=== PATIENT | female | born 1995 | race Caucasian/White ===

== ENCOUNTER 2023-06-13 19:16 | Outpatient (REF) | payer OTHER, SELFPAY ==
[2023-06-19 10:20] LABS: Age Gdln ACOG Testing Note (.); IGP, rfx Aptima HPV ASCU Note (.)
== END 2023-06-13 19:17 | disposition home or self-care (01) ==
LOC: LAB 19:16
PROVIDERS: Visit Provider Obstetrics & Gynecology
DX: Z12.4 Encounter for screening for malignant neoplasm of cervix (principal); Z11.51 Encounter for screening for human papillomavirus (HPV)
CPT/HCPCS: G0145

== ENCOUNTER 2023-06-26 14:54 | Outpatient (OUT) | payer OTHER, SELFPAY ==
[2023-06-28 16:10] LABS: AFP Value 50.2 ng/mL (.); Insulin Dep Diabetes No (.); Maternal Age At EDD 29.8 yr (.); OSBR Risk 1 IN 10000 (.); Results Report (.)
== END 2023-06-26 14:55 | disposition home or self-care (01) ==
PROVIDERS: Visit Provider Obstetrics & Gynecology
DX: Z34.92 Encounter for supervision of normal pregnancy, unspecified, second trimester (principal)
CPT/HCPCS: 36415; 82105

== ENCOUNTER 2023-06-27 13:20 | Outpatient (OUT) | payer OTHER, SELFPAY ==
--- NOTE | 2023-06-27 13:21 | US_ITS ---
[address] [address] Patient Name: PAU GRIDER MRN: [id number] date: 1995 Sex: F Assigned Patient Location: US Current Patient Location: US Accession/Order Number: [id number] Exam Date: 06/27/2023 13:35 Report Date: 06/27/2023 16:06 At the request of: GEO SIERRA Procedure: US OB anatomy EXAMINATION: US OB anatomy, US OB transvaginal HISTORY: SECOND TRIMESER Z34.92 COMPARISON: No relevant comparison available. TECHNIQUE: Transabdominal sonographic examination was performed for obstetrical and evaluation. FINDINGS: Number: 1 Heart Rate: 147.0 bpm H.B. /min Amniotic Fluid Volume: Subjectively normal Placental Location: ANTERIOR with lower margin 3.6 cm from os. Cervix Length: 4 cm , closed. ANATOMY: Normal Structures -cerebellum, choroid plexus, cisterna magna, lateral cerebral ventricles, orbits, midline falx, hard palate, four-chamber heart, stomach, kidneys, bladder, umbilical cord insertion into abdomen, three-vessel cord, cervical spine, thoracic spine, lumbar spine, sacral spine, right upper extremity, left upper extremity, right lower extremity, left lower extremity. SUBOPTIMALLY SEEN: Cardiac outflow tracts. ABNORMALITIES: None BIOMETRY: BPD: 4.2 cm 18 weeks 5 days HC: 16.5 cm 19 weeks 1 days AC: 14.2 cm 19 weeks 4 days FL: 3.0 cm 19 weeks 2 days EFW:288.1 grams; 67% FL/AC: 21.1 FL/BPD: 71.2 HC/AC: 1.2 GESTATIONAL AGE: Age by EDC: 19 weeks 0 days BELL by EDC: 11/21/2023 Age by current US: 19 weeks 1 days BELL by current US: 11/20/2023 US/US OB anatomy IMPRESSION: 1. Single live intrauterine with growth detailed above. 2. Suboptimal visualization of the cardiac outflow tracts. Electronically authenticated by: ROXY TOBIAS Date: 06/27/2023 16:06
--- NOTE | 2023-06-27 13:23 | US_ITS ---
[address] [address] Patient Name: PAU GRIDER MRN: [id number] date: 1995 Sex: F Assigned Patient Location: US Current Patient Location: US Accession/Order Number: [id number] Exam Date: 06/27/2023 13:30 Report Date: 06/27/2023 16:06 At the request of: GEO SIERRA Procedure: US OB transvaginal EXAMINATION: US OB anatomy, US OB transvaginal HISTORY: SECOND TRIMESER Z34.92 COMPARISON: No relevant comparison available. TECHNIQUE: Transabdominal sonographic examination was performed for obstetrical and evaluation. FINDINGS: Number: 1 Heart Rate: 147.0 bpm H.B. /min Amniotic Fluid Volume: Subjectively normal Placental Location: ANTERIOR with lower margin 3.6 cm from os. Cervix Length: 4 cm , closed. ANATOMY: Normal Structures -cerebellum, choroid plexus, cisterna magna, lateral cerebral ventricles, orbits, midline falx, hard palate, four-chamber heart, stomach, kidneys, bladder, umbilical cord insertion into abdomen, three-vessel cord, cervical spine, thoracic spine, lumbar spine, sacral spine, right upper extremity, left upper extremity, right lower extremity, left lower extremity. SUBOPTIMALLY SEEN: Cardiac outflow tracts. ABNORMALITIES: None BIOMETRY: BPD: 4.2 cm 18 weeks 5 days HC: 16.5 cm 19 weeks 1 days AC: 14.2 cm 19 weeks 4 days FL: 3.0 cm 19 weeks 2 days EFW:288.1 grams; 67% FL/AC: 21.1 FL/BPD: 71.2 HC/AC: 1.2 GESTATIONAL AGE: Age by EDC: 19 weeks 0 days BELL by EDC: 11/21/2023 Age by current US: 19 weeks 1 days BELL by current US: 11/20/2023 US/US OB transvaginal IMPRESSION: 1. Single live intrauterine with growth detailed above. 2. Suboptimal visualization of the cardiac outflow tracts. Electronically authenticated by: ROXY TOBIAS Date: 06/27/2023 16:06
== END 2023-06-27 13:21 | disposition home or self-care (01) ==
LOC: US 13:20
PROVIDERS: Visit Provider Obstetrics & Gynecology
DX: Z34.92 Encounter for supervision of normal pregnancy, unspecified, second trimester (principal); Z3A.19 19 weeks gestation of pregnancy
CPT/HCPCS: 76805; 76817

== ENCOUNTER 2023-07-24 13:54 | Outpatient (OUT) | payer OTHER, SELFPAY ==
--- NOTE | 2023-07-24 13:55 | US_ITS ---
The [address] [address] Patient Name: PAU GRIDER MRN: [id number] date: 1995 Sex: F Assigned Patient Location: US Current Patient Location: US Accession/Order Number: [id number] Exam Date: 07/24/2023 14:00 Report Date: 07/24/2023 15:14 At the request of: GEO SIERRA Procedure: US OB incomplete anatomy EXAM: US OB incomplete anatomy HISTORY: ENCOUNTER FOR ANATOMY Z36.2 COMPARISON: Ultrasound OB anatomy 06/27/2023 TECHNIQUE: Percutaneous ultrasound. FINDINGS: Presentation: Cephalic Heart rate: 144 bpm Amniotic fluid: Subjectively normal Anatomy: Four-chamber heart, RVOT, LVOT GA: 22 weeks 6 days BELL: 11/21/2023 US/US OB incomplete anatomy IMPRESSION: 1. Single live intrauterine . 2. Adequate visualization of the four-chamber heart and cardiac outflow tracts; no appreciable abnormality. Electronically authenticated by: ROXY TOBIAS Date: 07/24/2023 15:14
== END 2023-07-24 13:55 | disposition home or self-care (01) ==
LOC: US 13:54
PROVIDERS: Visit Provider Obstetrics & Gynecology
DX: Z36.2 Encounter for other antenatal screening follow-up (principal)
CPT/HCPCS: 76815

== ENCOUNTER 2023-08-15 09:24 | Outpatient (OUT) | payer OTHER, SELFPAY ==
[2023-08-15 11:18] LABS: Basophils Percent Auto 0.2 % (0.2-2.0); Eosinophils Absolute Auto 0.2 10^3/uL (0.0-0.7); Eosinophils Percent Auto 1.5 % (0.9-7.0); Hematocrit 33.8 % (36.0-48.0); Hemoglobin 10.5 g/dL (12.0-16.0); Immature Granulocytes Abs Auto 0.08 10^3/uL (0.00-0.03); Immature Granulocytes Pct Auto 0.7 % (0.0-0.5); Lymphocytes Absolute Auto 1.7 10^3/uL (1.2-3.8); Lymphocytes Percent Auto 15.6 % (20.5-60.0); Mean Corpuscular HGB Conc 31.1 g/dL (29.9-35.2); Mean Corpuscular Hemoglobin 28.4 pg (26.7-34.0); Mean Corpuscular Volume 91.4 fL (81.0-99.0); Mean Platelet Volume 10.6 fL (9.5-13.5); Monocytes Absolute Auto 0.6 10^3/uL (0.3-0.8); Monocytes Percent Auto 5.6 % (1.7-12.0); Neutrophils Absolute Auto 8.3 10^3/uL (1.4-6.5); Neutrophils Percent Auto 76.4 % (43.0-75.0); Platelet Count 272 10^3/uL (150-450); Red Cell Distribution Width 13.1 % (11.0-15.0); White Blood Count 10.9 10^3/uL (4.0-11.0)
[2023-08-15 11:47] LABS: Glucose 1 Hour 113 mg/dL
== END 2023-08-15 09:25 | disposition home or self-care (01) ==
LOC: LAB 09:25
PROVIDERS: Visit Provider Physician Assistant
DX: Z34.92 Encounter for supervision of normal pregnancy, unspecified, second trimester (principal)
CPT/HCPCS: 36415; 82950; 85025; 86850; 86900; 86901

== ENCOUNTER 2023-09-20 13:20 | Observation (INO) | payer OTHER, SELFPAY ==
--- NOTE | 2023-09-20 13:24 | US_ITS ---
[address] [address] Patient Name: PAU GRIDER MRN: [id number] date: 1995 Sex: F Assigned Patient Location: [facility] Current Patient Location: Accession/Order Number: [id number] Exam Date: 09/20/2023 13:32 Report Date: 09/20/2023 14:41 At the request of: GEO SIERRA Procedure: US OB amniotic fluid vol EXAMINATION: US OB amniotic fluid vol HISTORY: leaking fluid COMPARISON: Ultrasound OB incomplete anatomy 07/24/2023 TECHNIQUE: Limited sonographic examination for amniotic fluid volume FINDINGS: Presentation: Cephalic Amniotic fluid volume: 14.5 cm (normal range) Heart rate: 142 bpm GA: 31 weeks 1 day BELL: 11/21/2023 US/US OB amniotic fluid vol IMPRESSION: 1. Single live intrauterine . 2. Normal amniotic fluid volume. Electronically authenticated by: ROXY TOBIAS Date: 09/20/2023 14:41
[2023-09-20 13:36] VITALS: BP 125/68; PULSE 123
[2023-09-20 13:52] LABS: Bilirubin Urine NEGATIVE (NEGATIVE); Blood Urine NEGATIVE (NEGATIVE); Clarity Urine CLEAR (CLEAR); Color Urine LT. YELLOW (YELLOW); Glucose Urine UA NEGATIVE (NEGATIVE); Ketones Urine NEGATIVE (NEGATIVE); Leukocyte Esterase Urine MODERATE (NEGATIVE); Nitrite Urine NEGATIVE (NEGATIVE); Protein Urine NEGATIVE (NEG/TRACE); Specific Gravity Urine 1.015 (1.005-1.025); Urine Microscopic Indicated YES; Urobilinogen Urine 0.2 EU/dL (0.2-1.0)
[2023-09-20 13:58] LABS: Amnisure NEGATIVE (NEGATIVE)
[2023-09-20 14:04] LABS: Bacteria Urine SMALL #/HPF (NONE SEEN); Cast Seen? NONE SEEN #/LPF (NONE SEEN); Crystals Seen? None Seen #/HPF (None Seen); Mucus Urine NONE SEEN (NONE SEEN); RBC Urine 0-2 #/HPF (0-2); Squamous Epithelial Cell Urine MODERATE #/LPF (NONE/RARE); Urine Culture Indicated YES
== END 2023-09-20 14:30 | disposition home or self-care (01) ==
LOC: FBC 13:21
PROVIDERS: Admitting Provider Obstetrics & Gynecology; Visit Provider Obstetrics & Gynecology
DX: Z03.71 Encounter for suspected problem with amniotic cavity and membrane ruled out (principal); Z3A.31 31 weeks gestation of pregnancy
CPT/HCPCS: 59025; 76815; 81001; 84112; 87086; G0378; G0379

== ENCOUNTER 2023-09-25 13:02 | Outpatient (OUT) | payer OTHER, SELFPAY ==
--- NOTE | 2023-09-25 13:04 | US_ITS ---
[address] [address] Patient Name: PAU GRIDER MRN: [id number] date: 1995 Sex: F Assigned Patient Location: US Current Patient Location: US Accession/Order Number: [id number] Exam Date: 09/25/2023 13:04 Report Date: 09/25/2023 20:58 At the request of: GEO SIERRA Procedure: US OB growth PROCEDURE: US OB growth HISTORY: SIZE INCONSISTENT WITH DATES COMPARISON: None. TECHNIQUE: Transabdominal sonographic examination was performed for obstetrical and evaluation. FINDINGS: Number: 1 Heart Rate: 136.0 bpm H.B. /min Amniotic Fluid Volume: 12.3 cm, largest pocket 3.6 cm position: Cephalic presentation, longitudinal lie Placental Location: Anterior BIOMETRY: BPD: 8.2 cm 33 weeks 0 days , 74% HC: 30.4 cm 33 weeks 5 days, 65% AC:29.2 cm 33 weeks 2 days , 84% FL: 6.2 cm 32 weeks 2 days , 47% EFW: 2088.0 grams 4 lbs. 10 oz., 75% FL/AC: 21.3 FL/BPD: 75.9 HC/AC: 1.0 GESTATIONAL AGE: Age by EDC: 31 weeks 6 days BELL by EDC: 11/21/2023 Ultrasound Age: 33 weeks 1 days Ultrasound BELL: 11/12/2023 US/US OB growth IMPRESSION: Normal interval growth *Reference: [facility] Practice Guideline for the performance of Obstetric Ultrasound Examinations, August 26, 2007. Electronically authenticated by: AMNA VALLADARES Date: 09/25/2023 20:58
== END 2023-09-25 13:03 | disposition home or self-care (01) ==
LOC: US 13:02
PROVIDERS: Visit Provider Obstetrics & Gynecology
DX: O26.843 Uterine size-date discrepancy, third trimester (principal); Z3A.33 33 weeks gestation of pregnancy
CPT/HCPCS: 76816

== ENCOUNTER 2023-10-16 13:20 | Outpatient (OUT) | payer OTHER, SELFPAY ==
--- NOTE | 2023-10-16 13:23 | US_ITS ---
[address] [address] Patient Name: PAU GRIDER MRN: [id number] date: 1995 Sex: F Assigned Patient Location: US Current Patient Location: US Accession/Order Number: [id number] Exam Date: 10/16/2023 13:23 Report Date: 10/16/2023 15:31 At the request of: GEO SIERRA Procedure: US OB growth EXAMINATION: US OB growth HISTORY: SIZE INCONSISTENT WITH DATES COMPARISON: Ultrasound OB growth 09/25/2023 FINDINGS: Heart Rate: 145.0 bpm Number: 1.0 Position: CEPHALIC Amniotic Fluid Volume: 13.3 cm Maximum Vertical Pocket: 5.7 cm BIOMETRY: BPD: 8.8 cm cm; 35 weeks 3 days; 69% HC: 32.1 cmcm; 36 weeks 1 days ; 49% AC: 33.1 cm cm; 37 weeks 0 days; 96% FL: 6.9 cm cm; 35 weeks 2 days; 55% EFW: 2906.4 grams; 85% FL/AC: 20.8 FL/BPD: 78.4 HC/AC: 1.0 GESTATIONAL AGE: Age by EDC: 34 weeks 6 days BELL by EDC: 11/21/2023 Age by US: 36 weeks 0 days BELL by US: 11/13/2023 US/US OB growth IMPRESSION: 1. Single live intrauterine with growth detailed above. Electronically authenticated by: ROXY TOBIAS Date: 10/16/2023 15:31
== END 2023-10-16 13:21 | disposition home or self-care (01) ==
LOC: US 13:20
PROVIDERS: Visit Provider Obstetrics & Gynecology
DX: O26.843 Uterine size-date discrepancy, third trimester (principal); Z3A.34 34 weeks gestation of pregnancy
CPT/HCPCS: 76816

== ENCOUNTER 2023-10-24 19:47 | Outpatient (REF) | payer OTHER, SELFPAY | END 2023-10-24 19:48 | disposition home or self-care (01) | LOC: LAB 19:47 | PROVIDERS: Visit Provider Obstetrics & Gynecology | DX: Z34.93 Encounter for supervision of normal pregnancy, unspecified, third trimester (principal) | CPT/HCPCS: 87081 ==

== ENCOUNTER 2023-10-27 13:00 | Observation (INO) | payer OTHER, SELFPAY ==
[2023-10-27 13:15] VITALS: BP 111/63; PULSE 120
--- NOTE | 2023-10-27 15:16 | P.OBPN_ITS ---
OB - PN: Subj Subjective Patient comments: other (STATES HAVING CONTRACTIONS HOWEVER NOT PAINFUL. HAD RECENT INTERCOURSE) Exam Constitutional Vital Signs, click to edit/add: Last Vital Signs Pulse 120 H 10/27/23 13:15 BP 111/63 10/27/23 13:15 Documenting provider has reviewed patient's vital signs: yes Common normals: no apparent distress and oriented x3 General appearance: comfortable HENMT Common normals: normocephalic and head/scalp atraumatic Eye Pupil: PERRL and accommodation reflex normal Neck & C-Spine Common normals: full ROM and supple Respiratory Common normals: normal respiratory effort Cardio Common normals: regular rate and regular rhythm GI Common normals: Normal to inspection, nondistended, normoactive bowel sounds present, soft to palpation and non-tender Common normals: no CVA tenderness Extremity Common normals: normal to inspection, full ROM and no calf tenderness Neuro Common normals: CN's II-XII intact bilaterally Sensorium/orientation: oriented to person, oriented to place and oriented to time Psych Common normals: mental status grossly normal, thought process normal, cooperative and affect normal OB - PN: A/P Assessment and Plan (1) and not yet delivered: Assessment and Plan: PRIOR CS, 36.6 WEEKS, TRIAGE PATIENT FOR CONTRACTIONS, HISTORY OF CS, PLANS REPEAT CS AT [address] SIERRA, HAD RECENT INTERCOURSE, CERVIX NOT CHANGING (2) Irregular contractions: Assessment and Plan: AWAITING URINALYSIS RESULTS, CONTRACTIONS IRREGULAR AND NOT PAINFUL AND NOT CHANGING CERVIX. FHR REASSURRING Plan EXPLAINED THE ETIOLOGY OF CONTRACTIONS WHEN NOT RELATED TO LABOR. WILL IV HYDRATE AND GIVE TERBUTALINE 20 MCG TIMES TWO 20 MIN APART. LIKELY CONTRACTIONS FROM RECENT INTERCOURSE HOWEVER NOT CHANGING CERVIX. WILL TREAT RESULTS OF URIN ALYSIS INDICATED. WILL SEND HOME IF CONTRACTIONS LESS THAN 6 IN ONE HOUR Time Spent with Patient Time: Total time spent is greater than 50% in coordination of care (as documented) at patient's floor/unit and/or counseling patient: Total time spent with greater than 50% in coordination of care (as documented) at patient's floor/unit and/or counseling patient: less than 15 minutes
[2023-10-27] MEDS: 0.9 % SODIUM CHLORIDE 1,000 ML 999 ML IV (15:28)
[2023-10-27] MEDS: TERBUTALINE SULFATE 1 MG/ML VIAL 0.25 MG SUBQ (15:30)
--- NOTE | 2023-10-27 15:36 | PC.NURSE ---
1515: Dr Metcalf at bedside and talks with patient and significant other about plan of care. Patient admits to intercourse last night and orders received from physician and reviewed with patient. 1525: IV started on 1st attempt in left AC and 1000 ml NS infusing at 999 ml/hr per infusion pump. 1530: Terbutaline 0.25mg sq right arm. 1538: up to bathroom and voids.
[2023-10-27 16:03] VITALS: BP 132/69; PULSE 125
--- NOTE | 2023-10-27 16:12 | PC.NURSE ---
1555: patient refuses subsequent doses of terbutaline and HR 125- not given.
== END 2023-10-27 17:20 | disposition home or self-care (01) ==
PROVIDERS: Admitting Provider Obstetrics & Gynecology; Visit Provider Obstetrics & Gynecology
DX: O47.9 False labor, unspecified (principal); Z3A.00 Weeks of gestation of pregnancy not specified
CPT/HCPCS: 59025; 96372; G0378; G0379

== ENCOUNTER 2023-11-02 12:50 | Inpatient (IN) | payer OTHER, SELFPAY ==
[2023-11-02] VITALS (33 sets, daily range): BP systolic 102–145; BP diastolic 56–80; PULSE 79–141; RESP 14–23; TEMP 36.2–36.8; O2SAT 96–100
[2023-11-02 13:25] LABS: Bilirubin Urine NEGATIVE (NEGATIVE); Blood Urine NEGATIVE (NEGATIVE); Clarity Urine SL CLOUDY (CLEAR); Color Urine LT. YELLOW (YELLOW); Glucose Urine UA 100 mg/dL (NEGATIVE); Ketones Urine NEGATIVE (NEGATIVE); Leukocyte Esterase Urine MODERATE (NEGATIVE); Nitrite Urine NEGATIVE (NEGATIVE); Protein Urine NEGATIVE (NEG/TRACE); Specific Gravity Urine <=1.005 (1.005-1.025); Urobilinogen Urine 0.2 EU/dL (0.2-1.0)
[2023-11-02 13:28] LABS: Urine Microscopic Indicated YES
[2023-11-02 13:33] LABS: Bacteria Urine MODERATE #/HPF (NONE SEEN); Cast Seen? NONE SEEN #/LPF (NONE SEEN); Crystals Seen? None Seen #/HPF (None Seen); Mucus Urine NONE SEEN (NONE SEEN); RBC Urine 0-2 #/HPF (0-2); Squamous Epithelial Cell Urine MODERATE #/LPF (NONE/RARE); Urine Culture Indicated YES; WBC Urine 20-50 #/HPF (NONE SEEN)
[2023-11-02 13:50] LABS: Amphetamine Screen Urine NEGATIVE (NEGATIVE); Barbiturates Screen Urine NEGATIVE (NEGATIVE); Benzodiazepines Screen Urine NEGATIVE (NEGATIVE); Buprenorphine Screen Urine NEGATIVE (NEGATIVE); Cannabinoid Screen Urine NEGATIVE (NEGATIVE); Cocaine Screen Urine NEGATIVE (NEGATIVE); Methadone Screen Urine NEGATIVE (NEGATIVE); Methamphetamines Screen Urine NEGATIVE (NEGATIVE); Opiate Screen Urine NEGATIVE (NEGATIVE); Oxycodone Screen Urine NEGATIVE (NEGATIVE); Phencyclidine Screen Urine NEGATIVE (NEGATIVE); Tricyclic Antidepressant Urine NEGATIVE (NEGATIVE)
[2023-11-02 14:03] LABS: Basophils Percent Auto 0.2 % (0.2-2.0); Eosinophils Percent Auto 0.2 % (0.9-7.0); Hematocrit 35.5 % (36.0-48.0); Hemoglobin 11.1 g/dL (12.0-16.0); Immature Granulocytes Abs Auto 0.06 10^3/uL (0.00-0.03); Immature Granulocytes Pct Auto 0.5 % (0.0-0.5); Lymphocytes Absolute Auto 1.9 10^3/uL (1.2-3.8); Lymphocytes Percent Auto 15.3 % (20.5-60.0); Mean Corpuscular HGB Conc 31.3 g/dL (29.9-35.2); Mean Corpuscular Hemoglobin 25.9 pg (26.7-34.0); Mean Corpuscular Volume 82.8 fL (81.0-99.0); Mean Platelet Volume 10.9 fL (9.5-13.5); Monocytes Absolute Auto 0.6 10^3/uL (0.3-0.8); Monocytes Percent Auto 5.2 % (1.7-12.0); Neutrophils Absolute Auto 9.5 10^3/uL (1.4-6.5); Neutrophils Percent Auto 78.6 % (43.0-75.0); Platelet Count 302 10^3/uL (150-450); Red Blood Count 4.29 10^6/uL (4.20-5.40); Red Cell Distribution Width 14.6 % (11.0-15.0); White Blood Count 12.1 10^3/uL (4.0-11.0)
[2023-11-02] MEDS: 0.9 % SODIUM CHLORIDE 1,000 ML 1000 ML IV (14:08)
[2023-11-02] MEDS: CITRIC ACID/SODIUM CITRATE 30 ML SOLUTION ORACIT SHOHL'S SOLN PO (14:09)
[2023-11-02] MEDS: FAMOTIDINE/PF 20 MG/2 ML VIAL IV (14:10)
[2023-11-02] MEDS: METOCLOPRAMIDE HCL 10 MG/2 ML VIAL IVP (14:10)
[2023-11-02] MEDS: CEFAZOLIN SODIUM/DEXTROSE,ISO 2 GM/50 ML PIGGYBACK IV ×2 (14:16→21:01)
[2023-11-02] MEDS: LACTATED RINGER'S SOLUTION 1,000 ML 50 ML IV (15:04)
--- NOTE | 2023-11-02 15:18 | PM.ONB ---
Brief Operative Note Date of procedure: 11/02/23 Pre-op diagnosis: iup at 37 3/7wks, previous c/s, active labor Post-op diagnosis: same as pre-op Procedure: NAME OF PROCEDURE: [ section ] PROCEDURE: Patient was taken back to the Operating Room where she was given a spinal anesthesia with Duramorph without difficulty. She was prepped and draped in the normal sterile fashion. A Pfannenstiel skin incision was then made 2 cm above the symphysis pubis and carried down to underlying rectus fascia using a Bovie. The fascia was incised in the midline and extended laterally using Page scissors. Two Isabel clamps were placed on the superior aspect of the fascia and dissected off the underlying rectus muscles. The same was performed on the inferior aspect as well. The muscles were then in the midline. Peritoneum was identified and entered bluntly. The peritoneum was then extended superiorly and inferiorly with good visualization of the bladder. The bladder blade was inserted. A low transverse incision was made on the patient's uterus and extended laterally digitally. The infant was then delivered atraumatically after the bladder blade was removed in the cephalic position. The cord was clamped and cut. Cord blood was obtained. The infant was handed off to awaiting team. The patient's placenta was spontaneously delivered. The uterus was then exteriorized. The uterus was cleared of all clots and debris. The bladder blade was reinserted. The patient's uterine incision was closed using #0 Vicryl in a running lock fashion. Excellent hemostasis was assured. The uterus was then returned to the patient's abdomen. The patient's abdomen was copiously irrigated using warm saline. Peritoneal gutters were cleared of all clots and debris. Again excellent hemostasis was assured. The patient's peritoneum was closed using 3-0 Vicryl in a running fashion. The patient's fascia was closed using #0 Vicryl in a running fashion. The patient's skin was closed using 4-0 Vicryl subcuticularly. The patient tolerated the procedure well. Sponge, lap, and needle counts were correct x2. The patient was taken to the Recovery Room in stable condition. Anesthesia: spinal Surgeon: Clyde Nelson Grain Cleaner And Transfer Operator: Homa Hsieh Estimated blood loss (mL): 600 Pathology: none sent Condition: stable Disposition: floor
--- NOTE | 2023-11-02 15:24 | P.OBPRC_ITS ---
Procedure Pre-op/Post-op diagnoses: Pre-Op/Post-Op Diagnoses Operation Date: 11/02/23 14:30 <No data on this case meets the specified criteria> Procedure: Procedures Operation Date: 11/02/23 14:30 Actual Procedure Side Surgeon p Not Applicable Clyde Nelson DO Correctional Therapy Teacher: Homa Hsieh Estimated blood loss (mL): 575 Disposition: PACU Anesthesia type: Spinal
[2023-11-02] MEDS: BUPIVACAINE HCL 0.5% PF 50 MG/10 ML VIAL 20 ML INJ (15:36)
[2023-11-02] MEDS: OXYTOCIN/0.9 % SODIUM CHLORIDE 20 UNITS/1,000 ML PLAST..BAG 200 UNIT IV (16:06)
--- NOTE | 2023-11-02 18:02 | PC.NURSE ---
Valentine catheter placed in OR per OR staff.
[2023-11-02] MEDS: KETOROLAC TROMETHAMINE 30 MG/ML VIAL IVP (18:12)
--- NOTE | 2023-11-02 20:54 | PC.NURSE ---
1918- OB care provider notified of pt request for medications for anxiety. orders for 20mg Celexa PO daily given. orders confirmed and read back.
[2023-11-03] VITALS (8 sets, daily range): BP systolic 106–135; BP diastolic 72–88; PULSE 86–101; RESP 16–18; TEMP 36.5–37.2; O2SAT 100
[2023-11-03] MEDS: KETOROLAC TROMETHAMINE 30 MG/ML VIAL IVP ×2 (00:10→06:35)
[2023-11-03 06:04] LABS: Basophils Percent Auto 0.2 % (0.2-2.0); Eosinophils Absolute Auto 0.1 10^3/uL (0.0-0.7); Eosinophils Percent Auto 0.4 % (0.9-7.0); Hematocrit 28.9 % (36.0-48.0); Hemoglobin 8.8 g/dL (12.0-16.0); Immature Granulocytes Abs Auto 0.12 10^3/uL (0.00-0.03); Immature Granulocytes Pct Auto 0.7 % (0.0-0.5); Lymphocytes Absolute Auto 3.4 10^3/uL (1.2-3.8); Lymphocytes Percent Auto 18.4 % (20.5-60.0); Mean Corpuscular HGB Conc 30.4 g/dL (29.9-35.2); Mean Corpuscular Hemoglobin 25.7 pg (26.7-34.0); Mean Corpuscular Volume 84.3 fL (81.0-99.0); Mean Platelet Volume 10.8 fL (9.5-13.5); Monocytes Absolute Auto 1.6 10^3/uL (0.3-0.8); Monocytes Percent Auto 8.9 % (1.7-12.0); Neutrophils Percent Auto 71.4 % (43.0-75.0); Platelet Count 291 10^3/uL (150-450); Red Blood Count 3.43 10^6/uL (4.20-5.40); Red Cell Distribution Width 14.6 % (11.0-15.0); White Blood Count 18.2 10^3/uL (4.0-11.0)
[2023-11-03] MEDS: DOCUSATE SODIUM 100 MG CAPSULE PO ×2 (08:42→21:09)
--- NOTE | 2023-11-03 11:14 | PM.OBPN ---
OB - PN: Subj Subjective Patient comments: no complaints and pain well controlled [place] status: doing well Exam Constitutional Vital Signs, click to edit/add: Last Vital Signs Temp 98.5 F 11/03/23 05:45 Pulse 86 11/03/23 05:45 Resp 16 11/03/23 08:45 BP 126/86 11/03/23 08:44 Pulse Ox 100 11/03/23 08:45 O2 Del Method Room Air 11/03/23 08:45 Documenting provider has reviewed patient's vital signs: yes Common normals: no apparent distress Respiratory Common normals: normal respiratory effort and clear to auscultation bilaterally Cardio Common normals: regular rate and regular rhythm GI Common normals: Normal to inspection, nondistended, normoactive bowel sounds present Extremity Common normals: no calf tenderness Results Labs Labs: Short CBC 11/02/23 11/03/23 Range/Units 13:56 05:56 WBC 12.1 H 18.2 H (4.0-11.0) 10^3/uL Hgb 11.1 L 8.8 L (12.0-16.0) g/dL Hct 35.5 L 28.9 L (36.0-48.0) % Plt Count 302 291 (150-450) 10^3/uL Urine 11/02/23 Range/Units 12:55 Urine Color Lt. yellow (YELLOW) Urine Clarity Sl cloudy (CLEAR) Urine pH 6.0 (5.0-9.0) Ur Specific [place] <=1.005 A (1.005-1.025) Urine Protein Negative (NEG/TRACE) mg/dL Urine Glucose (UA) 100 A (NEGATIVE) mg/dL OB - PN: A/P Plan - day: 1 Plan: routine postop care Time Spent with Patient Time: Total time spent is greater than 50% in coordination of care (as documented) at patient's floor/unit and/or counseling patient: Total time spent with greater than 50% in coordination of care (as documented) at patient's floor/unit and/or counseling patient: less than 15 minutes
[2023-11-03] MEDS: IBUPROFEN 400 MG TABLET 800 MG PO ×2 (13:15→21:09)
--- NOTE | 2023-11-03 18:57 | RESP.RT ---
done per nursing
--- NOTE | 2023-11-03 19:07 | PC.NURSE ---
Report given to Prema Ibarra RN
[2023-11-03] MEDS: ACETAMINOPHEN 500 MG TABLET 1000 MG PO (22:49)
[2023-11-04] MEDS: IBUPROFEN 400 MG TABLET 800 MG PO ×2 (05:32→13:22)
[2023-11-04] MEDS: DOCUSATE SODIUM 100 MG CAPSULE PO (08:17)
[2023-11-04] MEDS: ACETAMINOPHEN 500 MG TABLET 1000 MG PO (10:05)
[2023-11-04 10:31] VITALS: BP 119/75; RESP 18; TEMP 36.6; O2SAT 100
--- NOTE | 2023-11-04 12:06 | P.OBPN_ITS ---
OB - PN: Subj Subjective Patient comments: no complaints and pain well controlled [place] status: doing well Exam Constitutional Vital Signs, click to edit/add: Last Vital Signs Temp 97.9 F 11/04/23 10:31 Pulse 101 H 11/03/23 22:39 Resp 18 11/04/23 10:31 BP 119/75 11/04/23 10:31 Pulse Ox 100 11/04/23 10:31 O2 Del Method Room Air 11/04/23 10:31 Documenting provider has reviewed patient's vital signs: yes Common normals: no apparent distress Respiratory Common normals: normal respiratory effort and clear to auscultation bilaterally Cardio Common normals: regular rate and regular rhythm GI Common normals: Normal to inspection, nondistended, normoactive bowel sounds present Extremity Common normals: normal to inspection and no calf tenderness OB - PN: A/P Plan - day: 2 Plan: routine postop care, discharge home and follow up 6 weeks Time Spent with Patient Time: Total time spent is greater than 50% in coordination of care (as documented) at patient's floor/unit and/or counseling patient: Total time spent with greater than 50% in coordination of care (as documented) at patient's floor/unit and/or counseling patient: less than 15 minutes
--- NOTE | 2023-11-09 | DS_ITS ---
DISCHARGE DATE: 11/09/2023 PRIMARY DIAGNOSES: 1. Intrauterine at 37 3/7 weeks. 2. Previous . 3. Active labor. PROCEDURE: section. HOSPITAL COURSE: As expected. Please see chart for full details. LABORATORY DATA: Please see chart. COMPLICATIONS: None. DISCHARGE CONDITION: Stable. CONSULTATION: Anesthesia. DISCHARGE INSTRUCTIONS: 1. Diet: Regular. 2. Medications: a. Percocet 5/325 one to two p.o. every 4-6 hours p.r.n. pain. b. Motrin 800 one p.o. every 8 hours p.r.n. pain. 3. Followup in one week. Restrictions: Pelvic rest for 6 weeks. No heavy lifting[address] May drive when pain free and no longer on narcotics. MTDD
== END 2023-11-04 14:00 | disposition home or self-care (01) | DRG 540 ==
PROVIDERS: Admitting Provider Obstetrics & Gynecology; Visit Provider Obstetrics & Gynecology
PROC: 10D00Z1 Extraction of Products of Conception, Low, Open Approach (ICD-10-PCS; CPT 59514; principal; 2023-11-02 14:30)
DX: O34.211 Maternal care for low transverse scar from previous cesarean delivery (principal); O75.82 Onset (spontaneous) of labor after 37 completed weeks of gestation but before 39 completed weeks gestation, with delivery by (planned) cesarean section; Z3A.37 37 weeks gestation of pregnancy; Z37.0 Single live birth; O99.344 Other mental disorders complicating childbirth; F41.9 Anxiety disorder, unspecified; F32.A Depression, unspecified
CPT/HCPCS: 36415; 59025; 59050; 80307; 81001; 85025; 86850; 86900; 86901; 87086; 94667; 96374; 96375; 96376

== ENCOUNTER 2024-04-07 14:25 | Outpatient (RCR) | payer OTHER, SELFPAY ==
[2024-04-07 16:08] LABS: HCG Quantitative <1 mIU/mL
[2024-04-09 13:55] LABS: HCG Quantitative <1 mIU/mL
== END 2024-04-25 08:43 | disposition home or self-care (01) ==
LOC: LAB 14:25
PROVIDERS: PCP Family Medicine; Visit Provider Obstetrics & Gynecology
DX: N92.6 Irregular menstruation, unspecified (principal)
CPT/HCPCS: 36415; 84702

== ENCOUNTER 2024-04-09 11:39 | Outpatient (OUT) | payer OTHER, SELFPAY ==
--- NOTE | 2024-04-09 11:44 | US_ITS ---
[address] [address] Patient Name: PAU GRIDER MRN: [id number] date: 1995 Sex: F Assigned Patient Location: [facility] Current Patient Location: LAB Accession/Order Number: [id number] Exam Date: 04/09/2024 11:45 Report Date: 04/09/2024 13:22 At the request of: GEO SIERRA Procedure: US pelvis transvaginal EXAMINATION: US pelvis transvaginal HISTORY: MISSED MENSES COMPARISON: No relevant comparison available. FINDINGS: Transvaginal images No intrauterine or ectopic The uterus is normal in size, contour and myometrial echotexture measuring 10.1 x 4.2 x 8.0 cm. No focal myometrial mass The right ovary is normal in appearance measuring 3.2 x 1.8 x 2.7 cm. Normal color flow The left ovary is not visualized No free fluid US/US pelvis transvaginal IMPRESSION: Nonvisualization of the left ovary No intrauterine or ectopic in the visualized pelvis Electronically authenticated by: AMNA VALLADARES Date: 04/09/2024 13:22
--- OUTSIDE RECORDS SUMMARY | 2024-04-09 11:59 | XMS_ITS | CCD ---
Author Organization [facility] Care Team Providers Care Speech And Language Tutor Name Role Phone Unavailable Primary Care Provider Unavailabl e POOL, REMA E Attending Unavailable POOL, REMA E Admitting Unavailable OBRIEN, CONCETTA WELLS Admitting Unavailabl e OBRIEN, CONCETTA WELLS Attending Unavailabl e OBRIEN, CONCETTA WELLS Attending Unavailabl e OBRIEN, CONCETTA WELLS Admitting Unavailabl e ALIDA ALCALA Attending Unavailable CAITIE, CHANELL Attending Unavailable JOANN, XENA Attending Unavailable STAR NÚÑEZ Attending Unavailable FREDC, DR ALLRED Primary Care Unavailable BELLA, DR CARMELA Templeton Admitting Unavailabl e REINECK, DR CARMELA Templeton Attending Unavailabl e GRECHNY ., MEÑO BAUTISTA Consulting Unavailabl e MARKER ., DR LUA Admitting Unavailable MARKER ., DR LUA Attending Unavailable MARKER ., DR LUA Consulting Unavailable MISC, DR ALLRED Primary Care Unavailable JANICE KAUFMAN Consulting Unavailable REQUEST, NONE LISTED Primary Care Unavaila ble RIGO ., DR GUARDADO Admitting Unavailable RIGO ., DR GUARDADO Attending Unavailable REQUEST, NONE LISTED Primary Care Unavaila ble RIGO ., DR GUARDADO Consulting Unavailable RIGO ., DR GUARDADO Admitting Unavailable RIGO ., DR GUARDADO Attending Unavailable MISC, DR ALLRED Primary Care Unavailable RIGO ., DR GUARDADO Admitting Unavailable RIGO ., DR GUARDADO Attending Unavailable RIGO ., DR GUARDADO Consulting Unavailable MISC, DR ALLRED Primary Care Unavailable RIGO ., DR GUARDADO Admitting Unavailable RIGO ., DR GUARDADO Attending Unavailable RIGO ., DR GUARDADO Consulting Unavailable MISC, DR ALLRED Primary Care Unavailable RIGO ., DR GUARDADO Admitting Unavailable RIGO ., DR GUARDADO Attending Unavailable VALERA, DR AMNA Ames Consulting Unavailable RIGO ., DR GUARDADO Consulting Unavailable REQUEST, DR NONE LISTED Primary Care Unavaila ble RIGO ., DR GUARDADO Admitting Unavailable RIGO ., DR GUARDADO Attending Unavailable REQUEST, DR NONE LISTED Primary Care Unavaila ble RIGO ., DR GUARDADO Consulting Unavailable RIGO ., DR GUARDADO Admitting Unavailable RIGO ., DR GUARDADO Attending Unavailable RIGO ., DR GUARDADO Consulting Unavailable REQUEST, DR NONE LISTED Primary Care Unavaila ble RIGO ., DR GUARDADO Admitting Unavailable RIGO ., DR GUARDADO Attending Unavailable ZIEBER, DR ROXY Thomas Consulting Unavailable REQUEST, DR NONE LISTED Consulting Unavaila ble PAY ., DR ACUNA Admitting Unavailable REQUEST, NONE LISTED Primary Care Unavaila ble PAY ., DR ACUNA Attending Unavailable PAY ., DR ACUNA Consulting Unavailable LEIF, MARYCRUZ Consulting Unavailable JEANETH, ANANT Consulting Unavailable BLAINE, DR AMNA Ames Consulting Unavailable MARIO ., ARSH Admitting Unavailable MARIO ., ARSH Attending Unavailable [facility] [place] Primary Care Unavailable MARIO ., ARSH Consulting Unavailable RIGO, GEO Attending Unavailable JYOTHI, SINA Attending Unavailable MIGUEL CARBONE Attending Unavailable RIGO, GEO Attending Unavailable JYOTHI, SINA Attending Unavailable RIGO, GEO Attending Unavailable RIGO, GEO Attending Unavailable RIGO, GEO Attending Unavailable JYOTHI, SINA Attending Unavailable Allergies Allergy Classification Reported Allergen(s) Allergy Type Date of Onset Reaction(s) Facility Latex (5 sources) Latex Substance Allergy 1 [facility] (1 source) Latex Propensity to adverse reactions to drug [address] [facility] Work Phone: (1 source) Latex Drug allergy (disorder) [facility] Repository Medications Current Medications Medication Drug Class(es) Dates Sig (Normalized) Sig (Original) Calcium Carbonate Antacid (TUMS PO) (5 sources) Calcium Carbonat e Antacid (TUMS PO) Take by mouth 0 Active calcium chloride 0.0014 meq/ml / potassium chloride 0.004 meq/ml / sodium chloride 0.103 meq/ml / sodium lactate 0.028 meq/ml injectable solution (1 source) Start: 05-18-2021 lactated ringers infusion cephalexin 500 mg oral capsule (3 sources) Cephalosporin Antibacterial Start: 02-28-2021 End: 03-07-2021 take 1 capsule by mouth three times daily cephALEXin (KEFLEX) 500 MG capsule Take 1 capsule by mouth 3 times daily for 7 days 21 capsule 0 02/28/2021 03/07/2021 Active take 1 capsule by mouth twice da kaila cephALEXin (KEFLEX) 500 MG capsule Take 500 mg by mouth 2 times daily 0 Active 2 ml famotidine 10 mg/ml injection (1 source) Histamine-2 Receptor Antagonist Start: 04-14-2021 End: 04-14-2021 famotidine (PEPCID) injection 20 mg Start: 04-14-2021 End: 04-14-2021 famotidine (PEPCID) injectio n 20 mg Vit-Fe Fumarate-FA ( VITAMIN PO) (5 sources) take 1 tablet by mouth once daily Vit-Fe Fumarate-FA ( VITAMIN PO) Take 1 tablet by mouth daily 0 Active 1 ml promethazine hydrochloride 25 mg/ml injection (1 source) Phenothiazine Start: 04-14-2021 End: 04-14-2021 promethazine (PHENERGAN) injection 12.5 mg Start: 04-14-2021 End: 04-14-2021 promethazine (PHENERGAN) inj ection 12.5 mg 50 ml sodium chloride 9 mg/m l injection (1 source) Start: 04-14-2021 End: 04-14-2021 0.9 % sodium chloride bolus Start: 04-14-2021 End: 04-14-2021 0.9 % sodium chloride bolus Completed/Discontinued Medications Medication Drug Class(es) Dates Sig (Normalized) Sig (Original) acetaminophen 500 mg oral tablet (1 source) Start: 05-18-2021 End: 05-18-2021 acetaminophen (TYLENOL) tablet 1,000 mg ceFAZolin 2000 mg injection (1 source) Cephalosporin Antibacterial Start: 05-18-2021 End: 05-18-2021 ceFAZolin (ANCEF) 2000 mg in dextrose 3 % 50 mL IVPB (duplex) 2 ml ondansetron 2 mg/ml injection (1 source) Serotonin-3 Receptor Antagonist Start: 05-18-2021 End: 05-18-2021 ondansetron (ZOFRAN) injection 4 mg Problems Active Problems Problem Classification Problem Date Documented Da te Episodic/Chronic Abdominal pain (7 sources) Abdominal pain; Translations: [Unspecified abdominal pain] Onset: 07-06-2022 Episodic Anxiety disorders (1 source) Anxiety disorder, unspecified; Translations: [ANXIETY DISORDER UNSPECIFIED] Onset: 10-11-2022 Chronic Esophageal disorders (1 source) Gastro-esophageal reflux disease without esophagitis; Translations: [GERD WITHOUT ESOPHAGITIS] Onset: 10-11-2022 Chronic Menstrual disorders (5 sources) Irregular menstruation, unspecified; Translations: [IRREGULAR MENSTRUATION UNSPECIFIED] Onset: 04-06-2023 Chronic Other complications of (1 source) Nausea and vomiting; Translations: [Vomiting of , unspecified] Episodic Other complications of (3 sources) Reduced movement; Translations: [Decreased movements, unspecified trimester, not applicable or unspecified] Onset: 05-24-2021 Episodic Other complications of (3 sources) Other specified related conditions, first trimester; Translations: [OTH SPEC PREG RELATED COND 1ST TRI] Onset: 04-13-2023 Episodic Other complications of (1 source) related conditions, unspecified, first trimester; Translations: [ RELATED COND UNS 1ST TRI] Onset: 04-16-2023 Episodic Other connective tissue disease (1 source) Swelling of lower limb; Translations: [Other specified soft tissue disorders] Episodic Other and delivery including normal (6 sources) Intrauterine ; Translations: [Encounter for supervision of other normal , first trimester] Onset: 04-16-2023 Episodic Residual codes; unclassified (1 source) 8 weeks gestation of ; Translations: [8 WEEKS GESTATION OF ] Onset: 04-16-2023 Episodic Past or Other Problems Problem Classification Problem Date Documented Da te Episodic/Chronic Hemorrhage during ; abruptio placenta; placenta previa (3 sources) Hemorrhage in early , unspecified; Translations: [HEMORRHAGE EARLY UNS] Onset: 10-13-2022 Episodic Immunizations and screening for infectious disease (1 source) Encounter for screening for human papillomavirus (HPV); Translations: [ENC SCREENING HUMAN PAPILLOMAVIRUS] Onset: 07-06-2022 Episodic Nonspecific chest pain (4 sources) Chest pain, unspecified; Translations: [CHEST PAIN UNSPECIFIED] Onset: 10-09-2022 Episodic Other complications of (1 source) Other specified related conditions, unspecified trimester; Translations: [OTH SPEC PREG RELATED COND UNS TRI] Onset: 10-11-2022 Episodic Other complications of (1 source) Unspecified infection of urinary tract in , unspecified trimester; Translations: [UNS INF URINARY TRACT PREG UNS TRI] Onset: 10-11-2022 Episodic Other complications of (1 source) Other mental disorders complicating , unspecified trimester; Translations: [OTH MENTAL D/O COMP PREG UNS TRI] Onset: 10-11-2022 Episodic Other complications of (1 source) Diseases of the digestive system complicating , unspecified trimester; Translations: [DZ DIGESTIVE SYS COMP PREG UNS TRI] Onset: 10-11-2022 Episodic Other gastrointestinal disorders (1 source) Constipation, unspecified; Translations: [CONSTIPATION UNSPECIFIED] Onset: 09-15-2022 Episodic Other screening for suspected conditions (not mental disorders or infectious disease) (5 sources) Encounter for test, result negative; Translations: [Encounter for screening for malignant neoplasm of cervix] Onset: 07-04-2022 Episodic Ovarian cyst (5 sources) Unspecified ovarian cyst, unspecified side; Translations: [Unspecified ovarian cyst, left side] Onset: 07-06-2022 Episodic Residual codes; unclassified (1 source) Weeks of gestation of not specified; Translations: [WEEKS GESTATION NOT SPEC] Onset: 10-11-2022 Episodic Spontaneous (1 source) Complete or unspecified spontaneous without complication; Translations: [COMPLETE/UNS SPONT AB W/O COMP] Onset: 10-16-2022 Episodic Urinary tract infections (2 sources) Urinary tract infectious disease; Translations: [Urinary tract infection, site not specified] Onset: 10-11-2022 Episodic Results Test Name Value Interpretation Reference Range Facility HEP B SURFACE ANTIGEN SCREEN on 04-18-2023 HBsAg Screen Negative Normal Negative [facility] Comment on above: Performed By: #### H BSANS #### [facility] [address] [address] [address] Josh Jacinto HEPATITIS C VIRUS AB W/ REFL EX QUANTon 04-18-2023 HCV AB Non-Reactive Normal Non Reactive [facility] Comment on above: Performed By: #### H CVPCRR #### [facility] [address] [address] [address] Josh Jacinto HIV 1 AND 2 WITH REFLEXon HIV Screen 4th Generation wRfx Non-Reactive Normal Non Reactive [facility] Comment on above: Result Comment: HIV Negative HIV-1/HIV-2 antibodies and HIV-1 p24 antigen were NOT detected. There is no laboratory evidence of HIV infection. Performed By: #### B OX #### [facility] [address] [place] [address] Dr. Josh Jacinto RPR QUANTon 04-18-2023 Rapid Plasma Reagin, Quant Non-Reactive Normal NonRea<1:1 [facility] Comment on above: Result Comment: Plea se Note: This test does not meet current guidelines for screening and diagnosis of syphilis. This test is intended for following treatment response in patients being treated for syphilis infection. To screen for syphilis infection, a reflex cascade that includes both RPR and a treponema-specific assay should be utilized, such as Treponema pallidum (Syphilis) Screening Davison (371810) or Rapid Plasma Reagin (RPR) Test With Reflex to Quantitative RPR and Confirmatory Treponema pallidum Antibodies (641267). Performed By: #### B OX #### [facility] [address] [place] [address] Dr. Josh Jacinto RUBELLA AB IGGon 04-18-2023 Rubella Antibodies, IgG 1.84 index Normal Immune >0.99 [facility] Comment on above: Result Comment: Non- immune <0.90 Equivocal 0.90 - 0.99 Immune >0.99 Performed By: #### H CGSUB #### [facility] [address] [place] [address] Dr. Josh Jacinto BOX TEST SENT OUTon 04-16-20 23 SENT TO REF LAB 04/17/2023 Normal [facility] Comment on above: Performed By: #### B OX #### [facility] [address] [place] [address] Dr. Josh Jacinto CBC AUTO DIFFon 04-16-2023 BASO # 0.0 103/ul Normal 0.0-0.1 [facility] Comment on above: Performed By: #### B OX #### [facility] [address] [place] [address] Dr. Josh Jacinto Basophils/100 WBC (Bld) 0.2 % Normal 0.2-2.0 [facility] Comment on above: Performed By: #### B OX #### [facility] [address] [place] [address] Dr. Josh Jacinto EO # 0.1 103/ul Normal 0.0-0.7 [facility] Comment on above: Performed By: #### B OX #### [facility] [address] [place] [address] Dr. Josh Jacinto Eosinophils/100 WBC (Bld) 0.6 % Critically low 0.9-7.0 [facility] Comment on above: Performed By: #### B OX #### [facility] [address] [place] [address] Dr. Josh Jacinto Erythrocyte distribution width (RBC) [Ratio] 13.4 % Normal 11.0-15.0 [facility] Comment on above: Performed By: #### B OX #### [facility] [address] [place] [address] Dr. Josh Jacinto Hematocrit (Bld) [Volume fraction] 36.9 % Normal 36.0-48.0 [facility] Comment on above: Performed By: #### B OX #### [facility] [address] [place] [address] Dr. Josh Jacinto Hemoglobin (Bld) [Mass/Vol] 12.4 g/dL Normal 12.0-16.0 [facility] Comment on above: Performed By: #### B OX #### [facility] [address] [place] [address] Dr. Josh Jacinto IG # 0.02 10e3/ul Normal 0.00-0.03 [facility] Comment on above: Performed By: #### B OX #### [facility] [address] [place] [address] Dr. Josh Jacinto IG % 0.2 % Normal 0.0-0.5 [facility] Comment on above: Performed By: #### B OX #### [facility] [address] [place] [address] Dr. Josh Jacinto LYMPH # 2.3 103/ul Normal 1.2-3.8 [facility] Comment on above: Performed By: #### B OX #### [facility] [address] [place] [address] Dr. Josh Jacinto Lymphocytes/100 WBC (Bld) 19.4 % Critically low 20.5-60.0 [facility] Comment on above: Performed By: #### B OX #### [facility] [address] [place] [address] Dr. Josh Jacinto MANUAL DIFF REQ NO Normal [facility] Comment on above: Performed By: #### B OX #### [facility] [address] [place] [address] Dr. Josh Jacinto MCH (RBC) [Entitic mass] 29.6 pg Normal 26.7-34.0 [facility] Comment on above: Performed By: #### B OX #### [facility] [address] [place] [address] Dr. Josh Jacinto MCHC (RBC) [Mass/Vol] 33.6 g/dL Normal 29.9-35.2 [facility] Comment on above: Performed By: #### B OX #### [facility] [address] [place] [address] Dr. Josh Jacinto MCV (RBC) [Entitic vol] 88.1 fL Normal 81.0-99.0 [facility] Comment on above: Performed By: #### B OX #### [facility] [address] [place] [address] Dr. Josh Jacinto MONO # 0.6 103/ul Normal 0.3-0.8 [facility] Comment on above: Performed By: #### B OX #### [facility] [address] [place] [address] Dr. Josh Jacinto Monocytes/100 WBC (Bld) 5.1 % Normal 1.7-12.0 [facility] Comment on above: Performed By: #### B OX #### [facility] [address] [place] [address] Dr. Josh Jacinto NEUT # 9.0 103/ul Critically high 1.4-6.5 [facility] Comment on above: Performed By: #### B OX #### [facility] [address] [place] [address] Dr. Josh Jacinto Neutrophils/100 WBC (Bld) 74.5 % Normal 43.0-75.0 [facility] Comment on above: Performed By: #### B OX #### [facility] [address] [place] [address] Dr. Josh Jacinto Platelet mean volume (Bld) [Entitic vol] 10.1 fL Normal 9.5-13.5 [facility] Comment on above: Performed By: #### B OX #### [facility] [address] [place] [address] Dr. Josh Jacinto PLT 337 103/ul Normal 150-450 [facility] Comment on above: Performed By: #### B OX #### [facility] [address] [place] [address] Dr. Josh Jacinto RBC 4.19 106/ul Critically low 4.20-5.40 [facility] Comment on above: Performed By: #### B OX #### [facility] [address] [place] [address] Dr. Josh Jacinto WBC 12.0 103/ul Critically high 4.0-11.0 [facility] Comment on above: Performed By: #### B OX #### [facility] [address] [place] [address] Dr. Josh Jacinto CULTURE URINEon 04-16-2023 CULTURE URINE Culture Observations: NO GROWTH. Normal [facility] Comment on above: Performed By: #### H CGSUB #### [facility] [address] [place] [address] Dr. Josh Jacinto GLYCOHEMOGLOBIN A1Con 2022 ADA RECOMMENDATION SEE BELOW Normal [facility] Comment on above: Result Comment: ADA RECOMMENDED LIMIT 4.0 - 6.0 ADA THERAPEUTIC TARGET < 7.0 ACTION SUGGESTED > 7.0 Performed By: #### H CVPCRR #### [facility] [address] [place] [address] Dr. Josh Jacinto Glucose [Mass/Vol] 91 mg/dL Normal [facility] Comment on above: Performed By: #### H CVPCRR #### [facility] [address] [address] [address] Josh Jacinto HbA1c (Bld) [Mass fraction] 4.8 % Normal 4.5-6.2 [facility] Comment on above: Performed By: #### H CVPCRR #### [facility] [address] [address] [address] Josh Jacinto TSHon 04-16-2023 TSH 1.700 uIU/mL Normal 0.358-3.[address] [facility] Comment on above: Performed By: #### H CGSUB #### [facility] [address] [place] [address] Dr. Josh Jacinto TYPE AND SCREENon 04-16-2023 TYPE AND SCREEN Negative Normal [facility] Comment on above: Performed By: #### H CGSUB #### [facility] [address] [place] [address] Dr. Josh Jacinto US PREG TVon 04-13-2023 US PREG TV EXAMINATION: US PREG TV HISTORY: Pain TECHNIQUE: Grayscale and color Doppler sonographic evaluation of the uterus and adnexa was performed utilizing a transvaginal approach only. COMPARISON: 04/06/2023 FINDINGS: Uterus: Size: Normal Orientation:Antevert ed Intrauterine Gestational Sac: Present Yolk Sac: Present Pole: Present. Seadrift-rump length measures 2.1 cm, 8 weeks 5 days with BELL 11/18/2023. Cardiac Activity: Present Subchorionic hemorrhage: none Cervix: Closed Right adnexa:Normal Left adnexa:Not visualized. Free fluid:None . _ IMPRESSION: 1. Single, living, intrauterine with estimated age of 8 weeks 2 days by prior ultrasound. Age by today's ultrasound is concordant with age by prior exam. 2. No gross complication. Electronically authenticated by: ANANT ERIC Date: 2023-04-13 20:47 Normal [facility] US PREG TVon 04-06-2023 US PREG TV EXAMINATION: US PREG TV HISTORY: Missed period COMPARISON: No relevant comparison available. FINDINGS: GESTATIONAL SAC: Present and normal appearing. YOLK SAC: Present and normal appearing. POLE: Present and normal appearing. CARDIAC: Present. UTERUS: Normal size and appearance. OVARIES: Right: Normal. Left: Normal. CERVIX: 4.3 cm in length and closed. CUL-DE-SAC: Normal. OTHER: None. AGE BY LMP: 8 weeks 3 days BELL BY LMP: 11/13/2023 AGE BY US CRL: 7 weeks 2 days BELL BY US CRL: 11/21/2023 IMPRESSION: 1. Single live intrauterine . Electronically authenticated by: ROXY TOBIAS Date: 2023-04-06 10:05 Normal [facility] CBC AUTO DIFFon 10-13-2022 BASO # 0.0 103/ul Normal 0.0-0.1 [facility] Comment on above: Performed By: #### H CVPCRR #### [facility] [address] [address] [address] Josh Jacinto Basophils/100 WBC (Bld) 0.4 % Normal 0.2-2.0 [facility] Comment on above: Performed By: #### H CVPCRR #### [facility] [address] [address] [address] Josh Jacinto EO # 0.1 103/ul Normal 0.0-0.7 [facility] Comment on above: Performed By: #### H CVPCRR #### [facility] [address] [address] [address] Josh Jacinto Eosinophils/100 WBC (Bld) 1.2 % Normal 0.9-7.0 [facility] Comment on above: Performed By: #### H CVPCRR #### [facility] [address] [address] [address] Josh Jacinto Erythrocyte distribution width (RBC) [Ratio] 12.7 % Normal 11.0-15.0 [facility] Comment on above: Performed By: #### H CVPCRR #### [facility] [address] [place] [address] Dr. Josh Jacinto Hematocrit (Bld) [Volume fraction] 39.3 % Normal 36.0-48.0 [facility] Comment on above: Performed By: #### H CVPCRR #### [facility] [address] [place] [address] Dr. Josh Jacinto Hemoglobin (Bld) [Mass/Vol] 13.1 g/dL Normal 12.0-16.0 [facility] Comment on above: Performed By: #### H CVPCRR #### [facility] [address] [place] [address] Dr. Josh Jacinto IG # 0.02 10e3/ul Normal 0.00-0.03 [facility] Comment on above: Performed By: #### H CVPCRR #### [facility] [address] [place] [address] Dr. Josh Jacinto IG % 0.3 % Normal 0.0-0.5 [facility] Comment on above: Performed By: #### H CVPCRR #### [facility] [address] [place] [address] Dr. Josh Jacinto LYMPH # 2.1 103/ul Normal 1.2-3.8 [facility] Comment on above: Performed By: #### H CVPCRR #### [facility] [address] [place] [address] Dr. Josh Jacinto Lymphocytes/100 WBC (Bld) 28.8 % Normal 20.5-60.0 [facility] Comment on above: Performed By: #### H CVPCRR #### [facility] [address] [place] [address] Dr. Josh Jacinto MANUAL DIFF REQ NO Normal [facility] Comment on above: Performed By: #### H CVPCRR #### [facility] [address] [place] [address] Dr. Josh Jacinto MCH (RBC) [Entitic mass] 28.9 pg Normal 26.7-34.0 [facility] Comment on above: Performed By: #### H CVPCRR #### [facility] [address] [place] [address] Dr. Josh Jacinto MCHC (RBC) [Mass/Vol] 33.3 g/dL Normal 29.9-35.2 [facility] Comment on above: Performed By: #### H CVPCRR #### [facility] [address] [place] [address] Dr. Josh Jacinto MCV (RBC) [Entitic vol] 86.6 fL Normal 81.0-99.0 [facility] Comment on above: Performed By: #### H CVPCRR #### [facility] [address] [place] [address] Dr. Josh Jacinto MONO # 0.6 103/ul Normal 0.3-0.8 [facility] Comment on above: Performed By: #### H CVPCRR #### [facility] [address] [place] [address] Dr. Josh Jacinto Monocytes/100 WBC (Bld) 8.7 % Normal 1.7-12.0 [facility] [facility] Comment on above: Performed By: #### H CVPCRR #### [facility] [address] [place] [address] Dr. Josh Jacinto NEUT # 4.4 103/ul Normal 1.4-6.5 [facility] Comment on above: Performed By: #### H CVPCRR #### [facility] [address] [place] [address] Dr. Josh Jacinto Neutrophils/100 WBC (Bld) 60.6 % Normal 43.0-75.0 [facility] Comment on above: Performed By: #### H CVPCRR #### [facility] [address] [place] [address] Dr. Josh Jacinto Platelet mean volume (Bld) [Entitic vol] 10.0 fL Normal 9.5-13.5 [facility] Comment on above: Performed By: #### H CVPCRR #### [facility] [address] [address] [address] Josh Jacinto PLT 327 103/ul Normal 150-450 [facility] Comment on above: Performed By: #### H CVPCRR #### [facility] [address] [place] [address] Dr. Josh Jacinto RBC 4.54 106/ul Normal 4.20-5.40 [facility] Comment on above: Performed By: #### H CVPCRR #### [facility] [address] [place] [address] Dr. Josh Jacinto WBC 7.2 103/ul Normal 4.0-11.0 [facility] Comment on above: Performed By: #### H CVPCRR #### [facility] [address] [place] [address] Dr. Josh Jacinto ER URINE PROFILEon 2 Bilirubin Ql (U) Negative Normal NEGATIVE [facility] Comment on above: Performed By: #### H CVPCRR #### [facility] [address] [place] [address] Dr. Josh Jacinto Clarity (U) CLEAR Normal CLEAR [facility] Comment on above: Performed By: #### H CVPCRR #### [facility] [address] [place] [address] Dr. Josh Jacinto Color (U) LT. YELLOW Normal YELLOW [facility] Comment on above: Performed By: #### H CVPCRR #### [facility] [address] [place] [address] Dr. Josh GALLEGOS A micrscopic examination will be performed if indicated. Normal [facility] Comment on above: Performed By: #### H CVPCRR #### [facility] [address] [place] [address] Dr. Josh Jacinto Glucose Ql (U) Negative Normal NEGATIVE [facility] Comment on above: Performed By: #### H CVPCRR #### [facility] [address] [place] [address] Dr. Josh Jacinto Hemoglobin Ql (U) LARGE Abnormal NEGATIVE [facility] Comment on above: Performed By: #### H CVPCRR #### [facility] [address] [place] [address] Dr. Josh Jacinto Ketones Ql (U) Negative Normal NEGATIVE [facility] Comment on above: Performed By: #### H CVPCRR #### [facility] [address] [place] [address] Dr. Josh Jacinto LEUKOCYTES Negative Normal NEGATIVE [facility] Comment on above: Performed By: #### H CVPCRR #### [facility] [address] [place] [address] Dr. Josh Jacinto Nitrite Ql (U) Negative Normal NEGATIVE [facility] Comment on above: Performed By: #### H CVPCRR #### [facility] [address] [place] [address] Dr. Josh Jacinto pH (U) 6.5 [pH] Normal 5-9 [facility] Comment on above: Performed By: #### H CVPCRR #### [facility] [address] [place] [address] Dr. Josh Jacinto SPEC GRAVITY 1.010 Normal 1.005-<=1.025 [facility] Comment on above: Performed By: #### H CVPCRR #### [facility] [address] [place] [address] Dr. Josh Jacinto UA PROTEIN Negative Normal NEGATIVE/ TRACE [facility] Comment on above: Performed By: #### H CVPCRR #### [facility] [address] [place] [address] Dr. Josh Jacinto UR MICRO IND INDICATED Normal [facility] Comment on above: Performed By: #### H CVPCRR #### [facility] [address] [place] [address] Dr. Josh Jacinto Urobilinogen Qn (U) 0.2 {Pio'U}/dL Normal 0.2 - 1. 0 [facility] Comment on above: Performed By: #### H CVPCRR #### [facility] [address] [place] [address] Dr. Josh Jacinto PREG QUANT HCGon 10-13-2022 HCG QUANT 4 mIU/mL Normal [facility] Comment on above: Performed By: #### P REGQNT #### [facility] [address] [place] [address] Dr. Josh Jacinto HCG RANGE SEE BELOW Normal [facility] Comment on above: Result Comment: 5-50 0.2-1 WEEK 50-500 1-2 WEEKS 100-5,000 2-3 WEEKS 500-10,000 3-4 WEEKS 1,000-50,000 4-5 WEEKS 10,000-100,000 5-6 WEEKS 15,000-200,000 6-8 WEEKS 10,000-100,000 2-3 MONTHS Performed By: #### P REGQNT #### [facility] [address] [place] [address] Dr. Josh Jacinto PROTIMEon 10-13-2022 INR Coag (PPP) [Relative time] 1.29 {INR} Normal [facility] Comment on above: Performed By: #### H CVPCRR #### [facility] [address] [place] [address] Dr. Josh Jacinto INR GUIDELINES SEE BELOW Normal [facility] Comment on above: Result Comment: PASCUAL RED INR: 2.0 - 3.0 CONDITIONS NOT LISTED BELOW 2.5 - 3.5 FOR PROSTHETIC HEART VALVE REPLACEMENT 2.5 - 3.5 RECURRENT THROMBOSIS Performed By: #### H CVPCRR #### [facility] [address] [place] [address] Dr. Josh Jacinto PT Coag (PPP) [Time] 13.7 s Critically high 9.0-11.6 [facility] Comment on above: Performed By: #### H CVPCRR #### [facility] [address] [place] [address] Dr. Josh Jacinto PTTon 10-13-2022 aPTT Coag (Bld) [Time] 25.1 s Normal 22.3-36.2 [facility] Comment on above: Performed By: #### H CVPCRR #### [facility] [address] [place] [address] Dr. Josh Jacinto URINE MICROSCOPIC ONLYon BACTERIA NONE SEEN Normal NONE SEEN The [facility] Comment on above: Performed By: #### H CVPCRR #### [facility] [address] [place] [address] Dr. Josh Jacinto Bacteria identified Cx Nom (U) NOT INDICATED Normal [facility] Comment on above: Performed By: #### H CVPCRR #### [facility] [address] [place] [address] Dr. Josh Jacinto CAST NONE SEEN Normal NONE SEEN The [facility] Comment on above: Performed By: #### H CVPCRR #### [facility] [address] [place] [address] Dr. Josh Jacinto Crystals LM Nom (Urine sed) NONE SEEN Normal NONE SEEN The [facility] Comment on above: Performed By: #### H CVPCRR #### [facility] [address] [place] [address] Dr. Josh Jacinto Epithelial cells LM Ql (Urine sed) MODERATE Abnormal NONE SEEN /RARE [facility] Comment on above: Performed By: #### H CVPCRR #### [facility] [address] [place] [address] Dr. Josh Jacinto MUCOUS NONE SEEN Normal NONE SEEN The [facility] Comment on above: Performed By: #### H CVPCRR #### [facility] [address] [place] [address] Dr. Josh Jacinto RBC 10-20 Abnormal 0-2 [facility] Comment on above: Performed By: #### H CVPCRR #### [facility] [address] [place] [address] Dr. Josh Jacinto WBC 0-2 Abnormal NONE SEEN The [facility] Comment on above: Performed By: #### H CVPCRR #### [facility] [address] [place] [address] Dr. Josh Jacinto US PREG TVon 10-13-2022 US PREG TV EXAMINATION: US PREG TV HISTORY: Ectopic COMPARISON: 07/04/2022 FINDINGS: Transvaginal images No intrauterine or ectopic is observed Uterus is normal in size, contour and echotexture, anteverted. The right ovary measures 2.7 x 2.2 x 1.5 cm. Normal color and Doppler ultrasound. The left ovary measures 2.8 x 1.6 x 1.6 cm. Area of hypoechogenicity measuring 1.2 cm possibly functional cyst The cervix is closed measuring 4.6 cm in length IMPRESSION: No intrauterine or ectopic identified. Correlate with quantitative beta hCG Electronically authenticated by: AMNA VALLADARES Date: 2022-10-13 08:40 Normal [facility] CBC AUTO DIFFon 10-09-2022 BASO # 0.0 103/ul Normal 0.0-0.1 [facility] Comment on above: Performed By: #### H CVPCRR #### [facility] [address] [place] [address] Dr. Josh Jacinto Basophils/100 WBC (Bld) 0.3 % Normal 0.2-2.0 [facility] Comment on above: Performed By: #### H CVPCRR #### [facility] [address] [place] [address] Dr. Josh Jacinto EO # 0.0 103/ul Normal 0.0-0.7 [facility] Comment on above: Performed By: #### H CVPCRR #### [facility] [address] [place] [address] Dr. Josh Jacinto Eosinophils/100 WBC (Bld) 0.4 % Critically low 0.9-7.0 [facility] Comment on above: Performed By: #### H CVPCRR #### [facility] [address] [place] [address] Dr. Josh Jacinto Erythrocyte distribution width (RBC) [Ratio] 12.7 % Normal 11.0-15.0 [facility] Comment on above: Performed By: #### H CVPCRR #### [facility] [address] [place] [address] Dr. Josh Jacinto Hematocrit (Bld) [Volume fraction] 39.0 % Normal 36.0-48.0 [facility] Comment on above: Performed By: #### H CVPCRR #### [facility] [address] [place] [address] Dr. Josh Jacinto Hemoglobin (Bld) [Mass/Vol] 13.1 g/dL Normal 12.0-16.0 [facility] Comment on above: Performed By: #### H CVPCRR #### [facility] [address] [address] [address] Josh Jacinto IG # 0.03 10e3/ul Normal 0.00-0.03 [facility] Comment on above: Performed By: #### H CVPCRR #### [facility] [address] [address] [address] Josh Jacinto IG % 0.3 % Normal 0.0-0.5 [facility] Comment on above: Performed By: #### H CVPCRR #### [facility] [address] [address] [address] Josh Jacinto LYMPH # 2.0 103/ul Normal 1.2-3.8 [facility] Comment on above: Performed By: #### H CVPCRR #### [facility] [address] [place] [address] Dr. Josh Jacinto Lymphocytes/100 WBC (Bld) 18.4 % Critically low 20.5-60.0 [facility] Comment on above: Performed By: #### H CVPCRR #### [facility] [address] [address] [address] Josh Jacinto MANUAL DIFF REQ NO Normal [facility] Comment on above: Performed By: #### H CVPCRR #### [facility] [address] [address] [address] Josh Jacinto MCH (RBC) [Entitic mass] 29.0 pg Normal 26.7-34.0 [facility] Comment on above: Performed By: #### H CVPCRR #### [facility] [address] [address] [address] Josh Jacinto MCHC (RBC) [Mass/Vol] 33.6 g/dL Normal 29.9-35.2 [facility] Comment on above: Performed By: #### H CVPCRR #### [facility] [address] [address] [address] Josh Jacinto MCV (RBC) [Entitic vol] 86.5 fL Normal 81.0-99.0 [facility] Comment on above: Performed By: #### H CVPCRR #### [facility] [address] [address] [address] Josh Jacinto MONO # 0.8 103/ul Normal 0.3-0.8 [facility] Comment on above: Performed By: #### H CVPCRR #### [facility] [address] [place] [address] Dr. Josh Jacinto Monocytes/100 WBC (Bld) 7.1 % Normal 1.7-12.0 [facility] Comment on above: Performed By: #### H CVPCRR #### [facility] [address] [place] [address] Dr. Josh Jacinto NEUT # 8.1 103/ul Critically high 1.4-6.5 [facility] Comment on above: Performed By: #### H CVPCRR #### [facility] [address] [place] [address] Dr. Josh Jacinto Neutrophils/100 WBC (Bld) 73.5 % Normal 43.0-75.0 [facility] Comment on above: Performed By: #### H CVPCRR #### [facility] [address] [place] [address] Dr. Josh Jacinto Platelet mean volume (Bld) [Entitic vol] 10.4 fL Normal 9.5-13.5 [facility] Comment on above: Performed By: #### H CVPCRR #### [facility] [address] [place] [address] Dr. Josh Jacinto PLT 329 103/ul Normal 150-450 [facility] Comment on above: Performed By: #### H CVPCRR #### [facility] [address] [place] [address] Dr. Josh Jacinto RBC 4.51 106/ul Normal 4.20-5.40 [facility] Comment on above: Performed By: #### H CVPCRR #### [facility] [address] [place] [address] Dr. Josh Jacinto WBC 11.0 103/ul Normal 4.0-11.0 [facility] Comment on above: Performed By: #### H CVPCRR #### [facility] [address] [place] [address] Dr. Jsoh Jacinto CULTURE URINEon 10-09-2022 CULTURE URINE Culture Observations: NO GROWTH. Normal [facility] Comment on above: Performed By: #### H CGSUB #### [facility] [address] [place] [address] Dr. Josh Jacinto ER URINE PROFILEon Bilirubin Ql (U) Negative Normal NEGATIVE [facility] Comment on above: Performed By: #### H CVPCRR #### [facility] [address] [place] [address] Dr. Josh Jacinto Clarity (U) CLEAR Normal CLEAR [facility] Comment on above: Performed By: #### H CVPCRR #### [facility] [address] [place] [address] Dr. Josh Jacinto Color (U) LT. YELLOW Normal YELLOW [facility] Comment on above: Performed By: #### H CVPCRR #### [facility] [address] [place] [address] Dr. Josh Jacinto ERUAHD A micrscopic examination will be performed if indicated. Normal [facility] Comment on above: Performed By: #### H CVPCRR #### [facility] [address] [place] [address] Dr. Josh Jacinto Glucose Ql (U) Negative Normal NEGATIVE [facility] Comment on above: Performed By: #### H CVPCRR #### [facility] [address] [place] [address] Dr. Josh Jacinto Hemoglobin Ql (U) TRACE-LYSED Abnormal NEGATIVE [facility] Comment on above: Performed By: #### H CVPCRR #### [facility] [address] [place] [address] Dr. Josh Jacinto Ketones Ql (U) Negative Normal NEGATIVE [facility] Comment on above: Performed By: #### H CVPCRR #### [facility] [address] [place] [address] Dr. Josh Jacinto LEUKOCYTES SMALL Abnormal NEGATIVE [facility] Comment on above: Performed By: #### H CVPCRR #### [facility] [address] [place] [address] Dr. Josh Jacinto Nitrite Ql (U) Negative Normal NEGATIVE [facility] Comment on above: Performed By: #### H CVPCRR #### [facility] [address] [place] [address] Dr. Josh Jacinto pH (U) 6.0 [pH] Normal 5-9 [facility] Comment on above: Performed By: #### H CVPCRR #### [facility] [address] [place] [address] Dr. Josh Jacinto SPEC GRAVITY 1.015 Normal 1.005-<=1.025 [facility] Comment on above: Performed By: #### H CVPCRR #### [facility] [address] [place] [address] Dr. Josh Jacinto UA PROTEIN Negative Normal NEGATIVE/ TRACE [facility] Comment on above: Performed By: #### H CVPCRR #### [facility] [address] [place] [address] Dr. Josh Jacinto UR MICRO IND INDICATED Normal [facility] Comment on above: Performed By: #### H CVPCRR #### [facility] [address] [place] [address] Dr. Josh Jacinto Urobilinogen Qn (U) 0.2 {Pio'U}/dL Normal 0.2 - 1. 0 [facility] Comment on above: Performed By: #### H CVPCRR #### [facility] [address] [place] [address] Dr. oJsh Jacinto LIPASEon 10-09-2022 Lipase [Catalytic activity/Vol] 128.0 U/L Normal 73.0-393.0 [facility] Comment on above: Performed By: #### C MP, LIPA, HSTROPN #### [facility] [address] [place] [address] Dr. Josh Jacinto MONOon 10-09-2022 Monocytes (Bld) [#/Vol] Negative Normal NEGATIVE [facility] Comment on above: Performed By: #### B OX #### [facility] [address] [address] [address] Josh Jacinto PREG HCG QUALon 10-09-2022 , QUAL Positive Abnormal NEGATIVE [facility] Comment on above: Performed By: #### B OX #### [facility] [address] [address] [address] Josh Jacinto PROF 14(COMP METB)on 022 Albumin [Mass/Vol] 3.6 g/dL Normal 3.4-5.0 [facility] Comment on above: Performed By: #### C MP, LIPA, HSTROPN #### [facility] [address] [place] [address] Dr. Josh Jacinto Albumin/Globulin [Mass ratio] 0.9 {ratio} Normal [facility] Comment on above: Performed By: #### C MP, LIPA, HSTROPN #### [facility] [address] [place] [address] Dr. Josh Jacinto ALP [Catalytic activity/Vol] 94 U/L Normal 46-116 [facility] Comment on above: Performed By: #### C MP, LIPA, HSTROPN #### [facility] [address] [place] [address] Dr. Josh Jacinto ALT [Catalytic activity/Vol] 22 U/L Normal 14-59 [facility] Comment on above: Performed By: #### C MP, LIPA, HSTROPN #### [facility] [address] [place] [address] Dr. Josh Jacinto Anion gap [Moles/Vol] 10.9 mmol/L Normal [facility] Comment on above: Performed By: #### C MP, LIPA, HSTROPN #### [facility] [address] [place] [address] Dr. Josh Jacinto AST [Catalytic activity/Vol] 13 U/L Critically low 15-37 [facility] Comment on above: Performed By: #### C MP, LIPA, HSTROPN #### [facility] [address] [place] [address] Dr. Josh Jacinto Bilirubin [Mass/Vol] 0.1 mg/dL Critically low 0.2-1.0 [facility] Comment on above: Performed By: #### C MP, LIPA, HSTROPN #### [facility] [address] [place] [address] Dr. Josh Jacinto Calcium [Mass/Vol] 9.0 mg/dL Normal 8.5-10.1 [facility] Comment on above: Performed By: #### C MP, LIPA, HSTROPN #### [facility] [address] [place] [address] Dr. Josh Jacinto Chloride [Moles/Vol] 105 mmol/L Normal 98-107 [facility] Comment on above: Performed By: #### C MP, LIPA, HSTROPN #### [facility] [address] [place] [address] Dr. Josh Jacinto CO2 [Moles/Vol] 23.5 mmol/L Normal 21.0-32.0 [facility] Comment on above: Performed By: #### C MP, LIPA, HSTROPN #### [facility] [address] [place] [address] Dr. Josh Jacinto Creatinine [Mass/Vol] 0.68 mg/dL Normal 0.55-1.02 [facility] Comment on above: Performed By: #### C MP, LIPA, HSTROPN #### [facility] [address] [place] [address] Dr. Josh Jacinto EGFR-AF BENINESE >60 Normal >=60 [facility] Comment on above: Performed By: #### C MP, LIPA, HSTROPN #### [facility] [address] [place] [address] Dr. Josh Jacinto EGFR-NON AF BENINESE >60 Normal >=60 [facility] Comment on above: Performed By: #### C MP, LIPA, HSTROPN #### [facility] [address] [place] [address] Dr. Josh Jacinto Globulin (S) [Mass/Vol] 4.1 g/dL Normal [facility] Comment on above: Performed By: #### C MP, LIPA, HSTROPN #### [facility] [address] [address] [address] Josh Jacinto Glucose [Mass/Vol] 98 mg/dL Normal 74-106 [facility] Comment on above: Performed By: #### C MP, LIPA, HSTROPN #### [facility] [address] [address] [address] Josh Jacinto Potassium [Moles/Vol] 3.4 mmol/L Critically low 3.5-5.1 [facility] Comment on above: Performed By: #### C MP, LIPA, HSTROPN #### [facility] [address] [place] [address] Dr. Josh Jacinto Protein [Mass/Vol] 7.7 g/dL Normal 6.4-8.2 [facility] Comment on above: Performed By: #### C MP, LIPA, HSTROPN #### [facility] [address] [place] [address] Dr. Josh Jacinto Sodium [Moles/Vol] 136 mmol/L Normal 136-145 [facility] Comment on above: Performed By: #### C MP, LIPA, HSTROPN #### [facility] [address] [place] [address] Dr. Josh Jacinto Urea nitrogen [Mass/Vol] 14.0 mg/dL Normal 7.0-18.0 [facility] Comment on above: Performed By: #### C MP, LIPA, HSTROPN #### [facility] [address] [address] [address] Josh Jacinto Urea nitrogen/Creatinine [Mass ratio] 20.6 mg/mg Normal [facility] Comment on above: Performed By: #### C MP, LIPA, HSTROPN #### [facility] [address] [place] [address] Dr. Josh Jacinto TROPONIN, HIGH SENSITIVITYon 10-09-2022 HSTROP <4.0 Normal 4.0-51.3 [facility] Comment on above: Result Comment: CUT- OFF POINTS HAVE BEEN ESTABLISHED BASED ON THE FOURTH UNIVERSAL DEFINITIONS OF MYOCARDIAL INFARCTION. THE UPPER REFERENCE LIMIT (URL) OF TROPONIN, DEFINED THE 99TH PERCENTILE OF cTnI DISTRIBUTION IN A REFERENCE POPULATION, HAS BEEN CONFIRMED THE DECISION THRESHOLD FOR [place] DIAGNOSIS. Performed By: #### C MP, LIPA, HSTROPN #### [facility] [address] [place] [address] Dr. Josh Jacinto URINE MICROSCOPIC ONLYon BACTERIA TRACE Abnormal NONE SEEN [facility] [facility] Comment on above: Performed By: #### H CVPCRR #### [facility] [address] [place] [address] Dr. Josh Jacinto Bacteria identified Cx Nom (U) INDICATED Normal The [facility] Comment on above: Performed By: #### H CVPCRR #### [facility] [address] [place] [address] Dr. Josh Jacinto CAST NONE SEEN Normal NONE SEEN [facility] Comment on above: Performed By: #### H CVPCRR #### [facility] [address] [place] [address] Dr. Josh Jacinto Crystals LM Nom (Urine sed) NONE SEEN Normal NONE SEEN [facility] Comment on above: Performed By: #### H CVPCRR #### [facility] [address] [place] [address] Dr. Josh Jacinto Epithelial cells LM Ql (Urine sed) MODERATE Abnormal NONE SEEN /RARE The [facility] Comment on above: Performed By: #### H CVPCRR #### [facility] [address] [place] [address] Dr. Josh Jacinto MUCOUS NONE SEEN Normal NONE SEEN The [facility] Comment on above: Performed By: #### H CVPCRR #### [facility] [address] [place] [address] Dr. Josh Jacinto RBC NONE SEEN Abnormal 0-2 The [facility] Comment on above: Performed By: #### H CVPCRR #### [facility] [address] [place] [address] Dr. Josh Jacinto WBC 2-5 Abnormal NONE SEEN The [facility] Comment on above: Performed By: #### H CVPCRR #### [facility] [address] [address] [address] Josh SANCHEZ URINE PROFILEon 2 Bilirubin Ql (U) Negative Normal NEGATIVE The [facility] Comment on above: Performed By: #### P REGU, ERUR #### [facility] [address] [address] [address] Josh Jacinto Clarity (U) CLEAR Normal CLEAR The [facility] Comment on above: Performed By: #### P REGU, ERUR #### [facility] [address] [address] [address] Josh Jacinto Color (U) LT. YELLOW Normal YELLOW The [facility] Comment on above: Performed By: #### P REGU, ERUR #### [facility] [address] [place] [address] Dr. Josh BELCHERD A micrscopic examination will be performed if indicated. Normal The [facility] Comment on above: Performed By: #### P REGU, ERUR #### [facility] [address] [address] [address] Josh Jacinto Glucose Ql (U) Negative Normal NEGATIVE The [facility] Comment on above: Performed By: #### P REGU, ERUR #### [facility] [address] [place] [address] Dr. Josh Jacinto Hemoglobin Ql (U) Negative Normal NEGATIVE The [facility] Comment on above: Performed By: #### P REGU, ERUR #### [facility] [address] [address] [address] Josh Jacinto Ketones Ql (U) Negative Normal NEGATIVE The [facility] Comment on above: Performed By: #### P REGU, ERUR #### [facility] [address] [place] [address] Dr. Josh Jacinto LEUKOCYTES Negative Normal NEGATIVE The [facility] Comment on above: Performed By: #### P REGU, ERUR #### [facility] [address] [place] [address] Dr. Josh Jacinto Nitrite Ql (U) Negative Normal NEGATIVE The [facility] Comment on above: Performed By: #### P REGU, ERUR #### [facility] [address] [place] [address] Dr. Josh Jacinto pH (U) 6.0 [pH] Normal 5-9 [facility] Comment on above: Performed By: #### P REGU, ERUR #### [facility] [address] [place] [address] Dr. Josh Jacinto SPEC GRAVITY 1.010 Normal 1.005-<=1.025 The [facility] Comment on above: Performed By: #### P REGU, ERUR #### [facility] [address] [place] [address] Dr. Josh Jacinto UA PROTEIN Negative Normal NEGATIVE/ TRACE The [facility] Comment on above: Performed By: #### P REGU, ERUR #### [facility] [address] [place] [address] Dr. Josh Jacinto UR MICRO IND NOT INDICATED Normal The [facility] Comment on above: Performed By: #### P REGU, ERUR #### [facility] [address] [place] [address] Dr. Josh Jacinto Urobilinogen Qn (U) 0.2 {Pio'U}/dL Normal 0.2 - 1. 0 [facility] Comment on above: Performed By: #### P REGU, ERUR #### [facility] [address] [place] [address] Dr. Josh Jacinto URon 09-14-2022 , QUAL Negative Normal NEGATIVE The [facility] Comment on above: Performed By: #### P REGU, ERUR #### [facility] [address] [place] [address] Dr. Josh Jacinto XR ABD FLAT UP_PA Edgard 09-14 XR ABD FLAT UP_PA CH EXAM: XR ABD FLAT SIGNAL OR CH HISTORY: CONSTIPATION, UNSPECIFIED COMPARISON: 12/19/2021 TECHNIQUE AND FINDINGS: PA view of the chest. Supine and upright views of the abdomen. Cardiomediastinal silhouette appears within normal limits. Lungs and pleural spaces are clear. Gas throughout the bowel loops without significant distention seen. Gas and stool in the colon. Moderate colonic stool burden. No evidence of pneumoperitoneum. No pathologic calcifications detected. Osseous structures appear grossly intact. Developmental vertebral body deformities suggested at the thoracolumbar junction. IMPRESSION: No acute findings in the chest. Moderate colonic stool burden. Nonspecific, likely nonobstructive bowel gas pattern. No free air detected. If concern persists, consider follow-up radiographs and/or CT. Electronically authenticated by: JANICE KAUFMAN Date: 2022-09-14 02:39 Normal [facility] PAP ACOG PANEL 2: 20 to 28on 07-10-2022 . . Normal [facility] Comment on above: Performed By: #### H CGSUB #### [facility] [address] [place] [address] Dr. Josh Jacinto Age Gdln ACOG Testing 20- [facility] Comment on above: Performed By: #### H CGSUB #### [facility] [address] [address] [address] Josh Jacinto DIAGNOSIS: Comment [facility] Comment on above: Result Comment: NEGA TIVE FOR INTRAEPITHELIAL LESION OR MALIGNANCY. Performed By: #### H CGSUB #### [facility] [address] [address] [address] Josh Jacinto Methodology: Comment [facility] Comment on above: Result Comment: This liquid based ThinPrep(R) pap test was screened with the use of an image guided system. Performed By: #### H CGSUB #### [facility] [address] [address] [address] Josh Jacinto Note: Comment [facility] Comment on above: Result Comment: The Pap smear is a screening test designed to aid in the detection of premalignant and malignant conditions of the uterine cervix. It is not a diagnostic procedure and should not be used as the sole means of detecting cervical cancer. Both false-positive and false-negative reports do occur. . Performed By: #### H CGSUB #### [facility] [address] [place] [address] Dr. Josh Jacinto Performed by: Comment Normal The [facility] Comment on above: Result Comment: Aurora Salazar, Classified Advertising Supervisor (ASCP) Performed By: #### H CGSUB #### [facility] [address] [address] [address] Josh Jacinto Reflex Criteria: Comment Normal [facility] Comment on above: Result Comment: The HPV DNA reflex criteria were not met with this specimen result therefore, no HPV testing was performed. . Performed By: #### H CGSUB #### [facility] [address] [place], [place] [address] Dr. Josh Jacinto Specimen adequacy: Comment Normal [facility] Comment on above: Result Comment: Sati sfactory for evaluation. Endocervical and/or squamous metaplastic cells (endocervical component) are present. Performed By: #### H CGSUB #### [facility] [address] [address] [address] Josh Jacinto HCG-BETA SUBUNIT QUANTon hCG,Beta Subunit,Qnt,Serum <1 Normal [facility] Comment on above: Result Comment: Fema le (Non-) 0 - 5 (Postmenopausal) 0 - 8 . Female () Weeks of Gestation 3 6 - 71 4 10 - 750 5 203 - 4838 6 158 - 42668 7 [phone] 8 [phone] 9 [phone] 10 31165 -[phone] 12 [phone] 14 36774 - 48169 15 35238 - 56570 16 0468 - 75654 17 5300 - [phone] 18 [phone] Liana ECLIA methodology Performed By: #### H CGSUB #### [facility] [address] [address] [address] Josh Jacinto US PELVIS AND TRANSVAGon US PELVIS AND TRANSVAG EXAMINATION: US PELVIS AND TRANSVAG HISTORY: Pelvic and perineal pain COMPARISON: 07/07/2021 FINDINGS: Transabdominal images The uterus is normal in size, contour and echotexture measuring 8.2 x 6.0 x 4.3 cm. Anteverted. No focal myometrial mass The endometrium measures 9 mm, normal. The right ovary is normal in appearance measuring 2.8 x 2.7 x 1.3 cm. Normal color and Doppler flow. The left ovary measures 3.8 x 1.8 x 1.7 cm. 7 mm area of hypoechogenicity with mild peripheral hypervascularity IMPRESSION: 7 mm cystic area in the left ovary with mild peripheral hypervascularity. I favor a functional cyst over ectopic . Correlate with serial quantitative beta hCG Electronically authenticated by: AMNA VALLADARES Date: 2022-07-05 16:12 Normal [facility] Cult,Urineon 05-19-2021 Cult,Urine Specimen Description .CLEAN CATCH URINE Special Requests NOT REPORTED Culture NO SIGNIFICANT GROWTH Report Status FINAL 05/19/2021 Normal [facility] Comment on above: Performed By: #### S [facility] #### [facility] [employer] [address] [place] [address] [employer]: Collin De La Fuente MD Microscopic UrinalysisOrdere d By: Concetta Obrien on 05-18-2021 - [facility] [employer] Work Phone: Amorphous, UA NOT REPORTED None [facility] Work Phone: Bacteria, UA 2+ Abnormal None [facility] Work Phone: Casts UA NOT REPORTED /LPF [facility] Work Phone: Crystals, UA NOT REPORTED None /HPF [facility] Work Phone: Epithelial Cells UA 5 TO 10 [facility] [employer] Work Phone: Interpretation and review of laboratory results Abnormal [facility] [employer] Work Phone: Mucus, UA 1+ Abnormal None [facility] Work Phone: Other Observations UA NOT REPORTED NOT REQ. M [facility] [employer] Work Phone: RBC, UA None [facility] Work Phone: Renal Epithelial, UA NOT REPORTED 0 /HPF [facility] Work Phone: Trichomonas, UA NOT REPORTED None [facility] [employer] Work Phone: WBC, UA 10 TO 20 [facility] [employer] Work Phone: Yeast, UA NOT REPORTED None [facility] [employer] Work Phone: [facility] Work Phone: UrinalysisOrdered By: Concetta Obrien on 05-18-2021 Bilirubin Urine Negative NEGATIVE [facility] Work Phone: Color, UA YELLOW YELLOW [facility] Work Phone: Glucose, Ur Negative NEGATIVE [facility] Work Phone: Interpretation and review of laboratory results Abnormal [facility] Work Phone: Ketones Ql (U) Negative NEGATIVE [facility] Work Phone: Leukocyte esterase Test strip Ql (U) SMALL Abnormal NEGATIVE [facility] [email or web address] Phone: Nitrite, Urine Negative NEGATIVE [facility] Work Phone: pH, UA 6.0 [facility] [employer] Work Phone: Protein, UA Negative NEGATIVE [facility] Work Phone: Specific [place], UA >1.030 High [facility] Work Phone: Turbidity UA SLIGHTLY CLOUDY Abnormal CLEAR [facility] Work Phone: Urinalysis Comments NOT REPORTED [facility] [employer] Work Phone: Urine Hgb Negative NEGATIVE [facility] Work Phone: Urobilinogen, Urine Normal Normal [facility] Work Phone: [facility] Work Phone: Urinalysis, Routineon 2020 Bilirubin, SemiQt,Ur Negative Normal NEG [facility] Comment on above: Performed By: #### S [facility] #### [facility] [employer] [facility] [place] [address] [employer]: Collin De La Fuente MD Blood, Urine Negative Normal NEG [facility] Comment on above: Performed By: #### S WCGP #### [address] [address] [employer]: Collin De La Fuente MD Clarity (U) SLIGHTLY CLOUDY Abnormal CLEAR [facility] Comment on above: Performed By: #### S WCGP #### [address] [address] [employer]: Collin De La Fuente MD Color (U) YELLOW Normal YEL [facility] Comment on above: Performed By: #### S WCGP #### [address] [address] [employer]: Collin De La Fuente MD Glucose Ql (U) Negative Normal NEG [facility] Comment on above: Performed By: #### S WCGP #### [address] [address] [employer]: Collin De La Fuente MD Ketones Ql (U) Negative Normal NEG [facility] Comment on above: Performed By: #### S WCGP #### [address] [address] [employer]: Collin De La Fuente MD Leukocyte esterase Test strip Ql (U) SMALL Abnormal NEG [facility] Comment on above: Performed By: #### S WCGP #### [address] [address] [employer]: Collin De La Fuente MD Nitrite,Ur Negative Normal NEG [facility] Comment on above: Performed By: #### S WCGP #### [address] [address] [employer]: Collin De La Fuente MD PH,Ur 6.0 Normal 5.0-9.0 [facility] Comment on above: Performed By: #### S WCGP #### [address] [address] [employer]: Collin De La Fuente MD Protein Ql (U) Negative Normal NEG [facility] Comment on above: Performed By: #### S WCGP #### [address] [address] [employer]: Collin De La Fuente MD Spec. [place],Ur >1.030 High 1.010-1.020 [facility] Comment on above: Performed By: #### S WCGP #### [address] [address] [employer]: Collin De La Fuente MD Urobilinogen,Ur Normal Normal NORM [facility] Comment on above: Performed By: #### S WCGP #### [address] [address] [employer]: Collin De La Fuente MD Comment NOT REPORTED Normal [facility] Comment on above: Performed By: #### S WCGP #### [address] [address] [employer]: Collin De La Fuente MD Urinalysis,Microon 1 ----- Normal [facility] Comment on above: Performed By: #### S WCGP #### [address] [address] [employer]: Collin De La Fuente MD Bacteria 2+ Abnormal [facility] Comment on above: Performed By: #### S WCGP #### [address] [address] [employer]: Collin De La Fuente MD Epithelial cells LM Ql (Urine sed) 5 TO 10 Normal 0-25 [facility] Comment on above: Performed By: #### S WCGP #### [address] [address] [employer]: Collin De La Fuente MD Mucus Strands 1+ Abnormal NONE [facility] Comment on above: Performed By: #### S WCGP #### [facility] [employer] [facility] [place] [address] [employer] Tender: Collin De La Fuente MD Urine RBC's None Normal 0-2 [facility] Comment on above: Performed By: #### S WCGP #### [address] [place] [address] [employer]ender: Collin De La Fuente MD Urine WBC's 10 TO 20 Normal 0-5 [facility] Comment on above: Performed By: #### S WCGP #### [address] [address] [employer]: Collin De La Fuente MD Amorphous sediment LM Ql (Urine sed) NOT REPORTED Normal NONE [facility] Comment on above: Performed By: #### S WCGP #### [address] [address] [employer]: Collin De La Fuente MD Casts NOT REPORTED Normal [facility] Comment on above: Performed By: #### S WCGP #### [address] [address] [employer]: Collin De La Fuente MD Crystals LM Nom (Urine sed) NOT REPORTED Normal [facility] Comment on above: Performed By: #### S WCGP #### [address] [address] [employer]: Collin De La Fuente MD Epithelial, Renal NOT REPORTED Normal 0 [facility] Comment on above: Performed By: #### S WCGP #### [address] [address] [employer]: Collin De La Fuente MD Other Observations NOT REPORTED [facility] Comment on above: Performed By: #### S WCGP #### [address] [address] [employer] Tender: Collin De La Fuente MD Trichomonas NOT REPORTED Normal NONE [facility] Comment on above: Performed By: #### S WCGP #### [facility] [address] [place], [place] [id number] [employer] Tender: Collin De La Fuente MD Yeast NOT REPORTED Normal NONE [facility] Comment on above: Performed By: #### S WCGP #### [facility] [address] [place], [place] [id number] [employer] Tender: Collin De La Fuente MD Basic Metab w/rfx MGon 04-14 (cont.) Normal [facility] Comment on above: Result Comment: Aver age GFR for 20-29 years old: 116 mL/min/1.73sq m Chronic Kidney Disease: <60 mL/min/1.73sq m Kidney failure: <15 mL/min/1.73sq m eGFR calculated using average adult body mass. Additional eGFR calculator available at: http://www.Hashgo/multiple_crcl_2011.htm Performed By: #### B MPX, LIP, LIVP, CDP #### [facility] [address] [place] [address] Dynam[employer] Tender: Amna Clements MD Anion gap [Moles/Vol] 12 mmol/L Normal - [facility] Comment on above: Performed By: #### B MPX, LIP, LIVP, CDP #### [address] [place] [address] Dynam[employer] Tender: Amna Clements MD BUN/CRE Ratio 19 Normal - [facility] Comment on above: Performed By: #### B MPX, LIP, LIVP, CDP #### [facility] [address] [place] [address] Dynam[employer] Tender: Amna Clements MD Calcium [Mass/Vol] 8.8 mg/dL Normal 8.6-10.4 [facility] Comment on above: Performed By: #### B MPX, LIP, LIVP, CDP #### [facility] [address] [place] [id number] Dynam[employer] Tender: Amna Clements MD Chloride [Moles/Vol] 101 mmol/L Normal 98-107 [facility] Comment on above: Performed By: #### B MPX, LIP, LIVP, CDP #### [facility] [address] [place], [place] [id number] Dynam[employer] Tender: Amna Clements MD CO2 [Moles/Vol] 23 mmol/L Normal 20-31 [facility] Comment on above: Performed By: #### B MPX, LIP, LIVP, CDP #### [facility] [address] [place], [place] [address] Dynam[employer] Tender: Amna Clements MD Creatinine [Mass/Vol] 0.47 mg/dL Low 0.50-0.90 [facility] Comment on above: Performed By: #### B MPX, LIP, LIVP, CDP #### [facility] [address] [place], [place] [address] Dynam[employer] Tender: Amna Clements MD GFR, Amer >60 Normal >60 [facility] Comment on above: Performed By: #### B MPX, LIP, LIVP, CDP #### [facility] [address] [place], [place] [address] Dynamo Tender: Amna Clements MD GFR,non Amer >60 Normal >60 [facility] Comment on above: Performed By: #### B MPX, LIP, LIVP, CDP #### [facility] [address] [place], [place] [address] Dynamo Tender: Amna Clements MD Glucose [Mass/Vol] 106 mg/dL High 70-99 [facility] Comment on above: Performed By: #### B MPX, LIP, LIVP, CDP #### [facility] [address] [place], [place] [address] Dynam[employer] Tender: Amna Clements MD Potassium [Moles/Vol] 3.7 mmol/L Normal 3.7-5.3 [facility] Comment on above: Performed By: #### B MPX, LIP, LIVP, CDP #### [facility] [address] [place] [address] Dynamo Tender: Amna Clements MD Sodium [Moles/Vol] 136 mmol/L Normal 135-144 [facility] Comment on above: Performed By: #### B MPX, LIP, LIVP, CDP #### [facility] [address] [place] [address] Dynamo Tender: Amna Clements MD Staging: Normal [facility] Comment on above: Result Comment: Stag e 1: Some kidney damage normal GFR Stage 2: Mild kidney damage GFR 60-89 Stage 3: Moderate kidney damage GFR 30-59 Stage 4: Severe kidney damage GFR 15-29 Stage 5: Severe kidney damage GFR <15 ESRD - chronic treatment by dialysis or transplant Performed By: #### B MPX, LIP, LIVP, CDP #### [address] [place] [address] Dynamo Tender: Amna Clements MD Urea nitrogen [Mass/Vol] 9 mg/dL Normal - [facility] Comment on above: Performed By: #### B MPX, LIP, LIVP, CDP #### [facility] [address] [place] [address] Dynamo Tender: Amna Clements MD Basic Metabolic Panel w/ Ref ladi to MGOrdered By: Xena Lopez on 04-14-2021 Anion gap [Moles/Vol] 12 mmol/L 9 - 17 mmol/L [facility] Work Phone: Calcium [Mass/Vol] 8.8 mg/dL 8.6 - 10. 4 mg/dL [facility] [email or web address] Phone: Chloride [Moles/Vol] 101 mmol/L 98 - 10 7 mmol/L [facility] Work Phone: CO2 [Moles/Vol] 23 mmol/L 20 - 31 mmol/L [facility] [employer] Phone: Creatinine [Mass/Vol] 0.47 mg/dL Low 0.50 - 0.90 mg/dL [facility] [employer] Phone: GFR >60 >60 mL/min [facility] [employer] Phone: GFR Non- >60 >60 mL/min [facility] [employer] Work Phone: Glucose [Mass/Vol] 106 mg/dL High 70 - 99 mg/dL [facility] [employer] Work Phone: Interpretation and review of laboratory results Abnormal [facility] [employer] Phone: Potassium [Moles/Vol] 3.7 mmol/L 3.7 - 5.3 mmol/L [facility] [employer] Phone: Sodium [Moles/Vol] 136 mmol/L 135 - 144 mmol/L [facility] [employer] Phone: Urea nitrogen (BldV) [Mass/Vol] 9 mg/dL 6 - 20 mg/dL [facility] [email or web address] Phone: Urea nitrogen/Creatinine (Bld) [Mass ratio] 19 [facility] [employer] Work Phone: CBC Auto DifferentialOrdered By: Xena Lopez on 04-14-2021 Absolute Eos # 0.00 [facility] Work Phone: Absolute Immature Granulocyte 0.[address] [facility] Work Phone: Absolute Lymph # 2.00 [facility] Work Phone: Absolute Inyo # 1.78 High [facility] Work Phone: Basophils (Bld) [#/Vol] 0.00 10*3/uL [facility] [employer] Work Phone: Basophils/100 WBC (Bld) 0 % 0 - 2 % M [facility] [employer] Work Phone: Differential Type NOT REPORTED [employer] Phone: Eosinophils/100 WBC (Bld) 0 % Low 1 - 4 % [employer] Phone: Hematocrit (Bld) [Volume fraction] 38.4 % 36.3 - 47.1 % [employer] Phone: Hemoglobin.gastrointesti nal spec 1 Ql (Stl) 12.5 g/dL 11.9 - 15.1 g/dL [employer] Phone: Immature granulocytes/100 WBC (Bld) 0 % 0 [employer] Phone: Interpretation and review of laboratory results Abnormal [employer] Phone: Lymphocytes/100 WBC (Bld) 9 % Low 24 - 43 % [employer] Phone: MCH (RBC) [Entitic mass] 29.6 pg 25. 2 - 33.5 pg [employer] Phone: MCHC (RBC) [Mass/Vol] 32.6 g/dL 28.4 - 34.8 g/dL [employer] Phone: MCV (RBC) [Entitic vol] 91.0 fL 82.6 - 102.9 fL [employer] Phone: Monocytes/100 WBC (Bld) 8 % 3 - 12 % M [facility] Phone: Morphology Hay (Bld) [Interp] Normal [facility] Phone: NRBC Automated 0.0 0.0 per 100 WBC [employer] Phone: Platelet distribution width (Bld) [Ratio] 13.4 % 11.8 - 14.4 % [employer] Phone: Platelet Estimate NOT REPORTED [employer] Phone: Platelet mean volume (Bld) [Entitic vol] 10.2 fL 8.1 - 13.5 fL [employer] Phone: Platelets (Bld) [#/Vol] 321 10*3/uL [employer] Phone: RBC (Bld) [#/Vol] 4.22 10*6/uL 3.95 - 5.1 1 m/uL [employer] Phone: RBC (Bld) [#/Vol] NOT REPORTED [employer] Phone: Segmented neutrophils/100 WBC (Bld) 83 % High 36 - 65 % [employer] Work Phone: Segs Absolute 18.42 High [employer] Work Phone: WBC (Bld) [#/Vol] 22.2 10*3/uL High [employer] Phone: WBC (Bld) [#/Vol] NOT REPORTED [employer] Phone: [employer] Phone: CBC with Diffon 04-14-2021 Abs. Basophil 0.00 k/uL Normal 0.0-0.2 [facility] Comment on above: Performed By: #### S WCGP #### [facility] [address] [place] [address] [employer]: Collin De La Fuente MD Abs.Imm.Granulocyte 0.00 k/uL Normal 0.00-0.30 [facility] Comment on above: Performed By: #### S WCGP #### [facility] [place] [address] [employer]: Collin De La Fuente MD Abs.Neutrophil (Seg) 18.42 k/uL High 1.50-8.10 [facility] Comment on above: Performed By: #### S WCGP #### [facility] [place] [address] [employer]: Collin De La Fuente MD Basophils/100 WBC (Bld) 0 % Normal 0-2 [facility] Comment on above: Performed By: #### S WCGP #### [address] [address] [employer]: Collin De La Fuente MD Eosinophils (Bld) [#/Vol] 0.00 10*3/uL Normal 0.00-0.44 [facility] Comment on above: Performed By: #### S WCGP #### [address] [address] [employer]: Collin De La Fuente MD Eosinophils/100 WBC (Bld) 0 % Low 1-4 [facility] Comment on above: Performed By: #### S WCGP #### [address] [address] [employer]: Collin De La Fuente MD Immature granulocytes/100 WBC (Bld) 0 % Normal 0 [facility] Comment on above: Performed By: #### S WCGP #### [address] [address] [employer]: Collin De La Fuente MD Lymphocytes (Bld) [#/Vol] 2.00 10*3/uL Normal 1.10-3.70 [facility] Comment on above: Performed By: #### S WCGP #### [address] [address] [employer]: Collin De La Fuente MD Lymphocytes/100 WBC (Bld) 9 % Low 24-43 [facility] Comment on above: Performed By: #### S WCGP #### [address] [address] [employer]: Collin De La Fuente MD Monocytes (Bld) [#/Vol] 1.78 10*3/uL High 0.10-1.20 [facility] Comment on above: Performed By: #### S WCGP #### [address] [address] [employer]: Collin De La Fuente MD Monocytes/100 WBC (Bld) 8 % Normal 3-12 M [facility] Comment on above: Performed By: #### S WCGP #### [address] [address] [employer]: Collin De La Fuente MD Morphology Hay (Bld) [Interp] Normal Normal [facility] Comment on above: Performed By: #### S WCGP #### [address] [address] [employer]: Collin De La Fuente MD Neutrophil (Seg) 83 % High 36-65 [facility] Comment on above: Performed By: #### S WCGP #### [address] [address] [employer]: Collin De La Fuente MD Erythrocyte distribution width (RBC) [Ratio] 13.4 % Normal 11.8-14.4 [facility] Comment on above: Performed By: #### S WCGP #### [address] [address] [employer]: Collin De La Fuente MD Hematocrit (Bld) [Volume fraction] 38.4 % Normal 36.3-47.1 [facility] Comment on above: Performed By: #### S WCGP #### [address] [address] [employer]: Collin De La Fuente MD Hemoglobin (Bld) [Mass/Vol] 12.5 g/dL Normal 11.9-15.1 [facility] Comment on above: Performed By: #### S WCGP #### [address] [address] [employer]: Collin De La Fuente MD MCH (RBC) [Entitic mass] 29.6 pg Normal 25.2-33.5 [facility] Comment on above: Performed By: #### S WCGP #### [address] [address] [employer]: Collin De La Fuente MD MCHC (RBC) [Mass/Vol] 32.6 g/dL Normal 28.4-34.8 [facility] Comment on above: Performed By: #### S WCGP #### [address] [address] [employer]: Collin De La Fuente MD MCV (RBC) [Entitic vol] 91.0 fL Normal 82.6-102.9 [facility] Comment on above: Performed By: #### S WCGP #### [address] [address] [employer]: Collin De La Fuente MD NRBC Automated 0.0 per 100 WBC Normal 0.0 [facility] Comment on above: Performed By: #### S WCGP #### [address] [address] [employer]: Collin De La Fuente MD Platelet mean volume (Bld) [Entitic vol] 10.2 fL Normal 8.1-13.5 [facility] Comment on above: Performed By: #### S WCGP #### [address] [address] [employer]: Collin De La Fuente MD Platelets (Bld) [#/Vol] 321 10*3/uL Normal 138-453 [facility] Comment on above: Performed By: #### S WCGP #### [address] [address] [employer]: Collin De La Fuente MD RBC (Bld) [#/Vol] 4.22 10*6/uL Normal 3.95-5.11 [facility] Comment on above: Performed By: #### S WCGP #### [address] [address] [employer]: Collin De La Fuente MD WBC (Bld) [#/Vol] 22.2 10*3/uL High 3.5-11.3 [facility] Comment on above: Performed By: #### S WCGP #### [facility] [address] [place] [address] [employer]: Collin De La Fuente MD Auto Diff Performed NOT REPORTED Normal [facility] Comment on above: Performed By: #### S WCGP #### [facility] [address] [place] [address] [employer]: Collin De La Fuente MD Platelet Estimate NOT REPORTED Normal [facility] Comment on above: Performed By: #### S WCGP #### [facility] [address] [place] [address] [employer]: Collin De La Fuente MD RBC morphology finding Nom (Bld) NOT REPORTED Normal [facility] Comment on above: Performed By: #### S WCGP #### [facility] [address] [place] [address] [employer]: Collin De La Fuente MD WBC Morphology NOT REPORTED Normal [facility] Comment on above: Performed By: #### S WCGP #### [facility] [address] [place] [address] [employer]: Collin De La Fuente MD Hepatic Function PanelOrdere d By: Xena Lopez on 04-14-2021 Albumin [Mass/Vol] 3.7 g/dL 3.5 - 5.2 g/dL [employer] Phone: Albumin/Globulin [Mass ratio] 1.1 {ratio} [facility] Phone: ALP (Bld) [Catalytic activity/Vol] 68 U/L 35 - 104 U/L [facility] Phone: ALT [Catalytic activity/Vol] 36 U/L High 5 - 33 U/L [facility] Phone: AST [Catalytic activity/Vol] 37 U/L High <32 [employer] Phone: Bilirubin [Mass/Vol] mg/dL Low 0.3 - 1 .2 mg/dL [employer] Phone: Bilirubin, Indirect CANNOT BE CALCULATED 0.00 - 1.00 mg/dL [employer] Phone: Bilirubin.indirect [Mass/Vol] mg/dL <0.31 mg/dL [employer] Phone: Free PSA/Total PSA [Mass fraction] 7.0 g/dL 6.4 - 8.3 g/dL [employer] Phone: Globulin NOT REPORTED 1.5 - 3.8 g/dL [employer] Phone: Interpretation and review of laboratory results Abnormal [employer] Phone: [employer] Phone: Laboratory - Chemistry and C hemistry - challengeOrdered By: Xena Lopez on 04-14-2021 GFR/1.73 sq M.predicted MDRD (S/P/Bld) [Vol rate/Area] [employer] Phone: Comment on above: Average GFR for 20-2 9 years old: 116 mL/min/1.73sq m Chronic Kidney Disease: <60 mL/min/1.73sq m Kidney failure: <15 mL/min/1.73sq m eGFR calculated using average adult body mass. Additional eGFR calculator available at: http://[email or web address].LLUSTRE/multiple_crcl_2011.htm Stage 1: Some kidney damage normal GFR Stage 2: Mild kidney damage GFR 60-89 Stage 3: Moderate kidney damage GFR 30-59 Stage 4: Severe kidney damage GFR 15-29 Stage 5: Severe kidney damage GFR <15 ESRD - chronic treatment by dialysis or transplant Lipaseon 04-14-2021 Lipase [Catalytic activity/Vol] 40 U/L Normal 13-60 [facility] Comment on above: Performed By: #### B MPX, LIP, LIVP, CDP #### [facility] [address] [place] [address] [employer]: Amna Clements MD LipaseOrdered By: Brandy on 04-14-2021 Lipase [Catalytic activity/Vol] 40 U/L 13 - 60 U/L [facility] Work Phone: Liver Profileon 04-14-2021 Bilirubin [Mass/Vol] mg/dL Low 0.3-1.2 [facility] Comment on above: Performed By: #### B MPX, LIP, LIVP, CDP #### [facility] [address] [place] [address] [place] [address] [employer]: Amna Clements MD Bilirubin, Indirect CANNOT BE CALCULATED Normal 0.00-1 .00 [facility] Comment on above: Performed By: #### B MPX, LIP, LIVP, CDP #### [address] [place] [address] [employer]: Amna Clements MD Albumin [Mass/Vol] 3.7 g/dL Normal 3.5-5.2 [facility] Comment on above: Performed By: #### B MPX, LIP, LIVP, CDP #### [facility] [address] [place] [address] [place] [address] [employer]: Amna Clements MD Albumin/Glob Ratio 1.1 Normal 1.0-2.5 [facility] Comment on above: Performed By: #### B MPX, LIP, LIVP, CDP #### [facility] [address] [place] [address] [place] [address] [employer]: Amna Clements MD Alkaline Phos 68 U/L Normal 35-104 [facility] Comment on above: Performed By: #### B MPX, LIP, LIVP, CDP #### [facility] [address] [place] [address] [place], [place] [phone] [employer]: Amna Clements MD ALT [Catalytic activity/Vol] 36 U/L High 5-33 [facility] Comment on above: Performed By: #### B MPX, LIP, LIVP, CDP #### [facility] [address] [place], [place] [phone] [employer]: Amna Clements MD AST [Catalytic activity/Vol] 37 U/L High <32 [facility] Comment on above: Performed By: #### B MPX, LIP, LIVP, CDP #### [facility] [address] [place], [place] [phone] [employer]: Amna Clements MD Bilirubin.indirect [Mass/Vol] mg/dL Normal <0.31 [facility] Comment on above: Performed By: #### B MPX, LIP, LIVP, CDP #### [address] [place], [place] [phone] [employer]: Amna Clements MD Protein [Mass/Vol] 7.0 g/dL Normal 6.4-8.3 [facility] Comment on above: Performed By: #### B MPX, LIP, LIVP, CDP #### [facility] [address] [place] [address] [place] [place], [place] [phone] [employer]: Amna Clements MD Globulin Fraction NOT REPORTED Normal 1.5-3.8 [facility] Comment on above: Performed By: #### B MPX, LIP, LIVP, CDP #### [address] [place], [place] [phone] [employer]: Amna Clements MD Microscopic UrinalysisOrdere d By: Xena Lopez on 04-14-2021 - [facility] Work Phone: Amorphous, UA NOT REPORTED None [facility] Work Phone: Bacteria, UA TRACE Abnormal None [facility] Work Phone: Casts UA NOT REPORTED /LPF [facility] Work Phone: Crystals, UA NOT REPORTED None /HPF [facility] Work Phone: Epithelial Cells UA [address] [facility] Phone: Interpretation and review of laboratory results Abnormal [facility] Phone: Mucus, UA TRACE Abnormal None [facility] Phone: Other Observations UA NOT REPORTED NOT REQ. M [facility] [employer] Work Phone: RBC, UA 0 TO 2 [facility] [employer] Work Phone: Renal Epithelial, UA NOT REPORTED 0 /HPF [facility] [employer] Work Phone: Trichomonas, UA NOT REPORTED None [facility] Work Phone: WBC, UA 0 TO 2 [facility] [employer] Phone: Yeast, UA NOT REPORTED None [facility] [employer] Phone: [facility] [employer] Phone: No Panel InformationOrdered By: Xena Lopez on 04-14-2021 [facility] Phone: UA w/Reflex Cultureon 2020 Bilirubin, SemiQt,Ur Negative Normal NEG [facility] Comment on above: Performed By: #### S WCGP #### [facility] [address] [place] [phone] [employer]: Collin De La Fuente MD Blood, Urine Negative Normal NEG [facility] Comment on above: Performed By: #### S WCGP #### [employer] [address] [place] [address] [phone] [employer]: Collin De La Fuente MD Clarity (U) CLEAR Normal CLEAR [facility] Comment on above: Performed By: #### S WCGP #### [facility] [address] [place] [address] [employer]: Collin De La Fuente MD Color (U) YELLOW Normal YEL [facility] Comment on above: Performed By: #### S WCGP #### [facility] [address] [place] [address] [place] [address] [employer]: Collin De La Fuente MD Glucose Ql (U) Negative Normal NEG [facility] Comment on above: Performed By: #### S WCGP #### [address] [address] [employer]: Collin De La Fuente MD Ketones Ql (U) TRACE Abnormal NEG [facility] Comment on above: Performed By: #### S WCGP #### [address] [address] [employer]: Collin De La Fuente MD Leukocyte esterase Test strip Ql (U) Negative Normal NEG [facility] Comment on above: Performed By: #### S WCGP #### [address] [address] [employer]: Collin De La Fuente MD Nitrite,Ur Negative Normal NEG [facility] Comment on above: Performed By: #### S WCGP #### [address] [address] [employer]: Collin De La Fuente MD PH,Ur 5.5 Normal 5.0-9.0 [facility] Comment on above: Performed By: #### S WCGP #### [address] [address] [employer]: Collin De La Fuente MD Protein Ql (U) TRACE Abnormal NEG [facility] Comment on above: Performed By: #### S WCGP #### [address] [address] [employer]: Collin De La Fuente MD Spec. [place],Ur >1.030 High 1.010-1.020 [facility] Comment on above: Performed By: #### S WCGP #### [address] [address] [employer]: Collin De La Fuente MD Urobilinogen,Ur Normal Normal NORM [facility] Comment on above: Performed By: #### S WCGP #### [facility] [address] [place], [place] [phone] [employer]: Collin De La Fuente MD Comment NOT REPORTED Normal [facility] Comment on above: Performed By: #### S WCGP #### [facility] [address] [place], [place] [phone] [employer]: Collin De La Fuente MD Urinalysis Reflex to Culture Ordered By: Xena Lopez on 04-14-2021 Bilirubin Urine Negative NEGATIVE [facility] Work Phone: Color, UA YELLOW YELLOW [facility] [employer] Work Phone: Glucose, Ur Negative NEGATIVE [facility] Work Phone: Interpretation and review of laboratory results Abnormal [facility] [employer] Work Phone: Ketones Ql (U) TRACE Abnormal NEGATIVE [facility] Work Phone: Leukocyte esterase Test strip Ql (U) Negative NEGATIVE [facility] Work Phone: Nitrite, Urine Negative NEGATIVE [facility] Work Phone: pH, UA 5.5 [facility] [employer] Work Phone: Protein, UA TRACE Abnormal NEGATIVE [facility] [email or web address] Phone: Specific [place], UA >1.030 High [facility] [employer] Work Phone: Turbidity UA CLEAR CLEAR [facility] Work Phone: Urinalysis Comments NOT REPORTED [facility] [employer] Work Phone: Urine Hgb Negative NEGATIVE [facility] Work Phone: Urobilinogen, Urine Normal Normal [facility] Work Phone: [facility] Work Phone: Urinalysis,Microon ----- Normal [facility] Comment on above: Performed By: #### U MICAO, UA #### [facility] [address] [place], [place] [phone] [employer]: Amna Clements MD Bacteria TRACE Abnormal [facility] Comment on above: Performed By: #### U MICAO, UA #### [facility] [address] [place], [place] [phone] [employer]: Amna Celments MD Epithelial cells LM Ql (Urine sed) 10 TO 20 Normal 0-25 [facility] Comment on above: Performed By: #### U MICAO, UA #### [facility] [address] [place], [place] 2007883 [employer]: Amna Clements MD Mucus Strands TRACE Abnormal NONE [facility] Comment on above: Performed By: #### U MICAO, UA #### [facility] [address] [place] [address] [place] [place], [place] [phone] [employer]: Amna Clements MD Urine RBC's 0 TO 2 Normal 0-2 [facility] Comment on above: Performed By: #### U MICAO, UA #### [facility] [address] [place] [address] [place], [place] [phone] [employer]: Amna Clements MD Urine WBC's 0 TO 2 Normal 0-5 [facility] Comment on above: Performed By: #### U MICAO, UA #### [facility] [address] [place], [place] [phone] [employer]: Amna Clements MD Amorphous sediment LM Ql (Urine sed) NOT REPORTED Normal [facility] Comment on above: Performed By: #### U MICAO, UA #### [facility] [address] [place], [place] [phone] [employer]: Amna Clements MD Casts NOT REPORTED Normal [facility] Comment on above: Performed By: #### U MICAO, UA #### [facility] [address] [place] [address] [employer]: Amna Clements MD Crystals LM Nom (Urine sed) NOT REPORTED Normal [facility] Comment on above: Performed By: #### U MICAO, UA #### [facility] [address] [place] [address] [employer]: Amna Clements MD Epithelial, Renal NOT REPORTED Normal [address] [place] [address] Comment on above: Performed By: #### U MICAO, UA #### [facility] [address] [place] [address] [employer]: Amna Clements MD Other Observations NOT REPORTED [facility] Comment on above: Performed By: #### U MICAO, UA #### [facility] [address] [place] [address] [place] [address] [employer]: Amna Clements MD Trichomonas NOT REPORTED Normal [facility] Comment on above: Performed By: #### U MICAO, UA #### [facility] [address] [place], [place] [phone] [employer]: Amna Clements MD Yeast NOT REPORTED Normal [facility] Comment on above: Performed By: #### U MICAO, UA #### [facility] [address] [place] [address] [place] [place], [place] [phone] [employer]: Amna Clements MD D-Dimer Teston 03-24-2021 D-Dimer Test 0.44 mg/L FEU Normal 0.00-0.59 [facility] Comment on above: Result Comment: When combined with a low clinical probability, a D dimer value of <0.50 mg/L FEU is considered negative for DVT and PE (negative predictive value of 98%, sensitivity of 97%). If this test is not being used to help rule out DVT and PE, then the following reference range should be utilized: 0.00 - 0.59 mg/L FEU. The D-Dimer assay is intended for use as an aid in the diagnosis of venous thromboembolism (DVT and PE) and the results should be interpreted in conjunction with the patient's medical history, clinical presentation, and other findings. Elevated levels of D-dimer activity can be seen in any state of coagulation activation and is not recommended in patients with therapeutic dose anticoagulant therapy for >24 hours, fibrinolytic therapy within the previous 7 days, trauma or surgery within the previous 4 weeks, disseminated malignancies, aortic aneurysm, sepsis, severe infections, pneumonia, severe skin infections, liver cirrhosis, advanced age, coronary disease, diabetes, and . A very low percentage of patients with DVT may yield D-dimer results below the cutoff of 0.5 mg/L FEU. This is known to be more prevalent in patients with distal DVT. Performed By: #### S [facility] #### [facility] [address] [place] [address] [employer]: Collin De La Fuente MD D-Dimer, QuantitativeOrdered By: Star Núñez on 03-23-2021 D-Dimer, Quant 0.44 [employer] [facility] Work Phone: Comment on above: When combined with a low clinical probability, a D dimer value of <0.50 mg/L FEU is considered negative for DVT and PE (negative predictive value of 98%, sensitivity of 97%). If this test is not being used to help rule out DVT and PE, then the following reference range should be utilized: 0.00 - 0.59 mg/L FEU. The D-Dimer assay is intended for use as an aid in the diagnosis of venous thromboembolism (DVT and PE) and the results should be interpreted in conjunction with the patient's medical history, clinical presentation, and other findings. Elevated levels of D-dimer activity can be seen in any state of coagulation activation and is not recommended in patients with therapeutic dose anticoagulant therapy for >24 hours, fibrinolytic therapy within the previous 7 days, trauma or surgery within the previous 4 weeks, disseminated malignancies, aortic aneurysm, sepsis, severe infections, pneumonia, severe skin infections, liver cirrhosis, advanced age, coronary disease, diabetes, and . A very low percentage of patients with DVT may yield D-dimer results below the cutoff of 0.5 mg/L FEU. This is known to be more prevalent in patients with distal DVT. Chlamydia/GC,DNA Ampon 03-11 Chlamydia Probe Negative Normal NEG [facility] Comment on above: Result Comment: CHLA MYDIA TRACHOMATIS DNA not detected by nucleic acid amplification. This test is intended for medical purposes only and is not valid for the evaluation of suspected sexual abuse or for other forensic purposes. In certain contexts, culture may be required to meet applicable laws and regulations for diagnosis of C. trachomatis and N. gonorrhoeae infections. Per 2014 CDC recommendations, this test does not include confirmation of positive results by an alternative nucleic acid target. Performed By: #### S WCGP #### [address] [phone] [employer]: Collin De La Fuente MD Gonorrhea Probe Negative Normal [facility] Comment on above: Result Comment: NEIS SERIA GONORRHOEAE DNA not detected by nucleic acid amplification. This test is intended for medical purposes only and is not valid for the evaluation of suspected sexual abuse or for other forensic purposes. In certain contexts, culture may be required to meet applicable laws and regulations for diagnosis of C. trachomatis and N. gonorrhoeae infections. Per 2014 CDC recommendations, this test does not include confirmation of positive results by an alternative nucleic acid target. Performed By: #### S WCGP #### [address] [id number] [employer]: Collin De La Fuente MD Cult,Urineon 03-11-2021 Cult,Urine Specimen Description .CLEAN CATCH URINE Special Requests NOT REPORTED Culture NO SIGNIFICANT GROWTH Report Status FINAL 03/11/2021 Normal [facility] Comment on above: Performed By: #### U #### [address] [id number] [employer]: Collin De La Fuente MD [facility] [address] [place] [address] [place] [address] [employer]: Amna Clements MD HCG, ,Urineon 03-10 Beta HCG ( test) Ql (U) Positive Abnormal [facility] Comment on above: Result Comment: If HCG results do not concur with clinical observations, additional testing to confirm result is recommended. This test is not labeled for use as a tumor marker. [facility] has confirmed the use of plasma for this test. This has not been cleared or approved by the U.S. Food and Drug Administration. The FDA has determined that such clearance is not necessary. Performed By: #### S WCGP #### [address] [place] [address] [employer]: Collin De La Fuente MD Trichomonas/Wet Prepon 03-10 Trichomonas/Wet Prep Specimen Descriptio n .VAGINA Special Requests NOT REPORTED Direct Exam NO TRICHOMONAS SEEN NO YEAST OBSERVED RARE CLUE CELLS SEEN Report Status FINAL 03/10/2021 Normal [facility] Comment on above: Performed By: #### W P #### [facility] [address] [place] [address] Dynamo Tender: Amna Clements MD UA w/Reflex Cultureon 2020 Acetoacetic Acid,Ur Negative Normal NEG [facility] Comment on above: Performed By: #### S WCGP #### [address] [address] Dynamo Tender: Collin De La Fuente MD Bilirubin, SemiQt,Ur Negative Normal NEG [facility] Comment on above: Performed By: #### S WCGP #### [address] [address] Dynamo Tender: Collin De La Fuente MD Color (U) [facility]LLOW [facility] Comment on above: Performed By: #### S WCGP #### [address] [address] Dynamo Tender: Collin De La Fuente MD Glucose Ql (U) Negative Normal NEG [facility] in [facility] Comment on above: Performed By: #### S WCGP #### [address] [address] Dynamo Tender: Collin De La Fuente MD Hemoglobin, Ur Negative Normal NEG [facility] Comment on above: Performed By: #### S WCGP #### [address] [address] Dynamo Tender: Collin De La Fuente MD Leukocyte esterase Test strip Ql (U) LARGE Abnormal NEG [facility] Comment on above: Performed By: #### S WCGP #### [address] [address] Dynamo Tender: Collin De La Fuente MD Nitrite,Ur Negative Normal NEG [facility] Comment on above: Performed By: #### S WCGP #### [address] [address] Dynamo Tender: Collin De La Fuente MD PH,Ur 7.5 Normal 5.0-9.0 [facility] Comment on above: Performed By: #### S WCGP #### [address] [address] Dynamo Tender: Collin De La Fuente MD Protein Ql (U) Negative Normal NEG [facility] Comment on above: Performed By: #### S WCGP #### [address] [address] Dynamo Tender: Collin De La Fuente MD Spec. [place],Ur 1.020 Normal 1.010-1.020 [facility] Comment on above: Performed By: #### S WCGP #### [address] [address] Dynamo Tender: Collin De La Fuente MD Turbidity CLOUDY Abnormal CLEAR [facility] Comment on above: Performed By: #### S WCGP #### [address] [address] Dynamo Tender: Collin De La Fuente MD Urobilinogen,Ur Normal Normal NORM [facility] Comment on above: Performed By: #### S WCGP #### [address] [address] Dynamo Tender: Collin De La Fuente MD Comment NOT REPORTED Normal [facility] Comment on above: Performed By: #### S WCGP #### [facility] [employer] [address] [place] [address] Dynamo Tender: Collin De La Fuente MD Urinalysis,Microon 1 ----- Normal [facility] Comment on above: Performed By: #### S WCGP #### [address] [address] Dynamo Tender: Collin De La Fuente MD Amorphous sediment LM Ql (Urine sed) 1+ Abnormal NONE [facility] Comment on above: Performed By: #### S WCGP #### [address] [address] Dynamo Tender: Collin De La Fuente MD Bacteria 3+ Abnormal NONE [facility] Comment on above: Performed By: #### S WCGP #### [address] [address] Dynamo Tender: Collin De La Fuente MD Epithelial cells LM Ql (Urine sed) 20 TO 50 Normal 0-25 [facility] Comment on above: Performed By: #### S WCGP #### [address] [address] Dynamo Tender: Collin De La Fuente MD Urine RBC's None Normal 0-2 [facility] Comment on above: Performed By: #### S WCGP #### [facility] [employer] [address] [place] [address] Dynamo Tender: Collin De La Fuente MD Urine WBC's 10 TO 20 Normal 0-5 [facility] Comment on above: Performed By: #### S WCGP #### [facility] [employer] [address] [place] [address] Dynamo Tender: Collin De La Fuente MD Casts NOT REPORTED Normal [facility] Comment on above: Performed By: #### S WCGP #### [facility] [employer] [address] [place] [address] Dynamo Tender: Collin De La Fuente MD Crystals LM Nom (Urine sed) NOT REPORTED Normal NONE [facility] Comment on above: Performed By: #### S WCGP #### [address] [address] Dynamo Tender: Collin De La Fuente MD Epithelial, Renal NOT REPORTED Normal 0 [facility] Comment on above: Performed By: #### S WCGP #### [address] [address] Dynamo Tender: Collin De La Fuente MD Mucus Strands NOT REPORTED Normal NONE [facility] Comment on above: Performed By: #### S WCGP #### [address] [address] Dynamo Tender: Collin De La Fuente MD Other Observations NOT REPORTED Normal NREQ [facility] Comment on above: Performed By: #### S WCGP #### [address] [address] Dynamo Tender: Collin De La Fuente MD Trichomonas NOT REPORTED Normal NONE [facility] Comment on above: Performed By: #### S WCGP #### [address] [address] Dynamo Tender: Collin De La Fuente MD Yeast NOT REPORTED Normal [facility] Comment on above: Performed By: #### S WCGP #### [address] [address] Dynamo Tender: Collin De La Fuente MD Cult,Urineon 03-02-2021 Cult,Urine Specimen Description .CLEAN CATCH URINE Special Requests NOT REPORTED Culture NO SIGNIFICANT GROWTH Report Status FINAL 03/02/2021 Normal [facility] Comment on above: Performed By: #### U RC #### [address] [address] Dynamo Tender: Collin De La Fuente MD [facility] [address] [place] [address] Dynamo Tender: Amna Clements MD C. Trachomatis, External Res ultOrdered By: Historical Provider on 03-01-2021 C. Trachomatis, External Result Negative [facility] [employer] Work Phone: Comment on above: William Joel RN/confirmed with Igor Kinsey RN N. Gonorrhoeae, External Res ultOrdered By: Historical Provider on 03-01-2021 N. Gonorrhoeae, External Result Negative [facility] [employer] Work Phone: Comment on above: William Joel RN/confirmed with Igor Kinsey RN No Panel InformationOrdered By: Historical Provider on 03-01-[facility]: Microscopic Urinalysison Amorphous, UA NOT REPORTED None [facility] Work Phone: Bacteria, UA NOT REPORTED None [facility] Work Phone: Casts UA NOT REPORTED /LPF [facility] [employer] Work Phone: Crystals, UA NOT REPORTED None /HPF [facility] Work Phone: Epithelial Cells UA 50 TO 100 [facility] [employer] Work Phone: Mucus, UA NOT REPORTED None [facility] [employer] Work Phone: Other Observations UA NOT REPORTED NOT REQ. M [facility] [employer] Work Phone: RBC (U) [#/Vol] [address] [facility] Work Phone: Renal Epithelial, UA NOT REPORTED 0 /HPF [facility] Work Phone: Trichomonas, UA NOT REPORTED None [facility] Work Phone: WBC, UA 20 TO 50 [facility] [employer] Work Phone: Yeast, UA NOT REPORTED None [facility] [employer] Work Phone: - [facility] [employer] Work Phone: Otheron 02-28-2021 Living intrauterine with an estimated gestational age of 13 weeks and 1 day by current ultrasound [employer] Phone: Dario, Mh[employer] Incoming Radiant Results From [employer] - 02/28/2021 1:48 PM EDT EXAMINATION: TRANSABDOMINAL FIRST TRIMESTER OBSTETRIC PELVIC ULTRASOUND WITH COLOR DOPPLER FLOW; ULTRASOUND OF THE SCROTUM/TESTICLES WITH COLOR DOPPLER FLOW EVALUATION 02/28/2021 TECHNIQUE: TRANSABDOMINAL PELVIC ULTRASOUND WITH COLOR DOPPLER FLOW COMPARISON: None HISTORY: ORDERING SYSTEM PROVIDED HISTORY: LLQ pain, h/o ovarian cysts, 14 weeks TECHNOLOGIST PROVIDED HISTORY: LLQ pain, h/o ovarian cysts, 14 weeks FINDINGS: Uterus: Uterus is unremarkable in appearance measuring 12.1 x 9.6 x 8.7 cm Gestational Sac(s): Single normal appearing gestational sac. No evidence of subchorionic hemorrhage. Yolk Sac: Not present. Placenta is noted posteriorly to the right. Pole: Single pole Seadrift Rump Length: 6.8 cm Heart Rate: 160 beats per minute Right ovary: Right ovary is normal in appearance measuring 2.4 x 2.8 x 0.9 cm Left ovary: Left ovary is normal in appearance measuring 2.3 x 1.7 x 1.3 cm Free fluid: No free fluid Measurements: Estimated gestational age by current ultrasound: 13 weeks 1 day Estimated gestational by LMP/prior ultrasound: 13 weeks 6 days Estimated Due Date: 09/04/2021, 08/30/2021 respectively IMPRESSION: Living intrauterine with an estimated gestational age of 13 weeks and 1 day by current ultrasound [employer] Phone: EXAMINATION: TRANSABDOMINAL FIRST TRIMESTER OBSTETRIC PELVIC ULTRASOUND WITH COLOR DOPPLER FLOW; ULTRASOUND OF THE SCROTUM/TESTICLES WITH COLOR DOPPLER FLOW EVALUATION 02/28/2021 TECHNIQUE: TRANSABDOMINAL PELVIC ULTRASOUND WITH COLOR DOPPLER FLOW COMPARISON: None HISTORY: ORDERING SYSTEM PROVIDED HISTORY: LLQ pain, h/o ovarian cysts, 14 weeks TECHNOLOGIST PROVIDED HISTORY: LLQ pain, h/o ovarian cysts, 14 weeks FINDINGS: Uterus: Uterus is unremarkable in appearance measuring 12.1 x 9.6 x 8.7 cm Gestational Sac(s): Single normal appearing gestational sac. No evidence of subchorionic hemorrhage. Yolk Sac: Not present. Placenta is noted posteriorly to the right. Pole: Single pole Seadrift Rump Length: 6.8 cm Heart Rate: 160 beats per minute Right ovary: Right ovary is normal in appearance measuring 2.4 x 2.8 x 0.9 cm Left ovary: Left ovary is normal in appearance measuring 2.3 x 1.7 x 1.3 cm Free fluid: No free fluid Measurements: Estimated gestational age by current ultrasound: 13 weeks 1 day Estimated gestational by LMP/prior ultrasound: 13 weeks 6 days Estimated Due Date: 09/04/2021, 08/30/2021 respectively [facility] [employer] Work Phone: US DUP ABD PEL RETRO SCROT L IMITEDon 02-28-2021 US DUP ABD PEL RETRO SCROT LIMITED EXAMINATION: TRANSABDOMINAL FIRST TRIMESTER OBSTETRIC PELVIC ULTRASOUND WITH COLOR DOPPLER FLOW; ULTRASOUND OF THE SCROTUM/TESTICLES WITH COLOR DOPPLER FLOW EVALUATION 02/28/2021 TECHNIQUE: TRANSABDOMINAL PELVIC ULTRASOUND WITH COLOR DOPPLER FLOW COMPARISON: None HISTORY: ORDERING SYSTEM PROVIDED HISTORY: LLQ pain, h/o ovarian cysts, 14 weeks TECHNOLOGIST PROVIDED HISTORY: LLQ pain, h/o ovarian cysts, 14 weeks FINDINGS: Uterus: Uterus is unremarkable in appearance measuring 12.1 x 9.6 x 8.7 cm Gestational Sac(s): Single normal appearing gestational sac. No evidence of subchorionic hemorrhage. Yolk Sac: Not present. Placenta is noted posteriorly to the right. Pole: Single pole Seadrift Rump Length: 6.8 cm Heart Rate: 160 beats per minute Right ovary: Right ovary is normal in appearance measuring 2.4 x 2.8 x 0.9 cm Left ovary: Left ovary is normal in appearance measuring 2.3 x 1.7 x 1.3 cm Free fluid: No free fluid Measurements: Estimated gestational age by current ultrasound: 13 weeks 1 day Estimated gestational by LMP/prior ultrasound: 13 weeks 6 days Estimated Due Date: 09/04/2021, 08/30/2021 respectively IMPRESSION: Living intrauterine with an estimated gestational age of 13 weeks and 1 day by current ultrasound Interpreted by: Mariano Min MD Signed by: Mariano Min MD 02/28/21 Final result Normal [facility] US OB LESS THAN 14 WEEKS SIN GLE OR FIRST GESTATIONon 02-28-2021 US OB LESS THAN 14 WEEKS SINGLE OR FIRST GESTATION EXAMINATION: TRANSABDOMINAL FIRST TRIMESTER OBSTETRIC PELVIC ULTRASOUND WITH COLOR DOPPLER FLOW; ULTRASOUND OF THE SCROTUM/TESTICLES WITH COLOR DOPPLER FLOW EVALUATION 02/28/2021 TECHNIQUE: TRANSABDOMINAL PELVIC ULTRASOUND WITH COLOR DOPPLER FLOW COMPARISON: None HISTORY: ORDERING SYSTEM PROVIDED HISTORY: LLQ pain, h/o ovarian cysts, 14 weeks TECHNOLOGIST PROVIDED HISTORY: LLQ pain, h/o ovarian cysts, 14 weeks FINDINGS: Uterus: Uterus is unremarkable in appearance measuring 12.1 x 9.6 x 8.7 cm Gestational Sac(s): Single normal appearing gestational sac. No evidence of subchorionic hemorrhage. Yolk Sac: Not present. Placenta is noted posteriorly to the right. Pole: Single pole Seadrift Rump Length: 6.8 cm Heart Rate: 160 beats per minute Right ovary: Right ovary is normal in appearance measuring 2.4 x 2.8 x 0.9 cm Left ovary: Left ovary is normal in appearance measuring 2.3 x 1.7 x 1.3 cm Free fluid: No free fluid Measurements: Estimated gestational age by current ultrasound: 13 weeks 1 day Estimated gestational by LMP/prior ultrasound: 13 weeks 6 days Estimated Due Date: 09/04/2021, 08/30/2021 respectively IMPRESSION: Living intrauterine with an estimated gestational age of 13 weeks and 1 day by current ultrasound Interpreted by: Mariano Min MD Signed by: Mariano Min MD 02/28/21 Final result Normal [facility] Urinalysis, Routineon 2020 Acetoacetic Acid,Ur Negative Normal NEG [facility] Comment on above: Performed By: #### U NILAM UA #### [facility] [address] [place] [address] Dynamo Tender: Amna Clements MD Bilirubin, SemiQt,Ur Negative Normal NEG [facility] Comment on above: Performed By: #### U NILAM UA #### [facility] [address] [place] [address] Dynamo Tender: Amna Clements MD Color (U) YELLOW Normal YEL [facility] Comment on above: Performed By: #### U NILAM UA #### [facility] [address] [place] [address] [address] [place], [place] [id number] Dynamo Tender: Amna Clements MD Glucose Ql (U) Negative Normal NEG [facility] Comment on above: Performed By: #### U MICAO, UA #### [facility] [address] [place] [address] [address]. [place], [place] [phone] Dynamo Tender: Amna Clements MD Hemoglobin, Ur Negative Normal NEG [facility] Comment on above: Performed By: #### U MICAO, UA #### [facility] [address] [place] [address] [place] [address] Dynamo Tender: Amna Clements MD Leukocyte esterase Test strip Ql (U) MODERATE Abnormal NEG [facility] Comment on above: Performed By: #### U MICAO, UA #### [address] [place], [place] [phone] Dynamo Tender: Amna Clements MD Nitrite,Ur Negative Normal NEG [facility] Comment on above: Performed By: #### U MICAO, UA #### [address] [place], [place] [phone] Dynamo Tender: Amna Clements MD PH,Ur 7.5 Normal 5.0-9.0 [facility] Comment on above: Performed By: #### U MICAO, UA #### [facility] [address] [place] [address] Dr. [place], [facility] Dynamo Tender: Amna Clements MD Protein Ql (U) Negative Normal NEG [facility] Comment on above: Performed By: #### U MICAO, UA #### [facility] [address] [place] [address] [address] [place], [place] [phone] Dynamo Tender: Amna Clements MD Spec. [place],Ur 1.020 Normal 1.010-1.020 [facility] Comment on above: Performed By: #### U MICAO, UA #### [facility] [address] [place] [address] [place] [address] Dynamo Tender: Amna Clements MD Turbidity CLEAR Normal CLEAR [facility] Comment on above: Performed By: #### U MICAO, UA #### [facility] [address] [place], [place] [phone] Dynamo Tender: Amna Clements MD Urobilinogen,Ur Normal Normal NORM [facility] Comment on above: Performed By: #### U MICAO, UA #### [facility] [address] [place], [place] [phone] Dynamo Tender: Amna Clements MD Comment NOT REPORTED Normal [facility] Comment on above: Performed By: #### U MICAO, UA #### [facility] [address] [place] [address] Dynamo Tender: Amna Clements MD Urinalysis, reflex to micros copicon 02-28-2021 Bilirubin Urine Negative [facility]IVE [facility] Work Phone: Color, UA YELLOW YELLOW [facility] Work Phone: Glucose, Ur Negative NEGATIVE [facility] Work Phone: Interpretation and review of laboratory results Abnormal [facility] Work Phone: Ketones Ql (U) Negative NEGATIVE [facility] Work Phone: Leukocyte esterase Test strip Ql (U) MODERATE Abnormal NEGATIVE [facility] Work Phone: Nitrite, Urine Negative NEGATIVE [facility] Work Phone: pH, UA 7.[address] [facility] Work Phone: Protein (U) [Mass/Vol] Negative NEGATIVE [facility] Work Phone: Specific [place], UA 1.020 [facility] Work Phone: Turbidity UA CLEAR CLEAR [facility] Work Phone: Urinalysis Comments NOT REPORTED [facility] Work Phone: Urine Hgb Negative NEGATIVE [facility] [email or web address] Phone: Urobilinogen, Urine Normal Normal [facility] [email or web address] Phone: Urinalysis,Microon 1 ----- Normal [facility] Comment on above: Performed By: #### U MICAO, UA #### [facility] [address] [place], [place] 9547783 Dynamo Tender: Amna Clements MD Epithelial cells LM Ql (Urine sed) 50 TO 100 Normal 0-25 [facility] Comment on above: Performed By: #### U ROSAO, UA #### [facility] [address] [place] [address] Dynamo Tender: Amna Clements MD Urine RBC's 0 TO 2 Normal 0-2 [facility] Comment on above: Performed By: #### U MICAO, UA #### [address] [place], [place] [phone] Dynamo Tender: Amna Clements MD Urine WBC's 20 TO 50 Normal 0-5 [facility] Comment on above: Performed By: #### U MICAO, UA #### [facility] [address] [place], [place] [phone] Dynamo Tender: Amna Clements MD Amorphous sediment LM Ql (Urine sed) NOT REPORTED Normal [facility] Comment on above: Performed By: #### U MICAO, UA #### [facility] [address] [place] [address] Dr. [place], [place] [phone] Dynamo Tender: Amna Clements MD Bacteria NOT REPORTED Normal [facility] Comment on above: Performed By: #### U MICAO, UA #### [facility] [address] [place], [place] [phone] Dynamo Tender: Amna Clements MD Casts NOT REPORTED Normal [facility] Comment on above: Performed By: #### U ROSAO, UA #### [facility] [address] [place], [place] [phone] Dynamo Tender: Amna Clements MD Crystals LM Nom (Urine sed) NOT REPORTED Normal [facility] Comment on above: Performed By: #### U ROSAO, UA #### [facility] [address] [place], [place] [phone] Dynamo Tender: Amna Clements MD Epithelial, Renal NOT REPORTED Normal 0 [facility] Comment on above: Performed By: #### U ROSAO, UA #### [facility] [address] [place], [place] [phone] Dynamo Tender: Amna Clements MD Mucus Strands NOT REPORTED Normal NONE [facility] Comment on above: Performed By: #### U ROSAO, UA #### [facility] [address] [place], [place] [phone] Dynamo Tender: Amna Clements MD Other Observations NOT REPORTED Normal NREQ [facility] Comment on above: Performed By: #### U ROSAO, UA #### [facility] [address] [place], [place] [phone] Dynamo Tender: Amna Clements MD Trichomonas NOT REPORTED Normal NONE [facility] Comment on above: Performed By: #### U ROSAO, UA #### [facility] [address] [place], [place] [phone] Dynamo Tender: Amna Clements MD Yeast NOT REPORTED Normal [facility] Comment on above: Performed By: #### U ROSAO, UA #### [facility] [address] [place] [address] Dynamo Tender: Amna Clements MD ABO, External ResultOrdered By: Historical Provider on 02-17-2021 ABO, External Result AB [facility] Work Phone: Comment on above: R Homecroft RN/confirmed with Igor Kinsey RN HIV, External ResultOrdered By: Historical Provider on 02-17-2021 HIV, External Result Non-Reactive [employer] Phone: Comment on above: William Joel RN/confirmed with Igor Kinsey RN Hepatitis B, External Result Ordered By: Historical Provider on 02-17-2021 Hep B, External Result Negative [employer] Phone: Comment on above: William Joel RN/confirmed with Igor Kinsey RN Hepatitis C Antibody, Bunch Maker al ResultOrdered By: Historical Provider on 02-17-2021 Hepatitis C Antibody, External Result Negative [employer] Phone: Comment on above: William Joel RN/confirmed with Igor Kinsey RN No Panel InformationOrdered By: Historical Provider on 02-17-2021 [employer] Phone: RPR, External LabOrdered By: Historical Provider on 02-17-2021 RPR, External Result Non-Reactive [employer] Phone: Comment on above: William Joel RN/confirmed with Igor Kinsey RN Rh Factor, External ResultOr dered By: Historical Provider on 02-17-2021 Rh Factor, External Result Positive [employer] Phone: Comment on above: William Joel RN/confirmed with Igor Kinsey RN Rubella Titer, External Resu ltOrdered By: Historical Provider on 02-17-2021 Rubella Titer, External Result immune [employer] Phone: Comment on above: William Joel RN/confirmed with Igor Kinsey RN Vital Signs Date Time Vital Sign Value Performing Clinician Leydi carter 06-16-2021 23:58-0400 Diastolic blood pressure 62 mm[Hg] Concetta Obrien APRN - CN Work Phone: [employer] Phone: 06-16-2021 23:58-0400 Heart rate 91 /min Concetta Obrien CHART READER - CNM Work Phone: [employer] Phone: 06-16-2021 23:58-0400 Respiratory rate 16 /min Concetta Obrien CHART READER - CNM Work Phone: [employer] Work Phone: 06-16-2021 23:58-0400 Systolic blood pressure 107 mm[Hg] Concetta Obrien CHART READER - CNM Work Phone: [employer] Work Phone: 06-16-2021 20:33-0400 Body temperature 97.7 [degF] Concetta Obrien CHART READER - CNM Work Phone: [employer] Work Phone: 05-24-2021 23:40-0400 Body temperature 97.9 [degF] Rema Pool CHART READER - CNM Work Phone: [employer] Work Phone: 05-24-2021 23:40-0400 Respiratory rate 20 /min Rema Pool CHART READER - CNM Work Phone: [employer] Work Phone: 05-24-2021 23:32-0400 Diastolic blood pressure 70 mm[Hg] Rema Pool CHART READER - CNM Work Phone: [employer] Work Phone: 05-24-2021 23:32-0400 Heart rate 109 /min Rema Pool CHART READER - CNM Work Phone: [employer] Work Phone: 05-24-2021 23:32-0400 Systolic blood pressure 120 mm[Hg] Rema Pool CHART READER - CNM Work Phone: [employer] Work Phone: 05-18-2021 08:59-0400 Diastolic blood pressure 55 mm[Hg] Concetta Obrien CHART READER - CNM Work Phone: [employer] Work Phone: 05-18-2021 08:59-0400 Heart rate 100 /min Concetta Gonzalez CNM Work Phone: [employer] Work Phone: 05-18-2021 08:59-0400 Systolic blood pressure 102 mm[Hg] Concetta Gonzalez CNM Work Phone: [employer] Work Phone: 05-18-2021 06:45-0400 Body height 154.9 cm Concetta Gonzalez [employer] Work Phone: [employer] Work Phone: 05-18-2021 06:45-0400 Body mass index (BMI) [Ratio] 29.29 kg/m2 Concetta Gonzalez CNM Work Phone: [employer] Work Phone: 05-18-2021 06:45-0400 Body weight 70.31 kg Concetta Gonzalez CNM Work Phone: [employer] Work Phone: 05-18-2021 06:41-0400 Body temperature 98.4 [degF] Concetta Gonzalez CNM Work Phone: [employer] Work Phone: 05-18-2021 06:41-0400 Respiratory rate 20 /min Concetta Gonzalez CNM Work Phone: [employer] Work Phone: 04-14-2021 03:30-0400 Diastolic blood pressure 65 mm[Hg] Xena Andes DO Work Phone: [employer] Work Phone: 04-14-2021 03:30-0400 SaO2% (BldA) [Mass fraction] 100 % Xena Andes DO Work Phone: [employer] Work Phone: 04-14-2021 03:30-0400 Systolic blood pressure 107 mm[Hg] Xena Andes DO Work Phone: [employer] Work Phone: 04-14-2021 01:57-0400 Heart rate 108 /min Xena Andes DO Work Phone: [employer] Work Phone: 04-14-2021 01:35-0400 Respiratory rate 16 /min Xena Andes DO Work Phone: [employer] Work Phone: 04-14-2021 01:33-0400 Body temperature 97.7 [degF] Xena Andes DO Work Phone: [employer] Work Phone: 03-23-2021 21:13-0400 Body temperature 97.59 [degF] Star Núñez MD Work Phone: [employer] Work Phone: 03-23-2021 21:13-0400 Diastolic blood pressure 70 mm[Hg] Star Núñez MD Work Phone: [employer] Work Phone: 03-23-2021 21:13-0400 Heart rate 98 /min Star Núñez MD Work Phone: [employer] Work Phone: 03-23-2021 21:13-0400 Respiratory rate 16 /min Star Núñez MD Work Phone: [employer] Work Phone: 03-23-2021 21:13-0400 SaO2% (BldA) [Mass fraction] 98 % Star Núñez MD Work Phone: [employer] Work Phone: 03-23-2021 21:13-0400 Systolic blood pressure 119 mm[Hg] Star Núñez MD Work Phone: [employer] Work Phone: 02-28-2021 12:28-0400 Body Temperature 97.81 [degF] Chanell Blood [employer] Phone: 02-28-2021 12:28-0400 BP Diastolic 72 mm[Hg] Chanell [employer] Phone: 02-28-2021 12:28-0400 BP Systolic 124 mm[Hg] Chanell [employer] Phone: 02-28-2021 12:28-0400 Pulse (Heart Rate) 97 /min Chanell [employer] Phone: 02-28-2021 12:28-0400 Pulse Oximetry 100 % Chanell [employer] Phone: 02-28-2021 12:28-0400 Respiratory Rate 15 /min Chanell [employer] Phone: Encounters Encounter Date Encounter Type Care Provider Facility Start: 03-20-2024 End: 03-20-2024 ambulatory GEO RIGO Not Available Start: 01-21-2024 End: 01-21-2024 ambulatory GEO RIGO Not Available Start: 01-15-2024 End: 01-16-2024 ambulatory MIGUEL CARBONE Not Available Start: 12-13-2023 End: 12-13-2023 ambulatory SINA JYOTHI Not Available Start: 11-08-2023 End: 11-08-2023 ambulatory SINA JYOTHI Not Available Start: 10-31-2023 End: 10-31-2023 ambulatory GEO RIGO Not Available Start: 10-24-2023 End: 10-24-2023 ambulatory GEO RIGO Not Available Start: 10-16-2023 End: 10-16-2023 ambulatory SINA JYOTHI Not Available Start: 10-10-2023 End: 10-10-2023 ambulatory GEO RIGO Not Available Start: 04-16-2023 End: 04-16-[address] NONE LISTED REQUEST Facility: Start: 04-16-2023 End: 04-17-[address] NONE LISTED REQUEST Facility: Start: 04-13-2023 End: 04-13-[address] KALPANA TAPIA . Facility:[facility] Start: 04-06-2023 End: 04-07-[address] GEO SIERRA . Facility:[facility] Start: 01-10-2023 ambulatory NONE LISTED REQUEST Facility:[facility] Start: 10-26-[address] NONE LISTED REQUEST Facility:[facility] Start: 10-13-2022 End: 10-13-[address] AMNA VALLADARES Facility:[facility] Start: 10-09-2022 End: 10-09-[address] DOCTOR BUCHANAN Facility:[facility] Start: 09-14-2022 End: 09-14-[address] CHANELL HOLLOWAY . Facility:[facility] Start: 07-07-2022 End: 07-08-[address] ALLRED MISC Facility:[facility] Start: 07-04-2022 End: 07-04-[address] ALLRED MISC Facility:[facility] Start: 07-04-2022 End: 07-05-[address] ALLRED MISC Facility:[facility] Start: 06-16-2021 End: 06-17-[address] [facility] Start: 06-16-2021 End: 06-17-2021 Subsequent hospital visit by physician Concetta Obrien CHART READER - CNM Work Phone: [facility] Labor and Delivery Start: 05-25-2021 End: 05-25-[address] [facility] Start: 05-24-2021 End: 05-25-2021 Subsequent hospital visit by physician Rema Dumont CHART READER - CNM Work Phone: [facility] Labor and Delivery Start: 05-18-2021 End: 05-18-2021 [facility] Start: 05-18-2021 End: 05-18-2021 Subsequent hospital visit by physician Concetta Obrien CHART READER - CNM Work Phone: [facility] Labor and Delivery Start: 04-14-2021 End: 04-14-2021 [facility] Start: 04-14-2021 End: 04-14-2021 Emergency department patient visit Xena Andbrian DO Work Phone: [facility] ED Comment on above: Nausea and vomiting during (Primary Dx) Start: 03-23-2021 End: 03-24-2021 Emergency department patient visit STAR NÚÑEZ [facility] Start: 03-23-2021 End: 03-23-2021 Emergency department patient visit Star Núñez MD Work Phone: [facility] ED Comment on above: Leg swelling (Primar y Dx) Start: 03-10-2021 End: 03-10-2021 Emergency department patient visit ALIDA ALCALA [facility] Start: 02-28-2021 End: 02-28-2021 Emergency department patient visit CHANELL BLOOD [facility] Start: 02-28-2021 End: 02-28-2021 Emergency department patient visit Chanell Blood Work Phone: [facility] ED Comment on above: Abdominal pain, unsp ecified abdominal location (Primary Dx); Urinary tract infection without hematuria, site unspecified; Intrauterine Procedures Date Procedure Procedure Detail Performing Clinician Start: 05-18-2021 Urinalysis microscop ic only Concetta Obrien CHART READER - CNM Work Phone: Start: 05-18-2021 Urnls dip stick/tabl et rgnt auto w/o microscopy Concetta Obrien CHART READER - CNM Work Phone: Start: 04-14-2021 Assay of lipase Xena And DO Work Phone: Start: 04-14-2021 BASIC METABOLIC PANE L W/ REFLEX TO MG FOR LOW K Xena Andes DO Work Phone: Start: 04-14-2021 Hepatic function panel Xena And DO Work Phone: Start: 04-14-2021 Urinalysis microscop ic only Xena Andes DO Work Phone: Start: 04-14-2021 Urnls dip stick/tabl et rgnt auto w/o microscopy Xena And DO Work Phone: Start: 03-23-2021 Fibrin dgradj produc ts d-dimer quantitative Star Núñez MD Work Phone: Start: 03-01-2021 C. TRACHOMATIS, EXTE RNAL RESULT Historical Provider Start: 03-01-2021 N. GONORRHOEAE, EXTE RNAL RESULT Historical Provider Start: 02-28-2021 Dup-scan artl cosmo abdl/pel/scrot&/rpr orgn lmt Chanell Blood Work Phone: Start: 02-28-2021 Us uterus 1 4 wk transabdl 11/26 gestat Chanell Blood Work Phone: Start: 02-28-2021 Urinalysis microscop ic only Chanell Blood Work Phone: Start: 02-28-2021 Urnls dip stick/tabl et rgnt auto w/o microscopy Chanell Blood Work Phone: Start: 02-17-2021 ABO, EXTERNAL RESULT Hi delioical Provider Start: 02-17-2021 HEPATITIS B, EXTERNA L RESULT Historical Provider Start: 02-17-2021 HEPATITIS C ANTIBODY , EXTERNAL RESULT Historical Provider Start: 02-17-2021 HIV, EXTERNAL RESULT Hi delioical Provider Start: 02-17-2021 RH FACTOR, EXTERNAL RESULT Historical Provider Start: 02-17-2021 RPR, EXTERNAL RESULT Hi storical Provider Start: 02-17-2021 RUBELLA TITER, EXTER NAL RESULT Historical Provider Plan of Treatment Date Care Activity Detail Author Start: 05-16-2023 DTaP/Tdap/Td vaccine (2 - Td or Tdap) DTaP/Tdap/Td vaccine (2 - Td or Tdap) [employer] Phone: Start: 05-16-2023 DTaP/Tdap/Td vaccine (2 - Td) DTaP/Tdap/Td vaccine (2 - Td) [employer] Phone: Start: 07-27-2021 Influenza vaccination M [employer] Phone: Start: 03-23-2021 End: 03-23-2022 VL DUP LOWER EXTREMITY VENOUS BILATERAL VL DUP LOWER EXTREMITY VENOUS BILATERAL Imaging Routine Leg swelling Expected: 03/23/2021, Expires: 03/23/2022 [employer] Phone: Comment on above: Expected: 03/23/2021 , Expires: 03/23/2022 Start: 2015 Screening for malign ant neoplasm of cervix Cervical cancer screen [employer] Phone: Start: 2010 COVID-19 Vaccine (1) COVID-19 Vaccin e (1) [employer] Phone: Start: 2009 HIV screening HIV screen [facility] Work Phone: Start: 2006 COVID-19 Vaccine (1) COVID-19 Vaccin e (1) [employer] Phone: Start: 1995 Varicella vaccine (1 of 2 - 2-dose childhood series) Varicella vaccine (1 of 2 - 2-dose childhood series) [employer] Phone: Start: 1994 Hepatitis C screening Hepatitis C sc reen [employer] Phone: End: 05-18-2021 Bacteria identified in Urine by Culture Urine culture Microbiology Routine One Time for 1 Occurrences starting 05/18/2021 until 05/18/2021 [employer] Phone: Comment on above: One Time for 1 Occur rences starting 05/18/2021 until 05/18/2021 End: 02-28-2021 CBC Auto Differential CBC Auto Differential Lab STAT One Time for 1 Occurrences starting 02/28/2021 until 02/28/2021 [employer] Phone: Comment on above: One Time for 1 Occur rences starting 02/28/2021 until 02/28/2021 End: 02-28-2021 Comprehensive Metabolic Panel w/ Reflex to MG Comprehensive Metabolic Panel w/ Reflex to MG Lab STAT One Time for 1 Occurrences starting 02/28/2021 until 02/28/2021 [employer] Phone: Comment on above: One Time for 1 Occur rences starting 02/28/2021 until 02/28/2021 End: 02-28-2021 Culture, Urine Culture, Urine Microbiology Routine One Time for 1 Occurrences starting 02/28/2021 until 02/28/2021 [employer] Phone: Comment on above: One Time for 1 Occur rences starting 02/28/2021 until 02/28/2021 [facility]: Comment on above: As directed - RT (CA N) until discontinued starting 05/18/2021 As directed - RT (CA N) until discontinued starting 05/24/2021 As directed - RT (CA N) until discontinued starting 06/16/2021 End: 05-18-2021 SVE SVE Point of Care Testing Routine One Time for 1 Occurrences starting 05/18/2021 until 05/18/2021 [employer] Phone: Comment on above: One Time for 1 Occur rences starting 05/18/2021 until 05/18/2021 End: 05-24-2021 SVE SVE Point of Care Testing Routine One Time for 1 Occurrences starting 05/24/2021 until 05/24/2021 [employer] Phone: Comment on above: One Time for 1 Occur rences starting 05/24/2021 until 05/24/2021 End: 06-16-2021 SVE SVE Point of Care Testing Routine One Time for 1 Occurrences starting 06/16/2021 until 06/16/2021 [employer] Phone: Comment on above: One Time for 1 Occur rences starting 06/16/2021 until 06/16/2021 Payers Date Payer Category Payer Unknown [id number] 2.16.8 [id number] 1994 Unknown [id number] 2.16.8 [id number] 1994 Unknown [id number] 2.16.8 40.1.108831.3.579.2.173 1994 Unknown [id number] 2.16.8 40.1.059653.3.579.2.173 1994 Unknown [id number] 2.16.8 40.1.787879.3.579.2.173 1994 Unknown [id number] 2.16.8 40.1.298260.3.579.2.173 1994 Unknown [id number] 2.16.8 40.1.827092.3.579.2.173 1994 Unknown [id number] 2.16.84 0.1.443415.3.579.2.593 1994 Unknown [id number] 2.16.84 0.1.181951.3.579.2.593 1994 Unknown [id number] 2.16.84 0.1.270152.3.579.2.593 1994 Unknown [id number] 2.16.84 0.1.913168.3.579.2.593 1994 Unknown [id number] 2.16.84 0.1.863003.3.579.2.593 1994 Unknown [id number] 2.16.84 0.1.707039.3.579.2.593 1994 Unknown [id number] 2.16.84 0.1.435930.3.579.2.593 1994 Unknown [id number] 2.16.84 0.1.449622.3.579.2.593 1994 Unknown [id number] 2.16.84 0.1.642035.3.579.2.593 1994 Unknown [id number] 2.16.84 0.1.610178.3.579.2.593 1994 Unknown [id number] 2.16.84 0.1.515868.3.579.2.593 1994 Unknown [id number] 2.16.84 0.1.549610.3.579.2.593 1994 Unknown [id number] 2.16.84 0.1.205233.3.579.2.9 1994 Unknown [id number] 2.16.84 0.1.452248.3.579.2.9 1994 Unknown [id number] 2.16.84 0.1.689811.3.579.2.1258 1994 Unknown [id number] 2.16.84 0.1.333802.3.579.2.9 1994 Unknown [id number] 2.16.840 .1.016257.3.579.2.9 1994 Unknown [id number] 2.16.840 .1.525603.3.579.2.9 1994 Unknown [id number] 2.16.840 .1.851147.3.579.2.9 1994 Unknown [id number] 2.16.840 .1.576300.3.579.2.9 1994 Unknown [id number] 2.16.840. 1.513687.3.579.2.9 1959 Self-pay [id number] 1959 Unknown [id number] 1. [id number] Social History Date Type Detail Facility Start: 02-28-2021 End: 06-16-2021 Tobacco smoking status [facility] Never smoker [employer] Phone: Start: 02-28-2021 End: 06-16-2021 Tobacco use and exposure Never used [employer] Phone: Start: 1994 [facility] Assigned At [facility]: Exposure to SARS-CoV -2 (event) Not sure [employer] Phone: Start: 12-07-2020 [employer] Work Phone: Start: 05-18-2021 End: 06-16-2021 Alcohol intake Ex-drinker (finding) Shani [facility] Work Phone: History of Present illness Narrative 06-17-2021 Allyson Joel RN - 06/17/2021 12:10 AM Allyson Torres RN - 06/17/2021 12:02 AM Allyson Torres RN - 06/16/2021 8:50 PM EDAllyson Coelho RN - 06/16/2021 8:45 PM EDT Note Date & Type Note Facility 06-17-2021 History of Present illness Narrative Discharge instructions reviewed with patient. Patient verbalized understanding and denies any questions. Discharge papers signed and then given to patient. Patient discharged home from unit accompanied by significant other with understanding of follow up care. No signs of distress noted. Radha Obrien CNM updated via telephone on pt, EFM, and TOCO. Orders received to discharge home. [facility] notified via telephone requesting pt's blood type information. States they will fax over after receiving HIPPA release via fax. Radha Obrien CNM in department. Updated on pt. Orders received. Pt presents to department after hitting left side of stomach on corner of kitchen counter at home at 8:00PM. Pt states pain was 4/10 and is not uncomfortable, not painful, and tender. Denies bleeding and leaking of fluid after hit. States she did have pink/red bleeding this morning described as spotting when wiping . Pt contacted her provider who told her to come be seen if it worsened and it has not. Pt oriented to room 200, provides urine specimen and is placed on monitor. documented in this encounter [employer] Phone: History of Present illness Narrative 05-18-2021 Erinn Simms RN - 05/18/2021 10:06 AM EDT Note Date & Type Note Facility 05-18-2021 History of Present illness Narrative Obstetrical outpatient discharge instructions explained to pt, pt v.u. 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 documented in this encounter [employer] Phone: Hospital Discharge instructions 03-23-2021 Instructions Note Date & Type Note Facility 03-23-2021 Hospital Discharg e instructions Star Núñez MD - 03/23/2021 Please take all medications as prescribed. Please follow up with your primary care physician by calling today, or as soon as possible, for the first available appointment. If you do not have a primary care physician, please contact a physician or clinic listed below today to establish care. Please return to the emergency department IMMEDIATELY if you develop uncontrolled fevers, uncontrolled vomiting, change in symptoms, worsening of symptoms, or ANY other concerns. documented in this encounter [employer] Phone: Evaluation note Note Date & Type Note Facility Evaluation note Diagnosis Leg swelling- Primary Swelling of limb documented in this encounter [employer] Phone: Evaluation note Note Date & Type Note Facility Evaluation note Diagnosis Nausea and vomiting during - Primary documented in this encounter [employer] Phone: Evaluation note Note Date & Type Note Facility Evaluation note Diagnosis Decreased movement affecting management of mother, antepartum documented in this encounter [employer] Phone: Hospital Discharge instructions Attachments Note Date & Type Note Facility Hospital Discharge instructions The following attachments cannot be sent through Care Everywhere.: Hyperemesis Gravidarum (Jordanian)Nausea and Vomiting (Jordanian)documented in this encounter [employer] Phone: Hospital Discharge instructions Instructions Note Date & Type Note Facility Hospital Discharge instructions Erinn Simms RN - 05/18/[address] Liss Dumont CNM Dr. Alondra Obrien CN [address] [facility] [address] [facility] [address] [place] [address] Alondra Carrillo CN [address] [facility] [address] [phone] Therese Villatoro, MSN, CHART READER, CNM [facility] [address] [facility] [address] [address] Reynoso [address] [facility] [address] Concetta Rob CNM [address] [place] [address] [place] [address] Gabbie Junior CNM [address] [place] [address] [place] [address] [phone] ACTIVITY LIMITATIONS: ( x )Up and about as desired and tolerated ( )Up to bathroom only ( x )Lay on either side ( x )Avoid heavy lifting or exercise ( )No sex ( )No nipple stimulation ( )Complet bedrest ( )Avoid using stairs ( x )Increase fluids DRINK AT LEAST eight-8oz. Glasses of water daily. Call your Doctor if: ( )Contractions are every 5 minutes apart (from start of one to the start of the next contraction) lasting 60 seconds for at least 1 hour, strong enough you can not walk or talk through the contraction and regular. ( x )Bag of water breaks ( x )Vaginal bleeding (x )Unusual pain occurs (x )Decreased movement ( x ) labor: If you have 4 contractions in an hour Keep your scheduled follow up appointment. IN CASE OF EMERGENCY CONTACT LABOR AND DELIVERY . 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 KEFLEX TO BE TAKEN AT 2:30PM FOR FIRST DOSE. documented in this encounter [employer] Work Phone: Hospital Discharge instructions Instructions Note Date & Type Note Facility Hospital Discharge instructions Fiona Gilliland RN - 05/25/[address] Liss Dumont CN Dr. Alondra Obrien CNM [address] [facility] [address] [facility] [address] [address] Alondra Carrillo CN [address] [facility] [address] [phone] Therese Villatoro, MSN, CHART READER, CNM [facility] [address] [facility] [address] [address] Reynoso [address] [facility] [address] Concetta Rob CNM [address] [place] [address] Gabbie Junior CNM [address] [place] [address] [place] [address] [phone] ACTIVITY LIMITATIONS: ( x )Up and about as desired and tolerated ( )Up to bathroom only ( )Lay on either side ( )Avoid heavy lifting or exercise ( )No sex ( )No nipple stimulation ( )Complet bedrest ( )Avoid using stairs ( x )Increase fluids DRINK AT LEAST eight-8oz. Glasses of water daily. Call your Doctor if: ( )Contractions are every 5 minutes apart (from start of one to the start of the next contraction) lasting 60 seconds for at least 1 hour, strong enough you can not walk or talk through the contraction and regular. ( x )Bag of water breaks (x )Vaginal bleeding (x )Unusual pain occurs ( x )Decreased movement ( x ) labor: If you have 4 contractions in an hour Keep your scheduled follow up appointment. Or call for a follow up on . IN CASE OF EMERGENCY CONTACT LABOR AND DELIVERY . documented in this encounter [employer] Phone: Hospital Discharge instructions Instructions Note Date & Type Note Facility Hospital Discharge instructions Allyson Joel RN - 06/17/[address] Liss Dumont [facility] Dr. Alondra Obrien [facility] [address] [facility] [address] [facility] [address] [address] Alondra Carrillo [facility] [address] [facility] [address] [phone] ACTIVITY LIMITATIONS: ( x )Up and about as desired and tolerated ( )Up to bathroom only ( )Lay on either side ( )Avoid heavy lifting or exercise ( )No sex ( )No nipple stimulation ( )Complete bedrest ( )Avoid using stairs ( x )Increase fluids DRINK AT LEAST eight-8oz. Glasses of water daily. Call your Doctor if: ( x )Bag of water breaks ( x )Vaginal bleeding ( x )Unusual pain occurs ( x )Decreased movement ( x ) labor: If you have 4 contractions in an hour Keep your scheduled follow up appointment. IN CASE OF EMERGENCY CONTACT LABOR AND DELIVERY . documented in this encounter [employer] Phone: Discharge Instructions * Instructions* Chanell Blood MD - 02/28/2021 Take Keflex as directed until complete. Make sure to stay well-hydrated. Follow- up with your OB. Seek medical attention immediately for any worsening pain or any other acute concerns. * Attachments The following attachments cannot be sent through Care Everywhere. * Abdominal Pain (Jordanian) * : PROM: General Info (Jordanian) * UTI (Urinary Tract Infection): Female (Jordanian) documented in this encounter Assessments Diagnosis Abdominal pain, unspecified abdominal location- Primary Urinary tract infection without hematuria, site unspecified Intrauterine Reason for Referral Status Reason Specialty Diagnoses / Procedures Referre d By Contact Referred To Contact [facility] Diagnoses Leg swelling Procedures VL DUP LOWER EXTREMITY VENOUS BILATERAL Star Núñez MD [address] [place] [address] Advance Directives No Advanced Directives Records FoundLatest Code Status on File Code Status Date Activated Date Inactivated Comments Full Code 05/18/2021 6:36 AM Latest Code Status on File Code Status Date Activated Date Inactivated Comments Full Code 05/24/2021 11:37 PM Full Code 05/18/2021 6:36 AM 05/18/2021 12:55 PM Latest Code Status on File Code Status Date Activated Date Inactivated Comments Full Code 06/16/2021 8:46 PM Full Code 05/24/2021 11:37 PM 05/25/2021 3:20 AM Summary Purpose Family History No Family History Records FoundNo Family History Records FoundNo Family History Records Found Additional Source Comments Reason for Visit (unrecogniz ed section and content) Reason Comments Abdominal Pain 14 weeks lo wer abd pain, Heartburn Reason Comments Leg Swelling left upper, onset to day with redness and swelling. 17 weeks OB. Reason Comments Abdominal Pain epigastric, onset 30 after eating sandwich. Took tums with no relief. With emesis. 20 weeks OB. Reason Comments Abdominal Pain Nausea & Vomiting Reason Comments Decreased Movement Reason Comments Abdominal Pain Ordered Prescriptions (unrec ognized section and content) Prescription Sig Dispensed Refills Start Date End Da te cephALEXin (KEFLEX) 500 MG capsule Take 1 capsule by mouth 3 times daily for 7 days 21 capsule 0 02/28/2021 03/07/2021 Scheduled Active and Recently Administ ered Medications (unrecognized section and content) Medication Order 04/12/2021 04/13/2021 04/14/2021 0.9 % sodium chloride bolus (COMPLETED) 1,000 mL, Intravenous, at 1,000 mL/hr, Administer over 1 Hours, ONCE, On Margarita 04/14/21 at 0200, For 1 dose 0218 (New Bag - Prov ider: Lorena Vega RN)0318 (Stopped - Provider: Mikaela Stern RN) famotidine (PEPCID) injection 20 mg (COMPLETED) 20 mg, Intravenous, ONCE, On Margarita 04/14/21 at 0200, For 1 dose, Administer over 2 minutes. 0219 (Given - Provid er: Lorena Vega RN) promethazine (PHENERGAN) injection 12.5 mg (COMPLETED) 12.5 mg, Intravenous, ONCE, On Margarita 04/14/21 at 0200, For 1 dose, Recommended route is IM. For IV administration, dilute to 10ml with normal saline. Must be administered over at least 10 minutes. 0218 (Given - Provid er: Lorena Vega, CARLOS) Scheduled Medication Order 05/16/2021 05/17/2021 05/18/2021 acetaminophen (TYLENOL) tablet 1,000 mg (COMPLETED) 1,000 mg, Oral, ONCE, On Sun05/18/21 at 0830, For 1 dose, Maximum dose of acetaminophen is 4000 mg from all sources in 24 hours. 0833 (Given - Provid er: Martha Tatum RN) ceFAZolin (ANCEF) 2000 mg in dextrose 3 % 50 mL IVPB (duplex) (COMPLETED) 2,000 mg, Intravenous, ONCE, 1 dose, On Sun05/18/21 at 0830 0837 (New Bag - Prov ider: Martha Tatum RN)0908 (Stopped - Provider: Erinn Simms, CARLOS) ondansetron (ZOFRAN) injection 4 mg (COMPLETED) 4 mg, Intravenous, ONCE, On Sun05/18/21 at 0830, For 1 dose 0835 (Given - Provid er: Martha Tatum RN) Continuous Medication Order 05/16/2021 05/17/2021 05/18/2021 lactated ringers infusion Intravenous, at 999 mL/hr, CONTINUOUS, Starting on Sun05/18/21 at 0830 0820 (New Bag - Prov ider: Martha Tatum RN)0950 (Stopped - Provider: Erinn Simms, CARLOS) INFORMATION SOURCE (unrecogn ized section and content) DATE CREATED AUTHOR 06/19/2021 [facility] DATE CREATED AUTHOR AUTHOR'S ORGANIZ ATION 05/07/2023 [facility] DATE CREATED AUTHOR AUTHOR'S ORGANIZ ATION 03/21/2024 [facility] FOR RECORDS PERTAINING TO PATIENTS WHO ARE OR HAVE BEEN ENROLLED IN A CHEMICAL DEPENDENCY/SUBSTANCEABUSE PROGRAM, SOME INFORMATION MAY BE OMITTED. This clinical summary was aggregated from multiple sources. Caution should be exercised in using it in the provision of clinical care. This summary normalizes information from multiple sources, and as a consequence, information in this document may materially change the coding, format and clinical context of patient data. In addition, data may be omitted in some cases. CLINICAL DECISIONS SHOULD BE BASED ON THE PRIMARY CLINICAL RECORDS. [facility]. provides no warranty or guarantee of the accuracy or completeness of information in this document.
== END 2024-04-09 11:40 | disposition home or self-care (01) ==
LOC: NOMS 11:40
PROVIDERS: PCP Family Medicine; Visit Provider Obstetrics & Gynecology
DX: N92.6 Irregular menstruation, unspecified (principal)
CPT/HCPCS: 76830

== ENCOUNTER 2024-05-15 16:38 | Outpatient (RCR) | payer OTHER, SELFPAY ==
[2024-05-15 17:29] LABS: HCG Quantitative 289 mIU/mL
[2024-05-17 13:42] LABS: HCG Quantitative 528 mIU/mL
== END 2024-05-25 23:59 | disposition home or self-care (01) ==
LOC: LAB 16:38
PROVIDERS: PCP Family Medicine; Visit Provider Obstetrics & Gynecology
DX: N92.6 Irregular menstruation, unspecified (principal)
CPT/HCPCS: 36415; 84702

== ENCOUNTER 2024-06-19 13:23 | Outpatient (OUT) | payer OTHER, SELFPAY ==
--- NOTE | 2024-06-19 13:24 | US_ITS ---
[address] [address] Patient Name: PAU GRIDER MRN: [id number] date: 1995 Sex: F Assigned Patient Location: [facility] Current Patient Location: [facility] Accession/Order Number: [id number] Exam Date: 06/19/2024 13:24 Report Date: 06/19/2024 14:13 At the request of: GEO SIERRA Procedure: US OB transvaginal EXAMINATION: US OB transvaginal HISTORY: MISSED MENSES COMPARISON: No relevant comparison available. FINDINGS: Wahl intrauterine gestation Gestational sac: 3.66 cm, 8 weeks 6 days CRL: 2.34 cm, 9 weeks 0 days Yolk sac: 3.6 mm. Heart rate: 176 bpm Uterus is normal, anteverted, anteflexed The ovaries are not visualized The cervix is closed, 4.2 cm Clinical age: Unknown Ultrasound age: 9 weeks 0 days Ultrasound BELL: 01/22/2025 US/US OB transvaginal IMPRESSION: Viable wahl intrauterine gestation measuring 9 weeks 0 days Electronically authenticated by: AMNA VALLADARES Date: 06/19/2024 14:13
--- OUTSIDE RECORDS SUMMARY | 2024-06-19 13:28 | XMS_ITS | CCD ---
Author Organization [facility] Care Team Providers Care Store Receiver Name Role Phone Unavailable Primary Care Provider Unavailabl e POOL, REMA E Attending Unavailable POOL, REMA E Admitting Unavailable JADON, RICHAR WELLS Admitting Unavailabl e OBRIEN, RICHAR WELLS Attending Unavailabl e OBRIEN, RICHAR WELLS Attending Unavailabl e OBRIEN, RICHAR WELLS Admitting Unavailabl e ALIDA ALCALA Attending Unavailable CAITIE, MECHE Attending Unavailable CISCO LOPEZ Attending Unavailable LIDIA NÚÑEZ Attending Unavailable FREDC, DR ALLRED Primary Care Unavailable REINECK, DR CARMELA [place] Admitting Unavailabl e REINECK, [...] Unavailable RIGO ., DR GUARDADO Attending Unavailable [place], DR AMNA Ames Consulting Unavailable RIGO ., [...] DR ROXY Thomas Consulting Unavailable REQUEST, DR JUANIS LISTED Consulting Unavaila ble PAY ., DR ACUNA Admitting Unavailable REQUEST, DR NONE LISTED Primary Care Unavaila ble PAY ., DR ACUNA Attending Unavailable PAY ., DR ACUNA Consulting Unavailable LEIF, MARYCRUZ Consulting Unavailable JEANETH, ANANT Consulting Unavailable BLAINE, DR AMNA Ames Consulting Unavailable MARIO ., ARSH Admitting Unavailable MARIO ., ARSH Attending Unavailable [facility], DR ALLRED Primary Care Unavailable MARIO ., ARSH Consulting Unavailable RIGO, GEO Attending Unavailable JYOTHI, SINA Attending Unavailable JYOTHI, SINA Attending Unavailable MIGUEL CARBONE Attending Unavailable RIGO, GEO Attending Unavailable RIGO, GEO Attending Unavailable RIGO, GEO Attending Unavailable RIGO, GEO Attending Unavailable JYOTHI, SINA Attending Unavailable RIGO, GEO Attending Unavailable Allergies Allergy Classification Reported Allergen(s) Allergy Type Date of Onset Reaction(s) Facility Latex (5 sources) Latex Substance Allergy 1 [facility] (1 source) Latex Propensity to adverse reactions to drug 1 [facility] Work Phone: (1 source) Latex Drug allergy (disorder) [facility] Repository Medications Current Medications Medication Drug [...] HBsAg Screen Negative Normal Negative [facility] Comment on above: Performed By: #### H BSANS #### [facility] [address] [place] [address] Dr. Josh Jacinto HEPATITIS C VIRUS AB W/ REFL EX QUANTon 04-18-2023 HCV AB Non-Reactive Normal Non Reactive [facility] Comment on above: Performed By: #### H CVPCRR #### [facility] [address] [place] [address] Dr. Josh Jacinto HIV 1 AND 2 WITH REFLEXon HIV Screen 4th Generation wRfx Non-Reactive Normal Non Reactive [facility] Comment on above: Result Comment: HIV Negative HIV-1/HIV-2 antibodies and HIV-1 p24 antigen were NOT detected. There is no laboratory evidence of HIV infection. Performed By: #### B OX #### [facility] [address] [place] [address] Dr. Josh Jacinto RPR QUANTon 04-18-2023 Rapid Plasma Reagin, Quant Non-Reactive Normal NonRea<1:1 [facility] Comment on above: Result Comment: Plea se Note: This test does not meet current guidelines for screening and diagnosis of syphilis. This test is intended for following treatment response in patients being treated for syphilis infection. To screen for syphilis infection, a reflex cascade that includes both RPR and a treponema-specific assay should be utilized, such as Treponema pallidum (Syphilis) Screening [place] (084689) or Rapid Plasma Reagin (RPR) Test With Reflex to Quantitative RPR and Confirmatory Treponema pallidum Antibodies (195281). Performed By: #### B OX #### [facility] [address] [place] [address] Dr. Josh Jacinto RUBELLA AB IGGon 04-18-2023 Rubella Antibodies, IgG 1.84 index Normal Immune >0.99 [facility] Comment on above: Result Comment: Non- immune <0.90 Equivocal 0.90 - 0.99 Immune >0.99 Performed By: #### H CGSUB #### [facility] [address] [place] [address] Dr. Josh Jacinto BOX TEST SENT OUTon 04-16-20 23 SENT TO REF LAB 04/17/2023 Normal [facility] Comment on above: Performed By: #### B OX #### [facility] [address] [place] [address] Dr. Josh Jacinto CBC AUTO DIFFon 04-16-2023 BASO # 0.0 103/ul Normal 0.0-0.1 [facility] Comment on above: Performed By: #### B OX #### [facility] [address] [address] [address] Josh Jacinto Basophils/100 WBC (Bld) 0.2 % Normal 0.2-2.0 [facility] Comment on above: Performed By: #### B OX #### [facility] [address] [address] [address] Josh Jacinto EO # 0.1 103/ul Normal 0.0-0.7 [facility] Comment on above: Performed By: #### B OX #### [facility] [address] [place] [address] Dr. Josh Jacinto Eosinophils/100 WBC (Bld) 0.6 % Critically low 0.9-7.0 [facility] Comment on above: Performed By: #### B OX #### [facility] [address] [place] [address] Dr. Josh Jacinto Erythrocyte distribution width (RBC) [Ratio] 13.4 % Normal 11.0-15.0 [facility] Comment on above: Performed By: #### B OX #### [facility] [address] [place] [address] Dr. Josh Jacinto Hematocrit (Bld) [Volume fraction] 36.9 % Normal 36.0-48.0 [facility] Comment on above: Performed By: #### B OX #### [facility] [address] [place] [address] Dr. Josh Jacinto Hemoglobin (Bld) [Mass/Vol] 12.4 g/dL Normal 12.0-16.0 [facility] Comment on above: Performed By: #### B OX #### [facility] [address] [place] [address] Dr. Josh Jacinto IG # 0.02 10e3/ul Normal 0.00-0.03 [facility] Comment on above: Performed By: #### B OX #### [facility] [address] [place] [address] Dr. Josh Jacinto IG % 0.2 % Normal 0.0-0.5 [facility] Comment on above: Performed By: #### B OX #### [facility] [address] [place] [address] Dr. Josh Jacinto LYMPH # 2.3 103/ul Normal 1.2-3.8 [facility] Comment on above: Performed By: #### B OX #### [facility] [address] [place] [address] Dr. Josh Jacinto Lymphocytes/100 WBC (Bld) 19.4 % Critically low 20.5-60.0 [facility] Comment on above: Performed By: #### B OX #### [facility] [address] [place] [address] Dr. Josh Jacinto MANUAL DIFF REQ NO Normal [facility] Comment on above: Performed By: #### B OX #### [facility] [address] [place] [address] Dr. Josh Jacinto MCH (RBC) [Entitic mass] 29.6 pg Normal 26.7-34.0 [facility] Comment on above: Performed By: #### B OX #### [facility] [address] [place] [address] Dr. Josh Jacinto MCHC (RBC) [Mass/Vol] 33.6 g/dL Normal 29.9-35.2 [facility] Comment on above: Performed By: #### B OX #### [facility] [address] [place] [address] Dr. Josh Jacinto MCV (RBC) [Entitic vol] 88.1 fL Normal 81.0-99.0 [facility] Comment on above: Performed By: #### B OX #### [facility] [address] [place] [address] Dr. Josh Jacinto MONO # 0.6 103/ul Normal 0.3-0.8 [facility] Comment on above: Performed By: #### B OX #### [facility] [address] [place] [address] Dr. Josh Jacinto Monocytes/100 WBC (Bld) 5.1 % Normal 1.7-12.0 [facility] Comment on above: Performed By: #### B OX #### [facility] [address] [place] [address] Dr. Josh Jacinto NEUT # 9.0 103/ul Critically high 1.4-6.5 [facility] Comment on above: Performed By: #### B OX #### [facility] [address] [place] [address] Dr. Josh Jacinto Neutrophils/100 WBC (Bld) 74.5 % Normal 43.0-75.0 [facility] Comment on above: Performed By: #### B OX #### [facility] [address] [place] [address] Dr. Josh Jacinto Platelet mean volume (Bld) [Entitic vol] 10.1 fL Normal 9.5-13.5 [facility] Comment on above: Performed By: #### B OX #### [facility] [address] [place] [address] Dr. Josh Jacinto PLT 337 103/ul Normal 150-450 [facility] Comment on above: Performed By: #### B OX #### [facility] [address] [place] [address] Dr. Josh Jacinto RBC 4.19 106/ul Critically low 4.20-5.40 [facility] Comment on above: Performed By: #### B OX #### [facility] [address] [place] [address] Dr. Josh Jacinto WBC 12.0 103/ul Critically high 4.0-11.0 [facility] Comment on above: Performed By: #### B OX #### [facility] [address] [place] [address] Dr. Josh Jacinto CULTURE URINEon 04-16-2023 CULTURE URINE Culture Observations: NO GROWTH. Normal [facility] Comment on above: Performed By: #### H CGSUB #### [facility] [address] [place] [address] Dr. Josh Jacinto GLYCOHEMOGLOBIN A1Con 2022 ADA RECOMMENDATION SEE BELOW Normal [facility] Comment on above: Result Comment: ADA RECOMMENDED LIMIT 4.0 - 6.0 ADA THERAPEUTIC TARGET < 7.0 ACTION SUGGESTED > 7.0 Performed By: #### H CVPCRR #### [facility] [address] [address] [address] Josh Jacinto Glucose [Mass/Vol] 91 mg/dL Normal [facility] Comment on above: Performed By: #### H CVPCRR #### [facility] [address] [place] [address] Dr. Josh Jacinto HbA1c (Bld) [Mass fraction] 4.8 % Normal 4.5-6.2 [facility] Comment on above: Performed By: #### H CVPCRR #### [facility] [address] [place] [address] Dr. Josh Jacinto TSHon 04-16-2023 TSH 1.700 uIU/mL Normal 0.358-3.740 [facility] Comment on above: Performed By: #### H CGSUB #### [facility] [address] [place] [address] Dr. Josh Jacinto TYPE AND SCREENon 04-16-2023 TYPE AND SCREEN Negative Normal [facility] Comment on above: Performed By: #### H CGSUB #### [facility] [address] [place] [address] Dr. Josh Jacinto US PREG TVon 04-13-2023 US PREG TV EXAMINATION: US PREG TV HISTORY: Pain TECHNIQUE: Grayscale and color Doppler sonographic evaluation of the uterus and adnexa was performed utilizing a transvaginal approach only. COMPARISON: 04/06/2023 FINDINGS: Uterus: Size: Normal Orientation:Antevert ed Intrauterine Gestational Sac: Present Yolk Sac: Present Pole: Present. Despard-rump length measures 2.1 cm, 8 weeks 5 [...] by: ANANT ERIC Date: 2023-04-13 20:47 Normal [facility] US PREG TVon 04-06-2023 US PREG [...] by: ROXY TOBIAS Date: 2023-04-06 10:05 Normal [facility] CBC AUTO DIFFon 10-13-2022 BASO # 0.0 103/ul Normal 0.0-0.1 [facility] Comment on above: Performed By: #### H CVPCRR #### [facility] [address] [place] [address] Dr. oJsh Jacinto Basophils/100 WBC (Bld) 0.4 % Normal 0.2-2.0 [facility] Comment on above: Performed By: #### H CVPCRR #### [facility] [address] [place] [address] Dr. Josh Jacinto EO # 0.1 103/ul Normal 0.0-0.7 [facility] Comment on above: Performed By: #### H CVPCRR #### [facility] [address] [place] [address] Dr. Josh Jacinto Eosinophils/100 WBC (Bld) 1.2 % Normal 0.9-7.0 [facility] Comment on above: Performed By: #### H CVPCRR #### [facility] [address] [place] [address] Dr. Josh Jacinto Erythrocyte distribution width (RBC) [Ratio] 12.7 % Normal 11.0-15.0 [facility] Comment on above: Performed By: #### H CVPCRR #### [facility] [address] [place] [address] Dr. Josh Jacinto Hematocrit (Bld) [Volume fraction] 39.3 % Normal 36.0-48.0 [facility] Comment on above: Performed By: #### H CVPCRR #### [facility] [address] [place] [address] Dr. Josh Jacinto Hemoglobin (Bld) [Mass/Vol] 13.1 g/dL Normal 12.0-16.0 [facility] Comment on above: Performed By: #### H CVPCRR #### [facility] [address] [place] [address] Dr. Josh Jacinto IG # 0.02 10e3/ul Normal 0.00-0.03 [facility] Comment on above: Performed By: #### H CVPCRR #### [facility] [address] [place] [address] Dr. Josh Jacinto IG % 0.3 % Normal 0.0-0.5 [facility] Comment on above: Performed By: #### H CVPCRR #### [facility] [address] [place] [address] Dr. Josh Jacinto LYMPH # 2.1 103/ul Normal 1.2-3.8 [facility] Comment on above: Performed By: #### H CVPCRR #### [facility] [address] [place] [address] Dr. Josh Jacinto Lymphocytes/100 WBC (Bld) 28.8 % Normal 20.5-60.0 [facility] Comment on above: Performed By: #### H CVPCRR #### [facility] [address] [place] [address] Dr. Josh Jacinto MANUAL DIFF REQ NO Normal [facility] Comment on above: Performed By: #### H CVPCRR #### [facility] [address] [place] [address] Dr. Josh Jacinto MCH (RBC) [Entitic mass] 28.9 pg Normal 26.7-34.0 [facility] Comment on above: Performed By: #### H CVPCRR #### [facility] [address] [place] [address] Dr. Josh Jacinto MCHC (RBC) [Mass/Vol] 33.3 g/dL Normal 29.9-35.2 [facility] Comment on above: Performed By: #### H CVPCRR #### [facility] [address] [place] [address] Dr. Josh Jacinto MCV (RBC) [Entitic vol] 86.6 fL Normal 81.0-99.0 [facility] Comment on above: Performed By: #### H CVPCRR #### [facility] [address] [place] [address] Dr. Josh Jacinto MONO # 0.6 103/ul Normal 0.3-0.8 [facility] Comment on above: Performed By: #### H CVPCRR #### [facility] [address] [place] [address] Dr. Josh Jacinto Monocytes/100 WBC (Bld) 8.7 % Normal 1.7-12.0 [facility] Comment on above: Performed By: #### H CVPCRR #### [facility] [address] [place] [address] Dr. Josh Jacinto NEUT # 4.4 103/ul Normal 1.4-6.5 [facility] Comment on above: Performed By: #### H CVPCRR #### [facility] [address] [place] [address] Dr. Josh Jacinto Neutrophils/100 WBC (Bld) 60.6 % Normal 43.0-75.0 [facility] Comment on above: Performed By: #### H CVPCRR #### [facility] [address] [place] [address] Dr. Josh Jacinto Platelet mean volume (Bld) [Entitic vol] 10.0 fL Normal 9.5-13.5 [facility] Comment on above: Performed By: #### H CVPCRR #### [facility] [address] [place] [address] Dr. Josh Jacinto PLT 327 103/ul Normal 150-450 [facility] Comment on above: Performed By: #### H CVPCRR #### [facility] [address] [place] [address] Dr. Josh Jacinto RBC 4.54 106/ul Normal 4.20-5.40 [facility] Comment on above: Performed By: #### H CVPCRR #### [facility] [address] [place] [address] Dr. Josh Jacinto WBC 7.2 103/ul Normal 4.0-11.0 [facility] Comment on above: Performed By: #### H CVPCRR #### [facility] [address] [place] [address] Dr. Josh Jacinto ER URINE PROFILEon 2 Bilirubin Ql (U) Negative Normal NEGATIVE [facility] Comment on above: Performed By: #### H CVPCRR #### [facility] [address] [place] [address] Dr. Josh Jacinto Clarity (U) CLEAR Normal CLEAR [facility] Comment on above: Performed By: #### H CVPCRR #### [facility] [address] [place] [address] Dr. Josh Jacinto Color (U) LT. YELLOW Normal YELLOW [facility] Comment on above: Performed By: #### H CVPCRR #### [facility] [address] [place] [address] Dr. Josh Jacinto ERUEdd A micrscopic examination will be performed if indicated. Normal [facility] Comment on above: Performed By: #### H CVPCRR #### [facility] [address] [place] [address] Dr. Josh Jacinto Glucose Ql (U) Negative Normal NEGATIVE [facility] Comment on above: Performed By: #### H CVPCRR #### [facility] [address] [place] [address] Dr. Josh Jacinto Hemoglobin Ql (U) LARGE Abnormal NEGATIVE The [facility] Comment on above: Performed By: #### H CVPCRR #### [facility] [address] [address] [address] Josh Jacinto Ketones Ql (U) Negative Normal NEGATIVE [facility] Comment on above: Performed By: #### H CVPCRR #### [facility] [address] [place] [address] Dr. Josh Jacinto LEUKOCYTES Negative Normal NEGATIVE [facility] Comment on above: Performed By: #### H CVPCRR #### [facility] [address] [place] [address] Dr. Josh Jacinto Nitrite Ql (U) Negative Normal NEGATIVE [facility] Comment on above: Performed By: #### H CVPCRR #### [facility] [address] [place] [address] Dr. Josh Jacinto pH (U) 6.5 [pH] Normal 5-9 [facility] Comment on above: Performed By: #### H CVPCRR #### [facility] [address] [address] [address] Josh Jacinto SPEC GRAVITY 1.010 Normal 1.005-<=1.025 [facility] Comment on above: Performed By: #### H CVPCRR #### [facility] [address] [place] [address] Dr. Josh Jacinto UA PROTEIN Negative Normal NEGATIVE/ TRACE [facility] Comment on above: Performed By: #### H CVPCRR #### [facility] [address] [place] [address] Dr. Josh Jacinto UR MICRO IND INDICATED Normal [facility] Comment on above: Performed By: #### H CVPCRR #### [facility] [address] [place] [address] Dr. Josh Jacinto Urobilinogen Qn (U) 0.2 {Pio'U}/dL Normal 0.2 - 1. 0 [facility] Comment on above: Performed By: #### H CVPCRR #### [facility] [address] [place] [address] Dr. Josh Jacinto PREG QUANT HCGon 10-13-2022 HCG QUANT 4 mIU/mL Normal [facility] Comment on above: Performed By: #### P REGQNT #### [facility] [address] [place] [address] Dr. Josh Jacinto HCG RANGE SEE BELOW Normal [facility] Comment on above: Result Comment: 5-50 0.2-1 WEEK 50-500 1-2 WEEKS 100-5,000 2-3 WEEKS 500-10,000 3-4 WEEKS 1,000-50,000 4-5 WEEKS 10,000-100,000 5-6 WEEKS 15,000-200,000 6-8 WEEKS 10,000-100,000 2-3 MONTHS Performed By: #### P REGQNT #### [facility] [address] [place] [address] Dr. Josh Jacinto PROTIMEon 10-13-2022 INR Coag (PPP) [Relative time] 1.29 {INR} Normal [facility] Comment on above: Performed By: #### H CVPCRR #### [facility] [address] [place] [address] Dr. Josh Jacinto INR GUIDELINES SEE BELOW Normal [facility] Comment on above: Result Comment: PASCUAL RED INR: 2.0 - 3.0 CONDITIONS NOT LISTED BELOW 2.5 - 3.5 FOR PROSTHETIC HEART VALVE REPLACEMENT 2.5 - 3.5 RECURRENT THROMBOSIS Performed By: #### H CVPCRR #### [facility] [address] [place] [address] Dr. Josh Jacinto PT Coag (PPP) [Time] 13.7 s Critically high 9.0-11.6 [facility] Comment on above: Performed By: #### H CVPCRR #### [facility] [address] [place] [address] Dr. Josh Jacinto PTTon 10-13-2022 aPTT Coag (Bld) [Time] 25.1 s Normal 22.3-36.2 [facility] Comment on above: Performed By: #### H CVPCRR #### [facility] [address] [place] [address] Dr. Josh Jacinto URINE MICROSCOPIC ONLYon BACTERIA NONE SEEN Normal NONE SEEN [facility] Comment on above: Performed By: #### H CVPCRR #### [facility] [address] [place] [address] Dr. Josh Jacinto Bacteria identified Cx Nom (U) NOT INDICATED Normal [facility] Comment on above: Performed By: #### H CVPCRR #### [facility] [address] [place] [address] Dr. Josh Jacinto CAST NONE SEEN Normal NONE SEEN [facility] Comment on above: Performed By: #### H CVPCRR #### [facility] [address] [place] [address] Dr. Josh Jacinto Crystals LM Nom (Urine sed) NONE SEEN Normal NONE SEEN [facility] Comment on above: Performed By: #### H CVPCRR #### [facility] [address] [place] [address] Dr. Josh Jacinto Epithelial cells LM Ql (Urine sed) MODERATE Abnormal NONE SEEN /RARE [facility] Comment on above: Performed By: #### H CVPCRR #### [facility] [address] [place] [address] Dr. Josh Jacinto MUCOUS NONE SEEN Normal NONE SEEN [facility] Comment on above: Performed By: #### H CVPCRR #### [facility] [address] [place] [address] Dr. Josh Jacinto RBC 10-20 Abnormal 0-2 [facility] Comment on above: Performed By: #### H CVPCRR #### [facility] [address] [place] [address] Dr. Josh Jacinto WBC 0-2 Abnormal NONE SEEN [facility] Comment on above: Performed By: #### H CVPCRR #### [facility] [address] [place] [address] Dr. Josh Jacinto US PREG TVon 10-13-2022 [...] AMNA VALLADARES Date: 2022-10-13 08:40 Normal [facility] CBC AUTO DIFFon 10-09-2022 BASO # 0.0 103/ul Normal 0.0-0.1 [facility] Comment on above: Performed By: #### H CVPCRR #### [facility] [address] [place] [address] Dr. Josh Jacinto Basophils/100 WBC (Bld) 0.3 % Normal 0.2-2.0 [facility] Comment on above: Performed By: #### H CVPCRR #### [facility] [address] [place] [address] Dr. Josh Jacinto EO # 0.0 103/ul Normal 0.0-0.7 [facility] Comment on above: Performed By: #### H CVPCRR #### [facility] [address] [place] [address] Dr. Josh Jacinto Eosinophils/100 WBC (Bld) 0.4 % Critically low 0.9-7.0 [facility] Comment on above: Performed By: #### H CVPCRR #### [facility] [address] [place] [address] Dr. Josh Jacinto Erythrocyte distribution width (RBC) [Ratio] 12.7 % Normal 11.0-15.0 [facility] Comment on above: Performed By: #### H CVPCRR #### [facility] [address] [place] [address] Dr. Josh Jacinto Hematocrit (Bld) [Volume fraction] 39.0 % Normal 36.0-48.0 [facility] Comment on above: Performed By: #### H CVPCRR #### [facility] [address] [place] [address] Dr. Josh Jacinto Hemoglobin (Bld) [Mass/Vol] 13.1 g/dL Normal 12.0-16.0 [facility] Comment on above: Performed By: #### H CVPCRR #### [facility] [address] [place] [address] Dr. Josh Jacinto IG # 0.03 10e3/ul Normal 0.00-0.03 [facility] Comment on above: Performed By: #### H CVPCRR #### [facility] [address] [place] [address] Dr. Josh Jacinto IG % 0.3 % Normal 0.0-0.5 [facility] Comment on above: Performed By: #### H CVPCRR #### [facility] [address] [place] [address] Dr. Josh Jacinto LYMPH # 2.0 103/ul Normal 1.2-3.8 [facility] Comment on above: Performed By: #### H CVPCRR #### [facility] [address] [place] [address] Dr. Josh Jacinto Lymphocytes/100 WBC (Bld) 18.4 % Critically low 20.5-60.0 [facility] Comment on above: Performed By: #### H CVPCRR #### [facility] [address] [place] [address] Dr. Josh Jacinto MANUAL DIFF REQ NO Normal [facility] Comment on above: Performed By: #### H CVPCRR #### [facility] [address] [place] [address] Dr. Josh Jacinto MCH (RBC) [Entitic mass] 29.0 pg Normal 26.7-34.0 [facility] Comment on above: Performed By: #### H CVPCRR #### [facility] [address] [place] [address] Dr. Josh Jacinto MCHC (RBC) [Mass/Vol] 33.6 g/dL Normal 29.9-35.2 [facility] Comment on above: Performed By: #### H CVPCRR #### [facility] [address] [place] [address] Dr. Josh Jacinto MCV (RBC) [Entitic vol] 86.5 fL Normal 81.0-99.0 [facility] Comment on above: Performed By: #### H CVPCRR #### [facility] [address] [place] [address] Dr. Josh Jacinto MONO # 0.8 103/ul Normal 0.3-0.8 [facility] Comment on above: Performed By: #### H CVPCRR #### [facility] [address] [place] [address] Dr. Josh Jacinto Monocytes/100 WBC (Bld) 7.1 % Normal 1.7-12.0 [facility] Comment on above: Performed By: #### H CVPCRR #### [facility] [address] [place] [address] Dr. Josh Jacinto NEUT # 8.1 103/ul Critically high 1.4-6.5 [facility] Comment on above: Performed By: #### H CVPCRR #### [facility] [address] [place] [address] Dr. Josh Jacinto Neutrophils/100 WBC (Bld) 73.5 % Normal 43.0-75.0 [facility] Comment on above: Performed By: #### H CVPCRR #### [facility] [address] [place] [address] Dr. Josh Jacinto Platelet mean volume (Bld) [Entitic vol] 10.4 fL Normal 9.5-13.5 [facility] Comment on above: Performed By: #### H CVPCRR #### [facility] [address] [place] [address] Dr. Josh Jacitno PLT 329 103/ul Normal 150-450 [facility] Comment on above: Performed By: #### H CVPCRR #### [facility] [address] [place] [address] Dr. Josh Jacinto RBC 4.51 106/ul Normal 4.20-5.40 [facility] Comment on above: Performed By: #### H CVPCRR #### [facility] [address] [place] [address] Dr. Josh Jacinto WBC 11.0 103/ul Normal 4.0-11.0 [facility] Comment on above: Performed By: #### H CVPCRR #### [facility] [address] [place] [address] Dr. Josh Jacinto CULTURE URINEon 10-09-2022 CULTURE URINE Culture Observations: NO GROWTH. Normal [facility] Comment on above: Performed By: #### H CGSUB #### [facility] [address] [place] [address] Dr. Josh Jacinto ER URINE PROFILEon Bilirubin Ql (U) Negative Normal NEGATIVE [facility] Comment on above: Performed By: #### H CVPCRR #### [facility] [address] [place] [address] Dr. Josh Jacinto Clarity (U) CLEAR Normal CLEAR [facility] Comment on above: Performed By: #### H CVPCRR #### [facility] [address] [place] [address] Dr. Josh Jacinto Color (U) LT. YELLOW Normal YELLOW [facility] Comment on above: Performed By: #### H CVPCRR #### [facility] [address] [place] [address] Dr. Josh LOWEEdd A micrscopic examination will be performed if indicated. Normal [facility] Comment on above: Performed By: #### H CVPCRR #### [facility] [address] [place] [address] Dr. Josh Jacinto Glucose Ql (U) Negative Normal NEGATIVE [facility] Comment on above: Performed By: #### H CVPCRR #### [facility] [address] [place] [address] Dr. Josh Jacinto Hemoglobin Ql (U) TRACE-LYSED Abnormal NEGATIVE [facility] Comment on above: Performed By: #### H CVPCRR #### [facility] [address] [place] [address] Dr. Josh Jacinto Ketones Ql (U) Negative Normal NEGATIVE [facility] Comment on above: Performed By: #### H CVPCRR #### [facility] [address] [place] [address] Dr. Josh Jacinto LEUKOCYTES SMALL Abnormal NEGATIVE [facility] Comment on above: Performed By: #### H CVPCRR #### [facility] [address] [place] [address] Dr. Josh Jacinto Nitrite Ql (U) Negative Normal NEGATIVE [facility] Comment on above: Performed By: #### H CVPCRR #### [facility] [address] [place] [address] Dr. Josh Jacinto pH (U) 6.0 [pH] Normal 5-9 [facility] Comment on above: Performed By: #### H CVPCRR #### [facility] [address] [place] [address] Dr. Josh Jacinto SPEC GRAVITY 1.015 Normal 1.005-<=1.025 [facility] Comment on above: Performed By: #### H CVPCRR #### [facility] [address] [place] [address] Dr. Josh Jacinto UA PROTEIN Negative Normal NEGATIVE/ TRACE [facility] Comment on above: Performed By: #### H CVPCRR #### [facility] [address] [place] [address] Dr. Josh Jacinto UR MICRO IND INDICATED Normal [facility] Comment on above: Performed By: #### H CVPCRR #### [facility] [address] [place] [address] Dr. Josh Jacinto Urobilinogen Qn (U) 0.2 {Pio'U}/dL Normal 0.2 - 1. 0 [facility] Comment on above: Performed By: #### H CVPCRR #### [facility] [address] [place] [address] Dr. Josh Jacinto LIPASEon 10-09-2022 Lipase [Catalytic activity/Vol] 128.0 U/L Normal 73.0-393.0 [facility] Comment on above: Performed By: #### C MP, LIPA, HSTROPN #### [facility] [address] [place] [address] Dr. Josh Jacinto MONOon 10-09-2022 Monocytes (Bld) [#/Vol] Negative Normal NEGATIVE [facility] Comment on above: Performed By: #### B OX #### [facility] [address] [place] [address] Dr. Josh Jacinto PREG HCG QUALon 10-09-2022 , QUAL Positive Abnormal NEGATIVE [facility] Comment on above: Performed By: #### B OX #### [facility] [address] [place] [address] Dr. Josh Jacinto PROF 14(COMP METB)on 022 Albumin [Mass/Vol] 3.6 g/dL Normal 3.4-5.0 [facility] Comment on above: Performed By: #### C MP, LIPA, HSTROPN #### [facility] [address] [place] [address] Dr. Josh Jacinto Albumin/Globulin [Mass ratio] 0.9 {ratio} Normal [facility] Comment on above: Performed By: #### C MP, LIPA, HSTROPN #### [facility] [address] [place] [address] Dr. Josh Jacinto ALP [Catalytic activity/Vol] 94 U/L Normal 46-116 [facility] Comment on above: Performed By: #### C MP, LIPA, HSTROPN #### [facility] [address] [place] [address] Dr. Josh Jacinto ALT [Catalytic activity/Vol] 22 U/L Normal 14-59 [facility] Comment on above: Performed By: #### C MP, LIPA, HSTROPN #### [facility] [address] [place] [address] Dr. Josh Jacinto Anion gap [Moles/Vol] 10.9 mmol/L Normal [facility] Comment on above: Performed By: #### C MP, LIPA, HSTROPN #### [facility] [address] [place] [address] Dr. Josh Jacinto AST [Catalytic activity/Vol] 13 U/L Critically low 15-37 [facility] Comment on above: Performed By: #### C MP, LIPA, HSTROPN #### [facility] [address] [place] [address] Dr. Josh Jacinto Bilirubin [Mass/Vol] 0.1 mg/dL Critically low 0.2-1.0 [facility] Comment on above: Performed By: #### C MP, LIPA, HSTROPN #### [facility] [address] [place] [address] Dr. Josh Jacinto Calcium [Mass/Vol] 9.0 mg/dL Normal 8.5-10.1 [facility] Comment on above: Performed By: #### C MP, LIPA, HSTROPN #### [facility] [address] [place] [address] Dr. Josh Jacinto Chloride [Moles/Vol] 105 mmol/L Normal 98-107 [facility] Comment on above: Performed By: #### C MP, LIPA, HSTROPN #### [facility] [address] [place] [address] Dr. Josh Jacinto CO2 [Moles/Vol] 23.5 mmol/L Normal 21.0-32.0 [facility] Comment on above: Performed By: #### C MP, LIPA, HSTROPN #### [facility] [address] [place] [address] Dr. Josh Jacinto Creatinine [Mass/Vol] 0.68 mg/dL Normal 0.55-1.02 [facility] Comment on above: Performed By: #### C MP, LIPA, HSTROPN #### [facility] [address] [place] [address] Dr. Josh Jacinto EGFR-AF HONDURAN >60 Normal >=60 [facility] Comment on above: Performed By: #### C MP, LIPA, HSTROPN #### [facility] [address] [place] [address] Dr. Josh Jacinto EGFR-NON AF HONDURAN >60 Normal >=60 [facility] Comment on above: Performed By: #### C MP, LIPA, HSTROPN #### [facility] [address] [place] [address] Dr. Josh Jacinto Globulin (S) [Mass/Vol] 4.1 g/dL Normal [facility] Comment on above: Performed By: #### C MP, LIPA, HSTROPN #### [facility] [address] [address] [address] Josh Jacinto Glucose [Mass/Vol] 98 mg/dL Normal 74-106 [facility] Comment on above: Performed By: #### C MP, LIPA, HSTROPN #### [facility] [address] [address] [address] Josh Jacinto Potassium [Moles/Vol] 3.4 mmol/L Critically low 3.5-5.1 [facility] Comment on above: Performed By: #### C MP, LIPA, HSTROPN #### [facility] [address] [place] [address] Dr. Josh Jacinto Protein [Mass/Vol] 7.7 g/dL Normal 6.4-8.2 [facility] Comment on above: Performed By: #### C MP, LIPA, HSTROPN #### [facility] [address] [address] [address] Josh Jacinto Sodium [Moles/Vol] 136 mmol/L Normal 136-145 [facility] Comment on above: Performed By: #### C MP, LIPA, HSTROPN #### [facility] [address] [place] [address] Dr. Josh Jacinto Urea nitrogen [Mass/Vol] 14.0 mg/dL Normal 7.0-18.0 [facility] Comment on above: Performed By: #### C MP, LIPA, HSTROPN #### [facility] [address] [address] [address] Josh Jacinto Urea nitrogen/Creatinine [Mass ratio] 20.6 mg/mg Normal [facility] Comment on above: Performed By: #### C MP, LIPA, HSTROPN #### [facility] [address] [address] [address] Josh Jacinto TROPONIN, HIGH SENSITIVITYon 10-09-2022 HSTROP <4.0 Normal 4.0-51.3 [facility] Comment on above: Result Comment: CUT- OFF POINTS HAVE BEEN ESTABLISHED BASED ON THE FOURTH UNIVERSAL DEFINITIONS OF MYOCARDIAL INFARCTION. THE UPPER REFERENCE LIMIT (URL) OF TROPONIN, DEFINED THE 99TH PERCENTILE OF cTnI DISTRIBUTION IN A REFERENCE POPULATION, HAS BEEN CONFIRMED THE DECISION THRESHOLD FOR [place] DIAGNOSIS. Performed By: #### C MP, LIPA, HSTROPN #### [facility] [address] [place] [address] Dr. Josh Jacinto URINE MICROSCOPIC ONLYon BACTERIA TRACE Abnormal NONE SEEN [facility] Comment on above: Performed By: #### H CVPCRR #### [facility] [address] [place] [address] Dr. Josh Jacinto Bacteria identified Cx Nom (U) INDICATED Normal [facility] Comment on above: Performed By: #### H CVPCRR #### [facility] [address] [place] [address] Dr. Josh Jacinto CAST NONE SEEN Normal NONE SEEN [facility] Comment on above: Performed By: #### H CVPCRR #### [facility] [address] [place] [address] Dr. Josh Jacinto Crystals LM Nom (Urine sed) NONE SEEN Normal NONE SEEN [facility] Comment on above: Performed By: #### H CVPCRR #### [facility] [address] [place] [address] Dr. Josh Jacinto Epithelial cells LM Ql (Urine sed) MODERATE Abnormal NONE SEEN /RARE [facility] Comment on above: Performed By: #### H CVPCRR #### [facility] [address] [place] [address] Dr. Josh Jacinto MUCOUS NONE SEEN Normal NONE SEEN [facility] Comment on above: Performed By: #### H CVPCRR #### [facility] [address] [place] [address] Dr. Josh Jacinto RBC NONE SEEN Abnormal 0-2 [facility] Comment on above: Performed By: #### H CVPCRR #### [facility] [address] [place], [place] [id number] Dr. Josh Jacinto WBC 2-5 Abnormal NONE SEEN [facility] Comment on above: Performed By: #### H CVPCRR #### [facility] [address] [place] [address] Dr. Josh Jacinto ER URINE PROFILEon 2 Bilirubin Ql (U) Negative Normal NEGATIVE [facility] Comment on above: Performed By: #### P REGU, ERUR #### [facility] [address] [place] [address] Dr. Josh Jacinto Clarity (U) CLEAR Normal CLEAR [facility] Comment on above: Performed By: #### P REGU, ERUR #### [facility] [address] [place] [address] Dr. Josh Jacinto Color (U) LT. YELLOW Normal YELLOW [facility] Comment on above: Performed By: #### P REGU, ERUR #### [facility] [address] [place] [address] Dr. Josh Jacinto ERUAHD A micrscopic examination will be performed if indicated. Normal [facility] Comment on above: Performed By: #### P REGU, ERUR #### [facility] [address] [place] [address] Dr. Josh Jacinto Glucose Ql (U) Negative Normal NEGATIVE [facility] Comment on above: Performed By: #### P REGU, ERUR #### [facility] [address] [place] [address] Dr. Josh Jacinto Hemoglobin Ql (U) Negative Normal NEGATIVE The [facility] Comment on above: Performed By: #### P REGU, ERUR #### [facility] [address] [place] [address] Dr. Josh Jacinto Ketones Ql (U) Negative Normal NEGATIVE [facility] Comment on above: Performed By: #### P REGU, ERUR #### [facility] [address] [place] [address] Dr. Josh Jacinto LEUKOCYTES Negative Normal NEGATIVE [facility] Comment on above: Performed By: #### P REGU, ERUR #### [facility] [address] [place] [address] Dr. Josh Jacinto Nitrite Ql (U) Negative Normal NEGATIVE [facility] Comment on above: Performed By: #### P REGU, ERUR #### [facility] [address] [place] [address] Dr. Josh Jacinto pH (U) 6.0 [pH] Normal 5-9 [facility] Comment on above: Performed By: #### P REGU, ERUR #### [facility] [address] [place] [address] Dr. Josh Jacinto SPEC GRAVITY 1.010 Normal 1.005-<=1.025 [facility] Comment on above: Performed By: #### P REGU, ERUR #### [facility] [address] [place] [address] Dr. Josh Jacinto UA PROTEIN Negative Normal NEGATIVE/ TRACE [facility] Comment on above: Performed By: #### P REGU, ERUR #### [facility] [address] [place] [address] Dr. Josh Jacinto UR MICRO IND NOT INDICATED Normal [facility] Comment on above: Performed By: #### P REGU, ERUR #### [facility] [address] [place] [address] Dr. Josh Jacinto Urobilinogen Qn (U) 0.2 {Pio'U}/dL Normal 0.2 - 1. 0 [facility] Comment on above: Performed By: #### P REGU, ERUR #### [facility] [address] [place] [address] Dr. Josh Jacinto URon 09-14-2022 , QUAL Negative Normal NEGATIVE [facility] Comment on above: Performed By: #### P REGU, ERUR #### [facility] [address] [place] [address] Dr. Josh Jacinto XR ABD FLAT UP_PA [...] KAUFMAN Date: 2022-09-14 02:39 Normal [facility] PAP ACOG PANEL 2: 20 to 28on 07-10-2022 . . Normal [facility] Comment on above: Performed By: #### H CGSUB #### [facility] [address] [address] [address] Josh Jacinto Age Gdln ACOG Testing - Normal [facility] Comment on above: Performed By: #### H CGSUB #### [facility] [address] [address] [address] Josh Jacinto DIAGNOSIS: Comment [facility] Comment on above: Result Comment: NEGA TIVE FOR INTRAEPITHELIAL LESION OR MALIGNANCY. Performed By: #### H CGSUB #### [facility] [address] [address] [address] Josh Jacinto Methodology: Comment Normal [facility] Comment on above: Result Comment: This liquid based ThinPrep(R) pap test was screened with the use of an image guided system. Performed By: #### H CGSUB #### [facility] [address] [address] [address] Josh Jacinto Note: Comment Normal [facility] Comment on above: Result Comment: The Pap smear is a screening test designed to aid in the detection of premalignant and malignant conditions of the uterine cervix. It is not a diagnostic procedure and should not be used as the sole means of detecting cervical cancer. Both false-positive and false-negative reports do occur. . Performed By: #### H CGSUB #### [facility] [address] [address] [address] Josh Jacinto Performed by: Comment Normal [facility] Comment on above: Result Comment: Aurora Salazar, Sporting Goods Salesperson (ASCP) Performed By: #### H CGSUB #### [facility] [address] [place] [address] Dr. Josh Jacinto Reflex Criteria: Comment Normal [facility] Comment on above: Result Comment: The HPV DNA reflex criteria were not met with this specimen result therefore, no HPV testing was performed. . Performed By: #### H CGSUB #### [facility] [address] [address] [address] Josh Jacinto Specimen adequacy: Comment Normal [facility] Comment on above: Result Comment: Sati sfactory for evaluation. Endocervical and/or squamous metaplastic cells (endocervical component) are present. Performed By: #### H CGSUB #### [facility] [address] [place] [address] Dr. Josh Jacinto HCG-BETA SUBUNIT QUANTon hCG,Beta Subunit,Qnt,Serum <1 Normal [facility] Comment on above: Result Comment: Fema le (Non-) 0 - 5 (Postmenopausal) 0 - 8 . Female () Weeks of Gestation 3 6 - 71 4 10 - 750 5 217 - 7138 6 158 - 73713 7 [phone] 8 [phone] 9 [phone] 10 [phone] 12 [phone] 14 95628 - 43279 15 88913 - 51890 16 [phone] 17 [phone] - [phone] 18 [phone] Liana ECLIA methodology Performed By: #### H CGSUB #### [facility] [address] [place] [address] Dr. Josh Jacinto US PELVIS AND TRANSVAGon [...] VALLADARES Date: 2022-07-05 16:12 Normal [facility] Cult,Urineon 05-19-2021 Cult,Urine Specimen Description .CLEAN CATCH URINE Special Requests NOT REPORTED Culture NO SIGNIFICANT GROWTH Report Status FINAL 05/19/2021 Normal [facility] Comment on above: Performed By: #### [facility] #### [address] [place] [address] Microbiology Lab Analyst: Collin De La Fuente MD Microscopic UrinalysisOrdere d By: Richar Obrien on 05-18-2021 - [facility] [email or web address] Work Phone: Amorphous, UA NOT REPORTED None [facility] Work Phone: Bacteria, UA 2+ Abnormal None [facility] Work Phone: Casts UA NOT REPORTED /LPF [facility] Work Phone: Crystals, UA NOT REPORTED None /HPF [facility] Work Phone: Epithelial Cells UA 5 TO 10 [facility] Work Phone: Interpretation and review of laboratory results Abnormal [facility] Work Phone: Mucus, UA 1+ Abnormal None [facility] [employer] Phone: Other Observations UA NOT REPORTED NOT REQ. [facility] [email or web address] Work Phone: RBC, UA None [facility] Work Phone: Renal Epithelial, UA NOT REPORTED 0 /HPF [facility] [email or web address] Work Phone: Trichomonas, UA NOT REPORTED None [facility] Work Phone: WBC, UA 10 TO 20 [facility] [email or web address] Work Phone: Yeast, UA NOT REPORTED None [facility] [email or web address] Work Phone: [facility] Work Phone: UrinalysisOrdered By: Richar Obrien on 05-18-2021 Bilirubin Urine Negative NEGATIVE [facility] Work Phone: Color, UA YELLOW YELLOW [facility] Work Phone: Glucose, Ur Negative NEGATIVE [facility] Work Phone: Interpretation and review of laboratory results Abnormal [facility] Work Phone: Ketones Ql (U) Negative NEGATIVE [facility] Work Phone: Leukocyte esterase Test strip Ql (U) SMALL Abnormal NEGATIVE [facility] Work Phone: Nitrite, Urine Negative NEGATIVE [facility] Work Phone: pH, UA 6.0 [facility] [email or web address] Work Phone: Protein, UA Negative NEGATIVE [facility] Work Phone: Specific [place], UA >1.030 [facility] [email or web address] Work Phone: Turbidity UA SLIGHTLY CLOUDY Abnormal CLEAR [facility] Work Phone: Urinalysis Comments NOT REPORTED [facility] [email or web address] Work Phone: Urine Hgb Negative NEGATIVE [facility] Work Phone: Urobilinogen, Urine Normal Normal [facility] Work Phone: [facility] Work Phone: Urinalysis, Routineon 2020 Bilirubin, SemiQt,Ur Negative Normal NEG [facility] Comment on above: Performed By: #### S [facility] #### [facility] [address] [place] [address] Microbiology Lab Analyst: Collin De La Fuente MD Blood, Urine Negative Normal NEG [facility] Comment on above: Performed By: #### S WCGP #### [address] [address] Microbiology Lab Analyst: Collin De La Fuente MD Clarity (U) SLIGHTLY CLOUDY Abnormal CLEAR [facility] Comment on above: Performed By: #### S WCGP #### [address] [address] Microbiology Lab Analyst: Collin De La Fuente MD Color (U) YELLOW Normal YEL [facility] Comment on above: Performed By: #### S WCGP #### [address] [address] Microbiology Lab Analyst: Collin De La Fuente MD Glucose Ql (U) Negative Normal NEG [facility] Comment on above: Performed By: #### S WCGP #### [address] [address] Microbiology Lab Analyst: Collin De La Fuente MD Ketones Ql (U) Negative Normal NEG [facility] Comment on above: Performed By: #### S WCGP #### [address] [address] Microbiology Lab Analyst: Collin De La Fuente MD Leukocyte esterase Test strip Ql (U) SMALL Abnormal NEG [facility] Comment on above: Performed By: #### S WCGP #### [address] [address] Microbiology Lab Analyst: Collin De La Fuente MD Nitrite,Ur Negative Normal NEG [facility] Comment on above: Performed By: #### S WCGP #### [address] [address] Microbiology Lab Analyst: Collin De La Fuente MD PH,Ur 6.0 Normal 5.0-9.0 [facility] Comment on above: Performed By: #### S WCGP #### [address] [place] [address] Microbiology Lab Analyst: Collin De La Fuente MD Protein Ql (U) Negative Normal NEG [facility] Comment on above: Performed By: #### S WCGP #### [address] [address] Microbiology Lab Analyst: Collin De La Fuente MD Spec. [place],Ur >1.030 High 1.010-1.020 [facility] Comment on above: Performed By: #### S WCGP #### [address] [address] Microbiology Lab Analyst: Collin De La Fuente MD Urobilinogen,Ur Normal Normal NORM [facility] Comment on above: Performed By: #### S WCGP #### [address] [address] Microbiology Lab Analyst: Collin De La Fuente MD Comment NOT REPORTED Normal [facility] Comment on above: Performed By: #### S WCGP #### [address] [address] Microbiology Lab Analyst: Collin De La Fuente MD Urinalysis,Microon 1 ----- Normal [facility] Comment on above: Performed By: #### S WCGP #### [address] [address] Microbiology Lab Analyst: Collin De La Fuente MD Bacteria 2+ Abnormal NONE [facility] Comment on above: Performed By: #### S WCGP #### [address] [address] Microbiology Lab Analyst: Collin De La Fuente MD Epithelial cells LM Ql (Urine sed) 5 TO 10 Normal 0-25 [facility] Comment on above: Performed By: #### S WCGP #### [address] [address] Microbiology Lab Analyst: Collin De La Fuente MD Mucus Strands 1+ Abnormal NONE [facility] Comment on above: Performed By: #### S WCGP #### [facility] [place] [address] Microbiology Lab Analyst: Collin De La Fuente MD Urine RBC's None Normal 0-2 [facility] Comment on above: Performed By: #### S WCGP #### [facility] [place] [address] Microbiology Lab Analyst: Collin De La Fuente MD Urine WBC's 10 TO 20 Normal 0-5 [facility] Comment on above: Performed By: #### S WCGP #### [address] [address] Microbiology Lab Analyst: Collin De La Fuente MD Amorphous sediment LM Ql (Urine sed) NOT REPORTED Normal NONE [facility] Comment on above: Performed By: #### S WCGP #### [address] [address] Microbiology Lab Analyst: Collin De La Fuente MD Casts NOT REPORTED Normal [facility] Comment on above: Performed By: #### S WCGP #### [address] [address] Microbiology Lab Analyst: Collin De La Fuente MD Crystals LM Nom (Urine sed) NOT REPORTED Normal NONE [facility] Comment on above: Performed By: #### S WCGP #### [address] [address] Microbiology Lab Analyst: Collin De La Fuente MD Epithelial, Renal NOT REPORTED Normal 0 [facility] Comment on above: Performed By: #### S WCGP #### [facility] [address] [place] [address] Microbiology Lab Analyst: Collin De La Fuente MD Other Observations NOT REPORTED [facility] Comment on above: Performed By: #### S WCGP #### [facility] [address] [place] [address] Microbiology Lab Analyst: Collin De La Fuente MD Trichomonas NOT REPORTED Normal NONE [facility] Comment on above: Performed By: #### S WCGP #### [facility] [address] [place], [place] [phone] Microbiology Lab Analyst: Collin De La Fuente MD Yeast NOT REPORTED Normal NONE [facility] Comment on above: Performed By: #### S WCGP #### [facility] [address] [place], [place] [phone] Microbiology Lab Analyst: Collin De La Fuente MD Basic Metab w/rfx MGon 04-14 (cont.) Normal [facility] Comment on above: Result Comment: Aver age GFR for 20-29 years old: 116 mL/min/1.73sq m Chronic Kidney Disease: <60 mL/min/1.73sq m Kidney failure: <15 mL/min/1.73sq m eGFR calculated using average adult body mass. Additional eGFR calculator available at: http://www.[employer]/multiple_crcl_2012.htm Performed By: #### B MPX, LIP, LIVP, CDP #### [address] [place] [address] Microbiology Lab Analyst: Amna Clements MD Anion gap [Moles/Vol] 12 mmol/L Normal - [facility] Comment on above: Performed By: #### B MPX, LIP, LIVP, CDP #### [address] [place] [address] Microbiology Lab Analyst: Amna Clements MD BUN/CRE Ratio 19 Normal - [facility] Comment on above: Performed By: #### B MPX, LIP, LIVP, CDP #### [facility] [address] [place] [address] Microbiology Lab Analyst: Amna Clements MD Calcium [Mass/Vol] 8.8 mg/dL Normal 8.6-10.4 [facility] Comment on above: Performed By: #### B MPX, LIP, LIVP, CDP #### [facility] [address] [place], [place] 1055183 Microbiology Lab Analyst: Amna Clements MD Chloride [Moles/Vol] 101 mmol/L Normal 98-107 [facility] Comment on above: Performed By: #### B MPX, LIP, LIVP, CDP #### [facility] [address] [place], [place] [phone] Microbiology Lab Analyst: Amna Clements MD CO2 [Moles/Vol] 23 mmol/L Normal 20-31 [facility] Comment on above: Performed By: #### B MPX, LIP, LIVP, CDP #### [facility] [address] [place], [place] [phone] Microbiology Lab Analyst: Amna Clements MD Creatinine [Mass/Vol] 0.47 mg/dL Low 0.50-0.90 [facility] Comment on above: Performed By: #### B MPX, LIP, LIVP, CDP #### [facility] [address] [place], [place] [phone] Microbiology Lab Analyst: Amna Clements MD GFR, Amer >60 Normal >60 [facility] Comment on above: Performed By: #### B MPX, LIP, LIVP, CDP #### [facility] [address] [place], [place] [phone] Microbiology Lab Analyst: Amna Clements MD GFR,non Amer >60 Normal >60 [facility] Comment on above: Performed By: #### B MPX, LIP, LIVP, CDP #### [facility] [address] [place], [place] [phone] Microbiology Lab Analyst: Amna Clements MD Glucose [Mass/Vol] 106 mg/dL High 70-99 [facility] Comment on above: Performed By: #### B MPX, LIP, LIVP, CDP #### [facility] [address] [place] [address] Microbiology Lab Analyst: Amna Clements MD Potassium [Moles/Vol] 3.7 mmol/L Normal 3.7-5.3 [facility] Comment on above: Performed By: #### B MPX, LIP, LIVP, CDP #### [facility] [address] [place] [address] Microbiology Lab Analyst: Amna Clements MD Sodium [Moles/Vol] 136 mmol/L Normal 135-144 [facility] Comment on above: Performed By: #### B MPX, LIP, LIVP, CDP #### [facility] [address] [place] [address] Microbiology Lab Analyst: Amna Clements MD Staging: Normal [facility] Comment on above: Result Comment: Stag e 1: Some kidney damage normal GFR Stage 2: Mild kidney damage GFR 60-89 Stage 3: Moderate kidney damage GFR 30-59 Stage 4: Severe kidney damage GFR 15-29 Stage 5: Severe kidney damage GFR <15 ESRD - chronic treatment by dialysis or transplant Performed By: #### B MPX, LIP, LIVP, CDP #### [facility] [address] [place] [address] Microbiology Lab Analyst: Amna Clements MD Urea nitrogen [Mass/Vol] 9 mg/dL Normal 6-20 [facility] Comment on above: Performed By: #### B MPX, LIP, LIVP, CDP #### [facility] [address] [place] [address] Microbiology Lab Analyst: Amna Clements MD Basic Metabolic Panel w/ Ref ladi to MGOrdered By: Cisco Lopez on 04-14-2021 Anion gap [Moles/Vol] 12 mmol/L 9 - 17 mmol/L [facility] [employer] Phone: Calcium [Mass/Vol] 8.8 mg/dL 8.6 - 10. 4 mg/dL [facility] [employer] Phone: Chloride [Moles/Vol] 101 mmol/L 98 - 10 7 mmol/L [facility] Work Phone: CO2 [Moles/Vol] 23 mmol/L 20 - 31 mmol/L [facility] [employer] Phone: Creatinine [Mass/Vol] 0.47 mg/dL Low 0.50 - 0.90 mg/dL [facility] [email or web address] Work Phone: GFR >60 >60 mL/min [facility] [email or web address] Work Phone: GFR Non- >60 >60 mL/min [facility] [email or web address] Work Phone: Glucose [Mass/Vol] 106 mg/dL High 70 - 99 mg/dL [facility] [email or web address] Work Phone: Interpretation and review of laboratory results Abnormal [facility] [employer] Phone: Potassium [Moles/Vol] 3.7 mmol/L 3.7 - 5.3 mmol/L [facility] Work Phone: Sodium [Moles/Vol] 136 mmol/L 135 - 144 mmol/L [facility] [email or web address] Work Phone: Urea nitrogen (BldV) [Mass/Vol] 9 mg/dL 6 - 20 mg/dL [facility] [employer] Phone: Urea nitrogen/Creatinine (Bld) [Mass ratio] 19 [facility] [email or web address] Work Phone: CBC Auto DifferentialOrdered By: Cisco Lopez on 04-14-2021 Absolute Eos # 0.00 [facility] Work Phone: Absolute Immature Granulocyte 0.00 [facility] Work Phone: Absolute Lymph # 2.00 [facility] Work Phone: Absolute Crenshaw # 1.78 High [facility] Work Phone: Basophils (Bld) [#/Vol] 0.00 10*3/uL [facility] [email or web address] Work Phone: Basophils/100 WBC (Bld) 0 % 0 - 2 % M [employer] Phone: Differential Type NOT REPORTED [email or web address] Phone: Eosinophils/100 WBC (Bld) 0 % Low 1 - 4 % [email or web address] Phone: Hematocrit (Bld) [Volume fraction] 38.4 % 36.3 - 47.1 % [email or web address] Phone: Hemoglobin.gastrointesti nal spec 1 Ql (Stl) 12.5 g/dL 11.9 - 15.1 g/dL [email or web address] Phone: Immature granulocytes/100 WBC (Bld) 0 % 0 [email or web address] Phone: Interpretation and review of laboratory results Abnormal [email or web address] Phone: Lymphocytes/100 WBC (Bld) 9 % Low 24 - 43 % [email or web address] Phone: MCH (RBC) [Entitic mass] 29.6 pg 25. 2 - 33.5 pg [email or web address] Phone: MCHC (RBC) [Mass/Vol] 32.6 g/dL 28.4 - 34.8 g/dL [email or web address] Phone: MCV (RBC) [Entitic vol] 91.0 fL 82.6 - 102.9 fL [email or web address] Phone: Monocytes/100 WBC (Bld) 8 % 3 - 12 % M [employer] Phone: Morphology Hay (Bld) [Interp] Normal [email or web address] Phone: NRBC Automated 0.0 0.0 per 100 WBC [email or web address] Phone: Platelet distribution width (Bld) [Ratio] 13.4 % 11.8 - 14.4 % [email or web address] Phone: Platelet Estimate NOT REPORTED [email or web address] Phone: Platelet mean volume (Bld) [Entitic vol] 10.2 fL 8.1 - 13.5 fL [employer] Work Phone: Platelets (Bld) [#/Vol] 321 10*3/uL [email or web address] Phone: RBC (Bld) [#/Vol] 4.22 10*6/uL 3.95 - 5.1 1 m/uL [employer] Work Phone: RBC (Bld) [#/Vol] NOT REPORTED [email or web address] Phone: Segmented neutrophils/100 WBC (Bld) 83 % High 36 - 65 % [employer] Work Phone: Segs Absolute 18.42 High [facility]no Work Phone: WBC (Bld) [#/Vol] 22.2 10*3/uL High [email or web address] Phone: WBC (Bld) [#/Vol] NOT REPORTED [email or web address] Phone: [employer] Work Phone: CBC with Diffon 04-14-2021 Abs. Basophil 0.00 k/uL Normal 0.0-0.2 [facility] Comment on above: Performed By: #### S WCGP #### [facility] [address] [place] [address] Microbiology Lab Analyst: Collin De La Fuente MD Abs.Imm.Granulocyte 0.00 k/uL Normal 0.00-0.30 [facility] Comment on above: Performed By: #### S WCGP #### [facility] [address] [place] [address] Microbiology Lab Analyst: Collin De La Fuente MD Abs.Neutrophil (Seg) 18.42 k/uL High 1.50-8.10 [facility] Comment on above: Performed By: #### S WCGP #### [facility] [place], [place] [phone] Microbiology Lab Analyst: Collin De La Fuente MD Basophils/100 WBC (Bld) 0 % Normal 0-2 M [facility] Comment on above: Performed By: #### S WCGP #### [address] [address] Microbiology Lab Analyst: Collin De La Fuente MD Eosinophils (Bld) [#/Vol] 0.00 10*3/uL Normal 0.00-0.44 [facility] Comment on above: Performed By: #### S WCGP #### [address] [address] Microbiology Lab Analyst: Collin De La Fuente MD Eosinophils/100 WBC (Bld) 0 % Low 1-4 [facility] Comment on above: Performed By: #### S WCGP #### [address] [address] Microbiology Lab Analyst: Collin De La Fuente MD Immature granulocytes/100 WBC (Bld) 0 % Normal 0 [facility] Comment on above: Performed By: #### S WCGP #### [address] [address] Microbiology Lab Analyst: Collin De La Fuente MD Lymphocytes (Bld) [#/Vol] 2.00 10*3/uL Normal 1.10-3.70 [facility] Comment on above: Performed By: #### S WCGP #### [address] [address] Microbiology Lab Analyst: Collin De La Fuente MD Lymphocytes/100 WBC (Bld) 9 % Low 24-43 [facility] Comment on above: Performed By: #### S WCGP #### [address] [address] Microbiology Lab Analyst: Collin De La Fuente MD Monocytes (Bld) [#/Vol] 1.78 10*3/uL High 0.10-1.20 [facility] Comment on above: Performed By: #### S WCGP #### [address] [address] Microbiology Lab Analyst: Collin De La Fuente MD Monocytes/100 WBC (Bld) 8 % Normal 3-12 [facility] Comment on above: Performed By: #### S WCGP #### [facility] [address] [place] [address] Microbiology Lab Analyst: Collin De La Fuente MD Morphology Hay (Bld) [Interp] Normal Normal [facility] Comment on above: Performed By: #### S WCGP #### [address] [address] Microbiology Lab Analyst: Collin De La Fuente MD Neutrophil (Seg) 83 % High 36-65 [facility] Comment on above: Performed By: #### S WCGP #### [address] [address] Microbiology Lab Analyst: Collin De La Fuente MD Erythrocyte distribution width (RBC) [Ratio] 13.4 % Normal 11.8-14.4 [facility] Comment on above: Performed By: #### S WCGP #### [address] [address] Microbiology Lab Analyst: Collin De La Fuente MD Hematocrit (Bld) [Volume fraction] 38.4 % Normal 36.3-47.1 [facility] Comment on above: Performed By: #### S WCGP #### [address] [address] Microbiology Lab Analyst: Collin De La Fuente MD Hemoglobin (Bld) [Mass/Vol] 12.5 g/dL Normal 11.9-15.1 [facility] Comment on above: Performed By: #### S WCGP #### [address] [address] Microbiology Lab Analyst: Collin De La Fuente MD MCH (RBC) [Entitic mass] 29.6 pg Normal 25.2-33.5 [facility] Comment on above: Performed By: #### S WCGP #### [address] [address] Microbiology Lab Analyst: Collin D eLa Fuente MD MCHC (RBC) [Mass/Vol] 32.6 g/dL Normal 28.4-34.8 [facility] Comment on above: Performed By: #### S WCGP #### [address] [address] Microbiology Lab Analyst: Collin De La Fuente MD MCV (RBC) [Entitic vol] 91.0 fL Normal 82.6-102.9 [facility] Comment on above: Performed By: #### S WCGP #### [address] [address] Microbiology Lab Analyst: Collin De La Fuente MD NRBC Automated 0.0 per 100 WBC Normal 0.0 [facility] Comment on above: Performed By: #### S WCGP #### [address] [address] Microbiology Lab Analyst: Collin De La Fuente MD Platelet mean volume (Bld) [Entitic vol] 10.2 fL Normal 8.1-13.5 [facility] Comment on above: Performed By: #### S WCGP #### [address] [address] Microbiology Lab Analyst: Collin De La Fuente MD Platelets (Bld) [#/Vol] 321 10*3/uL Normal 138-453 [facility] Comment on above: Performed By: #### S WCGP #### [address] [address] Microbiology Lab Analyst: Collin De La Fuente MD RBC (Bld) [#/Vol] 4.22 10*6/uL Normal 3.95-5.11 [facility] Comment on above: Performed By: #### S WCGP #### [address] [address] Microbiology Lab Analyst: Collin De La Fuente MD WBC (Bld) [#/Vol] 22.2 10*3/uL High 3.5-11.3 [facility] Comment on above: Performed By: #### S WCGP #### [facility] [address] [place] [address] Microbiology Lab Analyst: Collin De La Fuente MD Auto Diff Performed NOT REPORTED Normal [facility] Comment on above: Performed By: #### S WCGP #### [facility] [place] [address] Microbiology Lab Analyst: Collin De La Fuente MD Platelet Estimate NOT REPORTED Normal [facility] Comment on above: Performed By: #### S WCGP #### [facility] [place] [address] Microbiology Lab Analyst: Collin De La Fuente MD RBC morphology finding Nom (Bld) NOT REPORTED Normal [facility] Comment on above: Performed By: #### S WCGP #### [facility] [address] [place] [address] Microbiology Lab Analyst: Collin De La Fuente MD WBC Morphology NOT REPORTED Normal [facility] Comment on above: Performed By: #### S WCGP #### [facility] [address] [place] [address] Microbiology Lab Analyst: Collin De La Fuente MD Hepatic Function PanelOrdere d By: Cisco Lopez on 04-14-2021 Albumin [Mass/Vol] 3.7 g/dL 3.5 - 5.2 g/dL [facility] Phone: Albumin/Globulin [Mass ratio] 1.1 {ratio} [facility] Phone: ALP (Bld) [Catalytic activity/Vol] 68 U/L 35 - 104 U/L [email or web address] Phone: ALT [Catalytic activity/Vol] 36 U/L High 5 - 33 U/L [facility] Phone: AST [Catalytic activity/Vol] 37 U/L High <32 [email or web address] Phone: Bilirubin [Mass/Vol] mg/dL Low 0.3 - 1 .2 mg/dL [email or web address] Phone: Bilirubin, Indirect CANNOT BE CALCULATED 0.00 - 1.00 mg/dL [email or web address] Phone: Bilirubin.indirect [Mass/Vol] mg/dL <0.31 mg/dL [email or web address] Phone: Free PSA/Total PSA [Mass fraction] 7.0 g/dL 6.4 - 8.3 g/dL [email or web address] Phone: Globulin NOT REPORTED 1.5 - 3.8 g/dL [email or web address] Phone: Interpretation and review of laboratory results Abnormal [email or web address] Phone: [email or web address] Phone: Laboratory - Chemistry and C hemistry - challengeOrdered By: Cisco Lopez on 04-14-2021 GFR/1.73 sq M.predicted MDRD (S/P/Bld) [Vol rate/Area] [email or web address] Phone: Comment on above: Average GFR for 20-2 9 years old: 116 mL/min/1.73sq m Chronic Kidney Disease: <60 mL/min/1.73sq m Kidney failure: <15 mL/min/1.73sq m eGFR calculated using average adult body mass. Additional eGFR calculator available at: http://www.[employer]/multiple_crcl_2011.htm Stage 1: Some kidney damage normal GFR Stage 2: Mild kidney damage GFR 60-89 Stage 3: Moderate kidney damage GFR 30-59 Stage 4: Severe kidney damage GFR 15-29 Stage 5: Severe kidney damage GFR <15 ESRD - chronic treatment by dialysis or transplant Lipaseon 04-14-2021 Lipase [Catalytic activity/Vol] 40 U/L Normal 13-60 [facility] Comment on above: Performed By: #### B MPX, LIP, LIVP, CDP #### [facility] [address] [place], [place] [phone] Microbiology Lab Analyst: Amna Clements MD LipaseOrdered By: Brandy on 04-14-2021 Lipase [Catalytic activity/Vol] 40 U/L 13 - 60 U/L [facility] Work Phone: Liver Profileon 04-14-2021 Bilirubin [Mass/Vol] mg/dL Low 0.3-1.2 [facility] Comment on above: Performed By: #### B MPX, LIP, LIVP, CDP #### [facility] [address] [place], [place] [phone] Microbiology Lab Analyst: Amna Clements MD Bilirubin, Indirect CANNOT BE CALCULATED Normal 0.00-1 .00 [facility] Comment on above: Performed By: #### B MPX, LIP, LIVP, CDP #### [facility] [address] [place] [address] [address] [place], [place] [phone] Microbiology Lab Analyst: Amna Clements MD Albumin [Mass/Vol] 3.7 g/dL Normal 3.5-5.2 [facility] Comment on above: Performed By: #### B MPX, LIP, LIVP, CDP #### [facility] [address] [place] [address] [place] [place], [place] [phone] Microbiology Lab Analyst: Amna Clements MD Albumin/Glob Ratio 1.1 Normal 1.0-2.5 [facility] Comment on above: Performed By: #### B MPX, LIP, LIVP, CDP #### [facility] [address] [place] [address] [place] [place], [place] [phone] Microbiology Lab Analyst: Amna Clements MD Alkaline Phos 68 U/L Normal 35-104 [facility] Comment on above: Performed By: #### B MPX, LIP, LIVP, CDP #### [facility] [address] [place], [place] [phone] Microbiology Lab Analyst: Amna Clements MD ALT [Catalytic activity/Vol] 36 U/L High 5-33 [facility] Comment on above: Performed By: #### B MPX, LIP, LIVP, CDP #### [facility] [address] [place], [place] [phone] Microbiology Lab Analyst: Amna Clements MD AST [Catalytic activity/Vol] 37 U/L High <32 [facility] Comment on above: Performed By: #### B MPX, LIP, LIVP, CDP #### [facility] [address] [place], [place] [phone] Microbiology Lab Analyst: Amna Clements MD Bilirubin.indirect [Mass/Vol] mg/dL Normal <0.31 [facility] Comment on above: Performed By: #### B MPX, LIP, LIVP, CDP #### [facility] [address] [place], [place] [phone] Microbiology Lab Analyst: Amna Clements MD Protein [Mass/Vol] 7.0 g/dL Normal 6.4-8.3 [facility] Comment on above: Performed By: #### B MPX, LIP, LIVP, CDP #### [address] [place], [place] [address]83 Microbiology Lab Analyst: Amna Clements MD Globulin Fraction NOT REPORTED Normal 1.5-3.8 [facility] Comment on above: Performed By: #### B MPX, LIP, LIVP, CDP #### [address] [place], [place] [phone] Microbiology Lab Analyst: Amna Clements MD Microscopic UrinalysisOrdere d By: Cisco Lopez on 04-14-2021 - [facility] Work Phone: Amorphous, UA NOT REPORTED None [facility] Work Phone: Bacteria, UA TRACE Abnormal None [facility] Work Phone: Casts UA NOT REPORTED /LPF [facility] Work Phone: Crystals, UA NOT REPORTED None /HPF [facility] Work Phone: Epithelial Cells UA 10 TO 20 [facility] Work Phone: Interpretation and review of laboratory results Abnormal [facility] Work Phone: Mucus, UA TRACE Abnormal None [facility] Work Phone: Other Observations UA NOT REPORTED NOT REQ. M [facility] [email or web address] Work Phone: RBC, UA 0 TO 2 [facility] Work Phone: Renal Epithelial, UA NOT REPORTED 0 /[facility] Work Phone: Trichomonas, UA NOT REPORTED None [facility] [employer] Work Phone: WBC, UA 0 TO 2 [facility] [email or web address] Work Phone: Yeast, UA NOT REPORTED None [facility] [email or web address] Work Phone: [facility] [email or web address] Work Phone: No Panel InformationOrdered By: Cisco Lopez on 04-14-2021 [facility] [email or web address] Work Phone: UA w/Reflex Cultureon 2020 Bilirubin, SemiQt,Ur Negative Normal NEG [facility] Comment on above: Performed By: #### S WCGP #### [facility] [address] [place] [address] [id number] Microbiology Lab Analyst: Collin De La Fuente MD Blood, Urine Negative Normal NEG [facility] Comment on above: Performed By: #### S WCGP #### [facility] [address] [place] [address] [phone] Microbiology Lab Analyst: Collin De La Fuente MD Clarity (U) CLEAR Normal CLEAR [facility] Comment on above: Performed By: #### S WCGP #### [facility] [address] [place] [address] [phone] Microbiology Lab Analyst: Collin De La Fuente MD Color (U) YELLOW Normal YEL [facility] Comment on above: Performed By: #### S WCGP #### [facility] [address] [place] [address] Microbiology Lab Analyst: Collin De La Fuente MD Glucose Ql (U) Negative Normal NEG [facility] Comment on above: Performed By: #### S WCGP #### [address] [address] Microbiology Lab Analyst: Collin De La Fuente MD Ketones Ql (U) TRACE Abnormal NEG [facility] in Hospital Comment on above: Performed By: #### S WCGP #### [address] [address] Microbiology Lab Analyst: Collin De La Fuente MD Leukocyte esterase Test strip Ql (U) Negative Normal NEG [facility] Comment on above: Performed By: #### S WCGP #### [address] [address] Microbiology Lab Analyst: Collin De La Fuente MD Nitrite,Ur Negative Normal NEG [facility] Comment on above: Performed By: #### S WCGP #### [address] [address] Microbiology Lab Analyst: Collin De La Fuente MD PH,Ur 5.5 Normal 5.0-9.0 [facility] Comment on above: Performed By: #### S WCGP #### [address] [address] Microbiology Lab Analyst: Collin De La Fuente MD Protein Ql (U) TRACE Abnormal NEG [facility] in Hospital Comment on above: Performed By: #### S WCGP #### [address] [address] Microbiology Lab Analyst: Collin De La Fuente MD Spec. [place],Ur >1.030 High 1.010-1.020 [facility] Comment on above: Performed By: #### S WCGP #### [address] [address] Microbiology Lab Analyst: Collin De La Fuente MD Urobilinogen,Ur Normal Normal NORM [facility] Comment on above: Performed By: #### S WCGP #### [facility] [address] [place], [place] [phone] Microbiology Lab Analyst: Collin De La Fuente MD Comment NOT REPORTED Normal [facility] Comment on above: Performed By: #### S WCGP #### [facility] [address] [place], [place] [phone] Microbiology Lab Analyst: Collin De La Fuente MD Urinalysis Reflex to Culture Ordered By: Cisco Lopez on 04-14-2021 Bilirubin Urine Negative NEGATIVE [facility] Work Phone: Color, UA YELLOW YELLOW [facility] [email or web address] Work Phone: Glucose, Ur Negative NEGATIVE [facility] [employer] Phone: Interpretation and review of laboratory results Abnormal [facility] [employer] Phone: Ketones Ql (U) TRACE Abnormal NEGATIVE [facility] Work Phone: Leukocyte esterase Test strip Ql (U) Negative NEGATIVE [facility] [employer] Phone: Nitrite, Urine Negative NEGATIVE [facility] Work Phone: pH, UA 5.5 [facility] [employer] Phone: Protein, UA TRACE Abnormal NEGATIVE [facility] [employer] Phone: Specific [place], UA >1.030 High [facility] [employer] Phone: Turbidity UA CLEAR CLEAR [facility] [employer] Phone: Urinalysis Comments NOT REPORTED [facility] [email or web address] Work Phone: Urine Hgb Negative NEGATIVE [facility] [employer] Phone: Urobilinogen, Urine Normal Normal [facility] [employer] Phone: [facility] [employer] Phone: Urinalysis,Microon 1 ----- Normal [facility] Comment on above: Performed By: #### U MICAO, UA #### [facility] [address] [place], [place] [phone] Microbiology Lab Analyst: Amna Clements MD Bacteria TRACE Abnormal NONE [facility] Comment on above: Performed By: #### U MICAO, UA #### [facility] [address] [place], [id number] Microbiology Lab Analyst: Amna Clements MD Epithelial cells LM Ql (Urine sed) 10 TO 20 Normal 0-25 [facility] Comment on above: Performed By: #### U ROSAO, UA #### [facility] [address] [place], [id number] Microbiology Lab Analyst: Amna Clements MD Mucus Strands TRACE Abnormal [facility] Comment on above: Performed By: #### U ROSAO, UA #### [facility] [address] [place], [id number] Microbiology Lab Analyst: Amna Clements MD Urine RBC's 0 TO 2 Normal 0-2 [facility] Comment on above: Performed By: #### U MICAO, UA #### [facility] [address] [place], [place] [phone] Microbiology Lab Analyst: Amna Clements MD Urine WBC's 0 TO 2 Normal 0-5 [facility] Comment on above: Performed By: #### U MICAO, UA #### [facility] [address] [place], [place] [phone] Microbiology Lab Analyst: Amna Clements MD Amorphous sediment LM Ql (Urine sed) NOT REPORTED Normal [facility] Comment on above: Performed By: #### U MICAO, UA #### [facility] [address] [place], [place] [phone] Microbiology Lab Analyst: Amna Clements MD Casts NOT REPORTED Normal [facility] Comment on above: Performed By: #### U MICAO, UA #### [facility] [address] [place] [address] Microbiology Lab Analyst: Amna Clements MD Crystals LM Nom (Urine sed) NOT REPORTED Normal [facility] Comment on above: Performed By: #### U MICAO, UA #### [facility] [address] [place] [address] Microbiology Lab Analyst: Amna Clements MD Epithelial, Renal NOT REPORTED Normal 0 [facility] Comment on above: Performed By: #### U MICAO, UA #### [facility] [address] [place], [place] [phone] Microbiology Lab Analyst: Amna Clements MD Other Observations NOT REPORTED [facility] Comment on above: Performed By: #### U MICAO, UA #### [facility] [address] [place] [address] Microbiology Lab Analyst: Amna Clements MD Trichomonas NOT REPORTED Normal [facility] Comment on above: Performed By: #### U MICAO, UA #### [facility] [address] [place] [address] Microbiology Lab Analyst: Amna Clemenst MD Yeast NOT REPORTED Normal [facility] Comment on above: Performed By: #### U MICAO, UA #### [facility] [address] [place] [address] Microbiology Lab Analyst: Amna Clements MD D-Dimer Teston 03-24-2021 D-Dimer Test 0.44 mg/L FEU Normal 0.00-0.59 [facility] Comment on above: Result Comment: When [...] with distal DVT. Performed By: #### S [facility] #### [facility] [address] [place] [address] Microbiology Lab Analyst: Collin De La Fuente MD D-Dimer, QuantitativeOrdered By: Lidia Núñez on 03-23-2021 D-Dimer, Quant 0.44 [employer] [facility] Work Phone: Comment on above: When [...] Ampon 03-11 Chlamydia Probe Negative Normal NEG [facility] Comment on above: Result Comment: CHLA [...] target. Performed By: #### S WCGP #### [address] [place], [place] [phone] Microbiology Lab Analyst: Collin De La Fuente MD Gonorrhea Probe Negative Normal [facility] Comment on above: Result Comment: NEIS [...] target. Performed By: #### S WCGP #### [address] [place], [place] [phone] Microbiology Lab Analyst: Collin De La Fuente MD Cult,Urineon 03-11-2021 Cult,Urine Specimen Description .CLEAN CATCH URINE Special Requests NOT REPORTED Culture NO SIGNIFICANT GROWTH Report Status FINAL 03/11/2021 Normal [facility] Comment on above: Performed By: #### U RC #### [id number] [place] [address] Microbiology Lab Analyst: Collin De La Fuente MD [address] [place] [address] Microbiology Lab Analyst: Amna Clements MD HCG, ,Urineon 03-10 Beta HCG ( test) Ql (U) Positive Abnormal NEG [facility] Comment on above: Result Comment: If HCG results do not concur with clinical observations, additional testing to confirm result is recommended. This test is not labeled for use as a tumor marker. [facility] has confirmed the use of plasma for this test. This has not been cleared or approved by the U.S. Food and Drug Administration. The FDA has determined that such clearance is not necessary. Performed By: #### S WCGP #### [address] [place] [address] Microbiology Lab Analyst: Collin De La Fuente MD Trichomonas/Wet Prepon 03-10 Trichomonas/Wet Prep Specimen Descriptio n .VAGINA Special Requests NOT REPORTED Direct Exam NO TRICHOMONAS SEEN NO YEAST OBSERVED RARE CLUE CELLS SEEN Report Status FINAL 03/10/2021 Normal [facility] Comment on above: Performed By: #### W P #### [facility] [address] [place] [address] Microbiology Lab Analyst: Amna Clements MD UA w/Reflex Cultureon 2020 Acetoacetic Acid,Ur Negative Normal NEG [facility] Comment on above: Performed By: #### S WCGP #### [address] [address] Microbiology Lab Analyst: Collin De La Fuente MD Bilirubin, SemiQt,Ur Negative Normal NEG [facility] Comment on above: Performed By: #### S WCGP #### [address] [address] Microbiology Lab Analyst: Collin De La Fuente MD Color (U) YELLOW Normal YEL [facility] Comment on above: Performed By: #### S WCGP #### [address] [address] Microbiology Lab Analyst: Collin De La Fuente MD Glucose Ql (U) Negative Normal NEG [facility] Comment on above: Performed By: #### S WCGP #### [address] [address] Microbiology Lab Analyst: Collin De La Fuente MD Hemoglobin, Ur Negative Normal NEG [facility] Comment on above: Performed By: #### S WCGP #### [address] [address] Microbiology Lab Analyst: Collin De La Fuente MD Leukocyte esterase Test strip Ql (U) LARGE Abnormal NEG [facility] Comment on above: Performed By: #### S WCGP #### [address] [address] Microbiology Lab Analyst: Collin De La Fuente MD Nitrite,Ur Negative Normal NEG [facility] Comment on above: Performed By: #### S WCGP #### [address] [address] Microbiology Lab Analyst: Collin De La Fuente MD PH,Ur 7.5 Normal 5.0-9.0 [facility] Comment on above: Performed By: #### S WCGP #### [address] [address] Microbiology Lab Analyst: Collin De La uFente MD Protein Ql (U) Negative Normal NEG [facility] Comment on above: Performed By: #### S WCGP #### [address] [address] Microbiology Lab Analyst: Collin De La Fuente MD Spec. [place],Ur 1.020 Normal 1.010-1.020 [facility] Comment on above: Performed By: #### S WCGP #### [address] [address] Microbiology Lab Analyst: Collin De La Fuente MD Turbidity CLOUDY Abnormal CLEAR [facility] Comment on above: Performed By: #### S WCGP #### [address] [address] Microbiology Lab Analyst: Collin De La Fuente MD Urobilinogen,Ur Normal Normal NORM [facility] Comment on above: Performed By: #### S WCGP #### [address] [address] Microbiology Lab Analyst: Collin De La Fuente MD Comment NOT REPORTED Normal [facility] Comment on above: Performed By: #### S WCGP #### [address] [address] Microbiology Lab Analyst: Collin De La Fuente MD Urinalysis,Microon 1 ----- Normal [facility] Comment on above: Performed By: #### S WCGP #### [address] [address] Microbiology Lab Analyst: Collin De La Fuente MD Amorphous sediment LM Ql (Urine sed) 1+ Abnormal NONE [facility] Comment on above: Performed By: #### S WCGP #### [address] [address] Microbiology Lab Analyst: Collin De La Fuente MD Bacteria 3+ Abnormal NONE [facility] Comment on above: Performed By: #### S WCGP #### [address] [address] Microbiology Lab Analyst: Collin De La Fuente MD Epithelial cells LM Ql (Urine sed) 20 TO 50 Normal 0-25 [facility] Comment on above: Performed By: #### S WCGP #### [address] [address] Microbiology Lab Analyst: Collin De La Fuente MD Urine RBC's None Normal 0-2 [facility] Comment on above: Performed By: #### S WCGP #### [address] [address] Microbiology Lab Analyst: Collin De La Fuente MD Urine WBC's 10 TO 20 Normal 0-5 [facility] Comment on above: Performed By: #### S WCGP #### [address] [address] Microbiology Lab Analyst: Collin De La Fuente MD Casts NOT REPORTED Normal [facility] Comment on above: Performed By: #### S WCGP #### [address] [address] Microbiology Lab Analyst: Collin De La Fuente MD Crystals LM Nom (Urine sed) NOT REPORTED Normal NONE [facility] Comment on above: Performed By: #### S WCGP #### [facility] [address] [place] [address] Microbiology Lab Analyst: Collin De La Fuente MD Epithelial, Renal NOT REPORTED Normal 0 [facility] Comment on above: Performed By: #### S WCGP #### [facility] [address] [place] [address] Microbiology Lab Analyst: Collin De La Fuente MD Mucus Strands NOT REPORTED Normal NONE [facility] Comment on above: Performed By: #### S WCGP #### [address] [address] Microbiology Lab Analyst: Collin De La Fuente MD Other Observations NOT REPORTED Normal NREQ [facility] Comment on above: Performed By: #### S WCGP #### [address] [address] Microbiology Lab Analyst: Collin De La Fuente MD Trichomonas NOT REPORTED Normal NONE [facility] Comment on above: Performed By: #### S WCGP #### [address] [place] [address] Microbiology Lab Analyst: Collin De La Fuente MD Yeast NOT REPORTED Normal [facility] Comment on above: Performed By: #### S WCGP #### [address] [address] Microbiology Lab Analyst: Collin De La Fuente MD Cult,Urineon 03-02-2021 Cult,Urine Specimen Description .CLEAN CATCH URINE Special Requests NOT REPORTED Culture NO SIGNIFICANT GROWTH Report Status FINAL 03/02/2021 Normal [facility] Comment on above: Performed By: #### U RC #### [address] [address] Microbiology Lab Analyst: Collin De La Fuente MD [facility] [address] [place] [address] Microbiology Lab Analyst: Amna Clements MD C. Trachomatis, External Res ultOrdered By: Historical Provider on 03-01-2021 C. Trachomatis, External Result Negative [facility] [email or web address] Work Phone: Comment on above: William Joel RN/confirmed with Igor Kinsey RN N. Gonorrhoeae, External Res ultOrdered By: Historical Provider on 03-01-2021 N. Gonorrhoeae, External Result Negative [facility] [email or web address] Work Phone: Comment on above: William Joel RN/confirmed with Igor Kinsey RN No Panel InformationOrdered By: Historical Provider on 03-01-2021 [facility] Work Phone: Microscopic Urinalysison Amorphous, UA NOT REPORTED None [facility] Work Phone: Bacteria, UA NOT REPORTED None [facility] Work Phone: Casts UA NOT REPORTED /LPF [facility] [email or web address] Work Phone: Crystals, UA NOT REPORTED None /[facility] Work Phone: Epithelial Cells UA 50 TO 100 [facility] [email or web address] Work Phone: Mucus, UA NOT REPORTED None [facility] [email or web address] Work Phone: Other Observations UA NOT REPORTED NOT REQ. [facility] [email or web address] Work Phone: RBC (U) [#/Vol] 0 TO 2 [facility] Work Phone: Renal Epithelial, UA NOT REPORTED 0 /[facility] Work Phone: Trichomonas, UA NOT REPORTED None [facility] Work Phone: WBC, UA 20 TO 50 [facility] [email or web address] Work Phone: Yeast, UA NOT REPORTED None [facility] Work Phone: - [facility] Work Phone: Otheron 02-28-2021 Living intrauterine with an estimated gestational age of 13 weeks and 1 day by current ultrasound [email or web address] Phone: Dario, Mhpn Incoming Radiant Results From [employer] - 02/28/2021 1:48 PM EDT EXAMINATION: TRANSABDOMINAL [...] posteriorly to the right. Pole: Single pole Despard Rump Length: 6.8 cm Heart Rate: 160 [...] weeks and 1 day by current ultrasound [email or web address] Phone: EXAMINATION: TRANSABDOMINAL FIRST TRIMESTER OBSTETRIC PELVIC [...] posteriorly to the right. Pole: Single pole Despard Rump Length: 6.8 cm Heart Rate: 160 [...] days Estimated Due Date: 09/04/2021, 08/30/2021 respectively [employer] Phone: US DUP ABD PEL RETRO SCROT [...] posteriorly to the right. Pole: Single pole Despard Rump Length: 6.8 cm Heart Rate: 160 [...] Mariano Min MD 02/28/21 Final result Normal [facility] US OB LESS THAN 14 WEEKS SIN [...] posteriorly to the right. Pole: Single pole Despard Rump Length: 6.8 cm Heart Rate: 160 [...] Mariano Min MD 02/28/21 Final result Normal [facility] Urinalysis, Routineon 2020 Acetoacetic Acid,Ur Negative Normal NEG [facility] Comment on above: Performed By: #### U NILAM UA #### [facility] [address] [place] [address] Microbiology Lab Analyst: Amna Clements MD Bilirubin, SemiQt,Ur Negative Normal NEG [facility] Comment on above: Performed By: #### U NILAM UA #### [facility] [address] [place] [address] Microbiology Lab Analyst: Amna Clements MD Color (U) YELLOW Normal YEL [facility] Comment on above: Performed By: #### U NILAM UA #### [facility] [address] [place], [place] [phone] Microbiology Lab Analyst: Amna Clements MD Glucose Ql (U) Negative Normal NEG [facility] in Hospital Comment on above: Performed By: #### U MICAO, UA #### [facility] [address] [place], [place] 5606083 Microbiology Lab Analyst: Amna Clements MD Hemoglobin, Ur Negative Normal NEG [facility] Comment on above: Performed By: #### U MICAO, UA #### [facility] [address] [place] [address] Dr. [place], [place] [phone] Microbiology Lab Analyst: Amna Clements MD Leukocyte esterase Test strip Ql (U) MODERATE Abnormal NEG [facility] Comment on above: Performed By: #### U MICAO, UA #### [facility] [address] [place] [address] Dr[address] [place], [place] [phone] Microbiology Lab Analyst: Amna Clements MD Nitrite,Ur Negative Normal NEG [facility] Comment on above: Performed By: #### U MICAO, UA #### [facility] [address] [place] [address] Dr. [place], [place] 6567583 Microbiology Lab Analyst: Amna Clements MD PH,Ur 7.5 Normal 5.0-9.0 [facility] Comment on above: Performed By: #### U MICAO, UA #### [facility] [address] [place] [address] Dr. [place], [place] [phone] Microbiology Lab Analyst: Amna Clements MD Protein Ql (U) Negative Normal NEG [facility] in Hospital Comment on above: Performed By: #### U MICAO, UA #### [facility] [address] [place] [address] Dr[address] [place], [place] 4051483 Microbiology Lab Analyst: Amna Clements MD Spec. [place],Ur 1.020 Normal 1.010-1.020 [facility] Comment on above: Performed By: #### U MICAO, UA #### [facility] [address] [place], [place] 0249783 Microbiology Lab Analyst: Amna Clements MD Turbidity CLEAR Normal CLEAR [facility] Comment on above: Performed By: #### U MICAO, UA #### [facility] [address] [place], [place] 3014283 Microbiology Lab Analyst: Amna Clements MD Urobilinogen,Ur Normal Normal NORM [facility] Comment on above: Performed By: #### U MICAO, UA #### [facility] [address] [place], [place] 0420583 Microbiology Lab Analyst: Amna Clements MD Comment NOT REPORTED Normal [facility] Comment on above: Performed By: #### U MICAO, UA #### [facility] [address] [place], [place] 4486183 Microbiology Lab Analyst: Amna Clements MD Urinalysis, reflex to micros copicon 02-28-2021 Bilirubin Urine Negative NEGATIVE [facility] Work Phone: Color, UA YELLOW YELLOW [facility] Work Phone: Glucose, Ur Negative NEGATIVE [facility] Work Phone: Interpretation and review of laboratory results Abnormal [facility] Work Phone: Ketones Ql (U) Negative NEGATIVE [facility] Work Phone: Leukocyte esterase Test strip Ql (U) MODERATE Abnormal NEGATIVE [facility] Work Phone: Nitrite, Urine Negative NEGATIVE [facility] Work Phone: pH, UA 7.5 [facility] Work Phone: Protein (U) [Mass/Vol] Negative NEGATIVE [facility] Work Phone: Specific [place], UA 1.020 [facility] Work Phone: Turbidity UA CLEAR CLEAR [facility] Work Phone: Urinalysis Comments NOT REPORTED [facility] [email or web address] Work Phone: Urine Hgb Negative NEGATIVE [facility] [employer] Phone: Urobilinogen, Urine Normal Normal [facility] [employer] Phone: Urinalysis,Microon 1 ----- Normal [facility] Comment on above: Performed By: #### U MICAO, UA #### [facility] [address] [place] [address] Microbiology Lab Analyst: Amna Clements MD Epithelial cells LM Ql (Urine sed) 50 TO 100 Normal 0-25 [facility] Comment on above: Performed By: #### U MICAO, UA #### [facility] [address] [place] [address] Microbiology Lab Analyst: Amna Clements MD Urine RBC's 0 TO 2 Normal 0-2 [facility] Comment on above: Performed By: #### U MICAO, UA #### [facility] [address] [place], [place] 9683583 Microbiology Lab Analyst: Amna Clements MD Urine WBC's 20 TO 50 Normal 0-5 [facility] Comment on above: Performed By: #### U MICAO, UA #### [facility] [address] [place] [address] Microbiology Lab Analyst: Amna Clements MD Amorphous sediment LM Ql (Urine sed) NOT REPORTED Normal [facility] Comment on above: Performed By: #### U MICAO, UA #### [facility] [address] [place], [place] 468[address]83 Microbiology Lab Analyst: Amna Clements MD Bacteria NOT REPORTED Normal [facility] Comment on above: Performed By: #### U MICAO, UA #### [facility] [address] [place], [place] [phone] Microbiology Lab Analyst: Amna Clements MD Casts NOT REPORTED Normal [facility] Comment on above: Performed By: #### U NILAM, UA #### [facility] [address] [place], [place] 4503783 Microbiology Lab Analyst: Amna Clements MD Crystals LM Nom (Urine sed) NOT REPORTED Normal NONE [facility] Comment on above: Performed By: #### U NILAM, UA #### [facility] [address] [place], [place] [id number] Microbiology Lab Analyst: Amna Clements MD Epithelial, Renal NOT REPORTED Normal 0 [facility] Comment on above: Performed By: #### U NILAM, UA #### [facility] [address] [place], [place] [id number] Microbiology Lab Analyst: Amna Clements MD Mucus Strands NOT REPORTED Normal NONE [facility] Comment on above: Performed By: #### U NILAM, UA #### [facility] [address] [place], [place] [id number] Microbiology Lab Analyst: Amna Clements MD Other Observations NOT REPORTED Normal NREQ [facility] Comment on above: Performed By: #### U NILAM, UA #### [facility] [address] [place], [place] [id number] Microbiology Lab Analyst: Amna Clements MD Trichomonas NOT REPORTED Normal NONE [facility] Comment on above: Performed By: #### U NILAM, UA #### [facility] [address] [place], [place] [id number] Microbiology Lab Analyst: Amna Clements MD Yeast NOT REPORTED Normal NONE [facility] Comment on above: Performed By: #### U NILAM, UA #### [facility] [address] [place] [address] Microbiology Lab Analyst: Amna Clements MD ABO, External ResultOrdered By: Historical Provider on 02-17-2021 ABO, External Result AB [facility] Work Phone: Comment on above: William Joel RN/confirmed with Igor Kinsey RN HIV, External ResultOrdered By: Historical Provider on 02-17-2021 HIV, External Result Non-Reactive [facility] Phone: Comment on above: William Joel RN/confirmed with Igor Kinsey RN Hepatitis B, External Result Ordered By: Historical Provider on 02-17-2021 Hep B, External Result Negative [facility] Phone: Comment on above: William Joel RN/confirmed with Igor Kinsey RN Hepatitis C Antibody, Certified Surgical Technologist al ResultOrdered By: Historical Provider on 02-17-2021 Hepatitis C Antibody, External Result Negative [email or web address] Phone: Comment on above: William Joel RN/confirmed with Igor Kinsey RN No Panel InformationOrdered By: Historical Provider on 02-17-2021 [email or web address] Phone: RPR, External LabOrdered By: Historical Provider on 02-17-2021 RPR, External Result Non-Reactive [facility] Phone: Comment on above: William Joel RN/confirmed with Igor Kinsey RN Rh Factor, External ResultOr dered By: Historical Provider on 02-17-2021 Rh Factor, External Result Positive [email or web address] Phone: Comment on above: William Joel RN/confirmed with Igor Kinsey RN Rubella Titer, External Resu ltOrdered By: Historical Provider on 02-17-2021 Rubella Titer, External Result immune [email or web address] Phone: Comment on above: William Joel RN/confirmed with Igor Kinsey RN Vital Signs Date Time Vital Sign Value Performing Clinician Faci raul 06-16-2021 23:58-0400 Diastolic blood pressure 62 mm[Hg] Richar Obrien APRN - CNM Work Phone: [email or web address] Phone: 06-16-2021 23:58-0400 Heart rate 91 /min Richar Obrien APRN - CNM Work Phone: [email or web address] Phone: 06-16-2021 23:58-0400 Respiratory rate 16 /min Richar Obrien EMERGENCY PLANNER - CNM Work Phone: [employer] Work Phone: 06-16-2021 23:58-0400 Systolic blood pressure 107 mm[Hg] Richar Obrien EMERGENCY PLANNER - CNM Work Phone: [employer] Work Phone: 06-16-2021 20:33-0400 Body temperature 97.7 [degF] Richar Obrien EMERGENCY PLANNER - CNM Work Phone: [employer] Work Phone: 05-24-2021 23:40-0400 Body temperature 97.9 [degF] Rema Pool EMERGENCY PLANNER - CNM Work Phone: [employer] Work Phone: 05-24-2021 23:40-0400 Respiratory rate 20 /min Rema Pool EMERGENCY PLANNER - CNM Work Phone: [employer] Work Phone: 05-24-2021 23:32-0400 Diastolic blood pressure 70 mm[Hg] Rema Pool EMERGENCY PLANNER - CNM Work Phone: [employer] Work Phone: 05-24-2021 23:32-0400 Heart rate 109 /min Rema Pool EMERGENCY PLANNER - CNM Work Phone: [employer] Work Phone: 05-24-2021 23:32-0400 Systolic blood pressure 120 mm[Hg] Rema Pool EMERGENCY PLANNER - CNM Work Phone: [employer] Work Phone: 05-18-2021 08:59-0400 Diastolic blood pressure 55 mm[Hg] Richar Obrien EMERGENCY PLANNER - CNM Work Phone: [employer] Work Phone: 05-18-2021 08:59-0400 Heart rate 100 /min Richar Obrien APRN - [employer] Work Phone: [employer] Work Phone: 05-18-2021 08:59-0400 Systolic blood pressure 102 mm[Hg] Richar Obrien APRN - [facility] Work Phone: [employer] Work Phone: 05-18-2021 06:45-0400 Body height 154.9 cm Richar Obrien APRN - [facility] Work Phone: [employer] Work Phone: 05-18-2021 06:45-0400 Body mass index (BMI) [Ratio] 29.29 kg/m2 Richar Gonzalez [facility] Work Phone: [employer] Work Phone: 05-18-2021 06:45-0400 Body weight 70.31 kg Richar Gonzalez CNM Work Phone: [employer] Work Phone: 05-18-2021 06:41-0400 Body temperature 98.4 [degF] Richar Gonzalez CNYinka Work Phone: [employer] Work Phone: 05-18-2021 06:41-0400 Respiratory rate 20 /min Richar Gonzalez CNM Work Phone: [employer] Work Phone: 04-14-2021 03:30-0400 Diastolic blood pressure 65 mm[Hg] Cisco Andes DO Work Phone: [employer] Work Phone: 04-14-2021 03:30-0400 SaO2% (BldA) [Mass fraction] 100 % Cisco Andes DO Work Phone: [employer] Work Phone: 04-14-2021 03:30-0400 Systolic blood pressure 107 mm[Hg] Cisco Andes DO Work Phone: [employer] Work Phone: 04-14-2021 01:57-0400 Heart rate 108 /min Cisco Andes DO Work Phone: [employer] Work Phone: 04-14-2021 01:35-0400 Respiratory rate 16 /min Cisco Andes DO Work Phone: [employer] Work Phone: 04-14-2021 01:33-0400 Body temperature 97.7 [degF] Cisco Andes DO Work Phone: [employer] Work Phone: 03-23-2021 21:13-0400 Body temperature 97.59 [degF] Lidia Núñez MD Work Phone: [employer] Work Phone: 03-23-2021 21:13-0400 Diastolic blood pressure 70 mm[Hg] Lidia Núñez MD Work Phone: [employer] Work Phone: 03-23-2021 21:13-0400 Heart rate 98 /min Lidia Núñez MD Work Phone: [employer] Work Phone: 03-23-2021 21:13-0400 Respiratory rate 16 /min Lidia Núñez MD Work Phone: [employer] Work Phone: 03-23-2021 21:13-0400 SaO2% (BldA) [Mass fraction] 98 % Lidia Núñez MD Work Phone: [employer] Work Phone: 03-23-2021 21:13-0400 Systolic blood pressure 119 mm[Hg] Lidia Núñez MD Work Phone: [email or web address] Phone: 02-28-2021 12:28-0400 Body Temperature 97.81 [degF] Meche Blood [email or web address] Phone: 02-28-2021 12:28-0400 BP Diastolic 72 mm[Hg] [facility] [employer] Phone: 02-28-2021 12:28-0400 BP Systolic 124 mm[Hg] [facility] [employer] Phone: 02-28-2021 12:28-0400 Pulse (Heart Rate) 97 /min [facility] [employer] Phone: 02-28-2021 12:28-0400 Pulse Oximetry 100 % [facility] [employer] Phone: 02-28-2021 12:28-0400 Respiratory Rate 15 /min [facility] [employer] Phone: Encounters Encounter Date Encounter Type Care Provider Facility Start: 05-06-2024 End: 05-06-2024 ambulatory GEO RIGO Not Available Start: 03-20-2024 End: 03-20-2024 ambulatory GEO RIGO Not Available Start: 01-21-2024 End: 01-21-2024 ambulatory GEO RIGO Not Available Start: 01-15-2024 End: 01-15-2024 ambulatory MIGUEL CARBONE Not Available Start: 12-13-2023 [...] End: 04-16-[address] NONE LISTED REQUEST Facility:[facility] Start: 04-16-2023 End: 04-17-[address] NONE LISTED REQUEST Facility:[facility] Start: 04-13-2023 End: 04-13-[address] KALPANA TAPIA . Facility:[facility] Start: 04-06-2023 End: 04-07-[address] GEO SIERRA . Facility:[facility] Start: 01-10-[address] NONE LISTED REQUEST Facility:[facility] Start: 10-26-[address] NONE LISTED REQUEST Facility:[facility] Start: 10-13-2022 End: 10-13-[address] AMNA VALLADARES Facility:[facility] Start: 10-09-2022 End: 10-09-[address] DOCTOR BUCHANAN Facility:[facility] Start: 09-14-2022 End: 09-14-[address] MECHE HOLLOWAY . Facility:[facility] Start: 07-07-2022 End: 07-08-[address] DOCTOR BUCHANAN Facility:[facility] Start: 07-04-2022 End: 07-04-[address] DOCTOR BUCHANAN Facility:[facility] Start: 07-04-2022 End: 07-05-[address] DOCTOR BUCHANAN Facility:[facility] Start: 06-16-2021 End: 06-17-2021 [facility] [place] [facility] Start: 06-16-2021 End: 06-17-2021 Subsequent hospital visit by physician Richar Obrien APRN - [facility]inka Work Phone: [facility] Start: 05-25-2021 End: 05-25-2021 ambulatory [facility] [place] [facility] Start: 05-24-2021 End: 05-25-2021 Subsequent hospital visit by physician Rema Tapia EMERGENCY PLANNER - CNM Work Phone: [facility] Start: 05-18-2021 End: 05-18-2021 ambulatory [facility] [place] [facility] Start: 05-18-2021 End: 05-18-2021 Subsequent hospital visit by physician Richar Obrien EMERGENCY PLANNER - CNM Work Phone: [facility] Start: 04-14-2021 End: 04-14-2021 Emergency department patient visit CISCO LOPEZ [facility] Start: 04-14-2021 End: 04-14-2021 Emergency department patient visit Cisco Lopez DO Work Phone: [facility] ED Comment on above: Nausea and vomiting during (Primary Dx) Start: 03-23-2021 End: 03-24-2021 Emergency department patient visit LIDIA NÚÑEZ [facility] Start: 03-23-2021 End: 03-23-2021 Emergency department patient visit Lidia Núñez MD Work Phone: [facility] ED Comment on above: Leg swelling (Primar y Dx) Start: 03-10-2021 End: 03-10-2021 Emergency department patient visit ALIDA R ALCALA [facility] Start: 02-28-2021 End: 02-28-2021 Emergency department patient visit MECHE BLOOD [facility] Start: 02-28-2021 End: 02-28-2021 Emergency department patient visit Meche Blood Work Phone: [facility] ED Comment on above: Abdominal pain, unsp ecified abdominal location (Primary Dx); Urinary tract infection without hematuria, site unspecified; Intrauterine Procedures Date Procedure Procedure Detail Performing Clinician Start: 05-18-2021 Urinalysis microscop ic only Richar Obrien EMERGENCY PLANNER - CNM Work Phone: Start: 05-18-2021 Urnls dip stick/tabl et rgnt auto w/o microscopy Richar Obrien EMERGENCY PLANNER - CNM Work Phone: Start: 04-14-2021 Assay of lipase Cisco Andes DO Work Phone: Start: 04-14-2021 BASIC METABOLIC PANE L W/ REFLEX TO MG FOR LOW K Cisoc Andes DO Work Phone: Start: 04-14-2021 Hepatic function panel Cisco Andes DO Work Phone: Start: 04-14-2021 Urinalysis microscop ic only Cisco Andes DO Work Phone: Start: 04-14-2021 Urnls dip stick/tabl et rgnt auto w/o microscopy Cisco Lopez DO Work Phone: Start: 03-23-2021 Fibrin dgradj produc ts d-dimer quantitative Lidia Núñez MD Work Phone: Start: 03-01-2021 C. TRACHOMATIS, EXTE RNAL RESULT Historical Provider Start: 03-01-2021 N. GONORRHOEAE, EXTE RNAL RESULT Historical Provider Start: 02-28-2021 Dup-scan artl cosmo abdl/pel/scrot&/rpr orgn lmt [facility] Work Phone: Start: 02-28-2021 Us uterus 1 4 wk transabdl 11/26 gestat [facility] Blood Work Phone: Start: 02-28-2021 Urinalysis microscop ic only [facility] Work Phone: Start: 02-28-2021 Urnls dip stick/tabl et rgnt auto w/o microscopy [facility] Work Phone: Start: 02-17-2021 ABO, EXTERNAL RESULT Hi rosaura Provider Start: 02-17-2021 HEPATITIS B, EXTERNA L RESULT Historical Provider Start: 02-17-2021 HEPATITIS C ANTIBODY , EXTERNAL RESULT Historical Provider Start: 02-17-2021 HIV, EXTERNAL RESULT Hi rosaura Provider Start: 02-17-2021 RH FACTOR, EXTERNAL RESULT Historical Provider Start: 02-17-2021 RPR, EXTERNAL RESULT Hi delioical Provider Start: 02-17-2021 RUBELLA TITER, EXTER NAL RESULT Historical Provider Plan of Treatment Date Care Activity Detail Author Start: 05-16-2023 DTaP/Tdap/Td vaccine (2 - Td or Tdap) DTaP/Tdap/Td vaccine (2 - Td or Tdap) [employer] Work Phone: Start: 05-16-2023 DTaP/Tdap/Td vaccine (2 - Td) DTaP/Tdap/Td vaccine (2 - Td) [email or web address] Phone: Start: 07-27-2021 [facility] Phone: Start: 03-23-2021 End: 03-23-2022 VL DUP LOWER EXTREMITY VENOUS BILATERAL VL DUP LOWER EXTREMITY VENOUS BILATERAL Imaging Routine Leg swelling Expected: 03/23/2021, Expires: 03/23/2022 [email or web address] Phone: Comment on above: Expected: 03/23/2021 , Expires: 03/23/2022 Start: 2015 Screening for malign ant neoplasm of cervix Cervical cancer screen [email or web address] Phone: Start: 2010 COVID-19 Vaccine (1) COVID-19 Vaccin e (1) [email or web address] Phone: Start: 2009 HIV screening HIV screen [employer] [facility] Work Phone: Start: 2006 COVID-19 Vaccine (1) COVID-19 Vaccin e (1) [email or web address] Phone: Start: 1995 Varicella vaccine (1 of 2 - 2-dose childhood series) Varicella vaccine (1 of 2 - 2-dose childhood series) [email or web address] Phone: Start: 1994 Hepatitis C screening Hepatitis C sc [facility] [email or web address] Phone: End: 05-18-2021 Bacteria identified in Urine by Culture Urine culture Microbiology Routine One Time for 1 Occurrences starting 05/18/2021 until 05/18/2021 [email or web address] Phone: Comment on above: One Time for 1 Occur rences starting 05/18/2021 until 05/18/2021 End: 02-28-2021 CBC Auto Differential CBC Auto Differential Lab STAT One Time for 1 Occurrences starting 02/28/2021 until 02/28/2021 [email or web address] Phone: Comment on above: One Time for 1 Occur rences starting 02/28/2021 until 02/28/2021 End: 02-28-2021 Comprehensive Metabolic Panel w/ Reflex to MG Comprehensive Metabolic Panel w/ Reflex to MG Lab STAT One Time for 1 Occurrences starting 02/28/2021 until 02/28/2021 [email or web address] Phone: Comment on above: One Time for 1 Occur rences starting 02/28/2021 until 02/28/2021 End: 02-28-2021 Culture, Urine Culture, Urine Microbiology Routine One Time for 1 Occurrences starting 02/28/2021 until 02/28/2021 [email or web address] Phone: Comment on above: One Time for 1 Occur rences starting 02/28/2021 until 02/28/2021 Nonrebreather mask oxygen [employer] Phone: Comment on above: As directed - RT ([place] N) until discontinued starting 05/18/2021 As directed - RT ([place] N) until discontinued starting 05/24/2021 As directed - RT ([place] N) until discontinued starting 06/16/2021 End: 05-18-2021 SVE SVE Point of Care Testing Routine One Time for 1 Occurrences starting 05/18/2021 until 05/18/2021 [email or web address] Phone: Comment on above: One Time for 1 Occur rences starting 05/18/2021 until 05/18/2021 End: 05-24-2021 SVE SVE Point of Care Testing Routine One Time for 1 Occurrences starting 05/24/2021 until 05/24/2021 [email or web address] Phone: Comment on above: One Time for 1 Occur rences starting 05/24/2021 until 05/24/2021 End: 06-16-2021 SVE SVE Point of Care Testing Routine One Time for 1 Occurrences starting 06/16/2021 until 06/16/2021 [email or web address] Phone: Comment on above: One Time for 1 Occur rences starting 06/16/2021 until 06/16/2021 Payers Date Payer Category Payer Unknown [id number] 2.16.8 [id number] 1994 Unknown [id number] 2.16.8 40.1.075922.3.579.2.173 1994 Unknown [id number] 2.16.8 40.1.054676.3.579.2.173 1994 Unknown [id number] 2.16.8 40.1.243513.3.579.2.173 1994 Unknown [id number] 2.16.8 40.1.385926.3.579.2.173 1994 Unknown [id number] 2.16.8 40.1.593409.3.579.2.173 1994 Unknown [id number] 2.16.8 40.1.451394.3.579.2.173 1994 Unknown [id number] 2.16.84 0.1.575940.3.579.2.593 1994 Unknown [id number] 2.16.84 0.1.751934.3.579.2.593 1994 Unknown [id number] 2.16.84 0.1.258877.3.579.2.593 1994 Unknown [id number] 2.16.84 0.1.012452.3.579.2.593 1994 Unknown [id number] 2.16.84 0.1.734582.3.579.2.593 1994 Unknown [id number] 2.16.84 0.1.109505.3.579.2.593 1994 Unknown [id number] 2.16.84 0.1.311331.3.579.2.593 1994 Unknown [id number] 2.16.84 0.1.841354.3.579.2.593 1994 Unknown [id number] 2.16.84 0.1.534990.3.579.2.593 1994 Unknown [id number] 2.16.84 0.1.683278.3.579.2.593 1994 Unknown [id number] 2.16.84 0.1.461714.3.579.2.593 1994 Unknown [id number] 2.16.84 0.1.899807.3.579.2.593 1994 Unknown [id number] 2.16.84 0.1.544441.3.579.2.1259 1994 Unknown [id number] 2.16.84 0.1.131621.3.579.2.1259 1994 Unknown [id number] 2.16.84 0.1.093703.3.579.2.9 1994 Unknown [id number] 2.16.84 0.1.898811.3.579.2.9 1994 Unknown [id number] 2.16.84 0.1.775852.3.579.2.1259 1994 Unknown [id number] 2.16.840 .1.567247.3.579.2.9 1994 Unknown [id number] 2.16.840 .1.836725.3.579.2.1259 1994 Unknown [id number] 2.16.840 .1.346620.3.579.2.9 1994 Unknown [id number] 2.16.840 .1.720619.3.579.2.9 1994 Unknown [id number] 2.16.840. 1.485105.3.579.2.1259 1959 Self-pay [id number] 1959 Unknown [id number] 1. 2.840.511718.1.13.239.2.7.3.423628.315 Social History Date Type Detail Facility Start: 02-28-2021 End: 06-16-2021 Tobacco smoking status [facility] Never smoker [email or web address] Phone: Start: 02-28-2021 End: 06-16-2021 Tobacco use and exposure Never used [email or web address] Phone: Start: 1995 Sex Assigned At Not on file [facility] Phone: Exposure to SARS-CoV -2 (event) Not sure [facility] Phone: Start: 12-07-2020 [employer] [facility] Work Phone: Start: 05-18-2021 End: 06-16-2021 Alcohol intake Ex-drinker (finding) [employer] Work Phone: History of Present illness Narrative 06-17-2021 Allyson Joel RN - 06/17/2021 12:10 AM EDTAllyson Joel RN - 06/17/2021 12:02 AM EDAllyson Coelho RN - 06/16/2021 8:50 PM EDTAllyson Joel RN - 06/16/2021 8:45 PM EDT Note [...] and TOCO. Orders received to discharge home. [facility] notified via telephone requesting pt's blood type [...] placed on monitor. documented in this encounter [email or web address] Phone: History of Present illness Narrative 05-18-2021 Erinn Simms RN - 05/18/2021 10:06 AM EDT Note Date & Type Note Facility 05-18-2021 History of Present illness Narrative Obstetrical outpatient discharge instructions explained to pt, pt v.u. Pt instructed to bulk picker keflex and zofran prescriptions at [facility] in [place], pt v.u. documented in this encounter [email or web address] Phone: Hospital Discharge instructions 03-23-2021 Instructions Note Date & Type Note Facility 03-23-2021 Hospital Discharg e instructions Lidia Núñez MD - 03/23/2021 Please take all [...] ANY other concerns. documented in this encounter [email or web address] Phone: Evaluation note Note Date & Type Note Facility Evaluation note Diagnosis Leg swelling- Primary Swelling of limb documented in this encounter [email or web address] Phone: Evaluation note Note Date & Type Note Facility Evaluation note Diagnosis Nausea and vomiting during - Primary documented in this encounter [email or web address] Phone: Evaluation note Note Date & Type Note Facility Evaluation note Diagnosis Decreased movement affecting management of mother, antepartum documented in this encounter [email or web address] Phone: Hospital Discharge instructions Attachments Note Date & Type Note Facility Hospital Discharge instructions The following attachments cannot be sent through Care Everywhere.: Hyperemesis Gravidarum (Beninese)Nausea and Vomiting (Beninese)documented in this encounter [email or web address] Phone: Hospital Discharge instructions Instructions Note Date & Type Note Facility Hospital Discharge instructions Erinn Simms RN - 05/18/[address] Liss Tapia [facility] Dr. Alondra Obrien CN [address] [facility] [address] [facility] [address] [place] [address] [place] [address] Alondra Carrillo CN [address] [facility] [address] [phone] Therese Villatoro, MSN, EMERGENCY PLANNER, CNM [place] [id number] . [facility] [address] [address] Reynoso [address] [facility] [address] Richar Rob CN [address] [place] [address] [place] [address] Gabbie Junior CNM [address] [place] [address] [place] [address] [phone] ACTIVITY LIMITATIONS: ( x )Up and about [...] OF EMERGENCY CONTACT LABOR AND DELIVERY . 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 TODAY AND TAKE PRESCRIBED. KEFLEX TO BE TAKEN AT 2:30PM FOR FIRST DOSE. documented in this encounter [email or web address] Phone: Hospital Discharge instructions Instructions Note Date & Type Note Facility Hospital Discharge instructions Fiona Gilliland RN - 05/25/[address] Liss Tapia [facility] Dr. Alondra Obrien CN [address] [facility] [address] [facility] [address] [place] [address] Alondra CHENEY Rhoda Lorena CN [address] [facility] [address] [phone] Therese Villatoro, MSN, EMERGENCY PLANNER, CNM [facility] [address] [facility] [address] [address] Reynoso [address] [facility] [address] Richar Rob CN [address] [place] [address] [place] [address] Gabbie Junior CN [address] [place] [address] [place] [address] [phone] ACTIVITY LIMITATIONS: ( x )Up and about [...] AND DELIVERY . documented in this encounter [email or web address] Phone: Hospital Discharge instructions Instructions Note Date & Type Note Facility Hospital Discharge instructions Allyson Joel RN - 06/17/[address] Liss Tapia [facility] Dr. Alondra Obrien [facility] [address] [facility] [address] [facility] [address] [place] [address] Alondra Carrillo [facility] [address] [facility] [address] [phone] ACTIVITY LIMITATIONS: ( x )Up and about [...] AND DELIVERY . documented in this encounter [email or web address] Phone: Discharge Instructions * Instructions* Meche Blood MD - 02/28/2021 Take Keflex as directed until complete. Make sure to stay well-hydrated. Follow- up with your OB. Seek medical attention immediately for any worsening pain or any other acute concerns. * Attachments The following attachments cannot be sent through Care Everywhere. * Abdominal Pain (Beninese) * : PROM: General Info (Beninese) * UTI (Urinary Tract Infection): Female (Beninese) documented in this encounter Assessments Diagnosis Abdominal pain, unspecified abdominal location- Primary Urinary tract infection without hematuria, site unspecified Intrauterine Reason for Referral Status Reason Specialty Diagnoses / Procedures Referre d By Contact Referred To Contact [facility] Diagnoses Leg swelling Procedures VL DUP LOWER EXTREMITY VENOUS BILATERAL Lidia Núñez MD [address] [place] [address] Advance Directives No Advanced Directives Records FoundLatest [...] OB. Reason Comments Abdominal Pain epigastric, onset 23 30 after eating sandwich. Took tums with [...] minutes. 0218 (Given - Provid er: Lorena Vega RN) Scheduled Medication Order 05/16/2021 05/17/2021 05/18/2021 acetaminophen [...] Martha Tatum RN)0950 (Stopped - Provider: Erinn Simms RN) INFORMATION SOURCE (unrecogn ized section and content) DATE CREATED AUTHOR 06/19/2021 [facility] DATE CREATED AUTHOR AUTHOR'S ORGANIZ ATION 05/07/2023 [facility] DATE CREATED AUTHOR AUTHOR'S ORGANIZ ATION 05/07/2024 [facility] [...] BE BASED ON THE PRIMARY CLINICAL RECORDS. [facility] [employer] provides no warranty or guarantee of the accuracy or completeness of information in this document.
== END 2024-06-19 13:24 | disposition home or self-care (01) ==
LOC: NOMS 13:23
PROVIDERS: PCP Family Medicine; Visit Provider Obstetrics & Gynecology
DX: Z34.91 Encounter for supervision of normal pregnancy, unspecified, first trimester (principal); Z3A.09 9 weeks gestation of pregnancy; N92.6 Irregular menstruation, unspecified
CPT/HCPCS: 76817

== ENCOUNTER 2024-06-26 16:54 | Outpatient (OUT) | payer OTHER, SELFPAY ==
--- OUTSIDE RECORDS SUMMARY | 2024-06-26 17:12 | XMS_ITS | CCD ---
Author Organization [facility] Care Team Providers Care Telephone Answering Service Operator Name Role Phone Unavailable Primary Care Provider [...] Unavailable RIGO ., DR GUARDADO Attending Unavailable [place], DR AMNA Ames Consulting Unavailable RIGO ., [...] Admitting Unavailable MARIO ., ARSH Attending Unavailable [facility], DR ALLRED Primary Care Unavailable MARIO ., [...] Latex (5 sources) Latex Substance Allergy [address] [facility] (1 source) Latex Propensity to adverse reactions to drug 1 [facility] Work Phone: (1 source) Latex Drug allergy (disorder) [facility] Medications Current Medications Medication Drug Class(es) [...] on 04-18-2023 HBsAg Screen Negative Normal Negative [facility] Comment on above: Performed By: #### H BSANS #### [facility] [address] [place] [address] Dr. Josh Jacinto HEPATITIS C VIRUS AB W/ REFL EX QUANTon 04-18-2023 HCV AB Non-Reactive Normal Non Reactive [facility] Comment on above: Performed By: #### H CVPCRR #### [facility] [address] [place] [address] Dr. Josh Jacinto HIV 1 AND 2 WITH REFLEXon HIV Screen 4th Generation wRfx Non-Reactive Normal Non Reactive [facility] Comment on above: Result Comment: HIV Negative HIV-1/HIV-2 antibodies and HIV-1 p24 antigen were NOT detected. There is no laboratory evidence of HIV infection. Performed By: #### B OX #### [facility] [address] [place] [address] Dr. Josh Jacinto RPR QUANTon 04-18-2023 Rapid Plasma Reagin, Quant Non-Reactive Normal NonRea<1:1 [facility] Comment on above: Result Comment: Plea se Note: This test does not meet current guidelines for screening and diagnosis of syphilis. This test is intended for following treatment response in patients being treated for syphilis infection. To screen for syphilis infection, a reflex cascade that includes both RPR and a treponema-specific assay should be utilized, such as Treponema pallidum (Syphilis) Screening [place] (290507) or Rapid Plasma Reagin (RPR) Test With Reflex to Quantitative RPR and Confirmatory Treponema pallidum Antibodies (191911). Performed By: #### B OX #### [facility] [address] [place] [address] Dr. Josh Jacinto RUBELLA AB IGGon 04-18-2023 Rubella Antibodies, IgG 1.84 index Normal Immune >0.99 [facility] Comment on above: Result Comment: Non- immune <0.90 Equivocal 0.90 - 0.99 Immune >0.99 Performed By: #### H CGSUB #### [facility] [address] [place] [address] Dr. Josh Jacinto BOX TEST SENT OUTon 04-16-20 23 SENT TO REF LAB 04/17/2023 Normal [facility] Comment on above: Performed By: #### B OX #### [facility] [address] [place] [address] Dr. Josh Jacinto CBC AUTO DIFFon 04-16-2023 BASO # 0.0 103/ul Normal 0.0-0.1 [facility] Comment on above: Performed By: #### B OX #### [facility] [address] [address] [address] Josh Jacinto Basophils/100 WBC (Bld) 0.2 % Normal 0.2-2.0 [facility] Comment on above: Performed By: #### B OX #### [facility] [address] [address] [address] Josh Jacinto EO # 0.1 103/ul Normal 0.0-0.7 [facility] Comment on above: Performed By: #### B OX #### [facility] [address] [place] [address] Dr. Jsoh Jacinto Eosinophils/100 WBC (Bld) 0.6 % Critically low 0.9-7.0 [facility] Comment on above: Performed By: #### B OX #### [facility] [address] [place] [address] Dr. Josh Jacinto Erythrocyte distribution width (RBC) [Ratio] 13.4 % Normal 11.0-15.0 [facility] Comment on above: Performed By: #### B OX #### [facility] [address] [place] [address] Dr. Josh Jacinto Hematocrit (Bld) [Volume fraction] 36.9 % Normal 36.0-48.0 [facility] Comment on above: Performed By: #### B OX #### [facility] [address] [place] [address] Dr. Josh Jacinto Hemoglobin (Bld) [Mass/Vol] 12.4 g/dL Normal 12.0-16.0 [facility] Comment on above: Performed By: #### B OX #### [facility] [address] [place] [address] Dr. Josh Jacinto IG # 0.02 10e3/ul Normal 0.00-0.03 [facility] Comment on above: Performed By: #### B OX #### [facility] [address] [place] [address] Dr. Josh Jacinto IG % 0.2 % Normal 0.0-0.5 [facility] Comment on above: Performed By: #### B OX #### [facility] [address] [place] [address] Dr. Josh Jacinto LYMPH # 2.3 103/ul Normal 1.2-3.8 [facility] Comment on above: Performed By: #### B OX #### [facility] [address] [place] [address] Dr. Josh Jacinto Lymphocytes/100 WBC (Bld) 19.4 % Critically low 20.5-60.0 [facility] Comment on above: Performed By: #### B OX #### [facility] [address] [place] [address] Dr. Josh Jacinto MANUAL DIFF REQ NO Normal [facility] Comment on above: Performed By: #### B OX #### [facility] [address] [place] [address] Dr. Josh Jacinto MCH (RBC) [Entitic mass] 29.6 pg Normal 26.7-34.0 [facility] Comment on above: Performed By: #### B OX #### [facility] [address] [place] [address] Dr. Josh Jacinto MCHC (RBC) [Mass/Vol] 33.6 g/dL Normal 29.9-35.2 [facility] Comment on above: Performed By: #### B OX #### [facility] [address] [place] [address] Dr. Josh Jacinto MCV (RBC) [Entitic vol] 88.1 fL Normal 81.0-99.0 [facility] Comment on above: Performed By: #### B OX #### [facility] [address] [place] [address] Dr. Josh Jacinto MONO # 0.6 103/ul Normal 0.3-0.8 [facility] Comment on above: Performed By: #### B OX #### [facility] [address] [place] [address] Dr. Josh Jacinto Monocytes/100 WBC (Bld) 5.1 % Normal 1.7-12.0 [facility] Comment on above: Performed By: #### B OX #### [facility] [address] [place] [address] Dr. Josh Jacinto NEUT # 9.0 103/ul Critically high 1.4-6.5 [facility] Comment on above: Performed By: #### B OX #### [facility] [address] [place] [address] Dr. Josh Jacinto Neutrophils/100 WBC (Bld) 74.5 % Normal 43.0-75.0 [facility] Comment on above: Performed By: #### B OX #### [facility] [address] [place] [address] Dr. Josh Jacinto Platelet mean volume (Bld) [Entitic vol] 10.1 fL Normal 9.5-13.5 [facility] Comment on above: Performed By: #### B OX #### [facility] [address] [place] [address] Dr. Josh Jacinto PLT 337 103/ul Normal 150-450 [facility] Comment on above: Performed By: #### B OX #### [facility] [address] [place] [address] Dr. Josh Jacinto RBC 4.19 106/ul Critically low 4.20-5.40 [facility] Comment on above: Performed By: #### B OX #### [facility] [address] [place] [address] Dr. Josh Jacinto WBC 12.0 103/ul Critically high 4.0-11.0 [facility] Comment on above: Performed By: #### B OX #### [facility] [address] [place] [address] Dr. Josh Jacinto CULTURE URINEon 04-16-2023 CULTURE URINE Culture Observations: NO GROWTH. Normal [facility] Comment on above: Performed By: #### H CGSUB #### [facility] [address] [place] [address] Dr. Josh Jacinto GLYCOHEMOGLOBIN A1Con 2022 ADA RECOMMENDATION SEE BELOW Normal [facility] Comment on above: Result Comment: ADA RECOMMENDED LIMIT 4.0 - 6.0 ADA THERAPEUTIC TARGET < 7.0 ACTION SUGGESTED > 7.0 Performed By: #### H CVPCRR #### [facility] [address] [address] [address] Josh Jacinto Glucose [Mass/Vol] 91 mg/dL Normal [facility] Comment on above: Performed By: #### H CVPCRR #### [facility] [address] [place] [address] Dr. Josh Jacinto HbA1c (Bld) [Mass fraction] 4.8 % Normal 4.5-6.2 [facility] Comment on above: Performed By: #### H CVPCRR #### [facility] [address] [place] [address] Dr. Josh Jacinto TSHon 04-16-2023 TSH 1.700 uIU/mL Normal 0.358-3.740 [facility] Comment on above: Performed By: #### H CGSUB #### [facility] [address] [place] [address] Dr. Josh Jacinto TYPE AND SCREENon 04-16-2023 TYPE AND SCREEN Negative Normal [facility] Comment on above: Performed By: #### H CGSUB #### [facility] [address] [place] [address] Dr. Josh Jacinto US PREG TVon 04-13-2023 US PREG TV EXAMINATION: US PREG TV HISTORY: Pain TECHNIQUE: Grayscale and color Doppler sonographic evaluation of the uterus and adnexa was performed utilizing a transvaginal approach only. COMPARISON: 04/06/2023 FINDINGS: Uterus: Size: Normal Orientation:Antevert ed Intrauterine Gestational Sac: Present Yolk Sac: Present Pole: Present. [place]-rump length measures 2.1 cm, 8 weeks 5 [...] ANANT ERIC Date: 2023-04-13 20:47 Normal [facility] US PREG TVon 04-06-2023 US PREG TV [...] ROXY TOBIAS Date: 2023-04-06 10:05 Normal [facility] CBC AUTO DIFFon 10-13-2022 BASO # 0.0 103/ul Normal 0.0-0.1 [facility] Comment on above: Performed By: #### H CVPCRR #### [facility] [address] [place] [address] Dr. Josh Jacinto Basophils/100 WBC (Bld) 0.4 % Normal 0.2-2.0 [facility] Comment on above: Performed By: #### H CVPCRR #### [facility] [address] [place] [address] Dr. Josh Jacinto EO # 0.1 103/ul Normal 0.0-0.7 [facility] Comment on above: Performed By: #### H CVPCRR #### [facility] [address] [place] [address] Dr. Josh Jacinto Eosinophils/100 WBC (Bld) 1.2 % Normal 0.9-7.0 [facility] Comment on above: Performed By: #### H CVPCRR #### [facility] [address] [place] [address] Dr. Josh Jacinto Erythrocyte distribution width (RBC) [Ratio] 12.7 % Normal 11.0-15.0 [facility] Comment on above: Performed By: #### H CVPCRR #### [facility] [address] [place] [address] Dr. Josh Jacinto Hematocrit (Bld) [Volume fraction] 39.3 % Normal 36.0-48.0 [facility] Comment on above: Performed By: #### H CVPCRR #### [facility] [address] [place] [address] Dr. Josh Jacinto Hemoglobin (Bld) [Mass/Vol] 13.1 g/dL Normal 12.0-16.0 [facility] Comment on above: Performed By: #### H CVPCRR #### [facility] [address] [place] [address] Dr. Josh Jacinto IG # 0.02 10e3/ul Normal 0.00-0.03 [facility] Comment on above: Performed By: #### H CVPCRR #### [facility] [address] [place] [address] Dr. Josh Jacinto IG % 0.3 % Normal 0.0-0.5 [facility] Comment on above: Performed By: #### H CVPCRR #### [facility] [address] [place] [address] Dr. Josh Jacinto LYMPH # 2.1 103/ul Normal 1.2-3.8 [facility] Comment on above: Performed By: #### H CVPCRR #### [facility] [address] [place] [address] Dr. Josh Jacinto Lymphocytes/100 WBC (Bld) 28.8 % Normal 20.5-60.0 [facility] Comment on above: Performed By: #### H CVPCRR #### [facility] [address] [place] [address] Dr. Josh Jacinto MANUAL DIFF REQ NO Normal [facility] Comment on above: Performed By: #### H CVPCRR #### [facility] [address] [place] [address] Dr. Josh Jacinto MCH (RBC) [Entitic mass] 28.9 pg Normal 26.7-34.0 [facility] Comment on above: Performed By: #### H CVPCRR #### [facility] [address] [place] [address] Dr. Josh Jacinto MCHC (RBC) [Mass/Vol] 33.3 g/dL Normal 29.9-35.2 [facility] Comment on above: Performed By: #### H CVPCRR #### [facility] [address] [place] [address] Dr. Josh Jacinto MCV (RBC) [Entitic vol] 86.6 fL Normal 81.0-99.0 [facility] Comment on above: Performed By: #### H CVPCRR #### [facility] [address] [place] [address] Dr. Josh Jacinto MONO # 0.6 103/ul Normal 0.3-0.8 [facility] Comment on above: Performed By: #### H CVPCRR #### [facility] [address] [place] [address] Dr. Josh Jacinto Monocytes/100 WBC (Bld) 8.7 % Normal 1.7-12.0 [facility] Comment on above: Performed By: #### H CVPCRR #### [facility] [address] [place] [address] Dr. Josh Jacinto NEUT # 4.4 103/ul Normal 1.4-6.5 [facility] Comment on above: Performed By: #### H CVPCRR #### [facility] [address] [place] [address] Dr. Josh Jacinto Neutrophils/100 WBC (Bld) 60.6 % Normal 43.0-75.0 [facility] Comment on above: Performed By: #### H CVPCRR #### [facility] [address] [place] [address] Dr. Josh Jacinto Platelet mean volume (Bld) [Entitic vol] 10.0 fL Normal 9.5-13.5 [facility] Comment on above: Performed By: #### H CVPCRR #### [facility] [address] [place] [address] Dr. Josh Jacinto PLT 327 103/ul Normal 150-450 [facility] Comment on above: Performed By: #### H CVPCRR #### [facility] [address] [place] [address] Dr. Josh Jacinto RBC 4.54 106/ul Normal 4.20-5.40 [facility] Comment on above: Performed By: #### H CVPCRR #### [facility] [address] [place] [address] Dr. Josh Jacinto WBC 7.2 103/ul Normal 4.0-11.0 [facility] Comment on above: Performed By: #### H CVPCRR #### [facility] [address] [place] [address] Dr. Josh Jacinto ER URINE PROFILEon 2 Bilirubin Ql (U) Negative Normal NEGATIVE [facility] Comment on above: Performed By: #### H CVPCRR #### [facility] [address] [place] [address] Dr. Josh Jacinto Clarity (U) CLEAR Normal CLEAR [facility] Comment on above: Performed By: #### H CVPCRR #### [facility] [address] [place] [address] Dr. Josh Jacinto Color (U) LT. YELLOW Normal YELLOW [facility] Comment on above: Performed By: #### H CVPCRR #### [facility] [address] [place] [address] Dr. Josh Jacinto ERUEdd A micrscopic examination will be performed if indicated. Normal [facility] Comment on above: Performed By: #### H CVPCRR #### [facility] [address] [place] [address] Dr. Josh Jacinto Glucose Ql (U) Negative Normal NEGATIVE [facility] Comment on above: Performed By: #### H CVPCRR #### [facility] [address] [place] [address] Dr. Josh Jacinto Hemoglobin Ql (U) LARGE Abnormal NEGATIVE [facility] Comment on above: Performed By: #### H CVPCRR #### [facility] [address] [address] [address] Josh Jacinto Ketones Ql (U) Negative Normal NEGATIVE [facility] Comment on above: Performed By: #### H CVPCRR #### [facility] [address] [place] [address] Dr. Josh Jacinto LEUKOCYTES Negative Normal NEGATIVE [facility] Comment on above: Performed By: #### H CVPCRR #### [facility] [address] [place] [address] Dr. Josh Jacinto Nitrite Ql (U) Negative Normal NEGATIVE [facility] Comment on above: Performed By: #### H CVPCRR #### [facility] [address] [place] [address] Dr. Josh Jacinto pH (U) 6.5 [pH] Normal 5-9 [facility] Comment on above: Performed By: #### H CVPCRR #### [facility] [address] [address] [address] Josh Jacinto SPEC GRAVITY 1.010 Normal 1.005-<=1.025 [facility] Comment on above: Performed By: #### H CVPCRR #### [facility] [address] [place] [address] Dr. Josh Jacinto UA PROTEIN Negative Normal NEGATIVE/ TRACE [facility] Comment on above: Performed By: #### H CVPCRR #### [facility] [address] [place] [address] Dr. Josh Jacinto UR MICRO IND INDICATED Normal [facility] Comment on above: Performed By: #### H CVPCRR #### [facility] [address] [place] [address] Dr. Josh Jacinto Urobilinogen Qn (U) 0.2 {Pio'U}/dL Normal 0.2 - 1. 0 [facility] Comment on above: Performed By: #### H CVPCRR #### [facility] [address] [place] [address] Dr. Josh Jacinto PREG QUANT HCGon 10-13-2022 HCG QUANT 4 mIU/mL Normal [facility] Comment on above: Performed By: #### P REGQNT #### [facility] [address] [place] [address] Dr. Josh Jacinto HCG RANGE SEE BELOW Normal [facility] Comment on above: Result Comment: 5-50 0.2-1 WEEK 50-500 1-2 WEEKS 100-5,000 2-3 WEEKS 500-10,000 3-4 WEEKS 1,000-50,000 4-5 WEEKS 10,000-100,000 5-6 WEEKS 15,000-200,000 6-8 WEEKS 10,000-100,000 2-3 MONTHS Performed By: #### P REGQNT #### [facility] [address] [place] [address] Dr. Josh Jacinto PROTIMEon 10-13-2022 INR Coag (PPP) [Relative time] 1.29 {INR} Normal [facility] Comment on above: Performed By: #### H CVPCRR #### [facility] [address] [place] [address] Dr. Josh Jacinto INR GUIDELINES SEE BELOW Normal [facility] Comment on above: Result Comment: PASCUAL RED INR: 2.0 - 3.0 CONDITIONS NOT LISTED BELOW 2.5 - 3.5 FOR PROSTHETIC HEART VALVE REPLACEMENT 2.5 - 3.5 RECURRENT THROMBOSIS Performed By: #### H CVPCRR #### [facility] [address] [place] [address] Dr. Josh Jacinto PT Coag (PPP) [Time] 13.7 s Critically high 9.0-11.6 [facility] Comment on above: Performed By: #### H CVPCRR #### [facility] [address] [place] [address] Dr. Josh Jacinto PTTon 10-13-2022 aPTT Coag (Bld) [Time] 25.1 s Normal 22.3-36.2 [facility] Comment on above: Performed By: #### H CVPCRR #### [facility] [address] [place] [address] Dr. Josh Jacinto URINE MICROSCOPIC ONLYon BACTERIA NONE SEEN Normal NONE SEEN [facility] Comment on above: Performed By: #### H CVPCRR #### [facility] [address] [place] [address] Dr. Josh Jacinto Bacteria identified Cx Nom (U) NOT INDICATED Normal [facility] Comment on above: Performed By: #### H CVPCRR #### [facility] [address] [place] [address] Dr. Josh Jacinto CAST NONE SEEN Normal NONE SEEN [facility] Comment on above: Performed By: #### H CVPCRR #### [facility] [address] [place] [address] Dr. Josh Jacinto Crystals LM Nom (Urine sed) NONE SEEN Normal NONE SEEN [facility] Comment on above: Performed By: #### H CVPCRR #### [facility] [address] [place] [address] Dr. Josh Jacinto Epithelial cells LM Ql (Urine sed) MODERATE Abnormal NONE SEEN /RARE [facility] Comment on above: Performed By: #### H CVPCRR #### [facility] [address] [place] [address] Dr. Josh Jacinto MUCOUS NONE SEEN Normal NONE SEEN [facility] Comment on above: Performed By: #### H CVPCRR #### [facility] [address] [place] [address] Dr. Josh Jacinto RBC 10-20 Abnormal 0-2 [facility] Comment on above: Performed By: #### H CVPCRR #### [facility] [address] [place] [address] Dr. Josh Jacinto WBC 0-2 Abnormal NONE SEEN [facility] Comment on above: Performed By: #### H CVPCRR #### [facility] [address] [place] [address] Dr. Josh Jacinto US PREG TVon 10-13-2022 [...] AMNA VALLADARES Date: 2022-10-13 08:40 Normal [facility] CBC AUTO DIFFon 10-09-2022 BASO # 0.0 103/ul Normal 0.0-0.1 [facility] Comment on above: Performed By: #### H CVPCRR #### [facility] [address] [place] [address] Dr. Josh Jacinto Basophils/100 WBC (Bld) 0.3 % Normal 0.2-2.0 [facility] Comment on above: Performed By: #### H CVPCRR #### [facility] [address] [place] [address] Dr. Josh Jacinto EO # 0.0 103/ul Normal 0.0-0.7 [facility] Comment on above: Performed By: #### H CVPCRR #### [facility] [address] [place] [address] Dr. Josh Jacinto Eosinophils/100 WBC (Bld) 0.4 % Critically low 0.9-7.0 [facility] Comment on above: Performed By: #### H CVPCRR #### [facility] [address] [place] [address] Dr. Josh Jacinto Erythrocyte distribution width (RBC) [Ratio] 12.7 % Normal 11.0-15.0 [facility] Comment on above: Performed By: #### H CVPCRR #### [facility] [address] [place] [address] Dr. Josh Jcainto Hematocrit (Bld) [Volume fraction] 39.0 % Normal 36.0-48.0 [facility] Comment on above: Performed By: #### H CVPCRR #### [facility] [address] [place] [address] Dr. Josh Jacinto Hemoglobin (Bld) [Mass/Vol] 13.1 g/dL Normal 12.0-16.0 [facility] Comment on above: Performed By: #### H CVPCRR #### [facility] [address] [place] [address] Dr. Josh Jacinto IG # 0.03 10e3/ul Normal 0.00-0.03 [facility] Comment on above: Performed By: #### H CVPCRR #### [facility] [address] [place] [address] Dr. Josh Jacinto IG % 0.3 % Normal 0.0-0.5 [facility] Comment on above: Performed By: #### H CVPCRR #### [facility] [address] [place] [address] Dr. Josh Jacinto LYMPH # 2.0 103/ul Normal 1.2-3.8 [facility] Comment on above: Performed By: #### H CVPCRR #### [facility] [address] [place] [address] Dr. Josh Jacinto Lymphocytes/100 WBC (Bld) 18.4 % Critically low 20.5-60.0 [facility] Comment on above: Performed By: #### H CVPCRR #### [facility] [address] [place] [address] Dr. Josh Jacinto MANUAL DIFF REQ NO Normal [facility] Comment on above: Performed By: #### H CVPCRR #### [facility] [address] [place] [address] Dr. Josh Jacinto MCH (RBC) [Entitic mass] 29.0 pg Normal 26.7-34.0 [facility] Comment on above: Performed By: #### H CVPCRR #### [facility] [address] [place] [address] Dr. Josh Jacinto MCHC (RBC) [Mass/Vol] 33.6 g/dL Normal 29.9-35.2 [facility] Comment on above: Performed By: #### H CVPCRR #### [facility] [address] [place] [address] Dr. Josh Jacinto MCV (RBC) [Entitic vol] 86.5 fL Normal 81.0-99.0 [facility] Comment on above: Performed By: #### H CVPCRR #### [facility] [address] [place] [address] Dr. Josh Jacinto MONO # 0.8 103/ul Normal 0.3-0.8 [facility] [place] Comment on above: Performed By: #### H CVPCRR #### [facility] [address] [place] [address] Dr. Josh Jacinto Monocytes/100 WBC (Bld) 7.1 % Normal 1.7-12.0 [facility] Comment on above: Performed By: #### H CVPCRR #### [facility] [address] [place] [address] Dr. Josh Jacinto NEUT # 8.1 103/ul Critically high 1.4-6.5 [facility] Comment on above: Performed By: #### H CVPCRR #### [facility] [address] [place] [address] Dr. Josh Jacinto Neutrophils/100 WBC (Bld) 73.5 % Normal 43.0-75.0 [facility] Comment on above: Performed By: #### H CVPCRR #### [facility] [address] [place] [address] Dr. Josh Jacinto Platelet mean volume (Bld) [Entitic vol] 10.4 fL Normal 9.5-13.5 [facility] Comment on above: Performed By: #### H CVPCRR #### [facility] [address] [place] [address] Dr. Josh Jacinto PLT 329 103/ul Normal 150-450 [facility] Comment on above: Performed By: #### H CVPCRR #### [facility] [address] [place] [address] Dr. Josh Jacinto RBC 4.51 106/ul Normal 4.20-5.40 [facility] Comment on above: Performed By: #### H CVPCRR #### [facility] [address] [place] [address] Dr. Josh Jacinto WBC 11.0 103/ul Normal 4.0-11.0 [facility] Comment on above: Performed By: #### H CVPCRR #### [facility] [address] [place] [address] Dr. Josh Jacinto CULTURE URINEon 10-09-2022 CULTURE URINE Culture Observations: NO GROWTH. Normal [facility] Comment on above: Performed By: #### H CGSUB #### [facility] [address] [place] [address] Dr. Josh Jacinto ER URINE PROFILEon Bilirubin Ql (U) Negative Normal NEGATIVE [facility] Comment on above: Performed By: #### H CVPCRR #### [facility] [address] [place] [address] Dr. Josh Jacinto Clarity (U) CLEAR Normal CLEAR [facility] Comment on above: Performed By: #### H CVPCRR #### [facility] [address] [place] [address] Dr. Josh Jacinto Color (U) LT. YELLOW Normal YELLOW [facility] Comment on above: Performed By: #### H CVPCRR #### [facility] [address] [place] [address] Dr. Josh LOWEEdd A micrscopic examination will be performed if indicated. Normal [facility] Comment on above: Performed By: #### H CVPCRR #### [facility] [address] [place] [address] Dr. Josh Jacinto Glucose Ql (U) Negative Normal NEGATIVE [facility] Comment on above: Performed By: #### H CVPCRR #### [facility] [address] [place] [address] Dr. Josh Jacinto Hemoglobin Ql (U) TRACE-LYSED Abnormal NEGATIVE [facility] Comment on above: Performed By: #### H CVPCRR #### [facility] [address] [place] [address] Dr. Josh Jacinto Ketones Ql (U) Negative Normal NEGATIVE [facility] Comment on above: Performed By: #### H CVPCRR #### [facility] [address] [place] [address] Dr. Josh Jacinto LEUKOCYTES SMALL Abnormal NEGATIVE [facility] Comment on above: Performed By: #### H CVPCRR #### [facility] [address] [place] [address] Dr. Josh Jacinto Nitrite Ql (U) Negative Normal NEGATIVE [facility] Comment on above: Performed By: #### H CVPCRR #### [facility] [address] [place] [address] Dr. Josh Jacinto pH (U) 6.0 [pH] Normal 5-9 [facility] Comment on above: Performed By: #### H CVPCRR #### [facility] [address] [place] [address] Dr. Josh Jacinto SPEC GRAVITY 1.015 Normal 1.005-<=1.025 [facility] Comment on above: Performed By: #### H CVPCRR #### [facility] [address] [place] [address] Dr. Josh Jacinto UA PROTEIN Negative Normal NEGATIVE/ TRACE [facility] Comment on above: Performed By: #### H CVPCRR #### [facility] [address] [place] [address] Dr. Josh Jacinto UR MICRO IND INDICATED Normal [facility] Comment on above: Performed By: #### H CVPCRR #### [facility] [address] [place] [address] Dr. Josh Jacinto Urobilinogen Qn (U) 0.2 {Pio'U}/dL Normal 0.2 - 1. 0 [facility] Comment on above: Performed By: #### H CVPCRR #### [facility] [address] [place] [address] Dr. Josh Jacinto LIPASEon 10-09-2022 Lipase [Catalytic activity/Vol] 128.0 U/L Normal 73.0-393.0 [facility] Comment on above: Performed By: #### C MP, LIPA, HSTROPN #### [facility] [address] [place] [address] Dr. Josh Jacinto MONOon 10-09-2022 Monocytes (Bld) [#/Vol] Negative Normal NEGATIVE T [facility] Comment on above: Performed By: #### B OX #### [facility] [address] [place] [address] Dr. Josh Jacinto PREG HCG QUALon 10-09-2022 , QUAL Positive Abnormal NEGATIVE [facility] Comment on above: Performed By: #### B OX #### [facility] [address] [place] [address] Dr. Josh Jacinto PROF 14(COMP METB)on 022 Albumin [Mass/Vol] 3.6 g/dL Normal 3.4-5.0 [facility] Comment on above: Performed By: #### C MP, LIPA, HSTROPN #### [facility] [address] [place] [address] Dr. Josh Jacinto Albumin/Globulin [Mass ratio] 0.9 {ratio} Normal [facility] Comment on above: Performed By: #### C MP, LIPA, HSTROPN #### [facility] [address] [place] [address] Dr. Josh Jacinto ALP [Catalytic activity/Vol] 94 U/L Normal 46-116 [facility] Comment on above: Performed By: #### C MP, LIPA, HSTROPN #### [facility] [address] [place] [address] Dr. Josh Jacinto ALT [Catalytic activity/Vol] 22 U/L Normal 14-59 [facility] Comment on above: Performed By: #### C MP, LIPA, HSTROPN #### [facility] [address] [place] [address] Dr. Josh Jacinto Anion gap [Moles/Vol] 10.9 mmol/L Normal [facility] Comment on above: Performed By: #### C MP, LIPA, HSTROPN #### [facility] [address] [place] [address] Dr. Josh Jacinto AST [Catalytic activity/Vol] 13 U/L Critically low 15-37 [facility] Comment on above: Performed By: #### C MP, LIPA, HSTROPN #### [facility] [address] [place] [address] Dr. Josh Jacinto Bilirubin [Mass/Vol] 0.1 mg/dL Critically low 0.2-1.0 [facility] Comment on above: Performed By: #### C MP, LIPA, HSTROPN #### [facility] [address] [place] [address] Dr. Josh Jacinto Calcium [Mass/Vol] 9.0 mg/dL Normal 8.5-10.1 [facility] Comment on above: Performed By: #### C MP, LIPA, HSTROPN #### [facility] [address] [place] [address] Dr. Josh Jacinto Chloride [Moles/Vol] 105 mmol/L Normal 98-107 [facility] Comment on above: Performed By: #### C MP, LIPA, HSTROPN #### [facility] [address] [place] [address] Dr. Josh Jacinto CO2 [Moles/Vol] 23.5 mmol/L Normal 21.0-32.0 [facility] Comment on above: Performed By: #### C MP, LIPA, HSTROPN #### [facility] [address] [place] [address] Dr. Josh Jacinto Creatinine [Mass/Vol] 0.68 mg/dL Normal 0.55-1.02 [facility] Comment on above: Performed By: #### C MP, LIPA, HSTROPN #### [facility] [address] [place] [address] Dr. Josh Jacinto EGFR-AF ITALIAN >60 Normal >=60 [facility] Comment on above: Performed By: #### C MP, LIPA, HSTROPN #### [facility] [address] [place] [address] Dr. Josh Jacinto EGFR-NON AF ITALIAN >60 Normal >=60 [facility] Comment on above: Performed By: #### C MP, LIPA, HSTROPN #### [facility] [address] [place] [address] Dr. Josh Jacinto Globulin (S) [Mass/Vol] 4.1 g/dL Normal T [facility] Comment on above: Performed By: #### C MP, LIPA, HSTROPN #### [facility] [address] [address] [address] Josh Jacinto Glucose [Mass/Vol] 98 mg/dL Normal 74-106 [facility] Comment on above: Performed By: #### C MP, LIPA, HSTROPN #### [facility] [address] [address] [address] Josh Jacinto Potassium [Moles/Vol] 3.4 mmol/L Critically low 3.5-5.1 [facility] Comment on above: Performed By: #### C MP, LIPA, HSTROPN #### [facility] [address] [place] [address] Dr. Josh Jacinto Protein [Mass/Vol] 7.7 g/dL Normal 6.4-8.2 [facility] Comment on above: Performed By: #### C MP, LIPA, HSTROPN #### [facility] [address] [address] [address] Josh Jacinto Sodium [Moles/Vol] 136 mmol/L Normal 136-145 [facility] Comment on above: Performed By: #### C MP, LIPA, HSTROPN #### [facility] [address] [place] [address] Dr. Josh Jacinto Urea nitrogen [Mass/Vol] 14.0 mg/dL Normal 7.0-18.0 [facility] Comment on above: Performed By: #### C MP, LIPA, HSTROPN #### [facility] [address] [address] [address] Josh Jacinto Urea nitrogen/Creatinine [Mass ratio] 20.6 mg/mg Normal [facility] Comment on above: Performed By: #### C MP, LIPA, HSTROPN #### [facility] [address] [address] [address] Josh Jacinto TROPONIN, HIGH SENSITIVITYon 10-09-2022 HSTROP <4.0 Normal 4.0-51.3 [facility] Comment on above: Result Comment: CUT- OFF POINTS HAVE BEEN ESTABLISHED BASED ON THE FOURTH UNIVERSAL DEFINITIONS OF MYOCARDIAL INFARCTION. THE UPPER REFERENCE LIMIT (URL) OF TROPONIN, DEFINED THE 99TH PERCENTILE OF cTnI DISTRIBUTION IN A REFERENCE POPULATION, HAS BEEN CONFIRMED THE DECISION THRESHOLD FOR SC DIAGNOSIS. Performed By: #### C MP, LIPA, HSTROPN #### [facility] [address] [place] [address] Dr. Josh Jacinto URINE MICROSCOPIC ONLYon BACTERIA TRACE Abnormal NONE SEEN [facility] Comment on above: Performed By: #### H CVPCRR #### [facility] [address] [place] [address] Dr. Josh Jacinto Bacteria identified Cx Nom (U) INDICATED Normal [facility] Comment on above: Performed By: #### H CVPCRR #### [facility] [address] [place] [address] Dr. Josh Jacinto CAST NONE SEEN Normal NONE SEEN [facility] Comment on above: Performed By: #### H CVPCRR #### [facility] [address] [place] [address] Dr. Josh Jacinto Crystals LM Nom (Urine sed) NONE SEEN Normal NONE SEEN [facility] Comment on above: Performed By: #### H CVPCRR #### [facility] [address] [place] [address] Dr. Josh Jacinto Epithelial cells LM Ql (Urine sed) MODERATE Abnormal NONE SEEN /RARE [facility] Comment on above: Performed By: #### H CVPCRR #### [facility] [address] [place] [address] Dr. Josh Jacinto MUCOUS NONE SEEN Normal NONE SEEN [facility] Comment on above: Performed By: #### H CVPCRR #### [facility] [address] [place] [address] Dr. Josh Jacinto RBC NONE SEEN Abnormal 0-2 [facility] Comment on above: Performed By: #### H CVPCRR #### [facility] [address] [place], [place] [id number] Dr. Josh Jacinto WBC 2-5 Abnormal NONE SEEN [facility] Comment on above: Performed By: #### H CVPCRR #### [facility] [address] [place] [address] Dr. Josh Jacinto ER URINE PROFILEon 2 Bilirubin Ql (U) Negative Normal NEGATIVE [facility] Comment on above: Performed By: #### P REGU, ERUR #### [facility] [address] [place] [address] Dr. Josh Jacinto Clarity (U) CLEAR Normal CLEAR [facility] Comment on above: Performed By: #### P REGU, ERUR #### [facility] [address] [place] [address] Dr. Josh Jacinto Color (U) LT. YELLOW Normal YELLOW [facility] Comment on above: Performed By: #### P REGU, ERUR #### [facility] [address] [place] [address] Dr. Josh Jacinto ERUAHD A micrscopic examination will be performed if indicated. Normal [facility] Comment on above: Performed By: #### P REGU, ERUR #### [facility] [address] [place] [address] Dr. Josh Jacinto Glucose Ql (U) Negative Normal NEGATIVE [facility] Comment on above: Performed By: #### P REGU, ERUR #### [facility] [address] [place] [address] Dr. Josh Jacinto Hemoglobin Ql (U) Negative Normal NEGATIVE [facility] Comment on above: Performed By: #### P REGU, ERUR #### [facility] [address] [place] [address] Dr. Josh Jacinto Ketones Ql (U) Negative Normal NEGATIVE [facility] Comment on above: Performed By: #### P REGU, ERUR #### [facility] [address] [place] [address] Dr. Josh Jacinto LEUKOCYTES Negative Normal NEGATIVE [facility] Comment on above: Performed By: #### P REGU, ERUR #### [facility] [address] [place] [address] Dr. Josh Jacinto Nitrite Ql (U) Negative Normal NEGATIVE [facility] Comment on above: Performed By: #### P REGU, ERUR #### [facility] [address] [place] [address] Dr. Josh Jacinto pH (U) 6.0 [pH] Normal 5-9 [facility] Comment on above: Performed By: #### P REGU, ERUR #### [facility] [address] [place] [address] Dr. Josh Jacinto SPEC GRAVITY 1.010 Normal 1.005-<=1.025 [facility] Comment on above: Performed By: #### P REGU, ERUR #### [facility] [address] [place] [address] Dr. Josh Jacinto UA PROTEIN Negative Normal NEGATIVE/ TRACE [facility] Comment on above: Performed By: #### P REGU, ERUR #### [facility] [address] [place] [address] Dr. Josh Jacinto UR MICRO IND NOT INDICATED Normal [facility] Comment on above: Performed By: #### P REGU, ERUR #### [facility] [address] [place] [address] Dr. Josh Jacinto Urobilinogen Qn (U) 0.2 {Poi'U}/dL Normal 0.2 - 1. 0 [facility] Comment on above: Performed By: #### P REGU, ERUR #### [facility] [address] [place] [address] Dr. Josh Jacinto URon 09-14-2022 , QUAL Negative Normal NEGATIVE [facility] Comment on above: Performed By: #### P REGU, ERUR #### [facility] [address] [place] [address] Dr. Josh Jacinto XR ABD FLAT UP_PA [...] by: JANICE KAUFMAN Date: 2022-09-14 02:39 Normal [facility] PAP ACOG PANEL 2: 20 to 28on 07-10-2022 . . Normal [facility] Comment on above: Performed By: #### H CGSUB #### [facility] [address] [address] [address] Josh Jacinto Age Gdln ACOG Testing - Normal [facility] Comment on above: Performed By: #### H CGSUB #### [facility] [address] [address] [address] Josh Jacinto DIAGNOSIS: Comment [facility] Comment on above: Result Comment: NEGA TIVE FOR INTRAEPITHELIAL LESION OR MALIGNANCY. Performed By: #### H CGSUB #### [facility] [address] [address] [address] Josh Jacinto Methodology: Comment Normal [facility] Comment on above: Result Comment: This liquid based ThinPrep(R) pap test was screened with the use of an image guided system. Performed By: #### H CGSUB #### [facility] [address] [address] [address] Josh Jacinto Note: Comment Normal [facility] Comment on above: Result Comment: The Pap smear is a screening test designed to aid in the detection of premalignant and malignant conditions of the uterine cervix. It is not a diagnostic procedure and should not be used as the sole means of detecting cervical cancer. Both false-positive and false-negative reports do occur. . Performed By: #### H CGSUB #### [facility] [address] [address] [address] Josh Jacinto Performed by: Comment Normal [facility] Comment on above: Result Comment: Aurora Salazar, Transit Planning Director (ASCP) Performed By: #### H CGSUB #### [facility] [address] [place] [address] Dr. Josh Jacinto Reflex Criteria: Comment Normal [facility] Comment on above: Result Comment: The HPV DNA reflex criteria were not met with this specimen result therefore, no HPV testing was performed. . Performed By: #### H CGSUB #### [facility] [address] [address] [address] Josh Jacinto Specimen adequacy: Comment Normal [facility] Comment on above: Result Comment: Sati sfactory for evaluation. Endocervical and/or squamous metaplastic cells (endocervical component) are present. Performed By: #### H CGSUB #### [facility] [address] [place] [address] Dr. Josh Jacinto HCG-BETA SUBUNIT QUANTon hCG,Beta Subunit,Qnt,Serum <1 Normal [facility] Comment on above: Result Comment: Fema le (Non-) 0 - 5 (Postmenopausal) 0 - 8 . Female () Weeks of Gestation 3 6 - 71 4 10 - 750 5 217 - 7138 6 158 - 57925 7 [phone] -[id number] 8 80936 -165711 9 80055 -[phone] 10 42709 -651568 12 36133 -[phone] 14 33006 - 92734 15 01657 - 58566 16 5516 - 03156 17 8827 - 51310 18 1705 - 11384 Liana ECLIA methodology Performed By: #### H CGSUB #### [facility] [address] [place] [address] Dr. Josh Jacinto US PELVIS AND TRANSVAGon [...] by: AMNA VALLADARES Date: 2022-07-05 16:12 Normal [facility] Cult,Urineon 05-19-2021 Cult,Urine Specimen Description .CLEAN CATCH URINE Special Requests NOT REPORTED Culture NO SIGNIFICANT GROWTH Report Status FINAL 05/19/2021 [facility] Comment on above: Performed By: #### S [facility] #### [employer] [address] [place] [address] Rural Carrier: Collin De La Fuente MD Microscopic UrinalysisOrdere d By: Richar Obrien on 05-18-2021 - [facility] [employer] Work Phone: Amorphous, UA NOT REPORTED None [facility] Work Phone: Bacteria, UA 2+ Abnormal None [facility] Work Phone: Casts UA NOT REPORTED /LPF [facility] Work Phone: Crystals, UA NOT REPORTED None /HPF [facility] Work Phone: Epithelial Cells UA 5 TO 10 [facility] Work Phone: Interpretation and review of laboratory results Abnormal [facility] Work Phone: Mucus, UA 1+ Abnormal None [facility] [employer] Phone: Other Observations UA NOT REPORTED NOT REQ. [facility] [employer] Work Phone: RBC, UA None [facility] Work Phone: Renal Epithelial, UA NOT REPORTED 0 /HPF [facility] [employer] Work Phone: Trichomonas, UA NOT REPORTED None [facility] Work Phone: WBC, UA 10 TO 20 [facility] [employer] Work Phone: Yeast, UA NOT REPORTED None [facility] [employer] Work Phone: [facility] Work Phone: UrinalysisOrdered By: Richar Obrien on 05-18-2021 Bilirubin Urine Negative NEGATIVE [facility] Work Phone: Color, UA YELLOW YELLOW [facility] Work Phone: Glucose, Ur Negative NEGATIVE [facility] Work Phone: Interpretation and review of laboratory results Abnormal [facility] Work Phone: Ketones Ql (U) Negative NEGATIVE [facility] Work Phone: Leukocyte esterase Test strip Ql (U) SMALL Abnormal NEGATIVE [facility] Work Phone: Nitrite, Urine Negative NEGATIVE [facility] Work Phone: pH, UA 6.0 [facility] [employer] Work Phone: Protein, UA Negative NEGATIVE [facility] Work Phone: Specific [place], UA >1.030 High [facility] [employer] Work Phone: Turbidity UA SLIGHTLY CLOUDY Abnormal CLEAR [facility] Work Phone: Urinalysis Comments NOT REPORTED [facility] [employer] Work Phone: Urine Hgb Negative NEGATIVE [facility] Work Phone: Urobilinogen, Urine Normal Normal [facility] Work Phone: [facility] Work Phone: Urinalysis, Routineon 2020 Bilirubin, SemiQt,Ur Negative Normal NEG [facility] Comment on above: Performed By: #### S [facility] #### [facility] [address] [place] [address] Rural Carrier: Collin De La Fuente MD Blood, Urine Negative Normal NEG [facility] Comment on above: Performed By: #### S [facility] #### [address] [address] Rural Carrier: Collin De La Fuente MD Clarity (U) SLIGHTLY CLOUDY Abnormal CLEAR [facility] Comment on above: Performed By: #### S [facility] #### [address] [address] Rural Carrier: Collin De La Fuente MD Color (U) YELLOW Normal [facility] Comment on above: Performed By: #### S [facility] #### [address] [address] Rural Carrier: Collin De La Fuente MD Glucose Ql (U) Negative Normal NEG [facility] in [facility] Comment on above: Performed By: #### S [facility] #### [address] [address] Rural Carrier: Coliln De La Fuente MD Ketones Ql (U) Negative Normal NEG [facility] Comment on above: Performed By: #### S [facility] #### [address] [address] Rural Carrier: Collin De La Fuente MD Leukocyte esterase Test strip Ql (U) SMALL Abnormal NEG [facility] Comment on above: Performed By: #### S [facility] #### [address] [address] Rural Carrier: Collin De La Fuente MD Nitrite,Ur Negative Normal NEG [facility] Comment on above: Performed By: #### S [facility] #### [address] [address] Rural Carrier: Collin De La Fuente MD PH,Ur 6.0 Normal 5.0-9.0 [facility] Comment on above: Performed By: #### S [facility] #### [address] [place] [address] Rural Carrier: Collin De La Fuente MD Protein Ql (U) Negative Normal NEG [facility] in [facility] Comment on above: Performed By: #### S [facility] #### [address] [address] Rural Carrier: Collin De La Fuente MD Spec. [place],Ur >1.030 High 1.010-1.020 [facility] Comment on above: Performed By: #### S [facility] #### [address] [address] Rural Carrier: Collin De La Fuente MD Urobilinogen,Ur Normal Normal NORM [facility] Comment on above: Performed By: #### S [facility] #### [address] [address] Rural Carrier: Collin De La Fuente MD Comment NOT REPORTED [facility] Comment on above: Performed By: #### S [facility] #### [address] [address] Rural Carrier: Collin De La Fuente MD Urinalysis,Microon 1 ----- Normal [facility] Comment on above: Performed By: #### S [facility] #### [address] [address] Rural Carrier: Collin De La Fuente MD Bacteria 2+ Abnormal NONE [facility] Comment on above: Performed By: #### S [facility] #### [address] [address] Rural Carrier: Collin De La Fuente MD Epithelial cells LM Ql (Urine sed) 5 TO 10 Normal 0-25 [facility] Comment on above: Performed By: #### S [facility] #### [address] [address] Rural Carrier: Collin De La Fuente MD Mucus Strands 1+ Abnormal NONE [facility] Comment on above: Performed By: #### S WCGP #### [facility] [place] [address] Rural Carrier: Collin De La Fuente MD Urine RBC's None Normal 0-2 [facility] Comment on above: Performed By: #### S WCGP #### [facility] [place] [address] Rural Carrier: Collin De La Fuente MD Urine WBC's 10 TO 20 Normal 0-5 [facility] Comment on above: Performed By: #### S WCGP #### [address] [address] Rural Carrier: Collin De La Fuente MD Amorphous sediment LM Ql (Urine sed) NOT REPORTED Normal NONE [facility] Comment on above: Performed By: #### S WCGP #### [address] [address] Rural Carrier: Collin De La Fuente MD Casts NOT REPORTED Normal [facility] Comment on above: Performed By: #### S WCGP #### [address] [address] Rural Carrier: Collin De La Feunte MD Crystals LM Nom (Urine sed) NOT REPORTED Normal NONE [facility] Comment on above: Performed By: #### S WCGP #### [address] [address] Rural Carrier: Collin De La Fuente MD Epithelial, Renal NOT REPORTED Normal 0 [facility] Comment on above: Performed By: #### S WCGP #### [facility] [address] [place] [address] Rural Carrier: Collin De La Fuente MD Other Observations NOT REPORTED Normal [facility] Comment on above: Performed By: #### S WCGP #### [facility] [address] [place] [phone] Rural Carrier: Collin De La Fuente MD Trichomonas NOT REPORTED Normal NONE [facility] Comment on above: Performed By: #### S WCGP #### [facility] [address] [place], [place] [phone] Rural Carrier: Collin De La Fuente MD Yeast NOT REPORTED Normal NONE [facility] Comment on above: Performed By: #### S WCGP #### [facility] [address] [place], [place] [phone] Rural Carrier: Collin De La Fuente MD Basic Metab w/rfx MGon 04-14 (cont.) Normal [facility] Comment on above: Result Comment: Aver age GFR for 20-29 years old: 116 mL/min/1.73sq m Chronic Kidney Disease: <60 mL/min/1.73sq m Kidney failure: <15 mL/min/1.73sq m eGFR calculated using average adult body mass. Additional eGFR calculator available at: http://www.Rewardpod/multiple_crcl_2012.htm Performed By: #### B MPX, LIP, LIVP, CDP #### [address] [place] [address] Rural Carrier: Amna Clements MD Anion gap [Moles/Vol] 12 mmol/L Normal - [facility] Comment on above: Performed By: #### B MPX, LIP, LIVP, CDP #### [address] [place] [address] Rural Carrier: Amna Clements MD BUN/CRE Ratio 19 Normal - [facility] Comment on above: Performed By: #### B MPX, LIP, LIVP, CDP #### [facility] [address] [place] [address] Rural Carrier: Amna Clements MD Calcium [Mass/Vol] 8.8 mg/dL Normal 8.6-10.4 [facility] Comment on above: Performed By: #### B MPX, LIP, LIVP, CDP #### [facility] [address] [place], [place] [phone] Rural Carrier: Amna Clements MD Chloride [Moles/Vol] 101 mmol/L Normal 98-107 [facility] Comment on above: Performed By: #### B MPX, LIP, LIVP, CDP #### [facility] [address] [place], [place] [phone] Rural Carrier: Amna Clements MD CO2 [Moles/Vol] 23 mmol/L Normal 20-31 [facility] Comment on above: Performed By: #### B MPX, LIP, LIVP, CDP #### [facility] [address] [place], [place] [phone] Rural Carrier: Amna Clements MD Creatinine [Mass/Vol] 0.47 mg/dL Low 0.50-0.90 [facility] Comment on above: Performed By: #### B MPX, LIP, LIVP, CDP #### [facility] [address] [place], [place] [phone] Rural Carrier: Amna Clements MD GFR, Amer >60 Normal >[address] [facility] Comment on above: Performed By: #### B MPX, LIP, LIVP, CDP #### [facility] [address] [place], [place] [phone] Rural Carrier: Amna Clements MD GFR,non Amer >60 Normal >60 [facility] Comment on above: Performed By: #### B MPX, LIP, LIVP, CDP #### [facility] [address] [place], [place] [phone] Rural Carrier: Amna Clements MD Glucose [Mass/Vol] 106 mg/dL High 70-99 [facility] Comment on above: Performed By: #### B MPX, LIP, LIVP, CDP #### [facility] [address] [place] [address] Rural Carrier: Amna Clements MD Potassium [Moles/Vol] 3.7 mmol/L Normal 3.7-5.3 [facility] Comment on above: Performed By: #### B MPX, LIP, LIVP, CDP #### [facility] [address] [place] [address] Rural Carrier: Amna Clements MD Sodium [Moles/Vol] 136 mmol/L Normal 135-144 [facility] Comment on above: Performed By: #### B MPX, LIP, LIVP, CDP #### [facility] [address] [place] [address] Rural Carrier: Amna Clements MD Staging: Normal [facility] Comment on above: Result Comment: Stag e 1: Some kidney damage normal GFR Stage 2: Mild kidney damage GFR 60-89 Stage 3: Moderate kidney damage GFR 30-59 Stage 4: Severe kidney damage GFR 15-29 Stage 5: Severe kidney damage GFR <15 ESRD - chronic treatment by dialysis or transplant Performed By: #### B MPX, LIP, LIVP, CDP #### [facility] [address] [place] [address] Rural Carrier: Amna Clements MD Urea nitrogen [Mass/Vol] 9 mg/dL Normal 6-20 [facility] Comment on above: Performed By: #### B MPX, LIP, LIVP, CDP #### [facility] [address] [place] [address] Rural Carrier: Amna Clements MD Basic Metabolic Panel w/ Ref ladi to MGOrdered By: Cisco Lopez on 04-14-2021 Anion gap [Moles/Vol] 12 mmol/L 9 - 17 mmol/L [facility] [employer] Phone: Calcium [Mass/Vol] 8.8 mg/dL 8.6 - 10. 4 mg/dL [facility] [employer] Phone: Chloride [Moles/Vol] 101 mmol/L 98 - 10 7 mmol/L [facility] Work Phone: CO2 [Moles/Vol] 23 mmol/L 20 - 31 mmol/L [facility] [employer] Phone: Creatinine [Mass/Vol] 0.47 mg/dL Low 0.50 - 0.90 mg/dL [facility] [employer] Work Phone: GFR >60 >60 mL/min [facility] [employer] Work Phone: GFR Non- >60 >60 mL/min [facility] [employer] Work Phone: Glucose [Mass/Vol] 106 mg/dL High 70 - 99 mg/dL [facility] [employer] Work Phone: Interpretation and review of laboratory results Abnormal [facility] [employer] Phone: Potassium [Moles/Vol] 3.7 mmol/L 3.7 - 5.3 mmol/L [facility] Work Phone: Sodium [Moles/Vol] 136 mmol/L 135 - 144 mmol/L [facility] [employer] Work Phone: Urea nitrogen (BldV) [Mass/Vol] 9 mg/dL 6 - 20 mg/dL [facility] [employer] Phone: Urea nitrogen/Creatinine (Bld) [Mass ratio] 19 [facility] [employer] Work Phone: CBC Auto DifferentialOrdered By: Cisco Lopez on 04-14-2021 Absolute Eos # 0.00 [facility] Work Phone: Absolute Immature Granulocyte 0.00 [facility] Work Phone: Absolute Lymph # 2.00 [facility] Work Phone: Absolute [place] # 1.78 High [facility] Work Phone: Basophils (Bld) [#/Vol] 0.00 10*3/uL [facility] [employer] Work Phone: Basophils/100 WBC (Bld) 0 % 0 - 2 % M [employer] Phone: Differential Type NOT REPORTED [employer] Phone: Eosinophils/100 WBC (Bld) 0 % Low 1 - 4 % [employer] Phone: Hematocrit (Bld) [Volume fraction] 38.4 % 36.3 - 47.1 % [employer] Phone: Hemoglobin.gastrointesti nal spec 1 Ql (Stl) 12.5 g/dL 11.9 - 15.1 g/dL [employer] Phone: Immature granulocytes/100 WBC (Bld) 0 % 0 [employer] Phone: Interpretation and review of laboratory results Abnormal [employer] Phone: Lymphocytes/100 WBC (Bld) 9 % Low 24 - 43 % [employer] Phone: MCH (RBC) [Entitic mass] 29.6 pg 25. 2 - 33.5 pg [employer] Phone: MCHC (RBC) [Mass/Vol] 32.6 g/dL 28.4 - 34.8 g/dL [employer] Phone: MCV (RBC) [Entitic vol] 91.0 fL 82.6 - 102.9 fL [employer] Phone: Monocytes/100 WBC (Bld) 8 % 3 - 12 % M [employer] Phone: Morphology Hay (Bld) [Interp] Normal [employer] Phone: NRBC Automated 0.0 0.0 per 100 WBC [employer] Phone: Platelet distribution width (Bld) [Ratio] 13.4 % 11.8 - 14.4 % [employer] Phone: Platelet Estimate NOT REPORTED [employer] Phone: Platelet mean volume (Bld) [Entitic vol] 10.2 fL 8.1 - 13.5 fL [employer] Work Phone: Platelets (Bld) [#/Vol] 321 10*3/uL [employer] Phone: RBC (Bld) [#/Vol] 4.22 10*6/uL 3.95 - 5.1 1 m/uL [employer] Work Phone: RBC (Bld) [#/Vol] NOT REPORTED [employer] Phone: Segmented neutrophils/100 WBC (Bld) 83 % High 36 - 65 % [employer] Work Phone: Segs Absolute 18.42 High [employer] Work Phone: WBC (Bld) [#/Vol] 22.2 10*3/uL High [employer] Phone: WBC (Bld) [#/Vol] NOT REPORTED [employer] Phone: [employer] Work Phone: CBC with Diffon 04-14-2021 Abs. Basophil 0.00 k/uL Normal 0.0-0.2 [facility] Comment on above: Performed By: #### S WCGP #### [facility] [address] [place] [address] Rural Carrier: Collin De La Fuente MD Abs.Imm.Granulocyte 0.00 k/uL Normal 0.00-0.30 [facility] Comment on above: Performed By: #### S WCGP #### [facility] [address] [place] [address] Rural Carrier: Collin De La Fuente MD Abs.Neutrophil (Seg) 18.42 k/uL High 1.50-8.10 [facility] Comment on above: Performed By: #### S WCGP #### [facility] [place], [place] [phone] Rural Carrier: Collin De La Fuente MD Basophils/100 WBC (Bld) 0 % Normal 0-2 M [facility] Comment on above: Performed By: #### S WCGP #### [address] [address] Rural Carrier: Collin De La Fuente MD Eosinophils (Bld) [#/Vol] 0.00 10*3/uL Normal 0.00-0.44 [facility] Comment on above: Performed By: #### S WCGP #### [address] [address] Rural Carrier: Collin De La Fuente MD Eosinophils/100 WBC (Bld) 0 % Low 1-4 [facility] Comment on above: Performed By: #### S WCGP #### [address] [address] Rural Carrier: Collin De La Fuente MD Immature granulocytes/100 WBC (Bld) 0 % Normal 0 [facility] Comment on above: Performed By: #### S WCGP #### [address] [address] Rural Carrier: Collin De La Fuente MD Lymphocytes (Bld) [#/Vol] 2.00 10*3/uL Normal 1.10-3.70 [facility] Comment on above: Performed By: #### S WCGP #### [address] [address] Rural Carrier: Collin De La Fuente MD Lymphocytes/100 WBC (Bld) 9 % Low 24-43 [facility] Comment on above: Performed By: #### S WCGP #### [address] [address] Rural Carrier: Collin De La Fuente MD Monocytes (Bld) [#/Vol] 1.78 10*3/uL High 0.10-1.20 [facility] Comment on above: Performed By: #### S WCGP #### [address] [address] Rural Carrier: Collin De La Fuente MD Monocytes/100 WBC (Bld) 8 % Normal 3-12 M [facility] Comment on above: Performed By: #### S WCGP #### [facility] [address] [place] [address] Rural Carrier: Collin De La Fuente MD Morphology Hay (Bld) [Interp] Normal Normal [facility] Comment on above: Performed By: #### S WCGP #### [address] [address] Rural Carrier: Collin De La Fuente MD Neutrophil (Seg) 83 % High 36-[address] [facility] Comment on above: Performed By: #### S WCGP #### [address] [address] Rural Carrier: Collin De La Fuente MD Erythrocyte distribution width (RBC) [Ratio] 13.4 % Normal 11.8-14.4 [facility] Comment on above: Performed By: #### S WCGP #### [address] [address] Rural Carrier: Collin De La Fuente MD Hematocrit (Bld) [Volume fraction] 38.4 % Normal 36.3-47.1 [facility] Comment on above: Performed By: #### S WCGP #### [address] [address] Rural Carrier: Collin De La Fuente MD Hemoglobin (Bld) [Mass/Vol] 12.5 g/dL Normal 11.9-15.1 [facility] Comment on above: Performed By: #### S WCGP #### [address] [address] Rural Carrier: Collin De La Fuente MD MCH (RBC) [Entitic mass] 29.6 pg Normal 25.2-33.5 [facility] Comment on above: Performed By: #### S WCGP #### [address] [address] Rural Carrier: Collin De La Fuente MD MCHC (RBC) [Mass/Vol] 32.6 g/dL Normal 28.4-34.8 [facility] Comment on above: Performed By: #### S WCGP #### [address] [address] Rural Carrier: Collin De La Fuente MD MCV (RBC) [Entitic vol] 91.0 fL Normal 82.6-102.9 [facility] Comment on above: Performed By: #### S WCGP #### [address] [address] Rural Carrier: Collin De La Fuente MD NRBC Automated 0.0 per 100 WBC Normal 0.0 [facility] Comment on above: Performed By: #### S WCGP #### [address] [address] Rural Carrier: Collin De La Fuente MD Platelet mean volume (Bld) [Entitic vol] 10.2 fL Normal 8.1-13.5 [facility] Comment on above: Performed By: #### S WCGP #### [address] [address] Rural Carrier: Collin De La Fuente MD Platelets (Bld) [#/Vol] 321 10*3/uL Normal 138-453 [facility] Comment on above: Performed By: #### S WCGP #### [address] [address] Rural Carrier: Collin De La Fuente MD RBC (Bld) [#/Vol] 4.22 10*6/uL Normal 3.95-5.11 [facility] Comment on above: Performed By: #### S WCGP #### [address] [address] Rural Carrier: Collin De La Fuente MD WBC (Bld) [#/Vol] 22.2 10*3/uL High 3.5-11.3 [facility] Comment on above: Performed By: #### S WCGP #### [facility] [address] [place] [address] Rural Carrier: Collin De La Fuente MD Auto Diff Performed NOT REPORTED Normal [facility] Comment on above: Performed By: #### S WCGP #### [facility] [place] [address] Rural Carrier: Collin De La Fuente MD Platelet Estimate NOT REPORTED Normal [facility] Comment on above: Performed By: #### S WCGP #### [facility] [place] [address] Rural Carrier: Collin De La Fuente MD RBC morphology finding Nom (Bld) NOT REPORTED Normal [facility] Comment on above: Performed By: #### S WCGP #### [facility] [address] [place] [address] Rural Carrier: Collin De La Fuente MD WBC Morphology NOT REPORTED Normal [facility] Comment on above: Performed By: #### S WCGP #### [facility] [address] [place] [address] Rural Carrier: Collin De La Fuente MD Hepatic Function PanelOrdere d By: Cisco Lopez on 04-14-2021 Albumin [Mass/Vol] 3.7 g/dL 3.5 - 5.2 g/dL [facility] Phone: Albumin/Globulin [Mass ratio] 1.1 {ratio} [facility] Phone: ALP (Bld) [Catalytic activity/Vol] 68 U/L 35 - 104 U/L [employer] Phone: ALT [Catalytic activity/Vol] 36 U/L High 5 - 33 U/L [facility] Phone: AST [Catalytic activity/Vol] 37 U/L High <32 [employer] Phone: Bilirubin [Mass/Vol] mg/dL Low 0.3 - 1 .2 mg/dL [employer] Phone: Bilirubin, Indirect CANNOT BE CALCULATED 0.00 - 1.00 mg/dL [employer] Phone: Bilirubin.indirect [Mass/Vol] mg/dL <0.31 mg/dL [employer] Phone: Free PSA/Total PSA [Mass fraction] 7.0 g/dL 6.4 - 8.3 g/dL [employer] Phone: Globulin NOT REPORTED 1.5 - 3.8 g/dL [employer] Phone: Interpretation and review of laboratory results Abnormal [employer] Phone: [employer] Phone: Laboratory - Chemistry and C hemistry - challengeOrdered By: Cisco Lopez on 04-14-2021 GFR/1.73 sq M.predicted MDRD (S/P/Bld) [Vol rate/Area] [employer] Phone: Comment on above: Average GFR for 20-2 9 years old: 116 mL/min/1.73sq m Chronic Kidney Disease: <60 mL/min/1.73sq m Kidney failure: <15 mL/min/1.73sq m eGFR calculated using average adult body mass. Additional eGFR calculator available at: http://www.[employer].Mixify/multiple_crcl_2011.htm Stage 1: Some kidney damage normal GFR Stage 2: Mild kidney damage GFR 60-89 Stage 3: Moderate kidney damage GFR 30-59 Stage 4: Severe kidney damage GFR 15-29 Stage 5: Severe kidney damage GFR <15 ESRD - chronic treatment by dialysis or transplant Lipaseon 04-14-2021 Lipase [Catalytic activity/Vol] 40 U/L Normal 13-60 [facility] Comment on above: Performed By: #### B MPX, LIP, LIVP, CDP #### [facility] [address] [place], [place] [phone] Rural Carrier: Amna Clements MD LipaseOrdered By: Brandy on 04-14-2021 Lipase [Catalytic activity/Vol] 40 U/L 13 - 60 U/L [facility] Work Phone: Liver Profileon 04-14-2021 Bilirubin [Mass/Vol] mg/dL Low 0.3-1.2 [facility] Comment on above: Performed By: #### B MPX, LIP, LIVP, CDP #### [facility] [address] [place], [place] [phone] Rural Carrier: Amna Clements MD Bilirubin, Indirect CANNOT BE CALCULATED Normal 0.00-1 .00 [facility] Comment on above: Performed By: #### B MPX, LIP, LIVP, CDP #### [facility] [address] [place] [address] [place] [place], [place] [phone] Rural Carrier: Amna Clements MD Albumin [Mass/Vol] 3.7 g/dL Normal 3.5-5.2 [facility] Comment on above: Performed By: #### B MPX, LIP, LIVP, CDP #### [facility] [address] [place] [address] [place] [place], [place] [phone] Rural Carrier: Amna Clements MD Albumin/Glob Ratio 1.1 Normal 1.0-2.5 [facility] Comment on above: Performed By: #### B MPX, LIP, LIVP, CDP #### [facility] [address] [place] [address] Dr[address] [place], [place] [phone] Rural Carrier: Amna Clements MD Alkaline Phos 68 U/L Normal 35-104 [facility] Comment on above: Performed By: #### B MPX, LIP, LIVP, CDP #### [facility] [address] [place], [place] [phone] Rural Carrier: Amna Clements MD ALT [Catalytic activity/Vol] 36 U/L High 5-33 [facility] Comment on above: Performed By: #### B MPX, LIP, LIVP, CDP #### [facility] [address] [place], [place] [phone] Rural Carrier: Amna Clements MD AST [Catalytic activity/Vol] 37 U/L High <32 [facility] Comment on above: Performed By: #### B MPX, LIP, LIVP, CDP #### [facility] [address] [place], [place] [phone] Rural Carrier: Amna Clements MD Bilirubin.indirect [Mass/Vol] mg/dL Normal <0.31 [facility] Comment on above: Performed By: #### B MPX, LIP, LIVP, CDP #### [facility] [address] [place], [place] [phone] Rural Carrier: Amna Clements MD Protein [Mass/Vol] 7.0 g/dL Normal 6.4-8.3 [facility] Comment on above: Performed By: #### B MPX, LIP, LIVP, CDP #### [address] [place], [place] [phone] Rural Carrier: Amna Clements MD Globulin Fraction NOT REPORTED Normal 1.5-3.8 [facility] Comment on above: Performed By: #### B MPX, LIP, LIVP, CDP #### [address] [place], [place] [phone] Rural Carrier: Amna Clements MD Microscopic UrinalysisOrdere d By: Cisco Lopez on 04-14-2021 - [facility] Work Phone: Amorphous, UA NOT REPORTED None [facility] Work Phone: Bacteria, UA TRACE Abnormal None [facility] Work Phone: Casts UA NOT REPORTED /LPF [facility] Work Phone: Crystals, UA NOT REPORTED None /HPF [facility] Work Phone: Epithelial Cells UA 10 TO 20 [facility] Work Phone: Interpretation and review of laboratory results Abnormal [facility] Work Phone: Mucus, UA TRACE Abnormal None [facility] Work Phone: Other Observations UA NOT REPORTED NOT REQ. M [facility] [employer] Work Phone: RBC, UA 0 TO 2 [facility] Work Phone: Renal Epithelial, UA NOT REPORTED 0 /HPF [facility] Work Phone: Trichomonas, UA NOT REPORTED None [facility] [employer] Work Phone: WBC, UA 0 TO 2 [facility] [employer] Work Phone: Yeast, UA NOT REPORTED None [facility] [employer] Work Phone: [facility] [employer] Work Phone: No Panel InformationOrdered By: Cisco Lopez on 04-14-2021 [facility] [employer] Work Phone: UA w/Reflex Cultureon 2020 Bilirubin, SemiQt,Ur Negative Normal NEG [facility] Comment on above: Performed By: #### S WCGP #### [employer] [address] [place] [phone] Rural Carrier: Collin De La Fuente MD Blood, Urine Negative Normal NEG [facility] Comment on above: Performed By: #### S WCGP #### [employer] [address] [place] [phone] Rural Carrier: Collin De La Fuente MD Clarity (U) CLEAR Normal CLEAR [facility] Comment on above: Performed By: #### S WCGP #### [facility] [address] [place] [phone] Rural Carrier: Collin De La Fuente MD Color (U) YELLOW Normal YEL [facility] Comment on above: Performed By: #### S WCGP #### [facility] [address] [place] [address] Rural Carrier: Collin De La Fuente MD Glucose Ql (U) Negative Normal NEG [facility] Comment on above: Performed By: #### S WCGP #### [address] [address] Rural Carrier: Collin De La Fuente MD Ketones Ql (U) TRACE Abnormal NEG [facility] in Hospital Comment on above: Performed By: #### S WCGP #### [address] [address] Rural Carrier: Collin De La Fuente MD Leukocyte esterase Test strip Ql (U) Negative Normal NEG [facility] Comment on above: Performed By: #### S WCGP #### [address] [address] Rural Carrier: Collin De La Fuente MD Nitrite,Ur Negative Normal NEG [facility] Comment on above: Performed By: #### S WCGP #### [address] [address] Rural Carrier: Collin De La Fuente MD PH,Ur 5.5 Normal 5.0-9.0 [facility] Comment on above: Performed By: #### S WCGP #### [address] [address] Rural Carrier: Collin De La Fuente MD Protein Ql (U) TRACE Abnormal NEG [facility] in Hospital Comment on above: Performed By: #### S WCGP #### [address] [address] Rural Carrier: Collin De La Fuente MD Spec. [place],Ur >1.030 High 1.010-1.020 [facility] Comment on above: Performed By: #### S WCGP #### [address] [address] Rural Carrier: Collin De La Fuente MD Urobilinogen,Ur Normal Normal NORM [facility] Comment on above: Performed By: #### S WCGP #### [employer] [address] [place], [place] [phone] Rural Carrier: Collin De La Fuente MD Comment NOT REPORTED Normal [facility] Comment on above: Performed By: #### S WCGP #### [facility] [address] [place], [place] [phone] Rural Carrier: Collin De La Fuente MD Urinalysis Reflex to Culture Ordered By: Cisco Lopez on 04-14-2021 Bilirubin Urine Negative NEGATIVE [facility] Work Phone: Color, UA YELLOW YELLOW [facility] [employer] Work Phone: Glucose, Ur Negative NEGATIVE [facility] [employer] Phone: Interpretation and review of laboratory results Abnormal [facility] [employer] Phone: Ketones Ql (U) TRACE Abnormal NEGATIVE [facility] Work Phone: Leukocyte esterase Test strip Ql (U) Negative NEGATIVE [facility] [employer] Phone: Nitrite, Urine Negative NEGATIVE [facility] Work Phone: pH, UA 5.5 [facility] [employer] Phone: Protein, UA TRACE Abnormal NEGATIVE [facility] [employer] Phone: Specific [place], UA >1.030 High [facility] [employer] Phone: Turbidity UA CLEAR CLEAR [facility] [employer] Phone: Urinalysis Comments NOT REPORTED [facility] [employer] Work Phone: Urine Hgb Negative NEGATIVE [facility] [employer] Phone: Urobilinogen, Urine Normal Normal [facility] [employer] Phone: [facility] [employer] Phone: Urinalysis,Microon 1 ----- Normal [facility] Comment on above: Performed By: #### U MICAO, UA #### [facility] [address] [place], [place] [phone] Rural Carrier: Amna Clements MD Bacteria TRACE Abnormal NONE [facility] Comment on above: Performed By: #### U MICAO, UA #### [facility] [address] [place], [facility] Rural Carrier: Amna Clements MD Epithelial cells LM Ql (Urine sed) 10 TO 20 Normal 0-25 [facility] Comment on above: Performed By: #### U ROSAO, UA #### [facility] [address] [place], [facility] Rural Carrier: Amna Clements MD Mucus Strands TRACE Abnormal [facility] Comment on above: Performed By: #### U ROSAO, UA #### [facility] [address] [place], [facility] Rural Carrier: Amna Clements MD Urine RBC's 0 TO 2 Normal 0-2 [facility] Comment on above: Performed By: #### U MICAO, UA #### [facility] [address] [place], [place] 255[address]83 Rural Carrier: Amna Clements MD Urine WBC's 0 TO 2 Normal 0-5 [facility] Comment on above: Performed By: #### U MICAO, UA #### [facility] [address] [place], [place] 5332383 Rural Carrier: Amna Clements MD Amorphous sediment LM Ql (Urine sed) NOT REPORTED Normal [facility] Comment on above: Performed By: #### U MICAO, UA #### [facility] [address] [place], [place] 401[address]83 Rural Carrier: Amna Clements MD Casts NOT REPORTED Normal [facility] Comment on above: Performed By: #### U MICAO, UA #### [facility] [address] [place] [address] Rural Carrier: Amna Clements MD Crystals LM Nom (Urine sed) NOT REPORTED Normal [facility] Comment on above: Performed By: #### U MICAO, UA #### [facility] [address] [place] [address] Rural Carrier: Amna Clements MD Epithelial, Renal NOT REPORTED Normal 0 [facility] Comment on above: Performed By: #### U MICAO, UA #### [facility] [address] [place], [place] 898[address]83 Rural Carrier: Amna Clements MD Other Observations NOT REPORTED Normal [facility] Comment on above: Performed By: #### U MICAO, UA #### [facility] [address] [place] [address] Rural Carrier: Amna Clements MD Trichomonas NOT REPORTED Normal [facility] Comment on above: Performed By: #### U MICAO, UA #### [facility] [address] [place] [address] Rural Carrier: Amna Clements MD Yeast NOT REPORTED Normal [facility] Comment on above: Performed By: #### U MICAO, UA #### [facility] [address] [place] [address] Rural Carrier: Amna Clements MD D-Dimer Teston 03-24-2021 D-Dimer Test 0.44 mg/L FEU Normal 0.00-0.59 [facility] Comment on above: Result Comment: When combined [...] with distal DVT. Performed By: #### S [facility] #### [employer] [address] [place] [address] Rural Carrier: Collin De La Fuente MD D-Dimer, QuantitativeOrdered By: Lidia Núñez on 03-23-2021 D-Dimer, Quant 0.44 [employer] [facility] Work Phone: Comment on above: When combined [...] Ampon 03-11 Chlamydia Probe Negative Normal NEG [facility] Comment on above: Result Comment: CHLA MYDIA [...] target. Performed By: #### S [facility] #### [id number] [place], [place] [id number] Rural Carrier: Collin De La Fuente MD Gonorrhea Probe Negative Normal [facility] Comment on above: Result Comment: NEIS [...] target. Performed By: #### S [facility] #### [id number] [place], [place] 326[address]08 Rural Carrier: Collin De La Fuente MD Cult,Urineon 03-11-2021 Cult,Urine Specimen Description .CLEAN CATCH URINE Special Requests NOT REPORTED Culture NO SIGNIFICANT GROWTH Report Status FINAL 03/11/2021 Normal [facility] Comment on above: Performed By: #### U RC #### [address] [place] [address] Rural Carrier: Collin De La Fuente MD [address] [place] [address] Rural Carrier: Amna Clements MD HCG, ,Urineon 03-10 Beta HCG ( test) Ql (U) Positive Abnormal NEG [facility] Comment on above: Result Comment: If HCG results do not concur with clinical observations, additional testing to confirm result is recommended. This test is not labeled for use as a tumor marker. [facility] has confirmed the use of plasma for this test. This has not been cleared or approved by the U.S. Food and Drug Administration. The FDA has determined that such clearance is not necessary. Performed By: #### S [facility] #### [address] [place] [address] Rural Carrier: Collin De La Fuente MD Trichomonas/Wet Prepon 03-10 Trichomonas/Wet Prep Specimen Descriptio n .VAGINA Special Requests NOT REPORTED Direct Exam NO TRICHOMONAS SEEN NO YEAST OBSERVED RARE CLUE CELLS SEEN Report Status FINAL 03/10/2021 Normal [facility] Comment on above: Performed By: #### W P #### [facility] [address] [place] [address] Rural Carrier: Amna Clements MD UA w/Reflex Cultureon 2020 Acetoacetic Acid,Ur Negative Normal NEG [facility] Comment on above: Performed By: #### S [facility] #### [address] [address] Rural Carrier: Collin De La Fuente MD Bilirubin, SemiQt,Ur Negative Normal NEG [facility] Comment on above: Performed By: #### S W[facility]P #### [address] [address] Rural Carrier: Collin De La Fuente MD Color (U) YELLOW Normal Y[facility] Comment on above: Performed By: #### S W[facility]P #### [address] [address] Rural Carrier: Collin De La Fuente MD Glucose Ql (U) Negative Normal NEG [facility] Comment on above: Performed By: #### S WCGP #### [address] [address] Rural Carrier: Collin De La Fuente MD Hemoglobin, Ur Negative Normal NEG [facility] Comment on above: Performed By: #### S [facility] #### [address] [address] Rural Carrier: Collin De La Fuente MD Leukocyte esterase Test strip Ql (U) LARGE Abnormal NEG [facility] Comment on above: Performed By: #### S [facility] #### [address] [address] Rural Carrier: Collin De La Fuente MD Nitrite,Ur Negative Normal NEG [facility] Comment on above: Performed By: #### S WCGP #### [address] [address] Rural Carrier: Collin De La Fuente MD PH,Ur 7.5 Normal 5.0-9.0 [facility] Comment on above: Performed By: #### S WCGP #### [address] [address] Rural Carrier: Collin De La Fuente MD Protein Ql (U) Negative Normal NEG [facility] Comment on above: Performed By: #### S WCGP #### [address] [address] Rural Carrier: Collin De La Fuente MD Spec. [place],Ur 1.020 Normal 1.010-1.020 [facility] Comment on above: Performed By: #### S WCGP #### [address] [address] Rural Carrier: Collin De La Fuente MD Turbidity CLOUDY Abnormal CLEAR [facility] Comment on above: Performed By: #### S W[facility] #### [address] [address] Rural Carrier: Collin De La Fuente MD Urobilinogen,Ur Normal Normal NORM [facility] Comment on above: Performed By: #### S WCGP #### [address] [address] Rural Carrier: Collin De La Fuente MD Comment NOT REPORTED Normal [facility] Comment on above: Performed By: #### S WCGP #### [address] [address] Rural Carrier: Collin De La Fuente MD Urinalysis,Microon 1 ----- Normal [facility] Comment on above: Performed By: #### S WCGP #### [address] [address] Rural Carrier: Collin De La Fuente MD Amorphous sediment LM Ql (Urine sed) 1+ Abnormal NONE [facility] Comment on above: Performed By: #### S WCGP #### [address] [address] Rural Carrier: Collin De La Fuente MD Bacteria 3+ Abnormal NONE [facility] Comment on above: Performed By: #### S W[facility]P #### [address] [address] Rural Carrier: Collin De La Fuente MD Epithelial cells LM Ql (Urine sed) 20 TO 50 Normal 0-25 [facility] Comment on above: Performed By: #### S WCGP #### [address] [address] Rural Carrier: Collin De La Fuente MD Urine RBC's None Normal 0-2 [facility] Comment on above: Performed By: #### S WCGP #### [address] [address] Rural Carrier: Collin De La Fuente MD Urine WBC's 10 TO 20 Normal 0-5 [facility] Comment on above: Performed By: #### S WCGP #### [address] [address] Rural Carrier: Collin De La Fuente MD Casts NOT REPORTED Normal [facility] Comment on above: Performed By: #### S WCGP #### [address] [address] Rural Carrier: Collin De La Fuente MD Crystals LM Nom (Urine sed) NOT REPORTED Normal NONE [facility] Comment on above: Performed By: #### S WCGP #### [facility] [address] [place] [address] Rural Carrier: Collin De La Fuente MD Epithelial, Renal NOT REPORTED Normal 0 [facility] Comment on above: Performed By: #### S WCGP #### [facility] [address] [place] [address] Rural Carrier: Collin De La Fuente MD Mucus Strands NOT REPORTED Normal NONE [facility] Comment on above: Performed By: #### S WCGP #### [address] [address] Rural Carrier: Collin De La Fuente MD Other Observations NOT REPORTED Normal NREQ [facility] Comment on above: Performed By: #### S WCGP #### [address] [address] Rural Carrier: Collin De La Fuente MD Trichomonas NOT REPORTED Normal NONE [facility] Comment on above: Performed By: #### S WCGP #### [address] [place] [address] Rural Carrier: Collin De La Fuente MD Yeast NOT REPORTED Normal [facility] Comment on above: Performed By: #### S WCGP #### [address] [address] Rural Carrier: Collin De La Fuente MD Cult,Urineon 03-02-2021 Cult,Urine Specimen Description .CLEAN CATCH URINE Special Requests NOT REPORTED Culture NO SIGNIFICANT GROWTH Report Status FINAL 03/02/2021 Normal [facility] Comment on above: Performed By: #### U RC #### [address] [address] Rural Carrier: Collin De La Fuente MD [facility] [address] [place] [address] Rural Carrier: Amna Clements MD C. Trachomatis, External Res ultOrdered By: Historical Provider on 03-01-2021 C. Trachomatis, External Result Negative [facility] [employer] Work Phone: Comment on above: William Joel RN/confirmed with Igor Kinsey RN N. Gonorrhoeae, External Res ultOrdered By: Historical Provider on 03-01-2021 N. Gonorrhoeae, External Result Negative [facility] [employer] Work Phone: Comment on above: William Joel RN/confirmed with Igor Kinsey RN No Panel InformationOrdered By: Historical Provider on 03-01-2021 [facility]: Microscopic Urinalysison Amorphous, UA NOT REPORTED None [facility] Work Phone: Bacteria, UA NOT REPORTED None [facility] Work Phone: Casts UA NOT REPORTED /LPF [facility] [employer] Work Phone: Crystals, UA NOT REPORTED None /HPF [facility] Work Phone: Epithelial Cells UA 50 TO 100 [facility] [employer] Work Phone: Mucus, UA NOT REPORTED None [facility] [employer] Work Phone: Other Observations UA NOT REPORTED NOT REQ. M [facility] Work Phone: RBC (U) [#/Vol] 0 TO 2 [facility] Work Phone: Renal Epithelial, UA NOT REPORTED 0 /HPF [facility] Work Phone: Trichomonas, UA NOT REPORTED None [facility] Work Phone: WBC, UA 20 TO 50 [facility] [employer] Work Phone: Yeast, UA NOT REPORTED None [facility] Work Phone: - [facility] Work Phone: Otheron 02-28-2021 Living intrauterine with an estimated gestational age of 13 weeks and 1 day by current ultrasound [employer] Phone: Dario, Mhpn Incoming Radiant Results From [employer] - 02/28/2021 1:48 PM EDT EXAMINATION: TRANSABDOMINAL [...] posteriorly to the right. Pole: Single pole [place] Rump Length: 6.8 cm Heart Rate: 160 [...] weeks and 1 day by current ultrasound [employer] Phone: EXAMINATION: TRANSABDOMINAL FIRST TRIMESTER OBSTETRIC PELVIC [...] posteriorly to the right. Pole: Single pole [place] Rump Length: 6.8 cm Heart Rate: 160 [...] days Estimated Due Date: 09/04/2021, 08/30/2021 respectively [employer] Phone: US DUP ABD PEL RETRO SCROT [...] posteriorly to the right. Pole: Single pole [place] Rump Length: 6.8 cm Heart Rate: 160 [...] Mariano Min MD 02/28/21 Final result [facility] US OB LESS THAN 14 WEEKS [...] posteriorly to the right. Pole: Single pole [place] Rump Length: 6.8 cm Heart Rate: 160 [...] Mariano Min MD 02/28/21 Final result [facility] Urinalysis, Routineon 2020 Acetoacetic Acid,Ur Negative Normal NEG [facility] Comment on above: Performed By: #### U NILAM UA #### [facility] [address] [place] [address] Rural Carrier: Amna Clements MD Bilirubin, SemiQt,Ur Negative Normal NEG [facility] Comment on above: Performed By: #### U NILAM UA #### [facility] [address] [place] [address] Rural Carrier: Amna Clements MD Color (U) YELLOW Normal YEL [facility] Comment on above: Performed By: #### U NILAM UA #### [facility] [address] [place], [place] [phone] Rural Carrier: Amna Clements MD Glucose Ql (U) Negative Normal NEG [facility] Comment on above: Performed By: #### U MICAO, UA #### [facility] [address] [place], [place] 5570483 Rural Carrier: Amna Clements MD Hemoglobin, Ur Negative Normal NEG [facility] Comment on above: Performed By: #### U MICAO, UA #### [facility] [address] [place] [address] [place] [place], [place] 9379483 Rural Carrier: Amna Clements MD Leukocyte esterase Test strip Ql (U) MODERATE Abnormal NEG [facility] Comment on above: Performed By: #### U MICAO, UA #### [facility] [address] [place] [address] [place] [place], [place] [address]83 Rural Carrier: Amna Clements MD Nitrite,Ur Negative Normal NEG [facility] Comment on above: Performed By: #### U MICAO, UA #### [facility] [address] [place] [address] [place]. [place], [place] 3943383 Rural Carrier: Amna Clements MD PH,Ur 7.5 Normal 5.0-9.0 [facility] Comment on above: Performed By: #### U MICAO, UA #### [facility] [address] [place] [address] Dr. [place], [place] 5009483 Rural Carrier: Amna Clements MD Protein Ql (U) Negative Normal NEG [facility] Comment on above: Performed By: #### U MICAO, UA #### [facility] [address] [place] [address] [place]. [place], [place] 1277083 Rural Carrier: Amna Clements MD Spec. [place],Ur 1.020 Normal 1.010-1.020 [facility] Comment on above: Performed By: #### U MICAO, UA #### [facility] [address] [place], [place] 57[address]83 Rural Carrier: Amna Clements MD Turbidity CLEAR Normal CLEAR [facility] Comment on above: Performed By: #### U MICAO, UA #### [facility] [address] [place], [place] 7914483 Rural Carrier: Amna Clements MD Urobilinogen,Ur Normal Normal NORM [facility] Comment on above: Performed By: #### U MICAO, UA #### [facility] [address] [place], [place] [phone] Rural Carrier: Amna Clements MD Comment NOT REPORTED Normal [facility] Comment on above: Performed By: #### U MICAO, UA #### [facility] [address] [place], [place] 990[address]83 Rural Carrier: Amna Clements MD Urinalysis, reflex to micros copicon 02-28-2021 Bilirubin Urine Negative NEGATIVE [facility] Work Phone: Color, UA YELLOW YELLOW [facility] Work Phone: Glucose, Ur Negative NEGATIVE [facility] Work Phone: Interpretation and review of laboratory results Abnormal [facility] Work Phone: Ketones Ql (U) Negative NEGATIVE [facility] Work Phone: Leukocyte esterase Test strip Ql (U) MODERATE Abnormal NEGATIVE [facility] Work Phone: Nitrite, Urine Negative NEGATIVE [facility] Work Phone: pH, UA 7.5 [facility] Work Phone: Protein (U) [Mass/Vol] Negative NEGATIVE [facility] Work Phone: Specific [place], UA 1.020 [facility] Work Phone: Turbidity UA CLEAR CLEAR [facility] Work Phone: Urinalysis Comments NOT REPORTED [facility] [employer] Work Phone: Urine Hgb Negative NEGATIVE [facility] [employer] Phone: Urobilinogen, Urine Normal Normal [facility] [employer] Phone: Urinalysis,Microon 1 ----- Normal [facility] Comment on above: Performed By: #### U MICAO, UA #### [facility] [address] [place] [address] Rural Carrier: Amna Clements MD Epithelial cells LM Ql (Urine sed) 50 TO 100 Normal 0-25 [facility] Comment on above: Performed By: #### U MICAO, UA #### [facility] [address] [place] [address] Rural Carrier: Amna Clements MD Urine RBC's 0 TO 2 Normal 0-2 [facility] Comment on above: Performed By: #### U MICAO, UA #### [facility] [address] [place], [place] 2925483 Rural Carrier: Amna Clements MD Urine WBC's 20 TO 50 Normal 0-5 [facility] Comment on above: Performed By: #### U MICAO, UA #### [facility] [address] [place] [address] Rural Carrier: Amna Clements MD Amorphous sediment LM Ql (Urine sed) NOT REPORTED Normal [facility] Comment on above: Performed By: #### U MICAO, UA #### [facility] [address] [place], [place] 3358783 Rural Carrier: Amna Clements MD Bacteria NOT REPORTED Normal [facility] Comment on above: Performed By: #### U MICAO, UA #### [facility] [address] [place], [place] 8575883 Rural Carrier: Amna Clements MD Casts NOT REPORTED [facility] Comment on above: Performed By: #### U NILAM, UA #### [facility] [address] [place], [place] [address] Rural Carrier: Amna Clements MD Crystals LM Nom (Urine sed) NOT REPORTED Normal NONE [facility] Comment on above: Performed By: #### U NILAM, UA #### [facility] [address] [place], [place] 144[address]83 Rural Carrier: Amna Clements MD Epithelial, Renal NOT REPORTED Normal 0 [facility] Comment on above: Performed By: #### U NILAM, UA #### [facility] [address] [place], [place] 7823483 Rural Carrier: Amna Clements MD Mucus Strands NOT REPORTED Normal NONE [facility] Comment on above: Performed By: #### U NILAM, UA #### [facility] [address] [place], [place] [address] Rural Carrier: Amna Clements MD Other Observations NOT REPORTED Normal NREQ [facility] Comment on above: Performed By: #### U NILAM, UA #### [facility] [address] [place], [place] [address] Rural Carrier: Amna Clements MD Trichomonas NOT REPORTED Normal NONE [facility] Comment on above: Performed By: #### U NILAM, UA #### [facility] [address] [place], [place] 524[address] Rural Carrier: Amna Clements MD Yeast NOT REPORTED Normal NONE [facility] Comment on above: Performed By: #### U NILAM, UA #### [facility] [address] [place] [address] Rural Carrier: Amna Clements MD ABO, External ResultOrdered By: Historical Provider on 02-17-2021 ABO, External Result AB [facility] Work Phone: Comment on above: William Joel RN/confirmed with Igor Kinsey RN HIV, External ResultOrdered By: Historical Provider on 02-17-2021 HIV, External Result Non-Reactive [employer] Phone: Comment on above: William Joel RN/confirmed with Igor Kinsey RN Hepatitis B, External Result Ordered By: Historical Provider on 02-17-2021 Hep B, External Result Negative [employer] Phone: Comment on above: William Joel RN/confirmed with Igor Kinsey RN Hepatitis C Antibody, Analytic Programmer al ResultOrdered By: Historical Provider on 02-17-2021 Hepatitis C Antibody, External Result Negative [employer] Phone: Comment on above: William Joel RN/confirmed with Igor Kinsey RN No Panel InformationOrdered By: Historical Provider on 02-17-2021 [employer] Phone: RPR, External LabOrdered By: Historical Provider on 02-17-2021 RPR, External Result Non-Reactive [employer] Phone: Comment on above: William Joel RN/confirmed with Igor Kinsey RN Rh Factor, External ResultOr dered By: Historical Provider on 02-17-2021 Rh Factor, External Result Positive [employer] Phone: Comment on above: William Joel RN/confirmed with Igor Kinsey RN Rubella Titer, External Resu ltOrdered By: Historical Provider on 02-17-2021 Rubella Titer, External Result immune [employer] Phone: Comment on above: William Joel RN/confirmed with Igor Kinsey RN Vital Signs Date Time Vital Sign Value Performing Clinician Faci raul 06-16-2021 23:58-0400 Diastolic blood pressure 62 mm[Hg] Richar Obrien APRN - CNM Work Phone: [employer] Phone: 06-16-2021 23:58-0400 Heart rate 91 /min Richar Obrien APRN - CNM Work Phone: [employer] Phone: 06-16-2021 23:58-0400 Respiratory rate 16 /min Richar Obrien DOUBLE CUT SAWYER - CNM Work Phone: [employer] Work Phone: 06-16-2021 23:58-0400 Systolic blood pressure 107 mm[Hg] Richar Obrien DOUBLE CUT SAWYER - CNM Work Phone: [employer] Work Phone: 06-16-2021 20:33-0400 Body temperature 97.7 [degF] Richar Obrien DOUBLE CUT SAWYER - CNM Work Phone: [employer] Work Phone: 05-24-2021 23:40-0400 Body temperature 97.9 [degF] Rema Pool DOUBLE CUT SAWYER - CNM Work Phone: [employer] Work Phone: 05-24-2021 23:40-0400 Respiratory rate 20 /min Rema Pool DOUBLE CUT SAWYER - CNM Work Phone: [employer] Work Phone: 05-24-2021 23:32-0400 Diastolic blood pressure 70 mm[Hg] Rema Pool DOUBLE CUT SAWYER - CNM Work Phone: [employer] Work Phone: 05-24-2021 23:32-0400 Heart rate 109 /min Rema Pool DOUBLE CUT SAWYER - CNM Work Phone: [employer] Work Phone: 05-24-2021 23:32-0400 Systolic blood pressure 120 mm[Hg] Rema Pool DOUBLE CUT SAWYER - CNM Work Phone: [employer] Work Phone: 05-18-2021 08:59-0400 Diastolic blood pressure 55 mm[Hg] Richar Obrien DOUBLE CUT SAWYER - CNM Work Phone: [employer] Work Phone: 05-18-2021 08:59-0400 Heart rate 100 /min Richar Obrien APRN - [employer] Work Phone: [employer] Work Phone: 05-18-2021 08:59-0400 Systolic blood pressure 102 mm[Hg] Richar Obrien APRN - [employer] Work Phone: [employer] Work Phone: 05-18-2021 06:45-0400 Body height 154.9 cm Richar Obrien APRN - [employer] Work Phone: [employer] Work Phone: 05-18-2021 06:45-0400 Body mass index (BMI) [Ratio] 29.29 kg/m2 Richar Gonzalez CNYinka Work Phone: [employer] Work Phone: 05-18-2021 06:45-0400 Body weight 70.31 kg Richar Gonzalez CNM Work Phone: [employer] Work Phone: 05-18-2021 06:41-0400 Body temperature 98.4 [degF] Richar Gonzalez CNYinka Work Phone: [employer] Work Phone: 05-18-2021 06:41-0400 Respiratory rate 20 /min Richar Gonzalez CNM Work Phone: [employer] Work Phone: 04-14-2021 03:30-0400 Diastolic blood pressure 65 mm[Hg] Cisco Andes DO Work Phone: [employer] Work Phone: 04-14-2021 03:30-0400 SaO2% (BldA) [Mass fraction] 100 % Cisco Andes DO Work Phone: [employer] Work Phone: 04-14-2021 03:30-0400 Systolic blood pressure 107 mm[Hg] Cisco Andes DO Work Phone: [employer] Work Phone: 04-14-2021 01:57-0400 Heart rate 108 /min Cisco Andes DO Work Phone: [employer] Work Phone: 04-14-2021 01:35-0400 Respiratory rate 16 /min Cisco Andes DO Work Phone: [employer] Work Phone: 04-14-2021 01:33-0400 Body temperature 97.7 [degF] Cisco Andes DO Work Phone: [employer] Work Phone: 03-23-2021 21:13-0400 Body temperature 97.59 [degF] Lidia Núñez MD Work Phone: [employer] Work Phone: 03-23-2021 21:13-0400 Diastolic blood pressure 70 mm[Hg] Lidia Núñez MD Work Phone: [employer] Work Phone: 03-23-2021 21:13-0400 Heart rate 98 /min Lidia Núñez MD Work Phone: [employer] Work Phone: 03-23-2021 21:13-0400 Respiratory rate 16 /min Lidia Núñez MD Work Phone: [employer] Work Phone: 03-23-2021 21:13-0400 SaO2% (BldA) [Mass fraction] 98 % Lidia Núñez MD Work Phone: [employer] Work Phone: 03-23-2021 21:13-0400 Systolic blood pressure 119 mm[Hg] Lidia Núñez MD Work Phone: [employer] Phone: 02-28-2021 12:28-0400 Body Temperature 97.81 [degF] [facility] Blood [employer] Phone: 02-28-2021 12:28-0400 BP Diastolic 72 mm[Hg] [facility] [employer] Phone: 02-28-2021 12:28-0400 BP Systolic 124 mm[Hg] [facility] [employer] Phone: 02-28-2021 12:28-0400 Pulse (Heart Rate) 97 /min [facility] [employer] Phone: 02-28-2021 12:28-0400 Pulse Oximetry 100 % [facility] [employer] Phone: 02-28-2021 12:28-0400 Respiratory Rate 15 /min [facility] [employer] Phone: Encounters Encounter Date Encounter Type Care [...] Subsequent hospital visit by physician Rema Tapia [employer] - CNM Work Phone: [facility] Start: 05-18-2021 End: 05-18-2021 [facility] Start: 05-18-2021 End: 05-18-2021 Subsequent hospital visit by physician Richar Obrien [employer] - CNM Work Phone: [facility] Start: 04-14-2021 End: 04-14-2021 Emergency department [facility] Start: 04-14-2021 End: 04-14-2021 Emergency department patient visit Cisco Lopez DO Work Phone: [facility] Comment on above: Nausea and vomiting during (Primary Dx) Start: 03-23-2021 End: 03-24-2021 Emergency department patient visit LIDIA N[facility] Start: 03-23-2021 End: 03-23-2021 Emergency department patient visit Lidia Núñez MD Work Phone: [facility] Comment on above: Leg swelling (Primar y Dx) Start: 03-10-2021 End: 03-10-2021 Emergency department patient visit ALIDA R ALCAL[facility] Start: 02-28-2021 End: 02-28-2021 Emergency department patient visit MECHE BLO[facility] Start: 02-28-2021 End: 02-28-2021 Emergency department patient visit Meche Blood Work Phone: [facility] Comment on above: Abdominal pain, unsp ecified abdominal location (Primary Dx); Urinary tract infection without hematuria, site unspecified; Intrauterine Procedures Date Procedure Procedure Detail Performing Clinician Start: 05-18-2021 Urinalysis microscop ic only Richar Obrien [employer] - CNM Work Phone: Start: 05-18-2021 Urnls dip stick/tabl et rgnt auto w/o microscopy Richar Obrien [employer] - CNM Work Phone: Start: 04-14-2021 Assay of lipase Cisco Andes DO Work Phone: Start: 04-14-2021 BASIC METABOLIC PANE L W/ REFLEX TO MG FOR LOW K Cisco Andes DO Work Phone: Start: 04-14-2021 Hepatic [...] DTaP/Tdap/Td vaccine (2 - Td or Tdap) [employer] Work Phone: Start: 05-16-2023 DTaP/Tdap/Td vaccine (2 - Td) DTaP/Tdap/Td vaccine (2 - Td) [employer] Phone: Start: 07-27-2021 [facility] Start: 03-23-2021 End: 03-23-2022 VL DUP LOWER EXTREMITY VENOUS BILATERAL VL DUP LOWER EXTREMITY VENOUS BILATERAL Imaging Routine Leg swelling Expected: 03/23/2021, Expires: 03/23/2022 [employer] Phone: Comment on above: Expected: 03/23/2021 , Expires: 03/23/2022 Start: 2015 Screening for malign ant neoplasm of cervix Cervical cancer screen [employer] Phone: Start: 2010 COVID-19 Vaccine (1) COVID-19 Vaccin e (1) [employer] Phone: Start: 2009 HIV screening HIV screen [employer] [facility] Work Phone: Start: 2006 COVID-19 Vaccine (1) COVID-19 Vaccin e (1) [employer] Phone: Start: 1995 Varicella vaccine (1 of 2 - 2-dose childhood series) Varicella vaccine (1 of 2 - 2-dose childhood series) [employer] Phone: Start: 1994 Hepatitis C screening Hepatitis C [facility] Phone: End: 05-18-2021 Bacteria identified in Urine by Culture Urine culture Microbiology Routine One Time for 1 Occurrences starting 05/18/2021 until 05/18/2021 [employer] Phone: Comment on above: One Time for 1 Occur rences starting 05/18/2021 until 05/18/2021 End: 02-28-2021 CBC Auto Differential CBC Auto Differential Lab STAT One Time for 1 Occurrences starting 02/28/2021 until 02/28/2021 [employer] Phone: Comment on above: One Time for 1 Occur rences starting 02/28/2021 until 02/28/2021 End: 02-28-2021 Comprehensive Metabolic Panel w/ Reflex to MG Comprehensive Metabolic Panel w/ Reflex to MG Lab STAT One Time for 1 Occurrences starting 02/28/2021 until 02/28/2021 [employer] Phone: Comment on above: One Time for 1 Occur rences starting 02/28/2021 until 02/28/2021 End: 02-28-2021 Culture, Urine Culture, Urine Microbiology Routine One Time for 1 Occurrences starting 02/28/2021 until 02/28/2021 [employer] Phone: Comment on above: One Time for 1 Occur rences starting 02/28/2021 until 02/28/2021 Nonrebreather mask oxygen [employer] Phone: Comment on above: As directed - RT (ND N) until discontinued starting 05/18/2021 As directed - RT (ND N) until discontinued starting 05/24/2021 As directed - RT (ND N) until discontinued starting 06/16/2021 End: 05-18-2021 SVE SVE Point of Care Testing Routine One Time for 1 Occurrences starting 05/18/2021 until 05/18/2021 [employer] Phone: Comment on above: One Time for 1 Occur rences starting 05/18/2021 until 05/18/2021 End: 05-24-2021 SVE SVE Point of Care Testing Routine One Time for 1 Occurrences starting 05/24/2021 until 05/24/2021 [employer] Phone: Comment on above: One Time for 1 Occur rences starting 05/24/2021 until 05/24/2021 End: 06-16-2021 SVE SVE Point of Care Testing Routine One Time for 1 Occurrences starting 06/16/2021 until 06/16/2021 [employer] Phone: Comment on above: One Time for 1 Occur rences starting 06/16/2021 until 06/16/2021 Payers Date Payer Category Payer Unknown [id number] 2.16.8 [id number] 1994 Unknown [id number] 2.16.8 40.1.437584.3.579.2.173 1994 Unknown [id number] 2.16.8 40.1.261295.3.579.2.173 1994 Unknown [id number] 2.16.8 40.1.099046.3.579.2.173 1994 Unknown [id number] 2.16.8 40.1.912097.3.579.2.173 1994 Unknown [id number] 2.16.8 40.1.015016.3.579.2.173 1994 Unknown [id number] 2.16.8 40.1.856513.3.579.2.173 1994 Unknown [id number] 2.16.84 0.1.822302.3.579.2.593 1994 Unknown [id number] 2.16.84 0.1.387889.3.579.2.593 1994 Unknown [id number] 2.16.84 0.1.093862.3.579.2.593 1994 Unknown [id number] 2.16.84 0.1.716359.3.579.2.593 1994 Unknown [id number] 2.16.84 0.1.406359.3.579.2.593 1994 Unknown [id number] 2.16.84 0.1.210155.3.579.2.593 1994 Unknown [id number] 2.16.84 0.1.294086.3.579.2.593 1994 Unknown [id number] 2.16.84 0.1.284032.3.579.2.593 1994 Unknown [id number] 2.16.84 0.1.991032.3.579.2.593 1994 Unknown [id number] 2.16.84 0.1.140933.3.579.2.593 1994 Unknown [id number] 2.16.84 0.1.090723.3.579.2.593 1994 Unknown [id number] 2.16.84 0.1.560566.3.579.2.593 1994 Unknown [id number] 2.16.84 0.1.921951.3.579.2.1259 1994 Unknown [id number] 2.16.84 0.1.270489.3.579.2.1259 1994 Unknown [id number] 2.16.84 0.1.166239.3.579.2.9 1994 Unknown [id number] 2.16.84 0.1.391134.3.579.2.9 1994 Unknown [id number] 2.16.84 0.1.880083.3.579.2.1259 1994 Unknown [id number] 2.16.840 .1.663479.3.579.2.9 1994 Unknown [id number] 2.16.840 .1.063028.3.579.2.1259 1994 Unknown [id number] 2.16.840 .1.112372.3.579.2.9 1994 Unknown [id number] 2.16.840 .1.952348.3.579.2.9 1994 Unknown [id number] 2.16.840. 1.953875.3.579.2.1259 1959 Self-pay [id number] 1959 Unknown [id number] 1. 2.840.[id number] Social History Date Type Detail Facility Start: 02-28-2021 End: 06-16-2021 Tobacco smoking status [facility] Never smoker [employer] Phone: Start: 02-28-2021 End: 06-16-2021 Tobacco use and exposure Never used [employer] Phone: Start: 1995 Sex Assigned At Not on file [facility]: Exposure to SARS-CoV -2 (event) Not sure [facility] Phone: Start: 12-07-2020 Shani NavigatorMD Work Phone: Start: 05-18-2021 End: 06-16-2021 Alcohol intake Ex-drinker (finding) [employer] Work Phone: History of Present illness Narrative [...] and TOCO. Orders received to discharge home. [facility] notified via telephone requesting pt's blood [...] placed on monitor. documented in this encounter [employer] Phone: History of Present illness Narrative 05-18-2021 Erinn Simms RN - 05/18/2021 10:06 AM EDT Note Date & Type Note Facility 05-18-2021 History of Present illness Narrative Obstetrical outpatient discharge instructions explained to pt, pt v.u. Pt instructed to brain picker keflex and zofran prescriptions at [facility] in [place], pt v.u. documented in this encounter [facility] Phone: Hospital Discharge instructions 03-23-2021 Instructions Note [...] ANY other concerns. documented in this encounter [employer] Phone: Evaluation note Note Date & Type Note Facility Evaluation note Diagnosis Leg swelling- Primary Swelling of limb documented in this encounter [employer] Phone: Evaluation note Note Date & Type Note Facility Evaluation note Diagnosis Nausea and vomiting during - Primary documented in this encounter [employer] Phone: Evaluation note Note Date & Type Note Facility Evaluation note Diagnosis Decreased movement affecting management of mother, antepartum documented in this encounter [facility] Phone: Hospital Discharge instructions Attachments Note Date & Type Note Facility Hospital Discharge instructions The following attachments cannot be sent through Care Everywhere.: Hyperemesis Gravidarum (Armenian)Nausea and Vomiting (Armenian)documented in this encounter [facility] Phone: Hospital Discharge instructions Instructions Note Date & Type Note Facility Hospital Discharge instructions Erinn Simms RN - 05/18/[address] Liss Tapia [facility] Dr. Alondra Obrien CN [address] [facility] [address] [facility] [address] Alondra Carrillo CN [address] [place] [address] [phone] Therese Villatoro, MSN, [employer], CNM [place] [id number] . [facility] [address] [address] [facility] [address] Richar Rob CN [address] [place] [address] [place] [address] Gabbie Junior CNM [address] [place] [address] [place] [address] [phone] ACTIVITY LIMITATIONS: ( x )Up and about [...] OF EMERGENCY CONTACT LABOR AND DELIVERY . BOOKER PRESCRIPTIONS AT [facility] TODAY AND TAKE PRESCRIBED. KEFLEX TO BE TAKEN AT 2:30PM FOR FIRST DOSE. documented in this encounter [facility] Phone: Hospital Discharge instructions Instructions Note Date & Type Note Facility Hospital Discharge instructions Fiona Gilliland RN - 05/25/[address] Liss Tapia [facility] Dr. Alondra Obrien CN [address] [facility] [address] [facility] [address] Alondra CHENEY Rhoda Lorena CN [address] [place] [address] [phone] Therese Villatoro, MSN, [employer], CNM [facility] [address] [facility] [address] [address] [facility] [address] Richar Rob CN [address] [place] [address] [place] [address] Gabbie Junior CN [address] [place] [address] [place] [address] [phone] ACTIVITY LIMITATIONS: ( x )Up and about [...] AND DELIVERY . documented in this encounter [employer] Phone: Hospital Discharge instructions Instructions Note Date & Type Note Facility Hospital Discharge instructions Allyson Joel RN - 06/17/[address] iLss Tapia [facility] Dr. Alondra Obrien [facility] [address] [facility] [address] [facility] [address] Alondra Carrillo [facility] [address] [place] [address] [phone] ACTIVITY LIMITATIONS: ( x )Up and about [...] AND DELIVERY . documented in this encounter [employer] Phone: Discharge Instructions * Instructions* Meche Blood MD - 02/28/2021 Take Keflex as directed until complete. Make sure to stay well-hydrated. Follow- up with your OB. Seek medical attention immediately for any worsening pain or any other acute concerns. * Attachments The following attachments cannot be sent through Care Everywhere. * Abdominal Pain (Armenian) * : PROM: General Info (Armenian) * UTI (Urinary Tract Infection): Female (Armenian) documented in this encounter Assessments Diagnosis Abdominal pain, unspecified abdominal location- Primary Urinary tract infection without hematuria, site unspecified Intrauterine Reason for Referral Status Reason Specialty Diagnoses / Procedures Referre d By Contact Referred To Contact [facility] Diagnoses Leg swelling Procedures VL DUP LOWER EXTREMITY VENOUS BILATERAL Lidia Núñez MD [address] [place] [address] Advance Directives No Advanced Directives Records FoundLatest [...] dose 0835 (Given - Provid er: Martha Tatmu RN) Continuous Medication Order 05/16/2021 05/17/2021 05/18/2021 lactated ringers infusion Intravenous, at 999 mL/hr, CONTINUOUS, Starting on Sun05/18/21 at 0830 0820 (New Bag - Prov ider: Martha Tatum RN)0950 (Stopped - Provider: Erinn Simms RN) INFORMATION SOURCE (unrecogn ized section and content) DATE CREATED AUTHOR 06/19/2021 [facility] DATE CREATED AUTHOR AUTHOR'S ORGANIZ ATION 05/07/2023 [facility] DATE CREATED AUTHOR AUTHOR'S ORGANIZ ATION 05/07/2024 [facility] FOR RECORDS PERTAINING TO PATIENTS WHO ARE [...] BE BASED ON THE PRIMARY CLINICAL RECORDS. [facility] [employer] provides no warranty or guarantee of the accuracy or completeness of information in this document.
== END 2024-06-26 16:55 | disposition home or self-care (01) ==
PROVIDERS: Visit Provider Physician Assistant
DX: Z34.81 Encounter for supervision of other normal pregnancy, first trimester (principal)
CPT/HCPCS: 83036; 86592; 86762; 86803; 86850; 86900; 86901; 87086; 87340; 87389

== ENCOUNTER 2024-06-30 16:57 | Outpatient (OUT) | payer OTHER, SELFPAY ==
--- OUTSIDE RECORDS SUMMARY | 2024-06-30 17:03 | XMS_ITS | CCD ---
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 Name Role Phone Unavailable Primary Care Provider [...] Unavailable RIGO ., DR GUARDADO Attending Unavailable [place], DR AMNA [employer] Unavailable RIGO ., [...] Admitting Unavailable MARIO ., ARSH Attending Unavailable [facility], DR ALLRED Primary Care Unavailable MARIO ., [...] Latex (5 sources) Latex Substance Allergy 1 [facility] (1 source) Latex Propensity to adverse reactions to drug 1 [facility] Work Phone: (1 source) Latex Drug allergy (disorder) [facility] Medications Current Medications Medication Drug Class(es) [...] on 04-18-2023 HBsAg Screen Negative Normal Negative [facility] Comment on above: Performed By: #### H BSANS #### [facility] [address] [place] [address] Dr. Josh Jacinto HEPATITIS C VIRUS AB W/ REFL EX QUANTon 04-18-2023 HCV AB Non-Reactive Normal Non Reactive [facility] Comment on above: Performed By: #### H CVPCRR #### [facility] [address] [place] [address] Dr. Josh Jacinto HIV 1 AND 2 WITH REFLEXon HIV Screen 4th Generation wRfx Non-Reactive Normal Non Reactive [facility] Comment on above: Result Comment: HIV Negative HIV-1/HIV-2 antibodies and HIV-1 p24 antigen were NOT detected. There is no laboratory evidence of HIV infection. Performed By: #### B OX #### [facility] [address] [place] [address] Dr. Josh Jacinto RPR QUANTon 04-18-2023 Rapid Plasma Reagin, Quant Non-Reactive Normal NonRea<1:1 [facility] Comment on above: Result Comment: Plea se Note: This test does not meet current guidelines for screening and diagnosis of syphilis. This test is intended for following treatment response in patients being treated for syphilis infection. To screen for syphilis infection, a reflex cascade that includes both RPR and a treponema-specific assay should be utilized, such as Treponema pallidum (Syphilis) Screening [place] (774473) or Rapid Plasma Reagin (RPR) Test With Reflex to Quantitative RPR and Confirmatory Treponema pallidum Antibodies (585099). Performed By: #### B OX #### [facility] [address] [place] [address] Dr. Josh Jacinto RUBELLA AB IGGon 04-18-2023 Rubella Antibodies, IgG 1.84 index Normal Immune >0.99 [facility] Comment on above: Result Comment: Non- immune <0.90 Equivocal 0.90 - 0.99 Immune >0.99 Performed By: #### H CGSUB #### [facility] [address] [place] [address] Dr. Josh Jacinto BOX TEST SENT OUTon 04-16-20 23 SENT TO REF LAB 04/17/[address] [facility] Comment on above: Performed By: #### B OX #### [facility] [address] [place] [address] Dr. Josh Jacinto CBC AUTO DIFFon 04-16-2023 BASO # 0.0 103/ul Normal 0.0-0.1 [facility] Comment on above: Performed By: #### B OX #### [facility] [address] [address] [address] Josh Jacinto Basophils/100 WBC (Bld) 0.2 % Normal 0.2-2.0 [facility] Comment on above: Performed By: #### B OX #### [facility] [address] [address] [address] Josh Jacinto EO # 0.1 103/ul Normal 0.0-0.7 [facility] Comment on above: Performed By: #### B OX #### [facility] [address] [place] [address] Dr. Josh Jacinto Eosinophils/100 WBC (Bld) 0.6 % Critically low 0.9-7.0 [facility] Comment on above: Performed By: #### B OX #### [facility] [address] [place] [address] Dr. Josh Jacinto Erythrocyte distribution width (RBC) [Ratio] 13.4 % Normal 11.0-15.0 [facility] Comment on above: Performed By: #### B OX #### [facility] [address] [place] [address] Dr. Josh Jacinto Hematocrit (Bld) [Volume fraction] 36.9 % Normal 36.0-48.0 [facility] Comment on above: Performed By: #### B OX #### [facility] [address] [place] [address] Dr. Josh Jacinto Hemoglobin (Bld) [Mass/Vol] 12.4 g/dL Normal 12.0-16.0 [facility] Comment on above: Performed By: #### B OX #### [facility] [address] [place] [address] Dr. Josh Jacinto IG # 0.02 10e3/ul Normal 0.00-0.03 [facility] Comment on above: Performed By: #### B OX #### [facility] [address] [place] [address] Dr. Josh Jacinto IG % 0.2 % Normal 0.0-0.5 [facility] Comment on above: Performed By: #### B OX #### [facility] [address] [place] [address] Dr. Josh Jacinto LYMPH # 2.3 103/ul Normal 1.2-3.8 [facility] Comment on above: Performed By: #### B OX #### [facility] [address] [place] [address] Dr. Josh Jacinto Lymphocytes/100 WBC (Bld) 19.4 % Critically low 20.5-60.0 [facility] Comment on above: Performed By: #### B OX #### [facility] [address] [place] [address] Dr. Josh Jaicnto MANUAL DIFF REQ NO Normal [facility] Comment on above: Performed By: #### B OX #### [facility] [address] [place] [address] Dr. Josh Jacinto MCH (RBC) [Entitic mass] 29.6 pg Normal 26.7-34.0 [facility] Comment on above: Performed By: #### B OX #### [facility] [address] [place] [address] Dr. Josh Jacinto MCHC (RBC) [Mass/Vol] 33.6 g/dL Normal 29.9-35.2 [facility] Comment on above: Performed By: #### B OX #### [facility] [address] [place] [address] Dr. Josh Jacinto MCV (RBC) [Entitic vol] 88.1 fL Normal 81.0-99.0 [facility] Comment on above: Performed By: #### B OX #### [facility] [address] [place] [address] Dr. Josh Jacinto MONO # 0.6 103/ul Normal 0.3-0.8 [facility] Comment on above: Performed By: #### B OX #### [facility] [address] [place] [address] Dr. Josh Jacinto Monocytes/100 WBC (Bld) 5.1 % Normal 1.7-12.0 [facility] Comment on above: Performed By: #### B OX #### [facility] [address] [place] [address] Dr. Josh Jacinto NEUT # 9.0 103/ul Critically high 1.4-6.5 [facility] Comment on above: Performed By: #### B OX #### [facility] [address] [place] [address] Dr. Josh Jacinto Neutrophils/100 WBC (Bld) 74.5 % Normal 43.0-75.0 [facility] Comment on above: Performed By: #### B OX #### [facility] [address] [place] [address] Dr. Josh Jacinto Platelet mean volume (Bld) [Entitic vol] 10.1 fL Normal 9.5-13.5 [facility] Comment on above: Performed By: #### B OX #### [facility] [address] [place] [address] Dr. Josh Jacinto PLT 337 103/ul Normal 150-450 [facility] Comment on above: Performed By: #### B OX #### [facility] [address] [place] [address] Dr. Josh Jacinto RBC 4.19 106/ul Critically low 4.20-5.40 [facility] Comment on above: Performed By: #### B OX #### [facility] [address] [place] [address] Dr. Josh Jacinto WBC 12.0 103/ul Critically high 4.0-11.0 [facility] Comment on above: Performed By: #### B OX #### [facility] [address] [place] [address] Dr. Josh Jacinto CULTURE URINEon 04-16-2023 CULTURE URINE Culture Observations: NO GROWTH. Normal [facility] Comment on above: Performed By: #### H CGSUB #### [facility] [address] [place] [address] Dr. Josh Jacinto GLYCOHEMOGLOBIN A1Con 2022 [facility] RECOMMENDATION SEE BELOW Normal [facility] Comment on above: Result Comment: ADA RECOMMENDED LIMIT 4.0 - 6.0 [facility] THERAPEUTIC TARGET < 7.0 ACTION SUGGESTED > 7.0 Performed By: #### H CVPCRR #### [facility] [address] [address] [address] Josh Jacinto Glucose [Mass/Vol] 91 mg/dL Normal [facility] Comment on above: Performed By: #### H CVPCRR #### [facility] [address] [place] [address] Dr. Josh Jacinto HbA1c (Bld) [Mass fraction] 4.8 % Normal 4.5-6.2 [facility] Comment on above: Performed By: #### H CVPCRR #### [facility] [address] [place] [address] Dr. Josh Jacinto TSHon 04-16-2023 TSH 1.700 uIU/mL Normal 0.358-3.740 [facility] Comment on above: Performed By: #### H CGSUB #### [facility] [address] [place] [address] Dr. Josh Jacinto TYPE AND SCREENon 04-16-2023 TYPE AND SCREEN Negative Normal [facility] Comment on above: Performed By: #### H CGSUB #### [facility] [address] [place] [address] Dr. Josh Jacinto US PREG TVon 04-13-2023 US PREG TV EXAMINATION: US PREG TV HISTORY: Pain TECHNIQUE: Grayscale and color Doppler sonographic evaluation of the uterus and adnexa was performed utilizing a transvaginal approach only. COMPARISON: 04/06/2023 FINDINGS: Uterus: Size: Normal Orientation:Antevert ed Intrauterine Gestational Sac: Present Yolk Sac: Present Pole: Present. [place]-rump length measures 2.1 cm, 8 weeks 5 [...] ANANT ERIC Date: 2023-04-13 20:47 Normal [facility] US PREG TVon 04-06-2023 US PREG TV [...] ROXY TOBIAS Date: 2023-04-06 10:05 Normal [facility] CBC AUTO DIFFon 10-13-2022 BASO # 0.0 103/ul Normal 0.0-0.1 [facility] Comment on above: Performed By: #### H CVPCRR #### [facility] [address] [place] [address] Dr. Josh Jacinto Basophils/100 WBC (Bld) 0.4 % Normal 0.2-2.0 [facility] Comment on above: Performed By: #### H CVPCRR #### [facility] [address] [place] [address] Dr. Josh Jacinto EO # 0.1 103/ul Normal 0.0-0.7 [facility] Comment on above: Performed By: #### H CVPCRR #### [facility] [address] [place] [address] Dr. Josh Jacinto Eosinophils/100 WBC (Bld) 1.2 % Normal 0.9-7.0 [facility] Comment on above: Performed By: #### H CVPCRR #### [facility] [address] [place] [address] Dr. Josh Jacinto Erythrocyte distribution width (RBC) [Ratio] 12.7 % Normal 11.0-15.0 [facility] Comment on above: Performed By: #### H CVPCRR #### [facility] [address] [place] [address] Dr. Josh Jacinto Hematocrit (Bld) [Volume fraction] 39.3 % Normal 36.0-48.0 [facility] Comment on above: Performed By: #### H CVPCRR #### [facility] [address] [place] [address] Dr. Josh Jacinto Hemoglobin (Bld) [Mass/Vol] 13.1 g/dL Normal 12.0-16.0 [facility] Comment on above: Performed By: #### H CVPCRR #### [facility] [address] [place] [address] Dr. Josh Jacinto IG # 0.02 10e3/ul Normal 0.00-0.03 [facility] Comment on above: Performed By: #### H CVPCRR #### [facility] [address] [place] [address] Dr. Josh Jacinto IG % 0.3 % Normal 0.0-0.5 [facility] Comment on above: Performed By: #### H CVPCRR #### [facility] [address] [place] [address] Dr. Josh Jacinto LYMPH # 2.1 103/ul Normal 1.2-3.8 [facility] Comment on above: Performed By: #### H CVPCRR #### [facility] [address] [place] [address] Dr. Josh Jacinto Lymphocytes/100 WBC (Bld) 28.8 % Normal 20.5-60.0 [facility] Comment on above: Performed By: #### H CVPCRR #### [facility] [address] [place] [address] Dr. Josh Jacinto MANUAL DIFF REQ NO Normal The [facility] Comment on above: Performed By: #### H CVPCRR #### [facility] [address] [place] [address] Dr. Josh Jacinto MCH (RBC) [Entitic mass] 28.9 pg Normal 26.7-34.0 [facility] Comment on above: Performed By: #### H CVPCRR #### [facility] [address] [place] [address] Dr. Josh Jacinto MCHC (RBC) [Mass/Vol] 33.3 g/dL Normal 29.9-35.2 [facility] Comment on above: Performed By: #### H CVPCRR #### [facility] [address] [place] [address] Dr. Josh Jacinto MCV (RBC) [Entitic vol] 86.6 fL Normal 81.0-99.0 [facility] Comment on above: Performed By: #### H CVPCRR #### [facility] [address] [place] [address] Dr. Josh Jacinto MONO # 0.6 103/ul Normal 0.3-0.8 [facility] Comment on above: Performed By: #### H CVPCRR #### [facility] [address] [place] [address] Dr. Josh Jacinto Monocytes/100 WBC (Bld) 8.7 % Normal 1.7-12.0 [facility] Comment on above: Performed By: #### H CVPCRR #### [facility] [address] [place] [address] Dr. Josh Jacinto NEUT # 4.4 103/ul Normal 1.4-6.5 [facility] Comment on above: Performed By: #### H CVPCRR #### [facility] [address] [place] [address] Dr. Josh Jacinto Neutrophils/100 WBC (Bld) 60.6 % Normal 43.0-75.0 [facility] Comment on above: Performed By: #### H CVPCRR #### [facility] [address] [place] [address] Dr. Josh Jacinto Platelet mean volume (Bld) [Entitic vol] 10.0 fL Normal 9.5-13.5 [facility] Comment on above: Performed By: #### H CVPCRR #### [facility] [address] [place] [address] Dr. Josh Jacinto PLT 327 103/ul Normal 150-450 [facility] Comment on above: Performed By: #### H CVPCRR #### [facility] [address] [place] [address] Dr. Josh Jacinto RBC 4.54 106/ul Normal 4.20-5.40 [facility] Comment on above: Performed By: #### H CVPCRR #### [facility] [address] [place] [address] Dr. Josh Jacinto WBC 7.2 103/ul Normal 4.0-11.0 [facility] Comment on above: Performed By: #### H CVPCRR #### [facility] [address] [place] [address] Dr. Josh Jacinto ER URINE PROFILEon 2 Bilirubin Ql (U) Negative Normal NEGATIVE [facility] Comment on above: Performed By: #### H CVPCRR #### [facility] [address] [place] [address] Dr. Josh Jacinto Clarity (U) CLEAR Normal CLEAR [facility] Comment on above: Performed By: #### H CVPCRR #### [facility] [address] [place] [address] Dr. Josh Jacinto Color (U) LT. YELLOW Normal YELLOW [facility] Comment on above: Performed By: #### H CVPCRR #### [facility] [address] [place] [address] Dr. Josh Jacinto ERUEdd A micrscopic examination will be performed if indicated. Normal [facility] Comment on above: Performed By: #### H CVPCRR #### [facility] [address] [place] [address] Dr. Josh Jacinto Glucose Ql (U) Negative Normal NEGATIVE [facility] Comment on above: Performed By: #### H CVPCRR #### [facility] [address] [place] [address] Dr. Josh Jacinto Hemoglobin Ql (U) LARGE Abnormal NEGATIVE [facility] Comment on above: Performed By: #### H CVPCRR #### [facility] [address] [address] [address] Josh Jacinto Ketones Ql (U) Negative Normal NEGATIVE [facility] Comment on above: Performed By: #### H CVPCRR #### [facility] [address] [place] [address] Dr. Josh Jacinto LEUKOCYTES Negative Normal NEGATIVE [facility] Comment on above: Performed By: #### H CVPCRR #### [facility] [address] [place] [address] Dr. Josh Jacinto Nitrite Ql (U) Negative Normal NEGATIVE [facility] Comment on above: Performed By: #### H CVPCRR #### [facility] [address] [place] [address] Dr. Josh Jacinto pH (U) 6.5 [pH] Normal 5-9 [facility] Comment on above: Performed By: #### H CVPCRR #### [facility] [address] [address] [address] Josh Jacinto SPEC GRAVITY 1.010 Normal 1.005-<=1.025 [facility] Comment on above: Performed By: #### H CVPCRR #### [facility] [address] [place] [address] Dr. Josh Jacinto UA PROTEIN Negative Normal NEGATIVE/ TRACE [facility] Comment on above: Performed By: #### H CVPCRR #### [facility] [address] [place] [address] Dr. Josh Jacinto UR MICRO IND INDICATED Normal [facility] Comment on above: Performed By: #### H CVPCRR #### [facility] [address] [place] [address] Dr. Josh Jacinto Urobilinogen Qn (U) 0.2 {Pio'U}/dL Normal 0.2 - 1. 0 [facility] Comment on above: Performed By: #### H CVPCRR #### [facility] [address] [place] [address] Dr. Josh Jacinto PREG QUANT HCGon 10-13-2022 HCG QUANT 4 mIU/mL Normal [facility] Comment on above: Performed By: #### P REGQNT #### [facility] [address] [place] [address] Dr. Josh Jacinto HCG RANGE SEE BELOW Normal [facility] Comment on above: Result Comment: 5-50 0.2-1 WEEK 50-500 1-2 WEEKS 100-5,000 2-3 WEEKS 500-10,000 3-4 WEEKS 1,000-50,000 4-5 WEEKS 10,000-100,000 5-6 WEEKS 15,000-200,000 6-8 WEEKS 10,000-100,000 2-3 MONTHS Performed By: #### P REGQNT #### [facility] [address] [place] [address] Dr. Josh Jacinto PROTIMEon 10-13-2022 INR Coag (PPP) [Relative time] 1.29 {INR} Normal [facility] Comment on above: Performed By: #### H CVPCRR #### [facility] [address] [place] [address] Dr. Josh Jacinto INR GUIDELINES SEE BELOW Normal [facility] Comment on above: Result Comment: PASCUAL RED INR: 2.0 - 3.0 CONDITIONS NOT LISTED BELOW 2.5 - 3.5 FOR PROSTHETIC HEART VALVE REPLACEMENT 2.5 - 3.5 RECURRENT THROMBOSIS Performed By: #### H CVPCRR #### [facility] [address] [place] [address] Dr. Josh Jacinto PT Coag (PPP) [Time] 13.7 s Critically high 9.0-11.6 [facility] Comment on above: Performed By: #### H CVPCRR #### [facility] [address] [place] [address] Dr. Josh Jacinto PTTon 10-13-2022 aPTT Coag (Bld) [Time] 25.1 s Normal 22.3-36.2 Th [facility] Comment on above: Performed By: #### H CVPCRR #### [facility] [address] [place] [address] Dr. Josh Jacinto URINE MICROSCOPIC ONLYon BACTERIA NONE SEEN Normal NONE SEEN [facility] Comment on above: Performed By: #### H CVPCRR #### [facility] [address] [place] [address] Dr. Josh Jacinto Bacteria identified Cx Nom (U) NOT INDICATED Normal [facility] Comment on above: Performed By: #### H CVPCRR #### [facility] [address] [place] [address] Dr. Josh Jacinto CAST NONE SEEN Normal NONE SEEN [facility] Comment on above: Performed By: #### H CVPCRR #### [facility] [address] [place] [address] Dr. Josh Jacinto Crystals LM Nom (Urine sed) NONE SEEN Normal NONE SEEN [facility] Comment on above: Performed By: #### H CVPCRR #### [facility] [address] [place] [address] Dr. Josh Jacinto Epithelial cells LM Ql (Urine sed) MODERATE Abnormal NONE SEEN /RARE [facility] Comment on above: Performed By: #### H CVPCRR #### [facility] [address] [place] [address] Dr. Josh Jacinto MUCOUS NONE SEEN Normal NONE SEEN [facility] Comment on above: Performed By: #### H CVPCRR #### [facility] [address] [place] [address] Dr. Josh Jacinto RBC 10-20 Abnormal 0-2 [facility] Comment on above: Performed By: #### H CVPCRR #### [facility] [address] [place] [address] Dr. Josh Jacinto WBC 0-2 Abnormal NONE SEEN [facility] Comment on above: Performed By: #### H CVPCRR #### [facility] [address] [place] [address] Dr. Josh Jacinto US PREG TVon 10-13-2022 [...] AMNA VALLADARES Date: 2022-10-13 08:40 Normal [facility] CBC AUTO DIFFon 10-09-2022 BASO # 0.0 103/ul Normal 0.0-0.1 [facility] Comment on above: Performed By: #### H CVPCRR #### [facility] [address] [place] [address] Dr. Josh Jacinto Basophils/100 WBC (Bld) 0.3 % Normal 0.2-2.0 [facility] Comment on above: Performed By: #### H CVPCRR #### [facility] [address] [place] [address] Dr. Josh Jacinto EO # 0.0 103/ul Normal 0.0-0.7 [facility] Comment on above: Performed By: #### H CVPCRR #### [facility] [address] [place] [address] Dr. Josh Jacinto Eosinophils/100 WBC (Bld) 0.4 % Critically low 0.9-7.0 [facility] Comment on above: Performed By: #### H CVPCRR #### [facility] [address] [place] [address] Dr. Josh Jacinto Erythrocyte distribution width (RBC) [Ratio] 12.7 % Normal 11.0-15.0 [facility] Comment on above: Performed By: #### H CVPCRR #### [facility] [address] [place] [address] Dr. Josh Jacinto Hematocrit (Bld) [Volume fraction] 39.0 % Normal 36.0-48.0 [facility] Comment on above: Performed By: #### H CVPCRR #### [facility] [address] [place] [address] Dr. Josh Jacinto Hemoglobin (Bld) [Mass/Vol] 13.1 g/dL Normal 12.0-16.0 [facility] Comment on above: Performed By: #### H CVPCRR #### [facility] [address] [place] [address] Dr. Josh Jacinto IG # 0.03 10e3/ul Normal 0.00-0.03 [facility] Comment on above: Performed By: #### H CVPCRR #### [facility] [address] [place] [address] Dr. Josh Jacinto IG % 0.3 % Normal 0.0-0.5 [facility] Comment on above: Performed By: #### H CVPCRR #### [facility] [address] [place] [address] Dr. Josh Jacinto LYMPH # 2.0 103/ul Normal 1.2-3.8 [facility] Comment on above: Performed By: #### H CVPCRR #### [facility] [address] [place] [address] Dr. Josh Jacinto Lymphocytes/100 WBC (Bld) 18.4 % Critically low 20.5-60.0 [facility] Comment on above: Performed By: #### H CVPCRR #### [facility] [address] [place] [address] Dr. Josh Jacinto MANUAL DIFF REQ NO Normal [facility] Comment on above: Performed By: #### H CVPCRR #### [facility] [address] [place] [address] Dr. Josh Jacinto MCH (RBC) [Entitic mass] 29.0 pg Normal 26.7-34.0 [facility] Comment on above: Performed By: #### H CVPCRR #### [facility] [address] [place] [address] Dr. Josh Jacinto MCHC (RBC) [Mass/Vol] 33.6 g/dL Normal 29.9-35.2 [facility] Comment on above: Performed By: #### H CVPCRR #### [facility] [address] [place] [address] Dr. Josh Jacinto MCV (RBC) [Entitic vol] 86.5 fL Normal 81.0-99.0 [facility] Comment on above: Performed By: #### H CVPCRR #### [facility] [address] [place] [address] Dr. Josh Jacinto MONO # 0.8 103/ul Normal 0.3-0.8 [facility] Comment on above: Performed By: #### H CVPCRR #### [facility] [address] [place] [address] Dr. Josh Jacinto Monocytes/100 WBC (Bld) 7.1 % Normal 1.7-12.0 [facility] Comment on above: Performed By: #### H CVPCRR #### [facility] [address] [place] [address] Dr. Josh Jacinto NEUT # 8.1 103/ul Critically high 1.4-6.5 [facility] Comment on above: Performed By: #### H CVPCRR #### [facility] [address] [place] [address] Dr. Josh Jacinto Neutrophils/100 WBC (Bld) 73.5 % Normal 43.0-75.0 [facility] Comment on above: Performed By: #### H CVPCRR #### [facility] [address] [place] [address] Dr. Josh Jacinto Platelet mean volume (Bld) [Entitic vol] 10.4 fL Normal 9.5-13.5 [facility] Comment on above: Performed By: #### H CVPCRR #### [facility] [address] [place] [address] Dr. Josh Jacinto PLT 329 103/ul Normal 150-450 [facility] Comment on above: Performed By: #### H CVPCRR #### [facility] [address] [place] [address] Dr. Josh Jacinto RBC 4.51 106/ul Normal 4.20-5.40 [facility] Comment on above: Performed By: #### H CVPCRR #### [facility] [address] [place] [address] Dr. Josh Jacinto WBC 11.0 103/ul Normal 4.0-11.0 [facility] Comment on above: Performed By: #### H CVPCRR #### [facility] [address] [place] [address] Dr. Josh Jacinto CULTURE URINEon 10-09-2022 CULTURE URINE Culture Observations: NO GROWTH. Normal [facility] Comment on above: Performed By: #### H CGSUB #### [facility] [address] [place] [address] Dr. Josh Jacinto ER URINE PROFILEon Bilirubin Ql (U) Negative Normal NEGATIVE [facility] Comment on above: Performed By: #### H CVPCRR #### [facility] [address] [place] [address] Dr. Josh Jacinto Clarity (U) CLEAR Normal CLEAR [facility] Comment on above: Performed By: #### H CVPCRR #### [facility] [address] [place] [address] Dr. Josh Jacinto Color (U) LT. YELLOW Normal YELLOW [facility] Comment on above: Performed By: #### H CVPCRR #### [facility] [address] [place] [address] Dr. Josh LOWEEdd A micrscopic examination will be performed if indicated. Normal [facility] Comment on above: Performed By: #### H CVPCRR #### [facility] [address] [place] [address] Dr. Josh Jacinto Glucose Ql (U) Negative Normal NEGATIVE [facility] Comment on above: Performed By: #### H CVPCRR #### [facility] [address] [place] [address] Dr. Josh Jacinto Hemoglobin Ql (U) TRACE-LYSED Abnormal NEGATIVE [facility] Comment on above: Performed By: #### H CVPCRR #### [facility] [address] [place] [address] Dr. Josh Jacinto Ketones Ql (U) Negative Normal NEGATIVE [facility] Comment on above: Performed By: #### H CVPCRR #### [facility] [address] [place] [address] Dr. Josh Jacinto LEUKOCYTES SMALL Abnormal NEGATIVE [facility] Comment on above: Performed By: #### H CVPCRR #### [facility] [address] [place] [address] Dr. Josh Jacinto Nitrite Ql (U) Negative Normal NEGATIVE [facility] Comment on above: Performed By: #### H CVPCRR #### [facility] [address] [place] [address] Dr. Josh Jacinto pH (U) 6.0 [pH] Normal 5-9 [facility] Comment on above: Performed By: #### H CVPCRR #### [facility] [address] [place] [address] Dr. Josh Jacinto SPEC GRAVITY 1.015 Normal 1.005-<=1.025 [facility] Comment on above: Performed By: #### H CVPCRR #### [facility] [address] [place] [address] Dr. Josh Jacinto UA PROTEIN Negative Normal NEGATIVE/ TRACE [facility] Comment on above: Performed By: #### H CVPCRR #### [facility] [address] [place] [address] Dr. Josh Jacinto UR MICRO IND INDICATED Normal [facility] Comment on above: Performed By: #### H CVPCRR #### [facility] [address] [place] [address] Dr. Josh Jacinto Urobilinogen Qn (U) 0.2 {Pio'U}/dL Normal 0.2 - 1. 0 [facility] Comment on above: Performed By: #### H CVPCRR #### [facility] [address] [place] [address] Dr. Josh Jacinto LIPASEon 10-09-2022 Lipase [Catalytic activity/Vol] 128.0 U/L Normal 73.0-393.0 [facility] Comment on above: Performed By: #### C MP, LIPA, HSTROPN #### [facility] [address] [place] [address] Dr. Josh Jacinto MONOon 10-09-2022 Monocytes (Bld) [#/Vol] Negative Normal NEGATIVE T [facility] Comment on above: Performed By: #### B OX #### [facility] [address] [place] [address] Dr. Josh Jacinto PREG HCG QUALon 10-09-2022 , QUAL Positive Abnormal NEGATIVE [facility] Comment on above: Performed By: #### B OX #### [facility] [address] [place] [address] Dr. Josh Jacinto PROF 14(COMP METB)on 022 Albumin [Mass/Vol] 3.6 g/dL Normal 3.4-5.0 [facility] Comment on above: Performed By: #### C MP, LIPA, HSTROPN #### [facility] [address] [place] [address] Dr. Josh Jacinto Albumin/Globulin [Mass ratio] 0.9 {ratio} Normal [facility] Comment on above: Performed By: #### C MP, LIPA, HSTROPN #### [facility] [address] [place] [address] Dr. Josh Jacinto ALP [Catalytic activity/Vol] 94 U/L Normal 46-116 [facility] Comment on above: Performed By: #### C MP, LIPA, HSTROPN #### [facility] [address] [place] [address] Dr. Josh Jacinto ALT [Catalytic activity/Vol] 22 U/L Normal 14-59 [facility] Comment on above: Performed By: #### C MP, LIPA, HSTROPN #### [facility] [address] [place] [address] Dr. Josh Jacinto Anion gap [Moles/Vol] 10.9 mmol/L Normal [facility] Comment on above: Performed By: #### C MP, LIPA, HSTROPN #### [facility] [address] [place] [address] Dr. Josh Jacinto AST [Catalytic activity/Vol] 13 U/L Critically low 15-37 [facility] Comment on above: Performed By: #### C MP, LIPA, HSTROPN #### [facility] [address] [place] [address] Dr. Josh Jacinto Bilirubin [Mass/Vol] 0.1 mg/dL Critically low 0.2-1.0 [facility] Comment on above: Performed By: #### C MP, LIPA, HSTROPN #### [facility] [address] [place] [address] Dr. Josh Jacinto Calcium [Mass/Vol] 9.0 mg/dL Normal 8.5-10.1 [facility] Comment on above: Performed By: #### C MP, LIPA, HSTROPN #### [facility] [address] [place] [address] Dr. Josh Jacinto Chloride [Moles/Vol] 105 mmol/L Normal 98-107 [facility] Comment on above: Performed By: #### C MP, LIPA, HSTROPN #### [facility] [address] [place] [address] Dr. Josh Jacinto CO2 [Moles/Vol] 23.5 mmol/L Normal 21.0-32.0 The [facility] Comment on above: Performed By: #### C MP, LIPA, HSTROPN #### [facility] [address] [place] [address] Dr. Josh Jacinto Creatinine [Mass/Vol] 0.68 mg/dL Normal 0.55-1.02 [facility] Comment on above: Performed By: #### C MP, LIPA, HSTROPN #### [facility] [address] [place] [address] Dr. Josh Jacinto EGFR-AF SOUTH KOREAN >60 Normal >=60 [facility] Comment on above: Performed By: #### C MP, LIPA, HSTROPN #### [facility] [address] [place] [address] Dr. Josh Jacinto EGFR-NON AF SOU[place] KOREAN >60 Normal >=60 [facility] Comment on above: Performed By: #### C MP, LIPA, HSTROPN #### [facility] [address] [place] [address] Dr. Josh Jacinto Globulin (S) [Mass/Vol] 4.1 g/dL Normal T [facility] Comment on above: Performed By: #### C MP, LIPA, HSTROPN #### [facility] [address] [address] [address] Josh Jacitno Glucose [Mass/Vol] 98 mg/dL Normal 74-106 [facility] Comment on above: Performed By: #### C MP, LIPA, HSTROPN #### [facility] [address] [address] [address] Josh Jacinto Potassium [Moles/Vol] 3.4 mmol/L Critically low 3.5-5.1 [facility] Comment on above: Performed By: #### C MP, LIPA, HSTROPN #### [facility] [address] [place] [address] Dr. Josh Jacinto Protein [Mass/Vol] 7.7 g/dL Normal 6.4-8.2 [facility] Comment on above: Performed By: #### C MP, LIPA, HSTROPN #### [facility] [address] [address] [address] Josh Jacinto Sodium [Moles/Vol] 136 mmol/L Normal 136-145 [facility] Comment on above: Performed By: #### C MP, LIPA, HSTROPN #### [facility] [address] [place] [address] Dr. Josh Jacinto Urea nitrogen [Mass/Vol] 14.0 mg/dL Normal 7.0-18.0 [facility] Comment on above: Performed By: #### C MP, LIPA, HSTROPN #### [facility] [address] [address] [address] Josh Jacinto Urea nitrogen/Creatinine [Mass ratio] 20.6 mg/mg Normal [facility] Comment on above: Performed By: #### C MP, LIPA, HSTROPN #### [facility] [address] [address] [address] Josh Jacinto TROPONIN, HIGH SENSITIVITYon 10-09-2022 HSTROP <4.0 Normal 4.0-51.3 [facility] Comment on above: Result Comment: CUT- OFF POINTS HAVE BEEN ESTABLISHED BASED ON THE FOURTH UNIVERSAL DEFINITIONS OF MYOCARDIAL INFARCTION. THE UPPER REFERENCE LIMIT (URL) OF TROPONIN, DEFINED THE 99TH PERCENTILE OF cTnI DISTRIBUTION IN A REFERENCE POPULATION, HAS BEEN CONFIRMED THE DECISION THRESHOLD FOR DE DIAGNOSIS. Performed By: #### C MP, LIPA, HSTROPN #### [facility] [address] [place] [address] Dr. oJsh Jacinto URINE MICROSCOPIC ONLYon BACTERIA TRACE Abnormal NONE SEEN [facility] Comment on above: Performed By: #### H CVPCRR #### [facility] [address] [place] [address] Dr. Josh Jacinto Bacteria identified Cx Nom (U) INDICATED Normal [facility] Comment on above: Performed By: #### H CVPCRR #### [facility] [address] [place] [address] Dr. Josh Jacinto CAST NONE SEEN Normal NONE SEEN [facility] Comment on above: Performed By: #### H CVPCRR #### [facility] [address] [place] [address] Dr. Josh Jacinto Crystals LM Nom (Urine sed) NONE SEEN Normal NONE SEEN [facility] Comment on above: Performed By: #### H CVPCRR #### [facility] [address] [place] [address] Dr. Josh Jacinto Epithelial cells LM Ql (Urine sed) MODERATE Abnormal NONE SEEN /RARE [facility] Comment on above: Performed By: #### H CVPCRR #### [facility] [address] [place] [address] Dr. Josh Jacinto MUCOUS NONE SEEN Normal NONE SEEN [facility] Comment on above: Performed By: #### H CVPCRR #### [facility] [address] [place] [address] Dr. Josh Jacinto RBC NONE SEEN Abnormal 0-2 [facility] Comment on above: Performed By: #### H CVPCRR #### [facility] [address] [place], [place] [id number] Dr. Josh Jacinto WBC 2-5 Abnormal NONE SEEN [facility] Comment on above: Performed By: #### H CVPCRR #### [facility] [address] [place] [address] Dr. Josh Jacinto ER URINE PROFILEon 2 Bilirubin Ql (U) Negative Normal NEGATIVE [facility] Comment on above: Performed By: #### P REGU, ERUR #### [facility] [address] [place] [address] Dr. Josh Jacinto Clarity (U) CLEAR Normal CLEAR [facility] Comment on above: Performed By: #### P REGU, ERUR #### [facility] [address] [place] [address] Dr. Josh Jacinto Color (U) LT. YELLOW Normal YELLOW [facility] Comment on above: Performed By: #### P REGU, ERUR #### [facility] [address] [place] [address] Dr. Josh Jacinto ERUAHD A micrscopic examination will be performed if indicated. Normal [facility] Comment on above: Performed By: #### P REGU, ERUR #### [facility] [address] [place] [address] Dr. Josh Jacinto Glucose Ql (U) Negative Normal NEGATIVE [facility] Comment on above: Performed By: #### P REGU, ERUR #### [facility] [address] [place] [address] Dr. Josh Jacinto Hemoglobin Ql (U) Negative Normal NEGATIVE The [facility] Comment on above: Performed By: #### P REGU, ERUR #### [facility] [address] [place] [address] Dr. Josh Jacinto Ketones Ql (U) Negative Normal NEGATIVE [facility] Comment on above: Performed By: #### P REGU, ERUR #### [facility] [address] [place] [address] Dr. Josh Jacinto LEUKOCYTES Negative Normal NEGATIVE [facility] Comment on above: Performed By: #### P REGU, ERUR #### [facility] [address] [place] [address] Dr. Josh Jacinto Nitrite Ql (U) Negative Normal NEGATIVE [facility] Comment on above: Performed By: #### P REGU, ERUR #### [facility] [address] [place] [address] Dr. Josh Jacinto pH (U) 6.0 [pH] Normal 5-9 [facility] Comment on above: Performed By: #### P REGU, ERUR #### [facility] [address] [place] [address] Dr. Josh Jacinto SPEC GRAVITY 1.010 Normal 1.005-<=1.[address] [facility] Comment on above: Performed By: #### P REGU, ERUR #### [facility] [address] [place] [address] Dr. Josh Jacinto UA PROTEIN Negative Normal NEGATIVE/ TRACE [facility] Comment on above: Performed By: #### P REGU, ERUR #### [facility] [address] [place] [address] Dr. Josh Jacinto UR MICRO IND NOT INDICATED Normal The [facility] Comment on above: Performed By: #### P REGU, ERUR #### [facility] [address] [place] [address] Dr. Josh Jacinto Urobilinogen Qn (U) 0.2 {Pio'U}/dL Normal 0.2 - 1. 0 [facility] Comment on above: Performed By: #### P REGU, ERUR #### [facility] [address] [place] [address] Dr. Josh Jacinto URon 09-14-2022 , QUAL Negative Normal NEGATIVE The [facility] Comment on above: Performed By: #### P REGU, ERUR #### [facility] [address] [place] [address] Dr. Josh Jacinto XR ABD FLAT UP_PA [...] by: JANICE KAUFMAN Date: 2022-09-14 02:39 Normal [facility] PAP ACOG PANEL 2: 20 to 28on 07-10-2022 . . Normal [facility] Comment on above: Performed By: #### H CGSUB #### [facility] [address] [address] [address] Josh Jacinto Age Gdln ACOG Testing - Normal [facility] Comment on above: Performed By: #### H CGSUB #### [facility] [address] [address] [address] Josh Jacinto DIAGNOSIS: Comment [facility] Comment on above: Result Comment: NEGA TIVE FOR INTRAEPITHELIAL LESION OR MALIGNANCY. Performed By: #### H CGSUB #### [facility] [address] [address] [address] Josh Jacinto Methodology: Comment Normal [facility] Comment on above: Result Comment: This liquid based ThinPrep(R) pap test was screened with the use of an image guided system. Performed By: #### H CGSUB #### [facility] [address] [address] [address] Josh Jacinto Note: Comment Normal [facility] Comment on above: Result Comment: The Pap smear is a screening test designed to aid in the detection of premalignant and malignant conditions of the uterine cervix. It is not a diagnostic procedure and should not be used as the sole means of detecting cervical cancer. Both false-positive and false-negative reports do occur. . Performed By: #### H CGSUB #### [facility] [address] [address] [address] Josh Jacinto Performed by: Comment Normal [facility] Comment on above: Result Comment: Aurora Salazar, Manager [employer] (ASCP) Performed By: #### H CGSUB #### [facility] [address] [place] [address] Dr. Josh Jacinto Reflex Criteria: Comment Normal [facility] Comment on above: Result Comment: The HPV DNA reflex criteria were not met with this specimen result therefore, no HPV testing was performed. . Performed By: #### H CGSUB #### [facility] [address] [address] [address] Josh Jacinto Specimen adequacy: Comment Normal [facility] Comment on above: Result Comment: Sati sfactory for evaluation. Endocervical and/or squamous metaplastic cells (endocervical component) are present. Performed By: #### H CGSUB #### [facility] [address] [place] [address] Dr. Josh Jacinto HCG-BETA SUBUNIT QUANTon hCG,Beta Subunit,Qnt,Serum <1 Normal [facility] Comment on above: Result Comment: Fema le (Non-) 0 - 5 (Postmenopausal) 0 - 8 . Female () Weeks of Gestation 3 6 - 71 4 10 - 750 5 217 - 7138 6 158 - 53813 7 [phone] 8 [phone] 10 [phone] 12 [phone] 14 19105 - 37095 15 85229 - 49751 16 6544 - [phone] 17 [phone] 18 [phone] Liana ECLIA methodology Performed By: #### H CGSUB #### [facility] [address] [place] [address] Dr. Josh Jacinto US PELVIS AND TRANSVAGon [...] by: AMNA VALLADARES Date: 2022-07-05 16:12 Normal [facility] Cult,Urineon 05-19-2021 Cult,Urine Specimen Description .CLEAN CATCH URINE Special Requests NOT REPORTED Culture NO SIGNIFICANT GROWTH Report Status FINAL 05/19/2021 Normal [facility] Comment on above: Performed By: #### S [facility] #### [employer] [address] [place] [address] Dial Painter: Collin De La Fuente MD Microscopic UrinalysisOrdere d By: Richar Obrien on 05-18-2021 - [facility] [employer] Work Phone: Amorphous, UA NOT REPORTED None [facility] Work Phone: Bacteria, UA 2+ Abnormal None [facility] Work Phone: Casts UA NOT REPORTED /LPF [facility] Work Phone: Crystals, UA NOT REPORTED None /HPF [facility] Work Phone: Epithelial Cells UA 5 TO 10 [facility] Work Phone: Interpretation and review of laboratory results Abnormal [facility] Work Phone: Mucus, UA 1+ Abnormal None [facility] [employer] Phone: Other Observations UA NOT REPORTED NOT REQ. M [facility] [employer] Work Phone: RBC, UA None [facility] Work Phone: Renal Epithelial, UA NOT REPORTED 0 /HPF [facility] [employer] Work Phone: Trichomonas, UA NOT REPORTED None [facility] Work Phone: WBC, UA 10 TO 20 [facility] [employer] Work Phone: Yeast, UA NOT REPORTED None [facility] [employer] Work Phone: [facility] Work Phone: UrinalysisOrdered By: Richar Obrien on 05-18-2021 Bilirubin Urine Negative NEGATIVE [facility] Work Phone: Color, UA YELLOW YELLOW [facility] Work Phone: Glucose, Ur Negative NEGATIVE [facility] Work Phone: Interpretation and review of laboratory results Abnormal [facility] Work Phone: Ketones Ql (U) Negative NEGATIVE [facility] Work Phone: Leukocyte esterase Test strip Ql (U) SMALL Abnormal NEGATIVE [facility] Work Phone: Nitrite, Urine Negative NEGATIVE [facility] Work Phone: pH, UA 6.0 [facility] [employer] Work Phone: Protein, UA Negative NEGATIVE [facility] Work Phone: Specific Valera, UA >1.030 High [facility] [employer] Work Phone: Turbidity UA SLIGHTLY CLOUDY Abnormal CLEAR [facility] Work Phone: Urinalysis Comments NOT REPORTED [facility] [employer] Work Phone: Urine Hgb Negative NEGATIVE [facility] Work Phone: Urobilinogen, Urine Normal Normal [facility] Work Phone: [facility] Work Phone: Urinalysis, Routineon 2020 Bilirubin, SemiQt,Ur Negative Normal NEG [facility] Comment on above: Performed By: #### S [facility] #### [facility] [address] [place] [address] Dial Painter: Collin De La Fuente MD Blood, Urine Negative Normal NEG [facility] Comment on above: Performed By: #### S WCGP #### [address] [address] Dial Painter: Collin De La Fuente MD Clarity (U) SLIGHTLY CLOUDY Abnormal CLEAR [facility] Comment on above: Performed By: #### S WCGP #### [address] [address] Dial Painter: Collin De La Fuente MD Color (U) YELLOW Normal YEL [facility] Comment on above: Performed By: #### S WCGP #### [address] [address] Dial Painter: Collin De La Fuente MD Glucose Ql (U) Negative Normal NEG [facility] Comment on above: Performed By: #### S WCGP #### [address] [address] Dial Painter: Collin De La Fuente MD Ketones Ql (U) Negative Normal NEG [facility] Comment on above: Performed By: #### S WCGP #### [address] [address] Dial Painter: Collin De La Fuente MD Leukocyte esterase Test strip Ql (U) SMALL Abnormal NEG [facility] Comment on above: Performed By: #### S WCGP #### [address] [address] Dial Painter: Collin De La Fuente MD Nitrite,Ur Negative Normal NEG [facility] Comment on above: Performed By: #### S WCGP #### [address] [address] Dial Painter: Collin De La Fuente MD PH,Ur 6.0 Normal 5.0-9.0 [facility] Comment on above: Performed By: #### S WCGP #### [address] [place] [address] Dial Painter: Collin De La Fuente MD Protein Ql (U) Negative Normal NEG [facility] Comment on above: Performed By: #### S WCGP #### [address] [address] Dial Painter: Collin De La Fuente MD Spec. Valera,Ur >1.030 High 1.010-1.020 [facility] Comment on above: Performed By: #### S WCGP #### [address] [address] Dial Painter: Collin De La Fuente MD Urobilinogen,Ur Normal Normal NORM [facility] Comment on above: Performed By: #### S WCGP #### [address] [address] Dial Painter: Collin De La Fuente MD Comment NOT REPORTED Normal [facility] Comment on above: Performed By: #### S WCGP #### [address] [address] Dial Painter: Collin De La Fuente MD Urinalysis,Microon 1 ----- Normal [facility] Comment on above: Performed By: #### S WCGP #### [address] [address] Dial Painter: Collin De La Fuente MD Bacteria 2+ Abnormal NONE [facility] Comment on above: Performed By: #### S WCGP #### [address] [address] Dial Painter: Collin De La Fuente MD Epithelial cells LM Ql (Urine sed) 5 TO 10 Normal 0-25 [facility] Comment on above: Performed By: #### S WCGP #### [address] [address] Dial Painter: Collin De La Fuente MD Mucus Strands 1+ Abnormal NONE [facility] Comment on above: Performed By: #### S WCGP #### [facility] [employer] [facility] [place] [address] Dial Painter: Collin De La Fuente MD Urine RBC's None Normal 0-2 [facility] Comment on above: Performed By: #### S WCGP #### [facility] [place] [address] Dial Painter: Collin De La Fuente MD Urine WBC's 10 TO 20 Normal 0-5 [facility] Comment on above: Performed By: #### S WCGP #### [address] [address] Dial Painter: Collin De La Fuente MD Amorphous sediment LM Ql (Urine sed) NOT REPORTED Normal NONE [facility] Comment on above: Performed By: #### S WCGP #### [address] [address] Dial Painter: Collin De La Fuente MD Casts NOT REPORTED Normal [facility] Comment on above: Performed By: #### S WCGP #### [address] [address] Dial Painter: Collin De La Fuente MD Crystals LM Nom (Urine sed) NOT REPORTED Normal NONE [facility] Comment on above: Performed By: #### S WCGP #### [address] [address] Dial Painter: Collin De La Fuente MD Epithelial, Renal NOT REPORTED Normal 0 [facility] Comment on above: Performed By: #### S WCGP #### [facility] [employer] [address] [place] [address] Dial Painter: Collin De La Fuente MD Other Observations NOT REPORTED [facility] Comment on above: Performed By: #### S WCGP #### [facility] [employer] [address] [place] [address] Dial Painter: Collin De La Fuente MD Trichomonas NOT REPORTED Normal NONE [facility] Comment on above: Performed By: #### S WCGP #### [facility] [address] [place], [place] [id number] Dial Painter: Collin De La Fuente MD Yeast NOT REPORTED Normal NONE [facility] Comment on above: Performed By: #### S WCGP #### [facility] [address] [place], [place] [id number] Dial Painter: Collin De La Fuente MD Basic Metab w/rfx MGon 04-14 (cont.) Normal [facility] Comment on above: Result Comment: Aver age GFR for 20-29 years old: 116 mL/min/1.73sq m Chronic Kidney Disease: <60 mL/min/1.73sq m Kidney failure: <15 mL/min/1.73sq m eGFR calculated using average adult body mass. Additional eGFR calculator available at: http://www.[employer]/multiple_crcl_2012.htm Performed By: #### B MPX, LIP, LIVP, CDP #### [address] [place] [address] Dial Painter: Amna Clements MD Anion gap [Moles/Vol] 12 mmol/L Normal - [facility] Comment on above: Performed By: #### B MPX, LIP, LIVP, CDP #### [address] [place] [address] Dial Painter: Amna Clements MD BUN/CRE Ratio 19 Normal - [facility] Comment on above: Performed By: #### B MPX, LIP, LIVP, CDP #### [facility] [address] [place] [address] Dial Painter: Amna Clements MD Calcium [Mass/Vol] 8.8 mg/dL Normal 8.6-10.4 [facility] Comment on above: Performed By: #### B MPX, LIP, LIVP, CDP #### [facility] [address] [place], [place] [id number] Dial Painter: Amna Clements MD Chloride [Moles/Vol] 101 mmol/L Normal 98-107 [facility] [facility] Comment on above: Performed By: #### B MPX, LIP, LIVP, CDP #### [facility] [address] [place], [place] [id number] Dial Painter: Amna Clements MD CO2 [Moles/Vol] 23 mmol/L Normal 20-31 [facility] Comment on above: Performed By: #### B MPX, LIP, LIVP, CDP #### [facility] [address] [place], [place] [id number] Dial Painter: Amna Clements MD Creatinine [Mass/Vol] 0.47 mg/dL Low 0.50-0.90 [facility] Comment on above: Performed By: #### B MPX, LIP, LIVP, CDP #### [facility] [address] [place], [place] [id number] Dial Painter: Amna Clements MD GFR, Amer >60 Normal >60 [facility] Comment on above: Performed By: #### B MPX, LIP, LIVP, CDP #### [facility] [address] [place], [place] [phone] Dial Painter: Amna Clements MD GFR,non Amer >60 Normal >60 [facility] Comment on above: Performed By: #### B MPX, LIP, LIVP, CDP #### [facility] [address] [place], [place] [id number] Dial Painter: Amna Clements MD Glucose [Mass/Vol] 106 mg/dL High 70-99 [facility] Comment on above: Performed By: #### B MPX, LIP, LIVP, CDP #### [facility] [address] [place] [address] Dial Painter: Amna Clements MD Potassium [Moles/Vol] 3.7 mmol/L Normal 3.7-5.3 [facility] Comment on above: Performed By: #### B MPX, LIP, LIVP, CDP #### [facility] [address] [place] [address] Dial Painter: Amna Clements MD Sodium [Moles/Vol] 136 mmol/L Normal 135-144 [facility] Comment on above: Performed By: #### B MPX, LIP, LIVP, CDP #### [facility] [address] [place] [address] Dial Painter: Amna Clements MD Staging: Normal [facility] Comment on above: Result Comment: Stag e 1: Some kidney damage normal GFR Stage 2: Mild kidney damage GFR 60-89 Stage 3: Moderate kidney damage GFR 30-59 Stage 4: Severe kidney damage GFR 15-29 Stage 5: Severe kidney damage GFR <15 ESRD - chronic treatment by dialysis or transplant Performed By: #### B MPX, LIP, LIVP, CDP #### [facility] [address] [place] [address] Dial Painter: Amna Clements MD Urea nitrogen [Mass/Vol] 9 mg/dL Normal 6-20 [facility] Comment on above: Performed By: #### B MPX, LIP, LIVP, CDP #### [facility] [address] [place] [address] Dial Painter: Amna Clements MD Basic Metabolic Panel w/ Ref ladi to MGOrdered By: Cisco Lopez on 04-14-2021 Anion gap [Moles/Vol] 12 mmol/L 9 - 17 mmol/L [facility] [employer] Phone: Calcium [Mass/Vol] 8.8 mg/dL 8.6 - 10. 4 mg/dL [facility] [employer] Phone: Chloride [Moles/Vol] 101 mmol/L 98 - 10 7 mmol/L [facility] Work Phone: CO2 [Moles/Vol] 23 mmol/L 20 - 31 mmol/L [facility] [employer] Phone: Creatinine [Mass/Vol] 0.47 mg/dL Low 0.50 - 0.90 mg/dL [facility] [employer] Work Phone: GFR >60 >60 mL/min [facility] [employer] Work Phone: GFR Non- >60 >60 mL/min [facility] [employer] Work Phone: Glucose [Mass/Vol] 106 mg/dL High 70 - 99 mg/dL [facility] [employer] Work Phone: Interpretation and review of laboratory results Abnormal [facility] [employer] Phone: Potassium [Moles/Vol] 3.7 mmol/L 3.7 - 5.3 mmol/L [facility] Work Phone: Sodium [Moles/Vol] 136 mmol/L 135 - 144 mmol/L [facility] [employer] Work Phone: Urea nitrogen (BldV) [Mass/Vol] 9 mg/dL 6 - 20 mg/dL [facility] [employer] Phone: Urea nitrogen/Creatinine (Bld) [Mass ratio] 19 [facility] [employer] Work Phone: CBC Auto DifferentialOrdered By: Cisco Lopez on 04-14-2021 Absolute Eos # 0.00 [facility] Work Phone: Absolute Immature Granulocyte 0.00 [facility] Work Phone: Absolute Lymph # 2.00 [facility] [employer] Work Phone: Absolute [place] # 1.78 High [facility] Work Phone: Basophils (Bld) [#/Vol] 0.00 10*3/uL [facility] [employer] Work Phone: Basophils/100 WBC (Bld) 0 % 0 - 2 % M [employer] Phone: Differential Type NOT REPORTED [employer] Phone: Eosinophils/100 WBC (Bld) 0 % Low 1 - 4 % [employer] Phone: Hematocrit (Bld) [Volume fraction] 38.4 % 36.3 - 47.1 % [employer] Phone: Hemoglobin.gastrointesti nal spec 1 Ql (Stl) 12.5 g/dL 11.9 - 15.1 g/dL [employer] Phone: Immature granulocytes/100 WBC (Bld) 0 % 0 [employer] Phone: Interpretation and review of laboratory results Abnormal [employer] Phone: Lymphocytes/100 WBC (Bld) 9 % Low 24 - 43 % [employer] Phone: MCH (RBC) [Entitic mass] 29.6 pg 25. 2 - 33.5 pg [employer] Phone: MCHC (RBC) [Mass/Vol] 32.6 g/dL 28.4 - 34.8 g/dL [employer] Phone: MCV (RBC) [Entitic vol] 91.0 fL 82.6 - 102.9 fL [employer] Phone: Monocytes/100 WBC (Bld) 8 % 3 - 12 % M [employer] Phone: Morphology Hay (Bld) [Interp] Normal [employer] Phone: NRBC Automated 0.0 0.0 per 100 WBC [employer] Phone: Platelet distribution width (Bld) [Ratio] 13.4 % 11.8 - 14.4 % [employer] Phone: Platelet Estimate NOT REPORTED [employer] Phone: Platelet mean volume (Bld) [Entitic vol] 10.2 fL 8.1 - 13.5 fL [employer] Work Phone: Platelets (Bld) [#/Vol] 321 10*3/uL [employer] Phone: RBC (Bld) [#/Vol] 4.22 10*6/uL 3.95 - 5.1 1 m/uL [employer] Work Phone: RBC (Bld) [#/Vol] NOT REPORTED [employer] Phone: Segmented neutrophils/100 WBC (Bld) 83 % High 36 - 65 % [employer] Work Phone: Segs Absolute 18.42 High [employer] Work Phone: WBC (Bld) [#/Vol] 22.2 10*3/uL High [employer] Phone: WBC (Bld) [#/Vol] NOT REPORTED [employer] Phone: [employer] Work Phone: CBC with Diffon 04-14-2021 Abs. Basophil 0.00 k/uL Normal 0.0-0.2 [facility] Comment on above: Performed By: #### S WCGP #### [facility] [address] [place] [address] Dial Painter: Collin De La Fuente MD Abs.Imm.Granulocyte 0.00 k/uL Normal 0.00-0.30 [facility] Comment on above: Performed By: #### S WCGP #### [facility] [address] [place] [address] Dial Painter: Collin De La Fuente MD Abs.Neutrophil (Seg) 18.42 k/uL High 1.50-8.10 [facility] Comment on above: Performed By: #### S WCGP #### [facility] [place], [place] [id number] Dial Painter: Collin De La Fuente MD Basophils/100 WBC (Bld) 0 % Normal 0-2 M [facility] Comment on above: Performed By: #### S WCGP #### [address] [address] Dial Painter: Collin De La Fuente MD Eosinophils (Bld) [#/Vol] 0.00 10*3/uL Normal 0.00-0.44 [facility] Comment on above: Performed By: #### S WCGP #### [address] [address] Dial Painter: Collin De La Fuente MD Eosinophils/100 WBC (Bld) 0 % Low 1-4 [facility] Comment on above: Performed By: #### S WCGP #### [address] [address] Dial Painter: Collin De La Fuente MD Immature granulocytes/100 WBC (Bld) 0 % Normal 0 [facility] Comment on above: Performed By: #### S WCGP #### [address] [address] Dial Painter: Collin De La Fuente MD Lymphocytes (Bld) [#/Vol] 2.00 10*3/uL Normal 1.10-3.70 [facility] Comment on above: Performed By: #### S WCGP #### [address] [address] Dial Painter: Collin De La Fuente MD Lymphocytes/100 WBC (Bld) 9 % Low 24-43 [facility] Comment on above: Performed By: #### S WCGP #### [address] [address] Dial Painter: Collin De La Fuente MD Monocytes (Bld) [#/Vol] 1.78 10*3/uL High 0.10-1.20 [facility] Comment on above: Performed By: #### S WCGP #### [address] [address] Dial Painter: Collin De La Fuente MD Monocytes/100 WBC (Bld) 8 % Normal 3-12 M [facility] Comment on above: Performed By: #### S WCGP #### [facility] [address] [place] [address] Dial Painter: Collin De La Fuente MD Morphology Hay (Bld) [Interp] Normal Normal [facility] Comment on above: Performed By: #### S WCGP #### [address] [address] Dial Painter: Collin De La Fuente MD Neutrophil (Seg) 83 % High 36-65 [facility] Comment on above: Performed By: #### S WCGP #### [address] [address] Dial Painter: Collin De La Fuente MD Erythrocyte distribution width (RBC) [Ratio] 13.4 % Normal 11.8-14.4 [facility] Comment on above: Performed By: #### S WCGP #### [address] [address] Dial Painter: Collin De La Fuente MD Hematocrit (Bld) [Volume fraction] 38.4 % Normal 36.3-47.1 [facility] Comment on above: Performed By: #### S WCGP #### [address] [address] Dial Painter: Collin De La Fuente MD Hemoglobin (Bld) [Mass/Vol] 12.5 g/dL Normal 11.9-15.1 [facility] Comment on above: Performed By: #### S WCGP #### [address] [address] Dial Painter: Collin De La Fuente MD MCH (RBC) [Entitic mass] 29.6 pg Normal 25.2-33.5 [facility] Comment on above: Performed By: #### S WCGP #### [address] [address] Dial Painter: Collin De La Fuente MD MCHC (RBC) [Mass/Vol] 32.6 g/dL Normal 28.4-34.8 [facility] Comment on above: Performed By: #### S WCGP #### [address] [address] Dial Painter: Collin De La Fuente MD MCV (RBC) [Entitic vol] 91.0 fL Normal 82.6-102.9 [facility] Comment on above: Performed By: #### S WCGP #### [address] [address] Dial Painter: Collin De La Fuente MD NRBC Automated 0.0 per 100 WBC Normal 0.0 [facility] Comment on above: Performed By: #### S WCGP #### [address] [address] Dial Painter: Collin De La Fuente MD Platelet mean volume (Bld) [Entitic vol] 10.2 fL Normal 8.1-13.5 [facility] Comment on above: Performed By: #### S WCGP #### [address] [address] Dial Painter: Collin De La Fuente MD Platelets (Bld) [#/Vol] 321 10*3/uL Normal 138-453 [facility] Comment on above: Performed By: #### S WCGP #### [address] [address] Dial Painter: Collin De La Fuente MD RBC (Bld) [#/Vol] 4.22 10*6/uL Normal 3.95-5.11 [facility] Comment on above: Performed By: #### S WCGP #### [address] [address] Dial Painter: Collin De La Fuente MD WBC (Bld) [#/Vol] 22.2 10*3/uL High 3.5-11.3 [facility] Comment on above: Performed By: #### S WCGP #### [facility] [address] [place] [address] Dial Painter: Collin De La Fuente MD Auto Diff Performed NOT REPORTED Normal [facility] Comment on above: Performed By: #### S WCGP #### [facility] [place] [address] Dial Painter: Collin De La Fuente MD Platelet Estimate NOT REPORTED Normal [facility] Comment on above: Performed By: #### S WCGP #### [facility] [employer] [facility] [place] [address] Dial Painter: Collin De La Fuente MD RBC morphology finding Nom (Bld) NOT REPORTED Normal [facility] Comment on above: Performed By: #### S WCGP #### [facility] [address] [place] [address] Dial Painter: Collin De La Fuente MD WBC Morphology NOT REPORTED Normal [facility] Comment on above: Performed By: #### S WCGP #### [facility] [employer] [address] [place] [address] Dial Painter: Collin De La Fuente MD Hepatic Function PanelOrdere d By: Cisco Lopez on 04-14-2021 Albumin [Mass/Vol] 3.7 g/dL 3.5 - 5.2 g/dL [facility] Phone: Albumin/Globulin [Mass ratio] 1.1 {ratio} [facility] Phone: ALP (Bld) [Catalytic activity/Vol] 68 U/L 35 - 104 U/L [employer] Phone: ALT [Catalytic activity/Vol] 36 U/L High 5 - 33 U/L [facility] Phone: AST [Catalytic activity/Vol] 37 U/L High <32 [employer] Phone: Bilirubin [Mass/Vol] mg/dL Low 0.3 - 1 .2 mg/dL [employer] Phone: Bilirubin, Indirect CANNOT BE CALCULATED 0.00 - 1.00 mg/dL [employer] Phone: Bilirubin.indirect [Mass/Vol] mg/dL <0.31 mg/dL [employer] Phone: Free PSA/Total PSA [Mass fraction] 7.0 g/dL 6.4 - 8.3 g/dL [employer] Phone: Globulin NOT REPORTED 1.5 - 3.8 g/dL [employer] Phone: Interpretation and review of laboratory results Abnormal [employer] Phone: [employer] Phone: Laboratory - Chemistry and C hemistry - challengeOrdered By: Cisco Lopez on 04-14-2021 GFR/1.73 sq M.predicted MDRD (S/P/Bld) [Vol rate/Area] [employer] Phone: Comment on above: Average GFR for 20-2 9 years old: 116 mL/min/1.73sq m Chronic Kidney Disease: <60 mL/min/1.73sq m Kidney failure: <15 mL/min/1.73sq m eGFR calculated using average adult body mass. Additional eGFR calculator available at: http://www.[employer]/multiple_crcl_2011.htm Stage 1: Some kidney damage normal GFR Stage 2: Mild kidney damage GFR 60-89 Stage 3: Moderate kidney damage GFR 30-59 Stage 4: Severe kidney damage GFR 15-29 Stage 5: Severe kidney damage GFR <15 ESRD - chronic treatment by dialysis or transplant Lipaseon 04-14-2021 Lipase [Catalytic activity/Vol] 40 U/L Normal 13-60 [facility] Comment on above: Performed By: #### B MPX, LIP, LIVP, CDP #### [facility] [address] [place], [place] [phone] Dial Painter: Amna Clements MD LipaseOrdered By: Brandy on 04-14-2021 Lipase [Catalytic activity/Vol] 40 U/L 13 - 60 U/L [facility] Work Phone: Liver Profileon 04-14-2021 Bilirubin [Mass/Vol] mg/dL Low 0.3-1.2 [facility] Comment on above: Performed By: #### B MPX, LIP, LIVP, CDP #### [facility] [address] [place], [place] [phone] Dial Painter: Amna Clements MD Bilirubin, Indirect CANNOT BE CALCULATED Normal 0.00-1 .00 [facility] Comment on above: Performed By: #### B MPX, LIP, LIVP, CDP #### [facility] [address] [place] [address] Dr. [place], [place] [phone] Dial Painter: Amna Clements MD Albumin [Mass/Vol] 3.7 g/dL Normal 3.5-5.2 [facility] Comment on above: Performed By: #### B MPX, LIP, LIVP, CDP #### [facility] [address] [place] [address] Dr[address] [place], [place] [phone] Dial Painter: Amna Clements MD Albumin/Glob Ratio 1.1 Normal 1.0-2.5 [facility] Comment on above: Performed By: #### B MPX, LIP, LIVP, CDP #### [facility] [address] [place] [address] [place] [place], [place] [phone] Dial Painter: Amna Clements MD Alkaline Phos 68 U/L Normal 35-104 [facility] Comment on above: Performed By: #### B MPX, LIP, LIVP, CDP #### [facility] [address] [place], [place] [phone] Dial Painter: Amna Clements MD ALT [Catalytic activity/Vol] 36 U/L High 5-33 [facility] Comment on above: Performed By: #### B MPX, LIP, LIVP, CDP #### [facility] [address] [place], [place] [phone] Dial Painter: Amna Clements MD AST [Catalytic activity/Vol] 37 U/L High <32 [facility] Comment on above: Performed By: #### B MPX, LIP, LIVP, CDP #### [facility] [address] [place], [place] [phone] Dial Painter: Amna Clements MD Bilirubin.indirect [Mass/Vol] mg/dL Normal <0.31 [facility] Comment on above: Performed By: #### B MPX, LIP, LIVP, CDP #### [facility] [address] [place], [place] [phone] Dial Painter: Amna Clements MD Protein [Mass/Vol] 7.0 g/dL Normal 6.4-8.3 [facility] Comment on above: Performed By: #### B MPX, LIP, LIVP, CDP #### [address] [place], [place] [phone] Dial Painter: Amna Clements MD Globulin Fraction NOT REPORTED Normal 1.5-3.8 [facility] Comment on above: Performed By: #### B MPX, LIP, LIVP, CDP #### [address] [place], [place] [address]83 Dial Painter: Amna Clements MD Microscopic UrinalysisOrdere d By: Cisco Lopez on 04-14-2021 - [facility] Work Phone: Amorphous, UA NOT REPORTED None [facility] Work Phone: Bacteria, UA TRACE Abnormal None [facility] Work Phone: Casts UA NOT REPORTED /LPF [facility] Work Phone: Crystals, UA NOT REPORTED None /HPF [facility] Work Phone: Epithelial Cells UA 10 TO 20 [facility] Work Phone: Interpretation and review of laboratory results Abnormal [facility] Work Phone: Mucus, UA TRACE Abnormal None [facility] Work Phone: Other Observations UA NOT REPORTED NOT REQ. M [facility] [employer] Work Phone: RBC, UA 0 TO 2 [facility] Work Phone: Renal Epithelial, UA NOT REPORTED 0 /HPF Me [facility] Work Phone: Trichomonas, UA NOT REPORTED None [facility] [employer] Work Phone: WBC, UA 0 TO 2 [facility] [employer] Work Phone: Yeast, UA NOT REPORTED None [facility] [employer] Work Phone: [facility] [employer] Work Phone: No Panel InformationOrdered By: Cisco Lopez on 04-14-2021 [facility] [employer] Work Phone: UA w/Reflex Cultureon 2020 Bilirubin, SemiQt,Ur Negative Normal NEG [facility] Comment on above: Performed By: #### S WCGP #### [employer] [address] [place] [phone] Dial Painter: Collin De La Fuente MD Blood, Urine Negative Normal NEG [facility] Comment on above: Performed By: #### S WCGP #### [employer] [address] [place] [phone] Dial Painter: Collin De La Fuente MD Clarity (U) CLEAR Normal CLEAR [facility] Comment on above: Performed By: #### S WCGP #### [facility] [address] [place] [phone] Dial Painter: Collin De La Fuente MD Color (U) YELLOW Normal YEL [facility] Comment on above: Performed By: #### S WCGP #### [facility] [address] [place] [address] Dial Painter: Collin De La Fuente MD Glucose Ql (U) Negative [facility]G [facility] Comment on above: Performed By: #### S WCGP #### [address] [address] Dial Painter: Collin De La Fuente MD Ketones Ql (U) TRACE Abnormal NEG [facility] in Hospital Comment on above: Performed By: #### S WCGP #### [address] [address] Dial Painter: Collin De La Fuente MD Leukocyte esterase Test strip Ql (U) Negative Normal NEG [facility] Comment on above: Performed By: #### S WCGP #### [address] [address] Dial Painter: Collin De La Fuente MD Nitrite,Ur Negative Normal NEG [facility] Comment on above: Performed By: #### S WCGP #### [address] [address] Dial Painter: Collin De La Fuente MD PH,Ur 5.5 Normal 5.0-9.0 [facility] Comment on above: Performed By: #### S WCGP #### [address] [address] Dial Painter: Collin De La Fuente MD Protein Ql (U) TRACE Abnormal NEG [facility] in Hospital Comment on above: Performed By: #### S WCGP #### [address] [address] Dial Painter: Collin De La Fuente MD Spec. Valera,Ur >1.030 High 1.010-1.020 [facility] Comment on above: Performed By: #### S WCGP #### [address] [address] Dial Painter: Collin De La Fuente MD Urobilinogen,Ur Normal Normal NORM [facility] Comment on above: Performed By: #### S WCGP #### [employer] [address] [place], [place] [phone] Dial Painter: Collin De La Fuente MD Comment NOT REPORTED Normal [facility] Comment on above: Performed By: #### S WCGP #### [facility] [address] [place], [place] [phone] Dial Painter: Collin De La Fuente MD Urinalysis Reflex to Culture Ordered By: Cisco Lopez on 04-14-2021 Bilirubin Urine Negative NEGATIVE [facility] Work Phone: Color, UA YELLOW YELLOW [facility] [employer] Work Phone: Glucose, Ur Negative NEGATIVE [facility] [employer] Phone: Interpretation and review of laboratory results Abnormal [facility] [employer] Phone: Ketones Ql (U) TRACE Abnormal NEGATIVE [facility] Work Phone: Leukocyte esterase Test strip Ql (U) Negative NEGATIVE [facility] [employer] Phone: Nitrite, Urine Negative NEGATIVE [facility] Work Phone: pH, UA 5.5 [facility] [employer] Phone: Protein, UA TRACE Abnormal NEGATIVE [facility] [employer] Phone: Specific Valera, UA >1.030 High [facility] [employer] Phone: Turbidity UA CLEAR CLEAR [facility] [employer] Phone: Urinalysis Comments NOT REPORTED [facility] [employer] Work Phone: Urine Hgb Negative NEGATIVE [facility] [employer] Phone: Urobilinogen, Urine Normal Normal [facility] [employer] Phone: [facility] [employer] Phone: Urinalysis,Microon 1 ----- Normal [facility] Comment on above: Performed By: #### U MICAO, UA #### [facility] [address] [place], [place] [phone] Dial Painter: Aman Clements MD Bacteria TRACE Abnormal NONE [facility] Comment on above: Performed By: #### U MICAO, UA #### [facility] [address] [place], [facility]83 Dial Painter: Amna Clements MD Epithelial cells LM Ql (Urine sed) 10 TO 20 Normal 0-25 [facility] Comment on above: Performed By: #### U ROSAO, UA #### [facility] [address] [place], [facility]83 Dial Painter: Amna Clements MD Mucus Strands TRACE Abnormal [facility] Comment on above: Performed By: #### U ROSAO, UA #### [facility] [address] [place], [facility]83 Dial Painter: Amna Clements MD Urine RBC's 0 TO 2 Normal 0-2 [facility] Comment on above: Performed By: #### U MICAO, UA #### [facility] [address] [place], [place] [phone] Dial Painter: Amna Clements MD Urine WBC's 0 TO 2 Normal 0-5 [facility] Comment on above: Performed By: #### U MICAO, UA #### [facility] [address] [place], [place] [phone] Dial Painter: Amna Clements MD Amorphous sediment LM Ql (Urine sed) NOT REPORTED Normal [facility] Comment on above: Performed By: #### U MICAO, UA #### [facility] [address] [place], [place] [phone] Dial Painter: Amna Clements MD Casts NOT REPORTED Normal [facility] Comment on above: Performed By: #### U MICAO, UA #### [facility] [address] [place] [address] Dial Painter: Amna Clements MD Crystals LM Nom (Urine sed) NOT REPORTED Normal [facility] Comment on above: Performed By: #### U MICAO, UA #### [facility] [address] [place] [address] Dial Painter: Amna Clements MD Epithelial, Renal NOT REPORTED Normal 0 [facility] Comment on above: Performed By: #### U MICAO, UA #### [facility] [address] [place], [place] [phone] Dial Painter: Amna Clements MD Other Observations NOT REPORTED [facility] above: Performed By: #### U MICAO, UA #### [facility] [address] [place] [address] Dial Painter: Amna Clements MD Trichomonas NOT REPORTED Normal [facility] Comment on above: Performed By: #### U MICAO, UA #### [facility] [address] [place] [address] Dial Painter: Amna Clements MD Yeast NOT REPORTED Normal [facility] Comment on above: Performed By: #### U MICAO, UA #### [facility] [address] [place] [address] Dial Painter: Amna Clements MD D-Dimer Teston 03-24-2021 D-Dimer Test 0.44 mg/L FEU Normal 0.00-0.59 [facility] Comment on above: Result Comment: When [...] with distal DVT. Performed By: #### S [facility] #### [employer] [address] [place], [place] [id number] Dial Painter: Collin De La Fuente MD D-Dimer, QuantitativeOrdered By: Lidia Núñez on 03-23-2021 D-Dimer, Quant 0.44 [employer] [facility] Work Phone: Comment on above: When [...] Ampon 03-11 Chlamydia Probe Negative Normal NEG [facility] Comment on above: Result Comment: CHLA [...] target. Performed By: #### S WCGP #### [address] [place], [place] [id number] Dial Painter: Collin De La Fuente MD Gonorrhea Probe Negative Normal [facility] Comment on above: Result Comment: NEIS SERIA [...] target. Performed By: #### S WCGP #### [address] [place], [place] [id number] Dial Painter: Collin De La Fuente MD Cult,Urineon 03-11-2021 Cult,Urine Specimen Description .CLEAN CATCH URINE Special Requests NOT REPORTED Culture NO SIGNIFICANT GROWTH Report Status FINAL 03/11/2021 Normal [facility] Comment on above: Performed By: #### U RC #### [address] [place] [address] Dial Painter: Collin De La Fuente MD [address] [place] [address] Dial Painter: Amna Clements MD HCG, ,Urineon 03-10 Beta HCG ( test) Ql (U) Positive Abnormal NEG [facility] Comment on above: Result Comment: If HCG results do not concur with clinical observations, additional testing to confirm result is recommended. This test is not labeled for use as a tumor marker. [facility] has confirmed the use of plasma for this test. This has not been cleared or approved by the U.S. Food and Drug Administration. The FDA has determined that such clearance is not necessary. Performed By: #### S WCGP #### [address] [place] [address] Dial Painter: Collin De La Fuente MD Trichomonas/Wet Prepon 03-10 Trichomonas/Wet Prep Specimen Descriptio n .VAGINA Special Requests NOT REPORTED Direct Exam NO TRICHOMONAS SEEN NO YEAST OBSERVED RARE CLUE CELLS SEEN Report Status FINAL 03/10/2021 Normal [facility] Comment on above: Performed By: #### W P #### [facility] [address] [place] [address] Dial Painter: Amna Clements MD UA w/Reflex Cultureon 2020 Acetoacetic Acid,Ur Negative Normal NEG [facility] Comment on above: Performed By: #### S WCGP #### [address] [address] Dial Painter: Collin De La Fuente MD Bilirubin, SemiQt,Ur Negative Normal NEG [facility] Comment on above: Performed By: #### S WCGP #### [address] [address] Dial Painter: Collin De La Fuente MD Color (U) YELLOW Normal YEL [facility] Comment on above: Performed By: #### S WCGP #### [address] [address] Dial Painter: Collin De La Fuente MD Glucose Ql (U) Negative Normal NEG [facility] in [facility] Comment on above: Performed By: #### S WCGP #### [address] [address] Dial Painter: Collin De La Fuente MD Hemoglobin, Ur Negative Normal NEG [facility] in [facility] Comment on above: Performed By: #### S WCGP #### [address] [address] Dial Painter: Collin De La Fuente MD Leukocyte esterase Test strip Ql (U) LARGE Abnormal NEG [facility] Comment on above: Performed By: #### S WCGP #### [address] [address] Dial Painter: Collin De La Fuente MD Nitrite,Ur Negative Normal NEG [facility] Comment on above: Performed By: #### S WCGP #### [address] [address] Dial Painter: Collin De La Fuente MD PH,Ur 7.5 Normal 5.0-9.0 [facility] Comment on above: Performed By: #### S WCGP #### [address] [address] Dial Painter: Collin De La Fuente MD Protein Ql (U) Negative Normal NEG [facility] Comment on above: Performed By: #### S WCGP #### [address] [address] Dial Painter: Collin De La Fuente MD Spec. Valera,Ur 1.020 Normal 1.010-1.020 [facility] Comment on above: Performed By: #### S WCGP #### [address] [address] Dial Painter: Collin De La Fuente MD Turbidity CLOUDY Abnormal CLEAR [facility] Comment on above: Performed By: #### S WCGP #### [address] [address] Dial Painter: Collin De La Fuente MD Urobilinogen,Ur Normal Normal NORM [facility] Comment on above: Performed By: #### S WCGP #### [address] [address] Dial Painter: Collin De La Fuente MD Comment NOT REPORTED Normal [facility] Comment on above: Performed By: #### S WCGP #### [address] [address] Dial Painter: Collin De La Fuente MD Urinalysis,Microon 1 ----- Normal [facility] Comment on above: Performed By: #### S WCGP #### [address] [address] Dial Painter: Collin De La Fuente MD Amorphous sediment LM Ql (Urine sed) 1+ Abnormal NONE [facility] Comment on above: Performed By: #### S WCGP #### [address] [address] Dial Painter: Collin De La Fuente MD Bacteria 3+ Abnormal NONE [facility] Comment on above: Performed By: #### S WCGP #### [address] [address] Dial Painter: Collin De La Fuente MD Epithelial cells LM Ql (Urine sed) 20 TO 50 Normal 0-25 [facility] Comment on above: Performed By: #### S WCGP #### [address] [address] Dial Painter: Collin De La Fuente MD Urine RBC's None Normal 0-2 [facility] Comment on above: Performed By: #### S WCGP #### [address] [address] Dial Painter: Collin De La Fuente MD Urine WBC's 10 TO 20 Normal 0-5 [facility] Comment on above: Performed By: #### S WCGP #### [address] [address] Dial Painter: Collin De La Fuente MD Casts NOT REPORTED Normal [facility] Comment on above: Performed By: #### S WCGP #### [address] [address] Dial Painter: Collin De La Fuente MD Crystals LM Nom (Urine sed) NOT REPORTED Normal NONE [facility] Comment on above: Performed By: #### S WCGP #### [facility] [address] [place] [address] Dial Painter: Collin De La Fuente MD Epithelial, Renal NOT REPORTED Normal 0 [facility] Comment on above: Performed By: #### S WCGP #### [facility] [address] [place] [address] Dial Painter: Collin De La Fuente MD Mucus Strands NOT REPORTED Normal NONE [facility] Comment on above: Performed By: #### S WCGP #### [address] [address] Dial Painter: Collin De La Fuente MD Other Observations NOT REPORTED Normal NREQ [facility] Comment on above: Performed By: #### S WCGP #### [address] [address] Dial Painter: Collin De La Fuente MD Trichomonas NOT REPORTED Normal NONE [facility] Comment on above: Performed By: #### S WCGP #### [address] [place] [address] Dial Painter: Collin De La Fuente MD Yeast NOT REPORTED Normal [facility] Comment on above: Performed By: #### S WCGP #### [address] [address] Dial Painter: Collin De La Fuente MD Cult,Urineon 03-02-2021 Cult,Urine Specimen Description .CLEAN CATCH URINE Special Requests NOT REPORTED Culture NO SIGNIFICANT GROWTH Report Status FINAL 03/02/2021 Normal [facility] Comment on above: Performed By: #### U RC #### [address] [address] Dial Painter: Collin De La Fuente MD [facility] [address] [place] [address] Dial Painter: Amna Clements MD C. Trachomatis, External Res ultOrdered By: Historical Provider on 03-01-2021 C. Trachomatis, External Result Negative [facility] [employer] Work Phone: Comment on above: William Joel RN/confirmed with Igor Kinsey RN N. Gonorrhoeae, External Res ultOrdered By: Historical Provider on 03-01-2021 N. Gonorrhoeae, External Result Negative [facility] [employer] Work Phone: Comment on above: William Joel RN/confirmed with Igor Kinsey RN No Panel InformationOrdered By: Historical Provider on 03-01-[address] [facility]: Microscopic Urinalysison Amorphous, UA NOT REPORTED None [facility] Work Phone: Bacteria, UA NOT REPORTED None [facility] Work Phone: Casts UA NOT REPORTED /LPF [facility] [employer] Work Phone: Crystals, UA NOT REPORTED None /HPF [facility] Work Phone: Epithelial Cells UA 50 TO 100 [facility] [employer] Work Phone: Mucus, UA NOT REPORTED None [facility] [employer] Work Phone: Other Observations UA NOT REPORTED NOT REQ. M [facility] [employer] Work Phone: RBC (U) [#/Vol] 0 TO [address] [facility] Work Phone: Renal Epithelial, UA NOT REPORTED 0 /HPF [facility] Work Phone: Trichomonas, UA NOT REPORTED None [facility] Work Phone: WBC, UA 20 TO 50 [facility] [employer] Work Phone: Yeast, UA NOT REPORTED None [facility] Work Phone: - [facility] Work Phone: Otheron 02-28-2021 Living intrauterine with an estimated gestational age of 13 weeks and 1 day by current ultrasound [employer] Phone: Dario, Mhpn Incoming Radiant Results From [employer] - 02/28/2021 1:48 PM EDT EXAMINATION: TRANSABDOMINAL [...] posteriorly to the right. Pole: Single pole [place] Rump Length: 6.8 cm Heart Rate: 160 [...] weeks and 1 day by current ultrasound [employer] Phone: EXAMINATION: TRANSABDOMINAL FIRST TRIMESTER OBSTETRIC PELVIC [...] posteriorly to the right. Pole: Single pole [place] Rump Length: 6.8 cm Heart Rate: 160 [...] days Estimated Due Date: 09/04/2021, 08/30/2021 respectively [employer] Phone: US DUP ABD PEL RETRO SCROT [...] posteriorly to the right. Pole: Single pole [place] Rump Length: 6.8 cm Heart Rate: 160 [...] Mariano Min MD 02/28/21 Final result Normal [facility] US OB LESS THAN 14 [...] posteriorly to the right. Pole: Single pole [place] Rump Length: 6.8 cm Heart Rate: 160 [...] Mariano Min MD 02/28/21 Final result Normal [facility] Urinalysis, Routineon 2020 Acetoacetic Acid,Ur Negative Normal NEG [facility] Comment on above: Performed By: #### U NILAM UA #### [facility] [address] [place] [address] Dial Painter: Amna Clements MD Bilirubin, SemiQt,Ur Negative Normal NEG [facility] Comment on above: Performed By: #### U NILAM UA #### [facility] [address] [place] [address] Dial Painter: Amna Clements MD Color (U) YELLOW Normal YEL [facility] Comment on above: Performed By: #### U NILAM UA #### [facility] [address] [place], [place] [id number] Dial Painter: Amna Clements MD Glucose Ql (U) Negative Normal NEG [facility] Comment on above: Performed By: #### U MICAO, UA #### [facility] [address] [place], [place] [id number] Dial Painter: Amna Clements MD Hemoglobin, Ur Negative Normal NEG [facility] Comment on above: Performed By: #### U MICAO, UA #### [facility] [address] [place] [address] Dr. [place], [place] [id number] Dial Painter: Amna Clements MD Leukocyte esterase Test strip Ql (U) MODERATE Abnormal NEG [facility] Comment on above: Performed By: #### U MICAO, UA #### [facility] [address] [place] [address] Dr. [place], [place] [id number] Dial Painter: Amna Clements MD Nitrite,Ur Negative Normal NEG [facility] Comment on above: Performed By: #### U MICAO, UA #### [facility] [address] [place] [address] Dr. [place], [place] [id number] Dial Painter: Amna Clements MD PH,Ur 7.5 Normal 5.0-9.0 [facility] Comment on above: Performed By: #### U MICAO, UA #### [facility] [address] [place] [address] Dr. [place], [place] [id number] Dial Painter: Amna Clements MD Protein Ql (U) Negative Normal NEG [facility] Comment on above: Performed By: #### U MICAO, UA #### [facility] [address] [place] [address] Dr. [place], [place] [id number] Dial Painter: Amna Clements MD Spec. Valera,Ur 1.020 Normal 1.010-1.020 [facility] Comment on above: Performed By: #### U MICAO, UA #### [facility] [address] [place], [place] [id number] Dial Painter: Amna Clements MD Turbidity CLEAR Normal CLEAR [facility] Comment on above: Performed By: #### U MICAO, UA #### [facility] [address] [place], [place] [id number] Dial Painter: Amna Clements MD Urobilinogen,Ur Normal Normal NORM [facility] Comment on above: Performed By: #### U MICAO, UA #### [facility] [address] [place], [place] [id number] Dial Painter: Amna Clements MD Comment NOT REPORTED Normal [facility] Comment on above: Performed By: #### U MICAO, UA #### [facility] [address] [place], [place] [id number] Dial Painter: Amna Clements MD Urinalysis, reflex to micros [employer]icon 02-28-2021 Bilirubin Urine Negative NEGATIVE [facility] Work Phone: Color, UA YELLOW YELLOW [facility] Work Phone: Glucose, Ur Negative NEGATIVE [facility] Work Phone: Interpretation and review of laboratory results Abnormal [facility] Work Phone: Ketones Ql (U) Negative NEGATIVE [facility] Work Phone: Leukocyte esterase Test strip Ql (U) MODERATE Abnormal NEGATIVE [facility] Work Phone: Nitrite, Urine Negative NEGATIVE [facility] Work Phone: pH, UA 7.5 [facility] Work Phone: Protein (U) [Mass/Vol] Negative NEGATIVE [facility] Work Phone: Specific Valera, UA 1.020 [facility] Work Phone: Turbidity UA CLEAR CLEAR [facility] Work Phone: Urinalysis Comments NOT REPORTED [facility] [employer] Work Phone: Urine Hgb Negative NEGATIVE [facility] [employer] Phone: Urobilinogen, Urine Normal Normal [facility] [employer] Phone: Urinalysis,Microon 1 ----- Normal [facility] Comment on above: Performed By: #### U MICAO, UA #### [facility] [address] [place] [address] Dial Painter: Amna Clements MD Epithelial cells LM Ql (Urine sed) 50 TO 100 Normal 0-25 [facility] Comment on above: Performed By: #### U MICAO, UA #### [facility] [address] [place] [address] Dial Painter: Amna Clements MD Urine RBC's 0 TO 2 Normal 0-2 [facility] Comment on above: Performed By: #### U MICAO, UA #### [facility] [address] [place], [place] [phone] Dial Painter: Amna Clements MD Urine WBC's 20 TO 50 Normal 0-5 [facility] Comment on above: Performed By: #### U MICAO, UA #### [facility] [address] [place] [address] Dial Painter: Amna Clements MD Amorphous sediment LM Ql (Urine sed) NOT REPORTED Normal [facility] Comment on above: Performed By: #### U MICAO, UA #### [facility] [address] [place], [place] [phone] Dial Painter: Amna Clements MD Bacteria NOT REPORTED Normal [facility] Comment on above: Performed By: #### U MICAO, UA #### [facility] [address] [place], [place] [phone] Dial Painter: Amna Clements MD Casts NOT REPORTED Normal [facility] Comment on above: Performed By: #### U NILAM, UA #### [facility] [address] [place], [place] [phone] Dial Painter: Amna Clements MD Crystals LM Nom (Urine sed) NOT REPORTED Normal NONE [facility] Comment on above: Performed By: #### U NILAM, UA #### [facility] [address] [place], [place] [phone] Dial Painter: Amna Clements MD Epithelial, Renal NOT REPORTED Normal 0 [facility] Comment on above: Performed By: #### U NILAM, UA #### [facility] [address] [place], [place] [phone] Dial Painter: Amna Clements MD Mucus Strands NOT REPORTED Normal NONE [facility] Comment on above: Performed By: #### U NILAM, UA #### [facility] [address] [place], [place] [phone] Dial Painter: Amna Clements MD Other Observations NOT REPORTED Normal NREQ [facility] Comment on above: Performed By: #### U NILAM, UA #### [facility] [address] [place], [place] [phone] Dial Painter: Amna Clements MD Trichomonas NOT REPORTED Normal NONE [facility] Comment on above: Performed By: #### U NILAM, UA #### [facility] [address] [place], [place] [phone] Dial Painter: Amna Clements MD Yeast NOT REPORTED Normal NONE [facility] Comment on above: Performed By: #### U NILAM, UA #### [facility] [address] [place] [address] Dial Painter: Amna Clements MD ABO, External ResultOrdered By: Historical Provider on 02-17-2021 ABO, External Result AB [facility] Work Phone: Comment on above: William Joel RN/confirmed with Igor Kinsey RN HIV, External ResultOrdered By: Historical Provider on 02-17-2021 HIV, External Result Non-Reactive [employer] Phone: Comment on above: William Joel RN/confirmed with Igor Kinsey RN Hepatitis B, External Result Ordered By: Historical Provider on 02-17-2021 Hep B, External Result Negative [employer] Phone: Comment on above: William Joel RN/confirmed with Igor Kinsey RN Hepatitis C Antibody, Photograph Mounter al ResultOrdered By: Historical Provider on 02-17-2021 Hepatitis C Antibody, External Result Negative [employer] Phone: Comment on above: William Joel RN/confirmed with Igor Kinsey RN No Panel InformationOrdered By: Historical Provider on 02-17-2021 [employer] Phone: RPR, External LabOrdered By: Historical Provider on 02-17-2021 RPR, External Result Non-Reactive [employer] Phone: Comment on above: William Joel RN/confirmed with Igor Kinsey RN Rh Factor, External ResultOr dered By: Historical Provider on 02-17-2021 Rh Factor, External Result Positive [employer] Phone: Comment on above: William Joel RN/confirmed with Igor Kinsey RN Rubella Titer, External Resu ltOrdered By: Historical Provider on 02-17-2021 Rubella Titer, External Result immune [employer] Phone: Comment on above: William Joel RN/confirmed with Igor Kinsey RN Vital Signs Date Time Vital Sign Value Performing Clinician Faci raul 06-16-2021 23:58-0400 Diastolic blood pressure 62 mm[Hg] Richar Obrien APRN - CNM Work Phone: [employer] Phone: 06-16-2021 23:58-0400 Heart rate 91 /min Richar Obrien APRN - CNM Work Phone: [employer] Phone: 06-16-2021 23:58-0400 Respiratory rate 16 /min Richar Obrien DIE DRAWING CHECKER - CNM Work Phone: [employer] Work Phone: 06-16-2021 23:58-0400 Systolic blood pressure 107 mm[Hg] Richar Obrien DIE DRAWING CHECKER - CNM Work Phone: [employer] Work Phone: 06-16-2021 20:33-0400 Body temperature 97.7 [degF] Richar Obrien DIE DRAWING CHECKER - CNM Work Phone: [employer] Work Phone: 05-24-2021 23:40-0400 Body temperature 97.9 [degF] Rema Pool DIE DRAWING CHECKER - CNM Work Phone: [employer] Work Phone: 05-24-2021 23:40-0400 Respiratory rate 20 /min Rema Pool DIE DRAWING CHECKER - CNM Work Phone: [employer] Work Phone: 05-24-2021 23:32-0400 Diastolic blood pressure 70 mm[Hg] Rema Pool DIE DRAWING CHECKER - CNM Work Phone: [employer] Work Phone: 05-24-2021 23:32-0400 Heart rate 109 /min Rema Pool DIE DRAWING CHECKER - CNM Work Phone: [employer] Work Phone: 05-24-2021 23:32-0400 Systolic blood pressure 120 mm[Hg] Rema Pool DIE DRAWING CHECKER - CNM Work Phone: [employer] Work Phone: 05-18-2021 08:59-0400 Diastolic blood pressure 55 mm[Hg] Richar Obrien DIE DRAWING CHECKER - CNM Work Phone: [employer] Work Phone: 05-18-2021 08:59-0400 Heart rate 100 /min Richar Obrien APRN - [employer] Work Phone: [employer] Work Phone: 05-18-2021 08:59-0400 Systolic blood pressure 102 mm[Hg] Richar Obrien APRN - [employer] Work Phone: [employer] Work Phone: 05-18-2021 06:45-0400 Body height 154.9 cm Richar Obrien APRN - [employer] Work Phone: [employer] Work Phone: 05-18-2021 06:45-0400 Body mass index (BMI) [Ratio] 29.29 kg/m2 Richar Gonzalez [employer] Work Phone: [employer] Work Phone: 05-18-2021 06:45-0400 Body weight 70.31 kg Richar Gonzalez CNM Work Phone: [employer] Work Phone: 05-18-2021 06:41-0400 Body temperature 98.4 [degF] Richar Gonzalez [employer] Work Phone: [employer] Work Phone: 05-18-2021 06:41-0400 Respiratory rate 20 /min Richar Gonzalez CNM Work Phone: [employer] Work Phone: 04-14-2021 03:30-0400 Diastolic blood pressure 65 mm[Hg] Cisco Andes DO Work Phone: [employer] Work Phone: 04-14-2021 03:30-0400 SaO2% (BldA) [Mass fraction] 100 % Cisco Andes DO Work Phone: [employer] Work Phone: 04-14-2021 03:30-0400 Systolic blood pressure 107 mm[Hg] Cisco Andes DO Work Phone: [employer] Work Phone: 04-14-2021 01:57-0400 Heart rate 108 /min Cisco Andes DO Work Phone: [employer] Work Phone: 04-14-2021 01:35-0400 Respiratory rate 16 /min Cisco Andes DO Work Phone: [employer] Work Phone: 04-14-2021 01:33-0400 Body temperature 97.7 [degF] Cisco Andes DO Work Phone: [employer] Work Phone: 03-23-2021 21:13-0400 Body temperature 97.59 [degF] Lidia Núñez MD Work Phone: [employer] Work Phone: 03-23-2021 21:13-0400 Diastolic blood pressure 70 mm[Hg] Lidia Núñez MD Work Phone: [employer] Work Phone: 03-23-2021 21:13-0400 Heart rate 98 /min Lidia Núñez MD Work Phone: [employer] Work Phone: 03-23-2021 21:13-0400 Respiratory rate 16 /min Lidia Núñez MD Work Phone: [employer] Work Phone: 03-23-2021 21:13-0400 SaO2% (BldA) [Mass fraction] 98 % Lidia Núñez MD Work Phone: [employer] Work Phone: 03-23-2021 21:13-0400 Systolic blood pressure 119 mm[Hg] Lidia Núñez MD Work Phone: [employer] Phone: 02-28-2021 12:28-0400 Body Temperature 97.81 [degF] Meche Blood [employer] Phone: 02-28-2021 12:28-0400 BP Diastolic 72 mm[Hg] [facility] [employer] Phone: 02-28-2021 12:28-0400 BP Systolic 124 mm[Hg] [facility] [employer] Phone: 02-28-2021 12:28-0400 Pulse (Heart Rate) 97 /min [facility] [employer] Phone: 02-28-2021 12:28-0400 Pulse Oximetry 100 % [facility] [employer] Phone: 02-28-2021 12:28-0400 Respiratory Rate 15 /min [facility] Phone: Encounters Encounter Date Encounter Type Care [...] Subsequent hospital visit by physician Rema Tapia DIE DRAWING CHECKER - CNM Work Phone: [facility] Start: 05-18-2021 End: 05-18-2021 [facility] [place] [facility] Start: 05-18-2021 End: 05-18-2021 Subsequent hospital visit by physician Richar Obrien DIE DRAWING CHECKER - CNM Work Phone: [facility] Start: 04-14-2021 End: 04-14-2021 Emergency department patient visit CISCO LOPEZ [facility] Start: 04-14-2021 End: 04-14-2021 Emergency department patient visit Cisco Lopez DO Work Phone: [facility] ED Comment on above: Nausea and vomiting during (Primary Dx) Start: 03-23-2021 End: 03-24-2021 Emergency department patient visit LIDIA NÚÑEZ [facility] Start: 03-23-2021 End: 03-23-2021 Emergency department patient visit Lidia Núñez MD Work Phone: [facility] ED Comment on above: Leg swelling (Primar y Dx) Start: 03-10-2021 End: 03-10-2021 Emergency department patient visit ALIDA R ALCALA [facility] Start: 02-28-2021 End: 02-28-2021 Emergency department patient visit MECHE BLOOD [facility] Start: 02-28-2021 End: 02-28-2021 Emergency department patient visit Meche Blood Work Phone: [facility] ED Comment on above: Abdominal pain, unsp ecified abdominal location (Primary Dx); Urinary tract infection without hematuria, site unspecified; Intrauterine Procedures Date Procedure Procedure Detail Performing Clinician Start: 05-18-2021 Urinalysis microscop ic only Richar Obrien DIE DRAWING CHECKER - CNM Work Phone: Start: 05-18-2021 Urnls dip stick/tabl et rgnt auto w/o microscopy Richar Obrien DIE DRAWING CHECKER - CNM Work Phone: Start: 04-14-2021 Assay [...] DTaP/Tdap/Td vaccine (2 - Td or Tdap) [employer] Work Phone: Start: 05-16-2023 DTaP/Tdap/Td vaccine (2 - Td) DTaP/Tdap/Td vaccine (2 - Td) [employer]: Start: 07-27-2021 [facility] Start: 03-23-2021 End: 03-23-2022 VL DUP LOWER EXTREMITY VENOUS BILATERAL VL DUP LOWER EXTREMITY VENOUS BILATERAL Imaging Routine Leg swelling Expected: 03/23/2021, Expires: 03/23/2022 [employer]: Comment on above: Expected: 03/23/2021 , Expires: 03/23/2022 Start: 2015 Screening for malign ant neoplasm of cervix Cervical cancer screen [employer]: Start: 2010 COVID-19 Vaccine (1) COVID-19 Vaccin e (1) [employer]: Start: 2009 HIV screening HIV screen [facility] Work Phone: Start: 2006 COVID-19 Vaccine (1) COVID-19 Vaccin e (1) [employer]: Start: 1995 Varicella vaccine (1 of 2 - 2-dose childhood series) Varicella vaccine (1 of 2 - 2-dose childhood series) [employer]: Start: 1994 Hepatitis C screening Hepatitis C [facility] [employer]: End: 05-18-2021 Bacteria identified in Urine by Culture Urine culture Microbiology Routine One Time for 1 Occurrences starting 05/18/2021 until 05/18/2021 [employer]: Comment on above: One Time for 1 Occur rences starting 05/18/2021 until 05/18/2021 End: 02-28-2021 CBC Auto Differential CBC Auto Differential Lab STAT One Time for 1 Occurrences starting 02/28/2021 until 02/28/2021 [employer]: Comment on above: One Time for 1 Occur rences starting 02/28/2021 until 02/28/2021 End: 02-28-2021 Comprehensive Metabolic Panel w/ Reflex to MG Comprehensive Metabolic Panel w/ Reflex to MG Lab STAT One Time for 1 Occurrences starting 02/28/2021 until 02/28/2021 [employer]: Comment on above: One Time for 1 Occur rences starting 02/28/2021 until 02/28/2021 End: 02-28-2021 Culture, Urine Culture, Urine Microbiology Routine One Time for 1 Occurrences starting 02/28/2021 until 02/28/2021 [employer]: Comment on above: One Time for 1 Occur rences starting 02/28/2021 until 02/28/2021 Nonrebreather mask oxygen [employer] Phone: Comment on above: As directed - RT (MT N) until discontinued starting 05/18/2021 As directed - RT (MT N) until discontinued starting 05/24/2021 As directed - RT (MT N) until discontinued starting 06/16/2021 End: 05-18-2021 SVE SVE Point of Care Testing Routine One Time for 1 Occurrences starting 05/18/2021 until 05/18/2021 [employer]: Comment on above: One Time for 1 Occur rences starting 05/18/2021 until 05/18/2021 End: 05-24-2021 SVE SVE Point of Care Testing Routine One Time for 1 Occurrences starting 05/24/2021 until 05/24/2021 [employer]: Comment on above: One Time for 1 Occur rences starting 05/24/2021 until 05/24/2021 End: 06-16-2021 SVE SVE Point of Care Testing Routine One Time for 1 Occurrences starting 06/16/2021 until 06/16/2021 [employer]: Comment on above: One Time for 1 Occur rences starting 06/16/2021 until 06/16/2021 Payers Date Payer Category Payer Unknown [id number] 2.16.8 [id number] 1994 Unknown [id number] 2.16.8 40.1.929595.3.579.2.173 1994 Unknown [id number] 2.16.8 40.1.938888.3.579.2.173 1994 Unknown [id number] 2.16.8 40.1.080095.3.579.2.173 1994 Unknown [id number] 2.16.8 40.1.050854.3.579.2.173 1994 Unknown [id number] 2.16.8 40.1.950521.3.579.2.173 1994 Unknown [id number] 2.16.8 40.1.863601.3.579.2.173 1994 Unknown [id number] 2.16.84 0.1.867301.3.579.2.593 1994 Unknown [id number] 2.16.84 0.1.415967.3.579.2.593 1994 Unknown [id number] 2.16.84 0.1.849045.3.579.2.593 1994 Unknown [id number] 2.16.84 0.1.540359.3.579.2.593 1994 Unknown [id number] 2.16.84 0.1.472838.3.579.2.593 1994 Unknown [id number] 2.16.84 0.1.524501.3.579.2.593 1994 Unknown [id number] 2.16.84 0.1.682831.3.579.2.593 1994 Unknown [id number] 2.16.84 0.1.482246.3.579.2.593 1994 Unknown [id number] 2.16.84 0.1.223391.3.579.2.593 1994 Unknown [id number] 2.16.84 0.1.163971.3.579.2.593 1994 Unknown [id number] 2.16.84 0.1.798785.3.579.2.593 1994 Unknown [id number] 2.16.84 0.1.902630.3.579.2.593 1994 Unknown [id number] 2.16.84 0.1.220390.3.579.2.1259 1994 Unknown [id number] 2.16.84 0.1.581238.3.579.2.1259 1994 Unknown [id number] 2.16.84 0.1.756884.3.579.2.9 1994 Unknown [id number] 2.16.84 0.1.969720.3.579.2.9 1994 Unknown [id number] 2.16.84 0.1.008157.3.579.2.1259 1994 Unknown [id number] 2.16.840 .1.119386.3.579.2.9 1994 Unknown [id number] 2.16.840 .1.489809.3.579.2.1259 1994 Unknown [id number] 2.16.840 .1.831184.3.579.2.9 1994 Unknown [id number] 2.16.840 .1.918020.3.579.2.9 1994 Unknown [id number] 2.16.840. 1.808280.3.579.2.1259 1959 Self-pay [id number] 1959 Unknown [id number] 1. 2.840.111730.1.13.239.2.7.3.045038.315 Social History Date Type Detail Facility Start: 02-28-2021 End: 06-16-2021 Tobacco smoking status [facility] Never smoker [employer]: Start: 02-28-2021 End: 06-16-2021 Tobacco use and exposure Never used [employer]: Start: 1994 [facility]igned [facility] Exposure to SARS-CoV -2 (event) Not sure [facility]: Start: 12-07-2020 [employer] Work Phone: Start: 05-18-2021 End: 06-16-2021 Alcohol intake Ex-drinker (finding) [employer] Work Phone: History of Present illness Narrative [...] and TOCO. Orders received to discharge home. [facility] notified via telephone requesting pt's blood [...] placed on monitor. documented in this encounter [employer]: History of Present illness Narrative 05-18-2021 Erinn Simms RN - 05/18/2021 10:06 AM EDT Note Date & Type Note Facility 05-18-2021 History of Present illness Narrative Obstetrical outpatient discharge instructions explained to pt, pt v.u. Pt instructed to fruit or nut picker keflex and zofran prescriptions at [facility] in [place], pt v.u. documented in this encounter [employer]: Hospital Discharge instructions 03-23-2021 Instructions Note [...] ANY other concerns. documented in this encounter [employer]: Evaluation note Note Date & Type Note Facility Evaluation note Diagnosis Leg swelling- Primary Swelling of limb documented in this encounter [employer]: Evaluation note Note Date & Type Note Facility Evaluation note Diagnosis Nausea and vomiting during - Primary documented in this encounter [employer]: Evaluation note Note Date & Type Note Facility Evaluation note Diagnosis Decreased movement affecting management of mother, antepartum documented in this encounter [employer]: Hospital Discharge instructions Attachments Note Date & Type Note Facility Hospital Discharge instructions The following attachments cannot be sent through Care Everywhere.: Hyperemesis Gravidarum (Macanese)Nausea and Vomiting (Macanese)documented in this encounter [employer]: Hospital Discharge instructions Instructions Note Date & Type Note Facility Hospital Discharge instructions Erinn Simms RN - 05/18/[address] Liss Tapia [facility] Dr. Alondra Obrien CN [address] [facility] [address] [facility] [address] [place] [address] [address] Alondra Carrillo [address] [facility] [address] [phone] Therese Villatoro, MSN, DIE DRAWING CHECKER, CNM [place] [id number] . [facility] [address] [address] [facility] [address] Richar Rob CN [address] [place] [address] [place] [address] Gabbie Junior CNM [address] [place] [address] [place] [address] [phone] ACTIVITY LIMITATIONS: ( x )Up and about [...] OF EMERGENCY CONTACT LABOR AND DELIVERY . 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 KEFLEX TO BE TAKEN AT 2:30PM FOR FIRST DOSE. documented in this encounter [employer]: Hospital Discharge instructions Instructions Note Date & Type Note Facility Hospital Discharge instructions Fiona Gilliland RN - 05/25/[address] Liss Tapia [facility] Dr. Alondra Obrien CN [address] [facility] [address] [facility] [address] [place] Alondra CHENEY Rhoda Lorena [address] [facility] [address] [phone] Therese Villatoro, MSN, DIE DRAWING CHECKER, CNM [facility] [address] [facility] [address] [address] [facility] [address] Richar Rob CN [address] [place] [place] [address] [place] [address] Gabbie Junior CN [address] [place] [address] [place] [address] [phone] ACTIVITY LIMITATIONS: ( x )Up and about [...] AND DELIVERY . documented in this encounter [employer]: Hospital Discharge instructions Instructions Note Date & Type Note Facility Hospital Discharge instructions Allyson Joel RN - 06/17/[address] Liss Tapia [facility] Dr. Alondra Obrien [facility] [address] [facility] [address] [facility] [address] [place] [address] [place] [address] Alondra Carrillo [facility] [address] [facility] [address] [phone] ACTIVITY LIMITATIONS: ( x )Up and about [...] AND DELIVERY . documented in this encounter [employer]: Discharge Instructions * Instructions* Meche Blood MD - 02/28/2021 Take Keflex as directed until complete. Make sure to stay well-hydrated. Follow- up with your OB. Seek medical attention immediately for any worsening pain or any other acute concerns. * Attachments The following attachments cannot be sent through Care Everywhere. * Abdominal Pain (Macanese) * : PROM: General Info (Macanese) * UTI (Urinary Tract Infection): Female (Macanese) documented in this encounter Assessments Diagnosis Abdominal pain, unspecified abdominal location- Primary Urinary tract infection without hematuria, site unspecified Intrauterine Reason for Referral Status Reason Specialty Diagnoses / Procedures Referre d By Contact Referred To Contact [facility] Diagnoses Leg swelling Procedures VL DUP LOWER EXTREMITY VENOUS BILATERAL Lidia Núñez MD [address] [place] [address] Advance Directives No Advanced Directives Records FoundLatest [...] CREATED AUTHOR AUTHOR'S ORGANIZ ATION 05/07/2023 [facility] DATE CREATED AUTHOR AUTHOR'S ORGANIZ ATION 05/07/2024 [facility] dical Specialists [facility] FOR RECORDS PERTAINING TO PATIENTS WHO [...] BE BASED ON THE PRIMARY CLINICAL RECORDS. [facility] [employer] provides no warranty or guarantee of the accuracy or completeness of information in this document.
[2024-06-30 17:35] LABS: Basophils Percent Auto 0.1 % (0.2-2.0); Eosinophils Absolute Auto 0.2 10^3/uL (0.0-0.7); Eosinophils Percent Auto 1.2 % (0.9-7.0); Hematocrit 35.2 % (36.0-48.0); Hemoglobin 11.8 g/dL (12.0-16.0); Immature Granulocytes Abs Auto 0.07 10^3/uL (0.00-0.03); Immature Granulocytes Pct Auto 0.5 % (0.0-0.5); Mean Corpuscular HGB Conc 33.5 g/dL (29.9-35.2); Mean Corpuscular Volume 83.6 fL (81.0-99.0); Mean Platelet Volume 10.6 fL (9.5-13.5); Monocytes Percent Auto 7.1 % (1.7-12.0); Neutrophils Absolute Auto 9.5 10^3/uL (1.4-6.5); Neutrophils Percent Auto 69.1 % (43.0-75.0); Platelet Count 364 10^3/uL (150-450); Red Blood Count 4.21 10^6/uL (4.20-5.40); Red Cell Distribution Width 14.6 % (11.0-15.0); White Blood Count 13.7 10^3/uL (4.0-11.0)
[2024-06-30 17:47] LABS: Estimated Average Glucose 103 mg/dL; Glycohemoglobin A1C 5.2 % (4.5-6.2)
[2024-07-02 06:10] LABS: HBsAg Screen Negative (Negative); HCV Ab Non Reactive (Non Reactive); HIV Ab/p24 Ag Screen Non Reactive (Non Reactive); Rubella Antibodies, IgG 1.82 index (Immune >0.99)
[2024-07-02 12:12] LABS: Rapid Plasma Reagin, Quant Non Reactive titer (NonRea<1:1)
== END 2024-06-30 16:58 | disposition home or self-care (01) ==
LOC: LAB 16:57
PROVIDERS: Visit Provider Physician Assistant
DX: N92.6 Irregular menstruation, unspecified (principal); Z36.0 Encounter for antenatal screening for chromosomal anomalies
CPT/HCPCS: 36415; 83036; 85025; 86592; 86762; 86803; 86850; 86900; 86901; 87340; 87389

== ENCOUNTER 2024-08-18 17:01 | Outpatient (OUT) | payer OTHER, SELFPAY ==
--- OUTSIDE RECORDS SUMMARY | 2024-08-18 17:26 | XMS_ITS | CCD ---
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 Role Phone Unavailable Primary Care Provider [...] Unavailable RIGO ., DR GUARDADO Attending Unavailable RADISSON, DR AMNA Ames Consulting Unavailable RIGO ., [...] Admitting Unavailable MARIO ., ARSH Attending Unavailable [facility] [place]RED Primary Care Unavailable MARIO ., ARSH Consulting Unavailable RIGO, GEO Attending Unavailable JYOTHI, SINA Attending Unavailable MIGUEL CARBONE Attending Unavailable RIGO, GEO Attending Unavailable JYOTHISINA Attending Unavailable RIGO, GEO Attending Unavailable RIGO, GEO Attending Unavailable RIGO, GEO Attending Unavailable RIGO, GEO Attending Unavailable RIGO, GEO Attending Unavailable MIGUEL CARBONE Attending Unavailable JYOTHI, SINA Attending Unavailable Allergies Allergy Classification Reported Allergen(s) Allergy Type Date of Onset Reaction(s) Facility Latex (5 sources) Latex Substance Allergy 1 [facility] (1 source) Latex Propensity to adverse reactions to drug 1 [facility] Work Phone: (1 source) Latex Drug allergy (disorder) [facility] Repository Medications Current Medications Medication Drug [...] on 04-18-2023 HBsAg Screen Negative Normal Negative [facility] Comment on above: Performed By: #### H BSANS #### [facility] [address] [place] [address] Dr. Josh Jacinto HEPATITIS C VIRUS AB W/ REFL EX QUANTon 04-18-2023 HCV AB Non-Reactive Normal Non Reactive [facility] Comment on above: Performed By: #### H CVPCRR #### [facility] [address] [place] [address] Dr. Josh Jacinto HIV 1 AND 2 WITH REFLEXon HIV Screen 4th Generation wRfx Non-Reactive Normal Non Reactive [facility] Comment on above: Result Comment: HIV Negative HIV-1/HIV-2 antibodies and HIV-1 p24 antigen were NOT detected. There is no laboratory evidence of HIV infection. Performed By: #### B OX #### [facility] [address] [place] [address] Dr. Josh Jacinto RPR QUANTon 04-18-2023 Rapid Plasma Reagin, Quant Non-Reactive Normal NonRea<1:[address] [facility] Comment on above: Result Comment: [place] philip Note: This test does not meet current guidelines for screening and diagnosis of syphilis. This test is intended for following treatment response in patients being treated for syphilis infection. To screen for syphilis infection, a reflex cascade that includes both RPR and a treponema-specific assay should be utilized, such as Treponema pallidum (Syphilis) Screening [place] (650248) or Rapid Plasma Reagin (RPR) Test With Reflex to Quantitative RPR and Confirmatory Treponema pallidum Antibodies (745071). Performed By: #### B OX #### [facility] [address] [place] [address] Dr. Josh Jacinto RUBELLA AB IGGon 04-18-2023 Rubella Antibodies, IgG 1.84 index Normal Immune >0.99 [facility] Comment on above: Result Comment: Non- immune <0.90 Equivocal 0.90 - 0.99 Immune >0.99 Performed By: #### H CGSUB #### [facility] [address] [place] [address] Dr. Josh Jacinto BOX TEST SENT OUTon 04-16-20 23 SENT TO REF LAB 04/17/2023 Normal [facility] Comment on above: Performed By: #### B OX #### [facility] [address] [place] [address] Dr. Josh Jacinto CBC AUTO DIFFon 04-16-2023 BASO # 0.0 103/ul Normal 0.0-0.[address] [facility] Comment on above: Performed By: #### B OX #### [facility] [address] [place] [address] Dr. Josh Jacinto Basophils/100 WBC (Bld) 0.2 % Normal 0.2-2.0 [facility] Comment on above: Performed By: #### B OX #### [facility] [address] [place] [address] Dr. Josh Jacinto EO # 0.1 103/ul Normal 0.0-0.[address] [facility] Comment on above: Performed By: #### B OX #### [facility] [address] [place] [address] Dr. Josh Jacinto Eosinophils/100 WBC (Bld) 0.6 % Critically low 0.9-7.[address] [facility] Comment on above: Performed By: #### B OX #### [facility] [address] [place] [address] Dr. Josh Jacinto Erythrocyte distribution width (RBC) [Ratio] 13.4 % Normal 11.0-15.[address] [facility] Comment on above: Performed By: #### B OX #### [facility] [address] [place] [address] Dr. Josh Jacinto Hematocrit (Bld) [Volume fraction] 36.9 % Normal 36.0-48.[address] [facility] Comment on above: Performed By: #### B OX #### [facility] [address] [place] [address] Dr. Josh Jacinto Hemoglobin (Bld) [Mass/Vol] 12.4 g/dL Normal 12.0-16.[address] [facility] Comment on above: Performed By: #### B OX #### [facility] [address] [place] [address] Dr. Josh Jacinto IG # 0.02 10e3/ul Normal 0.00-0.[address] [facility] Comment on above: Performed By: #### B OX #### [facility] [address] [place] [address] Dr. Josh Jacinto IG % 0.2 % Normal 0.0-0.[address] [facility] Comment on above: Performed By: #### B OX #### [facility] [address] [place] [address] Dr. Josh Jacinto LYMPH # 2.3 103/ul Normal 1.2-3.[address] [facility] Comment on above: Performed By: #### B OX #### [facility] [address] [place] [address] Dr. Josh Jacinto Lymphocytes/100 WBC (Bld) 19.4 % Critically low 20.5-60.[address] [facility] Comment on above: Performed By: #### B OX #### [facility] [address] [place] [address] Dr. Josh Jacinto MANUAL DIFF REQ NO Normal [facility] Comment on above: Performed By: #### B OX #### [facility] [address] [place] [address] Dr. Josh Jacinto MCH (RBC) [Entitic mass] 29.6 pg Normal 26.7-34.[address] [facility] Comment on above: Performed By: #### B OX #### [facility] [address] [place] [address] Dr. Josh Jacinto MCHC (RBC) [Mass/Vol] 33.6 g/dL Normal 29.9-35.[address] [facility] Comment on above: Performed By: #### B OX #### [facility] [address] [place] [address] Dr. Josh Jacinto MCV (RBC) [Entitic vol] 88.1 fL Normal 81.0-99.0 [facility] Comment on above: Performed By: #### B OX #### [facility] [address] [place] [address] Dr. Josh Jacinto MONO # 0.6 103/ul Normal 0.3-0.[address] [facility] Comment on above: Performed By: #### B OX #### [facility] [address] [place] [address] Dr. Josh Jacinto Monocytes/100 WBC (Bld) 5.1 % Normal 1.7-12.0 [facility] Comment on above: Performed By: #### B OX #### [facility] [address] [address] [address] Josh Jacinto NEUT # 9.0 103/ul Critically high 1.4-6.5 [facility] Comment on above: Performed By: #### B OX #### [facility] [address] [address] [address] Josh Jacinto Neutrophils/100 WBC (Bld) 74.5 % Normal 43.0-75.[address] [facility] Comment on above: Performed By: #### B OX #### [facility] [address] [address] [address] Josh Jacinto Platelet mean volume (Bld) [Entitic vol] 10.1 fL Normal 9.5-13.[address] [facility] Comment on above: Performed By: #### B OX #### [facility] [address] [place] [address] Dr. Josh Jacinto PLT 337 103/ul Normal 150-[address] [facility] Comment on above: Performed By: #### B OX #### [facility] [address] [place] [address] Dr. Josh Jacinto RBC 4.19 106/ul Critically low 4.20-5.40 [facility] Comment on above: Performed By: #### B OX #### [facility] [address] [place] [address] Dr. Josh Jacinto WBC 12.0 103/ul Critically high 4.0-11.0 [facility] Comment on above: Performed By: #### B OX #### [facility] [address] [place] [address] Dr. Josh Jacinto CULTURE URINEon 04-16-2023 CULTURE URINE Culture Observations: NO GROWTH. Normal [facility] Comment on above: Performed By: #### H CGSUB #### [facility] [address] [place] [address] Dr. Josh Jacinto GLYCOHEMOGLOBIN A1Con 2022 ADA RECOMMENDATION SEE BELOW Normal [facility] Comment on above: Result Comment: ADA RECOMMENDED LIMIT 4.0 - 6.0 ADA THERAPEUTIC TARGET < 7.0 ACTION SUGGESTED > 7.0 Performed By: #### H CVPCRR #### [facility] [address] [address] [address] Josh Jacinto Glucose [Mass/Vol] 91 mg/dL Normal [facility] Comment on above: Performed By: #### H CVPCRR #### [facility] [address] [address] [address] Josh Jacinto HbA1c (Bld) [Mass fraction] 4.8 % Normal 4.5-6.[address] [facility] Comment on above: Performed By: #### H CVPCRR #### [facility] [address] [address] [address] Josh Jacinto TSHon 04-16-2023 TSH 1.700 uIU/mL Normal 0.358-3.740 [facility] Comment on above: Performed By: #### H CGSUB #### [facility] [address] [place] [address] Dr. Josh Jacinto TYPE AND SCREENon 04-16-2023 TYPE AND SCREEN Negative Normal [facility] Comment on above: Performed By: #### H CGSUB #### [facility] [address] [place] [address] Dr. Josh Jacinto US PREG TVon 04-13-2023 US PREG TV EXAMINATION: US PREG TV HISTORY: Pain TECHNIQUE: Grayscale and color Doppler sonographic evaluation of the uterus and adnexa was performed utilizing a transvaginal approach only. COMPARISON: 04/06/2023 FINDINGS: Uterus: Size: Normal Orientation:Antevert ed Intrauterine Gestational Sac: Present Yolk Sac: Present Pole: Present. [place]-rump length measures 2.1 cm, 8 weeks 5 [...] ANANT ERIC Date: 2023-04-13 20:47 Normal [facility] US PREG TVon 04-06-2023 US PREG [...] ROXY TOBIAS Date: 2023-04-06 10:05 Normal [facility] CBC AUTO DIFFon 10-13-2022 BASO # 0.0 103/ul Normal 0.0-0.[address] [facility] Comment on above: Performed By: #### H CVPCRR #### [facility] [address] [place] [address] Dr. Josh Jacinto Basophils/100 WBC (Bld) 0.4 % Normal 0.2-2.0 [facility] Comment on above: Performed By: #### H CVPCRR #### [facility] [address] [place] [address] Dr. Josh Jacinto EO # 0.1 103/ul Normal 0.0-0.[address] [facility] Comment on above: Performed By: #### H CVPCRR #### [facility] [address] [place] [address] Dr. Josh Jacinto Eosinophils/100 WBC (Bld) 1.2 % Normal 0.9-7.[address] [facility] Comment on above: Performed By: #### H CVPCRR #### [facility] [address] [place] [address] Dr. Josh Jacinto Erythrocyte distribution width (RBC) [Ratio] 12.7 % Normal 11.0-15.[address] [facility] Comment on above: Performed By: #### H CVPCRR #### [facility] [address] [place] [address] Dr. Josh Jacinto Hematocrit (Bld) [Volume fraction] 39.3 % Normal 36.0-48.[address] [facility] Comment on above: Performed By: #### H CVPCRR #### [facility] [address] [place] [address] Dr. Josh Jacinto Hemoglobin (Bld) [Mass/Vol] 13.1 g/dL Normal 12.0-16.[address] [facility] Comment on above: Performed By: #### H CVPCRR #### [facility] [address] [place] [address] Dr. Josh Jacinto IG # 0.02 10e3/ul Normal 0.00-0.[address] [facility] Comment on above: Performed By: #### H CVPCRR #### [facility] [address] [place] [address] Dr. Josh Jacinto IG % 0.3 % Normal 0.0-0.[address] [facility] Comment on above: Performed By: #### H CVPCRR #### [facility] [address] [place] [address] Dr. Josh Jacinto LYMPH # 2.1 103/ul Normal 1.2-3.8 [facility] Comment on above: Performed By: #### H CVPCRR #### [facility] [address] [place] [address] Dr. Josh Jacinto Lymphocytes/100 WBC (Bld) 28.8 % Normal 20.5-60.0 [facility] Comment on above: Performed By: #### H CVPCRR #### [facility] [address] [place] [address] Dr. Josh Jacinto MANUAL DIFF REQ NO Normal [facility] Comment on above: Performed By: #### H CVPCRR #### [facility] [address] [place] [address] Dr. Josh Jacinto MCH (RBC) [Entitic mass] 28.9 pg Normal 26.7-34.[address] [facility] Comment on above: Performed By: #### H CVPCRR #### [facility] [address] [place] [address] Dr. Josh Jacinto MCHC (RBC) [Mass/Vol] 33.3 g/dL Normal 29.9-35.[address] [facility] Comment on above: Performed By: #### H CVPCRR #### [facility] [address] [place] [address] Dr. Josh Jacinto MCV (RBC) [Entitic vol] 86.6 fL Normal 81.0-99.0 [facility] Comment on above: Performed By: #### H CVPCRR #### [facility] [address] [place] [address] Dr. Josh Jacinto MONO # 0.6 103/ul Normal 0.3-0.[address] [facility] Comment on above: Performed By: #### H CVPCRR #### [facility] [address] [place] [address] Dr. Josh Jacinto Monocytes/100 WBC (Bld) 8.7 % Normal 1.7-12.0 [facility] Comment on above: Performed By: #### H CVPCRR #### [facility] [address] [place] [address] Dr. Josh Jacinto NEUT # 4.4 103/ul Normal 1.4-6.[address] [facility] Comment on above: Performed By: #### H CVPCRR #### [facility] [address] [place] [address] Dr. Josh Jacinto Neutrophils/100 WBC (Bld) 60.6 % Normal 43.0-75.[address] [facility] Comment on above: Performed By: #### H CVPCRR #### [facility] [address] [place] [address] Dr. Josh Jacinto Platelet mean volume (Bld) [Entitic vol] 10.0 fL Normal 9.5-13.[address] [facility] Comment on above: Performed By: #### H CVPCRR #### [facility] [address] [place] [address] Dr. Josh Jacinto PLT 327 103/ul Normal 150-450 [facility] Comment on above: Performed By: #### H CVPCRR #### [facility] [address] [place] [address] Dr. Josh Jacinto RBC 4.54 106/ul Normal 4.20-5.[address] [facility] Comment on above: Performed By: #### H CVPCRR #### [facility] [address] [place] [address] Dr. Josh Jacinto WBC 7.2 103/ul Normal 4.0-11.[address] [facility] Comment on above: Performed By: #### H CVPCRR #### [facility] [address] [place] [address] Dr. Josh Jacinto ER URINE PROFILEon 2 Bilirubin Ql (U) Negative Normal NEGATIVE [facility] Comment on above: Performed By: #### H CVPCRR #### [facility] [address] [place] [address] Dr. Josh Jacinto Clarity (U) CLEAR Normal CLEAR [facility] Comment on above: Performed By: #### H CVPCRR #### [facility] [address] [place] [address] Dr. Jsoh Jacinto Color (U) LT. YELLOW Normal YELLOW [facility] Comment on above: Performed By: #### H CVPCRR #### [facility] [address] [place] [address] Dr. Josh Jacinto ERUJAMAL A micrscopic examination will be performed if indicated. Normal [facility] Comment on above: Performed By: #### H CVPCRR #### [facility] [address] [place] [address] Dr. Josh Jacinto Glucose Ql (U) Negative Normal NEGATIVE [facility] Comment on above: Performed By: #### H CVPCRR #### [facility] [address] [place] [address] Dr. Josh Jacinto Hemoglobin Ql (U) LARGE Abnormal NEGATIVE [facility] Comment on above: Performed By: #### H CVPCRR #### [facility] [address] [address] [address] Josh Jacinto Ketones Ql (U) Negative Normal NEGATIVE [facility] Comment on above: Performed By: #### H CVPCRR #### [facility] [address] [place] [address] Dr. Josh Jacinto LEUKOCYTES Negative Normal NEGATIVE [facility] Comment on above: Performed By: #### H CVPCRR #### [facility] [address] [address] [address] Josh Jacinto Nitrite Ql (U) Negative Normal NEGATIVE [facility] Comment on above: Performed By: #### H CVPCRR #### [facility] [address] [place] [address] Dr. Josh Jacinto pH (U) 6.5 [pH] Normal 5-[address] [facility] Comment on above: Performed By: #### H CVPCRR #### [facility] [address] [place] [address] Dr. Josh Jacinto SPEC GRAVITY 1.010 Normal 1.005-<=1.025 [facility] Comment on above: Performed By: #### H CVPCRR #### [facility] [address] [place] [address] Dr. Josh Jacinto UA PROTEIN Negative Normal NEGATIVE/ TRACE [facility] Comment on above: Performed By: #### H CVPCRR #### [facility] [address] [address] [address] Josh Jacinto UR MICRO IND INDICATED Normal [facility] Comment on above: Performed By: #### H CVPCRR #### [facility] [address] [place] [address] Dr. Josh Jacinto Urobilinogen Qn (U) 0.2 {Pio'U}/dL Normal 0.2 - 1. [address] [facility] Comment on above: Performed By: #### H CVPCRR #### [facility] [address] [place] [address] Dr. Josh Jacinto PREG QUANT HCGon 10-13-2022 HCG QUANT 4 mIU/mL Normal [facility] Comment on above: Performed By: #### P REGQNT #### [facility] [address] [place] [address] Dr. Josh Jacinto HCG RANGE SEE BELOW Normal [facility] Comment on above: Result Comment: 5-50 0.2-1 WEEK 50-500 1-2 WEEKS 100-5,000 2-3 WEEKS 500-10,000 3-4 WEEKS 1,000-50,000 4-5 WEEKS 10,000-100,000 5-6 WEEKS 15,000-200,000 6-8 WEEKS 10,000-100,000 2-3 MONTHS Performed By: #### P REGQNT #### [facility] [address] [place] [address] Dr. Josh Jacinto PROTIMEon 10-13-2022 INR Coag (PPP) [Relative time] 1.29 {INR} Normal [facility] Comment on above: Performed By: #### H CVPCRR #### [facility] [address] [place] [address] Dr. Josh Jacinto INR GUIDELINES SEE BELOW Normal [facility] Comment on above: Result Comment: PASCUAL RED INR: 2.0 - 3.0 CONDITIONS NOT LISTED BELOW 2.5 - 3.5 FOR PROSTHETIC HEART VALVE REPLACEMENT 2.5 - 3.5 RECURRENT THROMBOSIS Performed By: #### H CVPCRR #### [facility] [address] [place] [address] Dr. Josh Jacinto PT Coag (PPP) [Time] 13.7 s Critically high 9.0-11.[address] [facility] Comment on above: Performed By: #### H CVPCRR #### [facility] [address] [place] [address] Dr. Josh Jacinto PTTon 10-13-2022 aPTT Coag (Bld) [Time] 25.1 s Normal 22.3-36.2 Th [facility] Comment on above: Performed By: #### H CVPCRR #### [facility] [address] [place] [address] Dr. Josh Jacinto URINE MICROSCOPIC ONLYon BACTERIA NONE SEEN Normal NONE SEEN [facility] Comment on above: Performed By: #### H CVPCRR #### [facility] [address] [place] [address] Dr. Josh Jacinto Bacteria identified Cx Nom (U) NOT INDICATED Normal [facility] Comment on above: Performed By: #### H CVPCRR #### [facility] [address] [place] [address] Dr. Josh Jacinto CAST NONE SEEN Normal NONE SEEN [facility] Comment on above: Performed By: #### H CVPCRR #### [facility] [address] [place] [address] Dr. Josh Jacinto Crystals LM Nom (Urine sed) NONE SEEN Normal NONE SEEN [facility] Comment on above: Performed By: #### H CVPCRR #### [facility] [address] [place] [address] Dr. Josh Jacinto Epithelial cells LM Ql (Urine sed) MODERATE Abnormal NONE SEEN /RARE [facility] Comment on above: Performed By: #### H CVPCRR #### [facility] [address] [place] [address] Dr. Josh Jacinto MUCOUS NONE SEEN Normal NONE SEEN [facility] Comment on above: Performed By: #### H CVPCRR #### [facility] [address] [place] [address] Dr. Josh Jacinto RBC 10-20 Abnormal 0-2 [facility] Comment on above: Performed By: #### H CVPCRR #### [facility] [address] [place] [address] Dr. Josh Jacinto WBC 0-2 Abnormal NONE SEEN [facility] Comment on above: Performed By: #### H CVPCRR #### [facility] [address] [place] [address] Dr. Josh Jacinto US PREG TVon 10-13-2022 [...] AMNA VALLADARES Date: 2022-10-13 08:40 Normal [facility] CBC AUTO DIFFon 10-09-2022 BASO # 0.0 103/ul Normal 0.0-0.[address] [facility] Comment on above: Performed By: #### H CVPCRR #### [facility] [address] [place] [address] Dr. Josh Jacinto Basophils/100 WBC (Bld) 0.3 % Normal 0.2-2.0 [facility] Comment on above: Performed By: #### H CVPCRR #### [facility] [address] [place] [address] Dr. Josh Jacinto EO # 0.0 103/ul Normal 0.0-0.[address] [facility] Comment on above: Performed By: #### H CVPCRR #### [facility] [address] [place] [address] Dr. Josh Jacinto Eosinophils/100 WBC (Bld) 0.4 % Critically low 0.9-7.[address] [facility] Comment on above: Performed By: #### H CVPCRR #### [facility] [address] [place] [address] Dr. Josh Jacinto Erythrocyte distribution width (RBC) [Ratio] 12.7 % Normal 11.0-15.[address] [facility] Comment on above: Performed By: #### H CVPCRR #### [facility] [address] [place] [address] Dr. Josh Jacinto Hematocrit (Bld) [Volume fraction] 39.0 % Normal 36.0-48.[address] [facility] Comment on above: Performed By: #### H CVPCRR #### [facility] [address] [place] [address] Dr. Josh Jacinto Hemoglobin (Bld) [Mass/Vol] 13.1 g/dL Normal 12.0-16.[address] [facility] Comment on above: Performed By: #### H CVPCRR #### [facility] [address] [place] [address] Dr. Josh Jacinto IG # 0.03 10e3/ul Normal 0.00-0.[address] [facility] Comment on above: Performed By: #### H CVPCRR #### [facility] [address] [place] [address] Dr. Josh Jacinto IG % 0.3 % Normal 0.0-0.[address] [facility] Comment on above: Performed By: #### H CVPCRR #### [facility] [address] [place] [address] Dr. Josh Jacinto LYMPH # 2.0 103/ul Normal 1.2-3.[address] [facility] Comment on above: Performed By: #### H CVPCRR #### [facility] [address] [place] [address] Dr. Josh Jacinto Lymphocytes/100 WBC (Bld) 18.4 % Critically low 20.5-60.[address] [facility] Comment on above: Performed By: #### H CVPCRR #### [facility] [address] [place] [address] Dr. Josh Jacinto MANUAL DIFF REQ NO Normal [facility] Comment on above: Performed By: #### H CVPCRR #### [facility] [address] [place] [address] Dr. Josh Jacinto MCH (RBC) [Entitic mass] 29.0 pg Normal 26.7-34.[address] [facility] Comment on above: Performed By: #### H CVPCRR #### [facility] [address] [place] [address] Dr. Josh Jacinto MCHC (RBC) [Mass/Vol] 33.6 g/dL Normal 29.9-35.2 [facility] Comment on above: Performed By: #### H CVPCRR #### [facility] [address] [place] [address] Dr. Josh Jacinto MCV (RBC) [Entitic vol] 86.5 fL Normal 81.0-99.0 [facility] Comment on above: Performed By: #### H CVPCRR #### [facility] [address] [place] [address] Dr. Josh Jacinto MONO # 0.8 103/ul Normal 0.3-0.[address] [facility] Comment on above: Performed By: #### H CVPCRR #### [facility] [address] [place] [address] Dr. Josh Jacinto Monocytes/100 WBC (Bld) 7.1 % Normal 1.7-12.0 [facility] Comment on above: Performed By: #### H CVPCRR #### [facility] [address] [place] [address] Dr. Josh Jacinto NEUT # 8.1 103/ul Critically high 1.4-6.5 [facility] Comment on above: Performed By: #### H CVPCRR #### [facility] [address] [place] [address] Dr. Josh Jacinto Neutrophils/100 WBC (Bld) 73.5 % Normal 43.0-75.[address] [facility] Comment on above: Performed By: #### H CVPCRR #### [facility] [address] [place] [address] Dr. Josh Jacinto Platelet mean volume (Bld) [Entitic vol] 10.4 fL Normal 9.5-13.[address] [facility] Comment on above: Performed By: #### H CVPCRR #### [facility] [address] [place] [address] Dr. Josh Jacinto PLT 329 103/ul Normal 150-450 [facility] Comment on above: Performed By: #### H CVPCRR #### [facility] [address] [place] [address] Dr. Josh Jacinto RBC 4.51 106/ul Normal 4.20-5.[address] [facility] Comment on above: Performed By: #### H CVPCRR #### [facility] [address] [place] [address] Dr. Josh Jacinto WBC 11.0 103/ul Normal 4.0-11.[address] [facility] Comment on above: Performed By: #### H CVPCRR #### [facility] [address] [place] [address] Dr. Josh Jacinto CULTURE URINEon 10-09-2022 CULTURE URINE Culture Observations: NO GROWTH. Normal [facility] Comment on above: Performed By: #### H CGSUB #### [facility] [address] [place] [address] Dr. Josh Jacinto ER URINE PROFILEon Bilirubin Ql (U) Negative Normal NEGATIVE [facility] Comment on above: Performed By: #### H CVPCRR #### [facility] [address] [place] [address] Dr. Josh Jacinto Clarity (U) CLEAR Normal CLEAR [facility] Comment on above: Performed By: #### H CVPCRR #### [facility] [address] [place] [address] Dr. Josh Jacinto Color (U) LT. YELLOW Normal YELLOW [facility] Comment on above: Performed By: #### H CVPCRR #### [facility] [address] [place] [address] Dr. Josh GALLEGOS A micrscopic examination will be performed if indicated. Normal [facility] Comment on above: Performed By: #### H CVPCRR #### [facility] [address] [place] [address] Dr. Josh Jacinto Glucose Ql (U) Negative Normal NEGATIVE [facility] Comment on above: Performed By: #### H CVPCRR #### [facility] [address] [place] [address] Dr. Josh Jacinto Hemoglobin Ql (U) TRACE-LYSED Abnormal NEGATIVE [facility] Comment on above: Performed By: #### H CVPCRR #### [facility] [address] [place] [address] Dr. Josh Jacinto Ketones Ql (U) Negative Normal NEGATIVE [facility] Comment on above: Performed By: #### H CVPCRR #### [facility] [address] [place] [address] Dr. Josh Jacinto LEUKOCYTES SMALL Abnormal NEGATIVE [facility] Comment on above: Performed By: #### H CVPCRR #### [facility] [address] [place] [address] Dr. Josh Jacinto Nitrite Ql (U) Negative Normal NEGATIVE [facility] Comment on above: Performed By: #### H CVPCRR #### [facility] [address] [place] [address] Dr. Josh Jacinto pH (U) 6.0 [pH] Normal 5-[address] [facility] Comment on above: Performed By: #### H CVPCRR #### [facility] [address] [place] [address] Dr. Josh Jacinto SPEC GRAVITY 1.015 Normal 1.005-<=1.025 [facility] Comment on above: Performed By: #### H CVPCRR #### [facility] [address] [place] [address] Dr. Josh Jacinto UA PROTEIN Negative Normal NEGATIVE/ TRACE [facility] Comment on above: Performed By: #### H CVPCRR #### [facility] [address] [place] [address] Dr. Josh Jacinto UR MICRO IND INDICATED Normal [facility] Comment on above: Performed By: #### H CVPCRR #### [facility] [address] [place] [address] Dr. Josh Jacinto Urobilinogen Qn (U) 0.2 {Pio'U}/dL Normal 0.2 - 1. [address] [facility] Comment on above: Performed By: #### H CVPCRR #### [facility] [address] [place] [address] Dr. Josh Jacinto LIPASEon 10-09-2022 Lipase [Catalytic activity/Vol] 128.0 U/L Normal 73.0-393.[address] [facility] Comment on above: Performed By: #### C MP, LIPA, HSTROPN #### [facility] [address] [place] [address] Dr. Josh Jacinto MONOon 10-09-2022 Monocytes (Bld) [#/Vol] Negative Normal NEGATIVE [facility] Comment on above: Performed By: #### B OX #### [facility] [address] [address] [address] Josh Jacinto PREG HCG QUALon 10-09-2022 , QUAL Positive Abnormal NEGATIVE [facility] Comment on above: Performed By: #### B OX #### [facility] [address] [address] [address] Josh Jacinto PROF 14(COMP METB)on 022 Albumin [Mass/Vol] 3.6 g/dL Normal 3.4-5.0 [facility] Comment on above: Performed By: #### C MP, LIPA, HSTROPN #### [facility] [address] [place] [address] Dr. Josh Jacinto Albumin/Globulin [Mass ratio] 0.9 {ratio} Normal [facility] Comment on above: Performed By: #### C MP, LIPA, HSTROPN #### [facility] [address] [address] [address] Josh Jacinto ALP [Catalytic activity/Vol] 94 U/L Normal 46-[address] [facility] Comment on above: Performed By: #### C MP, LIPA, HSTROPN #### [facility] [address] [address] [address] Josh Jacinto ALT [Catalytic activity/Vol] 22 U/L Normal 14-[address] [facility] Comment on above: Performed By: #### C MP, LIPA, HSTROPN #### [facility] [address] [address] [address] Josh Jacinto Anion gap [Moles/Vol] 10.9 mmol/L Normal [facility] Comment on above: Performed By: #### C MP, LIPA, HSTROPN #### [facility] [address] [address] [address] Josh Jacinto AST [Catalytic activity/Vol] 13 U/L Critically low 15-[address] [facility] Comment on above: Performed By: #### C MP, LIPA, HSTROPN #### [facility] [address] [address] [address] Josh Jacinto Bilirubin [Mass/Vol] 0.1 mg/dL Critically low 0.2-1.[address] [facility] Comment on above: Performed By: #### C MP, LIPA, HSTROPN #### [facility] [address] [address] [address] Josh Jacinto Calcium [Mass/Vol] 9.0 mg/dL Normal 8.5-10.1 [facility] Comment on above: Performed By: #### C MP, LIPA, HSTROPN #### [facility] [address] [place] [address] Dr. Josh Jacinto Chloride [Moles/Vol] 105 mmol/L Normal 98-107 [facility] Comment on above: Performed By: #### C MP, LIPA, HSTROPN #### [facility] [address] [place] [address] Dr. Josh Jacinto CO2 [Moles/Vol] 23.5 mmol/L Normal 21.0-32.0 [facility] Comment on above: Performed By: #### C MP, LIPA, HSTROPN #### [facility] [address] [place] [address] Dr. Josh Jacinto Creatinine [Mass/Vol] 0.68 mg/dL Normal 0.55-1.02 [facility] Comment on above: Performed By: #### C MP, LIPA, HSTROPN #### [facility] [address] [place] [address] Dr. Josh Jacinto EGFR-AF PAKISTANI >60 Normal >=60 [facility] Comment on above: Performed By: #### C MP, LIPA, HSTROPN #### [facility] [address] [place] [address] Dr. Josh Jacinto EGFR-NON AF PAKISTANI >60 Normal >=60 [facility] Comment on above: Performed By: #### C MP, LIPA, HSTROPN #### [facility] [address] [address] [address] Josh Jacinto Globulin (S) [Mass/Vol] 4.1 g/dL Normal [facility] Comment on above: Performed By: #### C MP, LIPA, HSTROPN #### [facility] [address] [address] [address] Josh Jacinto Glucose [Mass/Vol] 98 mg/dL Normal 74-106 [facility] Comment on above: Performed By: #### C MP, LIPA, HSTROPN #### [facility] [address] [place] [address] Dr. Josh Jacinto Potassium [Moles/Vol] 3.4 mmol/L Critically low 3.5-5.[address] [facility] Comment on above: Performed By: #### C MP, LIPA, HSTROPN #### [facility] [address] [place] [address] Dr. Josh Jacinto Protein [Mass/Vol] 7.7 g/dL Normal 6.4-8.2 [facility] Comment on above: Performed By: #### C MP, LIPA, HSTROPN #### [facility] [address] [place] [address] Dr. Josh Jacinto Sodium [Moles/Vol] 136 mmol/L Normal 136-145 [facility] Comment on above: Performed By: #### C MP, LIPA, HSTROPN #### [facility] [address] [place] [address] Dr. Josh Jacinto Urea nitrogen [Mass/Vol] 14.0 mg/dL Normal 7.0-18.[address] [facility] Comment on above: Performed By: #### C MP, LIPA, HSTROPN #### [facility] [address] [place] [address] Dr. Josh Jacinto Urea nitrogen/Creatinine [Mass ratio] 20.6 mg/mg Normal [facility] Comment on above: Performed By: #### C MP, LIPA, HSTROPN #### [facility] [address] [place] [address] Dr. Josh Jacinto TROPONIN, HIGH SENSITIVITYon 10-09-2022 HSTROP <4.0 Normal 4.0-51.3 [facility] Comment on above: Result Comment: CUT- OFF POINTS HAVE BEEN ESTABLISHED BASED ON THE FOURTH UNIVERSAL DEFINITIONS OF MYOCARDIAL INFARCTION. THE UPPER REFERENCE LIMIT (URL) OF TROPONIN, DEFINED THE 99TH PERCENTILE OF cTnI DISTRIBUTION IN A REFERENCE POPULATION, HAS BEEN CONFIRMED THE DECISION THRESHOLD FOR [place] DIAGNOSIS. Performed By: #### C MP, LIPA, HSTROPN #### [facility] [address] [place] [address] Dr. Josh Jacinto URINE MICROSCOPIC ONLYon BACTERIA TRACE Abnormal NONE SEEN [facility] Comment on above: Performed By: #### H CVPCRR #### [facility] [address] [place] [address] Dr. Josh Jacinto Bacteria identified Cx Nom (U) INDICATED Normal [facility] Comment on above: Performed By: #### H CVPCRR #### [facility] [address] [place] [address] Dr. Josh Jacinto CAST NONE SEEN Normal NONE SEEN [facility] Comment on above: Performed By: #### H CVPCRR #### [facility] [address] [place] [address] Dr. Josh Jacinto Crystals LM Nom (Urine sed) NONE SEEN Normal NONE SEEN [facility] Comment on above: Performed By: #### H CVPCRR #### [facility] [address] [place] [address] Dr. Josh Jacinto Epithelial cells LM Ql (Urine sed) MODERATE Abnormal NONE SEEN /RARE [facility] Comment on above: Performed By: #### H CVPCRR #### [facility] [address] [place] [address] Dr. Josh Jacinto MUCOUS NONE SEEN Normal NONE SEEN [facility] Comment on above: Performed By: #### H CVPCRR #### [facility] [address] [place] [address] Dr. Josh Jacinto RBC NONE SEEN Abnormal 0-2 [facility] Comment on above: Performed By: #### H CVPCRR #### [facility] [address] [address] [address] Josh Jacinto WBC 2-5 Abnormal NONE SEEN [facility] Comment on above: Performed By: #### H CVPCRR #### [facility] [address] [place] [address] Dr. Josh Jacinto ER URINE PROFILEon 2 Bilirubin Ql (U) Negative Normal NEGATIVE [facility] Comment on above: Performed By: #### P REGU, ERUR #### [facility] [address] [place] [address] Dr. Josh Jacinto Clarity (U) CLEAR Normal CLEAR [facility] Comment on above: Performed By: #### P REGU, ERUR #### [facility] [address] [place] [address] Dr. Josh Jacinto Color (U) LT. YELLOW Normal YELLOW [facility] Comment on above: Performed By: #### P REGU, ERUR #### [facility] [address] [place] [address] Dr. Josh Jacinto ERUAHD A micrscopic examination will be performed if indicated. Normal [facility] Comment on above: Performed By: #### P REGU, ERUR #### [facility] [address] [place] [address] Dr. Josh Jacinto Glucose Ql (U) Negative Normal NEGATIVE [facility] Comment on above: Performed By: #### P REGU, ERUR #### [facility] [address] [address] [address] Josh Jacinto Hemoglobin Ql (U) Negative Normal NEGATIVE [facility] Comment on above: Performed By: #### P REGU, ERUR #### [facility] [address] [address] [address] Josh Jacinto Ketones Ql (U) Negative Normal NEGATIVE [facility] Comment on above: Performed By: #### P REGU, ERUR #### [facility] [address] [place] [address] Dr. Josh Jacinto LEUKOCYTES Negative Normal NEGATIVE [facility] Comment on above: Performed By: #### P REGU, ERUR #### [facility] [address] [address] [address] Josh Jacinto Nitrite Ql (U) Negative Normal NEGATIVE [facility] Comment on above: Performed By: #### P REGU, ERUR #### [facility] [address] [address] [address] Josh Jacinto pH (U) 6.0 [pH] Normal 5-9 [facility] Comment on above: Performed By: #### P REGU, ERUR #### [facility] [address] [address] [address] Josh Jacinto SPEC GRAVITY 1.010 Normal 1.005-<=1.025 [facility] Comment on above: Performed By: #### P REGU, ERUR #### [facility] [address] [place] [address] Dr. Josh Jacinto UA PROTEIN Negative Normal NEGATIVE/ TRACE [facility] Comment on above: Performed By: #### P REGU, ERUR #### [facility] [address] [address] [address] Josh Jacinto UR MICRO IND NOT INDICATED Normal [facility] Comment on above: Performed By: #### P REGU, ERUR #### [facility] [address] [place] [address] Dr. Josh Jacinto Urobilinogen Qn (U) 0.2 {Pio'U}/dL Normal 0.2 - 1. [address] [facility] Comment on above: Performed By: #### P REGU, ERUR #### [facility] [address] [place] [address] Dr. Josh Jacinto URon 09-14-2022 , QUAL Negative Normal NEGATIVE [facility] Comment on above: Performed By: #### P REGU, ERUR #### [facility] [address] [place] [address] Dr. Josh Jacinto XR ABD FLAT UP_PA [...] by: JANICE KAUFMAN Date: 2022-09-14 02:[address] [facility] PAP ACOG PANEL 2: 20 to 28on 07-10-2022 . . Normal [facility] Comment on above: Performed By: #### H CGSUB #### [facility] [address] [address] [address] Josh Jacinto Age Gdln ACOG Testing 20- Normal [facility] Comment on above: Performed By: #### H CGSUB #### [facility] [address] [address] [address] Josh Jacinto DIAGNOSIS: Comment Normal [facility] Comment on above: Result Comment: NEGA TIVE FOR INTRAEPITHELIAL LESION OR MALIGNANCY. Performed By: #### H CGSUB #### [facility] [address] [address] [address] Josh Jacinto Methodology: Comment Normal [facility] Comment on above: Result Comment: This liquid based ThinPrep(R) pap test was screened with the use of an image guided system. Performed By: #### H CGSUB #### [facility] [address] [address] [address] Josh Jacinto Note: Comment Normal [facility] Comment on above: Result Comment: The Pap smear is a screening test designed to aid in the detection of premalignant and malignant conditions of the uterine cervix. It is not a diagnostic procedure and should not be used as the sole means of detecting cervical cancer. Both false-positive and false-negative reports do occur. . Performed By: #### H CGSUB #### [facility] [address] [address] [address] Josh Jacinto Performed by: Comment Normal [facility] Comment on above: Result Comment: Aurora Salazar, Reconstructive Dentist (ASCP) Performed By: #### H CGSUB #### [facility] [address] [place] [address] Dr. Josh Jacinto Reflex Criteria: Comment Normal [facility] Comment on above: Result Comment: The HPV DNA reflex criteria were not met with this specimen result therefore, no HPV testing was performed. . Performed By: #### H CGSUB #### [facility] [address] [place] [address] Dr. Josh Jacinto Specimen adequacy: Comment Normal [facility] Comment on above: Result Comment: Sati sfactory for evaluation. Endocervical and/or squamous metaplastic cells (endocervical component) are present. Performed By: #### H CGSUB #### [facility] [address] [place] [address] Dr. Josh Jacinto HCG-BETA SUBUNIT QUANTon hCG,Beta Subunit,Qnt,Serum <[address] [facility] Comment on above: Result Comment: Fema le (Non-) 0 - 5 (Postmenopausal) 0 - 8 . Female () Weeks of Gestation 3 6 - 71 4 10 - 750 5 217 - 7138 6 158 - 79629 7 [phone] -[phone] 8 [phone] 9 [phone] 10 [phone] -[phone] 12 [phone] -[phone] 14 66646 - 91986 15 85651 - 48805 16 6815 - 11531 17 [phone] - [phone] 18 [phone] - [phone] Liana ECLIA methodology Performed By: #### H CGSUB #### [facility] [address] [place] [address] Dr. Josh Jacinto US PELVIS AND TRANSVAGon [...] by: AMNA VALLADARES Date: 2022-07-05 16:[address] [facility] Cult,Urineon 05-19-2021 Cult,Urine Specimen Description .CLEAN CATCH URINE Special Requests NOT REPORTED Culture NO SIGNIFICANT GROWTH Report Status FINAL 05/19/2021 Normal [facility] Comment on above: Performed By: #### [facility] [place] #### [facility] [address] [place] [address] Customer Service Clerk: Collin De La Fuente MD Microscopic UrinalysisOrdere d By: Richar Obrien on 05-18-2021 - [employer] Work Phone: Amorphous, UA NOT REPORTED None [facility] Work Phone: Bacteria, UA 2+ Abnormal None [facility] [employer] Phone: Casts UA NOT REPORTED /LPF [facility] [employer] Work Phone: Crystals, UA NOT REPORTED None /HPF [facility] Work Phone: Epithelial Cells UA [address] [facility] [employer] Work Phone: Interpretation and review of laboratory results Abnormal [facility] [employer] Work Phone: Mucus, UA 1+ Abnormal None [facility] Phone: Other Observations UA NOT REPORTED NOT REQ. [facility] [employer] Work Phone: RBC, UA None [facility] [employer] Work Phone: Renal Epithelial, UA NOT REPORTED 0 /HPF [facility] Work Phone: Trichomonas, UA NOT REPORTED None [facility] Work Phone: WBC, UA 10 TO 20 [facility] Work Phone: Yeast, UA NOT REPORTED None [facility] Work Phone: [facility] Work Phone: UrinalysisOrdered By: Richar Obrien on 05-18-2021 Bilirubin Urine Negative NEGATIVE [facility] Work Phone: Color, UA YELLOW YELLOW [facility] Work Phone: Glucose, Ur Negative NEGATIVE [facility] Work Phone: Interpretation and review of laboratory results Abnormal [facility] Work Phone: Ketones Ql (U) Negative NEGATIVE [facility] Work Phone: Leukocyte esterase Test strip Ql (U) SMALL Abnormal NEGATIVE [facility] Work Phone: Nitrite, Urine Negative NEGATIVE [facility] Work Phone: pH, UA 6.0 [facility] Work Phone: Protein, UA Negative NEGATIVE [facility] Work Phone: Specific [place], UA >1.030 High [facility] Work Phone: Turbidity UA SLIGHTLY CLOUDY Abnormal CLEAR [facility] Work Phone: Urinalysis Comments NOT REPORTED [facility] [employer] Work Phone: Urine Hgb Negative NEGATIVE [facility] Work Phone: Urobilinogen, Urine Normal Normal [facility] Work Phone: [facility] Work Phone: Urinalysis, Routineon 2020 Bilirubin, SemiQt,Ur Negative Normal NEG [facility] Comment on above: Performed By: #### S WC #### [employer] [address] [place] [address] Customer Service Clerk: Collin De La Fuente MD Blood, Urine Negative Normal NEG [facility] Comment on above: Performed By: #### S WCGP #### [address] [address] Customer Service Clerk: Collin De La Fuente MD Clarity (U) SLIGHTLY CLOUDY Abnormal CLEAR [facility] Comment on above: Performed By: #### S WCGP #### [address] [address] Customer Service Clerk: Collin De La Fuente MD Color (U) YELLOW Normal YEL [facility] Comment on above: Performed By: #### S WCGP #### [address] [address] Customer Service Clerk: Collin De La Fuente MD Glucose Ql (U) Negative Normal NEG [facility] Comment on above: Performed By: #### S WCGP #### [address] [address] Customer Service Clerk: Collin De La Fuente MD Ketones Ql (U) Negative Normal NEG [facility] Comment on above: Performed By: #### S WCGP #### [address] [address] Customer Service Clerk: Collin De La Fuente MD Leukocyte esterase Test strip Ql (U) SMALL Abnormal NEG [facility] Comment on above: Performed By: #### S WCGP #### [address] [address] Customer Service Clerk: Collin De La Fuente MD Nitrite,Ur Negative Normal [facility] Comment on above: Performed By: #### S WCGP #### [address] [address] Customer Service Clerk: Collin De La Fuente MD PH,Ur 6.0 Normal 5.0-9.0 [facility] Comment on above: Performed By: #### S WCGP #### [address] [place] [address] Customer Service Clerk: Collin De La Fuente MD Protein Ql (U) Negative Normal NEG [facility] Comment on above: Performed By: #### S WCGP #### [address] [address] Customer Service Clerk: Collin De La Fuente MD Spec. [place],Ur >1.030 High 1.010-1.020 [facility] Comment on above: Performed By: #### S WCGP #### [address] [address] Customer Service Clerk: Collin De La Fuente MD Urobilinogen,Ur Normal Normal NORM [facility] Comment on above: Performed By: #### S WCGP #### [address] [address] Customer Service Clerk: Collin De La Fuente MD Comment NOT REPORTED Normal [facility] Comment on above: Performed By: #### S WCGP #### [address] [address] Customer Service Clerk: Collin De La Fuente MD Urinalysis,Microon 1 ----- Normal [facility] Comment on above: Performed By: #### S WCGP #### [address] [address] Customer Service Clerk: Collin De La Fuente MD Bacteria 2+ Abnormal NONE [facility] Comment on above: Performed By: #### S WCGP #### [address] [address] Customer Service Clerk: Collin De La Fuente MD Epithelial cells LM Ql (Urine sed) 5 TO 10 Normal 0-25 [facility] Comment on above: Performed By: #### S WCGP #### [address] [address] Customer Service Clerk: Collin De La Fuente MD Mucus Strands 1+ Abnormal NONE [facility] Comment on above: Performed By: #### S WCGP #### [address] [address] Customer Service Clerk: Collin De La Fuente MD Urine RBC's None Normal 0-2 [facility] Comment on above: Performed By: #### S WCGP #### [address] [address] Customer Service Clerk: Collin De La Fuente MD Urine WBC's 10 TO 20 Normal 0-5 [facility] Comment on above: Performed By: #### S WCGP #### [address] [address] Customer Service Clerk: Collin De La Fuente MD Amorphous sediment LM Ql (Urine sed) NOT REPORTED Normal NONE [facility] Comment on above: Performed By: #### S WCGP #### [address] [address] Customer Service Clerk: Collin De La Fuente MD Casts NOT REPORTED Normal [facility] Comment on above: Performed By: #### S WCGP #### [address] [address] Customer Service Clerk: Collin De La Fuente MD Crystals LM Nom (Urine sed) NOT REPORTED Normal [facility] Comment on above: Performed By: #### S WCGP #### [address] [address] Customer Service Clerk: Collin De La Fuente MD Epithelial, Renal NOT REPORTED Normal 0 [facility] Comment on above: Performed By: #### S WCGP #### [address] [address] Customer Service Clerk: Collin De La Fuente MD Other Observations NOT REPORTED Normal NREQ [facility] Comment on above: Performed By: #### S WCGP #### [address] [phone] Customer Service Clerk: Collin De La Fuente MD Trichomonas NOT REPORTED Normal NONE [facility] Comment on above: Performed By: #### S WCGP #### [facility] [address] [place], [place] [phone] Customer Service Clerk: Collin De La Fuente MD Yeast NOT REPORTED Normal NONE [facility] Comment on above: Performed By: #### S WCGP #### [facility] [address] [place], [place] [phone] Customer Service Clerk: Collin De La Fuente MD Basic Metab w/rfx MGon 04-14 (cont.) Normal [facility] Comment on above: Result Comment: Aver age GFR for 20-29 years old: 116 mL/min/1.73sq m Chronic Kidney Disease: <60 mL/min/1.73sq m Kidney failure: <15 mL/min/1.73sq m eGFR calculated using average adult body mass. Additional eGFR calculator available at: http://www.eToro/multiple_crcl_2012.htm Performed By: #### B MPX, LIP, LIVP, CDP #### [address] [place] [address] Customer Service Clerk: Amna Clements MD Anion gap [Moles/Vol] 12 mmol/L Normal 9-17 [facility] Comment on above: Performed By: #### B MPX, LIP, LIVP, CDP #### [address] [place] [address] Customer Service Clerk: Amna Clements MD BUN/CRE Ratio 19 Normal -20 [facility] Comment on above: Performed By: #### B MPX, LIP, LIVP, CDP #### [address] [place] [address] Customer Service Clerk: Amna Clements MD Calcium [Mass/Vol] 8.8 mg/dL Normal 8.6-10.4 [facility] Comment on above: Performed By: #### B MPX, LIP, LIVP, CDP #### [facility] [address] [place] [address] Customer Service Clerk: Amna Clements MD Chloride [Moles/Vol] 101 mmol/L Normal 98-107 [facility] Comment on above: Performed By: #### B MPX, LIP, LIVP, CDP #### [facility] [address] [place], [place] [phone] Customer Service Clerk: Amna Clements MD CO2 [Moles/Vol] 23 mmol/L Normal 20-31 [facility] Comment on above: Performed By: #### B MPX, LIP, LIVP, CDP #### [address] [place], [place] [phone] Customer Service Clerk: Amna Clements MD Creatinine [Mass/Vol] 0.47 mg/dL Low 0.50-0.90 [facility] Comment on above: Performed By: #### B MPX, LIP, LIVP, CDP #### [address] [place], [place] [phone] Customer Service Clerk: Amna Clements MD GFR, Amer >60 Normal >60 [facility] Comment on above: Performed By: #### B MPX, LIP, LIVP, CDP #### [facility] [address] [place] [address] [address] [place], [place] [phone] Customer Service Clerk: Amna Clements MD GFR,non Amer >60 Normal >60 [facility] Comment on above: Performed By: #### B MPX, LIP, LIVP, CDP #### [facility] [address] [place] [address] Customer Service Clerk: Amna Clements MD Glucose [Mass/Vol] 106 mg/dL High 70-99 [facility] Comment on above: Performed By: #### B MPX, LIP, LIVP, CDP #### [facility] [address] [place] [address] Customer Service Clerk: Amna Clements MD Potassium [Moles/Vol] 3.7 mmol/L Normal 3.7-5.3 [facility] Comment on above: Performed By: #### B MPX, LIP, LIVP, CDP #### [address] [place] [address] Customer Service Clerk: Amna Clements MD Sodium [Moles/Vol] 136 mmol/L Normal 135-144 [facility] Comment on above: Performed By: #### B MPX, LIP, LIVP, CDP #### [address] [place] [address] Customer Service Clerk: Amna Clements MD Staging: Normal [facility] Comment on above: Result Comment: Stag e 1: Some kidney damage normal GFR Stage 2: Mild kidney damage GFR 60-89 Stage 3: Moderate kidney damage GFR 30-59 Stage 4: Severe kidney damage GFR 15-29 Stage 5: Severe kidney damage GFR <15 ESRD - chronic treatment by dialysis or transplant Performed By: #### B MPX, LIP, LIVP, CDP #### [address] [place] [address] Customer Service Clerk: Amna Clements MD Urea nitrogen [Mass/Vol] 9 mg/dL Normal 6-20 [facility] Comment on above: Performed By: #### B MPX, LIP, LIVP, CDP #### [address] [place] [address] Customer Service Clerk: Amna Clements MD Basic Metabolic Panel w/ Ref ladi to MGOrdered By: Cisco Lopez on 04-14-2021 Anion gap [Moles/Vol] 12 mmol/L 9 - 17 mmol/L [facility] Work Phone: Calcium [Mass/Vol] 8.8 mg/dL 8.6 - 10. 4 mg/dL [facility] Work Phone: Chloride [Moles/Vol] 101 mmol/L 98 - 10 7 mmol/L [facility] Work Phone: CO2 [Moles/Vol] 23 mmol/L 20 - 31 mmol/L [facility] Work Phone: Creatinine [Mass/Vol] 0.47 mg/dL Low 0.50 - 0.90 mg/dL [facility] Work Phone: GFR >60 >60 mL/min [facility] [employer] Work Phone: GFR Non- >60 >60 mL/min [facility] Work Phone: Glucose [Mass/Vol] 106 mg/dL High 70 - 99 mg/dL [facility] Work Phone: Interpretation and review of laboratory results Abnormal [facility] Work Phone: Potassium [Moles/Vol] 3.7 mmol/L 3.7 - 5.3 mmol/L [facility] Work Phone: Sodium [Moles/Vol] 136 mmol/L 135 - 144 mmol/L [facility] Work Phone: Urea nitrogen (BldV) [Mass/Vol] 9 mg/dL 6 - 20 mg/dL [facility] Work Phone: Urea nitrogen/Creatinine (Bld) [Mass ratio] 19 [facility] Work Phone: CBC Auto DifferentialOrdered By: Cisco Lopez on 04-14-2021 Absolute Eos # 0.00 [facility] Work Phone: Absolute Immature Granulocyte 0.00 [facility] Work Phone: Absolute Lymph # 2.00 [facility] Work Phone: Absolute Prentiss # 1.[address] [facility] Work Phone: Basophils (Bld) [#/Vol] 0.00 10*3/uL [facility] Work Phone: Basophils/100 WBC (Bld) 0 % 0 - 2 % M [facility] Phone: Differential Type NOT REPORTED [facility] Phone: Eosinophils/100 WBC (Bld) 0 % Low 1 - 4 % [facility] Phone: Hematocrit (Bld) [Volume fraction] 38.4 % 36.3 - 47.1 % [facility] Phone: Hemoglobin.gastrointesti nal spec 1 Ql (Stl) 12.5 g/dL 11.9 - 15.1 g/dL [facility] Phone: Immature granulocytes/100 WBC (Bld) 0 % 0 [facility] Phone: Interpretation and review of laboratory results Abnormal [facility] Phone: Lymphocytes/100 WBC (Bld) 9 % Low 24 - 43 % [facility] Phone: MCH (RBC) [Entitic mass] 29.6 pg 25. 2 - 33.5 pg [facility] Phone: MCHC (RBC) [Mass/Vol] 32.6 g/dL 28.4 - 34.8 g/dL [facility] Phone: MCV (RBC) [Entitic vol] 91.0 fL 82.6 - 102.9 fL [facility] Phone: Monocytes/100 WBC (Bld) 8 % 3 - 12 % M [employer] Work Phone: Morphology Hay (Bld) [Interp] Normal [facility] Phone: NRBC Automated 0.0 0.0 per 100 WBC [facility] Phone: Platelet distribution width (Bld) [Ratio] 13.4 % 11.8 - 14.4 % [facility] Phone: Platelet Estimate NOT REPORTED [facility] Phone: Platelet mean volume (Bld) [Entitic vol] 10.2 fL 8.1 - 13.5 fL [facility] Phone: Platelets (Bld) [#/Vol] 321 10*3/uL [facility] Phone: RBC (Bld) [#/Vol] 4.22 10*6/uL 3.95 - 5.1 1 m/uL [employer] Work Phone: RBC (Bld) [#/Vol] NOT REPORTED [facility] Phone: Segmented neutrophils/100 WBC (Bld) 83 % High 36 - 65 % [facility] Phone: Segs Absolute 18.42 High [employer] Work Phone: WBC (Bld) [#/Vol] 22.2 10*3/uL High [facility] Phone: WBC (Bld) [#/Vol] NOT REPORTED [facility] Phone: [facility] Phone: CBC with Diffon 04-14-2021 Abs. Basophil 0.00 k/uL Normal 0.0-0.2 [facility] Comment on above: Performed By: #### S WCGP #### [employer] [facility] [place] [address] Customer Service Clerk: Collin De La Fuente MD Abs.Imm.Granulocyte 0.00 k/uL Normal 0.00-0.30 [facility] Comment on above: Performed By: #### S WCGP #### [employer] [address] [place] [address] Customer Service Clerk: Collin De La Fuente MD Abs.Neutrophil (Seg) 18.42 k/uL High 1.50-8.10 [facility] Comment on above: Performed By: #### S WCGP #### [employer] [address] [place] [address] Customer Service Clerk: Collin De La Fuente MD Basophils/100 WBC (Bld) 0 % Normal 0-2 [facility] Comment on above: Performed By: #### S WCGP #### [address] [address] Customer Service Clerk: Collin De La Fuente MD Eosinophils (Bld) [#/Vol] 0.00 10*3/uL Normal 0.00-0.44 [facility] Comment on above: Performed By: #### S WCGP #### [address] [address] Customer Service Clerk: Collin De La Fuente MD Eosinophils/100 WBC (Bld) 0 % Low 1-4 [facility] Comment on above: Performed By: #### S WCGP #### [place] [address] Customer Service Clerk: Collin De La Fuente MD Immature granulocytes/100 WBC (Bld) 0 % Normal 0 [facility] Comment on above: Performed By: #### S WCGP #### [address] [address] Customer Service Clerk: Collin De La Fuente MD Lymphocytes (Bld) [#/Vol] 2.00 10*3/uL Normal 1.10-3.70 [facility] Comment on above: Performed By: #### S WCGP #### [address] [address] Customer Service Clerk: Collin De La Fuente MD Lymphocytes/100 WBC (Bld) 9 % Low 24-43 [facility] Comment on above: Performed By: #### S WCGP #### [address] [address] Customer Service Clerk: Collin De La Fuente MD Monocytes (Bld) [#/Vol] 1.78 10*3/uL High 0.10-1.20 [facility] Comment on above: Performed By: #### S WCGP #### [address] [address] Customer Service Clerk: Collin De La Fuente MD Monocytes/100 WBC (Bld) 8 % Normal 3-12 M [facility] Comment on above: Performed By: #### S WCGP #### [address] [address] Customer Service Clerk: Collin De La Fuente MD Morphology Hay (Bld) [Interp] Normal Normal [facility] Comment on above: Performed By: #### S WCGP #### [address] [address] Customer Service Clerk: Collin De La Fuente MD Neutrophil (Seg) 83 % High 36-65 [facility] Comment on above: Performed By: #### S WCGP #### [address] [address] Customer Service Clerk: Collin De La Fuente MD Erythrocyte distribution width (RBC) [Ratio] 13.4 % Normal 11.8-14.4 [facility] Comment on above: Performed By: #### S WCGP #### [address] [address] Customer Service Clerk: Collin De La Fuente MD Hematocrit (Bld) [Volume fraction] 38.4 % Normal 36.3-47.1 [facility] Comment on above: Performed By: #### S WCGP #### [address] [address] Customer Service Clerk: Collin De La Fuente MD Hemoglobin (Bld) [Mass/Vol] 12.5 g/dL Normal 11.9-15.1 [facility] Comment on above: Performed By: #### S WCGP #### [address] [address] Customer Service Clerk: Collin De La Fuente MD MCH (RBC) [Entitic mass] 29.6 pg Normal 25.2-33.5 [facility] Comment on above: Performed By: #### S WCGP #### [address] [address] Customer Service Clerk: Collin De La Fuente MD MCHC (RBC) [Mass/Vol] 32.6 g/dL Normal 28.4-34.8 [facility] Comment on above: Performed By: #### S WCGP #### [address] [address] Customer Service Clerk: Collin De La Fuente MD MCV (RBC) [Entitic vol] 91.0 fL Normal 82.6-102.9 [facility] Comment on above: Performed By: #### S WCGP #### [address] [address] Customer Service Clerk: Collin De La Fuente MD NRBC Automated 0.0 per 100 WBC Normal 0.0 [facility] Comment on above: Performed By: #### S WCGP #### [address] [address] Customer Service Clerk: Collin De La Fuente MD Platelet mean volume (Bld) [Entitic vol] 10.2 fL Normal 8.1-13.5 [facility] Comment on above: Performed By: #### S WCGP #### [address] [address] Customer Service Clerk: Collin De La Fuente MD Platelets (Bld) [#/Vol] 321 10*3/uL Normal 138-453 [facility] Comment on above: Performed By: #### S WCGP #### [address] [address] Customer Service Clerk: Collin De La Fuente MD RBC (Bld) [#/Vol] 4.22 10*6/uL Normal 3.95-5.11 [facility] Comment on above: Performed By: #### S WCGP #### [address] [address] Customer Service Clerk: Collin De La Fuente MD WBC (Bld) [#/Vol] 22.2 10*3/uL High 3.5-11.3 [facility] Comment on above: Performed By: #### S WCGP #### [facility] [address] [place] [address] Customer Service Clerk: Collin De La Fuente MD Auto Diff Performed NOT REPORTED Normal [facility] Comment on above: Performed By: #### S WCGP #### [facility] [address] [place] [address] Customer Service Clerk: Collin De La Fuente MD Platelet Estimate NOT REPORTED Normal [facility] Comment on above: Performed By: #### S WCGP #### [facility] [address] [place] [address] Customer Service Clerk: Collin De La Fuente MD RBC morphology finding Nom (Bld) NOT REPORTED Normal [facility] Comment on above: Performed By: #### S WCGP #### [facility] [address] [place] [address] Customer Service Clerk: Collin De La Fuente MD WBC Morphology NOT REPORTED Normal [facility] Comment on above: Performed By: #### S WCGP #### [facility] [address] [place] [address] Customer Service Clerk: Collin De La Fuente MD Hepatic Function PanelOrdere d By: Cisco Lopez on 04-14-2021 Albumin [Mass/Vol] 3.7 g/dL 3.5 - 5.2 g/dL [facility] Phone: Albumin/Globulin [Mass ratio] 1.1 {ratio} [facility] Phone: ALP (Bld) [Catalytic activity/Vol] 68 U/L 35 - 104 U/L [facility] Phone: ALT [Catalytic activity/Vol] 36 U/L High 5 - 33 U/L [facility] Phone: AST [Catalytic activity/Vol] 37 U/L High <32 [facility] Phone: Bilirubin [Mass/Vol] mg/dL Low 0.3 - 1 .2 mg/dL [facility] Phone: Bilirubin, Indirect CANNOT BE CALCULATED 0.00 - 1.00 mg/dL [facility] Phone: Bilirubin.indirect [Mass/Vol] mg/dL <0.31 mg/dL [facility] Phone: Free PSA/Total PSA [Mass fraction] 7.0 g/dL 6.4 - 8.3 g/dL [facility] Phone: Globulin NOT REPORTED 1.5 - 3.8 g/dL [facility] Phone: Interpretation and review of laboratory results Abnormal [facility] Phone: [facility] Phone: Laboratory - Chemistry and C hemistry - challengeOrdered By: Cisco Lopez on 04-14-2021 GFR/1.73 sq M.predicted MDRD (S/P/Bld) [Vol rate/Area] [facility] Phone: Comment on above: Average GFR for 20-2 9 years old: 116 mL/min/1.73sq m Chronic Kidney Disease: <60 mL/min/1.73sq m Kidney failure: <15 mL/min/1.73sq m eGFR calculated using average adult body mass. Additional eGFR calculator available at: http://www.[employer]Works/multiple_crcl_2012.htm Stage 1: Some kidney damage normal GFR Stage 2: Mild kidney damage GFR 60-89 Stage 3: Moderate kidney damage GFR 30-59 Stage 4: Severe kidney damage GFR 15-29 Stage 5: Severe kidney damage GFR <15 ESRD - chronic treatment by dialysis or transplant Lipaseon 04-14-2021 Lipase [Catalytic activity/Vol] 40 U/L Normal 13-60 [facility] Comment on above: Performed By: #### B MPX, LIP, LIVP, CDP #### [facility] [address] [place], [place] [phone] Customer Service Clerk: Amna Clements MD LipaseOrdered By: Brandy on 04-14-2021 Lipase [Catalytic activity/Vol] 40 U/L 13 - 60 U/L [facility] Work Phone: Liver Profileon 04-14-2021 Bilirubin [Mass/Vol] mg/dL Low 0.3-1.2 [facility] Comment on above: Performed By: #### B MPX, LIP, LIVP, CDP #### [facility] [address] [place], [place] [phone] Customer Service Clerk: Amna Clements MD Bilirubin, Indirect CANNOT BE CALCULATED Normal 0.00-1 .00 [facility] Comment on above: Performed By: #### B MPX, LIP, LIVP, CDP #### [facility] [address] [place] [address] [address] [place], [place] [phone] Customer Service Clerk: Amna Clements MD Albumin [Mass/Vol] 3.7 g/dL Normal 3.5-5.2 [facility] Comment on above: Performed By: #### B MPX, LIP, LIVP, CDP #### [address] [place], [place] [phone] Customer Service Clerk: Amna Clements MD Albumin/Glob Ratio 1.1 Normal 1.0-2.5 [facility] Comment on above: Performed By: #### B MPX, LIP, LIVP, CDP #### [facility] [address] [place], [place] [phone] Customer Service Clerk: Amna Clements MD Alkaline Phos 68 U/L Normal 35-104 [facility] Comment on above: Performed By: #### B MPX, LIP, LIVP, CDP #### [facility] [address] [place] [address] Customer Service Clerk: Amna Clements MD ALT [Catalytic activity/Vol] 36 U/L High 5-33 [facility] Comment on above: Performed By: #### B MPX, LIP, LIVP, CDP #### [address] [place] [address] Customer Service Clerk: Amna Clements MD AST [Catalytic activity/Vol] 37 U/L High <32 [facility] Comment on above: Performed By: #### B MPX, LIP, LIVP, CDP #### [address] [place], [place] [phone] Customer Service Clerk: Amna Clements MD Bilirubin.indirect [Mass/Vol] mg/dL Normal <0.31 [facility] Comment on above: Performed By: #### B MPX, LIP, LIVP, CDP #### [address] [place] [address] Customer Service Clerk: Amna Clements MD Protein [Mass/Vol] 7.0 g/dL Normal 6.4-8.3 [facility] Comment on above: Performed By: #### B MPX, LIP, LIVP, CDP #### [address] [place] [address] Customer Service Clerk: Amna Clements MD Globulin Fraction NOT REPORTED Normal 1.5-3.8 [facility] Comment on above: Performed By: #### B MPX, LIP, LIVP, CDP #### [address] [place], [place] [phone] Customer Service Clerk: Amna Clements MD Microscopic UrinalysisOrdere d By: Cisco Lopez on 04-14-2021 - [facility] Work Phone: Amorphous, UA NOT REPORTED None [facility] Work Phone: Bacteria, UA TRACE Abnormal None [facility] Work Phone: Casts UA NOT REPORTED /LPF [facility] Work Phone: Crystals, UA NOT REPORTED None /HPF [facility] Work Phone: Epithelial Cells UA 10 TO 20 [facility] Work Phone: Interpretation and review of laboratory results Abnormal [facility] Work Phone: Mucus, UA TRACE Abnormal None [facility] Work Phone: Other Observations UA NOT REPORTED NOT REQ. [facility] Work Phone: RBC, UA 0 TO 2 [facility] Work Phone: Renal Epithelial, UA NOT REPORTED 0 /HPF Me [facility] Work Phone: Trichomonas, UA NOT REPORTED None [facility] Work Phone: WBC, UA 0 TO 2 [facility] Work Phone: Yeast, UA NOT REPORTED None [facility] Work Phone: [facility] Work Phone: No Panel InformationOrdered By: Cisco Lopez on 04-14-[address] [facility] [employer] Work Phone: UA w/Reflex Cultureon 2020 Bilirubin, SemiQt,Ur Negative Normal NEG [facility] Comment on above: Performed By: #### S WCGP #### [employer] [address] [place], [place] [phone] Customer Service Clerk: Collin De La Fuente MD Blood, Urine Negative Normal NEG [facility] Comment on above: Performed By: #### S WCGP #### [facility] [facility] [address] [place] [address] Customer Service Clerk: Collin De La Fuente MD Clarity (U) CLEAR Normal CLEAR [facility] Comment on above: Performed By: #### S WCGP #### [facility] [place], [place] [phone] Customer Service Clerk: Collin De La Fuente MD Color (U) YELLOW Normal YEL [facility] Comment on above: Performed By: #### S WCGP #### [address] [address] Customer Service Clerk: Collin De La Fuente MD Glucose Ql (U) Negative Normal NEG [facility] Comment on above: Performed By: #### S WCGP #### [address] [address] Customer Service Clerk: Collin De La Fuente MD Ketones Ql (U) TRACE Abnormal NEG [facility] in Hospital Comment on above: Performed By: #### S WCGP #### [address] [address] Customer Service Clerk: Collin De La Fuente MD Leukocyte esterase Test strip Ql (U) Negative Normal NEG [facility] Comment on above: Performed By: #### S WCGP #### [address] [address] Customer Service Clerk: Collin De La Fuente MD Nitrite,Ur Negative Normal NEG [facility] Comment on above: Performed By: #### S WCGP #### [address] [address] Customer Service Clerk: Collin De La Fuente MD PH,Ur 5.5 Normal 5.0-9.0 [facility] Comment on above: Performed By: #### S WCGP #### [address] [address] Customer Service Clerk: Collin De La Fuente MD Protein Ql (U) TRACE Abnormal NEG [facility] in Hospital Comment on above: Performed By: #### S WCGP #### [address] [address] Customer Service Clerk: Collin De La Fuente MD Spec. [place],Ur >1.030 High 1.010-1.020 [facility] Comment on above: Performed By: #### S WCGP #### [facility] [address] [phone] Customer Service Clerk: Collin De La Fuente MD Urobilinogen,Ur Normal Normal NORM [facility] Comment on above: Performed By: #### S WCGP #### [facility] [address] [place], [place] [phone] Customer Service Clerk: Collin De La Fuente MD Comment NOT REPORTED Normal [facility] Comment on above: Performed By: #### S WCGP #### [facility] [address] [place] [address] Customer Service Clerk: Collin De La Fuente MD Urinalysis Reflex to Culture Ordered By: Cisco Lopez on 04-14-2021 Bilirubin Urine Negative NEGATIVE [facility] Work Phone: Color, UA YELLOW YELLOW [facility] [employer] Work Phone: Glucose, Ur Negative NEGATIVE [facility] Work Phone: Interpretation and review of laboratory results Abnormal [facility] Work Phone: Ketones Ql (U) TRACE Abnormal NEGATIVE [facility] Work Phone: Leukocyte esterase Test strip Ql (U) Negative NEGATIVE [facility] Phone: Nitrite, Urine Negative NEGATIVE [facility] Work Phone: pH, UA 5.[address] [facility] Work Phone: Protein, UA TRACE Abnormal NEGATIVE [facility] Work Phone: Specific [place], UA >1.030 High [facility] [employer] Work Phone: Turbidity UA CLEAR CLEAR [facility] Work Phone: Urinalysis Comments NOT REPORTED [facility] Work Phone: Urine Hgb Negative NEGATIVE [facility] Work Phone: Urobilinogen, Urine Normal Normal [facility] [employer] Phone: [facility] Work Phone: Urinalysis,Microon 05-20-202 1 ----- Normal [facility] Comment on above: Performed By: #### U ROSAO, UA #### [facility] [address] [place], [place] [phone] Customer Service Clerk: Amna Clements MD Bacteria TRACE Abnormal NONE [facility] Comment on above: Performed By: #### U ROSAO, UA #### [facility] [address] [place], [place] [phone] Customer Service Clerk: Amna Clements MD Epithelial cells LM Ql (Urine sed) 10 TO 20 Normal 0-25 [facility] Comment on above: Performed By: #### U ROSAO, UA #### [address] [place] [address] Customer Service Clerk: Amna Clements MD Mucus Strands TRACE Abnormal [facility] Comment on above: Performed By: #### U ROSAO, UA #### [facility] [address] [place] [address] Dr. [place], [place] [phone] Customer Service Clerk: Amna Clements MD Urine RBC's 0 TO 2 Normal 0-2 [facility] Comment on above: Performed By: #### U MICAO, UA #### [address] [place] [address] Customer Service Clerk: Amna Clements MD Urine WBC's 0 TO 2 Normal 0-5 [facility] Comment on above: Performed By: #### U MICAO, UA #### [facility] [address] [place] [address] Customer Service Clerk: Amna Clements MD Amorphous sediment LM Ql (Urine sed) NOT REPORTED Normal [facility] Comment on above: Performed By: #### U MICAO, UA #### [facility] [address] [place] [address] [place] [place], [place] [phone] Customer Service Clerk: Amna Clements MD Casts NOT REPORTED Normal [facility] Comment on above: Performed By: #### U MICAO, UA #### [facility] [address] [place] [address] Customer Service Clerk: Amna Clements MD Crystals LM Nom (Urine sed) NOT REPORTED Normal [facility] Comment on above: Performed By: #### U MICAO, UA #### [facility] [address] [place], [facility] Customer Service Clerk: Amna Clements MD Epithelial, Renal NOT REPORTED Normal 0 [facility] Comment on above: Performed By: #### U ROSAO, UA #### [facility] [address] [place] [address] Customer Service Clerk: Amna Clements MD Other Observations NOT REPORTED Normal NREQ [facility] Comment on above: Performed By: #### U ROSAO, UA #### [facility] [address] [place] [address] Customer Service Clerk: Amna Clements MD Trichomonas NOT REPORTED Normal [facility] Comment on above: Performed By: #### U ROSAO, UA #### [facility] [address] [place] [address] Customer Service Clerk: Amna Clements MD Yeast NOT REPORTED Normal [facility] Comment on above: Performed By: #### U ROSAO, UA #### [facility] [address] [place] [address] Customer Service Clerk: Amna Clements MD D-Dimer Teston 03-24-2021 D-Dimer Test 0.44 mg/L FEU Normal 0.00-0.59 [facility] Comment on above: Result Comment: When combined [...] with distal DVT. Performed By: #### S [facility] #### [facility] [address] [place], [place] [phone] Customer Service Clerk: Collin De La Fuente MD D-Dimer, QuantitativeOrdered By: Lidia Núñez on 03-23-2021 D-Dimer, Quant 0.44 [employer] [facility] Work Phone: Comment on above: When combined [...] Ampon 03-11 Chlamydia Probe Negative Normal NEG [facility] Comment on above: Result Comment: CHLA MYDIA [...] target. Performed By: #### S WCGP #### [address] [phone] Customer Service Clerk: Collin De La Fuente MD Gonorrhea Probe Negative Normal [facility] Comment on above: Result Comment: NEIS [...] target. Performed By: #### S WCGP #### [address] [phone] Customer Service Clerk: Collin De La Fuente MD Cult,Urineon 03-11-2021 Cult,Urine Specimen Description .CLEAN CATCH URINE Special Requests NOT REPORTED Culture NO SIGNIFICANT GROWTH Report Status FINAL 03/11/2021 Normal [facility] Comment on above: Performed By: #### U RC #### [address] [address] Customer Service Clerk: Collin De La Fuente MD [facility] [address] [place] [address] [place] [address] Customer Service Clerk: Amna Clements MD HCG, ,Urineon 03-10 Beta HCG ( test) Ql (U) Positive Abnormal NEG [facility] Comment on above: Result Comment: If HCG results do not concur with clinical observations, additional testing to confirm result is recommended. This test is not labeled for use as a tumor marker. [facility] has confirmed the use of plasma for this test. This has not been cleared or approved by the U.S. Food and Drug Administration. The FDA has determined that such clearance is not necessary. Performed By: #### S WCGP #### [address] [place], [place] [phone] Customer Service Clerk: Collin De La Fuente MD Trichomonas/Wet Prepon 03-10 Trichomonas/Wet Prep Specimen Descriptio n .VAGINA Special Requests NOT REPORTED Direct Exam NO TRICHOMONAS SEEN NO YEAST OBSERVED RARE CLUE CELLS SEEN Report Status FINAL 03/10/2021 Normal [facility] Comment on above: Performed By: #### W P #### [facility] [address] [place] [address] Customer Service Clerk: Amna Clements MD UA w/Reflex Cultureon 2020 Acetoacetic Acid,Ur Negative Normal NEG [facility] Comment on above: Performed By: #### S WCGP #### [address] [phone] Customer Service Clerk: Collin De La Fuente MD Bilirubin, SemiQt,Ur Negative Normal [facility] Comment on above: Performed By: #### S WCGP #### [address] [phone] Customer Service Clerk: Collin De La Fuente MD Color (U) YELLOW Normal [facility] Comment on above: Performed By: #### S WCGP #### [address] [phone] Customer Service Clerk: Collin De La Fuente MD Glucose Ql (U) Negative Normal [facility] Comment on above: Performed By: #### S WCGP #### [address] [phone] Customer Service Clerk: Collin De La Fuente MD Hemoglobin, Ur Negative Normal NEG [facility] Comment on above: Performed By: #### S WCGP #### [address] [address] Customer Service Clerk: Collin De La Fuente MD Leukocyte esterase Test strip Ql (U) LARGE Abnormal NEG [facility] Comment on above: Performed By: #### S WCGP #### [address] [address] Customer Service Clerk: Collin De La Fuente MD Nitrite,Ur Negative Normal NEG [facility] Comment on above: Performed By: #### S WCGP #### [address] [address] Customer Service Clerk: Collin De La Fuente MD PH,Ur 7.5 Normal 5.0-9.0 [facility] Comment on above: Performed By: #### S WCGP #### [address] [address] Customer Service Clerk: Collin De La Fuente MD Protein Ql (U) Negative Normal NEG [facility] in Hospital Comment on above: Performed By: #### S WCGP #### [address] [address] Customer Service Clerk: Collin De La Fuente MD Spec. [place],Ur 1.020 Normal 1.010-1.020 [facility] Comment on above: Performed By: #### S WCGP #### [address] [address] Customer Service Clerk: Collin De La Fuente MD Turbidity CLOUDY Abnormal CLEAR [facility] Comment on above: Performed By: #### S WCGP #### [address] [address] Customer Service Clerk: Collin De La Fuente MD Urobilinogen,Ur Normal Normal NORM [facility] Comment on above: Performed By: #### S WCGP #### [address] [address] Customer Service Clerk: Collin De La Fuente MD Comment NOT REPORTED Normal [facility] Comment on above: Performed By: #### S WCGP #### [address] [address] Customer Service Clerk: Collin De La Fuente MD Urinalysis,Microon 1 ----- Normal [facility] Comment on above: Performed By: #### S WCGP #### [address] [address] Customer Service Clerk: Collin De La Fuente MD Amorphous sediment LM Ql (Urine sed) 1+ Abnormal NONE [facility] Comment on above: Performed By: #### S WCGP #### [address] [address] Customer Service Clerk: Collin De La Fuente MD Bacteria 3+ Abnormal NONE [facility] Comment on above: Performed By: #### S WCGP #### [address] [address] Customer Service Clerk: Collin De La Fuente MD Epithelial cells LM Ql (Urine sed) 20 TO 50 Normal 0-25 [facility] Comment on above: Performed By: #### S WCGP #### [address] [address] Customer Service Clerk: Collin De La Fuente MD Urine RBC's None Normal 0-2 [facility] Comment on above: Performed By: #### S WCGP #### [facility] [address] [place] [address] Customer Service Clerk: Collin De La Fuente MD Urine WBC's 10 TO 20 Normal 0-5 [facility] Comment on above: Performed By: #### S WCGP #### [address] [address] Customer Service Clerk: Collin De La Fuente MD Casts NOT REPORTED Normal [facility] Comment on above: Performed By: #### S WCGP #### [facility] [address] [place] [address] Customer Service Clerk: Collin De La Fuente MD Crystals LM Nom (Urine sed) NOT REPORTED Normal [facility] Comment on above: Performed By: #### S WCGP #### [facility] [address] [place] [address] Customer Service Clerk: Collin De La Fuente MD Epithelial, Renal NOT REPORTED Normal [address] [place] [address] Comment on above: Performed By: #### S WCGP #### [facility] [address] [place] [address] Customer Service Clerk: Collin De La Fuente MD Mucus Strands NOT REPORTED Normal [facility] Comment on above: Performed By: #### S WCGP #### [address] [address] Customer Service Clerk: Collin De La Fuente MD Other Observations NOT REPORTED Normal NREQ [facility] Comment on above: Performed By: #### S WCGP #### [address] [place] [address] Customer Service Clerk: Collin De La Fuente MD Trichomonas NOT REPORTED Normal [facility] Comment on above: Performed By: #### S WCGP #### [facility] [address] [place] [address] Customer Service Clerk: Collin De La Fuente MD Yeast NOT REPORTED Normal [facility] Comment on above: Performed By: #### S WCGP #### [facility] [address] [place] [address] Customer Service Clerk: Collin De La Fuente MD Cult,Urineon 03-02-2021 Cult,Urine Specimen Description .CLEAN CATCH URINE Special Requests NOT REPORTED Culture NO SIGNIFICANT GROWTH Report Status FINAL 03/02/2021 Normal [facility] Comment on above: Performed By: #### U RC #### [address] [address] Customer Service Clerk: Collin De La Fuente MD [facility] [address] [place] [address] Customer Service Clerk: Amna Clements MD C. Trachomatis, External Res ultOrdered By: Historical Provider on 03-01-2021 C. Trachomatis, External Result Negative [facility] [employer] Work Phone: Comment on above: William Joel RN/confirmed with Igor Kinsey RN N. Gonorrhoeae, External Res ultOrdered By: Historical Provider on 03-01-2021 N. Gonorrhoeae, External Result Negative [facility] Work Phone: Comment on above: William Joel RN/confirmed with Igor Kinsey RN No Panel InformationOrdered By: Historical Provider on 03-01-2021 [facility] Work Phone: Microscopic Urinalysison Amorphous, UA NOT REPORTED None [facility] Work Phone: Bacteria, UA NOT REPORTED None [facility] Work Phone: Casts UA NOT REPORTED /LPF [facility] Work Phone: Crystals, UA NOT REPORTED None /HPF [facility] Work Phone: Epithelial Cells UA [address] [facility] Work Phone: Mucus, UA NOT REPORTED None [facility] Work Phone: Other Observations UA NOT REPORTED NOT REQ. [facility] Work Phone: RBC (U) [#/Vol] 0 TO 2 [facility] Work Phone: Renal Epithelial, UA NOT REPORTED 0 /HPF [facility] Work Phone: Trichomonas, UA NOT REPORTED None [facility] Work Phone: WBC, UA [address] [facility] Work Phone: Yeast, UA NOT REPORTED None [facility] Work Phone: - [facility] Work Phone: Otheron 02-28-2021 Living intrauterine with an estimated gestational age of 13 weeks and 1 day by current ultrasound Cursogram Phone: Dario, Mhpn Incoming Radiant Results From [employer] - 02/28/2021 1:48 PM EDT EXAMINATION: TRANSABDOMINAL [...] posteriorly to the right. Pole: Single pole [place] Rump Length: 6.8 cm Heart Rate: 160 [...] weeks and 1 day by current ultrasound [facility] Phone: EXAMINATION: TRANSABDOMINAL FIRST TRIMESTER OBSTETRIC PELVIC [...] posteriorly to the right. Pole: Single pole [place] Rump Length: 6.8 cm Heart Rate: 160 [...] days Estimated Due Date: 09/04/2021, 08/30/2021 respectively [facility] Phone: US DUP ABD PEL RETRO SCROT [...] posteriorly to the right. Pole: Single pole [place] Rump Length: 6.8 cm Heart Rate: 160 [...] Mariano Min MD 02/28/21 Final result Normal [facility] US OB LESS THAN 14 [...] posteriorly to the right. Pole: Single pole [place] Rump Length: 6.8 cm Heart Rate: 160 [...] Mariano Min MD 02/28/21 Final result Normal [facility] Urinalysis, Routineon 2020 Acetoacetic Acid,Ur Negative Normal NEG [facility] Comment on above: Performed By: #### U MICAO, UA #### [facility] [address] [place] [address] Customer Service Clerk: Amna Clements MD Bilirubin, SemiQt,Ur Negative Normal NEG [facility] Comment on above: Performed By: #### U MICAO, UA #### [facility] [address] [place] [address] Customer Service Clerk: Amna Clements MD Color (U) YELLOW Normal YEL [facility] Comment on above: Performed By: #### U MICAO, UA #### [facility] [address] [place], [place] [phone] Customer Service Clerk: Amna Clements MD Glucose Ql (U) Negative Normal NEG [facility] in Hospital Comment on above: Performed By: #### U MICAO, UA #### [facility] [address] [place], [place] 6460083 Customer Service Clerk: Amna Clements MD Hemoglobin, Ur Negative Normal NEG [facility] in Hospital Comment on above: Performed By: #### U MICAO, UA #### [facility] [address] [place] [address] [place]. [place], [place] [phone] Customer Service Clerk: Amna Clements MD Leukocyte esterase Test strip Ql (U) MODERATE Abnormal NEG [facility] Comment on above: Performed By: #### U MICAO, UA #### [facility] [address] [place] [address] [place] [address] Customer Service Clerk: Amna Clements MD Nitrite,Ur Negative Normal NEG [facility] Comment on above: Performed By: #### U MICAO, UA #### [facility] [address] [place] [address] [place] [place], [place] 3227983 Customer Service Clerk: Amna Clements MD PH,Ur 7.5 Normal 5.0-9.0 [facility] Comment on above: Performed By: #### U MICAO, UA #### [facility] [address] [place] [address] Dr. [place], [place] [phone] Customer Service Clerk: Amna Clements MD Protein Ql (U) Negative Normal NEG [facility] in Hospital Comment on above: Performed By: #### U MICAO, UA #### [facility] [address] [place], [place] 0752783 Customer Service Clerk: Amna Clements MD Spec. [place],Ur 1.020 Normal 1.010-1.020 [facility] Comment on above: Performed By: #### U MICAO, UA #### [facility] [address] [place] [address] Customer Service Clerk: Amna Clements MD Turbidity CLEAR Normal CLEAR [facility] Comment on above: Performed By: #### U MICAO, UA #### [facility] [address] [place], [place] 2990383 Customer Service Clerk: Amna Clements MD Urobilinogen,Ur Normal Normal NORM [facility] Comment on above: Performed By: #### U MICAO, UA #### [facility] [address] [place], [place] [phone] Customer Service Clerk: Amna Clements MD Comment NOT REPORTED Normal [facility] Comment on above: Performed By: #### U MICAO, UA #### [facility] [address] [place] [address] Customer Service Clerk: Amna Clements MD Urinalysis, reflex to micros copicon 02-28-2021 Bilirubin Urine Negative NEGATIVE [facility] Work Phone: Color, UA YELLOW YELLOW [facility] Work Phone: Glucose, Ur Negative NEGATIVE [facility] Work Phone: Interpretation and review of laboratory results Abnormal [facility] [employer] Phone: Ketones Ql (U) Negative NEGATIVE [facility] Work Phone: Leukocyte esterase Test strip Ql (U) MODERATE Abnormal NEGATIVE [facility] [employer] Phone: Nitrite, Urine Negative NEGATIVE [facility] Work Phone: pH, UA 7.5 [facility] Work Phone: Protein (U) [Mass/Vol] Negative NEGATIVE [facility] [employer] Work Phone: Specific [place], UA 1.020 [facility] [employer] Phone: Turbidity UA CLEAR CLEAR [facility] [employer] Phone: Urinalysis Comments NOT REPORTED [facility] [employer] Work Phone: Urine Hgb Negative NEGATIVE [facility] Phone: Urobilinogen, Urine Normal Normal [facility] [employer] Phone: Urinalysis,Microon 1 ----- Normal [facility] Comment on above: Performed By: #### U MICAO, UA #### [facility] [address] [place], [place] [phone] Customer Service Clerk: Amna Clements MD Epithelial cells LM Ql (Urine sed) 50 TO 100 Normal 0-25 [facility] Comment on above: Performed By: #### U MICAO, UA #### [facility] [address] [place], [place] [phone] Customer Service Clerk: Amna Clements MD Urine RBC's 0 TO 2 Normal 0-2 [facility] Comment on above: Performed By: #### U MICAO, UA #### [facility] [address] [place], [place] 0661283 Customer Service Clerk: Amna Clements MD Urine WBC's 20 TO 50 Normal 0-5 [facility] Comment on above: Performed By: #### U MICAO, UA #### [facility] [address] [place], [place] 7673083 Customer Service Clerk: Amna Clements MD Amorphous sediment LM Ql (Urine sed) NOT REPORTED Normal [facility] Comment on above: Performed By: #### U MICAO, UA #### [facility] [address] [place] [place] [address] Customer Service Clerk: Amna Clements MD Bacteria NOT REPORTED Normal [facility] Comment on above: Performed By: #### U MICAO, UA #### [facility] [address] [place], [place] 06[address] Customer Service Clerk: Amna Clements MD Casts NOT REPORTED Normal [facility] Comment on above: Performed By: #### U ROSAO, UA #### [facility] [address] [place], [place] [phone] Customer Service Clerk: Amna Clements MD Crystals LM Nom (Urine sed) NOT REPORTED Normal NONE [facility] Comment on above: Performed By: #### U ROSAO, UA #### [facility] [address] [place] [address] Customer Service Clerk: Amna Clements MD Epithelial, Renal NOT REPORTED Normal 0 [facility] Comment on above: Performed By: #### U ROSAO, UA #### [facility] [address] [place], [place] 0508183 Customer Service Clerk: Amna Clements MD Mucus Strands NOT REPORTED Normal NONE [facility] Comment on above: Performed By: #### U ROSAO, UA #### [facility] [address] [place] [address] Customer Service Clerk: Amna Clements MD Other Observations NOT REPORTED Normal NREQ [facility] Comment on above: Performed By: #### U ROSAO, UA #### [facility] [address] [place] [address] Customer Service Clerk: Amna Clements MD Trichomonas NOT REPORTED Normal NONE [facility] [facility] Comment on above: Performed By: #### U MICAO, UA #### [facility] [address] [place] [address] Customer Service Clerk: Amna Clements MD Yeast NOT REPORTED Normal [facility] Comment on above: Performed By: #### U MICAO, UA #### [facility] [address] [place] [address] Customer Service Clerk: Amna Clements MD ABO, External ResultOrdered By: Historical Provider on 02-17-2021 ABO, External Result [facility] Phone: Comment on above: William Joel RN/confirmed with Igor Kinsey RN HIV, External ResultOrdered By: Historical Provider on 02-17-2021 HIV, External Result Non-Reactive [facility] Phone: Comment on above: William Joel RN/confirmed with Igor Kinsey RN Hepatitis B, External Result Ordered By: Historical Provider on 02-17-2021 Hep B, External Result Negative [facility] Phone: Comment on above: William Joel RN/confirmed with Igor Kinsey RN Hepatitis C Antibody, Track Car Operator al ResultOrdered By: Historical Provider on 02-17-2021 Hepatitis C Antibody, External Result Negative [facility] Phone: Comment on above: William Joel RN/confirmed with Igor Kinsey RN No Panel InformationOrdered By: Historical Provider on 02-17-2021 [facility] Phone: RPR, External LabOrdered By: Historical Provider on 02-17-2021 RPR, External Result Non-Reactive [facility] Phone: Comment on above: William Joel RN/confirmed with Igor Kinsey RN Rh Factor, External ResultOr dered By: Historical Provider on 02-17-2021 Rh Factor, External Result Positive [facility] Phone: Comment on above: iWlliam Joel RN/confirmed with Igor Kinsey RN Rubella Titer, External Resu ltOrdered By: Historical Provider on 02-17-2021 Rubella Titer, External Result immune [facility] Phone: Comment on above: William Joel RN/confirmed with Igor Kinsey RN Vital Signs Date Time Vital Sign Value Performing Clinician Leydi carter 06-16-2021 23:58-0400 Diastolic blood pressure 62 mm[Hg] Richar Obrien APRN - CN Work Phone: [facility] Phone: 06-16-2021 23:58-0400 Heart rate 91 /min Richar Obrien APRN - CNM Work Phone: [facility] Work Phone: 06-16-2021 23:58-0400 Respiratory rate 16 /min Richar Obrien IRON SETTER - CNM Work Phone: [facility] Work Phone: 06-16-2021 23:58-0400 Systolic blood pressure 107 mm[Hg] Richar Obrien IRON SETTER - CNM Work Phone: [facility] Work Phone: 06-16-2021 20:33-0400 Body temperature 97.7 [degF] Richar Obrien IRON SETTER - CNM Work Phone: [facility] Work Phone: 05-24-2021 23:40-0400 Body temperature 97.9 [degF] Rema Pool IRON SETTER - CNM Work Phone: [facility] Work Phone: 05-24-2021 23:40-0400 Respiratory rate 20 /min Rema Pool IRON SETTER - CNM Work Phone: [facility] Work Phone: 05-24-2021 23:32-0400 Diastolic blood pressure 70 mm[Hg] Rema Pool IRON SETTER - CNM Work Phone: [facility] Work Phone: 05-24-2021 23:32-0400 Heart rate 109 /min Rema Pool IRON SETTER - CNM Work Phone: [facility] Work Phone: 05-24-2021 23:32-0400 Systolic blood pressure 120 mm[Hg] Rema Pool IRON SETTER - CNM Work Phone: [facility] Work Phone: 05-18-2021 08:59-0400 Diastolic blood pressure 55 mm[Hg] Richar Obrien IRON SETTER - CNM Work Phone: [facility] Work Phone: 05-18-2021 08:59-0400 Heart rate 100 /min Richar Gonzalez CNM Work Phone: [facility] Work Phone: 05-18-2021 08:59-0400 Systolic blood pressure 102 mm[Hg] Richar Obrien APRN - CNYinka Work Phone: [facility] Work Phone: 05-18-2021 06:45-0400 Body height 154.9 cm Richar Gonzalez CNYinka Work Phone: [facility] Work Phone: 05-18-2021 06:45-0400 Body mass index (BMI) [Ratio] 29.29 kg/m2 Richar Gonzalez CNM Work Phone: [facility] Work Phone: 05-18-2021 06:45-0400 Body weight 70.31 kg Richar Gonzalez CNM Work Phone: [facility] Work Phone: 05-18-2021 06:41-0400 Body temperature 98.4 [degF] Richar Gonzalez CNYinka Work Phone: [facility] Work Phone: 05-18-2021 06:41-0400 Respiratory rate 20 /min Richar Gonzalez CNM Work Phone: [facility] Work Phone: 04-14-2021 03:30-0400 Diastolic blood pressure 65 mm[Hg] Cisco Andes DO Work Phone: [facility] Work Phone: 04-14-2021 03:30-0400 SaO2% (BldA) [Mass fraction] 100 % Cisco Andes DO Work Phone: [facility] Work Phone: 04-14-2021 03:30-0400 Systolic blood pressure 107 mm[Hg] Cisco Andes DO Work Phone: [facility] Work Phone: 04-14-2021 01:57-0400 Heart rate 108 /min Cisco Andes DO Work Phone: [facility] Work Phone: 04-14-2021 01:35-0400 Respiratory rate 16 /min Cisco Andes DO Work Phone: [facility] Work Phone: 04-14-2021 01:33-0400 Body temperature 97.7 [degF] Cisco Andes DO Work Phone: [facility] Work Phone: 03-23-2021 21:13-0400 Body temperature 97.59 [degF] Lidia Núñez MD Work Phone: [facility] Work Phone: 03-23-2021 21:13-0400 Diastolic blood pressure 70 mm[Hg] Lidia Núñez MD Work Phone: [facility] Work Phone: 03-23-2021 21:13-0400 Heart rate 98 /min Lidia Núñez MD Work Phone: [facility] Work Phone: 03-23-2021 21:13-0400 Respiratory rate 16 /min Lidia Núñez MD Work Phone: [facility] Work Phone: 03-23-2021 21:13-0400 SaO2% (BldA) [Mass fraction] 98 % Lidia Núñez MD Work Phone: [facility] Work Phone: 03-23-2021 21:13-0400 Systolic blood pressure 119 mm[Hg] Lidia Núñez MD Work Phone: [facility] Phone: 02-28-2021 12:28-0400 Body Temperature 97.81 [degF] Meche Blood [facility] Phone: 02-28-2021 12:28-0400 BP Diastolic 72 mm[Hg] Meche [facility] Phone: 02-28-2021 12:28-0400 BP Systolic 124 mm[Hg] Meche Blood [facility] Phone: 02-28-2021 12:28-0400 Pulse (Heart Rate) 97 /min [facility] [employer] Phone: 02-28-2021 12:28-0400 Pulse Oximetry 100 % [facility] [employer] Phone: 02-28-2021 12:28-0400 Respiratory Rate 15 /min Meche Blood [facility] Phone: Encounters Encounter Date Encounter Type Care Provider Facility Start: 08-13-2024 End: 08-13-2024 ambulatory MIGUEL CARBONE Not Available Start: 07-21-2024 End: 07-21-2024 ambulatory GEO RIGO Not Available Start: 06-19-2024 End: 06-19-2024 ambulatory GEO RIGO Not Available Start: 05-06-2024 End: 05-06-2024 ambulatory GEO RIGO Not Available Start: 03-20-2024 End: 03-20-2024 ambulatory GEO RIGO Not Available Start: 01-21-2024 End: 01-21-2024 ambulatory GEO RIGO Not Available Start: 01-15-2024 End: 01-15-2024 ambulatory MIGUEL COOPERER Not Available Start: 12-13-2023 End: 12-13-2023 ambulatory SINA ROE Not Available Start: 11-08-2023 End: 11-08-2023 ambulatory SINA JYOTHI Not Available Start: 10-31-2023 End: 10-31-2023 ambulatory GEO RIGO Not Available Start: 10-24-2023 End: 10-24-2023 ambulatory GEO SIERRA Not Available Start: 10-16-2023 End: 10-16-2023 ambulatory SINA ROE Not Available Start: 10-10-2023 End: 10-10-2023 ambulatory GEO SIERRA Not Available Start: 04-16-2023 End: 04-16-[address] NONE LISTED REQUEST Facility:[facility] Start: 04-16-2023 End: 04-17-[address] NONE LISTED REQUEST Facility:[facility] Start: 04-13-2023 End: 04-13-[address] KALPANA TAPIA . Facility:[facility] Start: 04-06-2023 End: 04-07-[address] GEO SIERRA . Facility:[facility] Start: 01-10-2023 ambulatory NONE LISTED REQUEST Facility:[facility] Start: 10-26-2022 ambulatory NONE LISTED REQUEST Facility:[facility] Start: 10-13-2022 End: [...] visit by physician Richar Obrien APRN - CNM [facility] Start: 05-25-2021 End: 05-25-2021 [facility]ulatory [facility] [place] [facility] Start: 05-24-2021 End: 05-25-2021 Subsequent hospital visit by physician Rema Tapia IRON SETTER - CNM Work Phone: [facility] Labor and Delivery Start: 05-18-2021 End: 05-18-2021 [facility] Start: 05-18-2021 End: 05-18-2021 Subsequent hospital visit by physician Richar Obrien APRN - CNYinka Work Phone: [facility] Labor and Delivery Start: 04-14-2021 End: 04-14-2021 Emergency department patient visit [facility] Start: 04-14-2021 End: 04-14-2021 Emergency department patient visit [facility] Work Phone: [facility] ED Comment on above: Nausea and vomiting during (Primary Dx) Start: 03-23-2021 End: 03-24-2021 Emergency department patient visit LIDIA [facility] Start: 03-23-2021 End: 03-23-2021 Emergency department patient visit Lidia Núñez MD Work Phone: [facility] ED Comment on above: Leg swelling (Primar y Dx) Start: 03-10-2021 End: 03-10-2021 Emergency department patient visit ALIDA ALCALA [facility] Start: 02-28-2021 End: 02-28-2021 Emergency department patient visit MECHE BLOOD [facility] Start: 02-28-2021 End: 02-28-2021 Emergency department patient visit Meche Caitie Work Phone: [facility] ED Comment on above: Abdominal pain, unsp ecified abdominal location (Primary Dx); Urinary tract infection without hematuria, site unspecified; Intrauterine Procedures Date Procedure Procedure Detail Performing Clinician Start: 05-18-2021 Urinalysis microscop ic only Richar Obrien APRN - CNM Work Phone: Start: 05-18-2021 Urnls dip stick/tabl et rgnt auto w/o microscopy Richar Obrien APRN - CNM Work Phone: Start: 04-14-2021 Assay of lipase Cisco Lopez Work Phone: Start: 04-14-2021 BASIC METABOLIC PANE L W/ REFLEX TO MG FOR LOW K Cisco Lopez DO Work Phone: Start: 04-14-2021 Hepatic function panel Cisco [employer] DO Work Phone: Start: 04-14-2021 Urinalysis microscop ic only Cisco [employer] DO Work Phone: Start: 04-14-2021 Urnls dip stick/tabl et rgnt auto w/o microscopy [employer] DO Work Phone: Start: 03-23-2021 Fibrin dgradj [...] Work Phone: Start: 02-17-2021 ABO, EXTERNAL RESULT Alexys kaplan Provider Start: 02-17-2021 HEPATITIS B, EXTERNA L RESULT Historical Provider Start: 02-17-2021 HEPATITIS C ANTIBODY , EXTERNAL RESULT Historical Provider Start: 02-17-2021 HIV, EXTERNAL RESULT Alexys kaplan Provider Start: 02-17-2021 RH FACTOR, EXTERNAL RESULT Historical Provider Start: 02-17-2021 RPR, EXTERNAL RESULT Hi rosaura Provider Start: 02-17-2021 RUBELLA TITER, EXTER NAL RESULT Historical Provider Plan of Treatment Date Care Activity Detail Author Start: 05-16-2023 DTaP/Tdap/Td vaccine (2 - Td or Tdap) DTaP/Tdap/Td vaccine (2 - Td or Tdap) [facility] Phone: Start: 05-16-2023 DTaP/Tdap/Td vaccine (2 - Td) DTaP/Tdap/Td vaccine (2 - Td) [facility] Phone: Start: 07-27-[address] [facility] Phone: Start: 03-23-2021 End: 03-23-2022 VL DUP LOWER EXTREMITY VENOUS BILATERAL VL DUP LOWER EXTREMITY VENOUS BILATERAL Imaging Routine Leg swelling Expected: 03/23/2021, Expires: 03/23/[address] [facility] Phone: Comment on above: Expected: 03/23/2021 , Expires: 03/23/2022 Start: 2015 Screening for malign ant neoplasm of cervix Cervical cancer screen [facility] Phone: Start: 2010 COVID-19 Vaccine (1) COVID-19 Vaccin e (1) [facility] Phone: Start: 2009 HIV screening [facility] screen [facility] Work Phone: Start: 2006 COVID-19 Vaccine (1) COVID-19 Vaccin e (1) [facility] Phone: Start: 1995 Varicella vaccine (1 of 2 - 2-dose childhood series) Varicella vaccine (1 of 2 - 2-dose childhood series) [facility] Phone: Start: 1994 Hepatitis C screening Hepatitis C sc reen [facility] Phone: End: 05-18-2021 Bacteria identified in Urine by Culture Urine culture Microbiology Routine One Time for 1 Occurrences starting 05/18/2021 until 05/18/2021 [facility] Phone: Comment on above: One Time for 1 Occur rences starting 05/18/2021 until 05/18/2021 End: 02-28-2021 CBC Auto Differential CBC Auto Differential Lab STAT One Time for 1 Occurrences starting 02/28/2021 until 02/28/2021 [facility] Phone: Comment on above: One Time for 1 Occur rences starting 02/28/2021 until 02/28/2021 End: 02-28-2021 Comprehensive Metabolic Panel w/ Reflex to MG Comprehensive Metabolic Panel w/ Reflex to MG Lab STAT One Time for 1 Occurrences starting 02/28/2021 until 02/28/2021 [facility] Phone: Comment on above: One Time for 1 Occur rences starting 02/28/2021 until 02/28/2021 End: 02-28-2021 Culture, Urine Culture, Urine Microbiology Routine One Time for 1 Occurrences starting 02/28/2021 until 02/28/2021 [facility] Phone: Comment on above: One Time for 1 Occur rences starting 02/28/2021 until 02/28/2021 Nonrebreather mask oxygen [facility] Phone: Comment on above: As directed - RT (WV N) until discontinued starting 05/18/2021 As directed - RT ([place] N) until discontinued starting 05/24/2021 As directed - RT ([place] N) until discontinued starting 06/16/2021 End: 05-18-2021 SVE SVE Point of Care Testing Routine One Time for 1 Occurrences starting 05/18/2021 until 05/18/2021 [facility] Phone: Comment on above: One Time for 1 Occur rences starting 05/18/2021 until 05/18/2021 End: 05-24-2021 SVE SVE Point of Care Testing Routine One Time for 1 Occurrences starting 05/24/2021 until 05/24/2021 [facility] Phone: Comment on above: One Time for 1 Occur rences starting 05/24/2021 until 05/24/2021 End: 06-16-2021 SVE SVE Point of Care Testing Routine One Time for 1 Occurrences starting 06/16/2021 until 06/16/2021 [facility] Phone: Comment on above: One Time for 1 Occur rences starting 06/16/2021 until 06/16/2021 Payers Date Payer Category Payer Unknown [id number] 2.16.8 [id number] 1994 Unknown [id number] 2.16.8 40.1.071691.3.579.2.173 1994 Unknown [id number] 2.16.8 40.1.222070.3.579.2.173 1994 Unknown [id number] 2.16.8 40.1.264786.3.579.2.173 1994 Unknown [id number] 2.16.8 40.1.580643.3.579.2.173 1994 Unknown [id number] 2.16.8 40.1.955614.3.579.2.173 1994 Unknown [id number] 2.16.8 40.1.581158.3.579.2.173 1994 Unknown [id number] 2.16.84 0.1.116309.3.579.2.593 1994 Unknown [id number] 2.16.84 0.1.110356.3.579.2.593 1994 Unknown [id number] 2.16.84 0.1.962247.3.579.2.593 1994 Unknown [id number] 2.16.84 0.1.574527.3.579.2.593 1994 Unknown [id number] 2.16.84 0.1.060756.3.579.2.593 1994 Unknown [id number] 2.16.84 0.1.777002.3.579.2.593 1994 Unknown [id number] 2.16.84 0.1.590589.3.579.2.593 1994 Unknown [id number] 2.16.84 0.1.664742.3.579.2.593 1994 Unknown [id number] 2.16.84 0.1.644206.3.579.2.593 1994 Unknown [id number] 2.16.84 0.1.053280.3.579.2.593 1994 Unknown [id number] 2.16.84 0.1.375028.3.579.2.593 1994 Unknown [id number] 2.16.84 0.1.693497.3.579.2.593 1994 Unknown [id number] 2.16.84 0.1.962783.3.579.2.125 1994 Unknown [id number] 2.16.84 0.1.681621.3.579.2.1259 1994 Unknown [id number] 2.16.84 0.1.675312.3.579.2.125 1994 Unknown [id number] 2.16.84 0.1.579560.3.579.2.1259 1994 Unknown [id number] 2.16.84 0.1.971531.3.579.2.1258 1994 Unknown [id number] 2.16.84 0.1.675537.3.579.2.1259 1994 Unknown [id number] 2.16.84 0.1.808632.3.579.2.125 1994 Unknown [id number] 2.16.84 0.1.439174.3.579.2.1259 1994 Unknown [id number] 2.16.840 .1.576443.3.579.2.1258 1994 Unknown [id number] 2.16.840 .1.250516.3.579.2.125 1994 Unknown [id number] 2.16.840 .1.151388.3.579.2.125 1994 Unknown [id number] 2.16.840 .1.537621.3.579.2.1259 1994 Unknown [id number] 2.16.840. 1.243646.3.579.2.1259 1959 Self-pay [id number] 1959 Unknown [id number] 1. 2.840.251600.1.13.239.2.7.3.082704.315 Social History Date Type Detail Facility Start: 02-28-2021 End: 06-16-2021 Tobacco smoking status DCIS Never smoker [facility] Phone: Start: 02-28-2021 End: 06-16-2021 Tobacco use and exposure Never used [facility] Phone: Start: 1995 Sex Assigned At Not on file [facility] Phone: Exposure to SARS-CoV -2 (event) Not sure [facility] Phone: Start: 12-07-2020 Cardio control Phone: Start: 05-18-2021 End: 06-16-2021 Alcohol intake Ex-drinker (finding) [facility] Phone: History of Present illness Narrative 06-17-2021 Allyson Joel RN - 06/17/2021 12:10 AM Allyson Torres RN - 06/17/2021 12:02 AM Allyson Torres RN - 06/16/2021 8:50 PM Allyson Torres RN - 06/16/2021 8:45 PM EDT Note [...] and TOCO. Orders received to discharge home. [facility] notified via telephone requesting pt's blood [...] placed on monitor. documented in this encounter [facility] Phone: History of Present illness Narrative 05-18-2021 Erinn Simms RN - 05/18/2021 10:06 AM EDT Note Date & Type Note Facility 05-18-2021 History of Present illness Narrative Obstetrical outpatient discharge instructions explained to pt, pt v.u. 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 documented in this encounter [facility] Phone: Hospital Discharge instructions 03-23-2021 Instructions Note [...] ANY other concerns. documented in this encounter [facility] Phone: Evaluation note Note Date & Type Note Facility Evaluation note Diagnosis Leg swelling- Primary Swelling of limb documented in this encounter [facility] Phone: Evaluation note Note Date & Type Note Facility Evaluation note Diagnosis Nausea and vomiting during - Primary documented in this encounter [facility] Phone: Evaluation note Note Date & Type Note Facility Evaluation note Diagnosis Decreased movement affecting management of mother, antepartum documented in this encounter [facility] Phone: Hospital Discharge instructions Attachments Note Date & Type Note Facility Hospital Discharge instructions The following attachments cannot be sent through Care Everywhere.: Hyperemesis Gravidarum (Bangladeshi)Nausea and Vomiting (Bangladeshi)documented in this encounter [facility] Phone: Hospital Discharge instructions Instructions Note Date & Type Note Facility Hospital Discharge instructions Erinn Simms RN - 05/18/[address] Liss Tapia [facility] Dr. Alondra Obrien CN [address] [facility] [address] [facility] [address] Alondra Carrillo [facility] [address] [facility] [address] [phone] Therese Villatoro, MSN, IRON SETTER, CNM [id number] Edgardo Power S [facility] [address] Richar Marleyjorgito CNM [address] [address] [place] [address] Gabbie Patrickr CN [address] [place] [address] [place] [address] [phone] ACTIVITY LIMITATIONS: ( x )Up and about [...] OF EMERGENCY CONTACT LABOR AND DELIVERY . WIRE ROLLER PRESCRIPTIONS AT [facility] TODAY AND TAKE PRESCRIBED. KEFLEX TO BE TAKEN AT 2:30PM FOR FIRST DOSE. documented in this encounter [facility] Phone: Hospital Discharge instructions Instructions Note Date & Type Note Facility Hospital Discharge instructions Fiona Gilliland, RN - 05/25/[address] Liss Tapia [facility] Dr. Alondra Obrien [facility] [address] [facility] [address] [address] Alondra Carrillo [facility] [address] [facility] [address] [phone] Therese Villatoro, MSN, IRON SETTER, CNM [facility] [address] [facility] [address] [address] [facility] [address] Richar Ayakajorgito CNM [address] [place], [place] [id number] Gabbie Junior CN [address] [place], [place] [address] [phone] ACTIVITY LIMITATIONS: ( x )Up and about [...] AND DELIVERY . documented in this encounter [facility] Phone: Hospital Discharge instructions Instructions Note Date & Type Note Facility Hospital Discharge instructions Allyson Joel RN - 06/17/[address] Liss Tapia [facility] Dr. Alondra Obrien [facility] [address] [facility] [address] [facility] [address] Alondra Carrillo [facility] [address] [facility] [address] [phone] ACTIVITY LIMITATIONS: ( x )Up and about [...] AND DELIVERY . documented in this encounter [facility] Phone: Discharge Instructions * Instructions* Meche Blood MD - 02/28/2021 Take Keflex as directed until complete. Make sure to stay well-hydrated. Follow- up with your OB. Seek medical attention immediately for any worsening pain or any other acute concerns. * Attachments The following attachments cannot be sent through Care Everywhere. * Abdominal Pain (Bangladeshi) * : PROM: General Info (Bangladeshi) * UTI (Urinary Tract Infection): Female (Bangladeshi) documented in this encounter Assessments Diagnosis Abdominal pain, unspecified abdominal location- Primary Urinary tract infection without hematuria, site unspecified Intrauterine Reason for Referral Status Reason Specialty Diagnoses / Procedures Referre d By Contact Referred To Contact Open Radiology Diagnoses Leg swelling Procedures VL DUP LOWER EXTREMITY VENOUS BILATERAL Lidia Núñez MD [address] [place] [address] Advance Directives No Advanced Directives Records FoundLatest [...] Margarita 04/14/21 at 0200, For 1 dose 021 (New Bag - Prov ider: Lorena Vega RN)317 (Stopped - Provider: Mikaela Stern RN) famotidine (PEPCID) injection 20 mg (COMPLETED) 20 mg, Intravenous, ONCE, On Margarita 04/14/21 at 0200, For 1 dose, Administer over 2 minutes. 218 (Given - Provid er: Lorena Vega RN) [...] mg from all sources in 24 hours. 33 (Given - Provid er: Martha Tatum RN) [...] pital DATE CREATED AUTHOR AUTHOR'S ORGANIZ ATION 08/16/2024 [facility] FOR RECORDS PERTAINING TO PATIENTS [...] BE BASED ON THE PRIMARY CLINICAL RECORDS. [employer] [facility]. provides no warranty or guarantee of the accuracy or completeness of information in this document.
[2024-08-21 00:07] LABS: AFP Value 37.4 ng/mL (.); Gest. Age on Collection Date 17.6 weeks (.); Gestat. Age Based On Ultrasound (.); Insulin Dep Diabetes No (.); OSBR Risk 1 IN 10000 (.); Results Report (.)
== END 2024-08-18 17:02 | disposition home or self-care (01) ==
LOC: LAB 17:03
PROVIDERS: Visit Provider Obstetrics & Gynecology
DX: Z34.92 Encounter for supervision of normal pregnancy, unspecified, second trimester (principal); Z36.1 Encounter for antenatal screening for raised alphafetoprotein level
CPT/HCPCS: 36415; 82105

== ENCOUNTER 2024-09-04 11:06 | Outpatient (OUT) | payer OTHER, SELFPAY ==
--- NOTE | 2024-09-04 11:09 | US_ITS ---
[address] [address] Patient Name: PAU GRIDER MRN: [id number] date: 1995 Sex: F Assigned Patient Location: [facility] Current Patient Location: Accession/Order Number: [id number] Exam Date: 09/04/2024 11:09 Report Date: 09/05/2024 04:08 At the request of: GEO SIERRA Procedure: US OB anatomy EXAMINATION: US OB anatomy, US OB cervical length HISTORY: ANATOMY COMPARISON: Ultrasound OB transvaginal 06/19/2024 TECHNIQUE: Transabdominal sonographic examination was performed for obstetrical and evaluation. FINDINGS: Number: 1 Heart Rate: 140 bpm Amniotic Fluid Volume: Subjectively normal Placental Location: POSTERIOR with lower margin 3.2 cm from os. Cervix Length: 4.43 cm ; closed. ANATOMY: Normal Structures -cerebellum, choroid plexus, cisterna magna, lateral cerebral ventricles, orbits, midline falx, hard palate, four-chamber heart, RVOT, LVOT, stomach, kidneys, bladder, umbilical cord insertion into abdomen, three-vessel cord, cervical spine, thoracic spine, lumbar spine, sacral spine, right upper extremity, left upper extremity, right lower extremity, left lower extremity. SUBOPTIMALLY SEEN: None ABNORMALITIES: None BIOMETRY: BPD: 4.38 cm; 19 weeks 2 days; 20.10 % HC: 16.98 cm; 19 weeks 4 days; 24.10 % AC: 14.48 cm; 19 weeks 6 days; 37.50 % FL: 3.30 cm; 20 weeks 2 days; 54 % EFW:299.33 g; 43.50 % FL/AC: 22.79 FL/BPD: 75.34 HC/AC: 1.17 GESTATIONAL AGE: Age by EDC: 20 weeks 0 days Age by current US: 19 weeks 5 days BELL by current US: 2025-01-24 BELL by EDC: 2025-01-22 US/US OB anatomy IMPRESSION: 1. Single live intrauterine with growth detailed above. Electronically authenticated by: ROXY TOBIAS Date: 09/05/2024 04:08
--- NOTE | 2024-09-04 11:09 | US_ITS ---
[address] [address] Patient Name: PAU GRIDER MRN: [id number] date: 1995 Sex: F Assigned Patient Location: [facility] Current Patient Location: Accession/Order Number: [id number] Exam Date: 09/04/2024 11:09 Report Date: 09/05/2024 04:08 At the request of: GEO SIERRA Procedure: US OB cervical length EXAMINATION: US OB anatomy, US OB cervical length HISTORY: ANATOMY COMPARISON: Ultrasound OB transvaginal 06/19/2024 TECHNIQUE: Transabdominal sonographic examination was performed for obstetrical and evaluation. FINDINGS: Number: 1 Heart Rate: 140 bpm Amniotic Fluid Volume: Subjectively normal Placental Location: POSTERIOR with lower margin 3.2 cm from os. Cervix Length: 4.43 cm ; closed. ANATOMY: Normal Structures -cerebellum, choroid plexus, cisterna magna, lateral cerebral ventricles, orbits, midline falx, hard palate, four-chamber heart, RVOT, LVOT, stomach, kidneys, bladder, umbilical cord insertion into abdomen, three-vessel cord, cervical spine, thoracic spine, lumbar spine, sacral spine, right upper extremity, left upper extremity, right lower extremity, left lower extremity. SUBOPTIMALLY SEEN: None ABNORMALITIES: None BIOMETRY: BPD: 4.38 cm; 19 weeks 2 days; 20.10 % HC: 16.98 cm; 19 weeks 4 days; 24.10 % AC: 14.48 cm; 19 weeks 6 days; 37.50 % FL: 3.30 cm; 20 weeks 2 days; 54 % EFW:299.33 g; 43.50 % FL/AC: 22.79 FL/BPD: 75.34 HC/AC: 1.17 GESTATIONAL AGE: Age by EDC: 20 weeks 0 days Age by current US: 19 weeks 5 days BELL by current US: 2025-01-24 BELL by EDC: 2025-01-22 US/US OB cervical length IMPRESSION: 1. Single live intrauterine with growth detailed above. Electronically authenticated by: ROXY TOBIAS Date: 09/05/2024 04:08
--- OUTSIDE RECORDS SUMMARY | 2024-09-04 11:20 | XMS_ITS | CCD ---
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 Name Role Phone Unavailable Primary Care Provider [...] Unavailable RIGO ., DR GUARDADO Attending Unavailable GREENVALE, DR AMNA Ames Consulting Unavailable RIGO ., [...] ACUNA Consulting Unavailable LEIF, MARYCRUZ Consulting Unavailable JAENETH, ANANT Consulting Unavailable BLAINE, DR AMNA Ames Consulting Unavailable MARIO ., ARSH Admitting Unavailable MARIO ., ARSH Attending Unavailable [facility], DR ALLRED Primary Care Unavailable MARIO ., [...] Latex (5 sources) Latex Substance Allergy 1 [facility] (1 source) Latex Propensity to adverse reactions to drug 1 [facility] Work Phone: (1 source) Latex Drug allergy (disorder) [facility] Repository Medications Current Medications Medication Drug Class(es) [...] 04-18-2023 HBsAg Screen Negative Normal Negative [facility] Comment on above: Performed By: #### H BSANS #### [facility] Laboratory [address] [place] [address] Dr. Josh Jacinto HEPATITIS C VIRUS AB W/ REFL EX QUANTon 04-18-2023 HCV AB Non-Reactive Normal Non Reactive [facility] Comment on above: Performed By: #### H CVPCRR #### [facility] Laboratory [address] [place] [address] Dr. Josh Jacinto HIV 1 AND 2 WITH REFLEXon HIV Screen 4th Generation wRfx Non-Reactive Normal Non Reactive [facility] Comment on above: Result Comment: HIV Negative HIV-1/HIV-2 antibodies and HIV-1 p24 antigen were NOT detected. There is no laboratory evidence of HIV infection. Performed By: #### B OX #### [facility] [address] [place] [address] Dr. Josh Jacinto RPR QUANTon 04-18-2023 Rapid Plasma Reagin, Quant Non-Reactive Normal NonRea<1:1 [facility] Comment on above: Result Comment: [place] philip Note: This test does not meet current guidelines for screening and diagnosis of syphilis. This test is intended for following treatment response in patients being treated for syphilis infection. To screen for syphilis infection, a reflex cascade that includes both RPR and a treponema-specific assay should be utilized, such as Treponema pallidum (Syphilis) Screening [place] (980853) or Rapid Plasma Reagin (RPR) Test With Reflex to Quantitative RPR and Confirmatory Treponema pallidum Antibodies (644946). Performed By: #### B OX #### [facility] [address] [place] [address] Dr. Josh Jacinto RUBELLA AB IGGon 04-18-2023 Rubella Antibodies, IgG 1.84 index Normal Immune >0.99 [facility] Comment on above: Result Comment: Non- immune <0.90 Equivocal 0.90 - 0.99 Immune >0.99 Performed By: #### H CGSUB #### [facility] [address] [place] [address] Dr. Josh Jacinto BOX TEST SENT OUTon 04-16-20 23 SENT TO REF LAB 04/17/[address] [facility] Comment on above: Performed By: #### B OX #### [facility] [address] [place] [address] Dr. Josh Jacinto CBC AUTO DIFFon 04-16-2023 BASO # 0.0 103/ul Normal 0.0-0.1 [facility] Comment on above: Performed By: #### B OX #### [facility] [address] [place] [address] Dr. Josh Jacinto Basophils/100 WBC (Bld) 0.2 % Normal 0.2-2.0 [facility] Comment on above: Performed By: #### B OX #### [facility] [address] [place] [address] Dr. Josh Jacinto EO # 0.1 103/ul Normal 0.0-0.7 [facility] Comment on above: Performed By: #### B OX #### [facility] [address] [place] [address] Dr. Josh Jacinto Eosinophils/100 WBC (Bld) 0.6 % Critically low 0.9-7.0 [facility] Comment on above: Performed By: #### B OX #### [facility] [address] [place] [address] Dr. Josh Jacinto Erythrocyte distribution width (RBC) [Ratio] 13.4 % Normal 11.0-15.0 [facility] Comment on above: Performed By: #### B OX #### [facility] [address] [place] [address] Dr. Josh Jacinto Hematocrit (Bld) [Volume fraction] 36.9 % Normal 36.0-48.0 [facility] Comment on above: Performed By: #### B OX #### [facility] [address] [place] [address] Dr. Josh Jacinto Hemoglobin (Bld) [Mass/Vol] 12.4 g/dL Normal 12.0-16.0 [facility] Comment on above: Performed By: #### B OX #### [facility] [address] [place] [address] Dr. Josh Jacinto IG # 0.02 10e3/ul Normal 0.00-0.03 [facility] Comment on above: Performed By: #### B OX #### [facility] [address] [place] [address] Dr. Josh Jacinto IG % 0.2 % Normal 0.0-0.5 [facility] Comment on above: Performed By: #### B OX #### [facility] [address] [place] [address] Dr. Josh Jacinto LYMPH # 2.3 103/ul Normal 1.2-3.8 [facility] Comment on above: Performed By: #### B OX #### [facility] [address] [place] [address] Dr. Josh Jacinto Lymphocytes/100 WBC (Bld) 19.4 % Critically low 20.5-60.0 [facility] Comment on above: Performed By: #### B OX #### [facility] [address] [place] [address] Dr. Josh Jacinto MANUAL DIFF REQ NO Normal [facility] Comment on above: Performed By: #### B OX #### [facility] [address] [place] [address] Dr. Josh Jacinto MCH (RBC) [Entitic mass] 29.6 pg Normal 26.7-34.0 [facility] Comment on above: Performed By: #### B OX #### [facility] [address] [place] [address] Dr. Josh Jacinto MCHC (RBC) [Mass/Vol] 33.6 g/dL Normal 29.9-35.2 [facility] Comment on above: Performed By: #### B OX #### [facility] [address] [place] [address] Dr. Josh Jacinto MCV (RBC) [Entitic vol] 88.1 fL Normal 81.0-99.0 [facility] Comment on above: Performed By: #### B OX #### [facility] [address] [place] [address] Dr. Josh Jacinto MONO # 0.6 103/ul Normal 0.3-0.8 [facility] Comment on above: Performed By: #### B OX #### [facility] [address] [place] [address] Dr. Josh Jacinto Monocytes/100 WBC (Bld) 5.1 % Normal 1.7-12.0 [facility] Comment on above: Performed By: #### B OX #### [facility] [address] [address] [address] Josh Jacinto NEUT # 9.0 103/ul Critically high 1.4-6.[address] [facility] Comment on above: Performed By: #### B OX #### [facility] [address] [address] [address] Josh Jacinto Neutrophils/100 WBC (Bld) 74.5 % Normal 43.0-75.0 [facility] Comment on above: Performed By: #### B OX #### [facility] [address] [address] [address] Josh Jacinto Platelet mean volume (Bld) [Entitic vol] 10.1 fL Normal 9.5-13.5 [facility] Comment on above: Performed By: #### B OX #### [facility] [address] [place] [address] Dr. Josh Jacinto PLT 337 103/ul Normal 150-450 [facility] Comment on above: Performed By: #### B OX #### [facility] [address] [place] [address] Dr. Josh Jacinto RBC 4.19 106/ul Critically low 4.20-5.40 [facility] Comment on above: Performed By: #### B OX #### [facility] [address] [place] [address] Dr. Josh Jacinto WBC 12.0 103/ul Critically high 4.0-11.0 [facility] Comment on above: Performed By: #### B OX #### [facility] [address] [place] [address] Dr. Josh Jacinto CULTURE URINEon 04-16-2023 CULTURE URINE Culture Observations: NO GROWTH. Normal [facility] Comment on above: Performed By: #### H CGSUB #### [facility] [address] [place] [address] Dr. Josh Jacinto GLYCOHEMOGLOBIN A1Con 2022 ADA RECOMMENDATION SEE BELOW Normal [facility] Comment on above: Result Comment: ADA RECOMMENDED LIMIT 4.0 - 6.0 ADA THERAPEUTIC TARGET < 7.0 ACTION SUGGESTED > 7.0 Performed By: #### H CVPCRR #### [facility] [address] [address] [address] Josh Jacinto Glucose [Mass/Vol] 91 mg/dL Normal [facility] Comment on above: Performed By: #### H CVPCRR #### [facility] [address] [address] [address] Josh Jacinto HbA1c (Bld) [Mass fraction] 4.8 % Normal 4.5-6.2 [facility] Comment on above: Performed By: #### H CVPCRR #### [facility] [address] [address] [address] Josh Jacinto TSHon 04-16-2023 TSH 1.700 uIU/mL Normal 0.358-3.740 [facility] Comment on above: Performed By: #### H CGSUB #### [facility] [address] [place] [address] Dr. Josh Jacinto TYPE AND SCREENon 04-16-2023 TYPE AND SCREEN Negative Normal [facility] Comment on above: Performed By: #### H CGSUB #### [facility] [address] [place] [address] Dr. Josh Jacinto US PREG TVon 04-13-2023 US PREG TV EXAMINATION: US PREG TV HISTORY: Pain TECHNIQUE: Grayscale and color Doppler sonographic evaluation of the uterus and adnexa was performed utilizing a transvaginal approach only. COMPARISON: 04/06/2023 FINDINGS: Uterus: Size: Normal Orientation:Antevert ed Intrauterine Gestational Sac: Present Yolk Sac: Present Pole: Present. [place]-rump length measures 2.1 cm, 8 weeks 5 [...] ANANT ERIC Date: 2023-04-13 20:47 Normal [facility] US PREG TVon 04-06-2023 US PREG TV [...] ROXY TOBIAS Date: 2023-04-06 10:05 Normal [facility] CBC AUTO DIFFon 10-13-2022 BASO # 0.0 103/ul Normal 0.0-0.1 [facility] Comment on above: Performed By: #### H CVPCRR #### [facility] [address] [place] [address] Dr. Josh Jacinto Basophils/100 WBC (Bld) 0.4 % Normal 0.2-2.0 [facility] Comment on above: Performed By: #### H CVPCRR #### [facility] [address] [place] [address] Dr. Josh Jacinto EO # 0.1 103/ul Normal 0.0-0.7 [facility] Comment on above: Performed By: #### H CVPCRR #### [facility] [address] [place] [address] Dr. Josh Jacinto Eosinophils/100 WBC (Bld) 1.2 % Normal 0.9-7.0 [facility] Comment on above: Performed By: #### H CVPCRR #### [facility] [address] [place] [address] Dr. Josh Jacinto Erythrocyte distribution width (RBC) [Ratio] 12.7 % Normal 11.0-15.0 [facility] Comment on above: Performed By: #### H CVPCRR #### [facility] [address] [place] [address] Dr. Josh Jacinto Hematocrit (Bld) [Volume fraction] 39.3 % Normal 36.0-48.0 [facility] Comment on above: Performed By: #### H CVPCRR #### [facility] [address] [place] [address] Dr. Josh Jacinto Hemoglobin (Bld) [Mass/Vol] 13.1 g/dL Normal 12.0-16.0 [facility] Comment on above: Performed By: #### H CVPCRR #### [facility] [address] [place] [address] Dr. Josh Jacinto IG # 0.02 10e3/ul Normal 0.00-0.03 [facility] Comment on above: Performed By: #### H CVPCRR #### [facility] [address] [place] [address] Dr. Josh Jacinto IG % 0.3 % Normal 0.0-0.5 [facility] Comment on above: Performed By: #### H CVPCRR #### [facility] [address] [place] [address] Dr. Josh Jacinto LYMPH # 2.1 103/ul Normal 1.2-3.8 [facility] Comment on above: Performed By: #### H CVPCRR #### [facility] [address] [place] [address] Dr. Josh Jacinto Lymphocytes/100 WBC (Bld) 28.8 % Normal 20.5-60.0 [facility] Comment on above: Performed By: #### H CVPCRR #### [facility] [address] [place] [address] Dr. Josh Jacinto MANUAL DIFF REQ NO Normal [facility] Comment on above: Performed By: #### H CVPCRR #### [facility] [address] [place] [address] Dr. Josh Jacinto MCH (RBC) [Entitic mass] 28.9 pg Normal 26.7-34.0 [facility] Comment on above: Performed By: #### H CVPCRR #### [facility] [address] [place] [address] Dr. Josh Jacinto MCHC (RBC) [Mass/Vol] 33.3 g/dL Normal 29.9-35.2 [facility] Comment on above: Performed By: #### H CVPCRR #### [facility] [address] [place] [address] Dr. Josh Jacinto MCV (RBC) [Entitic vol] 86.6 fL Normal 81.0-99.0 [facility] Comment on above: Performed By: #### H CVPCRR #### [facility] [address] [place] [address] Dr. Josh Jacinto MONO # 0.6 103/ul Normal 0.3-0.8 [facility] Comment on above: Performed By: #### H CVPCRR #### [facility] [address] [place] [address] Dr. Josh Jacinto Monocytes/100 WBC (Bld) 8.7 % Normal 1.7-12.0 [facility] Comment on above: Performed By: #### H CVPCRR #### [facility] [address] [place] [address] Dr. Josh Jacinto NEUT # 4.4 103/ul Normal 1.4-6.5 [facility] Comment on above: Performed By: #### H CVPCRR #### [facility] [address] [place] [address] Dr. Josh Jacinto Neutrophils/100 WBC (Bld) 60.6 % Normal 43.0-75.0 [facility] Comment on above: Performed By: #### H CVPCRR #### [facility] [address] [place] [address] Dr. Josh Jacinto Platelet mean volume (Bld) [Entitic vol] 10.0 fL Normal 9.5-13.5 [facility] Comment on above: Performed By: #### H CVPCRR #### [facility] [address] [place] [address] Dr. Josh Jacinto PLT 327 103/ul Normal 150-450 [facility] Comment on above: Performed By: #### H CVPCRR #### [facility] [address] [place] [address] Dr. Josh Jacinto RBC 4.54 106/ul Normal 4.20-5.40 [facility] Comment on above: Performed By: #### H CVPCRR #### [facility] [address] [place] [address] Dr. Josh Jacinto WBC 7.2 103/ul Normal 4.0-11.0 [facility] Comment on above: Performed By: #### H CVPCRR #### [facility] [address] [place] [address] Dr. Josh Jacinto ER URINE PROFILEon 2 Bilirubin Ql (U) Negative Normal NEGATIVE [facility] Comment on above: Performed By: #### H CVPCRR #### [facility] [address] [place] [address] Dr. Josh Jacinto Clarity (U) CLEAR Normal CLEAR [facility] Comment on above: Performed By: #### H CVPCRR #### [facility] [address] [place] [address] Dr. Josh Jacinto Color (U) LT. YELLOW Normal YELLOW [facility] Comment on above: Performed By: #### H CVPCRR #### [facility] [address] [place] [address] Dr. Josh Jacinto ERUJAMAL A micrscopic examination will be performed if indicated. Normal [facility] Comment on above: Performed By: #### H CVPCRR #### [facility] [address] [place] [address] Dr. Josh Jacinto Glucose Ql (U) Negative Normal NEGATIVE [facility] Comment on above: Performed By: #### H CVPCRR #### [facility] [address] [place] [address] Dr. Josh Jacinto Hemoglobin Ql (U) LARGE Abnormal NEGATIVE [facility] Comment on above: Performed By: #### H CVPCRR #### [facility] [address] [address] [address] Josh Jacinto Ketones Ql (U) Negative Normal NEGATIVE [facility] Comment on above: Performed By: #### H CVPCRR #### [facility] [address] [place] [address] Dr. Josh Jacitno LEUKOCYTES Negative Normal NEGATIVE [facility] Comment on above: Performed By: #### H CVPCRR #### [facility] [address] [address] [address] Josh Jacinto Nitrite Ql (U) Negative Normal NEGATIVE [facility] Comment on above: Performed By: #### H CVPCRR #### [facility] [address] [place] [address] Dr. Josh Jacinto pH (U) 6.5 [pH] Normal 5-9 [facility] Comment on above: Performed By: #### H CVPCRR #### [facility] [address] [place] [address] Dr. Josh Jacnito SPEC GRAVITY 1.010 Normal 1.005-<=1.025 [facility] Comment on above: Performed By: #### H CVPCRR #### [facility] [address] [place] [address] Dr. Josh Jacinto UA PROTEIN Negative Normal NEGATIVE/ TRACE [facility] Comment on above: Performed By: #### H CVPCRR #### [facility] [address] [address] [address] Josh Jacinto UR MICRO IND INDICATED Normal [facility] Comment on above: Performed By: #### H CVPCRR #### [facility] [address] [place] [address] Dr. Josh Jacinto Urobilinogen Qn (U) 0.2 {Pio'U}/dL Normal 0.2 - 1. 0 [facility] Comment on above: Performed By: #### H CVPCRR #### [facility] [address] [place] [address] Dr. Josh Jacinto PREG QUANT HCGon 10-13-2022 HCG QUANT 4 mIU/mL Normal [facility] Comment on above: Performed By: #### P REGQNT #### [facility] [address] [place] [address] Dr. Josh Jacinto HCG RANGE SEE BELOW Normal [facility] Comment on above: Result Comment: 5-50 0.2-1 WEEK 50-500 1-2 WEEKS 100-5,000 2-3 WEEKS 500-10,000 3-4 WEEKS 1,000-50,000 4-5 WEEKS 10,000-100,000 5-6 WEEKS 15,000-200,000 6-8 WEEKS 10,000-100,000 2-3 MONTHS Performed By: #### P REGQNT #### [facility] [address] [place] [address] Dr. Josh Jacinto PROTIMEon 10-13-2022 INR Coag (PPP) [Relative time] 1.29 {INR} Normal [facility] Comment on above: Performed By: #### H CVPCRR #### [facility] [address] [place] [address] Dr. Josh Jacinto INR GUIDELINES SEE BELOW Normal [facility] Comment on above: Result Comment: PASCUAL RED INR: 2.0 - 3.0 CONDITIONS NOT LISTED BELOW 2.5 - 3.5 FOR PROSTHETIC HEART VALVE REPLACEMENT 2.5 - 3.5 RECURRENT THROMBOSIS Performed By: #### H CVPCRR #### [facility] [address] [place] [address] Dr. Josh Jacinto PT Coag (PPP) [Time] 13.7 s Critically high 9.0-11.6 [facility] Comment on above: Performed By: #### H CVPCRR #### [facility] [address] [place] [address] Dr. Josh Jacinto PTTon 10-13-2022 aPTT Coag (Bld) [Time] 25.1 s Normal 22.3-36.2 Th [facility] Comment on above: Performed By: #### H CVPCRR #### [facility] [address] [place] [address] Dr. oJsh Jacinto URINE MICROSCOPIC ONLYon BACTERIA NONE SEEN Normal NONE SEEN [facility] Comment on above: Performed By: #### H CVPCRR #### [facility] [address] [place] [address] Dr. Josh Jacinto Bacteria identified Cx Nom (U) NOT INDICATED Normal [facility] Comment on above: Performed By: #### H CVPCRR #### [facility] [address] [place] [address] Dr. Josh Jacinto CAST NONE SEEN Normal NONE SEEN [facility] Comment on above: Performed By: #### H CVPCRR #### [facility] [address] [place] [address] Dr. Josh Jacinto Crystals LM Nom (Urine sed) NONE SEEN Normal NONE SEEN [facility] Comment on above: Performed By: #### H CVPCRR #### [facility] [address] [place] [address] Dr. Josh Jacinto Epithelial cells LM Ql (Urine sed) MODERATE Abnormal NONE SEEN /RARE [facility] Comment on above: Performed By: #### H CVPCRR #### [facility] [address] [place] [address] Dr. Josh Jacinto MUCOUS NONE SEEN Normal NONE SEEN [facility] Comment on above: Performed By: #### H CVPCRR #### [facility] [address] [place] [address] Dr. Josh Jacinto RBC 10-20 Abnormal 0-2 [facility] Comment on above: Performed By: #### H CVPCRR #### [facility] [address] [place] [address] Dr. Josh Jacinto WBC 0-2 Abnormal NONE SEEN [facility] Comment on above: Performed By: #### H CVPCRR #### [facility] [address] [place] [address] Dr. Josh Jacinto US PREG TVon 10-13-2022 [...] AMNA VALLADARES Date: 2022-10-13 08:40 Normal [facility] CBC AUTO DIFFon 10-09-2022 BASO # 0.0 103/ul Normal 0.0-0.1 [facility] Comment on above: Performed By: #### H CVPCRR #### [facility] [address] [place] [address] Dr. Josh Jacinto Basophils/100 WBC (Bld) 0.3 % Normal 0.2-2.0 [facility] [facility] Comment on above: Performed By: #### H CVPCRR #### [facility] [address] [place] [address] Dr. Josh Jacinto EO # 0.0 103/ul Normal 0.0-0.7 [facility] Comment on above: Performed By: #### H CVPCRR #### [facility] [address] [place] [address] Dr. Josh Jacinto Eosinophils/100 WBC (Bld) 0.4 % Critically low 0.9-7.0 [facility] Comment on above: Performed By: #### H CVPCRR #### [facility] [address] [place] [address] Dr. Josh Jacinto Erythrocyte distribution width (RBC) [Ratio] 12.7 % Normal 11.0-15.0 [facility] Comment on above: Performed By: #### H CVPCRR #### [facility] [address] [place] [address] Dr. Josh Jacinto Hematocrit (Bld) [Volume fraction] 39.0 % Normal 36.0-48.0 [facility] Comment on above: Performed By: #### H CVPCRR #### [facility] [address] [place] [address] Dr. Josh Jacinto Hemoglobin (Bld) [Mass/Vol] 13.1 g/dL Normal 12.0-16.0 [facility] Comment on above: Performed By: #### H CVPCRR #### [facility] [address] [place] [address] Dr. Josh Jacinto IG # 0.03 10e3/ul Normal 0.00-0.03 [facility] Comment on above: Performed By: #### H CVPCRR #### [facility] [address] [place] [address] Dr. Josh Jacinto IG % 0.3 % Normal 0.0-0.5 [facility] Comment on above: Performed By: #### H CVPCRR #### [facility] [address] [place] [address] Dr. Josh Jacinto LYMPH # 2.0 103/ul Normal 1.2-3.8 [facility] Comment on above: Performed By: #### H CVPCRR #### [facility] [address] [place] [address] Dr. Josh Jacinto Lymphocytes/100 WBC (Bld) 18.4 % Critically low 20.5-60.0 [facility] Comment on above: Performed By: #### H CVPCRR #### [facility] [address] [place] [address] Dr. Josh Jacinto MANUAL DIFF REQ NO Normal [facility] Comment on above: Performed By: #### H CVPCRR #### [facility] [address] [place] [address] Dr. Josh Jacinto MCH (RBC) [Entitic mass] 29.0 pg Normal 26.7-34.0 [facility] Comment on above: Performed By: #### H CVPCRR #### [facility] [address] [place] [address] Dr. Josh Jacinto MCHC (RBC) [Mass/Vol] 33.6 g/dL Normal 29.9-35.2 [facility] Comment on above: Performed By: #### H CVPCRR #### [facility] [address] [place] [address] Dr. Josh Jacinto MCV (RBC) [Entitic vol] 86.5 fL Normal 81.0-99.0 [facility] Comment on above: Performed By: #### H CVPCRR #### [facility] [address] [place] [address] Dr. Josh Jacinto MONO # 0.8 103/ul Normal 0.3-0.8 [facility] Comment on above: Performed By: #### H CVPCRR #### [facility] [address] [place] [address] Dr. Josh Jacinto Monocytes/100 WBC (Bld) 7.1 % Normal 1.7-12.0 [facility] Comment on above: Performed By: #### H CVPCRR #### [facility] [address] [place] [address] Dr. Josh Jacinto NEUT # 8.1 103/ul Critically high 1.4-6.5 [facility] Comment on above: Performed By: #### H CVPCRR #### [facility] [address] [place] [address] Dr. Josh Jacinto Neutrophils/100 WBC (Bld) 73.5 % Normal 43.0-75.0 [facility] Comment on above: Performed By: #### H CVPCRR #### [facility] [address] [place] [address] Dr. Josh Jacinto Platelet mean volume (Bld) [Entitic vol] 10.4 fL Normal 9.5-13.5 [facility] Comment on above: Performed By: #### H CVPCRR #### [facility] [address] [place] [address] Dr. Josh Jacinto PLT 329 103/ul Normal 150-450 [facility] Comment on above: Performed By: #### H CVPCRR #### [facility] [address] [place] [address] Dr. Josh Jacinto RBC 4.51 106/ul Normal 4.20-5.40 [facility] Comment on above: Performed By: #### H CVPCRR #### [facility] [address] [place] [address] Dr. Josh Jacinto WBC 11.0 103/ul Normal 4.0-11.0 [facility] Comment on above: Performed By: #### H CVPCRR #### [facility] [address] [place] [address] Dr. Josh Jacinto CULTURE URINEon 10-09-2022 CULTURE URINE Culture Observations: NO GROWTH. Normal [facility] Comment on above: Performed By: #### H CGSUB #### [facility] [address] [place] [address] Dr. Josh Jacinto ER URINE PROFILEon Bilirubin Ql (U) Negative Normal NEGATIVE [facility] Comment on above: Performed By: #### H CVPCRR #### [facility] [address] [place] [address] Dr. Josh Jacinto Clarity (U) CLEAR Normal CLEAR [facility] Comment on above: Performed By: #### H CVPCRR #### [facility] [address] [place] [address] Dr. Josh Jacinto Color (U) LT. YELLOW Normal YELLOW [facility] Comment on above: Performed By: #### H CVPCRR #### [facility] [address] [place] [address] Dr. Josh GALLEGOS A micrscopic examination will be performed if indicated. Normal [facility] Comment on above: Performed By: #### H CVPCRR #### [facility] [address] [place] [address] Dr. Josh Jacinto Glucose Ql (U) Negative Normal NEGATIVE [facility] Comment on above: Performed By: #### H CVPCRR #### [facility] [address] [place] [address] Dr. Josh Jacinto Hemoglobin Ql (U) TRACE-LYSED Abnormal NEGATIVE [facility] Comment on above: Performed By: #### H CVPCRR #### [facility] [address] [place] [address] Dr. Josh Jacinto Ketones Ql (U) Negative Normal NEGATIVE [facility] Comment on above: Performed By: #### H CVPCRR #### [facility] [address] [place] [address] Dr. Josh Jacinto LEUKOCYTES SMALL Abnormal NEGATIVE [facility] Comment on above: Performed By: #### H CVPCRR #### [facility] [address] [place] [address] Dr. Josh Jacinto Nitrite Ql (U) Negative Normal NEGATIVE [facility] Comment on above: Performed By: #### H CVPCRR #### [facility] [address] [place] [address] Dr. Josh Jacinto pH (U) 6.0 [pH] Normal 5-9 [facility] Comment on above: Performed By: #### H CVPCRR #### [facility] [address] [place] [address] Dr. Josh Jacinto SPEC GRAVITY 1.015 Normal 1.005-<=1.025 [facility] Comment on above: Performed By: #### H CVPCRR #### [facility] [address] [place] [address] Dr. Josh Jacinto UA PROTEIN Negative Normal NEGATIVE/ TRACE [facility] Comment on above: Performed By: #### H CVPCRR #### [facility] [address] [place] [address] Dr. Josh Jacinto UR MICRO IND INDICATED Normal [facility] Comment on above: Performed By: #### H CVPCRR #### [facility] [address] [place] [address] Dr. Josh Jacinto Urobilinogen Qn (U) 0.2 {Pio'U}/dL Normal 0.2 - 1. 0 [facility] Comment on above: Performed By: #### H CVPCRR #### [facility] [address] [place] [address] Dr. Josh Jacinto LIPASEon 10-09-2022 Lipase [Catalytic activity/Vol] 128.0 U/L Normal 73.0-393.0 [facility] Comment on above: Performed By: #### C MP, LIPA, HSTROPN #### [facility] [address] [place] [address] Dr. Josh Jacinto MONOon 10-09-2022 Monocytes (Bld) [#/Vol] Negative Normal NEGATIVE T [facility] Comment on above: Performed By: #### B OX #### [facility] [address] [address] [address] Josh Jacinto PREG HCG QUALon 10-09-2022 , QUAL Positive Abnormal NEGATIVE [facility] Comment on above: Performed By: #### B OX #### [facility] [address] [address] [address] Josh Jacinto PROF 14(COMP METB)on 022 Albumin [Mass/Vol] 3.6 g/dL Normal 3.4-5.0 [facility] Comment on above: Performed By: #### C MP, LIPA, HSTROPN #### [facility] [address] [place] [address] Dr. Josh Jacinto Albumin/Globulin [Mass ratio] 0.9 {ratio} Normal [facility] Comment on above: Performed By: #### C MP, LIPA, HSTROPN #### [facility] [address] [address] [address] Josh Jacinto ALP [Catalytic activity/Vol] 94 U/L Normal 46-116 [facility] Comment on above: Performed By: #### C MP, LIPA, HSTROPN #### [facility] [address] [address] [address] Josh Jacinto ALT [Catalytic activity/Vol] 22 U/L Normal 14-59 [facility] Comment on above: Performed By: #### C MP, LIPA, HSTROPN #### [facility] [address] [address] [address] Josh Jacinto Anion gap [Moles/Vol] 10.9 mmol/L Normal [facility] Comment on above: Performed By: #### C MP, LIPA, HSTROPN #### [facility] [address] [address] [address] Josh Jacinto AST [Catalytic activity/Vol] 13 U/L Critically low 15-37 [facility] Comment on above: Performed By: #### C MP, LIPA, HSTROPN #### [facility] [address] [address] [address] Josh Jacinto Bilirubin [Mass/Vol] 0.1 mg/dL Critically low 0.2-1.0 [facility] Comment on above: Performed By: #### C MP, LIPA, HSTROPN #### [facility] [address] [address] [address] Josh Jacinto Calcium [Mass/Vol] 9.0 mg/dL Normal 8.5-10.1 [facility] Comment on above: Performed By: #### C MP, LIPA, HSTROPN #### [facility] [address] [place] [address] Dr. Josh Jacinto Chloride [Moles/Vol] 105 mmol/L Normal 98-107 [facility] Comment on above: Performed By: #### C MP, LIPA, HSTROPN #### [facility] [address] [place] [address] Dr. Josh Jacinto CO2 [Moles/Vol] 23.5 mmol/L Normal 21.0-32.[address] [facility] Comment on above: Performed By: #### C MP, LIPA, HSTROPN #### [facility] [address] [place] [address] Dr. Josh Jacinto Creatinine [Mass/Vol] 0.68 mg/dL Normal 0.55-1.02 [facility] Comment on above: Performed By: #### C MP, LIPA, HSTROPN #### [facility] [address] [place] [address] Dr. Josh Jacinto EGFR-AF DOMINICAN >60 Normal >=[address] [facility] Comment on above: Performed By: #### C MP, LIPA, HSTROPN #### [facility] [address] [place] [address] Dr. Josh Jacinto EGFR-NON AF DOMINICAN >60 Normal >=60 [facility] Comment on above: Performed By: #### C MP, LIPA, HSTROPN #### [facility] [address] [address] [address] Josh Jacinto Globulin (S) [Mass/Vol] 4.1 g/dL Normal T [facility] Comment on above: Performed By: #### C MP, LIPA, HSTROPN #### [facility] [address] [address] [address] Josh Jacinto Glucose [Mass/Vol] 98 mg/dL Normal 74-106 [facility] Comment on above: Performed By: #### C MP, LIPA, HSTROPN #### [facility] [address] [place] [address] Dr. Josh Jacinto Potassium [Moles/Vol] 3.4 mmol/L Critically low 3.5-5.1 [facility] Comment on above: Performed By: #### C MP, LIPA, HSTROPN #### [facility] [address] [place] [address] Dr. Josh Jacinto Protein [Mass/Vol] 7.7 g/dL Normal 6.4-8.2 [facility] Comment on above: Performed By: #### C MP, LIPA, HSTROPN #### [facility] [address] [place] [address] Dr. Josh Jacinto Sodium [Moles/Vol] 136 mmol/L Normal 136-145 [facility] Comment on above: Performed By: #### C MP, LIPA, HSTROPN #### [facility] [address] [place] [address] Dr. Josh Jacinto Urea nitrogen [Mass/Vol] 14.0 mg/dL Normal 7.0-18.0 [facility] Comment on above: Performed By: #### C MP, LIPA, HSTROPN #### [facility] [address] [place] [address] Dr. Josh Jacinto Urea nitrogen/Creatinine [Mass ratio] 20.6 mg/mg Normal [facility] Comment on above: Performed By: #### C MP, LIPA, HSTROPN #### [facility] [address] [place] [address] Dr. Josh Jacinto TROPONIN, HIGH SENSITIVITYon 10-09-2022 HSTROP <4.0 Normal 4.0-51.3 [facility] Comment on above: Result Comment: CUT- OFF POINTS HAVE BEEN ESTABLISHED BASED ON THE FOURTH UNIVERSAL DEFINITIONS OF MYOCARDIAL INFARCTION. THE UPPER REFERENCE LIMIT (URL) OF TROPONIN, DEFINED THE 99TH PERCENTILE OF cTnI DISTRIBUTION IN A REFERENCE POPULATION, HAS BEEN CONFIRMED THE DECISION THRESHOLD FOR DE DIAGNOSIS. Performed By: #### C MP, LIPA, HSTROPN #### [facility] [address] [place] [address] Dr. Josh Jacinto URINE MICROSCOPIC ONLYon BACTERIA TRACE Abnormal NONE SEEN The [facility] Comment on above: Performed By: #### H CVPCRR #### [facility] [address] [place] [address] Dr. Josh Jacinto Bacteria identified Cx Nom (U) INDICATED Normal [facility] Comment on above: Performed By: #### H CVPCRR #### [facility] [address] [place] [address] Dr. Josh Jacinto CAST NONE SEEN Normal NONE SEEN [facility] Comment on above: Performed By: #### H CVPCRR #### [facility] [address] [place] [address] Dr. Josh Jacinto Crystals LM Nom (Urine sed) NONE SEEN Normal NONE SEEN The [facility] Comment on above: Performed By: #### H CVPCRR #### [facility] [address] [place] [address] Dr. oJsh Jacinto Epithelial cells LM Ql (Urine sed) MODERATE Abnormal NONE SEEN /RARE [facility] Comment on above: Performed By: #### H CVPCRR #### [facility] [address] [place] [address] Dr. Josh Jacinto MUCOUS NONE SEEN Normal NONE SEEN [facility] Comment on above: Performed By: #### H CVPCRR #### [facility] [address] [place] [address] Dr. Josh Jacinto RBC NONE SEEN Abnormal 0-2 [facility] Comment on above: Performed By: #### H CVPCRR #### [facility] [address] [address] [address] Josh Jacinto WBC 2-5 Abnormal NONE SEEN [facility] Comment on above: Performed By: #### H CVPCRR #### [facility] [address] [place] [address] Dr. Josh Jacinto ER URINE PROFILEon 2 Bilirubin Ql (U) Negative Normal NEGATIVE [facility] Comment on above: Performed By: #### P REGU, ERUR #### [facility] [address] [place] [address] Dr. Josh Jacinto Clarity (U) CLEAR Normal CLEAR [facility] Comment on above: Performed By: #### P REGU, ERUR #### [facility] [address] [place] [address] Dr. Josh Jacinto Color (U) LT. YELLOW Normal YELLOW [facility] Comment on above: Performed By: #### P REGU, ERUR #### [facility] [address] [place] [address] Dr. Josh Jacinto ERUAHD A micrscopic examination will be performed if indicated. Normal [facility] Comment on above: Performed By: #### P REGU, ERUR #### [facility] [address] [place] [address] Dr. Josh Jacinto Glucose Ql (U) Negative Normal NEGATIVE [facility] Comment on above: Performed By: #### P REGU, ERUR #### [facility] [address] [address] [address] Josh Jacinto Hemoglobin Ql (U) Negative Normal NEGATIVE [facility] Comment on above: Performed By: #### P REGU, ERUR #### [facility] [address] [address] [address] Josh Jacinto Ketones Ql (U) Negative Normal NEGATIVE [facility] Comment on above: Performed By: #### P REGU, ERUR #### [facility] [address] [place] [address] Dr. Josh Jacinto LEUKOCYTES Negative Normal NEGATIVE [facility] Comment on above: Performed By: #### P REGU, ERUR #### [facility] [address] [address] [address] Josh Jacinto Nitrite Ql (U) Negative Normal NEGATIVE [facility] Comment on above: Performed By: #### P REGU, ERUR #### [facility] [address] [address] [address] Josh Jacinto pH (U) 6.0 [pH] Normal 5-9 [facility] Comment on above: Performed By: #### P REGU, ERUR #### [facility] [address] [address] [address] Josh Jacinto SPEC GRAVITY 1.010 Normal 1.005-<=1.[address] [facility] Comment on above: Performed By: #### P REGU, ERUR #### [facility] [address] [place] [address] Dr. Josh Jacinto UA PROTEIN Negative Normal NEGATIVE/ TRACE [facility] Comment on above: Performed By: #### P REGU, ERUR #### [facility] [address] [address] [address] Josh Jacinto UR MICRO IND NOT INDICATED Normal [facility] Comment on above: Performed By: #### P REGU, ERUR #### [facility] [address] [place] [address] Dr. Josh Jacinto Urobilinogen Qn (U) 0.2 {Pio'U}/dL Normal 0.2 - 1. 0 [facility] Comment on above: Performed By: #### P REGU, ERUR #### [facility] [address] [place] [address] Dr. Josh Jacinto URon 09-14-2022 , QUAL Negative Normal NEGATIVE [facility] Comment on above: Performed By: #### P REGU, ERUR #### [facility] [address] [place] [address] Dr. Josh Jacinto XR ABD FLAT UP_PA [...] by: JANICE KAUFMAN Date: 2022-09-14 02:39 Normal [facility] PAP ACOG PANEL 2: 20 to 28on 07-10-2022 . . Normal [facility] Comment on above: Performed By: #### H CGSUB #### [facility] [address] [address] [address] Josh Jacinto Age Gdln ACOG Testing 20- Normal [facility] Comment on above: Performed By: #### H CGSUB #### [facility] [address] [address] [address] Josh Jacinto DIAGNOSIS: Comment Normal [facility] Comment on above: Result Comment: NEGA TIVE FOR INTRAEPITHELIAL LESION OR MALIGNANCY. Performed By: #### H CGSUB #### [facility] [address] [address] [address] Josh Jacinto Methodology: Comment Normal [facility] Comment on above: Result Comment: This liquid based ThinPrep(R) pap test was screened with the use of an image guided system. Performed By: #### H CGSUB #### [facility] [address] [address] [address] Josh Jacinto Note: Comment Normal [facility] Comment on above: Result Comment: The Pap smear is a screening test designed to aid in the detection of premalignant and malignant conditions of the uterine cervix. It is not a diagnostic procedure and should not be used as the sole means of detecting cervical cancer. Both false-positive and false-negative reports do occur. . Performed By: #### H CGSUB #### [facility] [address] [address] [address] Josh Jacinto Performed by: Comment Normal [facility] Comment on above: Result Comment: Aurora Salazar, Sales Department Manager (ASCP) Performed By: #### H CGSUB #### [facility] [address] [place] [address] Dr. Josh Jacinto Reflex Criteria: Comment Normal [facility] Comment on above: Result Comment: The HPV DNA reflex criteria were not met with this specimen result therefore, no HPV testing was performed. . Performed By: #### H CGSUB #### [facility] [address] [place] [address] Dr. Josh Jacinto Specimen adequacy: Comment Normal [facility] Comment on above: Result Comment: Sati sfactory for evaluation. Endocervical and/or squamous metaplastic cells (endocervical component) are present. Performed By: #### H CGSUB #### [facility] [address] [place] [address] Dr. Josh Jacinto HCG-BETA SUBUNIT QUANTon hCG,Beta Subunit,Qnt,Serum <1 Normal [facility] Comment on above: Result Comment: Fema le (Non-) 0 - 5 (Postmenopausal) 0 - 8 . Female () Weeks of Gestation 3 6 - 71 4 10 - 750 5 217 - 7138 6 158 - 61446 7 [phone] -[id number] 8 [phone] -[id number] 9 [phone] -[phone] 10 58634 -[phone] 12 13375 -[phone] 14 24429 - 40893 15 58200 - 37772 16 6285 - [id number] 17 2018 - [id number] 18 1564 - 92570 Liana ECLIA methodology Performed By: #### H CGSUB #### [facility] Laboratory [address] [place] [address] Dr. Josh Jacinto US PELVIS AND TRANSVAGon [...] by: AMNA VALLADARES Date: 2022-07-05 16:12 Normal [facility] Cult,Urineon 05-19-2021 Cult,Urine Specimen Description .CLEAN CATCH URINE Special Requests NOT REPORTED Culture NO SIGNIFICANT GROWTH Report Status FINAL 05/19/2021 Normal [facility] Comment on above: Performed By: #### S [facility] #### [facility] [employer] [address] [place] [address] Cloud Subject Matter Expert: Collin De La Fuente MD Microscopic UrinalysisOrdere d By: Richar Obrien on 05-18-2021 - [employer] Work Phone: Amorphous, UA NOT REPORTED None [facility] Work Phone: Bacteria, UA 2+ Abnormal None [facility] [employer] Phone: Casts UA NOT REPORTED /LPF [facility] [employer] Work Phone: Crystals, UA NOT REPORTED None /HPF [facility] Work Phone: Epithelial Cells UA 5 TO 10 [facility] [employer] Work Phone: Interpretation and review of laboratory results Abnormal [facility] [employer] Work Phone: Mucus, UA 1+ Abnormal None [facility] Phone: Other Observations UA NOT REPORTED NOT REQ. M [facility] [employer] Work Phone: RBC, UA None [facility] [employer] Work Phone: Renal Epithelial, UA NOT REPORTED 0 /HPF [facility] Work Phone: Trichomonas, UA NOT REPORTED None [facility] Work Phone: WBC, UA 10 TO 20 [facility] Work Phone: Yeast, UA NOT REPORTED None [facility] Work Phone: [facility] Work Phone: UrinalysisOrdered By: Richar Obrien on 05-18-2021 Bilirubin Urine Negative NEGATIVE [facility] Work Phone: Color, UA YELLOW YELLOW [facility] Work Phone: Glucose, Ur Negative NEGATIVE [facility] Work Phone: Interpretation and review of laboratory results Abnormal [facility] Work Phone: Ketones Ql (U) Negative NEGATIVE [facility] Work Phone: Leukocyte esterase Test strip Ql (U) SMALL Abnormal NEGATIVE [facility] Work Phone: Nitrite, Urine Negative NEGATIVE [facility] Work Phone: pH, UA 6.0 [facility] Work Phone: Protein, UA Negative NEGATIVE [facility] Work Phone: Specific [place], UA >1.030 High [facility] Work Phone: Turbidity UA SLIGHTLY CLOUDY Abnormal CLEAR [facility] Work Phone: Urinalysis Comments NOT REPORTED [facility] [employer] Work Phone: Urine Hgb Negative NEGATIVE [facility] Work Phone: Urobilinogen, Urine Normal Normal [facility] Work Phone: [facility] Work Phone: Urinalysis, Routineon 2020 Bilirubin, SemiQt,Ur Negative Normal NEG [facility] Comment on above: Performed By: #### S WC #### [employer] [address] [place] [address] Cloud Subject Matter Expert: Collin De La Fuente MD Blood, Urine Negative Normal NEG [facility] Comment on above: Performed By: #### S W[facility] #### [address] [address] Cloud Subject Matter Expert: Collin De La Fuente MD Clarity (U) SLIGHTLY CLOUDY Abnormal CLEAR [facility] Comment on above: Performed By: #### S WCGP #### [address] [address] Cloud Subject Matter Expert: Collin De La Fuente MD Color (U) YELLOW Normal YEL [facility] Comment on above: Performed By: #### S WCGP #### [address] [address] Cloud Subject Matter Expert: Collin De La Fuente MD Glucose Ql (U) Negative Normal NEG [facility] Comment on above: Performed By: #### S WCGP #### [address] [address] Cloud Subject Matter Expert: Collin De La Fuente MD Ketones Ql (U) Negative Normal NEG [facility] Comment on above: Performed By: #### S WCGP #### [address] [address] Cloud Subject Matter Expert: Collin De La Fuente MD Leukocyte esterase Test strip Ql (U) SMALL Abnormal NEG [facility] Comment on above: Performed By: #### S WCGP #### [address] [address] Cloud Subject Matter Expert: Collin De La Fuente MD Nitrite,Ur Negative Normal [facility] Comment on above: Performed By: #### S WCGP #### [address] [address] Cloud Subject Matter Expert: Collin De La Fuente MD PH,Ur 6.0 Normal 5.0-9.0 [facility] Comment on above: Performed By: #### S WCGP #### [id number] [place] [address] Cloud Subject Matter Expert: Collin De La Fuente MD Protein Ql (U) Negative Normal NEG [facility] Comment on above: Performed By: #### S WCGP #### [address] [address] Cloud Subject Matter Expert: Collin De La Fuente MD Spec. [place],Ur >1.030 High 1.010-1.020 [facility] Comment on above: Performed By: #### S WCGP #### [address] [address] Cloud Subject Matter Expert: Collin De La Fuente MD Urobilinogen,Ur Normal Normal NORM [facility] Comment on above: Performed By: #### S WCGP #### [address] [address] Cloud Subject Matter Expert: Collin De La Fuente MD Comment NOT REPORTED Normal [facility] Comment on above: Performed By: #### S WCGP #### [address] [address] Cloud Subject Matter Expert: Collin De La Fuente MD Urinalysis,Microon 1 ----- Normal [facility] Comment on above: Performed By: #### S WCGP #### [address] [address] Cloud Subject Matter Expert: Collin De La Fuente MD Bacteria 2+ Abnormal NONE [facility] Comment on above: Performed By: #### S WCGP #### [address] [address] Cloud Subject Matter Expert: Collin De La Fuente MD Epithelial cells LM Ql (Urine sed) 5 TO 10 Normal 0-25 [facility] Comment on above: Performed By: #### S WCGP #### [address] [address] Cloud Subject Matter Expert: Collin De La Fuente MD Mucus Strands 1+ Abnormal NONE [facility] Comment on above: Performed By: #### S WCGP #### [address] [address] Cloud Subject Matter Expert: Collin De La Fuente MD Urine RBC's None Normal 0-2 [facility] Comment on above: Performed By: #### S WCGP #### [address] [address] Cloud Subject Matter Expert: Collin De La Fuente MD Urine WBC's 10 TO 20 Normal 0-5 [facility] Comment on above: Performed By: #### S WCGP #### [address] [address] Cloud Subject Matter Expert: Collin De La Fuente MD Amorphous sediment LM Ql (Urine sed) NOT REPORTED Normal NONE [facility] Comment on above: Performed By: #### S WCGP #### [address] [address] Cloud Subject Matter Expert: Collin De La Fuente MD Casts NOT REPORTED Normal [facility] Comment on above: Performed By: #### S WCGP #### [address] [address] Cloud Subject Matter Expert: Collin De La Fuente MD Crystals LM Nom (Urine sed) NOT REPORTED Normal [facility] Comment on above: Performed By: #### S WCGP #### [address] [address] Cloud Subject Matter Expert: Collin De La Fuente MD Epithelial, Renal NOT REPORTED Normal 0 [facility] Comment on above: Performed By: #### S WCGP #### [address] [address] Cloud Subject Matter Expert: Collin De La Fuente MD Other Observations NOT REPORTED Normal NREQ [facility] Comment on above: Performed By: #### S WCGP #### [address] [id number] Cloud Subject Matter Expert: Collin De La Fuente MD Trichomonas NOT REPORTED Normal NONE [facility] Comment on above: Performed By: #### S WCGP #### [facility] [address] [place], [place] [id number] Cloud Subject Matter Expert: Collin De La Fuente MD Yeast NOT REPORTED Normal NONE [facility] Comment on above: Performed By: #### S WCGP #### [facility] [address] [place], [place] [id number] Cloud Subject Matter Expert: Collin De La Fuente MD Basic Metab w/rfx MGon 04-14 (cont.) Normal [facility] Comment on above: Result Comment: Aver age GFR for 20-29 years old: 116 mL/min/1.73sq m Chronic Kidney Disease: <60 mL/min/1.73sq m Kidney failure: <15 mL/min/1.73sq m eGFR calculated using average adult body mass. Additional eGFR calculator available at: http://www.[employer]/multiple_crcl_2012.htm Performed By: #### B MPX, LIP, LIVP, CDP #### [address] [place] [address] Cloud Subject Matter Expert: Amna Clements MD Anion gap [Moles/Vol] 12 mmol/L Normal 9-17 [facility] Comment on above: Performed By: #### B MPX, LIP, LIVP, CDP #### [address] [place] [address] Cloud Subject Matter Expert: Amna Clements MD BUN/CRE Ratio 19 Normal -20 [facility] Comment on above: Performed By: #### B MPX, LIP, LIVP, CDP #### [address] [place] [address] Cloud Subject Matter Expert: Amna Clements MD Calcium [Mass/Vol] 8.8 mg/dL Normal 8.6-10.4 [facility] Comment on above: Performed By: #### B MPX, LIP, LIVP, CDP #### [facility] [address] [place] [address] Cloud Subject Matter Expert: Amna Clements MD Chloride [Moles/Vol] 101 mmol/L Normal 98-107 [facility] Comment on above: Performed By: #### B MPX, LIP, LIVP, CDP #### [facility] [address] [place], [place] [address] Cloud Subject Matter Expert: Amna Clements MD CO2 [Moles/Vol] 23 mmol/L Normal 20-31 [facility] Comment on above: Performed By: #### B MPX, LIP, LIVP, CDP #### [address] [place], [place] [phone] Cloud Subject Matter Expert: Amna Clements MD Creatinine [Mass/Vol] 0.47 mg/dL Low 0.50-0.90 [facility] Comment on above: Performed By: #### B MPX, LIP, LIVP, CDP #### [address] [place], [place] [id number] Cloud Subject Matter Expert: Amna Clements MD GFR, Amer >60 Normal >60 [facility] Comment on above: Performed By: #### B MPX, LIP, LIVP, CDP #### [facility] [address] [place] [address] Dr[place], [place] [id number] Cloud Subject Matter Expert: Amna Clements MD GFR,non Amer >60 Normal >60 [facility] Comment on above: Performed By: #### B MPX, LIP, LIVP, CDP #### [facility] [address] [place] [address] Cloud Subject Matter Expert: Amna Clements MD Glucose [Mass/Vol] 106 mg/dL High 70-99 [facility] Comment on above: Performed By: #### B MPX, LIP, LIVP, CDP #### [facility] [address] [place] [address] Cloud Subject Matter Expert: Amna Clements MD Potassium [Moles/Vol] 3.7 mmol/L Normal 3.7-5.3 [facility] Comment on above: Performed By: #### B MPX, LIP, LIVP, CDP #### [address] [place] [address] Cloud Subject Matter Expert: Amna Clements MD Sodium [Moles/Vol] 136 mmol/L Normal 135-144 [facility] Comment on above: Performed By: #### B MPX, LIP, LIVP, CDP #### [address] [place] [address] Cloud Subject Matter Expert: Amna Clements MD Staging: Normal [facility] Comment on above: Result Comment: Stag e 1: Some kidney damage normal GFR Stage 2: Mild kidney damage GFR 60-89 Stage 3: Moderate kidney damage GFR 30-59 Stage 4: Severe kidney damage GFR 15-29 Stage 5: Severe kidney damage GFR <15 ESRD - chronic treatment by dialysis or transplant Performed By: #### B MPX, LIP, LIVP, CDP #### [address] [place] [address] Cloud Subject Matter Expert: Amna Clements MD Urea nitrogen [Mass/Vol] 9 mg/dL Normal 6-20 [facility] Comment on above: Performed By: #### B MPX, LIP, LIVP, CDP #### [address] [place] [address] Cloud Subject Matter Expert: Amna Clements MD Basic Metabolic Panel w/ Ref ladi to MGOrdered By: Cisco Lopez on 04-14-2021 Anion gap [Moles/Vol] 12 mmol/L 9 - 17 mmol/L [facility] Work Phone: Calcium [Mass/Vol] 8.8 mg/dL 8.6 - 10. 4 mg/dL [facility] Work Phone: Chloride [Moles/Vol] 101 mmol/L 98 - 10 7 mmol/L [facility] Work Phone: CO2 [Moles/Vol] 23 mmol/L 20 - 31 mmol/L [facility] Work Phone: Creatinine [Mass/Vol] 0.47 mg/dL Low 0.50 - 0.90 mg/dL [facility] Work Phone: GFR >60 >60 mL/min [facility] [employer] Work Phone: GFR Non- >60 >60 mL/min [facility] Work Phone: Glucose [Mass/Vol] 106 mg/dL High 70 - 99 mg/dL [facility] Work Phone: Interpretation and review of laboratory results Abnormal [facility] Work Phone: Potassium [Moles/Vol] 3.7 mmol/L 3.7 - 5.3 mmol/L [facility] Work Phone: Sodium [Moles/Vol] 136 mmol/L 135 - 144 mmol/L [facility] Work Phone: Urea nitrogen (BldV) [Mass/Vol] 9 mg/dL 6 - 20 mg/dL [facility] Work Phone: Urea nitrogen/Creatinine (Bld) [Mass ratio] 19 [facility] Work Phone: CBC Auto DifferentialOrdered By: Cisco Lopez on 04-14-2021 Absolute Eos # 0.00 [facility] Work Phone: Absolute Immature Granulocyte 0.00 [facility] Work Phone: Absolute Lymph # 2.00 [facility] Work Phone: Absolute [place] # 1.78 High [facility] [employer] [facility] Work Phone: Basophils (Bld) [#/Vol] 0.00 10*3/uL [facility] Work Phone: Basophils/100 WBC (Bld) 0 % 0 - 2 % M [employer] Phone: Differential Type NOT REPORTED [employer] Phone: Eosinophils/100 WBC (Bld) 0 % Low 1 - 4 % [employer] Phone: Hematocrit (Bld) [Volume fraction] 38.4 % 36.3 - 47.1 % [employer] Phone: Hemoglobin.gastrointesti nal spec 1 Ql (Stl) 12.5 g/dL 11.9 - 15.1 g/dL [employer] Phone: Immature granulocytes/100 WBC (Bld) 0 % 0 [employer] Phone: Interpretation and review of laboratory results Abnormal [employer] Phone: Lymphocytes/100 WBC (Bld) 9 % Low 24 - 43 % [employer] Phone: MCH (RBC) [Entitic mass] 29.6 pg 25. 2 - 33.5 pg [employer] Phone: MCHC (RBC) [Mass/Vol] 32.6 g/dL 28.4 - 34.8 g/dL [employer] Phone: MCV (RBC) [Entitic vol] 91.0 fL 82.6 - 102.9 fL [employer] Phone: Monocytes/100 WBC (Bld) 8 % 3 - 12 % M [employer] Work Phone: Morphology Hay (Bld) [Interp] Normal [employer] Phone: NRBC Automated 0.0 0.0 per 100 WBC [employer] Phone: Platelet distribution width (Bld) [Ratio] 13.4 % 11.8 - 14.4 % [employer] Phone: Platelet Estimate NOT REPORTED [employer] Phone: Platelet mean volume (Bld) [Entitic vol] 10.2 fL 8.1 - 13.5 fL [employer] Phone: Platelets (Bld) [#/Vol] 321 10*3/uL [employer] Phone: RBC (Bld) [#/Vol] 4.22 10*6/uL 3.95 - 5.1 1 m/uL [employer] Work Phone: RBC (Bld) [#/Vol] NOT REPORTED [employer] Phone: Segmented neutrophils/100 WBC (Bld) 83 % High 36 - 65 % [employer] Phone: Segs Absolute 18.42 [employer] Work Phone: WBC (Bld) [#/Vol] 22.2 10*3/uL High [employer] Phone: WBC (Bld) [#/Vol] NOT REPORTED [employer] Phone: [employer] Phone: CBC with Diffon 04-14-2021 Abs. Basophil 0.00 k/uL Normal 0.0-0.2 [facility] Comment on above: Performed By: #### S WCGP #### [employer] [facility] [place] [address] Cloud Subject Matter Expert: Collin De La Fuente MD Abs.Imm.Granulocyte 0.00 k/uL Normal 0.00-0.30 [facility] Comment on above: Performed By: #### S WCGP #### [employer] [address] [place] [address] Cloud Subject Matter Expert: Collin De La Fuente MD Abs.Neutrophil (Seg) 18.42 k/uL High 1.50-8.10 [facility] Comment on above: Performed By: #### S WCGP #### [employer] [address] [place] [address] Cloud Subject Matter Expert: Collin De La Fuente MD Basophils/100 WBC (Bld) 0 % Normal 0-2 [facility] Comment on above: Performed By: #### S WCGP #### [address] [address] Cloud Subject Matter Expert: Collin De La Fuente MD Eosinophils (Bld) [#/Vol] 0.00 10*3/uL Normal 0.00-0.44 [facility] Comment on above: Performed By: #### S WCGP #### [address] [address] Cloud Subject Matter Expert: Collin De La Fuente MD Eosinophils/100 WBC (Bld) 0 % Low 1-4 [facility] Comment on above: Performed By: #### S WCGP #### [place] [address] Cloud Subject Matter Expert: Collin De La Fuente MD Immature granulocytes/100 WBC (Bld) 0 % Normal 0 [facility] Comment on above: Performed By: #### S WCGP #### [address] [address] Cloud Subject Matter Expert: Collin De La Fuente MD Lymphocytes (Bld) [#/Vol] 2.00 10*3/uL Normal 1.10-3.70 [facility] Comment on above: Performed By: #### S WCGP #### [address] [address] Cloud Subject Matter Expert: Collin De La Fuente MD Lymphocytes/100 WBC (Bld) 9 % Low 24-43 [facility] Comment on above: Performed By: #### S WCGP #### [address] [address] Cloud Subject Matter Expert: Collin De La Fuente MD Monocytes (Bld) [#/Vol] 1.78 10*3/uL High 0.10-1.20 [facility] Comment on above: Performed By: #### S WCGP #### [address] [address] Cloud Subject Matter Expert: Collin De La Fuente MD Monocytes/100 WBC (Bld) 8 % Normal 3-12 M [facility] Comment on above: Performed By: #### S WCGP #### [address] [address] Cloud Subject Matter Expert: Collin De La Fuente MD Morphology Hay (Bld) [Interp] Normal Normal [facility] Comment on above: Performed By: #### S WCGP #### [address] [address] Cloud Subject Matter Expert: Collin De La Fuente MD Neutrophil (Seg) 83 % High 36-65 [facility] Comment on above: Performed By: #### S WCGP #### [address] [address] Cloud Subject Matter Expert: Collin De La Fuente MD Erythrocyte distribution width (RBC) [Ratio] 13.4 % Normal 11.8-14.4 [facility] Comment on above: Performed By: #### S WCGP #### [address] [address] Cloud Subject Matter Expert: Collin De La Fuente MD Hematocrit (Bld) [Volume fraction] 38.4 % Normal 36.3-47.1 [facility] Comment on above: Performed By: #### S WCGP #### [address] [address] Cloud Subject Matter Expert: Collin De La Fuente MD Hemoglobin (Bld) [Mass/Vol] 12.5 g/dL Normal 11.9-15.1 [facility] Comment on above: Performed By: #### S WCGP #### [address] [address] Cloud Subject Matter Expert: Collin De La Fuente MD MCH (RBC) [Entitic mass] 29.6 pg Normal 25.2-33.5 [facility] Comment on above: Performed By: #### S WCGP #### [address] [address] Cloud Subject Matter Expert: Collin De La Fuente MD MCHC (RBC) [Mass/Vol] 32.6 g/dL Normal 28.4-34.8 [facility] Comment on above: Performed By: #### S WCGP #### [address] [address] Cloud Subject Matter Expert: Collin De La Fuente MD MCV (RBC) [Entitic vol] 91.0 fL Normal 82.6-102.9 [facility] Comment on above: Performed By: #### S WCGP #### [address] [address] Cloud Subject Matter Expert: Collin De La Fuente MD NRBC Automated 0.0 per 100 WBC Normal 0.0 [facility] Comment on above: Performed By: #### S WCGP #### [address] [address] Cloud Subject Matter Expert: Collin De La Fuente MD Platelet mean volume (Bld) [Entitic vol] 10.2 fL Normal 8.1-13.5 [facility] Comment on above: Performed By: #### S WCGP #### [address] [address] Cloud Subject Matter Expert: Collin De La Fuente MD Platelets (Bld) [#/Vol] 321 10*3/uL Normal 138-453 [facility] Comment on above: Performed By: #### S WCGP #### [address] [address] Cloud Subject Matter Expert: Collin De La Fuente MD RBC (Bld) [#/Vol] 4.22 10*6/uL Normal 3.95-5.11 [facility] Comment on above: Performed By: #### S WCGP #### [address] [address] Cloud Subject Matter Expert: Collin De La Fuente MD WBC (Bld) [#/Vol] 22.2 10*3/uL High 3.5-11.3 [facility] Comment on above: Performed By: #### S WCGP #### [facility] [address] [place] [address] Cloud Subject Matter Expert: Collin De La Fuente MD Auto Diff Performed NOT REPORTED Normal [facility] Comment on above: Performed By: #### S WCGP #### [facility] [address] [place] [address] Cloud Subject Matter Expert: Collin De La Fuente MD Platelet Estimate NOT REPORTED Normal [facility] Comment on above: Performed By: #### S WCGP #### [facility] [employer] [address] [place] [address] Cloud Subject Matter Expert: Collin De La Fuente MD RBC morphology finding Nom (Bld) NOT REPORTED Normal [facility] Comment on above: Performed By: #### S WCGP #### [facility] [address] [place] [address] Cloud Subject Matter Expert: Collin De La Fuente MD WBC Morphology NOT REPORTED Normal [facility] Comment on above: Performed By: #### S WCGP #### [facility] [address] [place] [address] Cloud Subject Matter Expert: Collin De La Fuente MD Hepatic Function PanelOrdere d By: Cisco Lopez on 04-14-2021 Albumin [Mass/Vol] 3.7 g/dL 3.5 - 5.2 g/dL [facility] Phone: Albumin/Globulin [Mass ratio] 1.1 {ratio} [employer] Phone: ALP (Bld) [Catalytic activity/Vol] 68 U/L 35 - 104 U/L [facility] Phone: ALT [Catalytic activity/Vol] 36 U/L High 5 - 33 U/L [facility] Phone: AST [Catalytic activity/Vol] 37 U/L High <32 [employer] Phone: Bilirubin [Mass/Vol] mg/dL Low 0.3 - 1 .2 mg/dL [employer] Phone: Bilirubin, Indirect CANNOT BE CALCULATED 0.00 - 1.00 mg/dL [employer] Phone: Bilirubin.indirect [Mass/Vol] mg/dL <0.31 mg/dL [employer] Phone: Free PSA/Total PSA [Mass fraction] 7.0 g/dL 6.4 - 8.3 g/dL [employer] Phone: Globulin NOT REPORTED 1.5 - 3.8 g/dL [employer] Phone: Interpretation and review of laboratory results Abnormal [employer] Phone: [employer] Phone: Laboratory - Chemistry and C hemistry - challengeOrdered By: Cisco Lopez on 04-14-2021 GFR/1.73 sq M.predicted MDRD (S/P/Bld) [Vol rate/Area] [employer] Phone: Comment on above: Average GFR for 20-2 9 years old: 116 mL/min/1.73sq m Chronic Kidney Disease: <60 mL/min/1.73sq m Kidney failure: <15 mL/min/1.73sq m eGFR calculated using average adult body mass. Additional eGFR calculator available at: http://www.[employer]/multiple_crcl_2012.htm Stage 1: Some kidney damage normal GFR Stage 2: Mild kidney damage GFR 60-89 Stage 3: Moderate kidney damage GFR 30-59 Stage 4: Severe kidney damage GFR 15-29 Stage 5: Severe kidney damage GFR <15 ESRD - chronic treatment by dialysis or transplant Lipaseon 04-14-2021 Lipase [Catalytic activity/Vol] 40 U/L Normal 13-60 [facility] Comment on above: Performed By: #### B MPX, LIP, LIVP, CDP #### [facility] [address] [place], [place] [id number] Cloud Subject Matter Expert: Amna Clements MD LipaseOrdered By: Brandy on 04-14-2021 Lipase [Catalytic activity/Vol] 40 U/L 13 - 60 U/L [facility] Work Phone: Liver Profileon 04-14-2021 Bilirubin [Mass/Vol] mg/dL Low 0.3-1.2 [facility] Comment on above: Performed By: #### B MPX, LIP, LIVP, CDP #### [facility] [address] [place], [place] [id number] Cloud Subject Matter Expert: Amna Clements MD Bilirubin, Indirect CANNOT BE CALCULATED Normal 0.00-1 .00 [facility] Comment on above: Performed By: #### B MPX, LIP, LIVP, CDP #### [facility] [address] [place] [address] [place] [place], [place] [phone] Cloud Subject Matter Expert: Amna Clements MD Albumin [Mass/Vol] 3.7 g/dL Normal 3.5-5.2 [facility] Comment on above: Performed By: #### B MPX, LIP, LIVP, CDP #### [address] [place], [place] [id number] Cloud Subject Matter Expert: Amna Clements MD Albumin/Glob Ratio 1.1 Normal 1.0-2.5 [facility] Comment on above: Performed By: #### B MPX, LIP, LIVP, CDP #### [facility] [address] [place], [place] [id number] Cloud Subject Matter Expert: Amna Clements MD Alkaline Phos 68 U/L Normal 35-104 [facility] Comment on above: Performed By: #### B MPX, LIP, LIVP, CDP #### [facility] [address] [place] [address] Cloud Subject Matter Expert: Amna Clements MD ALT [Catalytic activity/Vol] 36 U/L High 5-33 [facility] Comment on above: Performed By: #### B MPX, LIP, LIVP, CDP #### [address] [place] [address] Cloud Subject Matter Expert: Amna Clements MD AST [Catalytic activity/Vol] 37 U/L High <32 [facility] Comment on above: Performed By: #### B MPX, LIP, LIVP, CDP #### [address] [place], [place] [address] Cloud Subject Matter Expert: Amna Clements MD Bilirubin.indirect [Mass/Vol] mg/dL Normal <0.31 [facility] Comment on above: Performed By: #### B MPX, LIP, LIVP, CDP #### [address] [place] [address] Cloud Subject Matter Expert: Amna Clements MD Protein [Mass/Vol] 7.0 g/dL Normal 6.4-8.3 [facility] Comment on above: Performed By: #### B MPX, LIP, LIVP, CDP #### [address] [place] [address] Cloud Subject Matter Expert: Amna Clements MD Globulin Fraction NOT REPORTED Normal 1.5-3.8 [facility] Comment on above: Performed By: #### B MPX, LIP, LIVP, CDP #### [address] [place], [place] [address]383 Cloud Subject Matter Expert: Amna Clements MD Microscopic UrinalysisOrdere d By: Cisco Lopez on 04-14-2021 - [facility] Work Phone: Amorphous, UA NOT REPORTED None [facility] Work Phone: Bacteria, UA TRACE Abnormal None [facility] Work Phone: Casts UA NOT REPORTED /LPF [facility] Work Phone: Crystals, UA NOT REPORTED None /HPF [facility] Work Phone: Epithelial Cells UA 10 TO 20 [facility] Work Phone: Interpretation and review of laboratory results Abnormal [facility] Work Phone: Mucus, UA TRACE Abnormal None [facility] Work Phone: Other Observations UA NOT REPORTED NOT REQ. [facility] Work Phone: RBC, UA 0 TO 2 [facility] Work Phone: Renal Epithelial, UA NOT REPORTED 0 /HPF [facility] Work Phone: Trichomonas, UA NOT REPORTED None [facility] [employer] Work Phone: WBC, UA 0 TO 2 [facility] Work Phone: Yeast, UA NOT REPORTED None [facility] Work Phone: [facility] Work Phone: No Panel InformationOrdered By: Cisco Lopez on 04-14-2021 [facility] [employer] Work Phone: UA w/Reflex Cultureon 2020 Bilirubin, SemiQt,Ur Negative Normal NEG [facility] Comment on above: Performed By: #### S WCGP #### [employer] [address] [place], [place] [id number] Cloud Subject Matter Expert: Collin De La Fuente MD Blood, Urine Negative Normal NEG [facility] Comment on above: Performed By: #### S WCGP #### [employer] [address] [place] [address] Cloud Subject Matter Expert: Collin De La Fuente MD Clarity (U) CLEAR Normal CLEAR [facility] Comment on above: Performed By: #### S WCGP #### [employer] [facility] [place], [place] [address] Cloud Subject Matter Expert: Collin De La Fuente MD Color (U) YELLOW Normal YEL [facility] Comment on above: Performed By: #### S WCGP #### [address] [address] Cloud Subject Matter Expert: Collin De La Fuente MD Glucose Ql (U) Negative [facility]G [facility] Comment on above: Performed By: #### S WCGP #### [address] [address] Cloud Subject Matter Expert: Collin De La Fuente MD Ketones Ql (U) TRACE Abnormal NEG [facility] Hospital Comment on above: Performed By: #### S WCGP #### [address] [address] Cloud Subject Matter Expert: Collin De La Fuente MD Leukocyte esterase Test strip Ql (U) Negative Normal NEG [facility] Comment on above: Performed By: #### S WCGP #### [address] [address] Cloud Subject Matter Expert: Collin De La Fuente MD Nitrite,Ur Negative Normal NEG [facility] Comment on above: Performed By: #### S WCGP #### [address] [address] Cloud Subject Matter Expert: Collin De La Fuente MD PH,Ur 5.5 Normal 5.0-9.0 [facility] Comment on above: Performed By: #### S WCGP #### [address] [address] Cloud Subject Matter Expert: Collin De La Fuente MD Protein Ql (U) TRACE Abnormal NEG [facility] Comment on above: Performed By: #### S WCGP #### [address] [address] Cloud Subject Matter Expert: Collin De La Fuente MD Spec. [place],Ur >1.030 High 1.010-1.020 [facility] Comment on above: Performed By: #### S WCGP #### [facility] [address] [id number] Cloud Subject Matter Expert: Collin De La Fuente MD Urobilinogen,Ur Normal Normal NORM [facility] Comment on above: Performed By: #### S WCGP #### [facility] [address] [place], [place] [address] Cloud Subject Matter Expert: Collin De La Fuente MD Comment NOT REPORTED Normal [facility] Comment on above: Performed By: #### S WCGP #### [facility] [address] [place] [address] Cloud Subject Matter Expert: Collin De La Fuente MD Urinalysis Reflex to Culture Ordered By: Cisco Lopez on 04-14-2021 Bilirubin Urine Negative NEGATIVE [facility] Work Phone: Color, UA YELLOW YELLOW [facility] [employer] Work Phone: Glucose, Ur Negative NEGATIVE [facility] [employer] Work Phone: Interpretation and review of laboratory results Abnormal [facility] [employer] Work Phone: Ketones Ql (U) TRACE Abnormal NEGATIVE [facility] Work Phone: Leukocyte esterase Test strip Ql (U) Negative NEGATIVE [facility] [employer] Phone: Nitrite, Urine Negative NEGATIVE [facility] Work Phone: pH, UA 5.5 [facility] [employer] Work Phone: Protein, UA TRACE Abnormal NEGATIVE [facility] [employer] Work Phone: Specific [place], UA >1.030 High [facility] [employer] Work Phone: Turbidity UA CLEAR CLEAR [facility] [employer] Work Phone: Urinalysis Comments NOT REPORTED [place] [employer] Work Phone: Urine Hgb Negative NEGATIVE [facility] [employer] Work Phone: Urobilinogen, Urine Normal Normal [facility] [employer] Phone: [facility] [employer] Work Phone: Urinalysis,Microon 05-20-202 1 ----- Normal [facility] Comment on above: Performed By: #### U ROSAO, UA #### [facility] [address] [place], [place] [id number] Cloud Subject Matter Expert: Amna Clements MD Bacteria TRACE Abnormal NONE [facility] Comment on above: Performed By: #### U ROSAO, UA #### [facility] [address] [place], [place] [address] Cloud Subject Matter Expert: Amna Clements MD Epithelial cells LM Ql (Urine sed) 10 TO 20 Normal 0-25 [facility] Comment on above: Performed By: #### U ROSAO, UA #### [address] [place] [address] Cloud Subject Matter Expert: Amna Clements MD Mucus Strands TRACE Abnormal [facility] Comment on above: Performed By: #### U ROSAO, UA #### [facility] [address] [place] [address] Dr[place], [place] 6855183 Cloud Subject Matter Expert: Amna Clements MD Urine RBC's 0 TO 2 Normal 0-2 [facility] Comment on above: Performed By: #### U MICAO, UA #### [address] [place] [address] Cloud Subject Matter Expert: Amna Clements MD Urine WBC's 0 TO 2 Normal 0-5 [facility] Comment on above: Performed By: #### U MICAO, UA #### [facility] [address] [place] [address] Cloud Subject Matter Expert: Amna Clements MD Amorphous sediment LM Ql (Urine sed) NOT REPORTED Normal [facility] Comment on above: Performed By: #### U MICAO, UA #### [facility] [address] [place] [address] [place], [place] 3795683 Cloud Subject Matter Expert: Amna Clements MD Casts NOT REPORTED Normal [facility] Comment on above: Performed By: #### U MICAO, UA #### [facility] [address] [place] [address] Cloud Subject Matter Expert: Amna Clements MD Crystals LM Nom (Urine sed) NOT REPORTED Normal [facility] Comment on above: Performed By: #### U MICAO, UA #### [facility] [address] [place], [facility] Cloud Subject Matter Expert: Amna Clements MD Epithelial, Renal NOT REPORTED Normal 0 [facility] Comment on above: Performed By: #### U ROSAO, UA #### [facility] [address] [place] [address] Cloud Subject Matter Expert: Amna Clements MD Other Observations NOT REPORTED Normal NREQ [facility] Comment on above: Performed By: #### U ROSAO, UA #### [facility] [address] [place] [address] Cloud Subject Matter Expert: Amna Clements MD Trichomonas NOT REPORTED Normal [facility] Comment on above: Performed By: #### U ROSAO, UA #### [facility] [address] [place] [address] Cloud Subject Matter Expert: Amna Clements MD Yeast NOT REPORTED Normal [facility] Comment on above: Performed By: #### U ROSAO, UA #### [facility] [address] [place] [address] Cloud Subject Matter Expert: Amna Clements MD D-Dimer Teston 03-24-2021 D-Dimer Test 0.44 mg/L FEU Normal 0.00-0.59 [facility] Comment on above: Result Comment: When [...] with distal DVT. Performed By: #### S [facility] #### [employer] [address] [place], [place] [phone] Cloud Subject Matter Expert: Collin De La Fuente MD D-Dimer, QuantitativeOrdered By: Lidia Núñez on 03-23-2021 D-Dimer, Quant 0.44 [employer] [facility] Work Phone: Comment on above: When combined [...] Ampon 03-11 Chlamydia Probe Negative Normal NEG [facility] Comment on above: Result Comment: CHLA [...] target. Performed By: #### S WCGP #### [address] [id number] Cloud Subject Matter Expert: Collin De La Fuente MD Gonorrhea Probe Negative Normal [facility] Comment on above: Result Comment: NEIS [...] target. Performed By: #### S WCGP #### [address] [phone] Cloud Subject Matter Expert: Collin De La Fuente MD Cult,Urineon 03-11-2021 Cult,Urine Specimen Description .CLEAN CATCH URINE Special Requests NOT REPORTED Culture NO SIGNIFICANT GROWTH Report Status FINAL 03/11/2021 Normal [facility] Comment on above: Performed By: #### U RC #### [address] [address] Cloud Subject Matter Expert: Collin De La Fuente MD [facility] [address] [place] [address] [place] [address] Cloud Subject Matter Expert: Amna Clements MD HCG, ,Urineon 03-10 Beta HCG ( test) Ql (U) Positive Abnormal NEG [facility] Comment on above: Result Comment: If HCG results do not concur with clinical observations, additional testing to confirm result is recommended. This test is not labeled for use as a tumor marker. [facility] has confirmed the use of plasma for this test. This has not been cleared or approved by the U.S. Food and Drug Administration. The FDA has determined that such clearance is not necessary. Performed By: #### S WCGP #### [address] [place], [place] 4[address] Cloud Subject Matter Expert: Collin De La Fuente MD Trichomonas/Wet Prepon 03-10 Trichomonas/Wet Prep Specimen Descriptio n .VAGINA Special Requests NOT REPORTED Direct Exam NO TRICHOMONAS SEEN NO YEAST OBSERVED RARE CLUE CELLS SEEN Report Status FINAL 03/10/2021 Normal [facility] Comment on above: Performed By: #### W P #### [facility] [address] [place] [address] Cloud Subject Matter Expert: Amna Clements MD UA w/Reflex Cultureon 2020 Acetoacetic Acid,Ur Negative Normal NEG [facility] Comment on above: Performed By: #### S WCGP #### [address] [phone] Cloud Subject Matter Expert: Collin De La Fuente MD Bilirubin, SemiQt,Ur Negative Normal [facility] Comment on above: Performed By: #### S WCGP #### [address] [phone] Cloud Subject Matter Expert: Collin De La Fuente MD Color (U) YELLOW Normal [facility] Comment on above: Performed By: #### S WCGP #### [address] [phone] Cloud Subject Matter Expert: Collin De La Fuente MD Glucose Ql (U) Negative Normal [facility] Comment on above: Performed By: #### S WCGP #### [address] [id number] Cloud Subject Matter Expert: Collin De La Fuente MD Hemoglobin, Ur Negative Normal NEG [facility] Comment on above: Performed By: #### S WCGP #### [address] [address] Cloud Subject Matter Expert: Collin De La Fuente MD Leukocyte esterase Test strip Ql (U) LARGE Abnormal NEG [facility] Comment on above: Performed By: #### S WCGP #### [address] [address] Cloud Subject Matter Expert: Collin De La Fuente MD Nitrite,Ur Negative Normal NEG [facility] Comment on above: Performed By: #### S WCGP #### [address] [address] Cloud Subject Matter Expert: Collin De La Fuente MD PH,Ur 7.5 Normal 5.0-9.0 [facility] Comment on above: Performed By: #### S WCGP #### [address] [address] Cloud Subject Matter Expert: Collin De La Fuente MD Protein Ql (U) Negative Normal NEG [facility] Comment on above: Performed By: #### S WCGP #### [address] [address] Cloud Subject Matter Expert: Collin De La Fuente MD Spec. [place],Ur 1.020 Normal 1.010-1.020 [facility] Comment on above: Performed By: #### S WCGP #### [address] [address] Cloud Subject Matter Expert: Collin De La Fuente MD Turbidity CLOUDY Abnormal CLEAR [facility] Comment on above: Performed By: #### S WCGP #### [address] [address] Cloud Subject Matter Expert: Collin De La Fuente MD Urobilinogen,Ur Normal Normal NORM [facility] Comment on above: Performed By: #### S WCGP #### [address] [address] Cloud Subject Matter Expert: Collin De La Fuente MD Comment NOT REPORTED Normal [facility] Comment on above: Performed By: #### S WCGP #### [address] [address] Cloud Subject Matter Expert: Collin De La Fuente MD Urinalysis,Microon 1 ----- Normal [facility] Comment on above: Performed By: #### S WCGP #### [address] [address] Cloud Subject Matter Expert: Collin De La Fuente MD Amorphous sediment LM Ql (Urine sed) 1+ Abnormal NONE [facility] Comment on above: Performed By: #### S WCGP #### [address] [address] Cloud Subject Matter Expert: Collin De La Fuente MD Bacteria 3+ Abnormal NONE [facility] Comment on above: Performed By: #### S WCGP #### [address] [address] Cloud Subject Matter Expert: Collin De La Fuente MD Epithelial cells LM Ql (Urine sed) 20 TO 50 Normal 0-25 [facility] Comment on above: Performed By: #### S WCGP #### [address] [address] Cloud Subject Matter Expert: Collin De La Fuente MD Urine RBC's None Normal 0-2 [facility] Comment on above: Performed By: #### S WCGP #### [facility] [address] [place] [address] Cloud Subject Matter Expert: Collin De La Fuente MD Urine WBC's 10 TO 20 Normal 0-5 [facility] Comment on above: Performed By: #### S WCGP #### [address] [address] Cloud Subject Matter Expert: Collin De La Fuente MD Casts NOT REPORTED Normal [facility] Comment on above: Performed By: #### S WCGP #### [facility] [address] [place] [address] Cloud Subject Matter Expert: Collin De La Fuente MD Crystals LM Nom (Urine sed) NOT REPORTED Normal [facility] Comment on above: Performed By: #### S WCGP #### [facility] [address] [place] [address] Cloud Subject Matter Expert: Collin De La Fuente MD Epithelial, Renal NOT REPORTED Normal [address] [place] [address] Comment on above: Performed By: #### S WCGP #### [facility] [address] [place] [address] Cloud Subject Matter Expert: Collin De La Fuente MD Mucus Strands NOT REPORTED Normal [facility] Comment on above: Performed By: #### S WCGP #### [address] [address] Cloud Subject Matter Expert: Collin De La Fuente MD Other Observations NOT REPORTED Normal NREQ [facility] Comment on above: Performed By: #### S WCGP #### [id number] [place] [address] Cloud Subject Matter Expert: Collin De La Fuente MD Trichomonas NOT REPORTED Normal [facility] Comment on above: Performed By: #### S WCGP #### [facility] [address] [place] [address] Cloud Subject Matter Expert: Collin De La Fuente MD Yeast NOT REPORTED Normal [facility] Comment on above: Performed By: #### S WCGP #### [facility] [address] [place] [address] Cloud Subject Matter Expert: Collin De La Fuente MD Cult,Urineon 03-02-2021 Cult,Urine Specimen Description .CLEAN CATCH URINE Special Requests NOT REPORTED Culture NO SIGNIFICANT GROWTH Report Status FINAL 03/02/2021 Normal [facility] Comment on above: Performed By: #### U RC #### [address] [address] Cloud Subject Matter Expert: Collin De La Fuente MD [facility] [address] [place] [address] Cloud Subject Matter Expert: Amna Clements MD C. Trachomatis, External Res ultOrdered By: Historical Provider on 03-01-2021 C. Trachomatis, External Result Negative [facility] [employer] Work Phone: Comment on above: William Joel RN/confirmed with Igor Kinsey RN N. Gonorrhoeae, External Res ultOrdered By: Historical Provider on 03-01-2021 N. Gonorrhoeae, External Result Negative [facility] [employer] Work Phone: Comment on above: William Joel RN/confirmed with Igor Kinsey RN No Panel InformationOrdered By: Historical Provider on 03-01-2021 [facility] Work Phone: Microscopic Urinalysison Amorphous, UA NOT REPORTED None [facility] Work Phone: Bacteria, UA NOT REPORTED None [facility] Work Phone: Casts UA NOT REPORTED /LPF [facility] [employer] Work Phone: Crystals, UA NOT REPORTED None /HPF [facility] Work Phone: Epithelial Cells UA 50 TO 100 [facility] [employer] Work Phone: Mucus, UA NOT REPORTED None [facility] [employer] Work Phone: Other Observations UA NOT REPORTED NOT REQ. [facility] Work Phone: RBC (U) [#/Vol] 0 TO 2 [facility] Work Phone: Renal Epithelial, UA NOT REPORTED 0 /HPF [facility] Work Phone: Trichomonas, UA NOT REPORTED None [facility] Work Phone: WBC, UA 20 TO 50 [facility] [employer] Work Phone: Yeast, UA NOT REPORTED None [facility] [employer] Work Phone: - [facility] [employer] Work Phone: Otheron 02-28-2021 Living intrauterine with an estimated gestational age of 13 weeks and 1 day by current ultrasound [employer] Phone: Dario, Mhpn Incoming Radiant Results From [employer] - 02/28/2021 1:48 PM EDT EXAMINATION: TRANSABDOMINAL [...] posteriorly to the right. Pole: Single pole [place] Length: 6.8 cm Heart Rate: 160 [...] weeks and 1 day by current ultrasound [employer] Phone: EXAMINATION: TRANSABDOMINAL FIRST TRIMESTER OBSTETRIC PELVIC [...] posteriorly to the right. Pole: Single pole [place] Length: 6.8 cm Heart Rate: 160 [...] days Estimated Due Date: 09/04/2021, 08/30/2021 respectively [employer] Phone: US DUP ABD PEL RETRO SCROT [...] posteriorly to the right. Pole: Single pole [place] Length: 6.8 cm Heart Rate: 160 [...] Mariano Min MD 02/28/21 Final result Normal [facility] US OB LESS THAN 14 WEEKS SIN [...] posteriorly to the right. Pole: Single pole [place] Length: 6.8 cm Heart Rate: 160 [...] Mariano Min MD 02/28/21 Final result Normal [facility] Urinalysis, Routineon 2020 Acetoacetic Acid,Ur Negative Normal NEG [facility] Comment on above: Performed By: #### U MICAO, UA #### [facility] [address] [place] [address] Cloud Subject Matter Expert: Amna Clements MD Bilirubin, SemiQt,Ur Negative Normal NEG [facility] Comment on above: Performed By: #### U MICAO, UA #### [facility] [address] [place] [address] Cloud Subject Matter Expert: Amna Clements MD Color (U) YELLOW Normal YEL [facility] Comment on above: Performed By: #### U MICAO, UA #### [facility] [address] [place], [place] [phone] Cloud Subject Matter Expert: Amna Clements MD Glucose Ql (U) Negative Normal NEG [facility] Comment on above: Performed By: #### U MICAO, UA #### [facility] [address] [place], [place] 266[address] Cloud Subject Matter Expert: Amna Clements MD Hemoglobin, Ur Negative Normal NEG [facility] Comment on above: Performed By: #### U MICAO, UA #### [facility] [address] [place] [address] [place], [place] 6[address]83 Cloud Subject Matter Expert: Amna Clements MD Leukocyte esterase Test strip Ql (U) MODERATE Abnormal NEG [facility] Comment on above: Performed By: #### U MICAO, UA #### [facility] [address] [place] [address] [place] [address] Cloud Subject Matter Expert: Amna Clements MD Nitrite,Ur Negative Normal NEG [facility] Comment on above: Performed By: #### U MICAO, UA #### [facility] [address] [place] [address] [place], [place] 038[address]83 Cloud Subject Matter Expert: Amna Clements MD PH,Ur 7.5 Normal 5.0-9.0 [facility] Comment on above: Performed By: #### U MICAO, UA #### [facility] [address] [place] [address] [place], [place] 2966783 Cloud Subject Matter Expert: Amna Clements MD Protein Ql (U) Negative Normal NEG [facility] Comment on above: Performed By: #### U MICAO, UA #### [facility] [address] [place], [place] [address] Cloud Subject Matter Expert: Amna Clements MD Spec. [place],Ur 1.020 Normal 1.010-1.020 [facility] Comment on above: Performed By: #### U MICAO, UA #### [facility] [address] [place] [address] Cloud Subject Matter Expert: Amna Clements MD Turbidity CLEAR Normal CLEAR [facility] Comment on above: Performed By: #### U MICAO, UA #### [facility] [address] [place], [place] 479[address]83 Cloud Subject Matter Expert: Amna Clements MD Urobilinogen,Ur Normal Normal NORM [facility] Comment on above: Performed By: #### U MICAO, UA #### [facility] [address] [place], [place] [address] Cloud Subject Matter Expert: Amna Clements MD Comment NOT REPORTED Normal [facility] Comment on above: Performed By: #### U MICAO, UA #### [facility] [address] [place] [address] Cloud Subject Matter Expert: Amna Clements MD Urinalysis, reflex to micros copicon 02-28-2021 Bilirubin Urine Negative NEGATIVE [facility] Work Phone: Color, UA YELLOW YELLOW [facility] Work Phone: Glucose, Ur Negative NEGATIVE [facility] Work Phone: Interpretation and review of laboratory results Abnormal [facility] [employer] Phone: Ketones Ql (U) Negative NEGATIVE [facility] Work Phone: Leukocyte esterase Test strip Ql (U) MODERATE Abnormal NEGATIVE [facility] [employer] Phone: Nitrite, Urine Negative NEGATIVE [facility] Work Phone: pH, UA 7.5 [facility] Work Phone: Protein (U) [Mass/Vol] Negative NEGATIVE [facility] [employer] Work Phone: Specific [place], UA 1.020 [facility] [employer] Phone: Turbidity UA CLEAR CLEAR [facility] [employer] Phone: Urinalysis Comments NOT REPORTED [facility] [employer] Work Phone: Urine Hgb Negative NEGATIVE [facility] [employer] Phone: Urobilinogen, Urine Normal Normal [facility] [employer] Phone: Urinalysis,Microon 1 ----- Normal [facility] Comment on above: Performed By: #### U MICAO, UA #### [facility] [address] [place], [place] [id number] Cloud Subject Matter Expert: Amna Clements MD Epithelial cells LM Ql (Urine sed) 50 TO 100 Normal 0-25 [facility] Comment on above: Performed By: #### U MICAO, UA #### [facility] [address] [place], [place] [id number] Cloud Subject Matter Expert: Amna Clements MD Urine RBC's 0 TO 2 Normal 0-2 [facility] Comment on above: Performed By: #### U MICAO, UA #### [facility] [address] [place], [place] [id number] Cloud Subject Matter Expert: Amna Clements MD Urine WBC's 20 TO 50 Normal 0-5 [facility] Comment on above: Performed By: #### U MICAO, UA #### [facility] [address] [place], [place] [id number] Cloud Subject Matter Expert: Amna Clements MD Amorphous sediment LM Ql (Urine sed) NOT REPORTED Normal [facility] Comment on above: Performed By: #### U MICAO, UA #### [facility] [address] [place] [address] Cloud Subject Matter Expert: Amna Clements MD Bacteria NOT REPORTED Normal [facility] Comment on above: Performed By: #### U MICAO, UA #### [facility] [address] [place], [place] [id number] Cloud Subject Matter Expert: Amna Clements MD Casts NOT REPORTED Normal [facility] Comment on above: Performed By: #### U ROSAO, UA #### [facility] [address] [place], [place] [id number] Cloud Subject Matter Expert: Amna Clements MD Crystals LM Nom (Urine sed) NOT REPORTED Normal NONE [facility] Comment on above: Performed By: #### U ROSAO, UA #### [facility] [address] [place] [address] Cloud Subject Matter Expert: Amna Clements MD Epithelial, Renal NOT REPORTED Normal 0 [facility] Comment on above: Performed By: #### U ROSAO, UA #### [facility] [address] [place], [place] [address] Cloud Subject Matter Expert: Amna Clements MD Mucus Strands NOT REPORTED Normal NONE [facility] Comment on above: Performed By: #### U ROSAO, UA #### [facility] [address] [place] [address] Cloud Subject Matter Expert: Amna Clements MD Other Observations NOT REPORTED Normal NREQ [facility] Comment on above: Performed By: #### U ROSAO, UA #### [facility] [address] [place] [address] Cloud Subject Matter Expert: Amna Clements MD Trichomonas NOT REPORTED Normal NONE [facility] Comment on above: Performed By: #### U MICAO, UA #### [facility] [address] [place] [address] Cloud Subject Matter Expert: Amna Clements MD Yeast NOT REPORTED Normal [facility] Comment on above: Performed By: #### U MICAO, UA #### [facility] [address] [place] [address] Cloud Subject Matter Expert: Amna Clements MD ABO, External ResultOrdered By: Historical Provider on 02-17-2021 ABO, External Result AB [employer] Phone: Comment on above: William Joel RN/confirmed with Igor Kinsey RN HIV, External ResultOrdered By: Historical Provider on 02-17-2021 HIV, External Result Non-Reactive [employer] Phone: Comment on above: William Joel RN/confirmed with Igor Kinsey RN Hepatitis B, External Result Ordered By: Historical Provider on 02-17-2021 Hep B, External Result Negative [employer] Phone: Comment on above: Wililam Joel RN/confirmed with Igor Kinsey RN Hepatitis C Antibody, Gas Golf Cart Repairer al ResultOrdered By: Historical Provider on 02-17-2021 Hepatitis C Antibody, External Result Negative [employer] Phone: Comment on above: William Joel RN/confirmed with Igor Kinsey RN No Panel InformationOrdered By: Historical Provider on 02-17-2021 [employer] Phone: RPR, External LabOrdered By: Historical Provider on 02-17-2021 RPR, External Result Non-Reactive [employer] Phone: Comment on above: William Joel RN/confirmed with Igor Kinsey RN Rh Factor, External ResultOr dered By: Historical Provider on 02-17-2021 Rh Factor, External Result Positive [employer] Phone: Comment on above: William Joel RN/confirmed with Igor Kinsey RN Rubella Titer, External Resu ltOrdered By: Historical Provider on 02-17-2021 Rubella Titer, External Result immune [employer] Phone: Comment on above: William Joel RN/confirmed with Igor Kinsey RN Vital Signs Date Time Vital Sign Value Performing Clinician Leydi carter 06-16-2021 23:58-0400 Diastolic blood pressure 62 mm[Hg] Richar Obrien APRN - CN Work Phone: [employer] Phone: 06-16-2021 23:58-0400 Heart rate 91 /min Richar Obrien APRN - CNM Work Phone: [employer] Work Phone: 06-16-2021 23:58-0400 Respiratory rate 16 /min Richar Obrien MEDICARE SALES EXECUTIVE - CNM Work Phone: [employer] Work Phone: 06-16-2021 23:58-0400 Systolic blood pressure 107 mm[Hg] Richar Obrien MEDICARE SALES EXECUTIVE - CNM Work Phone: [employer] Work Phone: 06-16-2021 20:33-0400 Body temperature 97.7 [degF] Richar Obrien MEDICARE SALES EXECUTIVE - CNM Work Phone: [employer] Work Phone: 05-24-2021 23:40-0400 Body temperature 97.9 [degF] Rema Pool MEDICARE SALES EXECUTIVE - CNM Work Phone: [employer] Work Phone: 05-24-2021 23:40-0400 Respiratory rate 20 /min Rema Pool MEDICARE SALES EXECUTIVE - CNM Work Phone: [employer] Work Phone: 05-24-2021 23:32-0400 Diastolic blood pressure 70 mm[Hg] Rema Pool MEDICARE SALES EXECUTIVE - CNM Work Phone: [employer] Work Phone: 05-24-2021 23:32-0400 Heart rate 109 /min Rema Pool MEDICARE SALES EXECUTIVE - CNM Work Phone: [employer] Work Phone: 05-24-2021 23:32-0400 Systolic blood pressure 120 mm[Hg] Rema Pool MEDICARE SALES EXECUTIVE - CNM Work Phone: [employer] Work Phone: 05-18-2021 08:59-0400 Diastolic blood pressure 55 mm[Hg] Richar Obrien MEDICARE SALES EXECUTIVE - CNM Work Phone: [employer] Work Phone: 05-18-2021 08:59-0400 Heart rate 100 /min Richar Gonzalez CNM Work Phone: [employer] Work Phone: 05-18-2021 08:59-0400 Systolic blood pressure 102 mm[Hg] Richar Obrien APRN - CNYinka Work Phone: [employer] Work Phone: 05-18-2021 06:45-0400 Body height 154.9 cm Richar Gonzalez CNYinka Work Phone: [employer] Work Phone: 05-18-2021 06:45-0400 Body mass index (BMI) [Ratio] 29.29 kg/m2 Richar Gonzalez CNM Work Phone: [employer] Work Phone: 05-18-2021 06:45-0400 Body weight 70.31 kg Richar Gonzalez CNM Work Phone: [employer] Work Phone: 05-18-2021 06:41-0400 Body temperature 98.4 [degF] Richar Gonzalez CNYinka Work Phone: [employer] Work Phone: 05-18-2021 06:41-0400 Respiratory rate 20 /min Richar Gonzalez CNM Work Phone: [employer] Work Phone: 04-14-2021 03:30-0400 Diastolic blood pressure 65 mm[Hg] Cisco Andes DO Work Phone: [employer] Work Phone: 04-14-2021 03:30-0400 SaO2% (BldA) [Mass fraction] 100 % Cisco Andes DO Work Phone: [employer] Work Phone: 04-14-2021 03:30-0400 Systolic blood pressure 107 mm[Hg] Cisco Andes DO Work Phone: [employer] Work Phone: 04-14-2021 01:57-0400 Heart rate 108 /min Cisco Andes DO Work Phone: [employer] Work Phone: 04-14-2021 01:35-0400 Respiratory rate 16 /min Cisco Andes DO Work Phone: [employer] Work Phone: 04-14-2021 01:33-0400 Body temperature 97.7 [degF] Cisco Andes DO Work Phone: [employer] Work Phone: 03-23-2021 21:13-0400 Body temperature 97.59 [degF] Lidia Núñez MD Work Phone: [employer] Work Phone: 03-23-2021 21:13-0400 Diastolic blood pressure 70 mm[Hg] Lidia Núñez MD Work Phone: [employer] Work Phone: 03-23-2021 21:13-0400 Heart rate 98 /min Lidia Núñez MD Work Phone: [employer] Work Phone: 03-23-2021 21:13-0400 Respiratory rate 16 /min Lidia Núñez MD Work Phone: [employer] Work Phone: 03-23-2021 21:13-0400 SaO2% (BldA) [Mass fraction] 98 % Lidia Núñez MD Work Phone: [employer] Work Phone: 03-23-2021 21:13-0400 Systolic blood pressure 119 mm[Hg] Lidia Núñez MD Work Phone: [employer] Phone: 02-28-2021 12:28-0400 Body Temperature 97.81 [degF] Meche Blood [employer] Phone: 02-28-2021 12:28-0400 BP Diastolic 72 mm[Hg] [facility] [employer] Phone: 02-28-2021 12:28-0400 BP Systolic 124 mm[Hg] Meche Blood [employer] Phone: 02-28-2021 12:28-0400 Pulse (Heart Rate) 97 /min [facility] Phone: 02-28-2021 12:28-0400 Pulse Oximetry 100 % [facility] [employer] [facility] Phone: 02-28-2021 12:28-0400 Respiratory Rate 15 /min Meche Blood [employer] Phone: Encounters Encounter Date Encounter Type Care [...] Richar Obrien APRN - CNM Work Phone: [facility] Start: 05-25-2021 End: 05-25-2021 [facility] [place] [facility] Start: 05-24-2021 End: 05-25-2021 Subsequent hospital visit by physician Rema Tapia MEDICARE SALES EXECUTIVE - CNM Work Phone: [facility] Labor and Delivery Start: 05-18-2021 End: 05-18-2021 [facility] Start: 05-18-2021 End: 05-18-2021 Subsequent hospital visit by physician Richar Obrien APRN - CNYinka Work Phone: [facility] Labor and Delivery Start: 04-14-2021 End: 04-14-2021 Emergency department patient visit [facility] Start: 04-14-2021 End: 04-14-2021 Emergency department patient visit [facility] Work Phone: [facility] ED Comment on above: Nausea and vomiting during (Primary Dx) Start: 03-23-2021 End: 03-24-2021 Emergency department patient visit LID[facility] Start: 03-23-2021 End: 03-23-2021 Emergency department patient visit Lidia Núñez MD Work Phone: [facility] ED Comment on above: Leg swelling (Primar y Dx) Start: 03-10-2021 End: 03-10-2021 Emergency department patient visit ALIDA ALCALA [facility] Start: 02-28-2021 End: 02-28-2021 Emergency department patient visit MECHE BLOOD [facility] Start: 02-28-2021 End: 02-28-2021 Emergency department patient visit Meche Caitie Work Phone: [facility] ED Comment on above: Abdominal pain, unsp [...] Phone: Start: 04-14-2021 Hepatic function panel Cisco [employer] DO Work Phone: Start: 04-14-2021 Urinalysis microscop ic only Cisco [employer] DO Work Phone: Start: 04-14-2021 Urnls dip stick/tabl et rgnt auto w/o microscopy Cisco [employer] DO Work Phone: Start: 03-23-2021 Fibrin dgradj [...] DTaP/Tdap/Td vaccine (2 - Td or Tdap) [facility] [employer] Phone: Start: 05-16-2023 DTaP/Tdap/Td vaccine (2 - Td) DTaP/Tdap/Td vaccine (2 - Td) [facility] [employer] Phone: Start: 07-27-2021 Influenza vaccination [facility] [employer] Phone: Start: 03-23-2021 End: 03-23-2022 VL DUP LOWER EXTREMITY VENOUS BILATERAL VL DUP LOWER EXTREMITY VENOUS BILATERAL Imaging Routine Leg swelling Expected: 03/23/2021, Expires: 03/23/2022 [facility] [employer] Phone: Comment on above: Expected: 03/23/2021 , Expires: 03/23/2022 Start: 2015 Screening for malign ant neoplasm of cervix Cervical cancer screen [facility] [employer] Phone: Start: 2010 COVID-19 Vaccine (1) COVID-19 Vaccin e (1) [facility] [employer] Phone: Start: 2009 [facility] Work Phone: Start: 2006 COVID-19 Vaccine (1) COVID-19 Vaccin e (1) [facility] [employer] Phone: Start: 1995 Varicella vaccine (1 of 2 - 2-dose childhood series) Varicella vaccine (1 of 2 - 2-dose childhood series) [facility] [employer] Phone: Start: 1994 Hepatitis C screening Hepatitis C sc reen [facility] [employer] Phone: End: 05-18-2021 Bacteria identified in Urine by Culture Urine culture Microbiology Routine One Time for 1 Occurrences starting 05/18/2021 until 05/18/2021 [facility] Comment on above: One Time for 1 Occur rences starting 05/18/2021 until 05/18/2021 End: 02-28-2021 CBC Auto Differential CBC Auto Differential Lab STAT One Time for 1 Occurrences starting 02/28/2021 until 02/28/2021 [employer] Phone: Comment on above: One Time for 1 Occur rences starting 02/28/2021 until 02/28/2021 End: 02-28-2021 Comprehensive Metabolic Panel w/ Reflex to MG Comprehensive Metabolic Panel w/ Reflex to MG Lab STAT One Time for 1 Occurrences starting 02/28/2021 until 02/28/2021 [employer] Phone: Comment on above: One Time for 1 Occur rences starting 02/28/2021 until 02/28/2021 End: 02-28-2021 Culture, Urine Culture, Urine Microbiology Routine One Time for 1 Occurrences starting 02/28/2021 until 02/28/2021 [employer] Phone: Comment on above: One Time for 1 Occur rences starting 02/28/2021 until 02/28/2021 Nonrebreather mask oxygen [employer] Phone: Comment on above: As directed - RT ([place] N) until discontinued starting 05/18/2021 As directed - RT ([place] N) until discontinued starting 05/24/2021 As directed - RT ([place] N) until discontinued starting 06/16/2021 End: 05-18-2021 SVE SVE Point of Care Testing Routine One Time for 1 Occurrences starting 05/18/2021 until 05/18/2021 [employer] Phone: Comment on above: One Time for 1 Occur rences starting 05/18/2021 until 05/18/2021 End: 05-24-2021 SVE SVE Point of Care Testing Routine One Time for 1 Occurrences starting 05/24/2021 until 05/24/2021 [employer] Phone: Comment on above: One Time for 1 Occur rences starting 05/24/2021 until 05/24/2021 End: 06-16-2021 SVE SVE Point of Care Testing Routine One Time for 1 Occurrences starting 06/16/2021 until 06/16/2021 [employer] Phone: Comment on above: One Time for 1 Occur rences starting 06/16/2021 until 06/16/2021 Payers Date Payer Category Payer Unknown [id number] 2.16.8 [id number] 1994 Unknown [id number] 2.16.8 40.1.699619.3.579.2.173 1994 Unknown [id number] 2.16.8 40.1.237854.3.579.2.173 1994 Unknown [id number] 2.16.8 40.1.792342.3.579.2.173 1994 Unknown [id number] 2.16.8 40.1.105258.3.579.2.173 1994 Unknown [id number] 2.16.8 40.1.939160.3.579.2.173 1994 Unknown [id number] 2.16.8 40.1.505163.3.579.2.173 1994 Unknown [id number] 2.16.84 0.1.399940.3.579.2.593 1994 Unknown [id number] 2.16.84 0.1.730081.3.579.2.593 1994 Unknown [id number] 2.16.84 0.1.161592.3.579.2.593 1994 Unknown [id number] 2.16.84 0.1.581693.3.579.2.593 1994 Unknown [id number] 2.16.84 0.1.255600.3.579.2.593 1994 Unknown [id number] 2.16.84 0.1.787746.3.579.2.593 1994 Unknown [id number] 2.16.84 0.1.297200.3.579.2.593 1994 Unknown [id number] 2.16.84 0.1.249516.3.579.2.593 1994 Unknown [id number] 2.16.84 0.1.582655.3.579.2.593 1994 Unknown [id number] 2.16.84 0.1.747942.3.579.2.593 1994 Unknown [id number] 2.16.84 0.1.832351.3.579.2.593 1994 Unknown [id number] 2.16.84 0.1.215496.3.579.2.593 1994 Unknown [id number] 2.16.84 0.1.270527.3.579.2.125 1994 Unknown [id number] 2.16.84 0.1.616700.3.579.2.1259 1994 Unknown [id number] 2.16.84 0.1.334765.3.579.2.125 1994 Unknown [id number] 2.16.84 0.1.438837.3.579.2.1259 1994 Unknown [id number] 2.16.84 0.1.646014.3.579.2.1258 1994 Unknown [id number] 2.16.84 0.1.612649.3.579.2.1259 1994 Unknown [id number] 2.16.84 0.1.607974.3.579.2.125 1994 Unknown [id number] 2.16.84 0.1.082588.3.579.2.1259 1994 Unknown [id number] 2.16.840 .1.469671.3.579.2.1258 1994 Unknown [id number] 2.16.840 .1.695947.3.579.2.125 1994 Unknown [id number] 2.16.840 .1.198511.3.579.2.125 1994 Unknown [id number] 2.16.840 .1.840461.3.579.2.1259 1994 Unknown [id number] 2.16.840. 1.866159.3.579.2.1259 1959 Self-pay [id number] 1959 Unknown [id number] 1. [id number] Social History Date Type Detail Facility Start: 02-28-2021 End: 06-16-2021 Tobacco smoking status NEIS Never smoker [employer] Phone: Start: 02-28-2021 End: 06-16-2021 Tobacco use and exposure Never used [employer] Phone: Start: 1994 Sex Assigned At Not on file [employer] Phone: Exposure to SARS-CoV -2 (event) Not sure [employer] Phone: Start: 12-07-2020 [employer] Phone: Start: 05-18-2021 End: 06-16-2021 Alcohol intake Ex-drinker (finding) [employer] Phone: History of Present illness Narrative 06-17-2021 [...] and TOCO. Orders received to discharge home. [facility] notified via telephone requesting pt's blood type [...] placed on monitor. documented in this encounter [employer] Phone: History of Present illness Narrative 05-18-2021 Erinn Simms RN - 05/18/2021 10:06 AM EDT Note Date & Type Note Facility 05-18-2021 History of Present illness Narrative Obstetrical outpatient discharge instructions explained to pt, pt v.u. Pt instructed to sisal picker keflex and zofran prescriptions at [facility] in [place], pt v.u. documented in this encounter [employer] Phone: Hospital Discharge instructions 03-23-2021 Instructions Note [...] ANY other concerns. documented in this encounter [employer] Phone: Evaluation note Note Date & Type Note Facility Evaluation note Diagnosis Leg swelling- Primary Swelling of limb documented in this encounter [employer] Phone: Evaluation note Note Date & Type Note Facility Evaluation note Diagnosis Nausea and vomiting during - Primary documented in this encounter [employer] Phone: Evaluation note Note Date & Type Note Facility Evaluation note Diagnosis Decreased movement affecting management of mother, antepartum documented in this encounter [employer] Phone: Hospital Discharge instructions Attachments Note Date & Type Note Facility Hospital Discharge instructions The following attachments cannot be sent through Care Everywhere.: Hyperemesis Gravidarum (Cymraes)Nausea and Vomiting (Cymraes)documented in this encounter [employer] Phone: Hospital Discharge instructions Instructions Note Date & Type Note Facility Hospital Discharge instructions Erinn Simms RN - 05/18/[address] Liss Tapia [facility] Dr. Alondra Obrien CN [address] [facility] [address] [facility] [address] [address] Alondra Carrillo [facility] [address] [facility] [address] [phone] Therese Villatoro, MSN, MEDICARE SALES EXECUTIVE, CNM [id number] Edgardo Power [facility] [address] Richar Marleyjorgito CNM [address] [place] [address] Gabbie Patrickr CN [address] [place] [address] [phone] ACTIVITY LIMITATIONS: ( x )Up and about [...] OF EMERGENCY CONTACT LABOR AND DELIVERY . CLOUD SUBJECT MATTER EXPERT PRESCRIPTIONS AT [facility] TODAY AND TAKE PRESCRIBED. KEFLEX TO BE TAKEN AT 2:30PM FOR FIRST DOSE. documented in this encounter [employer] Phone: Hospital Discharge instructions Instructions Note Date & Type Note Facility Hospital Discharge instructions Fiona Gilliland, RN - 05/25/[address] Liss Tapia [facility] Dr. Alondra Obrein [facility] [address] [facility] [address] Alondra Carrillo [facility] [address] [facility] [address] [phone] Therese Villatoro, MSN, MEDICARE SALES EXECUTIVE, CNM [facility] [address] [facility] [address] [address] Reyn[address] [facility] [address] Richar Ayakajorgito CNM [address] [place], [place] [id number] Gabbie Junior CN [address] [place], [place] [address] [phone] ACTIVITY LIMITATIONS: ( x )Up and about [...] AND DELIVERY . documented in this encounter [employer] Phone: Hospital Discharge instructions Instructions Note Date & Type Note Facility Hospital Discharge instructions Allyson Joel RN - 06/17/[address] Liss Tapia [facility] Dr[address] Alondra Obrien [facility] [address] [facility] [address] [facility] [address] Alondra Carrillo [facility] [address] [facility] [address] [phone] ACTIVITY LIMITATIONS: ( x )Up and about [...] AND DELIVERY . documented in this encounter [employer] Phone: Discharge Instructions * Instructions* Meche Blood MD - 02/28/2021 Take Keflex as directed until complete. Make sure to stay well-hydrated. Follow- up with your OB. Seek medical attention immediately for any worsening pain or any other acute concerns. * Attachments The following attachments cannot be sent through Care Everywhere. * Abdominal Pain (Cymraes) * : PROM: General Info (Cymraes) * UTI (Urinary Tract Infection): Female (Cymraes) documented in this encounter Assessments Diagnosis Abdominal pain, unspecified abdominal location- Primary Urinary tract infection without hematuria, site unspecified Intrauterine Reason for Referral Status Reason Specialty Diagnoses / Procedures Referre d By Contact Referred To Contact [facility] Diagnoses Leg swelling Procedures VL DUP LOWER EXTREMITY VENOUS BILATERAL Lidia Núñez MD [address] [place] [address] Advance Directives No Advanced Directives Records FoundLatest [...] ider: Lorena Vega RN)[phone] (Stopped - Provider: Mikaeal Stern RN) famotidine (PEPCID) injection 20 mg [...] DATE CREATED AUTHOR AUTHOR'S ORGANIZ ATION 08/16/2024 [facility] FOR RECORDS PERTAINING TO PATIENTS [...] BE BASED ON THE PRIMARY CLINICAL RECORDS. [employer] [facility]. provides no warranty or guarantee of the accuracy or completeness of information in this document.
== END 2024-09-04 11:07 | disposition home or self-care (01) ==
LOC: NOMS 11:07
PROVIDERS: Visit Provider Obstetrics & Gynecology
DX: Z36.89 Encounter for other specified antenatal screening (principal); Z3A.20 20 weeks gestation of pregnancy
CPT/HCPCS: 76805; 76817

== ENCOUNTER 2024-10-15 15:33 | Outpatient (OUT) | payer OTHER, SELFPAY ==
[2024-10-15 16:13] LABS: Basophils Percent Auto 0.2 % (0.2-2.0); Eosinophils Absolute Auto 0.1 10^3/uL (0.0-0.7); Eosinophils Percent Auto 0.7 % (0.9-7.0); Hematocrit 31.2 % (36.0-48.0); Hemoglobin 9.6 g/dL (12.0-16.0); Immature Granulocytes Pct Auto 0.8 % (0.0-0.5); Lymphocytes Absolute Auto 1.9 10^3/uL (1.2-3.8); Lymphocytes Percent Auto 14.8 % (20.5-60.0); Mean Corpuscular HGB Conc 30.8 g/dL (29.9-35.2); Mean Corpuscular Hemoglobin 25.7 pg (26.7-34.0); Mean Corpuscular Volume 83.6 fL (81.0-99.0); Mean Platelet Volume 10.4 fL (9.5-13.5); Monocytes Absolute Auto 0.7 10^3/uL (0.3-0.8); Monocytes Percent Auto 5.4 % (1.7-12.0); Neutrophils Percent Auto 78.1 % (43.0-75.0); Platelet Count 337 10^3/uL (150-450); Red Blood Count 3.73 10^6/uL (4.20-5.40); Red Cell Distribution Width 14.5 % (11.0-15.0); White Blood Count 12.8 10^3/uL (4.0-11.0)
== END 2024-10-15 15:34 | disposition home or self-care (01) ==
LOC: LAB 15:34
PROVIDERS: Visit Provider Physician Assistant
DX: Z13.1 Encounter for screening for diabetes mellitus (principal); Z3A.25 25 weeks gestation of pregnancy
CPT/HCPCS: 36415; 85025

== ENCOUNTER 2024-11-11 15:35 | Outpatient (OUT) | payer OTHER, SELFPAY ==
--- OUTSIDE RECORDS SUMMARY | 2024-11-11 15:50 | XMS_ITS | CCD ---
Author Organization [facility] Care Team Providers Care Medical Sales Name Role Phone Unavailable Primary Care Provider Unavailabl e POOL, REMA E Attending Unavailable POOL, REMA E Admitting Unavailable OBRIEN, RICHAR WELLS Admitting Unavailabl e OBRIEN, RICHAR WELLS Attending Unavailabl e OBRIEN, RICHAR WELLS Attending Unavailabl e OBRIEN, RICHAR WELLS Admitting Unavailabl e ALCALANANETTE TRISTAN Attending Unavailable CAITIE, MECHE Attending Unavailable JOANN, CISCO Attending Unavailable LIDIA NÚÑEZ Attending Unavailable FREDC, DR ALLRED Primary Care Unavailable BELLA, DR CARMELA Templeton Admitting Unavailabl e REINECK, DR CARMELA [place]ton Attending Unavailabl e GRECHNY ., MEÑO BAUTISTA Consulting Unavailabl e MARKER ., DR LUA Admitting Unavailable MARKER ., DR LUA Attending Unavailable MARKER ., DR LUA Consulting Unavailable MISC, DR ALLRED Primary Care Unavailable JANICE KAUFMAN Consulting Unavailable REQUEST, DR OLIVAREZ LISTED Primary Care Unavaila ble RIGO ., DR GUARDADO Admitting Unavailable RIGO ., DR GUARDADO Attending Unavailable REQUEST, DR NONE LISTED Primary Care Unavaila ble RIGO ., DR GUARADDO Consulting Unavailable RIGO ., DR GUARDADO Admitting [...] Unavailable RIGO ., DR GUARDADO Attending Unavailable LIMA, DR AMNA Ames Consulting Unavailable RIGO ., [...] Admitting Unavailable MARIO ., ARSH Attending Unavailable [facility] [place], DR ALLRED Primary Care Unavailable MARIO ., ARSH Consulting Unavailable Rosie CHENEY, Jamila Porras Primary Care Provider [phone] Quynh Burnett Unavailable QUYNH ROE Attending Unavailable JAMILA VELEZ Attending Unavailable RIGO, CLYDE Attending Unavailable RIGO, CLYDE Attending Unavailable RIGO, CLYDE Attending Unavailable RIGO, CLYDE Attending Unavailable RIGO, CLYDE Attending Unavailable QUYNH ROE Attending Unavailable RIGO, CLYDE Attending Unavailable JAMILA VELEZ Attending Unavailable QUYNH ROE Attending Unavailable Allergies Allergy Classification Reported Allergen(s) Allergy Type Date of Onset Reaction(s) Facility Latex (5 sources) Latex Substance Allergy 1 Swelling [facility] (1 source) Latex Propensity to adverse reactions to drug 1 [facility] Work Phone: (1 source) Latex Drug allergy (disorder) [facility] (6 sources) Latex Propensity to adverse reactions 0 Hives, Swelling, Rash [facility] Work Phone: Medications Current Medications Medication Drug Class(es) Dates [...] 04-14-2021 famotidine (PEPCID) injectio n 20 mg polysaccharide iron complex 391 mg oral capsule (3 sources) Start: 10-15-2024 End: 11-14-2024 take 1 capsule by mouth once daily iron polysaccharides (ProFe) 391.3 (180 Fe) MG capsule Indications: Second trimester Take 1 capsule (391.3 mg) by mouth Daily 30 capsule 6 10/15/2024 11/14/2024 Active Vit-Fe Fumarate-FA ( VITAMIN PO) (5 sources) [...] WITHOUT ESOPHAGITIS] Onset: 10-11-2022 Chronic Menstrual disorders (11 sources) Irregular menstruation, unspecified; Translations: [Missed period] Onset: 04-06-2023 Chronic Other complications of (1 source) Nausea and vomiting; Translations: [Vomiting of , unspecified] Episodic Other complications of (3 sources) Other [...] disorders] Episodic Other and delivery including normal (8 sources) Intrauterine ; Translations: [Encounter for supervision of other normal , first trimester] Onset: 04-16-2023 Episodic Other screening for suspected conditions (not mental disorders or infectious disease) (7 sources) Encounter for test, result negative; Translations: [Encounter for screening for malignant neoplasm of cervix] Onset: 07-04-2022 Episodic Residual codes; unclassified (1 source) 8 weeks gestation of ; Translations: [8 WEEKS GESTATION OF ] Onset: 04-16-2023 Episodic Residual codes; unclassified (2 sources) Gestation period, 25 weeks; Translations: [25 weeks gestation of ] 10-15-2024 Episodic Past or Other Problems Problem Classification Problem Date Documented Da te Episodic/Chronic Cardiac dysrhythmias (6 sources) Intermittent palpitations; Translations: [Palpitations] Onset: 05-08-2024 05-08-2024 Episodic Hemorrhage during ; abruptio placenta; placenta previa (3 sources) Hemorrhage in early , unspecified; Translations: [HEMORRHAGE EARLY UNS] Onset: 10-13-2022 Episodic Immunizations and screening for infectious disease (1 source) Encounter for screening for human papillomavirus (HPV); Translations: [ENC SCREENING HUMAN PAPILLOMAVIRUS] Onset: 07-06-2022 Episodic Miscellaneous mental health disorders (6 sources) Anxiety about body function or health; Translations: [Other symptoms and signs involving emotional state] Onset: 05-08-2024 05-08-2024 Episodic Nonspecific chest pain (4 sources) Chest pain, unspecified; Translations: [CHEST PAIN UNSPECIFIED] Onset: 10-09-2022 Episodic Other complications of (9 sources) Reduced movement; Translations: [Decreased movements, unspecified trimester, not applicable or unspecified] Onset: 05-24-2021 Episodic Other complications of (1 source) Other [...] Translations: [CONSTIPATION UNSPECIFIED] Onset: 09-15-2022 Episodic Other gastrointestinal disorders (6 sources) Slow transit constipation; Translations: [Slow transit constipation] Onset: 05-08-2024 05-08-2024 Episodic Other injuries and conditions due to external causes (6 sources) Injury of abdomen; Translations: [Unspecified injury of abdomen, initial encounter] Onset: 05-08-2024 05-08-2024 Episodic Ovarian cyst (5 sources) Unspecified ovarian cyst, unspecified side; Translations: [Unspecified ovarian cyst, left side] Onset: 07-06-2022 Episodic Residual codes; unclassified (1 source) Weeks of gestation of not specified; Translations: [WEEKS GESTATION NOT SPEC] Onset: 10-11-2022 Episodic Residual codes; unclassified (6 sources) Gestation period, 29 weeks; Translations: [29 weeks gestation of ] Onset: 05-08-2024 05-08-2024 Episodic Spontaneous (1 source) Complete or unspecified spontaneous without complication; Translations: [COMPLETE/UNS SPONT AB W/O COMP] Onset: 10-16-2022 Episodic Urinary tract infections (2 sources) Urinary tract infectious disease; Translations: [Urinary tract infection, site not specified] Onset: 10-11-2022 Episodic Results Test Name Value Interpretation Reference Range Facility ALL CBC WITH AUTO DIFFon BASOPHILS ABSOLUTE AUTO 0 N [facility] Basophils/100 WBC (Bld) 0.2 % 0.2 - 2.0 % [facility] Eosinophils/100 WBC (Bld) 0.7 % Low 0.9 - 7.0 % [facility] Erythrocyte distribution width (RBC) [Ratio] 14.5 % 11.0 - 15.0 % [facility] Hematocrit (Bld) [Volume fraction] 31.2 % Low 36.0 - 48.0 % [facility] Hemoglobin (Bld) [Mass/Vol] 9.6 g/dL Low 12.0 - 16.0 g/dL [facility] IMMATURE GRANULOCYTES ABS AUTO 0.1 High [facility] Immature granulocytes/100 WBC (Bld) 0.8 % High 0.0 - 0.5 % [facility] Interpretation and review of laboratory results Abnormal [facility] LYMPHOCYTES ABSOLUTE AUTO 1.9 [facility] Lymphocytes/100 WBC (Bld) 14.8 % Low 20.5 - 60.0 % [facility] MCH (RBC) [Entitic mass] 25.7 pg Low 26.7 - 34.0 pg [facility] MCHC (RBC) [Mass/Vol] 30.8 g/dL 29.9 - 35.2 g/dL [facility] MCV (RBC) [Entitic vol] 83.6 fL 81.0 - 99.0 fL [facility] MONOCYTES ABSOLUTE AUTO 0.7 N [facility] Monocytes/100 WBC (Bld) 5.4 % 1.7 - 12.0 % [facility] NEUTROPHILS ABSOLUTE AUTO 10 High [facility] Neutrophils/100 WBC (Bld) 78.1 % High 43.0 - 75.0 % [facility] Platelet mean volume (Bld) [Entitic vol] 10.4 fL 9.5 - 13.5 fL [facility] TBH EO # 0.1 [facility] PLT 337 [facility] RBC 3.73 Low [facility] WBC 12.8 High [facility] Urinalysis macro (dipstick) panel (U)on 10-15-2024 Bilirubin, UA Negative Negative - 4(70) +++ mg/dL [facility] Blood, UA Negative Negative - 50 Cleve/mcL [facility] Clarity, UA Clear [facility] Color, UA Yellow [facility] Glucose, UA Negative Negative - 1999(110) ++++ mg/dL [facility] Interpretation and review of laboratory results Abnormal [facility] Ketones, UA Negative Negative - 160(16) ++++ mg/dL [facility] Leukocytes, UA Positive Negative - 500+++ Arun/mcL [facility] Comment on above: small Nitrite, UA Negative Negative - Positive [facility] pH, UA 7.5 5 - 9 [facility] Protein, UA Negative Negative - 1999(20) ++++ mg/dL [facility] Spec Grav, UA 1.015 1 - 1.03 [facility] Urobilinogen, UA 0.2 0.2 - 12 mg/dL [facility] HEP B SURFACE ANTIGEN SCREEN on 04-18-2023 HBsAg Screen Negative Normal Negative [facility] Comment on above: Performed By: #### H BSA #### [facility] [address] [address] [address] Josh Jacinto HEPATITIS C VIRUS AB W/ REFL EX QUANTon 04-18-2023 HCV AB Non-Reactive Normal Non Reactive [facility] Comment on above: Performed By: #### H CVPCRR #### [facility] [address] [address] [address] Josh Jacinto HIV 1 AND 2 WITH REFLEXon HIV Screen 4th Generation wRfx Non-Reactive Normal Non Reactive [facility] Comment on above: Result Comment: HIV Negative HIV-1/HIV-2 antibodies and HIV-1 p24 antigen were NOT detected. There is no laboratory evidence of HIV infection. Performed By: #### B OX #### [facility] [address] [place] [address] Dr. Josh Jacinto RPR QUANTon 04-18-2023 Rapid Plasma Reagin, Quant Non-Reactive Normal NonRea<1:1 [facility] Comment on above: Result Comment: Plea se Note: This test does not meet current guidelines for screening and diagnosis of syphilis. This test is intended for following treatment response in patients being treated for syphilis infection. To screen for syphilis infection, a reflex cascade that includes both RPR and a treponema-specific assay should be utilized, such as Treponema pallidum (Syphilis) Screening [place] (119144) or Rapid Plasma Reagin (RPR) Test With Reflex to Quantitative RPR and Confirmatory Treponema pallidum Antibodies (008245). Performed By: #### B OX #### [facility] [address] [place] [address] Dr. Josh Jacinto RUBELLA AB IGGon 04-18-2023 Rubella Antibodies, IgG 1.84 index Normal Immune >0.99 [facility] Comment on above: Result Comment: Non- immune <0.90 Equivocal 0.90 - 0.99 Immune >0.99 Performed By: #### H CGSUB #### [facility] [address] [place] [address] Dr. Josh Jacinto BOX TEST SENT OUTon 04-16-20 23 SENT TO REF LAB 04/17/2023 Normal [facility] Comment on above: Performed By: #### B OX #### [facility] [address] [place] [address] Dr. Josh Jacinto CBC AUTO DIFFon 04-16-2023 BASO # 0.0 103/ul Normal 0.0-0.1 [facility] Comment on above: Performed By: #### B OX #### [facility] [address] [place] [address] Dr. Josh Jacinto Basophils/100 WBC (Bld) 0.2 % Normal 0.2-2.0 [facility] Comment on above: Performed By: #### B OX #### [facility] [address] [place] [address] Dr. Josh Jacinto EO # 0.1 103/ul Normal 0.0-0.7 [facility] Comment on above: Performed By: #### B OX #### [facility] [address] [place] [address] Dr. Josh Jacinto Eosinophils/100 WBC (Bld) 0.6 % Critically low 0.9-7.0 [facility] Comment on above: Performed By: #### B OX #### [facility] [address] [place] [address] Dr. Josh Jacinto Erythrocyte distribution width (RBC) [Ratio] 13.4 % Normal 11.0-15.0 [facility] Comment on above: Performed By: #### B OX #### [facility] [address] [place] [address] Dr. Josh Jacinto Hematocrit (Bld) [Volume fraction] 36.9 % Normal 36.0-48.0 [facility] Comment on above: Performed By: #### B OX #### [facility] [address] [place] [address] Dr. Josh Jacinto Hemoglobin (Bld) [Mass/Vol] 12.4 g/dL Normal 12.0-16.0 [facility] Comment on above: Performed By: #### B OX #### [facility] [address] [place] [address] Dr. Josh Jacinto IG # 0.02 10e3/ul Normal 0.00-0.03 [facility] Comment on above: Performed By: #### B OX #### [facility] [address] [place] [address] Dr. Josh Jacinto IG % 0.2 % Normal 0.0-0.5 [facility] Comment on above: Performed By: #### B OX #### [facility] [address] [place] [address] Dr. Josh Jacinto LYMPH # 2.3 103/ul Normal 1.2-3.8 [facility] Comment on above: Performed By: #### B OX #### [facility] [address] [place] [address] Dr. Josh Jacinto Lymphocytes/100 WBC (Bld) 19.4 % Critically low 20.5-60.0 [facility] Comment on above: Performed By: #### B OX #### [facility] [address] [place] [address] Dr. Josh Jacinto MANUAL DIFF REQ NO Normal [facility] Comment on above: Performed By: #### B OX #### [facility] [address] [place] [address] Dr. Josh Jacinto MCH (RBC) [Entitic mass] 29.6 pg Normal 26.7-34.0 [facility] Comment on above: Performed By: #### B OX #### [facility] [address] [place] [address] Dr. Josh Jacinto MCHC (RBC) [Mass/Vol] 33.6 g/dL Normal 29.9-35.2 [facility] Comment on above: Performed By: #### B OX #### [facility] [address] [place] [address] Dr. Josh Jacinto MCV (RBC) [Entitic vol] 88.1 fL Normal 81.0-99.0 [facility] Comment on above: Performed By: #### B OX #### [facility] [address] [place] [address] Dr. Josh Jacinto MONO # 0.6 103/ul Normal 0.3-0.8 [facility] Comment on above: Performed By: #### B OX #### [facility] [address] [place] [address] Dr. Josh Jacinto Monocytes/100 WBC (Bld) 5.1 % Normal 1.7-12.0 [facility] Comment on above: Performed By: #### B OX #### [facility] [address] [address] [address] Josh Jacinto NEUT # 9.0 103/ul Critically high 1.4-6.5 [facility] Comment on above: Performed By: #### B OX #### [facility] [address] [address] [address] Josh Jacinto Neutrophils/100 WBC (Bld) 74.5 % Normal 43.0-75.0 [facility] Comment on above: Performed By: #### B OX #### [facility] [address] [address] [address] Josh Jacinto Platelet mean volume (Bld) [Entitic vol] 10.1 fL Normal 9.5-13.5 [facility] Comment on above: Performed By: #### B OX #### [facility] [address] [address] [address] Josh Jacinto PLT 337 103/ul Normal 150-450 [facility] Comment on above: Performed By: #### B OX #### [facility] [address] [address] [address] Josh Jacinto RBC 4.19 106/ul Critically low 4.20-5.40 [facility] Comment on above: Performed By: #### B OX #### [facility] [address] [address] [address] Josh Jacinto WBC 12.0 103/ul Critically high 4.0-11.0 [facility] Comment on above: Performed By: #### B OX #### [facility] [address] [address] [address] Josh Jacinto CULTURE URINEon 04-16-2023 CULTURE URINE Culture Observations: NO GROWTH. Normal [facility] Comment on above: Performed By: #### H CGSUB #### [facility] [address] [address] [address] Josh Jacinto GLYCOHEMOGLOBIN A1Con 2022 ADA RECOMMENDATION SEE BELOW Normal [facility] Comment on above: Result Comment: ADA RECOMMENDED LIMIT 4.0 - 6.0 ADA THERAPEUTIC TARGET < 7.0 ACTION SUGGESTED > 7.0 Performed By: #### H CVPCRR #### [facility] [address] [place] [address] Dr. Josh Jacinto Glucose [Mass/Vol] 91 mg/dL Normal [facility] Comment on above: Performed By: #### H CVPCRR #### [facility] [address] [place] [address] Dr. Josh Jacinto HbA1c (Bld) [Mass fraction] 4.8 % Normal 4.5-6.2 [facility] Comment on above: Performed By: #### H CVPCRR #### [facility] [address] [place] [address] Dr. Josh Jacinto TSHon 04-16-2023 TSH 1.700 uIU/mL Normal 0.358-3.740 [facility] Comment on above: Performed By: #### H CGSUB #### [facility] [address] [place] [address] Dr. Josh Jacinto TYPE AND SCREENon 04-16-2023 TYPE AND SCREEN Negative Normal [facility] Comment on above: Performed By: #### H CGSUB #### [facility] [address] [place] [address] Dr. Josh Jacinto US PREG TVon 04-13-2023 US PREG TV EXAMINATION: US PREG TV HISTORY: Pain TECHNIQUE: Grayscale and color Doppler sonographic evaluation of the uterus and adnexa was performed utilizing a transvaginal approach only. COMPARISON: 04/06/2023 FINDINGS: Uterus: Size: Normal Orientation:Antevert ed Intrauterine Gestational Sac: Present Yolk Sac: Present Pole: Present. [place]-rump length measures 2.1 cm, 8 weeks 5 [...] ANANT ERIC Date: 2023-04-13 20:47 Normal [facility] US PREG TVon 04-06-2023 US PREG TV [...] BY US CRL: 7 weeks 2 days EBLL BY US CRL: 11/21/2023 IMPRESSION: 1. Single live intrauterine . Electronically authenticated by: ROXY TOBIAS Date: 2023-04-06 10:05 Normal [facility] CBC AUTO DIFFon 10-13-2022 BASO # 0.0 103/ul Normal 0.0-0.1 [facility] Comment on above: Performed By: #### H CVPCRR #### [facility] [address] [place] [address] Dr. Josh Jacinto Basophils/100 WBC (Bld) 0.4 % Normal 0.2-2.0 [facility] Comment on above: Performed By: #### H CVPCRR #### [facility] [address] [address] [address] Josh Jacinto EO # 0.1 103/ul Normal 0.0-0.7 [facility] Comment on above: Performed By: #### H CVPCRR #### [facility] [address] [place] [address] Dr. Josh Jacinto Eosinophils/100 WBC (Bld) 1.2 % Normal 0.9-7.0 [facility] Comment on above: Performed By: #### H CVPCRR #### [facility] [address] [place] [address] Dr. Josh Jacinto Erythrocyte distribution width (RBC) [Ratio] 12.7 % Normal 11.0-15.0 [facility] Comment on above: Performed By: #### H CVPCRR #### [facility] [address] [place] [address] Dr. Josh Jacinto Hematocrit (Bld) [Volume fraction] 39.3 % Normal 36.0-48.0 [facility] Comment on above: Performed By: #### H CVPCRR #### [facility] [address] [place] [address] Dr. Josh Jacinto Hemoglobin (Bld) [Mass/Vol] 13.1 g/dL Normal 12.0-16.0 [facility] Comment on above: Performed By: #### H CVPCRR #### [facility] [address] [place] [address] Dr. Josh Jacinto IG # 0.02 10e3/ul Normal 0.00-0.03 [facility] Comment on above: Performed By: #### H CVPCRR #### [facility] [address] [place] [address] Dr. Josh Jacinto IG % 0.3 % Normal 0.0-0.5 [facility] Comment on above: Performed By: #### H CVPCRR #### [facility] [address] [place] [address] Dr. Josh Jacinto LYMPH # 2.1 103/ul Normal 1.2-3.8 [facility] Comment on above: Performed By: #### H CVPCRR #### [facility] [address] [place] [address] Dr. Josh Jacinto Lymphocytes/100 WBC (Bld) 28.8 % Normal 20.5-60.0 [facility] Comment on above: Performed By: #### H CVPCRR #### [facility] [address] [place] [address] Dr. Josh Jacinto MANUAL DIFF REQ NO Normal [facility] Comment on above: Performed By: #### H CVPCRR #### [facility] [address] [place] [address] Dr. Josh Jacinto MCH (RBC) [Entitic mass] 28.9 pg Normal 26.7-34.0 [facility] Comment on above: Performed By: #### H CVPCRR #### [facility] [address] [place] [address] Dr. Josh Jacinto MCHC (RBC) [Mass/Vol] 33.3 g/dL Normal 29.9-35.2 [facility] Comment on above: Performed By: #### H CVPCRR #### [facility] [address] [place] [address] Dr. Josh Jacinto MCV (RBC) [Entitic vol] 86.6 fL Normal 81.0-99.0 [facility] Comment on above: Performed By: #### H CVPCRR #### [facility] [address] [place] [address] Dr. Josh Jacinto MONO # 0.6 103/ul Normal 0.3-0.8 [facility] Comment on above: Performed By: #### H CVPCRR #### [facility] [address] [place] [address] Dr. Josh Jacinto Monocytes/100 WBC (Bld) 8.7 % Normal 1.7-12.0 [facility] Comment on above: Performed By: #### H CVPCRR #### [facility] [address] [place] [address] Dr. Josh Jacinto NEUT # 4.4 103/ul Normal 1.4-6.5 [facility] Comment on above: Performed By: #### H CVPCRR #### [facility] [address] [place] [address] Dr. Josh Jacinto Neutrophils/100 WBC (Bld) 60.6 % Normal 43.0-75.0 [facility] Comment on above: Performed By: #### H CVPCRR #### [facility] [address] [place] [address] Dr. Josh Jacinto Platelet mean volume (Bld) [Entitic vol] 10.0 fL Normal 9.5-13.5 [facility] Comment on above: Performed By: #### H CVPCRR #### [facility] [address] [place] [address] Dr. Josh Jacinto PLT 327 103/ul Normal 150-450 [facility] Comment on above: Performed By: #### H CVPCRR #### [facility] [address] [place] [address] Dr. Josh Jacinto RBC 4.54 106/ul Normal 4.20-5.40 [facility] Comment on above: Performed By: #### H CVPCRR #### [facility] [address] [place] [address] Dr. Josh Jacinto WBC 7.2 103/ul Normal 4.0-11.0 [facility] Comment on above: Performed By: #### H CVPCRR #### [facility] [address] [place] [address] Dr. Josh Jacinto ER URINE PROFILEon 2 Bilirubin Ql (U) Negative Normal NEGATIVE [facility] Comment on above: Performed By: #### H CVPCRR #### [facility] [address] [place] [address] Dr. Josh Jacinto Clarity (U) CLEAR Normal CLEAR [facility] Comment on above: Performed By: #### H CVPCRR #### [facility] [address] [place] [address] Dr. Josh Jacinto Color (U) LT. YELLOW Normal YELLOW [facility] Comment on above: Performed By: #### H CVPCRR #### [facility] [address] [place] [address] Dr. Josh Jacinto ERUAHD A micrscopic examination will be performed if indicated. Normal [facility] Comment on above: Performed By: #### H CVPCRR #### [facility] [address] [place] [address] Dr. Josh Jacinto Glucose Ql (U) Negative Normal NEGATIVE [facility] Comment on above: Performed By: #### H CVPCRR #### [facility] [address] [address] [address] Josh Jacinto Hemoglobin Ql (U) LARGE Abnormal NEGATIVE [facility] Comment on above: Performed By: #### H CVPCRR #### [facility] [address] [address] [address] Josh Jacinto Ketones Ql (U) Negative Normal NEGATIVE [facility] Comment on above: Performed By: #### H CVPCRR #### [facility] [address] [address] [address] Josh Jacinto LEUKOCYTES Negative Normal NEGATIVE [facility] Comment on above: Performed By: #### H CVPCRR #### [facility] [address] [address] [address] Josh Jacinto Nitrite Ql (U) Negative Normal NEGATIVE [facility] Comment on above: Performed By: #### H CVPCRR #### [facility] [address] [place] [address] Dr. Josh Jacinto pH (U) 6.5 [pH] Normal 5-9 [facility] Comment on above: Performed By: #### H CVPCRR #### [facility] [address] [place] [address] Dr. Josh Jacinto SPEC GRAVITY 1.010 Normal 1.005-<=1.025 [facility] Comment on above: Performed By: #### H CVPCRR #### [facility] [address] [place] [address] Dr. Josh Jacinto UA PROTEIN Negative Normal NEGATIVE/ TRACE [facility] Comment on above: Performed By: #### H CVPCRR #### [facility] [address] [place] [address] Dr. Josh Jacinto UR MICRO IND INDICATED Normal [facility] Comment on above: Performed By: #### H CVPCRR #### [facility] [address] [place] [address] Dr. Josh Jacinto Urobilinogen Qn (U) 0.2 {Pio'U}/dL Normal 0.2 - 1. 0 [facility] Comment on above: Performed By: #### H CVPCRR #### [facility] [address] [place] [address] Dr. Josh Jacinto PREG QUANT HCGon 10-13-2022 HCG QUANT 4 mIU/mL Normal [facility] Comment on above: Performed By: #### P REGQNT #### [facility] [address] [place] [address] Dr. Josh Jacinto HCG RANGE SEE BELOW Normal [facility] Comment on above: Result Comment: 5-50 0.2-1 WEEK 50-500 1-2 WEEKS 100-5,000 2-3 WEEKS 500-10,000 3-4 WEEKS 1,000-50,000 4-5 WEEKS 10,000-100,000 5-6 WEEKS 15,000-200,000 6-8 WEEKS 10,000-100,000 2-3 MONTHS Performed By: #### P REGQNT #### [facility] [address] [place] [address] Dr. Josh Jacinto PROTIMEon 10-13-2022 INR Coag (PPP) [Relative time] 1.29 {INR} Normal [facility] Comment on above: Performed By: #### H CVPCRR #### [facility] [address] [place] [address] Dr. Josh Jacinto INR GUIDELINES SEE BELOW Normal [facility] Comment on above: Result Comment: PASCUAL RED INR: 2.0 - 3.0 CONDITIONS NOT LISTED BELOW 2.5 - 3.5 FOR PROSTHETIC HEART VALVE REPLACEMENT 2.5 - 3.5 RECURRENT THROMBOSIS Performed By: #### H CVPCRR #### [facility] [address] [address] [address] Josh Jacinto PT Coag (PPP) [Time] 13.7 s Critically high 9.0-11.6 [facility] Comment on above: Performed By: #### H CVPCRR #### [facility] [address] [place] [address] Dr. Josh Jacinto PTTon 10-13-2022 aPTT Coag (Bld) [Time] 25.1 s Normal 22.3-36.2 Th [facility] Comment on above: Performed By: #### H CVPCRR #### [facility] [address] [place] [address] Dr. Josh Jacinto URINE MICROSCOPIC ONLYon BACTERIA NONE SEEN Normal NONE SEEN The [facility] Comment on above: Performed By: #### H CVPCRR #### [facility] [address] [place] [address] Dr. Josh Jacinto Bacteria identified Cx Nom (U) NOT INDICATED Normal [facility] Comment on above: Performed By: #### H CVPCRR #### [facility] [address] [place] [address] Dr. Josh Jacinto CAST NONE SEEN Normal NONE SEEN The [facility] Comment on above: Performed By: #### H CVPCRR #### [facility] [address] [place] [address] Dr. Josh Jacinto Crystals LM Nom (Urine sed) NONE SEEN Normal NONE SEEN The [facility] Comment on above: Performed By: #### H CVPCRR #### [facility] [address] [place] [address] Dr. Josh Jacinto Epithelial cells LM Ql (Urine sed) MODERATE Abnormal NONE SEEN /RARE The [facility] Comment on above: Performed By: #### H CVPCRR #### [facility] [address] [place] [address] Dr. Josh Jacinto MUCOUS NONE SEEN Normal NONE SEEN The [facility] Comment on above: Performed By: #### H CVPCRR #### [facility] [address] [place] [address] Dr. Josh Jacinto RBC 10-20 Abnormal 0-2 [facility] Comment on above: Performed By: #### H CVPCRR #### [facility] [address] [place] [address] Dr. Josh Jacinto WBC 0-2 Abnormal NONE SEEN The [facility] Comment on above: Performed By: #### H CVPCRR #### [facility] [address] [place] [address] Dr. Josh Jacinto US PREG TVon 10-13-2022 [...] AMNA VALLADARES Date: 2022-10-13 08:40 Normal [facility] CBC AUTO DIFFon 10-09-2022 BASO # 0.0 103/ul Normal 0.0-0.1 [facility] Comment on above: Performed By: #### H CVPCRR #### [facility] [address] [place] [address] Dr. Josh Jacinto Basophils/100 WBC (Bld) 0.3 % Normal 0.2-2.0 [facility] Comment on above: Performed By: #### H CVPCRR #### [facility] [address] [place] [address] Dr. Josh Jacinto EO # 0.0 103/ul Normal 0.0-0.7 [facility] Comment on above: Performed By: #### H CVPCRR #### [facility] [address] [place] [address] Dr. Josh Jacinto Eosinophils/100 WBC (Bld) 0.4 % Critically low 0.9-7.0 [facility] Comment on above: Performed By: #### H CVPCRR #### [facility] [address] [place] [address] Dr. Josh Jacinto Erythrocyte distribution width (RBC) [Ratio] 12.7 % Normal 11.0-15.0 [facility] Comment on above: Performed By: #### H CVPCRR #### [facility] [address] [place] [address] Dr. Josh Jacinto Hematocrit (Bld) [Volume fraction] 39.0 % Normal 36.0-48.0 [facility] Comment on above: Performed By: #### H CVPCRR #### [facility] [address] [place] [address] Dr. Josh Jacinto Hemoglobin (Bld) [Mass/Vol] 13.1 g/dL Normal 12.0-16.0 [facility] Comment on above: Performed By: #### H CVPCRR #### [facility] [address] [place] [address] Dr. Josh Jacinto IG # 0.03 10e3/ul Normal 0.00-0.03 [facility] Comment on above: Performed By: #### H CVPCRR #### [facility] [address] [place] [address] Dr. Josh Jacinto IG % 0.3 % Normal 0.0-0.5 [facility] Comment on above: Performed By: #### H CVPCRR #### [facility] [address] [place] [address] Dr. Josh Jacinto LYMPH # 2.0 103/ul Normal 1.2-3.8 [facility] Comment on above: Performed By: #### H CVPCRR #### [facility] [address] [place] [address] Dr. Josh Jacinto Lymphocytes/100 WBC (Bld) 18.4 % Critically low 20.5-60.0 [facility] Comment on above: Performed By: #### H CVPCRR #### [facility] [address] [place] [address] Dr. Josh Jacinto MANUAL DIFF REQ NO Normal [facility] Comment on above: Performed By: #### H CVPCRR #### [facility] [address] [place] [address] Dr. Josh Jacinto MCH (RBC) [Entitic mass] 29.0 pg Normal 26.7-34.0 [facility] Comment on above: Performed By: #### H CVPCRR #### [facility] [address] [place] [address] Dr. Josh Jacinto MCHC (RBC) [Mass/Vol] 33.6 g/dL Normal 29.9-35.2 [facility] Comment on above: Performed By: #### H CVPCRR #### [facility] [address] [place] [address] Dr. Josh Jacinto MCV (RBC) [Entitic vol] 86.5 fL Normal 81.0-99.0 [facility] Comment on above: Performed By: #### H CVPCRR #### [facility] [address] [place] [address] Dr. Josh Jacinto MONO # 0.8 103/ul Normal 0.3-0.8 [facility] Comment on above: Performed By: #### H CVPCRR #### [facility] [address] [place] [address] Dr. Josh Jacinto Monocytes/100 WBC (Bld) 7.1 % Normal 1.7-12.0 [facility] Comment on above: Performed By: #### H CVPCRR #### [facility] [address] [place] [address] Dr. Josh Jacinto NEUT # 8.1 103/ul Critically high 1.4-6.5 [facility] Comment on above: Performed By: #### H CVPCRR #### [facility] [address] [place] [address] Dr. Josh Jacinto Neutrophils/100 WBC (Bld) 73.5 % Normal 43.0-75.0 [facility] Comment on above: Performed By: #### H CVPCRR #### [facility] [address] [place] [address] Dr. Josh Jacinto Platelet mean volume (Bld) [Entitic vol] 10.4 fL Normal 9.5-13.5 [facility] Comment on above: Performed By: #### H CVPCRR #### [facility] [address] [place] [address] Dr. Josh Jacinto PLT 329 103/ul Normal 150-450 [facility] Comment on above: Performed By: #### H CVPCRR #### [facility] [address] [place] [address] Dr. Josh Jacinto RBC 4.51 106/ul Normal 4.20-5.40 [facility] Comment on above: Performed By: #### H CVPCRR #### [facility] [address] [place] [address] Dr. Josh Jacinto WBC 11.0 103/ul Normal 4.0-11.0 [facility] Comment on above: Performed By: #### H CVPCRR #### [facility] [address] [place] [address] Dr. Josh Jacinto CULTURE URINEon 10-09-2022 CULTURE URINE Culture Observations: NO GROWTH. Normal [facility] Comment on above: Performed By: #### H CGSUB #### [facility] [address] [place] [address] Dr. Josh Jacinto ER URINE PROFILEon Bilirubin Ql (U) Negative Normal NEGATIVE [facility] Comment on above: Performed By: #### H CVPCRR #### [facility] [address] [place] [address] Dr. Josh Jacinto Clarity (U) CLEAR Normal CLEAR [facility] Comment on above: Performed By: #### H CVPCRR #### [facility] [address] [place] [address] Dr. Josh Jacinto Color (U) LT. YELLOW Normal YELLOW [facility] Comment on above: Performed By: #### H CVPCRR #### [facility] [address] [place] [address] Dr. Josh GALLEGOS A micrscopic examination will be performed if indicated. Normal [facility] Comment on above: Performed By: #### H CVPCRR #### [facility] [address] [place] [address] Dr. Josh Jacinto Glucose Ql (U) Negative Normal NEGATIVE [facility] Comment on above: Performed By: #### H CVPCRR #### [facility] [address] [place] [address] Dr. Josh Jacinto Hemoglobin Ql (U) TRACE-LYSED Abnormal NEGATIVE [facility] Comment on above: Performed By: #### H CVPCRR #### [facility] [address] [place] [address] Dr. Josh Jacinto Ketones Ql (U) Negative Normal NEGATIVE [facility] Comment on above: Performed By: #### H CVPCRR #### [facility] [address] [place] [address] Dr. Josh Jacinto LEUKOCYTES SMALL Abnormal NEGATIVE [facility] Comment on above: Performed By: #### H CVPCRR #### [facility] [address] [place] [address] Dr. Josh Jacinto Nitrite Ql (U) Negative Normal NEGATIVE [facility] Comment on above: Performed By: #### H CVPCRR #### [facility] [address] [place] [address] Dr. Josh Jacinto pH (U) 6.0 [pH] Normal 5-9 [facility] Comment on above: Performed By: #### H CVPCRR #### [facility] [address] [place] [address] Dr. Josh Jacinto SPEC GRAVITY 1.015 Normal 1.005-<=1.025 [facility] Comment on above: Performed By: #### H CVPCRR #### [facility] [address] [place] [address] Dr. Josh Jacinto UA PROTEIN Negative Normal NEGATIVE/ TRACE [facility] Comment on above: Performed By: #### H CVPCRR #### [facility] [address] [place] [address] Dr. Josh Jacinto UR MICRO IND INDICATED Normal [facility] Comment on above: Performed By: #### H CVPCRR #### [facility] [address] [place] [address] Dr. Josh Jacinto Urobilinogen Qn (U) 0.2 {Pio'U}/dL Normal 0.2 - 1. 0 [facility] Comment on above: Performed By: #### H CVPCRR #### [facility] [address] [place] [address] Dr. Josh Jacinto LIPASEon 10-09-2022 Lipase [Catalytic activity/Vol] 128.0 U/L Normal 73.0-393.0 [facility] Comment on above: Performed By: #### C MP, LIPA, HSTROPN #### [facility] [address] [place] [address] Dr. Josh Jacinto MONOon 10-09-2022 Monocytes (Bld) [#/Vol] Negative Normal NEGATIVE [facility] Comment on above: Performed By: #### B OX #### [facility] [address] [place] [address] Dr. Josh Jacinto PREG HCG QUALon 10-09-2022 , QUAL Positive Abnormal NEGATIVE [facility] Comment on above: Performed By: #### B OX #### [facility] [address] [place] [address] Dr. Josh Jacinto PROF 14(COMP METB)on 022 Albumin [Mass/Vol] 3.6 g/dL Normal 3.4-5.0 [facility] Comment on above: Performed By: #### C MP, LIPA, HSTROPN #### [facility] [address] [place] [address] Dr. Josh Jacinto Albumin/Globulin [Mass ratio] 0.9 {ratio} Normal [facility] Comment on above: Performed By: #### C MP, LIPA, HSTROPN #### [facility] [address] [place] [address] Dr. Josh Jacinto ALP [Catalytic activity/Vol] 94 U/L Normal 46-116 [facility] Comment on above: Performed By: #### C MP, LIPA, HSTROPN #### [facility] [address] [place] [address] Dr. Josh Jacinto ALT [Catalytic activity/Vol] 22 U/L Normal 14-59 [facility] Comment on above: Performed By: #### C MP, LIPA, HSTROPN #### [facility] [address] [place] [address] Dr. Josh Jacinto Anion gap [Moles/Vol] 10.9 mmol/L Normal [facility] Comment on above: Performed By: #### C MP, LIPA, HSTROPN #### [facility] [address] [place] [address] Dr. Josh Jacinto AST [Catalytic activity/Vol] 13 U/L Critically low 15-37 [facility] Comment on above: Performed By: #### C MP, LIPA, HSTROPN #### [facility] [address] [address] [address] Josh Jacinto Bilirubin [Mass/Vol] 0.1 mg/dL Critically low 0.2-1.0 [facility] Comment on above: Performed By: #### C MP, LIPA, HSTROPN #### [facility] [address] [address] [address] Josh Jacinto Calcium [Mass/Vol] 9.0 mg/dL Normal 8.5-10.1 [facility] Comment on above: Performed By: #### C MP, LIPA, HSTROPN #### [facility] [address] [place] [address] Dr. Josh Jacinto Chloride [Moles/Vol] 105 mmol/L Normal 98-107 [facility] Comment on above: Performed By: #### C MP, LIPA, HSTROPN #### [facility] [address] [address] [address] Josh Jacinto CO2 [Moles/Vol] 23.5 mmol/L Normal 21.0-32.0 [facility] Comment on above: Performed By: #### C MP, LIPA, HSTROPN #### [facility] [address] [place] [address] Dr. Josh Jacinto Creatinine [Mass/Vol] 0.68 mg/dL Normal 0.55-1.02 [facility] Comment on above: Performed By: #### C MP, LIPA, HSTROPN #### [facility] [address] [address] [address] Josh Jacinto EGFR-AF MALIAN >60 Normal >=60 [facility] Comment on above: Performed By: #### C MP, LIPA, HSTROPN #### [facility] [address] [address] [address] Josh Jacinto EGFR-NON AF MALIAN >60 Normal >=60 [facility] Comment on above: Performed By: #### C MP, LIPA, HSTROPN #### [facility] [address] [address] [address] Josh Jacinto Globulin (S) [Mass/Vol] 4.1 g/dL Normal [facility] Comment on above: Performed By: #### C MP, LIPA, HSTROPN #### [facility] [address] [address] [address] Josh Jacinto Glucose [Mass/Vol] 98 mg/dL Normal 74-106 [facility] Comment on above: Performed By: #### C MP, LIPA, HSTROPN #### [facility] [address] [place] [address] Dr. Josh Jacinto Potassium [Moles/Vol] 3.4 mmol/L Critically low 3.5-5.1 [facility] Comment on above: Performed By: #### C MP, LIPA, HSTROPN #### [facility] [address] [place] [address] Dr. Josh Jacinto Protein [Mass/Vol] 7.7 g/dL Normal 6.4-8.2 [facility] Comment on above: Performed By: #### C MP, LIPA, HSTROPN #### [facility] [address] [place] [address] Dr. Josh Jacinto Sodium [Moles/Vol] 136 mmol/L Normal 136-145 [facility] Comment on above: Performed By: #### C MP, LIPA, HSTROPN #### [facility] [address] [place] [address] Dr. Josh Jacinto Urea nitrogen [Mass/Vol] 14.0 mg/dL Normal 7.0-18.0 [facility] Comment on above: Performed By: #### C MP, LIPA, HSTROPN #### [facility] [address] [place] [address] Dr. Josh Jacinto Urea nitrogen/Creatinine [Mass ratio] 20.6 mg/mg Normal [facility] Comment on above: Performed By: #### C MP, LIPA, HSTROPN #### [facility] [address] [place] [address] Dr. Josh Jacinto TROPONIN, HIGH SENSITIVITYon 10-09-2022 HSTROP <4.0 Normal 4.0-51.3 [facility] Comment on above: Result Comment: CUT- OFF POINTS HAVE BEEN ESTABLISHED BASED ON THE FOURTH UNIVERSAL DEFINITIONS OF MYOCARDIAL INFARCTION. THE UPPER REFERENCE LIMIT (URL) OF TROPONIN, DEFINED THE 99TH PERCENTILE OF cTnI DISTRIBUTION IN A REFERENCE POPULATION, HAS BEEN CONFIRMED THE DECISION THRESHOLD FOR IN DIAGNOSIS. Performed By: #### C MP, LIPA, HSTROPN #### [facility] [address] [place] [address] Dr. Josh Jacinto URINE MICROSCOPIC ONLYon BACTERIA TRACE Abnormal NONE SEEN The [facility] Comment on above: Performed By: #### H CVPCRR #### [facility] [address] [place] [address] Dr. Josh Jcainto Bacteria identified Cx Nom (U) INDICATED Normal [facility] Comment on above: Performed By: #### H CVPCRR #### [facility] [address] [place] [address] Dr. Josh Jacinto CAST NONE SEEN Normal NONE SEEN [facility] Comment on above: Performed By: #### H CVPCRR #### [facility] [address] [place] [address] Dr. Josh Jacinto Crystals LM Nom (Urine sed) NONE SEEN Normal NONE SEEN [facility] Comment on above: Performed By: #### H CVPCRR #### [facility] [address] [place] [address] Dr. Josh Jacinto Epithelial cells LM Ql (Urine sed) MODERATE Abnormal NONE SEEN /RARE [facility] Comment on above: Performed By: #### H CVPCRR #### [facility] [address] [place] [address] Dr. Josh Jacinto MUCOUS NONE SEEN Normal NONE SEEN [facility] Comment on above: Performed By: #### H CVPCRR #### [facility] [address] [place] [address] Dr. Josh Jacinto RBC NONE SEEN Abnormal 0-2 [facility] Comment on above: Performed By: #### H CVPCRR #### [facility] [address] [address] [address] Josh Jacinto WBC 2-5 Abnormal NONE SEEN [facility] Comment on above: Performed By: #### H CVPCRR #### [facility] [address] [place] [address] Dr. Josh Jacinto ER URINE PROFILEon 2 Bilirubin Ql (U) Negative Normal NEGATIVE [facility] Comment on above: Performed By: #### P REGU, ERUR #### [facility] [address] [place] [address] Dr. Josh Jacinto Clarity (U) CLEAR Normal CLEAR [facility] Comment on above: Performed By: #### P REGU, ERUR #### [facility] [address] [place] [address] Dr. Josh Jacinto Color (U) LT. YELLOW Normal YELLOW [facility] Comment on above: Performed By: #### P REGU, ERUR #### [facility] [address] [place] [address] Dr. Josh Jacinto ERUAHD A micrscopic examination will be performed if indicated. Normal [facility] Comment on above: Performed By: #### P REGU, ERUR #### [facility] [address] [place] [address] Dr. Josh Jacinto Glucose Ql (U) Negative Normal NEGATIVE [facility] Comment on above: Performed By: #### P REGU, ERUR #### [facility] [address] [place] [address] Dr. Josh Jacinto Hemoglobin Ql (U) Negative Normal NEGATIVE [facility] Comment on above: Performed By: #### P REGU, ERUR #### [facility] [address] [place] [address] Dr. Josh Jacinto Ketones Ql (U) Negative Normal NEGATIVE [facility] Comment on above: Performed By: #### P REGU, ERUR #### [facility] [address] [place] [address] Dr. Josh Jacinto LEUKOCYTES Negative Normal NEGATIVE [facility] Comment on above: Performed By: #### P REGU, ERUR #### [facility] [address] [address] [address] Josh Jacinto Nitrite Ql (U) Negative Normal NEGATIVE [facility] Comment on above: Performed By: #### P REGU, ERUR #### [facility] [address] [address] [address] Josh Jacinto pH (U) 6.0 [pH] Normal 5-9 [facility] Comment on above: Performed By: #### P REGU, ERUR #### [facility] [address] [address] [address] Josh Jacinto SPEC GRAVITY 1.010 Normal 1.005-<=1.025 [facility] Comment on above: Performed By: #### P REGU, ERUR #### [facility] [address] [place] [address] Dr. Josh Jacinto UA PROTEIN Negative Normal NEGATIVE/ TRACE [facility] Comment on above: Performed By: #### P REGU, ERUR #### [facility] [address] [address] [address] Josh Jacinto UR MICRO IND NOT INDICATED Normal [facility] Comment on above: Performed By: #### P REGU, ERUR #### [facility] [address] [place] [address] Dr. Josh Jacinto Urobilinogen Qn (U) 0.2 {Pio'U}/dL Normal 0.2 - 1. 0 [facility] Comment on above: Performed By: #### P REGU, ERUR #### [facility] [address] [address] [address] Josh Jacinto URon 09-14-2022 , QUAL Negative Normal NEGATIVE [facility] Comment on above: Performed By: #### P REGU, ERUR #### [facility] [address] [place] [address] Dr. Josh Jacinto XR ABD FLAT UP_PA [...] by: JANICE KAUFMAN Date: 2022-09-14 02:39 Normal [facility] PAP ACOG PANEL 2: 21 to 28on 07-10-2022 . . Normal [facility] Comment on above: Performed By: #### H CGSUB #### [facility] [address] [address] [address] Josh Jacinto Age Gdln ACOG Testing 21-29 Normal [facility] Comment on above: Performed By: #### H CGSUB #### [facility] [address] [address] [address] Josh Jacinto DIAGNOSIS: Comment Normal [facility] Comment on above: Result Comment: NEGA TIVE FOR INTRAEPITHELIAL LESION OR MALIGNANCY. Performed By: #### H CGSUB #### [facility] [address] [address] [address] Josh Jacinto Methodology: Comment Normal [facility] Comment on above: Result Comment: This liquid based ThinPrep(R) pap test was screened with the use of an image guided system. Performed By: #### H CGSUB #### [facility] [address] [address] [address] Josh Jacinto Note: Comment Normal [facility] Comment on above: Result Comment: The Pap smear is a screening test designed to aid in the detection of premalignant and malignant conditions of the uterine cervix. It is not a diagnostic procedure and should not be used as the sole means of detecting cervical cancer. Both false-positive and false-negative reports do occur. . Performed By: #### H CGSUB #### [facility] [address] [place] [address] Dr. Josh Jacinto Performed by: Comment Normal [facility] Comment on above: Result Comment: Aurora Salazar, Loom Cleaner (ASCP) Performed By: #### H CGSUB #### [facility] [address] [place] [address] Dr. Josh Jacinto Reflex Criteria: Comment Normal [facility] Comment on above: Result Comment: The HPV DNA reflex criteria were not met with this specimen result therefore, no HPV testing was performed. . Performed By: #### H CGSUB #### [facility] [address] [place] [address] Dr. Josh Jacinto Specimen adequacy: Comment Normal [facility] Comment on above: Result Comment: Sati sfactory for evaluation. Endocervical and/or squamous metaplastic cells (endocervical component) are present. Performed By: #### H CGSUB #### [facility] [address] [place] [address] Dr. Josh Jacinto HCG-BETA SUBUNIT QUANTon hCG,Beta Subunit,Qnt,Serum <1 [facility] Comment on above: Result Comment: Fema le (Non-) 0 - 5 (Postmenopausal) 0 - 8 . Female () Weeks of Gestation 3 6 - 71 4 10 - 750 5 217 - 7138 6 158 - 77363 7 [phone] 8 [phone] -[phone] 9 [phone] -[phone] 10 62221 -443225 12 94304 -169336 14 37839 - 19390 15 10418 - 01225 16 9496 - 48114 17 2741 - 32201 18 2180 - 00493 Liana ECLIA methodology Performed By: #### H CGSUB #### [facility] [address] [place] [address] Dr. Josh Jacinto US PELVIS AND TRANSVAGon [...] by: AMNA VALLADARES Date: 2022-07-05 16:12 Normal [facility] Cult,Urineon 05-19-2021 Cult,Urine Specimen Description .CLEAN CATCH URINE Special Requests NOT REPORTED Culture NO SIGNIFICANT GROWTH Report Status FINAL 05/19/2021 Normal [facility] Comment on above: Performed By: #### S WC #### [employer]) [facility] [place] [address] [employer] Production: Collin De La Fuente MD Microscopic UrinalysisOrdere d By: Richar Obrien on 05-18-2021 - [employer] Work Phone: Amorphous, UA NOT REPORTED None [employer] [facility] Work Phone: Bacteria, UA 2+ Abnormal None [facility] Work Phone: Casts UA NOT REPORTED /LPF [facility] Work Phone: Crystals, UA NOT REPORTED None /HPF [employer] [facility] Work Phone: Epithelial Cells UA 5 TO 10 [employer] Work Phone: Interpretation and review of laboratory results Abnormal [employer] Work Phone: Mucus, UA 1+ Abnormal None [employer] Work Phone: Other Observations UA NOT REPORTED NOT REQ. M [facility] [employer] Work Phone: RBC, UA None [employer] Work Phone: Renal Epithelial, UA NOT REPORTED 0 /HPF [facility] Work Phone: Trichomonas, UA NOT REPORTED None [facility] Work Phone: WBC, UA 10 TO 20 [facility] Work Phone: Yeast, UA NOT REPORTED None [facility] Work Phone: [facility] Work Phone: UrinalysisOrdered By: Richar Obrien on 05-18-2021 Bilirubin Urine Negative NEGATIVE [facility] Work Phone: Color, UA YELLOW YELLOW [facility] Work Phone: Glucose, Ur Negative NEGATIVE [facility] Work Phone: Interpretation and review of laboratory results Abnormal [facility] Work Phone: Ketones Ql (U) Negative NEGATIVE [facility] Work Phone: Leukocyte esterase Test strip Ql (U) SMALL Abnormal NEGATIVE [facility] Work Phone: Nitrite, Urine Negative NEGATIVE [facility] Work Phone: pH, UA 6.0 [facility] Work Phone: Protein, UA Negative NEGATIVE [facility] Work Phone: Specific [place], UA >1.030 High [facility] Work Phone: Turbidity UA SLIGHTLY CLOUDY Abnormal CLEAR [facility] Work Phone: Urinalysis Comments NOT REPORTED [facility] Work Phone: Urine Hgb Negative NEGATIVE [facility] Work Phone: Urobilinogen, Urine Normal Normal [facility] Work Phone: [facility] Work Phone: Urinalysis, Routineon 2020 Bilirubin, SemiQt,Ur Negative Normal NEG [facility] Comment on above: Performed By: #### S WCGP #### [address] [address] [employer]: Collin De La Fuente MD Blood, Urine Negative Normal NEG [facility] Comment on above: Performed By: #### S WCGP #### [address] [address] [employer] Production: Collin De La Fuente MD Clarity (U) SLIGHTLY CLOUDY Abnormal CLEAR [facility] Comment on above: Performed By: #### S WCGP #### [address] [address] [employer] Production: Collin De La Fuente MD Color (U) YELLOW Normal L [facility] Comment on above: Performed By: #### S WCGP #### [address] [address] [employer]: Collin De La Fuente MD Glucose Ql (U) Negative Normal NEG [facility] Comment on above: Performed By: #### S WCGP #### [address] [address] [employer]: Collin De La Fuente MD Ketones Ql (U) Negative Normal NEG [facility] Comment on above: Performed By: #### S WCGP #### [address] [address] [employer] Production: Collin De La Fuente MD Leukocyte esterase Test strip Ql (U) SMALL Abnormal NEG [facility] Comment on above: Performed By: #### S WCGP #### [address] [address] [employer]: Collin De La Fuente MD Nitrite,Ur Negative Normal [facility] Comment on above: Performed By: #### S WCGP #### [address] [address] [employer]: Collin De La Fuente MD PH,Ur 6.0 Normal 5.0-9.0 [facility] Comment on above: Performed By: #### S WCGP #### [address] [address] [employer]: Collin De La Fuente MD Protein Ql (U) Negative Normal NEG [facility] Comment on above: Performed By: #### S WCGP #### [address] [address] [employer]: Collin De La Fuente MD Spec. [place],Ur >1.030 High 1.010-1.020 [facility] Comment on above: Performed By: #### S WCGP #### [address] [address] [employer] Production: Collin De La Fuente MD Urobilinogen,Ur Normal Normal NORM [facility] Comment on above: Performed By: #### S WCGP #### [address] [address] [employer] Production: Collin De La Fuente MD Comment NOT REPORTED Normal [facility] Comment on above: Performed By: #### S WCGP #### [address] [address] [employer] Production: Collin De La Fuente MD Urinalysis,Microon 1 ----- Normal [facility] Comment on above: Performed By: #### S WCGP #### [address] [address] [employer] Production: Collin De La Fuente MD Bacteria 2+ Abnormal NONE [facility] Comment on above: Performed By: #### S WCGP #### [address] [address] [employer] Production: Collin De La Fuente MD Epithelial cells LM Ql (Urine sed) 5 TO 10 Normal 0-25 [facility] Comment on above: Performed By: #### S WCGP #### [address] [place] [address] [employer] Production: Collin De La Fuente MD Mucus Strands 1+ Abnormal NONE [facility] Comment on above: Performed By: #### S WCGP #### [facility] [address] [place] [address] [employer] Production: Collin De La Fuente MD Urine RBC's None Normal 0-2 [facility] Comment on above: Performed By: #### S WCGP #### [facility] [address] [place] [address] [employer] Production: Collin De La Fuente MD Urine WBC's 10 TO 20 Normal 0-5 [facility] Comment on above: Performed By: #### S WCGP #### [facility] [employer] [address] [place] [address] [employer] Production: Collin De La Fuente MD Amorphous sediment LM Ql (Urine sed) NOT REPORTED Normal NONE [facility] Comment on above: Performed By: #### S WCGP #### [facility] [employer] [address] [place] [address] [employer] Production: Collin De La Fuente MD Casts NOT REPORTED Normal [facility] Comment on above: Performed By: #### S WCGP #### [facility] [address] [place] [address] [employer] Production: Collin De La Fuente MD Crystals LM Nom (Urine sed) NOT REPORTED Normal NONE [facility] Comment on above: Performed By: #### S WCGP #### [facility] [address] [place] [address] [employer] Production: Collin De La Fuente MD Epithelial, Renal NOT REPORTED Normal 0 [facility] Comment on above: Performed By: #### S WCGP #### [facility] [address] [place] [address] [employer] Production: Collin De La Fuente MD Other Observations NOT REPORTED Normal NREQ [facility] Comment on above: Performed By: #### S WCGP #### [facility] [address] [place], [place] [id number] [employer] Production: Collin De La Fuente MD Trichomonas NOT REPORTED Normal NONE [facility] Comment on above: Performed By: #### S WCGP #### [facility] [address] [place], [place] [id number] [employer] Production: Collin De La Fuente MD Yeast NOT REPORTED Normal NONE [facility] Comment on above: Performed By: #### S WCGP #### [facility] [address] [place] [address] [employer] Production: Collin De La Fuente MD Basic Metab w/rfx MGon 04-14 (cont.) Normal [facility] Comment on above: Result Comment: Aver age GFR for 20-29 years old: 116 mL/min/1.73sq m Chronic Kidney Disease: <60 mL/min/1.73sq m Kidney failure: <15 mL/min/1.73sq m eGFR calculated using average adult body mass. Additional eGFR calculator available at: http://[email or web address].Z[employer] Imaging/multiple_crcl_2012.htm Performed By: #### B MPX, LIP, LIVP, CDP #### [facility] [address] [place] [address] [place] [address] [employer] Production: Amna Clements MD Anion gap [Moles/Vol] 12 mmol/L Normal - [facility] Comment on above: Performed By: #### B MPX, LIP, LIVP, CDP #### [facility] [address] [place] [address] [employer] Production: Amna Clements MD BUN/CRE Ratio 19 Normal - [facility] Comment on above: Performed By: #### B MPX, LIP, LIVP, CDP #### [facility] [address] [place] [address] [employer] Production: Amna Clements MD Calcium [Mass/Vol] 8.8 mg/dL Normal 8.6-10.4 [facility] Comment on above: Performed By: #### B MPX, LIP, LIVP, CDP #### [facility] [address] [place] [address] [employer] Production: Amna Clements MD Chloride [Moles/Vol] 101 mmol/L Normal 98-107 [facility] Comment on above: Performed By: #### B MPX, LIP, LIVP, CDP #### [facility] [address] [place], [place] [phone] [employer] Production: Amna Clements MD CO2 [Moles/Vol] 23 mmol/L Normal 20-31 [facility] Comment on above: Performed By: #### B MPX, LIP, LIVP, CDP #### [address] [place], [place] [phone] [employer] Production: Amna Clements MD Creatinine [Mass/Vol] 0.47 mg/dL Low 0.50-0.90 [facility] Comment on above: Performed By: #### B MPX, LIP, LIVP, CDP #### [address] [place], [place] [phone] [employer] Production: Amna Clements MD GFR, Amer >60 Normal >[address] [facility] Comment on above: Performed By: #### B MPX, LIP, LIVP, CDP #### [facility] [address] [place], [place] [address] [employer] Production: Amna Clements MD GFR,non Amer >60 Normal >60 [facility] Comment on above: Performed By: #### B MPX, LIP, LIVP, CDP #### [facility] [address] [place] [address] [employer] Production: Amna Clements MD Glucose [Mass/Vol] 106 mg/dL High 70-99 [facility] Comment on above: Performed By: #### B MPX, LIP, LIVP, CDP #### [facility] [address] [place] [address] [employer] Production: Amna Clements MD Potassium [Moles/Vol] 3.7 mmol/L Normal 3.7-5.3 [facility] Comment on above: Performed By: #### B MPX, LIP, LIVP, CDP #### [facility] [address] [place] [address] [employer] Production: Amna Clements MD Sodium [Moles/Vol] 136 mmol/L Normal 135-144 [facility] Comment on above: Performed By: #### B MPX, LIP, LIVP, CDP #### [address] [place] [address] [employer] Production: Amna Clements MD Staging: Normal [facility] Comment on above: Result Comment: Stag e 1: Some kidney damage normal GFR Stage 2: Mild kidney damage GFR 60-89 Stage 3: Moderate kidney damage GFR 30-59 Stage 4: Severe kidney damage GFR 15-29 Stage 5: Severe kidney damage GFR <15 ESRD - chronic treatment by dialysis or transplant Performed By: #### B MPX, LIP, LIVP, CDP #### [address] [place] [address] [employer] Production: Amna Clements MD Urea nitrogen [Mass/Vol] 9 mg/dL Normal -20 [facility] Comment on above: Performed By: #### B MPX, LIP, LIVP, CDP #### [address] [place] [address] [employer] Production: Amna Clements MD Basic Metabolic Panel w/ Ref ladi to MGOrdered By: Cisco Lopez on 04-14-2021 Anion gap [Moles/Vol] 12 mmol/L 9 - 17 mmol/L [facility] [employer] Phone: Calcium [Mass/Vol] 8.8 mg/dL 8.6 - 10. 4 mg/dL [facility] Work Phone: Chloride [Moles/Vol] 101 mmol/L 98 - 10 7 mmol/L [facility] [employer] Work Phone: CO2 [Moles/Vol] 23 mmol/L 20 - 31 mmol/L [facility] [email or web address] Phone: Creatinine [Mass/Vol] 0.47 mg/dL Low 0.50 - 0.90 mg/dL [facility] [employer] Work Phone: GFR >60 >60 mL/min [facility] [employer] Work Phone: GFR Non- >60 >60 mL/min [facility] [email or web address] Phone: Glucose [Mass/Vol] 106 mg/dL High 70 - 99 mg/dL [facility] [employer] Work Phone: Interpretation and review of laboratory results Abnormal [facility] [employer] Work Phone: Potassium [Moles/Vol] 3.7 mmol/L 3.7 - 5.3 mmol/L [facility] [employer] Work Phone: Sodium [Moles/Vol] 136 mmol/L 135 - 144 mmol/L [facility] [email or web address] Phone: Urea nitrogen (BldV) [Mass/Vol] 9 mg/dL 6 - 20 mg/dL [facility] [email or web address] Phone: Urea nitrogen/Creatinine (Bld) [Mass ratio] 19 [facility] [employer] Work Phone: CBC Auto DifferentialOrdered By: Cicso Lopez on 04-14-2021 [employer] # 0.00 [facility] Work Phone: Absolute Immature Granulocyte 0.00 [facility] [employer] Work Phone: Absolute Lymph # 2.00 [facility] Work Phone: [employer] [place] # 1.78 High [facility] [employer] Work Phone: Basophils (Bld) [#/Vol] 0.00 10*3/uL [email or web address] Phone: Basophils/100 WBC (Bld) 0 % 0 - 2 % M [employer] Phone: Differential Type NOT REPORTED [email or web address] Phone: Eosinophils/100 WBC (Bld) 0 % Low 1 - 4 % [email or web address] Phone: Hematocrit (Bld) [Volume fraction] 38.4 % 36.3 - 47.1 % [email or web address] Phone: Hemoglobin.gastrointest inal spec 1 Ql (Stl) 12.5 g/dL 11.9 - 15.1 g/dL [email or web address] Phone: Immature granulocytes/100 WBC (Bld) 0 % 0 [email or web address] Phone: Interpretation and review of laboratory results Abnormal [email or web address] Phone: Lymphocytes/100 WBC (Bld) 9 % Low 24 - 43 % [email or web address] Phone: MCH (RBC) [Entitic mass] 29.6 pg 25.2 - 33.5 pg [email or web address] Phone: MCHC (RBC) [Mass/Vol] 32.6 g/dL 28.4 - 34.8 g/dL [email or web address] Phone: MCV (RBC) [Entitic vol] 91.0 fL 82.6 - 102.9 fL [email or web address] Phone: Monocytes/100 WBC (Bld) 8 % 3 - 12 % M [employer] Phone: Morphology Hay (Bld) [Interp] Normal [email or web address] Phone: NRBC Automated 0.0 0.0 per 100 WBC [email or web address] Phone: Platelet distribution width (Bld) [Ratio] 13.4 % 11.8 - 14.4 % [email or web address] Phone: Platelet Estimate NOT REPORTED [email or web address] Phone: Platelet mean volume (Bld) [Entitic vol] 10.2 fL 8.1 - 13.5 fL [email or web address] Phone: Platelets (Bld) [#/Vol] 321 10*3/uL [email or web address] Phone: RBC (Bld) [#/Vol] 4.22 10*6/uL 3.95 - 5.1 1 m/uL [employer] Work Phone: RBC (Bld) [#/Vol] NOT REPORTED [email or web address] Phone: Segmented neutrophils/100 WBC (Bld) 83 % High 36 - 65 % [employer] Work Phone: Segs Absolute 18.42 [facility] [employer] Work Phone: WBC (Bld) [#/Vol] 22.2 10*3/uL High [employer] Work Phone: WBC (Bld) [#/Vol] NOT REPORTED [email or web address] Phone: [facility] Work Phone: CBC with Diffon 04-14-2021 Abs. Basophil 0.00 k/uL Normal 0.0-0.[address] [facility] Comment on above: Performed By: #### S WCGP #### [employer]) [facility] [place] [address] [employer] Production: Collin De La Fuente MD Abs.Imm.Granulocyte 0.00 k/uL Normal 0.00-0.30 [facility] Comment on above: Performed By: #### S WCGP #### [employer] (SAM) [address] [place] [address] [employer] Production: Collin De La Fuente MD Abs.Neutrophil (Seg) 18.42 k/uL High 1.50-8.10 [facility] Comment on above: Performed By: #### S WCGP #### [address] [address] [employer] Production: Collin De La Fuente MD Basophils/100 WBC (Bld) 0 % Normal 0-2 [facility] Comment on above: Performed By: #### S WCGP #### [address] [address] [employer] Production: Collin De La Fuente MD Eosinophils (Bld) [#/Vol] 0.00 10*3/uL Normal 0.00-0.44 [facility] Comment on above: Performed By: #### S WCGP #### [address] [address] [employer] Production: Collin De La Fuente MD Eosinophils/100 WBC (Bld) 0 % Low 1-4 [facility] Comment on above: Performed By: #### S WCGP #### [address] [address] [employer] Production: Collin De La Fuente MD Immature granulocytes/100 WBC (Bld) 0 % Normal 0 [facility] Comment on above: Performed By: #### S WCGP #### [address] [address] [employer] Production: Collin De La Fuente MD Lymphocytes (Bld) [#/Vol] 2.00 10*3/uL Normal 1.10-3.70 [facility] Comment on above: Performed By: #### S WCGP #### [address] [address] [employer] Production: Collin De La Fuente MD Lymphocytes/100 WBC (Bld) 9 % Low 24-43 [facility] Comment on above: Performed By: #### S WCGP #### [address] [address] [employer] Production: Collin De La Fuente MD Monocytes (Bld) [#/Vol] 1.78 10*3/uL High 0.10-1.20 [facility] Comment on above: Performed By: #### S WCGP #### [address] [address] [employer] Production: Collin De La Fuente MD Monocytes/100 WBC (Bld) 8 % Normal 3-12 M [facility] Comment on above: Performed By: #### S WCGP #### [address] [address] [employer] Production: Collin De La Fuente MD Morphology Hay (Bld) [Interp] Normal Normal [facility] Comment on above: Performed By: #### S WCGP #### [address] [address] [employer] Production: Collin De La Fuente MD Neutrophil (Seg) 83 % High 36-[address] [facility] Comment on above: Performed By: #### S WCGP #### [address] [address] [employer] Production: Collin De La Fuente MD Erythrocyte distribution width (RBC) [Ratio] 13.4 % Normal 11.8-14.4 [facility] Comment on above: Performed By: #### S WCGP #### [address] [address] [employer] Production: Collin De La Fuente MD Hematocrit (Bld) [Volume fraction] 38.4 % Normal 36.3-47.1 [facility] Comment on above: Performed By: #### S WCGP #### [address] [address] [employer] Production: Collin De La Fuente MD Hemoglobin (Bld) [Mass/Vol] 12.5 g/dL Normal 11.9-15.1 [facility] Comment on above: Performed By: #### S WCGP #### [address] [address] [employer] Production: Collin De La Fuente MD MCH (RBC) [Entitic mass] 29.6 pg Normal 25.2-33.5 [facility] Comment on above: Performed By: #### S WCGP #### [address] [address] [employer] Production: Collin De La Fuente MD MCHC (RBC) [Mass/Vol] 32.6 g/dL Normal 28.4-34.8 [facility] Comment on above: Performed By: #### S WCGP #### [address] [address] [employer] Production: Collin De La Fuente MD MCV (RBC) [Entitic vol] 91.0 fL Normal 82.6-102.9 [facility] Comment on above: Performed By: #### S WCGP #### [address] [address] [employer] Production: Collin De La Fuente MD NRBC Automated 0.0 per 100 WBC Normal 0.0 [facility] Comment on above: Performed By: #### S WCGP #### [address] [address] [employer] Production: Collin De La Fuente MD Platelet mean volume (Bld) [Entitic vol] 10.2 fL Normal 8.1-13.5 [facility] Comment on above: Performed By: #### S WCGP #### [address] [address] [employer] Production: Collin De La Fuente MD Platelets (Bld) [#/Vol] 321 10*3/uL Normal 138-453 [facility] Comment on above: Performed By: #### S WCGP #### [address] [address] [employer] Production: Collin De La Fuente MD RBC (Bld) [#/Vol] 4.22 10*6/uL Normal 3.95-5.11 [facility] Comment on above: Performed By: #### S WCGP #### [address] [place] [address] [employer] Production: Collin De La Fuente MD WBC (Bld) [#/Vol] 22.2 10*3/uL High 3.5-11.3 [facility] Comment on above: Performed By: #### S WCGP #### [facility] [address] [place] [address] [employer] Production: Collin De La Fuente MD Auto Diff Performed NOT REPORTED Normal [facility] Comment on above: Performed By: #### S WCGP #### [facility] [address] [place] [address] [employer] Production: Collin De La Fuente MD Platelet Estimate NOT REPORTED Normal [facility] Comment on above: Performed By: #### S WCGP #### [facility] [address] [place] [address] [employer] Production: Collin De La Fuente MD RBC morphology finding Nom (Bld) NOT REPORTED Normal [facility] Comment on above: Performed By: #### S WCGP #### [facility] [address] [place] [address] [employer] Production: Collin De La Fuente MD WBC Morphology NOT REPORTED Normal [facility] Comment on above: Performed By: #### S WCGP #### [facility] [address] [place] [address] [employer] Production: Collin De La Fuente MD Hepatic Function PanelOrdere d By: Cisco Lopez on 04-14-2021 Albumin [Mass/Vol] 3.7 g/dL 3.5 - 5.2 g/dL [email or web address] Phone: Albumin/Globulin [Mass ratio] 1.1 {ratio} [email or web address] Phone: ALP (Bld) [Catalytic activity/Vol] 68 U/L 35 - 104 [facility]/L [facility] Phone: ALT [Catalytic activity/Vol] 36 U/L High 5 - 33 U/L [email or web address] Phone: AST [Catalytic activity/Vol] 37 U/L High <32 [email or web address] Phone: Bilirubin [Mass/Vol] mg/dL Low 0.3 - 1 .2 mg/dL [email or web address] Phone: Bilirubin, Indirect CANNOT BE CALCULATED 0.00 - 1.00 mg/dL [email or web address] Phone: Bilirubin.indirect [Mass/Vol] mg/dL <0.31 mg/dL [email or web address] Phone: Free PSA/Total PSA [Mass fraction] 7.0 g/dL 6.4 - 8.3 g/dL [email or web address] Phone: Globulin NOT REPORTED 1.5 - 3.8 g/dL [email or web address] Phone: Interpretation and review of laboratory results Abnormal [email or web address] Phone: [email or web address] Phone: Laboratory - Chemistry and C hemistry - challengeOrdered By: Cisco Lopez on 04-14-2021 GFR/1.73 sq M.predicted MDRD (S/P/Bld) [Vol rate/Area] [email or web address] Phone: Comment on above: Average GFR for 20-2 9 years old: 116 mL/min/1.73sq m Chronic Kidney Disease: <60 mL/min/1.73sq m Kidney failure: <15 mL/min/1.73sq m eGFR calculated using average adult body mass. Additional eGFR calculator available at: http://[email or web address] Imaging/multiple_crcl_2012.htm Stage 1: Some kidney damage normal GFR Stage 2: Mild kidney damage GFR 60-89 Stage 3: Moderate kidney damage GFR 30-59 Stage 4: Severe kidney damage GFR 15-29 Stage 5: Severe kidney damage GFR <15 ESRD - chronic treatment by dialysis or transplant Lipaseon 04-14-2021 Lipase [Catalytic activity/Vol] 40 U/L Normal 13-60 [facility] Comment on above: Performed By: #### B MPX, LIP, LIVP, CDP #### [facility] [address] [place], [place] [phone] [employer] Production: Amna Clements MD LipaseOrdered By: Brandy on 04-14-2021 Lipase [Catalytic activity/Vol] 40 U/L 13 - 60 U/L [facility] Work Phone: Liver Profileon 04-14-2021 Bilirubin [Mass/Vol] mg/dL Low 0.3-1.2 [facility] Comment on above: Performed By: #### B MPX, LIP, LIVP, CDP #### [address] [place], [place] [phone] [employer] Production: Amna Clements MD Bilirubin, Indirect CANNOT BE CALCULATED Normal 0.00-1 .00 [facility] Comment on above: Performed By: #### B MPX, LIP, LIVP, CDP #### [facility] [address] [place] [address] [place] [place], [place] [phone] [employer] Production: Amna Clements MD Albumin [Mass/Vol] 3.7 g/dL Normal 3.5-5.2 [facility] Comment on above: Performed By: #### B MPX, LIP, LIVP, CDP #### [address] [place], [place] [phone] [employer] Production: Amna Clements MD Albumin/Glob Ratio 1.1 Normal 1.0-2.5 [facility] Comment on above: Performed By: #### B MPX, LIP, LIVP, CDP #### [facility] [address] [place], [place] [phone] [employer] Production: Amna Clements MD Alkaline Phos 68 U/L Normal 35-[address] [facility] Comment on above: Performed By: #### B MPX, LIP, LIVP, CDP #### [facility] [address] [place] [address] [employer] Operator Production: Amna Clements MD ALT [Catalytic activity/Vol] 36 U/L High 5-33 [facility] Comment on above: Performed By: #### B MPX, LIP, LIVP, CDP #### [facility] [address] [place] [address] [place] [address] [employer] Production: Amna Clements MD AST [Catalytic activity/Vol] 37 U/L High <32 [facility] Comment on above: Performed By: #### B MPX, LIP, LIVP, CDP #### [facility] [address] [place] [address] [place] [address] [employer] Production: Amna Clements MD Bilirubin.indirect [Mass/Vol] mg/dL Normal <0.31 [facility] Comment on above: Performed By: #### B MPX, LIP, LIVP, CDP #### [address] [place] [address] [employer] Production: Amna Clements MD Protein [Mass/Vol] 7.0 g/dL Normal 6.4-8.3 [facility] Comment on above: Performed By: #### B MPX, LIP, LIVP, CDP #### [address] [place] [address] [employer] Production: Amna Clements MD Globulin Fraction NOT REPORTED Normal 1.5-3.8 [facility] Comment on above: Performed By: #### B MPX, LIP, LIVP, CDP #### [facility] [address] [place] [address] [place] [address] [employer] Production: Amna Clements MD Microscopic UrinalysisOrdere d By: Cisco Lopez on 04-14-2021 - [facility] Work Phone: Amorphous, UA NOT REPORTED None [facility] Work Phone: Bacteria, UA TRACE Abnormal None [facility] Work Phone: Casts UA NOT REPORTED /LPF [facility] Work Phone: Crystals, UA NOT REPORTED None /HPF [facility] Work Phone: Epithelial Cells UA 10 TO 20 [facility] Work Phone: Interpretation and review of laboratory results Abnormal [facility] Work Phone: Mucus, UA TRACE Abnormal None [facility] [employer] Work Phone: Other Observations UA NOT REPORTED NOT REQ. M [facility] Work Phone: RBC, UA 0 TO 2 [facility] Work Phone: Renal Epithelial, UA NOT REPORTED 0 /HPF [facility] Work Phone: Trichomonas, UA NOT REPORTED None [facility] Work Phone: WBC, UA 0 TO 2 [facility] [employer] Work Phone: Yeast, UA NOT REPORTED None [facility] [employer] Work Phone: [facility] [employer] Work Phone: No Panel InformationOrdered By: Cisco Lopez on 04-14-2021 [facility] [employer] Work Phone: UA w/Reflex Cultureon 2020 Bilirubin, SemiQt,Ur Negative Normal NEG [facility] Comment on above: Performed By: #### S WCGP #### [employer] [address] [place] [phone] [employer]: Collin De La Fuente MD Blood, Urine Negative Normal NEG [facility] Comment on above: Performed By: #### S WCGP #### [employer]) [address] [place] [phone] [employer] Production: Collin De La Fuente MD Clarity (U) CLEAR Normal CLEAR [facility] Comment on above: Performed By: #### S WCGP #### [employer]) [address] [place] [phone] [employer] Production: Collin De La Fuente MD Color (U) YELLOW Normal YEL [facility] Comment on above: Performed By: #### S WCGP #### [address] [address] [employer] Production: oCllin De La Fuente MD Glucose Ql (U) Negative [facility]G [facility] Comment on above: Performed By: #### S WCGP #### [address] [address] [employer] Production: Collin De La Fuente MD Ketones Ql (U) TRACE Abnormal NEG [facility] Comment on above: Performed By: #### S WCGP #### [address] [address] [employer] Production: Collin De La Fuente MD Leukocyte esterase Test strip Ql (U) Negative Normal NEG [facility] Comment on above: Performed By: #### S WCGP #### [address] [address] [employer] Production: Collin De La Fuente MD Nitrite,Ur Negative Normal NEG [facility] Comment on above: Performed By: #### S WCGP #### [address] [address] [employer] Production: Collin De La Fuente MD PH,Ur 5.5 Normal 5.0-9.0 [facility] Comment on above: Performed By: #### S WCGP #### [address] [address] [employer] Production: Collin De La Fuente MD Protein Ql (U) TRACE Abnormal NEG [facility] Comment on above: Performed By: #### S WCGP #### [address] [address] [employer] Production: Collin De La Fuente MD Spec. [place],Ur >1.030 High 1.010-1.020 [facility] Comment on above: Performed By: #### S WCGP #### [facility] [address] [place] [address] [employer] Operator Production: Collin De La Fuente MD Urobilinogen,Ur Normal Normal NORM [facility] Comment on above: Performed By: #### S WCGP #### [facility] [address] [place] [address] [employer] Operator Production: Collin De La Fuente MD Comment NOT REPORTED Normal [facility] Comment on above: Performed By: #### S WCGP #### [facility] [address] [place] [address] [employer] Production: Collin De La Fuente MD Urinalysis Reflex to Culture Ordered By: Cisco Lopez on 04-14-2021 Bilirubin Urine Negative NEGATIVE [facility] Work Phone: Color, UA YELLOW YELLOW [facility] [employer] Work Phone: Glucose, Ur Negative NEGATIVE [facility] Work Phone: Interpretation and review of laboratory results Abnormal [facility] Work Phone: Ketones Ql (U) TRACE Abnormal NEGATIVE [facility] Work Phone: Leukocyte esterase Test strip Ql (U) Negative NEGATIVE [facility] Work Phone: Nitrite, Urine Negative NEGATIVE [facility] Work Phone: pH, UA 5.5 [facility] [employer] Work Phone: Protein, UA TRACE Abnormal NEGATIVE [facility] Work Phone: Specific [place], UA >1.030 High [facility] [employer] Work Phone: Turbidity UA CLEAR CLEAR [facility] [employer] Work Phone: Urinalysis Comments NOT REPORTED [facility] [employer] Work Phone: Urine Hgb Negative NEGATIVE [facility] Work Phone: Urobilinogen, Urine Normal Normal [facility] Work Phone: [facility] Work Phone: Urinalysis,Microon 1 ----- Normal [facility] Comment on above: Performed By: #### U MICAO, UA #### [facility] [address] [place], [place] [phone] [employer] Production: Amna Clements MD Bacteria TRACE Abnormal [facility] Comment on above: Performed By: #### U MICAO, UA #### [facility] [address] [place], [place] [phone] [employer] Production: Amna Clements MD Epithelial cells LM Ql (Urine sed) 10 TO 20 Normal 0-25 [facility] Comment on above: Performed By: #### U MICAO, UA #### [facility] [address] [place], [place] [phone] [employer] Production: Amna Clements MD Mucus Strands TRACE Abnormal [facility] Comment on above: Performed By: #### U MICAO, UA #### [facility] [address] [place], [place] [phone] [employer] Production: Amna Clements MD Urine RBC's 0 TO 2 Normal 0-2 [facility] Comment on above: Performed By: #### U MICAO, UA #### [facility] [address] [place] [address] [employer] Production: Amna Clements MD Urine WBC's 0 TO 2 Normal 0-5 [facility] Comment on above: Performed By: #### U MICAO, UA #### [facility] [address] [place] [address] [employer] Production: Amna Clements MD Amorphous sediment LM Ql (Urine sed) NOT REPORTED Normal [facility] Comment on above: Performed By: #### U MICAO, UA #### [facility] [address] [place], [place] [phone] [employer] Production: Amna Clements MD Casts NOT REPORTED Normal [facility] Comment on above: Performed By: #### U ROSAO, UA #### [facility] [address] [place], [place] [phone] [employer] Production: Amna Clements MD Crystals LM Nom (Urine sed) NOT REPORTED Normal [facility] Comment on above: Performed By: #### U ROSAO, UA #### [facility] [address] [place], [place] [phone] [employer] Production: Amna Clements MD Epithelial, Renal NOT REPORTED Normal 0 [facility] Comment on above: Performed By: #### U ROSAO, UA #### [facility] [address] [place], [place] [phone] [employer] Production: Amna Clements MD Other Observations NOT REPORTED Normal NREQ [facility] Comment on above: Performed By: #### U ROSAO, UA #### [facility] [address] [place], [place] [phone] [employer] Production: Amna Clements MD Trichomonas NOT REPORTED Normal [facility] Comment on above: Performed By: #### U ROSAO, UA #### [facility] [address] [place] [address] [employer] Production: Amna Clements MD Yeast NOT REPORTED Normal [facility] Comment on above: Performed By: #### U ROSAO, UA #### [facility] [address] [place], [place] [phone] [employer] Production: Amna Clements MD D-Dimer Teston 03-24-2021 D-Dimer Test 0.44 mg/L FEU Normal 0.00-0.59 [facility] Comment on above: Result Comment: When combined [...] with distal DVT. Performed By: #### S [facility] #### [employer]) [facility] [place] [address] [employer] Production: Collin De La Fuente MD D-Dimer, QuantitativeOrdered By: Lidia Núñez on 03-23-2021 D-Dimer, Quant 0.44 [employer] [facility] Work Phone: Comment on above: When [...] DVT. Chlamydia/GC,DNA Ampon 03-[address] [facility] Comment on above: Result Comment: CHLA MYDIA [...] target. Performed By: #### S WCGP #### [address] [address] [employer] Production: Collin De La Fuente MD Gonorrhea Probe Negative [facility] Comment on above: Result Comment: [...] nucleic acid target. Performed By: #### S WC #### [address] [phone] [employer] Production: Collin De La Fuente MD Cult,Urineon 03-11-2021 Cult,Urine Specimen Description .CLEAN CATCH URINE Special Requests NOT REPORTED Culture NO SIGNIFICANT GROWTH Report Status FINAL 03/11/2021 [facility] Comment on above: Performed By: #### U #### [address] [address] [employer] Production: Collin De La Fuente MD [facility] [address] [place] [address] [employer] Operator Production: Amna Clements MD HCG, ,Urineon 03-10 Beta HCG ( test) Ql (U) Positive Abnormal NEG [facility] Comment on above: Result Comment: If HCG results do not concur with clinical observations, additional testing to confirm result is recommended. This test is not labeled for use as a tumor marker. [facility] has confirmed the use of plasma for this test. This has not been cleared or approved by the U.[place]. Food and Drug Administration. The FDA has determined that such clearance is not necessary. Performed By: #### S WCGP #### [place] [place] [address] [employer] Production: Collin De La Fuente MD Trichomonas/Wet Prepon 03-10 Trichomonas/Wet Prep Specimen Descriptio n .VAGINA Special Requests NOT REPORTED Direct Exam NO TRICHOMONAS SEEN NO YEAST OBSERVED RARE CLUE CELLS SEEN Report Status FINAL 03/10/2021 Normal [facility] Comment on above: Performed By: #### W P #### [facility] [address] [place] [address] [employer] Production: Amna Clements MD UA w/Reflex Cultureon 2020 Acetoacetic Acid,Ur Negative Normal NEG [facility] Comment on above: Performed By: #### S WCGP #### [address] [address] [employer] Production: Collin De La Fuente MD Bilirubin, SemiQt,Ur Negative Normal NEG [facility] Comment on above: Performed By: #### S WCGP #### [address] [address] [employer] Production: Collin De La Fuente MD [facility] (U) [facility]LLOW [facility] Performed By: #### S WCGP #### [address] [address] [employer] Production: Collin De La Fuente MD Glucose Ql (U) Negative Normal NEG [facility] Comment on above: Performed By: #### S WCGP #### [address] [address] [employer] Production: Collin De La Fuente MD Hemoglobin, Ur Negative Normal NEG [facility] Comment on above: Performed By: #### S WCGP #### [address] [address] [employer] Production: Collin De La Fuente MD Leukocyte esterase Test strip Ql (U) LARGE Abnormal NEG [facility] Comment on above: Performed By: #### S WCGP #### [address] [address] [employer] Production: Collin De La Fuente MD Nitrite,Ur Negative Normal NEG [facility] Comment on above: Performed By: #### S WCGP #### [address] [address] [employer] Production: Collin De La Fuente MD PH,Ur 7.5 Normal 5.0-9.0 [facility] Comment on above: Performed By: #### S WCGP #### [address] [address] [employer] Production: Collin De La Fuente MD Protein Ql (U) Negative Normal NEG [facility] in Hospital Comment on above: Performed By: #### S WCGP #### [address] [address] [employer] Operator Production: Collin De La Fuente MD Spec. [place],Ur 1.020 Normal 1.010-1.020 [facility] Comment on above: Performed By: #### S WCGP #### [address] [address] [employer] Operator Production: Collin De La Fuente MD Turbidity CLOUDY Abnormal CLEAR [facility] Comment on above: Performed By: #### S WCGP #### [address] [address] [employer] Operator Production: Collin De La Fuente MD Urobilinogen,Ur Normal Normal NORM [facility] Comment on above: Performed By: #### S WCGP #### [facility] [employer] [facility] [place] [address] [employer] Operator Production: Collin De La Fuente MD Comment NOT REPORTED Normal [facility] Comment on above: Performed By: #### S WCGP #### [address] [address] [employer] Operator Production: Collin De La Fuente MD Urinalysis,Microon 1 ----- Normal [facility] Comment on above: Performed By: #### S WCGP #### [address] [address] [employer] Operator Production: Collin De La Fuente MD Amorphous sediment LM Ql (Urine sed) 1+ Abnormal NONE [facility] Comment on above: Performed By: #### S WCGP #### [address] [address] [employer] Production: Collin De La Fuente MD Bacteria 3+ Abnormal NONE [facility] Comment on above: Performed By: #### S WCGP #### [address] [address] [employer] Operator Production: Collin De La Fuente MD Epithelial cells LM Ql (Urine sed) 20 TO 50 Normal 0-25 [facility] Comment on above: Performed By: #### S WCGP #### [address] [address] [employer] Production: Collin De La Fuente MD Urine RBC's None Normal 0-2 [facility] Comment on above: Performed By: #### S WCGP #### [facility] [employer] [address] [place] [address] [employer] Operator Production: Collin De La Fuente MD Urine WBC's 10 TO 20 Normal 0-5 [facility] Comment on above: Performed By: #### S WCGP #### [address] [address] [employer] Operator Production: Collin De La Fuente MD Casts NOT REPORTED Normal [facility] Comment on above: Performed By: #### S WCGP #### [facility] [address] [place] [address] [employer] Operator Production: Collin De La Fuente MD Crystals LM Nom (Urine sed) NOT REPORTED Normal [facility] Comment on above: Performed By: #### S WCGP #### [facility] [address] [place] [address] [employer] Operator Production: Collin De La Fuente MD Epithelial, Renal NOT REPORTED Normal 0 [facility] Comment on above: Performed By: #### S WCGP #### [address] [address] Bar Machine Operator Production: Collin De La Fuente MD Mucus Strands NOT REPORTED Normal [facility] Comment on above: Performed By: #### S WCGP #### [address] [address] [employer] Machine Operator Production: Collin De La Fuente MD Other Observations NOT REPORTED Normal NREQ [facility] Comment on above: Performed By: #### S WCGP #### [address] [address] Bar Machine Operator Production: Collin De La Fuente MD Trichomonas NOT REPORTED Normal NONE [facility] Comment on above: Performed By: #### S WCGP #### [address] [place] [address] [employer] Operator Production: Collin De La Fuente MD Yeast NOT REPORTED Normal [facility] Comment on above: Performed By: #### S WCGP #### [address] [place] [address] [employer] Production: Collin De La Fuente MD Cult,Urineon 03-02-2021 Cult,Urine Specimen Description .CLEAN CATCH URINE Special Requests NOT REPORTED Culture NO SIGNIFICANT GROWTH Report Status FINAL 03/02/2021 Normal [facility] Comment on above: Performed By: #### U RC #### [facility] [employer] [address] [place] [address] [id number] [employer] Production: Collin De La Fuente MD [facility] [address] [address] Bar Machine Operator Production: Amna Clements MD C. Trachomatis, External Res ultOrdered By: Historical Provider on 03-01-2021 C. Trachomatis, External Result Negative [facility] [employer] Work Phone: Comment on above: William Joel RN/confirmed with Igor Kinsey RN N. Gonorrhoeae, External Res ultOrdered By: Historical Provider on 03-01-2021 N. Gonorrhoeae, External Result Negative [facility] [employer] Work Phone: Comment on above: William Joel RN/confirmed with Igor Kinsey RN No Panel InformationOrdered By: Historical Provider on 03-01-2021 [employer] Work Phone: Microscopic Urinalysison Amorphous, UA NOT REPORTED None [facility] Work Phone: Bacteria, UA NOT REPORTED None [facility] Work Phone: Casts UA NOT REPORTED /LPF [facility] [employer] Work Phone: Crystals, UA NOT REPORTED None /HPF [facility] Work Phone: Epithelial Cells UA 50 TO 100 [facility] Work Phone: Mucus, UA NOT REPORTED None [facility] Work Phone: Other Observations UA NOT REPORTED NOT REQ. [facility] Work Phone: RBC (U) [#/Vol] 0 TO 2 [facility] Work Phone: Renal Epithelial, UA NOT REPORTED 0 /HPF [facility] Work Phone: Trichomonas, UA NOT REPORTED None [facility] Work Phone: WBC, UA 20 TO 50 [facility] Work Phone: Yeast, UA NOT REPORTED None [facility] Work Phone: - [email or web address] Phone: Otheron 02-28-2021 Living intrauterine with an estimated gestational age of 13 weeks and 1 day by current ultrasound [email or web address] Phone: Dario, Mhpn Incoming Radiant Results From [employer] - 02/28/2021 1:48 PM EDT EXAMINATION: TRANSABDOMINAL [...] posteriorly to the right. Pole: Single pole [place] Rump Length: 6.8 cm Heart Rate: 160 [...] weeks and 1 day by current ultrasound [email or web address] Phone: EXAMINATION: TRANSABDOMINAL FIRST TRIMESTER OBSTETRIC PELVIC [...] posteriorly to the right. Pole: Single pole [place] Rump Length: 6.8 cm Heart Rate: 160 [...] days Estimated Due Date: 09/04/2021, 08/30/2021 respectively [email or web address] Phone: US DUP ABD PEL RETRO SCROT [...] posteriorly to the right. Pole: Single pole [place] Rump Length: 6.8 cm Heart Rate: 160 [...] Mariano Min MD 02/28/21 Final result Normal [facility] US OB LESS THAN 14 WEEKS [...] posteriorly to the right. Pole: Single pole [place] Rump Length: 6.8 cm Heart Rate: 160 [...] Mariano Min MD 02/28/21 Final result Normal [facility] Urinalysis, Routineon 2020 Acetoacetic Acid,Ur Negative Normal NEG [facility] Comment on above: Performed By: #### U MICAO, UA #### [facility] [address] [place] [address] [employer] Production: Amna Clements MD Bilirubin, SemiQt,Ur Negative Normal NEG [facility] Comment on above: Performed By: #### U MICAO, UA #### [facility] [address] [place] [address] [employer] Operator Production: Amna Clements MD Color (U) YELLOW Normal YEL [facility] Comment on above: Performed By: #### U MICAO, UA #### [facility] [address] [place] [address] Dr. [place], [place] [phone] [employer] Production: Amna Clements MD Glucose Ql (U) Negative Normal NEG [facility] in [facility] Comment on above: Performed By: #### U MICAO, UA #### [facility] [address] [place] [address] Dr. [place], [place] [phone] [employer] Production: Amna Clements MD Hemoglobin, Ur Negative Normal NEG [facility] Comment on above: Performed By: #### U MICAO, UA #### [address] [place], [place] [phone] [employer] Production: Amna Clements MD Leukocyte esterase Test strip Ql (U) MODERATE Abnormal NEG [facility] Comment on above: Performed By: #### U MICAO, UA #### [facility] [address] [place] [address] [place] [address] [employer] Production: Amna Clements MD Nitrite,Ur Negative Normal NEG [facility] Comment on above: Performed By: #### U MICAO, UA #### [facility] [address] [place] [address] Dr. [place], [place] [phone] [employer] Production: Amna Clements MD PH,Ur 7.5 Normal 5.0-9.0 [facility] Comment on above: Performed By: #### U MICAO, UA #### [facility] [address] [place] [address] Dr. [place], [place] [phone] [employer] Production: Amna Clements MD Protein Ql (U) Negative Normal NEG [facility] Comment on above: Performed By: #### U MICAO, UA #### [facility] [address] [place], [place] [phone] [employer] Production: Amna Clements MD Spec. [place],Ur 1.020 Normal 1.010-1.020 [facility] Comment on above: Performed By: #### U MICAO, UA #### [facility] [address] [place], [place] [phone] [employer] Operator Production: Amna Clements MD Turbidity CLEAR Normal CLEAR [facility] Comment on above: Performed By: #### U MICAO, UA #### [facility] [address] [place], [facility] [employer] Production: Amna Clements MD Urobilinogen,Ur Normal Normal NORM [facility] Comment on above: Performed By: #### U MICAO, UA #### [facility] [address] [place], [place] [phone] [employer] Production: Amna Clements MD Comment NOT REPORTED Normal [facility] Comment on above: Performed By: #### U MICAO, UA #### [facility] [address] [place], [facility] [employer] Production: Amna Clements MD Urinalysis, reflex to micros copicon 02-28-2021 Bilirubin Urine Negative NEGATIVE [facility] Work Phone: Color, UA YELLOW YELLOW [facility] Work Phone: Glucose, Ur Negative NEGATIVE [facility] Work Phone: Interpretation and review of laboratory results Abnormal [facility] Work Phone: Ketones Ql (U) Negative NEGATIVE [facility] Work Phone: Leukocyte esterase Test strip Ql (U) MODERATE Abnormal NEGATIVE [facility] Phone: Nitrite, Urine Negative NEGATIVE [facility] Work Phone: pH, UA 7.5 [facility] Work Phone: Protein (U) [Mass/Vol] Negative NEGATIVE [facility] Work Phone: Specific [place], UA 1.020 [facility] Work Phone: Turbidity UA CLEAR CLEAR [facility] [employer] Work Phone: Urinalysis Comments NOT REPORTED [facility] [employer] Work Phone: Urine Hgb Negative NEGATIVE [facility] [email or web address] Phone: Urobilinogen, Urine Normal Normal [facility] [email or web address] Phone: Urinalysis,Microon 1 ----- Normal [facility] Comment on above: Performed By: #### U MICAO, UA #### [facility] [address] [place] [address] [employer] Production: Amna Clements MD Epithelial cells LM Ql (Urine sed) 50 TO 100 Normal 0-25 [facility] Comment on above: Performed By: #### U ROSAO, UA #### [facility] [address] [place], [facility] [employer] Production: Amna Clements MD Urine RBC's 0 TO 2 Normal 0-2 [facility] Comment on above: Performed By: #### U ROSAO, UA #### [facility] [address] [place], [place] [phone] Bar [employer] Operator Production: Amna Clements MD Urine WBC's 20 TO 50 Normal 0-5 [facility] Comment on above: Performed By: #### U MICAO, UA #### [facility] [address] [place], [place] [phone] [employer] Production: Amna Clements MD Amorphous sediment LM Ql (Urine sed) NOT REPORTED Normal [facility] Comment on above: Performed By: #### U MICAO, UA #### [facility] [address] [address] Bar Machine Operator Production: Amna Clements MD Bacteria NOT REPORTED Normal [facility] Comment on above: Performed By: #### U MICAO, UA #### [facility] [address] [place] [address] [employer] Operator Production: Amna Clements MD Casts NOT REPORTED Normal [facility] Comment on above: Performed By: #### U MICAO, UA #### [facility] [address] [place] [address] [employer] Operator Production: Amna Clements MD Crystals LM Nom (Urine sed) NOT REPORTED Normal NONE [facility] Comment on above: Performed By: #### U MICAO, UA #### [facility] [address] [place] [address] Bar Machine Operator Production: Amna Clements MD Epithelial, Renal NOT REPORTED Normal 0 [facility] Comment on above: Performed By: #### U MICAO, UA #### [facility] [address] [place] [address] Bar Machine Operator Production: Amna Clements MD Mucus Strands NOT REPORTED Normal NONE [facility] Comment on above: Performed By: #### U MICAO, UA #### [facility] [address] [place] [address] [employer] Operator Production: Amna Clements MD Other Observations NOT REPORTED Normal NREQ [facility] Comment on above: Performed By: #### U MICAO, UA #### [facility] [address] [place] [address] [employer] Operator Production: Amna Clements MD Trichomonas NOT REPORTED Normal NONE [facility] Comment on above: Performed By: #### U MICAO, UA #### [facility] [address] [place] [address] [employer] Operator Production: Amna Clements MD Yeast NOT REPORTED Normal [facility] Comment on above: Performed By: #### U MICAO, UA #### [facility] [address] [place], [place] [phone] [employer] Production: Amna Clements MD ABO, External ResultOrdered By: Historical Provider on 02-17-2021 ABO, External Result AB [facility] [employer] Phone: Comment on above: William Joel RN/confirmed with Igor Kinsey RN HIV, External ResultOrdered By: Historical Provider on 02-17-2021 HIV, External Result Non-Reactive [employer] Phone: Comment on above: William Joel RN/confirmed with Igor Kinsey RN Hepatitis B, External Result Ordered By: Historical Provider on 02-17-2021 Hep B, External Result Negative [employer] Phone: Comment on above: William Joel RN/confirmed with Igor Kinsey RN Hepatitis C Antibody, Manager State al ResultOrdered By: Historical Provider on 02-17-2021 Hepatitis C Antibody, External Result Negative [email or web address] Phone: Comment on above: William Joel RN/confirmed with Igor Kinsey RN No Panel InformationOrdered By: Historical Provider on 02-17-2021 [email or web address] Phone: RPR, External LabOrdered By: Historical Provider on 02-17-2021 RPR, External Result Non-Reactive [employer] Phone: Comment on above: William Joel RN/confirmed with Igor Kinsey RN Rh Factor, External ResultOr dered By: Historical Provider on 02-17-2021 Rh Factor, External Result Positive [email or web address] Phone: Comment on above: William Joel RN/confirmed with Igor Kinsey RN Rubella Titer, External Resu ltOrdered By: Historical Provider on 02-17-2021 Rubella Titer, External Result immune [email or web address] Phone: Comment on above: William Joel RN/confirmed with Igor Kinsey RN Vital Signs Date Time Vital Sign Value Performing Clinician Facility 10-15-2024 15:16-0500 Body mass index (BMI) [Ratio] 31.93 kg/m2 Quynh WILDER Work Phone: [facility] 10-15-2024 15:16-0500 Body weight 76.66 kg Quynh WILDER Work Phone: [facility] 10-15-2024 15:16-0500 Diastolic blood pressure 72 mm[Hg] Quynh WILDER Work Phone: [facility] 10-15-2024 15:16-0500 Systolic blood pressure 120 mm[Hg] Quynh WILDER Work Phone: [facility] 06-16-2021 23:58-0400 Diastolic blood pressure 62 mm[Hg] Richar Obrien COLLET MAKER - CNM Work Phone: [employer] Work Phone: 06-16-2021 23:58-0400 Heart rate 91 /min Richar Obrien COLLET MAKER - CNM Work Phone: [employer] Work Phone: 06-16-2021 23:58-0400 Respiratory rate 16 /min Richar Obrien COLLET MAKER - CNM Work Phone: [employer] Work Phone: 06-16-2021 23:58-0400 Systolic blood pressure 107 mm[Hg] Richar Obrien COLLET MAKER - CNM Work Phone: [employer] Work Phone: 06-16-2021 20:33-0400 Body temperature 97.7 [degF] Richar Obrien COLLET MAKER - CNM Work Phone: [employer] Work Phone: 05-24-2021 23:40-0400 Body temperature 97.9 [degF] Rema Pool COLLET MAKER - CNM Work Phone: [employer] Work Phone: 05-24-2021 23:40-0400 Respiratory rate 20 /min Rema Pool COLLET MAKER - CNM Work Phone: [employer] Work Phone: 05-24-2021 23:32-0400 Diastolic blood pressure 70 mm[Hg] Rema Pool COLLET MAKER - CNM Work Phone: [employer] Work Phone: 05-24-2021 23:32-0400 Heart rate 109 /min Rema Tapia COLLET MAKER - CNM Work Phone: [employer] Work Phone: 05-24-2021 23:32-0400 Systolic blood pressure 120 mm[Hg] Rema Tapia COLLET MAKER - CNM Work Phone: [employer] Work Phone: 05-18-2021 08:59-0400 Diastolic blood pressure 55 mm[Hg] Richar Obrien COLLET MAKER - CNM Work Phone: [employer] Work Phone: 05-18-2021 08:59-0400 Heart rate 100 /min Richar Obrien APRN - CNM Work Phone: [employer] Work Phone: 05-18-2021 08:59-0400 Systolic blood pressure 102 mm[Hg] Richar Obrien APRN - CNM Work Phone: [employer] Work Phone: 05-18-2021 06:45-0400 Body height 154.9 cm Richar Obrien APRN - CNM Work Phone: [employer] Work Phone: 05-18-2021 06:45-0400 Body mass index (BMI) [Ratio] 29.29 kg/m2 Richar Obrien APRN - CNM Work Phone: [employer] Work Phone: 05-18-2021 06:45-0400 Body weight 70.31 kg Richar Obrien APRN - CNM Work Phone: [employer] Work Phone: 05-18-2021 06:41-0400 Body temperature 98.4 [degF] Richar Obrien APRN - CNM Work Phone: [employer] Work Phone: 05-18-2021 06:41-0400 Respiratory rate 20 /min Richar Obrien APRN - [facility] Work Phone: [employer] Work Phone: 04-14-2021 03:30-0400 Diastolic blood pressure 65 mm[Hg] Cisco Andes DO Work Phone: [employer] Work Phone: 04-14-2021 03:30-0400 SaO2% (BldA) [Mass fraction] 100 % Cisco Andes DO Work Phone: [employer] Work Phone: 04-14-2021 03:30-0400 Systolic blood pressure 107 mm[Hg] Cisco Andes DO Work Phone: [employer] Work Phone: 04-14-2021 01:57-0400 Heart rate 108 /min Cisco Andes DO Work Phone: [employer] Work Phone: 04-14-2021 01:35-0400 Respiratory rate 16 /min Cisco Andes DO Work Phone: [employer] Work Phone: 04-14-2021 01:33-0400 Body temperature 97.7 [degF] Cisco Andes DO Work Phone: [employer] Work Phone: 03-23-2021 21:13-0400 Body temperature 97.59 [degF] Lidia Núñez MD Work Phone: [employer] Work Phone: 03-23-2021 21:13-0400 Diastolic blood pressure 70 mm[Hg] Lidia Núñez MD Work Phone: [employer] Work Phone: 03-23-2021 21:13-0400 Heart rate 98 /min Lidia Núñez MD Work Phone: [employer] Work Phone: 03-23-2021 21:13-0400 Respiratory rate 16 /min Lidia Núñez MD Work Phone: [employer] Work Phone: 03-23-2021 21:13-0400 SaO2% (BldA) [Mass fraction] 98 % Lidia Núñez MD Work Phone: [employer] Work Phone: 03-23-2021 21:13-0400 Systolic blood pressure 119 mm[Hg] Lidia Núñez MD Work Phone: [email or web address] Phone: 02-28-2021 12:28-0400 Body Temperature 97.81 [degF] [email or web address] Phone: 02-28-2021 12:28-0400 BP Diastolic 72 mm[Hg] [employer] Phone: 02-28-2021 12:28-0400 BP Systolic 124 mm[Hg] [employer] Phone: 02-28-2021 12:28-0400 Pulse (Heart Rate) 97 /min [employer] Phone: 02-28-2021 12:28-0400 Pulse Oximetry 100 % [employer] Phone: 02-28-2021 12:28-0400 Respiratory Rate 15 /min [employer] Phone: Encounters Encounter Date Encounter Type Care Provider Facility Start: 10-15-2024 End: 10-15-2024 Office outpatient visit 15 minutes Quynh WILDER Work Phone: [facility] Comment on above: Second trimester pre gnancy; 25 weeks gestation of ; Diabetes mellitus screening Start: 10-15-2024 End: 10-15-2024 ambulatory QUYNH CHRISTINA Not Available Start: 10-15-2024 End: 10-15-2024 Bamboo flowsheet Quynh Roe PA Work Phone: [facility] Start: 10-15-2024 End: 10-15-2024 Bamboo flowsheet Quynh Christina PA Work Phone: [facility] Start: 10-15-2024 End: 10-15-2024 Clinisync Result Encounter Quynh WILDER Work Phone: [facility] External Department Unsolicited Start: 08-13-2024 End: 08-13-2024 ambulatory JAMILA VELEZ Not Available Start: 08-13-2024 End: 08-13-2024 Bamboo flowsheet Jamila Velez MD Work Phone: [facility] Start: 08-13-2024 End: 08-13-2024 Bamboo flowsheet Jamila Velez MD Work Phone: [facility] Start: 08-12-2024 End: 08-12-2024 Telephone encounter Jamila Velez MD Work Phone: [facility] Start: 07-21-2024 End: 07-21-2024 ambulatory CLYDE RIGO Not Available Start: 06-19-2024 End: 06-19-2024 ambulatory QUYNH CHRISTINA Not Available Start: 05-06-2024 End: 05-06-2024 ambulatory CLYDE RIGO Not Available Start: 03-20-2024 End: 03-20-2024 ambulatory CLYDE RIGO Not Available Start: 01-21-2024 End: 01-21-2024 ambulatory CLYDE RIGO Not Available Start: 01-15-2024 End: 01-15-2024 ambulatory JAMILA Chiquita ROSIE Not Available Start: 12-13-2023 End: 12-13-2023 ambulatory QUYNH CHRISTINA Not Available Start: 11-08-2023 End: 11-08-2023 ambulatory QUYNH CHRISTINA Not Available Start: 10-31-2023 End: 10-31-2023 ambulatory CLYDE RIGO Not Available Start: 10-24-2023 End: 10-24-2023 ambulatory CLYDE NELSON Not Available Start: 04-16-2023 End: 04-16-[address] NONE LISTED REQUEST Facility:[facility] Start: 04-16-2023 End: 04-17-[address] NONE LISTED REQUEST Facility:[facility] Start: 04-13-2023 End: 04-13-[address] KALPANA TAPIA . Facility:[facility] Start: 04-06-2023 End: 04-07-[address] CLYDE NELSON . Facility:[facility] Start: 01-10-[address] NONE LISTED REQUEST Facility:[facility] Start: 10-26-[address] NONE LISTED REQUEST Facility:[facility] Start: 10-13-2022 End: 10-13-[address] AMNA VALLADARES Facility:[facility] Start: 10-09-2022 End: 10-09-[address] DOCTOR BUCHANAN Facility:[facility] Start: 09-14-2022 End: 09-14-[address] MECHE HOLLOWAY . Facility:[facility] Start: 07-07-2022 End: 07-08-[address] ALLRED MISNic Facility:[facility] Start: 07-04-2022 End: 07-04-[address] DOCTOR BUCHANAN Facility:[facility] Start: 07-04-2022 End: 07-05-[address] DOCTOR BUCHANAN Facility:[facility] Start: 06-16-2021 End: 06-17-2021 [facility] Start: 06-16-2021 End: 06-17-2021 Subsequent hospital visit by physician Richar Gonzalez CNM Work Phone: [facility] Start: 05-25-2021 End: 05-25-2021 [facility]ulatory [facility] Start: 05-24-2021 End: 05-25-2021 Subsequent hospital visit by physician Rema Tapia APRN - [facility] Work Phone: [facility] Labor [facility] Delivery Start: 05-18-2021 End: 05-18-2021 ambulatory [facility] Start: 05-18-2021 End: 05-18-2021 Subsequent hospital visit by physician Richar Obrien APRN - [facility] Work Phone: [facility] Start: 04-14-2021 End: 04-14-2021 Emergency department patient visit [facility] Start: 04-14-2021 End: 04-14-2021 Emergency department patient visit [facility] Work Phone: [facility] ED Comment on above: Nausea and vomiting during (Primary Dx) Start: 03-23-2021 End: 03-24-2021 Emergency department patient visit LIDIA Muir [facility] Start: 03-23-2021 End: 03-23-2021 Emergency department patient visit Lidia Núñez MD Work Phone: [facility] ED Comment on above: Leg swelling (Primar y Dx) Start: 03-10-2021 End: 03-10-2021 Emergency department patient visit NANETTE ALCALA [facility] Start: 02-28-2021 End: 02-28-2021 Emergency department patient visit MECHE BLOOD [facility] Start: 02-28-2021 End: 02-28-2021 Emergency department patient visit Meche [place] Work Phone: [facility] ED Comment on above: Abdominal pain, unsp ecified abdominal location (Primary Dx); Urinary tract infection without hematuria, site unspecified; Intrauterine Procedures Date Procedure Procedure Detail Performing Clinician Start: 10-15-2024 ALL CBC WITH AUTO DIFF Quynh WILDER Work Phone: Start: 10-15-2024 Urnls dip stick/tabl et rgnt non-auto w/o micrscp Quynh WILDER Work Phone: Start: 06-13-2023 Microscopic observat ion [Identifier] in Cervix by Cyto stain Jamila Velez MD Work Phone: Start: 05-18-2021 Urinalysis microscop ic only Richar Obrien APRN - CNYinka Work Phone: Start: 05-18-2021 Urnls dip stick/tabl et rgnt auto w/o microscopy Richar Obrien APRN - CN Work Phone: Start: 04-14-2021 Assay of lipase DO Work Phone: Start: 04-14-2021 BASIC METABOLIC PANE L W/ REFLEX TO MG FOR LOW K [employer] And DO Work Phone: Start: 04-14-2021 Hepatic function panel DO Work Phone: Start: 04-14-2021 Urinalysis microscop ic only [employer] And DO Work Phone: Start: 04-14-2021 Urnls dip stick/tabl et rgnt auto w/o microscopy DO Work Phone: Start: 03-23-2021 Fibrin dgradj [...] Treatment Date Care Activity Detail Author Start: 06-13-2026 Screening for malign ant neoplasm of cervix [facility] Start: 11-05-2024 End: 11-05-2024 Patient encounter procedure 11/05/2024 2:30 PM EST Routine [facility] [address] [address] Clyde Nelson DO [address] Iris Iglesias, [facility] Start: 10-15-2024 End: 10-15-2024 Patient encounter procedure 10/15/2024 2:30 PM EST Routine [facility] [address] [address] Quynh Roe, MEÑO [address] [place], [facility] Arrived [facility] Comment on above: Arrived Start: 10-15-2024 End: 10-15-2025 CBC panel - Blood by Automated count CBC Lab Routine Diabetes mellitus screening Expected: 10/15/2024 (Approximate), Expires: 10/15/2025 [facility] Work Phone: Comment on above: Expected: 10/15/2024 (Approximate), Expires: 10/15/2025 Start: 10-15-2024 End: 10-15-2025 Measurement of glucose 1 hour after glucose challenge for glucose tolerance test Glucose tolerance, 1 hour Lab Routine Diabetes mellitus screening Expected: 10/15/2024 (Approximate), Expires: 10/15/2025 [facility] Healthcare Comment on above: Expected: 10/15/2024 (Approximate), Expires: 10/15/2025 Start: 09-04-2024 End: 09-04-2024 Professional / ancillary services management 09/04/2024 11:00 AM EDT Ancillary Procedure [facility] [address] [place] [address] [facility] Start: 07-27-2024 Influenza vaccination Influenza Vacc ine (#1) [facility] Start: 2024 Screening for malign ant neoplasm of cervix HPV/C[facility] Start: 05-16-2023 DTaP/Tdap/Td vaccine (2 - Td or Tdap) DTaP/Tdap/Td vaccine (2 - Td or Tdap) [facility] [email or web address] Phone: Start: 05-16-2023 DTaP/Tdap/Td vaccine (2 - Td) DTaP/Tdap/Td vaccine (2 - Td) [facility] [email or web address] Phone: Start: 07-27-2021 Influenza vaccination [facility] [email or web address] Phone: Start: 03-23-2021 End: 03-23-2022 VL DUP LOWER EXTREMITY VENOUS BILATERAL VL DUP LOWER EXTREMITY VENOUS BILATERAL Imaging Routine Leg swelling Expected: 03/23/2021, Expires: 03/23/2022 [facility] Comment on above: Expected: 03/23/2021 , Expires: 03/23/2022 Start: 2015 Screening for malign ant neoplasm of cervix [facility]ervical cancer [facility]: Start: 2010 COVID-19 Vaccine (1) COVID-19 Vaccin e (1) [facility] [email or web address] Phone: Start: 2009 HIV screening HIV screen [facility] Work Phone: Start: 2006 COVID-19 Vaccine (1) COVID-19 Vaccin e (1) [facility] [email or web address] Phone: Start: 1995 Varicella vaccine (1 of 2 - 2-dose childhood series) Varicella vaccine (1 of 2 - 2-dose childhood series) [facility] [email or web address] Phone: Start: 1994 Hepatitis C screening Hepatitis C sc reen [facility] [email or web address] Phone: End: 05-18-2021 Bacteria identified in Urine by Culture Urine culture Microbiology Routine One Time for 1 Occurrences starting 05/18/2021 until 05/18/2021 [email or web address] Phone: Comment on above: One Time for 1 Occur rences starting 05/18/2021 until 05/18/2021 End: 02-28-2021 CBC Auto Differential CBC Auto Differential Lab STAT One Time for 1 Occurrences starting 02/28/2021 until 02/28/2021 [email or web address] Phone: Comment on above: One Time for 1 Occur rences starting 02/28/2021 until 02/28/2021 End: 02-28-2021 Comprehensive Metabolic Panel w/ Reflex to MG Comprehensive Metabolic Panel w/ Reflex to MG Lab STAT One Time for 1 Occurrences starting 02/28/2021 until 02/28/2021 [email or web address] Phone: Comment on above: One Time for 1 Occur rences starting 02/28/2021 until 02/28/2021 End: 02-28-2021 Culture, Urine Culture, Urine Microbiology Routine One Time for 1 Occurrences starting 02/28/2021 until 02/28/2021 [email or web address] Phone: Comment on above: One Time for 1 Occur rences starting 02/28/2021 until 02/28/2021 Nonrebreather mask oxygen [email or web address] Phone: Comment on above: As directed - RT (MS N) until discontinued starting 05/18/2021 As directed - RT (MS N) until discontinued starting 05/24/2021 As directed - RT (MS N) until discontinued starting 06/16/2021 End: 05-18-2021 SVE SVE Point of Care Testing Routine One Time for 1 Occurrences starting 05/18/2021 until 05/18/2021 [email or web address] Phone: Comment on above: One Time for 1 Occur rences starting 05/18/2021 until 05/18/2021 End: 05-24-2021 SVE SVE Point of Care Testing Routine One Time for 1 Occurrences starting 05/24/2021 until 05/24/2021 [email or web address] Phone: Comment on above: One Time for 1 Occur rences starting 05/24/2021 until 05/24/2021 End: 06-16-2021 SVE SVE Point of Care Testing Routine One Time for 1 Occurrences starting 06/16/2021 until 06/16/2021 [email or web address] Phone: Comment on above: One Time for 1 Occur rences starting 06/16/2021 until 06/16/2021 Immunizations Immunization Date Immunization Notes Care Provider [facility] 09-03-2021 diphtheria, tetanus toxoids and pertussis vaccine Jamila Velez MD Work Phone: [facility] 05-16-2013 tetanus toxoid, redu harrison diphtheria toxoid, and acellular pertussis vaccine, adsorbed Jamila Velez MD Work Phone: [facility] 11-08-2012 influenza virus vacc ine, live, attenuated, for intranasal use Jamila Velez MD Work Phone: [facility] 11-08-2012 influenza virus vacc ine, unspecified formulation Jamila Velez MD Work Phone: [facility] Healthcare Payers Date Payer Category Payer Medicaid [employer] [place] [id number] 2021-Present [address] [place] [id number] 2021 Medicaid (Managed Care) [facility] MEDICAID [id number] 1994 Unknown [id number] 2.16.840.1.953150.3.579.2. 173 1994 Unknown [id number] 2.16.840.1.642270.3.579.2. 173 1994 Unknown [id number] 2.16.840.1.213383.3.579.2. 173 1994 Unknown [id number] 2.16.840.1.276913.3.579.2. 173 1994 Unknown [id number] 2.16.840.1.602377.3.579.2. 173 1994 Unknown [id number] 2.16.840.1.904165.3.579.2. 173 1994 Unknown [id number] 2.16.840.1.445301.3.579.2. 173 1994 Unknown [id number] 2.16.840.1.293027.3.579.2. 593 1994 Unknown [id number] 2.16.840.1.422342.3.579.2. 593 1994 Unknown [id number] 2.16.840.1.525699.3.579.2. 593 1994 Unknown [id number] 2.16.840.1.707818.3.579.2. 593 1994 Unknown [id number] 2.16.840.1.616436.3.579.2. 593 1994 Unknown [id number] 2.16.840.1.707585.3.579.2. 593 1994 Unknown [id number] 2.16.840.1.004184.3.579.2. 593 1994 Unknown [id number] 2.16.840.1.708193.3.579.2. 593 1994 Unknown [id number] 2.16.840.1.357865.3.579.2. 593 1994 Unknown [id number] 2.16.840.1.468687.3.579.2. 593 1994 Unknown [id number] 2.16.840.1.352264.3.579.2. 593 1994 Unknown [id number] 2.16.840.1.136862.3.579.2. 593 1994 Unknown [id number] 2.16.840.1.074309.3.579.2. 1259 1994 Unknown [id number] 2.16.840.1.231309.3.579.2. 125 1994 Unknown [id number] 2.16.840.1.890539.3.579.2. 1258 1994 Unknown [id number] 2.16.840.1.575063.3.579.2. 125 1994 Unknown [id number] 2.16.840.1.403747.3.579.2. 125 1994 Unknown [id number] 2.16.840.1.097715.3.579.2. 125 1994 Unknown [id number] 2.16.840.1.162187.3.579.2. 1258 1994 Unknown [id number] 2.16.840.1.830380.3.579.2. 1259 1994 Unknown [id number] 2.16.840.1.997485.3.579.2. 1258 1994 Unknown [id number] 2.16.840.1.838651.3.579.2. 125 1994 Unknown [id number] 2.16.840.1.742520.3.579.2. 1258 1994 Unknown [id number] 2.16.840.1.479621.3.579.2. 1259 1959 Self-pay [id number] 1959 Unknown [id number] 1.2.840.566566.1.13.239.2. 7.3.041032.315 Social History Date Type Detail Facility Start: 02-28-2021 End: 04-17-2023 Tobacco smoking status NHIS Never smoker [facility] Start: 02-28-2021 End: 04-17-2023 Tobacco use and exposure Never used [email or web address] Phone: Start: 1995 Sex Assigned At Not on file [employer] Work Phone: Exposure to SARS-CoV -2 (event) Not sure [email or web address] Phone: Start: 12-07-2020 [employer] Work Phone: Start: 05-18-2021 End: 06-16-2021 Alcohol intake Ex-drinker (finding) [email or web address] Phone: Start: 06-19-2024 End: 08-13-2024 Alcoholic beverage intake Lifetime non-drinker (finding) [facility] Start: 03-20-2024 End: 05-07-2024 History of Social function [facility] Start: 03-20-2024 End: 05-07-2024 Social connection and isolation panel [facility] Do you belong to any clubs or organizations such as baptist groups, unions, fraternal or athletic groups, or school groups? No [facility] Are you now , , , , never or living with a partner? Living with partner [facility] How often to you hav e a drink containing alcohol? Never [facility] How many standard dr inks containing alcohol do you have on a typical day? Patient does not drink [facility] How hard is it for y ou to pay for the very basics like food, housing, medical care, and heating Not very hard [facility] Do you feel stress - tense, restless, nervous, or anxious, or unable to sleep at night because your mind is troubled all the time - these days [OSQ] Only a little [facility] (I/We) worried wheth er (my/our) food would run out before (I/we) got money to buy more. Never true [facility] Start: 06-12-2023 Alcohol Comment Caffeine: none [facility] Clinical Notes 03-23-2021 to 10-15-2024 MEÑO Andrews - 10/15/2024 2:30 PM ESTTelephone Encounter - William Nieto - 08/12/2024 4:22 PM EDTTelephone Encounter - William Nieto - 08/12/2024 4:22 PM EDTInstructions Note Date & Type Note Facility 10-15-2024 History of Presen t illness Narrative Reason for Appointment: Patient ID: Erika Reid is a 29 y.o. female who presents for Routine Visit (Pt present today for OB visit. Pt has not been seen since 07/21/2024 at 13 weeks gestation. ) Patient presents today for Return OB appointment. MEDICATIONS No current outpatient medications ALLERGIES Allergies Allergen Reactions Latex Hives, Swelling and Rash Red, swells PROBLEMS Active Ambulatory Problems Diagnosis Date Noted 29 weeks gestation of 05/08/2024 Abdominal trauma 05/08/2024 Anxiety about health 05/08/2024 Decreased movement affecting management of mother, antepartum 05/24/2021 Intermittent palpitations 05/08/2024 Missed period 05/08/2024 Slow transit constipation 05/08/2024 Resolved Ambulatory Problems Diagnosis Date Noted No Resolved Ambulatory Problems Past Medical History: Diagnosis Date Anxiety Breast pain, left Depression (CMS/HCC) History of History of migraine headaches Lower back pain Overweight (BMI 25.0-29.9) Pain of ovary Pelvic pain in female HISTORY PAST MEDICAL HISTORY SOCIAL HISTORY Past Medical History: Diagnosis Date Anxiety Breast pain, left Depression (CMS/HCC) History of History of migraine headaches Lower back pain Overweight (BMI 25.0-29.9) Pain of ovary Pelvic pain in female Social History Tobacco Use Smoking status: Never Smokeless tobacco: Never Substance Use Topics Alcohol use: Never Comment: Caffeine: none Drug use: Never FAMILY HISTORY Family History Problem Relation Name Age of Onset Mental illness Mother Nanette Reid Migraines Mother Nanette Reid Other (headache) Mother Nanette Reid Breast cancer Mother Nanette Rangelarvincaleb stage 2 Asthma Mother Nanette Rangelraji Mental illness Father Migraines Sister Alexyia Packer Mental illness Sister Alexyia Packer Asthma Sister Alexyia Packer Mental illness Brother Tong Packer Migraines Brother Tong Packer Asthma Brother Tong Packer No Known Problems Son Asthma Brother Sami Packer SURGICAL HISTORY Past Surgical History: Procedure Laterality Date SECTION, LOW TRANSVERSE 08/31/2021 SECTION, LOW TRANSVERSE 11/02/2023 REVIEW OF SYSTEMS Review of Systems: Review of Systems Constitutional: Negative. HENT: Negative. Eyes: Negative. Respiratory: Negative. Cardiovascular: Negative. Gastrointestinal: Negative. Genitourinary: Negative. Musculoskeletal: Negative. Skin: Negative. Neurological: Negative. All other systems reviewed and are negative. Hematological: Negative. Endocrine: Negative. Allergic/Immunologic: Negative. OBJECTIVE Objective: Physical Exam Constitutional: Appearance: Normal appearance. She is normal weight. HENT: Head: Normocephalic. Cardiovascular: Rate and Rhythm: Normal rate. Pulses: Normal pulses. Pulmonary: Effort: Pulmonary effort is normal. Breath sounds: Normal breath sounds. Abdominal: Palpations: Abdomen is soft. Musculoskeletal: General: Normal range of motion. Neurological: General: No focal deficit present. Mental Status: She is alert and oriented to person, place, and time. Skin: Coloration: Skin is pale. Psychiatric: Mood and Affect: Mood normal. Behavior: Behavior normal. Thought Content: Thought content normal. Judgment: Judgment normal. Vitals and nursing note reviewed. Vitals: Estimated body mass index is 29.48 kg/m as calculated from the following: Height as of 08/13/24: 5' 1 . Weight as of 08/13/24: 156 lb. BP: No LMP recorded. Patient is . ASSESSMENT & PLAN ICD-10-CM 1. Second trimester Z34.92 POCT urinalysis dipstick manually resulted 2. 25 weeks gestation of Z3A.25 3. Diabetes mellitus screening Z13.1 CBC Glucose tolerance, 1 hour CBC Glucose tolerance, 1 hour Return OB: Patient presents today for a routine obstetrics appointment. Patient is currently 25w6d . Patient states she is doing well but has complaints of being tired due to current . Patient has verbalizes frequent movement. labor precautions was discussed/given and patient was instructed to perform kick counts three times a day. Patient states craving ice and appears pale. Pt given cbc and one hour glucose today, we will send in profe and follow up with pt with results Orders Placed This Encounter Procedures CBC Glucose tolerance, 1 hour POCT urinalysis dipstick manually resulted Follow Up: Patient is to return to office in 2 week for routine OB appointment. Documented by Vivian Murphy MA on behalf of: MEÑO Andrews documented in this encounter [facility] 08-12-2024 Telephone encount er Note Pt is on the phone.. she's 17 weeks pg, watery eyes, stuffy nose, runny nose, feels hot (but she's always hot with pg) She isnt sure what to do, since she can't take much with pg. She said she's hoping its just allergies but isnt sure. You are done for the day, but loren has the 5 pm open.. [place] Unless you have a recommendation? [facility] 08-12-2024 Miscellaneous Notes Formattin g of this note might be different from the original. Pt is on the phone.. she's 17 weeks pg, watery eyes, stuffy nose, runny nose, feels hot (but she's always hot with pg) She isnt sure what to do, since she can't take much with pg. She said she's hoping its just allergies but isnt sure. You are done for the day, but loren has the 5 pm open.. [place] Unless you have a recommendation? documented in this encounter [facility] 06-17-2021 History of Presen t illness Narrative Discharge instructions reviewed with patient. Patient verbalized understanding and denies any questions. Discharge papers signed and then given to patient. Patient discharged home from unit accompanied by significant other with understanding of follow up care. No signs of distress noted. Radha Obrien CNM updated via telephone on pt, EFM, and TOCO. Orders received to discharge home. [facility] notified via telephone requesting pt's [...] placed on monitor. documented in this encounter [email or web address] Phone: 05-18-2021 History of Presen t illness Narrative Obstetrical outpatient discharge instructions explained to pt, pt v.u. 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 documented in this encounter [email or web address] Phone: 03-23-2021 Hospital Discharg e Lidia Ibarra MD - 03/23/2021 Please take all medications [...] ANY other concerns. documented in this encounter [email or web address] Phone: Evaluation note Diagnosis Leg swelling- Primary Swelling of limb documented in this encounter [email or web address] Phone: evaluation note* Diagnosis Nausea and vomiting during - Primary documented in this encounter [email or web address] Phone: evaluation note* Diagnosis Decreased movement affecting management of mother, antepartum documented in this encounter [email or web address] Phone: evaluation note* Diagnosis Second trimester state, incidental 25 weeks gestation of Diabetes mellitus screening Screening for diabetes mellitus [facility]* Attachments The following attachments cannot be sent through Care Everywhere. * : Hyperemesis Gravidarum (Icelandic) * Nausea and Vomiting (Icelandic) [facility] Phone: Hospital Discharge instructions* Instructions* Erinn Simms RN - 05/18/[address] Liss Tapia [facility] Dr. Alondra Obrien CNM [address] [facility] [address] [place] [id number] [place] [address] Alondra Carrillo CN [address] [facility] [id number] [phone] Therese Villatoro, MSN, COLLET MAKER, CNM [facility] [address] [facility] [address] [address] Reyn[address] [facility] [address] Richar Rob CNM [address] [place] [address] Gabbie Sandi CNM [address] [place] [address] [phone] ACTIVITY LIMITATIONS: ( x )Up and about [...] OF EMERGENCY CONTACT LABOR AND DELIVERY . RN CARE TRANSITION PRESCRIPTIONS AT [facility] TODAY AND TAKE PRESCRIBED. KEFLEX TO BE TAKEN AT 2:30PM FOR FIRST DOSE. documented in this [facility] [employer] Work Phone: Hospital Discharge instructions* Instructions* Fiona Gilliland, RN - 05/25/[address] Liss Tapia [facility] Dr. Alondra Obrien CN [address] [facility] [address] [facility] [address] [address] Alondra Carrillo CN [address] [facility] [id number] [phone] Therese Villatoro, MSN, COLLET MAKER, CNM [facility] [address] [facility] [address] [address] [facility] [address] [facility] [address] Richar Rob CNM [address] [place] [address] [place] [address] Gabbie Junior CN [address] [place] [address] [place] [address] [phone] ACTIVITY LIMITATIONS: ( x )Up and about [...] LABOR AND DELIVERY . documented in this [facility] [employer] Work Phone: Hospital Discharge instructions* Instructions* Allyson Joel RN - 06/17/[address] Liss Tapia [facility] Dr. Alondra Obrien [facility] [address] [facility] [address] [facility] [address] [address] Alondra Carrillo [facility] [address] [facility] [address] [phone] ACTIVITY LIMITATIONS: ( x )Up and about [...] LABOR AND DELIVERY . documented in [facility] Phone: Discharge Instructions * Instructions* Meche Blood MD - 02/28/2021 Take Keflex as directed until complete. Make sure to stay well-hydrated. Follow- up with your OB. Seek medical attention immediately for any worsening pain or any other acute concerns. * Attachments The following attachments cannot be sent through Care Everywhere. * Abdominal Pain (Icelandic) * : PROM: General Info (Icelandic) * UTI (Urinary Tract Infection): Female (Icelandic) documented in this encounter Assessments Diagnosis Abdominal pain, unspecified abdominal location- Primary Urinary tract infection without hematuria, site unspecified Intrauterine Reason for Referral Status Reason Specialty Diagnoses / Procedures Referre d By Contact Referred To Contact [facility] Diagnoses Leg swelling Procedures VL DUP LOWER EXTREMITY VENOUS BILATERAL Lidia Núñez MD [address] [place] [address] Advance Directives Latest Code Status on File Code Status [...] Comments Decreased Movement Reason Comments Abdominal Pain Reason Comments Routine Visit Pt present today for OB visit. Pt has not been seen since 07/21/2024 at 13 weeks gestation. Ordered Prescriptions (unrec ognized section and content) [...] 2,000 mg, Intravenous, ONCE, 1 dose, On 05/18/21 at 0830 0837 (New Bag - Prov ider: Martha Tatum RN)0908 (Stopped - Provider: Erinn Simms RN) ondansetron (ZOFRAN) injection 4 mg (COMPLETED) 4 mg, Intravenous, ONCE, On Sun05/18/21 at 0830, For 1 dose 0835 (Given - Provid er: Martha Tatum, CARLOS) Continuous Medication Order 05/16/2021 05/17/2021 05/18/2021 lactated [...] pital DATE CREATED AUTHOR AUTHOR'S ORGANIZ ATION 10/18/2024 [facility] Care Teams (unrecognized sec tion and content) Medical Sales Relationship Specialty Start Date End Date Jamila Velez MD [address] [facility] [place] [address] PCP - General Family Medicine 04/03/23 Quynh Roe PA [address] [place] [address] [place] [address] PCP - [facility] 02/25/24 Medical Sales Relationship Specialty Start Date End Date Jamila Velez MD [address] [facility] [place] [address] PCP - General Family Medicine 04/03/23 Quynh Roe PA [address] [place] [address] [place] [address] PCP - [facility] 02/25/24 Medical Sales Relationship Specialty Start Date End Date Jamila Velez MD [address] [place] [address] PCP - General Family Medicine 04/03/23 Quynh Roe PA [address] [place] [address] [place] [address] PCP - [facility] 02/25/24 FOR RECORDS PERTAINING TO PATIENTS WHO ARE [...] BE BASED ON THE PRIMARY CLINICAL RECORDS. [facility]. provides no warranty or guarantee of the accuracy or completeness of information in this document.
[2024-11-11 16:01] LABS: Basophils Percent Auto 0.2 % (0.2-2.0); Eosinophils Absolute Auto 0.1 10^3/uL (0.0-0.7); Eosinophils Percent Auto 0.6 % (0.9-7.0); Hematocrit 30.1 % (36.0-48.0); Hemoglobin 9.2 g/dL (12.0-16.0); Immature Granulocytes Abs Auto 0.08 10^3/uL (0.00-0.03); Immature Granulocytes Pct Auto 0.6 % (0.0-0.5); Lymphocytes Absolute Auto 2.1 10^3/uL (1.2-3.8); Lymphocytes Percent Auto 17.2 % (20.5-60.0); Mean Corpuscular HGB Conc 30.6 g/dL (29.9-35.2); Mean Corpuscular Hemoglobin 24.8 pg (26.7-34.0); Mean Corpuscular Volume 81.1 fL (81.0-99.0); Mean Platelet Volume 10.5 fL (9.5-13.5); Monocytes Absolute Auto 0.8 10^3/uL (0.3-0.8); Monocytes Percent Auto 6.2 % (1.7-12.0); Neutrophils Absolute Auto 9.3 10^3/uL (1.4-6.5); Neutrophils Percent Auto 75.2 % (43.0-75.0); Platelet Count 350 10^3/uL (150-450); Red Blood Count 3.71 10^6/uL (4.20-5.40); Red Cell Distribution Width 15.1 % (11.0-15.0); White Blood Count 12.4 10^3/uL (4.0-11.0)
[2024-11-11 17:10] LABS: Estimated Average Glucose 117 mg/dL; Glycohemoglobin A1C 5.7 % (4.5-6.2)
== END 2024-11-11 15:36 | disposition home or self-care (01) ==
LOC: LAB 15:36
PROVIDERS: Visit Provider Obstetrics & Gynecology
DX: Z13.1 Encounter for screening for diabetes mellitus (principal)
CPT/HCPCS: 36415; 83036; 85025

== ENCOUNTER 2024-11-12 15:32 | Outpatient (OUT) | payer OTHER, SELFPAY ==
[2024-11-14 08:10] LABS: Transferrin 513 mg/dL (192-364)
== END 2024-11-12 15:33 | disposition home or self-care (01) ==
LOC: LAB 15:33
PROVIDERS: Visit Provider Physician Assistant
DX: O99.013 Anemia complicating pregnancy, third trimester (principal)
CPT/HCPCS: 36415; 82728; 84466

== ENCOUNTER 2024-12-17 07:33 | Outpatient (RCR) | payer OTHER, SELFPAY ==
[2024-12-04 10:15] VITALS: BP 129/90; PULSE 120; TEMP 36.6; O2SAT 99
[2024-12-04] MEDS: FERRIC CARBOXYMALTOSE 750 MG in 0.9 % SODIUM CHLORIDE 250 ML 795 MG IV (10:25)
[2024-12-04 11:18] VITALS: BP 115/78; PULSE 112
--- NOTE | 2024-12-04 11:19 | PC.NURSE ---
Pt here for Injectafer. Infusion tolerated w/o incident. Kept for 15 min observation post infusion with no s/s of reaction. Pt d/c'd in stable condition. Scheduled next for dose #2 of Injectafer.
[2024-12-17 14:26] LABS: Basophils Percent Auto 0.2 % (0.2-2.0); Eosinophils Absolute Auto 0.1 10^3/uL (0.0-0.7); Eosinophils Percent Auto 0.5 % (0.9-7.0); Hematocrit 34.8 % (36.0-48.0); Hemoglobin 10.5 g/dL (12.0-16.0); Immature Granulocytes Abs Auto 0.11 10^3/uL (0.00-0.03); Immature Granulocytes Pct Auto 1.1 % (0.0-0.5); Lymphocytes Absolute Auto 1.5 10^3/uL (1.2-3.8); Lymphocytes Percent Auto 14.6 % (20.5-60.0); Mean Corpuscular HGB Conc 30.2 g/dL (29.9-35.2); Mean Corpuscular Hemoglobin 25.1 pg (26.7-34.0); Mean Corpuscular Volume 83.1 fL (81.0-99.0); Mean Platelet Volume 10.5 fL (9.5-13.5); Monocytes Absolute Auto 0.6 10^3/uL (0.3-0.8); Monocytes Percent Auto 5.6 % (1.7-12.0); Neutrophils Absolute Auto 7.9 10^3/uL (1.4-6.5); Platelet Count 241 10^3/uL (150-450); Red Cell Distribution Width 22.8 % (11.0-15.0); White Blood Count 10.1 10^3/uL (4.0-11.0)
[2024-12-17 14:32] VITALS: BP 126/78; PULSE 114; TEMP 37; O2SAT 98
[2024-12-17 14:46] LABS: Red Blood Count 4.19 10^6/uL (4.20-5.40)
[2024-12-17 15:09] LABS: Alanine Aminotransferase 12 U/L (14-59); Albumin Globulin Ratio 0.6; Albumin Level 2.6 g/dL (3.4-5.0); Alkaline Phosphatase 81 U/L (46-116); Aspartate Amino Transferase 10 U/L (15-37); Bilirubin Direct <0.1 mg/dL (0.0-0.2); Bilirubin Total 0.2 mg/dL (0.2-1.0); Globulin 4.1 g/dL; Thyroid Stimulating Hormone 2.628 uIU/mL (0.358-3.740); Total Protein 6.7 g/dL (6.4-8.2)
[2024-12-18 05:09] LABS: HCV Antibody Non Reactive (Non Reactive)
[2024-12-18 17:07] LABS: Bile Acids 2.6 umol/L (0.0-10.0)
== END 2024-12-26 23:59 | disposition home or self-care (01) ==
LOC: INF 07:33
PROVIDERS: Visit Provider Obstetrics & Gynecology
DX: D50.9 Iron deficiency anemia, unspecified (principal); L29.9 Pruritus, unspecified
CPT/HCPCS: 36415; 80076; 82239; 84443; 85025; 86803; 96365; J1439

== ENCOUNTER 2024-12-18 13:00 | Outpatient (OUT) | payer OTHER, SELFPAY ==
[2024-12-18 14:10] LABS: Alanine Aminotransferase 11 U/L (14-59); Albumin Globulin Ratio 0.6; Albumin Level 2.5 g/dL (3.4-5.0); Alkaline Phosphatase 81 U/L (46-116); Aspartate Amino Transferase 9 U/L (15-37); Bilirubin Direct <0.1 mg/dL (0.0-0.2); Bilirubin Total 0.2 mg/dL (0.2-1.0); Globulin 4.2 g/dL; Total Protein 6.7 g/dL (6.4-8.2)
[2024-12-19 17:07] LABS: Bile Acids 1.7 umol/L (0.0-10.0)
== END 2024-12-18 13:01 | disposition home or self-care (01) ==
LOC: LAB 13:01
PROVIDERS: Visit Provider Obstetrics & Gynecology
DX: L29.9 Pruritus, unspecified (principal)
CPT/HCPCS: 36415; 80076; 82239

== ENCOUNTER 2024-12-24 06:59 | Outpatient (REF) | payer OTHER, SELFPAY ==
--- OUTSIDE RECORDS SUMMARY | 2024-12-25 07:03 | XMS_ITS | CCD ---
Author Organization [facility] Care Team Providers Care Entry Level Account Representative Name Role Phone Unavailable Primary Care Provider Unavailabl e POOL, REMA E Attending Unavailable POOL, REMA E Admitting Unavailable OBRIEN, RICHAR WELLS Admitting Unavailabl e OBRIEN, RICHAR WELLS Attending Unavailabl e OBRIEN, RICHAR WELLS Attending Unavailabl e OBRIEN, RICHAR WELLS Admitting Unavailabl e ALCLAANANETTE TRISTAN Attending Unavailable CAITIE, MECHE Attending Unavailable CISCO [...] DR OLIVAREZ LISTED Primary Care Unavaila ble LESLIE ., DR GUARDADO Admitting Unavailable LESLIE ., DR GUARDADO Attending Unavailable REQUEST, DR NONE LISTED Primary Care Unavaila ble LESLIE ., DR GUARDADO Consulting Unavailable LESLIE ., DR GUARDADO Admitting Unavailable LESLIE ., DR GUARDADO Attending Unavailable MISC, DR ALLRED Primary Care Unavailable LESLIE ., DR GUARDADO Admitting Unavailable LESLIE ., DR GUARDADO Attending Unavailable LESLIE ., DR GUARDADO Consulting Unavailable MISC, DR ALLRED Primary Care Unavailable LESLIE ., DR GUARDADO Admitting Unavailable LESLIE ., DR GUARDADO Attending Unavailable LESLIE ., DR GUARDADO Consulting Unavailable MISC, DR ALLRED Primary Care Unavailable LESLIE ., DR GUARDADO Admitting Unavailable LESLIE ., DR GUARDADO Attending Unavailable COEYMANS HOLLOW, DR AMNA Ames Consulting Unavailable LESLIE ., DR GUARDADO Consulting Unavailable REQUEST, DR NONE LISTED Primary Care Unavaila ble LESLIE ., DR GUARDADO Admitting Unavailable LESLIE ., DR GUARDADO Attending Unavailable REQUEST, DR NONE LISTED Primary Care Unavaila ble LESLIE ., DR GUARDADO Consulting Unavailable LESLIE ., DR GUARDADO Admitting Unavailable LESLIE ., DR GUARDADO Attending Unavailable LESLIE ., DR GUARDADO Consulting Unavailable REQUEST, DR NONE LISTED Primary Care Unavaila ble LESLIE ., DR GUARDADO Admitting Unavailable LESLIE ., DR GUARDADO Attending Unavailable ZIEBER, DR [...] Admitting Unavailable MARIO ., ARSH Attending Unavailable [facility] ALLRED Primary Care Unavailable MARIO ., ARSH Consulting Unavailable Rosie CHENEY, Jamila Porras Primary Care Provider Quynh Burnett Unavailable QUYNH VASQUEZ Attending Unavailable JAMILA VELEZ Attending Unavailable LESLIE, CLYDE Attending Unavailable LESLIE, CLYDE Attending Unavailable LESLIE, CLYDE Attending Unavailable LESLIE, CLYDE Attending Unavailable JAMILA VELEZ Attending Unavailable QUYNH VASQUEZ Attending Unavailable QUYNH VASQUEZ Attending Unavailable LESLIE, CLYDE Attending Unavailable Allergies Allergy Classification Reported Allergen(s) Allergy Type Date of Onset Reaction(s) Facility Latex (5 sources) Latex Substance Allergy 1 Swelling [facility] (1 source) Latex Propensity to adverse reactions to drug 1 [facility] Work Phone: (1 source) Latex Drug allergy (disorder) [facility] Repository (20 sources) Latex Propensity to adverse reactions 0 Hives, Swelling, Rash [facility] Work Phone: Medications Current Medications Medication Drug Class(es) Dates Sig (Normalized) Sig (Original) acetaminophen 500 mg oral tablet (4 sources) Start: 08-13-2024 End: 08-23-2024 take 1 tablet by mouth every six hours for pain acetaminophen (Tylenol Extra Strength) 500 MG tablet Indications: Acute non-recurrent maxillary sinusitis Take 1 tablet (500 mg) by mouth every 6 (six) hours if needed for mild pain for up to 10 days 40 tablet 08/13/2024 08/23/2024 Active Start: 05-18-2021 End: 05-18-2021 acetaminophen (TYLENOL) tabl et 1,000 mg amoxicillin 500 mg oral capsule (3 sources) Penicillin-class Antibacterial Start: 08-13-2024 End: 08-23-2024 take 1 capsule by mouth in the morning, then take 1 capsule by mouth in the evening, then take 1 capsule by mouth at bedtime amoxicillin (Amoxil) 500 MG capsule Indications: Acute non-recurrent maxillary sinusitis Take 1 capsule (500 mg) by mouth in the morning and 1 capsule (500 mg) in the evening and 1 capsule (500 mg) before bedtime. Do all this for 10 days. 30 capsule 08/13/2024 08/23/2024 Active Calcium Carbonate Antacid (TUMS PO) (5 sources) [...] by mouth 2 times daily 0 Active docusate sodium 100 mg oral capsule (10 sources) Start: 12-01-2024 take 1 capsule by mouth twice daily as needed for constipation docusate sodium (Colace) 100 MG capsule Indications: Constipation during in third trimester Take 1 capsule (100 mg) by mouth 2 (two) times a day as needed for constipation for up to 60 doses 60 capsule 5 12/01/2024 Active 2 ml famotidine 10 mg/ml injection (1 source) Histamine-2 Receptor Antagonist Start: 04-14-2021 End: 04-14-2021 famotidine (PEPCID) injection 20 mg Start: 04-14-2021 End: 04-14-2021 famotidine (PEPCID) injectio n 20 mg polysaccharide iron complex 391 mg oral capsule (18 sources) Start: 10-15-2024 End: 11-14-2024 take 1 capsule by mouth once daily iron polysaccharides (ProFe) 391.3 (180 Fe) MG capsule Indications: Second trimester Take 1 capsule (391.3 mg) by mouth Daily 30 capsule 6 10/15/2024 11/14/2024 Active take 1 capsule by mouth once david ly iron polysaccharides (Nu-Iron,Niferex) 150 MG capsule Take 1 capsule by mouth Daily Active Vit-Fe Fumarate-FA ( VITAMIN PO) (5 [...] Drug Class(es) Dates Sig (Normalized) Sig (Original) ceFAZolin 2000 mg injection (1 source) Cephalosporin Antibacterial Start: 05-18-2021 End: 05-18-2021 ceFAZolin (ANCEF) 2000 mg in dextrose 3 % 50 mL IVPB (duplex) 2 ml ondansetron 2 mg/ml injection (1 source) Serotonin-3 Receptor Antagonist Start: 05-18-2021 End: 05-18-2021 ondansetron (ZOFRAN) injection 4 mg Problems Active Problems Problem Classification Problem Date Documented Date Episodic/Chronic Abdominal pain (7 sources) Abdominal pain; Translations: [Unspecified abdominal pain] Onset: 07-06-2022 Episodic Anxiety disorders (1 source) Anxiety disorder, unspecified; Translations: [ANXIETY DISORDER UNSPECIFIED] Onset: 10-11-2022 Chronic Esophageal disorders (1 source) Gastro-esophageal reflux disease without esophagitis; Translations: [GERD WITHOUT ESOPHAGITIS] Onset: 10-11-2022 Chronic Immunizations and screening for infectious disease (3 sources) Encounter for screening for human papillomavirus (HPV); Translations: [Exposure to sexually transmissible disorder] Onset: 07-06-2022 12-24-2024 Episodic Menstrual disorders (20 sources) Irregular menstruation, unspecified; Translations: [Missed period] Onset: 04-06-2023 Chronic Other complications of (2 sources) Anemia of ; Translations: [Anemia complicating , third trimester] 11-12-2024 Chronic Other complications of (1 source) Nausea and vomiting; Translations: [Vomiting of , unspecified] Episodic Other complications of (3 sources) Other specified related conditions, first trimester; Translations: [OTH SPEC PREG RELATED COND 1ST TRI] Onset: 04-13-2023 Episodic Other complications of (1 source) related conditions, unspecified, first trimester; Translations: [ RELATED COND UNS 1ST TRI] Onset: 04-16-2023 Episodic Other complications of (2 sources) Excessive growth affecting management of mother; Translations: [Maternal care for excessive growth, third trimester, not applicable or unspecified] 11-12-2024 Episodic Other complications of (2 sources) Diseases of the digestive system complicating , third trimester; Translations: [Other current conditions classifiable elsewhere of mother, antepartum condition or complication] 12-01-2024 Episodic Other connective tissue disease (1 source) Swelling of lower limb; Translations: [Other specified soft tissue disorders] Episodic Other inflammatory condition of skin (2 sources) Pruritus, unspecified; Translations: [Unspecified pruritic disorder] 12-18-2024 Episodic Other and delivery including normal (18 sources) Intrauterine ; Translations: [Encounter for supervision of other normal , first trimester] Onset: 04-16-2023 Episodic Other screening for suspected conditions (not mental disorders or infectious disease) (11 sources) Encounter for test, result negative; Translations: [Encounter for screening for malignant neoplasm of cervix] Onset: 07-04-2022 Episodic Other upper respiratory infections (2 sources) Acute maxillary sinusitis; Translations: [Acute maxillary sinusitis, unspecified] 08-13-2024 Episodic Residual codes; unclassified (1 source) 8 weeks gestation of ; Translations: [8 WEEKS GESTATION OF ] Onset: 04-16-2023 Episodic Residual codes; unclassified (2 sources) Gestation period, 25 weeks; Translations: [25 weeks gestation of ] 10-15-2024 Episodic Residual codes; unclassified (2 sources) Gestation period, 32 weeks; Translations: [32 weeks gestation of ] 12-01-2024 Episodic Residual codes; unclassified (4 sources) Gestation period, 35 weeks; Translations: [35 weeks gestation of ] 12-18-2024 Episodic Unclassified (11 sources) OB Reminders Onset: 11-28-2024 11-28-2024 Past or Other Problems Problem Classification Problem Date Documented Da te Episodic/Chronic Cardiac dysrhythmias (20 sources) Intermittent palpitations; Translations: [Palpitations] Onset: 05-08-2024 05-08-2024 Episodic Hemorrhage during ; abruptio placenta; placenta previa (3 sources) Hemorrhage in early , unspecified; Translations: [HEMORRHAGE EARLY UNS] Onset: 10-13-2022 Episodic Miscellaneous mental health disorders (20 sources) Anxiety about body function or health; Translations: [Other symptoms and signs involving emotional state] Onset: 05-08-2024 05-08-2024 Episodic Nonspecific chest pain (4 sources) Chest pain, unspecified; Translations: [CHEST PAIN UNSPECIFIED] Onset: 10-09-2022 Episodic Other complications of (20 sources) Reduced movement; Translations: [Decreased movements, unspecified [...] UNSPECIFIED] Onset: 09-15-2022 Episodic Other gastrointestinal disorders (20 sources) Slow transit constipation; Translations: [Slow transit constipation] Onset: 05-08-2024 05-08-2024 Episodic Other injuries and conditions due to external causes (20 sources) Injury of abdomen; Translations: [Unspecified injury of abdomen, initial encounter] Onset: 05-08-2024 05-08-2024 Episodic Ovarian cyst (5 sources) Unspecified ovarian cyst, unspecified side; Translations: [Unspecified ovarian cyst, left side] Onset: 07-06-2022 Episodic Residual codes; unclassified (1 source) Weeks of gestation of not specified; Translations: [WEEKS GESTATION NOT SPEC] Onset: 10-11-2022 Episodic Residual codes; unclassified (20 sources) Gestation period, 29 weeks; Translations: [29 weeks gestation of ] Onset: 05-08-2024 05-08-2024 Episodic Spontaneous (1 source) Complete or unspecified spontaneous without complication; Translations: [COMPLETE/UNS SPONT AB W/O COMP] Onset: 10-16-2022 Episodic Urinary tract infections (2 sources) Urinary tract infectious disease; Translations: [Urinary tract infection, site not specified] Onset: 10-11-2022 Episodic Results Test Name Value Interpretation Reference Range Facility Urinalysis macro (dipstick) panel (U)on 12-24-2024 Bilirubin, UA Negative Negative - 4(70) +++ mg/dL [facility] Blood, UA Negative Negative - 50 Cleve/mcL [facility] Clarity, UA Clear [facility] Color, UA Yellow [facility] Glucose, UA Negative Negative - 2000(110) ++++ mg/dL [facility] Interpretation and review of laboratory results Abnormal [facility] Ketones, UA Negative Negative - 160(16) ++++ mg/dL [facility] Leukocytes, UA Negative Negative - 500+++ Arun/mcL [facility] Nitrite, UA Negative Negative - Positive [facility] pH, UA 7 5 - 9 [facility] Protein, UA Trace Negative - 2000(20) ++++ mg/dL [facility] Spec Grav, UA 1.025 1 - 1.03 [facility] Urobilinogen, UA 0.2 0.2 - 12 mg/dL [facility] HMHP LIVER PANELon Albumin [Mass/Vol] 2.5 g/dL Low 3.4 - 5.0 g/dL [facility] ALBUMIN GLOBULIN RATIO 0.6 NO [facility] ALP [Catalytic activity/Vol] 81 U/L 46 - 116 U/L [facility] ALT [Catalytic activity/Vol] 11 U/L Low 14 - 59 U/L [facility] AST [Catalytic activity/Vol] 9 U/L Low 15 - 37 U/L [facility] Bilirubin [Mass/Vol] 0.2 mg/dL 0.2 - 1 .0 mg/dL [facility] Bilirubin.indirect [Mass/Vol] mg/dL 0.0 - 0.2 mg/dL [facility] Globulin (S) [Mass/Vol] 4.2 g/dL [facility] Interpretation and review of laboratory results Abnormal [facility] Protein [Mass/Vol] 6.7 g/dL 6.4 - 8.2 g/dL [facility] ALL CBC WITH AUTO DIFFon BASOPHILS ABSOLUTE AUTO 0 [facility] Basophils/100 WBC (Bld) 0.2 % 0.2 - 2.0 % [facility] Eosinophils/100 WBC (Bld) 0.5 % Low 0.9 - 7.0 % [facility] Erythrocyte distribution width (RBC) [Ratio] 22.8 % High 11.0 - 15.0 % [facility] Hematocrit (Bld) [Volume fraction] 34.8 % Low 36.0 - 48.0 % [facility] Hemoglobin (Bld) [Mass/Vol] 10.5 g/dL Low 12.0 - 16.0 g/dL [facility] IMMATURE GRANULOCYTES ABS AUTO 0.11 High [facility] Immature granulocytes/100 WBC (Bld) 1.1 % High 0.0 - 0.5 % [facility] Interpretation and review of laboratory results Abnormal [facility] LYMPHOCYTES ABSOLUTE AUTO 1.5 [facility] Lymphocytes/100 WBC (Bld) 14.6 % Low 20.5 - 60.0 % [facility] MCH (RBC) [Entitic mass] 25.1 pg Low 26.7 - 34.0 pg [facility] MCHC (RBC) [Mass/Vol] 30.2 g/dL 29.9 - 35.2 g/dL [facility] MCV (RBC) [Entitic vol] 83.1 fL 81.0 - 99.0 fL [facility] WBC (Bld) 5.6 % 1.7 - 12.0 % [facility] NEUTROPHILS ABSOLUTE AUTO 7.9 High [facility] Neutrophils/100 WBC (Bld) 78 % High 43.0 - 75.0 % [facility] Platelet mean volume (Bld) [Entitic vol] 10.5 fL 9.5 - 13.5 fL [facility] TBH EO # 0.1 [facility] TBH PLT 241 [facility] TB RBC 4.19 Low [facility] Comment on above: 2+ ANISOCYTOSIS TBH WBC 10.1 [facility] US OB FOLLOW UP TRANSABDOMIN AL APPROACHon 12-01-2024 US OB FOLLOW UP TRANSABDOMINAL APPROACH TITLE OF EXAM: OB Ultrasound: REASON FOR EXAM: LGA. COMPARISON: None TECHNIQUE: Grayscale and M-mode Doppler imaging is performed. FINDINGS: heart rate: 165 bpm BABAK: 16.1 cm (8.4-24.4) BPD: 8.2 cm HC: 30.1 cm AC: 29.1 cm FL: 6.2 cm GA for sonogram: 32.9 wk (29.9-35.9) BELL: 01/22/2025 Weight Estimate: Weight: 2063 gm / 4 lbs, 8 oz (8594-8377 gm) [place] Normal: 2072 gm (9919-9498 gm) [place] Wt%: 49% for 32.6 wks Limited for: Growth Presentation: Cephalic Lie: Longitudinal Amniotic Fluid:16.1 cm Between 5th and 95 percentile Largest Fluid Pocket: 4.8 cm Heart rate: 165 bpm Other: Active fetus AUA 33 w, 0 d 50% IMPRESSION: Single live intrauterine gestation in cephalic position with estimated sonographic age of 32.9 weeks. This is concordant with provided clinical dates. *This report is generated using voice recognition reporting ([employer]). On occasion [employer] erroneously drops words from the report or replaces the spoken word with similar sounding words. Please call with any questions/concerns regarding this report.* Dictated and transcribed 12/01/24/dpd This report has been electronically signed and approved by the interpreting radiologist. Normal Not Available Comment on above: Order Comment: US OB SCAN FOR GROWTH Estimated Date of Delivery: 01/22/25 Gestational Age as of 11/12/2024: 32w1d Urinalysis macro (dipstick) panel (U)on 12-01-2024 Bilirubin, UA Negative Negative - 4(70) +++ mg/dL [facility] Blood, UA Negative Negative - 50 Cleve/mcL [facility] Clarity, UA Clear [facility] Color, UA Yellow [facility] Glucose, UA Negative Negative - 2000(110) ++++ mg/dL [facility] Interpretation and review of laboratory results Abnormal [facility] Ketones, UA Negative Negative - 160(16) ++++ mg/dL [facility] Leukocytes, UA Positive Negative - 500+++ Arun/mcL [facility] Comment on above: small Nitrite, UA Negative Negative - Positive [facility] pH, UA 7 5 - 9 [facility] Protein, UA Trace Negative - 2000(20) ++++ mg/dL [facility] Spec Grav, UA 1.02 1 - 1.03 [facility] Urobilinogen, UA 0.2 0.2 - 12 mg/dL [facility] FERRITINon 11-12-2024 Ferritin [Mass/Vol] 4 ng/mL Low 8.0 - 25 2.0 ng/mL [facility] Interpretation and review of laboratory results Abnormal [facility] ALL CBC WITH AUTO DIFFon BASOPHILS ABSOLUTE AUTO 0 [facility] Basophils/100 WBC (Bld) 0.2 % 0.2 - 2.0 % [facility] Eosinophils/100 WBC (Bld) 0.6 % Low 0.9 - 7.0 % [facility] Erythrocyte distribution width (RBC) [Ratio] 15.1 % High 11.0 - 15.0 % [facility] Hematocrit (Bld) [Volume fraction] 30.1 % Low 36.0 - 48.0 % [facility] Hemoglobin (Bld) [Mass/Vol] 9.2 g/dL Low 12.0 - 16.0 g/dL [facility] IMMATURE GRANULOCYTES ABS AUTO 0.08 High [facility] Immature granulocytes/100 WBC (Bld) 0.6 % High 0.0 - 0.5 % [facility] Interpretation and review of laboratory results Abnormal [facility] LYMPHOCYTES ABSOLUTE AUTO 2.1 [facility] Lymphocytes/100 WBC (Bld) 17.2 % Low 20.5 - 60.0 % [facility] MCH (RBC) [Entitic mass] 24.8 pg Low 26.7 - 34.0 pg [facility] MCHC (RBC) [Mass/Vol] 30.6 g/dL 29.9 - 35.2 g/dL [facility] MCV (RBC) [Entitic vol] 81.1 fL 81.0 - 99.0 fL [facility] MONOCYTES ABSOLUTE AUTO 0.8 [facility] Monocytes/100 WBC (Bld) 6.2 % 1.7 - 12.0 % [facility] NEUTROPHILS ABSOLUTE AUTO 9.3 High [facility] Neutrophils/100 WBC (Bld) 75.2 % High 43.0 - 75.0 % [facility] Platelet mean volume (Bld) [Entitic vol] 10.5 fL 9.5 - 13.5 fL [facility] TBH EO # 0.1 [facility] PLT 350 [facility] RBC 3.71 Low [facility] WBC 12.4 High [facility] ALL CBC WITH AUTO DIFFon BASOPHILS ABSOLUTE AUTO 0 [facility] Basophils/100 WBC (Bld) 0.2 % 0.2 - 2.0 % [facility] Eosinophils/100 WBC (Bld) 0.7 % Low 0.9 - 7.0 % [facility] Erythrocyte distribution width (RBC) [Ratio] 14.5 % 11.0 - 15.0 % [facility] Hematocrit (Bld) [Volume fraction] 31.2 % Low 36.0 - 48.0 % [facility] Hemoglobin (Bld) [Mass/Vol] 9.6 g/dL Low 12.0 - 16.0 g/dL [facility] IMMATURE GRANULOCYTES ABS AUTO 0.1 High [facility] Immature granulocytes/100 WBC (Bld) 0.8 % High 0.0 - 0.5 % [facility] Interpretation and review of laboratory results Abnormal [facility] LYMPHOCYTES ABSOLUTE AUTO 1.9 [facility] Lymphocytes/100 WBC (Bld) 14.8 % Low 20.5 - 60.0 % [facility] MCH (RBC) [Entitic mass] 25.7 pg Low 26.7 - 34.0 pg [facility] MCHC (RBC) [Mass/Vol] 30.8 g/dL 29.9 - 35.2 g/dL [facility] MCV (RBC) [Entitic vol] 83.6 fL 81.0 - 99.0 fL [facility] MONOCYTES ABSOLUTE AUTO 0.7 [facility] Monocytes/100 WBC (Bld) 5.4 % 1.7 - 12.0 % [facility] NEUTROPHILS ABSOLUTE AUTO 10 High [facility] Neutrophils/100 WBC (Bld) 78.1 % High 43.0 - 75.0 % [facility] Platelet mean volume (Bld) [Entitic vol] 10.4 fL 9.5 - 13.5 fL [facility] TBH EO # 0.1 [facility] TBH PLT 337 [facility] RBC 3.73 Low [facility] TB WBC 12.8 High [facility] Urinalysis macro (dipstick) panel (U)on 10-15-2024 Bilirubin, UA Negative Negative - 4(70) +++ mg/dL [facility] Blood, UA Negative Negative - 50 Cleve/mcL [facility] Clarity, UA Clear [facility] Color, UA Yellow [facility] Glucose, UA Negative Negative - 1999(110) ++++ mg/dL [facility] Interpretation and review of laboratory results Abnormal [facility] Ketones, UA Negative Negative - 160(16) ++++ mg/dL [facility] Leukocytes, UA Positive Negative - 500+++ Arun/mcL [facility] Comment on above: small Nitrite, UA Negative Negative - Positive [facility] pH, UA 7.5 5 - 9 [facility] Protein, UA Negative Negative - 1999(20) ++++ mg/dL [facility] Spec Grav, UA 1.015 1 - 1.03 [facility] Urobilinogen, UA 0.2 0.2 - 12 mg/dL [facility] AFP, SERUM, OPEN SPINA BIFID Aon 08-21-2024 AFP MOM 0.93 . [facility] AFP VALUE 37.4 ng/mL . [facility] COMMENT: Comment . [facility] Comment on above: Emperatriz Ward , Ph.D., [facility] Director References: Available Upon Request. Multiples Of Median Cutoffs For AFP Elevations Dia 2.5 Black 2.8 IDD 2.0 Twins 4.5 Abbreviation Definitions IDD - Insulin Dep Diabetes OSBR - Open Spina Bifida Risk For further inquiries contact [employer] [facility] at [phone]. This test was developed and its performance characteristics determined by [employer]. It has not been cleared or approved by the Food and Drug Administration. Performed at: [facility] [place] [address] [facility], [place], [place] [id number] Maintenance Service Technician: Ginny Brownlee [facility], Phone: [phone] GEST. AGE ON COLLECTION DATE 17.6 . weeks [facility] GESTAT. AGE BASED ON Ultrasound . [facility] Comment on above: 13.6 on 07/21/2024 Recalculations are not recommended when gestational dating by LMP and ultrasound are within 10 days. INSULIN DEP DIABETES No . [facility] INTERPRETATION Comment . [facility] Comment on above: Interpretation: Scre en Negative This result is screen negative for OSB. The AFP MoM calculated is based on the gestational age provided. MS-AFP can identify up to 80% of open neural tube defects. Closed neural tube defects and some open defects may not be detected by this test. This test does not screen for Down Syndrome or Trisomy 18. If screening for Down Syndrome or Trisomy 18 is desired, contact [facility] to discuss available options. The [employer] recommends amniocentesis be offered to women age 35 and older. [age] BELL [age] [facility] MULTIPLE GESTATION No . [facility] OSBR RISK [address] [place] [id number] . [facility] RACE . [facility] RESULTS Report . [facility] TEST RESULTS: Negative . [facility] WEIGHT 153 . lbs [facility] N N ULTRASOUND [id number] 4 13 N 1 Y 153 N N N N N White/ [facility] [facility] - Microbiology an d Antimicrobial susceptibilityon 08-19-2024 SARS-CoV-2 (COVID-19) RNA ARI+probe Ql (Unsp spec) Negative [facility] No Panel Informationon 08-19 FLU A Negative [facility] FLU B Negative [facility] Interpretation and review of laboratory results Normal [facility] Urinalysis macro (dipstick) panel (U)on 07-21-2024 Bilirubin, UA Negative Negative - 4(70) +++ mg/dL [facility] Blood, UA Negative Negative - 50 Cleve/mcL [facility] Clarity, UA Clear [facility] Color, UA Yellow [facility] Glucose, UA Negative Negative - 2000(110) ++++ mg/dL [facility] Interpretation and review of laboratory results Abnormal [facility] Ketones, UA Positive Negative - 160(16) ++++ mg/dL [facility] Comment on above: trace Leukocytes, UA Trace Negative - 500+++ Arun/mcL [facility] Nitrite, UA Negative Negative - Positive [facility] pH, UA 7.5 5 - 9 [facility] Protein, UA Negative Negative - 2000(20) ++++ mg/dL [facility] Spec Grav, UA 1.025 1 - 1.03 [facility] Urobilinogen, UA 0.2 0.2 - 12 mg/dL [facility] HEP B SURFACE ANTIGEN SCREEN on 04-18-2023 HBsAg Screen Negative Normal Negative [facility] Comment on above: Performed By: #### H BSANS #### [facility] [address] [place] [address] Dr. Josh Jacinto HEPATITIS C VIRUS AB W/ REFL EX QUANTon 04-18-2023 HCV AB Non-Reactive Normal Non Reactive [facility] Comment on above: Performed By: #### H CVPCRR #### [facility] [address] [place] [address] Dr. Josh Jacinto HIV 1 AND 2 WITH REFLEXon HIV Screen 4th Generation wRfx Non-Reactive Normal Non Reactive [facility] Comment on above: Result Comment: HIV Negative HIV-1/HIV-2 antibodies and HIV-1 p24 antigen were NOT detected. There is no laboratory evidence of HIV infection. Performed By: #### B OX #### [facility] [address] [place] [address] Dr. Josh Jacinto RPR QUANTon 04-18-2023 Rapid Plasma Reagin, Quant Non-Reactive Normal NonRea<1:1 [facility] Comment on above: Result Comment: Daxa philip Note: This test does not meet current guidelines for screening and diagnosis of syphilis. This test is intended for following treatment response in patients being treated for syphilis infection. To screen for syphilis infection, a reflex cascade that includes both RPR and a treponema-specific assay should be utilized, such as Treponema pallidum (Syphilis) Screening Capron (649653) or Rapid Plasma Reagin (RPR) Test With Reflex to Quantitative RPR and Confirmatory Treponema pallidum Antibodies (189745). Performed By: #### B OX #### [facility] [address] [place] [address] Dr. Josh Jacinto RUBELLA AB IGGon 04-18-2023 Rubella Antibodies, IgG 1.84 index Normal Immune >0.99 [facility] Comment on above: Result Comment: Non- immune <0.90 Equivocal 0.90 - 0.99 Immune >0.99 Performed By: #### H CGSUB #### [facility] [address] [place] [address] Dr. Josh Jacinto BOX TEST SENT OUTon 04-16-20 23 SENT TO REF LAB 04/17/2023 Normal [facility] Comment on above: Performed By: #### B OX #### [facility] [address] [place] [address] Dr. Josh Jacinto CBC AUTO DIFFon 04-16-2023 BASO # 0.0 103/ul Normal 0.0-0.1 [facility] Comment on above: Performed By: #### B OX #### [facility] [address] [place] [address] Dr. Josh Jacinto Basophils/100 WBC (Bld) 0.2 % Normal 0.2-2.0 [facility] Comment on above: Performed By: #### B OX #### [facility] [address] [place] [address] Dr. Josh Jacinto EO # 0.1 103/ul Normal 0.0-0.7 [facility] Comment on above: Performed By: #### B OX #### [facility] [address] [place] [address] Dr. Josh Jacinto Eosinophils/100 WBC (Bld) 0.6 % Critically low 0.9-7.0 [facility] Comment on above: Performed By: #### B OX #### [facility] [address] [place] [address] Dr. Josh Jacinto Erythrocyte distribution width (RBC) [Ratio] 13.4 % Normal 11.0-15.0 [facility] Comment on above: Performed By: #### B OX #### [facility] [address] [place] [address] Dr. Josh Jacinto Hematocrit (Bld) [Volume fraction] 36.9 % Normal 36.0-48.0 [facility] Comment on above: Performed By: #### B OX #### [facility] [address] [place] [address] Dr. Josh Jacinto Hemoglobin (Bld) [Mass/Vol] 12.4 g/dL Normal 12.0-16.0 [facility] Comment on above: Performed By: #### B OX #### [facility] [address] [place] [address] Dr. Josh Jacinto IG # 0.02 10e3/ul Normal 0.00-0.03 [facility] Comment on above: Performed By: #### B OX #### [facility] [address] [place] [address] Dr. Josh Jacinto IG % 0.2 % Normal 0.0-0.5 [facility] Comment on above: Performed By: #### B OX #### [facility] [address] [place] [address] Dr. Josh Jacinto LYMPH # 2.3 103/ul Normal 1.2-3.8 [facility] Comment on above: Performed By: #### B OX #### [facility] [address] [place] [address] Dr. Josh Jacinto Lymphocytes/100 WBC (Bld) 19.4 % Critically low 20.5-60.0 [facility] Comment on above: Performed By: #### B OX #### [facility] [address] [place] [address] Dr. Josh Jacinto MANUAL DIFF REQ NO Normal [facility] Comment on above: Performed By: #### B OX #### [facility] [address] [place] [address] Dr. Josh Jacinto MCH (RBC) [Entitic mass] 29.6 pg Normal 26.7-34.0 [facility] Comment on above: Performed By: #### B OX #### [facility] [address] [place] [address] Dr. Josh Jacinto MCHC (RBC) [Mass/Vol] 33.6 g/dL Normal 29.9-35.2 [facility] Comment on above: Performed By: #### B OX #### [facility] [address] [place] [address] Dr. Josh Jacinto MCV (RBC) [Entitic vol] 88.1 fL Normal 81.0-99.0 [facility] Comment on above: Performed By: #### B OX #### [facility] [address] [place] [address] Dr. Josh Jacinto MONO # 0.6 103/ul Normal 0.3-0.8 [facility] Comment on above: Performed By: #### B OX #### [facility] [address] [place] [address] Dr. Josh Jacinto Monocytes/100 WBC (Bld) 5.1 % Normal 1.7-12.0 [facility] Comment on above: Performed By: #### B OX #### [facility] [address] [place] [address] Dr. Josh Jacinto NEUT # 9.0 103/ul Critically high 1.4-6.[address] [facility] Comment on above: Performed By: #### B OX #### [facility] [address] [place] [address] Dr. Josh Jacinto Neutrophils/100 WBC (Bld) 74.5 % Normal 43.0-75.0 [facility] Comment on above: Performed By: #### B OX #### [facility] [address] [place] [address] Dr. Josh Jacinto Platelet mean volume (Bld) [Entitic vol] 10.1 fL Normal 9.5-13.5 [facility] Comment on above: Performed By: #### B OX #### [facility] [address] [place] [address] Dr. Josh Jacinto PLT 337 103/ul Normal 150-450 [facility] Comment on above: Performed By: #### B OX #### [facility] [address] [place] [address] Dr. Josh Jacinto RBC 4.19 106/ul Critically low 4.20-5.[address] [facility] Comment on above: Performed By: #### B OX #### [facility] [address] [place] [address] Dr. Josh Jacinto WBC 12.0 103/ul Critically high 4.0-11.0 [facility] Comment on above: Performed By: #### B OX #### [facility] [address] [place] [address] Dr. Josh Jacinto CULTURE URINEon 04-16-2023 CULTURE URINE Culture Observations: NO GROWTH. Normal [facility] Comment on above: Performed By: #### H CGSUB #### [facility] [address] [place] [address] Dr. Josh Jacinto GLYCOHEMOGLOBIN A1Con 2022 ADA RECOMMENDATION SEE BELOW Normal [facility] Comment on above: Result Comment: ADA RECOMMENDED LIMIT 4.0 - 6.0 ADA THERAPEUTIC TARGET < 7.0 ACTION SUGGESTED > 7.0 Performed By: #### H CVPCRR #### [facility] [address] [place] [address] Dr. Josh Jacinto Glucose [Mass/Vol] 91 mg/dL Normal [facility] Comment on above: Performed By: #### H CVPCRR #### [facility] [address] [place] [address] Dr. Josh Jacinto HbA1c (Bld) [Mass fraction] 4.8 % Normal 4.5-6.2 [facility] Comment on above: Performed By: #### H CVPCRR #### [facility] [address] [address] [address] Josh Jacinto TSHon 04-16-2023 TSH 1.700 uIU/mL Normal 0.358-3.740 [facility] Comment on above: Performed By: #### H CGSUB #### [facility] [id number] [address] Josh Jacinto TYPE AND SCREENon 04-16-2023 TYPE AND SCREEN Negative Normal [facility] Comment on above: Performed By: #### H CGSUB #### [facility] [id number] [address] Josh Jacinto US PREG TVon 04-13-2023 US PREG TV EXAMINATION: US PREG TV HISTORY: Pain TECHNIQUE: Grayscale and color Doppler sonographic evaluation of the uterus and adnexa was performed utilizing a transvaginal approach only. COMPARISON: 04/06/2023 FINDINGS: Uterus: Size: Normal Orientation:Antevert ed Intrauterine Gestational Sac: Present Yolk Sac: Present Pole: Present. [place]-rump length measures 2.1 cm, 8 weeks 5 [...] ANANT ERIC Date: 2023-04-13 20:47 Normal [facility] US PREG TVon 04-06-2023 US PREG [...] Single live intrauterine . Electronically authenticated by: ROXYKENNETH QUINTERODANIEL Date: 2023-04-06 10:05 Normal [facility] CBC AUTO DIFFon 10-13-2022 BASO # 0.0 103/ul Normal 0.0-0.1 [facility] Comment on above: Performed By: #### H CVPCRR #### [facility] [address] [place] [address] Dr. Josh Jacinto Basophils/100 WBC (Bld) 0.4 % Normal 0.2-2.0 [facility] Comment on above: Performed By: #### H CVPCRR #### [facility] [address] [place] [address] Dr. Josh Jacinto EO # 0.1 103/ul Normal 0.0-0.7 [facility] Comment on above: Performed By: #### H CVPCRR #### [facility] [address] [place] [address] Dr. Josh Jacinto Eosinophils/100 WBC (Bld) 1.2 % Normal 0.9-7.0 [facility] Comment on above: Performed By: #### H CVPCRR #### [facility] [address] [place] [address] Dr. Josh Jacinto Erythrocyte distribution width (RBC) [Ratio] 12.7 % Normal 11.0-15.0 [facility] Comment on above: Performed By: #### H CVPCRR #### [facility] [address] [place] [address] Dr. Josh Jacinto Hematocrit (Bld) [Volume fraction] 39.3 % Normal 36.0-48.0 [facility] Comment on above: Performed By: #### H CVPCRR #### [facility] [address] [place] [address] Dr. Josh Jacinto Hemoglobin (Bld) [Mass/Vol] 13.1 g/dL Normal 12.0-16.0 [facility] Comment on above: Performed By: #### H CVPCRR #### [facility] [address] [place] [address] Dr. Josh Jacinto IG # 0.02 10e3/ul Normal 0.00-0.03 [facility] Comment on above: Performed By: #### H CVPCRR #### [facility] [address] [place] [address] Dr. Josh Jacinto IG % 0.3 % Normal 0.0-0.5 [facility] Comment on above: Performed By: #### H CVPCRR #### [facility] [address] [place] [address] Dr. Josh Jacinto LYMPH # 2.1 103/ul Normal 1.2-3.8 [facility] Comment on above: Performed By: #### H CVPCRR #### [facility] [address] [place] [address] Dr. Josh Jacinto Lymphocytes/100 WBC (Bld) 28.8 % Normal 20.5-60.0 [facility] Comment on above: Performed By: #### H CVPCRR #### [facility] [address] [place] [address] Dr. Josh Jacinto MANUAL DIFF REQ NO Normal [facility] Comment on above: Performed By: #### H CVPCRR #### [facility] [address] [place] [address] Dr. Josh Jacinto MCH (RBC) [Entitic mass] 28.9 pg Normal 26.7-34.0 [facility] Comment on above: Performed By: #### H CVPCRR #### [facility] [address] [place] [address] Dr. Josh Jacinto MCHC (RBC) [Mass/Vol] 33.3 g/dL Normal 29.9-35.2 [facility] Comment on above: Performed By: #### H CVPCRR #### [facility] [address] [place] [address] Dr. Josh Jacinto MCV (RBC) [Entitic vol] 86.6 fL Normal 81.0-99.0 [facility] Comment on above: Performed By: #### H CVPCRR #### [facility] [address] [place] [address] Dr. Josh Jacinto MONO # 0.6 103/ul Normal 0.3-0.8 [facility] Comment on above: Performed By: #### H CVPCRR #### [facility] [address] [place] [address] Dr. Josh Jacinto Monocytes/100 WBC (Bld) 8.7 % Normal 1.7-12.0 [facility] Comment on above: Performed By: #### H CVPCRR #### [facility] [address] [place] [address] Dr. Josh Jacinto NEUT # 4.4 103/ul Normal 1.4-6.5 [facility] Comment on above: Performed By: #### H CVPCRR #### [facility] [address] [place] [address] Dr. Josh Jacinto Neutrophils/100 WBC (Bld) 60.6 % Normal 43.0-75.0 [facility] Comment on above: Performed By: #### H CVPCRR #### [facility] [address] [place] [address] Dr. Josh Jacinto Platelet mean volume (Bld) [Entitic vol] 10.0 fL Normal 9.5-13.5 [facility] Comment on above: Performed By: #### H CVPCRR #### [facility] [address] [place] [address] Dr. Josh Jacinto PLT 327 103/ul Normal 150-450 [facility] Comment on above: Performed By: #### H CVPCRR #### [facility] [address] [place] [address] Dr. Josh Jacinto RBC 4.54 106/ul Normal 4.20-5.40 [facility] Comment on above: Performed By: #### H CVPCRR #### [facility] [address] [place] [address] Dr. Josh Jacinto WBC 7.2 103/ul Normal 4.0-11.0 [facility] Comment on above: Performed By: #### H CVPCRR #### [facility] [address] [place] [address] Dr. Josh Jacinto ER URINE PROFILEon 2 Bilirubin Ql (U) Negative Normal NEGATIVE [facility] Comment on above: Performed By: #### H CVPCRR #### [facility] [address] [place] [address] Dr. Josh Jacinto Clarity (U) CLEAR Normal CLEAR [facility] Comment on above: Performed By: #### H CVPCRR #### [facility] [address] [place] [address] Dr. Josh Jacinto Color (U) LT. YELLOW Normal YELLOW [facility] Comment on above: Performed By: #### H CVPCRR #### [facility] [address] [place] [address] Dr. Josh LOWEEdd A micrscopic examination will be performed if indicated. Normal [facility] Comment on above: Performed By: #### H CVPCRR #### [facility] [address] [place] [address] Dr. Josh Jacinto Glucose Ql (U) Negative Normal NEGATIVE [facility] Comment on above: Performed By: #### H CVPCRR #### [facility] [address] [place] [address] Dr. Josh Jacinto Hemoglobin Ql (U) LARGE Abnormal NEGATIVE [facility] Comment on above: Performed By: #### H CVPCRR #### [facility] [address] [place] [address] Dr. Josh Jacinto Ketones Ql (U) Negative Normal NEGATIVE [facility] Comment on above: Performed By: #### H CVPCRR #### [facility] [address] [place] [address] Dr. Josh Jacinto LEUKOCYTES Negative Normal NEGATIVE [facility] Comment on above: Performed By: #### H CVPCRR #### [facility] [address] [place] [address] Dr. Josh Jacinto Nitrite Ql (U) Negative Normal NEGATIVE [facility] Comment on above: Performed By: #### H CVPCRR #### [facility] [address] [place] [address] Dr. Josh Jacinto pH (U) 6.5 [pH] Normal 5-9 [facility] Comment on above: Performed By: #### H CVPCRR #### [facility] [address] [place] [address] Dr. Josh Jacinto SPEC GRAVITY 1.010 Normal 1.005-<=1.[address] [facility] Comment on above: Performed By: #### H CVPCRR #### [facility] [address] [place] [address] Dr. Josh Jacinto UA PROTEIN Negative Normal NEGATIVE/ TRACE [facility] Comment on above: Performed By: #### H CVPCRR #### [facility] [address] [place] [address] Dr. Josh Jacinto UR MICRO IND INDICATED Normal [facility] Comment on above: Performed By: #### H CVPCRR #### [facility] [address] [place] [address] Dr. Josh Jacinto Urobilinogen Qn (U) 0.2 {Pio'U}/dL Normal 0.2 - 1. 0 [facility] Comment on above: Performed By: #### H CVPCRR #### [facility] [address] [place] [address] Dr. Josh Jacinto PREG QUANT HCGon 10-13-2022 HCG QUANT 4 mIU/mL Normal [facility] Comment on above: Performed By: #### P REGQNT #### [facility] [address] [place] [address] Dr. Josh Jacinto HCG RANGE SEE BELOW Normal [facility] Comment on above: Result Comment: 5-50 0.2-1 WEEK 50-500 1-2 WEEKS 100-5,000 2-3 WEEKS 500-10,000 3-4 WEEKS 1,000-50,000 4-5 WEEKS 10,000-100,000 5-6 WEEKS 15,000-200,000 6-8 WEEKS 10,000-100,000 2-3 MONTHS Performed By: #### P REGQNT #### [facility] [address] [place] [address] Dr. Josh Jacinto PROTIMEon 10-13-2022 INR Coag (PPP) [Relative time] 1.29 {INR} Normal [facility] Comment on above: Performed By: #### H CVPCRR #### [facility] [address] [place] [address] Dr. Josh Jacinto INR GUIDELINES SEE BELOW Normal [facility] Comment on above: Result Comment: PASCUAL RED INR: 2.0 - 3.0 CONDITIONS NOT LISTED BELOW 2.5 - 3.5 FOR PROSTHETIC HEART VALVE REPLACEMENT 2.5 - 3.5 RECURRENT THROMBOSIS Performed By: #### H CVPCRR #### [facility] [address] [place] [address] Dr. Josh Jacinto PT Coag (PPP) [Time] 13.7 s Critically high 9.0-11.6 [facility] Comment on above: Performed By: #### H CVPCRR #### [facility] [address] [place] [address] Dr. Josh Jacinto PTTon 10-13-2022 aPTT Coag (Bld) [Time] 25.1 s Normal 22.3-36.2 Th [facility] Comment on above: Performed By: #### H CVPCRR #### [facility] [address] [place] [address] Dr. Josh Jacinto URINE MICROSCOPIC ONLYon BACTERIA NONE SEEN Normal NONE SEEN [facility] Comment on above: Performed By: #### H CVPCRR #### [facility] [address] [place] [address] Dr. Josh Jacinto Bacteria identified Cx Nom (U) NOT INDICATED Normal [facility] Comment on above: Performed By: #### H CVPCRR #### [facility] [address] [place] [address] Dr. Josh Jacinto CAST NONE SEEN Normal NONE SEEN [facility] Comment on above: Performed By: #### H CVPCRR #### [facility] [address] [place] [address] Dr. Josh Jacinto Crystals LM Nom (Urine sed) NONE SEEN Normal NONE SEEN [facility] Comment on above: Performed By: #### H CVPCRR #### [facility] [address] [place] [address] Dr. Josh Jacinto Epithelial cells LM Ql (Urine sed) MODERATE Abnormal NONE SEEN /RARE [facility] Comment on above: Performed By: #### H CVPCRR #### [facility] [address] [place] [address] Dr. Josh Jacinto MUCOUS NONE SEEN Normal NONE SEEN [facility] Comment on above: Performed By: #### H CVPCRR #### [facility] [address] [place] [address] Dr. Josh Jacinto RBC 10-20 Abnormal 0-2 [facility] Comment on above: Performed By: #### H CVPCRR #### [facility] [address] [place] [address] Dr. Josh Jacinto WBC 0-2 Abnormal NONE SEEN [facility] Comment on above: Performed By: #### H CVPCRR #### [facility] [address] [place] [address] Dr. Josh Jacinto US PREG TVon 10-13-2022 [...] AMNA VALLADARES Date: 2022-10-13 08:40 Normal [facility] CBC AUTO DIFFon 10-09-2022 BASO # 0.0 103/ul Normal 0.0-0.1 [facility] Comment on above: Performed By: #### H CVPCRR #### [facility] [address] [place] [address] Dr. Josh Jacinto Basophils/100 WBC (Bld) 0.3 % Normal 0.2-2.0 [facility] Comment on above: Performed By: #### H CVPCRR #### [facility] [address] [place] [address] Dr. Josh Jacinto EO # 0.0 103/ul Normal 0.0-0.7 [facility] Comment on above: Performed By: #### H CVPCRR #### [facility] [address] [place] [address] Dr. Josh Jacinto Eosinophils/100 WBC (Bld) 0.4 % Critically low 0.9-7.0 [facility] Comment on above: Performed By: #### H CVPCRR #### [facility] [address] [place] [address] Dr. Josh Jacinto Erythrocyte distribution width (RBC) [Ratio] 12.7 % Normal 11.0-15.0 [facility] [facility] Comment on above: Performed By: #### H CVPCRR #### [facility] [address] [place] [address] Dr. Josh Jacinto Hematocrit (Bld) [Volume fraction] 39.0 % Normal 36.0-48.0 [facility] Comment on above: Performed By: #### H CVPCRR #### [facility] [address] [place] [address] Dr. Josh Jacinto Hemoglobin (Bld) [Mass/Vol] 13.1 g/dL Normal 12.0-16.0 [facility] Comment on above: Performed By: #### H CVPCRR #### [facility] [address] [place] [address] Dr. Josh Jacinto IG # 0.03 10e3/ul Normal 0.00-0.03 [facility] Comment on above: Performed By: #### H CVPCRR #### [facility] [address] [place] [address] Dr. Josh Jacinto IG % 0.3 % Normal 0.0-0.5 [facility] Comment on above: Performed By: #### H CVPCRR #### [facility] [address] [address] [address] Josh Jacinto LYMPH # 2.0 103/ul Normal 1.2-3.8 [facility] Comment on above: Performed By: #### H CVPCRR #### [facility] [address] [address] [address] Josh Jacinto Lymphocytes/100 WBC (Bld) 18.4 % Critically low 20.5-60.0 [facility] Comment on above: Performed By: #### H CVPCRR #### [facility] [address] [address] [address] Josh Jacinto MANUAL DIFF REQ NO Normal [facility] Comment on above: Performed By: #### H CVPCRR #### [facility] [address] [address] [address] Josh Jacinto MCH (RBC) [Entitic mass] 29.0 pg Normal 26.7-34.0 [facility] Comment on above: Performed By: #### H CVPCRR #### [facility] [address] [address] [address] Josh Jacinto MCHC (RBC) [Mass/Vol] 33.6 g/dL Normal 29.9-35.2 [facility] Comment on above: Performed By: #### H CVPCRR #### [facility] [address] [address] [address] Josh Jacinto MCV (RBC) [Entitic vol] 86.5 fL Normal 81.0-99.0 [facility] Comment on above: Performed By: #### H CVPCRR #### [facility] [address] [address] [address] oJsh Jacinto MONO # 0.8 103/ul Normal 0.3-0.8 [facility] Comment on above: Performed By: #### H CVPCRR #### [facility] [address] [address] [address] Josh Jacinto Monocytes/100 WBC (Bld) 7.1 % Normal 1.7-12.0 [facility] Comment on above: Performed By: #### H CVPCRR #### [facility] [address] [place] [address] Dr. Josh Jacinto NEUT # 8.1 103/ul Critically high 1.4-6.[address] [facility] Comment on above: Performed By: #### H CVPCRR #### [facility] [address] [place] [address] Dr. Josh Jacinto Neutrophils/100 WBC (Bld) 73.5 % Normal 43.0-75.0 [facility] Comment on above: Performed By: #### H CVPCRR #### [facility] [address] [place] [address] Dr. Josh Jacinto Platelet mean volume (Bld) [Entitic vol] 10.4 fL Normal 9.5-13.5 [facility] Comment on above: Performed By: #### H CVPCRR #### [facility] [address] [place] [address] Dr. Josh Jacinto PLT 329 103/ul Normal 150-450 [facility] Comment on above: Performed By: #### H CVPCRR #### [facility] [address] [place] [address] Dr. Josh Jacinto RBC 4.51 106/ul Normal 4.20-5.40 [facility] Comment on above: Performed By: #### H CVPCRR #### [facility] [address] [place] [address] Dr. Josh Jacinto WBC 11.0 103/ul Normal 4.0-11.0 [facility] Comment on above: Performed By: #### H CVPCRR #### [facility] [address] [place] [address] Dr. Josh Jacinto CULTURE URINEon 10-09-2022 CULTURE URINE Culture Observations: NO GROWTH. Normal [facility] Comment on above: Performed By: #### H CGSUB #### [facility] [address] [place] [address] Dr. Josh Jacinto ER URINE PROFILEon 11-14-202 2 Bilirubin Ql (U) Negative Normal NEGATIVE [facility] Comment on above: Performed By: #### H CVPCRR #### [facility] [address] [place] [address] Dr. Josh Jacinto Clarity (U) CLEAR Normal CLEAR [facility] Comment on above: Performed By: #### H CVPCRR #### [facility] [address] [place] [address] Dr. Josh Jacinto Color (U) LT. YELLOW Normal YELLOW [facility] Comment on above: Performed By: #### H CVPCRR #### [facility] [address] [place] [address] Dr. Josh Jacinto ERUAHD A micrscopic examination will be performed if indicated. Normal [facility] Comment on above: Performed By: #### H CVPCRR #### [facility] [address] [place] [address] Dr. Josh Jacinto Glucose Ql (U) Negative Normal NEGATIVE [facility] Comment on above: Performed By: #### H CVPCRR #### [facility] [address] [place] [address] Dr. Josh Jacinto Hemoglobin Ql (U) TRACE-LYSED Abnormal NEGATIVE [facility] Comment on above: Performed By: #### H CVPCRR #### [facility] [address] [place] [address] Dr. Josh Jacinto Ketones Ql (U) Negative Normal NEGATIVE [facility] Comment on above: Performed By: #### H CVPCRR #### [facility] [address] [place] [address] Dr. Josh Jacinto LEUKOCYTES SMALL Abnormal NEGATIVE [facility] Comment on above: Performed By: #### H CVPCRR #### [facility] [address] [place] [address] Dr. Josh Jacinto Nitrite Ql (U) Negative Normal NEGATIVE [facility] Comment on above: Performed By: #### H CVPCRR #### [facility] [address] [place] [address] Dr. Josh Jacinto pH (U) 6.0 [pH] Normal 5-9 [facility] Comment on above: Performed By: #### H CVPCRR #### [facility] [address] [place] [address] Dr. Josh Jacinto SPEC GRAVITY 1.015 Normal 1.005-<=1.[address] [facility] Comment on above: Performed By: #### H CVPCRR #### [facility] [address] [place] [address] Dr. Josh Jacinto UA PROTEIN Negative Normal NEGATIVE/ TRACE [facility] Comment on above: Performed By: #### H CVPCRR #### [facility] [address] [address] [address] Josh Jacinto UR MICRO IND INDICATED Normal [facility] Comment on above: Performed By: #### H CVPCRR #### [facility] [address] [place] [address] Dr. Josh Jacinto Urobilinogen Qn (U) 0.2 {Pio'U}/dL Normal 0.2 - 1. 0 [facility] Comment on above: Performed By: #### H CVPCRR #### [facility] [address] [place] [address] Dr. Josh Jacinto LIPASEon 10-09-2022 Lipase [Catalytic activity/Vol] 128.0 U/L Normal 73.0-393.0 [facility] Comment on above: Performed By: #### C MP, LIPA, HSTROPN #### [facility] [address] [place] [address] Dr. Josh Jacinto MONOon 10-09-2022 Monocytes (Bld) [#/Vol] Negative Normal NEGATIVE T [facility] Comment on above: Performed By: #### B OX #### [facility] [address] [place] [address] Dr. Josh Jacinto PREG HCG QUALon 10-09-2022 , QUAL Positive Abnormal NEGATIVE [facility] Comment on above: Performed By: #### B OX #### [facility] [address] [place] [address] Dr. Josh Jacinto PROF 14(COMP METB)on 11-14-2 022 Albumin [Mass/Vol] 3.6 g/dL Normal 3.4-5.0 [facility] Comment on above: Performed By: #### C MP LIPA, HSTROPN #### [facility] [address] [place] [address] Dr. Josh Jacinto Albumin/Globulin [Mass ratio] 0.9 {ratio} Normal [facility] Comment on above: Performed By: #### C MP LIPA, HSTROPN #### [facility] [address] [place] [address] Dr. Josh Jacinto ALP [Catalytic activity/Vol] 94 U/L Normal 46-116 [facility] Comment on above: Performed By: #### C MP, LIPA, HSTROPN #### [facility] [address] [place] [address] Dr. Josh Jacinto ALT [Catalytic activity/Vol] 22 U/L Normal 14-59 [facility] Comment on above: Performed By: #### C MP, LIPA, HSTROPN #### [facility] [address] [place] [address] Dr. Josh Jacinto Anion gap [Moles/Vol] 10.9 mmol/L Normal [facility] Comment on above: Performed By: #### C MP, LIPA, HSTROPN #### [facility] [address] [place] [address] Dr. Josh Jacinto AST [Catalytic activity/Vol] 13 U/L Critically low 15-37 [facility] Comment on above: Performed By: #### C MP, LIPA, HSTROPN #### [facility] [address] [place] [address] Dr. Josh Jacinto Bilirubin [Mass/Vol] 0.1 mg/dL Critically low 0.2-1.0 [facility] Comment on above: Performed By: #### C MP, LIPA, HSTROPN #### [facility] [address] [place] [address] Dr. Josh Jacinto Calcium [Mass/Vol] 9.0 mg/dL Normal 8.5-10.1 [facility] Comment on above: Performed By: #### C MP, LIPA, HSTROPN #### [facility] [address] [address] [address] Josh Jacinto Chloride [Moles/Vol] 105 mmol/L Normal 98-107 [facility] Comment on above: Performed By: #### C MP, LIPA, HSTROPN #### [facility] [address] [address] [address] Josh Jacinto CO2 [Moles/Vol] 23.5 mmol/L Normal 21.0-32.0 [facility] Comment on above: Performed By: #### C MP, LIPA, HSTROPN #### [facility] [address] [place] [address] Dr. Josh Jacinto Creatinine [Mass/Vol] 0.68 mg/dL Normal 0.55-1.02 [facility] Comment on above: Performed By: #### C MP, LIPA, HSTROPN #### [facility] [address] [address] [address] Josh Jacinto EGFR-AF BRUNEIAN >60 Normal >=60 [facility] Comment on above: Performed By: #### C MP, LIPA, HSTROPN #### [facility] [address] [place] [address] Dr. Josh Jacinto EGFR-NON AF BRUNEIAN >60 Normal >=60 [facility] Comment on above: Performed By: #### C MP, LIPA, HSTROPN #### [facility] [address] [address] [address] Josh Jacinto Globulin (S) [Mass/Vol] 4.1 g/dL Normal [facility] Comment on above: Performed By: #### C MP, LIPA, HSTROPN #### [facility] [address] [place] [address] Dr. Josh Jacinto Glucose [Mass/Vol] 98 mg/dL Normal 74-106 [facility] Comment on above: Performed By: #### C MP, LIPA, HSTROPN #### [facility] [address] [place] [address] Dr. Josh Jacinto Potassium [Moles/Vol] 3.4 mmol/L Critically low 3.5-5.1 [facility] Comment on above: Performed By: #### C MP, LIPA, HSTROPN #### [facility] [address] [address] [address] Josh Jacinto Protein [Mass/Vol] 7.7 g/dL Normal 6.4-8.2 [facility] Comment on above: Performed By: #### C MP, LIPA, HSTROPN #### [facility] [address] [address] [address] Josh Jacinto Sodium [Moles/Vol] 136 mmol/L Normal 136-145 [facility] Comment on above: Performed By: #### C MP, LIPA, HSTROPN #### [facility] [address] [address] [address] Josh Jacinto Urea nitrogen [Mass/Vol] 14.0 mg/dL Normal 7.0-18.0 [facility] Comment on above: Performed By: #### C MP, LIPA, HSTROPN #### [facility] [address] [address] [address] Josh Jacinto Urea nitrogen/Creatinine [Mass ratio] 20.6 mg/mg Normal [facility] Comment on above: Performed By: #### C MP, LIPA, HSTROPN #### [facility] [address] [address] [address] Josh Jacinto TROPONIN, HIGH SENSITIVITYon 10-09-2022 HSTROP <4.0 Normal 4.0-51.3 [facility] Comment on above: Result Comment: CUT- OFF POINTS HAVE BEEN ESTABLISHED BASED ON THE FOURTH UNIVERSAL DEFINITIONS OF MYOCARDIAL INFARCTION. THE UPPER REFERENCE LIMIT (URL) OF TROPONIN, DEFINED THE 99TH PERCENTILE OF cTnI DISTRIBUTION IN A REFERENCE POPULATION, HAS BEEN CONFIRMED THE DECISION THRESHOLD FOR [place] DIAGNOSIS. Performed By: #### C MP, LIPA, HSTROPN #### [facility] [address] [address] [address] Josh Jacinto URINE MICROSCOPIC ONLYon BACTERIA TRACE Abnormal NONE SEEN [facility] Comment on above: Performed By: #### H CVPCRR #### [facility] [address] [place] [address] Dr. Josh Jacinto Bacteria identified Cx Nom (U) INDICATED Normal [facility] Comment on above: Performed By: #### H CVPCRR #### [facility] [address] [place] [address] Dr. Josh Jacinto CAST NONE SEEN Normal NONE SEEN [facility] Comment on above: Performed By: #### H CVPCRR #### [facility] [address] [place] [address] Dr. Josh Jacinto Crystals LM Nom (Urine sed) NONE SEEN Normal NONE SEEN [facility] Comment on above: Performed By: #### H CVPCRR #### [facility] [address] [place] [address] Dr. Josh Jacinto Epithelial cells LM Ql (Urine sed) MODERATE Abnormal NONE SEEN /RARE [facility] Comment on above: Performed By: #### H CVPCRR #### [facility] [address] [place] [address] Dr. Josh Jacinto MUCOUS NONE SEEN Normal NONE SEEN [facility] Comment on above: Performed By: #### H CVPCRR #### [facility] [address] [place] [address] Dr. Josh Jacinto RBC NONE SEEN Abnormal 0-2 [facility] Comment on above: Performed By: #### H CVPCRR #### [facility] [address] [place] [address] Dr. Josh Jacinto WBC 2-5 Abnormal NONE SEEN [facility] Comment on above: Performed By: #### H CVPCRR #### [facility] [address] [place] [address] Dr. Josh Jacinto ER URINE PROFILEon 2 Bilirubin Ql (U) Negative Normal NEGATIVE [facility] Comment on above: Performed By: #### P REGU, ERUR #### [facility] [address] [place] [address] Dr. Josh Jacinto Clarity (U) CLEAR Normal CLEAR [facility] Comment on above: Performed By: #### P REGU, ERUR #### [facility] [address] [address] [address] Josh Jacinto Color (U) LT. YELLOW Normal YELLOW [facility] Comment on above: Performed By: #### P REGU, ERUR #### [facility] [address] [address] [address] Josh BELCHERD A micrscopic examination will be performed if indicated. Normal [facility] Comment on above: Performed By: #### P REGU, ERUR #### [facility] [address] [address] [address] Josh Jacinto Glucose Ql (U) Negative Normal NEGATIVE [facility] Comment on above: Performed By: #### P REGU, ERUR #### [facility] [address] [place] [address] Dr. Josh Jacinto Hemoglobin Ql (U) Negative Normal NEGATIVE [facility] Comment on above: Performed By: #### P REGU, ERUR #### [facility] [address] [address] [address] Josh Jacinto Ketones Ql (U) Negative Normal NEGATIVE [facility] Comment on above: Performed By: #### P REGU, ERUR #### [facility] [address] [place] [address] Dr. Josh Jacinto LEUKOCYTES Negative Normal NEGATIVE [facility] Comment on above: Performed By: #### P REGU, ERUR #### [facility] [address] [address] [address] Josh Jacinto Nitrite Ql (U) Negative Normal NEGATIVE [facility] Comment on above: Performed By: #### P REGU, ERUR #### [facility] [address] [address] [address] Josh Jacinto pH (U) 6.0 [pH] Normal 5-9 [facility] Comment on above: Performed By: #### P REGU, ERUR #### [facility] [address] [place] [address] Dr. Josh Jacinto SPEC GRAVITY 1.010 Normal 1.005-<=1.025 [facility] Comment on above: Performed By: #### P REGU, ERUR #### [facility] [address] [address] [address] Josh Jacinto UA PROTEIN Negative Normal NEGATIVE/ TRACE [facility] Comment on above: Performed By: #### P REGU, ERUR #### [facility] [address] [address] [address] Josh Jacinto UR MICRO IND NOT INDICATED Normal [facility] Comment on above: Performed By: #### P REGU, ERUR #### [facility] [address] [address] [address] Josh Jacinto Urobilinogen Qn (U) 0.2 {Poi'U}/dL Normal 0.2 - 1. 0 [facility] Comment on above: Performed By: #### P REGU, ERUR #### [facility] [address] [address] [address] Josh Jacinto URon 09-14-2022 , QUAL Negative Normal NEGATIVE [facility] Comment on above: Performed By: #### P REGU, ERUR #### [facility] [address] [place] [address] Dr. Josh Jacinto XR ABD FLAT UP_PA [...] follow-up radiographs and/or CT. Electronically authenticated by: JANIEC KAUFMAN Date: 2022-09-14 02:39 Normal [facility] PAP ACOG PANEL 2: 20 to 28on 07-10-2022 . . Normal [facility] Comment on above: Performed By: #### H CGSUB #### [facility] [address] [address] [address] Josh Jacinto Age Gdln ACOG Testing 20- Normal [facility] Comment on above: Performed By: #### H CGSUB #### [facility] [address] [address] [address] Josh Jacinto DIAGNOSIS: Comment [facility] Comment on above: Result Comment: NEGA TIVE FOR INTRAEPITHELIAL LESION OR MALIGNANCY. Performed By: #### H CGSUB #### [facility] [address] [address] [address] Josh Jacinto Methodology: Comment [facility] Comment on above: Result Comment: This liquid based ThinPrep(R) pap test was screened with the use of an image guided system. Performed By: #### H CGSUB #### [facility] [address] [address] [address] Josh Jacinto Note: Comment [facility] Comment on above: Result Comment: The Pap smear is a screening test designed to aid in the detection of premalignant and malignant conditions of the uterine cervix. It is not a diagnostic procedure and should not be used as the sole means of detecting cervical cancer. Both false-positive and false-negative reports do occur. . Performed By: #### H CGSUB #### [facility] [address] [address] [address] Josh Jacinto Performed by: Comment Normal [facility] Comment on above: Result Comment: Aurora Salazar Showroom Consultant (ASCP) Performed By: #### H CGSUB #### [facility] [address] [address] [address] Josh Jacinto Reflex Criteria: Comment [facility] Comment on above: Result Comment: The HPV DNA reflex criteria were not met with this specimen result therefore, no HPV testing was performed. . Performed By: #### H CGSUB #### [facility] [address] [place], [place] [address] Dr. Josh Jacinto Specimen adequacy: Comment Normal [facility] Comment on above: Result Comment: Sati sfactory for evaluation. Endocervical and/or squamous metaplastic cells (endocervical component) are present. Performed By: #### H CGSUB #### [facility] [address] [place], [place] [address] Dr. Josh Jacinto HCG-BETA SUBUNIT QUANTon hCG,Beta Subunit,Qnt,Serum <1 Normal [facility] Comment on above: Result Comment: Fema le (Non-) 0 - 5 (Postmenopausal) 0 - 8 . Female () Weeks of Gestation 3 6 - 71 4 10 - 750 5 614 - 1017 6 544 - 52509 7 [phone] -[phone] 8 76060 -[phone] 9 23112 -787285 10 81322 -274717 12 11608 -067612 14 03330 - 82140 15 93575 - 48141 16 9560 - 43257 17 3340 - 98144 18 9814 - 87354 Liana ECLIA methodology Performed By: #### H CGSUB #### [facility] [address] [place], [place] [address] Dr. Josh Jacinto US PELVIS AND TRANSVAGon [...] by: AMNA VALLADARES Date: 2022-07-05 16:12 Normal [facility] Cult,Urineon 05-19-2021 Cult,Urine Specimen Description .CLEAN CATCH URINE Special Requests NOT REPORTED Culture NO SIGNIFICANT GROWTH Report Status FINAL 05/19/[address] [facility] Comment on above: Performed By: #### [facility] #### [facility] [address] [place] [address] Maintenance Service Technician: Collin De La Fuente MD Microscopic UrinalysisOrdere d By: Richar Obrien on 05-18-2021 - [facility] Work Phone: Amorphous, UA NOT REPORTED None [facility] Work Phone: Bacteria, UA 2+ Abnormal None [facility] Work Phone: Casts UA NOT REPORTED /LPF [facility] Work Phone: Crystals, UA NOT REPORTED None /HPF [facility] Work Phone: Epithelial Cells UA 5 TO 10 [facility] Work Phone: Interpretation and review of laboratory results Abnormal [facility] Work Phone: Mucus, UA 1+ Abnormal None [facility] Work Phone: Other Observations UA NOT REPORTED NOT REQ. M [facility] Work Phone: RBC, UA None [facility] Work Phone: Renal Epithelial, UA NOT REPORTED 0 /HPF [facility] Work Phone: Trichomonas, UA NOT REPORTED None [facility] Work Phone: WBC, UA 10 TO 20 [facility] Work Phone: Yeast, UA NOT REPORTED None [facility] Work Phone: [facility] Work Phone: UrinalysisOrdered By: Richar Obrien on 05-18-2021 Bilirubin Urine Negative NEGATIVE [facility] Work Phone: Color, UA YELLOW YELLOW [facility] Work Phone: Glucose, Ur Negative NEGATIVE [facility] Work Phone: Interpretation and review of laboratory results Abnormal [facility] Work Phone: Ketones Ql (U) Negative NEGATIVE [facility] [facility] Work Phone: Leukocyte esterase Test strip Ql (U) SMALL Abnormal NEGATIVE [facility] Work Phone: Nitrite, Urine Negative NEGATIVE [facility] Work Phone: pH, UA 6.0 [facility] Work Phone: Protein, UA Negative NEGATIVE [facility] Work Phone: Specific Dunbar, UA >1.030 High [facility] Work Phone: Turbidity UA SLIGHTLY CLOUDY Abnormal CLEAR [facility] Work Phone: Urinalysis Comments NOT REPORTED [facility] Work Phone: Urine Hgb Negative NEGATIVE [facility] Work Phone: Urobilinogen, Urine Normal Normal [facility] Work Phone: [facility] Work Phone: Urinalysis, Routineon 2020 Bilirubin, SemiQt,Ur Negative Normal NEG [facility] Comment on above: Performed By: #### S WCGP #### [employer] [address] [place] [address] [phone] Maintenance Service Technician: Collin De La Fuente MD Blood, Urine Negative Normal NEG [facility] Comment on above: Performed By: #### S WCGP #### [employer] [address] [place] [address] [phone] Maintenance Service Technician: Collin De La Fuente MD Clarity (U) SLIGHTLY CLOUDY Abnormal CLEAR [facility] Comment on above: Performed By: #### S WCGP #### [employer] [address] [place] [address] [phone] Maintenance Service Technician: Collin De La Fuenet MD Color (U) YELLOW Normal YEL [facility] Comment on above: Performed By: #### S WCGP #### [address] [address] Maintenance Service Technician: Collin De La Fuente MD Glucose Ql (U) Negative Normal NEG [facility] Comment on above: Performed By: #### S WCGP #### [address] [address] Maintenance Service Technician: Collin De La Fuente MD Ketones Ql (U) Negative [facility] Comment on above: Performed By: #### S WCGP #### [address] [address] Maintenance Service Technician: Collin De La Fuente MD Leukocyte esterase Test strip Ql (U) SMALL Abnormal NEG [facility] Comment on above: Performed By: #### S WCGP #### [address] [address] Maintenance Service Technician: Collin De La Fuente MD Nitrite,Ur Negative Normal NEG [facility] Comment on above: Performed By: #### S WCGP #### [address] [address] Maintenance Service Technician: Collin De La Fuente MD PH,Ur 6.0 Normal 5.0-9.0 [facility] Comment on above: Performed By: #### S WCGP #### [address] [address] Maintenance Service Technician: Collin De La Fuente MD Protein Ql (U) Negative [facility]G [facility] Comment on above: Performed By: #### S WCGP #### [address] [address] Maintenance Service Technician: Collin De La Fuente MD Spec. Dunbar,Ur >1.030 High 1.010-1.020 [facility] [place] [facility] Comment on above: Performed By: #### S WCGP #### [address] [place] [address] Maintenance Service Technician: Collin De La Fuente MD Urobilinogen,Ur Normal Normal NORM [facility] Comment on above: Performed By: #### S WCGP #### [address] [address] Maintenance Service Technician: Collin De La Fuente MD Comment NOT REPORTED Normal [facility] Comment on above: Performed By: #### S WCGP #### [address] [address] Maintenance Service Technician: Collin De La Fuente MD Urinalysis,Microon 1 ----- Normal [facility] Comment on above: Performed By: #### S WCGP #### [address] [address] Maintenance Service Technician: Collin De La Fuente MD Bacteria 2+ Abnormal NONE [facility] Comment on above: Performed By: #### S WCGP #### [address] [address] Maintenance Service Technician: Collin De La Fuente MD Epithelial cells LM Ql (Urine sed) 5 TO 10 Normal 0-25 [facility] Comment on above: Performed By: #### S WCGP #### [address] [address] Maintenance Service Technician: Collin De La Fuente MD Mucus Strands 1+ Abnormal NONE [facility] Comment on above: Performed By: #### S WCGP #### [facility] [employer] [address] [place] [address] Maintenance Service Technician: Collin De La Fuente MD Urine RBC's None Normal 0-2 [facility] Comment on above: Performed By: #### S WCGP #### [address] [address] Maintenance Service Technician: Collin De La Fuente MD Urine WBC's 10 TO 20 Normal 0-5 [facility] Comment on above: Performed By: #### S WCGP #### [facility] [address] [place] [address] Maintenance Service Technician: Collin De La Fuente MD Amorphous sediment LM Ql (Urine sed) NOT REPORTED Normal NONE [facility] Comment on above: Performed By: #### S WCGP #### [facility] [address] [place] [address] Maintenance Service Technician: Collin De La Fuente MD Casts NOT REPORTED Normal [facility] Comment on above: Performed By: #### S WCGP #### [id number] [place] [address] Maintenance Service Technician: Collin De La Fuente MD Crystals LM Nom (Urine sed) NOT REPORTED Normal [facility] Comment on above: Performed By: #### S WCGP #### [address] [address] Maintenance Service Technician: Collin De La Fuente MD Epithelial, Renal NOT REPORTED Normal [address] [facility] Comment on above: Performed By: #### S WCGP #### [facility] [address] [place] [phone] Maintenance Service Technician: Collin De La Fuente MD Other Observations NOT REPORTED Normal [facility] Comment on above: Performed By: #### S WCGP #### [facility] [address] [place] [address] Maintenance Service Technician: Collin De La Fuente MD Trichomonas NOT REPORTED Normal NONE [facility] Comment on above: Performed By: #### S WCGP #### [facility] [employer] [address] [place] [address] Maintenance Service Technician: Collin De La Fuente MD Yeast NOT REPORTED Normal NONE [facility] Comment on above: Performed By: #### S WCGP #### [facility] [address] [place] [address] Maintenance Service Technician: Collin De La Fuente MD Basic Metab w/rfx MGon 04-14 (cont.) Normal [facility] Comment on above: Result Comment: Aver age GFR for 20-29 years old: 116 mL/min/1.73sq m Chronic Kidney Disease: <60 mL/min/1.73sq m Kidney failure: <15 mL/min/1.73sq m eGFR calculated using average adult body mass. Additional eGFR calculator available at: http://www.RedT/multiple_crcl_2011.htm Performed By: #### B MPX, LIP, LIVP, CDP #### [facility] [address] [place] [address] Maintenance Service Technician: Amna Clements MD Anion gap [Moles/Vol] 12 mmol/L Normal 9-17 [facility] Comment on above: Performed By: #### B MPX, LIP, LIVP, CDP #### [facility] [address] [place] [address] Maintenance Service Technician: Amna Clements MD BUN/CRE Ratio 19 Normal - [facility] Comment on above: Performed By: #### B MPX, LIP, LIVP, CDP #### [facility] [address] [place] [address] Maintenance Service Technician: Amna Clements MD Calcium [Mass/Vol] 8.8 mg/dL Normal 8.6-10.4 [facility] Comment on above: Performed By: #### B MPX, LIP, LIVP, CDP #### [facility] [address] [place] [address] Maintenance Service Technician: Amna Clements MD Chloride [Moles/Vol] 101 mmol/L Normal 98-107 [facility] Comment on above: Performed By: #### B MPX, LIP, LIVP, CDP #### [facility] [address] [place] [address] Maintenance Service Technician: Amna Clements MD CO2 [Moles/Vol] 23 mmol/L Normal 20-31 [facility] Comment on above: Performed By: #### B MPX, LIP, LIVP, CDP #### [facility] [address] [place], [place] [phone] Maintenance Service Technician: Amna Clements MD Creatinine [Mass/Vol] 0.47 mg/dL Low 0.50-0.90 [facility] Comment on above: Performed By: #### B MPX, LIP, LIVP, CDP #### [facility] [address] [place], [place] [phone] Maintenance Service Technician: Amna Clements MD GFR, Amer >60 Normal >60 [facility] Comment on above: Performed By: #### B MPX, LIP, LIVP, CDP #### [facility] [address] [place], [place] [phone] Maintenance Service Technician: Amna Clements MD GFR,non Amer >60 Normal >60 [facility] Comment on above: Performed By: #### B MPX, LIP, LIVP, CDP #### [facility] [address] [place], [place] [phone] Maintenance Service Technician: Amna Clements MD Glucose [Mass/Vol] 106 mg/dL High 70-99 [facility] Comment on above: Performed By: #### B MPX, LIP, LIVP, CDP #### [facility] [address] [place], [place] [phone] Maintenance Service Technician: Amna Clements MD Potassium [Moles/Vol] 3.7 mmol/L Normal 3.7-5.3 [facility] Comment on above: Performed By: #### B MPX, LIP, LIVP, CDP #### [facility] [address] [place], [place] [phone] Maintenance Service Technician: Amna Clements MD Sodium [Moles/Vol] 136 mmol/L Normal 135-144 [facility] Comment on above: Performed By: #### B MPX, LIP, LIVP, CDP #### [facility] [address] [place] [address] Maintenance Service Technician: Amna Clements MD Staging: Normal [facility] Comment on above: Result Comment: Stag e 1: Some kidney damage normal GFR Stage 2: Mild kidney damage GFR 60-89 Stage 3: Moderate kidney damage GFR 30-59 Stage 4: Severe kidney damage GFR 15-29 Stage 5: Severe kidney damage GFR <15 ESRD - chronic treatment by dialysis or transplant Performed By: #### B MPX, LIP, LIVP, CDP #### [facility] [address] [place] [address] Maintenance Service Technician: Amna Clements MD Urea nitrogen [Mass/Vol] 9 mg/dL Normal - [facility] Comment on above: Performed By: #### B MPX, LIP, LIVP, CDP #### [facility] [address] [place] [address] Maintenance Service Technician: Amna Clements MD Basic Metabolic Panel w/ Ref ladi to MGOrdered By: Cisco Lopez on 04-14-2021 Anion gap [Moles/Vol] 12 mmol/L 9 - 17 mmol/L [employer] Phone: Calcium [Mass/Vol] 8.8 mg/dL 8.6 - 10. 4 mg/dL [employer] Phone: Chloride [Moles/Vol] 101 mmol/L 98 - 10 7 mmol/L [employer] Phone: CO2 [Moles/Vol] 23 mmol/L 20 - 31 mmol/L [employer] Phone: Creatinine [Mass/Vol] 0.47 mg/dL Low 0.50 - 0.90 mg/dL [employer] Phone: GFR >60 >60 mL/min [email or web address] Phone: GFR Non- >60 >60 mL/min [employer] Phone: Glucose [Mass/Vol] 106 mg/dL High 70 - 99 mg/dL [facility] [employer] Work Phone: Interpretation and review of laboratory results Abnormal [facility] [email or web address] Phone: Potassium [Moles/Vol] 3.7 mmol/L 3.7 - 5.3 mmol/L [facility] [email or web address] Phone: Sodium [Moles/Vol] 136 mmol/L 135 - 144 mmol/L [facility] [employer] Work Phone: Urea nitrogen (BldV) [Mass/Vol] 9 mg/dL 6 - 20 mg/dL [facility] [email or web address] Phone: Urea nitrogen/Creatinine (Bld) [Mass ratio] 19 [facility] [employer] Work Phone: CBC Auto DifferentialOrdered By: Cisco Lopez on 04-14-2021 Absolute Eos # 0.00 [facility] Work Phone: Absolute Immature Granulocyte 0.00 [facility] [employer] Work Phone: Absolute Lymph # 2.00 [facility] Work Phone: Absolute [place] # 1.78 High [facility] Work Phone: Basophils (Bld) [#/Vol] 0.00 10*3/uL [facility] [employer] Work Phone: Basophils/100 WBC (Bld) 0 % 0 - 2 % M [facility] [employer] Work Phone: Differential Type NOT REPORTED [facility] [email or web address] Phone: Eosinophils/100 WBC (Bld) 0 % Low 1 - 4 % [facility] [email or web address] Phone: Hematocrit (Bld) [Volume fraction] 38.4 % 36.3 - 47.1 % [facility] [email or web address] Phone: Hemoglobin.gastrointest inal spec 1 Ql (Stl) 12.5 g/dL 11.9 - 15.1 g/dL [employer] Phone: Immature granulocytes/100 WBC (Bld) 0 % 0 [employer] Phone: Interpretation and review of laboratory results Abnormal [employer] Phone: Lymphocytes/100 WBC (Bld) 9 % Low 24 - 43 % [employer] Phone: MCH (RBC) [Entitic mass] 29.6 pg 25.2 - 33.5 pg [employer] Phone: MCHC (RBC) [Mass/Vol] 32.6 g/dL 28.4 - 34.8 g/dL [employer] Phone: MCV (RBC) [Entitic vol] 91.0 fL 82.6 - 102.9 fL [employer] Phone: Monocytes/100 WBC (Bld) 8 % 3 - 12 % M [employer] Phone: Morphology Hay (Bld) [Interp] Normal [employer] Phone: NRBC Automated 0.0 0.0 per 100 WBC [employer] Phone: Platelet distribution width (Bld) [Ratio] 13.4 % 11.8 - 14.4 % [employer] Phone: Platelet Estimate NOT REPORTED [employer] Phone: Platelet mean volume (Bld) [Entitic vol] 10.2 fL 8.1 - 13.5 fL [employer] Phone: Platelets (Bld) [#/Vol] 321 10*3/uL [employer] Phone: RBC (Bld) [#/Vol] 4.22 10*6/uL 3.95 - 5.1 1 m/uL [employer] Phone: RBC (Bld) [#/Vol] NOT REPORTED [employer] Phone: Segmented neutrophils/100 WBC (Bld) 83 % High 36 - 65 % [facility] [employer] Work Phone: Segs Absolute 18.42 High [facility] Work Phone: WBC (Bld) [#/Vol] 22.2 10*3/uL High [facility] [employer] Work Phone: WBC (Bld) [#/Vol] NOT REPORTED [facility] Work Phone: [facility] Work Phone: CBC with Diffon 04-14-2021 Abs. Basophil 0.00 k/uL Normal 0.0-0.2 [facility] Comment on above: Performed By: #### S WCGP #### [address] [address] Maintenance Service Technician: Collin De La Fuente MD Abs.Imm.Granulocyte 0.00 k/uL Normal 0.00-0.30 [facility] Comment on above: Performed By: #### S WCGP #### [address] [address] Maintenance Service Technician: Collin De La Fuente MD Abs.Neutrophil (Seg) 18.42 k/uL High 1.50-8.10 [facility] Comment on above: Performed By: #### S WCGP #### [address] [address] Maintenance Service Technician: Collin De La Fuente MD Basophils/100 WBC (Bld) 0 % Normal 0-2 [facility] Comment on above: Performed By: #### S WCGP #### [address] [address] Maintenance Service Technician: Collin De La Fuente MD Eosinophils (Bld) [#/Vol] 0.00 10*3/uL Normal 0.00-0.44 [facility] Comment on above: Performed By: #### S WCGP #### [address] [address] Maintenance Service Technician: Collin De La Fuente MD Eosinophils/100 WBC (Bld) 0 % Low 1-4 [facility] Comment on above: Performed By: #### S WCGP #### [address] [address] Maintenance Service Technician: Collin De La Fuente MD Immature granulocytes/100 WBC (Bld) 0 % Normal 0 [facility] Comment on above: Performed By: #### S WCGP #### [address] [address] Maintenance Service Technician: Collin De La Fuente MD Lymphocytes (Bld) [#/Vol] 2.00 10*3/uL Normal 1.10-3.70 [facility] Comment on above: Performed By: #### S WCGP #### [address] [address] Maintenance Service Technician: Collin De La Fuente MD Lymphocytes/100 WBC (Bld) 9 % Low 24-43 [facility] Comment on above: Performed By: #### S WCGP #### [address] [address] Maintenance Service Technician: Collin De La Fuente MD Monocytes (Bld) [#/Vol] 1.78 10*3/uL High 0.10-1.20 [facility] Comment on above: Performed By: #### S WCGP #### [address] [address] Maintenance Service Technician: Collin De La Fuente MD Monocytes/100 WBC (Bld) 8 % Normal 3-12 M [facility] Comment on above: Performed By: #### S WCGP #### [address] [address] Maintenance Service Technician: Collin De La Fuente MD Morphology Hay (Bld) [Interp] Normal Normal [facility] Comment on above: Performed By: #### S WCGP #### [address] [place] [address] Maintenance Service Technician: Collin De La Fuente MD Neutrophil (Seg) 83 % High 36-65 [facility] Comment on above: Performed By: #### S WCGP #### [address] [address] Maintenance Service Technician: Collin De La Fuente MD Erythrocyte distribution width (RBC) [Ratio] 13.4 % Normal 11.8-14.4 [facility] Comment on above: Performed By: #### S WCGP #### [address] [address] Maintenance Service Technician: Collin De La Fuente MD Hematocrit (Bld) [Volume fraction] 38.4 % Normal 36.3-47.1 [facility] Comment on above: Performed By: #### S WCGP #### [address] [address] Maintenance Service Technician: Collin De La Fuente MD Hemoglobin (Bld) [Mass/Vol] 12.5 g/dL Normal 11.9-15.1 [facility] Comment on above: Performed By: #### S WCGP #### [address] [address] Maintenance Service Technician: Collin De La Fuente MD MCH (RBC) [Entitic mass] 29.6 pg Normal 25.2-33.5 [facility] Comment on above: Performed By: #### S WCGP #### [address] [address] Maintenance Service Technician: Collin De La Fuente MD MCHC (RBC) [Mass/Vol] 32.6 g/dL Normal 28.4-34.8 [facility] Comment on above: Performed By: #### S WCGP #### [address] [address] Maintenance Service Technician: Collin De La Fuente MD MCV (RBC) [Entitic vol] 91.0 fL Normal 82.6-102.9 [facility] Comment on above: Performed By: #### S WCGP #### [facility] [address] [place] [address] Maintenance Service Technician: Collin De La Fuente MD NRBC Automated 0.0 per [address] [facility] Comment on above: Performed By: #### S WCGP #### [address] [address] Maintenance Service Technician: Collin De La Fuente MD Platelet mean volume (Bld) [Entitic vol] 10.2 fL Normal 8.1-13.5 [facility] Comment on above: Performed By: #### S WCGP #### [address] [address] Maintenance Service Technician: Collin De La Fuente MD Platelets (Bld) [#/Vol] 321 10*3/uL Normal 138-453 [facility] Comment on above: Performed By: #### S WCGP #### [address] [address] Maintenance Service Technician: Collin De La Fuente MD RBC (Bld) [#/Vol] 4.22 10*6/uL Normal 3.95-5.11 [facility] Comment on above: Performed By: #### S WCGP #### [address] [address] Maintenance Service Technician: Collin De La Fuente MD WBC (Bld) [#/Vol] 22.2 10*3/uL High 3.5-11.3 [facility] Comment on above: Performed By: #### S WCGP #### [address] [address] Maintenance Service Technician: Collin De La Fuente MD Auto Diff Performed NOT REPORTED Normal [facility] Comment on above: Performed By: #### S WCGP #### [address] [address] Maintenance Service Technician: Collin De La Fuente MD Platelet Estimate NOT REPORTED Normal [facility] Comment on above: Performed By: #### S WCGP #### [employer] [address] [place], [place] [phone] Maintenance Service Technician: Collin De La Fuente MD RBC morphology finding Nom (Bld) NOT REPORTED Normal [facility] Comment on above: Performed By: #### S WCGP #### [employer] [address] [place], [place] [phone] Maintenance Service Technician: Collin De La Fuente MD WBC Morphology NOT REPORTED Normal [facility] Comment on above: Performed By: #### S WCGP #### [facility] [employer] [address] [place], [place] [phone] Maintenance Service Technician: Collin De La Fuente MD Hepatic Function PanelOrdere d By: Cisco Lopez on 04-14-2021 Albumin [Mass/Vol] 3.7 g/dL 3.5 - 5.2 g/dL [employer] Phone: Albumin/Globulin [Mass ratio] 1.1 {ratio} [employer] Phone: ALP (Bld) [Catalytic activity/Vol] 68 U/L 35 - 104 U/L [employer] Phone: ALT [Catalytic activity/Vol] 36 U/L High 5 - 33 U/L [employer] Phone: AST [Catalytic activity/Vol] 37 U/L High <32 [employer] Phone: Bilirubin [Mass/Vol] mg/dL Low 0.3 - 1 .2 mg/dL [employer] Phone: Bilirubin, Indirect CANNOT BE CALCULATED 0.00 - 1.00 mg/dL [employer] Phone: Bilirubin.indirect [Mass/Vol] mg/dL <0.31 mg/dL [employer] Phone: Free PSA/Total PSA [Mass fraction] 7.0 g/dL 6.4 - 8.3 g/dL [employer] Phone: Globulin NOT REPORTED 1.5 - 3.8 g/dL [facility] Phone: Interpretation and review of laboratory results Abnormal [employer] Phone: [employer] Phone: Laboratory - Chemistry and C hemistry - challengeOrdered By: Cisco Lopez on 04-14-2021 GFR/1.73 sq M.predicted MDRD (S/P/Bld) [Vol rate/Area] [facility] Phone: Comment on above: Average GFR for 20-2 9 years old: 116 mL/min/1.73sq m Chronic Kidney Disease: <60 mL/min/1.73sq m Kidney failure: <15 mL/min/1.73sq m eGFR calculated using average adult body mass. Additional eGFR calculator available at: http://www.RedT/multiple_crcl_2012.htm Stage 1: Some kidney damage normal GFR Stage 2: Mild kidney damage GFR 60-89 Stage 3: Moderate kidney damage GFR 30-59 Stage 4: Severe kidney damage GFR 15-29 Stage 5: Severe kidney damage GFR <15 ESRD - chronic treatment by dialysis or transplant Lipaseon 04-14-2021 Lipase [Catalytic activity/Vol] 40 U/L Normal 13-60 [facility] Comment on above: Performed By: #### B MPX, LIP, LIVP, CDP #### [facility] [address] [place] [address] Maintenance Service Technician: Amna Clements MD LipaseOrdered By: Brandy on 04-14-2021 Lipase [Catalytic activity/Vol] 40 U/L 13 - 60 U/L [facility] Phone: Liver Profileon 04-14-2021 Bilirubin [Mass/Vol] mg/dL Low 0.3-1.2 [facility] Comment on above: Performed By: #### B MPX, LIP, LIVP, CDP #### [facility] [address] [place] [phone] Maintenance Service Technician: Amna Clements MD Bilirubin, Indirect CANNOT BE CALCULATED Normal 0.00-[address] [facility] Comment on above: Performed By: #### B MPX, LIP, LIVP, CDP #### [facility] [address] [place], [place] [phone] Maintenance Service Technician: Amna Clements MD Albumin [Mass/Vol] 3.7 g/dL Normal 3.5-5.2 [facility] Comment on above: Performed By: #### B MPX, LIP, LIVP, CDP #### [facility] [address] [place], [place] [phone] Maintenance Service Technician: Amna Clements MD Albumin/Glob Ratio 1.1 Normal 1.0-2.5 [facility] Comment on above: Performed By: #### B MPX, LIP, LIVP, CDP #### [facility] [address] [place], [place] [phone] Maintenance Service Technician: Amna Clements MD Alkaline Phos 68 U/L Normal 35-104 [facility] Comment on above: Performed By: #### B MPX, LIP, LIVP, CDP #### [facility] [address] [place] [address] [address] [place], [place] [phone] Maintenance Service Technician: Amna Clements MD ALT [Catalytic activity/Vol] 36 U/L High 5-33 [facility] Comment on above: Performed By: #### B MPX, LIP, LIVP, CDP #### [facility] [address] [place], [place] [phone] Maintenance Service Technician: Amna Clements MD AST [Catalytic activity/Vol] 37 U/L High <32 [facility] Comment on above: Performed By: #### B MPX, LIP, LIVP, CDP #### [facility] [address] [place], [place] [phone] Maintenance Service Technician: Amna Clements MD Bilirubin.indirect [Mass/Vol] mg/dL Normal <0.31 [facility] Comment on above: Performed By: #### B MPX, LIP, LIVP, CDP #### [facility] [address] [place] [address] Maintenance Service Technician: Amna Clements MD Protein [Mass/Vol] 7.0 g/dL Normal 6.4-8.3 [facility] Comment on above: Performed By: #### B MPX, LIP, LIVP, CDP #### [facility] [address] [place] [address] Maintenance Service Technician: Amna Clements MD Globulin Fraction NOT REPORTED Normal 1.5-3.8 [facility] Comment on above: Performed By: #### B MPX, LIP, LIVP, CDP #### [facility] [address] [place] [address] Maintenance Service Technician: Amna Clements MD Microscopic UrinalysisOrdere d By: Cisco Lopez on 04-14-2021 - [facility] Work Phone: Amorphous, UA NOT REPORTED None [facility] Work Phone: Bacteria, UA TRACE Abnormal None [facility] Work Phone: Casts UA NOT REPORTED /LPF [facility] Work Phone: Crystals, UA NOT REPORTED None /HPF [facility] Work Phone: Epithelial Cells UA 10 TO 20 [facility] Work Phone: Interpretation and review of laboratory results Abnormal [facility] Work Phone: Mucus, UA TRACE Abnormal None [facility] Work Phone: Other Observations UA NOT REPORTED NOT REQ. M [facility] Work Phone: RBC, UA 0 TO 2 [facility] Work Phone: Renal Epithelial, UA NOT REPORTED 0 /HPF [facility] [employer] Work Phone: Trichomonas, UA NOT REPORTED None [facility] Work Phone: WBC, UA 0 TO 2 [facility] [employer] Work Phone: Yeast, UA NOT REPORTED None [facility] [employer] Work Phone: [facility] [employer] Work Phone: No Panel InformationOrdered By: Cisco Lopez on 04-14-2021 [facility] [employer] Work Phone: UA w/Reflex Cultureon 2020 Bilirubin, SemiQt,Ur Negative Normal NEG [facility] Comment on above: Performed By: #### S WCGP #### [facility] [place] [address] Maintenance Service Technician: Collin De La Fuente MD Blood, Urine Negative Normal NEG [facility] Comment on above: Performed By: #### S WCGP #### [facility] [address] [place] [address] Maintenance Service Technician: Collin De La Fuente MD Clarity (U) CLEAR Normal CLEAR [facility] Comment on above: Performed By: #### S WCGP #### [facility] [place] [address] Maintenance Service Technician: Collin De La Fuente MD Color (U) YELLOW Normal YEL [facility] Comment on above: Performed By: #### S WCGP #### [employer] [address] [place] [address] Maintenance Service Technician: Collin De La Fuente MD Glucose Ql (U) Negative Normal NEG [facility] in Hospital Comment on above: Performed By: #### S WCGP #### [facility] [place] [address] Maintenance Service Technician: Collin De La Fuente MD Ketones Ql (U) TRACE Abnormal NEG [facility] in Hospital Comment on above: Performed By: #### S WCGP #### [id number] [place] [address] Maintenance Service Technician: Collin De La Fuente MD Leukocyte esterase Test strip Ql (U) Negative Normal NEG [facility] Comment on above: Performed By: #### S WCGP #### [address] [address] Maintenance Service Technician: Collin De La Fuente MD Nitrite,Ur Negative Normal NEG [facility] Comment on above: Performed By: #### S WCGP #### [address] [address] Maintenance Service Technician: Collin De La Fuente MD PH,Ur 5.5 Normal 5.0-9.0 [facility] Comment on above: Performed By: #### S WCGP #### [address] [address] Maintenance Service Technician: Collin De La Fuente MD Protein Ql (U) TRACE Abnormal NEG [facility] Comment on above: Performed By: #### S WCGP #### [address] [address] Maintenance Service Technician: Collin De La Fuente MD Spec. Dunbar,Ur >1.030 High 1.010-1.020 [facility] [place] [facility] Comment on above: Performed By: #### S WCGP #### [address] [address] Maintenance Service Technician: Collin De La Fuente MD Urobilinogen,Ur Normal Normal NORM [facility] Comment on above: Performed By: #### S WCGP #### [address] [address] Maintenance Service Technician: Collin De La Fuente MD Comment NOT REPORTED Normal [facility] Comment on above: Performed By: #### S WCGP #### [address] [address] Maintenance Service Technician: Collin De La Fuente MD Urinalysis Reflex to Culture Ordered By: Cisco Lopez on 04-14-2021 Bilirubin Urine Negative NEGATIVE [facility] Work Phone: Color, UA YELLOW YELLOW [facility] [employer] Work Phone: Glucose, Ur Negative NEGATIVE [facility] [employer] Work Phone: Interpretation and review of laboratory results Abnormal [facility] [employer] Work Phone: Ketones Ql (U) TRACE Abnormal NEGATIVE [facility] Work Phone: Leukocyte esterase Test strip Ql (U) Negative NEGATIVE [facility] [employer] Work Phone: Nitrite, Urine Negative NEGATIVE [facility] Work Phone: pH, UA 5.5 [facility] [employer] Work Phone: Protein, UA TRACE Abnormal NEGATIVE [facility] [employer] Work Phone: Specific Dunbar, UA >1.030 High [facility] Work Phone: Turbidity UA CLEAR CLEAR [facility] [employer] Work Phone: Urinalysis Comments NOT REPORTED [facility] Work Phone: Urine Hgb Negative NEGATIVE [facility] [employer] Work Phone: Urobilinogen, Urine Normal Normal [facility] [employer] Work Phone: [facility] [employer] Work Phone: Urinalysis,Microon 1 ----- Normal [facility] Comment on above: Performed By: #### U MICAO, UA #### [facility] [address] [place] [address] Maintenance Service Technician: Amna Clements MD Bacteria TRACE Abnormal NONE [facility] Comment on above: Performed By: #### U MICAO, UA #### [facility] [address] [place] [address] Maintenance Service Technician: Amna Clements MD Epithelial cells LM Ql (Urine sed) 10 TO 20 Normal 0-25 [facility] Comment on above: Performed By: #### U MICAO, UA #### [facility] [address] [place], [place] [phone] Maintenance Service Technician: Amna Clements MD Mucus Strands TRACE Abnormal [facility] Comment on above: Performed By: #### U MICAO, UA #### [facility] [address] [place], [place] [phone] Maintenance Service Technician: Amna Clements MD Urine RBC's 0 TO 2 Normal 0-2 [facility] Comment on above: Performed By: #### U ROSAO, UA #### [facility] [address] [place], [place] [phone] Maintenance Service Technician: Amna Clements MD Urine WBC's 0 TO 2 Normal 0-5 [facility] Comment on above: Performed By: #### U ROSAO, UA #### [facility] [address] [place], [place] [phone] Maintenance Service Technician: Amna Clements MD Amorphous sediment LM Ql (Urine sed) NOT REPORTED Normal [facility] Comment on above: Performed By: #### U MICAO, UA #### [facility] [address] [place], [place] [phone] Maintenance Service Technician: Amna Clements MD Casts NOT REPORTED Normal [facility] Comment on above: Performed By: #### U MICAO, UA #### [facility] [address] [place], [place] [phone] Maintenance Service Technician: Amna Clements MD Crystals LM Nom (Urine sed) NOT REPORTED Normal [facility] Comment on above: Performed By: #### U MICAO, UA #### [facility] [address] [place], [place] [phone] Maintenance Service Technician: Amna Clements MD Epithelial, Renal NOT REPORTED Normal 0 [facility] Comment on above: Performed By: #### U MICAO, UA #### [facility] [address] [place], [place] [phone] Maintenance Service Technician: Amna Clements MD Other Observations NOT REPORTED Normal NREQ [facility] Comment on above: Performed By: #### U MICAO, UA #### [facility] [address] [place], [place] [phone] Maintenance Service Technician: Amna Clements MD Trichomonas NOT REPORTED Normal [facility] Comment on above: Performed By: #### U MICAO, UA #### [facility] [address] [place] [address] Maintenance Service Technician: Amna Clements MD Yeast NOT REPORTED Normal [facility] Comment on above: Performed By: #### U MICAO, UA #### [facility] [address] [place], [place] [phone] Maintenance Service Technician: Amna Clements MD D-Dimer Teston 03-24-2021 D-Dimer Test 0.44 mg/L FEU Normal 0.00-0.59 [facility] Comment on above: Result Comment: When combined [...] with distal DVT. Performed By: #### S WCGP #### [facility] [employer] [address] [place] [address] Maintenance Service Technician: Collin De La Fuente MD D-Dimer, QuantitativeOrdered By: Lidia Núñez on 03-23-2021 D-Dimer, Quant 0.44 [facility] Work Phone: Comment on above: When [...] 03-11 Chlamydia Probe Negative Normal NEG [facility] Comment on above: Result Comment: CHLA MYDIA [...] target. Performed By: #### S WCGP #### [address] [address] Maintenance Service Technician: Collin De La Fuente MD Gonorrhea Probe Negative Normal NEG [facility] Comment on above: Result Comment: NEIS SERIA [...] target. Performed By: #### S WCGP #### [address] [address] Maintenance Service Technician: Collin De La Fuente MD Cult,Urineon 03-11-2021 Cult,Urine Specimen Description .CLEAN CATCH URINE Special Requests NOT REPORTED Culture NO SIGNIFICANT GROWTH Report Status FINAL 03/11/[address] [facility] Comment on above: Performed By: #### U RC #### [address] [address] Maintenance Service Technician: Collin De La Fuente MD [facility] [address] [place] [address] [place] [address] Maintenance Service Technician: Amna Clements MD HCG, ,Urineon 03-10 Beta HCG ( test) Ql (U) Positive Abnormal NEG [facility] Comment on above: Result Comment: If HCG results do not concur with clinical observations, additional testing to confirm result is recommended. This test is not labeled for use as a tumor marker. [facility] has confirmed the use of plasma for this test. This has not been cleared or approved by the U.S. Food and Drug Administration. The FDA has determined that such clearance is not necessary. Performed By: #### S WCGP #### [address] [address] Maintenance Service Technician: Collin De La Fuente MD Trichomonas/Wet Prepon 03-10 Trichomonas/Wet Prep Specimen Descriptio n .VAGINA Special Requests NOT REPORTED Direct Exam NO TRICHOMONAS SEEN NO YEAST OBSERVED RARE CLUE CELLS SEEN Report Status FINAL 03/10/[address] [facility] Comment on above: Performed By: #### W P #### [facility] [address] [place] [address] Maintenance Service Technician: Amna Clements MD UA w/Reflex Cultureon 2020 Acetoacetic Acid,Ur Negative Normal [facility] Comment on above: Performed By: #### S WCGP #### [address] [address] Maintenance Service Technician: Collin De La Fuente MD Bilirubin, SemiQt,Ur Negative Normal [facility] Comment on above: Performed By: #### S WCGP #### [address] [address] Maintenance Service Technician: Collin De La Fuente MD Color (U) YELLOW Normal YEL [facility] Comment on above: Performed By: #### S WCGP #### [address] [address] Maintenance Service Technician: Collin De La Fuente MD Glucose Ql (U) Negative Normal [facility] Comment on above: Performed By: #### S WCGP #### [address] [address] Maintenance Service Technician: Collin De La Fuente MD Hemoglobin, Ur Negative Normal [facility] Comment on above: Performed By: #### S WCGP #### [address] [address] Maintenance Service Technician: Collin De La Fuente MD Leukocyte esterase Test strip Ql (U) LARGE Abnormal [facility] Comment on above: Performed By: #### S WCGP #### [address] [address] Maintenance Service Technician: Collin De La Fuente MD Nitrite,Ur Negative Normal [facility] Comment on above: Performed By: #### S WCGP #### [address] [place] [address] Maintenance Service Technician: Collin De La Fuente MD PH,Ur 7.5 Normal 5.0-9.0 [facility] Comment on above: Performed By: #### S WCGP #### [address] [address] Maintenance Service Technician: Collin De La Fuente MD Protein Ql (U) Negative Normal NEG [facility] Comment on above: Performed By: #### S WCGP #### [address] [address] Maintenance Service Technician: Collin De La Fuente MD Spec. Dunbar,Ur 1.020 Normal 1.010-1.020 [facility] [place] [facility] Comment on above: Performed By: #### S WCGP #### [address] [address] Maintenance Service Technician: Collin De La Fuente MD Turbidity CLOUDY Abnormal CLEAR [facility] Comment on above: Performed By: #### S WCGP #### [address] [address] Maintenance Service Technician: Collin De La Fuente MD Urobilinogen,Ur Normal Normal NORM [facility] Comment on above: Performed By: #### S WCGP #### [address] [address] Maintenance Service Technician: Collin De La Fuente MD Comment NOT REPORTED Normal [facility] Comment on above: Performed By: #### S WCGP #### [address] [address] Maintenance Service Technician: Collin De La Fuente MD Urinalysis,Microon 1 ----- Normal [facility] Comment on above: Performed By: #### S WCGP #### [address] [address] Maintenance Service Technician: Collin De La Fuente MD Amorphous sediment LM Ql (Urine sed) 1+ Abnormal NONE [facility] Comment on above: Performed By: #### S WCGP #### [address] [address] Maintenance Service Technician: Collin De La Fuente MD Bacteria 3+ Abnormal NONE [facility] Comment on above: Performed By: #### S WCGP #### [address] [address] Maintenance Service Technician: Collin De La Fuente MD Epithelial cells LM Ql (Urine sed) 20 TO 50 Normal 0-25 [facility] Comment on above: Performed By: #### S WCGP #### [address] [address] Maintenance Service Technician: Collin De La Fuente MD Urine RBC's None Normal 0-2 [facility] Comment on above: Performed By: #### S WCGP #### [address] [address] Maintenance Service Technician: Collin De La Fuente MD Urine WBC's 10 TO 20 Normal 0-5 [facility] Comment on above: Performed By: #### S WCGP #### [address] [address] Maintenance Service Technician: Collin De La Fuente MD Casts NOT REPORTED Normal [facility] Comment on above: Performed By: #### S WCGP #### [address] [address] Maintenance Service Technician: Collin De La Fuente MD Crystals LM Nom (Urine sed) NOT REPORTED Normal [facility] Comment on above: Performed By: #### S WCGP #### [address] [address] Maintenance Service Technician: Collin De La Fuente MD Epithelial, Renal NOT REPORTED Normal 0 [facility] Comment on above: Performed By: #### S WCGP #### [address] [address] Maintenance Service Technician: Collin De La Fuente MD Mucus Strands NOT REPORTED Normal [facility] Comment on above: Performed By: #### S WCGP #### [facility] [address] [place] [address] Maintenance Service Technician: Collin De La Fuente MD Other Observations NOT REPORTED Normal [facility] Comment on above: Performed By: #### S WCGP #### [facility] [address] [place] [address] Maintenance Service Technician: Collin De La Fuente MD Trichomonas NOT REPORTED Normal [facility] Comment on above: Performed By: #### S WCGP #### [address] [address] Maintenance Service Technician: Collin De La Fuente MD Yeast NOT REPORTED Normal [facility] Comment on above: Performed By: #### S WCGP #### [address] [address] Maintenance Service Technician: Collin De La Fuente MD Cult,Urineon 03-02-2021 Cult,Urine Specimen Description .CLEAN CATCH URINE Special Requests NOT REPORTED Culture NO SIGNIFICANT GROWTH Report Status FINAL 03/02/[address] [facility] Comment on above: Performed By: #### U RC #### [address] [address] Maintenance Service Technician: Collin De La Fuente MD [facility] [address] [place] [address] [place] [address] Maintenance Service Technician: Amna Clements MD C. Trachomatis, External Res ultOrdered By: Historical Provider on 03-01-2021 C. Trachomatis, External Result Negative [facility] [email or web address] Phone: Comment on above: William Joel RN/confirmed with Igor Kinsey RN N. Gonorrhoeae, External Res ultOrdered By: Historical Provider on 03-01-2021 N. Gonorrhoeae, External Result Negative [facility] [email or web address] Phone: Comment on above: R [place] RN/confirmed with Igor Kinsey RN No Panel InformationOrdered By: Historical Provider on 03-01-2021 [place] Work Phone: Microscopic Urinalysison Amorphous, UA NOT REPORTED None [facility] Work Phone: Bacteria, UA NOT REPORTED None [facility] Work Phone: Casts UA NOT REPORTED /LPF [facility] Work Phone: Crystals, UA NOT REPORTED None /HPF [facility] Work Phone: Epithelial Cells UA 50 TO 100 [facility] Work Phone: Mucus, UA NOT REPORTED None [facility] [employer] Work Phone: Other Observations UA NOT REPORTED NOT REQ. M [facility] [employer] Work Phone: RBC (U) [#/Vol] 0 TO 2 [facility] Work Phone: Renal Epithelial, UA NOT REPORTED 0 /HPF [facility] Work Phone: Trichomonas, UA NOT REPORTED None [facility] [employer] Work Phone: WBC, UA 20 TO 50 [facility] [employer] Work Phone: Yeast, UA NOT REPORTED None [facility] [employer] Work Phone: - [facility] Work Phone: Otheron 02-28-2021 Living intrauterine with an estimated gestational age of 13 weeks and 1 day by current ultrasound [facility] Work Phone: Dario, Mhpn Incoming Radiant Results From [facility] - 02/28/2021 1:48 PM EDT EXAMINATION: TRANSABDOMINAL [...] posteriorly to the right. Pole: Single pole [place] Rump Length: 6.8 cm Heart Rate: 160 [...] weeks and 1 day by current ultrasound [employer] Phone: EXAMINATION: TRANSABDOMINAL FIRST TRIMESTER OBSTETRIC PELVIC [...] posteriorly to the right. Pole: Single pole [place] Rump Length: 6.8 cm Heart Rate: 160 [...] days Estimated Due Date: 09/04/2021, 08/30/2021 respectively [employer] Phone: US DUP ABD PEL RETRO SCROT [...] posteriorly to the right. Pole: Single pole [place] Rump Length: 6.8 cm Heart Rate: 160 [...] Mariano Min MD 02/28/[address] [facility] US OB LESS THAN 14 WEEKS [...] posteriorly to the right. Pole: Single pole [place] Rump Length: 6.8 cm Heart Rate: 160 [...] Mariano Min MD 02/28/[address] [facility] Urinalysis, Routineon 2020 Acetoacetic Acid,Ur Negative Normal NEG [facility] Comment on above: Performed By: #### U ROSAO, UA #### [facility] [address] [place] [address] [place] [address] Maintenance Service Technician: Amna Clements MD Bilirubin, SemiQt,Ur Negative Normal [facility] Comment on above: Performed By: #### U ROSAO, UA #### [facility] [address] [place] [address] [place] [address] Maintenance Service Technician: Amna Clements MD Color (U) YELLOW Normal YEL [facility] Comment on above: Performed By: #### U ROSAO, UA #### [facility] [address] [place], [place] [phone] Maintenance Service Technician: Amna Clements MD Glucose Ql (U) Negative Normal NEG [facility] Comment on above: Performed By: #### U ROSAO, UA #### [facility] [address] [place] [address] Maintenance Service Technician: Amna Clements MD Hemoglobin, Ur Negative Normal [facility] Comment on above: Performed By: #### U MICAO, UA #### [facility] [address] [place], [place] [address]83 Maintenance Service Technician: Amna Clements MD Leukocyte esterase Test strip Ql (U) MODERATE Abnormal NEG [facility] Comment on above: Performed By: #### U MICAO, UA #### [facility] [address] [place], [place] [phone] Maintenance Service Technician: Amna Clements MD Nitrite,Ur Negative Normal NEG [facility] Comment on above: Performed By: #### U MICAO, UA #### [facility] [address] [place], [place] [address] Maintenance Service Technician: Amna Clements MD PH,Ur 7.5 Normal 5.0-9.0 [facility] Comment on above: Performed By: #### U MICAO, UA #### [facility] [address] [place] [address] [address] [place], [place] 6[address]83 Maintenance Service Technician: Amna Clements MD Protein Ql (U) Negative Normal NEG [facility] Comment on above: Performed By: #### U MICAO, UA #### [address] [place], [place] [address]83 Maintenance Service Technician: Amna Clemetns MD Spec. Dunbar,Ur 1.020 Normal 1.010-1.020 [facility] [place] [facility] Comment on above: Performed By: #### U MICAO, UA #### [facility] [address] [place], [place] [phone] Maintenance Service Technician: Amna Clements MD Turbidity CLEAR Normal CLEAR [facility] Comment on above: Performed By: #### U MICAO, UA #### [facility] [address] [place], [place] [address]383 Maintenance Service Technician: Amna Clements MD Urobilinogen,Ur Normal Normal NORM [facility] Comment on above: Performed By: #### U MICAO, UA #### [facility] [address] [place] [address] Maintenance Service Technician: Amna Clements MD Comment NOT REPORTED Normal [facility] Comment on above: Performed By: #### U NILAM UA #### [facility] [address] [place] [address] Maintenance Service Technician: Amna Clements MD Urinalysis, reflex to micros copicon 02-28-2021 Bilirubin Urine Negative NEGATIVE [facility] Work Phone: Color, UA YELLOW YELLOW [facility] Work Phone: Glucose, Ur Negative NEGATIVE [facility] Work Phone: Interpretation and review of laboratory results Abnormal [facility] Work Phone: Ketones Ql (U) Negative NEGATIVE [facility] Work Phone: Leukocyte esterase Test strip Ql (U) MODERATE Abnormal NEGATIVE [facility] Work Phone: Nitrite, Urine Negative NEGATIVE [facility] Work Phone: pH, UA 7.5 [facility] Work Phone: Protein (U) [Mass/Vol] Negative NEGATIVE [facility] Work Phone: Specific Dunbar, UA 1.020 [facility] Work Phone: Turbidity UA CLEAR CLEAR [facility] Work Phone: Urinalysis Comments NOT REPORTED [facility] Work Phone: Urine Hgb Negative NEGATIVE [facility] Work Phone: Urobilinogen, Urine Normal Normal [facility] Work Phone: Urinalysis,Microon 1 ----- Normal [facility] Comment on above: Performed By: #### U NILAM UA #### [facility] [address] [place] [address] Maintenance Service Technician: Amna Clements MD Epithelial cells LM Ql (Urine sed) 50 TO 100 Normal 0-25 [facility] Comment on above: Performed By: #### U MICAO, UA #### [facility] [address] [place], [place] [id number] Maintenance Service Technician: Amna Clements MD Urine RBC's 0 TO 2 Normal 0-2 [facility] Comment on above: Performed By: #### U MICAO, UA #### [facility] [address] [place] [address] Maintenance Service Technician: Amna Clements MD Urine WBC's 20 TO 50 Normal 0-5 [facility] Comment on above: Performed By: #### U MICAO, UA #### [facility] [address] [place], [place] [id number] Maintenance Service Technician: Amna Clements MD Amorphous sediment LM Ql (Urine sed) NOT REPORTED Normal [facility] Comment on above: Performed By: #### U MICAO, UA #### [facility] [address] [place], [place] [id number] Maintenance Service Technician: Amna Clements MD Bacteria NOT REPORTED Normal [facility] Comment on above: Performed By: #### U MICAO, UA #### [facility] [address] [place], [place] [phone] Maintenance Service Technician: Amna Clements MD Casts NOT REPORTED Normal [facility] Comment on above: Performed By: #### U MICAO, UA #### [facility] [address] [place], [place] [id number] Maintenance Service Technician: Amna Clements MD Crystals LM Nom (Urine sed) NOT REPORTED Normal [facility] Comment on above: Performed By: #### U MICAO, UA #### [facility] [address] [place], [place] [id number] Maintenance Service Technician: Amna Clements MD Epithelial, Renal NOT REPORTED Normal 0 [facility] Comment on above: Performed By: #### U MICAO, UA #### [facility] [address] [place], [place] [phone] Maintenance Service Technician: Amna Clements MD Mucus Strands NOT REPORTED Normal NONE [facility] Comment on above: Performed By: #### U ROSAO, UA #### [facility] [address] [place] [address] Maintenance Service Technician: Amna Clements MD Other Observations NOT REPORTED Normal NREQ [facility] Comment on above: Performed By: #### U ROSAO, UA #### [facility] [address] [place] [address] Maintenance Service Technician: Amna Clements MD Trichomonas NOT REPORTED Normal NONE [facility] Comment on above: Performed By: #### U ROSAO, UA #### [facility] [address] [place], [place] [phone] Maintenance Service Technician: Amna Clements MD Yeast NOT REPORTED Normal NONE [facility] Comment on above: Performed By: #### U MICAO, UA #### [facility] [address] [place], [place] [phone] Maintenance Service Technician: Amna Clements MD ABO, External ResultOrdered By: Historical Provider on 02-17-2021 ABO, External Result AB [facility] [employer] Phone: Comment on above: William Joel RN/confirmed with Igor Kinsey RN HIV, External ResultOrdered By: Historical Provider on 02-17-2021 HIV, External Result Non-Reactive [facility] [email or web address] Phone: Comment on above: William Joel RN/confirmed with Igor Kinsey RN Hepatitis B, External Result Ordered By: Historical Provider on 02-17-2021 Hep B, External Result Negative [facility] [email or web address] Phone: Comment on above: William Joel RN/confirmed with Igor Kinsey RN Hepatitis C Antibody, Senior Materials Analyst al ResultOrdered By: Historical Provider on 02-17-2021 Hepatitis C Antibody, External Result Negative [employer] Phone: Comment on above: William Joel RN/confirmed with Igor Kinsey RN No Panel InformationOrdered By: Historical Provider on 02-17-2021 [employer] Phone: RPR, External LabOrdered By: Historical Provider on 02-17-2021 RPR, External Result Non-Reactive [employer] Phone: Comment on above: William Joel RN/confirmed with Igor Kinsey RN Rh Factor, External ResultOr dered By: Historical Provider on 02-17-2021 Rh Factor, External Result Positive [employer] Phone: Comment on above: William Joel RN/confirmed with Igor Kinsey RN Rubella Titer, External Resu ltOrdered By: Historical Provider on 02-17-2021 Rubella Titer, External Result immune [employer] Phone: Comment on above: William Joel RN/confirmed with Igor Kinsey RN Vital Signs Date Time Vital Sign Value Performing Clinician Facility 12-24-2024 15:37-0500 Body mass index (BMI) [Ratio] 33.33 kg/m2 [employer] Work Phone: [facility] 12-24-2024 15:37-0500 Body weight 80.02 kg [employer] Work Phone: [facility] 12-24-2024 15:37-0500 Diastolic blood pressure 84 mm[Hg] [employer] Work Phone: [facility] 12-24-2024 15:37-0500 Systolic blood pressure 120 mm[Hg] [employer] Work Phone: [facility] 12-18-2024 11:59-0500 Body mass index (BMI) [Ratio] 33.22 kg/m2 Quynh WILDER Work Phone: [facility] 12-18-2024 11:59-0500 Body weight 79.74 kg Quynh Christina PA Work Phone: [facility] 12-18-2024 11:59-0500 Diastolic blood pressure 74 mm[Hg] Quynh Christina PA Work Phone: [facility] 12-18-2024 11:59-0500 Systolic blood pressure 120 mm[Hg] Quynh [place] PA Work Phone: [facility] 12-01-2024 15:57-0500 Body mass index (BMI) [Ratio] 32.33 kg/m2 Clyde Leslie DO Work Phone: [facility] 12-01-2024 15:57-0500 Body weight 77.62 kg Clyde Leslie DO Work Phone: [facility] 12-01-2024 15:57-0500 Diastolic blood pressure 78 mm[Hg] Clyde Leslie DO Work Phone: [facility] 12-01-2024 15:57-0500 Systolic blood pressure 118 mm[Hg] Clyde Leslie DO Work Phone: [facility] 11-12-2024 15:02-0500 Body mass index (BMI) [Ratio] 32.31 kg/m2 Quynh Christina PA Work Phone: [facility] 11-12-2024 15:02-0500 Body weight 77.56 kg Quynh [place] PA Work Phone: [facility] 11-12-2024 15:02-0500 Diastolic blood pressure 72 mm[Hg] Quynh [place] PA Work Phone: [facility] 11-12-2024 15:02-0500 Systolic blood pressure 118 mm[Hg] Quynh Christina PA Work Phone: [facility] 10-15-2024 15:16-0500 Body mass index (BMI) [Ratio] 31.93 kg/m2 Quynh Christina PA Work Phone: [facility] 10-15-2024 15:16-0500 Body weight 76.66 kg Quynh Christina PA Work Phone: [facility] 10-15-2024 15:16-0500 Diastolic blood pressure 72 mm[Hg] Quynh WILDER Work Phone: [facility] 10-15-2024 15:16-0500 Systolic blood pressure 120 mm[Hg] Quynh WILDER Work Phone: [facility] 08-13-2024 16:03-0400 Body height 154.9 cm Jamila Velez MD Work Phone: [facility] 08-13-2024 16:03-0400 Body mass index (BMI) [Ratio] 29.48 kg/m2 Jamila Velez MD Work Phone: [facility] 08-13-2024 16:03-0400 Body weight 70.76 kg Jamila Velez MD Work Phone: [facility] 08-13-2024 16:03-0400 Diastolic blood pressure 78 mm[Hg] Jamila Velez MD Work Phone: [facility] 08-13-2024 16:03-0400 Heart rate 124 /min Jamila Velez MD Work Phone: [facility] 08-13-2024 16:03-0400 Respiratory rate 18 /min Jamila Velez MD Work Phone: [facility] 08-13-2024 16:03-0400 SaO2% (BldA) [Mass fraction] 99 % Jamila Velez MD Work Phone: [facility] 08-13-2024 16:03-0400 Systolic blood pressure 124 mm[Hg] Jamila Velez MD Work Phone: [facility] 07-21-2024 13:50-0400 Body mass index (BMI) [Ratio] 29.29 kg/m2 Clyde Leslie DO Work Phone: [facility] 07-21-2024 13:50-0400 Body weight 70.31 kg Clyde Leslie DO Work Phone: [facility] 07-21-2024 13:50-0400 Diastolic blood pressure 70 mm[Hg] Clyde Leslie DO Work Phone: [facility] 07-21-2024 13:50-0400 Systolic blood pressure 112 mm[Hg] Clyde Nelson DO Work Phone: [facility] 06-16-2021 23:58-0400 Diastolic blood pressure 62 mm[Hg] Richar Obrien HEAD STOCK TRANSFER CLERK - CNM Work Phone: [facility] Work Phone: 06-16-2021 23:58-0400 Heart rate 91 /min Richar Obrien HEAD STOCK TRANSFER CLERK - CNM Work Phone: [facility] Work Phone: 06-16-2021 23:58-0400 Respiratory rate 16 /min Richar Obrien HEAD STOCK TRANSFER CLERK - CNM Work Phone: [facility] Work Phone: 06-16-2021 23:58-0400 Systolic blood pressure 107 mm[Hg] Richar Obrien HEAD STOCK TRANSFER CLERK - CNM Work Phone: [facility] Work Phone: 06-16-2021 20:33-0400 Body temperature 97.7 [degF] Richar Obrien HEAD STOCK TRANSFER CLERK - CNM Work Phone: [facility] Work Phone: 05-24-2021 23:40-0400 Body temperature 97.9 [degF] Rema Pool HEAD STOCK TRANSFER CLERK - CNM Work Phone: [facility] Work Phone: 05-24-2021 23:40-0400 Respiratory rate 20 /min Rema Pool HEAD STOCK TRANSFER CLERK - CNM Work Phone: [facility] Work Phone: 05-24-2021 23:32-0400 Diastolic blood pressure 70 mm[Hg] Rema Pool HEAD STOCK TRANSFER CLERK - CNM Work Phone: [facility] Work Phone: 05-24-2021 23:32-0400 Heart rate 109 /min Rema Pool HEAD STOCK TRANSFER CLERK - CNM Work Phone: [facility] Work Phone: 05-24-2021 23:32-0400 Systolic blood pressure 120 mm[Hg] Rema Tapia HEAD STOCK TRANSFER CLERK - CNM Work Phone: [facility] Work Phone: 05-18-2021 08:59-0400 Diastolic blood pressure 55 mm[Hg] Richar Obrien HEAD STOCK TRANSFER CLERK - CNM Work Phone: [facility] Work Phone: 05-18-2021 08:59-0400 Heart rate 100 /min Richar Obrien HEAD STOCK TRANSFER CLERK - CNM Work Phone: [facility] Work Phone: 05-18-2021 08:59-0400 Systolic blood pressure 102 mm[Hg] Richar Obrien HEAD STOCK TRANSFER CLERK - CNM Work Phone: [facility] Work Phone: 05-18-2021 06:45-0400 Body height 154.9 cm Richar Obrien HEAD STOCK TRANSFER CLERK - CNM Work Phone: [facility] Work Phone: 05-18-2021 06:45-0400 Body mass index (BMI) [Ratio] 29.29 kg/m2 Richar Obrien HEAD STOCK TRANSFER CLERK - CNM Work Phone: [facility] Work Phone: 05-18-2021 06:45-0400 Body weight 70.31 kg Richar Obrien APRN - CNM Work Phone: [facility] Work Phone: 05-18-2021 06:41-0400 Body temperature 98.4 [degF] Richar Obrien APRN - CNM Work Phone: [facility] Work Phone: 05-18-2021 06:41-0400 Respiratory rate 20 /min Richar Obrien APRN - CNM Work Phone: [facility] Work Phone: 04-14-2021 03:30-0400 Diastolic blood pressure 65 mm[Hg] Cisco Andes DO Work Phone: [facility] Work Phone: 04-14-2021 03:30-0400 SaO2% (BldA) [Mass fraction] 100 % Cisco Andes DO Work Phone: [facility] Work Phone: 04-14-2021 03:30-0400 Systolic blood pressure 107 mm[Hg] Cisco Andes DO Work Phone: [facility] Work Phone: 04-14-2021 01:57-0400 Heart rate 108 /min Cisco Andes DO Work Phone: [facility] Work Phone: 04-14-2021 01:35-0400 Respiratory rate 16 /min Cisco Andes DO Work Phone: [facility] Work Phone: 04-14-2021 01:33-0400 Body temperature 97.7 [degF] Cisco Andes DO Work Phone: [facility] Work Phone: 03-23-2021 21:13-0400 Body temperature 97.59 [degF] Lidia Núñez MD Work Phone: [facility] Work Phone: 03-23-2021 21:13-0400 Diastolic blood pressure 70 mm[Hg] Lidia Núñez MD Work Phone: [facility] Work Phone: 03-23-2021 21:13-0400 Heart rate 98 /min Lidia Núñez MD Work Phone: [facility] Work Phone: 03-23-2021 21:13-0400 Respiratory rate 16 /min Lidia Núñez MD Work Phone: [facility] Work Phone: 03-23-2021 21:13-0400 SaO2% (BldA) [Mass fraction] 98 % Lidia Núñez MD Work Phone: [facility] Work Phone: 03-23-2021 21:13-0400 Systolic blood pressure 119 mm[Hg] Lidia Núñez MD Work Phone: [facility] Work Phone: 02-28-2021 12:28-0400 Body Temperature 97.81 [degF] [employer] Phone: 02-28-2021 12:28-0400 BP Diastolic 72 mm[Hg] [employer] Phone: 02-28-2021 12:28-0400 BP Systolic 124 mm[Hg] [employer] Phone: 02-28-2021 12:28-0400 Pulse (Heart Rate) 97 /min [employer] Phone: 02-28-2021 12:28-0400 Pulse Oximetry 100 % [employer] Phone: 02-28-2021 12:28-0400 Respiratory Rate 15 /min [employer] Phone: Encounters Encounter Date Encounter Type Care Provider Facility Start: 12-24-2024 End: 12-24-2024 Office outpatient visit 15 minutes Clyde Leslie DO Work Phone: [facility] Comment on above: Third trimester preg jose juan; 35 weeks gestation of ; STD exposure Start: 12-24-2024 End: 12-24-2024 Bamboo flowsheet Clyde Leslie DO Work Phone: [facility] Start: 12-24-2024 End: 12-24-2024 Bamboo flowsheet Clyde Leslie DO Work Phone: [facility] Start: 12-18-2024 End: 12-18-2024 Bamboo flowsheet Quynh WILDER Work Phone: [facility] Start: 12-18-2024 End: 12-18-2024 Bamboo flowsheet Quynh WILDER Work Phone: [facility] Start: 12-18-2024 End: 12-18-2024 Clinisync Result Encounter Clyde Leslie DO Work Phone: [facility] Unsolicited Start: 12-18-2024 End: 12-18-2024 ambulatory QUYNH VASQUEZ Not Available Start: 12-18-2024 End: 12-18-2024 Office outpatient visit 15 minutes Quynh WILDER Work Phone: [facility] Comment on above: Third trimester preg jose juan; 35 weeks gestation of ; Pruritus Start: 12-17-2024 End: 12-17-2024 Clinisync Result Encounter Clyde Leslie DO Work Phone: [facility] Unsolicited Start: 12-17-2024 End: 12-17-2024 Clinisync Result Encounter Clyde Leslie DO Work Phone: [facility] Unsolicited Start: 12-01-2024 End: 12-01-2024 Office outpatient visit 15 minutes Clyde Leslie DO Work Phone: [facility] Comment on above: 32 weeks gestation o f ; Third trimester ; Constipation during in third trimester Start: 12-01-2024 End: 12-01-2024 ambulatory CLYDE LESLIE Not Available Start: 12-01-2024 End: 12-01-2024 Bamboo flowsheet Clyde Leslie DO Work Phone: [facility] Start: 12-01-2024 End: 12-01-2024 Bamboo flowsheet Clyde Leslie DO Work Phone: [facility] Start: 11-12-2024 End: 11-12-2024 Office outpatient visit 15 minutes Quynh WILDER Work Phone: [facility] Comment on above: Third trimester preg jose juan; 29 weeks gestation of ; Anemia during in third trimester; Excessive growth affecting management of in third trimester, single or unspecified fetus Start: 11-12-2024 End: 11-12-2024 ambulatory QUYNH VASQUEZ Not Available Start: 11-12-2024 End: 11-12-2024 Bamboo flowsheet Quynh Vasquez PA Work Phone: [facility] Start: 11-12-2024 End: 11-12-2024 Bamboo flowsheet Quynh Vasquez PA Work Phone: [facility] Start: 11-12-2024 End: 11-12-2024 Clinisync Result Encounter Quynh WILDER Work Phone: [facility] External Department Unsolicited Start: 11-11-2024 End: 11-11-2024 Clinisync Result Encounter Clyde Leslie DO Work Phone: [facility] External Department Unsolicited Start: 11-11-2024 End: 11-11-2024 Clinisync Result Encounter Clyde Leslie DO Work Phone: [facility] External Department Unsolicited Start: 10-15-2024 End: 10-15-2024 Office outpatient visit 15 minutes Quynh WILDER Work Phone: [facility] Comment on above: Second trimester pre gnancy; 25 weeks gestation of ; Diabetes mellitus screening Start: 10-15-2024 End: 10-15-2024 ambulatory QUYNH VASQUEZ Not Available Start: 10-15-2024 End: 10-15-2024 Bamboo flowsheet Quynh Vasquez PA Work Phone: [facility] Start: 10-15-2024 End: 10-15-2024 Bamboo flowsheet Quynh WILDER Work Phone: [facility] Start: 10-15-2024 End: 10-15-2024 Clinisync Result Encounter Quynh WILDER Work Phone: [facility] Unsolicited Start: 08-18-2024 End: 08-21-2024 Clinisync Result Encounter Clyde Leslie DO Work Phone: [facility] Unsolicited Start: 08-18-2024 End: 08-21-2024 Clinisync Result Encounter Clyde Leslie DO Work Phone: [facility] Unsolicited Start: 08-13-2024 End: 08-13-2024 ambulatory JAMILA VELEZ Not Available Start: 08-13-2024 End: 08-13-2024 Office outpatient visit 15 minutes Jamila Velez MD Work Phone: [facility] Comment on above: Acute non-recurrent maxillary sinusitis (Primary Dx) Start: 08-13-2024 End: 08-13-2024 Bamboo flowsheet Jamila Velez MD Work Phone: [facility] Start: 08-13-2024 End: 08-13-2024 Bamboo flowsheet Jamila Velez MD Work Phone: [facility] Start: 08-12-2024 End: 08-12-2024 Telephone encounter Jamila Velez MD Work Phone: [facility] Start: 07-21-2024 End: 07-21-2024 Bamboo flowsheet Clyde Leslie DO Work Phone: [facility] Start: 07-21-2024 End: 07-21-2024 Bamboo flowsheet Clyde Leslie DO Work Phone: [facility] Start: 07-21-2024 End: 07-21-2024 ambulatory CLYDE LESLIE Not Available Start: 07-21-2024 End: 07-21-2024 Office outpatient visit 15 minutes Clyde Leslie DO Work Phone: [facility] Comment on above: Second trimester pre gnancy; Encounter for anatomic survey; Need for maternal serum alpha-protein (MSAFP) screening Start: 06-19-2024 End: 06-19-2024 ambulatory QUYNH VASQUEZ Not Available Start: 05-06-2024 End: 05-06-2024 ambulatory CLYDE NELSON Not Available Start: 03-20-2024 End: 03-20-2024 ambulatory CLYDE NELSON Not Available Start: 01-21-2024 End: 01-21-2024 ambulatory CLYDE NELSON Not Available Start: 01-15-2024 End: 01-15-2024 ambulatory JAMILA VELEZ Not Available Start: 04-16-2023 End: 04-16-2023 ambulatory [...] Subsequent hospital visit by physician Richar Obrien HEAD STOCK TRANSFER CLERK - CNM Work Phone: [facility] Start: 05-25-2021 End: 05-25-2021 [facility]ulatory [facility] [place] [facility] Start: 05-24-2021 End: 05-25-2021 Subsequent hospital visit by physician Rema Tapia HEAD STOCK TRANSFER CLERK - CNM Work Phone: [facility] Start: 05-18-2021 End: 05-18-2021 ambulatory RICHAR OBRIEN [facility] Start: 05-18-2021 End: 05-18-2021 Subsequent hospital visit by physician Richar Obrien HEAD STOCK TRANSFER CLERK - CNM Work Phone: [facility] Start: 04-14-2021 End: 04-14-2021 Emergency department patient visit [facility] Start: 04-14-2021 End: 04-14-2021 Emergency department patient visit [facility] Work Phone: [facility] Comment on above: Nausea and vomiting during (Primary Dx) Start: 03-23-2021 End: 03-24-2021 Emergency department patient visit LIDIA VICKSAIN [facility] Start: 03-23-2021 End: 03-23-2021 Emergency department patient visit Lidia Núñez MD Work Phone: [facility] Comment on above: Leg swelling (Primar y Dx) Start: 03-10-2021 End: 03-10-2021 Emergency department patient visit NANETTE ALCALA [facility] Start: 02-28-2021 End: 02-28-2021 Emergency department patient visit MECHE BLOOD [facility] Start: 02-28-2021 End: 02-28-2021 Emergency department patient visit Meche Blood Work Phone: [facility] Comment on above: Abdominal pain, unsp ecified abdominal location (Primary Dx); Urinary tract infection without hematuria, site unspecified; Intrauterine Procedures Date Procedure Procedure Detail Performing Clinician Start: 12-24-2024 Urnls dip stick/tabl et rgnt non-auto w/o micrscp Clyde Leslie DO Work Phone: Start: 12-18-2024 [facility] LIVER PANEL Clyde Leslie DO Work Phone: Start: 12-17-2024 ALL CBC WITH AUTO DIFF Clyde Leslie DO Work Phone: Start: 12-01-2024 Urnls dip stick/tabl et rgnt non-auto w/o micrscp Clyde Leslie DO Work Phone: Start: 11-12-2024 [facility] Quynh WILDER Work Phone: Start: 11-11-2024 ALL CBC WITH AUTO DIFF Clyde Leslie DO Work Phone: Start: 10-15-2024 ALL CBC WITH AUTO DIFF Quynh WILDER Work Phone: Start: 10-15-2024 Urnls dip stick/tabl et rgnt non-auto w/o micrscp Quynh WILDER Work Phone: Start: 08-19-2024 STATUS COVID-19/FLU Naomi Velez MD Work Phone: Start: 08-18-2024 AFP, SERUM, OPEN SPI NA BIFIDA Clyde Leslie DO Work Phone: Start: 07-21-2024 Urnls dip stick/tabl et rgnt non-auto w/o micrscp Clyde Leslie DO Work Phone: Start: 06-13-2023 Microscopic observat ion [Identifier] in Cervix by Cyto stain Clyde Leslie DO Work Phone: Start: 05-18-2021 Urinalysis microscop ic only Richar Obrien HEAD STOCK TRANSFER CLERK - CNM Work Phone: Start: 05-18-2021 Urnls dip stick/tabl et rgnt auto w/o microscopy Richar Obrien HEAD STOCK TRANSFER CLERK - CNM Work Phone: Start: 04-14-2021 Assay of lipase Cisco And DO Work Phone: Start: 04-14-2021 BASIC METABOLIC PANE L W/ REFLEX TO MG FOR LOW K Cisco And DO Work Phone: Start: 04-14-2021 Hepatic function panel Cisco And DO Work Phone: Start: 04-14-2021 Urinalysis microscop ic only Cisco Lopez DO Work Phone: Start: 04-14-2021 Urnls dip [...] Work Phone: Start: 02-17-2021 ABO, EXTERNAL RESULT Ny rosaura Provider Start: 02-17-2021 HEPATITIS B, EXTERNA [...] Screening for malign ant neoplasm of cervix [facility] Start: 12-31-2024 End: 12-31-2024 Patient encounter procedure 12/31/2024 2:50 PM EST Routine [facility] [address] [place] [address] Quynh Vasquez, PA [address] [place] [address] [facility] Start: 12-24-2024 End: 12-24-2024 Patient encounter procedure 12/24/2024 3:10 PM EST Routine [facility] [address] [phone] Clyde Nelson DO [address] [place], [place] [id number] [facility] Start: 12-24-2024 End: 12-24-2025 CULTURE, GROUP B STREP WITH SUSCEPTIBLITY CULTURE, GROUP B STREP WITH SUSCEPTIBLITY Lab Routine Third trimester Expected: 12/24/2024, Expires: 12/24/2025 [facility] Comment on above: Expected: 12/24/2024 , Expires: 12/24/2025 Start: 12-18-2024 End: 12-18-2025 Bile acids, total Bile acids, total Lab Routine Pruritus Expected: 12/18/2024 (Approximate), Expires: 12/18/2025 [facility] Comment on above: Expected: 12/18/2024 (Approximate), Expires: 12/18/2025 Start: 12-18-2024 End: 12-18-2025 Hepatic function 2000 panel - Serum or Plasma Hepatic function panel Lab Routine Pruritus Expected: 12/18/2024 (Approximate), Expires: 12/18/2025 [facility] Work Phone: Comment on above: Expected: 12/18/2024 (Approximate), Expires: 12/18/2025 Start: 12-18-2024 End: 12-18-2024 Patient encounter procedure 12/18/2024 11:00 AM EST Routine [facility] [address] [phone] Quynh Vasquez, PA [address] [place], [place] [id number] [facility] Start: 12-01-2024 End: 12-01-2024 Patient encounter procedure [facility] Comment on above: Arrived Start: 12-01-2024 End: 12-01-2024 Professional / ancillary services management 12/01/2024 3:00 PM EST Ancillary Procedure [facility] [address] [phone] [facility] Start: 11-12-2024 End: 11-12-2024 Patient encounter procedure [facility] Comment on above: Arrived Start: 11-12-2024 End: 11-12-2025 Transferrin [Mass/volume] in Serum or Plasma Transferrin Lab Routine Anemia during in third trimester Expected: 11/12/2024 (Approximate), Expires: 11/12/2025 [facility] Comment on above: Expected: 11/12/2024 (Approximate), Expires: 11/12/2025 Start: 11-12-2024 End: 11-12-2025 US for US OB SCAN FOR GROWTH Imaging Routine Excessive growth affecting management of in third trimester, single or unspecified fetus Expected: 11/12/2024 (Approximate), Expires: 11/12/2025 [facility] Comment on above: Expected: 11/12/2024 (Approximate), Expires: 11/12/2025 Start: 11-05-2024 End: 11-05-2024 Patient encounter procedure 11/05/2024 2:30 PM EST Routine [facility] [address] [phone] Clyde Nelson DO [address] [place] [address] [facility] Start: 10-15-2024 End: 10-15-2024 Patient encounter procedure 10/15/2024 2:30 PM EST Routine [facility] [address] [phone] Quynh Vasquez PA [address] [place], [place] [id number] Arrived [facility] Comment on above: Arrived Start: 10-15-2024 End: 10-15-2025 CBC panel - Blood by Automated count CBC Lab Routine Diabetes mellitus screening Expected: 10/15/2024 (Approximate), Expires: 10/15/2025 [facility] Healthcare Work Phone: Comment on above: Expected: 10/15/2024 (Approximate), Expires: 10/15/2025 Start: 10-15-2024 End: 10-15-2025 Measurement of glucose 1 hour after glucose challenge for glucose tolerance test Glucose tolerance, 1 hour Lab Routine Diabetes mellitus screening Expected: 10/15/2024 (Approximate), Expires: 10/15/2025 [facility] Comment on above: Expected: 10/15/2024 (Approximate), Expires: 10/15/2025 Start: 09-04-2024 End: 09-04-2024 Professional / ancillary services management 09/04/2024 11:00 AM EDT Ancillary Procedure [facility] [address] [place] [address] [place] [address] [facility] Start: 07-27-2024 Influenza vaccination Influenza Vacc ine (#1) [facility] Start: 07-21-2024 End: 08-21-2024 Alpha fetoprotein, maternal Alpha fetoprotein, maternal Lab Routine Need for maternal serum alpha-protein (MSAFP) screening Expected: 07/21/2024 (Approximate), Expires: 08/21/2024 [facility] Healthcare Work Phone: Comment on above: Expected: 07/21/2024 (Approximate), Expires: 08/21/2024 Start: 07-21-2024 End: 07-21-2025 US for US OB ANATOMY SINGLE W US OB CERVICAL LENGTH Imaging Routine Encounter for anatomic survey Expected: 07/21/2024 (Approximate), Expires: 07/21/2025 [facility] Comment on above: Expected: 07/21/2024 (Approximate), Expires: 07/21/2025 Start: 2024 Screening for malign ant neoplasm of cervix HPV/Cotest [facility] Start: 05-16-2023 DTaP/Tdap/Td vaccine (2 - Td or Tdap) DTaP/Tdap/Td vaccine (2 - Td or Tdap) [facility] [email or web address] Phone: Start: 05-16-2023 DTaP/Tdap/Td vaccine (2 - Td) DTaP/Tdap/Td vaccine (2 - Td) [facility] [employer] Phone: Start: 07-27-2021 Influenza vaccination [facility] [email or web address] Phone: Start: 03-23-2021 End: 03-23-2022 VL DUP LOWER EXTREMITY VENOUS BILATERAL VL DUP LOWER EXTREMITY VENOUS BILATERAL Imaging Routine Leg swelling Expected: 03/23/2021, Expires: 03/23/2022 [facility] [email or web address] Phone: Comment on above: Expected: 03/23/2021 , Expires: 03/23/2022 Start: 2015 Screening for malign ant neoplasm of cervix Cervical cancer screen [facility] [employer] Phone: Start: 2010 COVID-19 Vaccine (1) COVID-19 Vaccin e (1) [facility] [employer] Phone: Start: 2009 HIV screening HIV screen [facility] Work Phone: Start: 2006 COVID-19 Vaccine (1) COVID-19 Vaccin e (1) [facility] [employer] Phone: Start: 1995 Varicella vaccine (1 of 2 - 2-dose childhood series) Varicella vaccine (1 of 2 - 2-dose childhood series) [facility] [email or web address] Phone: Start: 1994 Hepatitis C screening Hepatitis C sc reen [facility] [email or web address] Phone: End: 05-18-2021 Bacteria identified in Urine by Culture Urine culture Microbiology Routine One Time for 1 Occurrences starting 05/18/2021 until 05/18/2021 [facility] Phone: Comment on above: One Time for 1 Occur rences starting 05/18/2021 until 05/18/2021 End: 02-28-2021 CBC Auto Differential CBC Auto Differential Lab STAT One Time for 1 Occurrences starting 02/28/2021 until 02/28/2021 [employer] Phone: Comment on above: One Time for 1 Occur rences starting 02/28/2021 until 02/28/2021 CHLAMYDIA TRACHOMATI S (GENITO/STI) CHLAMYDIA TRACHOMATIS (GENITO/STI) Lab Routine STD exposure Ordered: 12/24/2024 [employer] Comment on above: Ordered: 12/24/2024 End: 02-28-2021 Comprehensive Metabolic Panel w/ Reflex to MG Comprehensive Metabolic Panel w/ Reflex to MG Lab STAT One Time for 1 Occurrences starting 02/28/2021 until 02/28/2021 [employer] Phone: Comment on above: One Time for 1 Occur rences starting 02/28/2021 until 02/28/2021 End: 02-28-2021 Culture, Urine Culture, Urine Microbiology Routine One Time for 1 Occurrences starting 02/28/2021 until 02/28/2021 [employer] Phone: Comment on above: One Time for 1 Occur rences starting 02/28/2021 until 02/28/2021 Ferritin [Mass/volum e] in Serum or Plasma Ferritin Lab Routine Anemia during in third trimester Ordered: 11/12/2024 [employer] Work Phone: Comment on above: Ordered: 11/12/2024 Neisseria gonorrhoea e DNA [Presence] in Unspecified specimen by ARI with probe detection Neisseria gonorrhea DNA probe, direct Lab Routine STD exposure Ordered: 12/24/2024 [employer] Comment on above: Ordered: 12/24/2024 Nonrebreather mask oxygen [employer] Phone: Comment on above: As directed - RT (DE N) until discontinued starting 05/18/2021 As directed - RT (DE N) until discontinued starting 05/24/2021 As directed - RT (DE N) until discontinued starting 06/16/2021 SURESWAB(R) ADVANCED VAGINITIS PLUS, TMA SURESWAB(R) ADVANCED VAGINITIS PLUS, TMA Pathology and Cytology Routine STD exposure Ordered: 12/24/2024 [facility] [employer] Work Phone: Comment on above: Ordered: 12/24/2024 End: 05-18-2021 SVE SVE Point of Care Testing Routine One Time for 1 Occurrences starting 05/18/2021 until 05/18/2021 [employer] Phone: Comment on above: One Time for 1 Occur rences starting 05/18/2021 until 05/18/2021 End: 05-24-2021 SVE SVE Point of Care Testing Routine One Time for 1 Occurrences starting 05/24/2021 until 05/24/2021 [employer] Phone: Comment on above: One Time for 1 Occur rences starting 05/24/2021 until 05/24/2021 End: 06-16-2021 SVE SVE Point of Care Testing Routine One Time for 1 Occurrences starting 06/16/2021 until 06/16/2021 [employer] Phone: Comment on above: One Time for 1 Occur rences starting 06/16/2021 until 06/16/2021 Immunizations Immunization Date Immunization Notes Care Provider [facility] 09-03-2021 diphtheria, tetanus toxoids and pertussis vaccine [employer] Work Phone: [facility] 05-16-2013 tetanus toxoid, redu harrison diphtheria toxoid, and acellular pertussis vaccine, adsorbed [employer] Work Phone: [facility] 11-08-2012 influenza virus vacc ine, live, attenuated, for intranasal use [employer] Work Phone: [facility] 11-08-2012 influenza virus vacc ine, unspecified formulation [employer] Work Phone: [facility] Payers Date Payer Category Payer Medicaid [employer] [place] [employer] [id number] 2021-Present [address] [place] [id number] 2021 Medicaid (Managed Care) [facility] MEDICAID [id number] 1994 Unknown [id number] 2.16.840.1.376688.3.579.2. 173 1994 Unknown [id number] 2.16.840.1.801259.3.579.2. 173 1994 Unknown [id number] 2.16.840.1.760316.3.579.2. 173 1994 Unknown [id number] 2.16.840.1.179631.3.579.2. 173 1994 Unknown [id number] 2.16.840.1.529051.3.579.2. 173 1994 Unknown [id number] 2.16.840.1.789758.3.579.2. 173 1994 Unknown [id number] 2.16.840.1.127713.3.579.2. 173 1994 Unknown [id number] 2.16.840.1.073718.3.579.2. 593 1994 Unknown [id number] 2.16.840.1.693288.3.579.2. 593 1994 Unknown [id number] 2.16.840.1.380409.3.579.2. 593 1994 Unknown [id number] 2.16.840.1.290723.3.579.2. 593 1994 Unknown [id number] 2.16.840.1.493933.3.579.2. 593 1994 Unknown [id number] 2.16.840.1.858069.3.579.2. 593 1994 Unknown [id number] 2.16.840.1.163793.3.579.2. 593 1994 Unknown [id number] 2.16.840.1.242118.3.579.2. 593 1994 Unknown [id number] 2.16.840.1.209322.3.579.2. 593 1994 Unknown [id number] 2.16.840.1.819075.3.579.2. 593 1994 Unknown [id number] 2.16.840.1.041111.3.579.2. 593 1994 Unknown [id number] 2.16.840.1.932158.3.579.2. 593 1994 Unknown [id number] 2.16.840.1.583952.3.579.2. 125 1994 Unknown [id number] 2.16.840.1.802747.3.579.2. 1259 1994 Unknown [id number] 2.16.840.1.452239.3.579.2. 1259 1994 Unknown [id number] 2.16.840.1.954232.3.579.2. 1259 1994 Unknown [id number] 2.16.840.1.487353.3.579.2. 1259 1994 Unknown [id number] 2.16.840.1.956456.3.579.2. 1259 1994 Unknown [id number] 2.16.840.1.839886.3.579.2. 1259 1994 Unknown [id number] 2.16.840.1.835704.3.579.2. 1259 1994 Unknown [id number] 2.16.840.1.071334.3.579.2. 1259 1994 Unknown [id number] 2.16.840.1.661668.3.579.2. 1259 1994 Unknown [id number] 2.16.840.1.494680.3.579.2. 1259 1994 Unknown [id number] 2.16.840.1.784497.3.579.2. 1259 1959 Self-pay [id number] 1959 Unknown [id number] 1.2.840.862468.1.13.239.2. 7.3.363002.315 Social History Date Type Detail Facility Start: 02-28-2021 End: 04-17-2023 Tobacco smoking status [facility] Never smoker [facility] Start: 02-28-2021 End: 04-17-2023 Tobacco use and exposure Never used [employer] Phone: Start: 1994 Sex Assigned At Not on file [employer] Phone: Exposure to SARS-CoV -2 (event) Not sure [employer] Phone: Start: 12-07-2020 [employer] Phone: Start: 05-18-2021 End: 06-16-2021 Alcohol intake Ex-drinker (finding) [employer] Phone: Start: 08-13-2024 End: 12-18-2024 Alcoholic beverage intake Lifetime non-drinker (finding) [facility] Start: 05-07-2024 End: 08-13-2024 [facility] of [facility] Start: 05-07-2024 End: 08-13-2024 Social connection and isolation panel [facility] Do you belong to any clubs or organizations such as hoahaoism groups, unions, fraternal or athletic groups, or [...] Healthcare Start: 06-12-2023 Alcohol Comment Caffeine: none [facility] Goals Date Patient Goal Desired Activity /State Personal health goal Clinical Notes 03-23-2021 to 12-24-2024 Marixa Parra LPN - 12/24/2024 3:10 PM MEÑO Haddad - 12/18/2024 11:00 AM Jey Oneill LPN - 12/01/2024 3:30 PM MEÑO Haddad - 11/12/2024 2:40 PM MEÑO Haddad - 10/15/2024 2:30 PM EST Note Date & Type Note Facility 12-24-2024 History of Presen t illness Narrative Reason for Appointment: Patient ID: Erika Reid is a 29 y.o. female who presents for Routine Visit Patient presents today for Return OB appointment. MEDICATIONS Current Outpatient Medications Medication Instructions docusate sodium (COLACE) 100 mg, Oral, 2 times daily PRN iron polysaccharides (Nu-Iron,Niferex) 150 MG capsule 1 capsule, Daily ALLERGIES Allergies Allergen Reactions Latex Hives, Swelling [...] Mother Nanette Reid Other (headache) Mother Nanette Rowedaniel Breast cancer Mother Nanette Rangelraji stage 2 Asthma Mother Nanette Rowedaniel Mental illness Father Migraines Sister Viji Packer Mental illness Sister Viji Packer Asthma Sister Viji Packer Mental illness Brother Tong Packer Migraines [...] Exam Constitutional: Appearance: Normal appearance. She is well-developed. Genitourinary: Vulva normal. Cardiovascular: Rate and Rhythm: Normal rate and regular rhythm. Pulmonary: Effort: Pulmonary effort is normal. Breath sounds: Normal breath sounds. Abdominal: General: Bowel sounds are normal. There is no distension. Palpations: Abdomen is soft. Tenderness: There is no abdominal tenderness. There is no guarding or rebound. Musculoskeletal: General: No swelling. Normal range of motion. Right lower leg: No edema. Left lower leg: No edema. Neurological: Mental Status: She is alert and oriented to person, place, and time. Skin: General: Skin is warm and dry. Psychiatric: Mood and Affect: Mood normal. Behavior: Behavior normal. Vitals and nursing note reviewed. Exam conducted with a assembler installer structures present. Vitals: Estimated body mass index is 33.33 kg/m as calculated from the following: Height as of 24: 5' 1 . Weight as of this encounter: 176 lb 6.4 oz. BP: 120/84 No LMP recorded. Patient is . ASSESSMENT & PLAN ICD-10-CM 1. Third trimester Z34.93 POCT urinalysis dipstick manually resulted CULTURE, GROUP B STREP WITH SUSCEPTIBLITY CULTURE, GROUP B STREP WITH SUSCEPTIBLITY 2. 35 weeks gestation of Z3A.35 3. STD exposure Z20.2 SURESWAB(R) ADVANCED VAGINITIS PLUS, TMA CHLAMYDIA TRACHOMATIS (GENITO/STI) Neisseria gonorrhea DNA probe, direct Patient is doing well but has complaints of being tired and having maternal discomfort due to . Patient verbalized frequent movement and was instructed to perform kick counts three times per day. labor precautions were given, LARC consent was signed/declined, and GBS was obtained. Cervical check was performed and patient is 0cm dilated. Orders Placed This Encounter Procedures CHLAMYDIA TRACHOMATIS (GENITO/STI) Neisseria gonorrhea DNA probe, direct CULTURE, GROUP B STREP WITH SUSCEPTIBLITY POCT urinalysis dipstick manually resulted Follow Up: Patient is to return to office in 1 week for routine OB appointment Documented by Marixa Parra LPN on behalf of: Clyde Nelson DO documented in this encounter [facility] 12-18-2024 History of Presen t illness Narrative Reason for Appointment: Patient ID: Erika Reid is a 29 y.o. female who presents for Routine Visit Patient presents today for Return OB appointment. MEDICATIONS Current Outpatient Medications Medication Instructions docusate sodium (COLACE) 100 mg, Oral, 2 times daily PRN iron polysaccharides (Nu-Iron,Niferex) 150 MG capsule 1 capsule, Daily ALLERGIES Allergies Allergen Reactions Latex Hives, Swelling [...] Mother Nanette Reid Breast cancer Mother Nanette Reid stage 2 Asthma Mother Nanette [place] Mental illness Father Migraines Sister Alexaustina Packer Mental illness Sister Alexyia Packer Asthma Sister Alexyia Packer Mental illness Brother Tong Packer Migraines Brother Tong Packer Asthma Brother Tongzan ArceoPacker No Known Problems Son Asthma Brother Sami Packer SURGICAL HISTORY Past Surgical History: Procedure Laterality Date SECTION, LOW TRANSVERSE 08/31/2021 SECTION, LOW TRANSVERSE 11/02/2023 REVIEW OF SYSTEMS Review of Systems: Review of Systems OBJECTIVE Objective: OBGyn Exam Vitals: Estimated body mass index is 33.22 kg/m as calculated from the following: Height as of 08/13/24: 5' 1 . Weight as of this encounter: 175 lb 12.8 oz. BP: 120/74 No LMP recorded. Patient is . ASSESSMENT & PLAN ICD-10-CM 1. Third trimester Z34.93 2. 35 weeks gestation of Z3A.35 3. Pruritus L29.9 Hepatic function panel Bile acids, total Hepatic function panel Bile acids, total Patient presents today for a routine obstetrics appointment. Patient is currently 35w0d with a Estimated Date of Delivery: 01/22/25. Gave patient lab slip to have labs drawn. Pepcid and zrytec Documented by Richar Oneill LPN on behalf of: MEÑO Andrews documented in this encounter [facility] 12-01-2024 History of Presen t illness Narrative Reason for Appointment: Patient ID: Erika Reid is a 29 y.o. female who presents for Routine Visit Patient presents today for Return OB appointment. MEDICATIONS Current Outpatient Medications Medication Instructions docusate sodium (COLACE) 100 mg, Oral, 2 times daily PRN iron polysaccharides (Nu-Iron,Niferex) 150 MG capsule 1 capsule, Daily ALLERGIES Allergies Allergen Reactions Latex Hives, Swelling [...] Mother Nanette Reid Breast cancer Mother Nanette Reid stage 2 Asthma Mother Nanette Rangelraji Mental [...] SYSTEMS Review of Systems: Review of Systems All other systems reviewed and are negative. OBJECTIVE Objective: OBGyn Exam Vitals: Estimated body mass index is 32.33 kg/m as calculated from the following: Height as of 08/13/24: 5' 1 . Weight as of this encounter: 171 lb 1.9 oz. BP: 118/78 No LMP recorded. Patient is . ASSESSMENT & PLAN ICD-10-CM 1. 32 weeks gestation of Z3A.32 POCT urinalysis dipstick manually resulted 2. Third trimester Z34.93 POCT urinalysis dipstick manually resulted 3. Constipation during in third trimester O99.613 docusate sodium (Colace) 100 MG capsule K59.00 Patient presents today for a routine obstetrics appointment. Patient is currently 32w4d with a Estimated Date of Delivery: 01/22/25. Patient to contact pharmacy to refill ProFe, colace sent to pharmacy and nursing called [facility] Scheduling in regards to iron infusions. Patient to RTC in 2 weeks for routine OB appointment. Documented by Richar Oneill LPN on behalf of: Clyde Nelson DO documented in this encounter [facility] 11-12-2024 History of Presen t illness Narrative Reason for Appointment: Patient ID: Erika Reid is a 29 y.o. female who presents for Routine Visit Patient presents today for Return OB appointment. MEDICATIONS Current Outpatient Medications Medication Instructions iron polysaccharides (PROFE) 391.3 mg, Oral, Daily ALLERGIES Allergies Allergen Reactions Latex Hives, Swelling [...] illness Mother Nanette Reid Migraines Mother Nanette Rowedaniel Other (headache) Mother Nanette Rowedaniel Breast cancer Mother Nanette [place] stage 2 Asthma Mother Nanette Rangelraji Mental illness Father Migraines Sister Viji Packer Mental illness Sister Viji Castlevo Asthma Sister Alexsarah Castlevo Mental illness Brother Tong Packer Migraines Brother Tong Arceoalvo Asthma Brother Tong Packer No Known Problems [...] and oriented to person, place, and time. Psychiatric: Mood and Affect: Mood normal. Behavior: Behavior normal. Thought Content: Thought content normal. Judgment: Judgment normal. Vitals and nursing note reviewed. Vitals: Estimated body mass index is 32.31 kg/m as calculated from the following: Height as of 08/13/24: 5' 1 . Weight as of this encounter: 171 lb. BP: 118/72 No LMP recorded. Patient is . ASSESSMENT & PLAN ICD-10-CM 1. Third trimester Z34.93 CANCELED: POCT urinalysis dipstick manually resulted 2. 29 weeks gestation of Z3A.29 3. Anemia during in third trimester O99.013 Ferritin Transferrin Transferrin 4. Excessive growth affecting management of in third trimester, single or unspecified fetus O36.63X0 US OB SCAN FOR GROWTH Return OB: Patient presents today for a routine obstetrics appointment. Patient is currently 29w6d . Patient states she is doing well but has complaints of being tired due to current . Patient has verbalizes frequent movement. labor precautions was discussed/given and patient was instructed to perform kick counts three times a day. Patient will follow up and have ferritin levels checked, she agrees to infusion of necessary. HG last level on 10/15 9.6. pt admits to not taking profe as ordered Orders Placed This Encounter Procedures US OB SCAN FOR GROWTH Ferritin Transferrin Follow Up: Patient is to return to office in 2 week for routine OB appointment. Documented by MEÑO Andrews on behalf of: MEÑO Andrews documented in this encounter [facility] 10-15-2024 History of Presen t illness Narrative [...] Mother Nanette Reid Breast cancer Mother Nanette Rowedaniel stage 2 Asthma Mother Nanette Rangelraji Mental illness Father Migraines Sister Viji Castlevo Mental illness Sister Viji Castlevo Asthma Sister Viji Castlevo Mental illness Brother Tong Packer Migraines Brother Tong Arceoalvo Asthma Brother Tong Packer No Known Problems [...] of: MEÑO Andrews documented in this encounter [facility] 08-13-2024 History of Presen t illness Narrative Erika Reid is a 29 y.o. female presents with chief complaint of No chief complaint on file. HPI: HPI History of Present Illness The patient presents for evaluation of multiple medical concerns. She began feeling unwell on Sunday night, but reports an improvement in her condition today compared to yesterday. Her throat is no longer causing discomfort and her cough has lessened. She suspects a sinus infection due to the presence of mucus and difficulty breathing. She has not taken any medication for her symptoms. She experiences what she describes as a heart drop sensation, which occurs weekly. This was discussed with her OB-SURVEYOR'S ASSISTANT, who reassured her that it is a normal occurrence during . SOCIAL HISTORY The patient denies smoking. SUBJECTIVE: MEDICATIONS: Current Outpatient Medications Medication Instructions acetaminophen (TYLENOL EXTRA STRENGTH) 500 mg, Oral, Every 6 hours PRN amoxicillin (AMOXIL) 500 mg, Oral, 3 times daily REVIEW OF SYMPTOMS: Review of Systems OBJECTIVE: Visit Vitals BP 124/78 Pulse (!) 124 Resp 18 Ht 5' 1 Wt 156 lb SpO2 99% BMI 29.48 kg/m OB Status Smoking Status Never BSA 1.75 m Physical Exam Constitutional: Appearance: Normal appearance. She is normal weight. HENT: Head: Normocephalic and atraumatic. Right Ear: Tympanic membrane and ear canal normal. Left Ear: Tympanic membrane and ear canal normal. Nose: Congestion and rhinorrhea present. Mouth/Throat: Mouth: Mucous membranes are moist. Pharynx: Oropharyngeal exudate present. Eyes: Pupils: Pupils are equal, round, and reactive to light. Cardiovascular: Rate and Rhythm: Normal rate and regular rhythm. Heart sounds: No murmur heard. Pulmonary: Effort: Pulmonary effort is normal. Breath sounds: Normal breath sounds. No wheezing or rhonchi. Musculoskeletal: General: No swelling. Cervical back: Normal range of motion and neck supple. Right lower leg: No edema. Left lower leg: No edema. Lymphadenopathy: Cervical: No cervical adenopathy. Skin: General: Skin is warm and dry. Findings: No rash. Neurological: Mental Status: She is oriented to person, place, and time. Sensory: No sensory deficit. Gait: Gait normal. Psychiatric: Mood and Affect: Mood normal. Thought Content: Thought content normal. Judgment: Judgment normal. Neg covid testing ASSESSMENT AND PLAN: Assessment/Plan Assessment & Plan 1. Upper respiratory infection. Her COVID-19 and influenza tests returned negative results, suggesting a common cold that will resolve naturally over time. Amoxicillin 500 mg has been prescribed to address her sinus infection concerns. A prescription for Tylenol 500 mg has also been provided. She is advised to maintain adequate hydration and rest. Her lungs sound clear upon examination. 2. Palpitations. She reports experiencing occasional palpitations, described as feeling like a skipped beat, which last for a split second. Reassurance was provided regarding the transient nature of these palpitations, especially during . She is advised to monitor the frequency and duration of these episodes and to follow up if they become more frequent or last longer than a split second. documented in this encounter [facility] 08-12-2024 Telephone encounter Note Pt is on the phone.. she's 17 weeks pg, watery eyes, stuffy nose, runny nose, feels hot (but she's always hot with pg) She isnt sure what to do, since she can't take much with pg. She said she's hoping its just allergies but isnt sure. You are done for the day, but loren has the 5 pm open.. pt lives in [place]. Unless you have a recommendation? [facility] 08-12-2024 Miscellaneous Notes Pt is on the phone.. she's 17 weeks pg, watery eyes, stuffy nose, runny nose, feels hot (but she's always hot with pg) She isnt sure what to do, since she can't take much with pg. She said she's hoping its just allergies but isnt sure. You are done for the day, but loren has the 5 pm open.. pt lives in [place]. Unless you have a recommendation? documented in this encounter [facility] 07-21-2024 History of Presen t illness Narrative Reason for Appointment: Patient ID: Erika Reid is a 29 y.o. female who presents for Routine Visit Patient presents today for Return OB appointment. [...] Mother Nanette Reid Breast cancer Mother Nanette Rowedaniel stage 2 Asthma Mother Nanette Reid Mental illness Father Migraines Sister Viji Packer Mental illness Sister Viji Packer Asthma Sister Viji Packer Mental illness Brother Tong Packer Migraines Brother Tong Arceoalvo Asthma Brother Tong Packer No Known Problems Son Asthma Brother Sami Packer SURGICAL HISTORY Past Surgical History: Procedure Laterality Date SECTION, LOW TRANSVERSE 08/31/2021 SECTION, LOW TRANSVERSE 11/02/2023 REVIEW OF SYSTEMS Review of Systems: Review of Systems All other systems reviewed and are negative. OBJECTIVE Objective: OBGyn Exam Vitals: Estimated body mass index is 29.29 kg/m as calculated from the following: Height as of 05/06/24: 5' 1 . Weight as of this encounter: 155 lb. BP: 112/70 No LMP recorded. Patient is . ASSESSMENT & PLAN ICD-10-CM 1. Second trimester Z34.92 POCT urinalysis dipstick manually resulted 2. Encounter for anatomic survey Z36.89 US OB ANATOMY SINGLE W US OB CERVICAL LENGTH 3. Need for maternal serum alpha-protein (MSAFP) screening Z36.1 Alpha fetoprotein, maternal Alpha fetoprotein, maternal New OB: Patient presents today for 1st time obstetrics appointment with provider. Patient is currently 13w4d . Patients history has been reviewed in great detail including any potential risks. Patient stated she currently has no complaints. Expectations throughout regarding labs, ultrasounds, and appointments have been discussed with the patient in detail. It was reiterated that the patient is to drink 6-8 glasses of water a day, eat 6 small meals a day, do not consume raw or undercooked meat, and stay away from [facility]. Patient has been consulted regarding any further do's and don'ts of . Patient voiced understanding and all questions and concerns were answered. Pap and cultures at next appointment. Patient aware that she will be a repeat on 01/15/2025. Discussed patients recent swelling of lower extremities and that patient does not have any swelling at this time. Orders Placed This Encounter Procedures US OB ANATOMY SINGLE W US OB CERVICAL LENGTH Alpha fetoprotein, maternal POCT urinalysis dipstick manually resulted Follow Up: Patient is to return in 4 weeks for routine OB appointment. Documented by Richar Oneill LPN on behalf of: Clyde Nelson DO documented in this encounter [facility]-17-2021 History of Presen t illness [...] and TOCO. Orders received to discharge home. [facility] notified via telephone requesting pt's blood [...] placed on monitor. documented in this encounter [employer] Phone: 05-18-2021 History of Presen t illness Narrative Obstetrical outpatient discharge instructions explained to pt, pt v.u. Pt instructed to cigar packer and picker keflex and zofran prescriptions at [facility] in [place], pt v.u. documented in this encounter [employer] Phone: 03-23-2021 Hospital Discharg Lidia Moya MD - 03/23/2021 Please take all medications [...] ANY other concerns. documented in this encounter [employer] Phone: Evaluation note Diagnosis Leg swelling- Primary Swelling of limb documented in this encounter [employer] Phone: evaluation note* Diagnosis Nausea and vomiting during - Primary documented in this encounter [employer] Phone: evaluation note* Diagnosis Decreased movement affecting management of mother, antepartum documented in this encounter [employer] Phone: evaluation note* Diagnosis Second trimester state, incidental 25 weeks gestation of Diabetes mellitus screening Screening for diabetes mellitus documented in this encounter [facility]* Diagnosis Second trimester state, incidental Encounter for anatomic survey Need for maternal serum alpha-protein (MSAFP) screening documented in this encounter [facility] note* Diagnosis Third trimester state, incidental 29 weeks gestation of Anemia during in third trimester Excessive growth affecting management of in third trimester, single or unspecified fetus documented in this encounter [facility] HealthcareEvaluation note* Diagnosis Acute non-recurrent maxillary sinusitis- Primary documented in this encounter [facility] note* Diagnosis 32 weeks gestation of Third trimester state, incidental Constipation during in third trimester documented in this encounter [facility] note* Diagnosis Third trimester state, incidental 35 weeks gestation of Pruritus Unspecified pruritic disorder documented in this encounter [facility] Healthcare[facility] note* Diagnosis Third trimester state, incidental 35 weeks gestation of STD exposure [facility] Attachments The following attachments cannot be sent through Care Everywhere. * : Hyperemesis Gravidarum ([place]) * Nausea and Vomiting ([place]) documented in this encounterAdena Pike Medical CenterSpecific Media [facility] [employer] Phone: Hospital Discharge instructions* Instructions* Erinn Simms RN - 05/18/[address] Liss Tapia [facility] Dr. Alondra Obrien CN [address] [facility] [address] [facility] [address] [address] Alondra Carrillo [facility] [address] [facility] [address] [phone] Therese Villatoro, MSN, HEAD STOCK TRANSFER CLERK, CNM [facility] [address] [facility] [address] [address] Reynoso [facility] [address] [facility] [address] Richar Rob [facility] [address] [place] [place] [address] Gabbie Sandi CNM [address] [place] [address] [phone] ACTIVITY LIMITATIONS: ( x )Up and about [...] OF EMERGENCY CONTACT LABOR AND DELIVERY . 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 KEFLEX TO BE TAKEN AT 2:30PM FOR FIRST DOSE. documented in this [facility] Work Phone: Hospital Discharge instructions* Instructions* Fiona Gilliland, RN - 05/25/[address] Liss Tapia [facility] Dr. Alondra Obrien CN [address] [facility] [address] [facility] [address] [address] Alondra Carrillo CN [address] [facility] [id number] [phone] Therese Villatoro, MSN, HEAD STOCK TRANSFER CLERK, CNM [facility] [address] [facility] [address] [address] Reynoso [facility] [address] [facility] [id number] Richar Rob CNM [address] [place] [address] [place] [address] Gabbie Sandi CNM [address] [place] [address] [phone] ACTIVITY LIMITATIONS: ( x )Up and about [...] LABOR AND DELIVERY . documented in this [facility] [employer] Work Phone: Hospital Discharge instructions* Instructions* Allyson Joel, RN - 06/17/[address] Liss Tapia [facility] Dr. Alondra Obrien [facility] [address] [facility] [address] [facility] [address] [address] [address] Alondra Carrillo [facility] [address] [facility] [address] [phone] ACTIVITY LIMITATIONS: ( x )Up and about [...] LABOR AND DELIVERY . documented in this encounterAdena Pike Medical CenterDigital Loyalty System Phone: Discharge Instructions * Instructions* Meche Blood MD - 02/28/2021 Take Keflex as directed until complete. Make sure to stay well-hydrated. Follow- up with your OB. Seek medical attention immediately for any worsening pain or any other acute concerns. * Attachments The following attachments cannot be sent through Care Everywhere. * Abdominal Pain ([place]) * : PROM: General Info ([place]) * UTI (Urinary Tract Infection): Female ([place]) documented in this encounter Assessments Diagnosis Abdominal pain, unspecified abdominal location- Primary Urinary tract infection without hematuria, site unspecified Intrauterine Reason for Referral Status Reason Specialty Diagnoses / Procedures Referre d By Contact Referred To Contact [facility]iology Diagnoses Leg swelling Procedures VL DUP LOWER EXTREMITY VENOUS BILATERAL Lidia Núñez MD [address] [place] [id number] Advance Directives Latest Code Status on File [...] seen since 07/21/2024 at 13 weeks gestation. Reason Comments Routine Visit Ordered Prescriptions (unrec ognized section and content) [...] 0837 (New Bag - Prov ider: Martha Tatum, CARLOS)0908 (Stopped - Provider: Erinn Simms, RN) ondansetron (ZOFRAN) injection 4 mg (COMPLETED) 4 mg, Intravenous, ONCE, On Sun05/18/21 at 0830, For 1 dose 0835 (Given - Provid er: Martha Tatum, CARLOS) Continuous Medication Order 05/16/2021 05/17/2021 05/18/2021 lactated ringers infusion Intravenous, at 999 mL/hr, CONTINUOUS, Starting on Sun05/18/21 at 0830 0820 (New Bag - Prov ider: Martha Tatum RN)0950 (Stopped - Provider: Erinn Simms, RN) INFORMATION SOURCE (unrecogn ized section and content) DATE CREATED AUTHOR 06/19/2021 [facility] DATE CREATED AUTHOR AUTHOR'S ORGANIZ ATION 05/07/2023 [facility] DATE CREATED AUTHOR AUTHOR'S ORGANIZ ATION 12/20/2024 [facility] Care Teams (unrecognized sec tion and content) Entry Level Account Representative Relationship Specialty Start Date End Date Jamila Velez MD [address] [place] [address] PCP - General Family Medicine 04/03/23 Quynh Vasquez PA [address] [place] [address] [place] [address] PCP - [facility] 02/25/24 Entry Level Account Representative Relationship Specialty Start Date End Date Jamila Velez MD [address] [place] [address] PCP - General Family Medicine 04/03/23 Quynh Vasquez PA [address] [place], [place] [address] [address] PCP - [facility] 02/25/24 Entry Level Account Representative Relationship Specialty Start Date End Date Jamila Velez MD [address] [place] [address] PCP - General Family Medicine 04/03/23 Quynh Vasquez PA [address] [place] [address] [place] [address] PCP - [facility] 02/25/24 Entry Level Account Representative Relationship Specialty Start Date End Date Jamila Veelz MD [address] [place] [address] PCP - General Family Medicine 04/03/23 Quynh Vasquez PA [address] [place] [address] [place] [address] PCP - [facility] 02/25/24 Entry Level Account Representative Relationship Specialty Start Date End Date Jamila Velez MD [address] [facility] [place] [address] PCP - General Family [facility] 04/03/23 Quynh Vasquez PA [address] [place] [address] [place] [address] PCP - [facility] 02/25/24 Entry Level Account Representative Relationship Specialty Start Date End Date Jamila Velez MD [address] [facility] [place] [address] PCP - General Family Medicine 04/03/23 Quynh Vasquez PA [address] [place] [address] [place] [address] PCP - [facility] 02/25/24 Entry Level Account Representative Relationship Specialty Start Date End Date Jamila Velez MD [address] [place] [address] PCP - General Family Medicine 04/03/23 Quynh Vasquez PA [address] [place] [address] [place] [address] PCP - [facility] 02/25/24 Entry Level Account Representative Relationship Specialty Start Date End Date Jamila Velez MD [address] [facility] [address] PCP - General Family Medicine 04/03/23 Quynh Vasquez PA [address] [place] [address] [place] [address] PCP - [facility] 02/25/24 Entry Level Account Representative Relationship Specialty Start Date End Date Jamila Velez MD [address] [place] [address] PCP - General Family [facility] 04/03/23 Quynh Vasquez PA [address] [place] [address] [place] [address] PCP - [facility] 02/25/24 Entry Level Account Representative Relationship Specialty Start Date End Date Jamila Velez MD [address] [place] [address] PCP - General Family Medicine 04/03/23 Quynh Vasquez PA [address] [place], [place] [address] [place] [address] PCP - [facility] 02/25/24 FOR RECORDS PERTAINING TO PATIENTS [...] BE BASED ON THE PRIMARY CLINICAL RECORDS. [facility]. provides no warranty or guarantee of the accuracy or completeness of information in this document.
== END 2024-12-24 07:00 | disposition home or self-care (01) ==
LOC: LAB 06:59
PROVIDERS: Visit Provider Obstetrics & Gynecology
DX: Z34.93 Encounter for supervision of normal pregnancy, unspecified, third trimester (principal)
CPT/HCPCS: 36415; 87081

== ENCOUNTER 2025-01-06 14:48 | Inpatient (IN) | payer OTHER, SELFPAY ==
[2025-01-06] VITALS (34 sets, daily range): BP systolic 103–131; BP diastolic 57–77; PULSE 90–119; TEMP 36.3–37.1; O2SAT 93–100
[2025-01-06 15:43] LABS: Basophils Percent Auto 0.2 % (0.2-2.0); Eosinophils Percent Auto 0.4 % (0.9-7.0); Hematocrit 37.7 % (36.0-48.0); Hemoglobin 12.1 g/dL (12.0-16.0); Immature Granulocytes Abs Auto 0.09 10^3/uL (0.00-0.03); Immature Granulocytes Pct Auto 0.9 % (0.0-0.5); Lymphocytes Absolute Auto 1.2 10^3/uL (1.2-3.8); Mean Corpuscular HGB Conc 32.1 g/dL (29.9-35.2); Mean Corpuscular Hemoglobin 27.4 pg (26.7-34.0); Mean Corpuscular Volume 85.3 fL (81.0-99.0); Mean Platelet Volume 10.7 fL (9.5-13.5); Monocytes Absolute Auto 0.6 10^3/uL (0.3-0.8); Monocytes Percent Auto 6.4 % (1.7-12.0); Neutrophils Absolute Auto 7.6 10^3/uL (1.4-6.5); Neutrophils Percent Auto 80.1 % (43.0-75.0); Platelet Count 284 10^3/uL (150-450); Red Cell Distribution Width 23.8 % (11.0-15.0); White Blood Count 9.6 10^3/uL (4.0-11.0)
[2025-01-06 15:56] LABS: Red Blood Count 4.42 10^6/uL (4.20-5.40)
[2025-01-06 15:58] LABS: Amphetamine Screen Urine NEGATIVE (NEGATIVE); Barbiturates Screen Urine NEGATIVE (NEGATIVE); Benzodiazepines Screen Urine NEGATIVE (NEGATIVE); Buprenorphine Screen Urine NEGATIVE (NEGATIVE); Cannabinoid Screen Urine NEGATIVE (NEGATIVE); Cocaine Screen Urine NEGATIVE (NEGATIVE); Methadone Screen Urine NEGATIVE (NEGATIVE); Methamphetamines Screen Urine NEGATIVE (NEGATIVE); Opiate Screen Urine NEGATIVE (NEGATIVE); Oxycodone Screen Urine NEGATIVE (NEGATIVE); Phencyclidine Screen Urine NEGATIVE (NEGATIVE); Tricyclic Antidepressant Urine NEGATIVE (NEGATIVE)
[2025-01-06] MEDS: 0.9 % SODIUM CHLORIDE 1,000 ML 1000 ML IV ×2 (17:38→19:15)
[2025-01-06] MEDS: FAMOTIDINE/PF 20 MG/2 ML VIAL IV (18:50)
[2025-01-06] MEDS: METOCLOPRAMIDE HCL 10 MG/2 ML VIAL IVP (18:50)
[2025-01-06] MEDS: CITRIC ACID/SODIUM CITRATE 30 ML SOLUTION ORACIT SHOHL'S SOLN PO (18:50)
[2025-01-06] MEDS: CEFAZOLIN SODIUM/DEXTROSE,ISO 2 GM/50 ML PIGGYBACK IV (19:28)
--- NOTE | 2025-01-06 19:41 | PM.ONB ---
Brief Operative Note Date of procedure: 01/06/25 Pre-op diagnosis general: iup at 38wks, large amniotic debri suggestive of meconium, blood, etc Post-op diagnosis: same as pre-op Procedure: NAME OF PROCEDURE: [ section ] PROCEDURE: Patient was taken back to the Operating Room where she was given a spinal anesthesia with Duramorph without difficulty. She was prepped and draped in the normal sterile fashion. A Pfannenstiel skin incision was then made 2 cm above the symphysis pubis and carried down to underlying rectus fascia using a Bovie. The fascia was incised in the midline and extended laterally using Page scissors. Two Isabel clamps were placed on the superior aspect of the fascia and dissected off the underlying rectus muscles. The same was performed on the inferior aspect as well. The muscles were then in the midline. Peritoneum was identified and entered bluntly. The peritoneum was then extended superiorly and inferiorly with good visualization of the bladder. The bladder blade was inserted. A low transverse incision was made on the patient's uterus and extended laterally digitally. The was then delivered atraumatically after the bladder blade was removed in the cephalic position. The cord was clamped and cut. Cord blood was obtained. The infant was handed off to awaiting team. The patient's placenta was spontaneously delivered. The uterus was then exteriorized. The uterus was cleared of all clots and debris. The bladder blade was reinserted. The patient's uterine incision was closed using #0 Vicryl in a running lock fashion. Excellent hemostasis was assured. The uterus was then returned to the patient's abdomen. The patient's abdomen was copiously irrigated using warm saline. Peritoneal gutters were cleared of all clots and debris. Again excellent hemostasis was assured. The patient's peritoneum was closed using 3-0 Vicryl in a running fashion. The patient's fascia was closed using #0 Vicryl in a running fashion. The patient's skin was closed using 4-0 Vicryl subcuticularly. The patient tolerated the procedure well. Sponge, lap, and needle counts were correct x2. The patient was taken to the Recovery Room in stable condition. Anesthesia: spinal Surgeon: Clyde Nelson Hide Washer: Jo Ann Dennis Estimated blood loss (mL): 575 Pathology: other (placenta) Condition: stable Disposition: PACU
[2025-01-06] MEDS: LACTATED RINGER'S SOLUTION 1,000 ML 50 ML IV (20:05)
--- NOTE | 2025-01-06 20:40 | P.OBPRC_ITS ---
Procedure Pre-op/Post-op diagnoses: Pre-Op/Post-Op Diagnoses Operation Date: 01/06/25 19:30 <No data on this case meets the specified criteria> Procedure: Procedures Operation Date: 01/06/25 19:30 Actual Procedure Side Surgeon p REPEAT Not Applicable Clyde Nelson DO Director Of Rotc: Jo Ann Dennis Estimated blood loss (mL): 575 Disposition: PACU Anesthesia type: Spinal
[2025-01-07] VITALS (11 sets, daily range): BP systolic 93–108; BP diastolic 48–58; TEMP 36.6–36.8; O2SAT 99
[2025-01-07] MEDS: CEFAZOLIN SODIUM/DEXTROSE,ISO 2 GM/50 ML PIGGYBACK IV (01:18)
[2025-01-07] MEDS: KETOROLAC TROMETHAMINE 30 MG/ML VIAL IVP ×4 (03:22→23:07)
[2025-01-07] MEDS: ACETAMINOPHEN 500 MG TABLET 1000 MG PO ×3 (03:29→20:23)
[2025-01-07 06:38] LABS: Basophils Percent Auto 0.1 % (0.2-2.0); Eosinophils Percent Auto 0.2 % (0.9-7.0); Hematocrit 31.8 % (36.0-48.0); Hemoglobin 9.8 g/dL (12.0-16.0); Immature Granulocytes Abs Auto 0.14 10^3/uL (0.00-0.03); Lymphocytes Absolute Auto 1.6 10^3/uL (1.2-3.8); Lymphocytes Percent Auto 10.8 % (20.5-60.0); Mean Corpuscular HGB Conc 30.8 g/dL (29.9-35.2); Mean Corpuscular Hemoglobin 26.6 pg (26.7-34.0); Mean Corpuscular Volume 86.4 fL (81.0-99.0); Mean Platelet Volume 10.4 fL (9.5-13.5); Monocytes Absolute Auto 1.1 10^3/uL (0.3-0.8); Monocytes Percent Auto 7.8 % (1.7-12.0); Neutrophils Absolute Auto 11.5 10^3/uL (1.4-6.5); Neutrophils Percent Auto 80.1 % (43.0-75.0); Platelet Count 251 10^3/uL (150-450); Red Blood Count 3.68 10^6/uL (4.20-5.40); Red Cell Distribution Width 23.8 % (11.0-15.0); White Blood Count 14.3 10^3/uL (4.0-11.0)
--- NOTE | 2025-01-07 07:15 | W.PC.ACHO ---
Registration Status: ADM IN Primary Language: Mosotho Preferred Language: Mosotho Report received from Jeannine RN at 0710. Care assumed. Active Medications Generic Name Dose Route Start Last Admin Trade Name Freq PRN Reason Stop Dose Admin Acetaminophen 1,000 mg 01/06/25 22:00 01/07/25 03:29 Acetaminophen 500 Mg Tablet PO 01/08/25 22:01 1,000 mg Q8H JASPER Administration Al Hydroxide/Mg Hydroxide 2,400 mg 01/06/25 20:42 Magnesium Hydroxide 2,400 Mg/10 Ml Oral.Susp PO Q6H PRN Dyspepsia Diphenhydramine HCl 25 mg 01/06/25 20:42 Diphenhydramine Hcl 50 Mg/Ml Vial IV 01/07/25 20:42 Q6H PRN Itching Diphtheria/Pertussis/Tetanus Vacc 0.5 ml 01/08/25 09:00 Adacel Diph,Pertuss(Acell),Tet Vac/Pf 0.5 Ml Adult Syringe IM 01/08/25 09:01 .ONCE ONE Docusate Sodium 100 mg 01/07/25 09:00 Docusate Sodium 100 Mg Capsule PO BID [facility] Enoxaparin Sodium 40 mg 01/07/25 09:00 Enoxaparin Sodium 40 Mg/0.4 Ml Syringe SUBQ Q24H JASPER Oxytocin/Sodium Chloride 20 units in 1,000 mls @ 125 mls/hr 01/06/25 14:58 Pitocin 20 Unit/1,000 Ml-Ns IV Q8H PRN POST DELIVERY Lactated Ringer's 1,000 mls @ 50 mls/hr 01/06/25 20:30 01/06/25 20:05 Lactated Ringers IV 50 mls/hr .Q20H JASPER Administration Promethazine HCl 25 mg/ Sodium 51 mls @ 204 mls/hr 01/06/25 20:42 Chloride IV Q6H PRN Nausea And Vomiting Sodium Chloride 1,000 mls @ 125 mls/hr 01/06/25 20:42 Sodium Chloride 0.9% 1,000 Ml IV .Q8H PRN IF NOT TOLERATING PO FLUIDS OR Ibuprofen 800 mg 01/06/25 20:42 Ibuprofen 400 Mg Tablet PO Q8H PRN Pain Ibuprofen 800 mg 01/07/25 21:00 Ibuprofen 400 Mg Tablet PO Q6H JASPER Ketorolac Tromethamine 30 mg 01/06/25 20:42 Ketorolac Tromethamine 30 Mg/Ml Vial IVP 01/08/25 20:43 Q6H PRN Pain Ketorolac Tromethamine 30 mg 01/07/25 03:00 01/07/25 03:22 Ketorolac Tromethamine 30 Mg/Ml Vial IVP 01/07/25 15:01 30 mg Q6H JASPER Administration Nalbuphine HCl 10 mg 01/06/25 20:42 Nalbuphine Hcl 10 Mg/Ml Ampule IV 01/07/25 20:42 Q3H PRN Itching Ondansetron HCl 4 mg 01/06/25 20:42 Ondansetron Pf 4 Mg/2 Ml Vial IV Q6H PRN Nausea And Vomiting Ondansetron HCl 4 mg 01/06/25 20:42 Ondansetron 4 Mg Rapdis Tablet PO Q6H PRN Nausea And Vomiting Oxycodone HCl 5 mg 01/06/25 20:42 Oxycodone Hcl 5 Mg Tablet PO Q4H PRN Breakthrough Pain Oxycodone/Acetaminophen 1 tab 01/06/25 20:42 Oxycodone Hcl/Acetaminophen 5mg/325mg PO Q4H PRN Pain Scale 4-6 Oxycodone/Acetaminophen 2 tab 01/06/25 20:42 Oxycodone Hcl/Acetaminophen 5mg/325mg PO Q4H PRN Pain Scale 7-10 Senna 17.2 mg 01/06/25 20:00 Sennosides 8.6 Mg Tablet PO QHS PRN Constipation Simethicone 80 mg 01/06/25 20:42 Simethicone 80 Mg Tab.Chew PO QID PRN Abdominal Distention Diet Category Date Time Status Regular Consistency Diet Diet 01/06/25 20:42 Active IV Insertion/Site Date of IV Line Insertion [ 01/06/25 left Hand] IV Insertion Time [left Hand] 15:32 Neurology Patient orientation (short person,place,time,situation list) [place] coma scale total score 15 [place] coma scale total score 15 [place] coma scale total score 15 Respiratory Pulse Oximetry 94 Pulse Oximetry 93 Pulse Oximetry 94 Pulse Oximetry 96 Pulse Oximetry 97 Pulse Oximetry 96 Pulse Oximetry 96 Pulse Oximetry 98 Pulse Oximetry 98 Pulse Oximetry 98 Pulse Oximetry 97 Pulse Oximetry 98 Pulse Oximetry 98 Pulse Oximetry 97 Pulse Oximetry 98 Pulse Oximetry 98 Pulse Oximetry 100 Pulse Oximetry 100 Pulse Oximetry 100 Pulse Oximetry 100 Pulse Oximetry 95 Oxygen Delivery Method Room Air Oxygen Delivery Method Room Air Oxygen Delivery Method Room Air Oxygen Delivery Method Room Air Oxygen Delivery Method Room Air Oxygen Delivery Method Room Air Bowels Bowel Pattern No Bowel Movement Bowel Pattern No Bowel Movement Catheter Urinary Catheter Date of 01/06/25 Insertion [Urethral] Urinary Catheter Time of 19:45 Insertion [Urethral]
--- NOTE | 2025-01-07 08:04 | PM.OBPN ---
OB - PN: Subj Subjective Patient comments: no complaints and pain well controlled [place] status: doing well Exam Constitutional Vital Signs, click to edit/add: Last Vital Signs Temp 97.4 F L 01/06/25 21:01 Pulse 110 H 01/06/25 23:32 Resp 46 H 01/06/25 23:20 BP 93/56 01/07/25 05:25 Pulse Ox 94 L 01/06/25 22:25 O2 Del Method Room Air 01/07/25 04:30 Documenting provider has reviewed patient's vital signs: yes Common normals: no apparent distress Respiratory Common normals: clear to auscultation bilaterally Cardio Common normals: regular rate and regular rhythm GI Common normals: Normal to inspection, nondistended, normoactive bowel sounds present Extremity Common normals: no clubbing, cyanosis or edema and no calf tenderness Results Labs Labs: Short CBC 01/06/25 01/07/25 Range/Units 15:15 06:23 WBC 9.6 14.3 H (4.0-11.0) 10^3/uL Hgb 12.1 9.8 L (12.0-16.0) g/dL Hct 37.7 31.8 L (36.0-48.0) % Plt Count 284 251 (150-450) 10^3/uL Urinary Catheter Management Urinary Catheter Management Urethral: Cath placed during this visit: yes Urethral indwelling: No Insertion date: 01/06/25 Insertion time: 19:45 OB - PN: A/P Plan - day: 1 Plan: routine postop care Time Spent with Patient Time: Total time spent is greater than 50% in coordination of care (as documented) at patient's floor/unit and/or counseling patient: Total time spent with greater than 50% in coordination of care (as documented) at patient's floor/unit and/or counseling patient: less than 15 minutes
[2025-01-07] MEDS: ENOXAPARIN SODIUM 40 MG/0.4 ML SYRINGE SUBQ (09:26)
[2025-01-07] MEDS: DOCUSATE SODIUM 100 MG CAPSULE PO ×2 (09:30→20:23)
--- NOTE | 2025-01-07 13:47 | PC.NURSE ---
IV covered for pt shower.
[2025-01-07] MEDS: CALCIUM CARBONATE 500 MG (200MG ELEMENTAL) TAB CHEW PO (17:37)
--- NOTE | 2025-01-07 19:44 | W.PC.ACHO ---
Registration Status: ADM IN Primary Language: Belgian Preferred Language: Belgian Report given to Heidi GONZALEZ at 1915. Care relinquished. Active Medications Generic Name Dose Route Start Last Admin Trade Name Freq PRN Reason Stop Dose Admin Acetaminophen 1,000 mg 01/06/25 22:00 01/07/25 12:36 Acetaminophen 500 Mg Tablet PO 01/08/25 22:01 1,000 mg Q8H JASPER Administration Al Hydroxide/Mg Hydroxide 2,400 mg 01/06/25 20:42 Magnesium Hydroxide 2,400 Mg/10 Ml Oral.Susp PO Q6H PRN Dyspepsia Calcium Carbonate 500 mg 01/07/25 17:09 01/07/25 17:37 Calcium Carbonate 500 Mg (200mg Elemental) Tab Chew PO 500 mg TID PRN Administration Heartburn Diphenhydramine HCl 25 mg 01/06/25 20:42 Diphenhydramine Hcl 50 Mg/Ml Vial IV 01/07/25 20:42 Q6H PRN Itching Diphtheria/Pertussis/Tetanus Vacc 0.5 ml 01/08/25 09:00 Adacel Diph,Pertuss(Acell),Tet Vac/Pf 0.5 Ml Adult Syringe IM 01/08/25 09:01 .ONCE ONE Docusate Sodium 100 mg 01/07/25 09:00 01/07/25 09:30 Docusate Sodium 100 Mg Capsule PO 100 mg BID JASPER Administration Enoxaparin Sodium 40 mg 01/07/25 09:00 01/07/25 09:26 Enoxaparin Sodium 40 Mg/0.4 Ml Syringe SUBQ 40 mg Q24H JASPER Administration Oxytocin/Sodium Chloride 20 units in 1,000 mls @ 125 mls/hr 01/06/25 14:58 Pitocin 20 Unit/1,000 Ml-Ns IV Q8H PRN POST DELIVERY Lactated Ringer's 1,000 mls @ 50 mls/hr 01/06/25 20:30 01/06/25 20:05 Lactated Ringers IV 50 mls/hr .Q20H JASPER Administration Promethazine HCl 25 mg/ Sodium 51 mls @ 204 mls/hr 01/06/25 20:42 Chloride IV Q6H PRN Nausea And Vomiting Sodium Chloride 1,000 mls @ 125 mls/hr 01/06/25 20:42 Sodium Chloride 0.9% 1,000 Ml IV .Q8H PRN IF NOT TOLERATING PO FLUIDS OR Ibuprofen 800 mg 01/06/25 20:42 Ibuprofen 400 Mg Tablet PO Q8H PRN Pain Ibuprofen 800 mg 01/07/25 21:00 Ibuprofen 400 Mg Tablet PO Q6H JASPER Ketorolac Tromethamine 30 mg 01/06/25 20:42 Ketorolac Tromethamine 30 Mg/Ml Vial IVP 01/08/25 20:43 Q6H PRN Pain Nalbuphine HCl 10 mg 01/06/25 20:42 Nalbuphine Hcl 10 Mg/Ml Ampule IV 01/07/25 20:42 Q3H PRN Itching Ondansetron HCl 4 mg 01/06/25 20:42 Ondansetron Pf 4 Mg/2 Ml Vial IV Q6H PRN Nausea And Vomiting Ondansetron HCl 4 mg 01/06/25 20:42 Ondansetron 4 Mg Rapdis Tablet PO Q6H PRN Nausea And Vomiting Oxycodone HCl 5 mg 01/06/25 20:42 Oxycodone Hcl 5 Mg Tablet PO Q4H PRN Breakthrough Pain Oxycodone/Acetaminophen 1 tab 01/06/25 20:42 Oxycodone Hcl/Acetaminophen 5mg/325mg PO Q4H PRN Pain Scale 4-6 Oxycodone/Acetaminophen 2 tab 01/06/25 20:42 Oxycodone Hcl/Acetaminophen 5mg/325mg PO Q4H PRN Pain Scale 7-10 Senna 17.2 mg 01/06/25 20:00 Sennosides 8.6 Mg Tablet PO QHS PRN Constipation Simethicone 80 mg 01/06/25 20:42 Simethicone 80 Mg Tab.Chew PO QID PRN Abdominal Distention Diet Category Date Time Status Regular Consistency Diet Diet 01/06/25 20:42 Active Neurology [place] coma scale total score 15 [place] coma scale total score 15 [place] coma scale total score 15 Respiratory Pulse Oximetry 94 Pulse Oximetry 93 Pulse Oximetry 94 Pulse Oximetry 96 Pulse Oximetry 97 Pulse Oximetry 96 Pulse Oximetry 96 Pulse Oximetry 98 Pulse Oximetry 98 Pulse Oximetry 98 Pulse Oximetry 97 Pulse Oximetry 98 Pulse Oximetry 98 Pulse Oximetry 97 Pulse Oximetry 98 Pulse Oximetry 98 Pulse Oximetry 100 Pulse Oximetry 100 Pulse Oximetry 100 Pulse Oximetry 100 Oxygen Delivery Method Room Air Oxygen Delivery Method Room Air Oxygen Delivery Method Room Air Oxygen Delivery Method Room Air Oxygen Delivery Method Room Air Oxygen Delivery Method Room Air Oxygen Delivery Method Room Air Oxygen Delivery Method Room Air Bowels Bowel Pattern No Bowel Movement Bowel Pattern No Bowel Movement Bowel Pattern No Bowel Movement Renal Bladder Pattern Continent Bladder Pattern Continent Catheter Urinary Catheter Date of 01/06/25 Insertion [Urethral] Urinary Catheter Date of 01/06/25 Insertion [Urethral] Urinary Catheter Time of 19:45 Insertion [Urethral] Urinary Catheter Time of 19:45 Insertion [Urethral] Date Urinary Catheter Removed 01/07/25 [Urethral] Time Urinary Catheter 12:30 Discontinued [Urethral]
[2025-01-07] MEDS: SIMETHICONE 80 MG TAB.CHEW PO (21:57)
[2025-01-08] MEDS: ACETAMINOPHEN 500 MG TABLET 1000 MG PO ×2 (04:24→18:52)
[2025-01-08 08:19] VITALS: BP 98/67; TEMP 36.6
[2025-01-08] MEDS: ENOXAPARIN SODIUM 40 MG/0.4 ML SYRINGE SUBQ (08:19)
[2025-01-08] MEDS: IBUPROFEN 400 MG TABLET 800 MG PO ×3 (08:19→20:48)
[2025-01-08] MEDS: DOCUSATE SODIUM 100 MG CAPSULE PO ×2 (08:19→20:48)
--- NOTE | 2025-01-08 08:52 | P.OBPN_ITS ---
OB - PN: Subj Subjective Patient comments: no complaints [place] status: doing well [place] feeding status: breast and bottle feeding Exam Constitutional Vital Signs, click to edit/add: Last Vital Signs Temp 98.1 F 01/07/25 23:08 Pulse 110 H 01/06/25 23:32 Resp 16 01/07/25 23:08 BP 108/54 01/07/25 23:06 Pulse Ox 99 01/07/25 23:05 O2 Del Method Room Air 01/07/25 23:08 Documenting provider has reviewed patient's vital signs: yes Common normals: no apparent distress General appearance: cooperative Orientation/consciousness: Yes awake, Yes oriented to person, Yes oriented to place and Yes oriented to time HENMT Common normals: normocephalic Neck & C-Spine Common normals: full ROM Lymph Lymphatic: no lymphadenopathy noted Chest Common normals: inspection of chest normal Respiratory Common normals: normal respiratory effort Effort & inspection: able to speak in complete sentences Auscultation: clear to auscultation bilaterally Cardio Common normals: regular rate and regular rhythm Rate: regular rate Rhythm: regular rhythm GI Inspection: normal to inspection Auscultation: normoactive bowel sounds Palpation: soft Common normals: no CVA tenderness Back & Pelvis Common normals: no CVA tenderness Extremity Common normals: normal to inspection Neuro Common normals: oriented x3 Sensorium/orientation: awake, alert, oriented to person, oriented to place and oriented to time Psych Common normals: mental status grossly normal Attitude: calm Thought process: normal thought process Urinary Catheter Management Urinary Catheter Management Urethral: Cath placed during this visit: yes, but has since been removed by the nurse Urethral indwelling: No Insertion date: 01/06/25 Insertion time: 19:45 Removal date: 01/07/25 Removal time: 12:30 OB - PN: A/P Assessment and Plan (1) Delivery by section: Plan repeat section, plan to discharge home today Plan - day: 2 Plan: routine postop care Time Spent with Patient Time: Total time spent is greater than 50% in coordination of care (as documented) at patient's floor/unit and/or counseling patient: Total time spent with greater than 50% in coordination of care (as documented) at patient's floor/unit and/or counseling patient: less than 15 minutes
[2025-01-08 16:04] VITALS: BP 108/65; TEMP 36.7
[2025-01-08 16:53] VITALS: O2SAT 99
[2025-01-09 00:51] VITALS: BP 98/61
--- NOTE | 2025-01-09 07:46 | PM.OBPN ---
OB - PN: Subj Subjective Patient comments: no complaints and pain well controlled [place] status: doing well Exam Constitutional Vital Signs, click to edit/add: Last Vital Signs Temp 98.1 F 01/08/25 16:04 Pulse 110 H 01/06/25 23:32 Resp 18 01/08/25 16:53 BP 98/61 01/09/25 00:51 Pulse Ox 99 01/08/25 16:53 O2 Del Method Room Air 01/08/25 22:30 Documenting provider has reviewed patient's vital signs: yes Common normals: no apparent distress Respiratory Common normals: normal respiratory effort and clear to auscultation bilaterally Cardio Common normals: regular rate and regular rhythm GI Common normals: Normal to inspection, nondistended, normoactive bowel sounds present Extremity Common normals: no clubbing, cyanosis or edema and no calf tenderness Urinary Catheter Management Urinary Catheter Management Urethral: Cath placed during this visit: yes, but has since been removed by the nurse Urethral indwelling: No Insertion date: 01/06/25 Insertion time: 19:45 Removal date: 01/07/25 Removal time: 12:30 OB - PN: A/P Assessment and Plan (1) Delivery by section: Plan - day: 3 Plan: routine postop care, discharge home and other (fu 1wk) Time Spent with Patient Time: Total time spent is greater than 50% in coordination of care (as documented) at patient's floor/unit and/or counseling patient: Total time spent with greater than 50% in coordination of care (as documented) at patient's floor/unit and/or counseling patient: less than 15 minutes
[2025-01-09] MEDS: IBUPROFEN 400 MG TABLET 800 MG PO (07:51)
[2025-01-09] MEDS: DOCUSATE SODIUM 100 MG CAPSULE PO (07:51)
[2025-01-09 08:00] VITALS: BP 111/73; PULSE 85; TEMP 36.6
[2025-01-09] MEDS: ENOXAPARIN SODIUM 40 MG/0.4 ML SYRINGE SUBQ (09:46)
[2025-01-09] MEDS: ACETAMINOPHEN 500 MG TABLET 1000 MG PO (12:40)
== END 2025-01-09 13:12 | disposition home or self-care (01) | DRG 540 ==
PROVIDERS: Admitting Provider Obstetrics & Gynecology; Visit Provider Obstetrics & Gynecology
PROC: 10D00Z1 Extraction of Products of Conception, Low, Open Approach (ICD-10-PCS; CPT 59514; principal; 2025-01-06 19:30)
DX: O41.8X30 Other specified disorders of amniotic fluid and membranes, third trimester, not applicable or unspecified (principal); O34.211 Maternal care for low transverse scar from previous cesarean delivery; Z3A.38 38 weeks gestation of pregnancy; Z37.0 Single live birth
CPT/HCPCS: 36415; 51702; 80307; 85025; 86850; 86900; 86901; 88307; 94667; 94668; J0690; J1100; J1650; J1885; J2274; J2371; J2405; J2765; J3490

== ENCOUNTER 2025-09-22 16:14 | Outpatient (OUT) | payer OTHER, SELFPAY ==
--- OUTSIDE RECORDS SUMMARY | 2024-06-23 12:45 | XMS_ITS ---
Author Organization Formerly [facility] vices Address [address] [place] [id number] Care Team Providers Care Asp Developer Name Role Phone Roslyn Foster [phone] REASON FOR VISIT Recall (A) (30) Social History Sex Assigned At : Social History Observation Description Sex Assigned At Female Encounters Encounter Location Date Provider Diagnosis [facility] [address], [place] [id number] 06/23/2024 Roslyn Foster Plan Of Treatment No Information Progress Notes * Ho GRIDERTahirOB: [birth year] (30 yo F)Acc No.[id number]:06/23/2024 Patient:Erika STEINBERG :?Roslyn Foster OUMARDOB:1995???Age:29 Y ???Sex:FemaleDate:4Phone:[phone]:[address] [place], [place] [id number] Subjective: * Chief Complaints: * 1 . Recall (A) (30). * Medical History: Objective: * Vitals: Assessment: Plan: * Treatment: * Billing Information: * Visit Code: * Procedure Codes: * Electronic signature of Roslyn Foster DMD on 09/22/2025 at 12:59 PM EDTSign off status: Pending * Provider: Olena Foster DMD Date: 0 06/23/2024 Generated for Printing/Faxing/eTransmitting on:?09/22/2025 12:59 PM EDT
--- OUTSIDE RECORDS SUMMARY | 2025-09-22 14:50 | XMS_ITS | Encounter Summary ---
Author Organization [facility] Address [address] [facility] [place] [address] Care Team Providers Care Music Pastor Name Role Phone Jamila Velez MD Primary Care Provider [phone] Quynh Vasquez Unavailable Reason for Visit * ReasonCommentsmissed cycles Encounter Details DateTypeDepartmentCare Team (Latest Contact Info)Hgkishhvgwm13/28/2025 2:50 PM EDTOffice Visit [facility] [address] [place] [address] Clyde Nelson DO [address] [place] [address] Missed menses; PCOS (polycystic ovarian syndrome) Social History Tobacco UseTypesPacks/DayYears UsedDateSmoking Tobacco: NeverSmokeless Tobacco: NeverAlcohol UseStandard Drinks/WeekCommentsNever0 (1 standard drink = 0.6 oz pure alcohol)Caffeine: noneSocial Connection and Isolation PanelAnswerDate RecordedIn a typical week, how many times do you talk on the phone with family, friends, or neighbors?Once a week05/07/2024How often do you get together with friends or relatives?Once a week05/07/2024How often do you attend worship or hindu services?Never05/07/2024o you belong to any clubs or organizations such as worship groups, unions, fraternal or athletic groups, or school groups?No 05/07/2024How often do you attend meetings of the clubs or organizations you belong to?Never05/07/2024re you , , , , never , or living with a partner?Living with oqhxslg0205/07/2024UDIT-CAnswerDate RecordedQ1: How often do you have a drink containing alcohol?Never05/07/2024Q2: How many drinks containing alcohol do you have on a typical day when you are drinking?Patient does not drink05/07/2024Q3: How often do you have six or more drinks on one occasion?Never05/07/2024Overall Financial Resource Strain (CARDIA) AnswerDate RecordedHow hard is it for you to pay for the very basics like food, housing, medical care, and heating?Not very hard05/07/2024HQ-2AnswerDate RecordedPatient Health Questionnaire-2 Nvqvl896F[facility] [place] of Occupational Health - Occupational Stress QuestionnaireAnswerDate RecordedDo you feel stress - tense, restless, nervous, or anxious, or unable to sleep at night because yourmind is troubled all the time - these days?Only a gboagu3205/07/2024 Exercise Vital SignAnswerDate RecordedOn average, how many days per week do you engage in moderate to strenuous exercise (like a brisk walk)?4 days05/07/2024On average, how many minutes do you engage in exercise at this level?60 min 05/07/2024Hunger Vital SignAnswerDate RecordedWithin the past 12 months, you worried that your food would run out before you got the money to buymore.Never true05/07/2024Within the past 12 months, the food you bought just didn't last and you didn't have money to get more.Never true05/07/2024RAPARE - TransportationAnswerDate RecordedIn the past 12 months, has lack of transportation kept you from medical appointments or from getting medications?No 05/07/2024In the past 12 months, has lack of transportation kept you from meetings, work, or from getting things needed for daily living?No05/07/2024 Housing Stability Vital SignAnswerDate RecordedIn the last 12 months, was there a time when you were not able to pay the mortgage or rent on time?No05/07/2024 Number of Times Moved in the Last YearNot on file05/07/2024t any time in the past 12 months, were you homeless or living in a senior living (including now)?No 05/07/2024CommentsNoSex and Gender InformationValueDate RecordedSex Assigned at BirthNot on fileLegal MmdPlllvd24/15/2023 11:16 PM EDTGender IdentityNot on fileSexual OrientationNot on filedocumented as of this encounter Last Filed Vital Signs Vital SignReadingTime TakenCommentsBlood Vcsrywmw873/7009/22/2025 3:20 PM EDT Pulse--Temperature--Respiratory Rate--Oxygen Saturation--Inhaled Oxygen Concentration--Rqakyw12.1 kg (174 lb 6.4 oz)09/22/2025 3:20 PM EDTHeight--Body Mass Index32.9503 9:31 AM ESTdocumented in this encounter Progress Notes * Marixa Parra LPN - 09/22/2025 2:50 PM EDT Reason for Appointment: Patient ID: Erika Reid is a 30 y.o. female who presents for missed cycles Patient presents today for Acute Visit. and Consult appointment. MEDICATIONS No current outpatient medications ALLERGIES Allergies Allergen Reactions Latex Hives, Swelling and Rash Red, swells PROBLEMS Active Ambulatory Problems Diagnosis Date Noted 29 weeks gestation of ([facility]) 05/08/2024 Abdominal trauma 05/08/2024 Anxiety about health 05/08/2024 Decreased movement affecting management of mother, antepartum ([facility]) 05/24/2021 Intermittent palpitations 05/08/2024 Missed period 05/08/2024 Slow transit constipation 05/08/2024 Postoperative follow-up 02/03/2025 Resolved Ambulatory Problems Diagnosis Date Noted No Resolved Ambulatory Problems Past Medical History: Diagnosis Date Anxiety Breast pain, left Depression History of History of migraine headaches Lower back pain Overweight (BMI 25.0-29.9) Pain of ovary Pelvic pain in female HISTORY PAST MEDICAL HISTORY SOCIAL HISTORY Past Medical History: Diagnosis Date Anxiety Breast pain, left Depression History of History of migraine headaches Lower [...] Nanette Reid stage 2 Asthma Mother Nanette Reid Mental illness Father Migraines Sister Viji Packer Mental illness Sister Viji Packer Asthma Sister Viji Packer Mental illness Brother Tong Packer Migraines Brother Tong Packer Asthma Brother Tong Packer No Known Problems Son Asthma Brother Sami Packer SURGICAL HISTORY Past Surgical History: Procedure Laterality Date SECTION, CLASSIC 01/06/2025 SECTION, LOW TRANSVERSE 08/31/2021 SECTION, LOW TRANSVERSE 11/02/2023 REVIEW OF SYSTEMS Review of Systems: Review of Systems Constitutional: Negative. HENT: Negative. Eyes: Negative. Respiratory: Negative. Cardiovascular: Negative. Gastrointestinal: Negative. Genitourinary: Negative. Musculoskeletal: Negative. Skin: Negative. Neurological: Negative. All other systems reviewed and are negative. Hematological: Negative. Endocrine: Negative. Allergic/Immunologic: Negative. OBJECTIVE Objective: Physical Exam Constitutional: Appearance: Normal appearance. She is well-developed. Cardiovascular: Rate and Rhythm: Normal rate and [...] nursing note reviewed. Exam conducted with a fixed wing aircraft crew chief present. Vitals: Estimated body mass index is 32.95 kg/m?? as calculated from the following: Height as of 01/24/25: 5' 1 . Weight as of this encounter: 174 lb 6.4 oz. BP: 120/70 No LMP recorded (within months). Assessment/Plan ICD-10-CM 1. Missed menses N92.6 POCT , urine manually resulted hCG, quantitative, TSH T4, free CBC and differential Follicle stimulating hormone Luteinizing hormone Hemoglobin A1c DHEA-sulfate DHEA US Pelvis w/ TV Prolactin Estradiol Progesterone DHEA 2. PCOS (polycystic ovarian syndrome) E28.2 hCG, quantitative, TSH T4, free CBC and differential Follicle stimulating hormone Luteinizing hormone DHEA-sulfate DHEA US Pelvis w/ TV DHEA Pt presents with complaints of weight gain, tunnel vision no cycles for 3 months, spotting and brown discharge, pt only eating once a day. Pt given labs and ultrasound orders to have obtained. No hernia appreciated. Pt to return in 3-4 weeks for annual. Documented by Marixa Parra LPN on behalf of: Clyde Nelson DO documented in this encounter Plan of Treatment DateTypeDepartmentCare Team (Latest Contact Info)Lqdjvobatcj28/29/2025 2:30 PM EDTAncillary Procedure [facility] [address] [place] [address] 10/27/2025 1:40 PM ESTProcedure Visit [facility] [address] [place] [address] [place] [address] Clyde Nelson DO [address] [place], [place] [id number] NameTypePriorityAssociated DiagnosesOrder SchedulehCG, quantitative, LabRoutine Missed menses PCOS (polycystic ovarian syndrome) Ordered: 09/22/2025TSHLabRoutine Missed menses PCOS (polycystic ovarian syndrome) Ordered: 09/22/2025T4, freeLabRoutine Missed menses PCOS (polycystic ovarian syndrome) Ordered: 09/22/2025BC and differentialLabRoutine Missed menses PCOS (polycystic ovarian syndrome) Ordered: 09/22/2025Follicle stimulating hormoneLabRoutine Missed menses PCOS (polycystic ovarian syndrome) Ordered: 09/22/2025Luteinizing hormoneLabRoutine Missed menses PCOS (polycystic ovarian syndrome) Ordered: 09/22/2025Hemoglobin U2oZpvSxlbbpk Missed menses Ordered: 09/22/2025DHEA-sulfateLabRoutine Missed menses PCOS (polycystic ovarian syndrome) Ordered: 09/22/2025DHEALabRoutine Missed menses PCOS (polycystic ovarian syndrome) Expected: 09/22/2025 (Approximate), Expires: 09/22/2026US Pelvis w/ TVImaging Routine Missed menses PCOS (polycystic ovarian syndrome) Expected: 09/22/2025, Expires: 09/22/2026ProlactinLabRoutine Missed menses Ordered: 09/22/2025EstradiolLabRoutine Missed menses Ordered: 09/22/2025ProgesteroneLabRoutine Missed menses Ordered: 09/22/2025documented as of this encounter Goals GoalPatient Goal TypeAssociated ProblemsRecent ProgressPatient-Stated?Author Reminders Care PlanOB RemindersNoOpen Scheduling, Backgrounddocumented as of this encounter Procedures Procedure NamePriorityDate/TimeAssociated DiagnosisCommentsPOCT , URINE Qlrkitq1009/22/2025 3:33 PM EDT Missed menses documented in this encounter Results * POCT , urine manually resulted (09/22/2025 3:33 PM EDT)ComponentValue Ref RangeTest MethodAnalysis TimePerformed AtPathologist SignaturePreg Test, UrNegativeNegativeSpecimen (Source)Anatomical Location / LateralityCollection Method / VolumeCollection TimeReceived JscvVchqw88/28/2025 3:33 PM EDT Narrative Authorizing ProviderResult TypeResult StatusCorey Leslie DOPOINT OF CARE TEST ENTER/EDIT ORDERABLESFinal Result documented in this encounter Visit Diagnoses Diagnosis Missed menses PCOS (polycystic ovarian syndrome) Polycystic ovaries documented in this encounter Additional Health Concerns Active ProblemsNoted DateDiagnosed DateOB Fykcxrhae51/03/2025 documented as of this encounter Care Teams Team MemberRelationshipSpecialtyStart DateEnd Date Jamila Velez MD [address] [place] [address] [facility] - [facility] Quynh Vasquez PA [address] [place] [address] [place] [address] PCP - [facility]02/25/24documented as of this encounter
--- OUTSIDE RECORDS SUMMARY | 2025-09-22 16:19 | XMS_ITS | Clinical Summary ---
Author Organization [facility] Address [address] [place] [address] Care Team Providers Care Mortgage Analyst Name Role Phone Jamila Velez MD Primary Care Provider [phone] Quynh Vasquez Unavailable Allergies Active AllergyReactionsCriticalityNoted DateCommentsLatexHives,Swelling,RashLow 06/24/2020 Red, swells Medications MedicationSigDispense QuantityRefillsLast FilledStart DateEnd DateStatus docusate sodium (Colace) 100 MG capsule Indications:Constipation during in third trimester ([facility])Take 1 capsule (100 mg) by mouth 2 (two) times a day as needed for constipation for up to 60 doses 60 capsule Discontinued norethindrone-ethinyl estradiol (12/15) 1-20 MG-MCG tablet Indications:6 weeks follow-up ([facility])Take 1 tablet by mouth Daily Take 1 tablet by mouth daily 84 tablet Discontinued Active Problems ProblemNoted DateDiagnosed DatePostoperative follow-up weeks gestation of ([facility])05/08/2024bdominal bqxhbq2305/08/2024nxiety about hxphud7505/08/2024Intermittent ccaodogyyern69/13/2024Missed nccluf4505/08/2024 Slow transit laxshsikaztu45/13/2024ecreased movement affecting management of mother, antepartum ([facility])05/24/2021 Encounters DateTypeDepartmentCare YxroJetkobdurcw69/28/2025 2:50 PM EDTOffice Visit [facility] [address] [place] [phone] Clyde Nelson, Missed menses; PCOS (polycystic ovarian syndrome)5Bamboo flowsheet [facility] [address] [place] [address] Clyde Nelson, 08/04/2025Telephone [facility] [address] [place] [address] Allyssa Da Silva LPN from Last 3 Months Immunizations ImmunizationAdministration DatesNext PnrSEQ72Influenjp, nadja, intranasal 11/08/2012Tdap05/16/2013 Family History Medical HistoryRelationNameCommentsAsthmaBrother 1Felix MontalvoMental illness Brother 1Felix MontalvoMigrainesBrother 1Felix MontalvoAsthmaBrother 2Nathaniel MontalvoMental illnessFatherAsthmaMotherChristina ShertzerBreast cancerMother Nanette Gallowaytaangelika 2Mental illnessMotherChristina ShertzerMigrainesMother Nanette ShertzerheadacheMotherChristina ShertzerAsthmaSisterAlexyia Packer Mental illnessSisterAlexyia MontalvoMigrainesSisterAlexyia MontalvoNo Known ProblemsSonRelationNameStatusCommentsBrother 1Felix Montalvo4 brothersBrother 2 Sami MontalvoFatherAliveMotherChristina ShertzerAliveSisterAlexyia Packer 4 sistersSonAlive Social History Tobacco UseTypesPacks/DayYears UsedDateSmoking Tobacco: NeverSmokeless Tobacco: Never Tobacco Cessation:Counseling Given: Not Answered Alcohol UseStandard Drinks/WeekCommentsNever0 (1 standard drink = 0.6 oz pure alcohol)Caffeine: noneSocial Connection and Isolation PanelAnswerDate RecordedIn a typical week, how many times do you talk on the phone with family, friends, or neighbors?Once a week05/07/2024How often do you get together with friends or relatives?Once a week05/07/2024How often do you attend zoroastrian or mosque services?Never05/07/2024o you belong to any clubs or organizations such as zoroastrian groups, unions, fraternal or athletic groups, or school groups?No 05/07/2024How often do you attend meetings of the clubs or organizations you belong to?Never05/07/2024re you , , , , never , or living with a partner?Living with qfphrmu9905/07/2024UDIT-CAnswerDate RecordedQ1: How often do you have a [...] and heating?Not very hard05/07/2024HQ-2AnswerDate RecordedPatient Health Questionnaire-2 Rttld658[facility] [place] of Occup[facility] Health - Occupational Stress QuestionnaireAnswerDate RecordedDo you feel stress - tense, restless, nervous, or anxious, or unable to sleep at night because yourmind is troubled all the time - these days?Only a yxlmob6705/07/2024 Exercise Vital SignAnswerDate RecordedOn average, how many [...] were you homeless or living in a jail (including now)?No 05/07/2024CommentsNoSex and Gender InformationValueDate RecordedSex Assigned at BirthNot on fileLegal DlnLossza72/15/2023 11:16 PM EDTGender IdentityNot on fileSexual OrientationNot on file Last Filed Vital Signs Vital SignReadingTime TakenCommentsBlood Pavbsiji058/7010 3:20 PM EDT Ybddl8855 2:56 PM ZQRHaeyyysfjcg64 ??C (98.6 ??F)01/24/2025 9:31 AM EST Respiratory Wjeh8612 4:03 PM EDTOxygen Beqsozkbqf55%01/30/2025 2:56 PM ESTInhaled Oxygen Concentration--Cerfsn28.1 kg (174 lb 6.4 oz)09/22/2025 3:20 PM PLZHlxjwh996.9 cm (5' 1 )01/24/2025 9:31 AM ESTBody Mass Index32.9503 9:31 AM EST Plan of Treatment DateTypeDepartmentCare Team (Latest Contact Info)Bhqkyprcpla98/29/2025 2:30 PM EDTAncillary Procedure [facility] [address] [address] [place] [address] 10/27/2025 1:40 PM ESTProcedure Visit [facility] [address] [facility] [place] [address] Clyde Nelson, DO [address] [place] [address] Health MaintenanceDue DateLast DoneCommentsMMR Vaccines (1 of 1 - Standard series)12/06/2012Varicella Vaccines (1 of 2 - 13+ 2-dose series)12/06/2012 Hepatitis B Vaccines (1 of 3 - 19+ 3-dose series)2013HPV Vaccines (1 - 3- dose SCDM series)2021TaP/Tdap/Td Vaccines (3 - Td or Tdap)03/04/2022 09/03/2021, 05/16/2013HPV/Rxyovg684COVID-19 Vaccine ( - season) 2025Influenza Vaccine (#1)/Cervical Cancer Screening 06/13/2026Pap Smear/, 07/04/2022HIB VaccinesAged OutNo longer eligible based on patient's age to complete this topicHepatitis A VaccinesAged OutNo longer eligible based on patient's age to complete this topicIPV Vaccines Aged OutNo longer eligible based on patient's age to complete this topic Meningococcal B VaccineAged OutNo longer eligible based on patient's age to complete this topicMeningococcal VaccineAged OutNo longer eligible based on patient's age to complete this topicPneumococcal Vaccine: Pediatrics (0 to 5 Years) and At-Risk Patients (6 to 64 Years)Aged OutNo longer eligible based on patient's age to complete this topicRotavirus VaccinesAged OutNo longer eligible based on patient's age to complete this topic Goals GoalPatient Goal TypeAssociated ProblemsRecent ProgressPatient-Stated?Author Reminders Care PlanOB RemindersNoOpen Scheduling, Background Procedures Procedure NamePriorityDate/TimeAssociated DiagnosisCommentsPOCT , URINE Qitoubp2509/22/2025 3:33 PM EDT Missed menses PAP MHHOAXsgsugj38/19/2023 12:00 AM EDTfrom Last 3 Months or Most Recently Relevant to Health Maintenance Results * POCT , urine manually resulted (09/22/2025 3:33 PM EDT)ComponentValue Ref RangeTest MethodAnalysis TimePerformed AtPathologist SignaturePreg Test, UrNegativeNegativeSpecimen (Source)Anatomical Location / LateralityCollection Method / VolumeCollection TimeReceived CtpbAbucu64/28/2025 3:33 PM EDT Narrative Authorizing ProviderResult TypeResult StatusCorey Leslie DOPOINT OF CARE TEST ENTER/EDIT ORDERABLESFinal Result * Pap Smear (06/13/2023 12:00 AM EDT)Specimen (Source)Anatomical Location / LateralityCollection Method / VolumeCollection TimeReceived TimeSwabCervical swab / Unknown Narrative Authorizing ProviderResult TypeResult StatusHistorical Provider STEF CYTOLOGY ORDERABLESFinal ResultPerforming OrganizationAddressCity/State/ZIP CodePhone Number EXTERNAL LAB from Last 3 Months or Most Recently Relevant to Health Maintenance Additional Health Concerns Active ProblemsNoted DateDiagnosed DateOB Auhjqeasw79/03/2025 Insurance Care Teams Team MemberRelationshipSpecialtyStart DateEnd Date Jamila Velez MD [address] [facility] [place] [address] PCP - GeneralFamily Medicine04/03/23 Quynh Vasquez PA [address] [place] [address] [facility]02/25/24
--- OUTSIDE RECORDS SUMMARY | 2025-09-22 16:19 | XMS_ITS | Clinical Summary ---
Author Organization [facility] tem Address [id number] [address] [place] [address] Care Team Providers Care Power Plant Manager Name Role Phone No Pcp, No Pcp Primary Care Provider Unavailabl e Allergies Active AllergyReactionsCriticalityNoted OhabZztclzzlRidyjTmjsLqe94/30/2020 Medications No known medications Family History Medical HistoryRelationNameCommentsCervical cancerMaternal AuntMiscarriages / StillbirthsMaternal AuntCervical cancerMotherMiscarriages / StillbirthsMother Miscarriages / StillbirthsSisterRelationNameStatusCommentsMaternal AuntAlive MotherAliveSisterAlive Social History Tobacco UseTypesPacks/DayYears UsedDateSmoking Tobacco: NeverSmokeless Tobacco: Never Tobacco Cessation:Counseling Given: No Alcohol UseStandard Drinks/WeekCommentsNot Currently0 (1 standard drink = 0.6 oz pure alcohol)RARELYChildcareAnswerDate AbvjcnbvQllrycslxQmduohr31/12/2019 EmploymentAnswerDate JuqfsyhmBdlpebecwdVbzjlgq89/12/2019Purpose - LifeAnswerDate RecordedPurpose and direction in ajisKezjwpx38/11/2021CommentsNoSex and Gender InformationValueDate RecordedSex Assigned at BirthNot on fileLegal Sex Plxqeg8507/01/2015 11:48 AM EDTGender IdentityNot on fileSexual OrientationNot on file Last Filed Vital Signs Vital SignReadingTime TakenCommentsBlood Ukofdqfm877/7111 9:01 PM EST Ujgho88861/25/2020 8:27 PM WKFMaajceliosy88.7 ??C (98.1 ??F)10/20/2020 7:58 PM ESTRespiratory Ppsu3392 8:27 PM ESTOxygen Pfowsvjcrr24%10/20/2020 9:01 PM ESTInhaled Oxygen Concentration--Pxznwu55.4 kg (142 lb)10/20/2020 7:58 PM EST Bapwju888.9 cm (5' 1 )10/20/2020 7:58 PM ESTBody Mass Index26.8310/20/2020 7:58 PM EST Plan of Treatment Health MaintenanceDue DateLast DoneCommentsDepression Ybkbfyqfg07/09/2006Tobacco Hzycybwjb22/09/2006dult BMI Tuvairefu18/09/2012Pap Smear2015DTaP,Tdap and Td Vaccines (2 - Td or Tdap)Influenza Avwurpi6507/27/2025 11/08/2012 Medical Devices Not on file Insurance Care Teams Team MemberRelationshipSpecialtyStart DateEnd Date [place] [id number] [facility]
--- OUTSIDE RECORDS SUMMARY | 2025-09-22 16:19 | XMS_ITS | Clinical Summary ---
Author Organization [facility] Address [address], [address] [place] [address] Care Team Providers Care Agility Instructor Name Role Phone Unavailable Primary Care Provider Unavailabl e Allergies Active AllergyReactionsCriticalityNoted XqxkFiuodwzmLgidmQzbqgprh93/05/2021 Medications MedicationSigDispense QuantityRefillsLast FilledStart DateEnd DateStatus Vit-Fe Fumarate-FA ( VITAMIN PO) Take 1 tablet by mouth dailyActive Calcium Carbonate Antacid (TUMS PO) Take by mouthActive cephALEXin (KEFLEX) 500 MG capsule Take 500 mg by mouth 2 times dailyActive Active Problems ProblemNoted DateDiagnosed DateDecreased movement affecting management of mother, zeqbolzyic02/29/2021bdominal weeks gestation of Social History Tobacco UseTypesPacks/DayYears UsedDateSmoking Tobacco: NeverSmokeless Tobacco: NeverAlcohol UseStandard Drinks/WeekCommentsNot Currently0 (1 standard drink = 0.6 oz pure alcohol)CommentsNoSex and Gender InformationValueDate RecordedSex Assigned at BirthNot on fileLegal TauCebnyf22/10/2013 5:52 PM EST Gender IdentityNot on fileSexual OrientationNot on file Last Filed Vital Signs Vital SignReadingTime TakenCommentsBlood Gxinsrja092/6207 11:58 PM EDT Gcwrk1716 11:58 PM XEGAveabxtwjty65.5 ??C (97.7 ??F)06/16/2021 8:33 PM EDTRespiratory Ohip950706/16/2021 11:58 PM EDTOxygen Ktsdsneddw495%04/14/2021 3:30 AM EDTInhaled Oxygen Concentration--Wuodqo89.3 kg (155 lb)05/18/2021 6:45 AM EDT Usbfxe820.9 cm (5' 1 )05/18/2021 6:45 AM EDTBody Mass Index29.29005/18/2021 6:45 AM EDT Plan of Treatment Not on file Insurance Advance Directives * Full Code (Latest Code Status on File) Date ActivatedDate InactivatedComments06/16/2021 8:46 PM06/17/2021 2:19 AM * Full Code Date ActivatedDate InactivatedComments05/24/2021 11:37 PM05/25/2021 3:20 AM * Full Code Date ActivatedDate InactivatedComments05/18/2021 6:36 AM05/18/2021 12:55 PM
--- OUTSIDE RECORDS SUMMARY | 2025-09-22 16:19 | XMS_ITS | Encounter Summary ---
Author Organization [facility] Address [address] [place] [address] Care Team Providers Care Instructional Support Services Director Name Role Phone Jamila Velez MD Primary Care Provider [phone] Quynh Vasquez Unavailable Encounter Details DateTypeDepartmentCare Team (Latest Contact Info)Lyudndfgzan86/28/2025Bamboo flowsheet [facility] [address] [place] [address] Clyde Nelson DO [address] [place], [place] [id number] Social History Tobacco UseTypesPacks/DayYears UsedDateSmoking Tobacco: NeverSmokeless Tobacco: NeverAlcohol UseStandard Drinks/WeekCommentsNever0 (1 standard drink = 0.6 oz pure alcohol)Caffeine: noneSocial Connection and Isolation PanelAnswerDate RecordedIn a typical week, how many times do you talk on the phone with family, friends, or neighbors?Once a week05/07/2024How often do you get together with friends or relatives?Once a week05/07/2024How often do you attend orthodox or mu-ism services?Never4Do you belong to any clubs or organizations such as orthodox groups, unions, fraternal or athletic groups, or school groups?No 05/07/2024How often do you attend meetings of the clubs or organizations you belong to?Never05/07/2024re you , , , , never , or living with a partner?Living with xyywnsq5305/07/2024UDIT-CAnswerDate RecordedQ1: How often do you have a [...] and heating?Not very hard05/07/2024HQ-2AnswerDate RecordedPatient Health Questionnaire-2 [facility]922[facility] [place] [facility] - Occupational Stress QuestionnaireAnswerDate RecordedDo you feel stress - tense, restless, nervous, or anxious, or unable to sleep at night because yourmind is troubled all the time - these days?Only a eelsit0105/07/2024 Exercise Vital SignAnswerDate RecordedOn average, how many [...] Times Moved in the Last YearNot on file4At any time in the past 12 months, were you homeless or living in a care home (including now)?No 05/07/2024CommentsNoSex and Gender InformationValueDate RecordedSex Assigned at BirthNot on fileLegal QjqNrafct44/15/2023 11:16 PM EDTGender IdentityNot on fileSexual OrientationNot on filedocumented as of this encounter Plan of Treatment DateTypeDepartmentCare Team (Latest Contact Info)Kuhvmqicaur45/29/2025 2:30 PM EDTAncillary Procedure [facility] [address] [place] [address] 10/27/2025 1:40 PM ESTProcedure Visit [facility] [address] [place] [address] Clyde Nelson DO [address] [place], [place] [id number] documented as of this encounter Goals GoalPatient Goal TypeAssociated ProblemsRecent ProgressPatient-Stated?Author Reminders Care PlanOB RemindersNoOpen Scheduling, Backgrounddocumented as of this encounter Visit Diagnoses Not on filedocumented in this encounter Additional Health Concerns Active ProblemsNoted DateDiagnosed DateOB Rwffxstzr52/03/2025 documented as of this encounter Care Teams Team MemberRelationshipSpecialtyStart DateEnd Date Jamila Velez MD [address] [place] [address] [facility] Quynh Vasquez PA [address] [place], [place] [id number] PCP - [facility]02/25/24documented as of this encounter
--- OUTSIDE RECORDS SUMMARY | 2025-09-22 16:19 | XMS_ITS | Clinical Summary ---
Author Organization [facility] Address [address] [facility] [address] [place] [address] Care Team Providers Care State Farm Agent Team Member Name Role Phone Unavailable Primary Care Provider Unavailabl e Source Comments The following information is NOT included in Care Everywhere downloads:Psychiatric notes, ECG results, Cardiac Rehab notes, Pulmonary Function notes, data from SmartForms (includes but not limited toPregnancy data,audiograms, eye exams, pre-surgical evaluation notes, well-child exam data).[facility] Social History Tobacco UseTypesPacks/DayYears UsedDateSmoking Tobacco: Never Assessed CommentsUnknownSex and Gender InformationValueDate RecordedSex Assigned at Not on fileLegal ZrzDnmxmb07/10/2023 11:47 AM ESTGender IdentityNot on file Sexual OrientationNot on file Plan of Treatment Health MaintenanceDue DateLast DoneCommentsHIV Test2009Hepatitis C Mefvedzt89/09/2012Tdap Bsntpxf4401/04/2012Hepatitis A (HAV) Vaccine (optional start 19+ years)2013Hepatitis B (HBV) Vaccine (1 of 3 - 19+ 3-dose series) 2013Tetanus (Td or Tdap) Fcfuwma7901/04/2013Pap Smear2015HPV Vaccine (optional start 27-45 years)1COVID-19 Vaccine ( - 2024-26 season) 2025Influenza Vaccine (#1)2025Shingles (RZV) Vaccine (1 of 2) 2044MammographyDiscontinuedPneumococcal Vaccine(s)Aged OutNo longer eligible based on patient's age to complete this topic Insurance on file * Guarantor: Alejandro Reid TypeRelation to PatientDate of BirthPhone Billing AddressPersonal/[address]kw[address] [facility] [address] [place] [address]
--- OUTSIDE RECORDS SUMMARY | 2025-09-22 16:20 | XMS_ITS | CCD ---
Author Organization [facility] Care Team Providers Care Terrazzo Grinder Name Role Phone Unavailable Primary Care Provider [...] Unavailable LESLIE ., DR GUARDADO Attending Unavailable WHITMER, DR AMNA Ames Consulting Unavailable LESLIE ., [...] MARIO ., ARSH Attending Unavailable [facility] [place] ALLRED Primary Care Unavailable MARIO ., ARSH Consulting Unavailable Rosie CHENEY, Jamila Porras Primary Care Provider [phone] Quynh Burnett Unavailable CHRISTINA, QUYNH Attending Unavailable LESLIE, CLYDE Attending Unavailable CHRISTINA, QUYNH Attending Unavailable CHRISTINA, QUYNH Attending Unavailable CHRISTINA, QUYNH Referring Unavailable LESLIE, CLYDE Attending Unavailable ROSIE, JAMILA F Attending Unavailable ROSIE, JAMILA F Attending Unavailable CHRISTINA, QUYNH Attending Unavailable LESLIE, CLYDE Attending Unavailable LESLIE, CLYDE Attending Unavailable LESLIE, CLYDE Attending Unavailable LESLIE, CLYDE Attending Unavailable ROSIE, JAMILA F Attending Unavailable CHRISTINA, QUYNH Attending Unavailable CHRISTINA, QUYNH Attending Unavailable LESLIE, CLYDE Attending Unavailable Christina WILDER, Quynh Unavailable Allergies Allergy ClassificationReported Allergen(s)Allergy TypeDate of OnsetReaction(s) FacilityLatex (5 sources)LatexSubstance Pyuulqd08-87-2287LfyeiaeeRgyrh Health (1 source)LatexPropensity to adverse reactions to xywi21-83-7267[facility] Work Phone: (1 source)LatexDrug allergy (disorder)[facility] (20 sources)LatexPropensity to adverse uddwbspsi13-20-9097Hvgwb, Swelling, Rash [facility] Work Phone: Medications Current Medications MedicationDrug Class(es)DatesSig (Normalized)Sig (Original)acetaminophen 500 mg oral tablet (4 sources)Start: 08-13-2024 End: 25-98-9381lrnq 1 tablet by mouth every six hours for painacetaminophen (Tylenol Extra Strength) 500 MG tablet Indications: Acute non-recurrent maxillary sinusitis Take 1 tablet (500 mg) by mouth every 6 (six) hours if needed for mild pain for up to 10 days40 tablet 08/13/2024 08/23/2024 Active Start: 05-18-2021 End: 74-10-1135oeevnzxdrmdli (TYLENOL) tablet 1,000 mgamoxicillin 500 mg oral capsule (3 sources)Penicillin-class AntibacterialStart: 08-13-2024 End: 61-77-0078mlxo 1 capsule by mouth in the morning, then take 1 capsule by mouth in the evening, then take 1 capsule by mouth at bedtimeamoxicillin (Amoxil) 500 MG capsule Indications: Acute non-recurrent maxillary sinusitis Take 1 capsule (500 mg) by mouth in the morning and 1 capsule (500 mg) in the evening and 1 capsule (500 mg) before bedtime. Do all this for 10 days. 30 capsule 08/13/2024 08/23/2024 Activebenzonatate 200 mg oral capsule (3 sources)Non-narcotic AntitussiveStart: 01-22-2025 End: 64-99-8025jcej 1 capsule by mouth three times daily as needed for cough benzonatate (Tessalon) 200 MG capsule Indications: Acute bronchitis, unspecified organism Take 1 capsule (200 mg) by mouth 3 (three) times a day as needed for cough for up to 7 days Do not crush or chew. 20 capsule 01/22/2025 01/29/2025 ActiveCalcium Carbonate Antacid (TUMS PO) (5 sources)Calcium Carbonate Antacid (TUMS PO) Take by mouth 0 Activecalcium chloride 0.0014 meq/ml / potassium chloride 0.004 meq/ml / sodium chloride 0.103 meq/ml / sodium lactate 0.028 meq/ml injectable solution (1 source)Start: 16-23-0321wbgctrck ringers infusioncephalexin 500 mg oral capsule (6 sources)Cephalosporin AntibacterialStart: 01-30-2025 End: 19-51-1318xtdl 1 capsule by mouth in the morning, then take 1 capsule by mouth in the evening, then take 1 capsule by mouth at bedtimecephalexin (Keflex) 500 MG capsule Indications: Acute bronchitis, unspecified organism Take 1 capsul e (500 mg) by mouth in the morning and 1 capsule (500 mg) in the evening and 1 capsule (500 mg) before bedtime. Do all this for 10 days. 30 capsule 01/30/2025 02/09/2025 ActiveStart: 02-28-2021 End: 05-37-9497oark 1 capsule by mouth three times dailycephALEXin (KEFLEX) 500 MG capsule Take 1 capsule by mouth 3 times daily for 7 days 21 capsule 0 03/202103/07/2021 Activetake 1 capsule by mouth twice dailycephALEXin (KEFLEX) 500 MG capsule Take 500 mg by mouth 2 times daily 0 Active2 ml famotidine 10 mg/ml injection (1 source)Histamine-2 Receptor AntagonistStart: 04-14-2021 End: 71-40-5986vowdlkkjbg (PEPCID) injection 20 mgStart: 04-14-2021 End: 39-54-4754rtoofytflk (PEPCID) injection 20 mgmetroNIDAZOLE 500 mg oral tablet (2 sources)Nitroimidazole AntimicrobialStart: 12-25-2024 End: 06-45-8663tlvb 1 tablet by mouth in the morningmetroNIDAZOLE (Flagyl) 500 MG tablet Indications: BV (bacterial vaginosis) Take 1 tablet (500 mg) by mouth in the morning and 1 tablet (500 mg) before bedtime. Do all this for 7 days. Do not drink alcohol while taking this medication. 14 tablet 12/25/2024 01/01/2025 Activepolysaccharide iron complex 391 mg oral capsule (20 sources)Start: 10-15-2024 End: 90-88-4703hscl 1 capsule by mouth once dailyiron polysaccharides (ProFe) 391.3 (180 Fe) MG capsule Indications: Second trimester Take1 capsule (391.3 mg) by mouth Daily 30 capsule 6 10/15/2024 11/14/2024 Active End: 23-21-9172orcn 1 capsule by mouth once dailyiron polysaccharides (Nu- Iron,Niferex) 150 MG capsule Take 1 capsule by mouth Daily 02/16/2025 Disco ntinuedPrenatal Vit-Fe Fumarate-FA ( VITAMIN PO) (5 sources)take 1 tablet by mouth once dailyPrenatal Vit-Fe Fumarate-FA ( VITAMIN PO) Take 1 tablet by mouth daily 0 Active1 ml promethazine hydrochloride 25 mg/ml injection (1 source)PhenothiazineStart: 04-14-2021 End: 12-90-0510snrlywablhjv (PHENERGAN) injection 12.5 mgStart: 04-14-2021 End: 76-13-5502noylgltpuwtt (PHENERGAN) injection 12.5 mg50 ml sodium chloride 9 mg/ml injection (1 source)Start: 04-14-2021 End: .9 % sodium chloride bolusStart: 04-14-2021 End: .9 % sodium chloride bolusterconazole 4 mg/ml vaginal cream (2 sources)Azole AntifungalStart: 12-25-2024 End: 87-88-5308zbgkdjzstzu (Terazol 7) 0.4 % vaginal cream Indications: Yeast infection Insert 1 applicator into the vagina at bedtime for 7 days 45 g 12/25/2024 01/01/2025 Active Completed/Discontinued Medications MedicationDrug Class(es)DatesSig (Normalized)Sig (Original)ceFAZolin 2000 mg injection (1 source)Cephalosporin AntibacterialStart: 05-18-2021 End: 52-16-9903tkYQIiflo (ANCEF) 2000 mg in dextrose 3 % 50 mL IVPB (duplex) docusate sodium 100 mg oral capsule (20 sources)Start: 12-01-2024 End: 95-21-0425ujzw 1 capsule by mouth twice daily as needed for constipation docusate sodium (Colace) 100 MG capsule Indications: Constipation during in third trimester ([facility]) Take 1 capsule (100 mg) by mouth 2 (two) times a day as needed for constipation for up to 60 doses 60 capsule 5 12/01/2024 09/22/2025 DiscontinuedEthinyl Estradiol / Ferrous fumarate / Norethindrone (7 sources)EstrogenStart: 02-16-2025 End: 68-20-8504zmuo 1 tablet by mouth once daily, then take 1 tablet by mouth once dailynorethindrone-ethinyl estradiol (12/15) 1-20 MG-MCG tablet Indications: 6 weeks follow-up ([facility]) Take 1 tablet by mouth Daily Take 1 tablet by mouth daily 84 tablet 3 510/ DiscontinuedStart: 90-69-0407yhmp 1 tablet by mouth once daily, then take 1 tablet by mouth once dailynorethindrone-ethinyl estradiol (12/15) 1-20 MG-MCG tablet Indications: 6 weeks follow-up ([facility]) Take 1 tablet by mouth Daily Take 1 tablet by mouth daily 84 tablet 3 02/16/2025tiveStart: 02-16-2025 End: 35-38-2090ynmo 1 tablet by mouth once daily, then take 1 tablet by mouth once dailynorethindrone-ethinyl estradiol (12/15) 1-20 MG-MCG tablet Indications: 6 weeks follow-up Take 1 tablet by mouth Daily Take 1 tablet by mouth daily 84 tablet 3 02/16/2025 05/11/2025 Active2 ml ondansetron 2 mg/ml injection (1 source)Serotonin-3 Receptor AntagonistStart: 05-18-2021 End: 99-49-5999pcimpobvgru (ZOFRAN) injection 4 mg Problems Active Problems Problem ClassificationProblemDateDocumented DateEpisodic/ChronicAbdominal pain (7 sources)Abdominal pain; Translations: [Unspecified abdominal pain]Onset: 90-91-9808QztnmxleLggig bronchitis (2 sources)Acute bronchitis; Translations: [Acute bronchitis, unspecified] 45-02-9231TaeffvtqBxxjuwe disorders (1 source)Anxiety disorder, unspecified; Translations: [ANXIETY DISORDER UNSPECIFIED]Onset: 91-22-7811RxkyfmtQknmssfpfn and other anemia (1 source)Iron deficiency anemia due to blood loss; Translations: [Iron deficiency anemia secondary to blood loss (chronic)]86-76-7308FjegkitWjheguqwxz disorders (1 source)Gastro-esophageal reflux disease without esophagitis; Translations: [GERD WITHOUT ESOPHAGITIS]Onset: 21-35-7274PklfousDebizxkbfqntd and screening for infectious disease (3 sources)Encounter for screening for human papillomavirus (HPV); Translations: [Exposure to sexually transmissible disorder]Onset: 108452-95-3155Wcxrktlo Menstrual disorders (20 sources)Irregular menstruation, unspecified; Translations: [Missed period] Onset: 27-21-6552TrpviiuLyvcl complications of (2 sources)Anemia of ; Translations: [Anemia complicating , third trimester]96-93-3695YldjseyCvnxd complications of (1 source)Nausea and vomiting; Translations: [Vomiting of , unspecified]EpisodicOther complications of (3 sources)Other specified related conditions, first trimester; Translations: [OTH SPEC PREG RELATEDCOND TRI]Onset: 91-02-6445OtajofnnQhgfj complications of (1 source) related conditions, unspecified, first trimester; Translations: [ RELATED COND UNS TRI]Onset: 51-05-7348FjhezpuiEvqtd complications of (2 sources)Excessive growth affecting management of mother; Translations: [Maternal care for excessive growth, third trimester, not applicable or unspecified]65-38-6858OqhzfcdkTxvft complications of (2 sources)Diseases of the digestive system complicating , third trimester; Translations: [Other current conditions classifiable elsewhere of mother, antepartum condition or complication]04-02-6889EoatnhjbPouwk connective tissue disease (1 source)Swelling of lower limb; Translations: [Other specified soft tissue disorders]EpisodicOther endocrine disorders (2 sources)Polycystic ovary syndrome; Translations: [Polycystic ovarian syndrome]53-95-9299UncggwsUblde inflammatory condition of skin (2 sources)Pruritus, unspecified; Translations: [Unspecified pruritic disorder] 08-40-0515MujjqhlgJyqjo and delivery including normal (20 sources)Intrauterine ; Translations: [Encounter for supervision of other normal , first trimester]Onset: 36-09-5040LroretiqTnmes screening for suspected conditions (not mental disorders or infectious disease) (11 sources)Encounter for test, result negative; Translations: [Encounter for screening for malignantneoplasm of cervix]Onset: 07-04-2022 EpisodicOther upper respiratory infections (2 sources)Acute maxillary sinusitis; Translations: [Acute maxillary sinusitis, unspecified]01-55-4406ZldltiarRhdgiurupqvepn and other problems of amniotic cavity (2 sources)Premature rupture of membranes with problem; Translations: [Premature rupture of membranes, unspecified as to length of time between rupture and onset of labor, unspecified weeks of gestation]23-79-8207Iyidlhzn Residual codes; unclassified (1 source)8 weeks gestation of ; Translations: [8 WEEKS GESTATION OF ]Onset: 35-04-1530LfcljskjLrpoogcu codes; unclassified (2 sources)Gestation period, 25 weeks; Translations: [25 weeks gestation of ]42-62-3842UhfzwmctEgvzzmeh codes; unclassified (2 sources)Gestation period, 32 weeks; Translations: [32 weeks gestation of ]02-03-4491HcwwddesXzltvzvq codes; unclassified (4 sources)Gestation period, 35 weeks; Translations: [35 weeks gestation of ]52-77-0830NvzfkwpyBqzytetx codes; unclassified (2 sources)Gestation period, 36 weeks; Translations: [36 weeks gestation of ]12-58-9577HuoqwiddHyyuzxmp codes; unclassified (2 sources)Gestation period, 37 weeks; Translations: [37 weeks gestation of ]70-81-0061JqlzodeuXgekkianvppy (20 sources)OB RemindersOnset: 396778-33-1862 Past or Other Problems Problem ClassificationProblemDateDocumented DateEpisodic/ChronicCardiac dysrhythmias (20 sources)Intermittent palpitations; Translations: [Palpitations]Onset: 465947-19-1280SzmhsywqUcppzamudi during ; abruptio placenta; placenta previa (3 sources)Hemorrhage in early , unspecified; Translations: [HEMORRHAGE EARLY UNS]Onset: 81-33-0081WbqtzudeYgstobzbixlgl mental health disorders (20 sources)Anxiety about body function or health; Translations: [Other symptoms and signs involving emotional state]Onset: 752893-27-3175Bxgxekbx Nonspecific chest pain (4 sources)Chest pain, unspecified; Translations: [CHEST PAIN UNSPECIFIED]Onset: 58-09-6684WkhfnggsZdkus aftercare (13 sources)Surgical follow-up; Translations: [Encounter for follow-up examination after completed treatment for conditions other than malignant neoplasm]Onset: 849682-13-5920AcfgywgnVyciq complications of (20 sources)Reduced movement; Translations: [Decreased movements, unspecified trimester, not applicable or unspecified]Onset: 89-51-8872Mqsidaui Other complications of (1 source)Other specified related conditions, unspecified trimester; Translations: [OTH SPEC PREG RELATED COND UNS TRI]Onset: 99-48-5911MrmvmiwiOzxbi complications of (1 source)Unspecified infection of urinary tract in , unspecified trimester; Translations: [UNS INF URINARY TRACT PREG UNS TRI]Onset: 10-11-2022 EpisodicOther complications of (1 source)Other mental disorders complicating , unspecified trimester; Translations: [OTH MENTAL D/OCOMP PREG UNS TRI]Onset: 50-18-5884QyunxfuuUphbz complications of (1 source)Diseases of the digestive system complicating , unspecified trimester; Translations: [DZ DIGESTIVE SYS COMP PREG UNS TRI]Onset: 10-11-2022 EpisodicOther gastrointestinal disorders (1 source)Constipation, unspecified; Translations: [CONSTIPATION UNSPECIFIED] Onset: 79-17-5023DarfmznlUxaso gastrointestinal disorders (20 sources)Slow transit constipation; Translations: [Slow transit constipation] Onset: 861767-78-4772UbuibzgnSlqet injuries and conditions due to external causes (20 sources)Injury of abdomen; Translations: [Unspecified injury of abdomen, initial encounter]Onset: 440747-84-8057InxutvhyUbnkvbw cyst (5 sources)Unspecified ovarian cyst, unspecified side; Translations: [Unspecified ovarian cyst, left side]Onset: 21-94-9366TabrheysDpxowurk codes; unclassified (1 source)Weeks of gestation of not specified; Translations: [WEEKS GESTATION NOT SPEC]Onset: 96-63-7610NwmaqvxpMcxzlliy codes; unclassified (20 sources)Gestation period, 29 weeks; Translations: [29 weeks gestation of ]Onset: 331443-79-9953XujknfroZdlwlisphdb (1 source)Complete or unspecified spontaneous without complication; Translations: [COMPLETE/UNS SPONT AB W/O COMP]Onset: 89-90-9437BrixjvupVktkixv tract infections (2 sources)Urinary tract infectious disease; Translations: [Urinary tract infection, site not specified]Onset: 52-74-5734Xjecneys Results Test NameValueInterpretationReference RangeFacilityHCG ( test) Ql (U)on 05-57-2124Hzhhphrgdmqvqy and review of laboratory resultsNormalNOAR Healthcare Preg Test, UrNegativeNegativeNOSaint Francis Medical CenterNOAR HealthcareALL CBC WITH AUTO DIFFon 96-02-3476SAMQJFNPS ABSOLUTE GTRC0GEAH HealthcareBasophils/100 WBC (Bld) 0.1 %Low0.2 - 2.0 %[facility] HealthcareEosinophils/100 WBC (Bld)0.2 %Low0.9 - 7.0 % N[facility] HealthcareErythrocyte distribution width (RBC) [Ratio]23.8 %High11.0 - 15.0 %[facility] HealthcareHematocrit (Bld) [Volume fraction]31.8 %Low36.0 - 48.0 %[facility] HealthcareHemoglobin (Bld) [Mass/Vol]9.8 g/dLLow12.0 - 16.0 g/dLNOSaint Francis Medical Center IMMATURE GRANULOCYTES ABS AUTO0.14HighNOMS HealthcareImmature granulocytes/100 WBC (Bld)1 %High0.0 - 0.5 %NOM HealthcareInterpretation and review of laboratory resultsAbnormalNOSaint Francis Medical CenterLYMPHOCYTES ABSOLUTE AUTO1.6NOMS HealthcareLymphocytes/100 WBC (Bld)10.8 %Low20.5 - 60.0 %[facility]OMS [facility] HospitalMCH (RBC) [Entitic mass]26.6 pgLow26.7 - 34.0 pgNOSaint Francis Medical CenterMCHC (RBC) [Mass/Vol] 30.8 g/dL29.9 - 35.2 g/dLNOSaint Francis Medical CenterMCV (RBC) [Entitic vol]86.4 fL81.0 - 99.0 fLNOSaint Francis Medical CenterMONOCYTES ABSOLUTE AUTO1.1HighNOAR HealthcareMonocytes/100 WBC (Bld)7.8 %1.7 - 12.0 %[facility] CenterNEUTROPHILS ABSOLUTE AUTO11.5HighSt. [facility] VA Medical CenterNeutrophils/100 WBC (Bld)80.1 %High43.0 - 75.0 %[facility] Platelet mean volume (Bld) [Entitic vol]10.4 fL9.5 - 13.5 fLSt. [facility] VA Medical CenterTBH EO #0NOTwo [facility] [id number] [facility]iatric [facility] RBC3.68LowFreeman [facility] WBC14.3HighSt. [facility] VA Medical CenterCLINISYNCNChristian HospitalALL CBC WITH AUTO DIFFon 12-09-9456CZDDRYDDM ABSOLUTE BPBQ5FJWLSt. [facility] VA Medical CenterBasophils/100 WBC (Bld)0.2 %0.2 - 2.0 %[facility] CenterEosinophils/100 WBC (Bld)0.4 %Low0.9 - 7.0 %[facility] CenterErythrocyte distribution width (RBC) [Ratio]23.8 %High11.0 - 15.0 % [facility] CenterHematocrit (Bld) [Volume fraction]37.7 %36.0 - 48.0 %[facility] CenterHemoglobin (Bld) [Mass/Vol]12.1 g/dL12.0 - 16.0 g/dLSt. [facility] Center IMMATURE GRANULOCYTES ABS AUTO0.09HighSt. Louis VA Medical CenterImmature granulocytes/100 WBC (Bld)0.9 %High0.0 - 0.5 %[facility] CenterInterpretation and review of laboratory resultsAbnormalSt. [facility] VA Medical CenterLYMPHOCYTES ABSOLUTE AUTO1.2NOMS [facility] HospitalLymphocytes/100 WBC (Bld)12 %Low20.5 - 60.0 %[facility] HealthH (RBC) [Entitic mass]27.4 pg26.7 - 34.0 pgCarondelet HealthHC (RBC) [Mass/Vol]32.1 g/dL 29.9 - 35.2 g/dLCarondelet HealthV (RBC) [Entitic vol]85.3 fL81.0 - 99.0 fLSt. [facility] VA Medical CenterMONOCYTES ABSOLUTE AUTO0.6NOSaint Francis Medical CenterMonocytes/100 WBC (Bld)6.4 % 1.7 - 12.0 %[facility] CenterNEUTROPHILS ABSOLUTE AUTO7.6HighNOMS Healthcare Neutrophils/100 WBC (Bld)80.1 %High43.0 - 75.0 %[facility]S HealthcarePlatelet mean volume (Bld) [Entitic vol]10.7 fL9.5 - 13.5 fLNOMS HealthcareTBH EO #0NOMS HealthcareTBH VEO344VVHS HealthcareTBH RBC4.42NOMS HealthcareComment on above:2+ ANISOCYTOSISTBH WBC9.6NOMS HealthcareCLINISYNCNOMS HealthcareUS OB LIMITED 1+ FETUSESon 18-50-8044QK OB LIMITED 1+ FETUSESTITLE OF EXAM: OB Ultrasound: REASON FOR EXAM: Prom and leaking fluid. COMPARISON: 12/01/2024 TECHNIQUE: Grayscale and M-mode Doppler imaging is performed. FINDINGS: Reported gestational age 37 weeks, 5 days Measurements: heart rate: 145 bpm BABAK: 22.3 cm (7.4-24.0) BELL: 01/22/2025 Amniotic fluid index: 22.3 cm Between 5th and 95 percentile. Largest Fluid Pocket: 7.8 cm heart rate: 145 bpm Somatic motion: Yes Amniotic fluid contains numerous echoes. IMPRESSION: 1. Live intrauterine gestation with cardiac and somatic motion. 2. Amniotic fluid index 22.3 cm, upper limit of normal. 3. Debris within the amniotic fluid. Question meconium, blood products, or chorioamnionitis. Dictated and transcribed 01/06/25/dpd This report has been electronically signed and approved by the interpreting radiologist.NormalNot AvailableComment on above:Order Comment: US OB AMNIOTIC FLUID VOLUME Estimated Date of Delivery: 01/22/25 Gestational Age as of 01/05/2025: 07c8uZyugypltkg macro (dipstick) panel (U)on 81-02-2808Dzqxwxyiy, UANegativeNegative - 4(70) +++ mg/dLNOAR HealthcareBlood, UANegativeNegative - 50 Cleve/mcLNOMS HealthcareClarity, UAClearNOMS Healthcare Color, UAYellowNOMS HealthcareGlucose, UANegativeNegative - 2000(110) ++++ mg/dL N[facility] HealthcareInterpretation and review of laboratory resultsAbnormalNOAR HealthcareKetones, UANegativeNegative - 160(16) ++++ mg/dLNOAR Healthcare Leukocytes, UATraceNegative - 500+++ Arun/mcLNOMS HealthcareNitrite, UANegative Negative - PositiveNOMS HealthcarepH, UA65 - 9NOMS HealthcareProtein, UATrace Negative - 2000(20) ++++ mg/dLNOMS HealthcareSpec Grav, UA1.0251 - 1.03NOMS HealthcareUrobilinogen, UA0.20.2 - 12 mg/dLNOMS HealthcareNOMS Healthcare Urinalysis macro (dipstick) panel (U)on 14-73-4693Oxkjuoizw, UANegativeNegative - 4(70) +++ mg/dLNOMS HealthcareBlood, UANegativeNegative - 50 Cleve/mcLNOMS HealthcareClarity, UAClearNOMS HealthcareColor, UAYellowNOMS HealthcareGlucose, UANegativeNegative - 2000(110) ++++ mg/dLNOMS HealthcareInterpretation and review of laboratory resultsAbnormalNOMS HealthcareKetones, UANegativeNegative - 160(16) ++++ mg/dLNOMS HealthcareLeukocytes, UAPositiveNegative - 500+++ Arun/mcL NOMS HealthcareNitrite, UANegativeNegative - PositiveNOMS HealthcarepH, UA75 - 9 NOMS HealthcareProtein, UANegativeNegative - 2000(20) ++++ mg/dLNOMS Healthcare Spec Grav, UA1.021 - 1.03NOMS HealthcareUrobilinogen, UA0.20.2 - 12 mg/dLNOMS HealthcareNOMS HealthcareALL MISCELLANEOUS TESTon 09-61-5201HCOQQRCUTTQEV TEST COMMENT.NOMS HealthcareComment on above:Test Ordered: [id number] Strep Gp B Culture+Rflx Strep Gp B Culture+Rflx Negative CB Reference Range: Negative Centers for Disease Control and Prevention (CDC) and [place] [employer]stetric[employer] Gynecologists (ACOG) guidelines for prevention of group B streptococcal (GBS) disease specify co-collection of a vaginal and rectal swab specimen to maximize sensitivity of GBS detection. Per the CDC and ACOG, swabbing both the lower vagina and rectum substantially increases the yield of detection compared with sampling the vagina alone. Penicillin G, ampicillin, or cefazolin are indicated for intrapartum prophylaxis of GBS colonization. Reflex susceptibility testing should be performed prior to use of clindamycin only on GBS isolates from penicillin- allergic women who are considered a high risk for anaphylaxis. Treatment with vancomycin without additional testing is warranted if resistance to clindamycin is noted. Performed at: [facility] [id number] Switchboard Operator: Angel Vinson PhD, Phone: [phone] GROUP B STREP [id number] Group B Streptococcus Colonization Detection Culture With Re CLINISYNCSt. Louis VA Medical CenterUrinalysis macro (dipstick) panel (U)on 12-24-2024 Bilirubin, UANegativeNegative - 4(70) +++ mg/dLNOAR HealthcareBlood, UANegative Negative - 50 Cleve/mcLNOAR HealthcareClarity, UAClearNOMS HealthcareColor, UA YellowNOAR HealthcareGlucose, UANegativeNegative - 2000(110) ++++ mg/dLTOOELE VALLEY HOSPITAL HealthcareInterpretation and review of laboratory resultsAbnormalSt. [facility] Center Ketones, UANegativeNegative - 160(16) ++++ mg/dLTOOELE VALLEY HOSPITAL HealthcareLeukocytes, UA NegativeNegative - 500+++ Arun/mcLTOOELE VALLEY HOSPITAL HealthcareNitrite, UANegativeNegative - PositiveNOAR HealthcarepH, UA75 - 9NOAR HealthcareProtein, UATraceNegative - 2000(20) ++++ mg/dLTOOELE VALLEY HOSPITAL HealthcareSpec Grav, UA1.0251 - 1.03NOSaint Francis Medical Center Urobilinogen, UA0.20.2 - 12 mg/dLNOAurora Sinai Medical Center– MilwaukeeHMHP LIVER PANEL on 32-39-1314Fapqdae [Mass/Vol]2.5 g/dLLow3.4 - 5.0 g/dLTOOELE VALLEY HOSPITAL HealthcareALBUMIN GLOBULIN RATIO0.6NOAR HealthcareALP [Catalytic activity/Vol]81 U/L46 - 116 U/L NOMS HealthcareALT [Catalytic activity/Vol]11 U/LLow14 - 59 U/LNOMS Healthcare AST [Catalytic activity/Vol]9 U/LLow15 - 37 U/LNOMS HealthcareBilirubin [Mass/Vol]0.2 mg/dL0.2 - 1.0 mg/dLTOOELE VALLEY HOSPITAL HealthcareBilirubin.indirect [Mass/Vol] mg/dL0.0 - 0.2 mg/dLTOOELE VALLEY HOSPITAL HealthcareGlobulin (S) [Mass/Vol]4.2 g/dLNOAR HealthcareInterpretation and review of laboratory resultsAbCorewell Health [facility] Protein [Mass/Vol]6.7 g/dL6.4 - 8.2 g/dLSt. Louis VA Medical CenterCLINISYNCNChristian Hospital ALL CBC WITH AUTO DIFFon 66-33-6059MTZHYORHV ABSOLUTE NJEM0VIVBSaint Francis Medical Center Basophils/100 WBC (Bld)0.2 %0.2 - 2.0 %[facility] CenterEosinophils/100 WBC (Bld) 0.5 %Low0.9 - 7.0 %[facility] CenterErythrocyte distribution width (RBC) [Ratio] 22.8 %High11.0 - 15.0 %[facility] CenterHematocrit (Bld) [Volume fraction]34.8 % Low36.0 - 48.0 %[facility] CenterHemoglobin (Bld) [Mass/Vol]10.5 g/dLLow12.0 - 16.0 g/dLSt. Louis VA Medical CenterIMMATURE GRANULOCYTES ABS AUTO0.11HighSt. [facility] Center Immature granulocytes/100 WBC (Bld)1.1 %High0.0 - 0.5 %[facility] Interpretation and review of laboratory resultsAbCorewell Health Ludington Hospital LYMPHOCYTES ABSOLUTE AUTO1.5NOSaint Francis Medical CenterLymphocytes/100 WBC (Bld)14.6 %Low 20.5 - 60.0 %[facility] (RBC) [Entitic mass]25.1 pgLow26.7 - 34.0 pgCarondelet HealthHC (RBC) [Mass/Vol]30.2 g/dL29.9 - 35.2 g/dLCarondelet HealthV (RBC) [Entitic vol]83.1 fL81.0 - 99.0 fLSt. Louis VA Medical CenterMONOCYTES ABSOLUTE AUTO0.6NOSaint Francis Medical CenterMonocytes/100 WBC (Bld)5.6 %1.7 - 12.0 %[facility] CenterNEUTROPHILS ABSOLUTE AUTO7.9HighSt. Louis VA Medical CenterNeutrophils/100 WBC (Bld)78 %High43.0 - 75.0 %[facility] CenterPlatelet mean volume (Bld) [Entitic vol]10.5 fL9.5 - 13.5 fLSt. Louis VA Medical CenterTB EO #0.1NOMS [facility] [id number] [facility] RBC4.19LowNOMS HealthcareComment on above:2+ ANISOCYTOSISTBH WBC10.1NOMS HealthcareCLINISYNC NOMS HealthcareUS OB FOLLOW UP TRANSABDOMINAL APPROACHon [id number] OB FOLLOW UP TRANSABDOMINAL APPROACHTITLE OF EXAM: OB Ultrasound: REASON FOR EXAM: LGA. COMPARISON: None TECHNIQUE: Grayscale and M-mode Doppler imaging is performed. FINDINGS: heart rate: 165 bpm BABAK: 16.1 cm (8.4-24.4) BPD: 8.2 cm HC: 30.1 cm AC: 29.1 cm FL: 6.2 cm GA for sonogram: 32.9 wk (29.9-35.9) BELL: 01/22/2025 Weight Estimate: Weight: 2063 gm / 4 lbs, 8 oz (3974-0520 gm) [place] Normal: 2072 gm (9072-5350 gm) [place] Wt%: 49% for 32.6 wks [...] report is generated using voice recognition reporting (Sitefly). On occasion Aware [employer] erroneously drops words from the report or replaces the spoken word with similar sounding words. Please call with any questions/concerns regarding this report.* Dictated and transcribed 12/01/24/dpd This report has been electronically signed and approved by the interpreting radiologist.NormalNot AvailableComment on above:Order Comment: US OB SCAN FOR GROWTH Estimated Date of Delivery: 01/22/25 Gestational Age as of 11/12/2024: 33h8tAqtyjabrgk macro (dipstick) panel (U)on 09-76-9018Kudwltvlr, UANegativeNegative - 4(70) +++ mg/dLNOMS HealthcareBlood, UANegativeNegative - 50 Cleve/mcLNOMS HealthcareClarity, UAClearNOMS Healthcare Color, UAYellowNOMS HealthcareGlucose, UANegativeNegative - 2000(110) ++++ mg/dL NOMS HealthcareInterpretation and review of laboratory resultsAbnormalNOAR HealthcareKetones, UANegativeNegative - 160(16) ++++ mg/dLNOAR Healthcare Leukocytes, UAPositiveNegative - 500+++ Arun/mcLNOAR HealthcareComment on above: smallNitrite, UANegativeNegative - PositiveNOMS HealthcarepH, UA75 - 9NOMS HealthcareProtein, UATraceNegative - 2000(20) ++++ mg/dLNOAR HealthcareSpec Grav, UA1.021 - 1.03NOAR HealthcareUrobilinogen, UA0.20.2 - 12 mg/dLNOAR HealthcareNOAR HealthcareCCF FERRITINon 07-48-0552Zeqofacr [Mass/Vol]4 ng/mLLow 8.0 - 252.0 ng/mLNOMS HealthcareInterpretation and review of laboratory results AbnormalNOAR HealthcareCLINISYNCNARBUCKLE MEM[facility] HealthcareALL CBC WITH AUTO DIFFon [id number] ABSOLUTE EONE8BVEL HealthcareBasophils/100 WBC (Bld)0.2 %0.2 - 2.0 %NOMS HealthcareEosinophils/100 WBC (Bld)0.6 %Low0.9 - 7.0 %NOM HealthcareErythrocyte distribution width (RBC) [Ratio]15.1 %High11.0 - 15.0 % NOM HealthcareHematocrit (Bld) [Volume fraction]30.1 %Low36.0 - 48.0 %NOM HealthcareHemoglobin (Bld) [Mass/Vol]9.2 g/dLLow12.0 - 16.0 g/dLSt. [facility] IMMATURE GRANULOCYTES ABS AUTO0.08HighNOSaint Francis Medical CenterImmature granulocytes/100 WBC (Bld)0.6 %High0.0 - 0.5 %NOM HealthcareInterpretation and review of laboratory resultsAbnormalNOSaint Francis Medical CenterLYMPHOCYTES ABSOLUTE AUTO2.1NOMS HealthcareLymphocytes/100 WBC (Bld)17.2 %Low20.5 - 60.0 %[facility] CenterMCH (RBC) [Entitic mass]24.8 pgLow26.7 - 34.0 pgNOSt. Louis Children's HospitalHC (RBC) [Mass/Vol] 30.6 g/dL29.9 - 35.2 g/dLCarondelet HealthV (RBC) [Entitic vol]81.1 fL81.0 - 99.0 fLSt. Louis VA Medical CenterMONOCYTES ABSOLUTE AUTO0.8NOMS HealthcareMonocytes/100 WBC (Bld)6.2 %1.7 - 12.0 %NOMWestern Missouri Mental Health CenterNEUTROPHILS ABSOLUTE AUTO9.3HighNOSaint Francis Medical CenterNeutrophils/100 WBC (Bld)75.2 %High43.0 - 75.0 %[facility] Platelet mean volume (Bld) [Entitic vol]10.5 fL9.5 - 13.5 fLSt. Louis VA Medical CenterTBH EO #0.1NOMS [facility] [id number] [facility]iatric [facility] RBC3.71LowNOTwo Rivers [facility] Hospital WBC12.4HighSt. Louis VA Medical CenterCLINISYNCNChristian HospitalALL CBC WITH AUTO DIFFon 87-78-5603LHQLJBBWZ ABSOLUTE SQMI5DJPDSaint Francis Medical CenterBasophils/100 WBC (Bld)0.2 %0.2 - 2.0 %[facility] CenterEosinophils/100 WBC (Bld)0.7 %Low0.9 - 7.0 %[facility] CenterErythrocyte distribution width (RBC) [Ratio]14.5 %11.0 - 15.0 %[facility] CenterHematocrit (Bld) [Volume fraction]31.2 %Low36.0 - 48.0 %[facility] CenterHemoglobin (Bld) [Mass/Vol]9.6 g/dLLow12.0 - 16.0 g/dLSt. [facility] IMMATURE GRANULOCYTES ABS AUTO0.1HighSt. Louis VA Medical CenterImmature granulocytes/100 WBC (Bld)0.8 %High0.0 - 0.5 %[facility] CenterInterpretation and review of laboratory resultsAbnormalSt. [facility] Medical CenterLYMPHOCYTES ABSOLUTE AUTO1.9NOSaint Francis Medical CenterLymphocytes/100 WBC (Bld)14.8 %Low20.5 - 60.0 %[facility]H (RBC) [Entitic mass]25.7 pgLow26.7 - 34.0 pgCarondelet HealthHC (RBC) [Mass/Vol] 30.8 g/dL29.9 - 35.2 g/dLCarondelet HealthV (RBC) [Entitic vol]83.6 fL81.0 - 99.0 fLNOMS HealthcareMONOCYTES ABSOLUTE AUTO0.7NOMS HealthcareMonocytes/100 WBC (Bld)5.4 %1.7 - 12.0 %NOMS HealthcareNEUTROPHILS ABSOLUTE DGBA70MmfaMOKJ HealthcareNeutrophils/100 WBC (Bld)78.1 %High43.0 - 75.0 %[facility]OMS Healthcare Platelet mean volume (Bld) [Entitic vol]10.4 fL9.5 - 13.5 fLNOMS HealthcareTBH EO #0.1NOMS HealthcareTBH [id number] HealthcareTBH RBC3.73LowNOMS HealthcareTBH WBC12.8HighNOAR HealthcareCLINISYNCNARBUCKLE MEMORIAL [facility] HealthcareUrinalysis macro (dipstick) panel (U)on 02-51-1532Sqntggoal, UANegativeNegative - 4(70) +++ mg/dLNOMS HealthcareBlood, UANegativeNegative - 50 Cleve/mcLNOAR HealthcareClarity, UAClear NOMS HealthcareColor, UAYellowNOAR HealthcareGlucose, UANegativeNegative - 2000(110) ++++ mg/dLNOAR HealthcareInterpretation and review of laboratory resultsAbnormalNOAR HealthcareKetones, UANegativeNegative - 160(16) ++++ mg/dL NOM HealthcareLeukocytes, UAPositiveNegative - 500+++ Arun/mcLNOMS Healthcare Comment on above:smallNitrite, UANegativeNegative - PositiveNOMS HealthcarepH, UA7.55 - 9NOMS HealthcareProtein, UANegativeNegative - 2000(20) ++++ mg/dLNOAR HealthcareSpec Grav, UA1.0151 - 1.03NOMS HealthcareUrobilinogen, UA0.20.2 - 12 mg/dLNOAR HealthcareNOAR HealthcareAFP, SERUM, OPEN SPINA BIFIDAon 97-75-2170DOW MOM0.93.NOM HealthcareAFP VALUE37.4 ng/mL.NOM HealthcareCOMMENT:Comment.[facility] HealthcareComment on above:Emperatriz Ward, Ph.D., [facility] Director References: Available Upon Request. Multiples Of Median Cutoffs For AFP Elevations Dia 2.5 Black 2.8 IDD 2.0 Twins 4.5 Abbreviation Definitions IDD - Insulin Dep Diabetes OSBR - Open Spina Bifida Risk For further inquiries contact [facility] at [phone]. This test was developed and its performance characteristics determined by [facility]. It has not been cleared or approved by the Food and Drug Administration. Performed at: [facility] [address] [place], [place] [id number] Switchboard Operator: Ginny Brownlee [facility], Phone: [phone] GEST. AGE ON COLLECTION DATE17.6. weeksNOAR HealthcareGESTAT. AGE BASED ON Ultrasound.[facility] HealthcareComment on above:13.6 on 07/21/2024 Recalculations are not recommended when gestational dating by LMP and ultrasound are within 10 days. INSULIN DEP DIABETESNo.[facility] HealthcareINTERPRETATIONComment.[facility] Comment on above:Interpretation: Screen Negative This result is screen negative for [...] Customer Services to discuss available options. The [place] [employer] recommends amniocentesis be offered to women age 35 and older. MATERNAL AGE AT EDD31.0. yrNOAR HealthcareMULTIPLE GESTATIONNo.[facility] Healthcare OSBR RISK 1 [id number].[facility] HealthcareRACECaucasian.[facility] HealthcareRESULTSReport. [facility] CenterTEST RESULTS:Negative.[facility] CenterSflzjknrbwNAVCNK855. lbsNOAR HealthcarePREGNANCY N N ULTRASOUND [id number] 4 13 N 1 Y 153 N N N N N White/ CLINISYNCNOAR HealthcareLaboratory - Microbiology and Antimicrobial susceptibilityon 22-29-6957TVZY-CoV-2 (COVID-19) RNA ARI+probe Ql (Unsp spec) NegativeNOAR HealthcareNo Panel Informationon 02-43-7768OMO ANegativeNOMS HealthcareFLU BNegativeNOAR HealthcareInterpretation and review of laboratory resultsNormalNOMercy hospital springfield HealthcareUrinalysis macro (dipstick) panel (U) on 49-42-1286Qscqxxfjm, UANegativeNegative - 4(70) +++ mg/dLNOAR Healthcare Blood, UANegativeNegative - 50 Cleve/mcLNOAR HealthcareClarity, UAClearNOMS HealthcareColor, UAYellowNOMS HealthcareGlucose, UANegativeNegative - 2000(110) ++++ mg/dLNOAR HealthcareInterpretation and review of laboratory resultsAbnormal NOMS HealthcareKetones, UAPositiveNegative - 160(16) ++++ mg/dLNOAR Healthcare Comment on above:traceLeukocytes, UATraceNegative - 500+++ Arun/mcLNOAR HealthcareNitrite, UANegativeNegative - PositiveNOMS HealthcarepH, UA7.55 - 9 NOMS HealthcareProtein, UANegativeNegative - 2000(20) ++++ mg/dLTOOELE VALLEY HOSPITAL Healthcare Spec Grav, UA1.0251 - 1.03NOAR HealthcareUrobilinogen, UA0.20.2 - 12 mg/dLNOAR HealthcareNOAR HealthcareHEP B SURFACE ANTIGEN SCREENon 81-66-3926DJyAr Screen NegativeNormalNegativeThe [facility] GlenbeighComment on above:Performed By: #### HBSANS #### [facility] [address] [place] [address] Dr. Josh Dasilva C VIRUS AB W/ REFLEX QUANTon 29-73-4647NZQ AB Non-ReactiveNormalNon ReactiveThe [facility] GlenbeighComment on above:Performed By: #### HCVPCRR #### [facility] [address] [place] [address] Dr. Josh Tay 1 AND 2 WITH REFLEXon 78-11-7180RSA Screen 4th Generation wRfxNon-ReactiveNormalNon ReactiveThe [facility] GlenbeighComment on above:Result Comment: HIV Negative HIV-1/HIV-2 antibodies and HIV-1 p24 antigen were NOT detected. There is no laboratory evidence of HIV infection.Performed By: #### BOX #### [facility] [address] [place] [address] Dr. Josh Ramos QUANTon 03-64-0152Wqxag Plasma Reagin, QuantNon-Reactive NormalNonRea<1:1The UC Healthment on above:Result Comment: Please Note: This test does not meet current guidelines for screening and diagnosis of syphilis. This test is intended for following treatment response in patients being treated for syphilis infection. To screen for syphilis infection, a reflex cascade that includes both RPR and a treponema-specific assay should be utilized, such as Treponema pallidum (Syphilis) Screening [place] (128634) or Rapid Plasma Reagin (RPR) Test With Reflex to Quantitative RPR and Confirmatory Treponema pallidum Antibodies (315282).Performed By: #### BOX #### [facility] [address] [place] [address] Dr. Josh Roberts AB IGGon 08-37-4779Eudqadz Antibodies, IgG1.84 index NormalImmune >0.99The [facility] GlenbeighComment on above:Result Comment: Non- immune <0.90 Equivocal 0.90 - 0.99 Immune >0.99Performed By: #### HCGSUB #### [facility] [address] [place] [address] Dr. Josh Craft TEST SENT OUTon 39-21-2021RJUB TO REF LAB04/17/2023NormElyria Memorial HospitalComment on above:Performed By: #### BOX #### [facility] [address] [place] [address] Dr. Josh Swain AUTO DIFFon 91-24-6791FLDC #0.0 103/ulNormal0.0-0.1[facility] CenterComment on above:Performed By: #### BOX #### [facility] [address] [place] [address] Dr. Josh JacintoBasophils/100 WBC (Bld)0.2 %Normal0.2-2.0[facility] Comment on above:Performed By: #### BOX #### [facility] [address] [place] [address] Dr. Josh Merchant #0.1 103/ulNormal0.0-0.7The [facility] System GlenbeighComment on above: Performed By: #### BOX #### [facility] [address] [place] [address] Dr. Josh Barrosoosinophils/100 WBC (Bld)0.6 %Critically low0.9-7.0The UC Healthment on above:Performed By: #### BOX #### [facility] [address] [place] [address] Dr. Josh Barrosorythrocyte distribution width (RBC) [Ratio]13.4 %Rgtwxy72.0-15.0 The [facility] System GlenbeighComment on above:Performed By: #### BOX #### [facility] [address] [place] [address] Dr. Josh JacintoHematocrit (Bld) [Volume fraction]36.9 %Tptvjp22.0-48.0The [facility] System GlenbeighComment on above:Performed By: #### BOX #### [facility] [address] [place] [address] Dr. Josh JacintoHemoglobin (Bld) [Mass/Vol]12.4 g/zGKovzsf14.0-16.0The [facility] GlenbeighComment on above:Performed By: #### BOX #### [facility] [address] [place] [address] Dr. Josh JacintoIG #0.02 10e3/ulNormal0.00-0.03The [facility] System GlenbeighCommclaren caro region on above:Performed By: #### BOX #### [facility] [address] [place] [address] Dr. Josh JacintoIG %0.2 %Normal0.0-0.5The [facility] System GlenbeighCommclaren caro region on above: Performed By: #### BOX #### [facility] [address] [place] [address] Dr. Josh WaltonMPH #2.3 103/ulNormal1.2-3.8The [facility] System GlenbeighComment on above:Performed By: #### BOX #### [facility] [address] [place] [address] Dr. Josh Waltonmphocytes/100 WBC (Bld)19.4 %Critically low20.5-60.0The [facility] System GlenbeighComment on above:Performed By: #### BOX #### [facility] [address] [place] [address] Dr. Josh SawyerUAL DIFF REQNONormalThe [facility] GlenbeighComment on above: Performed By: #### BOX #### [facility] [address] [place] [address] Dr. Josh Guadarrama (RBC) [Entitic mass]29.6 ugBaowfi90.7-34.0The [facility] System GlenbeighComment on above:Performed By: #### BOX #### [facility] [address] [place] [address] Dr. Josh Guadarrama (RBC) [Mass/Vol]33.6 g/oIQqmtiv18.9-35.2The [facility] System GlenbeighComment on above:Performed By: #### BOX #### [facility] [address] [place] [address] Dr. Josh Guadarrama (RBC) [Entitic vol]88.1 nYHjomgn13.0-99.0The [facility] GlenbeighComment on above:Performed By: #### BOX #### [facility] [address] [place] [address] Dr. Josh Ch #0.6 103/ulNormal0.3-0.8The [facility] GlenbeighComment on above:Performed By: #### BOX #### [facility] [address] [place] [address] Dr. Josh Readocytes/100 WBC (Bld)5.1 %Normal1.7-12.0[facility] Comment on above:Performed By: #### BOX #### [facility] [address] [place] [address] Dr. Josh Lewis #9.0 103/ulCritically high1.4-6.5The [facility] Comment on above:Performed By: #### BOX #### [facility] [address] [place] [address] Dr. Josh Skyutrophils/100 WBC (Bld)74.5 %Gavlce31.0-75.0The [facility] System GlenbeighComment on above:Performed By: #### BOX #### [facility] [address] [address] [address] Josh JacintoPlatelet mean volume (Bld) [Entitic vol]10.1 fLNormal9.5-13.5The [facility] on above:Performed By: #### BOX #### [facility] [address] [place] [address] Dr. Josh JacintoPLT337 103/vaRyjhjp374-333Jrz [facility] on above: Performed By: #### BOX #### [facility] [address] [place] [address] Dr. Josh JacintoRBC4.19 106/ulCritically low4.20-5.40The [facility] on above:Performed By: #### BOX #### [facility] [address] [place] [address] Dr. Josh JacintoWBC12.0 103/ulCritically high4.0-11.0The [facility] on above:Performed By: #### BOX #### [facility] [address] [place] [address] Dr. Josh JacintoCULTURE URINEon 77-28-4469GZKOEBQ URINECulture Observations: NO GROWTH.NormalThe [facility] on above:Performed By: #### HCGSUB #### [facility] [address] [place] [address] Dr. Josh JacintoGLYCOHEMOGLOBIN A1Con 28-10-9997MHA RECOMMENDATIONSEE BELOWNormal The [facility] System GlenbeighCommclaren caro region on above:Result Comment: ADA RECOMMENDED LIMIT 4.0 - 6.0 ADA THERAPEUTIC TARGET < 7.0 ACTION SUGGESTED > 7.0Performed By: #### HCVPCRR #### [facility] [address] [place] [address] Dr. Josh JacintoGlucose [Mass/Vol]91 mg/dLNormalThMercy Health – The [facility] on above:Performed By: #### HCVPCRR #### [facility] [address] [place] [address] Dr. Josh JacintoHbA1c (Bld) [Mass fraction]4.8 %Normal4.5-6.2The [facility] System GlenbeighComment on above:Performed By: #### HCVPCRR #### [facility] [address] [place] [address] Dr. Josh OseiHolianne 59-16-8579GYL5.700 uIU/mLNormal0.358-3.740The [facility] System GlenbeighComment on above:Performed By: #### HCGSUB #### [facility] [address] [place] [address] Dr. Josh Grant AND SCREENon 85-96-9394ZVPS AND SCREENNegativeNoLakeHealth Beachwood Medical CenterComment on above:Performed By: #### HCGSUB #### [facility] [address] [place] [address] Dr. Josh Hughes PREG TVon [id number] PREG TVEXAMINATION: US PREG TV HISTORY: Pain TECHNIQUE: Grayscale and color Doppler sonographic evaluation of the uterus and adnexa was performed utilizing a transvaginal approach only. COMPARISON: 04/06/2023 FINDINGS: Uterus: Size: Normal Orientation:Anteverted Intrauterine Gestational Sac: Present Yolk Sac: Present Pole: Present. [place]-rump length measures 2.1 cm, 8 weeks 5 days with BELL 11/18/2023. Cardiac Activity: Present Subchorionic hemorrhage: none Cervix: Closed Right adnexa:Normal Left adnexa:Not visualized. Free fluid:None . IMPRESSION: 1. Single, living, intrauterine with estimated age of 8 weeks 2 days by prior ultrasound. Age by today's ultrasound is concordant with age by prior exam. 2. No gross complication. Electronically authenticated by: ANANT ERIC Date: 2023-04-13 20:47NoLakeHealth Beachwood Medical CenterUS PREG TVon [id number] PREG TVEXAMINATION: US PREG TV HISTORY: Missed period COMPARISON: [...] Electronically authenticated by: ROXY TOBIAS Date: 2023-04-06 10:05[facility] AUTO DIFFon 30-79-7035TWSG #0.0 103/ulNormal0.0-0.1[facility] CenterComment on above:Performed By: #### HCVPCRR #### [facility] [address] [place] [address] Dr. Josh JacintoBasophils/100 WBC (Bld)0.4 %Normal0.2-2.0[facility] Comment on above:Performed By: #### HCVPCRR #### [facility] [address] [place] [address] Dr. Josh Merchant #0.1 103/ulNormal0.0-0.7ThBucyrus Community HospitalComment on above: Performed By: #### HCVPCRR #### [facility] [address] [place] [address] Dr. Josh Barrosoosinophils/100 WBC (Bld)1.2 %Normal0.9-7.0[facility] Comment on above:Performed By: #### HCVPCRR #### [facility] [address] [place] [address] Dr. Josh Barrosorythrocyte distribution width (RBC) [Ratio]12.7 %Tmoftm31.0-15.0 [facility] CenterComment on above:Performed By: #### HCVPCRR #### [facility] [address] [place] [address] Dr. Josh JacintoHematocrit (Bld) [Volume fraction]39.3 %Grlkra08.0-48.0The [facility] System GlenbeighComment on above:Performed By: #### HCVPCRR #### [facility] [address] [place] [address] Dr. Josh JacintoHemoglobin (Bld) [Mass/Vol]13.1 g/vMLltquy50.0-16.0The [facility] System GlenbeighComment on above:Performed By: #### HCVPCRR #### [facility] [address] [place] [address] Dr. Josh Ramirez #0.02 10e3/ulNormal0.00-0.03The [facility] System GlenbeighComment on above:Performed By: #### HCVPCRR #### [facility] [address] [place] [address] Dr. Josh Ramirez %0.3 %Normal0.0-0.5The [facility] System GlenbeighComment on above: Performed By: #### HCVPCRR #### [facility] [address] [place] [address] Dr. Josh Bender #2.1 103/ulNormal1.2-3.8The [facility] System GlenbeighComment on above:Performed By: #### HCVPCRR #### [facility] [address] [place] [address] Dr. Josh Phamhocytes/100 WBC (Bld)28.8 %Eyvaej20.5-60.0The [facility] GlenbeighComment on above:Performed By: #### HCVPCRR #### [facility] [address] [place] [address] Dr. Josh JacintoMANUAL DIFF REQNONormalThe [facility] GlenbeighComment on above: Performed By: #### HCVPCRR #### [facility] [address] [place] [address] Dr. Josh Royal (RBC) [Entitic mass]28.9 mzMvjdxm96.7-34.0The [facility] System GlenbeighComment on above:Performed By: #### HCVPCRR #### [facility] [address] [place] [address] Dr. Josh GuadarramaHC (RBC) [Mass/Vol]33.3 g/pBSnrcfc56.9-35.2The [facility] GlenbeighComment on above:Performed By: #### HCVPCRR #### [facility] [address] [place] [address] Dr. Josh GuadarramaV (RBC) [Entitic vol]86.6 oURlfcap28.0-99.0The [facility] GlenbeighComment on above:Performed By: #### HCVPCRR #### [facility] [address] [place] [address] Dr. Josh Ch #0.6 103/ulNormal0.3-0.8The [facility] GlenbeighComment on above:Performed By: #### HCVPCRR #### [facility] [address] [place] [address] Dr. Josh Readocytes/100 WBC (Bld)8.7 %Normal1.7-12.0The [facility] Comment on above:Performed By: #### HCVPCRR #### [facility] [address] [place] [address] Dr. Josh Lewis #4.4 103/ulNormal1.4-6.5The [facility] GlenbeighComment on above:Performed By: #### HCVPCRR #### [facility] [address] [place] [address] Dr. Josh Skyutrophils/100 WBC (Bld)60.6 %Tteyrl10.0-75.0The [facility] GlenbeighComment on above:Performed By: #### HCVPCRR #### [facility] [address] [place] [address] Dr. Josh Medinalet mean volume (Bld) [Entitic vol]10.0 fLNormal9.5-13.5The [facility] GlenbeighComment on above:Performed By: #### HCVPCRR #### [facility] [address] [place] [address] Dr. Josh JacintoPLT327 103/ydUjkgat147-114CziGlenbeigh Hospital on above: Performed By: #### HCVPCRR #### [facility] [address] [address] [address] Josh JacintoRBC4.54 106/ulNormal4.20-5.40[facility] on above:Performed By: #### HCVPCRR #### [facility] [address] [address] [address] Josh JacintoWBC7.2 103/ulNormal4.0-11.0[facility] on above: Performed By: #### HCVPCRR #### [facility] [address] [place] [address] Dr. Josh Jasso URINE PROFILEon 60-16-8130Lrxnzdxbn Ql (U)NegativeNormal NEGATIVEGlenbeigh Hospital on above:Performed By: #### HCVPCRR #### [facility] [address] [place] [address] Dr. Josh Salgueroarity (U)CLEARNormalCLEARSt. Mary's Medical Center, Ironton Campusment on above: Performed By: #### HCVPCRR #### [facility] [address] [place] [address] Dr. Josh Burr (U)LT. YELLOWNormalYMcCullough-Hyde Memorial Hospital on above:Performed By: #### HCVPCRR #### [facility] [address] [place] [address] Dr. Josh GomesVIKTORIA micrscopic examination will be performed if indicated. NormalThe [facility] on above:Performed By: #### HCVPCRR #### [facility] [address] [place] [address] Dr. Josh JacintoGlucose Ql (U)NegativeNormalNEGATIVECommunity Regional Medical CenterCommclaren caro region on above:Performed By: #### HCVPCRR #### [facility] [address] [place] [address] Dr. Josh JacintoHemoglobin Ql (U)LARGEAbnormalNEGATIVECleveland Clinic Euclid Hospital on above:Performed By: #### HCVPCRR #### [facility] [address] [place] [address] Dr. Josh Tyler Ql (U)NegativeNormalNEGATIVEThe [facility]ighComment on above:Performed By: #### HCVPCRR #### [facility] [address] [place] [address] Dr. Josh JacintoLEUKOCYTESNegativeNormalNEGATIVEThe [facility]ighComment on above:Performed By: #### HCVPCRR #### [facility] [address] [place] [address] Dr. Josh Reevestrite Ql (U)NegativeNormalNEGATIVEThe Lake Como HospitalComment on above:Performed By: #### HCVPCRR #### [facility] [address] [place] [address] Dr. Josh JacintopH (U)6.5 [pH]Normal5-9The [facility]ighComment on above: Performed By: #### HCVPCRR #### [facility] [address] [place] [address] Dr. Josh JacintoSPEC GRAVITY1.949Hkopup6.005-<=1.025The [facility]ighComment on above:Performed By: #### HCVPCRR #### [facility] [address] [place] [address] Dr. Josh Hilario PROTEINNegativeNormalNEGATIVE/ TRACEThe [facility] Comment on above:Performed By: #### HCVPCRR #### [facility] [address] [place] [address] Dr. Josh Green MICRO INDINDICATEDNormalThe [facility]ighComment on above: Performed By: #### HCVPCRR #### [facility] [address] [place] [address] Dr. Josh Dominique Qn (U)0.2 {Pio'U}/dLNormal0.2 - 1.0The [facility]ighComment on above:Performed By: #### HCVPCRR #### [facility] [address] [place] [address] Dr. Josh Gillette QUANT HCGon 62-21-1549XTO QUANT4 mIU/mLNormalThe [facility]ighComment on above:Performed By: #### PREGQNT #### [facility] [address] [place] [address] Dr. Josh Jesus Kettering HealthComment on above: Result Comment: 5-50 0.2-1 WEEK 50-500 1-2 WEEKS 100-5,000 2-3 WEEKS 500-10,000 3-4 WEEKS 1,000-50,000 4-5 WEEKS 10,000-100,000 5-6 WEEKS 15,000-200,000 6-8 WEEKS 10,000-100,000 2-3 MONTHSPerformed By: #### PREGQNT #### [facility] [address] [place] [address] Dr. Josh LopezIMErasta 25-77-7080CZI Coag (PPP) [Relative time]1.29 {INR} NormalCommunity Regional Medical CenterCommclaren caro region on above:Performed By: #### HCVPCRR #### [facility] [address] [place] [address] Dr. Josh Barajas [facility] HospitalComment on above:Result Comment: DESIRED INR: 2.0 - 3.0 CONDITIONS NOT LISTED BELOW 2.5 - 3.5 FOR PROSTHETIC HEART VALVE REPLACEMENT 2.5 - 3.5 RECURRENT THROMBOSIS Performed By: #### HCVPCRR #### [facility] [address] [place] [address] Dr. Josh Ch Coag (PPP) [Time]13.7 sCritically high9.0-11.6The [facility]ighComment on above:Performed By: #### HCVPCRR #### [facility] [address] [place] [address] Dr. Josh Romero 03-62-0558lCQA Coag (Bld) [Time]25.1 kZeubmh53.3-36.2[facility] on above:Performed By: #### HCVPCRR #### [facility] [address] [place] [address] Dr. Josh ALONZO ONLY 31-47-2293HKJNYQORKBOQ SEENNormalNONE SEENCommunity Regional Medical CenterComment on above:Performed By: #### HCVPCRR #### [facility] [address] [place] [address] Dr. Josh Garcia identified Cx Nom (U)NOT INDICATEDSelect Medical OhioHealth Rehabilitation Hospital - DublinComment on above:Performed By: #### HCVPCRR #### [facility] [address] [place] [address] Dr. Josh JacintoCASTJUANIS SEENNormalNONE SEENGlenbeigh Hospital on above:Performed By: #### HCVPCRR #### [facility] [address] [place] [address] Dr. Josh Kearneyystals LM Nom (Urine sed)NONE SEENNormalNONE SEENGlenbeigh Hospital on above:Performed By: #### HCVPCRR #### [facility] [address] [place] [address] Dr. Moreno ChangEpithelial cells LM Ql (Urine sed)MODERATEAbnormalNONE SEEN /RARE The [facility]ighCommclaren caro region on above:Performed By: #### HCVPCRR #### [facility] [address] [place] [address] Dr. Josh JacintoMUCOUSDARCIE SEENNormalNONE SEENGlenbeigh Hospital on above:Performed By: #### HCVPCRR #### [facility] [address] [place] [address] Dr. Josh JacintoEjibpEQP19-78Cohwfhnn7-7BmhGlenbeigh Hospital on above: Performed By: #### HCVPCRR #### [facility] [address] [place] [address] Dr. Josh JacintoWBC0-2AbnormalNONE SEENGlenbeigh Hospital on above: Performed By: #### HCVPCRR #### [facility] [address] [place] [address] Dr. Josh JacintoUS PREG TVon [id number] PREG TVEXAMINATION: US PREG TV HISTORY: Ectopic COMPARISON: 07/04/2022 [...] Electronically authenticated by: AMNA VALLADARES Date: 2022-10-13 08:40NoUniversity [facility]als [facility] AUTO DIFFon [id number] #0.0 103/ulNormal0.0-0.1The [facility]ighComment on above:Performed By: #### HCVPCRR #### [facility] [address] [place] [address] Dr. Josh JacintoBasophils/100 WBC (Bld)0.3 %Normal0.2-2.0The [facility] Comment on above:Performed By: #### HCVPCRR #### [facility] [address] [place] [address] Dr. Josh Merchant #0.0 103/ulNormal0.0-0.7The [facility] Glen[facility]ighComment on above: Performed By: #### HCVPCRR #### [facility] [address] [place] [address] Dr. Josh Barrosoosinophils/100 WBC (Bld)0.4 %Critically low0.9-7.0The [facility] Glen[facility]ighComment on above:Performed By: #### HCVPCRR #### [facility] [address] [address] [address] Josh Barrosorythrocyte distribution width (RBC) [Ratio]12.7 %Ghnlde51.0-15.0 The [facility] Glen[facility]ighComment on above:Performed By: #### HCVPCRR #### [facility] [address] [place] [address] Dr. Josh JacintoHematocrit (Bld) [Volume fraction]39.0 %Oltdtg93.0-48.0The [facility] Glen[facility]ighComment on above:Performed By: #### HCVPCRR #### [facility] [address] [place] [address] Dr. Josh JacintoHemoglobin (Bld) [Mass/Vol]13.1 g/hBMtcdve89.0-16.0The [facility]ighComment on above:Performed By: #### HCVPCRR #### [facility] [address] [place] [address] Dr. Josh Ramirez #0.03 10e3/ulNormal0.00-0.03The [facility]ighComment on above:Performed By: #### HCVPCRR #### [facility] [address] [place] [address] Dr. Josh Ramirez %0.3 %Normal0.0-0.5The [facility]ighComment on above: Performed By: #### HCVPCRR #### [facility] [address] [place] [address] Dr. Josh Bender #2.0 103/ulNormal1.2-3.8The [facility]ighComment on above:Performed By: #### HCVPCRR #### [facility] [address] [place] [address] Dr. Josh Phamhocytes/100 WBC (Bld)18.4 %Critically low20.5-60.0The [facility]ighComment on above:Performed By: #### HCVPCRR #### [facility] [address] [place] [address] Dr. Josh SawyerUAL DIFF REQNONormalThe [facility]ighComment on above: Performed By: #### HCVPCRR #### [facility] [address] [place] [address] Dr. Josh Royal (RBC) [Entitic mass]29.0 duHpeyhx26.7-34.0The [facility]ighComment on above:Performed By: #### HCVPCRR #### [facility] [address] [place] [address] Dr. Josh Guadarrama (RBC) [Mass/Vol]33.6 g/kPAxsdjx95.9-35.2The [facility]ighComment on above:Performed By: #### HCVPCRR #### [facility] [address] [place] [address] Dr. Josh Yu (RBC) [Entitic vol]86.5 bCJsetoz68.0-99.0The [facility]ighComment on above:Performed By: #### HCVPCRR #### [facility] [address] [place] [address] Dr. Josh Ch #0.8 103/ulNormal0.3-0.8The [facility]ighComment on above:Performed By: #### HCVPCRR #### [facility] [address] [place] [address] Dr. Josh Readocytes/100 WBC (Bld)7.1 %Normal1.7-12.0The [facility] Comment on above:Performed By: #### HCVPCRR #### [facility] [address] [place] [address] Dr. Josh Lewis #8.1 103/ulCritically high1.4-6.5The [facility] Comment on above:Performed By: #### HCVPCRR #### [facility] [address] [place] [address] Dr. Josh Skyutrophils/100 WBC (Bld)73.5 %Anwzug55.0-75.0The [facility]ighComment on above:Performed By: #### HCVPCRR #### [facility] [address] [place] [address] Dr. Josh Medinalet mean volume (Bld) [Entitic vol]10.4 fLNormal9.5-13.5The [facility]ighComment on above:Performed By: #### HCVPCRR #### [facility] [address] [place] [address] Dr. Josh JacintoPLT329 103/yoAaulos325-728Nfo [facility]ighComment on above: Performed By: #### HCVPCRR #### [facility] [address] [place] [address] Dr. Josh JacintoRBC4.51 106/ulNormal4.20-5.40The [facility] on above:Performed By: #### HCVPCRR #### [facility] [address] [place] [address] Dr. Josh JacintoWBC11.0 103/ulNormal4.0-11.0The [facility] on above:Performed By: #### HCVPCRR #### [facility] [address] [place] [address] Dr. Josh Mirza URINEon 66-65-5183YXBYBLM URINECulture Observations: NO GROWTH.NormalCommunity Regional Medical CenterCommclaren caro region on above:Performed By: #### HCGSUB #### [facility] [address] [place] [address] Dr. Josh Jasso URINE PROFILEon 34-72-9227Skldftucb Ql (U)NegativeNormal NEGATIVEThe [facility]ighComment on above:Performed By: #### HCVPCRR #### [facility] [address] [place] [address] Dr. Josh Reyes (U)CLEARNormalCLEARCommunity Regional Medical CenterCommclaren caro region on above: Performed By: #### HCVPCRR #### [facility] [address] [place] [address] Dr. Josh Burr (U)LT. YELLOWNormalYELLOWGlenbeigh Hospital on above:Performed By: #### HCVPCRR #### [facility] [address] [place] [address] Dr. Josh Alfonso micrscopic examination will be performed if indicated. NormalGlenbeigh Hospital on above:Performed By: #### HCVPCRR #### [facility] [address] [place] [address] Dr. Josh Cowartose Ql (U)NegativeNormalNEGATIVECommunity Regional Medical CenterComment on above:Performed By: #### HCVPCRR #### [facility] [address] [place] [address] Dr. Josh JacintoHemoglobin Ql (U)TRACE-LYSEDAbnormalNEGMercy Health Lorain Hospital Comment on above:Performed By: #### HCVPCRR #### [facility] [address] [place] [address] Dr. Josh JacintoKetones Ql (U)NegativeNormalNEGATIVECommunity Regional Medical CenterComment on above:Performed By: #### HCVPCRR #### [facility] [address] [place] [address] Dr. Josh JacintoLEUKOCYTESSMALLAbnormalNEGATIVEThe [facility]ighComment on above:Performed By: #### HCVPCRR #### [facility] [address] [place] [address] Dr. Josh JacintoNitrite Ql (U)NegativeNormalNEGATIVECommunity Regional Medical CenterComment on above:Performed By: #### HCVPCRR #### [facility] [address] [place] [address] Dr. Josh JacintopH (U)6.0 [pH]Normal5-9The [facility]ighComment on above: Performed By: #### HCVPCRR #### [facility] [address] [place] [address] Dr. Josh JacintoSPEC GRAVITY1.664Obvwhv8.005-<=1.025The [facility]ighComment on above:Performed By: #### HCVPCRR #### [facility] [address] [place] [address] Dr. Josh Hilario PROTEINNegativeNormalNEGATIVE/ TRACECommunity Regional Medical Center Comment on above:Performed By: #### HCVPCRR #### [facility] [address] [place] [address] Dr. Josh Green MICRO INDINDICATEDNoalThBucyrus Community HospitalComment on above: Performed By: #### HCVPCRR #### [facility] [address] [place] [address] Dr. Josh JacintoUrobilinogen Qn (U)0.2 {Pio'U}/dLNormal0.2 - 1.0The [facility]ighComment on above:Performed By: #### HCVPCRR #### [facility] [address] [place] [address] Dr. Josh BearASEon 01-96-5432Xdzrzj [Catalytic activity/Vol]128.0 U/LNormal 73.0-393.0The [facility]ighComment on above:Performed By: #### CMP, LIPA, HSTROPN #### [facility] [address] [place] [address] Dr. Josh Horton 92-89-5869Dgrmfwadw (Bld) [#/Vol]NegativeNormalNEGATIVEThe [facility]ighComment on above:Performed By: #### BOX #### [facility] [address] [place] [address] Dr. Josh JacintoPREG HCG QUALon 44-45-1125MOUQLESIO, QUALPositiveAbnormalNEGATIVE The [facility]ighCommclaren caro region on above:Performed By: #### BOX #### [facility] [address] [place] [address] Dr. Josh JacintoPROF 14(COMP METB)on 22-71-7368Mortgzm [Mass/Vol]3.6 g/dLNormal 3.4-5.0The [facility] on above:Performed By: #### CMP, LIPA, HSTROPN #### [facility] [address] [place] [address] Dr. Josh JacintoAlbumin/Globulin [Mass ratio]0.9 {ratio}NormalThe [facility] on above:Performed By: #### CMP, LIPA, HSTROPN #### [facility] [address] [place] [address] Dr. Josh Hickey [Catalytic activity/Vol]94 U/FBhtuje86-688Lzp UC Healthment on above:Performed By: #### CMP, LIPA, HSTROPN #### [facility] [address] [place] [address] Dr. Josh Bradshaw [Catalytic activity/Vol]22 U/ESmtnye52-65Cyp [facility]ighComment on above:Performed By: #### CMP, LIPA, HSTROPN #### [facility] [address] [address] [address] Josh JacintoAnion gap [Moles/Vol]10.9 mmol/LNormalCommunity Regional Medical Center Comment on above:Performed By: #### CMP, LIPA, HSTROPN #### [facility] [address] [address] [address] Josh JacintoAST [Catalytic activity/Vol]13 U/LCritically nkz42-51Ypi [facility]ighComment on above:Performed By: #### CMP, LIPA, HSTROPN #### [facility] [address] [place] [address] Dr. Josh JacintoBilirubin [Mass/Vol]0.1 mg/dLCritically low0.2-1.0[facility] Medical CenterComment on above:Performed By: #### CMP, LIPA, HSTROPN #### [facility] [address] [place] [address] Dr. Josh JacintoCalcium [Mass/Vol]9.0 mg/dLNormal8.5-10.1[facility] Comment on above:Performed By: #### CMP, LIPA, HSTROPN #### [facility] [address] [place] [address] Dr. Josh JacintoChloride [Moles/Vol]105 mmol/OPrptcq10-852MmxCommunity Regional Medical Center Comment on above:Performed By: #### CMP, LIPA, HSTROPN #### [facility] [address] [place] [address] Dr. Josh JacintoCO2 [Moles/Vol]23.5 mmol/RPytrsn99.0-32.0[facility] Comment on above:Performed By: #### CMP, LIPA, HSTROPN #### [facility] [address] [place] [address] Dr. Josh JacintoCreatinine [Mass/Vol]0.68 mg/dLNormal0.55-1.02The [facility]ighComment on above:Performed By: #### CMP, LIPA, HSTROPN #### [facility] [address] [address] [address] Josh BarrosoGFR-AF BURMESE>60Normal>=60The [facility]ighComment on above:Performed By: #### CMP, LIPA, HSTROPN #### [facility] [address] [address] [address] Josh BarrosoGFR-NON AF BURMESE>60Normal>=60The [facility]ighComment on above:Performed By: #### CMP, LIPA, HSTROPN #### [facility] [address] [place] [address] Dr. Josh JacintoGlobulin (S) [Mass/Vol]4.1 g/dLNormalThe [facility]ighComment on above:Performed By: #### CMP, LIPA, HSTROPN #### [facility] [address] [place] [address] Dr. Josh JacintoGlucose [Mass/Vol]98 mg/cBZdnfik22-603ZpxCommunity Regional Medical Center Comment on above:Performed By: #### CMP, LIPA, HSTROPN #### [facility] [address] [place] [address] Dr. Josh JacintoPotassium [Moles/Vol]3.4 mmol/LCritically low3.5-5.1[facility] Campusment on above:Performed By: #### CMP, LIPA, HSTROPN #### [facility] [address] [place] [address] Dr. Josh JacintoProtein [Mass/Vol]7.7 g/dLNormal6.4-8.2[facility] Comment on above:Performed By: #### CMP, LIPA, HSTROPN #### [facility] [address] [place] [address] Dr. Josh JacintoSodium [Moles/Vol]136 mmol/PNcseaz226-398RhuCommunity Regional Medical Center Comment on above:Performed By: #### CMP, LIPA, HSTROPN #### [facility] [address] [address] [address] Josh Gutierres nitrogen [Mass/Vol]14.0 mg/dLNormal7.0-18.0The [facility] on above:Performed By: #### CMP, LIPA, HSTROPN #### [facility] [address] [address] [address] Josh Gutierres nitrogen/Creatinine [Mass ratio]20.6 mg/mgNoOhioHealth Nelsonville Health Center on above:Performed By: #### CMP, LIPA, HSTROPN #### [facility] [address] [place] [address] Dr. Josh Jaime, HIGH SENSITIVITYon 69-37-1139FZYTLM<4.2Owtstp4.0-51.3 [facility] on above:Result Comment: CUT-OFF POINTS HAVE BEEN ESTABLISHED BASED ON THE FOURTH UNIVERSAL DEFINITIONS OF MYOCARDIAL INFARCTION. THE UPPER REFERENCE LIMIT (URL) OF TROPONIN, DEFINED THE 99TH PERCENTILE OF cTnI DISTRIBUTION IN A REFERENCE POPULATION, HAS BEEN CONFIRMED THE DECISION THRESHOLD FOR [place] DIAGNOSIS.Performed By: #### CMP, LIPA, HSTROPN #### [facility] [address] [place] [address] Dr. Josh Antunez MICROSCOPIC ONLYon 39-59-7164KWQNJDSOXJJMIMwhfpcxaAIKX SEEN The [facility]ighCommclaren caro region on above:Performed By: #### HCVPCRR #### [facility] [address] [place] [address] Dr. Josh Garcia identified Cx Nom (U)INDICATEDNoLakeHealth Beachwood Medical CenterCommclaren caro region on above:Performed By: #### HCVPCRR #### [facility] [address] [place] [address] Dr. Josh Elkins SEENNormalNONE SEENCommunity Regional Medical CenterCommclaren caro region on above:Performed By: #### HCVPCRR #### [facility] [address] [place] [address] Dr. Josh Moreno LM Nom (Urine sed)NONE SEENNormalNONE SEENGlenbeigh Hospital on above:Performed By: #### HCVPCRR #### [facility] [address] [address] [address] Josh Castañedathelial cells LM Ql (Urine sed)MODERATEAbnormalNONE SEEN /RARE The [facility]ighCommclaren caro region on above:Performed By: #### HCVPCRR #### [facility] [address] [address] [address] Josh JacintoMUCOUSNONE SEENNormalNONE SEENGlenbeigh Hospital on above:Performed By: #### HCVPCRR #### [facility] [address] [address] [address] Josh JacintoRBCNONE SEENAbnormal0-2[facility] on above: Performed By: #### HCVPCRR #### [facility] [address] [address] [address] Josh JacintoWBC2-5AbnormalNONE SEENGlenbeigh Hospital on above: Performed By: #### HCVPCRR #### [facility] [address] [address] [address] Josh Jasso URINE PROFILEon 23-85-5542Mwjqvtdqj Ql (U)NegativeNormal NEGATIVEGlenbeigh Hospital on above:Performed By: #### PREGU, ERUR #### [facility] [address] [address] [address] Josh Reyes (U)CLEARNormalCLEARThe [facility] on above: Performed By: #### PREGU, ERUR #### [facility] [address] [address] [address] Josh Burr (U)LT. YELLOWNormalYELLOWGlenbeigh Hospital on above:Performed By: #### PREGU, ERUR #### [facility] [address] [address] [address] Josh Alfonso micrscopic examination will be performed if indicated. NormalThe [facility] on above:Performed By: #### PREGU, ERUR #### [facility] [address] [place] [address] Dr. Josh JacintoGlucose Ql (U)NegativeNormalNEGATIVECommunity Regional Medical CenterComment on above:Performed By: #### PREGU, ERUR #### [facility] [address] [place] [address] Dr. Josh JacintoHemoglobin Ql (U)NegativeNormalNEGATIVECommunity Regional Medical Center Comment on above:Performed By: #### PREGU, ERUR #### [facility] [address] [place] [address] Dr. Josh JacintoKetones Ql (U)NegativeNormalNEGATIVECommunity Regional Medical CenterComment on above:Performed By: #### PREGU, ERUR #### [facility] [address] [place] [address] Dr. Josh JacintoLEUKOCYTESNegativeNormalNEGATIVECommunity Regional Medical CenterComment on above:Performed By: #### PREGU, ERUR #### [facility] [address] [place] [address] Dr. Josh JacintoNitrite Ql (U)NegativeNormalNEGATIVECommunity Regional Medical CenterComment on above:Performed By: #### PREGU, ERUR #### [facility] [address] [place] [address] Dr. Josh JacintopH (U)6.0 [pH]Normal5-9Community Regional Medical CenterComment on above: Performed By: #### PREGU, ERUR #### [facility] [address] [place] [address] Dr. Josh JacintoSPEC GRAVITY1.870Keylue2.005-<=1.025The [facility] System GlenbeighComment on above:Performed By: #### PREGU, ERUR #### [facility] [address] [place] [address] Dr. Josh Hilario PROTEINNegativeNormalNEGATIVE/ TRACECommunity Regional Medical Center Comment on above:Performed By: #### PREGU, ERUR #### [facility] [address] [place] [address] Dr. Josh Green MICRO INDNOT INDICATEDNormalThe Lake Como HospitalComment on above:Performed By: #### PREGU, ERUR #### [facility] [address] [address] [address] Josh Ruizbilino Qn (U)0.2 {Pio'U}/dLNormal0.2 - 1.0The [facility] GlenbeighComment on above:Performed By: #### PREGU, ERUR #### [facility] [address] [address] [address] Josh JacintoPREGNANCY URon [id number], QUALNegativeNormalNEGATIVEThe [facility]beighComment on above:Performed By: #### PREGU, ERUR #### [facility] [address] [address] [address] Josh JacintoXR ABD FLAT UP_PA Edgard [id number] ABD FLAT UP_PA CHEXAM: XR ABD FLAT SIGNAL OR CH HISTORY: [...] Electronically authenticated by: JANICE KAUFMAN Date: 2022-09-14 02:39[facility] ACOG PANEL 2: 21 to 29on 07-10-2022..NormalThe [facility] GlenbeighCommclaren caro region on above:Performed By: #### HCGSUB #### [facility] [address] [address] [address] Josh Sepulveda Gdln ACOG Cqcfujx56-25IdipwdYcyRiverside Methodist Hospitalment on above:Performed By: #### HCGSUB #### [facility] [address] [place] [address] Dr. Josh JacintoDIAGNOSIS:CommentSelect Medical TriHealth Rehabilitation Hospital on above: Result Comment: NEGATIVE FOR INTRAEPITHELIAL LESION OR MALIGNANCY.Performed By: #### HCGSUB #### [facility] [address] [place] [address] Dr. Josh JacintoMethodology:CommentSelect Medical TriHealth Rehabilitation Hospital on above: Result Comment: This liquid based ThinPrep(R) pap test was screened with the use of an image guided system.Performed By: #### HCGSUB #### [place] [address] [address] Josh JacintoNote:CommentSelect Medical TriHealth Rehabilitation Hospital on above:Result Comment: The Pap smear is a screening test designed to aid in the detection of premalignant and malignant conditions of the uterine cervix. It is not a diagnostic procedure and should not be used as the sole means of detecting cervical cancer. Both false-positive and false-negative reports do occur. .Performed By: #### HCGSUB #### [address] [place] [address] Dr[address] Josh JacintoPerformed by:CommentSelect Medical TriHealth Rehabilitation Hospital on above: Result Comment: Louis Salazar Convertible Top Installer (ASCP)Performed By: #### HCGSUB #### [address] [place] [address] [address] Josh JacintoReflex Criteria:[facility] on above:Result Comment: The HPV DNA reflex criteria were not met with this specimen result therefore, no HPV testing was performed. .Performed By: #### HCGSUB #### [facility] [address] [place] [address] Dr. Josh JacintoSpecimen adequacy:CommentSelect Medical TriHealth Rehabilitation Hospital on above:Result Comment: Satisfactory for evaluation. Endocervical and/or squamous metaplastic cells (endocervical component) are present.Performed By: #### HCGSUB #### [facility] [address] [place] [address] Dr. Josh JacintoHCG-BETA SUBUNIT QUANTon [id number],Beta Subunit,Qnt,Serum<1 NormalThe [facility] System GlenbeighComment on above:Result Comment: Female (Non- ) 0 - 5 (Postmenopausal) 0 - 8 . Female () Weeks of Gestation 3 6 - 71 4 10 - 750 5 607 - 2613 6 695 - 37312 7 7403 -960285 8 62701 -890672 9 74432 -425060 10 18117 -784530 12 38118 -036814 14 82630 - 76344 15 44673 - 87986 16 7100 - 97655 17 0873 - 90133 18 3406 - 70545 Liana ECLIA methodologyPerformed By: #### HCGSUB #### [facility] [address] [address] [address] Josh JacintoUS PELVIS AND TRANSVAGon 07-08-8117GD PELVIS AND TRANSVAG EXAMINATION: US PELVIS AND [...] Electronically authenticated by: AMNA VALLADARES Date: 2022-07-05 16:12NoLakeHealth Beachwood Medical CenterCult,Urineon [id number],UrineSpecimen Description .CLEAN CATCH URINE Special Requests NOT REPORTED Culture NO SIGNIFICANT GROWTH Report Status FINAL 05/19/2021NormalThe Bellevue HospitalComment on above: Performed By: #### SWCGP #### [facility] [phone] Switchboard Operator: Collin Madoff, MDMicroscopic UrinalysisOrdered By: Richar Obrien on 05-18-2021-[facility] Work Phone: amorphous, UANOT REPORTEDNoneMercy Health Work Phone: bacteria, UA2+AbnormalNoneMercy Health Work Phone: Oasts UANOT REPORTED/LPFMercy Health Work Phone: crystals, UANOT REPORTEDNone /HPFMercy Health Work Phone: epithelial Cells UA5 TO 10[facility] Work Phone: Interpretation and review of laboratory results AbnormalMercy Health Work Phone: Mucus, UA1+AbnormalNoneMer[facility] Health Work Phone: Other Observations UANOT REPORTEDNOT REQ.[facility] Work Phone: rBC, UANoneMercy Health Work Phone: renal Epithelial, UANOT REPORTED0 /HPFMercy Health Work Phone: Trichomonas, UANOT REPORTEDNoneMer[facility] Work Phone: WBC, UA10 TO 20[facility] Work Phone: Yeast, UANOT REPORTEDNoneMer[facility] Health Work Phone: [facility] Work Phone: UrinalysisOrdered By: Richar Obrien on 05-18-2021 Bilirubin UrineNegativeNEGATIVEMercy Health Work Phone: color, UAYELLOWYELLOWMercy Health Work Phone: Glucose, UrNegativeNEGATIVEMercy Health Work Phone: Interpretation and review of laboratory results AbnormalMercy Health Work Phone: Ketones Ql (U)NegativeNEGATIVEMercy Health Work Phone: leukocyte esterase Test strip Ql (U)SMALLAbnormal NEGATIVEMercy Health Work Phone: Nitrite, UrineNegativeNEGATIVEMercy Health Work Phone: xH, UA6.0[facility] Work Phone: protein, UANegativeNEGATIVEMercy Health Work Phone: specific [place], UA>1.030HighMercy Health Work Phone: Turbidity UASLIGHTLY CLOUDYAbnormalCLEARMercy Health Work Phone: Urinalysis CommentsNOT REPORTEDMercy Health Work Phone: Urine HgbNegativeNEGATIVEMercy Health Work Phone: Urobilinogen, UrineNormalNormalMercy Health Work Phone: [facility] Work Phone: Urinalysis, Routineon [id number], SemiQt,Ur NegativeNormalNEGMercy Fort Lauderdale HospitalComment on above:Performed By: #### CHERYLGP #### [employer] [address] [place] [phone] Switchboard Operator: Bishop Brady, UrineNegativeNormalNEGMercy Fort Lauderdale HospitalComment on above:Performed By: #### CHERYLGP #### [facility] [phone] Switchboard Operator: AIDE Bradylarity (U)SLIGHTLY CLOUDYAbnormalCLEARMercy Fort Lauderdale HospitalComment on above:Performed By: #### CHERYLGP #### [employer] [address] [place] [phone] Switchboard Operator: AIDE Bradyolor (U)YELLOWNormalYELMercy Fort Lauderdale Hospital Comment on above:Performed By: #### CHERYLGP #### [employer] [address] [place] [address] Switchboard Operator: Collin De La Fuente MDGlucose Ql (U)NegativeNormalNEGMercy Fort Lauderdale HospitalComment on above:Performed By: #### SWCGP #### [facility] [address] [place] [address] Switchboard Operator: Collin De La Fuente MDKetones Ql (U)NegativeNormalNEGMercy Fort Lauderdale HospitalComment on above:Performed By: #### SWCGP #### [facility] [address] [place] [address] Switchboard Operator: Collin De La Fuente MDLeukocyte esterase Test strip Ql (U)SMALL AbnormalNEGMercy [facility] Children'S HospitalComment on above:Performed By: #### IMELDACGP #### [address] [address] Switchboard Operator: Belén Bradytrite,UrNegativeNormalNEGThe [facility] Comment on above:Performed By: #### HCERYLGP #### [address] [address] Switchboard Operator: TINO Brady,Ur6.7Sysull6.0-9.0[facility] Comment on above:Performed By: #### IMELDACGP #### [address] [address] Switchboard Operator: TINO Bradyrotein Ql (U)NegativeNormalNEGMercy Fort Lauderdale HospitalComment on above:Performed By: #### IMELDACGP #### [address] [address] Switchboard Operator: Sagar Brady. [place],Ur>1.538Gfdo6.010-1.020Mercy [facility]'S HospitalComment on above:Performed By: #### IMELDACGP #### [address] [address] Switchboard Operator: Collin De La Fuente MDUrobilinogen,UrNormalNormalNORMMercy [facility] Children'S HospitalComment on above:Performed By: #### CHERYLGP #### [facility] [address] [place] [address] Switchboard Operator: AIDE BradyommentNOT REPORTEDNormalThe [facility] Comment on above:Performed By: #### CHERYLGP #### [address] [address] Switchboard Operator: Collin De La Fuente MDUrinalysis,Microon 05-18-2021-----NormalMercy Fort Lauderdale HospitalComment on above:Performed By: #### CHERYLGP #### [address] [address] Switchboard Operator: Collin De La Fuente MDBacteria2+AbnormalCleveland Clinic [facility] Comment on above:Performed By: #### CHERYLGP #### [address] [address] Switchboard Operator: Collin De La Fuente MDEpithelial cells LM Ql (Urine sed)5 TO 10Normal 0-25[facility] Centercy [facility] Children'S HospitalComment on above:Performed By: #### CHERYLGP #### [facility] [address] [place] [address] Switchboard Operator: GOYO Bradyucus Strands1+AbnormalCleveland Clinic [facility] Comment on above:Performed By: #### IMELDACGP #### [facility] [employer] [address] [place] [address] Switchboard Operator: Collin De La Fuente MDUrine RBC'sNoneNormal0-2MercVeterans Administration Medical Center Comment on above:Performed By: #### CHERYLGP #### [facility] [employer] [address] [place] [address] Switchboard Operator: Collin De La Fuente MDUrine WBC's10 TO 96Igsnzw1-0Wtabb [facility]'S HospitalComment on above:Performed By: #### SWCGP #### [facility] [address] [place] [address] Switchboard Operator: Shira Brady sediment LM Ql (Urine sed)NOT REPORTED NormalNONEMercy Fort Lauderdale HospitalComment on above:Performed By: #### SWCGP #### [facility] [address] [place] [address] Switchboard Operator: AIDE BradyastsNOT REPORTEDNormalMercy [facility] Comment on above:Performed By: #### SWCGP #### [facility] [address] [place] [address] Switchboard Operator: Viet Bradysttrenton LM Nom (Urine sed)NOT REPORTEDNormal NONEMercy Fort Lauderdale HospitalComment on above:Performed By: #### SWCGP #### [address] [address] Switchboard Operator: Collin De La Fuente MDEpithelial, RenalNOT ANYFCXRCBwpdxy5Iroya [facility]erd[facility] HospitalComment on above:Performed By: #### SWCGP #### [address] [address] Switchboard Operator: Collin De La Fuente MDOther ObservationsNOT REPORTEDNormalNREQMercy Fort Lauderdale HospitalComment on above:Performed By: #### SWCGP #### [facility] [address] [address] Switchboard Operator: Collin De La Fuente MDTrichomonasNOT REPORTEDNormalNONEMercy Fort Lauderdale HospitalComment on above:Performed By: #### SWCGP #### [facility] [address] [place] [address] Switchboard Operator: Collin De La Fuente MDYeastNOT REPORTEDNormalNONEMercy [facility] Comment on above:Performed By: #### SWCGP #### [facility] [address] [address] Switchboard Operator: Josefa Brady Metab w/rfx MGon 04-14-2021(cont.)Normal The Bellevue HospitalComment on above:Result Comment: Average GFR for 20-29 years old: 116 mL/min/1.73sq m Chronic Kidney Disease: <60 mL/min/1.73sq m Kidney failure: <15 mL/min/1.73sq m eGFR calculated using average adult body mass. Additional eGFR calculator available at: http://www.[employer]/multiple_crcl_2012.htmPerformed By: #### BMPX, LIP, LIVP, CDP #### [address] [place] [address] Switchboard Operator: Amna Clements MDAnion gap [Moles/Vol]12 mmol/LNormal9-17The [facility] HospitalComment on above:Performed By: #### BMPX, LIP, LIVP, CDP #### [address] [place], [facility]83 Switchboard Operator: Amna Clements MDBUN/CRE Xhuje06Jzlxvg9-94Bmzdi [facility] Comment on above:Performed By: #### BMPX, LIP, LIVP, CDP #### [address] [place], [place] 6008183 Switchboard Operator: Amna Clements MDCalcium [Mass/Vol]8.8 mg/dLNormal8.6-10.4The [facility] HospitalComment on above:Performed By: #### BMPX, LIP, LIVP, CDP #### [address] [place] [address] Switchboard Operator: AIDE Bauerhloride [Moles/Vol]101 mmol/VGfkpkc06-786LlyfnThe Bellevue HospitalComment on above:Performed By: #### BMPX, LIP, LIVP, CDP #### [address] [place] [address] Switchboard Operator: Amna Clements MDCO2 [Moles/Vol]23 mmol/RMdyska40-57Uhsox [facility] HospitalComment on above:Performed By: #### BMPX, LIP, LIVP, CDP #### [address] [place] [address] Switchboard Operator: Amna Clements MDCreatinine [Mass/Vol]0.47 mg/dLLow0.50-0.90MerSt. Mary's Medical Center, Ironton Campus HospitalComment on above:Performed By: #### BMPX, LIP, LIVP, CDP #### [address] [place] [address] Switchboard Operator: ELLEN Bauer, Amer>60Normal>60[facility] Comment on above:Performed By: #### BMPX, LIP, LIVP, CDP #### [address] [place], [place] [id number] Switchboard Operator: ELLEN Bauer,non Amer>60Normal>60MerSt. Mary's Medical Center, [facility]onton Campus HospitalComment on above:Performed By: #### BMPX, LIP, LIVP, CDP #### [address] [place], [place] 7152483 Switchboard Operator: Amna Clements MDGlucose [Mass/Vol]106 mg/eXWvvj96-78Larry [facility] HospitalComment on above:Performed By: #### BMPX, LIP, LIVP, CDP #### [address] [place], [place] 8372483 Switchboard Operator: Amna Clements MDPotassium [Moles/Vol]3.7 mmol/LNormal3.7-5.3Mercy [facility] HospitalComment on above:Performed By: #### BMPX, LIP, LIVP, CDP #### [address] [place] [address] Switchboard Operator: DEV Bauerodium [Moles/Vol]136 mmol/KMwttvt150-721KbovqThe Bellevue HospitalComment on above:Performed By: #### BMPX, LIP, LIVP, CDP #### [facility] [address] [place] [address] [place] [address] Switchboard Operator: DEV Bauertaging:UK HealthcareComment on above:Result Comment: Stage 1: Some kidney damage normal GFR Stage 2: Mild kidney damage GFR 60-89 Stage 3: Moderate kidney damage GFR 30-59 Stage 4: Severe kidney damage GFR 15-29 Stage 5: Severe kidney damage GFR <15 ESRD - chronic treatment by dialysis or transplantPerformed By: #### BMPX, LIP, LIVP, CDP #### [address] [place] [address] Switchboard Operator: Amna Clements MDUrea nitrogen [Mass/Vol]9 mg/dLNormal6-20The [facility] HospitalComment on above:Performed By: #### BMPX, LIP, LIVP, CDP #### [facility] [address] [place] [address] [place] [address] Switchboard Operator: Amna Clements MDBamary [facility]ckinridge [facility] Metabolic Panel w/ Reflex to MGOrdered By: Cisco Lopez on 69-08-8074Tocji gap [Moles/Vol]12 mmol/L9 - 17 mmol/LMercy Health Work Phone: calcium [Mass/Vol]8.8 mg/dL8.6 - 10.4 mg/dLRegency Hospital [facility] [employer] [employer] Work Phone: chloride [Moles/Vol]101 mmol/L98 - 107 mmol/LMercy [place] [employer] Work Phone: cO2 [Moles/Vol]23 mmol/L20 - 31 mmol/LMtrihealth mccullough-hyde memorial hospitaly [place] [employer] Work Phone: creatinine [Mass/Vol]0.47 mg/dLLow0.50 - 0.90 mg/dL [facility] [place] [employer] Work Phone: GFR >60>60 mL/minDayton Va Medical CenterhopTo Work Phone: GFR Non->60>60 mL/minDayton Va Medical CenterhopTo Work Phone: Glucose [Mass/Vol]106 mg/gXLseg40 - 99 mg/dLRegency Hospital [facility] East [employer] Phone: Interpretation and review of laboratory results AbnormalRegency Hospital [facility] [employer] Phone: potassium [Moles/Vol]3.7 mmol/L3.7 - 5.3 mmol/LMtrihealth mccullough-hyde memorial hospitaly [place] [employer] Work Phone: sodium [Moles/Vol]136 mmol/L135 - 144 mmol/LMtrihealth mccullough-hyde memorial hospitaly [place] [employer] Work Phone: Urea nitrogen (BldV) [Mass/Vol]9 mg/dL6 - 20 mg/dL [facility] [employer] Phone: Urea nitrogen/Creatinine (Bld) [Mass ratio]19[facility] CenterhopTo Work Phone: cBC Auto DifferentialOrdered By: Cisco Lopez on [id number] Eos #0.00[facility] [employer] Phone: absolute Immature Granulocyte0.00[facility] [employer] Phone: absolute Lymph #2.00[facility] [employer] Phone: absolute [place] #1.78HighRegency Hospital Cleveland East [place] [employer] Work Phone: basophils (Bld) [#/Vol]0.00 10*3/uLDayton Va Medical CenterBTIG Phone: basophils/100 WBC (Bld)0 %0 - 2 %[facility] HospitalUniversityLyfe Phone: differential TypeNOT REPORTEDDayton Va Medical CenterBTIG Phone: eosinophils/100 WBC (Bld)0 %Low1 - 4 %[facility] [employer] Phone: Hematocrit (Bld) [Volume fraction]38.4 %36.3 - 47.1 % [employer] Phone: Hemoglobin.gastrointestinal spec 1 Ql (Stl)12.5 g/dL 11.9 - 15.1 g/dLDayton Va Medical CenterBTIG Phone: Immature granulocytes/100 WBC (Bld)0 %0Day[facility] Va Medical CenterBTIG Phone: Interpretation and review of laboratory results AbnormalDayton Va Medical CenterBTIG Phone: lymphocytes/100 WBC (Bld)9 %Low24 - 43 %[employer] Phone: MCH (RBC) [Entitic mass]29.6 pg25.2 - 33.5 pgDayton Va Medical CenterBTIG Phone: MCHC (RBC) [Mass/Vol]32.6 g/dL28.4 - 34.8 g/dLDayton Va Medical CenterBTIG Phone: MCV (RBC) [Entitic vol]91.0 fL82.6 - 102.9 fLDayton Va Medical CenterBTIG Phone: Monocytes/100 WBC (Bld)8 %3 - 12 %[employer] Phone: Morphology Hay (Bld) [Interp]NormalDayton Va Medical CenterBTIG Phone: NRBC Automated0.00.0 per 100 WBCDayton Va Medical CenterBTIG Phone: platelet distribution width (Bld) [Ratio]13.4 %11.8 - 14.4 %[employer] Phone: platelet EstimateNOT REPORTEDDayton Va Medical CenterBTIG Phone: platelet mean volume (Bld) [Entitic vol]10.2 fL8.1 - 13.5 fLDayton Va Medical CenterBTIG Phone: platelets (Bld) [#/Vol]321 10*3/uLDayton Va Medical CenterBTIG Phone: RBC (Bld) [#/Vol]4.22 10*6/uL3.95 - 5.11 m/uLDayton Va Medical CenterhopTo Work Phone: RBC (Bld) [#/Vol]NOT REPORTEDDayton Va Medical CenterhopTo Work Phone: segmented neutrophils/100 WBC (Bld)83 %High36 - 65 % [employer] Work Phone: segs Maeeiyfc50.42HighDayton Va Medical CenterhopTo Work Phone: WBC (Bld) [#/Vol]22.2 10*3/uLSouthwood Community HospitalhopTo Work Phone: WBC (Bld) [#/Vol]NOT REPORTEDDayton Va Medical CenterBTIG Phone: [facility] CenterhopTo Work Phone: cBC with Diffon [id number]. Basophil0.00 k/uLNormal 0.0-0.2[facility]uderdale HospitalComment on above:Performed By: #### DALILA #### [facility] [employer] [address] [place] [address] Switchboard Operator: MDAbs. CaitlynImm.Granulocyte0.00 k/uLNormal0.00-0.30[facility] HospitalComment on above:Performed By: #### DALILA #### [facility] Hospitaltsumobi [address] [place] [address] Switchboard Operator: MDAbs. CaitlynNeutrophil (Seg)18.42 k/uLHigh1.50-8.10[facility] HospitalComment on above:Performed By: #### DALILA #### [facility] [employer] [address] [place] [address] Switchboard Operator: Collin De La Fuente MDBasophils/100 WBC (Bld)0 %Normal0-2[facility] HospitalComment on above:Performed By: #### DALILA #### [facility] [employer] [address] [place] [address] Switchboard Operator: Collin De La Fuente MDEosinophils (Bld) [#/Vol]0.00 10*3/uLNormal 0.00-0.44[facility] HospitalComment on above:Performed By: #### CHERYLGP #### [address] [address] Switchboard Operator: Collin De La Fuente MDEosinophils/100 WBC (Bld)0 %Low1-4[facility]erd[facility] HospitalComment on above:Performed By: #### CHERYLGP #### [address] [address] Switchboard Operator: Collin De La Fuente MDImmature granulocytes/100 WBC (Bld)0 %Normal0 [facility] HospitalComment on above:Performed By: #### CHERYLGP #### [address] [address] Switchboard Operator: Collin De La Fuente MDLymphocytes (Bld) [#/Vol]2.00 10*3/uLNormal 1.10-3.70[facility] HospitalComment on above:Performed By: #### CHERYLGP #### [address] [address] Switchboard Operator: Bhaskar Bradymphocytes/100 WBC (Bld)9 %Hle76-87Wsbwc [facility]uderdale HospitalComment on above:Performed By: #### IMELDACGP #### [address] [address] Switchboard Operator: GOYO Bradyonocytes (Bld) [#/Vol]1.78 10*3/uLHigh0.10-1.20 [facility] HospitalComment on above:Performed By: #### IMELDACGP #### [facility] [employer] [address] [place] [address] Switchboard Operator: Collin Madoff, MDMonocytes/100 WBC (Bld)8 %Normal3-12[facility] HospitalComment on above:Performed By: #### CHERYLGP #### [address] [address] Switchboard Operator: GOYO Bradyorphology Hay (Bld) [Interp]NormalNormalAcmc Healthcare System HospitalComment on above:Performed By: #### CHERYLGP #### [address] [address] Switchboard Operator: Collin De La Fuente MDNeutrophil (Seg)83 %Ouvx68-40Enusk Tiffin HospitalComment on above:Performed By: #### CHERYLGP #### [address] [address] Switchboard Operator: Collin De La Fuente MDErythrocyte distribution width (RBC) [Ratio]13.4 %Mrvnwg57.8-14.4[facility] HospitalComment on above:Performed By: #### CHERYLGP #### [address] [address] Switchboard Operator: Collin De La Fuente MDHematocrit (Bld) [Volume fraction]38.4 %Normal 36.3-47.1[facility]erd[facility] HospitalComment on above:Performed By: #### CHERYLGP #### [address] [address] Switchboard Operator: Collin De La Fuente MDHemoglobin (Bld) [Mass/Vol]12.5 g/dLNormal 11.9-15.1[facility] HospitalComment on above:Performed By: #### CHERYLGP #### [address] [address] Switchboard Operator: GOYO BradyCH (RBC) [Entitic mass]29.6 ivZhkgcp39.2-33.5 [facility] HospitalComment on above:Performed By: #### CHERYLGP #### [address] [address] Switchboard Operator: GOYO BradyCHC (RBC) [Mass/Vol]32.6 g/uYHtmimt84.4-34.8 [facility] HospitalComment on above:Performed By: #### CHERYLGP #### [address] [address] Switchboard Operator: GOYO BradyCV (RBC) [Entitic vol]91.0 yPYwfzlo78.6-102.9 [facility] HospitalComment on above:Performed By: #### CHERYLGP #### [address] [address] Switchboard Operator: Collin De La Fuente MDNRBC Automated0.0 per 100 WBCNormal0.0[facility] HospitalComment on above:Performed By: #### CHERYLGP #### [address] [address] Switchboard Operator: Constantino Bradytelet mean volume (Bld) [Entitic vol]10.2 fL Normal8.1-13.5The [facility] HospitalComment on above:Performed By: #### CHERYLGP #### [address] [address] Switchboard Operator: Collin De La Fuente MDPlatelets (Bld) [#/Vol]321 10*3/yGKjqznf174-920 [facility] HospitalComment on above:Performed By: #### CHERYLGP #### [address] [address] Switchboard Operator: Collin De La Fuente MDRBC (Bld) [#/Vol]4.22 10*6/uLNormal3.95-5.11 [facility] HospitalComment on above:Performed By: #### CHERYLGP #### [address] [address] Switchboard Operator: Collin De La Fuente MDWBC (Bld) [#/Vol]22.2 10*3/uLHigh3.5-11.3[facility]erdale HospitalComment on above:Performed By: #### SWCGP #### [facility] [facility] [employer] [address] [place] [address] Switchboard Operator: Collin De La Fuente MDAuto Diff PerformedNOT REPORTEDNormalMercy Fort Lauderdale HospitalComment on above:Performed By: #### SWCGP #### [facility] [address] [place] [address] Switchboard Operator: Manoj Brady EstimateNOT REPORTEDNormalMercy Fort Lauderdale HospitalComment on above:Performed By: #### SWCGP #### [facility] [employer] [address] [place] [address] Switchboard Operator: ROBERT Brady morphology finding Nom (Bld)NOT REPORTED NormalMercy Fort Lauderdale HospitalComment on above:Performed By: #### SWCGP #### [facility] [employer] [address] [place] [address] Switchboard Operator: YASMIN Brady MorphologyNOT REPORTEDNormalMercy Fort Lauderdale HospitalComment on above:Performed By: #### SWCGP #### [facility] [employer] [address] [place] [address] Switchboard Operator: Collin De La Fuente MDHepatic Function PanelOrdered By: Cisco Lopez on 23-86-0641Pqgursx [Mass/Vol]3.7 g/dL3.5 - 5.2 g/dLDayton Va Medical CenterBTIG Phone: albumin/Globulin [Mass ratio]1.1 {ratio}[employer] Phone: aLP (Bld) [Catalytic activity/Vol]68 U/L35 - 104 U/L [employer] Phone: aLT [Catalytic activity/Vol]36 U/LHigh5 - 33 U/LMtrihealth mccullough-hyde memorial hospitalVolaris Advisors Work Phone: aST [Catalytic activity/Vol]37 U/LHigh<32[facility] CenterBTIG Phone: bilirubin [Mass/Vol]mg/dLLow0.3 - 1.2 mg/dLDayton Va Medical CenterBTIG Phone: bilirubin, IndirectCANNOT BE CALCULATED0.00 - 1.00 mg/dLDayton Va Medical CenterBTIG Phone: bilitvyvj.indirect [Mass/Vol]mg/dL<0.31 mg/dLDayton Va Medical CenterBTIG Phone: Free PSA/Total PSA [Mass fraction]7.0 g/dL6.4 - 8.3 g/dLDayton Va Medical CenterBTIG Phone: GlobulinNOT REPORTED1.5 - 3.8 g/dLDayton Va Medical CenterBTIG Phone: Interpretation and review of laboratory results AbnormalDayton Va Medical CenterBTIG Phone: [facility] CenterBTIG Phone: laboratory - Chemistry and Chemistry - challenge Ordered By: Cisco Lopez on 15-63-5661EHC/1.73 sq M.predicted MDRD (S/P/Bld) [Vol rate/Area][employer] Phone: comment on above:Average GFR for 20-29 years old: 116 mL/min/1.73sq m Chronic Kidney Disease: <60 mL/min/1.73sq m Kidney failure: <15 mL/min/1.73sq m eGFR calculated using average adult body mass. Additional eGFR calculator available at: http://www.[employer].So Protect Me/multiple_crcl_2012.htm Stage 1: Some kidney damage normal GFR Stage 2: Mild kidney damage GFR 60-89 Stage 3: Moderate kidney damage GFR 30-59 Stage 4: Severe kidney damage GFR 15-29 Stage 5: Severe kidney damage GFR <15 ESRD - chronic treatment by dialysis or transplant Lipaseon 34-29-2007Jbmybo [Catalytic activity/Vol]40 U/XCddnqs93-63Vsehr Fort Lauderdale HospitalComment on above:Performed By: #### BMPX, LIP, LIVP, CDP #### [address] [place], [place] [id number] Switchboard Operator: Amna Clements MDLipaseOrdered By: Cisco Lopez on 68-00-5479Bduoko [Catalytic activity/Vol]40 U/L13 - 60 U/LMercy Health Work Phone: liver Profileon 47-52-5730Gukghbcos [Mass/Vol]mg/dLLow 0.3-1.2Mercy Fort Lauderdale HospitalComment on above:Performed By: #### BMPX, LIP, LIVP, CDP #### [address] [place], [place] 85[address]83 Switchboard Operator: Amna Clements MDBilirubin, IndirectCANNOT BE CALCULATEDNormal 0.00-1.00[facility] HospitalComment on above:Performed By: #### BMPX, LIP, LIVP, CDP #### [address] [place] [address] Switchboard Operator: Amna Clements MDAlbumin [Mass/Vol]3.7 g/dLNormal3.5-5.2MKettering Health Preble HospitalComment on above:Performed By: #### BMPX, LIP, LIVP, CDP #### [address] [place] [address] Switchboard Operator: Amna Clements MDAlbumin/Glob Ratio1.3Iizhcp0.0-2.5[facility] HospitalComment on above:Performed By: #### BMPX, LIP, LIVP, CDP #### [address] [place], [place] 5737383 Switchboard Operator: Amna Clements MDAlkaline Phos68 U/BYxevvo18-182Zxkuk Tiffin HospitalComment on above:Performed By: #### BMPX, LIP, LIVP, CDP #### [address] [place], [place] 6880483 Switchboard Operator: Amna Clements MDALT [Catalytic activity/Vol]36 U/LHigh5-33[facility] HospitalComment on above:Performed By: #### BMPX, LIP, LIVP, CDP #### [address] [place], [place] 9258883 Switchboard Operator: Amna Clements MDAST [Catalytic activity/Vol]37 U/LHigh<32MerSt. Mary's [facility]onton Campus HospitalComment on above:Performed By: #### BMPX, LIP, LIVP, CDP #### [address] [place], [place] 0983083 Switchboard Operator: Amna Clements MDBilirubin.indirect [Mass/Vol]mg/dLNormal<0.31MerSt. Mary's Medical Center, Ironton Campus HospitalComment on above:Performed By: #### BMPX, LIP, LIVP, CDP #### [address] [place], [place] 4636983 Switchboard Operator: Amna Clements MDProtein [Mass/Vol]7.0 g/dLNormal6.4-8.3Mercy Fort Lauderdale HospitalComment on above:Performed By: #### BMPX, LIP, LIVP, CDP #### [address] [place], [place] 4356383 Switchboard Operator: Amna Clements MDGlobulin FractionNOT REPORTEDNormal1.5-3.8MerSilver Hill HospitalComment on above:Performed By: #### BMPX, LIP, LIVP, CDP #### [address] [place], [place] 0152483 Switchboard Operator: GOYO Bauericroscopic UrinalysisOrdered By: Cisco Lopez on 04-14-2021-[facility] Work Phone: amorphous, UANOT REPORTEDNoneMeMetroHealth [facility] Work Phone: bacteria, UATRACEAbnormalNoneMercy Health Work Phone: casts UANOT REPORTED/LPFMercy Health Work Phone: crystals, UANOT REPORTEDNone /HPFMercy Health Work Phone: Npithelial Cells UA10 TO 20[facility] Work Phone: Interpretation and review of laboratory results AbnormalMercy Health Work Phone: Mucus, UATRACEAbnormalNoneMercy Health Work Phone: Other Observations UANOT REPORTEDNOT REQ.[facility] Work Phone: RBC, UA0 TO 2[facility] Work Phone: Eenal Epithelial, UANOT REPORTED0 /HPFMercy Health Work Phone: Trichomonas, UANOT REPORTEDNoneMercy Health Work Phone: WBC, UA0 TO 2[facility] Work Phone: Yeast, UANOT REPORTEDNoneMercy Health Work Phone: [facility] Work Phone: No Panel InformationOrdered By: Cisco Lopez on 47-15-8123[facility] Work Phone: UA w/Reflex Cultureon 60-34-5815Isiowouju, SemiQt,Ur NegativeNormalNEGMercy Fort Lauderdale HospitalComment on above:Performed By: #### CHERYLGP #### [employer] [address] [place] [address] Switchboard Operator: Bishop Brady, UrineNegativeNormalNEGMercy Fort Lauderdale HospitalComment on above:Performed By: #### CHERYLGP #### [facility] [employer] [address] [place] [address] Switchboard Operator: Missy Brady (U)NormalCLEARThe [facility] Comment on above:Performed By: #### CHERYLGP #### [address] [address] Switchboard Operator: AIDE Bradyolor (U)YELLOWNormalYELMerSilver Hill Hospital Comment on above:Performed By: #### CHERYLGP #### [address] [address] Switchboard Operator: Collin De La Fuente MDGlucose Ql (U)NegativeNormalNEGMerSilver Hill HospitalComment on above:Performed By: #### CHERYLGP #### [address] [address] Switchboard Operator: Collin De La Fuente MDKetones Ql (U)TRACEAbnormalNEGMerSilver Hill HospitalComment on above:Performed By: #### CHERYLGP #### [address] [address] Switchboard Operator: Collin De La Fuente MDLeukocyte esterase Test strip Ql (U)Negative NormalNEGThe Bellevue HospitalComment on above:Performed By: #### CHERYLGP #### [address] [address] Switchboard Operator: Collin De La Fuente MDNitrite,UrNegativeNormalNEGThe [facility] Comment on above:Performed By: #### CHERYLGP #### [address] [address] Switchboard Operator: Collin De La Fuente [facility],Ur5.4Mofbhe7.0-9.0[facility] Comment on above:Performed By: #### CHERYLGP #### [address] [address] Switchboard Operator: TINO Bradyrotein Ql (U)TRACEAbnormalNEGThe Bellevue HospitalComment on above:Performed By: #### SWCGP #### [facility] [address] [place] [address] Switchboard Operator: DEV Bradypec. [place],Ur>1.163Hpjb3.010-1.020Mercy [facility] Children'S HospitalComment on above:Performed By: #### SWCGP #### [facility] [address] [place] [address] Switchboard Operator: Collin De La Fuente MDUrobilinogen,UrNormalNormalNORMMerSt. Mary's Medical Center, [facility]onton Campus HospitalComment on above:Performed By: #### SWCGP #### [facility] [address] [place] [address] Switchboard Operator: Paul BradyNOT REPORTEDUK Healthcare Comment on above:Performed By: #### SWCGP #### [facility] [address] [place] [address] Switchboard Operator: Collin De La Fuente MDUrinalysis Reflex to CultureOrdered By: Cisco Lopez on 33-07-7600Cvzgdptjb UrineNegativeNEGATIVEMercy Health Work Phone: color, UAYELLOWYELLOWMercy Health Work Phone: Glucose, UrNegativeNEGATIVEMercy Health Work Phone: Interpretation and review of laboratory results AbnormalMercy Health Work Phone: Ketones Ql (U)TRACEAbnormalNEGATIVEMercy Health Work Phone: leukocyte esterase Test strip Ql (U)NegativeNEGATIVE [facility] Work Phone: Nitrite, UrineNegativeNEGATIVEMercy Health Work Phone: pH, UA5.5[facility] Work Phone: protein, UATRACEAbnormalNEGATIVEMercy Health Work Phone: specific [place], UA>1.030HighMercy Health Work Phone: Turbidity UACLEARCLEARReg[facility] Hospital [facility] Work Phone: Urinalysis CommentsNOT REPORTEDMer Health Work Phone: Urine HgbNegativeNEGATIVERegency Hospital [facility] Work Phone: Urobilinogen, UrineNormalNormalReg[facility] Work Phone: [facility] Work Phone: Urinalysis,Microon 04-14-2021-----NormalThe Bellevue HospitalComment on above:Performed By: #### STEPHANIE UA #### [facility] [address] [place], [place] [phone] Switchboard Operator: Gogo BauercteriaTRACEBarberton Citizens Hospital Comment on above:Performed By: #### STEPHANIE, UA #### [facility] [address] [place], [place] [address]83 Switchboard Operator: Amna Clements MDEpithelial cells LM Ql (Urine sed)10 TO 20Normal 0-25The [facility] HospitalComment on above:Performed By: #### STEPHANIE, UA #### [facility] [address] [place] [address] Switchboard Operator: Romie Bauerus StrandsTRACEBarberton Citizens HospitalComment on above:Performed By: #### STEPHANIE, UA #### [facility] [address] [place] [address] Switchboard Operator: Slim Bauer RBC's0 TO 1Fgnaiu7-6MdkswTriHealth Good Samaritan Hospital Comment on above:Performed By: #### STEPHANIE, UA #### [facility] [address] [place], [place] 567[address]83 Switchboard Operator: Amna Sturtz, MDUrine WBC's0 TO 0Cschiv1-0UspjxThe [facility] Hospital Comment on above:Performed By: #### UMICAO, UA #### [facility] [address] [place] [address] [place] [address] Switchboard Operator: Shira Bauer sediment LM Ql (Urine sed)NOT REPORTED NormalNONEMeFranklin County Memorial Hospital HospitalComment on above:Performed By: #### UMICAO, UA #### [facility] [address] [place] [address] Switchboard Operator: AIDE BauerastsNOT REPORTEDNormUniversity Hospitals [facility] Comment on above:Performed By: #### CAROLEICAO, UA #### [facility] [address] [place] [address] [place] [address] Switchboard Operator: AIDE Bauerrystals LM Nom (Urine sed)NOT REPORTEDNormalNONE [facility] HospitalComment on above:Performed By: #### UMICAO, UA #### [facility] [address] [place] [address] [place] [address] Switchboard Operator: Amna Clements MDEpithelial, RenalNOT TPSSRUPCWucxlj0Dqgbm Tiffin HospitalComment on above:Performed By: #### UMICAO, UA #### [facility] [address] [place] [address] [place] [address] Switchboard Operator: Amna Clements MDOther ObservationsNOT REPORTEDNormalNREQAcmc Healthcare System HospitalComment on above:Performed By: #### UMICAO, UA #### [facility] [address] [place] [address] [place] [address] Switchboard Operator: Amna Clements MDTrichomonasNOT REPORTEDNormalNONEMeFranklin County Memorial Hospital HospitalComment on above:Performed By: #### UMICAO, UA #### [facility] [address] [place] [address] [place] [place], [place] 1348383 Switchboard Operator: Hung BauerastNOT [facility] Comment on above:Performed By: #### STEPHANIE, #### [facility] [address] [place] [address] Switchboard Operator: Amna Clements MDD-Dimer Teston 98-55-9991N-Dimer Test0.44 mg/L FEU Normal0.00-0.59The [facility] HospitalComment on above:Result Comment: When combined with a low clinical [...] be more prevalent in patients with distal DVT.Performed By: #### SWC #### [facility] [address] [place] [address] Switchboard Operator: JOVANI Brady-Dimer, QuantitativeOrdered By: Lidia Núñez on 67-30-3833C-Dimer, Quant0.44[facility] Work Phone: comment on above: When combined with a low [...] in patients with distal DVT. Chlamydia/GC,DNA Ampon 22-42-5597Bsktprtmz ProbeNegativeNormwiNEGThe Bellevue HospitalCommclaren caro region on above:Result Comment: CHLAMYDIA TRACHOMATIS DNA not detected by nucleic acid [...] positive results by an alternative nucleic acid target.Performed By: #### SWCGP #### [employer] [address] [place] [address] Switchboard Operator: Андрей Braydhea ProbeNegativeNormalNEGPremier Health Miami Valley Hospital on above:Result Comment: NEISSERIA GONORRHOEAE DNA not detected by nucleic acid [...] positive results by an alternative nucleic acid target.Performed By: #### SWCGP #### [employer] [address] [place] [address] Switchboard Operator: AIDE Bradyult,Urineon 64-12-0487Igez,UrineSpecimen Description .CLEAN CATCH URINE Special Requests NOT REPORTED Culture NO SIGNIFICANT GROWTH Report Status FINAL 03/11/2021NoDayton VA Medical Center HospitalComment on above: Performed By: #### URC #### [address] [address] Switchboard Operator: Collin De La Fuente MD [address] [place] [address] Switchboard Operator: Amna Clements MDHCG, ,Urineon 09-20-7738Vzqx HCG ( test) Ql (U)PositiveAbnormalNEGAcmc Healthcare System HospitalComment on above: Result Comment: If HCG results do not concur with clinical observations, additional testing to confirm result is recommended. This test is not labeled for use as a tumor marker. [facility] has confirmed the use of plasma for this test. This has not been cleared or approved by the U.S. Food and Drug Administration. The FDA has determined that such clearance is not necessary.Performed By: #### SWCGP #### [address] [address] Switchboard Operator: Collin De La Fuente MDTrichomonas/Wet Prepon 23-26-8904Nqsftbjocbu/Wet PrepSpecimen Description .VAGINA Special Requests NOT REPORTED Direct Exam NO TRICHOMONAS SEEN NO YEAST OBSERVED RARE CLUE CELLS SEEN Report Status FINAL 03/10/2021NoDayton VA Medical Center HospitalComment on above: Performed By: #### WP #### [address] [place] [address] Switchboard Operator: Amna Clements MDUA w/Reflex Cultureon 76-84-0703Xjanwzoklub Acid,UrNegativeNormwiNEGAcmc Healthcare System HospitalComment on above:Performed By: #### SWCGP #### [address] [address] Switchboard Operator: Collin De La Fuente MDBilirubin, SemiQt,UrNegativeNormalNEGMercy Fort Lauderdale HospitalComment on above:Performed By: #### CHERYLGP #### [address] [address] Switchboard Operator: AIDE Bradyolor (U)YELLOWNormalYELMerSilver Hill Hospital Comment on above:Performed By: #### CHERYLGP #### [address] [address] Switchboard Operator: Collin De La Fuente MDGlucose Ql (U)NegativeNormalNEGMercy [facility] Children'S HospitalComment on above:Performed By: #### CHERYLGP #### [address] [address] Switchboard Operator: Collin De La Fuente MDHemoglobin, UrNegativeNormalNEGMercy [facility]'S HospitalComment on above:Performed By: #### CHERYLGP #### [address] [address] Switchboard Operator: Collin De La Fuente MDLeukocyte esterase Test strip Ql (U)LARGE AbnormalNEGMercy [facility] Children'S HospitalComment on above:Performed By: #### CHERYLGP #### [address] [address] Switchboard Operator: Collin De La Fuente MDNitrite,UrNegativeNormalNEGThe [facility] Hospital Comment on above:Performed By: #### CHERYLGP #### [address] [address] Switchboard Operator: TINO Brady,Ur7.9Wfvewk2.0-9.0MerSilver Hill Hospital Comment on above:Performed By: #### CHERYLGP #### [address] [address] Switchboard Operator: TINO Bradyrotein Ql (U)NegativeNormalNEGMercy Fort Lauderdale HospitalComment on above:Performed By: #### CHERYLGP #### [facility] [address] [place] [address] Switchboard Operator: Sagar Brady. [place],Ur1.777Hsaizc5.010-1.020Mercy [facility]uderdale HospitalComment on above:Performed By: #### IMELDACGP #### [facility] [address] [place] [address] Switchboard Operator: Collin De La Fuente MDTurbidityCLOUDYAbnormalCLEARMerSt. Mary's [facility] Campus HospitalComment on above:Performed By: #### SWCGP #### [facility] [address] [place] [address] Switchboard Operator: Noemy Bradybilino,UrNormalNormalNORMMercy Fort Lauderdale HospitalComment on above:Performed By: #### IMELDACGP #### [facility] [employer] [address] [place] [address] Switchboard Operator: AIDE BradyombaltazarNOT REPORTEDNormalThe [facility] Comment on above:Performed By: #### IMELDACGP #### [address] [address] Switchboard Operator: Collin De La Fuente MDUrinalysis,Microon 03-10-2021-----NormalMercy Fort Lauderdale HospitalComment on above:Performed By: #### SWCGP #### [facility] [address] [place] [address] Switchboard Operator: Shira Brady sediment LM Ql (Urine sed)1+Abnormal NONEMercy Fort Lauderdale HospitalComment on above:Performed By: #### SWCGP #### [address] [address] Switchboard Operator: Gogo Bradycteria3+AbnormalNONEMeSaint Mary's Hospital Comment on above:Performed By: #### IMELDACGP #### [facility] [employer] [address] [place] [address] Switchboard Operator: Collin De La Fuente MDEpithelial cells LM Ql (Urine sed)20 TO 50Normal 0-25Mercy [facility] Lauderdale HospitalComment on above:Performed By: #### SWCGP #### [facility] [address] [place] [address] Switchboard Operator: Slim Brady RBC'sNoneNormal0-2[facility] Comment on above:Performed By: #### SWCGP #### [facility] [address] [place] [address] Switchboard Operator: Slim Brady WBC's10 TO 82Nqwzku8-0Zyinl Fort Lauderdale HospitalComment on above:Performed By: #### SWCGP #### [facility] [address] [place] [address] Switchboard Operator: AIDE BradyastsNOT REPORTEDNormalMercy [facility]uderdale [facility] Comment on above:Performed By: #### SWCGP #### [facility] [address] [place] [address] Switchboard Operator: AIDE Bradyrystals LM Nom (Urine sed)NOT REPORTEDNormal NONEMercy Fort Lauderdale HospitalComment on above:Performed By: #### SWCGP #### [facility] [address] [place] [address] Switchboard Operator: Collin De La Fuente MDEpithelial, RenalNOT UCLGMYHTZmpohu5Gvraf Fort Lauderdale HospitalComment on above:Performed By: #### SWCGP #### [facility] [address] [place] [address] Switchboard Operator: GOYO Bradyucus StrandsNOT REPORTEDNormalNONEMercy Fort Lauderdale HospitalComment on above:Performed By: #### SWCGP #### [facility] [address] [place] [address] Switchboard Operator: Collin De La Fuente MDOther ObservationsNOT REPORTEDNormalNREQMercy Fort Lauderdale HospitalComment on above:Performed By: #### SWCGP #### [facility] [address] [place] [address] Switchboard Operator: Leni BradyhomonasNOT [facility] CenterComment on above:Performed By: #### SWCGP #### [facility] [address] [place] [address] Switchboard Operator: Dong Brady [facility] Comment on above:Performed By: #### SWCGP #### [facility] [address] [place] [address] Switchboard Operator: AIDE Bradyult,Urineon 33-17-8972Suuq,UrineSpecimen Description .CLEAN CATCH URINE Special Requests NOT REPORTED Culture NO SIGNIFICANT GROWTH Report Status FINAL 03/02/2021UK HealthcareComment on above: Performed By: #### URC #### [facility] [address] [place] [address] Switchboard Operator: Collin De La Fuente MD [address] [place] [address] Switchboard Operator: Amna Clements [facility] Trachomatis, External ResultOrdered By: Historical Provider on 03-01-2021. Trachomatis, External ResultNegativeDayton Va Medical Centercy Health Work Phone: comment on above:William Joel RN/confirmed with Igor Kinsey RN N. Gonorrhoeae, External ResultOrdered By: Historical Provider on 03-01-2021N. Gonorrhoeae, External ResultNegativeMercy Health Work Phone: comment on above:William Joel RN/confirmed with Igor Kinsey RN No Panel InformationOrdered By: Historical Provider on 21-17-1167[facility] Work Phone: Microscopic Urinalysison 22-03-5887Saqxwigsb, UANOT REPORTEDBanner Health Work Phone: bacteria, UANOT REPORTEDNoneMercy Health Work Phone: casts UANOT REPORTED/LPFMercy Health Work Phone: crystals, UANOT REPORTEDNone /HPFMercy Health Work Phone: epithelial Cells UA50 TO 100[facility] Work Phone: Mucus, UANOT REPORTEDNoneMercy Health Work Phone: Other Observations UANOT REPORTEDNOT REQ.[facility] Work Phone: rBC (U) [#/Vol]0 TO 2[facility] Work Phone: renal Epithelial, UANOT REPORTED0 /HPFMercy Health Work Phone: Trichomonas, UANOT REPORTEDNoneMercy Health Work Phone: WBC, UA20 TO 50[facility] Work Phone: Yeast, UANOT REPORTEDNoneMercy Health Work Phone: -[facility] [employer] Work Phone: Otheron 30-16-6871Ucvqry intrauterine with an estimated gestational age of 13 weeks and 1 day by current ultrasoundReg[facility] [place] [employer] Work Phone: edi, [facility] Incoming Radiant Results From [employer] - 02/28/2021 1:48 PM EDT EXAMINATION: TRANSABDOMINAL [...] posteriorly to the right. Pole: Single pole [place] Rump Length: 6.8 cm Heart Rate: 160 [...] weeks and 1 day by current ultrasound [employer] Phone: eXAMINATION: TRANSABDOMINAL FIRST TRIMESTER OBSTETRIC PELVIC ULTRASOUND WITH COLOR DOPPLER FLOW; ULTRASOUND OF THE SCROTUM/TESTICLES WITH COLOR DOPPLER FLOW EVALUATION 02/28/2021 TECHNIQUE: TRANSABDOMINAL PELVIC ULTRASOUND WITH COLOR DOPPLER FLOW COMPARISON: None HISTORY: ORDERING SYSTEM PROVIDED HISTORY: LLQ pain, h/o ovarian cysts, 14 weeks TECHNOLOGIST PROVIDED HISTORY: LLQ pain, h/o ovarian cysts, 14 weeks FINDINGS: Uterus: Uterus is unremarkable in appearance measuring 12.1x 9.6 x 8.7 cm Gestational Sac(s): Single normal appearing gestational sac. No evidence of subchorionic hemorrhage. Yolk Sac: Not present. Placenta is noted posteriorly to the right. Pole: Single pole [place] Rump Length: 6.8 cm Heart Rate: 160 [...] 6 days Estimated Due Date: 09/04/2021, 08/30/2021 [facility] Phone: US DUP ABD PEL RETRO SCROT LIMITEDon 37-79-5824LI DUP ABD PEL RETRO SCROT LIMITEDEXAMINATION: TRANSABDOMINAL FIRST TRIMESTER OBSTETRIC PELVIC ULTRASOUND WITH [...] posteriorly to the right. Pole: Single pole [place] Rump Length: 6.8 cm Heart Rate: 160 [...] Signed by: Mariano Min MD 02/28/21 Final resultNormalMercy [facility] Children'S HospitalUS OB LESS THAN 14 WEEKS SINGLE OR FIRST GESTATIONon 53-26-6975XE OB LESS THAN 14 WEEKS SINGLE OR [...] posteriorly to the right. Pole: Single pole [place] R[place] Length: 6.8 cm Heart Rate: 160 [...] Signed by: Mariano Min MD 02/28/21 Final resultNormUniversity Hospitals Samaritan Medical CenterUrinalysis, Routineon 02-28-2021 Acetoacetic Acid,UrNegativeNormalNEGMercy Fort Lauderdale HospitalComment on above: Performed By: #### YINKAO, UA #### [facility] [address] [place] [address] [place] [address] Switchboard Operator: Amna Clements MDBilirubin, SemiQt,UrNegativeNormalNEGMerSt. Mary's Medical Center, Ironton Campus HospitalComment on above:Performed By: #### YINKAO, UA #### [facility] [address] [place] [address] [place] [address] Switchboard Operator: AIDE Bauerolor (U)YELLOWTexas County Memorial HospitalalYSelect Medical Specialty Hospital [facility] Comment on above:Performed By: #### YINKAO, UA #### [facility] [address] [place] [address] Dr. [place], [place] [id number] Switchboard Operator: Amna Clements MDGlucose Ql (U)NegativeNormalNEGMerSilver Hill HospitalComment on above:Performed By: #### YINKAO, UA #### [facility] [address] [place] [address] [place] [address] Switchboard Operator: Amna Clements MDHemoglobin, UrNegativeNormalNEGThe Bellevue HospitalComment on above:Performed By: #### UMICAO, UA #### [facility] [address] [place] [address] [place] [address] Switchboard Operator: Amna Clements MDLeukocyte esterase Test strip Ql (U)MODERATE AbnormalNEGAcmc Healthcare System HospitalComment on above:Performed By: #### UMICAO, UA #### [facility] [address] [place] [address] Switchboard Operator: Jacklyn Bauerite,UrNegativeNormalPomerene Hospital Comment on above:Performed By: #### UMICAO, UA #### [facility] [address] [place] [address] Switchboard Operator: TINO Bauer,Ur7.8Jozhft9.0-9.0The Bellevue HospitalComment on above:Performed By: #### UMICAO, UA #### [facility] [address] [place] [address] [place] [address] Switchboard Operator: TINO Bauerrotein Ql (U)NegativeNormalNEGAcmc Healthcare System HospitalComment on above:Performed By: #### UMICAO, UA #### [facility] [address] [place] [address] [place] [address] Switchboard Operator: Sagar Bauer. [place],Ur1.442Hruqog0.010-1.020The Bellevue HospitalComment on above:Performed By: #### UMICAO, UA #### [facility] [address] [place] [address] [place] [address] Switchboard Operator: Ivy BaueridityCLEARNormalCLEARThe [facility]vue Hospital Comment on above:Performed By: #### UMICAO, UA #### [facility] [address] [place] [address] Switchboard Operator: Rolando Bauer,UrNormalNormalNORMThe Bellevue HospitalComment on above:Performed By: #### UMICAO, UA #### [facility] [address] [place], [place] 6887683 Switchboard Operator: Amna Clements MDCommentNOT REPORTEDNormUniversity Hospitals Samaritan Medical Center Comment on above:Performed By: #### BERNARDINO BROWN #### [facility] [address] [place] [address] Switchboard Operator: Amna Clements MDUrinalysis, reflex to microscopicon 02-28-2021 Bilirubin UrineNegativeNEGATIVEMercy Health Work Phone: color, UAYELLOWYELLOWMercy Health Work Phone: Glucose, UrNegativeNEGATIVEMercy Health Work Phone: Interpretation and review of laboratory results AbnormalMercy Health Work Phone: Ketones Ql (U)NegativeNEGATIVEMercy Health Work Phone: leukocyte esterase Test strip Ql (U)MODERATEAbnormal NEGATIVEMercy Health Work Phone: Nitrite, UrineNegativeNEGATIVEMercy Health Work Phone: pH, UA7.5[facility] Work Phone: protein (U) [Mass/Vol]NegativeNEGATIVEMercy Health Work Phone: specific [place], UA1.020[facility] Work Phone: Turbidity UACLEARCLEARMercy Health Work Phone: Urinalysis CommentsNOT REPORTEDMercy Health Work Phone: Urine HgbNegativeNEGATIVEMercy Health Work Phone: Urobilinogen, UrineNormalNormalMercy Health Work Phone: Urinalysis,Microon 02-28-2021-----NormalThe Bellevue HospitalComment on above:Performed By: #### BERNARDINO BROWN #### [facility] [address] [place] [address] Switchboard Operator: Amna Clements MDEpithelial cells LM Ql (Urine sed)50 TO 100Normal 0-25Mercy Fort Lauderdale HospitalComment on above:Performed By: #### CAROLEICAO, UA #### [facility] [address] [place] [address] [place] [address] Switchboard Operator: Slim Bauer RBC's0 TO 5Ukykzs0-9Iwfig [facility] Comment on above:Performed By: #### CAROLEICAO, UA #### [facility] [address] [place] [address] Switchboard Operator: Slim Bauer WBC's20 TO 62Vamhha4-9BwiabThe Bellevue Hospital Comment on above:Performed By: #### YINKAO, UA #### [address] [place], [place] 1545583 Switchboard Operator: Shira Bauer sediment LM Ql (Urine sed)NOT REPORTED NormalNONEMeSaint Mary's HospitalComment on above:Performed By: #### YINKAO, UA #### [address] [place] [address] Switchboard Operator: Amna Clements MDBacteriaNOT REPORTEDNormalNONEMeSaint Mary's HospitalComment on above:Performed By: #### YINKAO, UA #### [facility] [address] [place] [address] [place] [address] Switchboard Operator: AIDE BauerastsNOT REPORTEDNormalThe [facility] Hospital Comment on above:Performed By: #### CAROLEICAO, UA #### [facility] [address] [place] [address] Dr. [place], [place] 8[address]83 Switchboard Operator: AIDE Bauerrystals LM Nom (Urine sed)NOT REPORTEDNormalNONE The Bellevue HospitalComment on above:Performed By: #### CAROLEICAO, UA #### [facility] [address] [place] [address] [place] [address] Switchboard Operator: Amna Clements MDEpithelial, RenalNOT YHBIIJPJVhokfo4Gxndv Fort Lauderdale HospitalComment on above:Performed By: #### UMICAO, UA #### [facility] [address] [place] [address] [place] [address] Switchboard Operator: GOYO Bauerucus StrandsNOT REPORTEDNormalNONEMey Fort Lauderdale HospitalComment on above:Performed By: #### UMICAO, UA #### [facility] [address] [place] [address] [place] [address] Switchboard Operator: Amna Clements MDOther ObservationsNOT REPORTEDNormalNREQDayton Va Medical Centercy Fort [place]uderdale HospitalComment on above:Performed By: #### UMICAO, UA #### [facility] [address] [place] [address] [place] [address] Switchboard Operator: Amna Clements MDTrichomonasNOT REPORTEDNormalNONEMercy Fort Lauderdale HospitalComment on above:Performed By: #### UMICAO, UA #### [facility] [address] [place] [address] [place] [address] Switchboard Operator: Amna Clements MDYeastNOT REPORTEDNormalNONEMey [facility] Hospital Comment on above:Performed By: #### UMICAO, UA #### [facility] [address] [place] [address] Dr. [place], [place] 7913483 Switchboard Operator: Amna Clements MDABO, External ResultOrdered By: Historical Provider on 55-01-8368LZW, External ResultABMercy Health Work Phone: comment on above:William Joel RN/confirmed with Igor Kinsey RN HIV, External ResultOrdered By: Historical Provider on 56-01-1745OVL, External ResultNon-ReactiveMercy Health Work Phone: comment on above:William Joel RN/confirmed with Igor Kinsey RN Hepatitis B, External ResultOrdered By: Historical Provider on 68-22-1983Fxd B, External ResultNegativeMercy Health Work Phone: comment on above:William Joel RN/confirmed with Igor Kinsey RN Hepatitis C Antibody, External ResultOrdered By: Historical Provider on 67-03-0882Wliccdfll C Antibody, External ResultNegativeMercy Health Work Phone: comment on above:William Joel RN/confirmed with Igor Kinsey RN No Panel InformationOrdered By: Historical Provider on 39-78-3728[facility] Work Phone: rPR, External LabOrdered By: Historical Provider on 83-02-0315NHM, External ResultNon-ReactiveMercy Health Work Phone: comment on above:William Joel RN/confirmed with Igor Kinsey RN Rh Factor, External ResultOrdered By: Historical Provider on 19-23-9367Qp Factor, External ResultPositiveMercy Health Work Phone: comment on above:William Joel RN/confirmed with Igor Kinsey RN Rubella Titer, External ResultOrdered By: Historical Provider on 02-17-2021 Rubella Titer, External ResultimmuneMercy Health Work Phone: comuxbz on above:William Joel RN/confirmed with Igor Kinsey RN Vital Signs Date TimeVital SignValuePerforming PvomijhfdNohjnnrp25-21-2205 15:20-0400Body mass index (BMI) [Ratio]32.95 kg/d4Qrayo Fooooo Work Phone: MylaAR Bhuuisyugt39-00-4575 15:20-0400Body nqxafj47.11 kgCorey Fooooo Work Phone: [phone] Lpkkmnhnil02-09-1323 15:20-0400Diastolic blood ubmtpagw11 mm[Hg]adaffix Work Phone: MylaSaint Francis Medical CenterWruvdohzfc67-32-8952 15:20-0400Systolic blood mm[Hg]adaffix Work Phone: [facility] CenterVvcoarusmk56-65-2261 14:21-0400Body mass index (BMI) [Ratio]29.82 kg/v6Mymjb Leslie DO Work Phone: [facility] CenterBngszkxanr74-03-5972 14:21-0400Body .58 kgCorey Leslie DO Work Phone: [facility] CenterXtkwhtjeel27-51-8303 14:21-0400Diastolic blood igjgkzlx73 mm[Hg]Clyde Leslie DO Work Phone: [facility] CenterMblixvyicb03-76-1286 14:21-0400Systolic blood mm[Hg]Clydemalik Anando DO Work Phone: [facility] CenterFciiuastvk20-91-5824 15:20-0400Body mass index (BMI) [Ratio]29.85 kg/m2Quynh Vasquez PA Work Phone: [facility] CenterQhkhpxgfzr79-01-1710 15:20-0400Body .67 kgQuynh Vasquez PA Work Phone: [facility] CenterHlddujmcba71-84-9763 15:20-0400Diastolic blood xdalgsmn09 mm[Hg]Quynh Vasquez PA Work Phone: [facility] CenterXrvmobxzjo40-82-1806 15:20-0400Systolic blood makxfoca898 mm[Hg]Quynh Vasquez PA Work Phone: [facility] CenterIdcmchsvte38-07-9969 09:31-0500Body lighyc123.9 cmJamila Velez MD Work Phone: [facility] CenterKenyoklpeg10-67-8703 09:31-0500Body mass index (BMI) [Ratio]29.89 kg/m2Jamila Velez MD Work Phone: [facility] CenterPudmifxhzb77-70-5697 09:31-0500Body temperature 98.6 [degF]Jamila Velez MD Work Phone: [facility] CenterPbehdwilos76-05-2281 09:31-0500Body nsgbga39.76 kgJamila Velez MD Work Phone: [facility] CenterYbgmvpcghj07-13-6348 09:31-0500Diastolic blood hbmpetct31 mm[Hg]Jamila Velez MD Work Phone: [facility] CenterQugjqhgspv26-37-5510 09:31-0500Heart rate73 /min Jamila Velez MD Work Phone: [facility] CenterBcvnbrvjah72-33-0290 09:31-8780WpI9% (BldA) [Mass fraction]98 %Jamila Velez MD Work Phone: [facility] CenterZankkwhfvb36-98-8238 09:31-0500Systolic blood ddxadlss221 mm[Hg]Jamila Velez MD Work Phone: [facility] CenterQjqpgxsnmg00-70-6562 14:04-0500Body mass index (BMI) [Ratio]31.2 kg/i1Dxadz Leslie DO Work Phone: [facility] CenterCrwwjaloyz98-44-6727 14:04-0500Body hhdofs96.9 kg Clydemalik Anando DO Work Phone: [facility] CenterCitqtaytox08-83-2868 14:04-0500Diastolic blood qdvsoogu04 mm[Hg]Clydemalik Anando DO Work Phone: [facility] CenterJasogbbhqa39-30-1291 14:04-0500Systolic blood ibyreytc399 mm[Hg]Clyde Leslie DO Work Phone: [facility] CenterGgbsvgmscp21-49-0529 14:05-0500Body mass index (BMI) [Ratio]33.41 kg/m2Quynh WILDER Work Phone: [facility] CenterYktfuiefvj39-13-9392 14:05-0500Body laoaen21.2 kg Quynh WILDER Work Phone: [facility] CenterCmrbeoxave73-95-9646 14:05-0500Diastolic blood irajicim96 mm[Hg]Quynh WILDER Work Phone: [facility] CenterZvsvdsnqzp42-73-1150 14:05-0500Systolic blood rbgzdymd799 mm[Hg]Quynh WILDER Work Phone: [facility] CenterXmkfgnrphh25-88-7518 15:37-0500Body mass index (BMI) [Ratio]33.44 kg/m2Amy Christina PA Work Phone: [facility] CenterMlmbtpwhry91-14-0696 15:37-0500Body lufnsq62.29 kgAmy [place] PA Work Phone: [facility] CenterPjgqyscnjm65-57-2184 15:37-0500Diastolic blood ibbtfhol98 mm[Hg]Quynh [place] PA Work Phone: [facility] CenterQejvbcrbmp36-33-4910 15:37-0500Systolic blood mm[Hg]Quynh Vasquez PA Work Phone: 1(085)311-[facility] CenterGuxlstunug98-87-1354 15:37-0500Body mass index (BMI) [Ratio]33.33 kg/p4Obxua Leslie DO Work Phone: [facility] CenterTuhtrvhebw45-57-3084 15:37-0500Body ihqeak13.02 kgCorey Leslie DO Work Phone: [phone])025-[facility] CenterIdouyezwoo20-66-2656 15:37-0500Diastolic blood enhqtwlk99 mm[Hg]Clyde Leslie DO Work Phone: 1(112)462-[address] [place], [place] [address]Abqjjxaubd87-83-9067 15:37-0500Systolic blood hbjivvlh587 mm[Hg]Clyde Leslie DO Work Phone: 1(527)609-[address] [place], [place] [address]Vmbzssuczr00-92-6806 11:59-0500Body mass index (BMI) [Ratio]33.22 kg/m2Amy Crhistina PA Work Phone: [facility] CenterRpizpthley50-09-5953 11:59-0500Body .74 kgAmy Christina PA Work Phone: 1(099)597-[address] [place], [place] [address]Izffsaetxy95-78-7284 11:59-0500Diastolic blood dpfrbeui92 mm[Hg]Quynh Almonteey PA Work Phone: 1(821)580-[facility] CenterDgukrbevhi68-10-0633 11:59-0500Systolic blood eiktistv364 mm[Hg]Quynh Vasquez PA Work Phone: [facility] CenterHubaqdzxrm99-71-6639 15:57-0500Body mass index (BMI) [Ratio]32.33 kg/t4Vybxn Leslie DO Work Phone: 1(419)483-[address] [place], [place] [address]Bhallhebba45-96-3819 15:57-0500Body qplenb02.62 kgCorey Leslie DO Work Phone: [facility] CenterAtlgyeqicg59-61-4617 15:57-0500Diastolic blood zhkutwth93 mm[Hg]Clyde Leslie DO Work Phone: [facility] CenterYkpjznpgbt91-92-8342 15:57-0500Systolic blood gqqfnmbi389 mm[Hg]Clyde Leslie DO Work Phone: [facility] CenterSocdajkmpk10-50-2519 15:02-0500Body mass index (BMI) [Ratio]32.31 kg/m2Amy [place] PA Work Phone: [facility] CenterIrrgwmohjy34-73-0451 15:02-0500Body ynisqp15.56 kgAmy [place] PA Work Phone: [facility] CenterUsyhvjogzk37-55-7879 15:02-0500Diastolic blood wrsersml24 mm[Hg]Quynh Vasquez PA Work Phone: [facility] CenterAjogwpdewv68-18-3273 15:02-0500Systolic blood pqdishgt110 mm[Hg]Quynh Christina PA Work Phone: [facility] CenterQduhfzdxiw67-26-8688 15:16-0500Body mass index (BMI) [Ratio]31.93 kg/m2Amy Christina PA Work Phone: [facility] CenterEtwmewzuoh66-29-4851 15:16-0500Body wplejk55.66 kgAmy [place] PA Work Phone: [place] [address]Gaadrzziah14-39-5557 15:16-0500Diastolic blood zmberulf61 mm[Hg]Quynh Christina PA Work Phone: [place] [address]Zbsccckjvk42-14-3484 15:16-0500Systolic blood ruhnvssk127 mm[Hg]Quynh Vasquez PA Work Phone: [facility] CenterDuownfvncc33-16-9858 16:03-0400Body ynmkuq708.9 cmJamila Velez MD Work Phone: [facility] CenterOxgtdmqmqv87-25-6485 16:03-0400Body mass index (BMI) [Ratio]29.48 kg/m2Jamila Velez MD Work Phone: [place] [address]Raispalsbk35-14-3385 16:03-0400Body axwsyx82.76 kgJamila Velez MD Work Phone: [place] [address]Hhcnkbjdjl59-15-6174 16:03-0400Diastolic blood mbaauiiz41 mm[Hg]Jamila Velez MD Work Phone: [place] [address]Jfamenlbbc81-35-5710 16:03-0400Heart uaqt438 /min Jamila Velez MD Work Phone: [place] [address]Zadoiugeaw35-94-9607 16:03-0400Respiratory rate18 /minJamila Velez MD Work Phone: [place] [address]Spfhidgual33-60-2015 16:03-5109PtT0% (BldA) [Mass fraction]99 %Jamila Velez MD Work Phone: [facility] CenterFnmwgpxwhe95-91-7127 16:03-0400Systolic blood kelkbtnp023 mm[Hg]Jamila Velez MD Work Phone: [place] [address]Wuouxnopmf30-52-8030 13:50-0400Body mass index (BMI) [Ratio]29.29 kg/d2Yufnb Leslie DO Work Phone: [place] [address]Vzbvjbjxfm29-24-9723 13:50-0400Body pmneco91.31 kgCorey Leslie DO Work Phone: [facility] CenterZwldekxsvu07-57-6428 13:50-0400Diastolic blood chnuropq65 mm[Hg]Clyde Leslie DO Work Phone: [place] [address]Pqejrfofkf67-23-7955 13:50-0400Systolic blood mm[Hg]Clyde Leslie DO Work Phone: [facility] CenterQehtjbvxns82-96-9165 23:58-0400Diastolic blood mm[Hg]Richar Obrien SALES ASSISTANT DISPLAYS - CNM Work Phone: [facility] Work Phone: 1(435) 553-167407-22-2021 23:58-0400Heart rate91 /Amrit Obrien SALES ASSISTANT DISPLAYS - CNM Work Phone: [facility] Work Phone: 1(561) 484-238707-22-2021 23:58-0400Respiratory rate16 /Amrit Obrien SALES ASSISTANT DISPLAYS - CNM Work Phone: [facility] Work Phone: 1(218) 669-854607-22-2021 23:58-0400Systolic blood zpkhgjyr052 mm[Hg] Richar Obrien SALES ASSISTANT DISPLAYS - CNM Work Phone: [facility] [place] [employer] Work Phone: 1(936) 982-692007-22-2021 20:33-0400Body ayyluczlemr94.7 [degF]Richar Obrien SALES ASSISTANT DISPLAYS - CNM Work Phone: [facility] Work Phone: 1(510) 260-147306-29-2021 23:40-0400Body vgbfyvglytp02.9 [degF] Rema Pool SALES ASSISTANT DISPLAYS - CNM Work Phone: [facility] [place] [employer] Work Phone: 1(532) 150-257006-29-2021 23:40-0400Respiratory rate20 /minKathleen Pool SALES ASSISTANT DISPLAYS - CNM Work Phone: [facility] [place] [employer] Work Phone: 1(829) 995-781006-29-2021 23:32-0400Diastolic blood mm[Hg] Rema Pool SALES ASSISTANT DISPLAYS - CNM Work Phone: [facility] Work Phone: 1(167) 378-122506-29-2021 23:32-0400Heart tqaj674 /minKathleen Pool SALES ASSISTANT DISPLAYS - CNM Work Phone: [facility] [place] [employer] Work Phone: 1(560) 174-496306-29-2021 23:32-0400Systolic blood ndkhhtco386 mm[Hg] Rema Pool SALES ASSISTANT DISPLAYS - CNM Work Phone: [facility] [place] [employer] Work Phone: 1(638) 627-670306-23-2021 08:59-0400Diastolic blood lmvgjpon29 mm[Hg] Richar Gonzalez CNYinka Work Phone: [facility] [place] [employer] Work Phone: 1(177) 113-322106-23-2021 08:59-0400Heart wqyt213 /Amrit Gonzalez CNYinka Work Phone: [facility] [place] [employer] Work Phone: 1(660) 475-110806-23-2021 08:59-0400Systolic blood cesntpro477 mm[Hg] Richar Obrien APRN - CNM Work Phone: [facility] [place] [employer] Work Phone: 1(996) 960-636006-23-2021 06:45-0400Body .9 cmSara Gonzalez CNYinka Work Phone: [facility] [place] [employer] Work Phone: 1(981) 207-855406-23-2021 06:45-0400Body mass index (BMI) [Ratio] 29.29 kg/o4CvmfxRichar Gonzalez CNM Work Phone: [facility] [place] [employer] Work Phone: 1(168) 561-598706-23-2021 06:45-0400Body kecebl05.31 kgRichar Gonzalez CNYinka Work Phone: [facility] [place] [employer] Work Phone: 1(667) 635-816106-23-2021 06:41-0400Body xlzrgpqockt57.4 [degF]Richar Gonzalez CNM Work Phone: [facility] [employer] Work Phone: 1(771) 366-846306-23-2021 06:41-0400Respiratory rate20 /Amrit Gonzalez CNYinka Work Phone: [facility] [place] [employer] Work Phone: 1(510) 434-787905-20-2021 03:30-0400Diastolic blood vzmkerob79 mm[Hg] [employer] Work Phone: [facility] [place] [employer] Work Phone: 1(895) 282-869505-20-2021 03:30-9145CpP6% (BldA) [Mass fraction]100 % Cisco Andes DO Work Phone: [facility] Work Phone: 1(350) 199-475005-20-2021 03:30-0400Systolic blood forzrwih182 mm[Hg] Cisco Andes DO Work Phone: [facility] Work Phone: 1(447)605-198961-44856116-53-1868 01:57-0400Heart fkqg190 /minJustin Andes DO Work Phone: [facility] Work Phone: 1(836)922-172471-10923496-70-5727 01:35-0400Respiratory rate16 /minJustin Andes DO Work Phone: [facility] [place] [employer] Work Phone: 1(402) 868-512805-20-2021 01:33-0400Body tqkyvqoqrrp01.7 [degF]Cisco Andes DO Work Phone: [facility] [place] [employer] Work Phone: 1(762) 515-131204-28-2021 21:13-0400Body zlcerikhdos50.59 [degF]Lidia Núñez MD Work Phone: [facility] [place] [employer] Work Phone: 1(585) 859-242804-28-2021 21:13-0400Diastolic blood xaereuys79 mm[Hg] Lidia Núñez MD Work Phone: [facility] [place] [employer] Work Phone: 1(443)025-024298-20789965-47-8745 21:13-0400Heart rate98 /Sivakumar Núñez MD Work Phone: [facility] [place] [employer] Work Phone: 1(717)738-344254-77434844-45-5843 21:13-0400Respiratory rate16 /Sivakumar Núñez MD Work Phone: [facility] [place] [employer] Work Phone: 1(488) 692-674604-28-2021 21:13-1296ElB8% (BldA) [Mass fraction]98 % Lidia Núñez MD Work Phone: [facility] [place] [employer] Work Phone: 1(828) 341-263004-28-2021 21:13-0400Systolic blood vyiqthkt616 mm[Hg] Lidia Núñez MD Work Phone: [facility] [place] [employer] Work Phone: 1(401) 463-457204-05-2021 12:28-0Body Ulsepyvwhqs51.81 [degF] [facility] [place] [employer] Work Phone: 1(428) 834-226704-05-2021 12:28-0400BP Slgyrmqtp24 mm[Hg][facility] [place] [employer] Work Phone: 1(783) 397-865904-05-2021 12:28-0400BP Sejmrimc394 mm[Hg][facility] [place] [employer] Work Phone: 1(349) 954-415204-05-2021 12:28-0400Pulse (Heart Rate)97 /minNorthern [facility] [place] [employer] Work Phone: 1(448) 179-989604-05-2021 12:28-0400Pulse Sncijpvf831 %[facility] [place] [employer] Work Phone: 1(980) 983-877804-05-2021 12:28-0400Respiratory Rate15 /minNorthern [facility] [place] Phone: Encounters Encounter DateEncounter [facility] ProviderFacilityStart: 09-22-2025 End: 43-42-4916Yrlahy outpatient visit 15 minutesCorey Fooooo Work Phone: [facility] OBGYNComment on above:Missed menses; PCOS (polycystic ovarian syndrome)Start: 09-22-2025 End: 94-78-0016Dcfsns flowsheetCorey Leslie DO Work Phone: [facility] [place] OBGYNStart: 09-22-2025 End: 37-77-0377Czryvm flowsheetCorey Leslie DO Work Phone: [facility] Harris OBGYNStart: 03-12-2025 End: 33-57-7353Cwxlnzklp encounterJamila Velez MD Work Phone: NOFP FNR FMComment on above:Iron deficiency anemia due to chronic blood loss (Primary Dx)Start: 02-16-2025 End: 53-21-0824viqjpbnnlpXLEYI FAZIONot AvailableStart: 02-16-2025 End: 19-00-3902Itusxu outpatient visit 15 minutesCorey Leslie DO Work Phone: noms BCP OBComment on above:6 weeks follow-upStart: 02-03-2025 End: 41-73-1143efceeketbrAAL CHRISTINANot AvailableStart: 02-03-2025 End: 46-25-3020Rikkux follow up visit related to original Malik Christina PA Work Phone: NOVR BCP OBComment on above:Postoperative follow-up (Primary Dx)Start: 02-03-2025 End: 86-98-1793Sdpknm aprilQuynh Vasquez PA Work Phone: noms BCP OBStart: 02-03-2025 End: 42-56-2893Onvqyt chrystalPeña WILDER Work Phone: NOXW BCP OBStart: 01-30-2025 End: 78-62-0061ejajxqdjnfZSQN F BOWERNot AvailableStart: 01-24-2025 End: 34-75-9828Utlhyi Sandra Velez MD Work Phone: noms FNR FMStart: 01-24-2025 End: 88-85-3631Wefawm Sandra Velez MD Work Phone: noms FNR FMStart: 01-24-2025 End: 69-74-6364btfemjzepmIQFU F BOWERNot AvailableStart: 01-24-2025 End: 00-85-0296Alkikz outpatient visit 15 minutesJamila Velez MD Work Phone: noms FNR FMComment on above:Acute bronchitis, unspecified organism (Primary Dx)Start: 01-12-2025 End: 30-82-9211Stomvw follow up visit related to original pxCorey Leslie DO Work Phone: NOTA BCP OBComment on above:Postoperative follow-up Start: 01-12-2025 End: 75-21-9774anqvsptnbnODDSY FAZIONot AvailableStart: 01-07-2025 End: 79-11-9246Jxsbxmfxv Result EncounterCorey Leslie DO Work Phone: noms External Department UnsolicitedStart: 01-07-2025 End: 73-64-8413Fadhfworc Result EncounterCorey Leslie DO Work Phone: noms External Department UnsolicitedStart: 01-06-2025 End: 05-32-2068Guojcihmf Result EncounterCorey Leslie DO Work Phone: noms External Department UnsolicitedStart: 01-06-2025 End: 13-47-3768Gkhajibsr Result EncounterCorey Leslie DO Work Phone: noms External Department UnsolicitedStart: 01-06-2025 End: 83-91-1279btvsbdkkxiLHO RAMEYNot AvailableStart: 01-05-2025 End: 79-89-9286cfrkrajrvnHAA RAMEYNot AvailableStart: 01-05-2025 End: 84-76-5815Lmdnwt outpatient visit 15 minutesAmy Christina WILDER Work Phone: noms BCP OBComment on above:Third trimester ; 37 weeks gestation of ; Antepartum premature rupture of membraneStart: 12-31-2024 End: 64-82-8656jejkoqmlgtJUR RAMEYNot AvailableStart: 12-31-2024 End: 40-54-5114Tlvnht outpatient visit 15 minutesAmy Christina WILDER Work Phone: NO BCP OBComment on above:Third trimester ; 36 weeks gestation of pregnancyStart: 12-24-2024 End: 77-29-5020wvyrbndzijBAPTV FAZIONot AvailableStart: 12-24-2024 End: 15-97-3552Tpbtgl outpatient visit 15 minutesCorey Leslie DO Work Phone: NOYA BCP OBComment on above:Third trimester ; 35 weeks gestation of ; STD exposureStart: 12-24-2024 End: 04-44-8570Zpakgc flowsheetCorey Leslie DO Work Phone: NOMS BCP OBStart: 12-24-2024 End: 28-46-1432Rfurpj flowsheetCorey Leslie DO Work Phone: NOMS BCP OBStart: 12-24-2024 End: 29-78-5934Qyuuodnil Result EncounterCorey Leslie DO Work Phone: NOMS External Department UnsolicitedStart: 12-18-2024 End: 98-31-0221Cwsqzg Bruce WILDER Work Phone: NOMS BCP OBStart: 12-18-2024 End: 64-95-3171Wlgjag Bruce WILDER Work Phone: NOMS BCP OBStart: 12-18-2024 End: 68-05-8106Usmftjesc Result EncounterCorey Leslie DO Work Phone: NOMS External Department UnsolicitedStart: 12-18-2024 End: 48-85-4076jjpubyolyfZKR Frida AvailableStart: 12-18-2024 End: 98-69-5654Wjooqb outpatient visit 15 minutesAmy Christina WILDER Work Phone: NOMS BCP OBComment on above:Third trimester ; 35 weeks gestation of ; PruritusStart: 12-17-2024 End: 59-64-9671Qxvikpmya Result EncounterCorey Leslie DO Work Phone: NOMS External Department UnsolicitedStart: 12-17-2024 End: 44-51-1358Srfpiztxv Result EncounterCorey Leslie DO Work Phone: NOMS External Department UnsolicitedStart: 12-01-2024 End: 94-08-5942Sjhcsq outpatient visit 15 minutesCorey Leslie DO Work Phone: NOMS BCP OBComment on above:32 weeks gestation of ; Third trimester ; Constipation during in third trimesterStart: 12-01-2024 End: 29-85-1504xamjkoagmmNGGNH FAZIONot AvailableStart: 12-01-2024 End: 29-96-5157Oiansc flowsheetCorey Leslie DO Work Phone: NOMS BCP OBStart: 12-01-2024 End: 48-27-4391Dcxogr flowsheetCorey Leslie DO Work Phone: NOMS BCP OBStart: 11-12-2024 End: 81-13-0035Ntxpdi outpatient visit 15 minutesAmy Christina WILDER Work Phone: NOMS BCP OBComment on above:Third trimester ; 29 weeks gestation of ; Anemia during in third trimester; Excessive growth affecting management of in third trimester, single or unspecified fetusStart: 11-12-2024 End: 25-10-9756evvkwkqxhhGFO RAMEYNot AvailableStart: 11-12-2024 End: 10-66-1681Bioata Bruce WILDER Work Phone: NOMS BCP OBStart: 11-12-2024 End: 92-27-3927Ykngew flowsheetQuynh WILDER Work Phone: NOMS BCP OBStart: 11-12-2024 End: 96-49-9946Ozeqwxjuu Result EncounterQuynh WILDER Work Phone: NOMS External Department UnsolicitedStart: 11-11-2024 End: 31-66-1601Ondipxeym Result EncounterCorey Leslie DO Work Phone: NOMS External Department UnsolicitedStart: 11-11-2024 End: 52-28-0854Bphjohpzp Result EncounterCorey Leslie DO Work Phone: NOMS External Department UnsolicitedStart: 10-15-2024 End: 52-98-4234Wjgtah outpatient visit 15 minutesAmy Christina WILDER Work Phone: NOMS BCP OBComment on above:Second trimester ; 25 weeks gestation of ; Diabetes mellitus screeningStart: 10-15-2024 End: 94-92-6137lyipmibfokNFK RAMEYNot AvailableStart: 10-15-2024 End: 26-78-0375Wgpikc flowsPeña WILDER Work Phone: NOMS BCP OBStart: 10-15-2024 End: 93-10-3509Jgurif flowsPeña WILDER Work Phone: NOMS BCP OBStart: 10-15-2024 End: 15-47-4479Irbsfrrrb Result EncounterQuynh WILDER Work Phone: NOMS External Department UnsolicitedStart: 08-18-2024 End: 12-35-4754Bewcdcorb Result EncounterCorey Leslie DO Work Phone: NOMS External Department UnsolicitedStart: 08-18-2024 End: 77-63-9732Kjnygetfz Result EncounterCorey Leslie DO Work Phone: NOUC External Department UnsolicitedStart: 08-13-2024 End: 43-50-7476oxrzkknzuxWITL F BOWERNot AvailableStart: 08-13-2024 End: 02-43-7759Cgrduj outpatient visit 15 minutesJamila Velez MD Work Phone: NOMS FNR FMComment on above:Acute non-recurrent maxillary sinusitis (Primary Dx)Start: 08-13-2024 End: 68-15-5376Ttjkdv Sandra Velez MD Work Phone: NOMS FNR FMStart: 08-13-2024 End: 81-59-1332Chmjqt Sandra Velez MD Work Phone: NOMS FNR FMStart: 08-12-2024 End: 28-63-8047Wgzzaoykf encounterJamila Velez MD Work Phone: NOMS FNR FMStart: 07-21-2024 End: 19-63-5429Zbbncl flowsheetCorey Leslie DO Work Phone: NOMS BCP OBStart: 07-21-2024 End: 91-34-8939Psyvju flowsheetCorey Leslie DO Work Phone: NOMS BCP OBStart: 07-21-2024 End: 52-17-1382hezcbwlsntIVNVP FAZIONot AvailableStart: 07-21-2024 End: 36-59-1288Jfiuzr outpatient visit 15 minutesCoremalik Nelson DO Work Phone: NOCB BCP OBComment on above:Second trimester ; Encounter for anatomic survey; Need for maternal serum alpha-protein (MSAFP) screeningStart: 06-19-2024 End: 49-94-8016ffxtgfbpicIFG RAMEYNot AvailableStart: 05-06-2024 End: 92-28-0945koizmgpvanUAECU FAZIONot AvailableStart: 03-20-2024 End: 94-64-4299znrrndqlahWAKGA FAZIONot AvailableStart: 04-16-2023 End: 06-73-1627hvldobcqqfFC NONE LISTED REQUESTFacility:Q8Yiysn: 04-16-2023 End: 55-24-1284qzugnyoejhMG NONE LISTED REQUESTFacility:Y6Xnawy: 04-13-2023 End: 52-73-1929hdqpovgyumTP KALPANA TAPIA .Facility:F6Zhwfm: 04-06-2023 End: 80-80-0756whhvvhslboEL CLYDE NELSON .Facility:N5Djopz: 19-14-3152ymwvyszhmn DR NONE LISTED REQUESTFacility:C5Doylt: 85-89-6960ydwnvemensSB NONE LISTED REQUESTFacility:Z7Kgrub: 10-13-2022 End: 77-89-2246uuntrtdkqxLE AMNA VALLADARESFacility:S7Imgjk: 10-09-2022 End: 00-98-7561dhbpvzafulQM DOCTOR MISCFacility:U2Snnpy: 09-14-2022 End: 03-28-4088nhjvledagdYR MECHE MARKER .Facility:J9Kphld: 07-07-2022 End: 51-39-8010isclcvugauFX DOCTOR MISCFacility:P2Ceqis: 07-04-2022 End: 69-30-7578fvafqswmkzHR DOCTOR MISCFacility:W4Wwamy: 07-04-2022 End: 55-04-5336fmtoskltocXN DOCTOR MISCFacility:J9Wgvpy: 06-16-2021 End: 75-08-4730xcvbwghkxuKGZYP [facility]HELLE SMITHAcmc [facility] System HospitalStart: 06-16-2021 End: 98-20-6125Mkmlzjdnlh hospital visit by Bo Obrien SALES ASSISTANT DISPLAYS - CNM Work Phone: mthz Labor and DeliveryStart: 05-25-2021 End: 73-55-4842ubrvjlcnzsRBDRQCBC Jordan JULIAAcmc Healthcare System HospitalStart: 05-24-2021 End: 42-44-1863Mrdoxcmvts hospital visit by Dwight Tapia SALES ASSISTANT DISPLAYS - CNM Work Phone: mthz Labor and DeliveryStart: 05-18-2021 End: 90-83-1727rclnjphrjsDECVM RUSSELL JADONAcmc Healthcare System HospitalStart: 05-18-2021 End: 56-80-1233Khbquthocm hospital visit by Bo Obrien SALES ASSISTANT DISPLAYS - CNM Work Phone: mthz Labor and DeliveryStart: 04-14-2021 End: 98-70-4516Rbivbsinc department patient visitJUUNM [facility] ANDC[facility] HospitalStart: 04-14-2021 End: 11-05-6903Eqtjgtngf department patient visitJuHomberg Memorial Infirmary Work Phone: [facility] EDComment on above:Nausea and vomiting during (Primary Dx)Start: 03-23-2021 End: 92-01-1800Meqixhxrw department patient visitSYED Wood [facility] HospitalStart: 03-23-2021 End: 97-73-3094Fwcpsnddx department patient visitSyed Wood Núñez MD Work Phone: [facility] EDComment on above:Leg swelling (Primary Dx)Start: 03-10-2021 End: 45-46-5042Wwxdochqp department patient visitNANETTE Simpson [facility] HospitalStart: 02-28-2021 End: 83-59-9251Paqtissrp department patient visitMELZORAN BLOODAcmc Healthcare System HospitalStart: 02-28-2021 End: 92-66-1833Awnnwdlzo department patient visitMelzoran Caitie Work Phone: [facility] EDComment on above:Abdominal pain, unspecified abdominal location (Primary Dx); Urinary tract infection without hematuria, site unspecified; Intrauterine Procedures DateProcedureProcedure DetailPerforming ClinicianStart: 59-61-2533Recph test visual color cmprsn methsCorey Leslie DO Work Phone: Start: 54-35-1962PCM CBC WITH AUTO DIFFCorey Leslie DO Work Phone: Start: 20-39-0440LIR CBC WITH AUTO DIFFCorey Leslie DO Work Phone: Start: 00-55-7670Dbkqt dip stick/tablet rgnt non-auto w/o micrscpAmy Christina WILDER Work Phone: Start: 86-20-2445Gqvcz dip stick/tablet rgnt non-auto w/o micrscpAmy Christina WILDER Work Phone: Start: 69-84-1542Qwoki dip stick/tablet rgnt non-auto w/o micrscpCorey Leslie DO Work Phone: Start: 00-68-5272VNE MISCELLANEOUS TESTCorey Leslie DO Work Phone: Start: 64-58-2788NJED LIVER PANELCorey Leslie DO Work Phone: Start: 66-23-5336LQO CBC WITH AUTO DIFFCorey Leslie DO Work Phone: Start: 83-64-8969Ampym dip stick/tablet rgnt non-auto w/o micrscpCorey Leslie DO Work Phone: Start: 07-56-6733TLZ FERRITINQuynh WILDER Work Phone: Start: 47-12-2905WKV CBC WITH AUTO DIFFCorey Leslie DO Work Phone: Start: 46-09-7223EDH CBC WITH AUTO DIFFAmy Christina WILDER Work Phone: Start: 25-46-4050Urjry dip stick/tablet rgnt non-auto w/o micrscpAmy Christina WILDER Work Phone: Start: 71-18-9987QFWZZZ COVID-19/Roya Velez MD Work Phone: Start: 78-39-8217YQD, SERUM, OPEN SPINA BIFIDACorey Leslie DO Work Phone: Start: 81-30-3282Mwksm dip stick/tablet rgnt non-auto w/o micrscpCorey Leslie DO Work Phone: Start: 18-35-5738Mcsdbozhxql observation [Identifier] in Cervix by Cyto stainCorey Leslie DO Work Phone: Start: 39-68-8125Tiobwdbbae microscopic onlySusan Russell Obrien SALES ASSISTANT DISPLAYS - CNM Work Phone: Start: 86-32-1791Aurey dip stick/tablet rgnt auto w/o microscopySusan Russell Obrien SALES ASSISTANT DISPLAYS - CNM Work Phone: Start: 22-84-2658Jeofo of lipaseJustin Andes DO Work Phone: Start: 83-35-2582DNEGS METABOLIC PANEL W/ REFLEX TO MG FOR LOW KJustin Andes DO Work Phone: Start: 81-28-4773Pltihms function panelJustin Andes DO Work Phone: Start: 34-44-9842Ggjwnwnnqr microscopic onlyJustin Andes DO Work Phone: Start: 26-80-5965Gvntc dip stick/tablet rgnt auto w/o microscopyJustin Andes DO Work Phone: Start: 84-19-0191Pblcfx dgradj products d-dimer quantitativeSyed Wood Núñez MD Work Phone: Start: 03-01-2021. TRACHOMATIS, EXTERNAL RESULT Historical Provider MDStart: 03-01-2021N. GONORRHOEAE, EXTERNAL RESULTHistorical Provider MDStart: 68-14-3260Tpo-scan artl cosmo abdl/pel/scrot&/rpr orgn lmt [facility] Work Phone: start: 09-67-1928Ct uterus 14 wk transabdl 11/26 gestatM[facility]he [facility] Work Phone: start: 27-22-4921Jslchjwkwe microscopic onlyM[facility] Work Phone: start: 27-95-7139Jkxnr dip stick/tablet rgnt auto w/o microscopyM[facility] Work Phone: start: 49-28-0252SPD, EXTERNAL RESULTHistorical Provider MDStart: 23-56-9393HKJVFFNDI B, EXTERNAL RESULTHistorical Provider Start: 20-89-6947BIVUEAJEE C ANTIBODY, EXTERNAL RESULTHistorical Provider Start: 20-67-1454ZCT, EXTERNAL RESULTHistorical Provider MDStart: 39-00-7090VA FACTOR, EXTERNAL RESULTHistorical Provider MDStart: 02-11-3434YNP, EXTERNAL RESULTHistorical Provider MDStart: 37-32-6451IYTDSUC TITER, EXTERNAL RESULT Historical Provider Plan of Treatment DateCare ActivityDetailAuthorStart: 08-69-6966Htlikushs for malignant neoplasm of cervixNOMS HealthcareStart: 10-27-2025 End: 46-36-8731Ykhrmyo encounter ciqflqxcp98/02/2025 1:40 PM EST Procedure Visit [facility] [address] [place] [address] Clyde Nelson, [address] [place], [place] [id number] SIMON YAPtart: 09-23-2025 End: 90-21-6062Zzltzquageui / ancillary services rdbypeqwxf58/29/2025 2:30 PM EDT Ancillary Procedure [facility] [address] [place] [address] SIMON Goldsmithue OBGYNStart: 09-22-2025 End: 68-76-3656MKLCCEHY Lab Routine Missed menses PCOS (polycystic ovarian syndrome) Expected: 09/22/2025 (Approximate), Expires: 09/22/2026[facility] Comment on above:Expected: 09/22/2025 (Approximate), Expires: 09/22/2026Start: 09-22-2025 End: 41-13-1443TI PelvisUS Pelvis w/ TV Imaging Routine Missed menses PCOS (polycystic ovarian syndrome) Expected: 09/22/2025, Expires: 09/22/2026[facility] HealthcareComment on above:Expected: 09/22/2025, Expires: 09/22/2026Start: 88-70-6668DTAJO-19 Vaccine ( season)COVID-19 Vaccine ( season)[facility] HealthcareStart: 90-56-3920Ztqxtqtun vaccinationTOOELE VALLEY HOSPITAL Healthcare Start: 06-22-2025 End: 97-81-1881Xpckhgv encounter nckkiferw11/28/2025 1:40 PM EDT Office Visit [facility] [address] [place] [address] Clyde Nelson, DO [address] [facility] [address] [place] [address] [facility] OBStart: 09-29-4919Ogfcxicrn vaccination Influenza Vaccine (#1)[facility]S HealthcareComment on above:Postponed from 07/27/2024 (Supply/Drug Shortage)Start: 03-12-2025 End: 76-29-7870UFI W Auto Differential panel - BloodCBC auto differential Lab Routine Iron deficiency anemia due to chronic blood loss Expected: 03/12/2025 (Approximate), Expires: 03/12/2026[facility] Work Phone: Comment on above:Expected: 03/12/2025 (Approximate), Expires: 03/12/2026Start: 02-16-2025 End: 01-38-7100bgccojlpfh54/24/2025 1:50 PM EDT Visit [facility] [address] [facility] [place] [phone] Clyde Nelson, DO [address] [place], [place] [phone] [facility] BCP OBStart: 01-15-2025 End: 29-31-5567Hpxuxwx encounter /20/2025 11:30 AM EST Routine [facility] [address] [facility] [place] [phone] Clyde Nelson, DO [address] [place], [place] [id number] [facility] BCP OBStart: 01-06-2025 End: 33-30-5197Zahylmpgvugq / ancillary services aymhlzyylb89/11/2025 11:00 AM EST Ancillary Procedure [facility] [address] [facility] [facility] [phone] [facility] BCP OBStart: 01-05-2025 End: 88-17-5538TT for pregnancyUS OB AMNIOTIC FLUID VOLUME Imaging Routine Antepartum premature rupture of membrane Expected: 01/05/2025 (Approximate), Expires: 01/05/2026[facility] Work Phone: comment on above:Expected: 01/05/2025 (Approximate), Expires: 01/05/2026Start: 12-31-2024 End: 16-23-2679Mbekgoy encounter /05/2025 2:50 PM EST Routine [facility] [address] [place] [address] Quynh Vasquez PA [address] [place], [place] [phone] NOMS BCP OBStart: 12-24-2024 End: 89-52-1781Widomxu encounter qyixzyxhq15/29/2025 3:10 PM EST Routine [facility] [place] [phone] Clyde Nelson DO [address] [facility] [address] [place], [place] [phone] [facility] BCP OBStart: 12-24-2024 End: 75-99-9766LVDRHJT, GROUP B STREP WITH SUSCEPTIBLITYCULTURE, GROUP B STREP WITH SUSCEPTIBLITY Lab Routine Third trimester Expected: 12/24/2024, Expires: 12/24/2025[facility] HealthcareComment on above:Expected: 12/24/2024, Expires: 12/24/2025Start: 12-18-2024 End: 52-21-4981Gvlh acids, totalBile acids, total Lab Routine Pruritus Expected: 12/18/2024 (Approximate), Expires: 12/18/2025[facility] HealthcareComment on above: Expected: 12/18/2024 (Approximate), Expires: 12/18/2025Start: 12-18-2024 End: 79-61-0238Tsgayvs function 2000 panel - Serum or PlasmaHepatic function panel Lab Routine Pruritus Expected: 12/18/2024 (Approximate), Expires: 12/18/2025[facility] Work Phone: comment on above:Expected: 12/18/2024 (Approximate), Expires: 12/18/2025Start: 12-18-2024 End: 50-82-1630Rbgxyor encounter dftygbhfx64/23/2025 11:00 AM EST Routine [facility] [address] [facility] [address] [phone] Quynh Vasquez PA [address] [facility] [place] [address] [facility]OMS BCP OBStart: 12-01-2024 End: 25-41-8437Rhsjugq encounter procedureNOMS BCP OBComment on above:Arrived Start: 12-01-2024 End: 94-85-1168Fcqjafqtwxgc / ancillary services kynsimqshc99/06/2025 3:00 PM EST Ancillary Procedure [facility] [address] [facility] [phone] NOMS BCP OBStart: 11-12-2024 End: 53-57-7568Mzargld encounter procedureNOMS BCP OBComment on above:Arrived Start: 11-12-2024 End: 50-42-4194Vyjnnpxdxzj [Mass/volume] in Serum or PlasmaTransferrin Lab Routine Anemia during in third trimester Expected: 11/12/2024 (Approximate), Expires: 11/12/2025[facility] HealthcareComment on above:Expected: 11/12/2024 (Approximate), Expires: 11/12/2025Start: 11-12-2024 End: 41-90-9385XX for pregnancyUS OB SCAN FOR GROWTH Imaging Routine Excessive growth affecting management of in third trimester, single or unspecified fetus Expected: 11/12/2024 (Approximate), Expires: 2024NOMS HealthcareComment on above:Expected: 11/12/2024 (Approximate), Expires: 11/12/2025Start: 11-05-2024 End: 65-35-8920Jvwjfni encounter afbnhgvhp29/11/2024 2:30 PM EST Routine [facility] [address] [facility] [place] [phone] Clyde Nelson DO [address] [facility] [address] [place] [address] [facility] BCP OBStart: 10-15-2024 End: 41-22-8250Ehwhuho encounter fnqhehbuc48/20/2024 2:30 PM EST Routine [facility] [address] [facility] [place] [address] Quynh Vasquez PA [address] [facility] [place] [address] [facility]rivedT[facility] BCP OBComment on above: ArrivedStart: 10-15-2024 End: 62-45-5146HUQ panel - Blood by Automated countCBC Lab Routine Diabetes mellitus screening Expected: 10/15/2024 (Approximate), Expires: 10/15/2025[facility] Work Phone: comment on above:Expected: 10/15/2024 (Approximate), Expires: 10/15/2025Start: 10-15-2024 End: 90-15-6434Ncvhcmrwrcu of glucose 1 hour after glucose challenge for glucose tolerance testGlucose tolerance, 1 hour Lab Routine Diabetes mellitus screening Expected: 10/15/2024 (Approximate), Expires: 10/15/2025N[facility]S HealthcareComment on above:Expected: 10/15/2024 (Approximate), Expires: 10/15/2025Start: 09-04-2024 End: 15-88-6435Etoxbxnduvcw / ancillary services zpqintiocj13/10/2024 11:00 AM EDT Ancillary Procedure [facility] OB [address] [place] [address] [address] [place], [place] [phone] [facility]Start: 17-89-9553Ddzhfsbvz vaccinationInfluenza Vaccine (#1)[facility] HealthcareStart: 07-21-2024 End: 82-61-9562Jpnif fetoprotein, maternalAlpha fetoprotein, maternal Lab Routine Need for maternal serum alpha-protein (MSAFP) screening Expected: 07/21/2024 (Approximate), Expires: 08/21/2024[facility] Work Phone: comment on above:Expected: 07/21/2024 (Approximate), Expires: 08/21/2024Start: 07-21-2024 End: 32-07-2547MV for pregnancyUS OB ANATOMY SINGLE W US OB CERVICAL LENGTH Imaging Routine Encounter for anatomic survey Expected: 07/21/2024 (Approximate), Expires: 07/21/2025[facility] HealthcareComment on above:Expected: 07/21/2024 (Approximate), Expires: 07/21/2025Start: 24-12-8499Frthiobgj for malignant neoplasm of cervixHPV/CotestNOMS HealthcareStart: 05-16-2023 DTaP/Tdap/Td vaccine (2 - Td or Tdap)DTaP/Tdap/Td vaccine (2 - Td or Tdap)[facility] Work Phone: start: 14-09-0821LOqO/Tdap/Td vaccine (2 - Td) DTaP/Tdap/Td vaccine (2 - Td)[employer] Phone: start: 25-07-7056EVvR/Tdap/Td Vaccines (3 - Td or Tdap)DTaP/Tdap/Td Vaccines (3 - Td or Tdap)[facility] HealthcareStart: 07-27-2021 Influenza vaccinationDayton Va Medical CenterBTIG Phone: start: 03-23-2021 End: 35-08-5490UD DUP LOWER EXTREMITY VENOUS BILATERALVL DUP LOWER EXTREMITY VENOUS BILATERAL Imaging Routine Leg swelling Expected: 03/23/2021, Expires: 03/23/2022[facility] CenterBT[facility] Phone: comment on above:Expected: 03/23/2021, Expires: 03/23/2022tart: 84-54-1115KJS Vaccines (1 - 3-dose SCDM series)HPV Vaccines (1 - 3-dose SCDM series)[facility]OM HealthcareStart: 26-49-6541Qzulrxrdt for malignant neoplasm of cervixCervical cancer screenDayton Va Medical CenterBTIG Phone: start: 03-12-1967Xduqolits B Vaccines (1 of 3 - 19+ 3- dose series)Hepatitis B Vaccines (1 of 3 - 19+ 3-dose series)[facility] Start: 21-94-1982Agiceiy of varicella vaccinationVaricella Vaccines (1 of 2 - 13+ 2-dose series)[facility] HealthcareStart: 29-58-3768VGY Vaccines (1 of 1 - Standard series)MMR Vaccines (1 of 1 - Standard series)[facility] HealthcareStart: 04-88-2188FQOVJ-19 Vaccine (1)COVID-19 Vaccine (1)[employer] Phone: start: 46-37-0215VNZ screeningHIV screenDayton Va Medical CenterBTIG Phone: start: 06-52-6579HEUBJ-19 Vaccine (1)COVID-19 Vaccine (1)[employer] Phone: start: 03-52-8312Vumfpgjsm vaccine (1 of 2 - 2-dose childhood series)Varicella vaccine (1 of 2 - 2-dose childhood series)[facility] Phone: start: 53-01-2860Zlvsyfcqm C screeningHepatitis C screenRegency Hospital [facility] [place] Phone: End: 76-54-7496Acroqbam identified in Urine by CultureUrine culture Microbiology Routine One Time for 1 Occurrences starting 05/18/2021 until 05/18/2021[facility] [place] Phone: comment on above:One Time for 1 Occurrences starting 05/18/2021 until 05/18/2021 End: 94-95-1848IGJ Auto DifferentialCBC Auto Differential Lab STAT One Time for 1 Occurrences starting 02/28/2021 until 02/28/2021[facility] [place] Phone: comyovo on above:One Time for 1 Occurrences starting 02/28/2021 until 02/28/2021BC W Auto Differential panel - BloodCBC and differential Lab Routine Missed menses PCOS (polycystic ovarian syndrome) Ordered: 09/22/2025[facility] HealthcareComment on above:Ordered: 09/22/2025HLAMYDIA TRACHOMATIS (GENITO/STI)CHLAMYDIA TRACHOMATIS (GENITO/STI) Lab Routine STD exposure Ordered: 12/24/2024[facility] HealthcareComment on above:Ordered: 12/24/2024 End: 21-82-2592Igglzlzabezpb Metabolic Panel w/ Reflex to MGComprehensive Metabolic Panel w/ Reflex to MG Lab STAT One Time for 1 Occurrences starting 02/28/2021 until 02/28/2021[facility] [place] Phone: comhwaz on above:One Time for 1 Occurrences starting 02/28/2021 until 02/28/2021 End: 41-13-9223Ynqjhpv, UrineCulture, Urine Microbiology Routine One Time for 1 Occurrences starting 02/28/2021 until 02/28/2021[facility] Phone: comment on above:One Time for 1 Occurrences starting 02/28/2021 until 02/28/20211203MMCJ-glafrpnYZBI-sejhxka Lab Routine Missed menses PCOS (polycystic ovarian syndrome) Ordered: 09/22/2025[facility] HealthcareComment on above:Ordered: 09/22/2025EstradiolEstradiol Lab Routine Missed menses Ordered: 09/22/2025[facility] HealthcareComment on above:Ordered: 09/22/2025Ferritin [Mass/volume] in Serum or PlasmaFerritin Lab Routine Anemia during in third trimester Ordered: 11/12/2024[facility] Healthcare Work Phone: comment on above:Ordered: 11/12/2024Follicle stimulating hormoneFollicle stimulating hormone Lab Routine Missed menses PCOS (polycystic ovarian syndrome) Ordered: 09/22/2025[facility] HealthcareComment on above:Ordered: 09/22/2025hCG, quantitative, pregnancyhCG, quantitative, Lab Routine Missed menses PCOS (polycystic ovarian syndrome) Ordered: 09/22/2025[facility] Healthcare Work Phone: comment on above:Ordered: 09/22/2025Hemoglobin A1c/Hemoglobin.total in BloodHemoglobin A1c Lab Routine Missed menses Ordered: 09/22/2025[facility] HealthcareComment on above:Ordered: 09/22/2025Luteinizing hormone Luteinizing hormone Lab Routine Missed menses PCOS (polycystic ovarian syndrome) Ordered: 09/22/2025[facility] HealthcareComment on above:Ordered: 09/22/2025Neisseria gonorrhoeae DNA [Presence] in Unspecified specimen by ARI with probe detection Neisseria gonorrhea DNA probe, direct Lab Routine STD exposure Ordered: 12/24/2024[facility] HealthcareComment on above:Ordered: 12/24/2024[facility] Work Phone: comment on above:As directed - RT (PRN) until discontinued starting 05/18/2021 directed - RT (PRN) until discontinued starting 05/24/2021 directed - RT (PRN) until discontinued starting 06/16/2021 ProgesteroneProgesterone Lab Routine Missed menses Ordered: 09/22/2025[facility] HealthcareComment on above:Ordered: 09/22/2025ProlactinProlactin Lab Routine Missed menses Ordered: 09/22/2025[facility] HealthcareComment on above:Ordered: 09/22/2025SURESWAB(R) ADVANCED VAGINITIS PLUS, TMASURESWAB(R) ADVANCED VAGINITIS PLUS, TMA Pathology and Cytology Routine STD exposure Ordered: 12/24/2024[facility] [employer] Work Phone: comment on above:Ordered: 12/24/2024 End: 13-21-0408ESSKLC Point of Care Testing Routine One Time for 1 Occurrences starting 05/18/2021 until 05/18/2021[facility] [place] [employer] Work Phone: comwtzo on above:One Time for 1 Occurrences starting 05/18/2021 until 05/18/2021 End: 66-95-4962VZTBPD Point of Care Testing Routine One Time for 1 Occurrences starting 05/24/2021 until 05/24/2021[facility] [employer] Phone: comdoxx on above:One Time for 1 Occurrences starting 05/24/2021 until 05/24/2021 End: 73-74-3053CUFNZT Point of Care Testing Routine One Time for 1 Occurrences starting 06/16/2021 until 06/16/2021[facility] [place] Phone: comlazs on above:One Time for 1 Occurrences starting 06/16/2021 until 06/16/2021Thyrotropin [Units/volume] in Serum or PlasmaTSH Lab Routine Missed menses PCOS (polycystic ovarian syndrome) Or[facility]: [facility]2025[facility]:Ordered: 09/22/2025Thyroxine (T4) free [Mass/volume] in Serum or PlasmaT4, free Lab Routine Missed menses PCOS (polycystic ovarian syndrome) Ordered: 09/22/2025[facility] DrivyComment on above:Ordered: 09/22/2025 Immunizations Immunization DateImmunizationNotesCare XftbjnxuGxwozdgn05-53-4637lkljqeagkl, tetanus toxoids and pertussis vaccineCorey [employer] Work Phone: [employer] Wrfidarhsa91-84-4771ovwkudq toxoid, reduced diphtheria toxoid, and acellular pertussis vaccine, adsorbedCorey Fooooo Work Phone: [facility] CenterIzthzlmotk79-64-0126kjukglcob virus vaccine, live, attenuated, for intranasal useCorey Leslie DO Work Phone: [facility] CenterEytxnodtxv81-70-0401exluezqkk virus vaccine, unspecified formulationCorey Leslie DO Work Phone: [facility] Payers DatePayer CategoryPayerPolicy ID2021[place]icaid[place] [id number] 2021-Present [address] [facility] [place] [id number] 2021Medicaid (Managed Care)[place] [employer] [id number] 2.1.551335.3.57[id number] 2..1.102437.3.57[id number] 2..1.172533.3.57[id number] 2..1.443805.3.57[id number] 2..1.964537.3.57[id number] 2.16.840.1.381440.3.57[id number] 2.16.840.1.770605.3.579.2.40016-51-9846Nnzummk2719809 2.16.840.1.868154.3.57[id number] 2.16.840.1.552050.3.57[id number] 2.16.840.1.893575.3.579.2.3[id number] 2.16.840.1.977201.3.579.2.07222-16-1398Khszvzj3174568 2.16.840.1.359053.3.579.2.57003-32-8319Autedxc7375295 2.16840.1.929398.3.579.2.51210-71-3733Uzkbnhv1978592 2.16.840.1.643028.3.579.2.90697-74-9179Hvsbdpe7494112 2.16.840.1.605297.3.579.2.93368-72-9407Pwathox6057849 2.16.840.1.834361.3.579.2.10871-65-6499Sbxpwms4805916 2.16.840.1.765666.3.579.2.55897-18-8671Xfffhze7951906 2.16.840.1.458505.3.579.2.20207-81-8710Cvmylzv0542182 2.16.840.1.932819.3.579.[id number] 2.16.840.1.584187.3.579.2.917240-60-3538Bmpekkk9034695 2.16.840.1.525063.3.579.2.500339-57-2261Jiggwiz5201739 2.16.840.1.345381.3.579.2.796008-70-6433Yrfszhw6880995 2.16.840.1.720812.3.579.2.788375-93-3168Qbvpesm9525534 2.16.840.1.968388.3.579.2.513883-22-8608Lhadnak9939470 2.16.840.1.844077.3.579.2.828965-40-9424Azgwjhi7719689 2.16840.1.444868.3.579.2.174109-29-7686Mkxeuxp9545047 2.840.1.595102.3.579.2.659042-71-1748Cwefnfz6519161 2.840.1.100167.3.579.2.477346-23-6733Nptoypb2970142 2.840.1.741752.3.579.2.529236-28-2235Ookfhgn4541803 2.840.1.183928.3.579.2.577509-00-4981Prlyytu9730808 2.840.1.979718.3.579.2.600112-87-3907Ccmxiuo8802891 2.16840.1.179372.3.579.2.519106-14-8991Arqqjno9280110 2.16840.1.568881.3.579.2.960483-94-4067Cqztydm4231218 2.16.840.1.455329.3.579.2.967249-64-1412Icymsiz9729824 2.16840.1.829750.3.579.2.405253-57-9115Lkmybrs3639043 2.16.840.1.755294.3.579.2.705785-35-5163Qhgjngq1314669 2.16.840.1.801064.3.579.2.294611-43-6820Okrfepq5491959 2.16.840.1.346796.3.579.2.902832-74-1904Usfh-fmi07610706345-81-6208Blioxng [id number] 1.2.840.440718.1.13.239.2.7.3.927515.315 Social History DateTypeDetailFacilityStart: 02-28-2021 End: 48-49-0041Xiqwqfp smoking status NHISNever smokerNOAR HealthcareStart: 02-28-2021 End: 25-11-5799Jweoiin use and exposureNever usedScanalytics Inc. Phone: start: 01-22-4586Jgb Assigned At BirthNot on critical access hospitalScanalytics Inc. Phone: exposure to SARS-CoV-2 (event)Not sureDayton Va Medical CenterBTIG Phone: start: 97-00-9880QtnveghyKahog Health Work Phone: start: 05-18-2021 End: 39-43-8896Bjjyffg intakeEx-drinker (finding)[employer] Phone: start: 08-13-2024 End: 99-40-6256Bozzoanji beverage intakeLifetime non-drinker (finding)[facility] HealthcareStart: 05-07-2024 End: 80-85-9736Okdubpf of Social functionNOMS HealthcareStart: 05-07-2024 End: 37-92-6971Kbifhq connection and isolation panelNOMS HealthcareDo you belong to any clubs or organizations such as yazidism groups, unions, fraternal or athletic groups, or school groups?NoNOMS HealthcareAre you now , , , , never or living with a partner?Living with partner [facility] HealthcareHow often to you have a drink containing alcohol?NeverNOMS HealthcareStart: 02-17-6423Dgb many standard drinks containing alcohol do you have on a typical day?Patient does not drinkNOMS HealthcareHow hard is it for you to pay for the very basics like food, housing, medical care, and heatingNot very hardNOMS HealthcareDo you feel stress - tense, restless, nervous, or anxious, or unable to sleep at night because yourmind is troubled all the time - these days [OSQ]Only a littleNOMS Healthcare(I/We) worried whether (my/our) food would run out before (I/we) got money to buy more.Never trueNOMS Healthcare Start: 82-09-3671Jvckbnt CommentCaffeine: noneNOMS Healthcare Goals DatePatient GoalDesired Activity/StatePersonal health goal Clinical Notes 03-23-2021 to 09-22-2025 Note Date & OpnrCaxgIwgqyyor40-34-5696 History of Present illness Narrative* Marixa Parra, OVER SHORT AND DAMAGE CLERK - 09/22/2025 2:50 PM EDT Reason for Appointment: Patient ID: Erika Reid is a 30 y.o. female who presents for missed cycles Patient presents today for Acute Visit. and Consult appointment. MEDICATIONS No current outpatient medications ALLERGIES Allergies Allergen Reactions Latex Hives, Swelling and Rash Red, swells PROBLEMS Active Ambulatory Problems Diagnosis Date Noted 29 weeks gestation of ([facility]) 05/08/2024 Abdominal trauma 05/08/2024 Anxiety about health 05/08/2024 Decreased movement affecting management of mother, antepartum ([facility]) 05/24/2021 Intermittent palpitations 05/08/2024 Missed period 05/08/2024 [...] nursing note reviewed. Exam conducted with a associate professor of musicology present. Vitals: Estimated body mass index is 32.95 kg/m as calculated from the following: Height as of 25: 5' 1 . Weight as of this [...] of: Clyde Nelson DO documented in this encounterSt. [facility] Medical CenterOageiuiokd05-55-1226 Telephone encounter Note* Telephone Encounter - Viola Britton - 03/12/2025 3:55 PM EDT Pt asking to have lab for iron drawn at [facility]. She believes her iron is low [facility] CenterWojfmevldk21-50-9036 Miscellaneous Notes* Telephone Encounter - Viola Britton - 03/12/2025 3:55 PM EDT Pt asking to have lab for iron drawn at [place]. She believes her iron is low documented in this [facility]03-24-2025 History of Present illness Narrative* Richar Oneill LPN - 02/16/2025 1:50 PM EDT Reason for Appointment: Patient ID: Erika Reid is a 30 y.o. female who presents for 5wk Post Patient presents today for Consult appointment. MEDICATIONS Current Outpatient Medications Medication Instructions docusate sodium (COLACE) 100 mg, Oral, 2 times daily PRN ALLERGIES Allergies Allergen Reactions Latex Hives, Swelling [...] illness Mother Nanette Reid Migraines Mother Nanette Rowecaleb Other (headache) Mother Nanette Reid Breast cancer Mother Nanette Rangelraji stage 2 Asthma Mother Nanette Rowecaleb Mental illness Father Migraines Sister Rukhsanaa Packer Mental illness Sister Rukhsanaa Packer Asthma Sister Alexyia Packer Mental illness Brother Tong Arceoalvo Migraines Brother Tong Packer Asthma Brother Tongzan ArceoPacker No Known Problems Son Asthma Brother Sami Packer SURGICAL HISTORY Past Surgical History: Procedure Laterality Date SECTION, CLASSIC 01/06/2025 SECTION, LOW TRANSVERSE 08/31/2021 SECTION, LOW TRANSVERSE 11/02/2023 REVIEW OF SYSTEMS Review of Systems: Review of Systems All other systems reviewed and are negative. OBJECTIVE Objective: Physical Exam Constitutional: Appearance: Normal [...] nursing note reviewed. Exam conducted with a associate professor of musicology present. Vitals: Estimated body mass index is 29.82 kg/m as calculated from the following: Height as of 01/24/25: 5' 1 . Weight as of this encounter: 157 lb 12.8 oz. BP: 100/60 No LMP recorded. ASSESSMENT & PLAN ICD-10-CM 1. 6 weeks follow-up Z39.2 Patient and spouse present today for 5 week appointment. Patient had on 01/06/2025. Incision healed well with a slight opening that is going to heal on its own. Patient is not currently breast feeding and sent to pharmacy to start taking. Patient to return to clinic for routine annual appointment. Patient voiced that she is doing well emotionally after delivery and patient voiced occasional heart flutters. If after post phase if patient desires to have cardiology referral if she desires. Patient vocied she is dealing well with anxiety at this time. Documented by Richar Oneill LPN on behalf of: Clyde Nelson DO documented in this encounterSt. Louis VA Medical [id number] History of Present illness Narrative* MEÑO Andrews - 02/03/2025 3:00 PM EDT Reason for Appointment: Patient ID: Erika Reid is a 30 y.o. female who presents for Post-op Visit (Pt present for a incision check. Pt had a c/s on ) Patient presents today for 2 Week Post Op Follow Up appointment. MEDICATIONS Current Outpatient Medications Medication Instructions cephalexin (KEFLEX) 500 mg, Oral, 3 times daily docusate sodium (COLACE) 100 mg, Oral, 2 [...] Age of Onset Mental illness Mother Nanette Rowecaleb Migraines Mother Nanette Rangelraji Other (headache) Mother Nanette Rowecaleb Breast cancer Mother Nanette Rangelraji stage 2 Asthma Mother Nanette Rangelraji Mental illness Father Migraines Sister Viji Arceoalvo Mental illness Sister Rukhsanaa Packer Asthma Sister Alexyia Packer Mental illness Brother Tong Arceoalvo Migraines Brother Tong Packer Asthma Brother Tong Arceoalvo No Known Problems Son Asthma Brother Sami [...] breath sounds. Abdominal: Palpations: Abdomen is soft. Comments: 1cm area of dehiscence, no drainage or discharge Musculoskeletal: General: Normal range of motion. Neurological: General: No focal deficit present. Mental Status: She is alert and oriented to person, place, and time. Skin: General: Skin is warm. Psychiatric: Mood and Affect: Mood normal. Behavior: Behavior normal. Thought Content: Thought content normal. Judgment: Judgment normal. Vitals and nursing note reviewed. Vitals: Estimated body mass index is 29.85 kg/m as calculated from the following: Height as of 01/24/25: 5' 1 . Weight as of this encounter: 158 lb. BP: 118/70 No LMP recorded. ASSESSMENT & PLAN No diagnosis found. Patient presents for incision check, area cleaned with hiblense and saline, small area open, silvernitrate applied. Pt to continue antibiotics as prescribed, pt will follow up for post in 2 weeks Documented by MEÑO Andrews on behalf of: MEÑO Andrews documented in this encounterSt. Louis VA Medical [id number] History of Present illness Narrative* Jamila Velez MD - 01/24/2025 9:20 AM EST Images from the original note were not included. Erika Reid is a 30 y.o. female presents with chief complaint of Cough HPI: HPI Patient presents today with a cough, she states that has been going on now for 4-5 days. She statesher son was dx with croup. 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 History of Present Illness The patient presents for evaluation of a cough. She has been experiencing a persistent cough for the past 5 days, which has led to hoarseness in her voice. The cough is more severe during the night and is accompanied by an intermittent scratchy sensation in her throat. She reports no febrile episodes. She has no history of asthma. She has not yet started treatment with Tessalon Perles. She has been managing her symptoms with Tylenol and lemon juice, which have provided some relief. MEDICATIONS Current: Tessalon Perles, Tylenol SUBJECTIVE: MEDICATIONS: Current Outpatient Medications Medication Instructions benzonatate (TESSALON) 200 mg, Oral, 3 times daily PRN, Do not crush or chew. docusate sodium (COLACE) 100 mg, Oral, 2 times daily PRN iron polysaccharides (Nu-Iron,Niferex) 150 MG capsule 1 capsule, Daily I have reviewed and reconciled the history and medication list with the patient today. REVIEW OF SYMPTOMS: Review of Systems OBJECTIVE: Visit Vitals BP 112/70 Pulse 73 Temp 98.6 F Ht 5' 1 Wt 158 lb 3.2 oz SpO2 98% BMI 29.89 kg/m OB Status Recent Smoking Status Never BSA 1.76 m Physical Exam Constitutional: Appearance: Normal appearance. [...] Content: Thought content normal. Judgment: Judgment normal. ASSESSMENT AND PLAN: Assessment/Plan Problem List Items Addressed This Visit None Visit Diagnoses Acute bronchitis, unspecified organism - Primary Assessment & Plan 1. Cough. The etiology of the cough is likely viral, specifically parainfluenza virus, which has resulted in mild inflammation of the vocal cords. Her body appears to be effectively combating the infection. She is advised to continue self-care measures such as adequate rest, including naps when possible, andconsumption of hot tea. The use of Tessalon Perles is recommended for symptomatic relief. She is also encouraged to receive her influenza vaccine. If the cough worsens or new symptoms develop, she should notify the clinic immediately. documented in this encounterSt. Louis VA Medical [id number] History of Present illness Narrative* Richar Oneill, OVER SHORT AND DAMAGE CLERK - 01/12/2025 1:50 PM EST Reason for Appointment: Patient ID: Erika Reid is a 30 y.o. female who presents for Post-op Visit Patient presents today for 1 Week Post Op Follow Up appointment. MEDICATIONS Current Outpatient Medications Medication Instructions [...] Age of Onset Mental illness Mother Nanette Sherraji Migraines Mother Nanette Franklin Other (headache) Mother Nanette Franklin Breast cancer Mother Nanette Reid stage 2 Asthma Mother Nanette Reid Mental illness Father Migraines Sister Alexyia Packer Mental illness Sister Viji Packer Asthma [...] systems reviewed and are negative. OBJECTIVE Objective: Physical Exam Constitutional: Appearance: Normal appearance. She is well-developed. Cardiovascular: Rate and Rhythm: Normal rate and regular rhythm. Pulmonary: Effort: Pulmonary effort is normal. Breath sounds: Normal breath sounds. Abdominal: General: A surgical scar is present. Bowel sounds are normal. There is no [...] nursing note reviewed. Exam conducted with a associate professor of musicology present. Vitals: Estimated body mass index is 31.2 kg/m as calculated from the following: Height as of 08/13/24: 5' 1 . Weight as of this encounter: 165 lb 1.9 oz. BP: 110/70 No LMP recorded. ASSESSMENT & PLAN ICD-10-CM 1. Postoperative follow-up Z09 Patient an spouse present today for 1 week postoperative appointment from c- section. Patient is doing well and incision seems to be healing well with no signs of infection. Patient to return to clinic in 5 weeks for 6 week post operative/post appointment. Documented by Richar Oneill LPN on behalf of: Clyde Nelson DO documented in this encounterSt. Louis VA Medical [id number] History of Present illness Narrative* MEÑO Andrews - 01/05/2025 1:30 PM EST Reason for Appointment: Patient ID: Erika Reid is a 30 y.o. female who presents for Routine Visit [...] Nanette Reid Mental illness Father Migraines Sister Alexyia Packer Mental illness Sister Alexyia Packer Asthma Sister Alexyia Packer Mental illness Brother Tong Arceoalvo Migraines Brother Tong Packer Asthma Brother Tong [...] reviewed. Vitals: Estimated body mass index is 33.41 kg/m as calculated from the following: Height as of 08/13/24: 5' 1 . Weight as of this encounter: 176 lb 12.8 oz. BP: 106/72 No LMP recorded. Patient is . ASSESSMENT & PLAN ICD-10-CM 1. Third trimester Z34.93 POCT urinalysis dipstick manually resulted 2. 37 weeks gestation of Z3A.37 3. Antepartum premature rupture of membrane O42.90 US OB AMNIOTIC FLUID VOLUME Return OB: Patient presents today for a routine obstetrics appointment. Patient is currently 37w4d . Patient states she is doing well but has complaints of being tired due to current . Patient has verbalizes frequent movement. labor precautions was discussed/given and patient was instructed to perform kick counts three times a day. Orders Placed This Encounter Procedures US OB AMNIOTIC FLUID VOLUME POCT urinalysis dipstick manually resulted Follow Up: Patient is to return to office in 1 week for routine OB appointment. Documented by MEÑO Andrews on behalf of: MEÑO Andrews documented in this encounterSt. Louis VA Medical [id number] History of Present illness Narrative* MEÑO Andrews - 12/31/2024 2:50 PM EST Reason for Appointment: Patient ID: Erika Reid is a 29 y.o. female who presents for Routine Visit Patient presents today for Return OB appointment. MEDICATIONS Current Outpatient Medications Medication Instructions docusate sodium (COLACE) 100 mg, Oral, 2 times daily PRN iron polysaccharides (Nu-Iron,Niferex) 150 MG capsule 1 capsule, Daily metroNIDAZOLE (FLAGYL) 500 mg, Oral, 2 times daily, Do not drink alcohol while taking this medication terconazole (Terazol 7) 0.4 % vaginal cream 1 applicator, Vaginal, Nightly ALLERGIES Allergies Allergen Reactions Latex Hives, Swelling [...] Age of Onset Mental illness Mother Nanette Rangelraji Migraines Mother Nanette Sherraji Other (headache) Mother Nanette Rangelraji Breast cancer Mother Nanette Rangelraji stage 2 Asthma Mother Nanette Rangelraji Mental illness Father Migraines Sister Alexyia Packer Mental illness Sister Alexyia Packer Asthma Sister Alexyia Packer Mental illness Brother Tong Arceoalvo Migraines Brother Tong Packer Asthma Brother Tongzan [...] reviewed. Vitals: Estimated body mass index is 33.44 kg/m as calculated from the following: Height as of 08/13/24: 5' 1 . Weight as of this encounter: 177 lb. BP: 120/72 No LMP recorded. Patient is . ASSESSMENT & PLAN ICD-10-CM 1. Third trimester Z34.93 POCT urinalysis dipstick manually resulted 2. 36 weeks gestation of Z3A.36 Return OB: Patient presents today for a routine obstetrics appointment. Patient is currently 36w6d . Patient states she is doing well but has complaints of being tired due to current . Patient has verbalizes frequent movement. labor precautions was discussed/given and patient was instructed to perform kick counts three times a day. Orders Placed This Encounter Procedures POCT urinalysis dipstick manually resulted Follow Up: Patient is to return to office in 1 week for routine OB appointment. Documented by MEÑO Andrews on behalf of: MEÑO Andrews documented in this encounterSt. Louis VA Medical [id number] History of Present illness Narrative* Marixa ISHMAEL Parra - 12/24/2024 3:10 PM EST Reason for Appointment: Patient ID: Erika Reid [...] Nanette Reid Mental illness Father Migraines Sister Rukhsanaa Packer Mental illness Sister Rukhsanaa Packer Asthma Sister Alexyia Packer Mental illness [...] nursing note reviewed. Exam conducted with a associate professor of musicology present. Vitals: Estimated body mass index is [...] of: Clyde Nelson DO documented in this encounterSt. Louis VA Medical [id number] History of Present illness Narrative* MEÑO Andrews - 12/18/2024 11:00 AM EST Reason for Appointment: Patient ID: Erika Reid [...] Mother Nanette Reid Breast cancer Mother Nanette Rangelraji stage 2 Asthma Mother Nanette Rangelraji Mental illness Father Migraines Sister Alexyia Packer Mental illness Sister Alexyia Packer Asthma Sister Alexyia Packer Mental illness Brother Tong Packer Migraines Brother Tong Packer Asthma Brother Tong Packer No Known Problems Son Asthma Brother Sami Arceoalvo SURGICAL HISTORY Past Surgical History: Procedure Laterality [...] behalf of: MEÑO Andrews documented in this encounterSt. Louis VA Medical CenterLbtafktzkx70-36-5796 History of Present illness Narrative* Richar Oneill LPN - 12/01/2024 3:30 PM EST Reason for Appointment: Patient ID: Erika Reid [...] colace sent to pharmacy and nursing [facility] Scheduling in regards to iron infusions. Patient to RTC in 2 weeksfor routine OB appointment. Documented by Richar Oneill LPN on behalf of: Clyde Nelson DO documented in this encounterSt. Louis VA Medical CenterJpffvmxqvm20-61-3950 History of Present illness Narrative* MEÑO Andrews - 11/12/2024 2:40 PM EST Reason for Appointment: Patient ID: Erika Reid [...] Mother Nanette Reid Breast cancer Mother Nanette Rangelraji stage 2 Asthma Mother Nanette Rangelraji Mental [...] behalf of: MEÑO Andrews documented in this encounterSt. Louis VA Medical [id number] History of Present illness Narrative* MEÑO Andrews - 10/15/2024 2:30 PM EST Reason for Appointment: Patient ID: Erika Reid [...] Nanette Reid stage 2 Asthma Mother Nanette Rowecaleb Mental illness Father Migraines Sister Alexyia Packer [...] Vivian Murphy MA on behalf of: MEÑO Andrwes documented in this encounterSt. Louis VA Medical CenterYknbbmioce86-76-6890 History of Present illness Narrative* Jamila Velez MD - 08/13/2024 3:40 PM EDT Erika Reid is a 29 y.o. female [...] occurs weekly. This was discussed with her OB-INSIDE SALES ACCOUNT MANAGER, who reassured her that it is a [...] than a split second. documented in this encounterSt. Louis VA Medical [id number] Telephone encounter Note* Telephone Encounter - William Nieto - 08/12/2024 4:22 PM EDT Pt is on the phone.. she's 17 weeks pg, watery eyes, stuffy nose, runny nose, feels hot (but she's always hot with pg) She isnt sure what to do, since she can't take much with pg. She said she's hoping its just allergies but isnt sure. You are done for the day, but loren has the 5 pm open.. [place]. Unless you have a recommendation? [facility] CenterXskxkobmzn99-95-3919 Miscellaneous Notes* Telephone Encounter - William Nieto - 08/12/2024 4:22 PM EDT Pt is on the phone.. she's 17 weeks pg, watery eyes, stuffy nose, runny nose, feels hot (but she's always hot with pg) She isnt sure what to do, since she can't take much with pg. She said she's hoping its just allergies but isnt sure. You are done for the day, but loren has the 5 pm open.. [place]. Unless you have a recommendation? documented in this encounterSt. Louis VA Medical CenterFgzenbqpzc09-44-8530 History of Present illness Narrative* Richar Oneill, OVER SHORT AND DAMAGE CLERK - 07/21/2024 1:20 PM EDT Reason for Appointment: Patient ID: [...] Nanette Reid stage 2 Asthma Mother Nanette eRid Mental illness Father Migraines Sister Viji Packer [...] or undercooked meat, and stay away from [facility]. Patient has been consulted regarding any further do's and don'tsof . Patient voiced understanding and all questions and concerns were answered. Pap and cul tures at next appointment. Patient aware that she will be a repeat on 01/15/2025. Discussed patients recent swelling of lower extremities and that patient does not have any swelling at thistime. Orders Placed This Encounter Procedures US OB ANATOMY SINGLE W US OB CERVICAL LENGTH Alpha fetoprotein, maternal POCT urinalysis dipstick manually resulted Follow Up: Patient is to return in 4 weeks for routine OB appointment. Documented by Richar Oneill LPN on behalf of: Clyde Nelson DO documented in this encounterSt. Louis VA Medical [id number] History of Present illness Narrative* Allyson Joel RN - 06/17/2021 12:10 AM EDT Discharge instructions reviewed with patient. Patient verbalized understanding and denies any questions. Discharge papers signed and then given to patient. Patient discharged home from unit accompanied by significant other with understanding of follow up care. No signs of distress noted. * Allyson Joel RN - 06/17/2021 12:02 AM EDT Radha Obrien CNM updated via telephone on pt, EFM, and TOCO. Orders received to discharge home. * Allyson Joel RN - 06/16/2021 8:50 PM EDT [facility] notified via telephone requesting pt's blood type information. States they will fax over after receiving HIPPA release via fax. * Allyson Joel RN - 06/16/2021 8:45 PM EDT Radha Obrien CNM in department. Updated on pt. Orders received. * Allyson Joel RN - 06/16/2021 8:24 PM EDT Pt presents to department after hitting left side of stomach on corner of kitchen counter at home at 8:00PM. Pt states pain was 4/10 and is not uncomfortable, not painful, and tender. Denies bleedingand leaking of fluid after hit. States she did have pink/red bleeding this morning described as spo tting when wiping . Pt contacted her provider who told her to come be seen if it worsened and it has not. Pt oriented to room 200, provides urine specimen and is placed on monitor. documented in this [employer] Phone: 1(181) 767-543206-23-2021 History of Present illness Narrative* Erinn Simms RN - 05/18/2021 10:06 AM EDT Obstetrical outpatient discharge instructions explained to pt, pt v.u. Pt instructed to corn picker keflex and zofran prescriptions at [facility] in [place], pt v.u. documented in this [employer] Phone: [phone]) 494-820404-28-2021 Hospital Discharge instructions* Instructions* Lidia Núñez MD - 03/23/2021 Please take all medications as prescribed. Please follow up with your primary care physician by calling today, or as soon as possible, for thefirst available appointment. If you do not have a primary care physician, please contact a physician or clinic listed below today to establish care. Please return to the emergency department IMMEDIATELY if you develop uncontrolled fevers, uncontrolled vomiting, change in symptoms, worsening of symptoms, or ANY other concerns. documented in this [employer] Phone: evaluation note* Diagnosis Leg swelling- Primary Swelling of limb documented in this encounter [employer] Phone: evaluation note* Diagnosis Nausea and vomiting during - Primary documented in this encounter [employer] Phone: evaluation note* Diagnosis Decreased movement affecting management of mother, antepartum documented in this encounter [employer] Phone: evaluation note* Diagnosis Second trimester state, incidental 25 weeks gestation of Diabetes mellitus screening Screening for diabetes mellitus [facility] Diagnosis Second trimester state, incidental Encounter for anatomic survey Need for maternal serum alpha-protein (MSAFP) screening [facility]* Diagnosis Third trimester state, incidental 29 weeks gestation of Anemia during in third trimester Excessive growth affecting management of in third trimester, single or unspecified fetus [facility]* Diagnosis Acute non-recurrent maxillary sinusitis- Primary documented in this encounter [facility]* Diagnosis 32 weeks gestation of Third trimester state, incidental Constipation during in third trimester documented in this encounter [facility]* Diagnosis Third trimester state, incidental 35 weeks gestation of Pruritus Unspecified pruritic disorder documented in this encounter [facility]* Diagnosis Third trimester state, incidental 35 weeks gestation of STD exposure [facility]* Diagnosis Third trimester state, incidental 36 weeks gestation of [facility]* Diagnosis Third trimester state, incidental 37 weeks gestation of Antepartum premature rupture of membrane documented in this encounter [facility]* Diagnosis Postoperative follow-up Follow-up examination, following unspecified surgery documented in this encounter [facility]* Diagnosis Acute bronchitis, unspecified organism- Primary documented in this encounter [facility]* Diagnosis Postoperative follow-up- Primary Follow-up examination, following unspecified surgery documented in this encounter [facility]* Diagnosis 6 weeks follow-up documented in this encounter [facility]* Diagnosis Iron deficiency anemia due to chronic blood loss- Primary Iron deficiency anemia secondary to blood loss (chronic) documented in this encounter [facility]* Diagnosis Missed menses PCOS (polycystic ovarian syndrome) Polycystic ovaries documented in this encounter [facility] Healthcare[facility] Discharge instructions* Attachments The following attachments cannot be sent through Care Everywhere. * : Hyperemesis Gravidarum ([facility]) * Nausea and Vomiting ([facility]) [facility] [employer] Work Phone: Hospital Discharge instructions* Instructions* Erinn Simms RN - 05/18/[address] Liss Tapia [facility] Dr. Alondra Orbien [address] [place] [id number] [place] [address] [place] [address] Alondra Carrillo [facility] [address] [facility] [id number] [phone] Therese Villatoro, MSN, SALES ASSISTANT DISPLAYS, CNM [facility] [address] [facility] [address] [address] Reynoso [address] [facility] [id number] Richar Ayakaelling CNM [address] [place] [place] [address] [place] [address] Gabbie Junior CNM [address] [place] [place] [address] [place] [address] [phone] ACTIVITY LIMITATIONS: ( x )Up and about [...] OF EMERGENCY CONTACT LABOR AND DELIVERY . MEDICAL CODING INSTRUCTOR PRESCRIPTIONS AT [facility] TODAY AND TAKE PRESCRIBED. KEFLEX TO BE TAKEN AT 2:30PM FOR FIRST DOSE. documented in this [facility] [employer] Work Phone: Hospital Discharge instructions* Instructions* Fiona Gilliland, RN - 05/25/[address] Liss Tapia [facility] Dr. Alondra Obrien [facility] [address] [facility] [address] [place] [address] Alondra Carrillo CN [address] [facility] [address] [phone] Therese Villatoro, MSN, SALES ASSISTANT DISPLAYS, CNM [facility] [address] [facility] [address] [address] Reynoso [address] [facility] [id number] Richar Rob CNM [address] [place] [place] [address] [place] [address] Gabbie Patrickr CNM [address] [place] [place] [address] [place] [address] [phone] ACTIVITY LIMITATIONS: ( x )Up and about [...] LABOR AND DELIVERY . documented in this [facility] Work Phone: Hospital Discharge instructions* Instructions* Allyson Joel RN - 06/17/[address] Liss Tapia [facility] Dr. Alondra Obrien CN [address] [facility] [address] [facility] [address] [place] [address] Alondra Carrillo [facility] [address] [facility] [address] [phone] ACTIVITY LIMITATIONS: ( x )Up and about [...] LABOR AND DELIVERY . documented in this [employer] Phone: Discharge Instructions * Instructions* Meche Blood MD - 02/28/2021 Take Keflex as directed until complete. Make sure to stay well-hydrated. Follow- up with your OB. Seek medical attention immediately for any worsening pain or any other acute concerns. * Attachments The following attachments cannot be sent through Care Everywhere. * Abdominal Pain ([facility]) * : PROM: General Info ([facility]) * UTI (Urinary Tract Infection): Female ([facility]) documented in this encounter Assessments Diagnosis Abdominal pain, unspecified abdominal location- Primary Urinary tract infection without hematuria, site unspecified Intrauterine Reason for Referral StatusReasonSpecialtyDiagnoses / ProceduresReferred By ContactReferred To ContactOpenRadiology Diagnoses Leg swelling Procedures VL DUP LOWER EXTREMITY VENOUS BILATERAL Lidia Núñez MD [facility] [place] [address] Advance Directives Code StatusDate ActivatedDate InactivatedCommentsFull Code05/18/2021 6:36 AMCode StatusDate ActivatedDate InactivatedCommentsFull Code05/24/2021 11:37 PMFull Code 05/18/2021 6:36 AM6/ 12:55 PMCode StatusDate ActivatedDate Inactivated CommentsFull Code06/16/2021 8:46 PMFull Code05/24/2021 11:37 PM05/25/2021 3:20 AM Summary Purpose Family History No Family History Records FoundNo Family History Records FoundNo Family History Records Found Additional Source Comments Reason for Visit (unrecogniz ed section and content) ReasonCommentsAbdominal Pain14 weeks lower abd pain,HeartburnReason CommentsLeg Swellingleft upper, onset today with redness and swelling. 17 weeks OB.ReasonCommentsAbdominal Painepigastric, onset 2330 after eating sandwich. Took tums with no relief. With emesis. 20 weeks OB.ReasonCommentsAbdominal Pain Nausea & VomitingReasonCommentsDecreased MovementReasonCommentsAbdominal PainReasonCommentsRoutine VisitPt present today for OB visit. Pt has not been seen since 07/21/2024 at 13 weeks gestation.ReasonCommentsRoutine VisitReasonCommentsPost-op VisitReasonCommentsCoughReasonCommentsPost- op VisitPt present for a incision check. Pt had a c/s [id number] Post PartumReasonCommentsmissed cycles Ordered Prescriptions (unrec ognized section and content) PrescriptionSigDispensedRefillsStart DateEnd Date cephALEXin (KEFLEX) 500 MG capsule Take 1 capsule by mouth 3 times daily for 7 days 21 capsule /10/2021 Scheduled Active and Recently Administ ered Medications (unrecognized section and content) Medication Order// 0.9 % sodium chloride bolus (COMPLETED) 1,000 mL, Intravenous, at 1,000 mL/hr, Administer over 1 Hours, ONCE, On Margarita 04/14/21 at 0200, For 1dose * 0218 (New Bag - Provider: Lorena Vega RN) * 0318 (Stopped - Provider: Mikaela Stern RN) famotidine (PEPCID) injection 20 mg (COMPLETED) 20 mg, Intravenous, ONCE, On Margarita 04/14/21 at 0200, For 1 dose, Administer over 2 minutes. * 0219 (Given - Provider: Lorena Vega, CARLOS) promethazine (PHENERGAN) injection 12.5 mg (COMPLETED) 12.5 mg, Intravenous, ONCE, On Margarita 04/14/21 at 0200, For 1 dose, Recommended route is IM. For IV administration, dilute to 10ml with normal saline. Must be administered over at least 10 minutes. * 0218 (Given - Provider: Lorena Vega, CARLOS) Medication Order05/16/// acetaminophen (TYLENOL) tablet 1,000 mg (COMPLETED) 1,000 mg, Oral, ONCE, On Sun05/18/21 at 0830, For 1 dose, Maximum dose of acetaminophen is 4000 mg from all sources in 24 hours. * 0833 (Given - Provider: Martha Tatum, CARLOS) ceFAZolin (ANCEF) 2000 mg in dextrose 3 % 50 mL IVPB (duplex) (COMPLETED) 2,000 mg, Intravenous, ONCE, 1 dose, On Sun05/18/21 at 0830 * 0837 (New Bag - Provider: Martha Tatum RN) * 0908 (Stopped - Provider: Erinn Simms, CARLOS) ondansetron (ZOFRAN) injection 4 mg (COMPLETED) 4 mg, Intravenous, ONCE, On Sun05/18/21 at 0830, For 1 dose * 0835 (Given - Provider: Martha Tatum, CARLOS) Medication Order05/16/// lactated ringers infusion Intravenous, at 999 mL/hr, CONTINUOUS, Starting on Sun05/18/21 at 0830 * 0820 (New Bag - Provider: Martha Tatum RN) * 0950 (Stopped - Provider: Erinn Simms, CARLOS) INFORMATION SOURCE (unrecogn ized section and content) DATE CREATED AUTHOR 06/19/2021 [facility] DATE CREATED AUTHOR AUTHOR'S ORGANIZ ATION 05/07/2023 [facility] DATE CREATED AUTHOR AUTHOR'S ORGANIZ ATION 02/17/2025 [facility] EPIC Care Teams (unrecognized sec tion and content) Team MemberRelationshipSpecialtyStart DateEnd Date Jamila Velez MD [address] [place] [address] [facility] - [facility] Quynh Vasquez PA [address] [place] [address] Dr [place], [place] [address] PCP - [facility]02/25/24Te MemberRelationshipSpecialtyStart DateEnd Date Jamila Velez MD [address] [place] [address] PCP - [facility]04/03/23 Quynh Vasquez PA [address] [place] [address] Dr [place], [place] [address] PCP - [facility]02/25/24Te MemberRelationshipSpecialtyStart DateEnd Date Jamila Velez MD [address] [facility] [place] [address] PCP - [facility]04/03/23 Quynh Vasquez PA [address] [place] [address] Dr [place], [place] [address] PCP - [facility]02/25/24Te MemberRelationshipSpecialtyStart DateEnd Jamila Eden MD [address] [place] [address] PCP - [facility]04/03/23 Quynh Vasquez PA [address] [place] [address] [place] [address] PCP - [facility]02/25/24Te MemberRelationshipSpecialtyStart DateEnd Date Jamila Velez MD [address] [facility] [place] [address] [facility] - [facility]04/03/23 Quynh Vasquez PA [address] [place] [address] [place] [address] PCP - [facility]02/25/24Te MemberRelationshipSpecialtyStart DateEnd Date Jamila Velez MD [address] [facility] [place] [address] PCP - [facility]04/03/23 Quynh Vasquez PA [address] [place] [address] [place] [address] PCP - [facility]02/25/24Te MemberRelationshipSpecialtyStart DateEnd Date Jamila Velez MD [address] [facility] [address] PCP - [facility]04/03/23 Quynh Vasquez PA [address] [place] [address] [place] [address] PCP - [facility]02/25/24Te MemberRelationshipSpecialtyStart DateEnd Date Jamila Velez MD [address] [facility] [address] PCP - [facility]04/03/23 Quynh Vasquez PA [address] [place] [address] [place] [address] PCP - [place] [address]Te MemberRelationshipSpecialtyStart DateEnd Date Jamila Velez MD [address] [place] [address] [facility] - [facility]04/03/23 Quynh Vasquez PA [address] [place] [address] [place] [address] [facility]02/25/24Te MemberRelationshipSpecialtyStart DateEnd Date Jamila Velez MD [address] [facility] [place] [address] [facility] - [facility]04/03/23 Quynh Vasquez PA [address] [place] [address] [place] [address] [facility] - [facility]02/25/24Te MemberRelationshipSpecialtyStart DateEnd Date Jamila Velez MD [address] [place] [address] [facility]04/03/23 Quynh Vasquez, PA [address] [place] [address] [place] [address] [facility]02/25/24Te MemberRelationshipSpecialtyStart DateEnd Date Jamila Velez MD [address] [place] [address] [facility]04/03/23 Quynh Vasquez PA [address] [place] [address] [place] [address] [facility]02/25/24Te MemberRelationshipSpecialtyStart DateEnd Date Jamila Velez MD [address] [place] [address] PCP - [facility]04/03/23 Quynh Vasquez PA [address] [place] [address] Dr [place], [facility]11 PCP - [facility]02/25/24Te MemberRelationshipSpecialtyStart DateEnd Date Jamila Velez MD [address] [place] [address] PCP - [facility]04/03/23 Quynh Vasquez PA [address] [place] [address] Dr S[place], [facility]11 [facility] - [facility]02/25/24Te MemberRelationshipSpecialtyStart DateEnd Date Jamila Velez MD [address] [place] [address] PCP - [facility]04/03/23 Quynh Vasquez PA [address] [place] [address] Dr Soria, [facility]11 [facility] - [facility]02/25/24Te MemberRelationshipSpecialtyStart DateEnd Date Jamila Velez MD [address] [facility] [place] [address] PCP - [facility]04/03/23 Quynh Vasquez PA [address] [place] [address] Dr Soria, [facility]11 [facility]02/25/24 FOR RECORDS PERTAINING TO PATIENTS WHO ARE [...] BE BASED ON THE PRIMARY CLINICAL RECORDS. [facility]. provides no warranty or guarantee of the accuracy or completeness of information in this document.
[2025-09-22 16:57] LABS: Hematocrit 41.4 % (36.0-48.0); Hemoglobin 13.8 g/dL (12.0-16.0); Immature Granulocytes Abs Auto 0.04 10^3/uL (0.00-0.03); Immature Granulocytes Pct Auto 0.4 % (0.0-0.5); Lymphocytes Absolute Auto 2.5 10^3/uL (1.2-3.8); Mean Corpuscular HGB Conc 33.3 g/dL (29.9-35.2); Mean Corpuscular Hemoglobin 29.7 pg (26.7-34.0); Mean Corpuscular Volume 89.2 fL (81.0-99.0); Platelet Count 339 10^3/uL (150-450); Red Blood Count 4.64 10^6/uL (4.20-5.40); White Blood Count 9.3 10^3/uL (4.0-11.0)
[2025-09-22 18:10] LABS: Thyroid Stimulating Hormone 2.610 uIU/mL (0.358-3.740)
[2025-09-24 04:07] LABS: FSH 5.1 mIU/mL (.)
== END 2025-09-22 16:15 | disposition home or self-care (01) ==
PROVIDERS: Visit Provider Obstetrics & Gynecology
DX: N92.6 Irregular menstruation, unspecified (principal); E28.2 Polycystic ovarian syndrome
CPT/HCPCS: 36415; 82626; 82627; 82670; 83001; 83002; 83036; 84144; 84146; 84439; 84443; 84702; 85025

== ENCOUNTER 2025-10-27 18:58 | Outpatient (REF) | payer OTHER, SELFPAY ==
--- OUTSIDE RECORDS SUMMARY | 2025-10-26 16:00 | XMS_ITS | Encounter Summary ---
Author Organization [facility] Address [address] [facility] [place] [address] Care Team Providers Care Office Technology Professor Name Role Phone Jamila Velez MD Primary Care Provider [phone] Quynh Vasquez Unavailable Reason for Visit * ReasonCommentsHeadacheNasal CongestionStarted 4 days agoNauseaWants a preg test. Abnormal periods was dx with PCOS Encounter Details DateTypeDepartmentCare Team (Latest Contact Info)Sqplktnfbtq53/01/2025 4:00 PM ESTOffice Visit [facility] [address] [place] [phone] Melvi Nielson NP [address], [place] [id number] Non-recurrent acute suppurative otitis media of both ears without spontaneous rupture of tympanic membranes (Primary Dx); Missed period; Nasal congestion; Sore throat; Viral upper respiratory tract infection Social History Tobacco UseTypesPacks/DayYears UsedDateSmoking Tobacco: NeverSmokeless Tobacco: NeverAlcohol UseStandard Drinks/WeekCommentsNever0 (1 standard drink = 0.6 oz pure alcohol)Caffeine: noneSocial Connection and Isolation PanelAnswerDate RecordedIn a typical week, how many times do you talk on the phone with family, friends, or neighbors?Once a week05/07/2024How often do you get together with friends or relatives?Once a week05/07/2024How often do you attend taoist or anabaptism services?Never05/07/2024o you belong to any clubs or organizations such as taoist groups, unions, fraternal or athletic groups, or school groups?No 05/07/2024How often do you attend meetings of the clubs or organizations you belong to?Never05/07/2024re you , , , , never , or living with a partner?Living with oqmxsmk9705/07/2024UDIT-CAnswerDate RecordedQ1: How often do you have a [...] and heating?Not very hard05/07/2024HQ-2AnswerDate RecordedPatient Health Questionnaire-2 Pvggi236[facility] [place] of [facility] - Occupational Stress QuestionnaireAnswerDate RecordedDo you feel stress - tense, restless, nervous, or anxious, or unable to sleep at night because yourmind is troubled all the time - these days?Only a ejxlak5705/07/2024 Exercise Vital SignAnswerDate RecordedOn average, how many [...] were you homeless or living in a half-way (including now)?No 05/07/2024CommentsUnknownSex and Gender InformationValueDate RecordedSex Assigned at BirthNot on fileLegal CtwNbxawq72/15/2023 11:16 PM EDTGender IdentityNot on fileSexual OrientationNot on filedocumented as of this encounter Last Filed Vital Signs Vital SignReadingTime TakenCommentsBlood Nfbhrhym326/80112/27/2024 3:54 PM EST Cxosh9914/01/2025 3:54 PM YMKHnhsntgkpyf27.5 ??C (99.5 ??F)10/26/2025 3:54 PM ESTRespiratory Rate--Oxygen Wpantpzwiv61%10/26/2025 3:54 PM ESTInhaled Oxygen Concentration--Pkgtbi71.4 kg (175 lb)10/26/2025 3:54 PM HTGZwftvq989.9 cm (5' 1 )10/26/2025 3:54 PM ESTBody Mass Index33.0710/26/2025 3:54 PM ESTdocumented in this encounter Progress Notes * Melvi Nielson NP - 10/26/2025 4:00 PM ESTAssociated Problem(s): Missed period Orders: POCT , urine * Melvi Nielson NP - 10/26/2025 4:00 PM EST Subjective ?Quick Links Last Note in Specialty Snapshot Edit RFV/CC Edit Screenings Current Meds Patient ID: Erika Reid is a 30 y.o. female who presents for Headache, Nasal Congestion (Started 4 days ago), and Nausea (Wants a preg test. Abnormal periods was dx with PCOS). HPI History of Present Illness The patient presents for evaluation of congestion, headache, and otitis media. She reports experiencing congestion, hoarseness, and a headache since Sunday morning. Additionally,she mentions a sore throat and cough. Her eyes are swollen and puffy, and she has been alternating between feeling extremely hot and cold. She has been using Vicks VapoRub on her chest for relief. She has been self- medicating with DayQuil, which she finds ineffective, and Mucinex, which provides some relief. She has previously tried Sunita but discontinued it due to adverse reactions including severe body aches and nausea. She had Flonase nasal spray, but it this year. This morning, she experienced a popping sensation in her neck during a stretch, which has resulted in limited neck mobility. She expresses concern about potential ear infections as her children have recently been diagnosed with similar conditions. ?Quick Review Review Full History Edit History Meds - Current Medications[1] --- PMH - Anxiety Breast pain, left Depression History of History of migraine headaches Lower back pain Overweight (BMI 25.0-29.9) Pain of ovary Pelvic pain in female Objective ?Quick Links Add Vitals Timeline (Adult) Labs Imaging Results Review Trend Vitals ?? Avoid pulling in long tables of results. Comment on relevant results to support your medical decision making. BP 124/80 Pulse 90 Temp 99.5 ??F Ht 5' 1 Wt 175 lb SpO2 98% BMI 33.07 kg/m?? Physical Exam Vitals and nursing note reviewed. Constitutional: Appearance: Normal appearance. HENT: Head: Normocephalic and atraumatic. Right Ear: Tympanic membrane is injected and erythematous. Tympanic membrane is not perforated or bulging. Left Ear: Tympanic membrane is injected and erythematous. Tympanic membrane is not perforated or bulging. Nose: Congestion present. Right Sinus: No maxillary sinus tenderness or frontal sinus tenderness. Left Sinus: No maxillary sinus tenderness or frontal sinus tenderness. Mouth/Throat: Mouth: Mucous membranes are moist. Pharynx: Posterior oropharyngeal erythema present. No oropharyngeal exudate. Cardiovascular: Rate and Rhythm: Normal rate and regular rhythm. Heart sounds: Normal heart sounds. Pulmonary: Effort: Pulmonary effort is normal. No respiratory distress. Breath sounds: Normal breath sounds. No stridor. No wheezing, rhonchi or rales. Skin: General: Skin is warm and dry. Neurological: General: No focal deficit present. Mental Status: She is alert and oriented to person, place, and time. Psychiatric: Mood and Affect: Mood normal. Behavior: Behavior normal. Physical Exam Ears: Both ears appear slightly red. Respiratory: Clear to auscultation, no wheezing, rales or rhonchi Cardiovascular: Regular rate and rhythm, no murmurs, rubs, or gallops ?Quick Links Full Problem List Cardiology GI Assessment & Plan Missed period Orders: POCT , urine Nasal congestion Orders: STATUS COVID-19/FLU Sore throat Viral upper respiratory tract infection Orders: fluticasone (Flonase) 50 MCG/ACT nasal spray; Administer 2 sprays into each nostril Daily Shake gently. Before first use, prime pump. After use, clean tip and replace cap. Most likely viral in nature, will need to run its course. Educated patient viral infections such ascolds/flus do not respond to abx and typically do not begin to improve until 7-10 days into the illness. Discussed symptomatic treatment with patient. Humidifier at bedside to moisten area. Push fluids. Rest. Good handwashing. Follow up if symptoms do not improve. To ER for markedly worsening symptoms. Non-recurrent acute suppurative otitis media of both ears without spontaneous rupture of tympanic membranes Orders: amoxicillin-clavulanate (Augmentin) 875-125 MG tablet; Take 1 tablet (875 mg) by mouth in the morning and 1 tablet (875 mg) before bedtime. Do all this for 7 days. Initiate antibiotics as prescribed. Tylenol/motrin OTC prn for fever/discomfort. Flonase/oral antihistamine OTC to help dry up secretions. Instructed to notify office if symptoms persist or worsen. Assessment & Plan 1. Otitis media: - Both ears appear red, likely due to drainage. - Augmentin will be prescribed, to be taken as one tablet twice daily for 7 days. If the prescription is filled today, one tablet should be taken today and the twice-daily regimen should start from tomorrow. - If there is no improvement after completing the antibiotic course, further evaluation will be necessary. 2. Congestion: - She reports congestion, hoarseness, and headache since Sunday morning. She also experiences swollen and puffy eyes, fluctuating between feeling very hot and very cold. - COVID-19 and influenza tests came back negative. test came back negative. - She is advised to continue using Mucinex iyii-yhb-ansfyil. Flonase nasal spray, 2 sprays in each nostril daily, will be prescribed. Additional recommendations include using a humidifier or vaporizer in her room, performing warm salt water gargles for her sore throat, maintaining adequate hydration, and applying Vicks VapoRub on her chest to alleviate coughing. [1] amoxicillin-clavulanate (Augmentin) 875-125 MG tablet fluticasone (Flonase) 50 MCG/ACT nasal spray documented in this encounter Plan of Treatment Not on file documented as of this encounter Goals GoalPatient Goal TypeAssociated ProblemsRecent ProgressPatient-Stated?Author Reminders Care PlanOB RemindersNoOpen Scheduling, Backgrounddocumented as of this encounter Procedures Procedure NamePriorityDate/TimeAssociated DiagnosisCommentsSTATUS COVID-19/FLU Nyccnqw9210/26/2025 4:22 PM EST Nasal congestion POCT , EXHUFYocuhwe67/01/2025 4:22 PM EST Missed period documented in this encounter Results * POCT , urine (10/26/2025 4:22 PM EST)ComponentValueRef RangeTest MethodAnalysis TimePerformed AtPathologist SignaturePreg Test, UrNegative NegativeSpecimen (Source)Anatomical Location / LateralityCollection Method / VolumeCollection TimeReceived TiotMdkwa22/01/2025 4:22 PM EST Narrative Authorizing ProviderResult TypeResult StatusMelvi Nielson NPPOINT OF CARE TEST ENTER/EDIT ORDERABLESFinal Result * STATUS COVID-19/FLU (10/26/2025 4:22 PM EST)ComponentValueRef RangeTest Method Analysis TimePerformed AtPathologist SignatureFLU ANegativeFLU BNegativeSARS COV 2 RNANegativeSpecimen (Source)Anatomical Location / LateralityCollection Method / VolumeCollection TimeReceived VofsIuvsnelrtubgml89/01/2025 4:22 PM EST Narrative Authorizing ProviderResult TypeResult StatusBreann Majors NPPOINT OF CARE TEST ENTER/EDIT ORDERABLESFinal Result documented in this encounter Visit Diagnoses Diagnosis Non-recurrent acute suppurative otitis media of both ears without spontaneous rupture of tympanic membranes- Primary Missed period Nasal congestion Other diseases of nasal cavity and sinuses Sore throat Acute pharyngitis Viral upper respiratory tract infection Acute upper respiratory infections of unspecified site documented in this encounter Additional Health Concerns Active ProblemsNoted DateDiagnosed DateOB Isupakkjh45/03/2025 documented as of this encounter Care Teams Team MemberRelationshipSpecialtyStart DateEnd Date Jamila Velez MD [address] [place] [address] [facility] - [facility] Quynh Vasquez PA [address] [place] [address] [place] [address] PCP - [facility]02/25/24documented as of this encounter
--- OUTSIDE RECORDS SUMMARY | 2025-10-27 13:40 | XMS_ITS | Encounter Summary ---
Author Organization [facility] Address [address] [place] [address] Care Team Providers Care Developmental Behavioral Physician Name Role Phone Jamila Velez MD Primary Care Provider [phone] Quynh Vasquez Unavailable Reason for Visit * ReasonCommentsGynecologic Exam Encounter Details DateTypeDepartmentCare Team (Latest Contact Info)Icriexsjqcs32/02/2025 1:40 PM ESTProcedure Visit [facility] [address] [place] [address] Clyde Nelson DO [address] [place] [address] Well woman exam with routine gynecological exam Social History Tobacco UseTypesPacks/DayYears UsedDateSmoking Tobacco: NeverSmokeless Tobacco: NeverAlcohol UseStandard Drinks/WeekCommentsNever0 (1 standard drink = 0.6 oz pure alcohol)Caffeine: noneSocial Connection and Isolation PanelAnswerDate RecordedIn a typical week, how many times do you talk on the phone with family, friends, or neighbors?Once a week05/07/2024How often do you get together with friends or relatives?Once a week05/07/2024How often do you attend synagogue or jainism services?Never05/07/2024o you belong to any clubs or organizations such as synagogue groups, unions, fraternal or athletic groups, or school groups?No 05/07/2024How often do you attend meetings of the clubs or organizations you belong to?Never05/07/2024re you , , , , never , or living with a partner?Living with rtkgavk4605/07/2024UDIT-CAnswerDate RecordedQ1: How often do you have a [...] and heating?Not very hard05/07/2024HQ-2AnswerDate RecordedPatient Health Questionnaire-2 Neqwn240[facility] [place] of Occupational Health - Occupational Stress QuestionnaireAnswerDate RecordedDo you feel stress - tense, restless, nervous, or anxious, or unable to sleep at night because yourmind is troubled all the time - these days?Only a cdpejo7605/07/2024 Exercise Vital SignAnswerDate RecordedOn average, how many [...] were you homeless or living in a penitentiary (including now)?No 05/07/2024CommentsUnknownSex and Gender InformationValueDate RecordedSex Assigned at BirthNot on fileLegal FguSjwuet37/15/2023 11:16 PM EDTGender IdentityNot on fileSexual OrientationNot on filedocumented as of this encounter Last Filed Vital Signs Vital SignReadingTime TakenCommentsBlood Lwjvvrkw378/6010/27/2025 2:10 PM EST Pulse--Temperature--Respiratory Rate--Oxygen Saturation--Inhaled Oxygen Concentration--Crunds74 kg (172 lb)10/27/2025 2:10 PM ESTHeight--Body Mass Index 32.512 3:54 PM ESTdocumented in this encounter Plan of Treatment NameTypePriorityAssociated DiagnosesOrder SchedulePap SmearPathology and CytologyRoutine Well woman exam with routine gynecological exam Ordered: 10/27/2025HPV DNA probe, amplifiedMicrobiologyRoutine Well woman exam with routine gynecological exam Ordered: 10/27/2025documented as of this encounter Goals GoalPatient Goal TypeAssociated ProblemsRecent ProgressPatient-Stated?Author Reminders Care PlanOB RemindersNoOpen Scheduling, Backgrounddocumented as of this encounter Visit Diagnoses Diagnosis Well woman exam with routine gynecological exam Routine gynecological examination documented in this encounter Additional Health Concerns Active ProblemsNoted DateDiagnosed DateOB Vhqsxuntr45/03/2025 documented as of this encounter Care Teams Team MemberRelationshipSpecialtyStart DateEnd Date Jamila Velez MD [address] [place] [address] PCP - GeneralFamily Medicine04/03/23 Quynh Vasquez PA [address] [place] [address] [place] [address] [facility]02/25/24documented as of this encounter
--- OUTSIDE RECORDS SUMMARY | 2025-10-27 19:03 | XMS_ITS | CCD ---
Author Organization [facility] Care Team Providers Care Apartment House Manager Name Role Phone Unavailable Primary Care Provider [...] Unavailable LESLIE ., DR GUARDADO Attending Unavailable [place], DR AMNA Ames Consulting Unavailable LESLIE ., [...] Unavailable JEANETH, ANANT Consulting Unavailable BLAINE, DR MANA Ames Consulting Unavailable MARIO ., ARSH Admitting Unavailable MARIO ., ARSH Attending Unavailable [facility], DR ALLRED Primary Care Unavailable MARIO ., ARSH Consulting Unavailable Rosie CHENEY, Jamila Porras Primary Care Provider Quynh Burnett Unavailable Quynh Burnett Unavailable LESLIE, CLYDE Attending Unavailable CHRISTINA, QUYNH Attending Unavailable CHRISTINA, QUYNH Attending Unavailable LESLIE, CLYDE Referring Unavailable LESLIE, CLYDE Attending Unavailable LESLIE, CLYDE Attending Unavailable CHRISTINA, QUYNH Attending Unavailable ROSIE, JAMILA F Attending Unavailable ROSIE, JAMILA F Attending Unavailable LESLIE, CLYDE Attending Unavailable CHRISTINA, QUYNH Referring Unavailable CHRISTINA, QUYNH Attending Unavailable CHRISTINA, QUYNH Attending Unavailable LESLIE, CLYDE Attending Unavailable CHRISTINA, QUYNH Attending Unavailable Allergies Allergy ClassificationReported Allergen(s)Allergy TypeDate of OnsetReaction(s) FacilityLatex (5 sources)LatexSubstance Gymeeay56-46-6361GmvvldbqQikkz Health (1 source)LatexPropensity to adverse reactions to ykib82-86-0866[facility] Work Phone: (1 source)LatexDrug allergy (disorder)[facility] (20 sources)LatexPropensity to adverse nbnibitio88-59-0573Dqcer, Swelling, Rash [facility] Work Phone: Medications Current Medications MedicationDrug Class(es)DatesSig (Normalized)Sig (Original)acetaminophen 500 mg oral tablet (4 sources)Start: 08-13-2024 End: 45-76-5231nxql 1 tablet by mouth every six hours for painacetaminophen (Tylenol Extra Strength) 500 MG tablet Indications: Acute non-recurrent maxillary sinusitis Take 1 tablet (500 mg) by mouth every 6 (six) hours if needed for mild pain for up to 10 days40 tablet 08/13/2024 08/23/2024 Active Start: 05-18-2021 End: 48-27-7531hporwfjtmnctx (TYLENOL) tablet 1,000 mgamoxicillin 500 mg oral capsule (3 sources)Penicillin-class AntibacterialStart: 08-13-2024 End: 70-18-4204hdzf 1 capsule by mouth in the morning, [...] oral capsule (3 sources)Non-narcotic AntitussiveStart: 01-22-2025 End: 23-88-2774xyzs 1 capsule by mouth three times daily [...] lactate 0.028 meq/ml injectable solution (1 source)Start: 30-54-3710gifpjmjm ringers infusioncephalexin 500 mg oral capsule (6 sources)Cephalosporin AntibacterialStart: 01-30-2025 End: 86-33-4230ibdt 1 capsule by mouth in the morning, [...] 30 capsule 01/30/2025 02/09/2025 ActiveStart: 02-28-2021 End: 20-47-0057otxk 1 capsule by mouth three times dailycephALEXin (KEFLEX) 500 MG capsule Take 1 capsule by mouth 3 times daily for 7 days 21 capsule 0 03/202103/07/2021 Activetake 1 capsule by mouth twice dailycephALEXin (KEFLEX) 500 MG capsule Take 500 mg by mouth 2 times daily 0 Active2 ml famotidine 10 mg/ml injection (1 source)Histamine-2 Receptor AntagonistStart: 04-14-2021 End: 22-18-9980ejvcyxuntm (PEPCID) injection 20 mgStart: 04-14-2021 End: 49-69-0411mfvdenmsyo (PEPCID) injection 20 mgmetroNIDAZOLE 500 mg oral tablet (2 sources)Nitroimidazole AntimicrobialStart: 12-25-2024 End: 62-70-5461upqt 1 tablet by mouth in the morningmetroNIDAZOLE (Flagyl) 500 MG tablet Indications: BV (bacterial vaginosis) Take 1 tablet (500 mg) by mouth in the morning and 1 tablet (500 mg) before bedtime. Do all this for 7 days. Do not drink alcohol while taking this medication. 14 tablet 12/25/2024 01/01/2025 Activepolysaccharide iron complex 391 mg oral capsule (20 sources)Start: 10-15-2024 End: 47-09-9604tgjb 1 capsule by mouth once dailyiron polysaccharides (ProFe) 391.3 (180 Fe) MG capsule Indications: Second trimester Take1 capsule (391.3 mg) by mouth Daily 30 capsule 6 10/15/2024 11/14/2024 Active End: 64-16-2293cqqg 1 capsule by mouth once dailyiron polysaccharides (Nu- Iron,Niferex) 150 MG capsule Take 1 capsule by mouth Daily 02/16/2025 Disco ntinuedPrenatal Vit-Fe Fumarate-FA ( VITAMIN PO) (5 sources)take 1 tablet by mouth once dailyPrenatal Vit-Fe Fumarate-FA ( VITAMIN PO) Take 1 tablet by mouth daily 0 Active1 ml promethazine hydrochloride 25 mg/ml injection (1 source)PhenothiazineStart: 04-14-2021 End: 35-93-1360ijgoriyvakur (PHENERGAN) injection 12.5 mgStart: 04-14-2021 End: 83-40-1321nwfrcjfvbzul (PHENERGAN) injection 12.5 mg50 ml sodium chloride 9 mg/ml injection (1 source)Start: 04-14-2021 End: .9 % sodium chloride bolusStart: 04-14-2021 End: .9 % sodium chloride bolusterconazole 4 mg/ml vaginal cream (2 sources)Azole AntifungalStart: 12-25-2024 End: 95-33-5586jvftoolrrjn (Terazol 7) 0.4 % vaginal cream Indications: Yeast infection Insert 1 applicator into the vagina at bedtime for 7 days 45 g 12/25/2024 01/01/2025 Active Completed/Discontinued Medications MedicationDrug Class(es)DatesSig (Normalized)Sig (Original)ceFAZolin 2000 mg injection (1 source)Cephalosporin AntibacterialStart: 05-18-2021 End: 36-05-7962vfKWTblwt (ANCEF) 2000 mg in dextrose 3 % 50 mL IVPB (duplex) docusate sodium 100 mg oral capsule (20 sources)Start: 12-01-2024 End: 58-83-2457jmyx 1 capsule by mouth twice daily as needed for constipation docusate sodium (Colace) 100 MG capsule Indications: Constipation during in third trimester ([facility]) Take 1 capsule (100 mg) by mouth 2 (two) times a day as needed for constipation for up to 60 doses 60 capsule 5 12/01/2024 09/22/2025 DiscontinuedEthinyl Estradiol / Ferrous fumarate / Norethindrone (7 sources)EstrogenStart: 02-16-2025 End: 59-11-0628catc 1 tablet by mouth once daily, then take 1 tablet by mouth once dailynorethindrone-ethinyl estradiol (Junel FE 1/20) 1-20 MG-MCG tablet Indications: 6 weeks follow-up ([facility]) Take 1 tablet by mouth Daily Take 1 tablet by mouth daily 84 tablet 3 510/ DiscontinuedStart: 08-38-3976fhfg 1 tablet by mouth once daily, then take 1 tablet by mouth once dailynorethindrone-ethinyl estradiol (12/15) 1-20 MG-MCG tablet Indications: 6 weeks follow-up ([facility]) Take 1 tablet by mouth Daily Take 1 tablet by mouth daily 84 tablet 3 02/16/2025tiveStart: 02-16-2025 End: 78-19-0114afqw 1 tablet by mouth once daily, then take 1 tablet by mouth once dailynorethindrone-ethinyl estradiol (12/15) 1-20 MG-MCG tablet Indications: 6 weeks follow-up Take 1 tablet by mouth Daily Take 1 tablet by mouth daily 84 tablet 3 02/16/2025 05/11/2025 Active2 ml ondansetron 2 mg/ml injection (1 source)Serotonin-3 Receptor AntagonistStart: 05-18-2021 End: 17-31-6005qzvwuqzsaym (ZOFRAN) injection 4 mg Problems Active Problems Problem ClassificationProblemDateDocumented DateEpisodic/ChronicAbdominal pain (7 sources)Abdominal pain; Translations: [Unspecified abdominal pain]Onset: 06-45-9997GcvgixcqTkgwa bronchitis (2 sources)Acute bronchitis; Translations: [Acute bronchitis, unspecified] 07-97-3647IymskvpvUzxjsaw disorders (1 source)Anxiety disorder, unspecified; Translations: [ANXIETY DISORDER UNSPECIFIED]Onset: 90-04-7064SqiftstErlrhirzrl and other anemia (1 source)Iron deficiency anemia due to blood loss; Translations: [Iron deficiency anemia secondary to blood loss (chronic)]25-49-8120KhazdfaYvybelznaq disorders (1 source)Gastro-esophageal reflux disease without esophagitis; Translations: [GERD WITHOUT ESOPHAGITIS]Onset: 19-47-0890NxgkuvrYnoefepiatgbx and screening for infectious disease (3 sources)Encounter for screening for human papillomavirus (HPV); Translations: [Exposure to sexually transmissible disorder]Onset: 903562-41-6820Xikixamo Menstrual disorders (20 sources)Irregular menstruation, unspecified; Translations: [Missed period] Onset: 64-51-1598OvubucmXixzd complications of (2 sources)Anemia of ; Translations: [Anemia complicating , third trimester]28-30-0397RoxvlxyDhbhi complications of (1 source)Nausea and vomiting; Translations: [Vomiting of , unspecified]EpisodicOther complications of (3 sources)Other specified related conditions, first trimester; Translations: [OTH SPEC PREG RELATEDCOND ]Onset: 78-89-1689ZhzovpcnFvixj complications of (1 source) related conditions, unspecified, first trimester; Translations: [ RELATED COND UNS ]Onset: 74-84-8007VjtfrzkiIvjue complications of (2 sources)Excessive growth affecting management of mother; Translations: [Maternal care for excessive growth, third trimester, not applicable or unspecified]93-10-6623SgfzhobcLwlhk complications of (2 sources)Diseases of the digestive system complicating , third trimester; Translations: [Other current conditions classifiable elsewhere of mother, antepartum condition or complication]53-46-1881MnehvbpvAvarb connective tissue disease (1 source)Swelling of lower limb; Translations: [Other specified soft tissue disorders]EpisodicOther endocrine disorders (2 sources)Polycystic ovary syndrome; Translations: [Polycystic ovarian syndrome]03-77-7548NoeawpyQtvnq inflammatory condition of skin (2 sources)Pruritus, unspecified; Translations: [Unspecified pruritic disorder] 46-69-6897TebtmhdyQtfmo and delivery including normal (20 sources)Intrauterine ; Translations: [Encounter for supervision of other normal , first trimester]Onset: 63-35-0801FbltbvssFhpbd screening for suspected conditions (not mental disorders or infectious disease) (11 sources)Encounter for test, result negative; Translations: [Encounter for screening for malignantneoplasm of cervix]Onset: 07-04-2022 EpisodicOther upper respiratory infections (2 sources)Acute maxillary sinusitis; Translations: [Acute maxillary sinusitis, unspecified]86-06-7409UsbpbsrvKrdgqmspxukulz and other problems of amniotic cavity (2 sources)Premature rupture of membranes with problem; Translations: [Premature rupture of membranes, unspecified as to length of time between rupture and onset of labor, unspecified weeks of gestation]88-24-8552Ufzgawtv Residual codes; unclassified (1 source)8 weeks gestation of ; Translations: [8 WEEKS GESTATION OF ]Onset: 17-73-3582TrcbdxnxThrurjvv codes; unclassified (2 sources)Gestation period, 25 weeks; Translations: [25 weeks gestation of ]10-87-7974BfoxioqgVgmtdyxd codes; unclassified (2 sources)Gestation period, 32 weeks; Translations: [32 weeks gestation of ]99-21-1076CljwkplhQlwywpau codes; unclassified (4 sources)Gestation period, 35 weeks; Translations: [35 weeks gestation of ]51-39-1368AwhjbjivKvoqmpox codes; unclassified (2 sources)Gestation period, 36 weeks; Translations: [36 weeks gestation of ]59-80-5706DvijcxblVwfzlxyb codes; unclassified (2 sources)Gestation period, 37 weeks; Translations: [37 weeks gestation of ]76-18-1049FuicvxuuBwiuukxhgtma (20 sources)OB RemindersOnset: 866223-40-2728 Past or Other Problems Problem ClassificationProblemDateDocumented DateEpisodic/ChronicCardiac dysrhythmias (20 sources)Intermittent palpitations; Translations: [Palpitations]Onset: 852369-62-1619BltnttmiNwejklcjez during ; abruptio placenta; placenta previa (3 sources)Hemorrhage in early , unspecified; Translations: [HEMORRHAGE EARLY UNS]Onset: 25-25-7095HqohybypAyzsvyoumahcm mental health disorders (20 sources)Anxiety about body function or health; Translations: [Other symptoms and signs involving emotional state]Onset: 655073-50-7387Zthnaaye Nonspecific chest pain (4 sources)Chest pain, unspecified; Translations: [CHEST PAIN UNSPECIFIED]Onset: 91-29-0989RgoiwdyhTwidx aftercare (18 sources)Surgical follow-up; Translations: [Encounter for follow-up examination after completed treatment for conditions other than malignant neoplasm]Onset: 329414-60-6312EdfwispqWsczs complications of (20 sources)Reduced movement; Translations: [Decreased movements, unspecified trimester, not applicable or unspecified]Onset: 60-92-3253Azprkzzj Other complications of (1 source)Other specified related conditions, unspecified trimester; Translations: [OTH SPEC PREG RELATED COND UNS TRI]Onset: 28-14-1604ZnuktzitMiofs complications of (1 source)Unspecified infection of urinary tract in , unspecified trimester; Translations: [UNS INF URINARY TRACT PREG UNS TRI]Onset: 10-11-2022 EpisodicOther complications of (1 source)Other mental disorders complicating , unspecified trimester; Translations: [OTH MENTAL D/OCOMP PREG UNS TRI]Onset: 26-51-1167RfkucbvsJlsmo complications of (1 source)Diseases of the digestive system complicating , unspecified trimester; Translations: [DZ DIGESTIVE SYS COMP PREG UNS TRI]Onset: 10-11-2022 EpisodicOther gastrointestinal disorders (1 source)Constipation, unspecified; Translations: [CONSTIPATION UNSPECIFIED] Onset: 29-55-0596NwuqsyotFlxlw gastrointestinal disorders (20 sources)Slow transit constipation; Translations: [Slow transit constipation] Onset: 503171-49-5548QemfnginYrgro injuries and conditions due to external causes (20 sources)Injury of abdomen; Translations: [Unspecified injury of abdomen, initial encounter]Onset: 729345-99-6106LemnrfyrPdthmdq cyst (5 sources)Unspecified ovarian cyst, unspecified side; Translations: [Unspecified ovarian cyst, left side]Onset: 77-78-4356UaahrpexHoecbsiv codes; unclassified (1 source)Weeks of gestation of not specified; Translations: [WEEKS GESTATION NOT SPEC]Onset: 33-15-4638VesfoehxQrnzjgjc codes; unclassified (20 sources)Gestation period, 29 weeks; Translations: [29 weeks gestation of ]Onset: 477472-40-9463JscchdmnAmmslwbtkai (1 source)Complete or unspecified spontaneous without complication; Translations: [COMPLETE/UNS SPONT AB W/O COMP]Onset: 30-79-7966AiiicssnDcqbfgj tract infections (2 sources)Urinary tract infectious disease; Translations: [Urinary tract infection, site not specified]Onset: 22-54-3412Hkqpuddb Results Test NameValueInterpretationReference RangeFacilityUS PELVIC COMPLETE W/ TVon [id number] PELVIC COMPLETE W/ TVFINDINGS: Uterus 12.4 x 3.9 x 4.3 cm Endometrium 7mm Right Ovary 3.6 x 2.8 x 2.4 cm Left Ovary 2.5 x 1.5 x 1.3 cm Slight heterogeneous echotexture upper uterine body and fundus. No myometrial mass. Normal endometrium. Small amount of endocervical fluid. Normal follicular ovaries. No adnexal mass or pelvic fluid. IMPRESSION: No intrauterine mass, small amount of endocervical fluid. TRANSCRIBED BY: ELECTRONICALLY SIGNED BY: Jd Engle MDNormalNot AvailableComment on above:Order Comment: US PELVIS-TRANSVAG IF INDICATED No LMP recorded (within months).HCG ( test) Ql (U)on 09-22-2025 Interpretation and review of laboratory resultsNormalNOMS HealthcarePreg Test, UrNegativeNegativeNOPemiscot Memorial Health SystemsNOOK HealthcareMLR HEMOGLOBIN A1Con 09-22-2025 Glucose [Mass/Vol]103 mg/dLNOPemiscot Memorial Health SystemsHvmcitdihwMiI6a (Bld) [Mass fraction]5.2 %4.5 - 6.2 %NOM[facility] HealthcareComment on above:ADA RECOMMENDED LIMIT 4.0 - 6.0 ADA THERAPEUTIC TARGET < 7.0 ACTION SUGGESTED > 7.0 CLINISYNCNOMS HealthcareALL CBC WITH AUTO DIFFon 47-71-2970FOKAJCSTM ABSOLUTE XCEE8QJRZPemiscot Memorial Health SystemsBasophils/100 WBC (Bld)0.1 %Low0.2 - 2.0 %[facility] Eosinophils/100 WBC (Bld)0.2 %Low0.9 - 7.0 %[facility] HealthcareErythrocyte distribution width (RBC) [Ratio]23.8 %High11.0 - 15.0 %[facility]S HealthcareHematocrit (Bld) [Volume fraction]31.8 %Low36.0 - 48.0 %[facility] HealthcareHemoglobin (Bld) [Mass/Vol]9.8 g/dLLow12.0 - 16.0 g/dLProgress West HospitalIMMATURE GRANULOCYTES ABS AUTO0.14HighNOOK HealthcareImmature granulocytes/100 WBC (Bld)1 %High0.0 - 0.5 % [facility] HealthcareInterpretation and review of laboratory resultsAbnormalHIGHLAND RIDGE HOSPITAL HealthcareLYMPHOCYTES ABSOLUTE AUTO1.6NOMS HealthcareLymphocytes/100 WBC (Bld) 10.8 %Low20.5 - 60.0 %[facility] CenterH (RBC) [Entitic mass]26.6 pgLow26.7 - 34.0 pgMadison Medical CenterHC (RBC) [Mass/Vol]30.8 g/dL29.9 - 35.2 g/dLMadison Medical CenterV (RBC) [Entitic vol]86.4 fL81.0 - 99.0 fLProgress West HospitalMONOCYTES ABSOLUTE AUTO1.1HighNOOK HealthcareMonocytes/100 WBC (Bld)7.8 %1.7 - 12.0 %[facility] HealthcareNEUTROPHILS ABSOLUTE AUTO11.5HighNOOK HealthcareNeutrophils/100 WBC (Bld)80.1 %High43.0 - 75.0 %Progress West HospitalPlatelet mean volume (Bld) [Entitic vol]10.4 fL9.5 - 13.5 fLProgress West HospitalTBH EO #0NOMS [facility] HospitalTB [id number] Hospital St. John's RBC3.68LowNOMercy Hospital St[address] John's WBC14.3HighHIGHLAND RIDGE HOSPITAL HealthcareCLINISYNC [facility] HealthcareALL CBC WITH AUTO DIFFon 29-52-5299EHOCCTMRF ABSOLUTE XFHN8TCDN HealthcareBasophils/100 WBC (Bld)0.2 %0.2 - 2.0 %NOM HealthcareEosinophils/100 WBC (Bld)0.4 %Low0.9 - 7.0 %[facility] HealthcareErythrocyte distribution width (RBC) [Ratio]23.8 %High11.0 - 15.0 %[facility] HealthcareHematocrit (Bld) [Volume fraction] 37.7 %36.0 - 48.0 %[facility] HealthcareHemoglobin (Bld) [Mass/Vol]12.1 g/dL12.0 - 16.0 g/dLProgress West HospitalIMMATURE GRANULOCYTES ABS AUTO0.09HighProgress West Hospital Immature granulocytes/100 WBC (Bld)0.9 %High0.0 - 0.5 %[facility] Interpretation and review of laboratory resultsAbnormalProgress [facility] Hospital LYMPHOCYTES ABSOLUTE AUTO1.2NOMS [facility] HospitalLymphocytes/100 WBC (Bld)12 %Low20.5 - 60.0 %[facility] CenterH (RBC) [Entitic mass]27.4 pg26.7 - 34.0 pgMadison Medical CenterHC (RBC) [Mass/Vol]32.1 g/dL29.9 - 35.2 g/dLMadison Medical CenterV (RBC) [Entitic vol]85.3 fL81.0 - 99.0 fLProgress West HospitalMONOCYTES ABSOLUTE AUTO0.6NOPemiscot Memorial Health SystemsMonocytes/100 WBC (Bld)6.4 %1.7 - 12.0 %[facility] HospitalNEUTROPHILS ABSOLUTE AUTO7.6HighProgress West HospitalNeutrophils/100 WBC (Bld)80.1 %High43.0 - 75.0 %[facility] HospitalPlatelet mean volume (Bld) [Entitic vol]10.7 fL9.5 - 13.5 fLProgress West HospitalTBH EO #0NOPemiscot Memorial Health SystemsTB [id number] Hospital St. John's RBC4.42 Progress West HospitalComment on above:2+ ANISOCYTOSISTBH WBC9.6[facility] CLINISYNCProgress West HospitalUS OB LIMITED 1+ FETUSESon [id number] OB LIMITED 1+ FETUSESTITLE OF EXAM: OB [...] Delivery: 01/22/25 Gestational Age as of 01/05/2025: 19u5qDxtsepysha macro (dipstick) panel (U)on 78-00-1853Vggnncdbu, UANegativeNegative - 4(70) +++ mg/dLNOMS HealthcareBlood, UANegativeNegative - 50 Cleve/mcLNOMS HealthcareClarity, UAClearNOMS Healthcare Color, UAYellowNOMS HealthcareGlucose, UANegativeNegative - 2000(110) ++++ mg/dL N[facility] HealthcareInterpretation and review of laboratory resultsAbnormalNOMS HealthcareKetones, UANegativeNegative - 160(16) ++++ mg/dLNOMS Healthcare Leukocytes, UATraceNegative - 500+++ Arun/mcLNOMS HealthcareNitrite, UANegative Negative - PositiveNOMS HealthcarepH, UA65 - 9NOMS HealthcareProtein, UATrace Negative - 2000(20) ++++ mg/dLNOMS HealthcareSpec Grav, UA1.0251 - 1.03NOMS HealthcareUrobilinogen, UA0.20.2 - 12 mg/dLNOMS HealthcareNOMS Healthcare Urinalysis macro (dipstick) panel (U)on 19-49-7047Bkyzluxsz, UANegativeNegative - 4(70) +++ mg/dLNOMS HealthcareBlood, UANegativeNegative - 50 Cleve/mcLNOMS HealthcareClarity, UAClearNOMS HealthcareColor, UAYellowNOMS HealthcareGlucose, UANegativeNegative - 2000(110) ++++ mg/dLNOMS HealthcareInterpretation and review of laboratory resultsAbnormalNOMS HealthcareKetones, UANegativeNegative - 160(16) ++++ mg/dLNOMS HealthcareLeukocytes, UAPositiveNegative - 500+++ Arun/mcL NOMS HealthcareNitrite, UANegativeNegative - PositiveNOMS HealthcarepH, UA75 - 9 NOMS HealthcareProtein, UANegativeNegative - 1999(20) ++++ mg/dLNOMS Healthcare Spec Grav, UA1.021 - 1.03NOMS HealthcareUrobilinogen, UA0.20.2 - 12 mg/dLNOMS HealthcareNOMS HealthcareALL MISCELLANEOUS TESTon [id number] TEST COMMENT.NOMS HealthcareComment on above:Test Ordered: [id number] Strep Gp B Culture+Rflx Strep Gp B Culture+Rflx Negative CB Reference Range: Negative Centers for Disease Control and Prevention (CDC) and [place] [employer] of Obstetricians and Gynecologists (ACOG) guidelines [...] resistance to clindamycin is noted. Performed at: [facility] [id number] Consumer Studies Professor: Angel Vinson PhD, Phone: [phone] GROUP B STREP [id number] Group B Streptococcus Colonization Detection Culture With Re CLINISYNCNOOK HealthcareUrinalysis macro (dipstick) panel (U)on 12-24-2024 Bilirubin, UANegativeNegative - 4(70) +++ mg/dLNOMS HealthcareBlood, UANegative Negative - 50 Cleve/mcLNOMS HealthcareClarity, UAClearNOMS HealthcareColor, UA YellowNOMS HealthcareGlucose, UANegativeNegative - 2000(110) ++++ mg/dLNOMS HealthcareInterpretation and review of laboratory resultsAbnormalNOMS Healthcare Ketones, UANegativeNegative - 160(16) ++++ mg/dLNOMS HealthcareLeukocytes, UA NegativeNegative - 500+++ Arun/mcLNOMS HealthcareNitrite, UANegativeNegative - PositiveNOMS HealthcarepH, UA75 - 9NOMS HealthcareProtein, UATraceNegative - 2000(20) ++++ mg/dLProgress West HospitalSpec Grav, UA1.0251 - 1.03NOPemiscot Memorial Health Systems Urobilinogen, UA0.20.2 - 12 mg/dLNovant Health New Hanover Orthopedic HospitalHMHP LIVER PANEL on 45-28-7469Conmsoe [Mass/Vol]2.5 g/dLLow3.4 - 5.0 g/dLProgress West HospitalALBUMIN GLOBULIN RATIO0.6Progress West HospitalALP [Catalytic activity/Vol]81 U/L46 - 116 U/L [facility] HealthcareALT [Catalytic activity/Vol]11 U/LLow14 - 59 U/LNOMS Healthcare AST [Catalytic activity/Vol]9 U/LLow15 - 37 U/LNOMS HealthcareBilirubin [Mass/Vol]0.2 mg/dL0.2 - 1.0 mg/dLProgress West HospitalBilirubin.indirect [Mass/Vol] mg/dL0.0 - 0.2 mg/dLProgress West HospitalGlobulin (S) [Mass/Vol]4.2 g/dLProgress West HospitalInterpretation and review of laboratory resultsAbMcLaren Bay Region Protein [Mass/Vol]6.7 g/dL6.4 - 8.2 g/dLProgress West HospitalCLINISYNCNLakeland Regional Hospital ALL CBC WITH AUTO DIFFon [id number] ABSOLUTE YCIU7BYNBPemiscot Memorial Health Systems Basophils/100 WBC (Bld)0.2 %0.2 - 2.0 %[facility] HospitalEosinophils/100 WBC (Bld) 0.5 %Low0.9 - 7.0 %[facility] HospitalErythrocyte distribution width (RBC) [Ratio] 22.8 %High11.0 - 15.0 %[facility] HospitalHematocrit (Bld) [Volume fraction]34.8 % Low36.0 - 48.0 %[facility] HospitalHemoglobin (Bld) [Mass/Vol]10.5 g/dLLow12.0 - 16.0 g/dLProgress West HospitalIMMATURE GRANULOCYTES ABS AUTO0.11HighProgress West Hospital Immature granulocytes/100 WBC (Bld)1.1 %High0.0 - 0.5 %[facility] Interpretation and review of laboratory resultsAbMcLaren Bay Region LYMPHOCYTES ABSOLUTE AUTO1.5NOMS HealthcareLymphocytes/100 WBC (Bld)14.6 %Low 20.5 - 60.0 %[facility] CenterH (RBC) [Entitic mass]25.1 pgLow26.7 - 34.0 pgMadison Medical CenterHC (RBC) [Mass/Vol]30.2 g/dL29.9 - 35.2 g/dLMadison Medical CenterV (RBC) [Entitic vol]83.1 fL81.0 - 99.0 fLProgress West HospitalMONOCYTES ABSOLUTE AUTO0.6NOOK HealthcareMonocytes/100 WBC (Bld)5.6 %1.7 - 12.0 %[facility] HealthcareNEUTROPHILS ABSOLUTE AUTO7.9HighHIGHLAND RIDGE HOSPITAL HealthcareNeutrophils/100 WBC (Bld)78 %High43.0 - 75.0 %[facility] HospitalPlatelet mean volume (Bld) [Entitic vol]10.5 fL9.5 - 13.5 fLProgress West HospitalTBH EO #0.1NOMS HealthcareTBH [id number] Memorial Health SystemsTBH RBC4.19LowHIGHLAND RIDGE HOSPITAL HealthcareComment on above:2+ ANISOCYTOSISTBH WBC10.1NOMS HealthcareCLINISYNC Progress West HospitalUS OB FOLLOW UP TRANSABDOMINAL APPROACHon [id number] OB FOLLOW UP TRANSABDOMINAL APPROACHTITLE OF EXAM: OB Ultrasound: REASON FOR EXAM: LGA. COMPARISON: None TECHNIQUE: Grayscale and M-mode Doppler imaging is performed. FINDINGS: heart rate: 165 bpm BABAK: 16.1 cm (8.4-24.4) BPD: 8.2 cm HC: 30.1 cm AC: 29.1 cm FL: 6.2 cm GA for sonogram: 32.9 wk (29.9-35.9) BELL: 01/22/2025 Weight Estimate: Weight: 2063 gm / 4 lbs, 8 oz (2423-7561 gm) [place] Normal: 2072 gm (5001-2353 gm) [place] Wt%: 49% for 32.6 wks [...] report is generated using voice recognition reporting (Benefittere). On occasion PowerScribe erroneously drops words from the report or replaces the spoken word with similar sounding words. Please call with any questions/concerns regarding this report.* Dictated and transcribed 12/01/24/dpd This report has been electronically signed and approved by the interpreting radiologist.NormalNot AvailableComment on above:Order Comment: US OB SCAN FOR GROWTH Estimated Date of Delivery: 01/22/25 Gestational Age as of 11/12/2024: 89g5nNlvgglsyhu macro (dipstick) panel (U)on 02-38-8714Ybvltxibx, UANegativeNegative - 4(70) +++ mg/dLNOMS HealthcareBlood, UANegativeNegative - 50 Cleve/mcLNOMS HealthcareClarity, UAClearNOMS Healthcare Color, UAYellowNOMS HealthcareGlucose, UANegativeNegative - 2000(110) ++++ mg/dL N[facility] HealthcareInterpretation and review of laboratory resultsAbnormalNOMS HealthcareKetones, UANegativeNegative - 160(16) ++++ mg/dLNOMS Healthcare Leukocytes, UAPositiveNegative - 500+++ Arun/mcLNOMS HealthcareComment on above: smallNitrite, UANegativeNegative - PositiveNOMS HealthcarepH, UA75 - 9NOMS HealthcareProtein, UATraceNegative - 2000(20) ++++ mg/dLNOMS HealthcareSpec Grav, UA1.021 - 1.03NOMS HealthcareUrobilinogen, UA0.20.2 - 12 mg/dLNOMS HealthcareNOMS HealthcareCCF FERRITINon 79-19-9074Qnxxeydq [Mass/Vol]4 ng/mLLow 8.0 - 252.0 ng/mLNOMS HealthcareInterpretation and review of laboratory results AbnormalNOMS HealthcareCLINISYNCNOMS HealthcareALL CBC WITH AUTO DIFFon 91-71-2230SVGIGQLPP ABSOLUTE ZFPL9OBXM HealthcareBasophils/100 WBC (Bld)0.2 %0.2 - 2.0 %NOMS HealthcareEosinophils/100 WBC (Bld)0.6 %Low0.9 - 7.0 %NOMS HealthcareErythrocyte distribution width (RBC) [Ratio]15.1 %High11.0 - 15.0 % NOM HealthcareHematocrit (Bld) [Volume fraction]30.1 %Low36.0 - 48.0 %[facility] HospitalHemoglobin (Bld) [Mass/Vol]9.2 g/dLLow12.0 - 16.0 g/dLProgress West Hospital IMMATURE GRANULOCYTES ABS AUTO0.08HighNOPemiscot Memorial Health SystemsImmature granulocytes/100 WBC (Bld)0.6 %High0.0 - 0.5 %[facility] HospitalInterpretation and review of laboratory resultsAbnormalNOPemiscot Memorial Health SystemsLYMPHOCYTES ABSOLUTE AUTO2.1NOMS [facility] HospitalLymphocytes/100 WBC (Bld)17.2 %Low20.5 - 60.0 %[facility] HospitalMCH (RBC) [Entitic mass]24.8 pgLow26.7 - 34.0 pgMadison Medical CenterHC (RBC) [Mass/Vol] 30.6 g/dL29.9 - 35.2 g/dLProgress West HospitalMCV (RBC) [Entitic vol]81.1 fL81.0 - 99.0 fLProgress West HospitalMONOCYTES ABSOLUTE AUTO0.8NOMS HealthcareMonocytes/100 WBC (Bld)6.2 %1.7 - 12.0 %[facility] HospitalNEUTROPHILS ABSOLUTE AUTO9.3HighNOPemiscot Memorial Health SystemsNeutrophils/100 WBC (Bld)75.2 %High43.0 - 75.0 %[facility] Platelet mean volume (Bld) [Entitic vol]10.5 fL9.5 - 13.5 fLProgress West HospitalTBH EO #0.1NOMS [facility] HospitalTB TQG195SALEMercy Hospital St. John's RBC3.71LowNOMercy Hospital St[address] John's WBC12.4HighProgress West HospitalCLINISYNCNLakeland Regional HospitalALL CBC WITH AUTO DIFFon 20-78-5405HXHBLFVCA ABSOLUTE ITIK6PNSQ HealthcareBasophils/100 WBC (Bld)0.2 %0.2 - 2.0 %[facility] HealthcareEosinophils/100 WBC (Bld)0.7 %Low0.9 - 7.0 %[facility] HospitalErythrocyte distribution width (RBC) [Ratio]14.5 %11.0 - 15.0 %[facility] HospitalHematocrit (Bld) [Volume fraction]31.2 %Low36.0 - 48.0 %[facility] HospitalHemoglobin (Bld) [Mass/Vol]9.6 g/dLLow12.0 - 16.0 g/dLProgress [facility] Hospital IMMATURE GRANULOCYTES ABS AUTO0.1HighProgress West HospitalImmature granulocytes/100 WBC (Bld)0.8 %High0.0 - 0.5 %[facility] HospitalInterpretation and review of laboratory resultsAbnormalProgress West HospitalLYMPHOCYTES ABSOLUTE AUTO1.9NOPemiscot Memorial Health SystemsLymphocytes/100 WBC (Bld)14.8 %Low20.5 - 60.0 %Madison Medical CenterH (RBC) [Entitic mass]25.7 pgLow26.7 - 34.[address] (RBC) [Mass/Vol] 30.8 g/dL29.9 - 35.2 g/dLMadison Medical CenterV (RBC) [Entitic vol]83.6 fL81.0 - 99.0 fLProgress West HospitalMONOCYTES ABSOLUTE AUTO0.7[facility] HospitalMonocytes/100 WBC (Bld)5.4 %1.7 - 12.0 %[facility] HospitalNEUTROPHILS ABSOLUTE XSBS94JhlhZEFE HealthcareNeutrophils/100 WBC (Bld)78.1 %High43.0 - 75.0 %[facility] Platelet mean volume (Bld) [Entitic vol]10.4 fL9.5 - 13.5 fLProgress West HospitalTBH EO #0.1NOMS [facility] HospitalTB MUE801GAOQMercy Hospital St. John's RBC3.73LowHCA Midwest Division WBC12.8HighProgress West HospitalCLINISYNCNLakeland Regional HospitalUrinalysis macro (dipstick) panel (U)on 81-33-5818Brbiplxzh, UANegativeNegative - 4(70) +++ mg/dLHIGHLAND RIDGE [facility]OSPITAL HealthcareBlood, UANegativeNegative - 50 Cleve/mcLNOOK HealthcareClarity, UAClear NOM HealthcareColor, UAYellowNOOK HealthcareGlucose, UANegativeNegative - 2000(110) ++++ mg/dLHIGHLAND RIDGE HOSPITAL HealthcareInterpretation and review of laboratory resultsAbnormalHIGHLAND RIDGE HOSPITAL HealthcareKetones, UANegativeNegative - 160(16) ++++ mg/dL [facility] HealthcareLeukocytes, UAPositiveNegative - 500+++ Arun/mcLNOOK Healthcare Comment on above:smallNitrite, UANegativeNegative - PositiveNOMS HealthcarepH, UA7.55 - 9NOMS HealthcareProtein, UANegativeNegative - 2000(20) ++++ mg/dLNOOK HealthcareSpec Grav, UA1.0151 - 1.03NOMS HealthcareUrobilinogen, UA0.20.2 - 12 mg/dLNOOK HealthcareNOMS HealthcareNo Panel InformationOrdered By: Radiologist Radiology on 97-71-2830NWVZProgress West Hospital Work Phone: No Panel Informationon 39-71-8398Zgcubnlfb Study observation (narrative)NOM HealthcareUS OB ANATOMYon 76-07-8262[place] [address] Ultrasound Report Signed Patient: ERIKA GRIDER MR#: [id number] : 1995 Acct:[id number] Age/Sex: 29 / F ADM Date: 09/04/24 Loc: [facility] Attending Dr: Clyde Nelson D.O. Ordering Physician: Clyde Nelson D.O. Date of Service: 09/04/24 Procedure(s): US OB anatomy Accession Number(s): [id number] cc: Clyde Nelson D.O.; Physician,Non-Staff [employer] [facility] [place] [id number] Patient Name: ERIKA GRIDER MRN: [id number] date: 1995 Sex: F Assigned Patient Location: [facility] Current Patient Location: Accession/Order Number: [id number] Exam Date: 09/04/2024 11:09 Report Date: 09/05/2024 04:08 At the request of: CLYDE NELSON Procedure: US OB anatomy EXAMINATION: US OB anatomy, US OB cervical length HISTORY: ANATOMY COMPARISON: Ultrasound OB transvaginal 06/19/2024 TECHNIQUE: Transabdominal sonographic examination was performed for obstetrical and evaluation. FINDINGS: Number: 1 Heart Rate: 140 bpm Amniotic Fluid Volume: Subjectively normal Placental Location: POSTERIOR with lower margin 3.2 cm from os. Cervix Length: 4.43 cm ; closed. ANATOMY: Normal Structures -cerebellum, choroid plexus, cisterna magna, lateral cerebral ventricles, orbits, midline falx, hard palate, four-chamber heart, RVOT, LVOT, stomach, kidneys, bladder, umbilical cord insertion into abdomen, three-vessel cord, cervical spine, thoracic spine, lumbar spine, sacral spine, right upper extremity, left upper extremity, right lower extremity, left lower extremity. SUBOPTIMALLY SEEN: None ABNORMALITIES: None BIOMETRY: BPD: 4.38 cm; 19 weeks 2 days; 20.10 % HC: 16.98 cm; 19 weeks 4 days; 24.10 % AC: 14.48 cm; 19 weeks 6 days; 37.50 % FL: 3.30 cm; 20 weeks 2 days; 54 % EFW:299.33 g; 43.50 % FL/AC: 22.79 FL/BPD: 75.34 HC/AC: 1.17 GESTATIONAL AGE: Age by EDC: 20 weeks 0 days Age by current US: 19 weeks 5 days BELL by current US: 2025-01-24 BELL by EDC: 2025-01-22 US/US OB anatomy IMPRESSION: 1. Single live intrauterine with growth detailed above. Electronically authenticated by: ROXY TOBIAS Date: 09/05/2024 04:08 Dictated By: Roxy Tobias M.D. Signed By: 09/05/24 0412 DD/ 0408 TD/TT: Gyro Compass Tester:TBHRadiology, Radiologist, MD - 09/05/2024 [place] [address] Ultrasound Report Signed Patient: ERIKA GRIDER MR#: [id number] : 1995 Acct:[id number] Age/Sex: 29 / F ADM Date: 09/04/24 Loc: [facility] Attending Dr: Clyde Nelson D.O. Ordering Physician: Clyde Nelson D.O. Date of Service: 09/04/24 Procedure(s): US OB anatomy Accession Number(s): [id number] cc: Clyde Nelson D.O.; Physician,Non-Staff [place] [facility] [place] [id number] Patient Name: ERIKA GRIDER MRN: [id number] date: 1995 Sex: F Assigned Patient Location: [facility] Current Patient Location: Accession/Order Number: [id number] Exam Date: 09/04/2024 11:09 Report Date: 09/05/2024 04:08 At the request of: CLYDE NELSON Procedure: US OB anatomy EXAMINATION: US OB anatomy, US OB cervical length HISTORY: ANATOMY COMPARISON: Ultrasound OB transvaginal 06/19/2024 TECHNIQUE: Transabdominal sonographic examination was performed for obstetrical and evaluation. FINDINGS: Number: 1 Heart Rate: 140 bpm Amniotic Fluid Volume: Subjectively normal Placental Location: POSTERIOR with lower margin 3.2 cm from os. Cervix Length: 4.43 cm ; closed. ANATOMY: Normal Structures -cerebellum, choroid plexus, cisterna magna, lateral cerebral ventricles, orbits, midline falx, hard palate, four-chamber heart, RVOT, LVOT, stomach, kidneys, bladder, umbilical cord insertion into abdomen, three-vessel cord, cervical spine, thoracic spine, lumbar spine, sacral spine, right upper extremity, left upper extremity, right lower extremity, left lower extremity. SUBOPTIMALLY SEEN: None ABNORMALITIES: None BIOMETRY: BPD: 4.38 cm; 19 weeks 2 days; 20.10 % HC: 16.98 cm; 19 weeks 4 days; 24.10 % AC: 14.48 cm; 19 weeks 6 days; 37.50 % FL: 3.30 cm; 20 weeks 2 days; 54 % EFW:299.33 g; 43.50 % FL/AC: 22.79 FL/BPD: 75.34 HC/AC: 1.17 GESTATIONAL AGE: Age by EDC: 20 weeks 0 days Age by current US: 19 weeks 5 days BELL by current US: 2025-01-24 BELL by EDC: 2025-01-22 US/US OB anatomy IMPRESSION: 1. Single live intrauterine with growth detailed above. Electronically authenticated by: ROXY TOBIAS Date: 09/05/2024 04:08 Dictated By: Roxy Tobias M.D. Signed By: 09/05/24411 DD/ 7 TD/TT: Gyro Compass Tester: SIMON Tavares OB CERVICAL LENGTHon 91-26-2700[place], [place] [address] Ultrasound Report Signed Patient: ERIKA GRIDER MR#: [id number] : 1995 Acct:[id number] Age/Sex: 29 / F ADM Date: 09/04/24 [facility]: [facility] Attending Dr: Clyde Nelson D.O. Ordering Physician: Clyde Nelson D.O. Date of Service: 09/04/24 Procedure(s): US OB cervical length Accession Number(s): [id number] cc: Clyde Nelson D.O.; Physician,Non-Staff [place] [address] Patient Name: ERIKA GRIDER MRN: [id number] date: 1995 Sex: F Assigned Patient Location: [facility] Current Patient Location: Accession/Order Number: [id number] Exam Date: 09/04/2024 11:09 Report Date: 09/05/2024 04:08 At the request of: CLYDE NELSON Procedure: US OB cervical length EXAMINATION: US OB anatomy, US OB cervical length HISTORY: ANATOMY COMPARISON: Ultrasound OB transvaginal 06/19/2024 TECHNIQUE: Transabdominal sonographic examination was performed for obstetrical and evaluation. FINDINGS: Number: 1 Heart Rate: 140 bpm Amniotic Fluid Volume: Subjectively normal Placental Location: POSTERIOR with lower margin 3.2 cm from os. Cervix Length: 4.43 cm ; closed. ANATOMY: Normal Structures -cerebellum, choroid plexus, cisterna magna, lateral cerebral ventricles, orbits, midline falx, hard palate, four-chamber heart, RVOT, LVOT, stomach, kidneys, bladder, umbilical cord insertion into abdomen, three-vessel cord, cervical spine, thoracic spine, lumbar spine, sacral spine, right upper extremity, left upper extremity, right lower extremity, left lower extremity. SUBOPTIMALLY SEEN: None ABNORMALITIES: None BIOMETRY: BPD: 4.38 cm; 19 weeks 2 days; 20.10 % HC: 16.98 cm; 19 weeks 4 days; 24.10 % AC: 14.48 cm; 19 weeks 6 days; 37.50 % FL: 3.30 cm; 20 weeks 2 days; 54 % EFW:299.33 g; 43.50 % FL/AC: 22.79 FL/BPD: 75.34 HC/AC: 1.17 GESTATIONAL AGE: Age by EDC: 20 weeks 0 days Age by current US: 19 weeks 5 days BELL by current US: 2025-01-24 BELL by EDC: 2025-01-22 US/US OB cervical length IMPRESSION: 1. Single live intrauterine with growth detailed above. Electronically authenticated by: ROXY TOBIAS Date: 09/05/2024 04:08 Dictated By: Roxy Tobias M.D. Signed By: 09/05/24 0412 DD/ 0408 TD/TT: Gyro Compass Tester:TBHRadiology, Radiologist, MD - 09/05/2024 [place] [address] Ultrasound Report Signed Patient: ERIKA GRIDER MR#: [id number] : 1995 Acct:[id number] Age/Sex: 29 / F ADM Date: 09/04/24 Loc: [facility] Attending Dr: Clyde Nelson D.O. Ordering Physician: Clyde Nelson D.O. Date of Service: 09/04/24 Procedure(s): US OB cervical length Accession Number(s): [id number] cc: Clyde Nelson D.O.; Physician,Non-Staff [place] [facility] [place] [id number] Patient Name: ERIKA GRIDER MRN: [id number] date: 1995 Sex: F Assigned Patient Location: [facility] Current Patient Location: Accession/Order Number: [id number] Exam Date: 09/04/2024 11:09 Report Date: 09/05/2024 04:08 At the request of: CLYDE LESLIE Procedure: US OB cervical length EXAMINATION: US OB anatomy, US OB cervical length HISTORY: ANATOMY COMPARISON: Ultrasound OB transvaginal 06/19/2024 TECHNIQUE: Transabdominal sonographic examination was performed for obstetrical and evaluation. FINDINGS: Number: 1 Heart Rate: 140 bpm Amniotic Fluid Volume: Subjectively normal Placental Location: POSTERIOR with lower margin 3.2 cm from os. Cervix Length: 4.43 cm ; closed. ANATOMY: Normal Structures -cerebellum, choroid plexus, cisterna magna, lateral cerebral ventricles, orbits, midline falx, hard palate, four-chamber heart, RVOT, LVOT, stomach, kidneys, bladder, umbilical cord insertion into abdomen, three-vessel cord, cervical spine, thoracic spine, lumbar spine, sacral spine, right upper extremity, left upper extremity, right lower extremity, left lower extremity. SUBOPTIMALLY SEEN: None ABNORMALITIES: None BIOMETRY: BPD: 4.38 cm; 19 weeks 2 days; 20.10 % HC: 16.98 cm; 19 weeks 4 days; 24.10 % AC: 14.48 cm; 19 weeks 6 days; 37.50 % FL: 3.30 cm; 20 weeks 2 days; 54 % EFW:299.33 g; 43.50 % FL/AC: 22.79 FL/BPD: 75.34 HC/AC: 1.17 GESTATIONAL AGE: Age by EDC: 20 weeks 0 days Age by current US: 19 weeks 5 days BELL by current US: 2025-01-24 BELL by EDC: 2025-01-22 US/US OB cervical length IMPRESSION: 1. Single live intrauterine with growth detailed above. Electronically authenticated by: ROXY TOBIAS Date: 09/05/2024 04:08 Dictated By: Roxy Tobias M.D. Signed By: 09/05/24 0412 DD/ 0408 TD/TT: Gyro Compass Tester: SIMON Daniels, SERUM, OPEN SPINA BIFIDAon 32-26-4344NSX MOM0.93.[facility]OMS HealthcareAFP VALUE37.4 ng/mL.NOMS HealthcareCOMMENT:Comment.[facility] Healthcare Comment on above:Emperatriz Ward, Ph.D., [facility] Director References: Available Upon Request. Multiples Of Median Cutoffs For AFP Elevations Wahl 2.5 Black 2.8 IDD 2.0 Twins 4.5 Abbreviation Definitions IDD - Insulin Dep Diabetes OSBR - Open Spina Bifida Risk For further inquiries contact [facility] at [phone]. This test was developed and its performance characteristics determined by [employer]. It has not been cleared or approved by the Food and Drug Administration. Performed at: [facility] [address], [place] [id number] Consumer Studies Professor: Ginny Brownlee [facility], Phone: [phone] GEST. AGE ON COLLECTION DATE17.6. weeksNOOK HealthcareGESTAT. AGE BASED ON Ultrasound.[facility] HospitalComment on above:13.6 on 07/21/2024 Recalculations are not recommended when gestational dating by LMP and ultrasound are within 10 days. INSULIN DEP DIABETESNo.[facility] HealthcareINTERPRETATIONComment.[facility] Comment on above:Interpretation: Screen Negative This result [...] Customer Services to discuss available options. The [employer] recommends amniocentesis be offered to women age 35 and older. MATERNAL AGE AT EDD31.0. yrNOOK HealthcareMULTIPLE GESTATIONNo.[facility] OSBR RISK 1 [id number].[facility] HealthcareRACECaucasian.[facility] HealthcareRESULTSReport. [facility] HealthcareTEST RESULTS:Negative.Progress West HospitalRhwmkppkpaVEKQYX170. lbsNOOK HealthcarePREGNANCY N N ULTRASOUND [id number] 4 13 N 1 Y 153 N N N N N White/ CLINISYNCNOOK HealthcareLaboratory - Microbiology and Antimicrobial susceptibilityon 23-51-3596MYNA-CoV-2 (COVID-19) RNA ARI+probe Ql (Unsp spec) NegativeNOPemiscot Memorial Health SystemsNo Panel Informationon 06-99-2818PLN ANegativeNOMS HealthcareFLU BNegativeNOMS HealthcareInterpretation and review of laboratory resultsNormalNOMS HealthcareNOMS HealthcareUrinalysis macro (dipstick) panel (U) on 44-95-9165Pbqcdrghm, UANegativeNegative - 4(70) +++ mg/dLNOMS Healthcare Blood, UANegativeNegative - 50 Cleve/mcLNOMS HealthcareClarity, UAClearNOMS HealthcareColor, UAYellowNOMS HealthcareGlucose, UANegativeNegative - 2000(110) ++++ mg/dLNOMS HealthcareInterpretation and review of laboratory resultsAbnormal N[facility]S HealthcareKetones, UAPositiveNegative - 160(16) ++++ mg/dLNOMS Healthcare Comment on above:traceLeukocytes, UATraceNegative - 500+++ Arun/mcLNOMS HealthcareNitrite, UANegativeNegative - PositiveNOMS HealthcarepH, UA7.55 - 9 N[facility] HealthcareProtein, UANegativeNegative - 2000(20) ++++ mg/dLNOMS Healthcare Spec Grav, UA1.0251 - 1.03NOMS HealthcareUrobilinogen, UA0.20.2 - 12 mg/dLNOMS HealthcareNOMS HealthcareUS OB TRANSVAGINALon 02-26-5662[place], [place] [address] Ultrasound Report Signed Patient: ERIKA GRIDER MR#: [id number] : 1995 Acct:[id number] Age/Sex: 29 / F ADM Date: 06/19/24 Loc: [facility] Attending Dr: Clyde Nelson D.O. Ordering Physician: Clyde Nelson D.O. Date of Service: 06/19/24 Procedure(s): US OB transvaginal Accession Number(s): [id number] cc: JAMILA VELEZ Corey D.O. The [address] [address] Patient Name: ERIKA GRIDER MRN: [id number] date: 1995 Sex: F Assigned Patient Location: [facility] Current Patient Location: [facility] Accession/Order Number: [id number] Exam Date: 06/19/2024 13:24 Report Date: 06/19/2024 14:13 At the request of: CLYDE NELSON Procedure: US OB transvaginal EXAMINATION: US OB transvaginal HISTORY: MISSED MENSES COMPARISON: No relevant comparison available. FINDINGS: Wahl intrauterine gestation Gestational sac: 3.66 cm, 8 weeks 6 days CRL: 2.34 cm, 9 weeks 0 days Yolk sac: 3.6 mm. Heart rate: 176 bpm Uterus is normal, anteverted, anteflexed The ovaries are not visualized The cervix is closed, 4.2 cm Clinical age: Unknown Ultrasound age: 9 weeks 0 days Ultrasound BELL: 01/22/2025 US/US OB transvaginal IMPRESSION: Viable wahl intrauterine gestation measuring 9 weeks 0 days Electronically authenticated by: AMNA BRADSHAW Date: 06/19/2024 14:13 Dictated By: Amna Bradshaw M.D. Signed By: 06/19/24 1415 DD/ 1413 TD/TT: Gyro Compass Tester:TBHRadiology, Radiologist, MD - 06/19/2024 [place] [address] Ultrasound Report Signed Patient: ERIKA GRIDER MR#: [id number] : 1995 Acct:[id number] Age/Sex: 29 / F ADM Date: 06/19/24 Loc: [facility] Attending Dr: Clyde Nelson D.O. Ordering Physician: Clyde Nelson D.O. Date of Service: 06/19/24 Procedure(s): US OB transvaginal Accession Number(s): [id number] cc: JAMILA VELEZ Corey D.O. The [address] [address] Patient Name: ERIKA GRIDER MRN: [id number] date: 1995 Sex: F Assigned Patient Location: [facility] Current Patient Location: [facility] Accession/Order Number: [id number] Exam Date: 06/19/2024 13:24 Report Date: 06/19/2024 14:13 At the request of: CLYDE NELSON Procedure: US OB transvaginal EXAMINATION: US OB transvaginal HISTORY: MISSED MENSES COMPARISON: No relevant comparison available. FINDINGS: Wahl intrauterine gestation Gestational sac: 3.66 cm, 8 weeks 6 days CRL: 2.34 cm, 9 weeks 0 days Yolk sac: 3.6 mm. Heart rate: 176 bpm Uterus is normal, anteverted, anteflexed The ovaries are not visualized The cervix is closed, 4.2 cm Clinical age: Unknown Ultrasound age: 9 weeks 0 days Ultrasound BELL: 01/22/2025 US/US OB transvaginal IMPRESSION: Viable wahl intrauterine gestation measuring 9 weeks 0 days Electronically authenticated by: AMNA BRADSHAW Date: 06/19/2024 14:13 Dictated By: Amna Bradshaw M.D. Signed By: 06/19/24 1415 DD/ 141 TD/TT: Gyro Compass Tester: SIMON HealthcareRadiology Study observation (narrative)[facility] HospitalUS OB TRANSVAGINALOrdered By: Radiologist Radiology on 40-36-7718ZILB [employer] Work Phone: US PELVIS TRANSVAGINALon 49-72-4255[place], [place] [address] Ultrasound Report Signed Patient: ERIKA GRIDER MR#: [id number] : 1995 Acct:[id number] Age/Sex: 29 / F ADM Date: 04/09/24 Loc: [facility] Attending Dr: Clyde Nelson D.O. Ordering Physician: Clyde Nelson D.O. Date of Service: 04/09/24 Procedure(s): US pelvis transvaginal Accession Number(s): [id number] cc: JAMILA VELEZ ; Clyde Nelson D.O. The [address] [address] Patient Name: ERIKA GRIDER MRN: [id number] date: 1995 Sex: F Assigned Patient Location: [facility] Current Patient Location: LAB Accession/Order Number: [id number] Exam Date: 04/09/2024 11:45 Report Date: 04/09/2024 13:22 At the request of: CLYDE NELSON Procedure: US pelvis transvaginal EXAMINATION: US pelvis transvaginal HISTORY: MISSED MENSES COMPARISON: No relevant comparison available. FINDINGS: Transvaginal images No intrauterine or ectopic The uterus is normal in size, contour and myometrial echotexture measuring 10.1 x 4.2 x 8.0 cm. No focal myometrial mass The right ovary is normal in appearance measuring 3.2 x 1.8 x 2.7 cm. Normal color flow The left ovary is not visualized No free fluid US/US pelvis transvaginal IMPRESSION: Nonvisualization of the left ovary No intrauterine or ectopic in the visualized pelvis Electronically authenticated by: AMNA BRADSHAW Date: 04/09/2024 13:22 Dictated By: Amna Bradshaw M.D. Signed By: 04/09/24 1324 DD/ 1322 TD/TT: Gyro Compass Tester:TBHRadiology, Radiologist, MD - 04/09/2024 [place] [address] Ultrasound Report Signed Patient: ERIKA GRIDER MR#: [id number] : 1995 Acct:[id number] Age/Sex: 29 / F ADM Date: 04/09/24 Loc: [facility] Attending Dr: Clyde Nelson D.O. Ordering Physician: Clyde Nelson D.O. Date of Service: 04/09/24 Procedure(s): US pelvis transvaginal Accession Number(s): [id number] cc: JAMILA VELEZ Corey D.O. The [address] [address] Patient Name: ERIKA GRIDER MRN: [id number] date: 1995 Sex: F Assigned Patient Location: [facility] Current Patient Location: LAB Accession/Order Number: [id number] Exam Date: 04/09/2024 11:45 Report Date: 04/09/2024 13:22 At the request of: CLYDE NELSON Procedure: US pelvis transvaginal EXAMINATION: US pelvis transvaginal HISTORY: MISSED MENSES COMPARISON: No relevant comparison available. FINDINGS: Transvaginal images No intrauterine or ectopic The uterus is normal in size, contour and myometrial echotexture measuring 10.1 x 4.2 x 8.0 cm. No focal myometrial mass The right ovary is normal in appearance measuring 3.2 x 1.8 x 2.7 cm. Normal color flow The left ovary is not visualized No free fluid US/US pelvis transvaginal IMPRESSION: Nonvisualization of the left ovary No intrauterine or ectopic in the visualized pelvis Electronically authenticated by: AMNA BRADSHAW Date: 04/09/2024 13:22 Dictated By: Amna Bradshaw M.D. Signed By: 04/09/241323 DD/ 21 TD/TT: Gyro Compass Tester: [facility] HealthcareRadiology Study observation (narrative)[facility] HealthcareUS PELVIS TRANSVAGINALOrdered By: Radiologist Radiology on 61-76-6045PNLT Healthcare Work Phone: HER B SURFACE ANTIGEN SCREENon 20-28-2480ROxBx Screen NegativeNormalNegativeThe [facility] HospitalComment on above:Performed By: #### HBSANS #### [facility] [address] [place] [address] Dr. Josh Dasilva C VIRUS AB W/ REFLEX QUANTon 63-27-4584WTT AB Non-ReactiveNormalNon ReactiveThe [facility] HospitalComment on above:Performed By: #### HCVPCRR #### [facility] [address] [place] [address] Dr. Josh Tay 1 AND 2 WITH REFLEXon 94-32-7675BZR Screen 4th Generation wRfxNon-ReactiveNormalNon ReactiveThe [facility] HospitalComment on above:Result Comment: HIV Negative HIV-1/HIV-2 antibodies and HIV-1 p24 antigen were NOT detected. There is no laboratory evidence of HIV infection.Performed By: #### BOX #### [facility] [address] [place] [address] Dr. Josh MéndezR QUANTon 60-69-0543Jmmop Plasma Reagin, QuantNon-Reactive NormalNonRea<1:1The [facility] on above:Result Comment: Please Note: This test does not meet current guidelines for screening and diagnosis of syphilis. This test is intended for following treatment response in patients being treated for syphilis infection. To screen for syphilis infection, a reflex cascade that includes both RPR and a treponema-specific assay should be utilized, such as Treponema pallidum (Syphilis) Screening Venango (631986) or Rapid Plasma Reagin (RPR) Test With Reflex to Quantitative RPR and Confirmatory Treponema pallidum Antibodies (747617).Performed By: #### BOX #### [facility] [address] [place] [address] Dr. Josh Roberts AB IGGon [id number] Antibodies, IgG1.84 index NormalImmune >0.99The [facility] Springfieldment on above:Result Comment: Non- immune <0.90 Equivocal 0.90 - 0.99 Immune >0.99Performed By: #### HCGSUB #### [facility] [address] [place] [address] Dr. Josh Craft TEST SENT OUTon [id number] TO REF LAB04/17/2023NoDun[facility] HospitalCom[facility] on above:Performed By: #### BOX #### [facility] [address] [place] [address] Dr. Josh Swain AUTO DIFFon [id number] #0.0 103/ulNormal0.0-0.1[facility] HospitalComment on above:Performed By: #### BOX #### [facility] [address] [place] [address] Dr. Josh JacintoBasophils/100 WBC (Bld)0.2 %Normal0.2-2.0The [facility] Comment on above:Performed By: #### BOX #### [facility] [address] [place] [address] Dr. Moreno ChangEO #0.1 103/ulNormal0.0-0.7The [facility] HospitalComment on above: Performed By: #### BOX #### [facility] [address] [place] [address] Dr. Josh Barrosoosinophils/100 WBC (Bld)0.6 %Critically low0.9-7.0The [facility] HospitalComment on above:Performed By: #### BOX #### [facility] [address] [place] [address] Dr. Josh Barrosorythrocyte distribution width (RBC) [Ratio]13.4 %Jgdwup13.0-15.0 The [facility] HospitalComment on above:Performed By: #### BOX #### [facility] [address] [place] [address] Dr. Josh JacintoHematocrit (Bld) [Volume fraction]36.9 %Rvifqk81.0-48.0The [facility] HospitalComment on above:Performed By: #### BOX #### [facility] [address] [place] [address] Dr. Josh JacintoHemoglobin (Bld) [Mass/Vol]12.4 g/eMEtpjkd41.0-16.0The [facility] HospitalComment on above:Performed By: #### BOX #### [facility] [address] [place] [address] Dr. Josh Ramirez #0.02 10e3/ulNormal0.00-0.03The [facility] HospitalComment on above:Performed By: #### BOX #### [facility] [address] [place] [address] Dr. Josh Ramirez %0.2 %Normal0.0-0.5The [facility] HospitalComment on above: Performed By: #### BOX #### [facility] [address] [place] [address] Dr. Josh JuárezH #2.3 103/ulNormal1.2-3.8The [facility] HospitalComment on above:Performed By: #### BOX #### [facility] [address] [place] [address] Dr. Yilan ChangLymphocytes/100 WBC (Bld)19.4 %Critically low20.5-60.0The [facility] HospitalComment on above:Performed By: #### BOX #### [facility] [address] [place] [address] Dr. Josh Lopez DIFF REQNONormalThe [facility] HospitalComment on above: Performed By: #### BOX #### [facility] [address] [place] [address] Dr. Josh Guadarrama (RBC) [Entitic mass]29.6 dyLxxljq87.7-34.0The [facility] HospitalComment on above:Performed By: #### BOX #### [facility] [address] [place] [address] Dr. Josh Guadarrama (RBC) [Mass/Vol]33.6 g/oMIgbtey92.9-35.2The [facility] HospitalComment on above:Performed By: #### BOX #### [facility] [address] [place] [address] Dr. Josh Guadarrama (RBC) [Entitic vol]88.1 cDSjcrvs22.0-99.0The [facility] HospitalComment on above:Performed By: #### BOX #### [facility] [address] [place] [address] Dr. Josh Ch #0.6 103/ulNormal0.3-0.8The [facility] HospitalComment on above:Performed By: #### BOX #### [facility] [address] [place] [address] Dr. Josh Readocytes/100 WBC (Bld)5.1 %Normal1.7-12.0[facility] Comment on above:Performed By: #### BOX #### [facility] [address] [place] [address] Dr. Josh Lewis #9.0 103/ulCritically high1.4-6.5The [facility] Comment on above:Performed By: #### BOX #### [facility] [address] [place] [address] Dr. Yilan ChangNeutrophils/100 WBC (Bld)74.5 %Aldpuq36.0-75.0The [facility] HospitalComment on above:Performed By: #### BOX #### [facility] [address] [place] [address] Dr. Josh JacintoPlatelet mean volume (Bld) [Entitic vol]10.1 fLNormal9.5-13.5The [facility] HospitalComment on above:Performed By: #### BOX #### [facility] [address] [place] [address] Dr. Josh JacintoPLT337 103/jnOosksu865-222Nom [facility]Com[facility] on above: Performed By: #### BOX #### [facility] [address] [place] [address] Dr. Josh JacintoRBC4.19 106/ulCritically low4.20-5.40The [facility] HospitalCom[facility] on above:Performed By: #### BOX #### [facility] [address] [place] [address] Dr. Josh JacintoWBC12.0 103/ulCritically high4.0-11.0The [facility]Com[facility] on above:Performed By: #### BOX #### [facility] [address] [place] [address] Dr. Josh JacintoCULTJUNE URINEon [id number] URINECulture Observations: NO GROWTH.NormalThe [facility] HospitalCom[facility] on above:Performed By: #### HCGSUB #### [facility] [address] [place] [address] Dr. Josh JacintoGLYCOHEMOGLOBIN A1Con [id number] RECOMMENDATIONSEE BELOWNormal [facility] HospitalCom[facility] on above:Result Comment: ADA RECOMMENDED LIMIT 4.0 - 6.0 ADA THERAPEUTIC TARGET < 7.0 ACTION SUGGESTED > 7.0Performed By: #### HCVPCRR #### [facility] [address] [place] [address] Dr. Josh JacintoGlucose [Mass/Vol]91 mg/dLNormalThe [facility] HospitalComment on above:Performed By: #### HCVPCRR #### [facility] [address] [place] [address] Dr. Josh JacintoHbA1c (Bld) [Mass fraction]4.8 %Normal4.5-6.2The [facility] HospitalComment on above:Performed By: #### HCVPCRR #### [facility] [address] [place] [address] Dr. Josh JacintoTSHon 51-11-6264OQZ4.700 uIU/mLNormal0.358-3.740The [facility] HospitalComment on above:Performed By: #### HCGSUB #### [facility] [address] [place] [address] Dr. Johs JacintoTYPE AND SCREENon [id number] AND SCREENNegativeNormalThe [facility] HospitalComment on above:Performed By: #### HCGSUB #### [facility] [address] [place] [address] Dr. Josh JacintoUS PREG TVon [id number] PREG TVEXAMINATION: US PREG TV HISTORY: Pain TECHNIQUE: Grayscale and color Doppler sonographic evaluation of the uterus and adnexa was performed utilizing a transvaginal approach only. COMPARISON: 04/06/2023 FINDINGS: Uterus: Size: Normal Orientation:Anteverted Intrauterine Gestational Sac: Present Yolk Sac: Present Pole: Present. [place]-rump length measures 2.1 cm, 8 weeks 5 [...] Electronically authenticated by: ANANT ERIC Date: 2023-04-13 20:47NoDunlap Memorial HospitalUS PREG TVon [id number] PREG TVEXAMINATION: US PREG TV HISTORY: Missed [...] Electronically authenticated by: ROXY TOBIAS Date: 2023-04-06 10:05[facility] AUTO DIFFon [id number] #0.0 103/ulNormal0.0-0.1[facility] HospitalComment on above:Performed By: #### HCVPCRR #### [facility] [address] [place] [address] Dr. Josh JacintoBasophils/100 WBC (Bld)0.4 %Normal0.2-2.0[facility] Comment on above:Performed By: #### HCVPCRR #### [facility] [address] [place] [address] Dr. Josh Merchant #0.1 103/ulNormal0.0-0.7The [facility] HospitalComment on above: Performed By: #### HCVPCRR #### [facility] [address] [place] [address] Dr. Josh Barrosoosinophils/100 WBC (Bld)1.2 %Normal0.9-7.0[facility] Comment on above:Performed By: #### HCVPCRR #### [facility] [address] [place] [address] Dr. Josh Barrosorythrocyte distribution width (RBC) [Ratio]12.7 %Mteclw75.0-15.0 The [facility] HospitalComment on above:Performed By: #### HCVPCRR #### [facility] [address] [place] [address] Dr. Josh Roachatocrit (Bld) [Volume fraction]39.3 %Iwenyi13.0-48.0The [facility] HospitalComment on above:Performed By: #### HCVPCRR #### [facility] [address] [place] [address] Dr. Josh JacintoHemoglobin (Bld) [Mass/Vol]13.1 g/jTDzgbfn07.0-16.0The [facility] HospitalComment on above:Performed By: #### HCVPCRR #### [facility] [address] [place] [address] Dr. Josh Ramirez #0.02 10e3/ulNormal0.00-0.03The [facility] HospitalComment on above:Performed By: #### HCVPCRR #### [facility] [address] [place] [address] Dr. Josh Ramirez %0.3 %Normal0.0-0.5The [facility] HospitalComment on above: Performed By: #### HCVPCRR #### [facility] [address] [place] [address] Dr. Josh Bender #2.1 103/ulNormal1.2-3.8The [facility] HospitalComment on above:Performed By: #### HCVPCRR #### [facility] [address] [place] [address] Dr. Josh Juárezhocytes/100 WBC (Bld)28.8 %Wuchbz59.5-60.0The [facility] HospitalComment on above:Performed By: #### HCVPCRR #### [facility] [address] [place] [address] Dr. Josh SawyerUAL DIFF REQNONormalThe [facility] HospitalComment on above: Performed By: #### HCVPCRR #### [facility] [address] [place] [address] Dr. Josh Royal (RBC) [Entitic mass]28.9 gtMrtsdy00.7-34.0The [facility] HospitalComment on above:Performed By: #### HCVPCRR #### [facility] [address] [place] [address] Dr. Josh Guadarrama (RBC) [Mass/Vol]33.3 g/nERvtnub79.9-35.2The [facility]Comment on above:Performed By: #### HCVPCRR #### [facility] [address] [place] [address] Dr. Josh Yu (RBC) [Entitic vol]86.6 jNPpuavf51.0-99.0The [facility] HospitalComment on above:Performed By: #### HCVPCRR #### [facility] [address] [place] [address] Dr. Josh Ch #0.6 103/ulNormal0.3-0.8The [facility] HospitalComment on above:Performed By: #### HCVPCRR #### [facility] [address] [place] [address] Dr. Josh Readocytes/100 WBC (Bld)8.7 %Normal1.7-12.0The [facility] Comment on above:Performed By: #### HCVPCRR #### [facility] [address] [place] [address] Dr. Josh Lewis #4.4 103/ulNormal1.4-6.5The [facility] HospitalComment on above:Performed By: #### HCVPCRR #### [facility] [address] [place] [address] Dr. Josh Skyutrophils/100 WBC (Bld)60.6 %Kgveok10.0-75.0The [facility] HospitalComment on above:Performed By: #### HCVPCRR #### [facility] [address] [place] [address] Dr. Jsoh Medinalet mean volume (Bld) [Entitic vol]10.0 fLNormal9.5-13.5The [facility] HospitalComment on above:Performed By: #### HCVPCRR #### [facility] [address] [place] [address] Dr. Josh JacintoPLT327 103/ebYdvxaj353-661WvpMansfield Hospital on above: Performed By: #### HCVPCRR #### [facility] [address] [place] [address] Dr. Josh JacintoRBC4.54 106/ulNormal4.20-5.40The [facility] on above:Performed By: #### HCVPCRR #### [facility] [address] [place] [address] Dr. Josh JacintoWBC7.2 103/ulNormal4.0-11.0[facility] on above: Performed By: #### HCVPCRR #### [facility] [address] [place] [address] Dr. Josh Jasso URINE PROFILEon [id number] Ql (U)NegativeNormal NEGATIVEWvumedicine Barnesville HospitalComascension standish hospital on above:Performed By: #### HCVPCRR #### [facility] [address] [place] [address] Dr. Josh Reyes (U)CLEARNormalCLEARWvumedicine Barnesville HospitalComascension standish hospital on above: Performed By: #### HCVPCRR #### [facility] [address] [place] [address] Dr. Josh Burr (U)LT. YELLOWNormalYELLOWMansfield Hospital on above:Performed By: #### HCVPCRR #### [facility] [address] [place] [address] Dr. Josh Alfonso micrscopic examination will be performed if indicated. NormalMansfield Hospital on above:Performed By: #### HCVPCRR #### [facility] [address] [place] [address] Dr. Josh Cowartose Ql (U)NegativeNormalNEGATIVEWvumedicine [facility] HospitalComascension stand[facility] hospital on above:Performed By: #### HCVPCRR #### [facility] [address] [place] [address] Dr. Josh JacintoHemoglobin Ql (U)LARGEAbnormalNEGATIVEWvumedicine [facility] Hospital Comment on above:Performed By: #### HCVPCRR #### [facility] [address] [place] [address] Dr. Josh Henryones Ql (U)NegativeNormalNEGATIVEWvumedicine Barnesville HospitalComment on above:Performed By: #### HCVPCRR #### [facility] [address] [place] [address] Dr. Josh JacintoLEUKOCYTESNegativeNormalNEGATIVEWvumedicine Barnesville HospitalComment on above:Performed By: #### HCVPCRR #### [facility] [address] [place] [address] Dr. Josh JacintoNitrite Ql (U)NegativeNormalNEGATIVEWvumedicine Barnesville HospitalComment on above:Performed By: #### HCVPCRR #### [facility] [address] [place] [address] Dr. Josh JacintopH (U)6.5 [pH]Normal5-9The [facility] HospitalComment on above: Performed By: #### HCVPCRR #### [facility] [address] [place] [address] Dr. Josh JacintoSPEC GRAVITY1.921Mlcffv2.005-<=1.025[facility] HospitalComment on above:Performed By: #### HCVPCRR #### [facility] [address] [place] [address] Dr. Josh Hilario PROTEINNegativermalNEGATIVE/ TRACEWvumedicine Barnesville Hospital Comment on above:Performed By: #### HCVPCRR #### [facility] [address] [place] [address] Dr. Josh Green MICRO INDINDICATEDNormalThShelby Memorial HospitalComment on above: Performed By: #### HCVPCRR #### [facility] [address] [place] [address] Dr. Josh JacintoUrobilinogen Qn (U)0.2 {Pio'U}/dLNormal0.2 - 1.0The [facility] HospitalComment on above:Performed By: #### HCVPCRR #### [facility] [address] [place] [address] Dr. Josh Gillette QUANT HCGon [id number] QUANT4 mIU/mLNormalMansfield Hospital on above:Performed By: #### PREGQNT #### [facility] [address] [place] [address] Dr. Josh Jesus RANGESEE [facility] CenterComasc[facility] stand[facility] on above: Result Comment: 5-50 0.2-1 WEEK 50-500 1-2 WEEKS 100-5,000 2-3 WEEKS 500-10,000 3-4 WEEKS 1,000-50,000 4-5 WEEKS 10,000-100,000 5-6 WEEKS 15,000-200,000 6-8 WEEKS 10,000-100,000 2-3 MONTHSPerformed By: #### PREGQNT #### [facility] [address] [place] [address] Dr. Josh JacintoPROTIMErasta [id number] Coag (PPP) [Relative time]1.29 {INR} NormalWvumedicine Barnesville HospitalComascension standish hospital on above:Performed By: #### HCVPCRR #### [facility] [address] [place] [address] Dr. Josh Barajas GUIDELINESBucyrus Community Hospital on above:Result Comment: DESIRED INR: 2.0 - 3.0 CONDITIONS NOT LISTED BELOW 2.5 - 3.5 FOR PROSTHETIC HEART VALVE REPLACEMENT 2.5 - 3.5 RECURRENT THROMBOSIS Performed By: #### HCVPCRR #### [facility] [address] [place] [address] Dr. Josh JacintoPT Coag (PPP) [Time]13.7 sCritically high9.0-11.6The [facility] on above:Performed By: #### HCVPCRR #### [facility] [address] [place] [address] Dr. Josh Romero [id number] Coag (Bld) [Time]25.1 gIzdtlg62.3-36.2[facility] on above:Performed By: #### HCVPCRR #### [facility] [address] [address] [address] Josh Antunez MICROSCOPIC ONLYon [id number] SEENNormalNONE SEENMansfield Hospital on above:Performed By: #### HCVPCRR #### [facility] [address] [address] [address] Josh Garcia identified Cx Nom (U)NOT INDICATEDNoalThShelby Memorial HospitalComascension standish hospital on above:Performed By: #### HCVPCRR #### [facility] [address] [address] [address] Josh Elkins SEENNormalNONE SEENMansfield Hospital on above:Performed By: #### HCVPCRR #### [facility] [address] [address] [address] Josh Kearneyystals LM Nom (Urine sed)NONE SEENNormalNONE SEENMansfield Hospital on above:Performed By: #### HCVPCRR #### [facility] [address] [address] [address] Moreno ChangEpithelial cells LM Ql (Urine sed)MODERATEAbnormalNONE SEEN /RARE The [facility] HospitalComasc[facility] on above:Performed By: #### HCVPCRR #### [facility] [address] [address] [address] Josh RahmanCOUSDARCIE SEENNormalNONE [facility] on above:Performed By: #### HCVPCRR #### [facility] [address] [address] [address] Josh DeeYxszyIDC83-97Fvveguwb9-6WssMansfield Hospital on above: Performed By: #### HCVPCRR #### [facility] [address] [address] [address] Josh HughesBC0-2AbnormalNONE SEENMansfield Hospital on above: Performed By: #### HCVPCRR #### [facility] [address] [place] [address] Dr. Josh Hughes PREG TVon [id number] PREG TVEXAMINATION: US PREG TV HISTORY: Ectopic [...] quantitative beta hCG Electronically authenticated by: AMNA BRADSHAW Date: 2022-10-13 08:40NoAv[facility] AUTO DIFFon [id number] #0.0 103/ulNormal0.0-0.1The [facility] HospitalComment on above:Performed By: #### HCVPCRR #### [facility] [address] [place] [address] Dr. Josh JacintoBasophils/100 WBC (Bld)0.3 %Normal0.2-2.0The [facility] Comment on above:Performed By: #### HCVPCRR #### [facility] [address] [place] [address] Dr. Josh Merchant #0.0 103/ulNormal0.0-0.7The [facility] HospitalComment on above: Performed By: #### HCVPCRR #### [facility] [address] [place] [address] Dr. Josh Barrosoosinophils/100 WBC (Bld)0.4 %Critically low0.9-7.0The [facility] HospitalComment on above:Performed By: #### HCVPCRR #### [facility] [address] [place] [address] Dr. Josh Barrosorythrocyte distribution width (RBC) [Ratio]12.7 %Rfkwdo85.0-15.0 The [facility] HospitalComment on above:Performed By: #### HCVPCRR #### [facility] [address] [place] [address] Dr. Josh JacintoHematocrit (Bld) [Volume fraction]39.0 %Dxfabq86.0-48.0The [facility] HospitalComment on above:Performed By: #### HCVPCRR #### [facility] [address] [place] [address] Dr. Josh JacintoHemoglobin (Bld) [Mass/Vol]13.1 g/cVNltgcn12.0-16.0The [facility] HospitalComment on above:Performed By: #### HCVPCRR #### [facility] [address] [place] [address] Dr. Josh Ramirez #0.03 10e3/ulNormal0.00-0.03The [facility] HospitalComment on above:Performed By: #### HCVPCRR #### [facility] [address] [place] [address] Dr. Josh Ramirez %0.3 %Normal0.0-0.5The [facility] HospitalComment on above: Performed By: #### HCVPCRR #### [facility] [address] [place] [address] Dr. Josh Bender #2.0 103/ulNormal1.2-3.8The [facility] HospitalComascension standish hospital on above:Performed By: #### HCVPCRR #### [facility] [address] [place] [address] Dr. Josh Juárezhocytes/100 WBC (Bld)18.4 %Critically low20.5-60.0The [facility] HospitalComment on above:Performed By: #### HCVPCRR #### [facility] [address] [place] [address] Dr. Josh SawyerUAL DIFF REQNONormalThe [facility] HospitalComment on above: Performed By: #### HCVPCRR #### [facility] [address] [place] [address] Dr. Josh Royal (RBC) [Entitic mass]29.0 juFncgqy27.7-34.0The [facility] HospitalComment on above:Performed By: #### HCVPCRR #### [facility] [address] [place] [address] Dr. Josh Guadarrama (RBC) [Mass/Vol]33.6 g/eNMncnzt73.9-35.2The [facility] HospitalComment on above:Performed By: #### HCVPCRR #### [facility] [address] [place] [address] Dr. Josh Yu (RBC) [Entitic vol]86.5 zNZorsqp15.0-99.0The [facility] HospitalComment on above:Performed By: #### HCVPCRR #### [facility] [address] [place] [address] Dr. Josh Ch #0.8 103/ulNormal0.3-0.8The [facility] HospitalComment on above:Performed By: #### HCVPCRR #### [facility] [address] [place] [address] Dr. Josh Readocytes/100 WBC (Bld)7.1 %Normal1.7-12.0The [facility] Comment on above:Performed By: #### HCVPCRR #### [facility] [address] [place] [address] Dr. Jsoh Lewis #8.1 103/ulCritically high1.4-6.5The [facility] Comment on above:Performed By: #### HCVPCRR #### [facility] [address] [place] [address] Dr. Josh Skyutrophils/100 WBC (Bld)73.5 %Zuxchz15.0-75.0The [facility] HospitalComment on above:Performed By: #### HCVPCRR #### [facility] [address] [place] [address] Dr. Josh Castillo mean volume (Bld) [Entitic vol]10.4 fLNormal9.5-13.5The [facility] HospitalComment on above:Performed By: #### HCVPCRR #### [facility] [address] [place] [address] Dr. Josh JacintoPLT329 103/xhTlikeg347-981Yya [facility] HospitalComment on above: Performed By: #### HCVPCRR #### [facility] [address] [place] [address] Dr. Josh JacintoRBC4.51 106/ulNormal4.20-5.40The [facility] HospitalComment on above:Performed By: #### HCVPCRR #### [facility] [address] [place] [address] Dr. Josh JacintoWBC11.0 103/ulNormal4.0-11.0The [facility] HospitalComment on above:Performed By: #### HCVPCRR #### [facility] [address] [place] [address] Dr. Josh Mirza URINEon 63-28-1115YVXKBNC URINECulture Observations: NO GROWTH.NormalThe [facility] HospitalComment on above:Performed By: #### HCGSUB #### [facility] [address] [place] [address] Dr. Josh Jasso URINE PROFILEon 46-50-3932Xifexvrby Ql (U)NegativeNormal NEGATIVEWvumedicine Barnesville HospitalComment on above:Performed By: #### HCVPCRR #### [facility] [address] [place] [address] Dr. Josh Reyes (U)CLEARNormalCLEARThe [facility] HospitalComment on above: Performed By: #### HCVPCRR #### [facility] [address] [place] [address] Dr. Josh Burr (U)LT. YELLOWNormalYELLOWWvumedicine Barnesville HospitalComment on above:Performed By: #### HCVPCRR #### [facility] [address] [place] [address] Dr. Josh Alfonso micrscopic examination will be performed if indicated. NormalWvumedicine Barnesville HospitalComment on above:Performed By: #### HCVPCRR #### [facility] [address] [place] [address] Dr. Yilan ChangGlucose Ql (U)NegativeNormalNEGATIVEWvumedicine Barnesville HospitalComment on above:Performed By: #### HCVPCRR #### [facility] [address] [place] [address] Dr. Josh JacintoHemoglobin Ql (U)TRACE-LYSEDAbnormalNEGMemorial Health System Comment on above:Performed By: #### HCVPCRR #### [facility] [address] [place] [address] Dr. Josh Henryones Ql (U)NegativeNormalNEGATIVEWvumedicine Barnesville HospitalComment on above:Performed By: #### HCVPCRR #### [facility] [address] [place] [address] Dr. Josh JacintoLEUKOCYTESSMALLAbnormalNEGATIVEWvumedicine Barnesville HospitalComment on above:Performed By: #### HCVPCRR #### [facility] [address] [place] [address] Dr. Josh JacintoNitrite Ql (U)NegativeNormalNEGATIVEWvumedicine Barnesville HospitalComment on above:Performed By: #### HCVPCRR #### [facility] [address] [place] [address] Dr. Josh JacintopH (U)6.0 [pH]Normal5-9Wvumedicine Barnesville HospitalComment on above: Performed By: #### HCVPCRR #### [facility] [address] [place] [address] Dr. Josh JacintoSPEC GRAVITY1.593Impihy3.005-<=1.025The [facility] HospitalComment on above:Performed By: #### HCVPCRR #### [facility] [address] [place] [address] Dr. Josh Hilario PROTEINNegativeNormalNEGATIVE/ TRACEWvumedicine Barnesville Hospital Comment on above:Performed By: #### HCVPCRR #### [facility] [address] [place] [address] Dr. Josh Green MICRO INDINDICATEDNoalThShelby Memorial HospitalComment on above: Performed By: #### HCVPCRR #### [facility] [address] [place] [address] Dr. Josh Ruizbilvandana Qn (U)0.2 {Pio'U}/dLNormal0.2 - 1.0The [facility] HospitalComment on above:Performed By: #### HCVPCRR #### [facility] [address] [place] [address] Dr. Josh JacintoLIPASEon 78-08-2046Bnlulx [Catalytic activity/Vol]128.0 U/LNormal 73.0-393.0The [facility] HospitalComment on above:Performed By: #### CMP, LIPA, HSTROPN #### [facility] [address] [place] [address] Dr. Josh Horton 79-98-0937Zxjyhjyoq (Bld) [#/Vol]NegativeNormalNEGATIVEThe [facility] HospitalComment on above:Performed By: #### BOX #### [facility] [address] [place] [address] Dr. Jsoh JacintoPREJareth HCG QUALon 63-81-5662CTHYOJNWC, QUALPositiveAbnormalNEGATIVE The [facility] HospitalComment on above:Performed By: #### BOX #### [facility] [address] [place] [address] Dr. Josh JacintoPROF 14(COMP METB)on 41-87-0705Wtymuev [Mass/Vol]3.6 g/dLNormal 3.4-5.0The [facility] HospitalComment on above:Performed By: #### CMP, LIPA, HSTROPN #### [facility] [address] [place] [address] Dr. Josh JacintoAlbumin/Globulin [Mass ratio]0.9 {ratio}NormalThe [facility] HospitalComment on above:Performed By: #### CMP, LIPA, HSTROPN #### [facility] [address] [place] [address] Dr. Josh JacintoALP [Catalytic activity/Vol]94 U/UTnickc58-234Kdk [facility] HospitalComment on above:Performed By: #### CMP, LIPA, HSTROPN #### [facility] [address] [address] [address] Josh StoutT [Catalytic activity/Vol]22 U/JMcavtx46-94Hbv [facility] HospitalComment on above:Performed By: #### CMP, LIPA, HSTROPN #### [facility] [address] [place] [address] Dr. Josh Smithon gap [Moles/Vol]10.9 mmol/LNormalThe [facility] Comment on above:Performed By: #### CMP, LIPA, HSTROPN #### [facility] [address] [place] [address] Dr. Josh JacintoAST [Catalytic activity/Vol]13 U/LCritically dqs97-18Qvo [facility] HospitalComment on above:Performed By: #### CMP, LIPA, HSTROPN #### [facility] [address] [place] [address] Dr. Josh JacintoBilirubin [Mass/Vol]0.1 mg/dLCritically low0.2-1.0The [facility] HospitalComment on above:Performed By: #### CMP, LIPA, HSTROPN #### [facility] [address] [place] [address] Dr. Josh JacintoCalcium [Mass/Vol]9.0 mg/dLNormal8.5-10.1[facility] Comment on above:Performed By: #### CMP, LIPA, HSTROPN #### [facility] [address] [place] [address] Dr. Josh JacintoChloride [Moles/Vol]105 mmol/OQjerev39-242WhvWvumedicine Barnesville Hospital Comment on above:Performed By: #### CMP, LIPA, HSTROPN #### [facility] [address] [place] [address] Dr. Josh JacintoCO2 [Moles/Vol]23.5 mmol/VJiserq53.0-32.0[facility] Comment on above:Performed By: #### CMP, LIPA, HSTROPN #### [facility] [address] [address] [address] Josh JacintoCreatinine [Mass/Vol]0.68 mg/dLNormal0.55-1.02The [facility] HospitalComment on above:Performed By: #### CMP, LIPA, HSTROPN #### [facility] [address] [address] [address] Josh BarrosoGFR-AF BELGIAN>60Normal>=60The [facility] HospitalComment on above:Performed By: #### CMP, LIPA, HSTROPN #### [facility] [address] [place] [address] Dr. Josh BarrosoGFR-NON AF BELGIAN>60Normal>=60The [facility] HospitalComment on above:Performed By: #### CMP, LIPA, HSTROPN #### [facility] [address] [place] [address] Dr. Josh JacintoGlobulin (S) [Mass/Vol]4.1 g/dLNormalThe [facility] HospitalComment on above:Performed By: #### CMP, LIPA, HSTROPN #### [facility] [address] [place] [address] Dr. Josh JacintoGlucose [Mass/Vol]98 mg/mARcrnxu21-965Rkt [facility] Comment on above:Performed By: #### CMP, LIPA, HSTROPN #### [facility] [address] [place] [address] Dr. Josh JacintoPotassium [Moles/Vol]3.4 mmol/LCritically low3.5-5.1The [facility] Springfieldment on above:Performed By: #### CMP, LIPA, HSTROPN #### [facility] [address] [place] [address] Dr. Josh JacintoProtein [Mass/Vol]7.7 g/dLNormal6.4-8.2The [facility] Comment on above:Performed By: #### CMP, LIPA, HSTROPN #### [facility] [address] [place] [address] Dr. Josh JacintoSodium [Moles/Vol]136 mmol/FNxbrhu936-808Bav [facility] Comment on above:Performed By: #### CMP, LIPA, HSTROPN #### [facility] [address] [place] [address] Dr. Josh Gutierres nitrogen [Mass/Vol]14.0 mg/dLNormal7.0-18.0[facility] HospitalComment on above:Performed By: #### CMP, LIPA, HSTROPN #### [facility] [address] [place] [address] Dr. Josh JacintoUrea nitrogen/Creatinine [Mass ratio]20.6 mg/mgAdena Pike Medical CenterComascension standish hospital on above:Performed By: #### CMP, LIPA, HSTROPN #### [facility] [address] [place] [address] Dr. Josh Jaime, HIGH SENSITIVITYon 88-06-1089KFYDNU<4.1Tlvwex8.0-51.3 The [facility] HospitalComascension standish hospital on above:Result Comment: CUT-OFF POINTS HAVE BEEN ESTABLISHED BASED ON THE FOURTH UNIVERSAL DEFINITIONS OF MYOCARDIAL INFARCTION. THE UPPER REFERENCE LIMIT (URL) OF TROPONIN, DEFINED THE 99TH PERCENTILE OF cTnI DISTRIBUTION IN A REFERENCE POPULATION, HAS BEEN CONFIRMED THE DECISION THRESHOLD FOR GA DIAGNOSIS.Performed By: #### CMP, LIPA, HSTROPN #### [facility] [address] [place] [address] Dr. Josh Antunez MICROSCOPIC ONLYon 84-38-9359HPRTTRVTRABRYIegzeeupEIYP SEEN [facility] HospitalComment on above:Performed By: #### HCVPCRR #### [facility] [address] [place] [address] Dr. Josh Garcia identified Cx Nom (U)INDICATEDNoDunlap Memorial HospitalComascension standish hospital on above:Performed By: #### HCVPCRR #### [facility] [address] [place] [address] Dr. Josh Elkins SEENNoalWHITE MOUNTAIN REGIONAL MEDICAL CENTERE [facility] Bucy[facility] HospitalComascension stand[facility] hospital on above:Performed By: #### HCVPCRR #### [facility] [address] [address] [address] Josh Kearneyystals LM Nom (Urine sed)NONE SEENNormalNONE SEENMansfield Hospital on above:Performed By: #### HCVPCRR #### [facility] [address] [place] [address] Dr. Josh Castañedathelial cells LM Ql (Urine sed)MODERATEAbnormalNONE SEEN /RARE The [facility] HospitalComascension standish hospital on above:Performed By: #### HCVPCRR #### [facility] [address] [place] [address] Dr. Josh JacintoMUCOUSNONE SEENNormalNONE SEENMansfield Hospital on above:Performed By: #### HCVPCRR #### [facility] [address] [place] [address] Dr. Josh JacintoRBCNONE SEENAbnormal0-2[facility] on above: Performed By: #### HCVPCRR #### [facility] [address] [place] [address] Dr. Josh HughesBC2-5AbnormalNONE SEENMansfield Hospital on above: Performed By: #### HCVPCRR #### [facility] [address] [place] [address] Dr. Josh Jasso URINE PROFILEon 78-78-0355Taygoiqob Ql (U)NegativeNormal NEGATIVEMansfield Hospital on above:Performed By: #### PREGU, ERUR #### [facility] [address] [place] [address] Dr. Josh Reyes (U)CLEARNormalCLEARMansfield Hospital on above: Performed By: #### PREGU, ERUR #### [facility] [address] [place] [address] Dr. Josh Burr (U)LT. YELLOWNormalYELLOWMansfield Hospital on above:Performed By: #### PREGU, ERUR #### [facility] [address] [place] [address] Dr. Josh GomesDA micrscopic examination will be performed if indicated. NormalMarymount Hospital HospitalComment on above:Performed By: #### PREGU, ERUR #### [facility] [address] [place] [address] Dr. Josh JacintoGlucose Ql (U)NegativeNormalNEGATIVEWvumedicine Barnesville HospitalComment on above:Performed By: #### PREGU, ERUR #### [facility] [address] [place] [address] Dr. Josh JacintoHemoglobin Ql (U)NegativeNormalNEGMemorial Health System Comment on above:Performed By: #### PREGU, ERUR #### [facility] [address] [place] [address] Dr. Josh JacintoKetones Ql (U)NegativeNormalNEGATIVEWvumedicine Barnesville HospitalComment on above:Performed By: #### PREGU, ERUR #### [facility] [address] [place] [address] Dr. Josh JacintoLEUKOCYTESNegativeNormalNEGATIVEWvumedicine Barnesville HospitalComment on above:Performed By: #### PREGU, ERUR #### [facility] [address] [place] [address] Dr. Josh JacintoNitrite Ql (U)NegativeNormalNEGATIVEWvumedicine Barnesville HospitalComment on above:Performed By: #### PREGU, ERUR #### [facility] [address] [place] [address] Dr. Josh JacintopH (U)6.0 [pH]Normal5-9[facility] HospitalComment on above: Performed By: #### PREGU, ERUR #### [facility] [address] [place] [address] Dr. Josh JacintoSPEC GRAVITY1.081Bclytn9.005-<=1.025[facility] HospitalComment on above:Performed By: #### PREGU, ERUR #### [facility] [address] [place] [address] Dr. Josh JacintoUA PROTEINNegativeNormalNEGATIVE/ TRACEWvumedicine Barnesville Hospital Comment on above:Performed By: #### PREGU, ERUR #### [facility] [address] [address] [address] Josh JacintoUR MICRO INDNOT INDICATEDNoDunlap Memorial HospitalComment on above:Performed By: #### PREGU, ERUR #### [facility] [address] [address] [address] Josh JacintoUrobilinogen Qn (U)0.2 {Pio'U}/dLNormal0.2 - 1.0The [facility] HospitalComment on above:Performed By: #### PREGU, ERUR #### [facility] [address] [address] [address] Josh JacintoPREGNANCY URon 76-64-2031JMTYIRJAI, QUALNegativeNormalNEGATIVEThe [facility] HospitalComment on above:Performed By: #### PREGU, ERUR #### [facility] [address] [place] [address] Dr. Josh JacintoXR ABD FLAT UP_PA Edgard 89-35-7871YD ABD FLAT UP_PA CHEXAM: XR ABD FLAT [...] Electronically authenticated by: JANICE KAUFMAN Date: 2022-09-14 02:39[facility] ACOG PANEL 2: 21 to 29on 07-10-2022..NormalThe [facility] HospitalComment on above:Performed By: #### HCGSUB #### [facility] [address] [place] [address] Dr. Josh Sepulveda Gdln ACOG Gnanjtx86-66RqawsoFzuDunlap Memorial HospitalComment on above:Performed By: #### HCGSUB #### [facility] [address] [place] [address] Dr. Josh JacintoDIAGNOSIS:CommentFort Hamilton Hospital on above: Result Comment: NEGATIVE FOR INTRAEPITHELIAL LESION OR MALIGNANCY.Performed By: #### HCGSUB #### [facility] [address] [place] [address] Dr. Josh JacintoMethodology:CommentFort Hamilton Hospital on above: Result Comment: This liquid based ThinPrep(R) pap test was screened with the use of an image guided system.Performed By: #### HCGSUB #### [address] [address] Dr[address] Josh JacintoNote:CommentFort Hamilton Hospital on above:Result Comment: The Pap smear is a screening test designed to aid in the detection of premalignant and malignant conditions of the uterine cervix. It is not a diagnostic procedure and should not be used as the sole means of detecting cervical cancer. Both false-positive and false-negative reports do occur. .Performed By: #### HCGSUB #### [facility] [address] [place] [address] Dr. Josh JacintoPerformed by:CommentFort Hamilton Hospital on above: Result Comment: Louis Salazar Repeat Photocomposing Machine Operator (ASCP)Performed By: #### HCGSUB #### [facility] [address] [place] [address] Dr. Josh JacintoReflex Criteria:CommentFort Hamilton Hospital on above:Result Comment: The HPV DNA reflex criteria were not met with this specimen result therefore, no HPV testing was performed. .Performed By: #### HCGSUB #### [facility] [address] [place] [address] Dr. Josh JacintoSpecimen adequacy:CommentFort Hamilton Hospital on above:Result Comment: Satisfactory for evaluation. Endocervical and/or squamous metaplastic cells (endocervical component) are present.Performed By: #### HCGSUB #### [facility] [address] [place] [address] [address] [address] Josh JacintoHCG-BETA SUBUNIT QUANTon 15-30-1686qWQ,Beta Subunit,Qnt,Serum<1 NormalThe [facility] HospitalComment on above:Result Comment: Female (Non- ) 0 - 5 (Postmenopausal) 0 - 8 . Female () Weeks of Gestation 3 6 - 71 4 10 - 750 5 217 - 7609 6 566 - 66991 7 0300 -919878 8 01662 -589473 9 93467 -326594 10 20260 -762135 12 96555 -694334 14 66346 - 78579 15 35561 - 68870 16 4935 - 63788 17 9723 - 66985 18 7463 - 01501 Liana ECLIA methodologyPerformed By: #### HCGSUB #### [facility] [address] [place] [address] Dr. Josh JacintoUS PELVIS AND TRANSVAGon 85-45-5662SK PELVIS AND TRANSVAG EXAMINATION: US PELVIS AND [...] quantitative beta hCG Electronically authenticated by: AMNA BRADSHAW Date: 2022-07-05 16:12NormTogus VA Medical CenterCult,Urineon 60-01-5969Cyau,UrineSpecimen Description .CLEAN CATCH URINE Special Requests NOT REPORTED Culture NO SIGNIFICANT GROWTH Report Status FINAL 05/19/2021NoalCleveland Clinic Children'S Hospital For Rehabilitation HospitalComment on above: Performed By: #### SWCGP #### [facility] [address] [place] [address] Consumer Studies Professor: Heydi Brady UrinalysisOrdered By: Richar Obrien on 05-18-2021-[facility] Work Phone: amorphous, UANOT REPORTEDNoneMercy Health Work Phone: bacteria, UA2+AbnormalNoneMercy Health Work Phone: casts UANOT REPORTED/LPFMercy Health [...] Work Phone: Nitrite, UrineNegativeNEGATIVEMercy Health Work Phone: yH, UA6.0[facility] Work Phone: protein, UANegativeNEGATIVEMercy Health Work Phone: Apecific [place], UA>1.030HighMercy Health Work Phone: Turbidity UASLIGHTLY CLOUDYAbnormalCLEARMercy Health Work Phone: Urinalysis CommentsNOT REPORTEDMercy Health Work Phone: Urine HgbNegativeNEGATIVEMercy Health Work Phone: Urobilinogen, UrineNormalNormalMercy Health Work Phone: [facility] Work Phone: Urinalysis, Routineon 65-81-8370Kxnlranva, SemiQt,Ur NegativeNormalNEGMercy Delray HospitalComment on above:Performed By: #### CHERYLGP #### [facility] [address] [place] [address] Consumer Studies Professor: Bishop Brady, UrineNegativeNormalNEGMercy Delray HospitalComment on above:Performed By: #### CHERYLGP #### [facility] [address] [place] [address] Consumer Studies Professor: Missy Brady (U)SLIGHTLY CLOUDYAbnormalCLEARMercy Delray HospitalComment on above:Performed By: #### CHERYLGP #### [facility] [address] [place] [address] Consumer Studies Professor: AIDE Bradyolor (U)YELLOWNormalYSelect Medical Specialty Hospital - [facility] Comment on above:Performed By: #### CHERYLGP #### [address] [address] Consumer Studies Professor: Collin De La Fuente MDGlucose Ql (U)NegativeNormalNEGUpper Valley Medical CenterComment on above:Performed By: #### CHERYLGP #### [address] [address] Consumer Studies Professor: Collin De La Fuente MDKetones Ql (U)NegativeNormalNEGUpper Valley Medical CenterComment on above:Performed By: #### CHERYLGP #### [address] [address] Consumer Studies Professor: Collin De La Fuente MDLeukocyte esterase Test strip Ql (U)SMALL AbnormalNEGUpper Valley Medical CenterComment on above:Performed By: #### CHERYLGP #### [address] [address] Consumer Studies Professor: Collin De La Fuente MDNitrite,UrNegativeNormalNEGUpper Valley Medical Center Comment on above:Performed By: #### CHERYLGP #### [address] [address] Consumer Studies Professor: TINO Brady,Ur6.7Qqxpkz2.0-9.0[facility] Comment on above:Performed By: #### CHERYLGP #### [address] [address] Consumer Studies Professor: TINO Bradyrotein Ql (U)NegativeNormalNEGUpper Valley Medical CenterComment on above:Performed By: #### CHERYLGP #### [address] [address] Consumer Studies Professor: DEV Bradypec. [place],Ur>1.854Pcrn9.010-1.020Mer[facility] Delray HospitalComment on above:Performed By: #### IMELDACGP #### [facility] [address] [place] [address] Consumer Studies Professor: Collin De La Fuente MDUrobilinogen,UrNormalNormalNORMUpper Valley Medical CenterComment on above:Performed By: #### IMELDACGP #### [facility] [address] [place] [address] Consumer Studies Professor: AIDE BradyommentNOT REPORTEDNormMount St. Mary Hospital Comment on above:Performed By: #### IMELDACGP #### [facility] [address] [place] [address] Consumer Studies Professor: Collin De La Fuente MDUrinalysis,Microon 05-18-2021-----NormalMerOur Lady of Mercy Hospital HospitalComment on above:Performed By: #### CHERYLGP #### [facility] [employer] [address] [place] [address] Consumer Studies Professor: Collin De La Fuente MDBacteria2+AbnormalAdams County Regional Medical Center Comment on above:Performed By: #### IMELDACGP #### [facility] [address] [place] [address] Consumer Studies Professor: Collin De La Fuente MDEpithelial cells LM Ql (Urine sed)5 TO 10Normal 0-25[facility] Hospitalcy [facility] HospitalComment on above:Performed By: #### SWCGP #### [facility] [employer] [facility] [place] [address] Consumer Studies Professor: GOYO Bradyucus Strands1+AbnormalAdams County Regional Medical Center Comment on above:Performed By: #### IMELDACGP #### [facility] [employer] [address] [place] [address] Consumer Studies Professor: Collin De La Fuente MDUrine RBC'sNoneNormal0-2[facility] Comment on above:Performed By: #### IMELDACGP #### [facility] [employer] [address] [place] [address] Consumer Studies Professor: Slim Brady WBC's10 TO 25Ocpkfm8-8Qaves [facility] HospitalComment on above:Performed By: #### SWCGP #### [facility] [address] [place] [address] Consumer Studies Professor: Ada Bradyrphous sediment LM Ql (Urine sed)NOT REPORTED NormalNONEMercy Delray HospitalComment on above:Performed By: #### SWCGP #### [facility] [address] [place] [address] Consumer Studies Professor: AIDE BradyastsLORAINE REPORTEDNormalSt. [facility] Of [facility] Hospitalcy [facility] Comment on above:Performed By: #### SWCGP #### [facility] [address] [place] [address] Consumer Studies Professor: Jessica Brady LM Nom (Urine sed)NOT REPORTEDNormal NONEMercy Delray HospitalComment on above:Performed By: #### SWCGP #### [facility] [address] [place] [address] Consumer Studies Professor: Collin De La Fuente MDEpithelial, RenalNOT MTHMRRPRZmxugz8Xtzto Delray HospitalComment on above:Performed By: #### SWCGP #### [facility] [address] [place] [address] Consumer Studies Professor: Collin De La Fuente MDOther ObservationsNOT REPORTEDNormalNREQMercy Delray HospitalComment on above:Performed By: #### SWCGP #### [facility] [address] [place] [address] Consumer Studies Professor: Collin De La Fuente MDTrichomonasNOT REPORTEDNormalNONEMercy Delray HospitalComment on above:Performed By: #### SWCGP #### [facility] [address] [place] [address] Consumer Studies Professor: Hung BradyastNOT REPORTEDNormalNONEMercy [facility] Comment on above:Performed By: #### SWCGP #### [facility] [address] [place], [place] [phone] Consumer Studies Professor: Josefa Brady Metab w/rfx MGon 04-14-2021(cont.)Normal [facility] CenterComment on above:Result Comment: Average GFR for 20-29 years old: 116 mL/min/1.73sq m Chronic Kidney Disease: <60 mL/min/1.73sq m Kidney failure: <15 mL/min/1.73sq m eGFR calculated using average adult body mass. Additional eGFR calculator available at: http://www.[employer]/multiple_crcl_2012.htmPerformed By: #### BMPX, LIP, LIVP, CDP #### [address] [place], [place] [phone] Consumer Studies Professor: Amna Clements MDAnion gap [Moles/Vol]12 mmol/LNormal9-17[facility] CenterComment on above:Performed By: #### BMPX, LIP, LIVP, CDP #### [address] [place], [place] [phone] Consumer Studies Professor: Amna Clements MDBUN/CRE Txlww32Nivhyx2-64[facility] Comment on above:Performed By: #### BMPX, LIP, LIVP, CDP #### [address] [place], [place] [phone] Consumer Studies Professor: Amna Clements MDCalcium [Mass/Vol]8.8 mg/dLNormal8.6-10.4[facility] CenterComment on above:Performed By: #### BMPX, LIP, LIVP, CDP #### [address] [place] [address] Consumer Studies Professor: Amna Clements MDChloride [Moles/Vol]101 mmol/RKqndhw37-239FipvxUpper Valley Medical CenterComment on above:Performed By: #### BMPX, LIP, LIVP, CDP #### [address] [place], [place] [phone] Consumer Studies Professor: AIDE BauerO2 [Moles/Vol]23 mmol/MXiwajw39-76Ufpic [facility] HospitalComment on above:Performed By: #### BMPX, LIP, LIVP, CDP #### [address] [place], [place] [phone] Consumer Studies Professor: AIDE Bauerreatinine [Mass/Vol]0.47 mg/dLLow0.50-0.90MerOur Lady of Mercy Hospital HospitalComment on above:Performed By: #### BMPX, LIP, LIVP, CDP #### [address] [place], [place] [phone] Consumer Studies Professor: Amna Clements MDGFR, Amer>60Normal>60[facility] Comment on above:Performed By: #### BMPX, LIP, LIVP, CDP #### [address] [place], [place] [phone] Consumer Studies Professor: ELLEN Bauer,non Amer>60Normal>60[facility] HospitalComment on above:Performed By: #### BMPX, LIP, LIVP, CDP #### [address] [place], [place] 1168483 Consumer Studies Professor: Amna Clements MDGlucose [Mass/Vol]106 mg/oKHicc23-92Owvsk Delray HospitalComment on above:Performed By: #### BMPX, LIP, LIVP, CDP #### [address] [place] [address] Consumer Studies Professor: Amna Clements MDPotassium [Moles/Vol]3.7 mmol/LNormal3.7-5.3[facility] HospitalComment on above:Performed By: #### BMPX, LIP, LIVP, CDP #### [facility] [address] [place] [address] [place] [address] Consumer Studies Professor: DEV Bauerodium [Moles/Vol]136 mmol/BAllcan663-485HghwaUpper Valley Medical CenterComment on above:Performed By: #### BMPX, LIP, LIVP, CDP #### [address] [place] [address] Consumer Studies Professor: DEV Bauertaging:[facility] Methodist HospitalComment on above:Result Comment: Stage 1: Some kidney damage normal GFR Stage 2: Mild kidney damage GFR 60-89 Stage 3: Moderate kidney damage GFR 30-59 Stage 4: Severe kidney damage GFR 15-29 Stage 5: Severe kidney damage GFR <15 ESRD - chronic treatment by dialysis or transplantPerformed By: #### BMPX, LIP, LIVP, CDP #### [address] [place] [address] Consumer Studies Professor: Amna Clements MDUrea nitrogen [Mass/Vol]9 mg/dLNormal6-20[facility] CenterComment on above:Performed By: #### BMPX, LIP, LIVP, CDP #### [address] [place] [address] Consumer Studies Professor: Gogo Bauersinic Metabolic Panel w/ Reflex to MGOrdered By: Cisco Lopez on 05-69-8086Kpzhu gap [Moles/Vol]12 mmol/L9 - 17 mmol/LMercy Health Work Phone: calcium [Mass/Vol]8.8 mg/dL8.6 - 10.4 mg/dLMercy Health Anderson Hospital [employer] Work Phone: chloride [Moles/Vol]101 mmol/L98 - 107 mmol/LMercy Health Work Phone: cO2 [Moles/Vol]23 mmol/L20 - 31 mmol/LMercy Health Work Phone: creatinine [Mass/Vol]0.47 mg/dLLow0.50 - 0.90 mg/dL [employer] Phone: GFR >60>60 mL/minSt. John Of God HospitalWithin3 Phone: GFR Non->60>60 mL/minSt. John Of God HospitalWithin3 Phone: Glucose [Mass/Vol]106 mg/iNNshe43 - 99 mg/dLSt. John Of God HospitalWithin3 Phone: Interpretation and review of laboratory results AbnormalSt. John Of God HospitalWithin3 Phone: potassium [Moles/Vol]3.7 mmol/L3.7 - 5.3 mmol/LMhighland district hospital [employer] Phone: sodium [Moles/Vol]136 mmol/L135 - 144 mmol/LMohiohealth nelsonville health centery [employer] Phone: Urea nitrogen (BldV) [Mass/Vol]9 mg/dL6 - 20 mg/dL [employer] Phone: Urea nitrogen/Creatinine (Bld) [Mass ratio]19[facility]3 Phone: cBC Auto DifferentialOrdered By: Cisco Lopez on [id number] Eos #0.00[facility]3 Phone: absolute Immature Granulocyte0.00[facility]3 Phone: absolute Lymph #2.00[facility] Phone: absolute Daggett #1.78HighSt. John Of God HospitalWithin3 Phone: basophils (Bld) [#/Vol]0.00 10*3/uLSt. John Of God HospitalWithin3 Phone: basophils/100 WBC (Bld)0 %0 - 2 %[employer] Phone: differential TypeNOT REPORTEDSt. John Of God HospitalWithin3 Phone: eosinophils/100 WBC (Bld)0 %Low1 - 4 %[employer] Phone: Hematocrit (Bld) [Volume fraction]38.4 %36.3 - 47.1 % [employer] Phone: Hemoglobin.gastrointestinal spec 1 Ql (Stl)12.5 g/dL 11.9 - 15.1 g/dLSt. John Of God HospitalWithin3 Phone: Immature granulocytes/100 WBC (Bld)0 %0[facility]3 Phone: Interpretation and review of laboratory results AbnormalSt. John Of God HospitalWithin3 Phone: lymphocytes/100 WBC (Bld)9 %Low24 - 43 %[employer] Phone: MCH (RBC) [Entitic mass]29.6 pg25.2 - 33.5 pgSt. John Of God HospitalWithin3 Phone: MCHC (RBC) [Mass/Vol]32.6 g/dL28.4 - 34.8 g/dLSt. John Of God HospitalWithin3 Phone: MCV (RBC) [Entitic vol]91.0 fL82.6 - 102.9 fLSt. John Of God HospitalWithin3 Phone: Monocytes/100 WBC (Bld)8 %3 - 12 %[employer] Phone: Morphology Hay (Bld) [Interp]NormalSt. John Of God HospitalWithin3 Phone: NRBC Automated0.00.0 per 100 WBCSt. John Of God HospitalWithin3 Phone: platelet distribution width (Bld) [Ratio]13.4 %11.8 - 14.4 %[employer] Phone: platelet EstimateNOT REPORTEDSt. John Of God HospitalWithin3 Phone: platelet mean volume (Bld) [Entitic vol]10.2 fL8.1 - 13.5 fLSt. John Of God HospitalWithin3 Phone: platelets (Bld) [#/Vol]321 10*3/[employer] [employer] Work Phone: rBC (Bld) [#/Vol]4.22 10*6/uL3.95 - 5.11 m/[place]Within[place] Phone: rBC (Bld) [#/Vol]NOT REPORTEDSt. John Of God HospitalWithin3 Phone: segmented neutrophils/100 WBC (Bld)83 %High36 - 65 % [employer] Phone: segs Mrstllux53.42HighSt. John Of God HospitalApply Financials Limited Work Phone: WBC (Bld) [#/Vol]22.2 10*3/[facility] Phone: WBC (Bld) [#/Vol]NOT REPORTEDSt. John Of God HospitalWithin3 Phone: [facility] HospitalApply Financials Limited Work Phone: cBC with Diffon [id number]. Basophil0.00 k/uLNormal 0.0-0.2[facility]ray HospitalComment on above:Performed By: #### DALILA #### [facility] [address] [place] [address] Consumer Studies Professor: Peggy Brady.Imm.Granulocyte0.00 k/uLNormal0.00-0.30[facility]ray HospitalComment on above:Performed By: #### DALILA #### [facility] [address] [place] [address] Consumer Studies Professor: Peggy Brady.Neutrophil (Seg)18.42 k/uLHigh1.50-8.10[facility] HospitalComment on above:Performed By: #### DALILA #### [facility] [address] [place] [address] Consumer Studies Professor: Clolin De La Fuente MDBasophils/100 WBC (Bld)0 %Normal0-2[facility] HospitalComment on above:Performed By: #### CHERYLGP #### [address] [address] Consumer Studies Professor: Collin De La Fuente MDEosinophils (Bld) [#/Vol]0.00 10*3/uLNormal 0.00-0.44[facility] HospitalComment on above:Performed By: #### CHERYLGP #### [address] [address] Consumer Studies Professor: MACK Bradyosinophils/100 WBC (Bld)0 %Low1-4[facility] HospitalComment on above:Performed By: #### CHERYLGP #### [address] [address] Consumer Studies Professor: Kp Bradymature granulocytes/100 WBC (Bld)0 %Normal0 [facility] HospitalComment on above:Performed By: #### CHERYLGP #### [address] [address] Consumer Studies Professor: Bhaskar Bradymphocytes (Bld) [#/Vol]2.00 10*3/uLNormal 1.10-3.70[facility] HospitalComment on above:Performed By: #### CHERYLGP #### [address] [address] Consumer Studies Professor: Bhaskar Bradymphocytes/100 WBC (Bld)9 %Tzk68-48[facility] HospitalComment on above:Performed By: #### CHERYLGP #### [address] [address] Consumer Studies Professor: GOYO Bradyonocytes (Bld) [#/Vol]1.78 10*3/uLHigh0.10-1.20 [facility] HospitalComment on above:Performed By: #### CHERYLGP #### [address] [address] Consumer Studies Professor: GOYO Bradyonocytes/100 WBC (Bld)8 %Normal3-12[facility] HospitalComment on above:Performed By: #### CHERYLGP #### [address] [address] Consumer Studies Professor: GOYO Bradyorphology Hay (Bld) [Interp]NormalNormalC[facility] HospitalComment on above:Performed By: #### IMELDACGP #### [address] [address] Consumer Studies Professor: Collin De La Fuente MDNeutrophil (Seg)83 %Lidr26-83Wnaqu Tiffin HospitalComment on above:Performed By: #### CHERYLGP #### [address] [address] Consumer Studies Professor: Collin De La Fuente MDErythrocyte distribution width (RBC) [Ratio]13.4 %Tjmhad88.8-14.4[facility] HospitalComment on above:Performed By: #### CHERYLGP #### [address] [address] Consumer Studies Professor: Collin De La Fuente MDHematocrit (Bld) [Volume fraction]38.4 %Normal 36.3-47.1[facility] HospitalComment on above:Performed By: #### CHERYLGP #### [address] [address] Consumer Studies Professor: Collin De La Fuente MDHemoglobin (Bld) [Mass/Vol]12.5 g/dLNormal 11.9-15.1[facility] HospitalComment on above:Performed By: #### CHERYLGP #### [address] [address] Consumer Studies Professor: GOYO BradyCH (RBC) [Entitic mass]29.6 reRyrqgi33.2-33.5 [facility] HospitalComment on above:Performed By: #### CHERYLGP #### [address] [address] Consumer Studies Professor: GOYO BradyCHC (RBC) [Mass/Vol]32.6 g/qWGxkctg32.4-34.8 [facility] HospitalComment on above:Performed By: #### CHERYLGP #### [address] [address] Consumer Studies Professor: GOYO BradyCV (RBC) [Entitic vol]91.0 yQMjaotw51.6-102.9 [facility] HospitalComment on above:Performed By: #### DALILA #### [place] [address] Consumer Studies Professor: Collin De La Fuente MDNRBC Automated0.0 per 100 WBCNormal0.0[facility] HospitalComment on above:Performed By: #### CHERYLGP #### [address] [address] Consumer Studies Professor: Constantino Bradytelawanda mean volume (Bld) [Entitic vol]10.2 fL Normal8.1-13.5[facility] CenterComment on above:Performed By: #### CHERYLGP #### [address] [address] Consumer Studies Professor: Constantino Bradyterocio (Bld) [#/Vol]321 10*3/zJWfsqxt880-969 [facility] HospitalComment on above:Performed By: #### CHERYLGP #### [address] [address] Consumer Studies Professor: Collin De La Fuente MDRBC (Bld) [#/Vol]4.22 10*6/uLNormal3.95-5.11 [facility] HospitalComment on above:Performed By: #### SWCGP #### [address] [address] Consumer Studies Professor: GEOFF BradyBC (Bld) [#/Vol]22.2 10*3/uLHigh3.5-11.3[facility] HospitalComment on above:Performed By: #### IMELDACGP #### [address] [address] Consumer Studies Professor: Russell Brady Diff PerformedNOT REPORTEDNormalMercy Delray HospitalComment on above:Performed By: #### IMELDACGP #### [address] [address] Consumer Studies Professor: Manoj Brady EstimateNOT REPORTEDNormalMercy Delray HospitalComment on above:Performed By: #### IMELDACGP #### [address] [address] Consumer Studies Professor: ROBERT Brady morphology finding Nom (Bld)NOT REPORTED NormalMercy Delray HospitalComment on above:Performed By: #### CHERYLGP #### [address] [address] Consumer Studies Professor: YASMIN Brady MorphologyNOT REPORTEDNormalMercy Delray HospitalComment on above:Performed By: #### IMELDACGP #### [address] [address] Consumer Studies Professor: Collin De La Fuente MDHepatic Function PanelOrdered By: Cisco Lopez on 40-66-8358Gjeuxdk [Mass/Vol]3.7 g/dL3.5 - 5.2 g/dLSt. John Of God HospitalWithin3 Phone: albumin/Globulin [Mass ratio]1.1 {ratio}[employer] Phone: aLP (Bld) [Catalytic activity/Vol]68 U/L35 - 104 U/L [employer] Phone: aLT [Catalytic activity/Vol]36 U/LHigh5 - 33 U/LMerc [employer] Phone: aST [Catalytic activity/Vol]37 U/LHigh<32[facility] Phone: bilirubin [Mass/Vol]mg/dLLow0.3 - 1.2 mg/dLSt. John Of God HospitalWithin3 Phone: bilirubin, IndirectCANNOT BE CALCULATED0.00 - 1.00 mg/dLSt. John Of God HospitalWithin3 Phone: biliwtbin.indirect [Mass/Vol]mg/dL<0.31 mg/dLSt. John Of God HospitalWithin3 Phone: Free PSA/Total PSA [Mass fraction]7.0 g/dL6.4 - 8.3 g/dLSt. John Of God HospitalWithin3 Phone: GlobulinNOT REPORTED1.5 - 3.8 g/dLSt. John Of God HospitalWithin3 Phone: Interpretation and review of laboratory results AbnormalSt. John Of God HospitalWithin3 Phone: [facility] Phone: laboratory - Chemistry and Chemistry - challenge Ordered By: Cisco Lopez on [id number]/1.73 sq M.predicted MDRD (S/P/Bld) [Vol rate/Area][facility] HospitalUniversity[facility] Phone: comment on above:Average GFR for 20-29 years old: 116 mL/min/1.73sq m Chronic Kidney Disease: <60 mL/min/1.73sq m Kidney failure: <15 mL/min/1.73sq m eGFR calculated using average adult body mass. Additional eGFR calculator available at: http://www.[employer]/multiple_crcl_2012.htm Stage 1: Some kidney damage normal GFR Stage 2: Mild kidney damage GFR 60-89 Stage 3: Moderate kidney damage GFR 30-59 Stage 4: Severe kidney damage GFR 15-29 Stage 5: Severe kidney damage GFR <15 ESRD - chronic treatment by dialysis or transplant Lipaseon [id number] [Catalytic activity/Vol]40 U/ZIwfeex92-88Gtyeb Tiffin HospitalComment on above:Performed By: #### BMPX, LIP, LIVP, CDP #### [address] [place], [place] [phone] Consumer Studies Professor: Amna Clements MDLipaseOrdered By: Cisco Lopez on 56-30-2161Xqzwmd [Catalytic activity/Vol]40 U/L13 - 60 U/LMercy Health Work Phone: liver Profileon [id number] [Mass/Vol]mg/dLLow 0.3-1.2MHolzer Health System HospitalComment on above:Performed By: #### BMPX, LIP, LIVP, CDP #### [address] [place], [place] [phone] Consumer Studies Professor: Amna Clements MDBilirubin, IndirectCANNOT BE CALCULATEDNormal 0.00-1.00MerOur Lady of Mercy Hospital HospitalComment on above:Performed By: #### BMPX, LIP, LIVP, CDP #### [address] [place] [address] Consumer Studies Professor: Amna Clements MDAlbumin [Mass/Vol]3.7 g/dLNormal3.5-5.2MHolzer Health System HospitalComment on above:Performed By: #### BMPX, LIP, LIVP, CDP #### [address] [place] [address] Consumer Studies Professor: Amna Clements MDAlbumin/Glob Ratio1.8Jlmhbc3.0-2.5[facility] CenterComment on above:Performed By: #### BMPX, LIP, LIVP, CDP #### [address] [place], [place] [phone] Consumer Studies Professor: Amna Clements MDAlkaline Phos68 U/UWszgwe08-858GyccaUpper Valley Medical CenterComment on above:Performed By: #### BMPX, LIP, LIVP, CDP #### [address] [place], [place] [phone] Consumer Studies Professor: Amna Clements MDALT [Catalytic activity/Vol]36 U/LHigh5-33[facility] Medical CenterComment on above:Performed By: #### BMPX, LIP, LIVP, CDP #### [address] [place] [address] Consumer Studies Professor: Amna Clements MDAST [Catalytic activity/Vol]37 U/LHigh<32[facility] CenterComment on above:Performed By: #### BMPX, LIP, LIVP, CDP #### [address] [place], [place] [phone] Consumer Studies Professor: Amna Clements MDBilirubin.indirect [Mass/Vol]mg/dLNormal<0.31MerOur Lady of Mercy Hospital HospitalComment on above:Performed By: #### BMPX, LIP, LIVP, CDP #### [address] [place], [place] [phone] Consumer Studies Professor: Amna Clements MDProtein [Mass/Vol]7.0 g/dLNormal6.4-8.3[facility] HospitalComment on above:Performed By: #### BMPX, LIP, LIVP, CDP #### [address] [place], [place] [phone] Consumer Studies Professor: Amna Clements MDGlobulin FractionNOT REPORTEDNormal1.5-3.8MerUniversity of [facility] Health Center/John Dempsey HospitalComment on above:Performed By: #### BMPX, LIP, LIVP, CDP #### [address] [place], [place] [phone] Consumer Studies Professor: Amna Clements MDMicroscopic UrinalysisOrdered By: Cisco Lopez on 04-14-2021-[facility] Work Phone: amorphous, UANOT REPORTEDNoneMercy Health Work Phone: bacteria, UATRACEAbnormalNoneMercy Health Work Phone: casts UANOT REPORTED/LPFMercy Health Work Phone: crystals, UANOT REPORTEDNone /HPFMercy Health Work Phone: epithelial Cells UA10 TO 20[facility] Work Phone: Interpretation and review of laboratory results AbnormalMercy Health Work Phone: Mucus, UATRACEAbnormalNoneMercy Health Work Phone: Other Observations UANOT REPORTEDNOT REQ.[facility] Work Phone: rBC, UA0 TO 2[facility] Work Phone: renal Epithelial, UANOT REPORTED0 /HPFMercy Health Work Phone: Trichomonas, UANOT REPORTEDNoneMercy Health Work Phone: WBC, UA0 TO 2[facility] Work Phone: Yeast, UANOT REPORTEDNoneMercy Health Work Phone: [facility] Work Phone: No Panel InformationOrdered By: Cisco Lopez on [id number] Work Phone: UA w/Reflex Cultureon [id number], SemiQt,Ur NegativeNormalNEGMercy Delray HospitalComment on above:Performed By: #### CHERYLGP #### [facility] [address] [place] [address] Consumer Studies Professor: Bishop Brady, UrineNegativeNormalNEGMercy Delray HospitalComment on above:Performed By: #### CHERYLGP #### [facility] [address] [place] [address] Consumer Studies Professor: AIDE Bradylarity (U)CLEARNormalCLEARUpper Valley Medical Center Comment on above:Performed By: #### SWCGP #### [facility] [address] [place] [address] Consumer Studies Professor: AIDE Bradyolor (U)YELLOWNormalYELMerUniversity of Connecticut Health Center/[facility] Comment on above:Performed By: #### SWCGP #### [facility] [address] [place] [address] Consumer Studies Professor: Collin De La Fuente MDGlucose Ql (U)NegativeNormalNEGUpper Valley Medical CenterComment on above:Performed By: #### SWCGP #### [facility] [address] [place] [address] Consumer Studies Professor: Collin De La Fuente MDKetones Ql (U)TRACEAbnormalNEGUpper Valley Medical CenterComment on above:Performed By: #### IMELDACGP #### [facility] [address] [place] [address] Consumer Studies Professor: Collin De La Fuente MDLeukocyte esterase Test strip Ql (U)Negative NormalNEGUpper Valley Medical CenterComment on above:Performed By: #### SWCGP #### [facility] [address] [place] [address] Consumer Studies Professor: Collin De La Fuente MDNitrite,UrNegativeNormalNEGUpper Valley Medical Center Comment on above:Performed By: #### SWCGP #### [facility] [address] [place] [address] Consumer Studies Professor: Collin De La Fuente [facility],Ur5.5Ptxmrh3.0-9.0[facility] Comment on above:Performed By: #### SWCGP #### [facility] [address] [place] [address] Consumer Studies Professor: TINO Bradyrotein Ql (U)TRACEAbnormalNEGMercy Delray HospitalComment on above:Performed By: #### SWNicGP #### [facility] [address] [place] [address] Consumer Studies Professor: DEV Bradypec. [place],Ur>1.280Dkqx2.010-1.020[facility] HospitalComment on above:Performed By: #### CHERYLGP #### [facility] [address] [place] [address] Consumer Studies Professor: Collin De La Fuente MDUrobilinogen,UrNormalNormalNORMMercy Delray HospitalComment on above:Performed By: #### CHERYLGP #### [facility] [address] [place] [address] Consumer Studies Professor: AIDE BradyommentNOT REPORTEDNormalC[facility] Comment on above:Performed By: #### SWNicGP #### [facility] [address] [place] [address] Consumer Studies Professor: Collin De La Fuente MDUrinalysis Reflex to CultureOrdered By: Cisco Lopez on 08-27-8586Abzghbnzo UrineNegativeNEGATIVEMercy Health Work Phone: color, UAYELLOWYELLOWMercy Health Work Phone: Glucose, UrNegativeNEGATIVEMercy Health Work Phone: Interpretation and review of laboratory results AbnormalMercy Health Work Phone: Ketones Ql (U)TRACEAbnormalNEGATIVEMercy Health Work Phone: leukocyte esterase Test strip Ql (U)NegativeNEGATIVE [facility] Work Phone: Nitrite, UrineNegativeNEGATIVEMercy Health Work Phone: pH, UA5.5[facility] Work Phone: protein, UATRACEAbnormalNEGATIVEMercy Health [facility] Work Phone: specific [place], UA>1.030HighMercy Health Work Phone: Turbidity UACLEARCLEARMer Health Work Phone: Urinalysis CommentsNOT REPORTEDMer Health Work Phone: Urine HgbNegativeNEGATIVEMercy Health Anderson Hospital [facility] Work Phone: Urobilinogen, UrineNormalNormalMercy Health Anderson Hospital [facility] Work Phone: [facility] Work Phone: Urinalysis,Microon 04-14-2021-----NormalCleveland Clinic Children'S Hospital For Rehabilitation HospitalComment on above:Performed By: #### STEPHANIE UA #### [facility] [address] [place] [address] Dr. Zimmerman, [facility]83 Consumer Studies Professor: Gogo BauercteriaTRAUC Medical Center Comment on above:Performed By: #### STEPHANIE UA #### [address] [place], [place] [id number] Consumer Studies Professor: Amna Clements MDEpithelial cells LM Ql (Urine sed)10 TO 20Normal 0-25[facility] Medical CenterComment on above:Performed By: #### STEPHANIE UA #### [facility] [address] [place] [address] Consumer Studies Professor: GOYO Bauerucus StrandsTRACEJ.W. Ruby Memorial HospitalComment on above:Performed By: #### STEPHANIE UA #### [facility] [address] [place] [address] Dr. [place], [place] [address] Consumer Studies Professor: Amna Clements MDUrine RBC's0 TO 0Tzhfju5-9OdyesBucyrus Community Hospital Comment on above:Performed By: #### UMICAO, UA #### [facility] [address] [place] [address] Consumer Studies Professor: Slim Bauer WBC's0 TO 6Qdkjyh1-0MvvrjUpper Valley Medical Center Comment on above:Performed By: #### YINKAO, UA #### [facility] [address] [place] [address] [place] [address] Consumer Studies Professor: Shira Bauer sediment LM Ql (Urine sed)NOT REPORTED NormalNONEMey Delray HospitalComment on above:Performed By: #### YINKAO, UA #### [facility] [address] [place] [address] [place] [address] Consumer Studies Professor: AIDE BauerastsNOT REPORTEDNormalUpper Valley Medical Center Comment on above:Performed By: #### YINKAO, UA #### [facility] [address] [place] [address] [place] [address] Consumer Studies Professor: AIDE Bauerrystals LM Nom (Urine sed)NOT REPORTEDNormalNONE [facility] HospitalComment on above:Performed By: #### YINKAO, UA #### [facility] [address] [place] [address] [place] [address] Consumer Studies Professor: Amna Clements MDEpithelial, RenalNOT VCOCLUKFBneomn1Rxhtv Delray HospitalComment on above:Performed By: #### UMICAO, UA #### [facility] [address] [place] [address] [place] [address] Consumer Studies Professor: Amna Clements MDOther ObservationsNOT REPORTEDNormalNREQSt. John Of God Hospitalcy Delray HospitalComment on above:Performed By: #### UMICAO, UA #### [facility] [address] [place] [address] [place] [address] Consumer Studies Professor: Amna Clements MDTrichomonasNOT REPORTEDNormalNONEMeCentral Mississippi Residential Center HospitalComment on above:Performed By: #### UMICAO, UA #### [facility] [address] [place] [address] Consumer Studies Professor: Dong Bauer [facility] Comment on above:Performed By: #### STEPHANIE, UA #### [facility] [address] [place] [address] Consumer Studies Professor: JOVANI Bauer-Dimer Teston 42-47-5165F-Dimer Test0.44 mg/L FEU Normal0.00-0.59Upper Valley Medical CenterComment on above:Result Comment: When combined with a [...] with distal DVT.Performed By: #### SWC #### [facility] [address] [place] [address] Consumer Studies Professor: JOVANI Brady-Dimer, QuantitativeOrdered By: Lidia Núñez on 62-80-8965D-Dimer, Quant0.44[facility] [employer] Phone: comment on above: When combined with [...] in patients with distal DVT. Chlamydia/GC,DNA Ampon 54-44-7853Arpbeunno ProbeNegativeNormalNEGUpper Valley Medical CenterComment on above:Result Comment: CHLAMYDIA TRACHOMATIS DNA not [...] an alternative nucleic acid target.Performed By: #### [facility] #### [address] [place] [address] Consumer Studies Professor: Collin De La Fuente MDGonorrhea ProbeNegativeNormalNEGUpper Valley Medical CenterComascension standish hospital on above:Result Comment: NEISSERIA GONORRHOEAE DNA not [...] nucleic acid target.Performed By: #### SWCGP #### [address] [place], [place] [phone] Consumer Studies Professor: AIDE Bradyult,Urineon 26-49-4155Fphq,UrineSpecimen Description .CLEAN CATCH URINE Special Requests NOT REPORTED Culture NO SIGNIFICANT GROWTH Report Status FINAL 03/11/2021NoUC HealthComment on above: Performed By: #### URC #### [address] [address] Consumer Studies Professor: Collin De La Fuente MD [address] [place] [address] Consumer Studies Professor: Amna Clements MDHCG, ,Urineon 56-59-7135Xalk HCG ( test) Ql (U)PositiveAbnormalNEGUpper Valley Medical CenterComment on above: Result Comment: If HCG results do not concur with clinical observations, additional testing to confirm result is recommended. This test is not labeled for use as a tumor marker. [facility] has confirmed the use of plasma for this test. This has not been cleared or approved by the U.S. Food and Drug Administration. The FDA has determined that such clearance is not necessary.Performed By: #### SWCGP #### [address] [address] Consumer Studies Professor: Collin De La Fuente MDTrichomonas/Wet Prepon 15-16-4758Gslntxgsghf/Wet PrepSpecimen Description .VAGINA Special Requests NOT REPORTED Direct Exam NO TRICHOMONAS SEEN NO YEAST OBSERVED RARE CLUE CELLS SEEN Report Status FINAL 03/10/2021NoUC HealthComment on above: Performed By: #### WP #### [address] [place] [address] Consumer Studies Professor: Amna Clements MDUA w/Reflex Cultureon 06-89-3940Toipcqptssx Acid,UrNegativeNormalNEGUpper Valley Medical CenterComment on above:Performed By: #### IMELDACGP #### [address] [address] Consumer Studies Professor: Collin De La Fuente MDBilirubin, SemiQt,UrNegativeNormalNEGMercy Delray HospitalComment on above:Performed By: #### IMELDACGP #### [address] [address] Consumer Studies Professor: AIDE Bradyolor (U)YELLOWNormalYELMerUniversity of Connecticut Health Center/[facility] Comment on above:Performed By: #### IMELDACGP #### [address] [address] Consumer Studies Professor: Collin De La Fuente MDGlucose Ql (U)NegativeNormalNEGMercy Windham HospitalComment on above:Performed By: #### IMELDACGP #### [address] [address] Consumer Studies Professor: Collin De La Fuente MDHemoglobin, UrNegativeNormalNEGMercy Delray HospitalComment on above:Performed By: #### CHERYLGP #### [address] [address] Consumer Studies Professor: Collin De La Fuente MDLeukocyte esterase Test strip Ql (U)LARGE AbnormalNEGMercy Windham HospitalComment on above:Performed By: #### IMELDACGP #### [address] [address] Consumer Studies Professor: Collin De La Fuente MDNitrite,UrNegativeNormalNEGMerUniversity of Connecticut Health Center/[facility] Comment on above:Performed By: #### IMELDACGP #### [address] [address] Consumer Studies Professor: Collin De La Fuente [facility],Ur7.4Ldgrvl1.0-9.0[facility] Comment on above:Performed By: #### IMELDACGP #### [address] [address] Consumer Studies Professor: TINO Bradyrotein Ql (U)NegativeNormalNEGMercy Delray HospitalComment on above:Performed By: #### IMELDACGP #### [facility] [address] [place] [address] Consumer Studies Professor: DEV Bradypec. [place],Ur1.465Iydouu1.010-1.020Mer[facility] Delray HospitalComment on above:Performed By: #### IMELDACGP #### [facility] [address] [place] [address] Consumer Studies Professor: Collin De La Fuente MDTurbidityCLOUDYAbnormalCLEARMercy Delray HospitalComment on above:Performed By: #### SWCGP #### [facility] [address] [place] [address] Consumer Studies Professor: Noemy Bradybilinogen,UrNormalNormalNORMMercy Delray HospitalComment on above:Performed By: #### IMELDACGP #### [facility] [address] [place] [address] Consumer Studies Professor: Paul BradyNOT REPORTEDNormalMercy Delray Hospital Comment on above:Performed By: #### IMELDACGP #### [facility] [address] [place] [address] Consumer Studies Professor: Collin De La Fuente MDUrinalysis,Microon 03-10-2021-----NormalMercy Delray HospitalComment on above:Performed By: #### SWCGP #### [facility] [address] [place] [address] Consumer Studies Professor: Shira Brady sediment LM Ql (Urine sed)1+Abnormal NONEMercy Delray HospitalComment on above:Performed By: #### SWCGP #### [facility] [address] [place] [address] Consumer Studies Professor: Collin Madoff, MDBacteria3+AbnormalNONEMey [facility] Hospital Comment on above:Performed By: #### CHERYLGP #### [facility] [address] [place] [address] Consumer Studies Professor: Collin De La Fuente MDEpithelial cells LM Ql (Urine sed)20 TO 50Normal 0-25Mercy Delray HospitalComment on above:Performed By: #### CHERYLGP #### [address] [address] Consumer Studies Professor: Slim Brady RBC'sNoneNormal0-2[facility] Comment on above:Performed By: #### CHERYLGP #### [address] [address] Consumer Studies Professor: Slim Brady WBC's10 TO 54Ypnqzl3-6Avdvq Delray HospitalComment on above:Performed By: #### CHERYLGP #### [address] [address] Consumer Studies Professor: AIDE BradyastsNOT REPORTEDNormalSt. John Of God Hospitalcy [facility] Comment on above:Performed By: #### CHERYLGP #### [address] [address] Consumer Studies Professor: AIDE Bradyrystals LM Nom (Urine sed)NOT REPORTEDNormal NONEMercy Delray HospitalComment on above:Performed By: #### CHERYLGP #### [address] [address] Consumer Studies Professor: Collin De La Fuente MDEpithelial, RenalNOT XZERYXJCJfcrxx3Jlarr Delray HospitalComment on above:Performed By: #### CHERYLGP #### [address] [address] Consumer Studies Professor: GOYO Bradyucus StrandsNOT REPORTEDNormalNONEMercy Delray HospitalComment on above:Performed By: #### CHERYLGP #### [address] [address] [place] [address] Consumer Studies Professor: Collin De La Fuente MDOther ObservationsNOT [facility] HospitalComment on above:Performed By: #### SWCGP #### [facility] [address] [place] [address] Consumer Studies Professor: Collin De La Fuente MDTrichomonasNOT [facility] HospitalComment on above:Performed By: #### SWCGP #### [facility] [address] [place] [address] Consumer Studies Professor: Collin De La Fuente MDYeastLORAINE [facility] Comment on above:Performed By: #### SWCGP #### [facility] [address] [place] [address] Consumer Studies Professor: AIDE Bradyult,Urineon 22-39-2663Ukcc,UrineSpecimen Description .CLEAN CATCH URINE Special Requests NOT REPORTED Culture NO SIGNIFICANT GROWTH Report Status FINAL 03/02/2021NoUC HealthComment on above: Performed By: #### URC #### [facility] [address] [place] [address] Consumer Studies Professor: Collin De La Fuente MD [facility] [address] [place] [address] [place] [address] Consumer Studies Professor: AIDE Bauer. Trachomatis, External ResultOrdered By: Historical Provider on 1C. Trachomatis, External ResultNegativeMercy Health Work Phone: comment on above:William Joel RN/confirmed with gIor Kinsey RN N. Gonorrhoeae, External ResultOrdered By: Historical Provider on 03-01-2021N. Gonorrhoeae, External ResultNegativeMercy Health Work Phone: comment on above:William Joel RN/confirmed with Igor Kinsey RN No Panel InformationOrdered By: Historical Provider on 71-72-1240[facility] Work Phone: Microscopic Urinalysison 01-91-7753Tjiaqdnde, UANOT REPORTEDNoneMercy Health Work Phone: bacteria, UANOT REPORTEDNoneMercy Health Work Phone: casts UANOT REPORTED/LPFMercy Health Work Phone: crystals, UANOT REPORTEDNone /HPFMercy Health Work Phone: epithelial Cells UA50 TO 100[facility] Work Phone: Mucus, UANOT REPORTEDNoneMercy Health Work Phone: Other Observations UANOT REPORTEDNOT REQ.[facility] Work Phone: rBC (U) [#/Vol]0 TO 2[facility] Work Phone: renal Epithelial, UANOT REPORTED0 /HPFMercy Health Work Phone: Trichomonas, UANOT REPORTEDNoneMercy Health Work Phone: WBC, UA20 TO 50[facility] Work Phone: Yeast, UANOT REPORTEDNoneMercy Health Work Phone: -[facility] [employer] Work Phone: Otheron 66-73-9367Eonfam intrauterine with an estimated gestational age of 13 weeks and 1 day by current ultrasoundMercy Health Anderson Hospital [employer] Work Phone: edi, [facility] Incoming Radiant Results From [employer]Always [employer] - 02/28/2021 1:48 PM EDT EXAMINATION: TRANSABDOMINAL [...] posteriorly to the right. Pole: Single pole [place] Rump Length: 6.8 cm Heart Rate: 160 [...] weeks and 1 day by current ultrasound [employer] Phone: eXAMINATION: TRANSABDOMINAL FIRST TRIMESTER OBSTETRIC PELVIC [...] posteriorly to the right. Pole: Single pole [place] Rump Length: 6.8 cm Heart Rate: 160 [...] 6 days Estimated Due Date: 09/04/2021, 08/30/2021 [facility]: us DUP ABD PEL RETRO SCROT LIMITEDon 34-29-7262HW DUP ABD PEL RETRO SCROT LIMITEDEXAMINATION: TRANSABDOMINAL [...] posteriorly to the right. Pole: Single pole [place] Rump Length: 6.8 cm Heart Rate: 160 [...] by: Mariano Min MD 02/28/21 Final resultNormalMercy Windham HospitalUS OB LESS THAN 14 WEEKS SINGLE OR FIRST GESTATIONon 03-83-7453HB OB LESS THAN 14 WEEKS SINGLE OR [...] posteriorly to the right. Pole: Single pole [place] Rump Length: 6.8 cm Heart Rate: 160 [...] Signed by: Mariano Min MD 02/28/21 Final resultNormalMerUniversity of Connecticut Health Center/John Dempsey HospitalUrinalysis, Routineon 02-28-2021 Acetoacetic Acid,UrNegativeNormalNEGMercy Delray HospitalComment on above: Performed By: #### STEPHANIE UA #### [facility] [address] [place] [address] Dr. Zimm[place], [facility]83 Consumer Studies Professor: Amna Clements MDBilirubin, SemiQt,UrNegativeNormalNEGMercy Delray HospitalComment on above:Performed By: #### BERNARDINO BROWN #### [address] [place] [phone] Consumer Studies Professor: AIDE Bauerolor (U)YELLOWNormalYELMercy [facility]ham Hospital Comment on above:Performed By: #### STEPHANIE UA #### [address] [place], [facility]83 Consumer Studies Professor: Amna Clements MDGlucose Ql (U)NegativeNormalNEGMercy Windham HospitalComment on above:Performed By: #### BERNARDINO BROWN #### [address] [place] [phone] Consumer Studies Professor: Amna Clements MDHemoglobin, UrNegativeNormalNEGMercy Delray HospitalComment on above:Performed By: #### YINKAO, UA #### [facility] [address] [place] [address] Consumer Studies Professor: Amna Clements MDLeukocyte esterase Test strip Ql (U)MODERATE AbnormalNEGMercy Windham HospitalComment on above:Performed By: #### YINKAO, UA #### [facility] [address] [place], [place] [address] Consumer Studies Professor: Belén Bauertrite,UrNegativeNormalNEGUpper Valley Medical Center Comment on above:Performed By: #### STEPHANIE, UA #### [facility] [address] [place] [address] [place] [address] Consumer Studies Professor: TINO BauerH,Ur7.4Zxwdxk6.0-9.0[facility] Medical CenterComment on above:Performed By: #### STEPHANIE, UA #### [facility] [address] [place] [address] [place] [address] Consumer Studies Professor: TINO Bauerrotein Ql (U)NegativeNormalNEGUpper Valley Medical CenterComment on above:Performed By: #### STEPHANIE, UA #### [facility] [address] [place] [address] [place] [address] Consumer Studies Professor: DEV Bauerpec. [place],Ur1.061Vbclbm7.010-1.020[facility] Medical CenterComment on above:Performed By: #### STEPHANIE, UA #### [facility] [address] [place] [address] [place] [address] Consumer Studies Professor: ROSALIO BauerurbidityCLEARNormalCLEARUpper Valley Medical Center Comment on above:Performed By: #### STEPHANIE, UA #### [facility] [address] [place], [place] [address] Consumer Studies Professor: Noemy Bauerbilinogen,UrNormalNormalNORMMercy Delray HospitalComment on above:Performed By: #### UMWILIAMO, UA #### [facility] [address] [place] [address] Consumer Studies Professor: AIDE BauerombaltazarNOT REPORTEDNormMount St. Mary Hospital Comment on above:Performed By: #### STEPAHNIE, UA #### [facility] [address] [place] [address] Consumer Studies Professor: Amna Clements MDUrinalysis, reflex to microscopicon 02-28-2021 [...] protein (U) [Mass/Vol]NegativeNEGATIVEMercy Health Work Phone: specific [place], UA1.020[facility] Work Phone: Turbidity UACLEARCLEARMercy Health Work Phone: Urinalysis CommentsNOT REPORTEDMercy Health Work Phone: Urine HgbNegativeNEGATIVEMercy Health Work Phone: Urobilinogen, UrineNormalNormalMercy Health Work Phone: Urinalysis,Microon 02-28-2021-----NormalMercy Delray HospitalComment on above:Performed By: #### UMICAO, UA #### [facility] [address] [place] [address] Consumer Studies Professor: Amna Clements MDEpithelial cells LM Ql (Urine sed)50 TO 100Normal 0-25Mercy Delray HospitalComment on above:Performed By: #### UMICAO, UA #### [facility] [address] [place], [place] [phone] Consumer Studies Professor: Slim Bauer RBC's0 TO 4Qsatmh6-4IqowgUniversity of Connecticut Health Center/[facility] Comment on above:Performed By: #### UMICAO, UA #### [facility] [address] [place], [place] [phone] Consumer Studies Professor: Slim Bauer WBC's20 TO 64Mqygfr8-0QgtpyUpper Valley Medical Center Comment on above:Performed By: #### CAROLEICAO, UA #### [facility] [address] [place] [address] [place] [address] Consumer Studies Professor: Shira Bauer sediment LM Ql (Urine sed)NOT REPORTED NormalNONEMeCentral Mississippi Residential Center HospitalComment on above:Performed By: #### UMICAO, UA #### [facility] [address] [place] [address] [place] [address] Consumer Studies Professor: mAna Clements MDBacteriaNOT REPORTEDNormalNONEMeCentral Mississippi Residential Center HospitalComment on above:Performed By: #### UMICAO, UA #### [facility] [address] [place], [place] [phone] Consumer Studies Professor: AIDE BauerastsNOT REPORTEDNormalUpper Valley Medical Center Comment on above:Performed By: #### UMICAO, UA #### [facility] [address] [place], [place] [phone] Consumer Studies Professor: AIDE Bauerrystals LM Nom (Urine sed)NOT REPORTEDNormalNONE [facility] HospitalComment on above:Performed By: #### UMICAO, UA #### [facility] [address] [place] [address] [place] [address] Consumer Studies Professor: Amna Clements MDEpithelial, RenalNOT NPYXULOYBpbljh8Dyvmx Delray HospitalComment on above:Performed By: #### UMICAO, UA #### [facility] [address] [place] [address] Consumer Studies Professor: GOYO Bauerucus StrandsNOT REPORTEDNormalNONEMey Delray HospitalComment on above:Performed By: #### UMICAO, UA #### [facility] [address] [place] [address] [place] [address] Consumer Studies Professor: Amna Clements MDOther ObservationsNOT REPORTEDNormalNREQSt. John Of God Hospitalcy Delray HospitalComment on above:Performed By: #### UMWILIAMO, UA #### [facility] [address] [place] [address] [place] [address] Consumer Studies Professor: Leni BauerhomonasNOT REPORTEDNormalNONEMey Delray HospitalComment on above:Performed By: #### UMICAO, UA #### [facility] [address] [place] [address] [place] [address] Consumer Studies Professor: Hung BauerastNOT REPORTEDNormalNONEMey [facility] Hospital Comment on above:Performed By: #### UMICAO, UA #### [facility] [address] [place] [address] [place] [address] Consumer Studies Professor: Amna Clements MDABO, External ResultOrdered By: Historical Provider on 16-52-6935ZTA, External ResultABMercy Health Work Phone: comment on above:William Joel RN/confirmed with Igor Kinsey RN HIV, External ResultOrdered By: Historical Provider on 16-79-2436EYQ, External ResultNon-ReactiveMercy Health Work Phone: comment on above:William Joel RN/confirmed with Igor Kinsey RN Hepatitis B, External ResultOrdered By: Historical Provider on 98-46-6692Bxq B, External ResultNegativeMercy Health Work Phone: comment on above:William Joel RN/confirmed with Igor Kinsey RN Hepatitis C Antibody, External ResultOrdered By: Historical Provider on 49-83-1378Ghncjjigu C Antibody, External ResultNegativeMercy Health Work Phone: comment on above:William Joel RN/confirmed with Igor Kinsey RN No Panel InformationOrdered By: Historical Provider on 52-87-8461Uutnq Health Work Phone: rPR, External LabOrdered By: Historical Provider on 53-64-8738KVJ, External ResultNon-ReactiveMercy Health Work Phone: comment on above:William Joel RN/confirmed with Igor Kinsey RN Rh Factor, External ResultOrdered By: Historical Provider on 48-08-9126Xn Factor, External ResultPositiveMercy Health Work Phone: comment on above:William Joel RN/confirmed with Igor Kinsey RN Rubella Titer, External ResultOrdered By: Historical Provider on 02-17-2021 Rubella Titer, External ResultimmuneMercy Health Work Phone: comment on above:William Joel RN/confirmed with Igor Kinsey RN Vital Signs Date TimeVital SignValuePerforming YndwkztoeVxnvipzz23-33-4522 15:20-0400Body mass index (BMI) [Ratio]32.95 kg/z3Lgiwf [employer] Work Phone: [employer] ProjectsPiqhsluige43-63-3563 15:20-0400Body uhrorz37.11 kgCorey [employer] Work Phone: [employer] ProjectsVmkhukpsgs60-71-4059 15:20-0400Diastolic blood yozhthgo01 mm[Hg]Clyde [employer] Work Phone: [employer] ProjectsFldzsmxmzw79-14-9494 15:20-0400Systolic blood jgcjlgow110 mm[Hg]Clydemalik Anando DO Work Phone: [facility] HospitalNfbpbdalet56-03-3172 14:21-0400Body mass index (BMI) [Ratio]29.82 kg/s6Bhqmv Leslie DO Work Phone: [facility] HospitalIbpkoudwbp17-08-8221 14:21-0400Body exkfyz94.58 kgCorey Leslie DO Work Phone: [facility] HospitalDvvlzlxdgr41-16-5304 14:21-0400Diastolic blood tlvpjuyk24 mm[Hg]Clydemalik Anando DO Work Phone: [facility] HospitalYmybtrwozx94-34-4787 14:21-0400Systolic blood jcuamakq982 mm[Hg]Clyde Leslie DO Work Phone: [facility] HospitalXzphbrlsms20-82-3986 15:20-0400Body mass index (BMI) [Ratio]29.85 kg/m2Quynh Christina WILDER Work Phone: [facility] HospitalWtulvjsago33-20-1998 15:20-0400Body fddbeb47.67 kgAmy Christina PA Work Phone: [facility] HospitalEalfspjpyt03-74-4483 15:20-0400Diastolic blood hpvoeazb51 mm[Hg]Quynh Vasquez PA Work Phone: [facility] HospitalSzjrsthllx31-18-3669 15:20-0400Systolic blood pqvyliey601 mm[Hg]Quynh WILDER Work Phone: [facility] HospitalRlxdbeixmb04-22-3378 09:31-0500Body hrjxit631.9 cmJamila Velez MD Work Phone: [facility] HospitalShpfblumep38-28-9861 09:31-0500Body mass index (BMI) [Ratio]29.89 kg/m2Jamila Velez MD Work Phone: [facility] HospitalRxwgccbwgo18-20-2205 09:31-0500Body temperature 98.6 [degF]Jamila Velez MD Work Phone: [facility] HospitalPbdcpohdhe36-32-0592 09:31-0500Body dvymrv67.76 kgJamila Velez MD Work Phone: [facility] HospitalSfzlllrecu61-09-3174 09:31-0500Diastolic blood mm[Hg]Jamila Velez MD Work Phone: [facility] HospitalClhpdvomto19-92-6565 09:31-0500Heart rate73 /min Jamila Velez MD Work Phone: [facility] HospitalDzeauxswgf09-28-1943 09:31-2535BgP9% (BldA) [Mass fraction]98 %Jamila Velez MD Work Phone: [facility] HospitalAxchuydmme38-88-4489 09:31-0500Systolic blood yazvxnps737 mm[Hg]Jamila Velez MD Work Phone: [facility] HospitalCssttaxeyg93-26-4105 14:04-0500Body mass index (BMI) [Ratio]31.2 kg/k2Xqssc Leslie DO Work Phone: [facility] HospitalBzatlmbbzu06-88-5614 14:04-0500Body .9 kg Clyde Leslie DO Work Phone: [facility] HospitalYiozgrjgqw48-96-0343 14:04-0500Diastolic blood iyibacbf15 mm[Hg]Clyde Leslie DO Work Phone: [facility] HospitalSrgtuzcqud93-63-4482 14:04-0500Systolic blood nuxvkzml064 mm[Hg]Clyde Leslie DO Work Phone: noP[facility] SystemsGoazzhzpbw68-79-4687 14:05-0500Body mass index (BMI) [Ratio]33.41 kg/m2Quynh WILDER Work Phone: noP[facility] SystemsEygmfxvylx81-11-7297 14:05-0500Body biuivl56.2 kg Quynh WILDER Work Phone: [facility] HospitalFyinvelxtj69-63-0184 14:05-0500Diastolic blood mm[Hg]Quynh WILDER Work Phone: noP[facility]isc[facility] SystemsKaxkmnidjb46-59-8515 14:05-0500Systolic blood fhlqedxc823 mm[Hg]Quynh WILDER Work Phone: [facility] HospitalTpovhaocle39-35-6259 15:37-0500Body mass index (BMI) [Ratio]33.44 kg/m2Amy Horner PA Work Phone: [facility] HospitalTpujtxbime78-16-9438 15:37-0500Body .29 kgAmy Christina PA Work Phone: [facility] HospitalNdiqxcdmuw62-82-6780 15:37-0500Diastolic blood jthsssbe21 mm[Hg]Quynh Vasquez PA Work Phone: [facility] HospitalLisqflajbs28-44-7132 15:37-0500Systolic blood flffoygk301 mm[Hg]Quynh Vasquez PA Work Phone: [facility] HospitalNxbmlknqdh26-44-8731 15:37-0500Body mass index (BMI) [Ratio]33.33 kg/n3Qhqbq Leslie DO Work Phone: [facility] HospitalXoviwyrkcu01-75-4467 15:37-0500Body .02 kgCorey Leslie DO Work Phone: [phone])994-[facility] HospitalFvzdtdoeeb80-27-7223 15:37-0500Diastolic blood mm[Hg]Clyde Leslie DO Work Phone: [phone])007-[facility] HospitalGvafrnxfxc56-27-8180 15:37-0500Systolic blood uxbtbzqk026 mm[Hg]Clyde Leslie DO Work Phone: [phone])568-[facility] HospitalTfyngkyzuc13-17-5784 11:59-0500Body mass index (BMI) [Ratio]33.22 kg/m2Amy Horner PA Work Phone: [facility] HospitalJozwkurguv54-37-4501 11:59-0500Body dqisej62.74 kgAmy Christina PA Work Phone: [facility] HospitalKurnpfqhfn25-66-6925 11:59-0500Diastolic blood enjtjikz14 mm[Hg]Quynh Vasquez PA Work Phone: [facility] HospitalXtuebvtsvt94-52-8897 11:59-0500Systolic blood mm[Hg]Quynh Vasquez PA Work Phone: 1(419)483-[address] [place], [place] [address]Ijvcitfwsh32-33-7583 15:57-0500Body mass index (BMI) [Ratio]32.33 kg/y3Nvuxq Leslie DO Work Phone: 1(271)133-[facility] HospitalUpsgspbvrp61-51-9929 15:57-0500Body ncywfz67.62 kgCorey Leslie DO Work Phone: [phone])821-[facility] HospitalIxfdpevxxj69-47-3480 15:57-0500Diastolic blood xxzbybvp08 mm[Hg]Clyde Leslie DO Work Phone: 1(668)172-[address] [place], [place] [address]Erxeieczas68-37-3427 15:57-0500Systolic blood ovahwdls672 mm[Hg]Clyde Leslie DO Work Phone: [phone])642-[address] [place], [place] [address]Qbibtgvsxi69-75-0333 15:02-0500Body mass index (BMI) [Ratio]32.31 kg/m2Amy Horner PA Work Phone: [phone])752-[address] [place], [place] [address]Umodrzdxxm21-91-6660 15:02-0500Body .56 kgAmy Christina PA Work Phone: [phone])644-[address] [place], [place] [address]Ccuyswguoz50-19-1990 15:02-0500Diastolic blood dofkxirq36 mm[Hg]Quynh Almonteey PA Work Phone: 1(756)195-[facility] HospitalBalpgmjopn13-49-3182 15:02-0500Systolic blood agzujkvn623 mm[Hg]Quynh Vasquez PA Work Phone: [phone])324-[facility] HospitalZdqnwpzhld88-24-7010 15:16-0500Body mass index (BMI) [Ratio]31.93 kg/m2Amy Christina PA Work Phone: [phone])591-[facility] HospitalProgress [facility] HospitalFmvzbbbwot22-66-8959 15:16-0500Body egryqu00.66 kgAmy Horner PA Work Phone: 1(591)886-[facility] HospitalYoywmlhqem91-59-5472 15:16-0500Diastolic blood vvspkmay90 mm[Hg]Quynh Christina PA Work Phone: [phone])623-[facility] HospitalOxnjczbclo79-78-7666 15:16-0500Systolic blood keilnzte038 mm[Hg]Quynh Vasquez PA Work Phone: 1(367)256-[facility] HospitalRqjhvnhknx34-03-5781 16:03-0400Body kzyhib977.9 cmJamila Velez MD Work Phone: [facility] HospitalOgubgnmudy07-13-9840 16:03-0400Body mass index (BMI) [Ratio]29.48 kg/m2Jamila Velez MD Work Phone: [place] [address]Cwbowggdep64-75-0159 16:03-0400Body .76 kgJamila Velez MD Work Phone: [place] [address]Lpuranlfsy31-31-1170 16:03-0400Diastolic blood nadczjji75 mm[Hg]Jamila Velez MD Work Phone: [place] [address]Cnxofbxdek32-99-6014 16:03-0400Heart fbjy599 /min Jamila Velez MD Work Phone: [facility] HospitalRpchsrsfvl82-44-7650 16:03-0400Respiratory rate18 /minJamila Velez MD Work Phone: [facility] HospitalXpdrruojzz09-00-5853 16:03-1097WiV3% (BldA) [Mass fraction]99 %Jamila Velez MD Work Phone: [facility] HospitalJnlddqyihu37-39-2283 16:03-0400Systolic blood mm[Hg]Jamila Velez MD Work Phone: [facility] HospitalOqyfgoygtr26-15-3429 13:50-0400Body mass index (BMI) [Ratio]29.29 kg/p4Iekqm Leslie DO Work Phone: [facility] HospitalKfhdhlhuek70-96-8538 13:50-0400Body wxlfoz86.31 kgCorey Leslie DO Work Phone: [facility] HospitalUmhnjmqibx77-89-2235 13:50-0400Diastolic blood kgvjiurj30 mm[Hg]Clyde Leslie DO Work Phone: [facility] HospitalCfdfzqqlmb25-03-6439 13:50-0400Systolic blood nuyoekss994 mm[Hg]Clyde Leslie DO Work Phone: [facility] HospitalRwsjgsijcl71-36-8447 23:58-0400Diastolic blood fotqmltw79 mm[Hg]Richar Obrien INVESTMENT REPRESENTATIVE - CNM Work Phone: [facility] Work Phone: 1(948) 129-442507-22-2021 23:58-0400Heart rate91 /Amrit Obrien INVESTMENT REPRESENTATIVE - CNM Work Phone: [facility] Work Phone: 1(564) 795-208907-22-2021 23:58-0400Respiratory rate16 /Amrit Obrien INVESTMENT REPRESENTATIVE - CNM Work Phone: [facility] Work Phone: 1(129) 817-417707-22-2021 23:58-0400Systolic blood anzidmvv477 mm[Hg] Richar Obrien APRN - CNM Work Phone: [facility] Work Phone: 1(806) 724-870007-22-2021 20:33-0400Body mqvnohpmlvu50.7 [degF]Richar Obrien INVESTMENT REPRESENTATIVE - CNM Work Phone: [facility] Work Phone: 1(380) 990-868106-29-2021 23:40-0400Body aorsxpqxbtz47.9 [degF] Rema Pool INVESTMENT REPRESENTATIVE - CNM Work Phone: [facility] [employer] Work Phone: 1(958) 951-212706-29-2021 23:40-0400Respiratory rate20 /minKathleen Pool INVESTMENT REPRESENTATIVE - CNM Work Phone: [facility] Work Phone: 1(865) 623-670006-29-2021 23:32-0400Diastolic blood xdqvnsyg60 mm[Hg] Rema Pool INVESTMENT REPRESENTATIVE - CNM Work Phone: [facility] Work Phone: 1(638) 798-211106-29-2021 23:32-0400Heart auow104 /minKathleen Pool INVESTMENT REPRESENTATIVE - CNM Work Phone: [facility] Work Phone: 1(270) 181-709306-29-2021 23:32-0400Systolic blood nxgmxzby142 mm[Hg] Rema Pool INVESTMENT REPRESENTATIVE - CNM Work Phone: [facility] [employer] Work Phone: 1(976) 289-197106-23-2021 08:59-0400Diastolic blood aevxnnsl67 mm[Hg] Richar Obrien APRN - CNM Work Phone: [facility] [employer] Work Phone: 1(823) 800-893806-23-2021 08:59-0400Heart mrax421 /Amrit Obrien APRN - CNM Work Phone: [facility] [employer] Work Phone: 1(305) 160-375406-23-2021 08:59-0400Systolic blood ooajviek725 mm[Hg] Richar Obrien APRN - CNM Work Phone: [facility] [employer] Work Phone: 1(823) 391-264606-23-2021 06:45-0400Body .9 cmSara Obrien APRN - CNM Work Phone: [facility] [employer] Work Phone: 1(230) 794-182006-23-2021 06:45-0400Body mass index (BMI) [Ratio] 29.29 kg/w3AfddeRichar Obrien APRN - CNM Work Phone: [facility] [employer] Work Phone: 1(190) 656-788906-23-2021 06:45-0400Body jlruuf75.31 kgRichar Obrien APRN - CNM Work Phone: [facility] [employer] Work Phone: 1(805) 985-573706-23-2021 06:41-0400Body kgkmhsxtwsi77.4 [degF]Richar Obrien APRN - CNM Work Phone: [facility] [employer] Work Phone: 1(798) 128-663906-23-2021 06:41-0400Respiratory rate20 /Amrit Obrien APRN - CNM Work Phone: [facility] [employer] Work Phone: 1(241) 575-401305-20-2021 03:30-0400Diastolic blood sqrmdxaz33 mm[Hg] Cisco Lopez DO Work Phone: [facility] [employer] Work Phone: 1(218) 124-415005-20-2021 03:30-1011DqF8% (BldA) [Mass fraction]100 % Cisco Andes DO Work Phone: [facility] [employer] Work Phone: 1(982) 638-397805-20-2021 03:30-0400Systolic blood ppyletfp472 mm[Hg] Cisco Andes DO Work Phone: [facility] [employer] Work Phone: 1(827) 351-255105-20-2021 01:57-0400Heart vftd383 /minJustin Andes DO Work Phone: [facility] [employer] Work Phone: 1(432) 579-107905-20-2021 01:35-0400Respiratory rate16 /minJustin Andes DO Work Phone: [facility] [employer] Work Phone: 1(713) 291-331205-20-2021 01:33-0400Body bkyvezljerj46.7 [degF]Cisco Andes DO Work Phone: [facility] [employer] Work Phone: 1(160) 270-682904-28-2021 21:13-0400Body ismlgzscsto83.59 [degF]Lidia Núñez MD Work Phone: [facility] [employer] Work Phone: 1(116) 328-530104-28-2021 21:13-0400Diastolic blood acmumwzq24 mm[Hg] Lidia Núñez MD Work Phone: [facility] [employer] Work Phone: 1(184)703-103927-13833089-18-8781 21:13-0400Heart rate98 /minSyegaby Núñez MD Work Phone: [facility] [employer] Work Phone: 1(837) [phone] 21:13-0400Respiratory rate16 /minSyegaby Núñez MD Work Phone: [facility] [employer] Work Phone: 1(980) 446-530304-28-2021 21:13-0910BeE2% (BldA) [Mass fraction]98 % Lidia Núñez MD Work Phone: [facility] [employer] Work Phone: 1(696) 321-396304-28-2021 21:13-0400Systolic blood wvydbwxy912 mm[Hg] Lidia Núñez MD Work Phone: [facility] [employer] [facility] Work Phone: 1(625) 206-298504-05-2021 12:28-0400Body Onvavhyxvjn96.81 [degF] Meche Del TacoSt. [facility] Of [facility] HospitalApply [employer] Work Phone: 1(873) 184-545204-05-2021 12:28-0400BP Wrrkciugr63 mm[Hg]Meche [employer] Work Phone: 1(635) [phone] 12:28-0400BP Zczbnywm914 mm[Hg]Meche [facility] Phone: 1(908) 630-485704-05-2021 12:28-0400Pulse (Heart Rate)97 /minDeer Del TacoSt. John Of God HospitalApply [employer]anc[employer] Limited Work Phone: 1(998) 253-723004-05-2021 12:28-0400Pulse Bcgbtviq882 %MecheWuxi [employer] Phone: 1(273) [phone] 12:28-0400Respiratory Rate15 /minDeer Del TacoSt. John Of God HospitalWithin3 Phone: Encounters Encounter DateEncounter TypeCare ProviderFacilityStart: 09-23-2025 End: 81-49-1711avokckntndBYRPH FAZIONot AvailableStart: 09-22-2025 End: 53-15-2257tjbfleihiyFIXEY FAZIONot AvailableStart: 09-22-2025 End: 68-01-7011Aakfuv outpatient visit 15 minutesCorey Leslie DO Work Phone: [facility] [place] OBGYNComment on above:Missed menses; PCOS (polycystic ovarian syndrome)Start: 09-22-2025 End: 68-79-9527Jkotxx flowsheetCorey Leslie DO Work Phone: [facility] [place] OBGYNStart: 09-22-2025 End: 78-47-5534Qalhla flowsheetCorey Leslie DO Work Phone: NOTQ [facility] OBGYNStart: 09-22-2025 End: 25-70-7512Pxflqmgdw Result EncounterCorey Leslie DO Work Phone: NORR External Department UnsolicitedStart: 03-12-2025 End: 25-92-4076Xtqzhzkjk encounterJamila Velez MD Work Phone: NOBQ FNR FMComment on above:Iron deficiency anemia due to chronic blood loss (Primary Dx)Start: 02-16-2025 End: 02-80-4624hwazshfgcwHEZCP FAZIONot AvailableStart: 02-16-2025 End: 70-31-2098Khkbzd outpatient visit 15 minutesCorey Leslie DO Work Phone: NOVP BCP OBComment on above:6 weeks follow-upStart: 02-03-2025 End: 28-27-9961chgqvqarczMSY RAMEYNot AvailableStart: 02-03-2025 End: 50-84-8600Bpjegc follow up visit related to original Malik WILDER Work Phone: [facility] BCP OBComment on above:Postoperative follow-up (Primary Dx)Start: 02-03-2025 End: 99-93-5763Aietil Bruce WILDER Work Phone: [facility] BCP OBStart: 02-03-2025 End: 39-21-3933Wfptlo Bruce WILDER Work Phone: [facility] BCP OBStart: 01-30-2025 End: 60-09-9091bslvrynnhsOAXT F BOWERNot AvailableStart: 01-24-2025 End: 14-15-6773Qwkdgv Sandra Velez MD Work Phone: noms FNR FMStart: 01-24-2025 End: 56-52-1588Pysubp Sandra Velez MD Work Phone: noms FNR FMStart: 01-24-2025 End: 80-56-0934mqvsbgtemdVYLZ F BOWERNot AvailableStart: 01-24-2025 End: 63-78-1716Tlyldn outpatient visit 15 minutesJamila Velez MD Work Phone: noms FNR FMComment on above:Acute bronchitis, unspecified organism (Primary Dx)Start: 01-12-2025 End: 23-30-8377Ddrxop follow up visit related to original pxCorey Leslie DO Work Phone: noms BCP OBComment on above:Postoperative follow-up Start: 01-12-2025 End: 90-32-5665wpwmqjjxpqOHPQU FAZIONot AvailableStart: 01-07-2025 End: 52-99-5381Gcjrunvml Result EncounterCorey Leslie DO Work Phone: noms External Department UnsolicitedStart: 01-07-2025 End: 07-14-2559Emtttnjst Result EncounterCorey Leslie DO Work Phone: noms External Department UnsolicitedStart: 01-06-2025 End: 10-90-1432Ifykxzsyc Result EncounterCorey Leslie DO Work Phone: noms External Department UnsolicitedStart: 01-06-2025 End: 95-85-7283Hmczkioni Result EncounterCorey Leslie DO Work Phone: noms External Department UnsolicitedStart: 01-06-2025 End: 51-58-5142pmixvnonmuGBW RAMEYNot AvailableStart: 01-05-2025 End: 72-68-6161exfpysitwuLMI RAMEYNot AvailableStart: 01-05-2025 End: 26-15-8941Awnodb outpatient visit 15 minutesQuynh WILDER Work Phone: noms BCP OBComment on above:Third trimester ; 37 weeks gestation of ; Antepartum premature rupture of membraneStart: 12-31-2024 End: 60-07-4181txgciasnzbSIB RAMEYNot AvailableStart: 12-31-2024 End: 91-30-0887Ncizxx outpatient visit 15 minutesQuynh WILDER Work Phone: [facility]OM[facility] BCP OBComment on above:Third trimester ; 36 weeks gestation of pregnancyStart: 12-24-2024 End: 76-91-5841omtyyqkfedMYGFT FAZIONot AvailableStart: 12-24-2024 End: 42-92-3190Nkqfnc outpatient visit 15 minutesCorey Leslie DO Work Phone: NOM[facility] BCP OBComment on above:Third trimester ; 35 weeks gestation of ; STD exposureStart: 12-24-2024 End: 12-69-3746Pmltwk flowsheetCorey Leslie DO Work Phone: [facility] BCP OBStart: 12-24-2024 End: 24-09-7333Vzwiqc flowsheetCorey Leslie DO Work Phone: [facility] BCP OBStart: 12-24-2024 End: 31-21-4738Xqgyokvqz Result EncounterCorey Leslie DO Work Phone: NOMS External Department UnsolicitedStart: 12-18-2024 End: 97-38-5723Ojrarc Bruce WILDER Work Phone: [facility] BCP OBStart: 12-18-2024 End: 47-21-3894Nipedb Bruce WILDER Work Phone: [facility] BCP OBStart: 12-18-2024 End: 59-45-7916Shnzcqqwp Result EncounterCorey Leslie DO Work Phone: [facility]OM[facility] External Department UnsolicitedStart: 12-18-2024 End: 68-55-7250nhrigypvgeKNQ RAMEYNot AvailableStart: 12-18-2024 End: 89-93-9201Zbuoba outpatient visit 15 minutesQuynh WILDER Work Phone: NOMS BCP OBComment on above:Third trimester ; 35 weeks gestation of ; PruritusStart: 12-17-2024 End: 88-01-1385Gzxejyfje Result EncounterCorey Leslie DO Work Phone: NOMS External Department UnsolicitedStart: 12-17-2024 End: 08-86-4272Qntigkhhp Result EncounterCorey Leslie DO Work Phone: NOMS External Department UnsolicitedStart: 12-01-2024 End: 68-04-3288Lnxmma outpatient visit 15 minutesCorey Leslie DO Work Phone: NOMS BCP OBComment on above:32 weeks gestation of ; Third trimester ; Constipation during in third trimesterStart: 12-01-2024 End: 82-06-9843cnclbszugyXFAUD FAZIONot AvailableStart: 12-01-2024 End: 25-59-5451Fakbif flowsheetCorey Leslie DO Work Phone: [facility]OM[facility] BCP OBStart: 12-01-2024 End: 54-21-2343Lmbkgj flowsheetCorey Leslie DO Work Phone: [facility] BCP OBStart: 11-12-2024 End: 85-84-9554Rkbryj outpatient visit 15 minutesAmy Christina WILDER Work Phone: [facility]OM[facility] BCP OBComment on above:Third trimester ; 29 weeks gestation of ; Anemia during in third trimester; Excessive growth affecting management of in third trimester, single or unspecified fetusStart: 11-12-2024 End: 43-69-5890nohddetkwtNBQ Frida AvailableStart: 11-12-2024 End: 94-87-9496Hrjvjg flowsheetQuynh WILDER Work Phone: [facility] BCP OBStart: 11-12-2024 End: 15-01-3154Gnhkqg flowsheetQuynh WILDER Work Phone: [facility] BCP OBStart: 11-12-2024 End: 62-65-0800Hiauulrbi Result EncounterAmy Christina WILDER Work Phone: NOMS External Department UnsolicitedStart: 11-11-2024 End: 26-35-6611Qulcynvnr Result EncounterCorey Leslie DO Work Phone: NOMS External Department UnsolicitedStart: 11-11-2024 End: 78-39-3954Pzymqebso Result EncounterCorey Leslie DO Work Phone: noms External Department UnsolicitedStart: 10-15-2024 End: 57-89-0346Phcbsi outpatient visit 15 minutesQuynh WILDER Work Phone: noms BCP OBComment on above:Second trimester ; 25 weeks gestation of ; Diabetes mellitus screeningStart: 10-15-2024 End: 36-72-7048xzlyppomsiLFV RAMEYNot AvailableStart: 10-15-2024 End: 84-04-3507Oobtsl flowsheetQuynh WILDER Work Phone: NOGH BCP OBStart: 10-15-2024 End: 50-49-5750Wwfghb flowsPeña WILDER Work Phone: noms BCP OBStart: 10-15-2024 End: 71-44-6828Hniojcukh Result EncounterQuynh WILDER Work Phone: noms External Department UnsolicitedStart: 09-05-2024 End: 64-75-1178Pxurlvybg Result EncounterCorey Leslie DO Work Phone: noms External Department UnsolicitedStart: 09-05-2024 End: 97-13-4550Jionzaqor Result EncounterCorey Leslie DO Work Phone: noms External Department UnsolicitedStart: 08-18-2024 End: 82-08-1102Ahxnfjqjq Result EncounterCorey Leslie DO Work Phone: noms External Department UnsolicitedStart: 08-18-2024 End: 71-49-6331Azeewfgek Result EncounterCorey Leslie DO Work Phone: noms External Department UnsolicitedStart: 08-13-2024 End: 93-56-9233Dejtvh outpatient visit 15 minutesJamila Velez MD Work Phone: noms FNR FMComment on above:Acute non-recurrent maxillary sinusitis (Primary Dx)Start: 08-13-2024 End: 71-21-1893Knrbzj flowsCayden Velez MD Work Phone: NOM[facility] FNR FMStart: 08-13-2024 End: 76-57-4347Fnmjcc flowsCayden Velez MD Work Phone: [facility]OM[facility] FNR FMStart: 08-12-2024 End: 50-52-7617Swlmnhiwv encounterJamila Velez MD Work Phone: [facility] FNR FMStart: 07-21-2024 End: 48-35-0320Uovsgk flowsheetCorey Leslie DO Work Phone: NOMS BCP OBStart: 07-21-2024 End: 26-25-8351Sthpzb flowsheetCorey Leslie DO Work Phone: [facility] BCP OBStart: 07-21-2024 End: 98-19-2460Sycghl outpatient visit 15 minutesCorey Leslie DO Work Phone: NOMS BCP OBComment on above:Second trimester ; Encounter for anatomic survey; Need for maternal serum alpha-protein (MSAFP) screeningStart: 06-19-2024 End: 66-39-3396Izsgkyaah Result EncounterGeneric External Data ProviderNOMS External Department UnsolicitedStart: 06-19-2024 End: 14-47-3919Ltauxnlyr Result EncounterGeneric External Data ProviderNOMS External Department UnsolicitedStart: 04-09-2024 End: 19-63-3079Fujtbrjiv Result EncounterGeneric External Data ProviderNOMS External Department UnsolicitedStart: 04-09-2024 End: 70-37-9414Ajbhmgpgw Result EncounterGeneric External Data ProviderNOMS External Department UnsolicitedStart: 04-16-2023 End: 48-41-7218uytbbwntriZX NONE LISTED REQUESTFacility:V5Mpvjy: 04-16-2023 End: 39-48-3013gyixmcrnqzJM NONE LISTED REQUESTFacility:H8Sofxm: 04-13-2023 End: 35-23-4690qpmgyfuwxqKF KALPANA TAPIA .Facility:E0Mqipb: 04-06-2023 End: 24-67-7031blljhmwtegFT CLYDE NELSON .Facility:I5Oedit: 19-35-5298szvrvtjjma DR NONE LISTED REQUESTFacility:H6Mkwfi: 56-54-4774bgzlrmocufBM NONE LISTED REQUESTFacility:G5Zpjrs: 10-13-2022 End: 94-78-9068dlswldpgniMT AMNA Ames WESTFacility:Z7Lynxq: 10-09-2022 End: 71-27-9665pcmjtrifjfQA DOCTOR MISCFacility:N1Hklin: 09-14-2022 End: 96-23-8606zozhgvcubiWF MECHE MARKER .Facility:B6Qhdyx: 07-07-2022 End: 65-49-3721xjzprqmdpqSZ DOCTOR MISCFacility:M9Rlzox: 07-04-2022 End: 86-95-9414ugepprpsnmCY DOCTOR MISCFacility:X8Khvpt: 07-04-2022 End: 89-07-3745cmxwqcnketHN DOCTOR MISCFacility:W5Qmvek: 06-16-2021 End: 24-81-6694clovpcusaoFTCFQ MICHELLE SMITHMercy Delray HospitalStart: 06-16-2021 End: 10-24-0037Jinicqirug hospital visit by Bo Obrien APRN - ALEC Work Phone: mthz Labor and DeliveryStart: 05-25-2021 End: 74-61-5023vbzfleidwvQNPDTMNW E POOLMercy Delray HospitalStart: 05-24-2021 End: 03-13-2148Typiboozqp hospital visit by Dwight Gonzalez CNM Work Phone: mthz Labor and DeliveryStart: 05-18-2021 End: 43-98-9638ckyenknqymTLHVI MICHELLE SMITHMercy Delray HospitalStart: 05-18-2021 End: 32-94-5204Emqexkapwv hospital visit by Bo Obrien APRN - ALEC Work Phone: mthz Labor and DeliveryStart: 04-14-2021 End: 92-23-6296Jkinsioqt department patient visitJUSTIN [facility] HospitalStart: 04-14-2021 End: 27-20-8244Bhekzxbsb department patient visitJushahnaz Lopez DO Work Phone: [facility] EDComment on above:Nausea and vomiting during (Primary Dx)Start: 03-23-2021 End: 07-91-4091Nqzroheib department patient visitSYED A ANTONSt. John Of God Hospitalarmando [facility] Hospitaltart: 03-23-2021 End: 53-33-4919Jimlvbdvq department patient visitSyed A Anton CHENEY Work Phone: [facility] EDComment on above:Leg swelling (Primary Dx)Start: 03-10-2021 End: 21-15-6245Yjkyxmnjr department patient visitNANETTE Simpson [facility] Hospitaltart: 02-28-2021 End: 94-18-5276Kskrcwtjm department patient visitMECHE BLOODSalem City Hospitaltart: 02-28-2021 End: 73-94-0414Trurvfjar department patient visitMeche Blood Work Phone: [facility] EDComment on above:Abdominal pain, unspecified abdominal location (Primary Dx); Urinary tract infection without hematuria, site unspecified; Intrauterine Procedures DateProcedureProcedure DetailPerforming ClinicianStart: 73-76-1175AYD HEMOGLOBIN G1JPyfvc Leslie DO Work Phone: Start: 34-65-3103Otekm test visual color cmprsn methsCorey Leslie DO Work Phone: Start: 86-99-2367IFV CBC WITH AUTO DIFFCorey Leslie DO Work Phone: Start: 16-57-8474NBT CBC WITH AUTO DIFFCorey Leslie DO Work Phone: Start: 15-09-1725Aajbq dip stick/tablet rgnt non-auto w/o micrscpAmy Christina WILDER Work Phone: Start: 80-83-7805Ivhag dip stick/tablet rgnt non-auto w/o micrscpAmy Christina WILDER Work Phone: start: 72-27-4324Idrmu dip stick/tablet rgnt non-auto w/o micrscpCorey Leslie DO Work Phone: Start: 89-45-3840NWS MISCELLANEOUS TESTCorey Leslie DO Work Phone: Start: 87-32-8472GMRB LIVER PANELCorey Leslie DO Work Phone: Start: 51-63-5519DOL CBC WITH AUTO DIFFCorey Leslie DO Work Phone: Start: 90-99-7921Mshca dip stick/tablet rgnt non-auto w/o micrscpCorey Leslie DO Work Phone: Start: 75-81-7849OPQ FERRITINAmy Christina WILDER Work Phone: Start: 96-03-7038EZL CBC WITH AUTO DIFFCorey Leslie DO Work Phone: Start: 04-51-9529BKH CBC WITH AUTO DIFFAmy Christina PA Work Phone: Start: 96-05-3722Cwopi dip stick/tablet rgnt non-auto w/o micrscpAmy Christina WILDER Work Phone: Start: 67-41-2796OX OB ANATOMYCorey Leslie DO Work Phone: Start: 64-53-0044UL OB CERVICAL LENGTHCorey Leslie DO Work Phone: Start: 88-77-8670DDDSQF COVID-19/Roya Velez MD Work Phone: Start: 41-10-3594ZRZ, SERUM, OPEN SPINA BIFIDACorey Leslie DO Work Phone: Start: 75-89-9089Xvyno dip stick/tablet rgnt non-auto w/o micrscpCorey Leslie DO Work Phone: Start: 09-51-3381ID OB TRANSVAGINALGeneric External Data ProviderStart: 65-39-1419OD PELVIS TRANSVAGINALGeneric External Data ProviderStart: 60-25-5930Cgqfolzxddf observation [Identifier] in Cervix by Cyto stainCorey Leslie DO Work Phone: Start: 37-73-6165Opvacokflg microscopic onlySusan Patt Micah INVESTMENT REPRESENTATIVE - CNM Work Phone: Start: 86-84-4454Mtkgn dip stick/tablet rgnt auto w/o microscopySusan Patt Micah INVESTMENT REPRESENTATIVE - CNM Work Phone: Start: 72-16-8390Aghak of lipaseJustin Andes DO Work Phone: Start: 84-55-5600TWDDO METABOLIC PANEL W/ REFLEX TO MG FOR LOW KJustin Andes DO Work Phone: Start: 21-95-1487Prynumq function panelJustin Andes DO Work Phone: Start: 90-11-4126Gjmeyklshe microscopic onlyJustin Andes DO Work Phone: Start: 36-18-4878Loemz dip stick/tablet rgnt auto w/o microscopyJustin Andes DO Work Phone: Start: 43-57-4668Uxpyma dgradj products d-dimer quantitativeSyed Wood Núñez MD Work Phone: Start: 03-01-2021. TRACHOMATIS, EXTERNAL RESULT Historical Provider MDStart: 03-01-2021N. GONORRHOEAE, EXTERNAL RESULTHistorical Provider MDStart: 13-31-3796Hka-scan artl cosmo abdl/pel/scrot&/rpr orgn lmt [facility] Phone: start: 38-39-4064Vx uterus 14 wk transabdl 11/26 gestatMeche Blood Work Phone: start: 09-92-2639Myrovbtzbh microscopic onlyM[facility]he [facility] Work Phone: start: 09-86-7795Uvmdw dip stick/tablet rgnt auto w/o microscopyMeche [facility] Work Phone: start: 37-93-7010DCY, EXTERNAL RESULTHistorical Provider MDStart: 84-43-5984KUSPQYICZ B, EXTERNAL RESULTHistorical Provider Start: 27-31-4610HXPVIUGDM C ANTIBODY, EXTERNAL RESULTHistorical Provider Start: 13-35-1329NVX, EXTERNAL RESULTHistorical Provider MDStart: 70-91-8954DY FACTOR, EXTERNAL RESULTHistorical Provider MDStart: 95-75-8769VKG, EXTERNAL RESULTHistorical Provider MDStart: 20-16-6991GMOQPIL TITER, EXTERNAL RESULT Historical Provider Plan of Treatment DateCare ActivityDetailAuthorStart: 10-41-5183Guquzsoet for malignant neoplasm of cervixNOOK HealthcareStart: 10-27-2025 End: 23-55-3112Cirsdwm encounter eauyvhzfd56/02/2025 1:40 PM EST Procedure Visit [facility] MARIANO [address] [place] [phone] Clyde Nelson DO [address] [place] [address] NOMRadha HUDSONNStart: 09-23-2025 End: 10-42-1015Wstmmzefvbtb / ancillary services jkzcfxmwza61/29/2025 2:30 PM EDT Ancillary Procedure NOMRad[facility]IAN[facility] [address] [facility] [place] [address] [facility] CenterHarris OBGYNStart: 09-22-2025 End: 74-71-5568XMVBZHKI Lab Routine Missed menses PCOS (polycystic ovarian syndrome) Expected: 09/22/2025 (Approximate), Expires: 09/22/2026[facility] Comment on above:Expected: 09/22/2025 (Approximate), Expires: 09/22/2026Start: 09-22-2025 End: 77-01-2562GU PelvisUS Pelvis w/ TV Imaging Routine Missed menses PCOS (polycystic ovarian syndrome) Expected: 09/22/2025, Expires: 09/22/2026NOOK HealthcareComment on above:Expected: 09/22/2025, Expires: 09/22/2026Start: 23-66-2896FMFUV-19 Vaccine ( season)COVID-19 Vaccine ( season)NOMS HealthcareStart: 60-32-7082Oykaegpws vaccinationNOOK Healthcare Start: 06-22-2025 End: 23-95-9895Cksikgy encounter tsljtsete08/28/2025 1:40 PM EDT Office Visit [facility] OB [address] [place] [phone] Clyde Nelson, DO [address], [place] [id number] NOMS BCP OBStart: 00-51-5070Pxdqntmyh vaccination Influenza Vaccine (#1)NOMS HealthcareComment on above:Postponed from 07/27/2024 (Supply/Drug Shortage)Start: 03-12-2025 End: 40-95-1536CZQ W Auto Differential panel - BloodCBC auto differential Lab Routine Iron deficiency anemia due to chronic blood loss Expected: 03/12/2025 (Approximate), Expires: 03/12/2026[facility] Work Phone: Comment on above:Expected: 03/12/2025 (Approximate), Expires: 03/12/2026Start: 02-16-2025 End: 39-74-3499qziwxpprgh88/24/2025 1:50 PM EDT Visit [facility] OB [address] [place] [phone] Clyde Nelson, DO [address], [place] [id number] NOMS BCP OBStart: 01-15-2025 End: 24-43-1178Rkpklco encounter pnzolamkb51/20/2025 11:30 AM EST Routine [facility] OB [address] [place] [address] Clyde Nelson, DO [address] [facility] [address] [place], [place] [id number] NOMS BCP OBStart: 01-06-2025 End: 66-40-6850Cxhzjvihkkjy / ancillary services ozjxvcsjdy58/11/2025 11:00 AM EST Ancillary Procedure [facility] OB [address] [facility] [place], [place] [phone] NOMS BCP OBStart: 01-05-2025 End: 58-37-0865RC for pregnancyUS OB AMNIOTIC FLUID VOLUME Imaging Routine Antepartum premature rupture of membrane Expected: 01/05/2025 (Approximate), Expires: 01/05/2026[facility] Work Phone: comment on above:Expected: 01/05/2025 (Approximate), Expires: 01/05/2026Start: 12-31-2024 End: 06-92-4089Smklalg encounter akcjxjaxc79/05/2025 2:50 PM EST Routine [facility] OB [address] [facility] [place] [phone] Quynh Vasquez, MEÑO [address] [facility] [address] [place], [place] [id number] NOMS BCP OBStart: 12-24-2024 End: 15-10-8644Sssvubk encounter sjokttkou95/29/2025 3:10 PM EST Routine [facility] OB [address] [place] [address] [place] [phone] Cldye Nelson, DO [address] [facility] [place] [address] NOMS BCP OBStart: 12-24-2024 End: 26-74-2681LKFVBRI, GROUP B STREP WITH SUSCEPTIBLITYCULTURE, GROUP B STREP WITH SUSCEPTIBLITY Lab Routine Third trimester Expected: 12/24/2024, Expires: 12/24/2025NOOK HealthcareComment on above:Expected: 12/24/2024, Expires: 12/24/2025Start: 12-18-2024 End: 67-12-7562Qpza acids, totalBile acids, total Lab Routine Pruritus Expected: 12/18/2024 (Approximate), Expires: 12/18/2025NOMS HealthcareComment on above: Expected: 12/18/2024 (Approximate), Expires: 12/18/2025Start: 12-18-2024 End: 10-71-8462Naoazze function 2000 panel - Serum or PlasmaHepatic function panel Lab Routine Pruritus Expected: 12/18/2024 (Approximate), Expires: 12/18/2025[facility] Work Phone: comment on above:Expected: 12/18/2024 (Approximate), Expires: 12/18/2025Start: 12-18-2024 End: 14-28-9075Rslgkrf encounter myxrydgxd56/23/2025 11:00 AM EST Routine [facility] OB [address] [facility] [place] [phone] Quynh Vasquez PA [address] [facility] [place] [address] NOMS BCP OBStart: 12-01-2024 End: 07-94-2754Ztmsfeu encounter procedureNOMS BCP OBComment on above:Arrived Start: 12-01-2024 End: 09-08-3552Uqzrnnwyiofv / ancillary services vdkedgniit86/06/2025 3:00 PM EST Ancillary Procedure [facility] OB [address] [facility] [place] [phone] NOMS BCP OBStart: 11-12-2024 End: 56-72-6347Ufxmhwt encounter procedureNOMS BCP OBComment on above:Arrived Start: 11-12-2024 End: 88-43-3761Dfvnqayzhsw [Mass/volume] in Serum or PlasmaTransferrin Lab Routine Anemia during in third trimester Expected: 11/12/2024 (Approximate), Expires: 11/12/2025NOMS HealthcareComment on above:Expected: 11/12/2024 (Approximate), Expires: 11/12/2025Start: 11-12-2024 End: 27-23-0290PO for pregnancyUS OB SCAN FOR GROWTH Imaging Routine Excessive growth affecting management of in third trimester, single or unspecified fetus Expected: 11/12/2024 (Approximate), Expires: 2024NOOK HealthcareComment on above:Expected: 11/12/2024 (Approximate), Expires: 11/12/2025Start: 11-05-2024 End: 64-39-1227Hlfympb encounter poejcpmxi59/11/2024 2:30 PM EST Routine [facility] OB [address] [facility] [place] [phone] Clyde Nelson DO [address] [facility] [address] [place], [facility]11 NOMS BCP OBStart: 10-15-2024 End: 71-65-2401Juibdbp encounter seyzdzhyl85/20/2024 2:30 PM EST Routine [facility] OB [address] [facility] [place] [phone] Quynh Vasquez PA [address] [facility] [address] [place], [facility]11 [facility] OBComment on above: ArrivedStart: 10-15-2024 End: 15-96-9955MDO panel - Blood by Automated countCBC Lab Routine Diabetes mellitus screening Expected: 10/15/2024 (Approximate), Expires: 10/15/2025[facility] Healthcare Work Phone: comment on above:Expected: 10/15/2024 (Approximate), Expires: 10/15/2025Start: 10-15-2024 End: 32-54-5104Ilwzaucmwtc of glucose 1 hour after glucose challenge for glucose tolerance testGlucose tolerance, 1 hour Lab Routine Diabetes mellitus screening Expected: 10/15/2024 (Approximate), Expires: 10/15/2025[facility] HealthcareComment on above:Expected: 10/15/2024 (Approximate), Expires: 10/15/2025Start: 09-04-2024 End: 57-91-3543Oduwtzhgxlsw / ancillary services cahieadjww23/10/2024 11:00 AM EDT Ancillary Procedure [facility] [address] [place] [phone] [facility] OBStart: 18-29-0574Fzwodhruf vaccinationInfluenza Vaccine (#1)[facility] HealthcareStart: 07-21-2024 End: 21-81-2640Fqkof fetoprotein, maternalAlpha fetoprotein, maternal Lab Routine Need for maternal serum alpha-protein (MSAFP) screening Expected: 07/21/2024 (Approximate), Expires: 08/21/2024[facility] Healthcare Work Phone: comment on above:Expected: 07/21/2024 (Approximate), Expires: 08/21/2024Start: 07-21-2024 End: 40-87-4115GR for pregnancyUS OB ANATOMY SINGLE W US OB CERVICAL LENGTH Imaging Routine Encounter for anatomic survey Expected: 07/21/2024 (Approximate), Expires: 07/21/2025NOOK HealthcareComment on above:Expected: 07/21/2024 (Approximate), Expires: 07/21/2025Start: 23-19-6414Nwrzsbgnn for malignant neoplasm of cervixHPV/CotestNOMS HealthcareStart: 05-16-2023 DTaP/Tdap/Td vaccine (2 - Td or Tdap)DTaP/Tdap/Td vaccine (2 - Td or Tdap)[facility] Phone: start: 79-27-9424NQiI/Tdap/Td vaccine (2 - Td) DTaP/Tdap/Td vaccine (2 - Td)[facility] Phone: start: 29-65-4400WUvH/Tdap/Td Vaccines (3 - Td or Tdap)DTaP/Tdap/Td Vaccines (3 - Td or Tdap)[facility] HealthcareStart: 07-27-2021 Influenza vaccinationMer[facility] Health [facility] Hospital [employer] Work Phone: start: 03-23-2021 End: 19-86-5705KB DUP LOWER EXTREMITY VENOUS BILATERALVL DUP LOWER EXTREMITY VENOUS BILATERAL Imaging Routine Leg swelling Expected: 03/23/2021, Expires: 03/23/2022[facility] Phone: comment on above:Expected: 03/23/2021, Expires: 03/23/2022tart: 30-15-1746PMN Vaccines (1 - 3-dose SCDM series)HPV Vaccines (1 - 3-dose SCDM series)NOM HealthcareStart: 49-49-5533Icurjnnep for malignant neoplasm of cervixCervical cancer screenSt. [facility] Of [facility] HospitalWithin3 Phone: start: 39-48-8831Ihtuzzcfr B Vaccines (1 of 3 - 19+ 3- dose series)Hepatitis B Vaccines (1 of 3 - 19+ 3-dose series)[facility] Healthcare Start: 42-34-3234Glswpxi of varicella vaccinationVaricella Vaccines (1 of 2 - 13+ 2-dose series)NOM HealthcareStart: 99-78-7308NNG Vaccines (1 of 1 - Standard series)MMR Vaccines (1 of 1 - Standard series)NOM HealthcareStart: 18-71-7356KTEGN-19 Vaccine (1)COVID-19 Vaccine (1)[employer] Phone: start: 28-12-8737YWH screeningHIV screenSt. [facility] Of God [facility]Within3 Phone: start: 25-92-7058WNFKH-19 Vaccine (1)COVID-19 Vaccine (1)[employer] Phone: start: 43-38-5089Caxjfwpck vaccine (1 of 2 - 2-dose childhood series)Varicella vaccine (1 of 2 - 2-dose childhood series)[employer] Phone: start: 58-11-3148Ifsnyrnep C screeningHepatitis C screenSt. John Of [facility] HospitalWithin3 Phone: End: 68-47-0714Gxttrxwj identified in Urine by CultureUrine culture Microbiology Routine One Time for 1 Occurrences starting 05/18/2021 until 05/18/2021[facility] Phone: comment on above:One Time for 1 Occurrences starting 05/18/2021 until 05/18/2021 End: 97-33-8891KKV Auto DifferentialCBC Auto Differential Lab STAT One Time for 1 Occurrences starting 02/28/2021 until 02/28/2021[facility] [employer] Work Phone: comfejs on above:One Time for 1 Occurrences starting 02/28/2021 until 02/28/2021BC W Auto Differential panel - BloodCBC and differential Lab Routine Missed menses PCOS (polycystic ovarian syndrome) Ordered: 09/22/2025[facility] HealthcareComment on above:Ordered: 09/22/2025HLAMYDIA TRACHOMATIS (GENITO/STI)CHLAMYDIA TRACHOMATIS (GENITO/STI) Lab Routine STD exposure Ordered: 12/24/2024[facility] HealthcareComment on above:Ordered: 12/24/2024 End: 75-91-3463Fcvsfibxtzeit Metabolic Panel w/ Reflex to MGComprehensive Metabolic Panel w/ Reflex to MG Lab STAT One Time for 1 Occurrences starting 02/28/2021 until 02/28/2021[facility] [employer] Work Phone: comment on above:One Time for 1 Occurrences starting 02/28/2021 until 02/28/2021 End: 19-33-2037Zfzxlkr, UrineCulture, Urine Microbiology Routine One Time for 1 Occurrences starting 02/28/2021 until 02/28/2021[facility] [employer] Phone: comdvnz on above:One Time for 1 Occurrences starting 02/28/2021 until 02/28/20211997FAZK-fxbltvhWGFO-gdgyzwy Lab Routine Missed menses PCOS (polycystic ovarian syndrome) Ordered: 09/22/2025[facility] HealthcareComment on above:Ordered: 09/22/2025EstradiolEstradiol Lab Routine Missed menses Ordered: 09/22/2025[facility] HealthcareComment on above:Ordered: 09/22/2025Ferritin [Mass/volume] in Serum or PlasmaFerritin Lab Routine Anemia during in third trimester Ordered: 11/12/2024[facility] Healthcare Work Phone: comment on above:Ordered: 11/12/2024Follicle stimulating hormoneFollicle stimulating hormone Lab Routine Missed menses PCOS (polycystic ovarian syndrome) Ordered: 09/22/2025[facility] HealthcareComment on above:Ordered: 09/22/2025hCG, quantitative, pregnancyhCG, quantitative, Lab Routine Missed menses PCOS (polycystic ovarian syndrome) Ordered: 09/22/2025[facility] Healthcare Work Phone: comment on above:Ordered: 09/22/2025Hemoglobin A1c/Hemoglobin.total in BloodHemoglobin A1c Lab Routine Missed menses Ordered: 09/22/2025[facility] HealthcareComment on above:Ordered: 09/22/2025Luteinizing hormone Luteinizing hormone Lab Routine Missed menses PCOS (polycystic ovarian syndrome) Ordered: 09/22/2025[facility] HealthcareComment on above:Ordered: 09/22/2025Neisseria gonorrhoeae DNA [Presence] in Unspecified specimen by ARI with probe detection Neisseria gonorrhea DNA probe, direct Lab Routine STD exposure Ordered: 12/24/2024[facility] HealthcareComment on above:Ordered: 12/24/2024Nonrebreather mask oxygenMercy Health Anderson Hospital [employer] Work Phone: comment on above:As directed - RT (PRN) until discontinued starting 05/18/2021 directed - RT (PRN) until discontinued starting 05/24/2021 directed - RT (PRN) until discontinued starting 06/16/2021 ProgesteroneProgesterone Lab Routine Missed menses Ordered: 09/22/2025[facility] HealthcareComment on above:Ordered: 09/22/2025ProlactinProlactin Lab Routine Missed menses Ordered: 09/22/2025[facility] HealthcareComment on above:Ordered: 09/22/2025SURESWAB(R) ADVANCED VAGINITIS PLUS, TMASURESWAB(R) ADVANCED VAGINITIS PLUS, TMA Pathology and Cytology Routine STD exposure Ordered: 12/24/2024[facility] [employer] Work Phone: comngvr on above:Ordered: 12/24/2024 End: 90-06-6745QOYUUI Point of Care Testing Routine One Time for 1 Occurrences starting 05/18/2021 until 05/18/2021[facility] [employer] Work Phone: comment on above:One Time for 1 Occurrences starting 05/18/2021 until 05/18/2021 End: 74-35-3751OXHJUR Point of Care Testing Routine One Time for 1 Occurrences starting 05/24/2021 until 05/24/2021[facility] Phone: comlxgv on above:One Time for 1 Occurrences starting 05/24/2021 until 05/24/2021 End: 85-67-7012MONDBU Point of Care Testing Routine One Time for 1 Occurrences starting 06/16/2021 until 06/16/2021[facility]anc[facility] Limited Work Phone: comldgz on above:One Time for 1 Occurrences starting 06/16/2021 until 06/16/2021Thyrotropin [Units/volume] in Serum or PlasmaTSH Lab Routine Missed menses PCOS (polycystic ovarian syndrome) Ordered: 09/22/2025[facility] HealthcareComment on above:Ordered: 09/22/2025Thyroxine (T4) free [Mass/volume] in Serum or PlasmaT4, free Lab Routine Missed menses PCOS (polycystic ovarian syndrome) Ordered: 09/22/2025[facility] HealthcareComment on above:Ordered: 09/22/2025 Immunizations Immunization DateImmunizationNotesCare KtlhmkpzYjsnirfu72-02-5294atofchxqyp, tetanus toxoids and pertussis vaccineCorey Leslie DO Work Phone: [facility] HospitalLslbnefxxz79-60-9568cdthyli toxoid, reduced diphtheria toxoid, and acellular pertussis vaccine, adsorbedCorey Leslie DO Work Phone: [facility] HospitalYfnfirnndy02-89-5888fklwhrtoq virus vaccine, live, attenuated, for intranasal useCorey Leslie DO Work Phone: [facility] HospitalQggwskyhqw40-88-0021nhhgmzjoy virus vaccine, unspecified formulationCorey Leslie DO Work Phone: [facility] Payers DatePayer CategoryPayerPolicy ID2021[place]icaid[place] [id number] 2021-Present [address] [place] [id number] 2021Medicaid (Managed Care)[place] [employer] [id number] 2.0.1.412698.3.57[id number] 2.0.1.704702.3.57[id number] 2.0.1.111535.3.579.2.[id number] 2.840.1.823521.3.579.2.35[id number] 2.0.1.730557.3.579.2.12222-37-6607Gepstdt70497030 2.16840.1.183445.3.579.2.90412-32-5043Kgzjhjq67993083 2.160.1.031383.3.579.2.69218-60-9746Hehwfob2182030 2.16840.1.384520.3.579.2.09853-41-9451Mbnwjxb1602797 2.840.1.615147.3.579.2.04385-58-7895Rdjqmpz7315656 2.16.840.1.519319.3.579.2.09610-85-4791Agwqjhv1043864 2.16.840.1.587481.3.579.2.52187-18-8861Pfaphel3716043 2.16.840.1.381969.3.579.2.88728-10-5226Wbfkqns7385223 2.16840.1.170421.3.579.2.43853-20-2169Gcmhfxw2035516 2.16840.1.322422.3.579.2.48222-62-6658Iwnyqsu7866799 2.16840.1.423496.3.579.2.20688-35-4685Hyyedjw1527910 2.16840.1.549263.3.579.2.61689-29-7664Gfwmvou2507592 2.840.1.311567.3.579.2.47187-20-9744Juukpbp0602578 2.16840.1.488351.3.579.2.68779-80-4892Kicogqy9960340 2.16840.1.016084.3.579.2.20087-08-4436Lzsudxg85019893 2.16840.1.782380.3.579.2.143974-55-0346Iynmwnx89206825 2.16840.1.681328.3.579.2.595282-42-8500Nhlnima8760115 2.16840.1.339690.3.579.2.287201-74-4415Vdyildp7570785 2.16840.1.680529.3.579.2.996775-36-7998Sounmhh5349820 2.16840.1.638905.3.579.2.185007-79-3861Tyimcng6362540 2.16.840.1.876312.3.579.2.880310-57-9251Hynjowu6902830 2.16.840.1.549614.3.579.2.286810-79-0871Qvkwgos4227247 2.16.840.1.286610.3.579.2.598707-46-0477Icesjno9271554 2.16.840.1.361350.3.579.2.251169-97-6120Fjuibqq0124616 2.16.840.1.979096.3.579.2.503046-39-2694Vwhyfig0824370 2.16.840.1.664037.3.579.2.363277-80-0748Jprwisq0742162 2.16.840.1.044482.3.579.2.233152-25-6022Mlmfvek7572414 2.16.840.1.829260.3.579.2.346623-02-7504Jdkiccw3658240 2.16.840.1.521141.3.579.2.334118-20-3129Qjvpxxm7359648 2.16.840.1.191138.3.579.2.521273-82-7924Zxqfgnr2868283 2.16.840.1.432103.3.579.2.176167-86-8003Xysq-pik41999385618-31-0089Pxibhfv [id number] 1.2.840.701276.1.13.239.2.7.3.791381.315 Social History DateTypeDetailFacilityStart: 02-28-2021 End: 05-92-8496Pvmiuvs smoking status NHISNever smokerNOOK HealthcareStart: 02-28-2021 End: 24-72-1780Ebncpmo use and exposureNever [facility] [employer] Work Phone: start: 93-00-2395Qct Assigned At BirthNot on fileMerApply Financials Limited Work Phone: exposure to SARS-CoV-2 (event)Not sureMercy [employer] Work Phone: start: 73-81-9156AadljcxaXcjcz Health Work Phone: start: 05-18-2021 End: 35-01-0472Krouxku intakeEx-drinker (finding)[employer] Work Phone: start: 03-20-2024 End: 03-31-3172Msqlqznpp beverage intakeLifetime non-drinker (finding)[facility] HealthcareStart: 05-07-2024 End: 42-18-8799Zadsqco of Social functionNOMS HealthcareStart: 05-07-2024 End: 92-10-2798Mbnsdf connection and isolation panelNOMS HealthcareDo you belong to any clubs or organizations such as druze groups, [employer]s, [employer] or athletic groups, or school groups?NoNOMS HealthcareAre you now , , , , never or living with a partner?Living with partner NOMS HealthcareHow often to you have a drink containing alcohol?NeverNOMS HealthcareStart: 96-12-6818Wka many standard drinks containing alcohol do you [...] money to buy more.Never trueNOMS Healthcare Start: 61-07-1337Epggvbx CommentCaffeine: noneNOMS Healthcare Goals DatePatient GoalDesired Activity/StatePersonal health goal Functional Status XehbAcbihojrdxQmuhnlCjhrsukb98-69-8494Wnfqqem Health Questionnaire 2 item (PHQ- 2) [Reported][facility] HospitalRkmlwelwar28-90-2013Mfpup score [AUDIT-C]0 05/07/2024 5:35 PM EDT Rohit NicholePemiscot Memorial Health SystemsGsorqcgcix74-23-5878Ywv often do you have a drink containing alcohol?Never 05/07/2024 5:35 PM EDT Angela NicholeProgress West HospitalOwzmitrdsl42-83-9649Hqbgxtxvgk statusPatient does not drink 05/07/2024 5:35 PM EDT Dayanara Gilmarrosa Patient does not drinkProgress West HospitalRtggbzfdwq81-67-9313Ylg often do you have 6 or more drinks on 1 occasion?Never 05/07/2024 5:35 PM EDT RochesterAngela [facility] Clinical Notes 03-23-2021 to 09-22-2025 Note Date & UthgWeyyVketmsnl52-73-1467 History of Present illness Narrative* Marixa Parra, HOUSE MOVER - 09/22/2025 2:50 PM EDT Reason for Appointment: Patient ID: Erika Grider is a 30 y.o. female who presents for missed cycles Patient presents today for Acute Visit. and Consult appointment. MEDICATIONS No current outpatient medications ALLERGIES Allergies Allergen Reactions Latex Hives, Swelling and Rash Red, swells PROBLEMS Active Ambulatory Problems Diagnosis Date Noted 29 weeks gestation of ([facility]) 05/08/2024 Abdominal trauma 05/08/2024 Anxiety about health 05/08/2024 Decreased movement affecting management of mother, antepartum ([facility]) 05/24/2021 Intermittent palpitations 05/08/2024 Missed period 05/08/2024 [...] Age of Onset Mental illness Mother Nanette Grider Migraines Mother Nanette Grider Other (headache) Mother Nanette Grider Breast cancer Mother Nanette Grider stage 2 Asthma Mother Nanette Grider Mental illness Father Migraines Sister Viji Packer [...] nursing note reviewed. Exam conducted with a cadmium plater present. Vitals: Estimated body mass index is [...] of: Clyde Nelson DO documented in this encounterProgress West HospitalTehhhbcmym92-14-8831 Telephone encounter Note* Telephone Encounter - Viola Britton - 03/12/2025 3:55 PM EDT Pt asking to have lab for iron drawn [place]. She believes her iron is low [facility] Svwuukixwe88-60-9941 Miscellaneous Notes* Telephone Encounter - Viola Britton - 03/12/2025 3:55 PM EDT Pt asking to have lab for iron drawn at [place]. She believes her iron is low documented in this encounterProgress West HospitalZpirzbpqww48-49-6276 History of Present illness Narrative* Richar Oneill LPN - 02/16/2025 1:50 PM EDT Reason for Appointment: Patient ID: Erika Grider is a 30 y.o. female who presents [...] Age of Onset Mental illness Mother Nanette Franklin Migraines Mother Nanette Grider Other (headache) Mother Nanette Franklin Breast cancer Mother Nanette Franklin stage 2 Asthma Mother Nanette Franklin Mental illness Father Migraines Sister Viji Arceoalvo Mental illness Sister Viji Arceoalvo Asthma Sister Alexaustina Packer Mental illness Brother Tong Packer Migraines [...] nursing note reviewed. Exam conducted with a cadmium plater present. Vitals: Estimated body mass index is [...] of: Clyde Nelson DO documented in this encounterProgress West [id number] History of Present illness Narrative* MEÑO Andrews - 02/03/2025 3:00 PM EDT Reason for Appointment: Patient ID: Erika Grider is a 30 y.o. female who presents [...] illness Mother Nanette Rangelraji Migraines Mother Nanette Rangelraji Other (headache) Mother Nanette Franklin Breast cancer Mother Nanette Franklin stage 2 Asthma Mother Nanette Franklin Mental illness Father Migraines Sister Viji Arceoalvo Mental illness Sister Viji Arceoalvo Asthma Sister Viji Castlevo Mental illness Brother [...] behalf of: MEÑO Andrews documented in this encounterProgress West [id number] History of Present illness Narrative* Jamila Velez MD - 01/24/2025 9:20 AM EST Images from the original note were not included. Erika Grider is a 30 y.o. female presents with chief complaint of Cough HPI: HPI Patient presents today with a cough, she states that has been going on now for 4-5 days. She statesher son was dx with croup. 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 documented in this encounterProgress West [id number] History of Present illness Narrative* Richar Kulkarnielissa, ISHMAEL - 01/12/2025 1:50 PM EST Reason for Appointment: Patient ID: Erika Grider is a 30 y.o. female who presents [...] illness Mother Nanette Sherraji Migraines Mother Nanette Sherraji Other (headache) Mother Nanette Franklin Breast cancer Mother Nanette Grider stage 2 Asthma Mother Nanette Franklin Mental illness Father Migraines Sister Alexyia Packer [...] nursing note reviewed. Exam conducted with a cadmium plater present. Vitals: Estimated body mass index is [...] of: Clyde Nelson DO documented in this encounterProgress West [id number] History of Present illness Narrative* MEÑO Andrews - 01/05/2025 1:30 PM EST Reason for Appointment: Patient ID: Erika Grider is a 30 y.o. female who presents [...] Age of Onset Mental illness Mother Nanette Grider Migraines Mother Nanette Rowecaleb Other (headache) Mother Nanette Grider Breast cancer Mother Nanette Rowecaleb stage 2 Asthma Mother Nanette Grider Mental illness Father Migraines Sister Alexaustina Packer Mental illness Sister Gilmaryia Packer Asthma Sister Alexyia Packer Mental illness [...] behalf of: MEÑO Andrews documented in this encounterProgress West HospitalMqulwiwfft74-12-7125 History of Present illness Narrative* MEÑO Andrews - 12/31/2024 2:50 PM EST Reason for Appointment: Patient ID: Erika Grider is a 29 y.o. female who presents [...] Age of Onset Mental illness Mother Nanette Grider Migraines Mother Nanette Grider Other (headache) Mother Nanette Grider Breast cancer Mother Nanette Grider stage 2 Asthma Mother Nanette Grider Mental illness Father Migraines Sister Rukhsanaa Packer [...] behalf of: MEÑO Andrews documented in this encounterProgress West [id number] History of Present illness Narrative* Marixa Parra LPN - 12/24/2024 3:10 PM EST Reason for Appointment: Patient ID: Erika Grider is a 29 y.o. female who presents [...] Age of Onset Mental illness Mother Nanette Grider Migraines Mother Nanette Grider Other (headache) Mother Nanette Grider Breast cancer Mother Nanette Grider stage 2 Asthma Mother Nanette Rowecaleb Mental illness Father Migraines Sister Viji Arceoalvo [...] nursing note reviewed. Exam conducted with a cadmium plater present. Vitals: Estimated body mass index is 33.33 kg/m as calculated from the following: Height as of 08/13/: 5' 1 . Weight as of this [...] of: Clyde Nelson DO documented in this encounterProgress West HospitalShwphhuioc88-13-0318 History of Present illness Narrative* MEÑO Andrews - 12/18/2024 11:00 AM EST Reason for Appointment: Patient ID: Erika Grider is a 29 y.o. female who presents [...] Age of Onset Mental illness Mother Nanette Grider Migraines Mother Nanette Grider Other (headache) Mother Nanette Grider Breast cancer Mother Nanette Rowecaleb stage 2 Asthma Mother Nanette Rowecaleb Mental [...] behalf of: MEÑO Andrews documented in this encounterProgress West HospitalPcvjtykhac81-60-3444 History of Present illness Narrative* Richar Oneill LPN - 12/01/2024 3:30 PM EST Reason for Appointment: Patient ID: Erika Grider is a 29 y.o. female who presents [...] Age of Onset Mental illness Mother Nanette Grider Migraines Mother Nanette Grider Other (headache) Mother Nanette Grider Breast cancer Mother Nanette Grider stage 2 Asthma Mother Nanette Grider Mental illness Father Migraines Sister Viji Packer [...] colace sent to pharmacy and nursing called [facility] Sched[facility] in regards to iron infusions. Patient to [facility] in 2 weeksfor routine OB appointment. Documented by Richar Oneill LPN on behalf of: Clyde Nelson DO documented in this encounterProgress West [id number] History of Present illness Narrative* MEÑO Andrews - 11/12/2024 2:40 PM EST Reason for Appointment: Patient ID: Erika Grider is a 29 y.o. female who presents [...] Age of Onset Mental illness Mother Nanette Grider Migraines Mother Nanette Grider Other (headache) Mother Nanette Grider Breast cancer Mother Nanette Grider stage 2 Asthma Mother Nanette Grider Mental illness Father Migraines Sister Alexyia Packer [...] behalf of: MEÑO Andrews documented in this encounterProgress West HospitalTgzsiwavmw82-90-5556 History of Present illness Narrative* MEÑO Andrews - 10/15/2024 2:30 PM EST Reason for Appointment: Patient ID: Erika Grider is a 29 y.o. female who presents [...] Age of Onset Mental illness Mother Nanette Grider Migraines Mother Nanette Grider Other (headache) Mother Nanette Grider Breast cancer Mother Nanette Grider stage 2 Asthma Mother Nanette Grider Mental illness Father Migraines Sister Alexyia Packer [...] behalf of: MEÑO Andrews documented in this encounterProgress West HospitalUrutapzopx63-73-6987 History of Present illness Narrative* Jamila Velez MD - 08/13/2024 3:40 PM EDT Erika Grider is a 29 y.o. female presents with [...] occurs weekly. This was discussed with her OB-[employer]CTOR [employer], who reassured her that it is a [...] than a split second. documented in this encounterProgress West HospitalDyxewtwpgl02-19-3173 Telephone encounter Note* Telephone Encounter - William [...] the 5 pm open.. pt lives in [place]. Unless you have a recommendation? [facility] [id number] Miscellaneous Notes* Telephone Encounter - William Nieto [...] the 5 pm open.. pt lives in [place]. Unless you have a recommendation? documented in this encounterProgress West HospitalYtynfizjxg65-40-1671 History of Present illness Narrative* Richar Oneill, HOUSE MOVER - 07/21/2024 1:20 PM EDT Reason for Appointment: Patient ID: Erika Grider is a 29 y.o. female who presents [...] Age of Onset Mental illness Mother Nanette Grider Migraines Mother Nanette Franklin Other (headache) Mother Nanette Franklin Breast cancer Mother Nanette Franklin stage 2 Asthma Mother Nanette Grider Mental illness Father Migraines Sister Alexyia Packer [...] or undercooked meat, and stay away from [facility]. Patient has been consulted [...] of: Clyde Nelson DO documented in this encounterProgress West HospitalMayxmhjjdq98-68-1657 History of Present illness Narrative* Allyson Joel [...] Joel RN - 06/16/2021 8:50 PM EDT [facility] notified via telephone requesting pt's blood type [...] is placed on monitor. documented in this encounterMoblico Phone: [phone] History of Present illness Narrative* Erinn Simms RN - 05/18/2021 10:06 AM EDT Obstetrical outpatient discharge instructions explained to pt, pt v.u. 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 documented in this encounterMoblico Phone: [phone] 750-631804-28-2021 Hospital Discharge instructions* Instructions* Lidia Núñez MD [...] or ANY other concerns. documented in this encounterMoblico Phone: evalfeohch note* Diagnosis Leg swelling- Primary Swelling of limb documented in this encounter [employer] Phone: evalmlufbg note* Diagnosis Nausea and vomiting during - Primary documented in this encounter [employer] Phone: evaluation note* Diagnosis Decreased movement affecting management of mother, antepartum documented in this encounter [employer] Phone: evaluation note* Diagnosis Second trimester state, incidental 25 weeks gestation of Diabetes mellitus screening Screening for diabetes mellitus documented [facility]* Diagnosis Second trimester state, incidental Encounter for anatomic survey Need for maternal serum alpha-protein (MSAFP) screening documented in this encounter [facility]* Diagnosis Third trimester state, incidental 29 weeks gestation of Anemia during in third trimester Excessive growth affecting management of in third trimester, single or unspecified fetus documented [facility]* Diagnosis Acute non-recurrent maxillary sinusitis- Primary [facility]* Diagnosis 32 weeks gestation of Third trimester state, incidental Constipation during in third trimester documented [facility]* Diagnosis Third trimester state, incidental 35 weeks gestation of Pruritus Unspecified pruritic disorder [facility]* Diagnosis Third trimester state, incidental 35 weeks gestation of STD exposure documented [facility]* Diagnosis Third trimester state, incidental 36 weeks gestation of documented in [facility]* Diagnosis Third trimester state, incidental 37 weeks gestation of Antepartum premature rupture of membrane [facility]* Diagnosis Postoperative follow-up Follow-up examination, following unspecified surgery documented [facility]* Diagnosis Acute bronchitis, unspecified organism- Primary documented in this encounter [facility]Evaluation note* Diagnosis Postoperative follow-up- Primary Follow-up examination, following unspecified surgery documented [facility]* Diagnosis 6 weeks follow-up documented [facility]* Diagnosis Iron deficiency anemia due to chronic blood loss- Primary Iron deficiency anemia secondary to blood loss (chronic) documented [facility]* Diagnosis Missed menses PCOS (polycystic ovarian syndrome) Polycystic ovaries documented in this encounter [facility]Hospital Discharge instructions* Attachments The following attachments cannot be sent through Care Everywhere. * : Hyperemesis Gravidarum (Rwandan) * Nausea and Vomiting (Rwandan) documented in [facility] encounterMer[facility] [employer] Work Phone: Hospital Discharge instructions* Instructions* Erinn Simms RN - 05/18/[address] Liss Tapia [facility] Dr. Alondra Obrien [facility] [address] [facility] [address] [facility] [id number] [place] [address] Alondra Carrillo CNM [address] [facility] [id number] [phone] Therese Villatoro, MSN, INVESTMENT REPRESENTATIVE, CNM [facility] [address] [facility] [address] [address] Reynoso [address] [facility] [id number] Richar Rob CNM [address] [place] [address] [place] [address] Gabbie Patrickr CNM [address] [place] [address] [place] [address] [phone] ACTIVITY LIMITATIONS: ( x )Up and about [...] OF EMERGENCY CONTACT LABOR AND DELIVERY . EVP [place] PRESCRIPTIONS AT [facility] TODAY AND TAKE PRESCRIBED. KEFLEX TO BE TAKEN AT 2:30PM FOR FIRST DOSE. documented in this [facility] [employer] Work Phone: Hospital Discharge instructions* Instructions* Fiona Gilliland, RN - 05/25/[address] Liss Tapia [facility] Dr. Alondra Obrien CN [address] [facility] [address] [facility] [address] Alondra Carrillo [facility] [address] [facility] [id number] [phone] Therese Villatoro, MSN, INVESTMENT REPRESENTATIVE, CNM [facility] [address] [facility] [address] [address] Reynoso [address] [facility] [id number] Richar Rob CNM [address] [place] [address] Gabbie Sandi CNM [address] [place] [address] [phone] ACTIVITY LIMITATIONS: ( x )Up and about [...] LABOR AND DELIVERY . documented in this [facility] Work Phone: Hospital Discharge instructions* Instructions* Allyson Joel RN - 06/17/[address] Liss Tapia [facility] Dr. Alondra Obrien CN [address] [facility] [address] [facility] [address] Alondra Carrillo [facility] [address] [facility] [address] [phone] ACTIVITY LIMITATIONS: ( x )Up and about [...] LABOR AND DELIVERY . documented in this encounterSt. [facility] Of [facility] HospitalWithin3 Phone: Discharge Instructions * Instructions* Meche Blood MD - 02/28/2021 Take Keflex as directed until complete. Make sure to stay well-hydrated. Follow- up with your OB. Seek medical attention immediately for any worsening pain or any other acute concerns. * Attachments The following attachments cannot be sent through Care Everywhere. * Abdominal Pain (Rwandan) * : PROM: General Info (Rwandan) * UTI (Urinary Tract Infection): Female (Rwandan) documented in this encounter Assessments Diagnosis Abdominal pain, unspecified abdominal location- Primary Urinary tract infection without hematuria, site unspecified Intrauterine Reason for Referral StatusReasonSpecialtyDiagnoses / ProceduresReferred By ContactReferred To ContactOpenRadiology Diagnoses Leg swelling Procedures VL DUP LOWER EXTREMITY VENOUS BILATERAL Lidia Núñez MD [address] [place] [address] Advance Directives No Advanced Directives Records FoundLatest Code Status on File Code StatusDate ActivatedDate InactivatedCommentsFull Code05/18/2021 6:36 AMCode StatusDate ActivatedDate InactivatedCommentsFull Code05/24/2021 11:37 PMFull Code 05/18/2021 6:36 AM05/18/2021 12:55 PMCode StatusDate ActivatedDate Inactivated CommentsFull Code06/16/2021 [...] a incision check. Pt had a c/s fuDemrkuVmqfvfsf4im Post PartumReasonCommentsmissed cycles Ordered Prescriptions (unrec ognized [...] * 0218 (New Bag - Provider: Lorena Vega, RN) * 0318 (Stopped - Provider: Mikaela Stern RN) famotidine (PEPCID) injection 20 mg (COMPLETED) 20 mg, Intravenous, ONCE, On Margarita 04/14/21 at 0200, For 1 dose, Administer over 2 minutes. * 0219 (Given - Provider: Lorena Vega, RN) promethazine (PHENERGAN) injection 12.5 mg (COMPLETED) [...] * 0837 (New Bag - Provider: Martha Tatum, CARLSO) * 0908 (Stopped - Provider: Erinn Simms, RN) ondansetron (ZOFRAN) injection 4 mg (COMPLETED) 4 mg, Intravenous, ONCE, On Sun05/18/21 at 0830, For 1 dose * 0835 (Given - Provider: Martha Tatum, CARLOS) Medication Order05/16/// lactated ringers infusion Intravenous, at 999 mL/hr, CONTINUOUS, Starting on Sun05/18/21 at 0830 * 0820 (New Bag - Provider: Martha Tatum, CARLOS) * 0950 (Stopped - Provider: Erinn Simms, CARLOS) INFORMATION SOURCE (unrecogn ized section and content) DATE CREATED AUTHOR 06/19/2021 [facility] DATE CREATED AUTHOR AUTHOR'S ORGANIZ ATION 05/07/2023 [facility] DATE CREATED AUTHOR AUTHOR'S ORGANIZ ATION 09/25/2025 [facility] EPIC Care Teams (unrecognized sec tion and content) Team MemberRelationshipSpecialtyStart DateEnd Date Jamila Velez MD [address] [place] [address] PCP - GeneralFamily Medicine04/03/23 Quynh Vasquez PA [address] [place] [address] [place] [address] PCP - [facility]02/25/24Te MemberRelationshipSpecialtyStart DateEnd Date Jamila Velez MD [address] [facility] [place] [address] PCP - [facility]04/03/23 Quynh Vaqsuez PA [address] [place] [address] [place] [address] PCP - [facility]02/25/24Te MemberRelationshipSpecialtyStart DateEnd Date Jamila Velez MD [address] [place] [facility] [address] PCP - [facility]04/03/23 Quynh Vasquez PA [address] [place] [address] [place] [address] PCP - [facility]02/25/24Te MemberRelationshipSpecialtyStart DateEnd Date Jamila Velez MD [address] [place] [facility] [address] PCP - [facility]04/03/23 Quynh Vasquez PA [address] [place] [address] [place] [address] PCP - [facility]02/25/24Te MemberRelationshipSpecialtyStart DateEnd Date Jamila Velez MD [address] [place] [facility] [place] [address] PCP - [facility]04/03/23 Quynh Vasquez, PA [address] [place] [address] [place] [address] [facility] - [facility]02/25/24Te MemberRelationshipSpecialtyStart DateEnd Date Jamila Velez MD [address] [facility] [place] [address] [facility] - [facility]04/03/23 Quynh Vasquez PA [address] [place] [address] [place] [address] [facility] - [facility]02/25/24Te MemberRelationshipSpecialtyStart DateEnd Date Jamila Velez MD [address] [place] [address] [facility] - [facility]04/03/23 Quynh Vasquez, PA [address] [place] [address] [place] [address] [facility] - [facility]02/25/24Te MemberRelationshipSpecialtyStart DateEnd Date Jamila Velez MD [address] [place] [address] [facility] - [facility]04/03/23 Quynh Vasquez PA [address] [place] [address] [place] [address] [facility]02/25/24Te MemberRelationshipSpecialtyStart DateEnd Date Jamila Velez MD [address] [place] [address] PCP - [facility]04/03/23 Quynh Vasquez PA [address] [place] [address] [place] [address] PCP - [facility]02/25/24Te MemberRelationshipSpecialtyStart DateEnd Date Jamila Velez MD [address] [facility] [place] [address] PCP - [facility]04/03/23 Quynh Vasquez PA [address] [place] [address] Dr [place], [place] [address] PCP - [facility]02/25/24Te MemberRelationshipSpecialtyStart DateEnd Date Jamila Velez MD [address] [facility] [place] [address] PCP - [facility]04/03/23 Quynh Vasquez PA [address] [place] [address] Dr [place], [place] [address] PCP - [facility]02/25/24Te MemberRelationshipSpecialtyStart DateEnd Jamila Eden MD [address] [place] [address] PCP - [facility]04/03/23 Quynh Vasquez PA [address] [place] [address] [place] [address] PCP - [facility]02/25/24Te MemberRelationshipSpecialtyStart DateEnd Date Jamila Velez MD [address] [facility] [place] [address] PCP - [facility]04/03/23 Quynh Vasquez PA [address] [place] [address] [place] [address] PCP - [facility]02/25/24Te MemberRelationshipSpecialtyStart DateEnd Date Jamila Velez MD [address] [place] [address] PCP - [facility]04/03/23 Quynh Vasquez PA [address] [place] [address] [place] [address] PCP - [facility]02/25/24Te MemberRelationshipSpecialtyStart DateEnd Date Jamila Velez MD [address] [facility] [place] [address] PCP - [facility]04/03/23 Quynh Vasquez PA [address] [place] [address] [place] [address] [facility] - [facility]02/25/24Te MemberRelationshipSpecialtyStart DateEnd Date Jamila Velez MD [address] [place] [address] PCP - [facility]04/03/23 Quynh Vasquez PA [address] [place] [address] [place] [address] PCP - [place] [address]Te MemberRelationshipSpecialtyStart DateEnd Date Jamila Velez MD [address] [place] [address] [facility]04/03/23 Quynh Vasquez PA [address] [place] [address] [place] [address] [facility]02/25/24Team MemberRelationshipSpecialtyStart DateEnd Date Jamila Velez MD [address] [facility] [place] [address] [facility]04/03/23 Quynh Vasquez PA [address] [facility] [place] [address] [facility]02/25/24 FOR RECORDS PERTAINING TO PATIENTS WHO ARE [...] BE BASED ON THE PRIMARY CLINICAL RECORDS. [facility] [employer] [facility]. provides no warranty or guarantee of the accuracy or completeness of information in this document.
--- OUTSIDE RECORDS SUMMARY | 2025-10-27 19:04 | XMS_ITS | Clinical Summary ---
Author Organization [facility] Address [address] [facility] [place] [address] Care Team Providers Care Dishwasher Busser Name Role Phone Unavailable Primary Care Provider Unavailabl e Source Comments The following information is NOT included in Care Everywhere downloads:Psychiatric notes, ECG results, Cardiac Rehab notes, Pulmonary Function notes, data from SmartForms (includes but not limited toPregnancy data,audiograms, eye exams, pre-surgical evaluation notes, well-child exam data).[facility] Social History Tobacco UseTypesPacks/DayYears UsedDateSmoking Tobacco: Never Assessed CommentsUnknownSex and Gender InformationValueDate RecordedSex Assigned at Not on fileLegal AqtCaolgv59/10/2023 11:47 AM ESTGender IdentityNot on file Sexual OrientationNot on file Plan of Treatment Health MaintenanceDue DateLast DoneCommentsHIV Test2009Hepatitis C Omaqjlnr61/09/2012Tdap Npucqrw1801/04/2012Hepatitis A (HAV) Vaccine (optional start 19+ years)2013Hepatitis B (HBV) Vaccine (1 of 3 - 19+ 3-dose series) 2013Tetanus (Td or Tdap) Ebcppxw6201/04/2013Pap Smear2015HPV Vaccine (optional start 27-45 years)1COVID-19 Vaccine ( - 2024-26 season) 2025Influenza Vaccine (#1)2025Shingles (RZV) Vaccine (1 of 2) 2044MammographyDiscontinuedPneumococcal Vaccine(s)Aged OutNo longer eligible based on patient's age to complete this topic Insurance on file * Guarantor: Alejandro Reid TypeRelation to PatientDate of BirthPhone Billing AddressPersonal/KufcrtXbzw[address] [facility] [place] [address]
--- OUTSIDE RECORDS SUMMARY | 2025-10-27 19:04 | XMS_ITS | Clinical Summary ---
Author Organization [facility] Healthcare Address [address] [place] [address] Care Team Providers Care Damper Worker Name Role Phone Jamila Velez MD Primary Care Provider [phone] Quynh Vasquez Unavailable Allergies Active AllergyReactionsCriticalityNoted DateCommentsLatexHives,Swelling,RashLow 06/24/2020 Red, swells Medications MedicationSigDispense QuantityRefillsLast FilledStart DateEnd DateStatus amoxicillin-clavulanate (Augmentin) 875-125 MG tablet Indications:Non-recurrent acute suppurative otitis media of both ears without spontaneous rupture of tympanic membranesTake 1 tablet (875 mg) by mouth in the morning and 1 tablet (875 mg) before bedtime. Do all this for 7 days. 14 tablet 5Active fluticasone (Flonase) 50 MCG/ACT nasal spray Indications:Viral upper respiratory tract infectionAdminister 2 sprays into each nostril Daily Shake gently. Before first use, prime pump. After use, clean tip and replace cap. 16 g ctive Active Problems ProblemNoted DateDiagnosed DatePostoperative follow-up weeks gestation of ([facility])05/08/2024bdominal hheieo1705/08/2024nxiety about isfmdo1605/08/2024Intermittent vgrdxialkmge00/13/2024Missed qxyeer4505/08/2024 Assessment & Plan (10/27/2025 8:11 AM EST): Orders: POCT , urine Slow transit fslbpkguveoi43/13/2024ecreased movement affecting management of mother, antepartum ([facility])05/24/2021 Encounters DateTypeDepartmentCare YkeiHdjnztptsjr24/02/2025 1:40 PM ESTProcedure Visit NOMRadha MARIANO [address] [place] [address] Clyde Nelson, DO Well woman exam with routine gynecological exam10/26/2025 4:00 PM ESTOffice Visit [facility] [address] [facility] [place] [address] Melvi Nielson, ANOOP Non-recurrent acute suppurative otitis media of both ears without spontaneous rupture of tympanic membranes (Primary Dx); Missed period; Nasal congestion; Sore throat; Viral upper respiratory tract eutgmvyuk53/01/2025amboo flowsheet [facility] [address] [place] [place] [address] Melvi Nielson, ANOOP 10/26/20256280Qexmtm74/04/2025bstract NOMRadha [facility] [address] [place] [address] Clyde Nelson, DO 09/29/2025Telephone [facility] [address] [place] [address] Clyde Nelson, DO 09/24/2025Telephone [facility] [address] [place] [address] Vivian Murphy MA 09/23/2025 2:30 PM EDTAncillary Procedure [facility] [address] [place] [address] Missed menses; PCOS (polycystic ovarian syndrome)09/22/2025 2:50 PM EDTOffice Visit [facility] [address] [place] [address] Clyde Nelson, DO Missed menses; PCOS (polycystic ovarian syndrome)5Clinisync Result Encounter NOMS External Department Unsolicited Clyde Nelson, DO 5Bamboo flowsheet [facility] [address] [place] [address] Clyde Nelson, DO 08/04/2025Telephone [facility] [address] [place] [address] Allyssa Da Silva LPN from Last 3 Months Immunizations ImmunizationAdministration DatesNext IafZBQ65Influennadja trammell, intranasal 11/08/2012Tdap05/16/2013 Family History Medical HistoryRelationNameCommentsAsthmaBrother 1Felix MontalvoMental illness Brother 1Felix MontalvoMigrainesBrother 1Felix MontalvoAsthmaBrother 2Nathaniel MontalvoMental illnessFatherAsthmaMotherChristina ShertzerBreast cancerMother Nanette Maldonado 2Mental illnessMotherChristina ShertzerMigrainesMother Nanette ReidheadacheMotherChristina ShertzerAsthmaSisterAlexyia Packer Mental illnessSisterAlexyia MontalvoMigrainesSisterAlexyia MontalvoNo Known [...] relatives?Once a week05/07/2024How often do you attend adventism or sikh services?Never05/07/2024o you belong to any clubs or organizations such as adventism groups, unions, fraternal or athletic groups, or school groups?No 05/07/2024How often do you attend meetings of the clubs or organizations you belong to?Never05/07/2024re you , , , , never , or living with a partner?Living with cojlooi8605/07/2024UDIT-CAnswerDate RecordedQ1: How often do you have a [...] and heating?Not very hard05/07/2024HQ-2AnswerDate RecordedPatient Health Questionnaire-2 Qrqqe592Finbear [facility] [place] of Occupational Health - Occupational Stress QuestionnaireAnswerDate RecordedDo you feel stress - tense, restless, nervous, or anxious, or unable to sleep at night because yourmind is troubled all the time - these days?Only a wbhgut1905/07/2024 Exercise Vital SignAnswerDate RecordedOn average, how many [...] you didn't have money to get more.Never true06/12/2024PRAPARE - TransportationAnswerDate RecordedIn the past 12 months, [...] were you homeless or living in a fpc (including now)?No 05/07/2024CommentsUnknownSex and Gender InformationValueDate RecordedSex Assigned at BirthNot on fileLegal AuvYcewlc83/15/2023 11:16 PM EDTGender IdentityNot on fileSexual OrientationNot on file Last Filed Vital Signs Vital SignReadingTime TakenCommentsBlood Hvbtkbfr901/6012 2:10 PM EST Bhwip5097/01/2025 3:54 PM MQOBiuppcembts24.5 ??C (99.5 ??F)10/26/2025 3:54 PM ESTRespiratory Vgwx812408/13/2024 4:03 PM EDTOxygen Wtnfunqgfb15%10/26/2025 3:54 PM ESTInhaled Oxygen Concentration--Lsauaz36 kg (172 lb)10/27/2025 2:10 PM EST Pwagck269.9 cm (5' 1 )10/26/2025 3:54 PM ESTBody Mass Index32. 3:54 PM EST Plan of Treatment Health MaintenanceDue DateLast DoneCommentsHPV/Ulynhl2801/04/2024Influenza Vaccine (#1)/Postponed from 07/27/2025 (Patient Refused)Cervical Cancer Znzrkkyzn65/19/2026Pap Smear, 2COVID-19 VaccineDiscontinuedPneumococcal Vaccine: Pediatrics (0 to 5 Years) and At-Risk Patients (6 to 64 Years)Aged OutNo longer eligible based on patient's age to complete this topic Goals GoalPatient Goal TypeAssociated ProblemsRecent ProgressPatient-Stated?Author Reminders Care PlanOB RemindersNoOpen Scheduling, Background Procedures Procedure NamePriorityDate/TimeAssociated DiagnosisCommentsPOCT , URINE Fywooay3510/26/2025 4:22 PM EST Missed period STATUS COVID-19/ARKRldqrkz63/01/2025 4:22 PM EST Nasal congestion US PELVIC COMPLETE W/ KDKqmmutc84/29/2025 3:23 PM EDT Missed menses PCOS (polycystic ovarian syndrome) ALL MFVPIVBJKCKOQKLWAWNTVGIbswgmh46/28/2025 4:30 PM EDT ALL ESTRONE(E1)Kusvayv2509/22/2025 4:30 PM EDT TBH QRVDDJVETLjwjpje58/28/2025 4:30 PM EDT ALL TSXMBGKIKIOLYwezoqq05/28/2025 4:30 PM EDT ALL FOLLICLE STIMULATING KBJWURBKipwiay55/28/2025 4:30 PM EDT ALL LUTEINIZING QSWQNIRMspdoji92/28/2025 4:30 PM EDT ALL DHEA MLVIWMIQissubh11/28/2025 4:30 PM EDT ALL THYROXINE (T4) OXXNVknprcy94/28/2025 4:30 PM EDT TBH PREG QUANT OKGWwelzdl04/28/2025 4:30 PM EDT ALL THYROID STIM YJNIASIKgebyjo57/28/2025 4:30 PM EDT ALL CBC WITH AUTO SZRPUotqkna39/28/2025 4:30 PM EDT MLR HEMOGLOBIN J6KGadfnrh84/28/2025 4:30 PM EDT POCT , HBGFFJcgcien71/28/2025 3:33 PM EDT Missed menses PAP OQOPRUtzvzdl51/19/2023 12:00 AM EDTfrom Last 3 Months or Most Recently Relevant to Health Maintenance Results * STATUS COVID-19/FLU (10/26/2025 4:22 PM EST)ComponentValueRef RangeTest Method Analysis TimePerformed AtPathologist SignatureFLU ANegativeFLU BNegativeSARS COV 2 RNANegativeSpecimen (Source)Anatomical Location / LateralityCollection Method / VolumeCollection TimeReceived AddsQyxolbzagrbilj21/01/2025 4:22 PM EST Narrative Authorizing ProviderResult TypeResult StatusBreann Majors NPPOINT OF CARE TEST ENTER/EDIT ORDERABLESFinal Result * POCT , urine (10/26/2025 4:22 PM EST) Only the most recent of2 resultswithin the time period is included. ComponentValueRef RangeTest MethodAnalysis TimePerformed AtPathologist Signature Preg Test, UrNegativeNegativeSpecimen (Source)Anatomical Location / Laterality Collection Method / VolumeCollection TimeReceived YzsyVnsaa50/01/2025 4:22 PM EST Narrative Authorizing ProviderResult TypeResult StatusBreann Majors NPPOINT OF CARE TEST ENTER/EDIT ORDERABLESFinal Result * US Pelvis w/ TV (09/23/2025 3:23 PM EDT)Anatomical RegionLateralityModality PelvisUltrasoundSpecimen (Source)Anatomical Location / LateralityCollection Method / VolumeCollection TimeReceived Time09/23/2025 5:07 PM EDT Impressions 09/24/2025 8:21 AM EDT No intrauterine mass, small amount of endocervical fluid. ?? TRANSCRIBED BY: ? ELECTRONICALLY SIGNED BY: Jd Engle MD Narrative 09/24/2025 8:21 AM EDT FINDINGS: Uterus ? 12.4 x 3.9 x 4.3 cm Endometrium ??7mm Right Ovary ?3.6 x 2.8 x 2.4 cm Left Ovary ?2.5 x 1.5 x 1.3 cm Slight heterogeneous echotexture upper uterine body and fundus. No myometrial mass. Normal endometrium. Small amount of endocervical fluid. Normal follicular ovaries. No adnexal mass or pelvic fluid. Procedure Note Jd Engle MD - 09/24/2025 FINDINGS: Uterus 12.4 x 3.9 x 4.3 cm Endometrium 7mm Right Ovary 3.6 x 2.8 x 2.4 cm Left Ovary 2.5 x 1.5 x 1.3 cm Slight heterogeneous echotexture upper uterine body and fundus. Nomyometrial mass. Normal endometrium. Small amount of endocervical fluid. Normal follicular ovaries. No adnexal mass or pelvic fluid. IMPRESSION: No intrauterine mass, small amount of endocervical fluid. TRANSCRIBED BY: ELECTRONICALLY SIGNED BY: Jd Engle MD Authorizing ProviderResult TypeResult StatusCorey Leslie DOIMG US PROCEDURESFinal Result * (ABNORMAL) TBH PROLACTIN (09/22/2025 4:30 PM EDT)ComponentValueRef RangeTest MethodAnalysis TimePerformed AtPathologist CzxkhmogiOWRNTQJBG75.4(A)4.8 - 33.4 ng/mLTBHSpecimen (Source)Anatomical Location / LateralityCollection Method / VolumeCollection TimeReceived Time09/22/2025 4:30 PM EDT1 4:34 PM EDT Narrative CLINISYNC - 09/24/2025 4:07 AM EDT Authorizing ProviderResult TypeResult StatusCorey Leslie DOCLINISYNCFinal Result Performing OrganizationAddressCity/State/ZIP CodePhone Number CLINISYNC [facility] * [facility] PREG QUANT HCG (09/22/2025 4:30 PM EDT)ComponentValueRef RangeTest Method Analysis TimePerformed AtPathologist SignatureHCG QUANTITATIVE<1mIU/mLTBH Comment: 5-50 ? 0.2-1 WEEK 50-500 ? 1-2 WEEKS 100-5,000 ?2-3 WEEKS 500-10,000 ? 3-4 WEEKS 1,000-50,000 ?? 4-5 WEEKS 10,000-100,000 5-6 WEEKS 15,000-200,000 6-8 WEEKS 10,000-100,000 2-3 MONTHS Specimen (Source)Anatomical Location / LateralityCollection Method / Volume Collection TimeReceived Time09/22/2025 4:30 PM EDT1 5:00 PM EDT Narrative CLINISYNC - 09/22/2025 6:11 PM EDT Authorizing ProviderResult TypeResult StatusCorey Leslie DOCLINISYNCFinal Result Performing OrganizationAddressCity/State/ZIP CodePhone Number [facility] [place] * MLR HEMOGLOBIN A1C (09/22/2025 4:30 PM EDT)ComponentValueRef RangeTest Method Analysis TimePerformed AtPathologist SignatureGLYCOHEMOGLOBIN A1C5.24.5 - 6.2 %TBHComment: ADA RECOMMENDED LIMIT 4.0 - 6.0 ADA THERAPEUTIC TARGET < 7.0 ACTION SUGGESTED > 7.0 ESTIMATED AVERAGE HSNAXBP901ih/dLTBHSpecimen (Source)Anatomical Location / LateralityCollection Method / VolumeCollection TimeReceived Time09/22/2025 4:30 PM EDT1 4:34 PM EDT Narrative CLINISYNC - 09/22/2025 4:48 PM EDT Authorizing ProviderResult TypeResult StatusCorey Leslie DOCLINISYNCFinal Result Performing OrganizationAddPunxsutawney Area Hospitalty/State/ZIP CodePhone Number [facility] [place] * ALL THYROXINE (T4) FREE (09/22/2025 4:30 PM EDT)ComponentValueRef RangeTest MethodAnalysis TimePerformed AtPathologist SignatureFREE T41.060.76 - 1.46 ng/dLTBHSpecimen (Source)Anatomical Location / LateralityCollection Method / VolumeCollection TimeReceived Time09/22/2025 4:30 PM EDT1 4:34 PM EDT Narrative CLINISYNC - 09/22/2025 7:22 PM EDT Authorizing ProviderResult TypeResult StatusCorey Leslie DOCLINISYNCFinal Result Performing OrganizationAddPunxsutawney Area Hospitalty/State/ZIP CodePhone Number [facility] [place] * ALL THYROID STIM HORMONE (09/22/2025 4:30 PM EDT)ComponentValueRef RangeTest MethodAnalysis TimePerformed AtPathologist SignatureTHYROID STIMULATING HORMONE2.6100.358 - 3.740 uIU/mLTBHSpecimen (Source)Anatomical Location / LateralityCollection Method / VolumeCollection TimeReceived Time09/22/2025 4:30 PM EDT1 5:00 PM EDT Narrative CLINISYNC - 09/22/2025 6:11 PM EDT Authorizing ProviderResult TypeResult StatusCorey Leslie DOCLINISYNCFinal Result Performing OrganizationAddressCity/State/ZIP CodePhone Number [facility]INIS[facility]NC [facility] * ALL PROGESTERONE (09/22/2025 4:30 PM EDT)ComponentValueRef RangeTest Method Analysis TimePerformed AtPathologist SignaturePROGESTERONE0.2. ng/mLTBH Comment: ? Follicular phase ? 0.1 - ?? 0.9 ? Luteal phase ? 1.8 - ??23.9 ? Ovulation phase ?0.1 - ??12.0 ?First trimester ?11.0 - ??44.3 ?Second trimester ?? 25.4 - ??83.3 ?Third trimester ?58.7 - 214.0 ? Postmenopausal ? 0.0 - ?? 0.1 Performed at: ??CB - [facility] [address] [facility], [place], [place] ??[id number] Automotive Sales Associate: Angel Vinson PhD, Phone: ??[phone] Specimen (Source)Anatomical Location / LateralityCollection Method / Volume Collection TimeReceived Time09/22/2025 4:30 PM EDT1 4:34 PM EDT Narrative CLINISYNC - 09/24/2025 4:07 AM EDT Authorizing ProviderResult TypeResult StatusCorey Leslie DOCLINISYNCFinal Result Performing OrganizationAddressCity/State/ZIP CodePhone Number [facility]NC [facility] * ALL LUTEINIZING HORMONE (09/22/2025 4:30 PM EDT)ComponentValueRef RangeTest MethodAnalysis TimePerformed AtPathologist SignatureLUTEINIZING HORMONE(LH) 37.3. mIU/mLTBHComment: ? Adult Female ?Range ?Follicular phase ?2.4 - ??12.6 ?Ovulation phase ?14.0 - ??95.6 ?Luteal phase ?1.0 - ??11.4 ?Postmenopausal ?7.7 - ??58.5 Specimen (Source)Anatomical Location / LateralityCollection Method / Volume Collection TimeReceived Time09/22/2025 4:30 PM EDT1 4:34 PM EDT Narrative CLINISYNC - 09/24/2025 4:07 AM EDT Authorizing ProviderResult TypeResult StatusCorey Leslie DOCLINISYNCFinal Result Performing OrganizationAddressCity/State/ZIP CodePhone Number CLINIS[facility]NC [facility] * ALL FOLLICLE STIMULATING HORMONE (09/22/2025 4:30 PM EDT)ComponentValueRef RangeTest MethodAnalysis TimePerformed AtPathologist SignatureFSH5.1. mIU/mL TBHComment: ? Adult Female ? Range ?Follicular phase ?3.5 - ??12.5 ?Ovulation phase ? 4.7 - ??21.5 ?Luteal phase ?1.7 - ?? 7.7 ?Postmenopausal ? 25.8 - 134.8 Specimen (Source)Anatomical Location / LateralityCollection Method / Volume Collection TimeReceived Time09/22/2025 4:30 PM EDT1 4:34 PM EDT Narrative CLINISYNC - 09/24/2025 4:07 AM EDT Authorizing ProviderResult TypeResult StatusCorey Leslie DOCLINISYNCFinal Result Performing OrganizationAddressCity/State/[facility] CodePhone Number CLINISYNC [facility] * ALL ESTRONE(E1) (09/22/2025 4:30 PM EDT)ComponentValueRef RangeTest Method Analysis TimePerformed AtPathologist JjsoakplcOFHEBTSOO054.0. pg/mLTBHComment: ? Adult Female ? Range ?Follicular phase ? 12.5 - 166.0 ?Ovulation phase ?85.8 - 498.0 ?Luteal phase ? 43.8 - 211.0 Postmenopausal <6.0 - 54.7 ? 1st trimester 215.0 - >4300.0 Liana ECLIA methodology Specimen (Source)Anatomical Location / LateralityCollection Method / Volume Collection TimeReceived Time09/22/2025 4:30 PM EDT1 4:34 PM EDT Narrative CLINISYNC - 09/24/2025 4:07 AM EDT Authorizing ProviderResult TypeResult StatusCorey Leslie DOCLINISYNCFinal Result Performing OrganizationAddressty/State/ZIP CodePhone Number CLINSELECT [facility] [place] * (ABNORMAL) ALL DHEA SULFATE (09/22/2025 4:30 PM EDT)ComponentValueRef Range Test MethodAnalysis TimePerformed AtPathologist SignatureDHEA-IAWVCEP085.0(A) 84.8 - 378.0 ug/dLTBHSpecimen (Source)Anatomical Location / Laterality Collection Method / VolumeCollection TimeReceived Time09/22/2025 4:30 PM EDT 09/22/2025 4:34 PM EDT Narrative CLINISYNC - 09/24/2025 4:07 AM EDT Authorizing ProviderResult TypeResult StatusCorey Lselie DOCLINISYNCFinal Result Performing OrganizationAddressCity/State/ZIP CodePhone Number CLINISYWV [facility] * ALL DEHYDROEPIANDROSTERONE (09/22/2025 4:30 PM EDT)ComponentValueRef RangeTest MethodAnalysis TimePerformed AtPathologist SignatureDHEA, [id number] - 701 ng/dLTBHComment: This test was developed and its performance characteristics determined by [facility]. It has not been cleared or approved by the Food and Drug Administration. Performed at: ?? - [facility] ??[id number] Automotive Sales Associate: Ayo Reynolds MD, Phone: ??[phone] Specimen (Source)Anatomical Location / LateralityCollection Method / Volume Collection TimeReceived Time09/22/2025 4:30 PM EDT1 4:34 PM EDT Narrative CLINISYNC - 10/03/2025 4:08 AM EST Authorizing ProviderResult TypeResult StatusCorey Leslie DOCLINISYNCFinal Result Performing OrganizationAddressCity/State/ZIP CodePhone Number CLINISYNC [facility] * (ABNORMAL) ALL CBC WITH AUTO DIFF (09/22/2025 4:30 PM EDT)ComponentValueRef RangeTest MethodAnalysis TimePerformed AtPathologist SignatureTBH WBC9.34.0 - 11.0 10 3/uLTBHTBH RBC4.644.20 - 5.40 10 6/uLTBHTBH HGB13.812.0 - 16.0 g/dLTBH TBH HCT41.436.0 - 48.0 %TBHTBH MCV89.281.0 - 99.0 fLTBHTBH MCH29.726.7 - 34.0 pgTBHTBH MCHC33.329.9 - 35.2 g/dLTBHTBH RDW12.711.0 - 15.0 %TBHTBH CVQ978810 - 450 10 3/uLTBHTBH MPV10.39.5 - 13.5 fLTBHNEUTROPHILS PERCENT AUTO65.343.0 - 75.0 %TBHLYMPHOCYTES PERCENT AUTO26.520.5 - 60.0 %TBHMONOCYTES PERCENT AUTO6.5 1.7 - 12.0 %TBHTBH EO %1.10.9 - 7.0 %TBHBASOPHILS PERCENT AUTO0.20.2 - 2.0 % TBHIMMATURE GRANULOCYTES PCT AUTO0.40.0 - 0.5 %TBHNEUTROPHILS ABSOLUTE AUTO6.1 1.4 - 6.5 10 3/uLTBHLYMPHOCYTES ABSOLUTE AUTO2.51.2 - 3.8 10 3/uLTBHMONOCYTES ABSOLUTE AUTO0.60.3 - 0.8 10 3/uLTBHTBH EO #0.10.0 - 0.7 10 3/uLTBHBASOPHILS ABSOLUTE AUTO0.00.0 - 0.1 10 3/uLTBHIMMATURE GRANULOCYTES ABS AUTO0.04(H)0.00 - 0.03 10 3/uLTBHSpecimen (Source)Anatomical Location / LateralityCollection Method / VolumeCollection TimeReceived Time09/22/2025 4:30 PM EDT1 4:34 PM EDT Narrative CLINISYNC - 09/22/2025 4:59 PM EDT Authorizing ProviderResult TypeResult StatusCorey Leslie DOCLINISYNCFinal Result Performing OrganizationAddressCity/State/ZIP CodePhone Number CLINISYNC [facility] * Pap Smear (06/13/2023 12:00 AM EDT)Specimen (Source)Anatomical Location / LateralityCollection Method / VolumeCollection TimeReceived TimeSwabCervical swab / Unknown Narrative Authorizing ProviderResult TypeResult StatusHistorical Provider STEF CYTOLOGY ORDERABLESFinal ResultPerforming OrganizationAddressCity/State/ZIP CodePhone Number EXTERNAL LAB from Last 3 Months or Most Recently Relevant to Health Maintenance Additional Health Concerns Active ProblemsNoted DateDiagnosed DateOB Hxamdscrz42/03/2025 Insurance Care Teams Team MemberRelationshipSpecialtyStart DateEnd Jamila Velez MD [address] [place] [address] [facility] - [facility] Quynh Vasquez PA [address] [place] [address] [place] [address] PCP - [facility]02/25/24
--- OUTSIDE RECORDS SUMMARY | 2025-10-27 19:04 | XMS_ITS | Encounter Summary ---
Author Organization [facility] Healthcare Address [address] [place] [address] Care Team Providers Care Accounts Payable Manager Name Role Phone Jamila Velez MD Primary Care Provider [phone] Quynh Vasquez Unavailable Encounter Details DateTypeDepartmentCare Team (Latest Contact Info)Humhaqbzmhw20/01/2025Travel Social History Tobacco UseTypesPacks/DayYears UsedDateSmoking Tobacco: NeverSmokeless Tobacco: NeverAlcohol UseStandard Drinks/WeekCommentsNever0 (1 standard drink = 0.6 oz pure alcohol)Caffeine: noneSocial Connection and Isolation PanelAnswerDate RecordedIn a typical week, how many times do you talk on the phone with family, friends, or neighbors?Once a week05/07/2024How often do you get together with friends or relatives?Once a week05/07/2024How often do you attend taoism or anabaptist services?Never4Do you belong to any clubs or organizations such as taoism groups, unions, fraternal or athletic groups, or school groups?No 05/07/2024How often do you attend meetings of the clubs or organizations you belong to?Never05/07/2024re you , , , , never , or living with a partner?Living with liydmai3305/07/2024UDIT-CAnswerDate RecordedQ1: How often do you have a [...] and heating?Not very hard05/07/2024HQ-2AnswerDate RecordedPatient Health Questionnaire-2 Czjhr343FinR[facility] of Occupational Health - Occupational Stress QuestionnaireAnswerDate RecordedDo you feel stress - tense, restless, nervous, or anxious, or unable to sleep at night because yourmind is troubled all the time - these days?Only a trflrf3005/07/2024 Exercise Vital SignAnswerDate RecordedOn average, how many [...] living in a care home (including now)?No 05/07/2024CommentsUnknownSex and Gender InformationValueDate RecordedSex Assigned at BirthNot on fileLegal IcgRjyplr46/15/2023 11:16 PM EDTGender IdentityNot on fileSexual OrientationNot on filedocumented as of this encounter Plan of Treatment Not on file documented as of this encounter Goals GoalPatient Goal TypeAssociated ProblemsRecent ProgressPatient-Stated?Author Reminders Care PlanOB RemindersNoOpen Scheduling, Backgrounddocumented as of this encounter Visit Diagnoses Not on filedocumented in this encounter Additional Health Concerns Active ProblemsNoted DateDiagnosed DateOB Skwuemmzg10/03/2025 documented as of this encounter Care Teams Team MemberRelationshipSpecialtyStart DateEnd Date Jamila Velez MD [address] [place] [address] P[facility]04/03/23 Quynh Vasquez PA [address] [place] [address] [place] [address] PCP - [facility]02/25/24documented as of this encounter
--- OUTSIDE RECORDS SUMMARY | 2025-10-27 19:04 | XMS_ITS | Encounter Summary ---
Author Organization [facility] Address [address] [place] [address] Care Team Providers Care Dynamics Ax Developer Name Role Phone Jamila Velez MD Primary Care Provider [phone] Quynh Vasquez Unavailable Encounter Details DateTypeDepartmentCare Team (Latest Contact Info)Emicyhzxmfc54/01/2025[facility]amboo [facility] [address] [place] [address] Melvi Nielson NP [address], [place] [id number] Social History Tobacco UseTypesPacks/DayYears UsedDateSmoking Tobacco: NeverSmokeless Tobacco: NeverAlcohol UseStandard Drinks/WeekCommentsNever0 (1 standard drink = 0.6 oz pure alcohol)Caffeine: noneSocial Connection and Isolation PanelAnswerDate RecordedIn a typical week, how many times do you talk on the phone with family, friends, or neighbors?Once a week05/07/2024How often do you get together with friends or relatives?Once a week05/07/2024How often do you attend sabianism or anabaptist services?Never4Do you belong to any clubs or organizations such as sabianism groups, unions, fraternal or athletic groups, or school groups?No 05/07/2024How often do you attend meetings of the clubs or organizations you belong to?Never05/07/2024re you , , , , never , or living with a partner?Living with xuhowmd9205/07/2024UDIT-CAnswerDate RecordedQ1: How often do you have a [...] and heating?Not very hard05/07/2024HQ-2AnswerDate RecordedPatient Health Questionnaire-2 [id number] [place] [facility] - Occupational Stress QuestionnaireAnswerDate RecordedDo you feel stress - tense, restless, nervous, or anxious, or unable to sleep at night because yourmind is troubled all the time - these days?Only a dzgeut9605/07/2024 Exercise Vital SignAnswerDate RecordedOn average, how many [...] were you homeless or living in a long term (including now)?No 4CommentsUnknownSex and Gender InformationValueDate RecordedSex Assigned at BirthNot on fileLegal XcbZtudvr36/15/2023 11:16 PM EDTGender IdentityNot on fileSexual OrientationNot on filedocumented as of this encounter Plan of Treatment Not on file documented as of this encounter Goals GoalPatient Goal TypeAssociated ProblemsRecent ProgressPatient-Stated?Author Reminders Care PlanOB RemindersNoOpen Scheduling, Backgrounddocumented as of this encounter Visit Diagnoses Not on filedocumented in this encounter Additional Health Concerns Active ProblemsNoted DateDiagnosed DateOB Yyzlstjds70/03/2025 documented as of this encounter Care Teams Team MemberRelationshipSpecialtyStart DateEnd Date Jamila Velez MD [address] [place] [address] [facility] - [facility] Quynh Vasquez PA [address] [place] [address] [place] [address] PCP - [facility]02/25/24documented as of this encounter
== END 2025-10-27 18:59 | disposition home or self-care (01) ==
LOC: LAB 18:58
PROVIDERS: Visit Provider Obstetrics & Gynecology
DX: Z01.419 Encounter for gynecological examination (general) (routine) without abnormal findings (principal)
CPT/HCPCS: 87624; 88175